=== PATIENT | male | born 1970 | race Caucasian/White ===

== ENCOUNTER 2022-11-14 11:43 | Outpatient (OUT) | payer BC, SELFPAY ==
--- NOTE | 2022-11-14 12:08 | XR_ITS ---
The [address] [address] Patient Name: ELYSSA DAVIS MRN: [id number] date: 1970 Sex: M Assigned Patient Location: LAB Current Patient Location: LAB Accession/Order Number: [id number] Exam Date: 11/14/2022 12:12 Report Date: 11/14/2022 14:52 At the request of: KONRAD JUNE Procedure: XR abdomen 1V EXAM: XR abdomen 1V HISTORY: Kidney Stone N20.0 COMPARISON: None. TECHNIQUE: AP view of the abdomen. FINDINGS: Nonobstructive bowel gas pattern is noted. There is a 10 mm calculus projecting over the left kidney region. The osseous structures are intact. IMPRESSION: Nonobstructive bowel gas pattern. Probable left nephrolithiasis. Electronically authenticated by: HARSH WALKER Date: 11/14/2022 14:52
[2022-11-14 14:24] LABS: Calcium 8.6 mg/dL (8.5-10.1); Carbon Dioxide 28.7 mmol/L (21.0-32.0); Chloride 103 mmol/L (98-107); Estimated GFR (African America >60 (>=60); Estimated GFR (Non-African Ame >60 (>=60); Potassium 4.5 mmol/L (3.5-5.1); Sodium 139 mmol/L (136-145)
[2022-11-15 12:09] LABS: PTH, Intact 40 pg/mL (15-65)
== END 2022-11-14 11:44 ==
LOC: LAB 11:46
PROVIDERS: PCP Internal Medicine; Visit Provider Urology
DX: N20.0 Calculus of kidney (principal)
CPT/HCPCS: 36415; 74018; 82310; 82374; 82435; 82565; 83970; 84132; 84295; 84520; 84550

== ENCOUNTER 2022-12-12 22:38 | Emergency (ER) | payer BC, SELFPAY ==
[2022-12-12] VITALS (7 sets, daily range): BP systolic 157–178; BP diastolic 88–103; PULSE 73–86; RESP 16–21; TEMP 36.6; O2SAT 94–97; BMI 41.5
--- NOTE | 2022-12-12 23:42 | ED.DIZZY1 ---
HPI - Dizziness General Chief Complaint: Dizziness Stated Complaint: DIZZY Time Seen by Provider: 12/12/22 23:37 Source: patient Mode of arrival: ambulance Limitations: no limitations History of Present Illness HPI Narrative: sudden onset spinning sensation around 9pm. When it did not go away after an hour or so, his partner later decided to have the patient come to the ED by ambulance and he arrived around 1035pm to our facility. He has some nausea. He keeps his eyes closed because the sensation of spinning is worse when his eyes are open. No recent injury to the head. No recent URI symptoms. He has never had vertigo or dizziness this intesne Related Data Home Medications Medication Instructions Recorded Confirmed carvedilol 25 mg tablet 25 mg PO Q12H 12/12/22 12/12/22 semaglutide 2 mg/dose (8 mg/3 mL) 2 mg subcut .weekly 12/12/22 12/12/22 subcutaneous pen injector (Ozempic) Allergies Allergy/AdvReac Type Severity Reaction Status Date / Time No Known Drug Allergies Allergy Verified 12/12/22 22:42 [facility] Social History Smoking status: Never smoker Exam Narrative Exam Narrative: Nurses notes and vital signs reviewed and patient is not hypoxic. afebrile General: Well-appearing and in no apparent distress. Skin: Warm, dry, no pallor noted. No rash. Head: Normocephalic, atraumatic. Neck: Supple, non-tender. Eye: Pupils are equal, round and EOMI. Horizontal nystagmus noted. Ears, Nose, Mouth, and Throat: TM are clear, no nasal mucosal hypertrophy. Oral mucosa is moist, no posterior oropharynx erythema, uvula is mid-line Cardiovascular: Regular Rate and Rhythm without murmur, gallop or rub. Respiratory: No accessory muscle use or respiratory distress. Lungs are clear to auscultation, no wheezing, rales or rhonchi Musculoskeletal: normal ROM, no calf or popliteal tenderness, no lower extremity edema/swelling GI: Abdomen is soft, non-distended. Normal bowel sounds. No tenderness to palpation. No rebound, guarding, or rigidity noted. Neurological: A&O x4. No cranial nerve dysfunction observed. Mild truncal ataxia. Moves all extremities. Sensation intact. NIH score is ZERO Psychiatric: Cooperative and interactive. Normal mood and affect. Constitutional Vital Signs - 24 hr 12/12/22 22:39 12/12/22 23:19 12/12/22 23:20 Temperature 97.9 F Pulse Rate 78 79 Pulse Rate [Monitor] 86 Respiratory Rate 16 21 Blood Pressure Blood Pressure [Left Arm] 160/103 H Pulse Oximetry 97 95 95 Oxygen Delivery Method Room Air 12/12/22 23:28 12/12/22 23:29 12/12/22 23:30 Temperature Pulse Rate 76 86 74 Pulse Rate [Monitor] Respiratory Rate Blood Pressure 178/101 H 170/100 H Blood Pressure [Left Arm] Pulse Oximetry 96 96 96 Oxygen Delivery Method 12/12/22 23:45 12/13/22 00:00 12/13/22 00:00 Temperature Pulse Rate 73 72 74 Pulse Rate [Monitor] Respiratory Rate Blood Pressure 157/88 H 152/89 H 152/89 H Blood Pressure [Left Arm] Pulse Oximetry 94 L 96 95 Oxygen Delivery Method 12/13/22 00:15 12/13/22 00:30 12/13/22 00:45 Temperature Pulse Rate 78 77 Pulse Rate [Monitor] Respiratory Rate Blood Pressure 144/85 H 144/88 H 149/84 H Blood Pressure [Left Arm] Pulse Oximetry 96 94 L Oxygen Delivery Method 12/13/22 00:45 12/13/22 01:02 12/13/22 01:10 Temperature Pulse Rate 82 74 Pulse Rate [Monitor] Respiratory Rate Blood Pressure 149/84 H Blood Pressure [Left Arm] Pulse Oximetry 95 95 Oxygen Delivery Method 12/13/22 01:15 12/13/22 01:15 12/13/22 01:15 Temperature Pulse Rate 80 72 107 H Pulse Rate [Monitor] Respiratory Rate Blood Pressure 161/89 H 161/89 H Blood Pressure [Left Arm] Pulse Oximetry 94 L 95 98 Oxygen Delivery Method 12/13/22 01:30 12/13/22 02:01 12/13/22 02:10 Temperature Pulse Rate 85 82 Pulse Rate [Monitor] Respiratory Rate Blood Pressure 176/102 H Blood Pressure [Left Arm] Pulse Oximetry 95 96 Oxygen Delivery Method 12/13/22 02:15 12/13/22 02:16 12/13/22 02:31 Temperature Pulse Rate 77 73 78 Pulse Rate [Monitor] Respiratory Rate Blood Pressure 162/89 H 160/94 H Blood Pressure [Left Arm] Pulse Oximetry 96 96 95 Oxygen Delivery Method Course Vital Signs Vital signs: Vital Signs Temperature 97.9 F 12/12/22 22:39 Pulse Rate 86 12/12/22 22:39 Respiratory Rate 16 12/12/22 22:39 Blood Pressure 160/103 H 12/12/22 22:39 Pulse Oximetry 97 12/12/22 22:39 Oxygen Delivery Method Room Air 12/12/22 22:39 Temperature 97.9 F 12/12/22 22:39 Pulse Rate 78 12/13/22 02:31 Respiratory Rate 21 12/12/22 23:19 Blood Pressure 160/94 H 12/13/22 02:31 Pulse Oximetry 95 12/13/22 02:31 Oxygen Delivery Method Room Air 12/12/22 22:39 MDM - Dizziness MDM Narrative Medical decision making narrative: The patient presented with acute onset of vertigo - intense sensation of spinning that began around 9 PM tonight. Exam showed horizontal nystagmus. He had no neurological deficit. Patient was placed on cardiac nurse and EKG obtained. Blood drawn and sent for evaluation. he was ordered to receive IV Valium, IV Solu-Medrol and IV Zofran. he developed a headache and was sent for CT scanning of the brain. The initial treatment with Valium, Solu-Medrol and Zofran had no effect. He was ordered to receive IV Dilaudid and IV Toradol. The radiologist called to tell me that he noted an area suggestive of an acute left superior cerebellar infarct. call was placed to the stroke team at [facility]. case was discussed with Dr. Lo. he reviewed the non contrast head CT and asked if we could get CT angio head and neck on this patient. Patient and his partner informed of our findings and my discussion with [facility] stroke physician. Phenergan given for nausea when it returned around 0130 CTA head and neck were performed and the same radiologist called to tell me that the patient has a dissection of the left vertebral artery. Call placed once again to the stroke team at [facility] to share this finding. I once again spoke with Dr Raymundo and he reviewed the CT scans. He accepted the patient to be transferred to their facility. he asked that we load the patient with aspirin 325mg and plavix 300mg. . Lab Data Attestation: I reviewed the patient's lab results. Labs: Lab Results 12/12/22 Range/Units 23:16 WBC 11.8 H (4.0-11.0) 10^3/uL RBC 5.21 (4.70-6.10) 10^6/uL Hgb 14.3 (14.0-18.0) g/dL Hct 45.9 (42.0-54.0) % MCV 88.1 (80.0-94.0) fL MCH 27.4 (25.9-34.0) pg MCHC 31.2 (29.9-35.2) g/dL RDW 13.4 (11.0-15.0) % Plt Count 272 (150-450) 10^3/uL MPV 10.0 (9.5-13.5) fL Neut % (Auto) 83.6 H (43.0-75.0) % Lymph % (Auto) 11.6 L (20.5-60.0) % [place] % (Auto) 4.0 (1.7-12.0) % Eos % (Auto) 0.3 L (0.9-7.0) % Baso % (Auto) 0.2 (0.2-2.0) % Neut # (Auto) 9.9 H (1.4-6.5) 10^3/uL Lymph # (Auto) 1.4 (1.2-3.8) 10^3/uL [place] # (Auto) 0.5 (0.3-0.8) 10^3/uL Eos # (Auto) 0.0 (0.0-0.7) 10^3/uL Baso # (Auto) 0.0 (0.0-0.1) 10^3/uL Abs Immat Gran (auto) 0.03 (0.00-0.03) 10^3/uL Imm/Tot Granulo (auto) 0.3 (0.0-0.5) % Sodium 138 (136-145) mmol/L Potassium 4.6 (3.5-5.1) mmol/L Chloride 108 H (98-107) mmol/L Carbon Dioxide 25.1 (21.0-32.0) mmol/L Anion Gap 9.5 BUN 15.0 (7.0-18.0) mg/dL Creatinine 1.09 (0.70-1.30) mg/dL Est GFR ( Amer) >60 (>=60) Est GFR (Non-Af Amer) >60 (>=60) BUN/Creatinine Ratio 13.8 Glucose 140 H (74-106) mg/dL Calcium 9.0 (8.5-10.1) mg/dL Total Bilirubin 0.3 (0.2-1.0) mg/dL AST 18 (15-37) U/L ALT 22 (16-63) U/L Alkaline Phosphatase 92 (46-116) U/L Total Protein 7.7 (6.4-8.2) g/dL Albumin 3.7 (3.4-5.0) g/dL Globulin 4.0 g/dL Albumin/Globulin Ratio 0.[address] scan - head: Attestation: I have reviewed the pertinent imaging results. Radiologist's impression: Patient Name: ELYSSA DAVIS MRN: [id number] date: 1970 Sex: M Assigned Patient Location: ER Current Patient Location: ER Accession/Order Number: [id number] Exam Date: 12/13/2022 00:54 Report Date: 12/13/2022 01:15 At the request of: WALT SILVA Procedure: CT head/brain wo con INDICATION: 52 years old; Male. Vertigo and headache for 2 hours. TECHNIQUE: CT Head (ax/cor/sag reformats). Ionizing radiation dose reduced via iterative reconstruction/FBP blend and body size kV/mA adjustment. Comparison: None FINDINGS: POSTOPERATIVE CHANGES: None. BRAIN PARENCHYMA: There is low-density present in the left cerebellum in the distal localized mass effect is seen. No midline shift or herniation is seen. Normal royal/white differentiation. VENTRICLES/EXTRA-AXIAL SPACES: Normal for patient's age. SINUSES/MASTOIDS: The visualized sinuses are clear. Mastoid air cells are clear. MSK: No displaced or depressed calvarial fracture is noted. OTHER: No hyperdense intraluminal thrombus is seen. IMPRESSION: 1. Low-density in the distribution of the left superior cerebellar artery. The appearance is consistent with an area of acute infarction. Recommend further evaluation with MRI including diffusion imaging for confirmation. A telephone call regarding the findings in examination was made to and acknowledged by Dr. Silva in the emergency department at 1:10 AM on 12/13/2022. Electronically authenticated by: CHAPO ALCANTARA Date: 12/13/2022 01:15 cta head: Radiologist's impression: Patient Name: ELYSSA DAVIS MRN: [id number] date: 1970 Sex: M Assigned Patient Location: ER Current Patient Location: Accession/Order Number: [id number] Exam Date: 12/13/2022 01:40 Report Date: 12/13/2022 02:46 At the request of: WALT SILVA Procedure: CT angio head CT angio head, CT angio neck INDICATION:52 years old; left superior cerebellar artery infarct TECHNIQUE: CT angiogram of the head and neck was performed. Coronal, sagittal and 3-D reformats were created and reviewed. IV contrast Omnipaque 350 100mL. No complications . Carotid stenosis measurements were made according to the NASCET criteria. Ionizing radiation dose reduced via iterative reconstruction/FBP blend and body size kV/mA adjustment. COMPARISON: Noncontrast head CT performed prior to this examination. There are artifacts which obscure visualization of the origins of the vessels from the arch as well as the proximal portions of the carotid and vertebral arteries. Distal intracranial opacification is suboptimal. FINDINGS: NECK FINDINGS: AORTIC ARCH: Normal origin of the innominate, left common carotid and left subclavian arteries. ANTERIOR CIRCULATION: The carotid arteries are patent. Carotid bifurcations are patent. Cervical ICA are patent up to the skull base. No stenosis or thrombus is seen. No dissection is noted. POSTERIOR CIRCULATION: The left vertebral artery appears to arise directly from the aortic arch. The vessel demonstrates incomplete opacification with areas of occlusion and reconstitution throughout the V1, V2, and V3 segments. This finding is consistent with carotid dissection. The distal V3 segment and V4 segments are occluded. Allowing for artifacts, there is question of focal stenosis of the origin of the right vertebral artery. However, the distal V1, V2, and V3 segments are patent. DEVELOPMENTAL ANOMALIES: None. OTHER: No thyroid nodule or adenopathy. HEAD BRAIN: Please see the report of the noncontrast head CT demonstrating the left superior cerebellar artery infarct. ANTERIOR CIRCULATION: The intrapetrous, intracavernous, supraclinoid ICA are patent. CHRIS patent bilaterally. MCA patent bilaterally. No stenosis or thrombus. No aneurysm. No large vessel occlusion. Distal distributions are bilaterally symmetric. POSTERIOR CIRCULATION: Proximal left V4 segment is occluded. There is reconstitution in the distal V4 segment, consistent with retrograde filling. However, the left PICA is nonopacified. The right V4 segment is patent. Right PICA patent. Basilar artery and basilar tip are patent. SCA patent on the right. There is visualization of the proximal ICA on the left, however this appears distally occluded. P2 segments are patent. There is hypoplasia of the P1 segment on the left with additional filling from the ipsilateral posterior communicating artery. The peak CCA appear patent bilaterally. However, distal opacification is suboptimal. DEVELOPMENTAL ANOMALIES: Hypoplastic P1 segment on the left with increased contribution to the left posterior communicating artery. OTHER: The superior cerebellar artery infarct on the left is better visualized in the noncontrast study. No pathologic enhancement is seen. IMPRESSION: 1. Left vertebral artery arises directly from the aortic arch. There is evidence of dissection with intermittent opacification and occlusion of the left vertebral artery extracranially extending into the V4 segment proximally. There is contrast within the distal V4 segment on the left, most consistent with retrograde filling. Left PICA is nonvisualized. Allowing for artifacts, question stenosis origin right vertebral artery. 3. Left SCA is filled proximally but occluded distally. 4. Anterior circulation is patent. A telephone call regarding the findings in examination was made to and acknowledged by Dr. Silva in emergency department at 2:45 AM on 12/13/2022. Electronically authenticated by: CHAPO ALCANTARA Date: 12/13/2022 02:46 ECG Data Interpretation: EKG interpretation: Emergency Department physician interpretation. Normal sinus rhythm at 72bpm. Normal axis, normal intervals and no ST segment elevation or depression. Normal EKG Critical Care Time Critical Care Time Critical Care Time: Yes Total Critical Care Time: 55 Attestation: spent independent of any procedures and includes time reviewing results, talking with the radiologist, stroke team, patient and significant other and monitoring the patient's condition. Discharge Plan Discharge Chief Complaint: Dizziness Clinical Impression: Vertebral artery dissection, Vertigo, Cerebrovascular accident Patient Disposition: [facility] Time of Disposition Decision: 02:52 Discharge Location: [facility]
[2022-12-12 23:51] LABS: Basophils Percent Auto 0.2 % (0.2-2.0); Eosinophils Percent Auto 0.3 % (0.9-7.0); Hematocrit 45.9 % (42.0-54.0); Hemoglobin 14.3 g/dL (14.0-18.0); Immature Granulocytes Abs Auto 0.03 10^3/uL (0.00-0.03); Immature Granulocytes Pct Auto 0.3 % (0.0-0.5); Lymphocytes Absolute Auto 1.4 10^3/uL (1.2-3.8); Lymphocytes Percent Auto 11.6 % (20.5-60.0); Mean Corpuscular HGB Conc 31.2 g/dL (29.9-35.2); Mean Corpuscular Hemoglobin 27.4 pg (25.9-34.0); Mean Corpuscular Volume 88.1 fL (80.0-94.0); Monocytes Absolute Auto 0.5 10^3/uL (0.3-0.8); Neutrophils Absolute Auto 9.9 10^3/uL (1.4-6.5); Neutrophils Percent Auto 83.6 % (43.0-75.0); Platelet Count 272 10^3/uL (150-450); Red Blood Count 5.21 10^6/uL (4.70-6.10); Red Cell Distribution Width 13.4 % (11.0-15.0); White Blood Count 11.8 10^3/uL (4.0-11.0)
[2022-12-12 23:57] LABS: Alanine Aminotransferase 22 U/L (16-63); Albumin Globulin Ratio 0.9; Albumin Level 3.7 g/dL (3.4-5.0); Alkaline Phosphatase 92 U/L (46-116); Anion Gap 9.5; Aspartate Amino Transferase 18 U/L (15-37); BUN Creatinine Ratio 13.8; Bilirubin Total 0.3 mg/dL (0.2-1.0); Carbon Dioxide 25.1 mmol/L (21.0-32.0); Chloride 108 mmol/L (98-107); Estimated GFR (African America >60 (>=60); Estimated GFR (Non-African Ame >60 (>=60); Glucose 140 mg/dL (74-106); Potassium 4.6 mmol/L (3.5-5.1); Sodium 138 mmol/L (136-145); Total Protein 7.7 g/dL (6.4-8.2)
[2022-12-13] VITALS (40 sets, daily range): BP systolic 132–180; BP diastolic 84–126; PULSE 72–107; RESP 17–24; O2SAT 90–98
[2022-12-13] MEDS: DIAZEPAM 5 MG/ML - 2 ML INJ SYRINGE 2 MG IV (00:02)
[2022-12-13] MEDS: METHYLPREDNISOLONE SOD SUCC PF 125 MG/2 ML VIAL IVP (00:02)
[2022-12-13] MEDS: ONDANSETRON PF 4 MG/2 ML VIAL IV ×2 (00:02→07:23)
--- NOTE | 2022-12-13 00:33 | CT_ITS ---
The [address] [address] Patient Name: ELYSSA DAVIS MRN: [id number] date: 1970 Sex: M Assigned Patient Location: ER Current Patient Location: ER Accession/Order Number: [id number] Exam Date: 12/13/2022 00:54 Report Date: 12/13/2022 01:15 At the request of: WALT SILVA Procedure: CT head/brain wo con INDICATION: 52 years old; Male. Vertigo and headache for 2 hours. TECHNIQUE: CT Head (ax/cor/sag reformats). Ionizing radiation dose reduced via iterative reconstruction/FBP blend and body size kV/mA adjustment. Comparison: None FINDINGS: POSTOPERATIVE CHANGES: None. BRAIN PARENCHYMA: There is low-density present in the left cerebellum in the distal localized mass effect is seen. No midline shift or herniation is seen. Normal royal/white differentiation. VENTRICLES/EXTRA-AXIAL SPACES: Normal for patient's age. SINUSES/MASTOIDS: The visualized sinuses are clear. Mastoid air cells are clear. MSK: No displaced or depressed calvarial fracture is noted. OTHER: No hyperdense intraluminal thrombus is seen. IMPRESSION: 1. Low-density in the distribution of the left superior cerebellar artery. The appearance is consistent with an area of acute infarction. Recommend further evaluation with MRI including diffusion imaging for confirmation. A telephone call regarding the findings in examination was made to and acknowledged by Dr. Silva in the emergency department at 1:10 AM on 12/13/2022. Electronically authenticated by: CHAPO ALCANTARA Date: 12/13/2022 01:15
[2022-12-13] MEDS: KETOROLAC TROMETHAMINE 30 MG/ML VIAL IVP (00:48)
[2022-12-13] MEDS: HYDROMORPHONE HCL 2 MG/ML VIAL 1 MG IV ×2 (00:50→07:23)
--- NOTE | 2022-12-13 01:25 | CT_ITS ---
The [address] [address] Patient Name: ELYSSA DAVIS MRN: [id number] date: 1970 Sex: M Assigned Patient Location: ER Current Patient Location: Accession/Order Number: [id number] Exam Date: 12/13/2022 01:40 Report Date: 12/13/2022 02:46 At the request of: WALT ESPINOSA Procedure: CT angio head CT angio head, CT angio neck INDICATION:52 years old; left superior cerebellar artery infarct TECHNIQUE: CT angiogram of the head and neck was performed. Coronal, sagittal and 3-D reformats were created and reviewed. IV contrast Omnipaque 350 100mL. No complications . Carotid stenosis measurements were made according to the NASCET criteria. Ionizing radiation dose reduced via iterative reconstruction/FBP blend and body size kV/mA adjustment. COMPARISON: Noncontrast head CT performed prior to this examination. There are artifacts which obscure visualization of the origins of the vessels from the arch as well as the proximal portions of the carotid and vertebral arteries. Distal intracranial opacification is suboptimal. FINDINGS: NECK FINDINGS: AORTIC ARCH: Normal origin of the innominate, left common carotid and left subclavian arteries. ANTERIOR CIRCULATION: The carotid arteries are patent. Carotid bifurcations are patent. Cervical ICA are patent up to the skull base. No stenosis or thrombus is seen. No dissection is noted. POSTERIOR CIRCULATION: The left vertebral artery appears to arise directly from the aortic arch. The vessel demonstrates incomplete opacification with areas of occlusion and reconstitution throughout the V1, V2, and V3 segments. This finding is consistent with carotid dissection. The distal V3 segment and V4 segments are occluded. Allowing for artifacts, there is question of focal stenosis of the origin of the right vertebral artery. However, the distal V1, V2, and V3 segments are patent. DEVELOPMENTAL ANOMALIES: None. OTHER: No thyroid nodule or adenopathy. HEAD BRAIN: Please see the report of the noncontrast head CT demonstrating the left superior cerebellar artery infarct. ANTERIOR CIRCULATION: The intrapetrous, intracavernous, supraclinoid ICA are patent. CHRIS patent bilaterally. MCA patent bilaterally. No stenosis or thrombus. No aneurysm. No large vessel occlusion. Distal distributions are bilaterally symmetric. POSTERIOR CIRCULATION: Proximal left V4 segment is occluded. There is reconstitution in the distal V4 segment, consistent with retrograde filling. However, the left PICA is nonopacified. The right V4 segment is patent. Right PICA patent. Basilar artery and basilar tip are patent. SCA patent on the right. There is visualization of the proximal ICA on the left, however this appears distally occluded. P2 segments are patent. There is hypoplasia of the P1 segment on the left with additional filling from the ipsilateral posterior communicating artery. The peak CCA appear patent bilaterally. However, distal opacification is suboptimal. DEVELOPMENTAL ANOMALIES: Hypoplastic P1 segment on the left with increased contribution to the left posterior communicating artery. OTHER: The superior cerebellar artery infarct on the left is better visualized in the noncontrast study. No pathologic enhancement is seen. IMPRESSION: 1. Left vertebral artery arises directly from the aortic arch. There is evidence of dissection with intermittent opacification and occlusion of the left vertebral artery extracranially extending into the V4 segment proximally. There is contrast within the distal V4 segment on the left, most consistent with retrograde filling. Left PICA is nonvisualized. Allowing for artifacts, question stenosis origin right vertebral artery. 3. Left SCA is filled proximally but occluded distally. 4. Anterior circulation is patent. A telephone call regarding the findings in examination was made to and acknowledged by Dr. Espinosa in emergency department at 2:45 AM on 12/13/2022. Electronically authenticated by: CHAPO ALCANTARA Date: 12/13/2022 02:46
--- NOTE | 2022-12-13 01:25 | CT_ITS ---
The [address] [address] Patient Name: ELYSSA DAVIS MRN: [id number] date: 1970 Sex: M Assigned Patient Location: ER Current Patient Location: Accession/Order Number: [id number] Exam Date: 12/13/2022 01:40 Report Date: 12/13/2022 02:46 At the request of: WALT ESPINOSA Procedure: CT angio neck CT angio head, CT angio neck INDICATION:52 years old; left superior cerebellar artery infarct TECHNIQUE: CT angiogram of the head and neck was performed. Coronal, sagittal and 3-D reformats were created and reviewed. IV contrast Omnipaque 350 100mL. No complications . Carotid stenosis measurements were made according to the NASCET criteria. Ionizing radiation dose reduced via iterative reconstruction/FBP blend and body size kV/mA adjustment. COMPARISON: Noncontrast head CT performed prior to this examination. There are artifacts which obscure visualization of the origins of the vessels from the arch as well as the proximal portions of the carotid and vertebral arteries. Distal intracranial opacification is suboptimal. FINDINGS: NECK FINDINGS: AORTIC ARCH: Normal origin of the innominate, left common carotid and left subclavian arteries. ANTERIOR CIRCULATION: The carotid arteries are patent. Carotid bifurcations are patent. Cervical ICA are patent up to the skull base. No stenosis or thrombus is seen. No dissection is noted. POSTERIOR CIRCULATION: The left vertebral artery appears to arise directly from the aortic arch. The vessel demonstrates incomplete opacification with areas of occlusion and reconstitution throughout the V1, V2, and V3 segments. This finding is consistent with carotid dissection. The distal V3 segment and V4 segments are occluded. Allowing for artifacts, there is question of focal stenosis of the origin of the right vertebral artery. However, the distal V1, V2, and V3 segments are patent. DEVELOPMENTAL ANOMALIES: None. OTHER: No thyroid nodule or adenopathy. HEAD BRAIN: Please see the report of the noncontrast head CT demonstrating the left superior cerebellar artery infarct. ANTERIOR CIRCULATION: The intrapetrous, intracavernous, supraclinoid ICA are patent. CHRIS patent bilaterally. MCA patent bilaterally. No stenosis or thrombus. No aneurysm. No large vessel occlusion. Distal distributions are bilaterally symmetric. POSTERIOR CIRCULATION: Proximal left V4 segment is occluded. There is reconstitution in the distal V4 segment, consistent with retrograde filling. However, the left PICA is nonopacified. The right V4 segment is patent. Right PICA patent. Basilar artery and basilar tip are patent. SCA patent on the right. There is visualization of the proximal ICA on the left, however this appears distally occluded. P2 segments are patent. There is hypoplasia of the P1 segment on the left with additional filling from the ipsilateral posterior communicating artery. The peak CCA appear patent bilaterally. However, distal opacification is suboptimal. DEVELOPMENTAL ANOMALIES: Hypoplastic P1 segment on the left with increased contribution to the left posterior communicating artery. OTHER: The superior cerebellar artery infarct on the left is better visualized in the noncontrast study. No pathologic enhancement is seen. IMPRESSION: 1. Left vertebral artery arises directly from the aortic arch. There is evidence of dissection with intermittent opacification and occlusion of the left vertebral artery extracranially extending into the V4 segment proximally. There is contrast within the distal V4 segment on the left, most consistent with retrograde filling. Left PICA is nonvisualized. Allowing for artifacts, question stenosis origin right vertebral artery. 3. Left SCA is filled proximally but occluded distally. 4. Anterior circulation is patent. A telephone call regarding the findings in examination was made to and acknowledged by Dr. Espinosa in emergency department at 2:45 AM on 12/13/2022. Electronically authenticated by: CHAPO ALCANTARA Date: 12/13/2022 02:46
--- NOTE | 2022-12-13 01:28 | ECG_ITS ---
The 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
[2022-12-13] MEDS: PROMETHAZINE HCL 25 MG/ML VIAL IV ×2 (02:03→07:23)
[2022-12-13] MEDS: ASPIRIN 325 MG TABLET PO (03:02)
[2022-12-13] MEDS: CLOPIDOGREL BISULFATE 75 MG TABLET 300 MG PO (03:02)
[2022-12-13] MEDS: 0.9 % SODIUM CHLORIDE 50 ML 150 ML IV (07:25)
== END 2022-12-13 09:04 | disposition short-term general hospital (02) ==
PROVIDERS: Emergency Provider Emergency Medicine; PCP Internal Medicine
DX: I77.74 Dissection of vertebral artery (principal); I63.9 Cerebral infarction, unspecified; R42 Dizziness and giddiness; Z79.899 Other long term (current) drug therapy
CPT/HCPCS: 36415; 70450; 70496; 70498; 80053; 85025; 93005; 96374; 96375; 96376; 99285; J1170; J2930; Q9967

== ENCOUNTER 2023-02-07 14:45 | Emergency (ER) | payer BC, SELFPAY ==
[2023-02-07] VITALS (35 sets, daily range): BP systolic 145; BP diastolic 93; PULSE 70–88; RESP 16–22; TEMP 36.7; O2SAT 94–100; BMI 35.7
--- NOTE | 2023-02-07 14:52 | XR_ITS ---
The [address] [address] Patient Name: ELYSSA DAVIS MRN: [id number] date: 1970 Sex: M Assigned Patient Location: ED.MAIN Current Patient Location: ER Accession/Order Number: [id number] Exam Date: 02/07/2023 15:00 Report Date: 02/07/2023 15:19 At the request of: AMY ROGERS Procedure: XR chest 1V EXAMINATION: XR chest 1V 02/07/2023 12:17 PM PDT HISTORY: Right arm weakness TECHNIQUE: Single frontal view of the chest acquired. COMPARISONS: None. FINDINGS: Lines/tubes/other: Right-sided catheter passes beyond the most inferior extent of this radiograph. Heart and mediastinum: The heart and the mediastinum are within normal limits for technique. Bones: No acute osseous abnormality. Lungs: The lungs are clear. There is no evidence of pneumonia or pulmonary edema. Pleura: There is no significant pleural effusion or pneumothorax. Other: None. XR/XR chest 1V IMPRESSION: No acute cardiopulmonary abnormality. Electronically authenticated by: FLASH STONER Date: 02/07/2023 15:19
--- NOTE | 2023-02-07 14:52 | CT_ITS ---
The [address] [address] Patient Name: ELYSSA DAVIS MRN: [id number] date: 1970 Sex: M Assigned Patient Location: ER Current Patient Location: ER Accession/Order Number: [id number] Exam Date: 02/07/2023 15:00 Report Date: 02/07/2023 15:29 At the request of: AMY ROGERS Procedure: CT stroke head/brain wo con EXAM: CT stroke head/brain wo con HISTORY: right arm weakness COMPARISON: 12/13/2022 TECHNIQUE: Axial CT images were obtained of the head without intravenous contrast. Multiplanar reconstructions were performed. FINDINGS: In the interval since the recent prior exam, there are postoperative changes of a suboccipital craniectomy. This is complicated by an extra-axial fluid collection at the postoperative site measuring 7.3 x 5.3 cm. The craniocaudal dimension extends outside the field of view but measures at least 5 cm. There is no significant mass effect on the posterior fossa structures. Changes of chronic encephalomalacia has developed in the interval in bilateral cerebellar lobes, greater on the left than the right. A new ventriculostomy shunt is present from a right parietal approach with the tip positioned in the right lateral ventricle. The ventricles and sulci are normal in appearance. The paranasal sinuses and mastoid air cells are clear. CT/CT stroke head/brain wo con IMPRESSION: 1. No acute intracranial hemorrhage. 2. Interval postoperative changes of a suboccipital craniectomy complicated by an extra-axial fluid collection at the postoperative site, possibly due to a postoperative seroma or CSF leak. A superimposed infectious etiology is also possible. There is no significant mass effect on posterior fossa structures. Neurosurgical consultation is recommended. 3. Right-sided ventriculostomy shunt present. 4. Interval development of chronic encephalomalacia in bilateral cerebellar lobes, greater on the left than the right. Findings were reported to Dr. Barragan at 1527 hours on 02/07/2023 Electronically authenticated by: VIRAJ PINEDA Date: 02/07/2023 15:29
--- NOTE | 2023-02-07 14:52 | ECG_ITS ---
The [facility] Test Date: 2023-02-07 Pat Name: ELYSSA DAVIS Department: Room: - Gender: Male Chief Radiation Therapist: : 1970 Requested By: ARIE GARCIA Order Number: [id number] Reading MD: ARIE GARCIA Measurements Intervals [place] Rate: 82 P: 1 IN: 166 QRS: 47 QRSD: 86 T: 52 QT: 368 QTc: 407 Interpretive Statements 1100 Sinus rhythm 8102 Low QRS voltage in chest leads 9120 atypical ECG Compared to ECG 12/12/2022 23:19:24 Low QRS voltage now present Electronically Signed On 02-08-2023 7:10:42 EDT by ARIE GARCIA
--- NOTE | 2023-02-07 15:02 | ED.GENADUL1 ---
HPI - General Adult General Chief complaint: Neuro Symptoms/Deficit Stated complaint: R ARM WEAKNESS - SENT BY DR. GARCIA Time Seen by Provider: 02/07/23 14:52 Source: patient and family Mode of arrival: walk-in Limitations: no limitations History of Present Illness HPI narrative: patient is a 52-year-old male who presents to the emergency department for the evaluation of right upper extremity weakness for the last 7-10 days. 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 He was sent to [facility] [place], he had surgery for decompression and was recently discharged to [facility] rehab. He states shortly after getting rehab he noticed weakness in his right upper extremity when trying to lift his arm. He has headaches every day as well as nausea everyday associated with the headaches but denies any significant or more severe headaches today. He denies any lower extremity weakness. No other recent upper respiratory symptoms, vomiting. He denies any speech changes or visual changes today. His PCP saw him for regular follow-up and referred him to the Emergency Room due to the right upper extremity weakness. Related Data Home Medications Medication Instructions Recorded Confirmed carvedilol 25 mg tablet 25 mg PO Q12H 12/12/22 12/12/22 semaglutide 2 mg/dose (8 mg/3 mL) 2 mg subcut .weekly 12/12/22 12/12/22 subcutaneous pen injector (Ozempic) acetaminophen 500 mg capsule 500 mg PO Q4H PRN headache 02/07/23 02/07/23 apixaban 5 mg tablet (Eliquis) 5 mg PO BID 02/07/23 02/07/23 aspirin 81 mg tablet,delayed 81 mg PO DAILY 02/07/23 02/07/23 release (Adult Aspirin Regimen) atorvastatin 10 mg tablet 10 mg PO DAILY 02/07/23 02/07/23 carvedilol 6.25 mg tablet 6.25 mg PO BID 02/07/23 02/07/23 cyproheptadine 4 mg tablet 4 mg PO DAILY 02/07/23 02/07/23 melatonin 3 mg capsule 3 mg PO DAILY 02/07/23 02/07/23 ondansetron 4 mg disintegrating 4 mg PO Q6H PRN nausea 02/07/23 02/07/23 tablet polyethylene glycol 3350 17 17 g PO DAILY PRN constipation 02/07/23 02/07/23 gram/dose oral powder (Miralax) semaglutide 0.25 mg or 0.5 mg (2 0.25 mg subcut QWEEK 02/07/23 02/07/23 mg/3 mL) subcutaneous pen injector (Ozempic) tamsulosin 0.4 mg capsule 0.4 mg PO DAILY 02/07/23 02/07/23 venlafaxine 37.5 mg tablet 37.5 mg PO DAILY 02/07/23 02/07/23 Allergies Allergy/AdvReac Type Severity Reaction Status Date / Time No Known Drug Allergies Allergy Verified 02/07/23 14:55 Review of Systems ROS Constitutional Denies: fever or chills Eyes Denies: change in vision Cardiovascular Denies: chest pain Respiratory Denies: shortness of breath or cough Gastrointestinal Denies: nausea or vomiting Musculoskeletal Denies: back pain Integumentary/Breast Denies: rash Neurological Reports: headache Hematologic/Lymphatic Denies: easy bruising PFSH PFSH Social History Smoking status: Smoker, status unknown Exam Narrative Exam Narrative: Gen.: Awake, alert, in no distress Head: Normocephalic, atraumatic ENT: Moist mucous membranes Respiratory: No respiratory distress, lungs clear bilaterally Cardio: Regular rate and rhythm Extremities: mild deficit in strength with abduction and of the right upper extremity compared to the left, as well as with biceps flexion. Psych: Normal mood and affect Neuro:mild weakness of the right upper extremity with abduction and biceps flexion. 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 No speech changes or facial weakness. Skin: Warm, dry, intact Constitutional Vital Signs, click to edit/add: Last Vital Signs Temp 98.0 F 02/07/23 14:55 Pulse 83 02/07/23 14:55 Resp 16 02/07/23 15:16 BP 145/93 H 02/07/23 14:55 Pulse Ox 100 02/07/23 14:55 O2 Del Method Room Air 02/07/23 14:55 Course Vital Signs Vital signs: Vital Signs Temperature 98.0 F 02/07/23 14:55 Pulse Rate 83 02/07/23 14:55 Respiratory Rate 18 02/07/23 14:55 Blood Pressure 145/93 H 02/07/23 14:55 Pulse Oximetry 100 02/07/23 14:55 Oxygen Delivery Method Room Air 02/07/23 14:55 Temperature 98.0 F 02/07/23 14:55 Pulse Rate 83 02/07/23 14:55 Respiratory Rate 16 02/07/23 15:16 Blood Pressure 145/93 H 02/07/23 14:55 Pulse Oximetry 100 02/07/23 14:55 Oxygen Delivery Method Room Air 02/07/23 14:55 Medical Decision Making MDM Narrative Medical decision making narrative: on arrival the patient was sent for a stroke protocol CT of the brain without contrast, attending physician received a phone call from the radiologist stating that the patient has a large area in the occiput consistent with a postoperative seroma versus CSF leak. There is no herniation or mass effect noted. patient is resting comfortably in the emergency department. He declined any medication for pain or nausea. Lab studies were obtained. After CT resulted, [facility] [place] neurosurgery was contacted and Dr. Disla ([id number]) recommended the patient be admitted to [facility] [place] under Dr. Toussaint's service for further evaluation and treatment. Patient is agreeable to this disposition. He was reevaluated by attending physician at time of decision to transfer. Critical care time thirty-five minutes. Medical Records Medical records reviewed: Yes I reviewed the patient's medical records Lab Data Lab results reviewed: Yes I reviewed the patient's lab results Labs: Lab Results 02/07/23 Range/Units 15:11 WBC 6.2 (4.0-11.0) 10^3/uL RBC 4.75 (4.70-6.10) 10^6/uL Hgb 13.0 L (14.0-18.0) g/dL Hct 42.7 (42.0-54.0) % MCV 89.9 (80.0-94.0) fL MCH 27.4 (25.9-34.0) pg MCHC 30.4 (29.9-35.2) g/dL RDW 14.4 (11.0-15.0) % Plt Count 242 (150-450) 10^3/uL MPV 10.0 (9.5-13.5) fL Neut % (Auto) 54.0 (43.0-75.0) % Lymph % (Auto) 35.7 (20.5-60.0) % Pitt % (Auto) 7.7 (1.7-12.0) % Eos % (Auto) 1.8 (0.9-7.0) % Baso % (Auto) 0.5 (0.2-2.0) % Neut # (Auto) 3.4 (1.4-6.5) 10^3/uL Lymph # (Auto) 2.2 (1.2-3.8) 10^3/uL Pitt # (Auto) 0.5 (0.3-0.8) 10^3/uL Eos # (Auto) 0.1 (0.0-0.7) 10^3/uL Baso # (Auto) 0.0 (0.0-0.1) 10^3/uL Abs Immat Gran (auto) 0.02 (0.00-0.03) 10^3/uL Imm/Tot Granulo (auto) 0.3 (0.0-0.5) % PT 10.8 (9.0-11.6) sec INR 1.02 APTT 26.3 (22.3-36.2) sec Sodium 140 (136-145) mmol/L Potassium 3.8 (3.5-5.1) mmol/L Chloride 103 (98-107) mmol/L Carbon Dioxide 26.2 (21.0-32.0) mmol/L Anion Gap 14.6 BUN 14.0 (7.0-18.0) mg/dL Creatinine 0.71 (0.70-1.30) mg/dL Est GFR ( Amer) >60 (>=60) Est GFR (Non-Af Amer) >60 (>=60) BUN/Creatinine Ratio 19.7 Glucose 107 H (74-106) mg/dL Calcium 8.7 (8.5-10.1) mg/dL Total Bilirubin 0.6 (0.2-1.0) mg/dL AST 21 (15-37) U/L ALT 30 (16-63) U/L Alkaline Phosphatase 98 (46-116) U/L Troponin I High Sens 4.7 (4.0-76.1) pg/mL Total Protein 6.9 (6.4-8.2) g/dL Albumin 2.9 L (3.4-5.0) g/dL Globulin 4.0 g/dL Albumin/Globulin Ratio 0.[address] scan - head: Attestation: I have reviewed the pertinent imaging results. Radiologist's impression: Procedure: CT stroke head/brain wo con EXAM: CT stroke head/brain wo con HISTORY: right arm weakness COMPARISON: 12/13/2022 TECHNIQUE: Axial CT images were obtained of the head without intravenous contrast. Multiplanar reconstructions were performed. FINDINGS: In the interval since the recent prior exam, there are postoperative changes of a suboccipital craniectomy. This is complicated by an extra-axial fluid collection at the postoperative site measuring 7.3 x 5.3 cm. The craniocaudal dimension extends outside the field of view but measures at least 5 cm. There is no significant mass effect on the posterior fossa structures. Changes of chronic encephalomalacia has developed in the interval in bilateral cerebellar lobes, greater on the left than the right. A new ventriculostomy shunt is present from a right parietal approach with the tip positioned in the right lateral ventricle. The ventricles and sulci are normal in appearance. The paranasal sinuses and mastoid air cells are clear. IMPRESSION: 1. No acute intracranial hemorrhage. 2. Interval postoperative changes of a suboccipital craniectomy complicated by an extra-axial fluid collection at the postoperative site, possibly due to a postoperative seroma or CSF leak. A superimposed infectious etiology is also possible. There is no significant mass effect on posterior fossa structures. Neurosurgical consultation is recommended. 3. Right-sided ventriculostomy shunt present. 4. Interval development of chronic encephalomalacia in bilateral cerebellar lobes, greater on the left than the right. Findings were reported to Dr. Barragan at 1527 hours on 02/07/2023 Electronically authenticated by: VIRAJ PINEDA Date: 02/07/2023 15:29 Chest x-ray: Attestation: I have reviewed the pertinent imaging results. Radiologist's impression: Procedure: XR chest 1V EXAMINATION: XR chest 1V 02/07/2023 12:17 PM PDT HISTORY: Right arm weakness TECHNIQUE: Single frontal view of the chest acquired. COMPARISONS: None. FINDINGS: Lines/tubes/other: Right-sided catheter passes beyond the most inferior extent of this radiograph. Heart and mediastinum: The heart and the mediastinum are within normal limits for technique. Bones: No acute osseous abnormality. Lungs: The lungs are clear. There is no evidence of pneumonia or pulmonary edema. Pleura: There is no significant pleural effusion or pneumothorax. Other: None. IMPRESSION: No acute cardiopulmonary abnormality. Electronically authenticated by: FLASH STONER Date: 02/07/2023 15:19 ECG Data Attestation: I personally reviewed and interpreted this ECG as follows: (normal sinus rhythm at a rate of eighty-two, no acute ST elevation or ectopy. EKG reviewed by attending physician) Discharge Plan Discharge Chief Complaint: Neuro Symptoms/Deficit Clinical Impression: Right arm weakness, Postoperative seroma Patient Disposition: [facility] Time of Disposition Decision: 16:30 Discharge Location: [facility] Condition: Good Prescriptions / Home Meds: No Action carvedilol 25 mg tablet 25 mg PO Q12H Ozempic 2 mg/dose (8 mg/3 mL) pen injector 2 mg SUBCUT .weekly Eliquis 5 mg tablet 5 mg PO BID acetaminophen 500 mg capsule 500 mg PO Q4H PRN (Reason: headache) cyproheptadine 4 mg tablet 4 mg PO DAILY ondansetron 4 mg tablet,disintegrating 4 mg PO Q6H PRN (Reason: nausea) tamsulosin 0.4 mg capsule 0.4 mg PO DAILY venlafaxine 37.5 mg tablet 37.5 mg PO DAILY melatonin 3 mg capsule 3 mg PO DAILY Ozempic 0.25 mg or 0.5 mg (2 mg/3 mL) pen injector 0.25 mg subcut QWEEK Rx Instructions: for 4 weeks aspirin [Adult Aspirin Regimen] 81 mg tablet,delayed release (DR/EC) 81 mg PO DAILY polyethylene glycol 3350 [Miralax] 17 gram/dose powder 17 g PO DAILY PRN (Reason: constipation) atorvastatin 10 mg tablet 10 mg PO DAILY carvedilol 6.25 mg tablet 6.25 mg PO BID Rx Instructions: must administer with a meal/food Referrals: Awais Garcia DO [Primary Care Provider] - 1 week
[2023-02-07 15:21] LABS: Basophils Percent Auto 0.5 % (0.2-2.0); Eosinophils Absolute Auto 0.1 10^3/uL (0.0-0.7); Eosinophils Percent Auto 1.8 % (0.9-7.0); Hematocrit 42.7 % (42.0-54.0); Immature Granulocytes Abs Auto 0.02 10^3/uL (0.00-0.03); Immature Granulocytes Pct Auto 0.3 % (0.0-0.5); Lymphocytes Absolute Auto 2.2 10^3/uL (1.2-3.8); Lymphocytes Percent Auto 35.7 % (20.5-60.0); Mean Corpuscular HGB Conc 30.4 g/dL (29.9-35.2); Mean Corpuscular Hemoglobin 27.4 pg (25.9-34.0); Mean Corpuscular Volume 89.9 fL (80.0-94.0); Monocytes Absolute Auto 0.5 10^3/uL (0.3-0.8); Monocytes Percent Auto 7.7 % (1.7-12.0); Neutrophils Absolute Auto 3.4 10^3/uL (1.4-6.5); Platelet Count 242 10^3/uL (150-450); Red Blood Count 4.75 10^6/uL (4.70-6.10); Red Cell Distribution Width 14.4 % (11.0-15.0); White Blood Count 6.2 10^3/uL (4.0-11.0)
[2023-02-07 15:35] LABS: INR 1.02; Partial Thromboplastin Time 26.3 sec (22.3-36.2); Prothrombin Time 10.8 sec (9.0-11.6)
[2023-02-07 15:38] LABS: Alanine Aminotransferase 30 U/L (16-63); Albumin Globulin Ratio 0.7; Albumin Level 2.9 g/dL (3.4-5.0); Alkaline Phosphatase 98 U/L (46-116); Anion Gap 14.6; Aspartate Amino Transferase 21 U/L (15-37); BUN Creatinine Ratio 19.7; Bilirubin Total 0.6 mg/dL (0.2-1.0); Calcium 8.7 mg/dL (8.5-10.1); Carbon Dioxide 26.2 mmol/L (21.0-32.0); Chloride 103 mmol/L (98-107); Estimated GFR (African America >60 (>=60); Estimated GFR (Non-African Ame >60 (>=60); Glucose 107 mg/dL (74-106); Potassium 3.8 mmol/L (3.5-5.1); Sodium 140 mmol/L (136-145); Total Protein 6.9 g/dL (6.4-8.2); Troponin I High Sensitivity 4.7 pg/mL (4.0-76.1)
== END 2023-02-07 20:19 | disposition short-term general hospital (02) ==
PROVIDERS: Physician Assistant; Emergency Provider Emergency Medicine; PCP Internal Medicine
DX: G97.63 Postprocedural seroma of a nervous system organ or structure following a nervous system procedure (principal); R53.1 Weakness; Z79.82 Long term (current) use of aspirin; Z79.899 Other long term (current) drug therapy; Z86.73 Personal history of transient ischemic attack (TIA), and cerebral infarction without residual deficits; Z79.01 Long term (current) use of anticoagulants
CPT/HCPCS: 36415; 70450; 71045; 80053; 84484; 85025; 85610; 85730; 93005; 99285

== ENCOUNTER 2023-04-02 16:07 | Outpatient (RCR) | payer BC, SELFPAY | END 2023-04-28 15:18 | disposition home or self-care (01) | LOC: PT 16:07 | PROVIDERS: PCP Internal Medicine; Visit Provider Internal Medicine | DX: I63.9 Cerebral infarction, unspecified (principal) | CPT/HCPCS: 97110; 97112; 97161 ==

== ENCOUNTER 2023-04-05 08:00 | Outpatient (OUT) | payer BC, SELFPAY ==
[2023-04-05] MEDS: COVID VAC 23-24(12UP)MODERNA/PF 50 MCG/0.5 ML VIAL IM (14:30)
== END 2023-04-05 08:01 | disposition home or self-care (01) ==
LOC: VACCLI 05-25 08:02
PROVIDERS: PCP Internal Medicine; Visit Provider Internal Medicine
DX: Z23 Encounter for immunization (principal)
CPT/HCPCS: 91322

== ENCOUNTER 2023-05-22 11:18 | Outpatient (OUT) | payer BC, SELFPAY ==
--- NOTE | 2023-05-22 11:25 | CT_ITS ---
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 No acute intra-axial or extra hemorrhage. No midline shift. Right-sided shunt catheter with tip in the body of the right lateral ventricle present previously. Large fluid collection noted involving the posterior fossa in the midline at the level of the suboccipital craniotomy defect of CSF attenuation partially imaged measures 6 x 7.5 cm with large extracranial component present previously similar may relate to postoperative collection and may relate to pseudomeningocele. There is moderate mass effect on the right and left cerebellar hemispheres present previously The visualized paranasal sinuses are clear. The mastoid air cells are clear. The external and middle ear cavities are unremarkable CT/CT head/brain wo con IMPRESSION: No acute hemorrhage Shunt catheter unchanged Large CSF attenuating fluid collection noted at the suboccipital craniotomy site with large extra cranial component present previously may relate to the patient's pseudomeningocele. Electronically authenticated by: SAMANTHA JACKMAN Date: 05/22/2023 11:49
== END 2023-05-22 11:19 | disposition home or self-care (01) ==
LOC: RAD 11:21
PROVIDERS: PCP Internal Medicine
DX: G96.198 Other disorders of meninges, not elsewhere classified (principal); Z98.2 Presence of cerebrospinal fluid drainage device
CPT/HCPCS: 70450

== ENCOUNTER 2023-06-07 07:11 | Outpatient (OUT) | payer BC, SELFPAY ==
--- OUTSIDE RECORDS SUMMARY | 2023-06-07 07:16 | XMS_ITS | CCD ---
Author Name Unknown Address [address] [place] [address] Organization [facility] Care Team Providers Care Shirt Cleaner Name Role Phone AWAIS GARCIA Primary Care Physician Unavailable Primary Care Provider Awais Mccormack DO Primary Care Provider AWAIS GARCIA Primary Care Unavailable CYNTHIA BLACKWOOD Referring Unavailab deo COFFEY, HARSH Referring Unavailable KONRAD LILLY Referring Unavailable COFFEY, HARSH Attending Unavailable AWAIS GARCIA Primary Care Unavailable CYNTHIA BLACKWOOD Referring Unavailab AWAIS Gallego Primary Care Unavailable CYNTHIA BLACKWOOD Referring Unavailab deo COFFEY, HARSH Admitting Unavailable HUEY, HARSH Attending Unavailable AWAIS GARCIA Primary Care Unavailable GLNE KNIGHT Consulting Unavailable GLEN KNIGHT Admitting Unavailable JOSE, DR SARGENT Primary Care Unavailable GLEN KNIGHT Attending Unavailable JOSE, DR SARGENT Consulting Unavailable BALL, DR SARGENT Primary Care Unavailable BALL, DR SARGENT Admitting Unavailable BALL, DR SARGENT Attending Unavailable BALL, DR SARGENT Consulting Unavailable JOSE, DR SARGENT Primary Care Unavailable JOSE, DR SARGENT Admitting Unavailable JOSE, DR SARGENT Attending Unavailable KONRAD LILLY Consulting Unavailable KONRAD LILLY Admitting Unavailable KONRAD LILLY Attending Unavailable BALL, DR SARGENT Primary Care Unavailable ZIEBER, DR INÉS Ortega Consulting Unavailable HOY ., DR CHRISTIANSEN Attending Unavailable BALL, DR SARGENT Primary Care Unavailable HOY ., DR CHRISTIANSEN Admitting Unavailable HOY ., DR CHRISTIANSEN Consulting Unavailable JOSE, DR SARGENT Primary Care Unavailable BALL, DR SARGENT Admitting Unavailable BALL, DR SARGENT Attending Unavailable HAY ., DR GODOY Consulting Unavailable HAY ., DR GODOY Admitting Unavailable HAY ., DR GODOY Attending Unavailable JOSE, DR SARGENT Primary Care Unavailable KONRAD LILLY Procedure Practitioner Unavailab SHAIKH Kathrine Silva Admitting Unavailable BALL, DR SARGENT Primary Care Unavailable KONRAD LILLY Consulting Unavailable SHAIKH Kathrnie MCCARTHY Attending Unavailable BRIANA, DR INÉS Ortega Consulting Unavailable RICARDO Iqbal, DR GODOY Consulting Unavailable TERRANCE MARRERO Consulting Unavailable SHAIKH Kathrine MCCARTHY Consulting Unavailable PENNY, CHAPO Consulting Unavailable CHAPO TAYLOR Consulting Unavailable LEN AGUILAR Consulting Unavailable Awais Garcia Unavailable NO FAMILY, PHYSICIAN Primary Care Provider Unava ilable MD Srinivas Patricia Admit Provider MD Srinivas Patricia Attending Provider MD Ashely Torres Emergency Provider DO Awais Garcia Primary Care Provider Jolly Hay Other Provider Unavailable DO Megha Lacy Other Provider MD Inés Ly Other Provider DO Pawan Oates Other Provider Stan, ANP-BC Rita Other Provider DO Pilo Nieto Other Provider RADHA Terry M Other Provider KARLA Malloy-C Victorina Cheung Other Provider RADHA Wei-FIRST BREAKER FEEDER-C Kendal Hurt Other Provider SHELBY Avilez Other Provider Unavailable MD Gerardo Miranda Other Provider [phone] KARLA Pizano-Micheal Ortega Other Provider MD Derek Argueta F Other Provider MD Tony Fuentes Other Provider [phone] [facility] Batesh Other Provider UnavailMD Thom Jeff Other Provider KARLA Mckeon-Micheal Brady Other Provider [phone] MD Len Lopez Other Provider MD Bhavya Ferrer Other Provider Srinivas Patricia Admitting Unavailable Srinivas Patricia Attending Unavailable NO FAMILY, PHYSICIAN Primary Care Unavailable Jolly Hay Consulting Unavailable Megha Lacy Consulting Unavailable Inés Ly Consulting Unavailable Pawan Oates Consulting UnavailRita Betaty Consulting Unavailable Pilo Nieto Consulting Unavailable Suha Terry Consulting Unavailable Victorina Malloy Consulting Unavailable Kendal Wei Consulting Unavailable Vianey Avilez Consulting Unavailable Gerardo Miranda Consulting Unavailable Gracie Pizano Consulting Unavailable Derek Argueta Consulting Unavailable Tony Fuentes Consulting Unavailcésar e Clonch, Jaspal Consulting Unavailable Thom Zayas Consulting Unavailable Mike, Caitlyn Consulting Unavailable Len Lopez Consulting Unavailable Bhavya Ferrer Consulting Unavailable Awais Garcia Primary Care Unavailable Ashely Torres Admitting Unavailable Ashely Torres Attending Unavailable MARQUISE, DONNA Hurt Attending Unavailable MARQUISE, DONNA Hurt Attending Unavailable MARQUISE, DONNA Hurt Admitting Unavailable COOK, Konrad Jones Attending Unavailable COOK, Konrad P Referring Unavailable COOK, Konrad P Attending Unavailable COOK, Konrad P Attending Unavailable COOK, Konrad P Attending Unavailable COOK, Konrad P Referring Unavailable COOK, Konrad P Attending Unavailable COOK, Konrad P Admitting Unavailable COOK, Konrad P Admitting Unavailable COOK, Konrad P Attending Unavailable Allergies Allergy Classification Reported Allergen(s) Allergy Type Date of Onset Reaction(s) Facility (1 source) [facility]; Translations: [FEATHERS] Propensity to adverse reactions to drug (disorder) 2 [facility] Repository Medications Current Medications Medication Drug Class(es) Dates Sig (Normalized) Sig (Original) 3 ML semaglutide 1.34 MG/ML Pen Injector [Ozempic] (20 sources) Start: 06-14-2022 inject 1 mg by subcutaneous injection every week Ozempic (1 MG/DOSE) 4 MG/3ML 1 mg Subcutaneous weekly for 28 days Jun, Active inject 2 mg by subcu taneous injection every week Ozempic (1 MG/DOSE) 4 MG/3ML 2mg Subcutaneous weekly for 90 days Not-Taking inject 2 mg by subcu taneous injection every week Ozempic (1 MG/DOSE) 4 MG/3ML 2mg Subcutaneous weekly for 90 days Active Ozempic (1 MG/DO SE) 4 MG/3ML as directed Subcutaneous Not-Taking Acetaminophen (20 sources) Start: 02-20-2023 acetaminophen 500 mg Tab Start Date: 02/20/23 Status: Ordered Start: 01-23-2023 take 500 mg by mouth every four hours Acetaminophen Active 500 MG PO Q4H 180 January 23, 2023 12:00am take 1 capsule by mo uth every four hours Acetaminophen 500 MG 1 capsule as needed Orally every 4 hrs Not-Taking/PRN apixaban 5 mg oral tablet (20 sources) Factor Xa Inhibitor Start: 01-22-2023 Eliquis 5 mg oral tablet Start Date: 02/20/23 Status: Ordered Aspirin (20 sources) Platelet Aggregation Inhibitor, Nonsteroidal Anti-inflammatory Drug Start: 02-20-2023 Adult Aspirin Sta rt Date: 02/20/23 Status: Ordered Start: 01-03-2023 End: 01-23-2023 take 81 mg by mouth once daily in the morning Aspirin Active 81 MG PO Every morning January 23, 2023 3:06pm take 1 tablet by mouth once misty y Aspirin 81 81 MG 1 tablet Orally Once a day Active atorvastatin 10 mg oral tablet (20 sources) HMG-CoA Reductase Inhibitor Start: 02-20-2023 atorvastatin 10 mg T ab Start Date: 02/20/23 Status: Ordered Start: 01-03-2023 End: 01-23-2023 take 10 mg by mouth once daily at bedtime Atorvastatin Active 10 MG PO Daily at bedtime January 23, 2023 3:06pm bacitracin 0.5 unt/mg topica l ointment (15 sources) Start: 01-09-2023 End: 01-23-2023 Bacitracin Active 1 APPLIC TOPICAL Twice daily January 23, 2023 12:00am Bacitracin 500 U NIT/GM 1 application Externally twice a day Not-Taking/PRN carvedilol 6.25 mg oral tablet (20 sources) alpha-Adrenergic Melvin, beta-Adrenergic Melvin Start: 02-20-2023 carvedilol 6.25 mg Tab Start Date: 02/20/23 Status: Ordered Start: 01-03-2023 End: 01-23-2023 take 1 tablet by mouth every twelve hours at mealtime Carvedilol (Coreg) 6.25 mg Tablet Active 6.25 MG PO Q12H 60 30 January 23, 2023 3:06pm must administer with a meal/food Start: 04-12-2022 take 1 tablet by ghada th twice daily carvedilol 12.5 mg Tab 12.5 mg = 1 tab(s), Oral, BID Start Date: 04/12/22 Status: Ordered take 1 tablet by ghada every twelve hours Carvedilol 6.25 MG 1 tablet with food Orally Twice a day Active take 1 tablet by ghada th every twelve hours Carvedilol 25 MG 1 tablet with food Orally Twice a day for 90 days Active Comment on above: Take by mouth. Keflex (9 sources) Cephalosporin Antibacterial Start: 05-25-2022 Keflex Oral Start Date: 05/25/22 Status: Ordered Start: 05-12-2022 take 1 capsule by [facility] four times daily cephALEXin (KEFLEX) 500 mg capsule Take 1 capsule by mouth four times daily. 40 capsule 0 05/12/2022 Active Comment on above: Take 1 capsule by [facility] four times daily. cyproheptadine hydrochloride 4 mg oral tablet (20 sources) Start: 01-23-2023 cyproheptadine 4 mg Tab Start Date: 02/20/23 Status: Ordered Cardura (8 sources) alpha-Adrenergic Melvin Start: 08-26-2019 Cardura Oral, Daily Start Date: 08/26/19 Status: Ordered Melatonin (20 sources) Start: 02-20-2023 Melatonin Once a day (at bedtime) Start Date: 02/20/23 Status: Ordered Start: 01-03-2023 take 3 mg by mouth at bedtime Melatonin Active 3 MG PO Bedtime January 03, 2023 12:00am ondansetron 4 mg disintegrating oral tablet (20 sources) Serotonin-3 Receptor Antagonist Start: 05-22-2023 take 1 tablet by mouth every eight hours Ondansetron 4 MG 1 tablet on the tongue and allow to dissolve Orally tid for 30 days May, Active Start: 02-20-2023 ondansetron 4 mg Dis Tab Start Date: 02/20/23 Status: Ordered Start: 01-23-2023 take 4 mg by mouth e very six hours Ondansetron Active 4 MG PO Every 6 hours 30 January 23, 2023 12:00am Ondansetron HCl 4 MG 1 tablet SL twice daily as needed for nausea for 30 days Active take 1 tablet by ghada th every twenty-four hours Ondansetron 4 MG 1 tablet on the tongue and allow to dissolve Orally Once a day for 30 days Active oxybutynin chloride 5 mg oral tablet (12 sources) Cholinergic Muscarinic Antagonist Start: 04-12-2022 take 1 tablet by mouth three times daily as needed oxybutynin 5 mg Tab 5 mg = 1 tab(s), Oral, TID, PRN for urinary discomfort Start Date: 04/12/22 Status: Ordered Comment on above: Take by mouth. oxyCODONE (7 sources) Opioid Agonist Start: 05-25-2022 oxycodone Oral , Refills(s) 0 Start Date: 05/25/22 Status: Ordered polyethylene glycol 3350 28523 mg powder for oral solution (20 sources) Osmotic Laxative Start: 02-20-2023 take 1 g by mouth once daily Miralax 3350 17 gram packet gm, Oral, Daily Start Date: 02/20/23 Status: Ordered Start: 01-03-2023 End: 01-23-2023 Polyethylene Glycol 3350 (Mi ralax) 17 gram Powder In Packet Active 17 GM PO Daily January 23, 2023 3:06pm Ozempic (12 sources) Start: 04-12-2022 inject 0.5 mg by subcutaneous injection every week Ozempic 0.5 mg, SubCutaneous, qWeek Start Date: 04/12/22 Status: Ordered Start: 03-27-2022 OZEMPIC 0.25 m g or 0.5 mg(2 mg/1.5 mL) pen INJECT 0.5MG SUBCUTANEOUSLY WEEKLY 0 03/27/2022 Active Comment on above: INJECT 0.5MG SUBCUTA NEOUSLY WEEKLY Semaglutide (2 sources) Start: 01-04-20 Semaglutide (Ozempic) 0.25 mg or 0.5 mg (2 mg/3 mL) Pen Injector Active 0.5 MG SUBCUT every week January 03, 2023 12:00am tamsulosin hydrochloride 0.4 mg oral capsule (20 sources) alpha-Adrenergic Melvin Start: 01-24-20 take 0.4 mg by mouth at bedtime Tamsulosin Active 0.4 MG PO Bedtime January 23, 2023 12:00am Start: 05-25-2022 take 1 mg by mouth once daily tamsulosin mg, Oral, Daily Start Date: 05/25/22 Status: Ordered venlafaxine 37.5 mg oral tablet (20 sources) Serotonin and Norepinephrine Reuptake Inhibitor Start: 02-20-2023 venlafaxine 37.5 mg Tab Refills(s) 0 Start Date: 02/20/23 Status: Ordered Start: 01-23-2023 take 37.5 mg by mout h once daily Venlafaxine Active 37.5 MG PO Daily January 23, 2023 12:00am Vitamin D (7 sources) Start: 05-25-2022 Vitamin D Inte rnational_Unit, Oral, qWeek, Refills(s) 0 Start Date: 05/25/22 Status: Ordered Completed/Discontinued Medications Medication Drug Class(es) Dates Sig (Normalized) Sig (Original) amitriptyline hydrochloride 10 mg oral tablet (20 sources) Tricyclic Antidepressant Start: 01-03-2023 End: 01-23-2023 take 10 mg by mouth once daily at bedtime Amitriptyline Discontinued 10 MG PO Daily at bedtime January 03, 2023 12:00am January 23, 2023 3:07pm azithromycin 250 mg oral tablet (20 sources) Macrolide Antimicrobial Start: 02-10-2022 azithromycin (ZITHROMAX) 250 mg tablet Take by mouth as directed. TAKE 2 TABLETS BY MOUTH TODAY, THEN TAKE 1 TABLET DAILY FOR 4 DAYS 0 02/10/2022 Active Azithromycin 250 MG as directed Orally Not-Taking/PRN Comment on above: Take by mouth as dir ected. TAKE 2 TABLETS BY MOUTH TODAY, THEN TAKE 1 TABLET DAILY FOR 4 DAYS Bacitracin 500 UNIT/GM (7 sources) Bacitracin 500 U NIT/GM 1 application Externally twice a day Not-Taking Bacitracin 500 U NIT/GM 1 application Externally twice a day Active cefuroxime 500 mg oral tablet (4 sources) Cephalosporin Antibacterial Start: 03-30-2022 take 1 tablet by mouth every twelve hours cefUROXime (CEFTIN) 500 mg tablet Take 500 mg by mouth q 12 HR. 0 03/30/2022 Active Comment on above: Take 500 mg by mouth q 12 HR. cholecalciferol, vitamin D3, (VITAMIN D3 ORAL) (1 source) cholecalciferol, vitamin D3, (VITAMIN D3 ORAL) Take 5,000 Int'l Units/L by mouth once daily. 0 Active Comment on above: Take 5,000 Int'l Uni ts/L by mouth once daily. ciprofloxacin 500 mg oral tablet (5 sources) Quinolone Antimicrobial Start: 08-22-2019 ciprofloxacin HCl (CIPRO) 500 mg tablet Cipro 500 mg Tab See Instructions, Take 1 tab day prior to procedure and 1 tab day of procdure - afterwards, # 2 tab(s), Refills(s) 0, Pharmacy: [facility]/pharmacy #[id number] Start Date: 08/22/19 Status: Ordered 0 08/22/2019 Active Comment on above: Cipro 500 mg Tab See Instructions, Take 1 tab day prior to procedure and 1 tab day of procdure - afterwards, # 2 tab(s), Refills(s) 0, Pharmacy: [facility]/pharmacy #[id number] Start Date: 08/22/19 Status: Ordered docusate sodium 50 mg / sennosides, fpc 8.6 mg oral tablet (2 sources) Start: 01-03-2023 End: 01-23-2023 take 2 tablets by mouth twice daily Sennosides-Docusa te Sodium Discontinued 2 TAB-CAP PO Twice daily January 03, 2023 12:00am January 23, 2023 3:07pm nystatin [id number] unt/ml / triamcinolone acetonide 1 mg/ml topical cream (4 sources) Polyene Antifungal, Corticosteroid Start: 04-05-2022 nystatin-triamcin olone (MYCOLOG II) cream Apply to affected area twice daily. APPLY TO AFFECTED AREA 0 04/05/2022 Active Comment on above: Apply to affected ar ea twice daily. APPLY TO AFFECTED AREA ozempic (1 mg/dose) 4 mg/3ml solution pen-injector (3 sources) inject 2 mg by subcutaneous injection every week as needed Ozempic (1 MG/DOSE) 4 MG/3ML 2mg Subcutaneous weekly for 90 days Not-Taking/PRN tiZANidine 4 mg oral tablet (5 sources) Central alpha-2 Adrenergic Agonist Start: 01-30-2022 take 1 tablet by mouth at bedtime as needed tiZANidine (ZANAFLEX) 4 mg tablet TAKE 1/2 TO 1 TABLET BY MOUTH AT BEDTIME NEEDED 0 01/30/2022 Active take 0.5-1 tablets b y mouth once at bedtime as needed tiZANidine HCl 4 MG 1/2 - 1 tablet Orall y q HS as needed Active Comment on above: TAKE 1/2 TO 1 TABLET BY MOUTH AT BEDTIME NEEDED Problems Active Problems Problem Classification Problem Date Documented Date Episodic/Chronic Abdominal pain (20 sources) Left lower quadrant pain; Translations: [Left lower quadrant pain] Episodic Acute bronchitis (20 sources) Acute bronchitis; Translations: [Acute bronchitis, unspecified] Episodic Acute cerebrovascular disease (20 sources) Cerebellar infarction; Translations: [Cerebral infarction, unspecified] Onset: 01-04-20 23 01-04-2023 Chronic Administrative/social admission (5 sources) Other reduced mobility; Translations: [Impaired mobility and activities of daily living] Onset: 01-04-20 23 01-04-2023 Episodic Anxiety disorders (1 source) Anxiety disorder, unspecified; Translations: [ANXIETY DISORDER UNSPECIFIED] Onset: 05-28-20 Chronic Calculus of urinary tract (20 sources) Kidney stone; Translations: [Calculus of kidney] Onset: 04-11-20 Episodic Cardiac dysrhythmias (20 sources) Palpitations; Translations: [Tachycardia] Onset: 08-07-19 Episodic Conditions associated with dizziness or vertigo (3 sources) Dizziness; Translations: [Dizziness and giddiness] Onset: 01-04-20 23 01-14-2023 Episodic Diabetes mellitus with complications (20 sources) Type 2 diabetes mellitus; Translations: [Type 2 diabetes mellitus with hyperglycemia] Chronic Diabetes mellitus without complication (1 source) Type 2 diabetes mellitus without complications; Translations: [TYPE 2 DM WITHOUT COMPLICATIONS] Onset: 04-06-20 Chronic Diabetes mellitus without complication (20 sources) Prediabetes; Translations: [Prediabetes] Onset: 05-09-20 Episodic Disorders of lipid metabolism (20 sources) Hypercholesterolemia; Translations: [Pure hypercholesterolemia, unspecified] Chronic Essential hypertension (20 sources) Hypertensive disorder; Translations: [Essential hypertension] Onset: 04-06-20 22 08-26-2019 Chronic Genitourinary symptoms and ill-defined conditions (7 sources) Presence of urogenital implants; Translations: [Other postprocedural status] Onset: 05-09-20 Chronic Genitourinary symptoms and ill-defined conditions (20 sources) Abnormal urinalysis; Translations: [Unspecified abnormal findings in urine] Onset: 05-09-20 Episodic Hyperplasia of prostate (20 sources) Lower urinary tract symptoms due to benign prostatic hypertrophy; Translations: [Benign prostatic hyperplasia with lower urinary tract symptoms] Chronic Inflammatory conditions of male genital organs (20 sources) Acute prostatitis; Translations: [Acute prostatitis] Episodic Mood disorders (20 sources) Mild major depression, single episode; Translations: [Major depressive disorder, single episode, mild] Chronic Mycoses (20 sources) Candidal balanitis; Translations: [Candidal balanitis] Episodic Nausea and vomiting (5 sources) Nausea; Translations: [Nausea] Onset: 01-04-2001-14-2023 Episodic Occlusion or stenosis of precerebral arteries (20 sources) Stenosis of left vertebral artery; Translations: [Occlusion and stenosis of left vertebral artery] Chronic Open wounds of head; neck; and trunk (2 sources) Laceration - injury; Translations: [Laceration] 01-09-2023 Episodic Other aftercare (1 source) Other termite inspector (current) drug therapy; Translations: [OTH CHILD DEVELOPMENT CONSULTANT CURRENT DRUG THERAPY] Onset: 05-28-20 Episodic Other connective tissue disease (20 sources) Lateral epicondylitis; Translations: [Lateral epicondylitis, right elbow] Episodic Other connective tissue disease (1 source) Muscle weakness (generalized) Episodic Other diseases of bladder and urethra (5 sources) Spasm of bladder; Translations: [Other specified disorders of bladder] Onset: 05-09-20 Chronic Other diseases of bladder and urethra (1 source) Other specified disorders of bladder; Translations: [Bladder spasms] Onset: 05-09-20 Chronic Other diseases of bladder and urethra (8 sources) Urethral stricture 08-26-2019 Episodic Other gastrointestinal disorders (5 sources) History of bypass of stomach; Translations: [Bariatric surgery status] Onset: 05-09-20 Episodic Other gastrointestinal disorders (4 sources) Bariatric surgery status; Translations: [History of gastric bypass] Onset: 05-09-20 Episodic Other gastrointestinal disorders (20 sources) History of bariatric surgical procedure; Translations: [Bariatric surgery status] Episodic Other lower respiratory disease (1 source) Personal history of pneumonia (recurrent); Translations: [PERSONAL HX OF PNEUMONIA RECURRENT] Onset: 05-28-20 Episodic Other lower respiratory disease (20 sources) Cough; Translations: [Cough] Episodic Other nervous system disorders (2 sources) Hydrocephalus; Translations: [Hydrocephalus, unspecified] 01-04-2023 Chronic Other nervous system disorders (2 sources) Ventriculoperitoneal shunt in situ; Translations: [Presence of cerebrospinal fluid drainage device] 01-04-2023 Chronic Other nervous system disorders (3 sources) Hydrocephalus, unspecified; Translations: [Obstructive hydrocephalus] Onset: 01-04-20 23 01-03-2023 Chronic Other nervous system disorders (2 sources) Presence of cerebrospinal fluid drainage device; Translations: [Presence of cerebrospinal fluid drainage device] 01-03-2023 Chronic Other non-traumatic joint disorders (20 sources) Arthralgia of the pelvic region and thigh; Translations: [Pain in left hip] Episodic Other nutritional; endocrine; and metabolic disorders (6 sources) Body mass index 40+ - severely obese; Translations: [Body mass index (BMI) 40.0-44.9, adult] Onset: 05-09-20 Chronic Other nutritional; endocrine; and metabolic disorders (2 sources) Body mass index (BMI) 40.0-44.9, adult; Translations: [BMI 40.0-44.9, adult ([facility])] Onset: 04-06-20 Chronic Other nutritional; endocrine; and metabolic disorders (4 sources) Obesity, unspecified; Translations: [Obesity, unspecified] Onset: 04-06-2001-03-2023 Chronic Other nutritional; endocrine; and metabolic disorders (1 source) Morbid (severe) obesity due to excess calories; Translations: [MORBID SEVERE OBES D/T EXCESS SHANT] Onset: 01-26-20 Chronic Other nutritional; endocrine; and metabolic disorders (15 sources) Body mass index 30+ - obesity; Translations: [Obesity, unspecified] 01-04-2023 Chronic Other nutritional; endocrine; and metabolic disorders (13 sources) Severe obesity; Translations: [Morbid (severe) obesity due to excess calories] Chronic Other upper respiratory infections (20 sources) Bacterial sinusitis; Translations: [Chronic sinusitis, unspecified] Chronic Phlebitis; thrombophlebitis and thromboembolism (20 sources) Thrombophlebitis of superficial veins of lower extremity; Translations: [Phlebitis and thrombophlebitis of superficial vessels of right lower extremity] Onset: 01-04-2001-11-2023 Episodic Residual codes; unclassified (5 sources) Family history of renal stone; Translations: [Family history of disorders of kidney and ureter] Onset: 05-09-20 Episodic Residual codes; unclassified (1 source) Family history of disorders of kidney and ureter; Translations: [Family history of nephrolithiasis] Onset: 05-09-20 Episodic Residual codes; unclassified (20 sources) Tobacco user; Translations: [Tobacco use] Episodic Residual codes; unclassified (1 source) Other specified health status; Translations: [Other specified health status] Onset: 01-04-20 Episodic Spondylosis; intervertebral disc disorders; other back problems (20 sources) Other spondylosis with radiculopathy, lumbosacral region; Translations: [Cervical spondylosis without myelopathy] Onset: 01-26-20 Chronic Unclassified (4 sources) CONTACT W/AND (SUSP) EXPOS COVID-19; Translations: [CONTACT W/AND (SUSP) EXPOS COVID-19] Onset: 04-06-20 Unclassified (1 source) Laceration without foreign body of lip, initial encounter; Translations: [Laceration without foreign body of lip, initial encounter] Onset: 01-10-20 Urinary tract infections (8 sources) Urinary tract infectious disease; Translations: [Urinary tract infection, site not specified] Onset: 04-06-20 Episodic Varicose veins of lower extremity (20 sources) Pain co-occurrent and due to varicose veins of bilateral legs; Translations: [Varicose veins of bilateral lower extremities with pain] Episodic Past or Other Problems Problem Classification Problem Date Documented Da te Episodic/Chronic Acute and unspecified renal failure (1 source) Acute kidney failure, unspecified; Translations: [ACUTE KIDNEY FAILURE UNSPECIFIED] Onset: 04-06-2022 Episodic Other connective tissue disease (1 source) Pain in left leg; Translations: [PAIN IN LEFT LEG] Onset: 01-27-2022 Episodic Other screening for suspected conditions (not mental disorders or infectious disease) (1 source) Encounter for screening for malignant neoplasm of prostate; Translations: [ENC SCREEN MALIG NEOPLASM PROSTATE] Onset: 01-31-2022 Episodic Septicemia (except in labor) (3 sources) Sepsis, unspecified organism; Translations: [Other Gram-negative sepsis] Onset: 03-29-2022 Episodic Unclassified (1 source) CONTACT W/AND (SUSP) EXPOS COVID-19; Translations: [CONTACT W/AND (SUSP) EXPOS COVID-19] Onset: 07-21-2022 Viral infection (20 sources) Disease caused by 2019-nCoV; Translations: [COVID-19] Results Test Name Value Interpretation Reference Range [facility] Urineon 02-22-2023 Bacteria identified Cx Nom (U) Microbiology PROCEDURE: Urine Culture [R1] SOURCE: U CleanCatch BODY SITE: COLLECTED DATE/TIME: 02/20/2023 14:08 EDT RECEIVED DATE/TIME: 02/20/2023 19:51 EDT START DATE/TIME: 02/20/2023 19:51 EDT FREE TEXT SOURCE: DONNA RIVERA PA-C, PA-C, DONNA Hurt FINAL REPORTS Final Report [] Verified Date/Time: 02/22/2023 11:32 EDT >100,000 cfu/ml Klebsiella pneumoniae SUSCEPTIBILITY RESULTS LEGEND: S=Susceptible, N/R=Not Reported, Blank=Data not available, or drug not advisable or tested, I=Intermediate, ESBL=Extended spectrum beta-lactamase, R=Resistant, TFG=Thymidine-dependent strain, JOSHUA=Beta-lactamase positive, SAI=mcg/m;(mg/L), S*=Predicted susceptible interp, R*=Predicted resistant interp Klepne Antibiotic SAI Dilutn SAI Interp Amikacin <=16 S Ampicillin 16 R* Ampicillin/ <=8/4 S Sulbactam Aztreonam <=4 S Cefazolin <=2 S Cefepime <=2 S Cefoxitin <=8 S Ceftazidime <=1 S Ceftazidime/ <=8 S Avibactam Ceftriaxone <=1 S Ciprofloxacin <=1 S Ertapenem <=0.5 S Gentamicin <=4 S Levofloxacin <=2 S Meropenem <=1 S Nitrofurantoin <=32 S Piperacillin/ <=16 S Tazobactam Tetracycline <=4 S Tigecycline <=2 S Tobramycin <=4 S Trimethoprim/ <=2/38 S Sulfa Performing Locations R1: This test was performed at: [facility], [address] [place] [address], [id number] , , [facility] Comment on above: Performed By: #### 2 [id number] ####[place] [address] Ambulatory Visit Summaryon 0 02-20-2023 Ambulatory Visit Summary TARAS HAYWARD :1970 Visit Date:02/20/2023 Ambulatory Visit Instructions Your Diagnosis Urinary retention Kidney stone Gross hematuria Urinary tract infection Tests Performed Urnls Dip Stick Auto w/o Microscopy POC 30770 XR Abdomen 1 View -- Results Pending -- Please visit your patient portal for your results or contact your primary care physician. Your Care Team Attending Physician - DONNA RIVERA PA-C Primary Care Physician - AWAIS GARCIA DO This Is Your Medications List acetaminophen (acetaminophen 500 mg Tab) apixaban (Eliquis 5 mg oral tablet) aspirin (Adult Aspirin) atorvastatin (atorvastatin 10 mg Tab) carvedilol (carvedilol 12.5 mg Tab) carvedilol (carvedilol 6.25 mg Tab) cephalexin (Keflex) cyproheptadine (cyproheptadine 4 mg Tab) doxazosin (Cardura) ergocalciferol (Vitamin D) melatonin (Melatonin) ondansetron (ondansetron 4 mg Dis Tab) oxybutynin (oxybutynin 5 mg Tab) oxycodone polyethylene glycol 3350 (Miralax 3350 17 gram packet) semaglutide (Ozempic) tamsulosin venlafaxine (venlafaxine 37.5 mg Tab) Procedures Performed Cystoscopic removal of ureteric stent (08/26/2019), Cystoscope (08/20/2019), Gastric bypass operation, Gastric restrictive procedure, with gastric bypass for morbid obesity; with small intestine reconstruction to limit absorption, Hernia repair, Turbinectomy. Discharge Vitals Heart Rate (Peripheral) 88 Blood Pressure 124/78 Height 190 cm Height 75 in Weight 157 kg Weight 345.4 lb BMI 43.49 What to do next Scheduled Follow-Up Appointments Sunday 3:00 PM EST With: SLADE ALCALA, Konrad Jones Where: [facility] Patient Educationon 02-21-20 Patient Education Nephrology Dietary Guidelines to Help Prevent Kidney Stones Kidney stones are deposits of minerals and salts that form inside your kidneys. Your risk of developing kidney stones may be greater depending on your diet, your lifestyle, the medicines you take, and whether you have certain medical conditions. Most people can lower their chances of developing kidney stones by following the instructions below. Your dietitian may give you more specific instructions depending on your overall health and the type of kidney stones you tend to develop. What are tips for following this plan? Reading food labels ? Choose foods with no salt added or low-salt labels. Limit your salt (sodium) intake to less than 1,500 mg a day. ? Choose foods with calcium for each meal and snack. Try to eat about 300 mg of calcium at each meal. Foods that contain 200?500 mg of calcium a serving include: ? 8 oz (237 mL) of milk, oqvwvzn-rfqbjdzjjhgy-lctpw milk, and calcium-fortifiedfruit juice. Calcium-fortified means that calcium has been added to these drinks. ? 8 oz (237 mL) of kefir, yogurt, and soy yogurt. ? 4 oz (114 g) of tofu. ? 1 oz (28 g) of cheese. ? 1 cup (150 g) of dried figs. ? 1 cup (91 g) of cooked broccoli. ? One 3 oz (85 g) can of sardines or mackerel. Most people need 1,000?1,500 mg of calcium a day. Talk to your dietitian about how much calcium is recommended for you. Shopping ? Buy plenty of fresh fruits and vegetables. Most people do not need to avoid fruits and vegetables, even if these foods contain nutrients that may contribute to kidney stones. ? When shopping for convenience foods, choose: ? Whole pieces of fruit. ? Pre-made salads with dressing on the side. ? Low-fat fruit and yogurt smoothies. ? Avoid buying frozen meals or prepared deli foods. These can be high in sodium. ? Look for foods with live cultures, such as yogurt and kefir. ? Choose high-fiber grains, such as whole-wheat breads, oat bran, and wheat cereals. Cooking ? Do not add salt to food when cooking. Place a salt shaker on the table and allow each person to add his or her own salt to taste. ? Use vegetable protein, such as beans, textured vegetable protein (TVP), or tofu, instead of meat in pasta, casseroles, and soups. Meal planning ? Eat less salt, if told by your dietitian. To do this: ? Avoid eating processed or pre-made food. ? Avoid eating fast food. ? Eat less animal protein, including cheese, meat, poultry, or fish, if told by your dietitian. To do this: ? Limit the number of times you have meat, poultry, fish, or cheese each week. Eat a diet free of meat at least 2 days a week. ? Eat only one serving each day of meat, poultry, fish, or seafood. ? When you prepare animal protein, cut pieces into small portion sizes. For most meat and fish, one serving is about the size of the palm of your hand. ? Eat at least five servings of fresh fruits and vegetables each day. To do this: ? Keep fruits and vegetables on hand for snacks. ? Eat one piece of fruit or a handful of berries with breakfast. ? Have a salad and fruit at lunch. ? Have two kinds of vegetables at dinner. ? Limit foods that are high in a substance called oxalate. These include: ? Spinach (cooked), rhubarb, beets, sweet potatoes, and Turkmen chard. ? Peanuts. ? Potato chips, italian fries, and baked potatoes with skin on. ? Nuts and nut products. ? Chocolate. ? If you regularly take a diuretic medicine, make sure to eat at least 1 or 2 servings of fruits or vegetables that are high in potassium each day. These include: ? Avocado. ? Banana. ? [place], prune, carrot, or tomato juice. ? Baked potato. ? Cabbage. ? Beans and split peas. Lifestyle ? Drink enough fluid to keep your urine pale yellow. This is the most important thing you can do. Spread your fluid intake throughout the day. ? If you drink alcohol: ? Limit how much you use to: ? 0?1 drink a day for women who are not . ? 0?2 drinks a day for men. ? Be aware of how much alcohol is in your drink. In the [place] one drink equals one 12 oz bottle of beer (355 mL), one 5 oz glass of wine (148 mL), or one 1? oz glass of hard liquor (44 mL). ? Lose weight if told by your health care provider. Work with your dietitian to find an eating plan and weight loss strategies that work best for you. General information ? Talk to your health care provider and dietitian about taking daily supplements. You may be told the following depending on your health and the cause of your kidney stones: ? Not to take supplements with vitamin C. ? To take a calcium supplement. ? To take a daily probiotic supplement. ? To take other supplements such as magnesium, fish oil, or vitamin B6. ? Take kcyl-yvm-jokpfzt and prescription medicines only as told by your health care provider. These include supplements. What foods should I limit? Limit your in (more content not included)... Normal [facility] Urology Office/Clinic Noteon 02-20-2023 Urology Office/Clinic Note Chief Complaint F/U HPI Staff [facility] pt Last seen in our office 07/19/22 due to Urinary Retention, Kidney Stone, Gross Hematuria & UTI *No Urology Medications +C&S at time of last encounter 07/19/22 *>100k Klebsiella pneumoniae (contaminated) Tx'd w/Cipro 500mg BID x7days. worked well Metabolic work up & KUB ordered at that time to be completed for follow up w/[facility]. KUB 11/14/22 PTH 11/14/22 40 +C&S 01/11/23 *>100k Klebsiella pneumoniae UA 01/22/23 NEG C&S 01/22/23 *Mixed Skin contaminants CBC/CMP 01/22/23 *BUN 16 & Crea 1.04 Pt cancelled previous follow up w/[facility] (6m metabolic work up & KUB was scheduled 4m out, not 6) Pt was hospitalized in December due to stroke. Went into Urinary Retention (PVR +700ml) Initially CIC was started. Catheter inserted upon DC home. Per EMR message from 01/24/23. KML recommended pt to restart Tamsulosin therapy He didn't notice much difference taking this IPSS 1 TASH 5 PVR today 13 Dysuria: _denies Incomplete bladder emptying: denies Hematuria: ( Trace-Intact) on U/A today denies visible blood Frequency: once or twice a day Urgency: _denies Nocturia: denies Stream: denies hesitation, normal stream Leaking: denies Post void dripping: _denies Wearing pads/ Depends: denies Urge incontinence: denies Stress incontinence: denies Incontinence without Sensory Awareness: denies Abdominal pain: denies Flank pain: denies Sexual complaints: denies History of Present Illness staff HPI reviewed and agree. Review of Systems PHQ Score Initial Depression Screen Score: 0 no fever, chills, malaise, myalgia. no rash/lesions. no chest pain, palpitations, or SOB. no abdominal pain, nausea, vomiting. no unilateral calf swelling, redness, pain Physical Exam Vitals & Measurements HR: 88(Peripheral) BP: 124/78 HT: 75 in HT: 190 cm WT: 157 kg WT: 345.4 lb BMI: 43.49 General: nontoxic, NAD Mouth: moist mucosa Lungs: normal respiratory effort Cardio: regular rate, good distal perfusion Abdomen: nondistended, no suprapubic distention or tenderness, no CVA tenderness Skin: No rashes or suspicious lesions Assessment/Plan [facility] pt. 1. Urinary retention (R33.9: Retention of urine, unspecified) had retention episode following PCNL May 2022. had kramer for a few weeks. was on flomax for a bit but then dc'd it as he didn't notice difference in sx. Pt was hospitalized in December due to stroke. had another episode of retention (PVR +700ml). Initially CIC was started. Catheter inserted upon DC to rehab facility. was started on flomax. kramer dc'd mid january. has been voiding well since then. continues on the flomax. no bothersome side effects. IPSS 1, QOL 0. PVR 13cc -Continue Flomax Ordered: 00378 Measure Post Void residual urine and/or bladder capacity by US- non-imaging E&M of Est. Patient Moderate 30-39 Min 92356 Urnls Dip Stick Auto w/o Microscopy POC 14664 2. Urinary tract infection (N39.0: Urinary tract infection, site not specified) UA today shows leuks and nitrates. asx. -Will send urine for cx. Will call pt with results. Ordered: 70314 Measure Post Void residual urine and/or bladder capacity by US- non-imaging E&M of Est. Patient Moderate 30-39 Min 62919 Urnls Dip Stick Auto w/o Microscopy POC 00954 3. Kidney stone (N20.0: Calculus of kidney) S/p PCNL at [facility] on 05/22/[address] Coffey for 3cm R renal stone. KUB 11/14/22 - 10 mm calculus projecting over the Lt kidney region metabolic work-up ordered by [facility] in Jul 2022. visit postponed due to admission this summer/stroke. -complete metabolic workup & f/u w [facility] in 3 mos w repeat KUB Ordered: 10959 Measure Post Void residual urine and/or bladder capacity by US- non-imaging E&M of Est. Patient Moderate 30-39 Min 50807 Urnls Dip Stick Auto w/o Microscopy POC 89980 XR Abdomen 1 View Follow up in 3 mos w/[facility]. All questions/concerns were discussed. Pt to call the office if he encounters any issues prior. Pt acknowledges understanding. Follow-up With When Contact Information MARQUISE PAGE, DONNA Hurt, SANDRA In 3 months [address] [place] [address] Additional Instructions: w/[facility] Patient Education Dietary Guidelines to Help Prevent Kidney Stones I, Thelma Robertson, personally scribed for Donna Rivera PA-C on 02/20/2023 11:07:49. . Documentation recorded by the scriblicha Robertson accurately reflects the services(s) I performed and decisions made by me. Authenticated by Donna Rivera PA-C on 02/20/2023 11:16:28. Problem List/Past Medical History Ongoing Gross hematuria Hypertension Kidney stone Nephrolithiasis Other anterior urethral stricture, male Stroke Urinary retention Urinary tract infection Historical No qualifying data Procedure/Surgical History Cystoscopic removal of ureteric stent (08/26/2019), Cystoscope (08/20/2019), Gastric bypass operation, Gastric restrictive procedure, with (more content not included)... [facility] Comment on above: Result Comment: Elec tronically Signed By: DONNA RIVERA PA-C\.br\Date and Time Signed: 02/20/23 11:17 EDT\.br\Electronically Co-Signed By: Thelma Robertson\.br\Date and Time Co-Signed: 02/20/23 11:08 EDT Lab Reportson 02-06-2023 Lab Reports [id number]:127 [facility] Lab Reports [id number]:127 [facility] Lab Reportson 02-02-2023 Lab Reports [id number]:127 Normal [facility] US venous duplex LE RTon US venous duplex LE RT [facility] [place] [address] Ultrasound Report Signed Patient: Taras Hayward MR#: [id number] 56 : 1970 Acct:[id number] Age/Sex: 52 / M ADM Date: 01/03/23 Loc: Room: 7D5225-3 Type: ADM IN Attending Dr: Srinivas Patricia MD Ordering Provider: Srinivas Patricia MD Date of Service: 01/22/23 US/US venous duplex LE RT: interval h/o right pop DVT from 01/12 Copies to: Srinivas Patricia MD Right lower extremity venous duplex examination Indication for study: Follow-up right leg deep vein thrombosis PROCEDURE: Color-flow duplex scanning is used to interrogate the venous anatomy of the right lower extremity. The left common femoral vein shows good compressibility, color-flow, and augmentation. In the patient's right leg the common femoral vein and femoral vein show good compressibility and color flow. Portion of the popliteal vein distally shows diminished compression and partial color- flow. The calf veins and saphenous vein are compressible. US/US venous duplex LE RT IMPRESSION: This study demonstrates deep vein thrombosis in the right popliteal vein. Impression dictated by: Gerardo Miranda M.D.01/23/2023 5:00 PM Dictation Location: [place] [address] Tech: Rika Rodriguez Transcribed By: ADELA 01/23/23 1700 Dictated By: Gerardo Miranda MD 01/23/23 1658 Signed By: 01/23/23 1700 [facility] Automated erythrocytes count in urine sediment (number/area)Ordered By: Tisha Cardona on 01-22-2023 RBC Auto (Urine sed) [#/Area] 20-49 [HPF] 0-4 [facility] Automated leukocytes count i n urine sediment (number/area)Ordered By: Tisha Cardona on 01-22-2023 WBC Auto (Urine sed) [#/Area] 5-9 [HPF] 0-4 [facility] Automated urine sediment shant cium oxalate crystal count by microscopy (number/high powOrdered By: Tisha Cardona on 01-22-2023 Calcium oxalate crystals LM.HPF (Urine sed) [#/Area] Rare [HPF] [facility] Basic Metabolic Panelon 01-09 Anion gap [Moles/Vol] 10.6 mmol/L Normal 6.0-15.0 [facility] Comment on above: Performed By: #### C BC, BMP ####[facility] [place] [address] [place] Calcium [Mass/Vol] 9.3 mg/dL Normal 8.6-10.3 [facility] Comment on above: Performed By: #### C BC, BMP ####[place] [address] [place] [address] [place] Chloride [Moles/Vol] 98 mmol/L Normal 98-107 [facility] Comment on above: Performed By: #### C BC, BMP ####[place] [address] [place] [address] [place] CO2 [Moles/Vol] 29.2 mmol/L Normal 21.0-31.0 [facility] Comment on above: Performed By: #### C BC, BMP ####[place] [address] [place] [address] [place] Creatinine [Mass/Vol] 1.04 mg/dL Normal 0.70-1.30 [facility] Comment on above: Performed By: #### C BC, BMP ####[place] [address] [place] [address] [place] Creatinine Clr Calc Pharmacy 131.71 [facility] Comment on above: Result Comment: PERF ORMED BY: [facility] [address] [place] [id number] PATHOLOGIST [employer] DEVANG LEMONS M.D. Performed By: #### C BC, BMP ####[place] [address] [place] [address] [facility] GFR/1.73 sq M.predicted MDRD (S/P/Bld) [Vol rate/Area] mL/min/{1.73_m2} [facility] Comment on above: Performed By: #### C BC, BMP ####[place] [address] [place] [address] [place] Glucose [Mass/Vol] 147 mg/dL High 70-100 [facility] Comment on above: Result Comment: [place] Glucose Reference Range is dependent on time and content of last meal. Glucose of more than 200 mg/dL in a nonstressed, ambulatory subject supports the diagnosis of Diabetes Mellitus. ADA recommended reference range Performed By: #### C JEAN, BMP ####[facility] Potassium [Moles/Vol] 3.8 mmol/L Normal 3.5-5.1 [facility] Comment on above: Performed By: #### C JEAN, BMP ####[facility] Sodium [Moles/Vol] 134 mmol/L Low 136-145 [facility] Comment on above: Performed By: #### C JEAN, BMP ####[facility] Urea nitrogen [Mass/Vol] 16 mg/dL Normal 7-25 [facility] Comment on above: Performed By: #### C JEAN, BMP ####[facility] Basophils Auto (Bld) [#/Vol] Ordered By: Tisha Cardona on 01-22-2023 Basophils (Bld) [#/Vol] 0.0 10*3/uL 0.0-0.2 [facility] Basophils/100 WBC Auto (Bld) Ordered By: Tisha Cardona on 01-22-2023 Basophils/100 WBC (Bld) 0.3 % . [facility] Bilirubin Test strip Ql (U)O rdered By: Tisha Cardona on 01-22-2023 Bilirubin Ql (U) Negative Negative [facility] Calcium [Mass/volume] in Ser um or PlasmaOrdered By: Tisha Cardona on 01-22-2023 Calcium [Mass/Vol] 9.3 mg/dL 8.6-10.3 [facility] Carbon dioxide, total [Moles /volume] in Serum or PlasmaOrdered By: Tisha Cardnoa on 01-22-2023 CO2 [Moles/Vol] 29.2 mmol/L 21.0-31.0 [facility] Chloride [Moles/volume] in S geno or PlasmaOrdered By: Tisha Cardona on 01-22-2023 Chloride [Moles/Vol] 98 mmol/L 98-107 [facility] Color Auto (U)Ordered By: Hubert lorenz Jammieherbertbrodie on 01-22-2023 Color (U) [place] Yellow [facility] Complete Blood Count Auto Di ffon 01-22-2023 Basophils (Bld) [#/Vol] 0.0 10*3/uL Normal 0.0-0.2 [facility] Comment on above: Result Comment: PERF ORMED BY: [facility] [address] [place] [address] PATHOLOGIST [employer] DEVANG LEMONS M.D. Performed By: #### C JEAN, BMP ####[address] Basophils/100 WBC (Bld) 0.3 % Normal . [facility] Comment on above: Performed By: #### C JEAN, BMP ####[address] Eosinophils (Bld) [#/Vol] 0.2 10*3/uL Normal 0.0-0.45 [facility] Comment on above: Performed By: #### C JEAN, BMP ####[address] Eosinophils/100 WBC (Bld) 2.4 % Normal . [facility] Comment on above: Performed By: #### C JEAN, BMP ####[address] Erythrocyte distribution width (RBC) [Ratio] 14.8 % Normal 12.0-14.8 [facility] Comment on above: Performed By: #### C JEAN, BMP ####[address] Hematocrit (Bld) [Volume fraction] 42.6 % Normal 38.8-50.0 [facility] Comment on above: Performed By: #### C EJAN, BMP ####[address] Hemoglobin (Bld) [Mass/Vol] 13.8 g/dL Normal 13.0-17.0 [facility] Comment on above: Performed By: #### C JEAN, BMP ####[address] Lymphocytes (Bld) [#/Vol] 2.0 10*3/uL Normal 1.00-4.8 [facility] Comment on above: Performed By: #### C JEAN, BMP ####[address] Lymphocytes/100 WBC (Bld) 25.4 % Normal . [facility] Comment on above: Performed By: #### C JEAN, BMP ####[address] MCH (RBC) [Entitic mass] 27.8 pg Normal 27.5-35.2 [facility] Comment on above: Performed By: #### C JEAN, BMP ####[address] MCV (RBC) [Entitic vol] 85.7 fL Normal 83.5-101 [facility] Comment on above: Performed By: #### C JEAN, BMP ####[address] Mean Corpuscular HGB Conc 32.4 g/dL Low 32.5-35.6 [facility] Comment on above: Performed By: #### C JEAN, BMP ####[address] Monocytes (Bld) [#/Vol] 0.5 10*3/uL Normal 0.0-0.8 [facility] Comment on above: Performed By: #### Micheal PENA, BMP ####[address] Monocytes/100 WBC (Bld) 6.7 % Normal . [facility] Comment on above: Performed By: #### C JEAN, BMP ####[address] Neutrophils (Bld) [#/Vol] 5.2 10*3/uL Normal 1.8-7.7 [facility] Comment on above: Performed By: #### C JEAN, BMP ####[address] Neutrophils/100 WBC (Bld) 65.2 % Normal . [facility] Comment on above: Performed By: #### C JEAN, BMP ####[address] NRBC% 0.1 /100{WBC} Normal 0-0.5 [facility] Comment on above: Performed By: #### C JEAN, BMP ####[address] Platelet mean volume (Bld) [Entitic vol] 8.0 fL Normal 6.6-10.1 [facility] Comment on above: Performed By: #### Micheal PENA, BMP ####[address] Platelets (Bld) [#/Vol] 280 10*3/uL Normal 150-450 [facility] Comment on above: Performed By: #### C JEAN, BMP ####[address] RBC (Bld) [#/Vol] 4.97 10*6/uL Normal 3.90-5.60 [facility] Comment on above: Performed By: #### Micheal PENA, BMP ####[address] WBC (Bld) [#/Vol] 8.0 10*3/uL Normal 4.1-10.5 [facility] Comment on above: Performed By: #### Micheal PENA, BMP ####[address] Creatinine [Mass/volume] in Serum or PlasmaOrdered By: Tisha Cardona on 01-22-2023 Creatinine [Mass/Vol] 1.04 mg/dL 0.70-1.30 [facility] Dipstick and Microscopicon 0 8-14-2023 Appearance (U) Cloudy Critically abnormal Clear [facility] Comment on above: Order Comment: Name Collection Type:: Kramer Catheter Performed By: #### C UU, ADDONUAPLUS #### [facility] [address] [place] [address] [place] Bacteria,Urine Rare High None Seen [facility] Comment on above: Order Comment: Name Collection Type:: Kramer Catheter Performed By: #### C UU, ADDONUAPLUS #### [facility] [address] [place] [address] [place] Bilirubin,Urine Negative Normal Negative [facility] Comment on above: Order Comment: Name Collection Type:: Kramer Catheter Performed By: #### C UU, ADDONUAPLUS #### [facility] [address] [place] [address] [place] Calcium Oxalate Crystals,Urine Rare Normal [facility] Comment on above: Order Comment: Name Collection Type:: Kramer Catheter Performed By: #### C UU, ADDONUAPLUS #### [facility] [address] [place] [address] [place] Color (U) [place] Critically abnormal Yellow [facility] Comment on above: Order Comment: Name Collection Type:: Kramer Catheter Performed By: #### C UU, ADDONUAPLUS #### [facility] [address] [place] [address] [place] Glucose Ql (U) Normal Normal Normal [facility] Comment on above: Order Comment: Name Collection Type:: Kramer Catheter Performed By: #### C UU, ADDONUAPLUS #### [facility] [address] [place] [address] [place] Hyaline Casts,Urine None Seen Normal 0-8 [facility] Comment on above: Order Comment: Name Collection Type:: Kramer Catheter Performed By: #### C UU, ADDONUAPLUS #### [facility] [address] [place], [place] [id number] [place] Ketones Ql (U) Trace High Negative [facility] Comment on above: Order Comment: Name Collection Type:: Kramer Catheter Performed By: #### C UU, ADDONUAPLUS #### [facility] [address] [place] [address] Leukocyte esterase Test strip Ql (U) 2+ High Negative [facility] Comment on above: Order Comment: Name Collection Type:: Kramer Catheter Performed By: #### C UU, ADDONUAPLUS #### [facility] [address] [place] [address] [place] Nitrite,Urine Negative Normal Negative [facility] Comment on above: Order Comment: Name Collection Type:: Kramer Catheter Performed By: #### C UU, ADDONUAPLUS #### [address] Occult Blood,Urine 3+ High Negative [facility] Comment on above: Order Comment: Name Collection Type:: Kramer Catheter Result Comment: PERF ORMED BY: [place] [address] PATHOLOGIST [employer] MANAGER DEVANG LEMONS M.D. Performed By: #### C UU, ADDONUAPLUS #### [address] pH (U) 5.5 [pH] Normal 5.0-9.0 [facility] Comment on above: Order Comment: Name Collection Type:: Kramer Catheter Performed By: #### C UU, ADDONUAPLUS #### [facility] [address] [place] [address] Protein (U) [Mass/Vol] 100 mg/dL High Negative [facility] Comment on above: Order Comment: Name Collection Type:: Kramer Catheter Performed By: #### C UU, ADDONUAPLUS #### [facility] [address] [place] [address] [place] RBC,Urine 20-49 High 0-4 [facility] Comment on above: Order Comment: Name Collection Type:: Kramer Catheter Performed By: #### C UU, ADDONUAPLUS #### [place] [address] [place] Specificy [place],Urine 1.024 Normal 1.001-1.03 0 [facility] Comment on above: Order Comment: Name Collection Type:: Kramer Catheter Performed By: #### C UU, ADDONUAPLUS #### [facility] [address] [place] [address] Squamous Epithelial Cell,Urine None Seen Normal 0-2 [facility] Comment on above: Order Comment: Name Collection Type:: Kramer Catheter Performed By: #### C UU, ADDONUAPLUS #### [address] Urobilinogen,Urine Normal Normal Normal [facility] Comment on above: Order Comment: Name Collection Type:: Kramer Catheter Performed By: #### C UU, ADDONUAPLUS #### [address] WBC,Urine 5-9 High 0-4 [facility] Comment on above: Order Comment: Name Collection Type:: Kramer Catheter Performed By: #### C UU, ADDONUAPLUS #### [address] Yeast,Urine None Seen Normal None Seen [facility] Comment on above: Order Comment: Name Collection Type:: Kramer Catheter Result Comment: PERF ORMED BY: [place] [address] PATHOLOGIST [employer] MANAGER DEVANG LEMONS M.D. Performed By: #### C UU, ADDONUAPLUS #### [facility] [address] [place] [address] Eosinophils Auto (Bld) [#/Vo l]Ordered By: Tisha Cardona on 01-22-2023 Eosinophils (Bld) [#/Vol] 0.2 10*3/uL 0.0-0.45 [facility] Eosinophils/100 WBC Auto (Bl d)Ordered By: Tisha Cardona on 01-22-2023 Eosinophils/100 WBC (Bld) 2.4 % . [facility] Erythrocyte distribution wid th Auto (RBC) [Ratio]Ordered By: Tisha Cardona on 01-22-2023 Erythrocyte distribution width (RBC) [Ratio] 14.8 % 12.0-14.8 [facility] Glucose [Mass/volume] in Ser um or PlasmaOrdered By: Tisha Cardona on 01-22-2023 Glucose [Mass/Vol] 147 mg/dL 70-100 [facility] Comment on above: ADA recommended refe rence rangeRandom Glucose Reference Range is dependent on time and content of last meal. Glucose of more than 200 mg/dL in a nonstressed, ambulatory subject supports the diagnosis of Diabetes Mellitus. Hematocrit Auto (Bld) [Volum e fraction]Ordered By: Tisha Cardona on 01-22-2023 Hematocrit (Bld) [Volume fraction] 42.6 % 38.8-50.0 [facility] Hemoglobin [Mass/volume] in BloodOrdered By: Tisha Cardona on 01-22-2023 Hemoglobin (Bld) [Mass/Vol] 13.8 g/dL 13.0-17.0 [facility] Ketones Auto test strip (U) [Mass/Vol]Ordered By: Tisha Cardona on 01-22-2023 Ketones (U) [Mass/Vol] Trace Negative [facility] Laboratory - UrinalysisOrder ed By: Tisha Cardona on 01-22-2023 Hyaline casts LM Ql (Urine sed) None seen [LPF] 0-8 [facility] Leukocytes [#/volume] correc jose ramon for nucleated erythrocytes in Blood by Automated counOrdered By: Tisha Cardona on 01-22-2023 WBC corrected for nucl RBC Auto (Bld) [#/Vol] 8.0 10*3/uL 4.1-10.5 [facility] Lymphocytes Auto (Bld) [#/Vo l]Ordered By: Tisha Cardona on 01-22-2023 Lymphocytes (Bld) [#/Vol] 2.0 10*3/uL 1.00-4.8 [facility] Lymphocytes/100 WBC Auto (Bl d)Ordered By: Tisha Cardona on 01-22-2023 Lymphocytes/100 WBC (Bld) 25.4 % . [facility] MCH Auto (RBC) [Entitic mass ]Ordered By: Tisha Cardona on 01-22-2023 MCH (RBC) [Entitic mass] 27.8 pg 27.5-35.2 [facility] MCHC Auto (RBC) [Mass/Vol]Or dered By: Tisha Cardona on 01-22-2023 MCHC (RBC) [Mass/Vol] 32.4 g/dL 32.5-35.6 [facility] MCV Auto (RBC) [Entitic vol] Ordered By: Tisha Cardona on 01-22-2023 MCV (RBC) [Entitic vol] 85.7 fL 83.5-101 [facility] Monocytes Auto (Bld) [#/Vol] Ordered By: Tisha Cardona on 01-22-2023 Monocytes (Bld) [#/Vol] 0.5 10*3/uL 0.0-0.8 [facility] Monocytes/100 WBC Auto (Bld) Ordered By: Tisha Cardona on 01-22-2023 Monocytes/100 WBC (Bld) 6.7 % . [facility] Neutrophils Auto (Bld) [#/Vo l]Ordered By: Tisha Cardona on 01-22-2023 Neutrophils (Bld) [#/Vol] 5.2 10*3/uL 1.8-7.7 [facility] Neutrophils/100 WBC Auto (Bl d)Ordered By: Tisha Cardona on 01-22-2023 Neutrophils/100 WBC (Bld) 65.2 % . [facility] Nitrite Test strip Ql (U)Ord ered By: Tisha Cardona on 01-22-2023 Nitrite Ql (U) Negative Negative [facility] No Panel InformationOrdered By: Tisha Cardona on 01-22-2023 Estimated GFR (CKD-EPI) > 60.0 mL/Min [facility] Creatinine Clearance (Chem 131.71 [facility] Nucleated erythrocytes [Pres ence] in Blood by Automated countOrdered By: Tisha Cardona on 01-22-2023 Nucleated RBC Auto Ql (Bld) 0.1 /100{WBC} 0-0.5 [facility] Platelet mean volume Auto (B ld) [Entitic vol]Ordered By: Tisha Cardona on 01-22-2023 Platelet mean volume (Bld) [Entitic vol] 8.0 fL 6.6-10.1 [facility] Platelets Auto (Bld) [#/Vol] Ordered By: Tisha Cardona on 01-22-2023 Platelets (Bld) [#/Vol] 280 10*3/uL 150-450 [facility] Potassium [Moles/volume] in Serum or PlasmaOrdered By: Tisha Cardona on 01-22-2023 Potassium [Moles/Vol] 3.8 mmol/L 3.5-5.1 [facility] Protein Auto test strip (U) [Mass/Vol]Ordered By: Tisha Cardona on 01-22-2023 Protein (U) [Mass/Vol] 100 mg/dL Negative [facility] RBC Auto (Bld) [#/Vol]Ordere d By: Tisha Cardona on 01-22-2023 RBC (Bld) [#/Vol] 4.97 10*6/uL 3.90-5.60 [facility] Serum or plasma anion gap de terminationOrdered By: Tisha Cardona on 01-22-2023 Anion gap [Moles/Vol] 10.6 mmol/L 6.0-15.0 [facility] Sodium [Moles/volume] in Ser um or PlasmaOrdered By: Tisha Cardona on 01-22-2023 Sodium [Moles/Vol] 134 mmol/L 136-145 [facility] Specific gravity Auto test s trip (U) [Rel density]Ordered By: Tisha Cardona on 01-22-2023 Specific gravity (U) [Rel density] 1.024 1.001-1.03 0 [facility] Squamous epithelial cells de tection in urine sediment by light microscopyOrdered By: Tisha Cardona on 01-22-2023 Epithelial cells.squamous LM Ql (Urine sed) None seen [HPF] 0-2 [facility] Urea nitrogen [Mass/volume] in Serum or PlasmaOrdered By: Tisha Cardona on 01-22-2023 Urea nitrogen [Mass/Vol] 16 mg/dL 7-25 [facility] Urine Cultureon 01-22-2023 Bacteria identified Cx Nom (U) <9,000 colonies/ml mixed bacterial skin contaminants 2 Days PERFORMED BY: [place] [address] PATHOLOGIST [employer] MANAGER DEVANG LEMONS M.D. Normal [facility] Comment on above: Performed By: #### C UU, NICK #### [address] Urine bacteria detection by automated methodOrdered By: Tisha Cardona on 01-22-2023 Bacteria Auto Ql (U) Rare None Seen [facility] Urine clarity by refractomet ry automatedOrdered By: Tisha Cardona on 01-22-2023 Clarity Refractometry automated (U) Cloudy Clear [facility] Urine culture routineOrdered By: Tisha Cardona on 01-22-2023 Bacteria identified Cx Nom (U) 2 Days [facility] Urine glucose measurement by automated test strip (mass/volume)Ordered By: Tisha Cardona on 01-22-2023 Glucose Auto test strip (U) [Mass/Vol] Normal mg/dL Normal [facility] Urine hemoglobin detection b y automated test stripOrdered By: Tisha Cardona on 01-22-2023 Hemoglobin Auto test strip Ql (U) 3+ Negative [facility] Urine leukocyte esterase det ection by automated test stripOrdered By: Tisha Cardona on 01-22-2023 Leukocyte esterase Auto test strip Ql (U) 2+ Negative [facility] Urobilinogen Auto test strip (U) [Mass/Vol]Ordered By: Tisha Cardona on 01-22-2023 Urobilinogen (U) [Mass/Vol] Normal mg/dL Normal [facility] WBC Auto (Bld) [#/Vol]Ordere d By: Tisha Cardona on 01-22-2023 WBC (Bld) [#/Vol] 8.0 10*3/uL 4.1-10.5 [facility] Yeast detection in urine sed iment by light microscopyOrdered By: Tisha Cardona on 01-22-2023 Yeast LM Ql (Urine sed) None seen [HPF] None Seen [facility] pH Auto test strip (U)Ordere d By: Tisha Cardona on 01-22-2023 pH (U) 5.5 [pH] 5.0-9.0 [facility] Basic Metabolic Panelon 01-09 Anion gap [Moles/Vol] 13.5 mmol/L Normal 6.0-15.0 [facility] Comment on above: Performed By: #### C BC, BMP ####[facility] [place] [address] [facility] Calcium [Mass/Vol] 8.8 mg/dL Normal 8.6-10.3 [facility] Comment on above: Performed By: #### C BC, BMP ####[place] [address] [place] [address] [facility] Chloride [Moles/Vol] 99 mmol/L Normal 98-107 [facility] Comment on above: Performed By: #### C BC, BMP ####[address] [place] [address] [facility] CO2 [Moles/Vol] 26.2 mmol/L Normal 21.0-31.0 [facility] Comment on above: Performed By: #### C BC, BMP ####[address] [place] [place] [address] [place] Creatinine [Mass/Vol] 1.02 mg/dL Normal 0.70-1.30 [facility] Comment on above: Performed By: #### C BC, BMP ####[address] [place] [place] [address] [place] Creatinine Clr Calc Pharmacy 135.51 [facility] Comment on above: Result Comment: PERF ORMED BY: [facility] [address] [place] [id number] PATHOLOGIST [employer] MANA[employer] DEVANG LEMONS M.D. Performed By: #### C BC, BMP ####[address] [place] [place] [address] [place] GFR/1.73 sq M.predicted MDRD (S/P/Bld) [Vol rate/Area] mL/min/{1.73_m2} [facility] Comment on above: Performed By: #### C BC, BMP ####[address] [place] [address] [facility] Glucose [Mass/Vol] 109 mg/dL High 70-100 [facility] Comment on above: Result Comment: [place] Glucose Reference Range is dependent on time and content of last meal. Glucose of more than 200 mg/dL in a nonstressed, ambulatory subject supports the diagnosis of Diabetes Mellitus. ADA recommended reference range Performed By: #### C BC, BMP ####[address] [place] [place] [address] [facility] Potassium [Moles/Vol] 3.7 mmol/L Normal 3.5-5.1 [facility] Comment on above: Performed By: #### C JEAN, BMP ####[address] Sodium [Moles/Vol] 135 mmol/L Low 136-145 [facility] Comment on above: Performed By: #### C JEAN, BMP ####[place] [id number] [facility] Urea nitrogen [Mass/Vol] 18 mg/dL Normal 7-25 [facility] Comment on above: Performed By: #### C JEAN, BMP ####[place] [id number] [facility] Complete Blood Count Auto Di ffon 01-19-2023 Basophils (Bld) [#/Vol] 0.0 10*3/uL Normal 0.0-0.2 [facility] Comment on above: Result Comment: PERF ORMED BY: [facility] [address] [address] PATHOLOGIST [employer]NAGER DEVANG LEMONS M.D. Performed By: #### C BC, BMP ####[place] [id number] [place] Basophils/100 WBC (Bld) 0.3 % Normal . [facility] Comment on above: Performed By: #### C BC, BMP ####[place] [id number] [place] Eosinophils (Bld) [#/Vol] 0.1 10*3/uL Normal 0.0-0.45 [facility] Comment on above: Performed By: #### C JEAN, BMP ####[address] Eosinophils/100 WBC (Bld) 1.2 % Normal . [facility] Comment on above: Performed By: #### C JEAN, BMP ####[address] Erythrocyte distribution width (RBC) [Ratio] 14.3 % Normal 12.0-14.8 [facility] Comment on above: Performed By: #### C JEAN, BMP ####[address] Hematocrit (Bld) [Volume fraction] 41.8 % Normal 38.8-50.0 [facility] Comment on above: Performed By: #### C JEAN, BMP ####[address] Hemoglobin (Bld) [Mass/Vol] 13.6 g/dL Normal 13.0-17.0 [facility] Comment on above: Performed By: #### C JEAN, BMP ####[address] Lymphocytes (Bld) [#/Vol] 3.2 10*3/uL Normal 1.00-4.8 [facility] Comment on above: Performed By: #### C JEAN, BMP ####[address] Lymphocytes/100 WBC (Bld) 36.1 % Normal . [facility] Comment on above: Performed By: #### C JEAN, BMP ####[address] MCH (RBC) [Entitic mass] 27.7 pg Normal 27.5-35.2 [facility] Comment on above: Performed By: #### C JEAN, BMP ####[address] MCV (RBC) [Entitic vol] 84.9 fL Normal 83.5-101 [facility] Comment on above: Performed By: #### C JEAN, BMP ####[address] Mean Corpuscular HGB Conc 32.6 g/dL Normal 32.5-35.6 [facility] Comment on above: Performed By: #### C JEAN, BMP ####[address] Monocytes (Bld) [#/Vol] 0.8 10*3/uL Normal 0.0-0.8 [facility] Comment on above: Performed By: #### C JEAN, BMP ####[address] Monocytes/100 WBC (Bld) 8.7 % Normal . [facility] Comment on above: Performed By: #### C JEAN, BMP ####[address] Neutrophils (Bld) [#/Vol] 4.7 10*3/uL Normal 1.8-7.7 [facility] Comment on above: Performed By: #### C JEAN, BMP ####[address] Neutrophils/100 WBC (Bld) 53.7 % Normal . [facility] Comment on above: Performed By: #### C JEAN, BMP ####[address] NRBC% 0.2 /100{WBC} Normal 0-0.5 [facility] Comment on above: Performed By: #### C JEAN, BMP ####[address] Platelet mean volume (Bld) [Entitic vol] 8.1 fL Normal 6.6-10.1 [facility] Comment on above: Performed By: #### C JEAN, BMP ####[address] Platelets (Bld) [#/Vol] 245 10*3/uL Normal 150-450 [facility] Comment on above: Performed By: #### C BC, BMP ####[facility] RBC (Bld) [#/Vol] 4.92 10*6/uL Normal 3.90-5.60 [facility] Comment on above: Performed By: #### C BC, BMP ####[facility] [place] [address] [facility] WBC (Bld) [#/Vol] 8.8 10*3/uL Normal 4.1-10.5 [facility] Comment on above: Performed By: #### C JEAN, BMP ####[facility] [place] [id number] [facility] MR head/brain wo conon 01-18 MR head/brain wo con [facility] [place] [address] [place] [address] MRI Report Signed Patient: Taras Hayward MR#: [id number] 56 : 1970 Acct:[id number] Age/Sex: 52 / M ADM Date: 01/03/23 Loc: Room: [address] [place] [address] Type: ADM IN Attending Dr: Srinivas Patricia MD Copies to: DO Srinivas Smith MD Ordering Provider: Pilo Nieto DO Date of Service: 01/18/23 MR/MR head/brain wo con: worsened dysarthria, hx cerebellar CVA, WINDOW GLASS CUTTER OFF shunt EXAMINATION: MRI OF THE BRAIN WITHOUT CONTRAST CLINICAL HISTORY: Dizziness, nausea, vomiting and headaches. History of recent left cerebellar infarct with surgical decompression and hydrocephalus with shunt placement. COMPARISON: CT 01/12/2023 and MRI 12/13/2022 TECHNIQUE: Multiecho, multiplanar imaging of the brain was performed without enhancement. An occipital craniectomy defect is present. There is a ventricular peritoneal shunt through a right posterior parietal approach with tip overlying the right lateral ventricle. This is stable from the prior CT exam though is new from the MRI. There is increased FLAIR signal around the shunt tubing which could be edema related to placement. The ventricles are within normal limits for size and position. There is mild patchy increased T2 and FLAIR signal within the periventricular and subcortical white matter which was present on the prior MRI and may be microvascular disease. There is developing encephalomalacia and gliosis involving the left cerebellum at the site of the infarct at the time of the comparison. There are no additional areas of abnormal signal intensity within the supra- or infratentorial brain. No developing restricted diffusion is identified to suggest a new infarct. There is no significant mass effect. The imaged paranasal sinuses and mastoid air cells are clear. MR/MR head/brain wo con IMPRESSION: POSTERIOR FOSSA CRANIOTOMY WITH UNDERLYING CEREBELLAR CHANGES WHICH ARE STABLE. RIGHT VENTRICULAR PERITONEAL SHUNT, SIMILAR IN POSITION TO THE RECENT CT. MINOR WHITE MATTER CHANGES SUGGESTING MICROVASCULAR DISEASE. Impression dictated by: Sharon Jordan M.D.01/18/2023 3:43 PM Dictation Location: [place] [address] Transcribed By: [facility] 01/18/23 1543 Dictated By: Sharon Jordan MD 01/18/23 1535 Signed By: 01/18/23 1543 Normal [facility] XR pre/post mri xrayon 01-18 XR pre/post mri xray [facility] [place] [address] [place] [address] XRay Report Signed Patient: Taras Hayward MR#: [id number] 56 : 1970 Acct:[id number] Age/Sex: 52 / M ADM Date: 01/03/23 Loc: Room: [address] [place] [address] Type: ADM IN Attending Dr: Srinivas Patricia MD Copies to: Srinivas Patricia MD Ordering Provider: Srinivas Patricia MD Date of Service: 01/18/23 XR/XR pre/post mri xray: SHUNT CHECK PRE-MRI CALVARIUM - 4 images CLINICAL DATA: Pre-MRI assessment in patient with WINDOW GLASS CUTTER OFF shunt. COMPARISON: CT 01/12/2023 AP and lateral views were obtained. There is a right-sided ventriculoperitoneal shunt through a posterior parietal approach. The visualized hardware appears intact. There is prior occipital craniectomy. There are no acute osseous abnormalities. The visualized paranasal sinuses appear clear. XR/XR pre/post mri xray IMPRESSION: RIGHT-SIDED VENTRICULOPERITONEAL SHUNT. Impression dictated by: Sharon Jordan M.D.01/18/2023 3:35 PM Dictation Location: [place] [address] Transcribed By: [facility] 01/18/231534 Dictated By: Sharon Jordan MD 01/18/231532 Signed By: 01/18/231534 Normal [facility] Nordiazepam [Mass/volume] in Serum or PlasmaOrdered By: Megha Lacy on 01-15-2023 Nordiazepam [Mass/Vol] <0.1 ug/mL . [facility] Comment on above: This test was develo ped and its performance characteristicsdetermined by [facility]. It has not been cleared orapproved by the Food and Drug Administration. Serum or plasma diazepam sourav surement (mass/volume)Ordered By: Megha Lacy on 01-15-2023 diazePAM [Mass/Vol] <0.1 ug/mL . [facility] Comment on above: This test was develo ped and its performance characteristicsdetermined by [facility]. It has not been cleared orapproved by the Food and Drug Administration. Valiumon 01-15-2023 Nordiazepam <0.1 Normal . [facility] Comment on above: Result Comment: This test was developed and its performance characteristics determined by [facility]. It has not been cleared or approved by the Food and Drug Administration. Performed By: #### V ALIUM ####[facility] , Total (Norton+Kanorado) <.2 Low 0.2-2.5 [facility] Comment on above: Result Comment: Dete ction Limit = 0.10 Performed at: [address] [id number] [employer]: Mandy Eid MD, Phone: [phone] PERFORMED BY: [facility] [address] [place] [address] PATHOLOGIST [employer] MANAGER DEVANG LEMONS M.D. Performed By: #### V ALIUM ####[facility] , Valium <0.1 Normal . [facility] Comment on above: Result Comment: This test was developed and its performance characteristics determined by [facility]. It has not been cleared or approved by the Food and Drug Administration. Performed By: #### V YANET ####[facility] , diazePAM+Nordiazepam [Mass/v olume] in Serum or PlasmaOrdered By: Megha Lacy on 01-15-2023 diazePAM+Nordiazepam [Mass/Vol] <.2 ug/mL 0.2-2.5 [facility] Comment on above: Detection Limit = 0. 10Performed at: [facility] [address] [id number] Director: Mandy Eid MD, Phone: [phone] Basic Metabolic Panelon Anion gap [Moles/Vol] 11.5 mmol/L Normal 6.0-15.0 [facility] Comment on above: Performed By: #### C BC, BMP #### [facility] [address] Calcium [Mass/Vol] 8.8 mg/dL Normal 8.6-10.3 [facility] Comment on above: Performed By: #### C BC, BMP #### [facility] [address] Chloride [Moles/Vol] 101 mmol/L Normal 98-107 [facility] Comment on above: Performed By: #### C BC, BMP #### [facility] [address] [place] [id number] [facility] CO2 [Moles/Vol] 26.5 mmol/L Normal 21.0-31.0 [facility] Comment on above: Performed By: #### C BC, BMP #### [facility] [address] [place] [id number] [facility] Creatinine [Mass/Vol] 1.12 mg/dL Normal 0.70-1.30 [facility] Comment on above: Performed By: #### C BC, BMP #### [facility] [address] [place] [id number] [place] Creatinine Clr Calc Pharmacy 124.62 Normal [facility] Comment on above: Result Comment: PERF ORMED BY: [place] [address] PATHOLOGIST [employer] MANAGER DEVANG LEMONS M.D. Performed By: #### C BC, BMP #### [facility] [address] [place] [address] [place] GFR/1.73 sq M.predicted MDRD (S/P/Bld) [Vol rate/Area] mL/min/{1.73_m2} [facility] Comment on above: Performed By: #### C BC, BMP #### [address] Glucose [Mass/Vol] 121 mg/dL High 70-100 [facility] Comment on above: Result Comment: [facility] Glucose Reference Range is dependent on time and content of last meal. Glucose of more than 200 mg/dL in a nonstressed, ambulatory subject supports the diagnosis of Diabetes Mellitus. ADA recommended reference range Performed By: #### C BC, BMP #### [address] Potassium [Moles/Vol] 4.0 mmol/L Normal 3.5-5.1 [facility] Comment on above: Performed By: #### C BC, BMP #### [place] [address] [place] Sodium [Moles/Vol] 135 mmol/L Low 136-145 [facility] Comment on above: Performed By: #### C BC, BMP #### [facility] [address] [place] [address] [place] Urea nitrogen [Mass/Vol] 15 mg/dL Normal 7-25 [facility] Comment on above: Performed By: #### C BC, BMP #### [address] Complete Blood Count Auto Di ffon 01-13-2023 Basophils (Bld) [#/Vol] 0.0 10*3/uL Normal 0.0-0.2 [facility] Comment on above: Result Comment: PERF ORMED BY: [place] [address] PATHOLOGIST [employer] MANAGER DEVANG LEMONS M.D. Performed By: #### C BC, BMP #### [address] Basophils/100 WBC (Bld) 0.2 % Normal . [facility] Comment on above: Performed By: #### C BC, BMP #### [address] Eosinophils (Bld) [#/Vol] 0.1 10*3/uL Normal 0.0-0.45 [facility] Comment on above: Performed By: #### C JEAN, BMP #### [address] Eosinophils/100 WBC (Bld) 1.5 % Normal . [facility] Comment on above: Performed By: #### C JEAN, BMP #### [address] Erythrocyte distribution width (RBC) [Ratio] 14.3 % Normal 12.0-14.8 [facility] Comment on above: Performed By: #### C JEAN, BMP #### [address] Hematocrit (Bld) [Volume fraction] 38.6 % Low 38.8-50.0 [facility] Comment on above: Performed By: #### C BC, BMP #### [address] Hemoglobin (Bld) [Mass/Vol] 12.7 g/dL Low 13.0-17.0 [facility] Comment on above: Performed By: #### C BC, BMP #### [address] Lymphocytes (Bld) [#/Vol] 2.5 10*3/uL Normal 1.00-4.8 [facility] Comment on above: Performed By: #### C BC, BMP #### [address] Lymphocytes/100 WBC (Bld) 28.7 % Normal . [facility] Comment on above: Performed By: #### C BC, BMP #### [address] MCH (RBC) [Entitic mass] 27.8 pg Normal 27.5-35.2 [facility] Comment on above: Performed By: #### C BC, BMP #### [address] MCV (RBC) [Entitic vol] 84.8 fL Normal 83.5-101 [facility] Comment on above: Performed By: #### C BC, BMP #### [address] Mean Corpuscular HGB Conc 32.8 g/dL Normal 32.5-35.6 [facility] Comment on above: Performed By: #### C BC, BMP #### [address] Monocytes (Bld) [#/Vol] 0.7 10*3/uL Normal 0.0-0.8 [facility] Comment on above: Performed By: #### C BC, BMP #### [address] Monocytes/100 WBC (Bld) 8.6 % Normal . [facility] Comment on above: Performed By: #### C BC, BMP #### [address] Neutrophils (Bld) [#/Vol] 5.3 10*3/uL Normal 1.8-7.7 [facility] Comment on above: Performed By: #### C BC, BMP #### [address] Neutrophils/100 WBC (Bld) 61.0 % Normal . [facility] Comment on above: Performed By: #### C BC, BMP #### [address] NRBC% 0.2 /100{WBC} Normal 0-0.5 [facility] Comment on above: Performed By: #### C BC, BMP #### [facility] [address] Platelet mean volume (Bld) [Entitic vol] 8.2 fL Normal 6.6-10.1 [facility] Comment on above: Performed By: #### C BC, BMP #### [facility] [address] Platelets (Bld) [#/Vol] 210 10*3/uL Normal 150-450 [facility] Comment on above: Performed By: #### C BC, BMP #### [facility] [address] RBC (Bld) [#/Vol] 4.55 10*6/uL Normal 3.90-5.60 [facility] Comment on above: Performed By: #### C BC, BMP #### [facility] [address] WBC (Bld) [#/Vol] 8.6 10*3/uL Normal 4.1-10.5 [facility] Comment on above: Performed By: #### C BC, BMP #### [address] head/brain wo conon 01-12 CT head/brain wo [facility] [place] [address] [place] [address] CT Scan Report Signed Patient: Taras Hayward MR#: [id number] 56 : 1970 Acct:[id number] Age/Sex: 52 / M ADM Date: 01/03/23 Loc: Room: [address] [place] [address] Type: ADM IN Attending Dr: Srinivas Patricia MD Copies to: Srinivas Patricia MD Ordering Provider: Srinivas Patricia MD Date of Service: 01/12/23 CT/CT head/brain wo con: interval monitor hydrocephalus CT BRAIN WITHOUT CONTRAST: CLINICAL HISTORY: Follow-up hydrocephalus COMPARISON: CT brain 01/09/2023 TECHNIQUE: Contiguous axial unenhanced images were obtained through the brain. This CT exam was performed using one or more following dose reduction techniques: Automated exposure control, adjustment of the mA and/or kV according to patient size, or use of iterative reconstruction technique. FINDINGS: There is no evidence of midline shift, intra or extra-axial fluid collection, hemorrhage or CT evidence of stroke. A right parietal approach WINDOW GLASS CUTTER OFF shunt is once again identified unchanged in position. The ventricular size is unchanged when compared to the prior study. Occipital craniotomy changes. Posterior fossa is unchanged in configuration. Visualized intraorbital contents demonstrate no acute findings. Visualized paranasal sinuses are clear. The surrounding soft tissues are normal. CT/CT head/brain wo con IMPRESSION: NO SIGNIFICANT CHANGE IN BRAIN FINDINGS COMPARED TO THE 01/09/2023 STUDY NO ACUTE INTRACRANIAL ABNORMALITY. Impression dictated by: Srinivas Moore Jr., D.OFarida01/12/2023 3:01 PM Dictation Location: [place] [address] Transcribed By: [facility] 01/12/23 1501 Dictated By: Srinivas Moore Jr, DO 01/12/23 1456 Signed By: 01/12/23 1501 Normal [facility] US venous duplex LE BIon US venous duplex LE BI [facility] [place] [address] [place] [address] Ultrasound Report Signed Patient: Taras Hayward MR#: [id number] 56 : 1970 Acct:[id number] Age/Sex: 52 / M ADM Date: 01/03/23 Loc: Room: [address] [place] [address] Type: ADM IN Attending Dr: Srinivas Patricia MD Ordering Provider: Srinivas Patricia MD Date of Service: 01/11/23 US/US venous duplex LE BI: edema r/o dvt Copies to: Srinivas Patricia MD Bilateral lower extremity venous duplex examination Indication for study: Swollen legs PROCEDURE: Color-flow duplex scanning is used to interrogate the venous anatomy of both lower extremities. In the patient's right leg the common femoral vein and femoral vein show good compressibility and color flow. There is acute deep vein thrombosis involving the right popliteal vein with loss of compressibility and minimal color-flow. The calf veins and saphenous vein are compressible. The left leg is normal. The left common femoral vein, femoral vein, popliteal vein show good compressibility, color-flow, and augmentation. Calf veins and saphenous vein are compressible. US/US venous duplex LE BI IMPRESSION: This examination is positive for acute deep vein thrombosis involving the right popliteal vein Impression dictated by: Gerardo Miranda M.D.01/12/2023 10:53 AM Dictation Location: [place] [address] Tech: Caitlyn Ortiz Transcribed By: ADELA 01/12/23 105 Dictated By: Gerardo Miranda MD 01/12/23 105 Signed By: 01/12/23 105 Normal [facility] Dipstick and Microscopicon 0 01-11-2023 Appearance (U) Cloudy Critically abnormal Clear [facility] Comment on above: Order Comment: Name Collection Type:: Clean-Voided Midstream Performed By: #### C UU, ADDONUAPLUS ####[place] [id number] [facility] Bacteria,Urine 4+ High None Seen [facility] Comment on above: Order Comment: Name Collection Type:: Clean-Voided Midstream Performed By: #### C UU, ADDONUAPLUS ####[place] [id number] [facility] Bilirubin,Urine Negative Normal Negative [facility] Comment on above: Order Comment: Name Collection Type:: Clean-Voided Midstream Performed By: #### C UU, ADDONUAPLUS ####[address] [address] [facility] Color (U) Dark Yellow Critically abnormal Yellow [facility] Comment on above: Order Comment: Name Collection Type:: Clean-Voided Midstream Performed By: #### C UU, ADDONUAPLUS ####[place] [id number] [facility] Glucose Ql (U) Normal Normal Normal [facility] Comment on above: Order Comment: Name Collection Type:: Clean-Voided Midstream Performed By: #### C UU, ADDONUAPLUS ####[place] [id number] [facility] Hyaline Casts,Urine 0-8 Normal 0-8 [facility] Comment on above: Order Comment: Name Collection Type:: Clean-Voided Midstream Result Comment: PERF ORMED BY: [address] [place] [address] PATHOLOGIST [employer] DEVANG LEMONS M.D. Performed By: #### C UU, ADDONUAPLUS ####[address] [address] [facility] Ketones Ql (U) 1+ High Negative [facility] Comment on above: Order Comment: Name Collection Type:: Clean-Voided Midstream Performed By: #### C UU, ADDONUAPLUS ####[address] [address] [facility] Leukocyte esterase Test strip Ql (U) 4+ High Negative [facility] Comment on above: Order Comment: Name Collection Type:: Clean-Voided Midstream Performed By: #### C UU, ADDONUAPLUS ####[address] [address] [facility] Nitrite,Urine Negative Normal Negative [facility] Comment on above: Order Comment: Name Collection Type:: Clean-Voided Midstream Performed By: #### C UU, ADDONUAPLUS ####[address] [address] [facility] Occult Blood,Urine Trace High Negative [facility] Comment on above: Order Comment: Name Collection Type:: Clean-Voided Midstream Result Comment: PERF ORMED BY: [facility] [address] [place] [address] PATHOLOGIST [employer]NAGER DEVANG LEMONS M.D. Performed By: #### C UU, ADDONUAPLUS ####[address] [address] [facility] pH (U) 6.0 [pH] Normal 5.0-9.0 [facility] Comment on above: Order Comment: Name Collection Type:: Clean-Voided Midstream Performed By: #### C UU, ADDONUAPLUS ####[address] Protein,Urine Trace High Negative [facility] Comment on above: Order Comment: Name Collection Type:: Clean-Voided Midstream Performed By: #### C UU, ADDONUAPLUS ####[place] [id number] [facility] RBC,Urine 10-19 High 0-4 [facility] Comment on above: Order Comment: Name Collection Type:: Clean-Voided Midstream Performed By: #### C UU, ADDONUAPLUS ####[address] Specificy [place],Urine 1.019 Normal 1.001-1.03 0 [facility] Comment on above: Order Comment: Name Collection Type:: Clean-Voided Midstream Performed By: #### C UU, ADDONUAPLUS ####[address] Squamous Epithelial Cell,Urine None Seen Normal 0-2 [facility] Comment on above: Order Comment: Name Collection Type:: Clean-Voided Midstream Performed By: #### C UU, ADDONUAPLUS ####[address] Urobilinogen,Urine Normal Normal Normal [facility] Comment on above: Order Comment: Name Collection Type:: Clean-Voided Midstream Performed By: #### C UU, ADDONUAPLUS ####[address] WBC,Urine 50-100 High 0-4 [facility] Comment on above: Order Comment: Name Collection Type:: Clean-Voided Midstream Performed By: #### C UU, ADDONUAPLUS ####[address] Urine Cultureon 01-11-2023 Bacteria identified Cx Nom (U) ORGANISM: Klebsiella pneumoniae (O:KLEPNE) [place] Count >100,000 Aerobic SAI Charge (NMIC56) SUSCEPTIBILITY ORGANISM: O:KLEPNE ANTIBIOTIC INTERPRETATION SAI Amikacin S <16 Amoxacillin/K Clavulanate S <8 Ampicillin/Sulbactam S <4 Aztreonam S <4 Cefazolin S <2 Cefepime S <2 Ceftazidime S <1 Ceftazidime/Avibactam S <4 Ceftolozane/Tazobactam S <2 Ceftriaxone S <1 Cefuroxime S <4 Ciprofloxacin S <0.25 Ertapenem S <0.5 Gentamicin S <2 Levofloxacin S <0.5 Meropenem S <1 Meropenem/Vaborbactam S <2 Nitrofurantoin S <32 Piperacillin/Tazobactam S <8 Tetracycline S <4 Tigecycline S <2 Tobramycin S <2 Trimethoprim/Sulfamethoxazo le S <0.5 S = SUSCEPTIBLE I = INTERMEDIATE R = RESISTANT BLANK = DATA NOT AVAILABLE, OR DRUG NOT ADVISABLE OR TESTED R* = RESISTANCE DUE TO EXTENDED SPECTRUM BETA-LACTAMASES ESBL = EXTENDED SPECTRUM BETA-LACTAMASE TFG = THYMIDINE-DEPENDENT STRAIN JOSHUA = BETA-LACTAMASE POSITIVE IB = INDUCIBLE BETA-LACTAMASE. APPEARS IN PLACE OF 'S' WITH SPECIES KNOWN TO POSSESS INDUCIBLE BETA-LACTAMASES. POTENTIALLY THEY MAY BECOME RESISTANT TO ALL B-LACTAM DRUGS. PERFORMED BY: [place] [address] PATHOLOGIST [employer] MANAGER DEVANG LEMONS M.D. [facility] Comment on above: Performed By: #### C UU, ADDONUAPLUS ####[facility] [id number] Basic Metabolic Panelon 08-0 -2022 Anion gap [Moles/Vol] 9.9 mmol/L Normal 6.0-15.0 [facility] Comment on above: Performed By: #### C BC, BMP #### [facility] [address] Calcium [Mass/Vol] 8.9 mg/dL Normal 8.6-10.3 [facility] Comment on above: Performed By: #### C BC, BMP #### [facility] [address] [place] [address] [place] Chloride [Moles/Vol] 103 mmol/L Normal 98-107 [facility] Comment on above: Performed By: #### C BC, BMP #### [facility] [address] CO2 [Moles/Vol] 29.9 mmol/L Normal 21.0-31.0 [facility] Comment on above: Performed By: #### C BC, BMP #### [facility] [address] [place] [address] [place] Creatinine [Mass/Vol] 0.75 mg/dL Normal 0.70-1.30 [facility] Comment on above: Performed By: #### C BC, BMP #### [facility] [address] [place] [address] [place] Creatinine Clr Calc Pharmacy 186.10 [facility] Comment on above: Result Comment: PERF ORMED BY: [place] [address] PATHOLOGIST [employer]NAGER DEVANG LEMONS M.D. Performed By: #### C BC, BMP #### [place] [address] [place] GFR/1.73 sq M.predicted MDRD (S/P/Bld) [Vol rate/Area] mL/min/{1.73_m2} [facility] Comment on above: Performed By: #### C BC, BMP #### [facility] [address] [place] [address] [place] Glucose [Mass/Vol] 100 mg/dL Normal 70-100 [facility] Comment on above: Result Comment: [place] Glucose Reference Range is dependent on time and content of last meal. Glucose of more than 200 mg/dL in a nonstressed, ambulatory subject supports the diagnosis of Diabetes Mellitus. ADA recommended reference range Performed By: #### C BC, BMP #### [facility] [address] [place] [address] [place] Potassium [Moles/Vol] 3.8 mmol/L Normal 3.5-5.1 [facility] Comment on above: Performed By: #### C BC, BMP #### [facility] [address] [place] [address] Sodium [Moles/Vol] 139 mmol/L Normal 136-145 [facility] Comment on above: Performed By: #### C BC, BMP #### [facility] [address] [place] [address] Urea nitrogen [Mass/Vol] 12 mg/dL Normal 7-25 [facility] Comment on above: Performed By: #### C BC, BMP #### [facility] [address] [place] [address] Basophils Auto (Bld) [#/Vol] Ordered By: Tisha Cardona on 01-09-2023 Basophils (Bld) [#/Vol] 0.0 10*3/uL 0.0-0.2 [facility] Basophils/100 WBC Auto (Bld) Ordered By: Tisha Cardona on 01-09-2023 Basophils/100 WBC (Bld) 0.3 % . [facility] CT head/brain wo conon 01-09 CT head/brain wo con [facility] [place] [address] [place] [address] CT Scan Report Signed Patient: Taras Hayward MR#: [id number] 56 : 1970 Acct:[id number] Age/Sex: 52 / M ADM Date: 01/03/23 Loc: Room: [address] [place] [address] Type: ADM IN Attending Dr: Srinivas Patricia MD Copies to: RADHA Chamberlain MD Ordering Provider: Tisha Cardona APRN Date of Service: 01/09/23 CT/CT head/brain wo con: fall with head injury CT head/brain wo con 01/09/2023 9:06 AM SIGNS AND SYMPTOMS: fall with head injury TECHNIQUE:Multi-detector CT axial slices of the brain were obtained without IV contrast. CT was performed with one or more of the following dose reduction techniques: Automated exposure control, adjustment of the mA and/or kV according to patient size, or use of iterative reconstruction technique. COMPARISON: 01/08/2023. FINDINGS: There is no shift of the midline structures, acute intracranial bleeding, mass effects, or evidence of acute ischemia. There is redemonstration of a right parietal approach ventricular shunt which is unchanged in position. The ventricles remain unchanged in size when compared to the most recent CT. The brainstem is within normal limits. There is gliosis and encephalomalacia in the left cerebellar hemisphere consistent with a previous infarct. There is evidence of occipital craniotomy. There is a similar fluid collection in the craniotomy site. The visualized intraorbital contents, the visualized paranasal sinuses, and the infratemporal soft tissues show no acute abnormality. The osseous structures in the skull base and the calvarium show no acute abnormality. CT/CT head/brain wo con IMPRESSION: No significant interval change. No acute intracranial pathology. Impression dictated by: Harsh Rodriguez M.D.01/09/2023 11:00 AM Dictation Location: [place] [address] Transcribed By: [facility] 01/09/23 1100 Dictated By: Harsh Rodriguez II, MD 01/09/23 1057 Signed By: 01/09/23 1100 Normal [facility] Calcium [Mass/volume] in Ser um or PlasmaOrdered By: Tisha Cardona on 01-09-2023 Calcium [Mass/Vol] 8.9 mg/dL 8.6-10.3 [facility] Carbon dioxide, total [Moles /volume] in Serum or PlasmaOrdered By: Tisha Cardona on 01-09-2023 CO2 [Moles/Vol] 29.9 mmol/L 21.0-31.0 [facility] Chloride [Moles/volume] in S geno or PlasmaOrdered By: Tisha Cardona on 01-09-2023 Chloride [Moles/Vol] 103 mmol/L 98-107 [facility] Complete Blood Count Auto Di ffon 01-09-2023 Basophils (Bld) [#/Vol] 0.0 10*3/uL Normal 0.0-0.2 [facility] Comment on above: Result Comment: PERF ORMED BY: [place] [address] PATHOLOGIST [employer]NA[employer] DEVANG LEMONS M.D. Performed By: #### C BC, BMP #### [address] Basophils/100 WBC (Bld) 0.3 % Normal . [facility] Comment on above: Performed By: #### C BC, BMP #### [address] Eosinophils (Bld) [#/Vol] 0.1 10*3/uL Normal 0.0-0.45 [facility] Comment on above: Performed By: #### C BC, BMP #### [address] Eosinophils/100 WBC (Bld) 1.6 % Normal . [facility] Comment on above: Performed By: #### C BC, BMP #### [address] Erythrocyte distribution width (RBC) [Ratio] 14.3 % Normal 12.0-14.8 [facility] Comment on above: Performed By: #### C BC, BMP #### [address] Hematocrit (Bld) [Volume fraction] 37.8 % Low 38.8-50.0 [facility] Comment on above: Performed By: #### C BC, BMP #### [place] [address] [place] Hemoglobin (Bld) [Mass/Vol] 12.2 g/dL Low 13.0-17.0 [facility] Comment on above: Performed By: #### C BC, BMP #### [place] [address] [place] Lymphocytes (Bld) [#/Vol] 2.3 10*3/uL Normal 1.00-4.8 [facility] Comment on above: Performed By: #### C BC, BMP #### [place] [address] [place] Lymphocytes/100 WBC (Bld) 36.0 % Normal . [facility] Comment on above: Performed By: #### C BC, BMP #### [facility] [address] MCH (RBC) [Entitic mass] 27.4 pg Low 27.5-35.2 [facility] Comment on above: Performed By: #### C BC, BMP #### [facility] [address] MCV (RBC) [Entitic vol] 84.9 fL Normal 83.5-101 [facility] Comment on above: Performed By: #### C BC, BMP #### [facility] [address] Mean Corpuscular HGB Conc 32.3 g/dL Low 32.5-35.6 [facility] Comment on above: Performed By: #### C BC, BMP #### [facility] [address] Monocytes (Bld) [#/Vol] 0.5 10*3/uL Normal 0.0-0.8 [facility] Comment on above: Performed By: #### C BC, BMP #### [facility] [address] Monocytes/100 WBC (Bld) 7.3 % Normal . [facility] Comment on above: Performed By: #### C BC, BMP #### [facility] [address] Neutrophils (Bld) [#/Vol] 3.5 10*3/uL Normal 1.8-7.7 [facility] Comment on above: Performed By: #### C BC, BMP #### [facility] [address] Neutrophils/100 WBC (Bld) 54.8 % Normal . [facility] Comment on above: Performed By: #### C BC, BMP #### [facility] [address] NRBC% 0.2 /100{WBC} Normal 0-0.5 [facility] Comment on above: Performed By: #### C JEAN, BMP #### [facility] [address] [place] [address] [place] Platelet mean volume (Bld) [Entitic vol] 8.8 fL Normal 6.6-10.1 [facility] Comment on above: Performed By: #### C JEAN, BMP #### [facility] [address] [place] [id number] [place] Platelets (Bld) [#/Vol] 185 10*3/uL Normal 150-450 [facility] Comment on above: Performed By: #### C JEAN, BMP #### [facility] [address] RBC (Bld) [#/Vol] 4.46 10*6/uL Normal 3.90-5.60 [facility] Comment on above: Performed By: #### C JEAN, BMP #### [facility] [address] [place] [id number] [facility] WBC (Bld) [#/Vol] 6.4 10*3/uL Normal 4.1-10.5 [facility] Comment on above: Performed By: #### C JEAN, BMP #### [facility] [address] Creatinine [Mass/volume] in Serum or PlasmaOrdered By: Tisha Cardona on 01-09-2023 Creatinine [Mass/Vol] 0.75 mg/dL 0.70-1.30 [facility] Eosinophils Auto (Bld) [#/Vo l]Ordered By: Tisha Cardona on 01-09-2023 Eosinophils (Bld) [#/Vol] 0.1 10*3/uL 0.0-0.45 [facility] Eosinophils/100 WBC Auto (Bl d)Ordered By: Tisha Cardona on 01-09-2023 Eosinophils/100 WBC (Bld) 1.6 % . [facility] Erythrocyte distribution wid th Auto (RBC) [Ratio]Ordered By: Tisha Cardona on 01-09-2023 Erythrocyte distribution width (RBC) [Ratio] 14.3 % 12.0-14.8 [facility] Glucose [Mass/volume] in Ser um or PlasmaOrdered By: Tisha Cardona on 01-09-2023 Glucose [Mass/Vol] 100 mg/dL 70-100 [facility] Comment on above: ADA recommended refe rence rangeRandom Glucose Reference Range is dependent on time and content of last meal. Glucose of more than 200 mg/dL in a nonstressed, ambulatory subject supports the diagnosis of Diabetes Mellitus. Hematocrit Auto (Bld) [Volum e fraction]Ordered By: Tisha Cardona on 01-09-2023 Hematocrit (Bld) [Volume fraction] 37.8 % 38.8-50.0 [facility] Hemoglobin [Mass/volume] in BloodOrdered By: Tisha Cardona on 01-09-2023 Hemoglobin (Bld) [Mass/Vol] 12.2 g/dL 13.0-17.0 [facility] Leukocytes [#/volume] correc jose ramon for nucleated erythrocytes in Blood by Automated counOrdered By: Tisha Cardona on 01-09-2023 WBC corrected for nucl RBC Auto (Bld) [#/Vol] 6.4 10*3/uL 4.1-10.5 [facility] Lymphocytes Auto (Bld) [#/Vo l]Ordered By: Tisha Cardona on 01-09-2023 Lymphocytes (Bld) [#/Vol] 2.3 10*3/uL 1.00-4.8 [facility] Lymphocytes/100 WBC Auto (Bl d)Ordered By: Tisha Cardona on 01-09-2023 Lymphocytes/100 WBC (Bld) 36.0 % . [facility] MCH Auto (RBC) [Entitic mass ]Ordered By: Tisha Cardona on 01-09-2023 MCH (RBC) [Entitic mass] 27.4 pg 27.5-35.2 [facility] MCHC Auto (RBC) [Mass/Vol]Or dered By: Tisha Cardona on 01-09-2023 MCHC (RBC) [Mass/Vol] 32.3 g/dL 32.5-35.6 [facility] MCV Auto (RBC) [Entitic vol] Ordered By: Tisha Cardona on 01-09-2023 MCV (RBC) [Entitic vol] 84.9 fL 83.5-101 [facility] Monocytes Auto (Bld) [#/Vol] Ordered By: Tisha Cardona on 01-09-2023 Monocytes (Bld) [#/Vol] 0.5 10*3/uL 0.0-0.8 [facility] Monocytes/100 WBC Auto (Bld) Ordered By: Tisha Cardona on 01-09-2023 Monocytes/100 WBC (Bld) 7.3 % . [facility] Neutrophils Auto (Bld) [#/Vo l]Ordered By: Tisha Cardona on 01-09-2023 Neutrophils (Bld) [#/Vol] 3.5 10*3/uL 1.8-7.7 [facility] Neutrophils/100 WBC Auto (Bl d)Ordered By: Tisha Cardona on 01-09-2023 Neutrophils/100 WBC (Bld) 54.8 % . [facility] No Panel InformationOrdered By: Tisha Cardona on 01-09-2023 Estimated GFR (CKD-EPI) > 60.0 mL/Min [facility] Creatinine Clearance (Chem 186.10 [facility] Nucleated erythrocytes [Pres ence] in Blood by Automated countOrdered By: Tisha Cardona on 01-09-2023 Nucleated RBC Auto Ql (Bld) 0.2 /100{WBC} 0-0.5 [facility] Platelet mean volume Auto (B ld) [Entitic vol]Ordered By: Tisha Cardona on 01-09-2023 Platelet mean volume (Bld) [Entitic vol] 8.8 fL 6.6-10.1 [facility] Platelets Auto (Bld) [#/Vol] Ordered By: Tisha Cardona on 01-09-2023 Platelets (Bld) [#/Vol] 185 10*3/uL 150-450 [facility] Potassium [Moles/volume] in Serum or PlasmaOrdered By: Tisha Cardona on 01-09-2023 Potassium [Moles/Vol] 3.8 mmol/L 3.5-5.1 [facility] RBC Auto (Bld) [#/Vol]Ordere d By: Tisha Cardona on 01-09-2023 RBC (Bld) [#/Vol] 4.46 10*6/uL 3.90-5.60 [facility] Serum or plasma anion gap de terminationOrdered By: Tisha Cardona on 01-09-2023 Anion gap [Moles/Vol] 9.9 mmol/L 6.0-15.0 [facility] Sodium [Moles/volume] in Ser um or PlasmaOrdered By: Tisha Cardona on 01-09-2023 Sodium [Moles/Vol] 139 mmol/L 136-145 [facility] Urea nitrogen [Mass/volume] in Serum or PlasmaOrdered By: Tisha Cardona on 01-09-2023 Urea nitrogen [Mass/Vol] 12 mg/dL 01-02 [facility] WBC Auto (Bld) [#/Vol]Ordere d By: Tisha Cardona on 01-09-2023 WBC (Bld) [#/Vol] 6.4 10*3/uL 4.1-10.5 [facility] CT head/brain wo conon 01-08 CT head/brain wo [place] [address] CT Scan Report Signed Patient: Taras Hayward MR#: [id number] 56 : 1970 Acct:[id number] Age/Sex: 52 / M ADM Date: 01/03/23 Loc: Room: [address] [place] [address] Type: ADM IN Attending Dr: Srinivas Patricia MD Copies to: Srinivas Patricia MD Ordering Provider: Srinivas Patricia MD Date of Service: 01/08/23 CT/CT head/brain wo con: interval, s/p cerebellar stroke with obs hydro CT head/brain wo con 01/08/2023 11:02 AM SIGNS AND SYMPTOMS: Continued intermittent headaches, nausea, vomiting, dizziness TECHNIQUE:Multi-detector CT axial slices of the brain were obtained without IV contrast. CT was performed with one or more of the following dose reduction techniques: Automated exposure control, adjustment of the mA and/or kV according to patient size, or use of iterative reconstruction technique. COMPARISON: 12/28/2022 FINDINGS: There is no shift of the midline structures, acute intracranial bleeding, mass effects, or evidence of acute ischemia. There is a right posterior parietal approach ventricular shunt with the tip in the right lateral ventricle. This is new compared prior exam. The ventricles are more prominent when compared to the previous CT. The ventricular system is normal in size. There is evidence of previous occipital craniotomy. There is gliosis and encephalomalacia in the left cerebellar hemisphere with chronic appearing fluid collection at the periphery of the cerebellum, left greater than right. This is unchanged. The visualized intraorbital contents, the visualized paranasal sinuses, and the infratemporal soft tissues show no acute abnormality. The osseous structures in the skull base and the calvarium show no abnormality. There is a remote ventricular shunt tract in the right frontal bone. The right frontal approach ventricular shunt has been removed. CT/CT head/brain wo con IMPRESSION: Interval removal of a right frontal approach ventricular shunt with placement of a right parietal approach ventricular shunt. The ventricles are slightly larger when compared to the prior exam. Chronic appearing changes are noted in the posterior fossa with evidence of prior occipital craniotomy. Gliosis and encephalomalacia is noted in the left cerebellar hemisphere consistent with previous left cerebellar infarct. Impression dictated by: Harsh Rodriguez M.D.01/08/2023 3:35 PM Dictation Location: [place] [address] Transcribed By: [facility] 01/08/23 1535 Dictated By: Harsh Rodriguez II, MD 01/08/23 1528 Signed By: 01/08/23 1535 Normal [facility] Alanine aminotransferase [En zymatic activity/volume] in Serum or PlasmaOrdered By: Srinivas Patricia on 01-04-2023 ALT [Catalytic activity/Vol] 18 U/L 7-52 [facility] Albumin [Mass/volume] in Ser um or Plasma by Bromocresol green (BCG) dye binding methoOrdered By: Srinivas Patricia on 01-04-2023 Albumin BCG dye [Mass/Vol] 3.4 g/dL 3.5-5.7 [facility] Alkaline phosphatase [Enzyma tic activity/volume] in Serum or PlasmaOrdered By: Srinivas Patricia on 01-04-2023 ALP [Catalytic activity/Vol] 64 U/L 34-104 [facility] Aspartate aminotransferase [ Enzymatic activity/volume] in Serum or PlasmaOrdered By: Srinivas Patricia on 01-04-2023 AST [Catalytic activity/Vol] 19 U/L 13-39 [facility] Bilirubin.total [Mass/volume ] in Serum or PlasmaOrdered By: Srinivas Patricia on 01-04-2023 Bilirubin [Mass/Vol] 0.6 mg/dL 0.3-1.0 [facility] Complete Blood Count Auto Di ffon 01-04-2023 Basophils (Bld) [#/Vol] 0.0 10*3/uL Normal 0.0-0.2 [facility] Comment on above: Result Comment: PERF ORMED BY: [facility] [address] [place] [address] PATHOLOGIST [employer] DEVANG LEMONS M.D. Performed By: #### C MP, CBC, PAB ####[address] Basophils/100 WBC (Bld) 0.4 % Normal . [facility] Comment on above: Performed By: #### C MP, CBC, PAB ####[place] [id number] [facility] Eosinophils (Bld) [#/Vol] 0.1 10*3/uL Normal 0.0-0.45 [facility] Comment on above: Performed By: #### C MP, CBC, PAB ####[address] Eosinophils/100 WBC (Bld) 1.6 % Normal . [facility] Comment on above: Performed By: #### C MP, CBC, PAB ####[place] [id number] [facility] Erythrocyte distribution width (RBC) [Ratio] 14.3 % Normal 12.0-14.8 [facility] Comment on above: Performed By: #### C MP, CBC, PAB ####[place] [id number] [facility] Hematocrit (Bld) [Volume fraction] 36.7 % Low 38.8-50.0 [facility] Comment on above: Performed By: #### C MP, CBC, PAB ####[address] Hemoglobin (Bld) [Mass/Vol] 12.0 g/dL Low 13.0-17.0 [facility] Comment on above: Performed By: #### C MP, CBC, PAB ####[address] Lymphocytes (Bld) [#/Vol] 2.8 10*3/uL Normal 1.00-4.8 [facility] Comment on above: Performed By: #### C MP, CBC, PAB ####[address] Lymphocytes/100 WBC (Bld) 33.7 % Normal . [facility] Comment on above: Performed By: #### C MP, CBC, PAB ####[address] MCH (RBC) [Entitic mass] 27.7 pg Normal 27.5-35.2 [facility] Comment on above: Performed By: #### C MP, CBC, PAB ####[address] MCV (RBC) [Entitic vol] 85.1 fL Normal 83.5-101 [facility] Comment on above: Performed By: #### C MP, CBC, PAB ####[address] Mean Corpuscular HGB Conc 32.6 g/dL Normal 32.5-35.6 [facility] Comment on above: Performed By: #### C MP, CBC, PAB ####[address] Monocytes (Bld) [#/Vol] 0.8 10*3/uL Normal 0.0-0.8 [facility] Comment on above: Performed By: #### C MP, CBC, PAB ####[address] Monocytes/100 WBC (Bld) 9.3 % Normal . [facility] Comment on above: Performed By: #### C MP, CBC, PAB ####[address] Neutrophils (Bld) [#/Vol] 4.5 10*3/uL Normal 1.8-7.7 [facility] Comment on above: Performed By: #### C MP, CBC, PAB ####[address] Neutrophils/100 WBC (Bld) 55.0 % Normal . [facility] Comment on above: Performed By: #### C MP, CBC, PAB ####[address] NRBC% 0.1 /100{WBC} Normal 0-0.5 [facility] Comment on above: Performed By: #### C MP, CBC, PAB ####[address] Platelet mean volume (Bld) [Entitic vol] 8.3 fL Normal 6.6-10.1 [facility] Comment on above: Performed By: #### C MP, CBC, PAB ####[address] Platelets (Bld) [#/Vol] 259 10*3/uL Normal 150-450 [facility] Comment on above: Performed By: #### C MP, CBC, PAB ####[address] RBC (Bld) [#/Vol] 4.32 10*6/uL Normal 3.90-5.60 [facility] Comment on above: Performed By: #### C MP, CBC, PAB ####[address] WBC (Bld) [#/Vol] 8.2 10*3/uL Normal 4.1-10.5 [facility] Comment on above: Performed By: #### C MP, CBC, PAB ####[facility] [id number] [place] [address] [facility] Comprehensive Metabolic Pane neetu 01-04-2023 Albumin [Mass/Vol] 3.4 g/dL Low 3.5-5.7 [facility] Comment on above: Performed By: #### C MP, CBC, PAB ####[facility] [id number] [place] [address] [facility] Albumin/Globulin [Mass ratio] 1.0 {ratio} Normal [facility] Comment on above: Performed By: #### C MP, CBC, PAB ####[place] [address] [place] [address] [facility] ALP [Catalytic activity/Vol] 64 U/L Normal 34-104 [facility] Comment on above: Performed By: #### C MP, CBC, PAB ####[place] [address] [place] [address] [facility] ALT [Catalytic activity/Vol] 18 U/L Normal 7-52 [facility] Comment on above: Performed By: #### C MP, CBC, PAB ####[place] [address] [place] [address] [facility] Anion gap [Moles/Vol] 11.4 mmol/L Normal 6.0-15.0 [facility] Comment on above: Performed By: #### C MP, CBC, PAB ####[place] [address] [place] [address] [facility] AST [Catalytic activity/Vol] 19 U/L Normal 13-39 [facility] Comment on above: Performed By: #### C MP, CBC, PAB ####[place] [address] [place] [address] [facility] Bilirubin [Mass/Vol] 0.6 mg/dL Normal 0.3-1.0 [facility] Comment on above: Performed By: #### C MP, CBC, PAB ####[facility] [id number] [place] [address] [facility] Calcium [Mass/Vol] 8.7 mg/dL Normal 8.6-10.3 [facility] Comment on above: Performed By: #### C MP, CBC, PAB ####[facility] [place] [id number] [facility] Chloride [Moles/Vol] 103 mmol/L Normal 98-107 [facility] Comment on above: Performed By: #### C MP, CBC, PAB ####[place] [address] [place] [id number] [facility] CO2 [Moles/Vol] 27.3 mmol/L Normal 21.0-31.0 [facility] Comment on above: Performed By: #### C MP, CBC, PAB ####[place] [address] Creatinine [Mass/Vol] 0.89 mg/dL Normal 0.70-1.30 [facility] Comment on above: Performed By: #### C MP, CBC, PAB ####[place] [address] Creatinine Clr Calc Pharmacy 150.03 [facility] Comment on above: Performed By: #### C MP, CBC, PAB ####[place] [address] [place] [id number] [facility] GFR/1.73 sq M.predicted MDRD (S/P/Bld) [Vol rate/Area] mL/min/{1.73_m2} [facility] Comment on above: Performed By: #### C MP, CBC, PAB ####[facility] Globulin (S) [Mass/Vol] 3.4 g/dL [facility] Comment on above: Performed By: #### C MP, CBC, PAB ####[address] Glucose [Mass/Vol] 101 mg/dL High 70-100 [facility] Comment on above: Result Comment: [place] Glucose Reference Range is dependent on time and content of last meal. Glucose of more than 200 mg/dL in a nonstressed, ambulatory subject supports the diagnosis of Diabetes Mellitus. ADA recommended reference range Performed By: #### C MP, CBC, PAB ####[facility] [place] [address] [facility] Potassium [Moles/Vol] 3.7 mmol/L Normal 3.5-5.1 [facility] Comment on above: Performed By: #### C MP, CBC, PAB ####[facility] [place] [address] [facility] Protein [Mass/Vol] 6.8 g/dL Normal 6.4-8.9 [facility] Comment on above: Performed By: #### C MP, CBC, PAB ####[place] [address] [place] [address] [facility] Sodium [Moles/Vol] 138 mmol/L Normal 136-145 [facility] Comment on above: Performed By: #### C MP, CBC, PAB ####[place] [address] [place] [address] [facility] Urea nitrogen [Mass/Vol] 9 mg/dL Normal 7-25 [facility] Comment on above: Performed By: #### C MP, CBC, PAB ####[place] [address] [place] [address] [facility] ECG 12 lead ECGon 01-04-2023 ECG 12 lead ECG [facility] [address] [place] [address] [place] [address] Electrocardiograph Report Signed Patient: Taras Hayward MR#: [id number] 56 : 1970 Acct:[id number] Age/Sex: 52 / M ADM Date: 01/03/23 Loc: Room: [address] [place] [address] Type: ADM IN Attending Dr: Srinivas Patricia MD Ordering Provider: Tisha Cardona APRN Date of Service: 01/04/23 ECG/ECG 12 lead ECG: tachy Copies to: Test Reason : Blood Pressure : / mmHG Vent. Rate : 111 BPM Atrial Rate : 111 BPM P-R Int : 162 ms QRS Dur : 092 ms QT Int : 334 ms P-R-T Axes : 031 072 020 degrees QTc Int : 454 ms Sinus tachycardia Otherwise normal ECG No previous ECGs available Confirmed by CINDY ALCALA [id number] on 01/04/2023 11:58:44 AM Referred By: Electronically Signed By:ROSY CALDWELL MD [facility] Transcribed By: MUS Signed By Bonifacio Caldwell MD 01/04/23 1158 Normal [facility] Globulin Calc (S) [Mass/Vol] Ordered By: Srinivas Patricia on 01-04-2023 Globulin (S) [Mass/Vol] 3.4 g/dL [facility] Prealbuminon 01-04-2023 Prealbumin [Mass/Vol] 12.5 mg/dL Low 17.0-34.0 [facility] Comment on above: Result Comment: PERF ORMED BY: [facility] [address] [place] [id number] PATHOLOGIST [employer] DEVANG LEMONS M.D. Performed By: #### C MP, CBC, PAB ####[facility] [id number] [place] [address] [facility] Prealbumin [Mass/volume] in Serum or PlasmaOrdered By: Srinivas Patricia on 01-04-2023 Prealbumin [Mass/Vol] 12.5 mg/dL 17.0-34.0 [facility] Protein [Mass/volume] in Ser um or PlasmaOrdered By: Srinivas Patricia on 01-04-2023 Protein [Mass/Vol] 6.8 g/dL 6.4-8.9 [facility] Serum or plasma albumin/glob ulin mass ratioOrdered By: Srinivas Patricia on 01-04-2023 Albumin/Globulin [Mass ratio] 1.0 {ratio} [facility] Lab Reportson 11-27-2022 Lab Reports [id number]#[id number]:127 Normal [facility] RAD - MISCon 11-15-2022 RAD - MIS [id number]#[id number]:127 Normal [facility] Coding Summary.on 07-24-2022 Coding Summary. CD:[id number] Gh0bWw+ PGhlYWQ+WS4NSYWzH05ekSSzqY7 VC5aDGD9KMWLBTRGAHL2QAF0qyK Y5PAucB1WsnsLc OtcboXJlJY88MVr2HAJ6zTykTZw hmK0foLAnV0e5ZlAeNX72yP35MA jhVZUpZnD8RpVuajpfvKWi R1zyMkLxcHLhXut+PHRhYmxlIHd nFOVmGPkkKZRnSoWemAbwOR2dJy 9yZGVyLWNvbGxhcHNlOiBj n2tuPCRiOMlwVI2zqVxjV6QreQV 5ZSRzl3i3Mt32yAN+MUVhYMJ7zV abETxiu244YmQyo5mkZMU2 oCWsCCzhWLZ9T64in5X1QJCfWAH fNCE8eKU2bK6plBhtfbjbE1BmkY ViYoP9PQZ9jQGoaV6ywXfv ijzdkN0yTfe+T70RUF3FZNTNJQ5 VQcm4Q7KyGulxdKI+SB43YNArMV 07hFDxdTQvy2fgyLk2HnNb OAHeIOK6sBtiSHohf3BcOHBkH49 rdMAzi1W3UYOpxFzjfHXnHhAwsM H1pE6tYUjodbjta1yoayim Nfdin4hgum67qS11R37tAXatDID lHLU5ACHmHOYyhXnxhn7acP0sUg 8+LPpxr8rja0iotNj6LmPu TJKcbxWcdCluVTQ1t3EyFp58K3X bfZnjb4KrVtl0ja39qWKez8Y9dL J2AMqnMIMuqW7oFWbvOvG8 CGLaNxZdgB32kDHxBTviMu1gcPe fjOpkVN0eZQKwtnwvKRUqyU1tWB BzgOSbaKrbLA7sZUAywxko i079PaZuSEH0BODsdCToQ1KvmN0 iAzFtYXJsKCYhX3ZlrYRiWNlkU9 93UAhpBxT2PVXudwHvW3Jq XGMddWfpQqR9b7Y5Im2Hr9Juaer zPBT8AEtrWWKcSmYvFoUbRnA0O0 TyVfq1EMLruAkrEP7yB2Zd JSKcbuzvdtbclTD2KUIoMAUucN7 2jPSbNOvvZj6mx8Z3d560THEyIR OsqI83Id9pxJztFXRwzWEJ sW8zawlhl3mqyyizHoVgWXOhDUq 7FRk5RFLlfJqwNjKgSLG2NuQ9EV X8uEDwhZ1llMcbixfpsK2s Oyc+K04xsY1eXMK8LLA3wqsrBRC zwbVjTQ20ZZ78J6KbHisabFPsjG U+UGCjbhJefQfgAO0vHpTb v5gzk4RvMDgiZ2WmUATfRJabKkn 1PXFiGOO3vWR1pX7mYBApPKxqk1 X6vFZ4J1PgvcMbix0cy7hf RWInRCvcL42xuGXve9D9RRIxrGP 7UCNyqSlvVsWckF68Uqw+PGNvbG sop8YzRcbgc7xwz7pguPy6 XeOdZXDeheQdbIdgNVS9r0DnZe0 2I87jUOykXTJiLHBvZZHzVGPtuF kvhi2qiE6sEl3+PGNvbCB3 gMY3gF9aYZYhCqY7RFsuX437NbV hhOPbBivoo8qbj0gioHt1NlLgNC BuesQltQwaCSY1v9RzYk87 B79bTHntGIVfFSIdVFUbCQSncVc ykj0noN0jBv7+KM4jd0zjhz59fH 48dHI+YLJhUUK5vGfkDQak YYKisN3yXAxdUvX5GELfJsFofM0 1mWQqWCtuFo4lsCoooGiuET3wUS Zszbjmg601DfDfk0yfKYCp lGYgYXweBIY1O50xu2U9IFCrZGA yFCJ9hTS8mM7lrVwbpslbcBUgkF gaveFivZqxGDvuQLkrZ845 IHRvcDsnPlBhdGllbnQgTmFtZTo 4Y3ZjMrw9EBXjlCutWD0fgRQjAG quOq5guXzkjBlqKE7pWZGg jlgxt888AdMkd6uyOEVdqBGkEZc qTUC4P83hp8L7RZHzRYAiTGL4rE L6bZ8bxYahngfgoRWveKxj gdKlzKbzAPuiMSndE638CXMsfVe aHhFsrqXjSRXlwGL3AD80EV35vF Jau3T3fGO9N9TvETMaaxjl feugyLA2CYKhYHAhhY15Vn9odPt zUu2wQMHoCCT2TOGedHIeD7MykB 4nHyTvLLCnOJVeR0OumDFy HXpbG834XRniGgS9LKEflmFfP2K vMWRkuKkeIyU4k1P9Fv6YN1F3KO 37AG39sLBub2A5gSA3B2Lj GQZtofqaznhdzTH6LMTaXDBjyI8 4Gw1hlHpqPx5mTVZfGUU5ZJSeiQ UbD3DmbM3xAlWmKNUyIUJa N0UinEFlTOnhQ985COcjChI5SXN fwjAzA4UaEKYydGzaRrN0g0K5Mf 6LZPm5CA26LF25pOQro7A7 dPW7N5GlHUOwlmdtzojdiFT7SYZ uGQCstM28Sb0njJeiJu3eDIJcSH F4URTiqGKtN8PqxK6sHqEl NZErYMLeN9OkyHIrGFupB223AUs dMzI6UJJmqwPjV3IwYNUywCjsNa X5g3K2Nq2YAIEkIK29RUH6 xXU7ZP94BS58Q5RvNoixkCMkpOB +PHRhYmxlIHdpZHRoPScxMDAlJy YotVweDW0oPi2tWDEuCZYt uZvvxHJfJqWbp4jnSAQeIDseSQ4 zuUtrD1KadPL5THAlu3v7Jp13O7 9jA3XpjIH+ZURmoYW2bNW7 dM0tRsTyDhL1NXliM573ZeZxcQH eBaywb0wmq0cqjAr5MlR8ZVJqrc NkzWkxQNV8p6OaLv74J15g IHdpZHRoPSIxNSUiIHZhbGlnbj0 kkP9xPv1+DJUawRJ5fKD0zG0kVg JxMkN5SJllM444YhHmfHQn Loljr7kvd7madPo7LjJyJLYmxeA joVchMXI2s9HdLq60M4BtcKngf5 LzYbb9pj93xLOfb8O9pXG8 A2RpNBTvgabjkNZjxStpBY3jKBW udxgtHSMfuA0sLOByV9l1NrXkVe M8TJaxF6SrkuF7FUXwzSWm QTysXXT3A62cv4X6JNXsPURiIGG 1gAH1jA0nlZvvenjlwIBnaFsuog OxmRooMCfnEWzuU074YNWq dFcoOMStbZ4hQBTnvIXxnTcuAR4 xJLLnumqeVkCGK7IyXDSDKPGFAC kgQTwvdGQ+GIIwXWB9rVzr GZygTKAvzJ0sIBQeN0o2ZuIuVcK 3EKgbX7FvWOYkcgapTr23rN4sYh RtMmX5GVxmO9BrvyB7XZXo lPYpSIsxGHL3S12ra7S5SWFjTOU zVIE6jBA2sZ3zmQgewojocJZpdX ranuEndTloZUmuSKkyB547 ZPJdzVfrAlKgTwWeDaJ5SdL4P9J rIbr8UBGgqMhvVF2pvHSlIHqdKq 2bzScphXpbOH2sCNWieurk DKWcnI1tAUUpyGXmbKmdRV6uVMS bhkvwi359HqDzRMK2PIPifLXbC2 NfxP1hUzUmDPDfBRKfM4Vd tCQdKQrjT744WDjsRwI0URNmvyB jA4TeZTXlzJorKpB4c1E1Rc52MN BZZWFyczwvdGQ+PHRkIHN0 lGfnNLuhPXRpyU3uCOJaU4c2YdC hWsH2LPmrN5YdOAOjwnbqIt06jR 9gWnIuUfI2OLklU4GudeM2 HNRlhYZtWEbpPIM8D98sz9U8UNE wYVWpCKO0zBG1qL5swKxwwznqdZ VmdDsgdmVydGljYWwtYWxp Z982CRCfrFgnCu0ueJG4V3DaAtw 1JKLpvVwnMX8juSDeNWpeTy2gvN lddGqhNG5pCSIecjqxJQAm qW3hSCCmuRYkhIfvRH6lBCKipdj qj506NjBqWXH6ISGelMHcG6EzkV 6oCzQkDFBsQIAqQ0WurAKg ALofA841DMjlOaU3LGLphoLvN4R yKNIqnOzhByD4l0R1Ut0IQQDyGK XwnRAyFqE0L6PkFsgnlMK+ XE78SEYoQL99pQXdgSOao9plzZc 2EmQiNAGhQPE3jHdfTBkbu2WcMA FnO09eaKKyb3X4ILXjkWbr wHDoYwRgrLD6rD9nRUvxnvddz4n xgymcYxajq0iiro20vG38U14eAR dpZHRoPSIzMCUiIHZhbGln fz3etH9tRj2+SSSbpQG2tNK2oK5 yWcQbLrO2QFxqM975QzDxeBBcNk ucp5abg6mnoFt4ClIiFSNq ajXecKolOGS2q7LvFj42O41cAOp lSIBpSWReJKFjKCCjvPjzrq8dyC 9wIi8+YQ4vt3thme89pN00 dHI+OYJnZSH5lJyjMXedTGWjnP7 dYEbbZkB6SSMnWeGqiM07oRFtOL mwLw7grVxjcEgvRJ2xTVBu nmqqs577AhGxd6kcMVTqcUIzZBv aGEB0H39kr4Q2PZXdYSZtVEM8tG B7lI8miByravwlzGKbcFbw frPicOrmZPjgLTboL300MUAykGp cVmEtlNQwM3qpicSABV0yLzzbeN Q+YWRkYLD4zHutKWbhPTCd lD2xHTDaN1w3PfXpPcQ2UCuuT7P uqmO3RNBfuOKoFBFmdENVwX8pxq ztp1rqhkqyBeAgPUNpGZm9 ACz2VRJmgJslYqUdFAJ9YxT3ICX 3gTTrgW4llUtezgqckN9nPfa+Rk lOOjwvdGQ+VUEnRLD8dZpv GBbwNDZmlM3bSZGyQ7t5ByEoUqP 3NPodM7CvipZ6NPNsgRXrLCPjnO UFjD5naazyq7udfogfBrDc PJHpEDw0KSy2ANNujAsmFyRmCND 1RhG0SOQ9sTXzgE0yaPgcswraxW 9wOyc+TVJOOjwvdGQ+PHRk JZJ6dXqvULjwZJZsmE3oDUPtS3r 0DzEuZkD9NPehX3OvtpS1NFMkmB OuUUZesXTIbM3yjnwuc2tp tbfnLnErWCUtZMg8ELy2QQDtoIa mCuXgRDR3QgJ5WMA1fVDddE9pxU nrreunxP8rJpi+IWG4MYA4 OZ08HJ12H9FkRkjfhJPurOS+PHR hYmxlIHdpZHRoPScxMDAlJyBzdH ldBS4tMv8dFIQiEAZbcEqs cHNl (more content not included)... Normal [facility] C Urineon 07-22-2022 Bacteria identified Cx Nom (U) Microbiology PROCEDURE: Urine Culture [R1] SOURCE: U Random BODY SITE: COLLECTED DATE/TIME: 07/19/2022 15:45 EST RECEIVED DATE/TIME: 07/20/2022 14:42 EST START DATE/TIME: 07/20/2022 14:42 EST FREE TEXT SOURCE: SLADE ALCALA, Konrad LILLY MD, Konrad Jones FINAL REPORTS Final Report [] Verified Date/Time: 07/22/2022 11:30 EST >100,000 cfu/ml Klebsiella pneumoniae 1,000 cfu/ml Mixed skin contaminants SUSCEPTIBILITY RESULTS LEGEND: S=Susceptible, N/R=Not Reported, Blank=Data not available, or drug not advisable or tested, I=Intermediate, ESBL=Extended spectrum beta-lactamase, R=Resistant, TFG=Thymidine-dependent strain, JOSHUA=Beta-lactamase positive, SAI=mcg/m;(mg/L), S*=Predicted susceptible interp, R*=Predicted resistant interp Klepne Antibiotic SAI Dilutn SAI Interp Amikacin <=16 S Ampicillin 16 R* Ampicillin/ <=8/4 S Sulbactam Aztreonam <=4 S Cefazolin <=2 S Cefepime <=2 S Cefoxitin <=8 S Ceftazidime <=1 S Ceftazidime/ <=8 S Avibactam Ceftriaxone <=1 S Ciprofloxacin <=1 S Ertapenem <=0.5 S Gentamicin <=4 S Levofloxacin <=2 S Meropenem <=1 S Nitrofurantoin <=32 S Piperacillin/ <=16 S Tazobactam Tetracycline <=4 S Tigecycline <=2 S Tobramycin <=4 S Trimethoprim/ <=2/38 S Sulfa Performing Locations R1: This test was performed at: [facility], [address] [place] [address], [id number] , , Normal [facility] [place] Comment on above: Performed By: #### [id number] ####[facility] [place] [address] [place] [address] Covid-19 PCR (CVDTB)on 07-12 SARS-CoV-2 (COVID-19) RNA JOHN+probe Ql (Unsp spec) Not detected Normal NOT DETECTED [facility] Comment on above: Result Comment: When diagnostic testing is negative, the possibility of a false negative should be considered in the context of a patient's recent exposures and the presence of clinical signs and symptoms consistent with SARS-CoV-2. This test is not yet approved or cleared by the [place] FDA. When there are no FDA-approved or cleared tests available, and other criteria are met, FDA can make tests available under an emergency access mechanism called an Emergency Use Authorization (EUA). The EUA for this test is supported by the Quality Process Auditor of Health and Human Service's declaration that circumstances exist to justify the emergency use of in vitro diagnostics for the detection and/or diagnosis of the virus that causes COVID-19. This EUA will remain in effect for the duration of the COVID-19 declaration justifying emergency of IVDs, unless it is terminated or revoked by the FDA (after which the test may no longer be used). Performed By: #### C VDTBH #### [facility] [address] [place] [address] Dr. Lissa Sage [facility] Normal [facility] Comment on above: Result Comment: Nega tive for Flu A protein angiten. Infection due to Flu A cannot be ruled out. Flu A angiten in the sample may be below the detection limit of the test. Performed By: #### I NFLUAB #### [facility] [address] [place] [address] Dr. Lissa Sage INFLUBNEG SEE BELOW Normal [facility] Comment on above: Result Comment: Nega tive for Flu B protein antigen. Infection due to Flu B cannot be ruled out. Flu B antigen in the sample may be below the detection limit of the test. Performed By: #### I NFLUAB #### [facility] [address] [place] [address] Dr. Lissa Sage INFLUENZA A AG Negative Normal NEGATIVE SEE COMMENT [facility] Comment on above: Performed By: #### I NFLUAB #### [facility] [address] [place] [address] Dr. Lissa Sage INFLUENZA B AG Negative Normal NEGATIVE SEE COMMENT [facility] Comment on above: Performed By: #### I NFLUAB #### [facility] [address] [place] [address] Dr. Lissa Sage Screenson 07-20-2022 Screens [id number]:[id number] Normal [facility] [place] Ambulatory Visit Summaryon 0 07-19-2022 Ambulatory Visit Summary TARAS HAYWARD :1970 Visit Date:07/19/2022 Ambulatory Visit Instructions Your Diagnosis Urinary retention Kidney stone Gross hematuria Urinary tract infection Tests Performed Urnls Dip Stick Auto w/o Microscopy POC 60002 XR Abdomen 1 View -- Results Pending -- Please visit your patient portal for your results or contact your primary care physician. Your Care Team Attending Physician - SLADE ALCALA, Konrad Jones Primary Care Physician - AWAIS GARCIA DO Physician - Konrad LILLY MD This Is Your Medications List Contact prescribing physician if questions or concerns carvedilol (carvedilol 12.5 mg Tab) cephalexin (Keflex) doxazosin (Cardura) ergocalciferol (Vitamin D) oxybutynin (oxybutynin 5 mg Tab) oxycodone semaglutide (Ozempic) tamsulosin Procedures Performed Cystoscopic removal of ureteric stent (08/26/2019), Cystoscope (08/20/2019), Gastric bypass operation, Gastric restrictive procedure, with gastric bypass for morbid obesity; with small intestine reconstruction to limit absorption, Hernia repair, Turbinectomy. Discharge Vitals Height 190 cm Height 75 in Weight 157 kg Weight 345.4 lb BMI 43.49 What to do next Scheduled Follow-Up Appointments Sunday 3:15 PM EDT With: Konrad LILLY MD Where: [facility] Patient Educationon 07-19-19 Patient Education Urology Kidney Stones Kidney stones are rock-like masses that form inside of the kidneys. Kidneys are organs that make pee (urine). A kidney stone may move into other parts of the urinary tract, including: ? The tubes that connect the kidneys to the bladder (ureters). ? The bladder. ? The tube that carries urine out of the body (urethra). Kidney stones can cause very bad pain and can block the flow of pee. The stone usually leaves your body (passes) through your pee. You may need to have a doctor take out the stone. What are the causes? Kidney stones may be caused by: ? A condition in which certain glands make too much parathyroid hormone (primary hyperparathyroidism). ? A buildup of a type of crystals in the bladder made of a chemical called uric acid. The body makes uric acid when you eat certain foods. ? Narrowing (stricture) of one or both of the ureters. ? A kidney blockage that you were born with. ? Past surgery on the kidney or the ureters, such as gastric bypass surgery. What increases the risk? You are more likely to develop this condition if: ? You have had a kidney stone in the past. ? You have a family history of kidney stones. ? You do not drink enough water. ? You eat a diet that is high in protein, salt (sodium), or sugar. ? You are overweight or very overweight (obese). What are the signs or symptoms? Symptoms of a kidney stone may include: ? Pain in the side of the belly, right below the ribs (flank pain). Pain usually spreads (radiates) to the groin. ? Needing to pee often or right away (urgently). ? Pain when going pee (urinating). ? Blood in your pee (hematuria). ? Feeling like you may vomit (nauseous). ? Vomiting. ? Fever and chills. How is this treated? Treatment depends on the size, location, and makeup of the kidney stones. The stones will often pass out of the body through peeing. You may need to: ? Drink more fluid to help pass the stone. In some cases, you may be given fluids through an IV tube put into one of your veins at the hospital. ? Take medicine for pain. ? Make changes in your diet to help keep kidney stones from coming back. Sometimes, medical procedures are needed to remove a kidney stone. This may involve: ? A procedure to break up kidney stones using a beam of light (laser) or shock waves. ? Surgery to remove the kidney stones. Follow these instructions at home: Medicines ? Take ltql-ftc-fjhojvb and prescription medicines only as told by your doctor. ? Ask your doctor if the medicine prescribed to you requires you to avoid driving or using heavy machinery. Eating and drinking ? Drink enough fluid to keep your pee pale yellow. You may be told to drink at least 8?10 glasses of water each day. This will help you pass the stone. ? If told by your doctor, change your diet. This may include: ? Limiting how much salt you eat. ? Eating more fruits and vegetables. ? Limiting how much meat, poultry, fish, and eggs you eat. ? Follow instructions from your doctor about eating or drinking restrictions. General instructions ? Collect pee samples as told by your doctor. You may need to collect a pee sample: ? 24 hours after a stone comes out. ? 8?12 weeks after a stone comes out, and every 6?12 months after that. ? Strain your pee every time you pee (urinate), for as long as told. Use the strainer that your doctor recommends. ? Do not throw out the stone. Keep it so that it can be tested by your doctor. ? Keep all follow-up visits as told by your doctor. This is important. You may need follow-up tests. How is this prevented? To prevent another kidney stone: ? Drink enough fluid to keep your pee pale yellow. This is the best way to prevent kidney stones. ? Eat healthy foods. ? Avoid certain foods as told by your doctor. You may be told to eat less protein. ? Stay at a healthy weight. Where to find more information ? National Kidney Foundation (NKF): www.kidney.org ? [employer] (UCF): www.urologyhealth.org Contact a doctor if: ? You have pain that gets worse or does not get better with medicine. Get help right away if: ? You have a fever or chills. ? You get very bad pain. ? You get new pain in your belly (abdomen). ? You pass out (faint). ? You cannot pee. Summary ? Kidney stones are rock-like masses that form inside of the kidneys. ? Kidney stones can cause very bad pain and can block the flow of pee. ? The stones will often pass out of the body through peeing. ? Drink enough fluid to keep your pee pale yellow. This information is not intended to replace advice given to you by your health care provider. Make sure you discuss any questions you have with your health care provider. Document Released: 11/13/2008 Document Revised: 10/14/2019 Document Reviewed: 10/14/2019 [employer] Patient Education ? 2019 [employer] [facility] Urology Office/Clinic Noteon 07-19-2022 Urology Office/Clinic Note Chief Complaint fu to cysto HPI Staff Follow up to cysto done 05/31/22 Previous Dx: urinary retention, gross hematuria, kidney stone pt. states he stopped taking the flomax and has had no issues Dysuria: no Incomplete bladder emptying: no, pvr today in office was 28ml Hematuria: no Frequency: no Urgency: no Nocturia: 1x Stream:good stream Leaking: no Post void dripping: no Wearing pads/ Depends: no Urge incontinence: no Stress incontinence: no Incontinence without Sensory Awareness: no Abdominal pain: no Flank pain: no Sexual complaints: no History of Present Illness Tests reviewed: reviewed UA. I have reviewed the previous health record information and history for this patient from Dr. Lilly. I have reviewed and verified the staff HPI to be accurate for this encounter. There have been no associated fever, chills, flank pain, or blood in the urine. Denies any urinary infections since last encounter. Review of Systems PHQ Score Initial Depression Screen Score: 0 ROS - Provider Constitutional: denies weight loss, denies hot flashes. Eyes: denies eye problems. Gastrointestinal: denies nausea, denies vomiting. Cardiovascular: denies chest pain or angina. Integumentary: no dryness Musculoskeletal: denies musculoskeletal symptoms. ENMT: denies otolaryngeal symptoms. Respiratory: no shortness of breath. Heme/Lymph: denies easy bleeding tendency, denies easy bruising tendency. Psychiatric: no confusion, no anxiety. Genitourinary: denies dysuria, denies hematuria, denies discharge, denies urinary frequency, denies urinary hesitancy, denies nocturia, denies incontinence, denies genital sores, denies decreased libido, and denies erectile dysfunction. Physical Exam Vitals & Measurements HT: 75 in HT: 190 cm WT: 157 kg WT: 345.4 lb BMI: 43.49 General Appearance: alert, no distress, well nourished, well developed male. Genitourinary: normal scrotum, normal testes, normal urethra, normal epididymis, normal vas deferens/spermatic cord. Flank Pain: none. Bladder: nonpalpable. Assessment/Plan 1. Urinary retention (R33.9: Retention of urine, unspecified) Pt is here today due to being seen at [facility] on 05/24/22 due to having urinary retention. Pt had PCNL at [facility] on 05/22/22. [facility] urology consult done 05/09/22. Pt had 1122 mL in bladder at time of ER visit. Pt went to [facility] due to dribble stream and pressure. Pt was discharged from [facility] on 05/22/22 due to having replacement of stent surgery. Urinating well without Kramer. PVR today 28 mL. 2. Kidney stone (N20.0: Calculus of kidney) [facility] ER on 03/29/22 due to Rt. flank pain. CT done 03/28/22 and KUB done 03/29/22. S/P Cysto/Rt RG/Rt. double J stent placement under fluoroscopic guidance done 03/29/22. KUB done 04/11/22 shows right stable large 3 cm stone within right renal pelvis and approximately 9 mm stone within inferior pole. Stable positioning of the right ureteral stent. S/p PCNL at [facility] on 05/22/[address] Coffey. S/p Cysto, R stent removal done 05/31/22. Doing well since stent removal. States he d/c Flomax and has not noticed any issues. Mentioned metabolic workup. Pt states he has LithoLink at home. Pt will complete workup and slip for blood work will be given today. Pt to wait to complete workup closer to 6 month appointment along with KUB. All questions/concerns were discussed. Pt. to call the office if heencounters any issues prior. Pt. acknowledges understanding. 3. Gross hematuria (R31.0: Gross hematuria) Pt saw gross blood in cath bag but does not have catheter anymore. Denies gross hematuria. UA today neg. 4. Urinary tract infection (N39.0: Urinary tract infection, site not specified) UA today shows positive nitrates and small KATRINA. Will send for culture. Pt is asymptomatic currently. Overall the patient is doing well. He had the postoperative urinary retention of 1 L and this is why we had placed him on the alpha blockers. He is voiding well has been off Flomax for 1 month and now has a 28 cc PVR. He knows to call for voiding difficulties. He agrees to proceed with the 24-hour urine collection. The Litholink kit has already been delivered to his home. He will perform the metabolic work-up and a KUB prior to his next visit in 6 months. Follow-up With When Contact Information SLADE ALCALA, Konrad Jones, URL [address] [address]- Additional Instructions: 6 mos w/ KUB & LithoLink Patient Education Kidney Stones, Jdek-gu-Pzva Estelle Lozano, personally scribed for Dr. Lilly on 07/19/2022 15:39:03. . Documentation recorded by the Estelle langebard, accurately reflects the services(s) I performed and decisions made by me. Authenticated by Dr. Lilly on 07/19/2022 15:48:56. Problem List/Past Medical History Ongoing Gross hematuria Hypertension Kidney stone Nephrolithiasis Other anterior urethral stricture, male Urinary (more content not included)... Normal [facility] Comment on above: Result Comment: Elec tronically Signed By: Konrad LILLY MD\.br\Date and Time Signed: 07/19/22 15:50 EST\.br\Electronically Co-Signed By: Estelle Copeland\.br\Date and Time Co-Signed: 07/19/22 15:40 EST Coding Summary.on 06-02-2022 Coding Summary. [id number] Gh0bWw+ PGhlYWQ+XV7CZLYvZ57eoZHxtR0 IN7kAXC5DBVGAAXKQMA4FFL8brG G5PKmsA8GqyaUc GxlumEIgWW39PHq1GGZ9iPkwBIw bmR2fnFEeC9k3FhDgGX47cR10XI afZCGaOtR7YgQcnrgakNXg A4ycDhVitJHoNhq+PHRhYmxlIHd fXVRvKQlxIKQjPfWbsTbrZM3uEi 9yZGVyLWNvbGxhcHNlOiBj u0kwMTPyONjlDY0wzRhvN2UryNZ 8FLMns2p5Aw59vZM+VXRrJAV0aI jwYFpbg952FoCui4twCVJ1 vPPnGQujPUI4G20hl5B6CMGuPKR lVHY6rEM5pP3ohXjejpauV6QhiE WoVmA4PBI3eXQbvK4mcXhg mobxaZ1zUsg+I48EHH7SGJSLDP0 PMjr9L0ViTqmyoHL+SQ67ZSIbIJ 77fQAacPJsu0ppaVb9EtEk SRIlGVN0vOysBXvrf5ZfRQPhX46 nfFSyl8W5TNUjtMbumUBwVaVmaQ R2aG3wNUiiqociz5zfiinp Otzow8inev13sX58T20yZMixHZD aBVU5PLZiUIKioBoerl6vwG5iXv 8+WBpxo5izh4snmXg9XpZk OCGcelLvcIteAAI7w0TjVf24Q1S jxSyjz4YrVcp2yx43kEKvs8A4gP U3RKvjMTTrdU7gMNmuIwF7 NURqHnQcaW99dUTwVOwpWm5icQo xaJilUP5lXPQdmdgaPPIffT5qSQ QneNWhoSkgMJ8cTEErcolc b454ZmJpOAY3YNWseEMhC0CbdT2 pHzPwGQQvCGPbK4RnqCDmPInaY4 11UJndYjF4YIPuhtWhW3Cx EHVasTxpYaT5j8D3Ho4Fk1Qgase oSCM7EWzsYQNdSaKiDwMvQaT8Q0 ZmCsb1KOPfuHliOD9gQ1Dn IZKbdkfdvidypUX7PUSjTHKexB3 0fDJiTElqLw4am4F6p218GMHtFE MefQ54Zd2uhBesOBDqpXTL eZ4rxujbu5nfrclxQbNtFKIzMFu 6DKa7ZYJyoQtiNjOoXUO3NzH0YS E3sTYwsZ8tnMjhcgmxnS5s Oyc+E21xsS3eYBU1BFF8kawmAGN gtrQjBO97SX59Q5DbDjzdhZCxpV U+AAWohjVscIcvTE8yVqQl e2sxz3CfKBbkI4YuMFEkDVapFlk 0FFBsHIX4rCW1mF2wDONwCJthf6 K5lCR9C0SleuCmly8aq9wc CAHiEWbjJ23fvKVoj2V2UVEshCW 1EMGcsTwyHmAirT11Ujt+PGNvbG bim9QsMuaid9jcm3plgUr1 GlCfSBOfhtCqmRtwPRB9r9YkTc9 2F07bXKlpCALuWTUrMCEsDWFsmB aqzb4hnI9yBx0+PGNvbCB3 tNC0gI0bCUCrAsN1MJvtS829GnH icNLiQuqwq6waj0pxqQp9TmJzEX EkcfXxtLbbMPS2p9XgTy84 G22sFSvnNDQdETWdXKEoRYKtbZe rbo9nsG7mDx6+TO5ca9tqxf34bA 48dHI+MZYoJDR2iFhoHRek NNRfzK0qRCdkGaA9LJPoLzFuzI0 6hIRgHMxyQo3jqNcciIztXS2eDB Wtqqmuj775UsGly4fnSYUy mLOkXMxeSVE5C54al4Z2OOZpPLC rSQJ0kYV6dW1imGekcsjgkIGhkM uvfdKapAhkTMzwLCwtA305 IHRvcDsnPlBhdGllbnQgTmFtZTo 0H6JaVyg0OTFtiXoeOM1tbIZwNQ asJe9niPszlZvzKS5dPENr vpjnw189LrPjs4eqVXXjeQVqXAq fZYQ4M82kf2S7EXGnKNWnYJM0zL V7fU9hjYarccoucDDfvBgl bbEafPrpWPvvFAjfC536RZDplNo aHyXredFaLVDeqUT3GR27VQ26gM Hto6P0pLS5N7AqHOHkuoal yfoctMX6XKWdJQGxdT41Dh8qhZh bLl8zBGFlUEQ8DGKpmDWsT6XybL 3eYhBnTNAnXVDtN2FrjCFi PGtyP223VJszVbB0ERXzuhPzB1I uQBUzaUpwArA9g0U6Ov4LH4P3QB 80UI12ySRdk8W4aEW0Q8Gf QWHkxvxypmqlfVP0LCGpQZZhfN9 0Jg1ebUdqZl9fTEJlWBY9QUBmdQ CfG2NhyH7zUxBkNYCiSILe L3TojPNgYZgkK854SZfyEkU8GIH dprAcQ3TaBLIrcCxzJzT5n3S3Up 3ABQu2IV55QN14zITxi2Y5 bHZ9M6UuANXurktgfniroYC5OHJ oIULueZ13Rs9qqJnlMm3dLRDyOW S4MVZsxAHzO2KatQ4fDoSx JAKkDLEuH8NrbOJeGMqqZ069BHa rIzD5MEMxnxUdF9TdJCGgrGgkKx T7e6B1Gu7UHGZzRZ67NEU0 qIC2QG38NC92U9OpFxdbrSZabNL +PHRhYmxlIHdpZHRoPScxMDAlJy GzsNnvWT9cAx7qCGUaPDWb bTiqnGYgOjYjk8seTYBtRHwdBL9 plYtoY2AveNW2LQQrc6p1Ko40M2 1gL9HkgBZ+WNLngXR5hWV9 tM8uPjKrDeY5KUozA090TxBpuUL hQqlaf7uvs5nogPv3JjM0JYXrwy AxbZlcTSR7m3JtWg89T05q IHdpZHRoPSIxNSUiIHZhbGlnbj0 spX1gVx1+OTLbgFD5cPN1sH5nQt EqSfV4OEqkR937FpTdfEDt Qaqhj6csx6njuRg4CdSfPYGfpbM yqDesWGF1r9EoVa45H2BllVmyi4 XrWjo7zq37xLNnz2L5bXU5 X0XuAMCrmhoasBXoiMqjOC2pTQU zbhraKLYohR9hAULuB7l4GaFkUx I0PIppQ3ZcjbJ5YZUbrDYg TDpzUSA9G62su6O1QLMmXLEzMUM 3lLQ4iA8xbSrbistsyRRohNltoc QgjCzaURgmCRymX882HZWl yYepZXEzfC4nKNPfeCInpUnuBX3 tKAOmquglFwCQW4VcTFQLHCMTEQ kgQTwvdGQ+ZFUrTGS4kSea NTsuUCJzpB5cFXJvJ8r9XzVsHlZ 7ZQzaK4TvIAIknobxOz21bE6jIr ByGfQ7PRzoW5AuntM8TVLm qZRhMLotTYZ2J83wf8X8QUWtLJX hLTO0lIU0nV8zdQksuuuisVEchR hzzvBrnYidYTbnBKklF365 NMLaoQlpBrIwFfAlZcO9DfN9Y4S lMoy4SFMfhLbcOS7xbNWdDLfdHy 9ghZeofBalWT9yUPPhrrhh UQFhmZ3bZYJjcXJaxXktVD7vSZO fwvfkm842VkUcMRC2VRQxtINuX6 FxbG3tWgUjUJOpVIIkS1Ov nSWdFKsdE119LXexWnX4HHRzysP dW9EuTIJduGcpOhI2m0D2Xi49UM BZZWFyczwvdGQ+PHRkIHN0 xXnnFHcuCDDusV6rHITlI7q6MeG wYyY3ZFsoG6CwEFKkygidJg66nA 2wZkInMiQ1RIsmW5UmlxL7 BBUhdOYsLBwmQET3T05pr3E1JHO kHPMiMJF3cEA2rP8izVxhcnrgqI VmdDsgdmVydGljYWwtYWxp O261XJFgyYgbPl7osQV8V7XaGhq 7AEXzmRccSP5ujZDnZRhwGj7xdW mcrZpkND2iBBLddgytYYJf kA4kQOVzfFEweDliCM2dREOjjqv pn717GpBnRNN7PIRjrFNvQ1YdvD 6dXjApGSOzFIHuM8TwdSMa UHjzQ416YUvpLsB7DZRozfMgK6T xAQUqrCzdSeD4v3F0Rp5LcVWaHU RuDC05MU93HO85H8PfQpmp dGFibGU+PHRhYmxlIHdpZHRoPSc rUEXxUxZrqKgfXX1jZv3vCQOhTD ClxDzouTUfDzUrx5beVNLs ENutNB7ggTdcI2RyzBW1YCBdl4y 2Oy62E83tP7YfgBA+HRNswVL9fR U5bF1cTmCyXfJ8SIzrF118 WyXypQZkYnhze3xha2kauLs3BkO vCZFecxPvcWeiSES1e3KiJh45Q0 9sIHdpZHRoPSIyMCUiIHZh bWjcll6fwK8lJy6+FKLslZE8kXY 2gF6vDlBcTaD4QMpbR988XpUbgI LqNteoD45cV8WazCK+PHRy Sph8GIDuyXqdEV9tpKPcMDksYt8 mNIJ8OaUzAcGcXJxbO6PqVCCqcx yjpiqrmJS0UHVmRRVqdN21 Ct6dnShmIj8lVBPhDJE2MVWxlFN xP9EdsY8fBqNmXZMdYPZfC3HazN UhJDkmN311JOzqLgA6NMCl dpMuK9XqHYWbbGznTlP8c5S0On6 GeLqllPBaQK9kQyOqMUf9G8UiRf z2OMCykQznPY6cpXPvZEip Gf6qgHbsyAjtYZ7uYQEzrolte02 9DvXnw4umXAEgvKQqKFueTMT9Q0 8jh6V4OCMmBVMoKBV6jGI4 kZ0rkHgfwlqgwLDboGtzyuOdnGj lGYraUPpzB626JNKgeBdiIkBISy v5K1WqCyc6UUGmoTkjCZ8e uSZcKBtsMh5uvIekkEzwYX3zMJH imywax846YaXln3laSOShsWUwTT ihXHI7U11ge5F8RKBmRDTn VUY5yFT1tM0lbSftqfqerONiaMe ldlXetIqxKIjvWCelV928FVVoeE htVb6ZBvx9A4QxLjs7BQYy gKpaVM5ppCYbZVhwRn1kpKnjbEz jCL8dYATrurpzp136ZmCub4tqPP TitCOsGHvlSTL9B44xb1O2 JWMhVOKuCUX9nJF3sX6wgJhtdco gbGVmdDsgdmVydGljYWwtYWxpZ2 46IHRvcDsnPlBheWVyOjwv dGQ+KL98fz42D7NaPolzEly9RHJ wFSX2cTD1iX1kHHGqBAnmd7Y1kS Y6M9OjfxZvqi9bu7gtREKz ZTog (more content not included)... Normal [facility] Consent for Procedure/Surger yon 06-01-2022 Consent for Procedure/Surgery [id number]#[id number]:127 Normal [facility] IntraOperative Documentson 1 08-02-2021 IntraOperative Documents [id number]#[id number]:127 Normal [facility] Consent for Treatmenton 05-12 Consent for Treatment [id number]#[id number]:127 Normal [facility] Inpatient Patient Summaryon 05-31-2022 Inpatient Patient Summary [address] [address] Clinical Summary Person Information Name: TARAS HAYWARD Age: 51 Years : 1970 Sex: Male PCP: AWAIS GARCIA DO Marital Status: Unknown Race: White Ethnicity: Non- or Language: Mongolian Visit Id: Visit Reason: KIDNEY STONE Speciality: Acuity: Enc Type: Outpatient Med Service: Surgery Arrival: 05/31/2022 12:23:16 Discharge: Dispo Type: Address: [place] [address] [id number] Provider Notes: Diagnosis: Problems Active Gross hematuria Urinary retention Kidney stone Nephrolithiasis Other anterior urethral stricture, male Hypertension Smoking Status: Functional Status: Sensory Deficits: History of Falls: Mobility Assistance Prior to Admission: ADLs: Current Level of Assistance for Self-Care/Mobility: Cognitive Status: Allergies No Known Allergies Laboratory or Other Results This Visit (last charted value for your 05/31/2022 visit) No Laboratory or Other Results This Visit Measurements: Height: Weight: Blood Pressure: Not Valued / Not Valued BMI: Procedures No Procedures Documented Immunizations No Immunizations Documented This Visit Final Med List: carvedilol (carvedilol 12.5 mg Tab) 1 Tablets By Mouth 2 times a day. cephalexin (Keflex) By Mouth. doxazosin (Cardura) By Mouth every day. ergocalciferol (Vitamin D) By Mouth every week. oxybutynin (oxybutynin 5 mg Tab) 1 Tablets By Mouth 3 times a day as needed for urinary discomfort. oxycodone By Mouth. semaglutide (Ozempic) 0.5 Milligram Subcutaneous every week. tamsulosin By Mouth every day. Care Team Members: Attending Physician: Konrad LILLY MD Consulting Physician: Referring Physician: Konrad LILLY MD Follow up: With: Address: When: Konrad LILLY [address] [facility], [address], [place] [id number] [facility] (1) Within 6 weeks Comments: Call for followup appointment. A bladder scan will be performed at that visit. Poonam Carter! Patient Education Information: EU - Cystoscopy with Stent Removal Discharge Instructions (Custom) [facility] Main OR Intraoperative Recor don 05-31-2022 Main OR Intraoperative Record IntraOp Document Type FTURO Summary Primary Physician: Konrad LILLY MD Finalized Date/Time: 05/31/22 14:28:48 Pt. Name: TARAS HAYWARD/Sex: 1970 Male Med Rec #: [id number] Physician: Konrad LILLY MD Financial #: [id number] Pt. Type: O Room/Bed: / Admit/Disch: 05/31/22 12:23:16 - Institution: Case Times FTURO Entry 1 Patient Times In Room 05/31/22 14:14:00 Out Room 05/31/22 14:25:00 Procedure Times Start 05/31/22 14:16:00 Stop 05/31/22 14:20:00 Anesthesia Times Last Modified By: Agnieszka Martinez RN 05/31/22 14:25:16 Case Attendance FTURO Entry 1 Entry 2 Entry 3 Case Attendee SLADE ALCALA, Konrad Watkins [employer] MANAGER, Agnieszka Martinez RN, Agnieszka Gill Role Performed Surgeon - Primary Crib Tender - Primary Crib Tender - Primary Time In 05/31/22 14:14:00 05/31/22 14:14:00 05/31/22 14:14:00 Time Out 05/31/22 14:25:00 05/31/22 14:25:00 05/31/22 14:25:00 Procedure CYSTOSCOPY LOCAL WITH CYSTOSCOPY LOCAL WITH CYSTOSCOPY LOCAL WITH STENT REMOVAL(.) STENT REMOVAL(.) STENT REMOVAL(.) Comments Last Modified By: Agnieszka Martinez RN, RN, Agnieszka Sifuentes RN 05/31/22 14:25:18 05/31/22 14:25:18 05/31/22 14:25:18 Surgical Procedures FTURO Entry 1 Procedure Description Procedure CYSTOSCOPY LOCAL WITH Modifiers . STENT REMOVAL Surgeon Description CYSTOSCOPY WITH STENT REMOVAL AND PCNL STITCH REMOVAL Primary Procedure Yes Primary Surgeon Konrad LILLY MD Start 05/31/22 14:16:00 Stop 05/31/22 14:20:00 Anesthesia Type Local Surgical Service Urology Wound Class 2 - Clean-Contaminated Last Modified By: Agnieszka Martinez RN 05/31/22 14:23:14 General Case Data FTURO Pre-Care Text: Classifies surgical wound, implements aseptic technique, initiates traffic control Entry 1 Case Information OR URO 1 FT Case Level None Wound Class 2 - Clean-Contaminated Specialty Urology Preop Diagnosis KIDNEY STONE Postop Same As Preop Yes Postop Diagnosis KIDNEY STONE Outcomes Met? Yes Last Modified By: Agnieszka Martinez RN 05/31/22 13:21:12 Post-Care Text: The patient is free from signs and symptoms of infection EU IntraOp - FTURO Pre-Care Text: Implements protective measures prior to operative or invasive procedure, confirms identity before the operative or invasive procedure, verifies operative procedure, surgical site, and laterality Entry 1 EU Perioperative Protocols Procedure(s) CYSTOSCOPY LOCAL WITH Patient Identity Birthday, ID Band STENT REMOVAL(.) Verified (select at Check, Patient least 2): Participation Consents / H and P HandP, Surgery/Procedure Operative Site Present Verified Consent Marking Verified Surgical Site Yes Laterality Verified Yes Verified Procedure Verified Yes Correct Patient Yes Position Verified Availability Equipment, Medication Time Out Konrad LILLY MD, Verified (If Participants Agnieszka Watkins CST Applicable) AJuan RN, Kimberly Y Time Out Complete 05/31/22 14:15:00 Allergies Reviewed? Yes Allergies Reviewed Self/Patient With Body Position Supine Prep Area PENIS Prep Agents Betadine Solution Skin. Condition Dry, Warm, Unable to Description UNABLE TO VISUALIZE DUE Visualize TO PATIENT PARTIALLY CLOTHED Additional None Specimens Collected Vitals - EU Blood Pressure 123/91 Pulse 104 bpm Respirations 18 br/min SPO2 97 % EBL 0 IandO - EU Total Intake 0 mL Total Output 0 mL Outcomes Met? Yes Last Modified By: Agnieszka Martinez RN 05/31/22 14:16:32 Post-Care Text: The patient is free from signs and symptoms of injury caused by extraneous objects Sign Out FTURO Entry 1 Before Patient Leaves OR Nurse verbally Yes Nurse verbally Yes confirms with the confirms with the team the name of team that the procedure(s) instrument, sponge, recorded and needle counts are correct (or N/A) Nurse verbally n/a Nurse verbally Yes confirms with the confirms with the team how the team whether there specimen is labeled are any equipment (including patient problems to be name), if applicable addressed Sign Out Complete 05/31/22 14:20:00 Last Modified By: Agnieszka Martinez RN 05/31/22 14:23:10 Case Comments Finalized By: Agnieszka Martinez RN Document Signatures Signed By: Agnieszka Martinez RN 05/31/22 14:25 Agnieszka Martinez RN 05/31/22 14:28 Agnieszka Martinez RN 05/31/22 14:28 Normal [facility] [place] Main OR Preoperative Recordo n 05-31-2022 Main OR Preoperative Record Holding Area Document Type FTURO Summary Primary Physician: Konrad LILLY MD Finalized Date/Time: 05/31/22 13:20:22 Pt. Name: TARAS HAYWARD Joe Tucker/Sex: 1970 Male Med Rec #: [id number] Physician: Konrad LILLY MD Financial #: [id number] Pt. Type: O Room/Bed: / Admit/Disch: 05/31/22 12:23:16 - Institution: Case Times Holding FTURO Pre-Care Text: Verifies consent for planned procedure, identifies individual values and wishes concerning care, includes family members in perioperative teaching Secures patient's records' belongings, and valuables, maintains patient's dignity and privacy, and maintains patient confidentiality Entry 1 In Holding 05/31/22 12:49:00 Outcomes Met? Yes Last Modified By: Brisa Hansen LPN 05/31/22 12:49:43 Post-Care Text: The patient participates in decisions affecting his or her perioperative plan of care The patient's right to privacy is maintained Surgery Checklist FTURO Entry 1 Patient Birthday, Patient Procedure History and Physical, Identification: Participation Verification: Surgical Consent, With Patient NPO after Midnight: No Personal Items: Glasses, Jewelry Personal Items clothes Limitations: na Comment: Complaints of Pain: No Pain Comment: na Skin Integrity Intact, [place], Warm, & Dry Vitals - EU Blood Pressure 123/91 Pulse 104 bpm Respirations 18 br/min SPO2 97 % RN Reviewed Yes Last Modified By: Agnieszka Martinez RN 05/31/22 13:20:20 Finalized By: Agnieszka Martinez RN Document Signatures Signed By: Brisa Hansen LPN 05/31/22 12:50 Agnieszka Martinez RN 05/31/22 13:20 Normal [facility] [place] Operative Reporton Operative Report Patient: RAQUEL HAYWARD Age: 51 years Sex: Male : 1970 Associated Diagnoses: None Author: Konrad LILLY MD Procedure Operative Information Details: Date/ Time: 05/31/2022 14:35:00. Pre-Op Dx: Foreign Body in Bladder - T19.1XXA, Status post right PCNL. Post-Op Dx: Same. Anesthesia Type: Local. Procedure: Local Cystoscopy with Stent Removal. Complications: None. Risks/Benefits/Informed Consent: Surgical risks, benefits, details of the procedure have been explained to the patient, Full informed consent has been obtained. Intraoperative Information Prepped: The patient was prepped with the Betadine solution. Anesthesia: 2% Xylocaine Jelly per urethra. Procedure: Cystoscopy and Right Stent Removal, The flexible Cystoscope was passed in retrograde fashion into the bladder without difficulty, The bladder was viewed in entirety and found to be without tumors or stones, Mild inflammation was seen surrounding the orifice with the stent seen protruding from it, The stent was then grasped and removed in its entirety, Prostate with lateral lobe hypertrophy, moderate. Moderately obstructive. Specimens Removed: None. Devices Implanted: None. Postoperative Information Discharge: The patient tolerated the procedure well and was subsequently discharged home, Suture removed from the right flank Stay on the FLomax- 0.4 mg daily D/C hyoscyamine. Normal [facility] [place] Comment on above: Result Comment: Elec tronically Signed By: Konrad LILLY MD\.br\Date and Time Signed: 05/31/22 14:37 EST Outpatient Surgery Discharge Instructionon 05-31-2022 Outpatient Surgery Discharge Instruction [address] [address] Patient Discharge Instructions PERSON INFORMATION Name: TARAS HAYWARD Date of : 1970 Current Date: 05/31/2022 14:27:02 PHYSICIANS Admitting Physician: Konrad LILLY MD Comment: Discharge Diagnosis: TARAS HAYWARD has been given the following list of follow-up instructions, prescriptions, and patient education materials: IF UNABLE TO CONTACT YOUR PHYSICIAN AND YOU FEEL IT IS AN EMERGENCY, GO TO THE NEAREST EMERGENCY ROOM OR CALL 911 Follow up: With: Address: When: Konrad LILLY [address] [place] [address], [address], [address] [address] [facility] (1) Within 6 weeks Comments: Call for followup appointment. A bladder scan will be performed at that visit. Poonam Carter! Comment: PATIENT EDUCATION INFORMATION Instructions: Cystoscopy with Stent Removal ? Voiding after the procedure: there may be some pain, burning, urgency, frequency and blood tinged urine following the procedure. These symptoms usually resolve within 2-5 days. Drink the amount of fluid it takes to keep the urine pink to yellow or clear in color. Drinking enough water and fluids will help to ease any discomfort after your procedure. ? If you are having problems that seem out of the ordinary, please call. ? If unable to contact your physician and you feel it is an emergency, go to the nearest emergency room or call 911 ? Diet ? you may resume your normal diet. ? Activity ? you may resume your normal activities ? Call if you have a fever over 100 degrees. RYAN Lozano BRADLEY A, have received the attached patient education materials/instructions and have verbalized understanding: May we do a follow up call? Yes No I was present when discharge instructions were given Patient Signature Date Clinican/Nurse Signature Date You may receive a survey from Room [address] asking you to rate your care experience. Your feedback is important and will help us understand what we do well and how we can improve the quality of care we provide to you, your loved ones and our community. It?s an honor to serve you. Thank you for choosing [facility] Normal [facility] ED Note-Physicianon 05-25-20 ED Note-Physician [id number] Normal [facility] Urology Office/Clinic Noteon 05-25-2022 Urology Office/Clinic Note Chief Complaint Hospital follow up HPI Staff Pt is here today due to being seen at [facility] on 05/24/22 due to having urinary retention. [facility] urology consult done 05/09/22. Previous DX: kidney stone, nephrolithiasis, other anterior urethral structure-male. Pt had 1122ml in bladder at time of ER visit. Pt currently has a cath denies pain/burning, no leaking w/cath, no flank/abd pain. Pt went to [facility] due to dribble stream and pressure. Pt was discharged from [facility] on 05/22/22 due to having replacement of stent surgery. History of Present Illness Tests reviewed: none. I have reviewed the previous health record information and history for this patient from Dr. Lilly. I have reviewed and verified the staff HPI to be accurate for this encounter. There have been no associated fever, chills, flank pain, or blood in the urine. Denies any urinary infections since last encounter. Review of Systems PHQ Score Initial Depression Screen Score: 0 ROS - Provider Constitutional: denies weight loss, denies hot flashes. Eyes: denies eye problems. Gastrointestinal: denies nausea, denies vomiting. Cardiovascular: denies chest pain or angina. Integumentary: no dryness Musculoskeletal: denies musculoskeletal symptoms. ENMT: denies otolaryngeal symptoms. Respiratory: no shortness of breath. Heme/Lymph: denies easy bleeding tendency, denies easy bruising tendency. Psychiatric: no confusion, no anxiety. Genitourinary: See HPI. Physical Exam Vitals & Measurements HT: 75 in HT: 190 cm WT: 157 kg WT: 345.4 lb BMI: 43.49 General Appearance: alert, no distress, well nourished, well developed male. Genitourinary: normal scrotum, normal testes, normal urethra, normal epididymis, normal vas deferens/spermatic cord. Flank Pain: none. Bladder: nonpalpable. Assessment/Plan 1. Urinary retention (R33.9: Retention of urine, unspecified) Pt is here today due to being seen at [facility] on 05/24/22 due to having urinary retention. Pt had PCNL at [facility] on 05/22/22. [facility] urology consult done 05/09/22. Pt had 1122ml in bladder at time of ER visit. Pt currently has a cath denies pain/burning, no leaking w/cath, no flank/abd pain. Pt went to [facility] due to dribble stream and pressure. Pt was discharged from [facility] on 05/22/22 due to having replacement of stent surgery. Pt started Flomax yesterday. Has had three doses of the Hyoscyamine. Pt to stop Hyoscyamine on Sunday. Pt to stay on Flomax as it relaxes ureter and prostate. Leave catheter in until Sunday. Catheter bag placed well. Pt taking Keflex 500mg, can decrease to BID. Will give pt cath leg bag to take home. All questions/concerns were discussed. Pt to call the office if heencounters any issues prior. Pt acknowledges understanding and agrees with plan. Has appt scheduled next week. 2. Kidney stone (N20.0: Calculus of kidney) Patient seen by [facility] on 03/29/22 due to [address]t. flank pain. CT done 03/28/22 and KUB done 03/29/22. S/P Cysto/Rt RG/Rt. double J stent placement under fluoroscopic guidance done 03/29/22. KUB done 04/11/22 shows right stable large 3 cm stone within right renal pelvis and approximately 9 mm stone within inferior pole. Stable positioning of the right ureteral stent. S/p PCNL at [facility] on 05/22/[address] Coffey. 3. Gross hematuria (R31.0: Gross hematuria) Pt saw gross blood in cath bag. 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 Overall the patient is 3 days status post right PCNL by Dr. Coffey at the [facility]. He did well with that procedure but was still having some gross hematuria. He then went into urinary retention of over 1 L and had a Kramer catheter placed at the local emergency room. He states his gross hematuria is actually improved over the past 2 to 3 days. He is passing no clots. Therefore no irrigation was performed. I viewed his dressing overlying the access site in the right flank and this is minimally soiled. We discussed his urinary retention and the fact that it is over 1 L. He has now on tamsulosin 0.4 mg daily and this should continue. I recommend leaving the indwelling Kramer catheter in until next week, at which time he is scheduled for cystoscopy and a stent removal and also to remove the percutaneous site suture. We gave him a leg bag so he can switch back and forth between the leg bag and night bag. He agrees with this plan will call for difficulties prior to visit next week. I did review his operative report from the stent placement originally. His prostate demonstrated only moderate lateral lobe hypertrophy which is not very obstructive. This bodes well for a positive result from a voiding trial after his stent is removed. He is instructed to discontinue the Levsin 2 to 3 days prior to his procedure next week Follow-up With When Contact Information Konrad LILLY MD, URL [address] [facility] [address] [address]- Additional Instructions: f/u scheduled for next week Patient Education IIgnacia, personally scribed for Dr. Lilly on 05/25/2022 (more content not included)... Normal [facility] Comment on above: Result Comment: Elec tronically Signed By: Konrad LILLY MD\.br\Date and Time Signed: 05/25/22 10:24 EST\.br\Electronically Co-Signed By: Ignacia Magallon\.br\Date and Time Co-Signed: 05/25/22 10:20 EST Basic metabolic 2000 panelon 05-24-2022 Anion gap [Moles/Vol] 10 mmol/L Normal 9-18 [facility] Comment on above: Order Comment: Speci men Type: BLOOD SPECIMENOrdering Facility: [facility] Address: [address] [place] [address] [place] Performed By: #### 2 4321-2 ####[facility] [id number] [place] [address] [place] Calcium [Mass/Vol] 8.8 mg/dL Normal 8.5-10.2 [facility] Comment on above: Order Comment: Speci men Type: BLOOD SPECIMENOrdering Facility: [facility] Address: [address] Performed By: #### 2 4321-2 ####[facility] LAB[facility] [id number] [place] [address] [place] Chloride [Moles/Vol] 104 mmol/L Normal 97-105 [facility] Comment on above: Order Comment: Speci men Type: BLOOD SPECIMENOrdering Facility: [facility] Address: [address] Performed By: #### 2 4321-2 ####[facility] LABCL[facility] [id number] [place] [address] [place] CO2 [Moles/Vol] 24 mmol/L Normal 22-30 [facility] Comment on above: Order Comment: Speci men Type: BLOOD SPECIMENOrdering Facility: [facility] Address: [address] [place], [place] [address] Performed By: #### 2 4321-2 ####[facility] LABCLIA [id number] [place] [address] [place] Creatinine [Mass/Vol] 0.94 mg/dL Normal 0.73-1.22 [facility] Comment on above: Order Comment: Speci men Type: BLOOD SPECIMENOrdering Facility: [facility] Address: [address] [place], [place] [address] Performed By: #### 2 4321-2 ####[facility]CL[facility] [id number] [address] [id number] [address] [place] ESTIMATED GLOMERULAR FILTRATION RATE 99 mL/min/1.73m??? Normal >=60 [facility] Comment on above: Order Comment: Daysi souza Type: BLOOD SPECIMENOrdering Facility: [facility] Address: [address] [place] [address] Result Comment: Paloma mated Glomerular Filtration Rate (eGFR) is calculated using the 2020 CKD-EPI creatinine equation. This equation utilizes serum creatinine, sex, and age as parameters. The creatinine assay has traceable calibration to isotope dilution-mass spectrometry. Refer to KDIGO guidelines for clinical interpretation. In patients with unstable renal function, e.g. those with acute kidney injury, the eGFR may not accurately reflect actual GFR. Performed By: #### 2 4321-2 ####[facility] LABIA [id number] [place] [address] [place] Glucose [Mass/Vol] 96 mg/dL Normal 74-99 [facility] Comment on above: Order Comment: Daysi souza Type: BLOOD SPECIMENOrdering Facility: [facility] Address: [address] [place] [address] Result Comment: The [place] Diabetes Association (ADA) provides guidance for cutoff values for fasting glucose and random glucose. The ADA defines fasting as no caloric intake for at least 8 hours. Fasting plasma glucose results between 100 to 125 mg/dL indicate increased risk for diabetes (prediabetes). Fasting plasma glucose results greater than or equal to 126 mg/dL meet the criteria for diagnosis of diabetes. In the absence of unequivocal hyperglycemia, results should be confirmed by repeat testing. In a patient with classic symptoms of hyperglycemia or hyperglycemic crisis, random plasma glucose results greater than or equal to 200 mg/dL meet the criteria for diagnosis of diabetes. Reference: Standards of Medical Care in Diabetes 2016, [place] [employer] Association. Diabetes Care. 2016.39(Suppl 1). Performed By: #### 2 4321-2 ####[facility] LABIA [id number] [place] [address] [place] Potassium [Moles/Vol] 3.6 mmol/L Low 3.7-5.1 [facility] Comment on above: Order Comment: Speci men Type: BLOOD SPECIMENOrdering Facility: [facility] Address: [address] Performed By: #### 2 4321-2 ####[facility] LABCLIA [id number] [place] [address] [place] Sodium [Moles/Vol] 138 mmol/L Normal 136-144 [facility] Comment on above: Order Comment: Speci men Type: BLOOD SPECIMENOrdering Facility: [facility] Address: [address] Performed By: #### 2 4321-2 ####[facility] LABCLIA [id number] [place] [address] [place] Urea nitrogen [Mass/Vol] 14 mg/dL Normal 9-24 [facility] Comment on above: Order Comment: Speci men Type: BLOOD SPECIMENOrdering Facility: [facility] Address: [address] Performed By: #### 2 4321-2 ####[facility] LABCLIA [id number] [place] [address] [place] CBC W Auto Differential pane l (Bld)on 05-24-2022 Basophils (Bld) [#/Vol] 10*3/uL Normal <0.11 [facility] Comment on above: Order Comment: Speci men Type: BLOOD SPECIMEN Ordering Facility: [facility] Address: [address] Performed By: #### 2 4321-2 #### [facility] CLIA [id number] [address] [place] [address] [place] Basophils/100 WBC (Bld) 0.1 % Normal [facility] Comment on above: Order Comment: Speci men Type: BLOOD SPECIMEN Ordering Facility: [facility] Address: [address] Performed By: #### 2 4321-2 #### [facility] CLIA [id number] [address] [place] [address] [place] Differential cell count method Nom (Bld) Auto Normal [facility] Comment on above: Order Comment: Speci men Type: BLOOD SPECIMEN Ordering Facility: [facility] Address: [address] [place] [address] Performed By: #### 2 4321-2 #### [facility] CLIA [id number] [address] [place] [address] [place] Eosinophils (Bld) [#/Vol] 0.06 10*3/uL Normal <0.46 [facility] Comment on above: Order Comment: Speci men Type: BLOOD SPECIMEN Ordering Facility: [facility] Address: [address] [place] [address] Performed By: #### 2 4321-2 #### [facility] CLIA [id number] [address] [place] [address] [place] Eosinophils/100 WBC (Bld) 0.8 % Normal [facility] Comment on above: Order Comment: Speci men Type: BLOOD SPECIMEN Ordering Facility: [facility] Address: [address] [place] [address] Performed By: #### 2 4321-2 #### [facility] CLIA [id number] [address] [place] [address] [place] Erythrocyte distribution width (RBC) [Ratio] 14.1 % Normal 11.5-15.0 [facility] Comment on above: Order Comment: Speci men Type: BLOOD SPECIMEN Ordering Facility: [facility] Address: [address] [place] [address] Performed By: #### 2 4321-2 #### [facility] CLIA [id number] [address] [place] [address] [place] Hematocrit (Bld) [Volume fraction] 33.6 % Low 39.0-51.0 [facility] Comment on above: Order Comment: Speci men Type: BLOOD SPECIMEN Ordering Facility: [facility] Address: [address] Performed By: #### 2 4321-2 #### [facility] CLIA [id number] [address] [place] [address] [place] Hemoglobin (Bld) [Mass/Vol] 10.9 g/dL Low 13.0-17.0 [facility] Comment on above: Order Comment: Speci men Type: BLOOD SPECIMEN Ordering Facility: [facility] Address: [address] Performed By: #### 2 4321-2 #### [facility] CLIA [id number] [address] [place] [address] [place] Immature granulocytes (Bld) [#/Vol] 0.04 10*3/uL Normal <0.10 [facility] Comment on above: Order Comment: Speci men Type: BLOOD SPECIMEN Ordering Facility: [facility] Address: [address] Performed By: #### 2 4321-2 #### [facility] CLIA [id number] [address] [place] [address] [place] Immature granulocytes/100 WBC (Bld) 0.5 % Normal [facility] Comment on above: Order Comment: Speci men Type: BLOOD SPECIMEN Ordering Facility: [facility] Address: [address] Performed By: #### 2 4321-2 #### [facility] CLIA [id number] [address] [place] [address] [place] Lymphocytes (Bld) [#/Vol] 2.18 10*3/uL Normal 1.00-4.00 [facility] Comment on above: Order Comment: Speci men Type: BLOOD SPECIMEN Ordering Facility: [facility] Address: [address] Performed By: #### 2 4321-2 #### [facility] CLIA [id number] [address] [place] [address] [place] Lymphocytes/100 WBC (Bld) 27.8 % Normal [facility] Comment on above: Order Comment: Speci men Type: BLOOD SPECIMEN Ordering Facility: [facility] Address: [address] [place] [address] Performed By: #### 2 4321-2 #### [facility] CLIA [id number] [address] [place] [address] [place] MCH (RBC) [Entitic mass] 28.5 pg Normal 26.0-34.0 [facility] Comment on above: Order Comment: Speci men Type: BLOOD SPECIMEN Ordering Facility: [facility] Address: [address] [place] [address] Performed By: #### 2 4321-2 #### [facility] CLIA [id number] [address] [place] [address] [place] MCHC (RBC) [Mass/Vol] 32.4 g/dL Normal 30.5-36.0 [facility] Comment on above: Order Comment: Speci men Type: BLOOD SPECIMEN Ordering Facility: [facility] Address: [address] [place], [place] [address] Performed By: #### 2 4321-2 #### [facility] CLIA [id number] [address] [place] [address] [place] MCV (RBC) [Entitic vol] 87.7 fL Normal 80.0-100.0 [facility] Comment on above: Order Comment: Speci men Type: BLOOD SPECIMEN Ordering Facility: [facility] Address: [address] [place], [place] [address] Performed By: #### 2 4321-2 #### [facility] CLIA [id number] [address] [place] [address] [place] Monocytes (Bld) [#/Vol] 0.79 10*3/uL Normal <0.87 [facility] Comment on above: Order Comment: Speci men Type: BLOOD SPECIMEN Ordering Facility: [facility] Address: [address] Performed By: #### 2 4321-2 #### [facility] CLIA [id number] [address] [place] [address] [place] Monocytes/100 WBC (Bld) 10.1 % Normal [facility] Comment on above: Order Comment: Speci men Type: BLOOD SPECIMEN Ordering Facility: [facility] Address: [address] Performed By: #### 2 4321-2 #### [facility] CLIA [id number] [address] [place] [address] [place] Neutrophils (Bld) [#/Vol] 4.75 10*3/uL Normal 1.45-7.50 [facility] Comment on above: Order Comment: Speci men Type: BLOOD SPECIMEN Ordering Facility: [facility] Address: [address] Performed By: #### 2 4321-2 #### [facility] CLIA [id number] [address] [place] [address] [place] Neutrophils/100 WBC (Bld) 60.7 % Normal [facility] Comment on above: Order Comment: Speci men Type: BLOOD SPECIMEN Ordering Facility: [facility] Address: [address] Performed By: #### 2 4321-2 #### [facility] CLIA [id number] [address] [place] [address] [place] Nucleated RBC (Bld) [#/Vol] 10*3/uL Normal <0.01 [facility] Comment on above: Order Comment: Speci men Type: BLOOD SPECIMEN Ordering Facility: [facility] Address: [address] Performed By: #### 2 4321-2 #### [facility] CLIA [id number] [address] [place] [address] [place] Nucleated RBC/100 WBC (Bld) [Ratio] 0.0 /100 WBC Normal [facility] Comment on above: Order Comment: Speci men Type: BLOOD SPECIMEN Ordering Facility: [facility] Address: [address] Performed By: #### 2 4321-2 #### [facility] CLIA [id number] [address] [place] [address] [place] Platelet mean volume (Bld) [Entitic vol] 9.6 fL Normal 9.0-12.7 [facility] Comment on above: Order Comment: Speci men Type: BLOOD SPECIMEN Ordering Facility: [facility] Address: [address] [place], [place] [address] Performed By: #### 2 4321-2 #### [facility] CLIA [id number] [address] [place] [address] [place] Platelets (Bld) [#/Vol] 189 10*3/uL Normal 150-400 [facility] Comment on above: Order Comment: Speci men Type: BLOOD SPECIMEN [facility] [facility] Address: [address] [place] [address] Performed By: #### 2 4321-2 #### [facility] CLIA [id number] [address] [place] [address] [place] RBC (Bld) [#/Vol] 3.83 10*6/uL Low 4.20-6.[address] [facility] Comment on above: Order Comment: Speci men Type: BLOOD SPECIMEN Ordering Facility: [facility] Address: [address] [place], [place] [address] Performed By: #### 2 4321-2 #### [facility] CLIA [id number] [address] [place] [id number] [place] WBC (Bld) [#/Vol] 7.83 10*3/uL Normal 3.70-11.[address] [facility] Comment on above: Order Comment: Speci men Type: BLOOD SPECIMEN Ordering Facility: [facility] Address: [address] [id number] Performed By: #### 2 4321-2 #### [facility] CLIA [id number] [facility] [place] [id number] [place] CNDSon 05-24-2022 CNDS HNO ID: [id number] Author: Harsh Coffey MD Service: Urology Author Type: Physician Type: Discharge Summary Filed: 05/24/2022 11:39 AM Note Text: DISCHARGE SUMMARY UROLOGY PATIENT NAME: Taras Hayward ADMISSION DATE: 05/22/2022 DISCHARGE DATE: 05/24/2022 Attending Physician: No att. providers found Code Status: Not on file Highest Readmission Risk Score: 10 The 30 day readmissions risk score is derived from an internally validated risk model which evaluates patient level characteristics, utilization history, medication orders and lab results up until the day of discharge. Patients with a score of 40 or above are considered highest risk for readmission. Specific patient level drivers will be listed at the bottom of the summary. Reason for Hospitalization: (N20.0) Nephrolithiasis Operations During Hospitalization: PERCUTANEOUS NEPHROLITHOTOMY, STENT CHANGE: 05720 (CPT?) Procedures During Hospitalization: Intubation Hospital Course: Taras Hayward is a 51 year old male with history of RIGHT nephrolithiasis (R lower pole x 2 and UPJ, larger 2.7 cm) now s/p RIGHT PCNL Patient was transferred to the recovery unit and then to the regular nursing floor. Diet was slowly advanced as tolerated. Activity level was gradually increased. Pain was controlled on oral medications. The patient was then deemed fit for discharge on POD 2 following improvement in his hematuria and successful trial of void. Transitions of Care Critical Issues: RIGHT ureteral stent LABS AND PROCEDURES PENDING AT DISCHARGE: stone for analysis Consulting Teams During Hospitalization: None Patient Condition @ Discharge: Stable Discharge Disposition: Home with Self Care Information Provided to Patient: Please see instructions provided to patient. ALLERGIES No Known Allergies Discharge Medications: Discharge Medication List as of 05/24/2022 9:19 AM START taking these medications tamsulosin (FLOMAX) 0.4 mg Take 1 capsule by mouth daily at bedtime. Normal, Disp-30 capsule, R-0, Long-term oxyCODONE IR (ROXICODONE) 5 mg immediate release tablet Take 1 tablet by mouth every 8 hours as needed for pain. Normal, Disp-6 tablet, R-0 Dx: 1. Nephrolithiasis docusate sodium (COLACE) 100 mg capsule Take 1 capsule by mouth twice daily. Normal, Disp-60 capsule, R-0 CONTINUE these medications which have CHANGED cephALEXin (KEFLEX) 500 mg capsule Take 1 capsule by mouth three times daily for 3 days. Normal, Disp-9 capsule, R-0 CONTINUE these medications which have NOT CHANGED cholecalciferol, vitamin D3, (VITAMIN D3 ORAL) Take 5,000 Int'l Units/L by mouth once daily. Historical Med, Long-term carvedilol (COREG) 12.5 mg tablet Take by mouth. Historical Med, Long-term oxybutynin (DITROPAN) 5 mg tablet Take by mouth. Historical Med, Long-term OZEMPIC 0.25 mg or 0.5 mg(2 mg/1.5 mL) pen INJECT 0.5MG SUBCUTANEOUSLY WEEKLY Historical Med, LOLY STOP taking these medications azithromycin (ZITHROMAX) 250 mg tablet Comments: Reason for Stopping: cefUROXime (CEFTIN) 500 mg tablet Comments: Reason for Stopping: ciprofloxacin HCl (CIPRO) 500 mg tablet Comments: Reason for Stopping: nystatin-triamcinolone (MYCOLOG II) cream Comments: Reason for Stopping: tiZANidine (ZANAFLEX) 4 mg tablet Comments: Reason for Stopping: Plan of Care: Plan of care discussed with Provider, RN, Patient Future Appointments: No future appointments. Follow up to be scheduled for 7-10 days for cysto with ureteral stent removal. The patient's risk for 30-day readmission is determined using the following contributing factors: Pt variables contributing to increased readmission risk: 10 Most Recent BUN Result 8.4 First Resulted Calcium During Admission 1 Insurance - Private Coverage 1 Discharge Disposition - Home 1 Active Anticoagulant SIGNATURE: Jie Hurt MD DATE: May 24, 2022 TIME: 11:08 AM Harsh Coffey MD, FACS Director, Surgical Stone Disease, [facility] [place] financial services counselor, [facility] Pager [phone] 05/24/2022 Normal [facility] CULTURE URINEon 05-24-2022 CULTURE URINE Culture Observations : NO GROWTH. Normal [facility] Comment on above: Performed By: #### I NFLUAB #### [facility] [address] [address] [address] Lissa Sage ER URINE PROFILEon 2 Bilirubin Ql (U) SMALL Abnormal NEGATIVE [facility] Comment on above: Performed By: #### E RUR, UMICRO #### [facility] [address] [address] [address] Lissa Sage Clarity (U) CLOUDY Abnormal CLEAR [facility] Comment on above: Performed By: #### E RUR, UMICRO #### [facility] [address] [place] [address] Dr. Lissa Sage Color (U) BROWN Abnormal YELLOW [facility] Comment on above: Performed By: #### E RUShannon UMICRO #### [facility] [address] [address] [address] Lissa Sage ERUAHD A micrscopic examina tion will be performed if indicated. Normal [facility] Comment on above: Performed By: #### Licha RUShannon UMICRO #### [facility] [address] [address] [address] Lissa Sage Glucose Ql (U) Negative Normal NEGATIVE [facility] Comment on above: Performed By: #### E RUR, UMICRO #### [facility] [address] [address] [address] Lissa Sage Hemoglobin Ql (U) LARGE Abnormal NEGATIVE [facility] Comment on above: Performed By: #### Licha HARGROVE UMICRO #### [facility] [address] [address] [address] Lissa Sage Ketones Ql (U) Negative Normal NEGATIVE [facility] Comment on above: Performed By: #### Licha RUR UMICRO #### [facility] [address] [place] [address] Dr. Lissa Sage LEUKOCYTES SMALL Abnormal NEGATIVE [facility] Comment on above: Performed By: #### IBRAHIMA CASTILLO #### [facility] [address] [place] [address] Dr. Lissa Sage Nitrite Ql (U) Positive Abnormal NEGATIVE [facility] Comment on above: Performed By: #### IBRAHIMA CASTILLO #### [facility] [address] [place] [address] Dr. Lissa Sage pH (U) 6.5 [pH] Normal 5-9 [facility] Comment on above: Performed By: #### IBRAHIMA CASTILLO #### [facility] [address] [place] [address] Dr. Lissa Sage SPEC GRAVITY 1.010 Normal 1.005-<=1. 025 [facility] Comment on above: Performed By: #### IBRAHIMA CASTILLO #### [facility] [address] [place] [address] Dr. Lissa Sage UA PROTEIN >300 Abnormal NEGATIVE/ TRACE [facility] Comment on above: Performed By: #### IBRAHIMA CASTILLO #### [facility] [address] [place] [address] Dr. Lissa Sage UR MICRO IND INDICATED Normal [facility] Comment on above: Performed By: #### IBRAHIMA CASTILLO #### [facility] [address] [place] [address] Dr. Lissa Sage Urobilinogen Qn (U) 0.2 {Gurpreet'U}/dL Normal 0.2 - 1. 0 [facility] Comment on above: Performed By: #### IBRAHIMA CASTILLO #### [facility] [address] [place] [address] Dr. Lissa Sage URINE MICROSCOPIC ONLYon BACTERIA TRACE Abnormal NONE SEEN [facility] Comment on above: Performed By: #### IBRAHIMA CASTILLO #### [facility] [address] [place] [address] Dr. Lissa Sage Bacteria identified Cx Nom (U) INDICATED Normal [facility] Comment on above: Performed By: #### E NORMAR, UMICRO #### [facility] [address] [place] [address] Dr. Lissa Sage CAST NONE SEEN Normal NONE SEEN [facility] Comment on above: Performed By: #### E RUR, UMICRO #### [facility] [address] [address] [address] Lissa Sage Crystals LM Nom (Urine sed) NONE SEEN Normal NONE SEEN [facility] Comment on above: Performed By: #### E RUR, UMICRO #### [facility] [address] [place] [address] Dr. Lissa Sage Epithelial cells LM Ql (Urine sed) RARE Normal NONE SEEN /RARE [facility] Comment on above: Performed By: #### E NORMAR, UMICRO #### [facility] [address] [place] [address] Dr. Lissa Sage MUCOUS TRACE Abnormal NONE SEEN [facility] Comment on above: Performed By: #### E DELVIN, UMICRO #### [facility] [address] [place] [address] Dr. Lissa Sage RBC (U) [#/Vol] /uL Abnormal 0-2 [facility] Comment on above: Performed By: #### E DELVIN, UMICRO #### [facility] [address] [place] [address] Dr. Lissa Sage WBC 10-20 Abnormal NONE SEEN [facility] Comment on above: Performed By: #### E RUR, UMICRO #### [facility] [address] [address] [address] Lissa Sage Basic metabolic 2000 panelon 05-23-2022 Anion gap [Moles/Vol] 12 mmol/L Normal 9-18 [facility] Comment on above: Order Comment: Speci men Type: BLOOD SPECIMEN Ordering Facility: [facility] Address: [address] [place] [phone] Performed By: #### 2 4321-2 #### [facility] CLIA [id number] [address] [place] [address] [place] Calcium [Mass/Vol] 9.0 mg/dL Normal 8.5-10.2 [facility] Comment on above: Order Comment: Speci men Type: BLOOD SPECIMEN Ordering Facility: [facility] Address: [address] [address] Performed By: #### 2 4321-2 #### [facility] CLIA [id number] [address] [place] [address] [place] Chloride [Moles/Vol] 103 mmol/L Normal 97-105 [facility] Comment on above: Order Comment: Speci men Type: BLOOD SPECIMEN Ordering Facility: [facility] Address: [address] [place] [address] Performed By: #### 2 4321-2 #### [facility] CLIA [id number] [address] [place] [address] [place] CO2 [Moles/Vol] 21 mmol/L Low 22-30 [facility] Comment on above: Order Comment: Speci men Type: BLOOD SPECIMEN Ordering Facility: [facility] Address: [address] [place] [address] Performed By: #### 2 4321-2 #### [facility] CLIA [id number] [address] [place] [address] [place] Creatinine [Mass/Vol] 0.97 mg/dL Normal 0.73-1.22 [facility] Comment on above: Order Comment: Speci men Type: BLOOD SPECIMEN Ordering Facility: [facility] Address: [address] [place], [place] [address] Performed By: #### 2 4321-2 #### [facility] CLIA [id number] [address] [place] [address] [place] ESTIMATED GLOMERULAR FILTRATION RATE 96 mL/min/1.73m??? Normal >=60 [facility] Comment on above: Order Comment: Speci men Type: BLOOD SPECIMEN Ordering Facility: [facility] Address: [address] Result Comment: Paloma mated Glomerular Filtration Rate (eGFR) is calculated using the 2020 CKD-EPI creatinine equation. This equation utilizes serum creatinine, sex, and age as parameters. The creatinine assay has traceable calibration to isotope dilution-mass spectrometry. Refer to KDIGO guidelines for clinical interpretation. In patients with unstable renal function, e.g. those with acute kidney injury, the eGFR may not accurately reflect actual GFR. Performed By: #### 2 4321-2 #### [facility] CLIA [id number] [address] [place] [address] [place] Glucose [Mass/Vol] 144 mg/dL High 74-99 [facility] Comment on above: Order Comment: Daysi souza Type: BLOOD SPECIMEN Ordering Facility: [facility] Address: [address] [address] Result Comment: The [place] Diabetes Association (ADA) provides guidance for cutoff values for fasting glucose and random glucose. The ADA defines fasting as no caloric intake for at least 8 hours. Fasting plasma glucose results between 100 to 125 mg/dL indicate increased risk for diabetes (prediabetes). Fasting plasma glucose results greater than or equal to 126 mg/dL meet the criteria for diagnosis of diabetes. In the absence of unequivocal hyperglycemia, results should be confirmed by repeat testing. In a patient with classic symptoms of hyperglycemia or hyperglycemic crisis, random plasma glucose results greater than or equal to 200 mg/dL meet the criteria for diagnosis of diabetes. Reference: Standards of Medical Care in Diabetes 2016, [place] [employer] Association. Diabetes Care. 2016.39(Suppl 1). Performed By: #### 2 4321-2 #### [facility] CLIA [id number] [facility] [place] [address] [place] Potassium [Moles/Vol] 4.6 mmol/L Normal 3.7-5.1 [facility] Comment on above: Order Comment: Daysi souza Type: BLOOD SPECIMEN Ordering Facility: [facility] Address: [address] Performed By: #### 2 4321-2 #### [facility] CLIA [id number] [address] [place] [address] [place] Sodium [Moles/Vol] 136 mmol/L Normal 136-144 [facility] Comment on above: Order Comment: Speci men Type: BLOOD SPECIMEN Ordering Facility: [facility] Address: [address] [address] Performed By: #### 2 4321-2 #### [facility] CLIA [id number] [address] [place] [address] [place] Urea nitrogen [Mass/Vol] 16 mg/dL Normal 9-24 [facility] Comment on above: Order Comment: Speci men Type: BLOOD SPECIMEN Ordering Facility: [facility] Address: [address] [place] [address] Performed By: #### 2 4321-2 #### [facility] CLIA [id number] [address] [place] [address] [place] CBC W Auto Differential pane l (Bld)on 05-23-2022 Basophils (Bld) [#/Vol] 10*3/uL Normal <0.11 [facility] Comment on above: Order Comment: Speci men Type: BLOOD SPECIMEN Ordering Facility: [facility] Address: [address] [place] [address] Performed By: #### 2 4321-2 #### [facility] CLIA [id number] [address] [place] [address] [place] Basophils/100 WBC (Bld) 0.2 % Normal [facility] Comment on above: Order Comment: Speci men Type: BLOOD SPECIMEN Ordering Facility: [facility] Address: [address] [place] [address] Performed By: #### 2 4321-2 #### [facility] CLIA [id number] [address] [id number] [address] [place] Differential cell count method Nom (Bld) Auto Normal [facility] Comment on above: Order Comment: Speci men Type: BLOOD SPECIMEN Ordering Facility: [facility] Address: [address] Performed By: #### 2 4321-2 #### [facility] CLIA [id number] [address] [place] [address] [place] Eosinophils (Bld) [#/Vol] 10*3/uL Normal <0.46 [facility] Comment on above: Order Comment: Speci men Type: BLOOD SPECIMEN Ordering Facility: [facility] Address: [address] Performed By: #### 2 4321-2 #### [facility] CLIA [id number] [address] [place] [address] [place] Eosinophils/100 WBC (Bld) 0.1 % Normal [facility] Comment on above: Order Comment: Speci men Type: BLOOD SPECIMEN Ordering Facility: [facility] Address: [address] Performed By: #### 2 4321-2 #### [facility] CLIA [id number] [address] [place] [address] [place] Erythrocyte distribution width (RBC) [Ratio] 13.9 % Normal 11.5-15.0 [facility] Comment on above: Order Comment: Speci men Type: BLOOD SPECIMEN Ordering Facility: [facility] Address: [address] Performed By: #### 2 4321-2 #### [facility] CLIA [id number] [address] [place] [address] [place] Hematocrit (Bld) [Volume fraction] 37.7 % Low 39.0-51.0 [facility] Comment on above: Order Comment: Speci men Type: BLOOD SPECIMEN Ordering Facility: [facility] Address: [address] Performed By: #### 2 4321-2 #### [facility] CLIA [id number] [address] [place] [address] [place] Hemoglobin (Bld) [Mass/Vol] 12.2 g/dL Low 13.0-17.0 [facility] Comment on above: Order Comment: Speci men Type: BLOOD SPECIMEN Ordering Facility: [facility] Address: [address] [place], [place] [address] Performed By: #### 2 4321-2 #### [facility] CLIA [id number] [address] [place] [address] [place] Immature granulocytes (Bld) [#/Vol] 0.08 10*3/uL Normal <0.10 [facility] Comment on above: Order Comment: Speci men Type: BLOOD SPECIMEN Ordering Facility: [facility] Address: [address] [place], [place] [address] Performed By: #### 2 4321-2 #### [facility] CLIA [id number] [address] [place] [address] [place] Immature granulocytes/100 WBC (Bld) 0.7 % Normal [facility] Comment on above: Order Comment: Speci men Type: BLOOD SPECIMEN Ordering Facility: [facility] Address: [address] [place], [place] [address] Performed By: #### 2 4321-2 #### [facility] CLIA [id number] [address] [place] [address] [place] Lymphocytes (Bld) [#/Vol] 1.17 10*3/uL Normal 1.00-4.00 [facility] Comment on above: Order Comment: Speci men Type: BLOOD SPECIMEN Ordering Facility: [facility] Address: [address] [place] [address] Performed By: #### 2 4321-2 #### [facility] CLIA [id number] [address] [place], [place] [address] [place] Lymphocytes/100 WBC (Bld) 9.7 % Normal [facility] Comment on above: Order Comment: Speci men Type: BLOOD SPECIMEN Ordering Facility: [facility] Address: [address] [place], [place] [address] Performed By: #### 2 4321-2 #### [facility] CLIA [id number] [address] [place] [address] [place] MCH (RBC) [Entitic mass] 28.3 pg Normal 26.0-34.0 [facility] Comment on above: Order Comment: Speci men Type: BLOOD SPECIMEN Ordering Facility: [facility] Address: [address] [place], [place] [address] Performed By: #### 2 4321-2 #### [facility] CLIA [id number] [address] [place] [address] [place] MCHC (RBC) [Mass/Vol] 32.4 g/dL Normal 30.5-36.0 [facility] Comment on above: Order Comment: Speci men Type: BLOOD SPECIMEN Ordering Facility: [facility] Address: [address] [place], [place] [address] Performed By: #### 2 4321-2 #### [facility] CLIA [id number] [address] [place] [address] [place] MCV (RBC) [Entitic vol] 87.5 fL Normal 80.0-100.0 [facility] Comment on above: Order Comment: Speci men Type: BLOOD SPECIMEN Ordering Facility: [facility] Address: [address] [place], [place] [address] Performed By: #### 2 4321-2 #### [facility] CLIA [id number] [address] [place] [address] [place] Monocytes (Bld) [#/Vol] 0.93 10*3/uL High <0.87 [facility] Comment on above: Order Comment: Speci men Type: BLOOD SPECIMEN Ordering Facility: [facility] Address: [address] Performed By: #### 2 4321-2 #### [facility] CLIA [id number] [address] [place] [address] [place] Monocytes/100 WBC (Bld) 7.7 % Normal [facility] Comment on above: Order Comment: Speci men Type: BLOOD SPECIMEN Ordering Facility: [facility] Address: [address] Performed By: #### 2 4321-2 #### [facility] CLIA [id number] [address] [place] [address] [place] Neutrophils (Bld) [#/Vol] 9.87 10*3/uL High 1.45-7.50 [facility] Comment on above: Order Comment: Speci men Type: BLOOD SPECIMEN Ordering Facility: [facility] Address: [address] Performed By: #### 2 4321-2 #### [facility] CLIA [id number] [address] [place] [address] [place] Neutrophils/100 WBC (Bld) 81.6 % Normal [facility] Comment on above: Order Comment: Speci men Type: BLOOD SPECIMEN Ordering Facility: [facility] Address: [address] Performed By: #### 2 4321-2 #### [facility] CLIA [id number] [address] [place] [address] [place] Nucleated RBC (Bld) [#/Vol] 10*3/uL Normal <0.01 [facility] Comment on above: Order Comment: Speci men Type: BLOOD SPECIMEN Ordering Facility: [facility] Address: [address] Performed By: #### 2 4321-2 #### [facility] CLIA [id number] [address] [place] [address] [place] Nucleated RBC/100 WBC (Bld) [Ratio] 0.0 /100 WBC Normal [facility] Comment on above: Order Comment: Speci men Type: BLOOD SPECIMEN Ordering Facility: [facility] Address: [address] [place] [address] Performed By: #### 2 4321-2 #### [facility] CLIA [id number] [address] [place] [address] [place] Platelet mean volume (Bld) [Entitic vol] 9.2 fL Normal 9.0-12.7 [facility] Comment on above: Order Comment: Speci men Type: BLOOD SPECIMEN Ordering Facility: [facility] Address: [address] [place] [address] Performed By: #### 2 4321-2 #### [facility] CLIA [id number] [address] [place] [address] [place] Platelets (Bld) [#/Vol] 234 10*3/uL Normal 150-400 [facility] Comment on above: Order Comment: Speci men Type: BLOOD SPECIMEN Ordering Facility: [facility] Address: [address] [place] [address] Performed By: #### 2 4321-2 #### [facility] CLIA [id number] [address] [place] [address] [place] RBC (Bld) [#/Vol] 4.31 10*6/uL Normal 4.20-6.[address] [facility] Comment on above: Order Comment: Speci men Type: BLOOD SPECIMEN Ordering Facility: [facility] Address: [address] [place], [place] [address] Performed By: #### 2 4321-2 #### [facility] CLIA [id number] [address] [place] [address] [place] WBC (Bld) [#/Vol] 12.08 10*3/uL High 3.70-11.00 [facility] Comment on above: Order Comment: Speci men Type: BLOOD SPECIMEN Ordering Facility: [facility] Address: [address] [place] [id number] Performed By: #### 2 4321-2 #### [facility] CLIA [id number] 9500 [facility] [address]K [id number] [place], [place] [id number] [facility] NURSING PROGon 05-23-2022 NURSING PROG HNO ID: [id number] Author: Kaitlin Keane RN Service: ? Author Type: Registered Nurse Type: Nursing Progress Note Filed: 05/23/2022 6:12 PM Note Text: Nursing Progress Note Topic of Note: Daily Note Taras Hayward [id number] 0930: kramer emptied fro 900cc bloody urine. 1249: noted only 50cc bloddy urine in kramer bag. Pt denies any pressure or pain. Dr coffey at bedside, made aware of output. Dr coffey advised to do serial urines. Informed patient to keep drinking and walking. 1417: no urine noted in drainage bag. Notified 19021. Pt denies pressure or pain. Noted feeling pressure when sat to have a BM. No bm and pressure gone when pt got back to bed. 1447: bladder scanned for 245cc. 1500: Елена SCENARIO WRITER to bedside to irrigate, no clots noted but urnie began flowing. Will monitor. 1720:no urine output since 1500, pt becoming uncomfortable, encouaged to walk, no output, so bladder scanned for 127cc. 1745: spoke with Елена ACOSTA, ok to irrigate. 1800:irrigated with 100cc, with immediate return for a total of 900cc, pt with much relief. This note was completed by: Kaitlin Thomson [facility] ANES POSTPROC EVALon 022 ANES POSTPROC EVAL HNO ID: [id number] Author: Chapo Alcala, Service: ? Author Type: Anesthesiologist Type: Anesthesia Postprocedure Evaluation Filed: 05/22/2022 4:18 PM Note Text: POST ANESTHESIA EVALUATION NOTE : 1970 Procedure Summary Date: 05/22/22 Room / Location: [address] [facility] Anesthesia Start: 1328 Anesthesia Stop: 1601 Procedure: PERCUTANEOUS NEPHROLITHOTOMY, STENT CHANGE (Right: Kidney) Diagnosis: Nephrolithiasis (Nephrolithiasis [N20.0]) Surgeons: Harsh Coffey MD Responsible Provider: Chapo Alcala DO Anesthesia Type: general ASA Status: 3 Anesthesia Type: general Airway Type: ETT Last Vitals Vitals Value Taken Time BP 127/67 05/22/22 1612 Temp 36.1 05/22/22 1616 HR SpO2 98 05/22/22 1615 Resp 16 05/22/22 1616 SpO2 100 % 05/22/22 1615 Post Anesthesia Patient Status Patient Evaluation: bedside. Anticipated Disposition: phase 2 then home. Neurological Status: aware and responsive. Pulmonary Status: breathing comfortably on supplemental oxygen Airway Control: returned to baseline unsupported. Cardiovascular Status: stable. Pain Management: clinically adequate Postoperative Hydration: acceptable. Intraoperative Events: no significant anesthesia events Post Operative Nausea/Vomiting Status: no significant post operative nausea or vomiting Recommendation: continue current plan of care. Anesthesia Observations No Documentation SIGNATURE: Chapo Alcala DO PATIENT NAME: Taras Hayward DATE: May 22, 2022 TIME: 4:16 PM CSN: [id number] Normal [facility] ANES PRE-OPon 05-22-2022 ANES PRE-OP HNO ID: [id number] Author: Chapo Alcala DO Service: ? Author Type: Anesthesiologist Type: Anesthesia Preprocedure Evaluation Filed: 05/22/2022 12:55 PM Note Text: ANESTHESIOLOGY DAY OF SURGERY NOTE : 1970 Procedure Information Date/Time: 05/22/22 1248 Procedure: PERCUTANEOUS NEPHROLITHOTOMY (Right: Kidney) Location: [address] [facility] Surgeons: Harsh Coffey MD Estimated body mass index is 44.2 kg/m? as calculated from the following: Height as of this encounter: 190.5 cm (6' 3 ). Weight as of this encounter: 160.4 kg (353 lb 9.6 oz). Most recent hematocrit and potassium results: Hematocrit 46.1 05/09/2022 Potassium 4.8 05/09/2022 Relevant Problems CARDIO (+) Essential hypertension -RENAL (+) Nephrolithiasis I - PHYSICAL EVALUATION AIRWAY Patient intubated: No. Tracheostomy tube not present Mallampati: II. TM distance: >3 FB. Neck ROM: full ROM without neurological symptoms. Mouth opening: adequate. Short neck: no. Thick neck: no Peoples present: no Additional exam findings: no II - ANESTHESIA PLAN ASA Score: 3 Anesthetic Plan: general Airway type: ETT NPO Status: adequate Anesthetic plan additional comments: Chart reviewed. Pertinent pt's history reviewed and discussed with patient.. Beta Melvin Monitoring Plan Monitoring plan: standard ASA. Post Procedure Analgesic Plan Postoperative analgesic plan: parenteral or oral opioids. Informed Consent Anesthetic risks, benefits, alternatives, personnel and consent discussed: yes. Patient / Responsible Democrat agrees to proceed: yes Patient / Surrogate agrees to blood products: Yes DNR status not reviewed with patient and/or family prior to surgery. Significant changes in the patient condition since the History and Physical, not otherwise documented in primary service progress note: no. Potential Anesthesia issues that may suggest increased risk of complications or contraindication to planned procedure: none. Vitals Value Taken Time BP 115/68 05/22/22 1243 Pulse 97 05/22/22 1243 Resp 16 05/22/22 0620 Temp 36.7 ?C (98.1 ?F) 05/22/22 0620 SpO2 95 % 05/22/22 1243 Facility-Administered Medications as of 05/22/2022 Medication Dose Route Frequency - [COMPLETED] lidocaine (PF) 10 mg/mL (1 %) 1-2 mg injection (XYLOCAINE) 0.1-0.2 mL INTRADERMAL PRN Or - [COMPLETED] lidocaine 1% 0.25 mL subcutaneous j-tip syringe (XYLOCAINE) 0.25 mL SUBCUTANEOUS PRN - midazolam (PF) injection (VERSED) INTRAVENOUS X (OR/PROCEDURE) PRN - fentaNYL 50 mcg/mL injection (SUBLIMAZE) INTRAVENOUS X (OR/PROCEDURE) PRN - lidocaine (PF) 20 mg/mL (2 %) injection (XYLOCAINE) SUBCUTANEOUS X (OR/PROCEDURE) PRN - fentaNYL 50 mcg/mL 25 mcg injection (SUBLIMAZE) 25 mcg INTRAVENOUS q 1 H PRN - keTORolac 15 mg injection (TORADOL) 15 mg INTRAVENOUS q 6 H PRN Outpatient Medications as of 05/22/2022 Medication Sig - carvedilol (COREG) 12.5 mg tablet Take by mouth. - oxybutynin (DITROPAN) 5 mg tablet Take by mouth. - OZEMPIC 0.25 mg or 0.5 mg(2 mg/1.5 mL) pen INJECT 0.5MG SUBCUTANEOUSLY WEEKLY - azithromycin (ZITHROMAX) 250 mg tablet Take by mouth as directed. TAKE 2 TABLETS BY MOUTH TODAY, THEN TAKE 1 TABLET DAILY FOR 4 DAYS - cefUROXime (CEFTIN) 500 mg tablet Take 500 mg by mouth q 12 HR. - ciprofloxacin HCl (CIPRO) 500 mg tablet Cipro 500 mg Tab See Instructions, Take 1 tab day prior to procedure and 1 tab day of procdure - afterwards, # 2 tab(s), Refills(s) 0, Pharmacy: [facility]/pharmacy #[id number] Start Date: 08/22/19 Status: Ordered - nystatin-triamcinolone (MYCOLOG II) cream Apply to affected area twice daily. APPLY TO AFFECTED AREA - tiZANidine (ZANAFLEX) 4 mg tablet TAKE 1/2 TO 1 TABLET BY MOUTH AT BEDTIME NEEDED I have interviewed and examined the patient. I have reviewed the medical record and/or the pre-anesthesia evaluation, pertinent labs, and test results. This contains updated information obtained within 48 hours of Surgery/Procedure. SIGNATURE: Chapo Alcala DO PATIENT NAME: Taras Hayward DATE: May 22, 2022 TIME: 12:55 PM CSN: [id number] Normal [facility] BRIEF OP NOTon 05-22-2022 BRIEF OP NOT HNO ID: [id number] Author: Tejinder Quezada MD Service: Radiology Author Type: Physician Type: Brief Op Note Filed: 05/22/2022 10:29 AM Note Text: OPERATIVE/PROCEDURE REPORT LOG ID: [id number] SURGERY/PROCEDURE DATE: 05/22/2022 INCISION/PROCEDURE START TIME: 8:33 AM INCISION CLOSE/PROCEDURE END TIME: 10:13 AM SURGEON(S)/PROCEDURALIST(S) AND REVISING CLERK(S): Surgeon(s) and Role: * Tejinder Quezada MD - Primary No Additional Staff SURGERY/PROCEDURE(S): - Right nephrostogram (upper pole): The large stone seen at the UPJ in the prior CT has now moved into the lower pole. After discussing with Dr Andrews during the procedure, we changed the plan to access the lower pole (instead of interpolar calyx) - 6F Straight nephroureteral catheter placed through the lower pole calyx along side the stone and capped. Patient has an indwelling JJ stent in-situ ANESTHESIA: Procedural Sedation SURGERY/PROCEDURE DETAILS: see above PRE-OP/PRE-PROCEDURE DIAGNOSIS: stone POST-OP/POST-PROCEDURE DIAGNOSIS: Same as Preop ESTIMATED BLOOD LOSS: 5 mls SPECIMENS: None IMPLANTABLE DEVICES: NONE DRAINS: None COMPLICATIONS: None PARTICIPATION IN SURGERY/PROCEDURE: I/primary surgeon/proceduralist performed the procedure with assistance. SIGNATURE: Tejinder Quezada MD PATIENT NAME: Taras Hayward DATE: May 22, 2022 TIME: 10:22 AM Normal [facility] Bacteria Ur Culton 2 Bacteria identified Cx Nom (U) CULTURE, URINE: No growth (<100 CFU/ml) Normal [facility] Comment on above: Performed By: #### 6 30-4 ####[facility] [id number] [place] [address] [place] Basic metabolic 2000 panelon 05-22-2022 Anion gap [Moles/Vol] 12 mmol/L Normal 9-18 [facility] Comment on above: Order Comment: Speci men Type: BLOOD SPECIMENOrdering Facility: [facility] Address: [address] [address] Performed By: #### 2 4321-2 ####[facility] [id number] [place] [address] [place] Calcium [Mass/Vol] 8.8 mg/dL Normal 8.5-10.2 [facility] Comment on above: Order Comment: Speci men Type: BLOOD SPECIMENOrdering Facility: [facility] Address: [address] [address] Performed By: #### 2 4321-2 ####[facility] [id number] [place] [address] [place] Chloride [Moles/Vol] 105 mmol/L Normal 97-105 [facility] Comment on above: Order Comment: Speci men Type: BLOOD SPECIMENOrdering Facility: [facility] Address: [address] [address] Performed By: #### 2 4321-2 ####[facility] [id number] [place] [address] [place] CO2 [Moles/Vol] 22 mmol/L Normal 22-30 [facility] Comment on above: Order Comment: Speci men Type: BLOOD SPECIMENOrdering Facility: [facility] Address: [address] [address] Performed By: #### 2 4321-2 ####[facility] [id number] [place] [address] [place] Creatinine [Mass/Vol] 1.02 mg/dL Normal 0.73-1.22 [facility] Comment on above: Order Comment: Speci men Type: BLOOD SPECIMENOrdering Facility: [facility] Address: [address] [place] [address] Performed By: #### 2 4321-2 ####[facility] [id number] [address] OF [facility] ESTIMATED GLOMERULAR FILTRATION RATE 90 mL/min/1.73m??? Normal >=60 [facility] Comment on above: Order Comment: Speci men Type: BLOOD SPECIMENOrdering Facility: [facility] Address: [address] [place] [address] Result Comment: Paloma mated Glomerular Filtration Rate (eGFR) is calculated using the 2020 CKD-EPI creatinine equation. This equation utilizes serum creatinine, sex, and age as parameters. The creatinine assay has traceable calibration to isotope dilution-mass spectrometry. Refer to KDIGO guidelines for clinical interpretation. In patients with unstable renal function, e.g. those with acute kidney injury, the eGFR may not accurately reflect actual GFR. Performed By: #### 2 4321-2 ####[facility] [id number] [place] [address] [place] Glucose [Mass/Vol] 143 mg/dL High 74-99 [facility] Comment on above: Order Comment: Speci men Type: BLOOD SPECIMENOrdering Facility: [facility] Address: [address] [place] [address] Result Comment: The [place] Diabetes Association (ADA) provides guidance for cutoff values for fasting glucose and random glucose. The ADA defines fasting as no caloric intake for at least 8 hours. Fasting plasma glucose results between 100 to 125 mg/dL indicate increased risk for diabetes (prediabetes). Fasting plasma glucose results greater than or equal to 126 mg/dL meet the criteria for diagnosis of diabetes. In the absence of unequivocal hyperglycemia, results should be confirmed by repeat testing. In a patient with classic symptoms of hyperglycemia or hyperglycemic crisis, random plasma glucose results greater than or equal to 200 mg/dL meet the criteria for diagnosis of diabetes. Reference: Standards of Medical Care in Diabetes 2016, [place] [employer] Association. Diabetes Care. 2016.39(Suppl 1). Performed By: #### 2 4321-2 ####[facility] [id number] [place] [address] [place] Potassium [Moles/Vol] 4.4 mmol/L Normal 3.7-5.1 [facility] Comment on above: Order Comment: Speci men Type: BLOOD SPECIMENOrdering Facility: [facility] Address: [address] [address] Performed By: #### 2 4321-2 ####[facility] [id number] [place] [address] [place] Sodium [Moles/Vol] 139 mmol/L Normal 136-144 [facility] Comment on above: Order Comment: Speci men Type: BLOOD SPECIMENOrdering Facility: [facility] Address: [address] [address] Performed By: #### 2 4321-2 ####[facility] [id number] [place] [address] [place] Urea nitrogen [Mass/Vol] 17 mg/dL Normal 9-24 [facility] Comment on above: Order Comment: Speci men Type: BLOOD SPECIMENOrdering Facility: [facility] Address: [address] [address] Performed By: #### 2 4321-2 ####[facility] [id number] [address] [place] CALCULI ANALYSISon 2 Calculus analysis [Interp] Normal [facility] Comment on above: Order Comment: Speci men Type: BLOOD SPECIMEN Ordering Facility: [facility] Address: [address] [place] [address] Result Comment: This test was developed and its performance characteristics determined by [facility] [place] ([facility]). It has not been cleared or approved by the FDA. [facility] is regulated under CLIA as qualified to perform high-complexity testing. This test is used for clinical purposes. It should not be regarded as investigational or for research. Performed By: #### 2 4321-2 #### [facility] CLIA [id number] [facility] [address] [place] CALCULUS COLOR BROWN AND BEIGE Normal [facility] Comment on above: Order Comment: Speci men Type: BLOOD SPECIMEN Ordering Facility: [facility] Address: [address] [address] Performed By: #### 2 4321-2 #### [facility] CLIA [id number] [address] OF [facility] CALCULUS COMPOSITION 1 60% Calcium Phosphate Normal [facility] Comment on above: Order Comment: Speci men Type: BLOOD SPECIMEN Ordering Facility: [facility] Address: [address] [address] Performed By: #### 2 4321-2 #### [facility] CLIA [id number] [address] OF [place] CALCULUS COMPOSITION 2 30% Calcium Oxala te Monohydrate Normal [facility] Comment on above: Order Comment: Speci men Type: BLOOD SPECIMEN Ordering Facility: [facility] Address: [address] [place] [address] Performed By: #### 2 4321-2 #### [facility] CLIA [id number] [address] STATES [place] CALCULUS COMPOSITION 3 10% Minor Components Normal [facility] Comment on above: Order Comment: Speci men Type: BLOOD SPECIMEN Ordering Facility: [facility] Address: [address] [place] [address] Performed By: #### 2 4321-2 #### [facility] CLIA [id number] [address] [place] [address] [place] CALCULUS SIZE AND WT Multiple pieces. 0. 4795 GRAMS Normal [facility] Comment on above: Order Comment: Speci men Type: BLOOD SPECIMEN Ordering Facility: [facility] Address: [address] [place] [address] Performed By: #### 2 4321-2 #### [facility] CLIA [id number] [address] [place] [address] [place] CALCULUS TYPE Calculus, CALCULI/CALCULUS Normal [facility] Comment on above: Order Comment: Speci men Type: BLOOD SPECIMEN Ordering Facility: [facility] Address: [address] [place], [place] [address] Performed By: #### 2 4321-2 #### [facility] CLIA [id number] [address] [place] [address] [place] CBC W Auto Differential pane l (Bld)on 05-22-2022 Basophils (Bld) [#/Vol] 10*3/uL Normal <0.11 [facility] Comment on above: Order Comment: Speci men Type: BLOOD SPECIMEN Ordering Facility: [facility] Address: [address] Performed By: #### 5 7021-8 #### [facility] CLIA [id number] [address] [place] [address] [place] Basophils/100 WBC (Bld) 0.2 % Normal [facility] Comment on above: Order Comment: Speci men Type: BLOOD SPECIMEN Ordering Facility: [facility] Address: [address] Performed By: #### 5 7021-8 #### [facility] CLIA [id number] [address] [place] [address] [place] Differential cell count method Nom (Bld) Auto Normal [facility] Comment on above: Order Comment: Speci men Type: BLOOD SPECIMEN Ordering Facility: [facility] Address: [address] Performed By: #### 5 7021-8 #### [facility] CLIA [id number] [address] [place] [address] [place] Eosinophils (Bld) [#/Vol] 10*3/uL Normal <0.46 [facility] Comment on above: Order Comment: Speci men Type: BLOOD SPECIMEN Ordering Facility: [facility] Address: [address] Performed By: #### 5 7021-8 #### [facility] CLIA [id number] [address] [place] [address] [place] Eosinophils/100 WBC (Bld) 0.0 % Normal [facility] Comment on above: Order Comment: Speci men Type: BLOOD SPECIMEN Ordering Facility: [facility] Address: [address] [place], [place] [address] Performed By: #### 5 7021-8 #### [facility] CLIA [id number] [address] [place] [address] [place] Erythrocyte distribution width (RBC) [Ratio] 14.2 % Normal 11.5-15.0 [facility] Comment on above: Order Comment: Speci men Type: BLOOD SPECIMEN Ordering Facility: [facility] Address: [address] [place] [address] Performed By: #### 5 7021-8 #### [facility] CLIA [id number] [address] [place] [address] [place] Hematocrit (Bld) [Volume fraction] 44.1 % Normal 39.0-51.0 [facility] Comment on above: Order Comment: Speci men Type: BLOOD SPECIMEN Ordering Facility: [facility] Address: [address] [place] [address] Performed By: #### 5 7021-8 #### [facility] CLIA [id number] [address] [place] [address] [place] Hemoglobin (Bld) [Mass/Vol] 13.9 g/dL Normal 13.0-17.0 [facility] Comment on above: Order Comment: Speci men Type: BLOOD SPECIMEN Ordering Facility: [facility] Address: [address] [place], [place] [address] Performed By: #### 5 7021-8 #### [facility] CLIA [id number] [address] [place] [address] [place] Immature granulocytes (Bld) [#/Vol] 0.06 10*3/uL Normal <0.10 [facility] Comment on above: Order Comment: Speci men Type: BLOOD SPECIMEN Ordering Facility: [facility] Address: [address] [place], [place] [address] Performed By: #### 5 7021-8 #### [facility] CLIA [id number] [address] [place] [address] [place] Immature granulocytes/100 WBC (Bld) 0.5 % Normal [facility] Comment on above: Order Comment: Speci men Type: BLOOD SPECIMEN Ordering Facility: [facility] Address: [address] Performed By: #### 5 7021-8 #### [facility] CLIA [id number] [address] [place] [address] [place] Lymphocytes (Bld) [#/Vol] 0.77 10*3/uL Low 1.00-4.00 [facility] Comment on above: Order Comment: Speci men Type: BLOOD SPECIMEN Ordering Facility: [facility] Address: [address] [address] Performed By: #### 5 7021-8 #### [facility] CLIA [id number] [address] [place] [address] [place] Lymphocytes/100 WBC (Bld) 6.5 % Normal [facility] Comment on above: Order Comment: Speci men Type: BLOOD SPECIMEN Ordering Facility: [facility] Address: [address] Performed By: #### 5 7021-8 #### [facility] CLIA [id number] [address] [place] [address] [place] MCH (RBC) [Entitic mass] 28.2 pg Normal 26.0-34.0 [facility] Comment on above: Order Comment: Speci men Type: BLOOD SPECIMEN Ordering Facility: [facility] Address: [address] Performed By: #### 5 7021-8 #### [facility] CLIA [id number] [address] [place] [address] [place] MCHC (RBC) [Mass/Vol] 31.5 g/dL Normal 30.5-36.0 [facility] Comment on above: Order Comment: Speci men Type: BLOOD SPECIMEN Ordering Facility: [facility] Address: [address] Performed By: #### 5 7021-8 #### [facility] CLIA [id number] [address] [place] [address] [place] MCV (RBC) [Entitic vol] 89.5 fL Normal 80.0-100.0 [facility] Comment on above: Order Comment: Speci men Type: BLOOD SPECIMEN Ordering Facility: [facility] Address: [address] [place] [address] Performed By: #### 5 7021-8 #### [facility] CLIA [id number] [address] [place] [address] [place] Monocytes (Bld) [#/Vol] 0.45 10*3/uL Normal <0.87 [facility] Comment on above: Order Comment: Speci men Type: BLOOD SPECIMEN Ordering Facility: [facility] Address: [address] [place] [address] Performed By: #### 5 7021-8 #### [facility] CLIA [id number] [address] [place] [address] [place] Monocytes/100 WBC (Bld) 3.8 % Normal [facility] Comment on above: Order Comment: Speci men Type: BLOOD SPECIMEN Ordering Facility: [facility] Address: [address] [place], [place] [id number] Performed By: #### 5 7021-8 #### [facility] CLIA [id number] [address] [place] [address] [place] Neutrophils (Bld) [#/Vol] 10.49 10*3/uL High 1.45-7.50 [facility] Comment on above: Order Comment: Speci men Type: BLOOD SPECIMEN Ordering Facility: [facility] Address: [address] [place], [place] [address] Performed By: #### 5 7021-8 #### [facility] CLIA [id number] [address] [place] [address] [place] Neutrophils/100 WBC (Bld) 89.0 % Normal [facility] Comment on above: Order Comment: Speci men Type: BLOOD SPECIMEN Ordering Facility: [facility] Address: [address] [place] [address] Performed By: #### 5 7021-8 #### [facility] CLIA [id number] [address] [place] [address] [place] Nucleated RBC (Bld) [#/Vol] 10*3/uL Normal <0.01 [facility] Comment on above: Order Comment: Speci men Type: BLOOD SPECIMEN Ordering Facility: [facility] Address: [address] [place], [place] [id number] Performed By: #### 5 7021-8 #### [facility] CLIA [id number] [address] [place] [address] [place] Nucleated RBC/100 WBC (Bld) [Ratio] 0.0 /100 WBC Normal [facility] Comment on above: Order Comment: Speci men Type: BLOOD SPECIMEN Ordering Facility: [facility] Address: [address] [place], [place] [phone] Performed By: #### 5 7021-8 #### [facility] CLIA [id number] [address] [place] [address] [place] Platelet mean volume (Bld) [Entitic vol] 9.3 fL Normal 9.0-12.7 [facility] Comment on above: Order Comment: Speci men Type: BLOOD SPECIMEN Ordering Facility: [facility] Address: [address] [place] [address] Performed By: #### 5 7021-8 #### [facility] CLIA [id number] [address] [place] [address] [place] Platelets (Bld) [#/Vol] 239 10*3/uL Normal 150-400 [facility] Comment on above: Order Comment: Speci men Type: BLOOD SPECIMEN Ordering Facility: [facility] Address: [address] [place], [place] [id number] Performed By: #### 5 7021-8 #### [facility] CLIA [id number] [address] [place] [address] [place] RBC (Bld) [#/Vol] 4.93 10*6/uL Normal 4.20-6.[address] [facility] Comment on above: Order Comment: Speci men Type: BLOOD SPECIMEN Ordering Facility: [facility] Address: [address] [place] [address] Performed By: #### 5 7021-8 #### [facility] CLIA [id number] [address] [place] [address] [place] WBC (Bld) [#/Vol] 11.79 10*3/uL High 3.70-11.00 [facility] Comment on above: Order Comment: Speci men Type: BLOOD SPECIMEN Ordering Facility: [facility] Address: [address] [place] [address] Performed By: #### 5 7021-8 #### [facility] CLIA [id number] [address] [place] [address] [place] HISTORY PHYSICALon HISTORY PHYSICAL HNO ID: [id number] Author: Tejinder Quezada MD Service: Interventional Radiology Author Type: Physician Type: HANDP Filed: 05/22/2022 7:29 AM Note Text: UPDATED PROCEDURAL SEDATION HISTORY AND PHYSICAL EXAMINATION SERVICE DATE: 05/22/2022 SERVICE TIME: 0710 PHYSICAL EXAM MUST BE COMPLETED ON ADMISSION PROCEDURE SCHEDULED: Procedure(s) with comments: PERC PLACEMENT NEPHROSTOMY CATH,INCLUDING DIAGNOSTIC NEPHROSTOGRAM/URETEROGRAM WHEN PERFORMED,IMAGING GUIDANCE AND ALL ASSOCIATED RAD JEANNETTE (N/A) - NEPH TUBE PLACE W/ PUP DR. COFFEY CALLING Please call Dr. Coffey before procedure starts RADIOLOGY ORDER PLACED: The History and Physical (completed in the past 30 days) has been reviewed and the patient has been examined. The contents accurately reflect the patient's condition with the following additions or revisions since the HANDP was completed. ASA Class: ASA Class:: Patient with mild systemic disease Examination indicates no changes. AIRWAY: Airway Visualization of Uvula: Yes Mouth opening greater than 2 fingerbreadths: Yes Neck Full Range of Motion: Yes LUNGS: clear to auscultation bilaterally CARDIAC: S1 and S2 normal, RRR Provisional Diagnosis/Treatment Plan: Taras Hayward is a 51 year old male who presents to Interventional Radiology for placement of nephrostomy catheter. - VSS - 05/09/22 labs reviewed and acceptable: SCr 0.98, platelets 295, T bili 0.8, K 4.8 - Patient is not on anticoagulation - Last PO intake 05/21/22 - No apparent contraindication with proceeding This HANDP can be found in the Electronic Medical Record dated 05/09/22. SIGNATURE: Ashely Noel APRN.CNP PATIENT NAME: Taras Hayward DATE: May 22, 2022 TIME: 7:11 AM PAGER: Normal [facility] IR NEPHROSTOMY TUBE PLACEon 05-22-[address] * * *Final Report* * * DATE OF EXAM: May 22 2022 10:13AM [facility] 0779 - IR NEPHROSTOMY TUBE PLACE / PROCEDURE REASON: multiple diagnoses * * * * Physician Interpretation * * * * PROCEDURE: RIGHT NEPHROURETERAL CATHETER PLACEMENT HISTORY: Right renal stone. NU placement requested for stone removal. CONSENT: Risks, benefits, treatment options, potential complications and personnel to be involved were discussed (including the risks of radiation exposure, contrast and anesthesia administration, and any equipment needed for the procedure to ensure best possible outcome) with the patient and all questions were answered and consent was obtained prior to procedure. MEDICATION RECONCILIATION: The patient's medications and allergies were reviewed in the electronic medical record and reconciled to the proposed procedure/treatment. DAKSHA-PROCEDURE DISCUSSION: The appropriate elements of the pre-procedure discussion, safety check list and sign-out were performed. TIME OUT: A time out was performed immediately prior to procedure start with the nursing, and interventional team, correctly identifying the name, date of , procedure, anatomy (including marking of site and side if applicable), patient position, procedure consent form, relevant diagnostic and radiology test results, antibiotic administration if applicable, safety precautions, and procedure-specific equipment needs. Start of procedure (Time out): 0833 End of procedure (Sign out): 1013 Patient position: Prone Anesthesia: After establishing pulse oximetry, BP and EKG monitoring by the Radiology nurse, moderate sedation with Versed and Fentanyl was administered. Intra-service time (monitoring for moderate sedation): 2 hr 10 minutes Patient monitoring: I personally supervised and directed an independent trained observer who assisted in monitoring the patient?s level of consciousness and physiological status throughout the procedure. Local anesthesia: 2 % lidocaine ANTIBIOTICS: Ancef Antibiotic infusion start time: N/A CONTRAST DOSE: 30 cc of OMNIPAQUE 350 was injected into the urinary system during the procedure. IMAGE GUIDANCE: Access was obtained into the target calyx under direct sonographic and fluoroscopic visualization. A sonographic image was obtained and placed into the permanent archive for documentation FLUOROSCOPIC RADIATION SUMMARY: Plane A, Air Kerma: 1700.0 mGy Dose Area Product (DAP): Fluoro Time: 12:12 min:sec Radiation dose exceed 5 Gy: No If radiation dose exceeded 5 Gy, was counseling and instructional brochure provided:N/A TECHNIQUE: The patient was prepped and draped using all elements of maximal sterile barrier technique (cap, mask, sterile gown, sterile gloves, a large sterile sheet, hand hygiene and cutaneous antisepsis), sterile ultrasound gel and sterile ultrasound probe covers. Access was obtained into the upper pole calyx using a 21G needle. The collecting system was opacified with small amount of contrast. The large stone seen at the UPJ in the prior CT has now moved into the lower pole. After discussing with Dr Andrews during the procedure, we changed the plan to access the lower pole (instead of interpolar calyx). Second, more definitive access was obtained into the lower pole calyx. The needle was removed over a guide wire and exchanged for a Zena set. Through this, a catheter and glide wire were successfully maneuvered beyond the stones and into the distal ureter. Over a wire, a #6 [place] straight nephroureteral catheter was placed with its tip in the distal ureter and the side-holes in the renal pelvis. The external end of the catheter was secured to the skin with suture material and sterile dressings were applied. RESULT: LATERALITY: RIGHT INDWELLING DEVICE: 6F straight nephroureteral catheter with side holes in renal pelvis During the procedure, the patient's pre-existing double J ureteral catheter remained in the ureter without any significant displacement. The patient tolerated the procedure well. There were no significant complications and no other complications during the procedure. CONCLUSION: The patient was comfortable and was transferred to the recovery room in stable condition. Estimated Blood Loss: Minimal Number and Type of Removed Specimens: none ATTENDING RADIOLOGIST: Tejinder Quezada M.D. REVISING CLERK: None The procedure was performed by the: attending radiologist, without an field administrative assistant. The attending radiologist performed the following procedural activities: Entire procedure IMPRESSION: - Right nephrostogram (upper pole): The large stone seen at the UPJ in the prior CT has now moved into the lower pole. After discussing with Dr Andrews during the procedure, we changed the plan to access the lower pole (instead of interpolar calyx) ? - 6F Straight nephroureteral catheter placed through the right lower pole calyx, (more content not included)... Normal [facility] NURSING PROGon 05-22-2022 NURSING PROG HNO ID: [id number] Author: Wilma Sahu RN Service: Nursing Author Type: Registered Nurse Type: Nursing Progress Note Filed: 05/22/2022 5:57 PM Note Text: Admission/Transfer Note PATIENT NAME: Taras Hayward Patient admitted from PACU via bed in stable condition. Actions taken: Patient oriented to room, call light function, prescribed activities, Patient rights, and Quiet at night. This note was completed by: Wilma Sahu [facility] OPERATIVE NOon 05-22-2022 OPERATIVE NO HNO ID: [id number] Author: Harsh Coffey MD Service: Urology Author Type: Physician Type: Operative Report Filed: 05/23/2022 7:34 PM Note Text: OPERATIVE/PROCEDURE REPORT LOG ID: [id number] Surgery/Procedure Date: 05/22/2022 Incision/Procedure Start Time: 2:31 PM Incision Close/Procedure End Time: 3:47 PM Surgeon(s)/Proceduralist(s) and Air Sampler(s): Surgeon(s) and Role: * Harsh Coffey MD - Primary * Jie Hurt MD - Resident - Assisting Procedure(s): Procedure(s) and Anesthesia Type: * PERCUTANEOUS NEPHROLITHOTOMY, STENT CHANGE - General Dilation of renal access tract RIGHT percutaneous nephrolithotomy > 2 cm max dimension RIGHT flexible ureteroscopy JJ stent insertion Physician time for fluoroscopic imaging and interpretation <1hr Anatomic Site: Kidney, Laterality: Right Approach: Endoscopic Anesthesia: General Operative Indications: This is a 51 year old male with a history of morbid obesity, nephrolithiasis, prior spontaneously passed, who now presents with RIGHT nephrolithiases with lower pole x 2 and largest stone in the with max dimension 2.7 cm. After discussing the risks, benefits, and alternatives of the procedure the patient has elected to pursue management of their condition via the aforementioned surgery. 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 The patient had a previously placed JJ stent. The patient was correctly identified and the operative plan was confirmed with the patient and the operative team. A weight appropriate dose of prophylactic antibiotics was administered intravenously prior to the procedure and sequential compression devices were applied to the lower extremities and activated prior to induction of anesthesia. General anesthesia was induced. A [address] catheter was placed with 10 cc in the balloon with return of clear urine.The patient was then placed in the prone position. All pressure points were padded per protocol and the operative area was prepped and draped in the standard sterile fashion. Contrast was injected through the nephrostomy tube for a pyelogram, confirming position of the nephroureteral catheter and the stone in the lower pole/UPJ. A super stiff catheter was placed through the nephroureteral cath and advanced to the bladder under fluoroscopy. The NU catheter was removed and the 8/10 Fr coaxial was placed over the wire and advanced to dilate the tract to 10 Fr. A stiff glide wire was placed through the coaxial and advanced to the bladder with fluoroscopy. An angled open-ended ([place]) catheter was passed over the stiff glide wire which was exchanged through the catheter for a super stiff wire, position confirmed in the bladder under fluoroscopy. The angled catheter was removed as was the 10 Fr coaxial sheath. The tract was incised at the skin for 10 mm. The Bard X-Force balloon was advanced over the wire and noted to enter the collecting system fluoroscopically. The renal tract was dilated to 30F using 30 atmospheres with good dilation of the tract. The working sheath was then advanced over the balloon and into the kidney under fluoroscopic guidance. The balloon was then removed, and the rigid nephroscope was inserted. Rigid nephroscopy was then performed, and the large, primary stone was visualized and removed with the Shock Pulse Ultrasonic probe with suction. Flexible nephroscopy was then performed and another stone fragment was seen in the upper mid pole, this was removed with a Halo basket. Some stone fragments were removed with graspers and sent for analysis. No other stones were seen. The JJ stent was removed with the graspers, it was intact. Flexible nephroscopy again confirmed there was no significant stone burden remaining. A flexible ureteroscopy was performed down to the bladder, no stones were observed. A stiff glide was passed through the ureteroscope and a 7 Fr x 30 cm ureteral stent was advanced to the bladder under fluoroscopy, curls confirmed in the bladder under fluroscopy and in the renal pelvis under direct visualization. The two super stiff wires and access sheath were removed. The skin incision was closed with a 2--0 polypropylene horizontal mattress stitch. Dressings were applied. Fluoroscopic interpretation of images was performed to evaluate for guidance of the ureteroscope, accurate guidewire placement, monitor tract dilation and confirm proper stent positioning. The patient tolerated the procedure well, emerged from anesthesia without incident, and was transferred to PACU in stable condition. Pre-Op/Pre-Procedure Diagnosis: Pre-Op Diagnosis Codes: * Nephrolithiasis [N20.0] Post-Op/Post-Procedure Diagnosis: Post-Op Di (more content not included)... Normal [facility] SURGICAL PATHOLOGYon CASE REPORT Normal [facility] Comment on above: Order Comment: Speci men Type: DEVICE SPECIMENOrdering Facility: [facility] Address: [address] [place] [id number] Result Comment: Surg ica Pathology Report Case: [id number] Authorizing Provider: Harsh Coffey MD Collected: 05/22/2022 03:11 PM Ordering Location: Admitting Received: 05/22/2022 04:23 PM Pathologist: Daxa Barlow MD Specimen: HARDWARE, Right Double J Stent for gross Performed By: #### S ####[facility] [id number] [address] [place] CLINICAL HISTORY Normal [facility] Comment on above: Order Comment: Speci men Type: DEVICE SPECIMENOrdering Facility: [facility] Address: [address] [place] [address] Result Comment: Pre- op diagnosis: Nephrolithiasis [N20.0] Performed By: #### S ####[facility] [id number] [address] OF [place] FINAL DIAGNOSIS Normal [facility] Comment on above: Order Comment: Speci men Type: DEVICE SPECIMENOrdering Facility: [facility] Address: [address] [place] [address] Result Comment: A. S ite not specified, hardware removal: -Grossly unremarkable stent (gross examination only). JKD/KSZ 05/23/2022 Performed By: #### S ####[facility] [id number] [address] FINAL PERFORMING LAB Normal [facility] Comment on above: Order Comment: Speci men Type: DEVICE SPECIMENOrdering Facility: [facility] Address: [address] [place] [address] Result Comment: Diag nostic interpretation performed at [facility], [address] [place] [address] CLIA# [id number] Neurosurgery Spine Physician: Manuel Mueller M.D. Performed By: #### S ####[facility] [id number] [address] OF [facility] GROSS DESCRIPTION A. HARDWARE Normal [facility] Comment on above: Order Comment: Speci men Type: DEVICE SPECIMENOrdering Facility: [facility] Address: [address] [place] [address] Result Comment: Rece ived in formalin, labeled right double-J stent is a royal plastic stent measuring 42 cm in length. There is no soft tissue present. The specimen is reviewed with Dr. Barlow. No sections are submitted. KSZ May 23, 2022 10:55 AM Gross examination performed at [facility], [address] [place] [address] Performed By: #### S ####[facility] [id number] [address] [id number] XR CHEST 1V FRONTAL PORTon 1 07-23-2021 XR CHEST 1V FRONTAL PORT * * *Final Report* * * DATE OF EXAM: May 22 2022 5:32PM ESX [id number] - XR CHEST 1V FRONTAL PORT / PROCEDURE REASON: Post-operative / post-procedure assessment, symptomatic * * * * Physician Interpretation * * * * EXAMINATION: CHEST RADIOGRAPH (PORTABLE SINGLE VIEW AP) Exam Date/Time: 05/22/2022 5:32 PM Clinical History: Post-operative / post-procedure assessment, symptomatic MQ: [id number] Comparison: None RESULT: Lines, tubes, and devices: None. Lungs and pleura: Low lung volumes with bibasilar atelectasis. Limited evaluation left lung base secondary to overlying soft tissues. Small left pleural effusion or infiltrate left lung base cannot be excluded and would be better evaluated with PA and lateral views. No pneumothorax. Cardiomediastinal silhouette: Stable cardiomediastinal silhouette. Other: Extra leads overlie the patient. IMPRESSION: Bibasilar atelectasis. Limited evaluation left lung base and follow-up PA and lateral recommended when possible. Bias Cutting Machine Operator: PSCB Transcribe Date/Time: May 22 2022 5:38P Dictated by : JACKY LI MD This examination was interpreted and the report reviewed and electronically signed by: BETH LOMBARDI MD on May 22 2022 5:55PM EST [id number] Normal [facility] ECG COMPLETEon 05-18-2022 ECG COMPLETE Ventricular Rate : 9 8 BPM Atrial Rate : 98 BPM P-R Interval : 196 ms QRS Duration : 88 ms Q-T Interval : 354 ms QTC Calculation(Bazett) : 451 ms Calculated P [place] : 6 degrees Calculated R [place] : 44 degrees Calculated T [place] : 31 degrees NORMAL SINUS RHYTHM NORMAL ECG Confirmed by NABEEL DIAZ MD ([id number]) on 05/21/2022 12:34:10 PM NAME : TARAS HAYWARD PID : [id number] : 1970 Gender : Male Race : ORD : [id number] Procedure Date : May 18 2022 14:39:40 Edit Date : May 21 2022 12:34:11 Diagnosis: NORMAL SINUS RHYTHM NORMAL ECG Confirmed by NABEEL DIAZ MD ([id number]) on 05/21/2022 12:34:10 PM Test Reason : Location : 119 : A17 A17 Overread By : NABEEL DIAZ MD Edited By : NABEEL DIAZ MD Referred By : CYNTHIA BLACKWOOD Acquired by : SWATI MCKEON [facility] HISTORY PHYSICALon HISTORY PHYSICAL HNO ID: [id number] Author: Cynthia Blackwood APRN.WATER TEAM LEADER Service: ? Author Type: Nurse Practitioner Type: HANDP Filed: 05/22/2022 6:52 AM Note Text: HISTORY AND PHYSICAL EXAMINATION SERVICE DATE: 05/18/2022 SERVICE TIME: 6:51 AM PRIMARY CARE PHYSICIAN: Awais Garcia DO REASON FOR VISIT: Taras Hayward is a 51 year old male who is scheduled for PERC PLACEMENT NEPHROSTOMY CATH,INCLUDING DIAGNOSTIC NEPHROSTOGRAM/URETEROGRAM WHEN PERFORMED,IMAGING GUIDANCE AND ALL ASSOCIATED RAD at the request of Dr. Tejinder Quezada MD for consultation. My final recommendation will be communicated back to the requesting physician by way of shared medical record or letter. Subjective The patient has the following: ACTIVE PROBLEM LIST Nephrolithiasis Family History of Nephrolithiasis Bmi 40.0-44.9, Adult (Hcc) History of Gastric Bypass Essential Hypertension Prediabetes Bladder Spasms Ureteral Stent Present COVID-19 Immunization Status COVID-19 VACCINE (5 - Booster for Moderna series) Next due on 06/06/2022 04/11/2022 Imm Admin: COVID-19 original vaccine, full dose, monovalent (MODERNA) 04/06/2021 Imm Admin: COVID-19 original vaccine, full dose, monovalent (MODERNA) 07/07/2020 Imm Admin: COVID-19 original vaccine, full dose, monovalent (MODERNA) Only the first 3 history entries have been loaded, but more history exists. Patient reports being fully vaccinated against COVID-19. Patient reports a prior COVID-19 infection, with an infection date of 05/2021. CHIEF COMPLAINT: Pre-Op Visit HPI: 51 year old male who has Nephrolithiasis since mid March 2022 seen for PACC. He is noted to have a 3 cm right renal calculus and currently has a right Ureteral stent. He states receiving his first stone s/p gastric bypass in 2015. PMH DM2, anxiety, HLN and obesity. He notes having hematuria and urinary frequency and urgency. He denies any flank pain or pain with urination. Scheduled for PERC PLACEMENT NEPHROSTOMY CATH,INCLUDING DIAGNOSTIC NEPHROSTOGRAM/URETEROGRAM WHEN PERFORMED,IMAGING GUIDANCE AND ALL ASSOCIATED RAD on 05/22/22. Denies any fever, chills, nausea, vomiting, SOB, dizziness, lightheadedness, palpitations, syncope, chest pain or abdominal pain. He has elected to proceed with the surgical procedure. REVIEW OF SYSTEMS: General: No weight loss, malaise or fevers. Neurological: No history of TIA's, stroke, WOODS MANAGER tumor, impaired sensorium, hemiplegia, paraplegia or quadraplegia. No neurological symptoms or problems. Negative for: seizures, TIA and strokes. Respiratory: Positive for: prior COVID-19 infection. Date of COVID-19 infection: 05/2021. Negative for: asthma, bronchitis, COPD, current cough, dyspnea, orthopnea, pneumonia within 6 weeks, tobacco use, URI < 2 weeks and obstructive sleep apnea. Cardiovascular: Positive for: hypertension Negative for: AICD/PPM, anticoagulation therapy, arrhythmia, atrial fibrillation, CAD, chest pain, CHF, DVT/PE, hyperlipidemia, recent KS and murmur/valvular heart disease. GI: No history of GI symptoms or problems. No history of esophageal varices, recent ascites, or ETOH greater than 2 drinks per day. : Positive for: frequent urination, hematuria, nephrolithiasis, nocturia >1 time per night and urgency. Negative for: dysuria, flank pain and urinary incontinence. Endocrine: Positive for: diabetes mellitus. Patient's diabetes mellitus is controlled by OZEMPIC SUBCUTANEOUSLY WEEKLY. Negative for: hyperthyroidism, hypothyroidism and hyperparathyroidism. Hematology: No history of bleeding or clotting disorder. Patient is not taking anti-coagulation or platelet medications. No history of hematological symptoms or problems. Oncology: No history of CA metastasis, chemo within 30 days, or radiotherapy within 90 days. No history of oncological symptoms or problems. Psych: Positive for: anxiety. Negative for: bipolar disorder, depression and drug dependency. Musculoskeletal: Negative for joint pain or swelling, back pain or muscle pain. Skin: Negative for lesions, rash and itching. No past medical history on file. No past surgical history on file. No family history on file. Social History Tobacco Use Smoking status: Never Smokeless tobacco: Never Substance Use Topics Alcohol use: Yes Alcohol/week: 1.0 standard drink Types: 1 Shots of liquor per week Comment: may have a drink every 6 months Drug use: Never Prior to Admission medications as of 05/22/22 0549 Medication Sig Last Dose Taking cholecalciferol, vitamin D3, (VITAMIN D3 ORAL) Take 5,000 Int'l Units/L by mouth once daily. Taking Yes cephALEXin (KEFLEX) 500 mg capsule Take 1 capsule by mouth four times daily. Taking Yes carvedilol (COREG) 12.5 mg tablet Take by mouth. Taking Yes OZEMPIC 0.25 mg or 0.5 mg(2 mg/1.5 mL) pen INJECT 0.5MG SUBCUTANEOUSLY WEEKLY Taking Yes azithromycin (ZITHROMAX) 250 mg tablet Take by mout (more content not included)... Normal [facility] HbA1c (Bld)on 05-18-2022 Average glucose Estimated from glycated hemoglobin (Bld) [Mass/Vol] 114 mg/dL Normal [facility] Comment on above: Order Comment: Speci men Type: BLOOD SPECIMENOrdering Facility: [facility] Address: [address] [id number] Result Comment: eAG: (Estimated average glucose) is a calculated value from HgbA1c and is representative phlebotomy services of the average blood glucose level in the last 2-3 month period. Performed By: #### 5 5454-3 ####[facility] [id number] [facility] [id number] [place] [address] [place] HbA1c (Bld) [Mass fraction] 5.6 % Normal 4.3-5.6 [facility] Comment on above: Order Comment: Speci men Type: BLOOD SPECIMENOrdering Facility: [facility] Address: [address] [place] [address] Result Comment: Michelle ican Diabetes Association guidelines indicate that patients with HgbA1c in the range 5.7-6.4% are at increased risk for development of diabetes, and intervention by lifestyle modification may be beneficial. HgbA1c greater or equal to 6.5% is considered diagnostic of diabetes. Performed By: #### 5 5454-3 ####[facility] LAB[facility]IA [id number] LINDSAYYousif [place]ON[place]K [id number] [id number] [facility] NURSING PROGon 05-15-2022 NURSING PROG HNO ID: [id number] Author: Edis Garza RN Service: Nursing Author Type: Registered Nurse Type: Nursing Progress Note Filed: 05/15/2022 11:17 AM Note Text: Pre-procedure instructions: Contacted Taras and teo appt. for neph tube w/PUP scheduled on Sunday05/22/22, at [facility]. I will wait while you get a pen and paper, if instructions are not followed your procedure may need to be cancelled or rescheduled. Diet: Do not eat solid food after midnight the night before your procedure. You may have water until your arrival time. Stop tube feeding at midnight the night before your procedure. Medications: IF ok with your Prescribing Provider: RADIOLOGY RECOMMENDS THESE MEDICATION RESTRICTIONS: Take as prescribed. Stop oral hypoglycemic the day of this procedure Hold short acting insulin the day of procedure. Long acting insulin, take ? dose. If on mixed insulin - if BG> than 200 should take half the dose. If BG less < 200- don't take. Medication pumps: Insulin pumps must be removed before entering the procedure room. Do you wear Neulasta Onpro? No If yes, the devise must be removed before entering the procedure room. Contrast Dye Prep: Do you have a contrast dye allergy? No Labs: Labs completed on 05/09/22. Arrival: Please bring your Photo ID and Insurance Card. A general consent may need to be signed. Arrival at 0600 to desk QB-1 ([place]) and check in for your procedure. Agriscience Instructor/Transportation: How will you be arriving for your procedure? Private car. If you will be arriving at [facility] via ambulance or public transportation, please call to discuss. You will need a responsible adult to accompany you to and from the procedure. Your bulk driver is required to stay with you until you are taken into the Procedure room. If you develop any of the following symptoms before your procedure, please call [phone]. Chills, joint pain, rash, sore throat, cough, loss of smell, reddened eyes, vomiting, abdominal pains, diarrhea, loss of taste, severe headache, weakness, bruising or bleeding, fever, muscle pain, shortness of breath Recovery expectations: You can expect to be at the hospital for the majority of the day. Please do not schedule any other appointments the day of your procedure. You will be staying overnight after the procedure. Special concerns: Do you use CPAP or BPAP? No If you use CPAP or BiPAP, please call to discuss. Written instructions provided to patient via [employer]target If you have any questions please call [phone] Normal [facility] Maco 05-10-2022 NICOLEN Telephone (MARISOL) TARAS HAYWARD ([id number]) 1970 M Date Time Provider Department 05/10/22 DELLA FREDERICK During your visit today, we recorded the following information about you: Della Frederick RN 05/10/2022 11:27 AM Signed Called and spoke with patient regarding appointment. Dr. Coffey did speak with IR, patient it scheduled on 05/22/22 for IR perc placement and RPCNL surgery. Did advise patient that PACC appointment will also be scheduled, and someone will reach out to him regarding a date and time to be set up before surgery. Also informed patient that due to his decreased Vitamin D, per Dr Coffey, he is to start OTC vit. D3 5000 units daily for 6 months, then 2000 units daily thereafter. Patient verbalized understanding. Della Frederick RN May 10, 2022 11:27 AM Allergies As of Date: 05/10/2022 (No Known Allergies) Date Reviewed: 05/09/2022 Reviewed by: Aislinn Mendoza MA - Fully Assessed Reason for Visit: Appointment [186] Prescriptions as of 05/10/2022 - azithromycin (ZITHROMAX) 250 mg tablet Take by mouth as directed. TAKE 2 TABLETS BY MOUTH TODAY, THEN TAKE 1 TABLET DAILY FOR 4 DAYS - carvedilol (COREG) 12.5 mg tablet Take by mouth. - cefUROXime (CEFTIN) 500 mg tablet Take 500 mg by mouth q 12 HR. - ciprofloxacin HCl (CIPRO) 500 mg tablet Cipro 500 mg Tab See Instructions, Take 1 tab day prior to procedure and 1 tab day of procdure - afterwards, # 2 tab(s), Refills(s) 0, Pharmacy: [facility]/pharmacy #[id number] Start Date: 08/22/19 Status: Ordered - nystatin-triamcinolone (MYCOLOG II) cream Apply to affected area twice daily. APPLY TO AFFECTED AREA - oxybutynin (DITROPAN) 5 mg tablet Take by mouth. - OZEMPIC 0.25 mg or 0.5 mg(2 mg/1.5 mL) pen INJECT 0.5MG SUBCUTANEOUSLY WEEKLY - tiZANidine (ZANAFLEX) 4 mg tablet TAKE 1/2 TO 1 TABLET BY MOUTH AT BEDTIME NEEDED Problem List As Of Date 05/10/2022 Noted Resolved Nephrolithiasis [N20.0] 05/09/2022 Family history of nephrolithiasis [Z84.1] 05/09/2022 BMI 40.0-44.9, adult (HCC) [Z68.41] 05/09/2022 History of gastric bypass [Z98.84] 05/09/2022 Essential hypertension [I10] 05/09/2022 Prediabetes [R73.03] 05/09/2022 Bladder spasms [N32.89] 05/09/2022 Ureteral stent present [Z96.0] 05/09/2022 Encounter Status:Closed by DELLA FREDERICK on 05/10/22 Normal [facility] 25(OH)D3 SerPl-mCncon 2021 25-hydroxyvitamin D3 [Mass/Vol] 15.9 ng/mL Low 31.0-80.0 [facility] Comment on above: Order Comment: Speci men Type: BLOOD SPECIMEN Ordering Facility: [facility] Address: [address] [place] [address] Result Comment: Clas sification of 25 [place] Vitamin D status: Deficiency/Insufficiency: < or = 30 ng/ml. Sufficiency/Optimal Levels: 31-80 ng/mL Toxicity: > 100 ng/mL. Test performed by chemiluminescent immunoassay. Performed By: #### 2 4321-2 #### [facility] CLIA [id number] [address] [facility] [place] [address] [place] Bacteria Ur Culton 2 Bacteria identified Cx Nom (U) ORGANISM ID: 1 >=100,000 CFU/ml Klebsiella pneumoniae ORGANISM ID: 1 (KLEBSIELLA PNEUMONIAE) --------- ANTIBIOTIC INTERPRETATION SAI STATUS REFERENCE RANGE --------- Ampicillin R >=32 F Susceptible <=8 , Intermediate >8 , Resistant >16 Ampicillin/Sulbact S <=2 F Susceptible <=8 , Intermediate >8 , Resistant >16 Cefazolin S <=4 F Susceptible 0-16 , Intermediate <0 or >16 , Resistant >16 Cefepime S <=1 F Susceptible <=2 , Intermediate >2 , Resistant >=16 Ceftriaxone S <=1 F Susceptible <=1 , Intermediate >1 , Resistant >=4 Ciprofloxacin S <=0.25 F Susceptible <0.5 , Intermediate >=.5 , Resistant >=1 Ertapenem S <=0.5 F Susceptible <=0.5 , Intermediate >.5 , Resistant >1 Gentamicin S <=1 F Susceptible <=4 , Intermediate >4 , Resistant >8 Meropenem S <=0.25 F Susceptible <=1 , Intermediate >1 , Resistant >2 Nitrofurantoin S 32 F Susceptible <=32 , Intermediate >32 , Resistant >64 Piperacillin/Tazobac S <=4 F Susceptible <=16 , Intermediate >16 , Resistant >64 Tobramycin S <=1 F Susceptible <=4 , Intermediate >4 , Resistant >8 Trimeth sulfameth S <=20 F Susceptible <=40 , Resistant >40 Abnormal [facility] Comment on above: Performed By: #### 6 30-4 ####[facility]IA [id number] [place] [address] [place] CBC W Auto Differential pane l (Bld)on 05-09-2022 Basophils (Bld) [#/Vol] <0.11 k/uL [facility] Basophils/100 WBC (Bld) 0.2 % [facility] Differential cell count method Nom (Bld) Auto [facility] Eosinophils (Bld) [#/Vol] 0.05 10*3/uL <0.46 k/uL [facility] Eosinophils/100 WBC (Bld) 0.6 % [facility] Erythrocyte distribution width (RBC) [Ratio] 14.3 % 11.5 - 15.0 % [facility] Hematocrit (Bld) [Volume fraction] 46.1 % 39.0 - 51.0 % [facility] Hemoglobin (Bld) [Mass/Vol] 14.8 g/dL 13.0 - 17.0 g/dL [facility] Immature granulocytes (Bld) [#/Vol] 0.03 10*3/uL <0.10 k/uL [facility] Immature granulocytes/100 WBC (Bld) 0.4 % [facility] Lymphocytes (Bld) [#/Vol] 2.20 10*3/uL 1.00 - 4.00 k/uL [facility] Lymphocytes/100 WBC (Bld) 26.4 % [facility] MCH (RBC) [Entitic mass] 28.0 pg 26.0 - 34.[address] [facility] MCHC (RBC) [Mass/Vol] 32.1 g/dL 30.5 - 36.0 g/dL [facility] MCV (RBC) [Entitic vol] 87.1 fL 80.0 - 100.[address] [facility] Monocytes (Bld) [#/Vol] 0.74 10*3/uL <0.87 k/uL [facility] Monocytes/100 WBC (Bld) 8.9 % [facility] Neutrophils (Bld) [#/Vol] 5.29 10*3/uL 1.45 - 7.50 k/uL [facility] Neutrophils/100 WBC (Bld) 63.5 % [facility] Nucleated RBC (Bld) [#/Vol] <0.01 k/uL [facility] Nucleated RBC/100 WBC (Bld) [Ratio] 0.0 /[address] [facility] Platelet mean volume (Bld) [Entitic vol] 10.3 fL 9.0 - 12.[address] [facility] Platelets (Bld) [#/Vol] 295 10*3/uL 150 - 400 k/uL [facility] RBC (Bld) [#/Vol] 5.29 10*6/uL 4.20 - 6.00 m/uL [facility] WBC (Bld) [#/Vol] 8.33 10*3/uL 3.70 - 11.00 k/uL [facility] Basophils (Bld) [#/Vol] 10*3/uL Normal <0.11 [facility] Comment on above: Order Comment: Speci men Type: BLOOD SPECIMEN Ordering Facility: [facility] Address: [address] [place] [address] Performed By: #### 2 4321-2 #### [facility] CLIA [id number] [address] [place] [address] [place] Basophils/100 WBC (Bld) 0.2 % Normal [facility] Comment on above: Order Comment: Speci men Type: BLOOD SPECIMEN Ordering Facility: [facility] Address: [address] Performed By: #### 2 4321-2 #### [facility] CLIA [id number] [address] [place] [address] [place] Differential cell count method Nom (Bld) Auto Normal [facility] Comment on above: Order Comment: Speci men Type: BLOOD SPECIMEN Ordering Facility: [facility] Address: [address] Performed By: #### 2 4321-2 #### [facility] CLIA [id number] [address] [place] [address] [place] Eosinophils (Bld) [#/Vol] 0.05 10*3/uL Normal <0.46 [facility] Comment on above: Order Comment: Speci men Type: BLOOD SPECIMEN Ordering Facility: [facility] Address: [address] Performed By: #### 2 4321-2 #### [facility] CLIA [id number] [address] [place] Eosinophils/100 WBC (Bld) 0.6 % Normal [facility] Comment on above: Order Comment: Speci men Type: BLOOD SPECIMEN Ordering Facility: [facility] Address: [address] [place] [address] Performed By: #### 2 4321-2 #### [facility] CLIA [id number] [address] [place] [address] [place] Erythrocyte distribution width (RBC) [Ratio] 14.3 % Normal 11.5-15.0 [facility] Comment on above: Order Comment: Speci men Type: BLOOD SPECIMEN Ordering Facility: [facility] Address: [address] Performed By: #### 2 4321-2 #### [facility] CLIA [id number] [address] [place] [address] [place] Hematocrit (Bld) [Volume fraction] 46.1 % Normal 39.0-51.0 [facility] Comment on above: Order Comment: Speci men Type: BLOOD SPECIMEN Ordering Facility: [facility] Address: [address] Performed By: #### 2 4321-2 #### [facility] CLIA [id number] [address] [place] [address] [place] Hemoglobin (Bld) [Mass/Vol] 14.8 g/dL Normal 13.0-17.0 [facility] Comment on above: Order Comment: Speci men Type: BLOOD SPECIMEN Ordering Facility: [facility] Address: [address] Performed By: #### 2 4321-2 #### [facility] CLIA [id number] [facility] [place] [address] [place] Immature granulocytes (Bld) [#/Vol] 0.03 10*3/uL Normal <0.10 [facility] Comment on above: Order Comment: Speci men Type: BLOOD SPECIMEN Ordering Facility: [facility] Address: [address] [place] [address] Performed By: #### 2 4321-2 #### [facility] CLIA [id number] [address] [place] Immature granulocytes/100 WBC (Bld) 0.4 % Normal [facility] Comment on above: Order Comment: Speci men Type: BLOOD SPECIMEN Ordering Facility: [facility] Address: [address] [place] [address] Performed By: #### 2 4321-2 #### [facility] CLIA [id number] [address] [place] [address] [facility] [place] Lymphocytes (Bld) [#/Vol] 2.20 10*3/uL Normal 1.00-4.00 [facility] Comment on above: Order Comment: Speci men Type: BLOOD SPECIMEN Ordering Facility: [facility] Address: [address] [place] [address] Performed By: #### 2 4321-2 #### [facility] CLIA [id number] [address] [place] Lymphocytes/100 WBC (Bld) 26.4 % Normal [facility] Comment on above: Order Comment: Speci men Type: BLOOD SPECIMEN Ordering Facility: [facility] Address: [address] [place] [address] Performed By: #### 2 4321-2 #### [facility] CLIA [id number] [facility] [place] [address] [place] MCH (RBC) [Entitic mass] 28.0 pg Normal 26.0-34.0 [facility] Comment on above: Order Comment: Speci men Type: BLOOD SPECIMEN Ordering Facility: [facility] Address: [address] [place] [address] Performed By: #### 2 4321-2 #### [facility] CLIA [id number] [facility] [place] [address] [place] MCHC (RBC) [Mass/Vol] 32.1 g/dL Normal 30.5-36.0 [facility] Comment on above: Order Comment: Speci men Type: BLOOD SPECIMEN Ordering Facility: [facility] Address: [address] [place], [place] [address] Performed By: #### 2 4321-2 #### [facility] CLIA [id number] [address] [place] [address] [place] MCV (RBC) [Entitic vol] 87.1 fL Normal 80.0-100.0 [facility] Comment on above: Order Comment: Speci men Type: BLOOD SPECIMEN Ordering Facility: [facility] Address: [address] Performed By: #### 2 4321-2 #### [facility] CLIA [id number] [address] [place] [address] [place] Monocytes (Bld) [#/Vol] 0.74 10*3/uL Normal <0.87 [facility] Comment on above: Order Comment: Speci men Type: BLOOD SPECIMEN Ordering Facility: [facility] Address: [address] Performed By: #### 2 4321-2 #### [facility] CLIA [id number] [address] [place] [address] [place] Monocytes/100 WBC (Bld) 8.9 % Normal [facility] Comment on above: Order Comment: Speci men Type: BLOOD SPECIMEN Ordering Facility: [facility] Address: [address] Performed By: #### 2 4321-2 #### [facility] CLIA [id number] [address] [place] [address] [place] Neutrophils (Bld) [#/Vol] 5.29 10*3/uL Normal 1.45-7.50 [facility] Comment on above: Order Comment: Speci men Type: BLOOD SPECIMEN Ordering Facility: [facility] Address: [address] Performed By: #### 2 4321-2 #### [facility] CLIA [id number] [address] [place] [address] [place] Neutrophils/100 WBC (Bld) 63.5 % Normal [facility] Comment on above: Order Comment: Speci men Type: BLOOD SPECIMEN Ordering Facility: [facility] Address: [address] Performed By: #### 2 4321-2 #### [facility] CLIA [id number] [address] [place] [address] [place] Nucleated RBC (Bld) [#/Vol] 10*3/uL Normal <0.01 [facility] Comment on above: Order Comment: Speci men Type: BLOOD SPECIMEN Ordering Facility: [facility] Address: [address] [place] [address] Performed By: #### 2 4321-2 #### [facility] CLIA [id number] [address] [place] [address] [place] Nucleated RBC/100 WBC (Bld) [Ratio] 0.0 /100 WBC Normal [facility] Comment on above: Order Comment: Speci men Type: BLOOD SPECIMEN Ordering Facility: [facility] Address: [address] [place] [address] Performed By: #### 2 4321-2 #### [facility] CLIA [id number] [address] [place] [address] [place] Platelet mean volume (Bld) [Entitic vol] 10.3 fL Normal 9.0-12.7 [facility] Comment on above: Order Comment: Speci men Type: BLOOD SPECIMEN Ordering Facility: [facility] Address: [address] [place], [place] [address] Performed By: #### 2 4321-2 #### [facility] CLIA [id number] [address] [place] [address] [place] Platelets (Bld) [#/Vol] 295 10*3/uL Normal 150-400 [facility] Comment on above: Order Comment: Speci men Type: BLOOD SPECIMEN Ordering Facility: [facility] Address: [address] [place], [place] [address] Performed By: #### 2 4321-2 #### [facility] CLIA [id number] [address] [place] [address] [place] RBC (Bld) [#/Vol] 5.29 10*6/uL Normal 4.20-6.[address] [facility] Comment on above: Order Comment: Speci men Type: BLOOD SPECIMEN Ordering Facility: [facility] Address: [address] [place] [id number] Performed By: #### 2 4321-2 #### [facility] CLIA [id number] [address] [place] [address] [place] WBC (Bld) [#/Vol] 8.33 10*3/uL Normal 3.70-11.[address] [facility] Comment on above: Order Comment: Speci men Type: BLOOD SPECIMEN Ordering Facility: [facility] Address: [address] [place] [address] Performed By: #### 2 4321-2 #### [facility] CLIA [id number] [address] [place] [address] OF [place] CNOVon 05-09-2022 CNOV Office Visit (UROLMN ) TARAS HAYWARD ([id number]) 1970 M Date Time Provider Department 05/09/22 1:00 PM HARSH COFFEY During your visit today, we recorded the following information about you: Pulse Blood pressure Weight Height 108/minute 130/88 161 kg 1.905 m Aislinn Mendoza MA 05/09/2022 4:29 PM Addendum LORRAINE Patient was assigned the Dr. Coffey patient instruction module from the [employer] platform. Patient was provided instructions on how to access LORRAINE. The patient was instructed to call the provider?s office with any questions. Patient states understanding and has the provider?s office number/contact information via [employer]. MARTÍNEZ Whitlock MD 05/09/2022 4:29 PM Signed STAFF UROLOGY NOTE: We had the pleasure of seeing Taras Hayward in our Multidisciplinary Stone Clinic today. Consultation requested by Dr. Lilly for an opinion regarding 3 cm right renal calculus. My final recommendations will be communicated back to the requesting physician by way of shared Medical record or letter to requesting physician via US mail. He is a pleasant 51 year old male who first had a stone episode in 2016. He has passed 3 stones He has had a prior 24-hour urine metabolic evaluation. He has had 0 shockwave lithotripsies, 0 ureteroscopies and 0 percutaneous nephrolithotomies He has the following family history of stones: Side of Family Relationship Number of Stones Paternal Father Significant comorbidities include:MedicalDiabetes,Hyp ertension,Gastric Bypass The patient is currently asymptomatic. . He was counseled on the most recent imaging studies. CT Scan Imaging Date: March, Stone Side Location Length (mm) Width (mm) HU STSD 1 R lower pole 9 2 R lower pole 4 3 R UPJ 27 900 21 cm 4 5 Renal US or KUB Imaging Date: Stone Side Location Length (mm) Width (mm) 1 2 3 4 5 He was counseled on the options of: 1. Observation - risks including stone growth, stone movement, pain, impact on renal function. Chance of spontaneous stone passage of the largest stone: 0% 2. Shockwave lithotripsy - risks of bleeding (1 in 1000 severe bleed), residual fragments, need for a secondary procedure. Success based on size, location, hounsfield units and itaa-er-sczpe distance: 2% 3. Ureteroscopy - risks of UTI, ureteral injury (1 in 1000 severe injury requiring major surgery), morbidity from ureteral stent Success: 50% 4. PCNL - risks of lung injury (1%), transfusion (5%), embolization (1%), injury to other organs, need for secondary procedure. Success: 95% Imp: The primary encounter diagnosis was Nephrolithiasis. Diagnoses of Family history of nephrolithiasis, BMI 40.0-44.9, adult (HCC), History of gastric bypass, Essential hypertension, Prediabetes, Bladder spasms, and Ureteral stent present were also pertinent to this visit. Plan: Based on this discussion, he wishes to undergo right PCNL, probably with IR access; Discussed at length. Harsh Coffey MD Director, Surgical Stone Disease [facility] [place] [facility], [facility] Pager [phone] 05/09/2022 Referring Provider: KONRAD LILLY [[id number]] Allergies As of Date: 05/09/2022 (No Known Allergies) Date Reviewed: 05/09/2022 Reviewed by: Aislinn Mendoza MA - Fully Assessed Reason for Visit: Consult [173] Primary Visit Diagnosis:Nephrolithiasis [N20.0] Other Visit Diagnoses:Family history of nephrolithiasis [Z84.1] BMI 40.0-44.9, adult (HCC) [Z68.41] History of gastric bypass [Z98.84] Essential hypertension [I10] Prediabetes [R73.03] Bladder spasms [N32.89] Ureteral stent present [Z96.0] Abnormal urinalysis [R82.90] Order(s):CBC + DIFF [SQCBCDIF] Order #: [id number] FUTURE COMP METABOLIC PANEL [SQCMP] Order #: [id number] FUTURE PTH INTACT BLD [SQPTHI] Order #: [id number] FUTURE VITAMIN D 25 HYDROXY [SQVITD] Order #: [id number] FUTURE URIC ACID BLOOD [SQURIC] Order #: [id number] FUTURE IR NEPHROSTOMY TUBE PLACE [] Order #: [id number] REFER TO P[facility] - PRE [facility] [8841204] Order #: [id number]: 1 FUTURE CONFIRM BLOOD TYPE [SQCONABO] Order #: [id number] FUTURE TYPE AND SCREEN,30 DAY [ZVOSEQ51] Order #: [id number] FUTURE URINE CULTURE [SQURCUL] Order #: [id number]. #:[id number] Prescriptions as of 05/09/2022 - azithromycin (ZITHROMAX) 250 mg tablet Take by mouth as directed. TAKE 2 TABLETS BY MOUTH TODAY, THEN TAKE 1 TABLET DAILY FOR 4 DAYS - carvedilol (COREG) 12.5 mg tablet Take by mouth. - cefUROXime (CEFTIN) 500 mg tablet Take 500 mg by mouth q 12 HR. - ciprofloxacin HCl (CIPRO) 500 mg tablet Cipro 500 mg Tab See Instructions, Take 1 tab day prior to procedure and 1 tab day of procdure - afterwards, # 2 tab(s), Refills(s) 0, Pharmacy: [id number] Start Date: 08/22/19 Status: Ordered - nystatin-triamcinolone (MYCOLOG II (more content not included)... Normal [facility] CONFIRM BLOOD TYPEon [address] [facility] Rh Nom (Bld) Positive [facility] ABO O Normal [facility] Comment on above: Order Comment: Speci men Type: BLOOD SPECIMENOrdering Facility: [facility] Address: [address] [address] Performed By: #### C ONABO ####CC [facility] BLO[facility] BANKCLIA [id number] [address] Rh Nom (Bld) Positive Normal [facility] Comment on above: Order Comment: Speci men Type: BLOOD SPECIMENOrdering Facility: [facility] Address: [address] [address] Performed By: #### C ONABO ####CC MA[facility] BLOOD BANKCLIA [id number] [address] Comprehensive metabolic 2000 panelon 05-09-2022 Albumin [Mass/Vol] 4.2 g/dL 3.9 - 4.9 g/dL [facility] ALP [Catalytic activity/Vol] 87 U/L 38 - 113 U/L [facility] ALT [Catalytic activity/Vol] 17 U/L 10 - 54 U/L [facility] Anion gap [Moles/Vol] 12 mmol/L 9 - 18 mmol/L [facility] AST [Catalytic activity/Vol] 15 U/L 14 - 40 U/L [facility] Bilirubin [Mass/Vol] 0.8 mg/dL 0.2 - 1 .3 mg/dL [facility] Calcium [Mass/Vol] 9.3 mg/dL 8.5 - 10. 2 mg/dL [facility] Chloride [Moles/Vol] 105 mmol/L 97 - 10 5 mmol/L [facility] CO2 [Moles/Vol] 24 mmol/L 22 - 30 mmol/L [facility] Creatinine [Mass/Vol] 0.98 mg/dL 0.73 - 1.22 mg/dL [facility] Estimated Glomerular Filtration Rate 95 mL/min/1.73m >=60 mL/min/1.[address] [facility] Glucose [Mass/Vol] 107 mg/dL High 74 - 99 mg/dL [facility] Potassium [Moles/Vol] 4.8 mmol/L 3.7 - 5.1 mmol/L [facility] Protein [Mass/Vol] 7.2 g/dL 6.3 - 8.0 g/dL [facility] Sodium [Moles/Vol] 141 mmol/L 136 - 144 mmol/L [facility] Urea nitrogen [Mass/Vol] 17 mg/dL 9 - 24 mg/dL [facility] Albumin [Mass/Vol] 4.2 g/dL Normal 3.9-4.9 [facility] Comment on above: Order Comment: Speci men Type: BLOOD SPECIMEN Ordering Facility: [facility] Address: [address] [place] [address] Performed By: #### 2 4321-2 #### [facility] CLIA [id number] [address] [place] [address] [place] ALP [Catalytic activity/Vol] 87 U/L Normal 38-113 [facility] Comment on above: Order Comment: Speci men Type: BLOOD SPECIMEN Ordering Facility: [facility] Address: [address] [place] [address] Performed By: #### 2 4321-2 #### [facility] CLIA [id number] [address] [place] [address] [place] ALT [Catalytic activity/Vol] 17 U/L Normal 10-54 [facility] Comment on above: Order Comment: Speci men Type: BLOOD SPECIMEN Ordering Facility: [facility] Address: [address] [place] [address] Performed By: #### 2 4321-2 #### [facility] CLIA [id number] [address] [place] [address] [place] Anion gap [Moles/Vol] 12 mmol/L Normal 9-18 [facility] Comment on above: Order Comment: Speci men Type: BLOOD SPECIMEN Ordering Facility: [facility] Address: [address] Performed By: #### 2 4321-2 #### [facility] CLIA [id number] [address] [place] [address] [place] AST [Catalytic activity/Vol] 15 U/L Normal 14-40 [facility] Comment on above: Order Comment: Speci men Type: BLOOD SPECIMEN Ordering Facility: [facility] Address: [address] Performed By: #### 2 4321-2 #### [facility] CLIA [id number] [address] [place] [address] [place] Bilirubin [Mass/Vol] 0.8 mg/dL Normal 0.2-1.3 [facility] Comment on above: Order Comment: Speci men Type: BLOOD SPECIMEN Ordering Facility: [facility] Address: [address] Performed By: #### 2 4321-2 #### [facility] CLIA [id number] [address] [place] [address] [place] Calcium [Mass/Vol] 9.3 mg/dL Normal 8.5-10.2 [facility] Comment on above: Order Comment: Speci men Type: BLOOD SPECIMEN Ordering Facility: [facility] Address: [address] [place] [address] Performed By: #### 2 4321-2 #### [facility] CLIA [id number] [address] [place] [address] [place] Chloride [Moles/Vol] 105 mmol/L Normal 97-105 [facility] Comment on above: Order Comment: Speci men Type: BLOOD SPECIMEN Ordering Facility: [facility] Address: [address] Performed By: #### 2 4321-2 #### [facility] CLIA [id number] [address] [place] [address] [place] CO2 [Moles/Vol] 24 mmol/L Normal 22-30 [facility] Comment on above: Order Comment: Speci men Type: BLOOD SPECIMEN Ordering Facility: [facility] Address: [address] [address] Performed By: #### 2 4321-2 #### [facility] CLIA [id number] [address] [place] [address] [place] Creatinine [Mass/Vol] 0.98 mg/dL Normal 0.73-1.22 [facility] Comment on above: Order Comment: Speci men Type: BLOOD SPECIMEN Ordering Facility: [facility] Address: [address] [place] [address] Performed By: #### 2 4321-2 #### [facility] CLIA [id number] [address] [place] [address] [place] ESTIMATED GLOMERULAR FILTRATION RATE 95 mL/min/1.73m??? Normal >=60 [facility] Comment on above: Order Comment: [place] men Type: BLOOD SPECIMEN Ordering Facility: [facility] Address: [address] [place] [address] Result Comment: Paloma mated Glomerular Filtration Rate (eGFR) is calculated using the 2020 CKD-EPI creatinine equation. This equation utilizes serum creatinine, sex, and age as parameters. The creatinine assay has traceable calibration to isotope dilution-mass spectrometry. Refer to KDIGO guidelines for clinical interpretation. In patients with unstable renal function, e.g. those with acute kidney injury, the eGFR may not accurately reflect actual GFR. Performed By: #### 2 4321-2 #### [facility] CLIA [id number] [address] [place] [address] [place] Glucose [Mass/Vol] 107 mg/dL High 74-99 [facility] Comment on above: Order Comment: Speci men Type: BLOOD SPECIMEN Ordering Facility: [facility] Address: [address] [place], [place] [id number] Result Comment: The [place] [employer] (ADA) provides guidance for cutoff values for fasting glucose and random glucose. The ADA defines fasting as no caloric intake for at least 8 hours. Fasting plasma glucose results between 100 to 125 mg/dL indicate increased risk for diabetes (prediabetes). Fasting plasma glucose results greater than or equal to 126 mg/dL meet the criteria for diagnosis of diabetes. In the absence of unequivocal hyperglycemia, results should be confirmed by repeat testing. In a patient with classic symptoms of hyperglycemia or hyperglycemic crisis, random plasma glucose results greater than or equal to 200 mg/dL meet the criteria for diagnosis of diabetes. Reference: Standards of Medical Care in Diabetes 2016, [place] [employer]. Diabetes Care. 2016.39(Suppl 1). Performed By: #### 2 4321-2 #### [facility] CLIA [id number] [address] [place] [address] [place] Potassium [Moles/Vol] 4.8 mmol/L Normal 3.7-5.1 [facility] Comment on above: Order Comment: Speci men Type: BLOOD SPECIMEN Ordering Facility: [facility] Address: [address] Performed By: #### 2 4321-2 #### [facility] CLIA [id number] [address] [place] [address] [place] Protein [Mass/Vol] 7.2 g/dL Normal 6.3-8.0 [facility] Comment on above: Order Comment: Speci men Type: BLOOD SPECIMEN Ordering Facility: [facility] Address: [address] Performed By: #### 2 4321-2 #### [facility] CLIA [id number] [facility] [place] [address] [place] Sodium [Moles/Vol] 141 mmol/L Normal 136-144 [facility] Comment on above: Order Comment: Speci men Type: BLOOD SPECIMEN Ordering Facility: [facility] Address: [address] Performed By: #### 2 4321-2 #### [facility] CLIA [id number] [address] [place] [address] [place] Urea nitrogen [Mass/Vol] 17 mg/dL Normal 9-24 [facility] Comment on above: Order Comment: Speci men Type: BLOOD SPECIMEN Ordering Facility: [facility] Address: [address] Performed By: #### 2 4321-2 #### [facility] CLIA [id number] [address] [place] [address] [place] PTH INTACT BLDon 05-09-2022 Parathyrin.intact [Mass/Vol] 80 pg/mL High 15 - 65 pg/mL [facility] PTH-Intact SerPl-mCncon - Parathyrin.intact [Mass/Vol] 80 pg/mL High 15-65 [facility] Comment on above: Order Comment: Speci men Type: BLOOD SPECIMEN Ordering Facility: [facility] Address: [address] Performed By: #### 2 4321-2 #### [facility] CLIA [id number] [address] [place] TYPE AND SCREEN,[address] [facility] HIstorical Ab Scr Status Negative [facility] Rh Nom (Bld) Positive [facility] ABO O Normal [facility] Comment on above: Order Comment: Speci men Type: BLOOD SPECIMENOrdering Facility: [facility] Address: [address] Performed By: #### T [id number] ####CC [facility] BLOOD BANKCLIA [id number] [address] [place] HISTORICAL AB SCR STATUS Negative Normal [facility] Comment on above: Order Comment: Speci men Type: BLOOD SPECIMENOrdering Facility: [facility] Address: [address] Performed By: #### T [id number] ####CC [facility] BLOOD BANKIA [id number] [place] [address] [place] Rh Nom (Bld) Positive Normal [facility] Comment on above: Order Comment: Speci men Type: BLOOD SPECIMENOrdering Facility: [facility] Address: [address] [place] [address] Performed By: #### T SCR30 ####CC [facility] BLOOD [facility] [id number] [place] [address] [place] URIC ACID BLOODon 05-09-2022 Urate [Mass/Vol] 5.6 mg/dL 4.0 - 8.1 mg/dL [facility] URINALYSIS, REFLEX MICROSCOP ICon 05-09-2022 Bacteria LM.HPF (Urine sed) [#/Area] Many Abnormal None Seen [facility] Comment on above: Order Comment: Speci men Type: URINE SPECIMENOrdering Facility: [facility] Address: [address] [place] [address] Performed By: #### L [id number] ####[facility] [id number] [place] [address] [place] [facility] Bilirubin Ql (U) Negative Normal Negative [facility] Comment on above: Order Comment: Speci men Type: URINE SPECIMENOrdering Facility: [facility] Address: [address] [place], [place] [address] Performed By: #### L [id number] ####[facility] LABCLIA [id number] [place] [address] [place] Clarity (Unsp spec) Cloudy Abnormal Clear [facility] Comment on above: Order Comment: Speci men Type: URINE SPECIMENOrdering Facility: [facility] Address: [address] [place], [place] [address] Performed By: #### L [id number] ####[facility] LABCLIA [id number] [address] STATES OF [facility] Color (U) [place] Abnormal Yellow [facility] Comment on above: Order Comment: Speci men Type: URINE SPECIMENOrdering Facility: [facility] Address: [address] Performed By: #### L [id number] ####[facility] LABCLIA [id number] [address] [place] Glucose Test strip (U) [Mass/Vol] Negative Normal Negative [facility] Comment on above: Order Comment: Speci men Type: URINE SPECIMENOrdering Facility: [facility] Address: [address] Performed By: #### L [id number] ####[facility] LABCLIA [id number] [address] [place] Hemoglobin Ql (U) 3+ Abnormal Negative [facility] Comment on above: Order Comment: Speci men Type: URINE SPECIMENOrdering Facility: [facility] Address: [address] Performed By: #### L [id number] ####[facility] LABCLIA [id number] [address] [place] Ketones Ql (U) Negative Normal Negative [facility] Comment on above: Order Comment: Speci men Type: URINE SPECIMENOrdering Facility: [facility] Address: [address] Performed By: #### L [id number] ####[facility] LABCLIA [id number] [address] [place] Leukocyte esterase Test strip Ql (U) 500 Katrina/mL Abnormal Negative [facility] Comment on above: Order Comment: Speci men Type: URINE SPECIMENOrdering Facility: [facility] Address: [address] Performed By: #### L [id number] ####[facility] LABCLIA [id number] [place] [address] [place] Nitrite Ql (U) Negative Normal Negative [facility] Comment on above: Order Comment: Speci men Type: URINE SPECIMENOrdering Facility: [facility] Address: [address] [place] [address] Performed By: #### L [id number] ####[facility]IA [id number] [place] [address] [place] pH (U) 6.0 [pH] Normal 5.0-8.0 [facility] Comment on above: Order Comment: Speci men Type: URINE SPECIMENOrdering Facility: [facility] Address: [address] [place] [address] Performed By: #### L [id number] ####[facility]IA [id number] [address] OF [facility] Protein (U) [Mass/Vol] 2+ Abnormal Negative [facility] Comment on above: Order Comment: Speci men Type: URINE SPECIMENOrdering Facility: [facility] Address: [address] [place] [address] Performed By: #### L [id number] ####[facility]IA [id number] [place] [address] [place] RBC LM.HPF (Urine sed) [#/Area] /[HPF] Abnormal 0-3 /HPF [facility] Comment on above: Order Comment: Speci men Type: URINE SPECIMENOrdering Facility: [facility] Address: [address] [place] [address] Performed By: #### L [id number] ####[facility]IA [id number] [address] [place] Specific gravity (U) [Rel density] 1.019 Normal 1.005-1.03 0 [facility] Comment on above: Order Comment: Speci men Type: URINE SPECIMENOrdering Facility: [facility] Address: [address] [address] Performed By: #### L [id number] ####[facility] LABCLIA [id number] [place] [address] [place] Urobilinogen Ql (U) Negative Normal Negative [facility] Comment on above: Order Comment: Speci men Type: URINE SPECIMENOrdering Facility: [facility] Address: [address] [place] [address] Performed By: #### L [id number] ####[facility] LABCLIA [id number] [place] [address] [place] WBC LM.HPF (Urine sed) [#/Area] /[HPF] Abnormal 0-5 /HPF [facility] Comment on above: Order Comment: Speci men Type: URINE SPECIMENOrdering Facility: [facility] Address: [address] [place] [address] Performed By: #### L [id number] ####[facility] LABCLIA [id number] [place] [address] [place] Urate SerPl-mCncon 2 Urate [Mass/Vol] 5.6 mg/dL Normal 4.0-8.1 [facility] Comment on above: Order Comment: Speci men Type: BLOOD SPECIMEN Ordering Facility: [facility] Address: [address] [place] [address] Performed By: #### 2 4321-2 #### [facility] CLIA [id number] [address] [place] [address] [place] VITAMIN D 25 HYDROXYon 05-09 25-hydroxyvitamin D3 [Mass/Vol] 15.9 ng/mL Low 31.0 - 80.0 ng/mL [facility] XR KUB 1 VIEWon 04-12-2022 XR KUB 1 VIEW EXAMINATION: XR KUB 1 VIEW HISTORY: Kidney stone follow-up COMPARISON: XR KUB 03/29/2022 FINDINGS: KIDNEY/URETER - RIGHT: Stable large 3 cm stone within right renal pelvis and approximately 9 mm stone within inferior pole. Stable positioning of the right ureteral stent. KIDNEY/URETER - LEFT: No visible renal or ureteral calcifications. PELVIS: No visible ureteral stones. BOWEL: No abnormal dilation or deviation. BONES: No acute abnormality. OTHER: Negative. No abnormal gaseous collections. IMPRESSION: 1. Grossly stable right nephrolithiasis and right ureteral stent. Electronically authenticated by: INÉS WARREN Date: 2022-04-11 22:28 Normal [facility] CBC AUTO DIFFon 03-30-2022 BASO # 0.0 103/ul Normal 0.0-0.1 [facility] Comment on above: Performed By: #### I NFLUAB #### [facility] [address] [place] [address] Dr. Lissa Sage Basophils/100 WBC (Bld) 0.1 % Critically low 0.2-2.0 [facility] Comment on above: Performed By: #### I NFLUAB #### [facility] [address] [place] [address] Dr. Lissa Sage EO # 0.0 103/ul Normal 0.0-0.7 [facility] Comment on above: Performed By: #### I NFLUAB #### [facility] [address] [place] [address] Dr. Lisas Sage Eosinophils/100 WBC (Bld) 0.0 % Critically low 0.9-7.0 [facility] Comment on above: Performed By: #### I NFLUAB #### [facility] [address] [place] [address] Dr. Lissa Sage Erythrocyte distribution width (RBC) [Ratio] 14.2 % Normal 11.0-15.0 [facility] Comment on above: Performed By: #### I NFLUAB #### [facility] [address] [place] [address] Dr. Lissa Sage Hematocrit (Bld) [Volume fraction] 38.0 % Critically low 42.0-54.0 [facility] Comment on above: Performed By: #### I NFLUAB #### [facility] [address] [place] [address] Dr. Lissa aSge Hemoglobin (Bld) [Mass/Vol] 12.0 g/dL Critically low 14.0-18.0 [facility] Comment on above: Performed By: #### I NFLUAB #### [facility] [address] [place] [address] Dr. Lissa Sage IG # 0.09 10e3/ul Critically high 0.00-0.03 [facility] Comment on above: Performed By: #### I NFLUAB #### [facility] [address] [place] [address] Dr. Lissa Sage IG % 0.8 % Critically high 0.0-0.5 [facility] Comment on above: Performed By: #### I NFLUAB #### [facility] [address] [place] [address] Dr. Lissa Sage LYMPH # 0.9 103/ul Critically low 1.2-3.8 [facility] Comment on above: Performed By: #### I NFLUAB #### [facility] [address] [place] [address] Dr. Lissa Sage Lymphocytes/100 WBC (Bld) 7.2 % Critically low 20.5-60.0 [facility] Comment on above: Performed By: #### I NFLUAB #### [facility] [address] [place] [address] Dr. Lissa Sage MANUAL DIFF REQ NO Normal [facility] Comment on above: Performed By: #### I NFLUAB #### [facility] [address] [place] [address] Dr. Lissa Sage MCH (RBC) [Entitic mass] 28.4 pg Normal 25.9-34.0 [facility] Comment on above: Performed By: #### I NFLUAB #### [facility] [address] [place] [address] Dr. Lissa Sage MCHC (RBC) [Mass/Vol] 31.6 g/dL Normal 29.9-35.2 [facility] Comment on above: Performed By: #### I NFLUAB #### [facility] [address] [place] [address] Dr. Lissa Sage MCV (RBC) [Entitic vol] 89.8 fL Normal 80.0-94.0 [facility] Comment on above: Performed By: #### I NFLUAB #### [facility] [address] [place] [address] Dr. Lissa Sage MONO # 0.7 103/ul Normal 0.3-0.8 [facility] Comment on above: Performed By: #### I NFLUAB #### [facility] [address] [place] [address] Dr. Lissa Sage Monocytes/100 WBC (Bld) 5.6 % Normal 1.7-12.0 [facility] Comment on above: Performed By: #### I NFLUAB #### [facility] [address] [place] [address] Dr. Lissa Sage NEUT # 10.3 103/ul Critically high 1.4-6.5 [facility] Comment on above: Performed By: #### I NFLUAB #### [facility] [address] [place] [address] Dr. Lissa Sage Neutrophils/100 WBC (Bld) 86.3 % Critically high 43.0-75.0 [facility] Comment on above: Performed By: #### I NFLUAB #### [facility] [address] [place] [address] Dr. Lissa Sage Platelet mean volume (Bld) [Entitic vol] 10.1 fL Normal 9.5-13.5 [facility] Comment on above: Performed By: #### I NFLUAB #### [facility] [address] [place] [address] Dr. Lissa Sage PLT 198 103/ul Normal 150-450 [facility] Comment on above: Performed By: #### I NFLUAB #### [facility] [address] [place] [address] Dr. Lissa Sage RBC 4.23 106/ul Critically low 4.70-6.10 [facility] Comment on above: Performed By: #### I NFLUAB #### [facility] [address] [place] [address] Dr. Lissa Sage WBC 11.9 103/ul Critically high 4.0-11.0 [facility] Comment on above: Performed By: #### I NFLUAB #### [facility] [address] [place] [address] Dr. Lissa Sage CULTURE URINEon 03-30-2022 CULTURE URINE Isolate 1 Klebsiella pneumoniae >100,000 cfu/mL of ORGANISM 1 Klebsiella pneumoniae ANTIBIOTIC M.I.C RX STATUS Ampicillin 16 R F Ampicillin/Sulbactam <=2 S F Piperacillin/Tazobactam <=4 S F Cefazolin <=4 S F Ceftazidime <=1 S F Ceftriaxone <=1 S F Ertapenem <=0.5 S F Imipenem <=0.25 S F Amikacin <=2 S F Gentamicin <=1 S F Tobramycin <=1 S F Ciprofloxacin <=0.25 S F Levofloxacin <=0.12 S F Nitrofurantoin 32 S F Trimethoprim/Sulfamethoxazo le <=20 S F Normal [facility] Comment on above: Performed By: #### I NFLUAB #### [facility] [address] [place] [address] Dr. Lissa Sage PROF CHEM 8 (BAS METB)on Anion gap [Moles/Vol] 7.7 mmol/L Normal [facility] Comment on above: Performed By: #### B MP #### [facility] [address] [place] [address] Dr. Lissa Sage Calcium [Mass/Vol] 8.6 mg/dL Normal 8.5-10.1 [facility] Comment on above: Performed By: #### B MP #### [facility] [address] [place] [address] Dr. Lissa Sage Chloride [Moles/Vol] 105 mmol/L Normal 98-107 [facility] Comment on above: Performed By: #### B MP #### [facility] [address] [place] [address] Dr. Lissa Sage CO2 [Moles/Vol] 26.9 mmol/L Normal 21.0-32.0 [facility] Comment on above: Performed By: #### B MP #### [facility] [address] [place] [address] Dr. Lissa Sage Creatinine [Mass/Vol] 1.07 mg/dL Normal 0.70-1.30 [facility] Comment on above: Performed By: #### B MP #### [facility] [address] [place] [address] Dr. Lissa Sage EGFR-AF OMANI >60 Normal >=60 [facility] Comment on above: Performed By: #### B MP #### [facility] [address] [address] [address] Lissa Sage EGFR-NON AF OMANI >60 Normal >=60 [facility] Comment on above: Performed By: #### B MP #### [facility] [address] [place] [address] Dr. Lissa Sage Glucose [Mass/Vol] 174 mg/dL Critically high 74-106 T [facility] Comment on above: Performed By: #### B MP #### [facility] [address] [place] [address] Dr. Lissa Sage Potassium [Moles/Vol] 4.6 mmol/L Normal 3.5-5.1 [facility] Comment on above: Performed By: #### B MP #### [facility] [address] [place] [address] Dr. Lissa Sage Sodium [Moles/Vol] 135 mmol/L Critically low 136-145 Th [facility] Comment on above: Performed By: #### B MP #### [facility] [address] [place] [address] Dr. Lissa Sage Urea nitrogen [Mass/Vol] 17.0 mg/dL Normal 7.0-18.0 [facility] Comment on above: Performed By: #### B MP #### [facility] [address] [place] [address] Dr. Lissa Sage Urea nitrogen/Creatinine [Mass ratio] 15.9 mg/mg Normal [facility] Comment on above: Performed By: #### B MP #### [facility] [address] [place] [address] Dr. Lissa Sage CBC AUTO DIFFon 03-29-2022 BASO # 0.0 103/ul Normal 0.0-0.1 [facility] Comment on above: Performed By: #### L IPID, CMP, TSH #### [facility] [address] [place] [address] Dr. Lissa Sage Basophils/100 WBC (Bld) 0.2 % Normal 0.2-2.0 [facility] Comment on above: Performed By: #### L IPID, CMP, TSH #### [facility] [address] [place] [address] Dr. Lissa Sage EO # 0.0 103/ul Normal 0.0-0.7 [facility] Comment on above: Performed By: #### L IPID, CMP, TSH #### [facility] [address] [place] [address] Dr. Lissa Sage Eosinophils/100 WBC (Bld) 0.1 % Critically low 0.9-7.0 [facility] Comment on above: Performed By: #### L IPID, CMP, TSH #### [facility] [address] [place] [address] Dr. iLssa Sage Erythrocyte distribution width (RBC) [Ratio] 14.5 % Normal 11.0-15.0 [facility] Comment on above: Performed By: #### L IPID, CMP, TSH #### [facility] [address] [place] [address] Dr. Lissa Sage Hematocrit (Bld) [Volume fraction] 40.0 % Critically low 42.0-54.0 [facility] Comment on above: Performed By: #### L IPID, CMP, TSH #### [facility] [address] [place] [address] Dr. Lissa Sage Hemoglobin (Bld) [Mass/Vol] 12.6 g/dL Critically low 14.0-18.0 [facility] Comment on above: Performed By: #### L IPID, CMP, TSH #### [facility] [address] [place] [address] Dr. Lissa Sage IG # 0.09 10e3/ul Critically high 0.00-0.03 [facility] Comment on above: Performed By: #### L IPID, CMP, TSH #### [facility] [address] [place] [address] Dr. Lissa Sage IG % 0.6 % Critically high 0.0-0.5 [facility] Comment on above: Performed By: #### L IPID, CMP, TSH #### [facility] [address] [place] [address] Dr. Lissa Sage LYMPH # 1.5 103/ul Normal 1.2-3.8 [facility] Comment on above: Performed By: #### L IPID, CMP, TSH #### [facility] [address] [place] [address] Dr. Lissa Sage Lymphocytes/100 WBC (Bld) 11.0 % Critically low 20.5-60.0 [facility] Comment on above: Performed By: #### L IPID, CMP, TSH #### [facility] [address] [place] [address] Dr. Lissa Sage MANUAL DIFF REQ NO Normal [facility] Comment on above: Performed By: #### L IPID, CMP, TSH #### [facility] [address] [place] [address] Dr. Lissa Sage MCH (RBC) [Entitic mass] 28.3 pg Normal 25.9-34.0 [facility] Comment on above: Performed By: #### L IPID, CMP, TSH #### [facility] [address] [place] [address] Dr. Lissa Sage MCHC (RBC) [Mass/Vol] 31.5 g/dL Normal 29.9-35.2 [facility] Comment on above: Performed By: #### L IPID, CMP, TSH #### [facility] [address] [place] [address] Dr. Lissa Sage MCV (RBC) [Entitic vol] 89.7 fL Normal 80.0-94.0 [facility] Comment on above: Performed By: #### L IPID, CMP, TSH #### [facility] [address] [place] [address] Dr. Lissa Sage MONO # 1.1 103/ul Critically high 0.3-0.8 [facility] Comment on above: Performed By: #### L IPID, CMP, TSH #### [facility] [address] [place] [address] Dr. Lissa Sage Monocytes/100 WBC (Bld) 8.2 % Normal 1.7-12.0 [facility] Comment on above: Performed By: #### L IPID, CMP, TSH #### [facility] [address] [place] [address] Dr. Lissa Sage NEUT # 11.2 103/ul Critically high 1.4-6.5 [facility] Comment on above: Performed By: #### L IPID, CMP, TSH #### [facility] [address] [place] [address] Dr. Lissa Sage Neutrophils/100 WBC (Bld) 79.9 % Critically high 43.0-75.0 [facility] Comment on above: Performed By: #### L IPID, CMP, TSH #### [facility] [address] [place] [address] Dr. Lissa Sage Platelet mean volume (Bld) [Entitic vol] 10.0 fL Normal 9.5-13.5 [facility] Comment on above: Performed By: #### L IPID, CMP, TSH #### [facility] [address] [place] [address] Dr. Lissa Sage PLT 194 103/ul Normal 150-450 [facility] Comment on above: Performed By: #### L IPID, CMP, TSH #### [facility] [address] [place] [address] Dr. Lissa Sage RBC 4.46 106/ul Critically low 4.70-6.10 [facility] Comment on above: Performed By: #### L IPID, CMP, TSH #### [facility] [address] [place] [address] Dr. Lissa Sage WBC 14.0 103/ul Critically high 4.0-11.0 [facility] Comment on above: Performed By: #### L IPID, CMP, TSH #### [facility] [address] [address] [address] Lissa Sage POINT OF CARE GLUCOSEon 03-11 Glucose [Mass/Vol] 243 mg/dL Critically high 74-106 [facility] Comment on above: Performed By: #### L IPID, CMP, TSH #### [facility] [address] [address] [address] Lissa Sage Glucose [Mass/Vol] 132 mg/dL Critically high 74-106 [facility] Comment on above: Performed By: #### L IPID, CMP, TSH #### [facility] [address] [place] [address] Dr. Lissa Sage Glucose [Mass/Vol] 123 mg/dL Critically high -106 [facility] Comment on above: Performed By: #### L IPID, CMP, TSH #### [facility] [address] [address] [address] Lissa Sage PROF CHEM 8 (BAS METB)on Anion gap [Moles/Vol] 10.2 mmol/L Normal [facility] Comment on above: Performed By: #### L IPID, CMP, TSH #### [facility] [address] [place] [address] Dr. Lissa Sage Calcium [Mass/Vol] 7.9 mg/dL Critically low 8.5-10.1 [facility] Comment on above: Performed By: #### L IPID, CMP, TSH #### [facility] [address] [address] [address] Lissa Sage Chloride [Moles/Vol] 104 mmol/L Normal 98-107 [facility] Comment on above: Performed By: #### L IPID, CMP, TSH #### [facility] [address] [address] [address] Lissa Sage CO2 [Moles/Vol] 25.4 mmol/L Normal 21.0-32.0 [facility] Comment on above: Performed By: #### L IPID, CMP, TSH #### [facility] [address] [address] [address] Lissa Sage Creatinine [Mass/Vol] 1.44 mg/dL Critically high 0.70-1.30 [facility] Comment on above: Performed By: #### L IPID, CMP, TSH #### [facility] [address] [place] [address] Dr. Lissa Sage EGFR-AF OMANI >60 Normal >=60 [facility] Comment on above: Performed By: #### L IPID, CMP, TSH #### [facility] [address] [place] [address] Dr. Lissa Sage EGFR-NON AF OMANI 52 mL/min/1.73m2 Critically low >=60 [facility] Comment on above: Performed By: #### L IPID, CMP, TSH #### [facility] [address] [place] [address] Dr. Lissa Sage Glucose [Mass/Vol] 139 mg/dL Critically high 74-106 T [facility] Comment on above: Performed By: #### L IPID, CMP, TSH #### [facility] [address] [place] [address] Dr. Lissa Sage Potassium [Moles/Vol] 4.6 mmol/L Normal 3.5-5.1 [facility] Comment on above: Performed By: #### L IPID, CMP, TSH #### [facility] [address] [place] [address] Dr. Lissa Sage Sodium [Moles/Vol] 135 mmol/L Critically low 136-145 Th [facility] Comment on above: Performed By: #### L IPID, CMP, TSH #### [facility] [address] [place] [address] Dr. Lissa Sage Urea nitrogen [Mass/Vol] 19.0 mg/dL Critically high 7.0-18.0 [facility] Comment on above: Performed By: #### L IPID, CMP, TSH #### [facility] [address] [address] [address] Lissa Sage Urea nitrogen/Creatinine [Mass ratio] 13.2 mg/mg Normal [facility] Comment on above: Performed By: #### L IPID, PAM, TSH #### [facility] [address] [place] [address] Dr. Lissa Sage XR KUB 1 VIEWon 03-29-2022 XR KUB 1 VIEW EXAMINATION: XR KUB 1 VIEW HISTORY: Urolithiasis ; stent placement today COMPARISON: CT abdomen pelvis 03/28/2022 FINDINGS: KIDNEY/URETER - RIGHT: Right ureteral stent. 3 calcifications projecting over right kidney, largest is 30 mm. KIDNEY/URETER - LEFT: No visible renal or ureteral calcifications. PELVIS: No visible ureteral calcifications. Any visible calcifications favor phleboliths. BOWEL: No abnormal dilation or deviation. BONES: No acute abnormality. OTHER: Negative. No abnormal gaseous collections. IMPRESSION: 1. Right nephrolithiasis, not appreciably changed compared to recent CT study allowing for differences in technique. 2. Right ureteral stent placement appearing to be in good position. Electronically authenticated by: INÉS WARREN Date: 2022-03-29 15:22 Normal [facility] AMYLASEon 03-28-2022 Amylase [Catalytic activity/Vol] 21 U/L Critically low 25-115 [facility] Comment on above: Performed By: #### I NFLUAB #### [facility] [address] [place] [address] Dr. Lissa Sage CBC AUTO DIFFon 03-28-2022 BASO # 0.0 103/ul Normal 0.0-0.1 [facility] Comment on above: Performed By: #### L IPID, PAM, TSH #### [facility] [address] [address] [address] Lissa Sage Basophils/100 WBC (Bld) 0.2 % Normal 0.2-2.0 [facility] Comment on above: Performed By: #### L IPID, CMP, TSH #### [facility] [address] [address] [address] Lissa Sage EO # 0.1 103/ul Normal 0.0-0.7 [facility] Comment on above: Performed By: #### L IPID, CMP, TSH #### [facility] [address] [place] [address] Dr. Lissa Sage Eosinophils/100 WBC (Bld) 0.8 % Critically low 0.9-7.0 [facility] Comment on above: Performed By: #### L IPID, CMP, TSH #### [facility] [address] [place] [address] Dr. Lissa Sgae Erythrocyte distribution width (RBC) [Ratio] 14.2 % Normal 11.0-15.0 [facility] Comment on above: Performed By: #### L IPID, CMP, TSH #### [facility] [address] [place] [address] Dr. Lissa Sage Hematocrit (Bld) [Volume fraction] 46.8 % Normal 42.0-54.0 [facility] Comment on above: Performed By: #### L IPID, CMP, TSH #### [facility] [address] [place] [address] Dr. Lissa Sage Hemoglobin (Bld) [Mass/Vol] 14.6 g/dL Normal 14.0-18.0 [facility] Comment on above: Performed By: #### L IPID, CMP, TSH #### [facility] [address] [place] [address] Dr. Lissa Sage IG # 0.04 10e3/ul Critically high 0.00-0.03 [facility] Comment on above: Performed By: #### L IPID, CMP, TSH #### [facility] [address] [place] [address] Dr. Lissa Sage IG % 0.4 % Normal 0.0-0.5 [facility] Comment on above: Performed By: #### L IPID, CMP, TSH #### [facility] [address] [place] [address] Dr. Lissa Sage LYMPH # 1.6 103/ul Normal 1.2-3.8 [facility] Comment on above: Performed By: #### L IPID, CMP, TSH #### [facility] [address] [place] [address] Dr. Lissa Sage Lymphocytes/100 WBC (Bld) 17.6 % Critically low 20.5-60.0 [facility] Comment on above: Performed By: #### L IPID, CMP, TSH #### [facility] [address] [place] [address] Dr. Lissa Sage MANUAL DIFF REQ NO Normal [facility] Comment on above: Performed By: #### L IPID, CMP, TSH #### [facility] [address] [place] [address] Dr. Lissa Sage MCH (RBC) [Entitic mass] 28.0 pg Normal 25.9-34.0 [facility] Comment on above: Performed By: #### L IPID, CMP, TSH #### [facility] [address] [place] [address] Dr. Lissa Sage MCHC (RBC) [Mass/Vol] 31.2 g/dL Normal 29.9-35.2 [facility] Comment on above: Performed By: #### L IPID, CMP, TSH #### [facility] [address] [place] [address] Dr. Lissa Sage MCV (RBC) [Entitic vol] 89.7 fL Normal 80.0-94.0 [facility] Comment on above: Performed By: #### L IPID, CMP, TSH #### [facility] [address] [place] [address] Dr. Lissa Sage MONO # 0.3 103/ul Normal 0.3-0.8 [facility] Comment on above: Performed By: #### L IPID, CMP, TSH #### [facility] [address] [place] [address] Dr. Lissa Sage Monocytes/100 WBC (Bld) 3.1 % Normal 1.7-12.0 [facility] Comment on above: Performed By: #### L IPID, CMP, TSH #### [facility] [address] [place] [address] Dr. Lissa Sage NEUT # 7.2 103/ul Critically high 1.4-6.5 [facility] Comment on above: Performed By: #### L IPID, CMP, TSH #### [facility] [address] [address] [address] Lissa Sage Neutrophils/100 WBC (Bld) 77.9 % Critically high 43.0-75.0 [facility] Comment on above: Performed By: #### L IPID, CMP, TSH #### [facility] [address] [address] [address] Lissa Sage Platelet mean volume (Bld) [Entitic vol] 10.0 fL Normal 9.5-13.5 [facility] Comment on above: Performed By: #### L IPID, CMP, TSH #### [facility] [address] [address] [address] Lissa Sage PLT 248 103/ul Normal 150-450 [facility] Comment on above: Performed By: #### L IPID, CMP, TSH #### [facility] [address] [place] [address] Dr. Lissa Sage RBC 5.22 106/ul Normal 4.70-6.10 [facility] Comment on above: Performed By: #### L IPID, CMP, TSH #### [facility] [address] [place] [address] Dr. Lissa Sage WBC 9.3 103/ul Normal 4.0-11.0 [facility] Comment on above: Performed By: #### L IPID, CMP, TSH #### [facility] [address] [place] [address] ABD/PELVIS WO CONon 03-28 CT ABD/PELVIS WO CON EXAMINATION: CT ABD /PELVIS WO CON, 03/28/2022 4:44 AM EDT HISTORY: CALCULUS OF KIDNEY COMPARISON: None. TECHNIQUE: CT scan of the abdomen and pelvis was performed without IV contrast. Multiplanar reformats were generated. CT dose reduction technique was used, including Automated Exposure Control. FINDINGS: Lower thorax: Unremarkable. Liver: Unremarkable. Biliary: Low-density cholelithiasis. No evidence of acute cholecystitis. Spleen: Unremarkable. Pancreas: Unremarkable. Adrenals: Normal. Kidneys and bladder: No visible left renal/ureteral calculi or hydronephrosis. There is a 3.9 cm probable cyst of the anterior left kidney. A 16 x 27 mm calculus is present within the right ureteropelvic junction. There is mild/moderate hydronephrosis and perinephric stranding. Additional 4 mm calculus in the mid right kidney, and 9 mm calculus in a lower pole calyx. Small exophytic hyperdense right renal nodule, likely an hyperdense cyst which appears to have been present before and grossly stable. Bladder appears mostly decompressed. No indwelling catheter is seen but a small amount of gas in the bladder lumen may be from recent catheterization. GI Tract: No evidence of obstruction. What may be the appendix does not appear inflamed, and there is no right lower quadrant inflammatory process seen. Multiple surgical clips again seen at the stomach and GE junction from prior surgical procedure. Lymph Nodes: No lymphadenopathy. Mesentery/peritoneum: No free fluid or free air. Retroperitoneum: No mass or fluid collection. Vasculature: No visible abdominal aortic or iliac artery aneurysm. Mild aortic calcification. Pelvis: No mass visible. Unremarkable prostate. Bones/Soft Tissues: No acute osseous abnormality. Mild chronic degenerative changes. No significant soft tissue abnormality seen. Some portions are not visible due to patient body habitus and exclusion from the scan [id number]. IMPRESSION: A 16 x 27 mm calculus in the right ureteropelvic junction, associated with mild/moderate right-sided hydronephrosis and perinephric stranding. Additional 4 mm calculus in the mid right kidney, and 9 mm calculus in a lower pole calyx. Small bilateral renal lesions, most likely cysts. Bladder appears mostly decompressed. No indwelling catheter is seen but a small amount of gas in the bladder lumen may be from recent catheterization. If concern for infection, UA may be considered. Electronically authenticated by: CHAPO TAYLOR Date: 2022-03-28 05:50 Normal [facility]11 SARS-CoV-2 (COVID-19) RNA JOHN+probe Ql (Unsp spec) Not detected Normal NOT DETECTED [facility] Comment on above: Result Comment: When diagnostic testing is negative, the possibility of a false negative should be considered in the context of a patient's recent exposures and the presence of clinical signs and symptoms consistent with SARS-CoV-2. This test is not yet approved or cleared by the [place] FDA. When there are no FDA-approved or cleared tests available, and other criteria are met, FDA can make tests available under an emergency access mechanism called an Emergency Use Authorization (EUA). The EUA for this test is supported by the Quality Process Auditor of Health and Human Service's declaration that circumstances exist to justify the emergency use of in vitro diagnostics for the detection and/or diagnosis of the virus that causes COVID-19. This EUA will remain in effect for the duration of the COVID-19 declaration justifying emergency of IVDs, unless it is terminated or revoked by the FDA (after which the test may no longer be used). Performed By: #### L IPID, CMP, TSH #### [facility] [address] [place] [address] Dr. Lissa Sage ER URINE PROFILEon 2 Bilirubin Ql (U) Negative Normal NEGATIVE [facility] Comment on above: Performed By: #### L IPID, CMP, TSH #### [facility] [address] [place] [address] Dr. Lissa Sage Clarity (U) CLEAR Normal CLEAR [facility] Comment on above: Performed By: #### L IPID, CMP, TSH #### [facility] [address] [place] [address] Dr. Lissa Sage Color (U) YELLOW Normal YELLOW [facility] Comment on above: Performed By: #### L IPID, CMP, TSH #### [facility] [address] [place] [address] Dr. Lissa Sage ERUAHD A micrscopic examina tion will be performed if indicated. Normal [facility] Comment on above: Performed By: #### L IPID, CMP, TSH #### [facility] [address] [place] [address] Dr. Lissa Sage Glucose Ql (U) Negative Normal NEGATIVE [facility] Comment on above: Performed By: #### L IPID, CMP, TSH #### [facility] [address] [place] [address] Dr. Lissa Sage Hemoglobin Ql (U) SMALL Abnormal NEGATIVE [facility] Comment on above: Performed By: #### L IPID, CMP, TSH #### [facility] [address] [address] [address] Lissa Sage Ketones Ql (U) Negative Normal NEGATIVE [facility] Comment on above: Performed By: #### L IPID, CMP, TSH #### [facility] [address] [address] [address] Lissa Sage LEUKOCYTES SMALL Abnormal NEGATIVE [facility] Comment on above: Performed By: #### L IPID, CMP, TSH #### [facility] [address] [address] [address] Lissa Sage Nitrite Ql (U) Positive Abnormal NEGATIVE [facility] Comment on above: Performed By: #### L IPID, CMP, TSH #### [facility] [address] [place] [address] Dr. Lissa Sage pH (U) 6.0 [pH] Normal 5-9 [facility] Comment on above: Performed By: #### L IPID, CMP, TSH #### [facility] [address] [place] [address] Dr. Lissa Sage SPEC GRAVITY >=1.030 Abnormal 1.005-<=1. 025 [facility] Comment on above: Performed By: #### L IPID, CMP, TSH #### [facility] [address] [place] [address] Dr. Lissa Sage UA PROTEIN TRACE Normal NEGATIVE/ TRACE [facility] Comment on above: Performed By: #### L IPID, CMP, TSH #### [facility] [address] [place] [address] Dr. Lissa Sage UR MICRO IND INDICATED Normal [facility] Comment on above: Performed By: #### L IPID, CMP, TSH #### [facility] [address] [address] [address] Lissa Sage Urobilinogen Qn (U) 1.0 {Gurpreet'U}/dL Normal 0.2 - 1. 0 [facility] Comment on above: Performed By: #### L IPID, CMP, TSH #### [facility] [address] [place] [address] Dr. Lissa Sage LIPASEon 03-28-2022 Lipase [Catalytic activity/Vol] 64.0 U/L Critically low 73.0-393.0 [facility] Comment on above: Performed By: #### I NFLUAB #### [facility] [address] [place] [address] Dr. Lissa Sage POINT OF CARE GLUCOSEon 03-11 Glucose [Mass/Vol] 114 mg/dL Critically high -106 [facility] Comment on above: Performed By: #### P OCGLUC #### [facility] [address] [place] [address] Dr. Lissa Sage Glucose [Mass/Vol] 189 mg/dL Critically high -106 [facility] Comment on above: Performed By: #### L IPID, CMP, TSH #### [facility] [address] [place] [address] Dr. Lissa Sage PROF 14(COMP METB)on 022 Albumin [Mass/Vol] 3.2 g/dL Critically low 3.4-5.0 [facility] Comment on above: Performed By: #### I NFLUAB #### [facility] [address] [place] [address] Dr. Lissa Sage Albumin/Globulin [Mass ratio] 0.8 {ratio} Normal [facility] Comment on above: Performed By: #### I NFLUAB #### [facility] [address] [place] [address] Dr. Lissa Sage ALP [Catalytic activity/Vol] 87 U/L Normal 46-116 [facility] Comment on above: Performed By: #### I NFLUAB #### [facility] [address] [place] [address] Dr. Lissa Sage ALT [Catalytic activity/Vol] 21 U/L Normal 16-63 [facility] Comment on above: Performed By: #### I NFLUAB #### [facility] [address] [place] [address] Dr. Lissa Sage Anion gap [Moles/Vol] 13.7 mmol/L Normal [facility] Comment on above: Performed By: #### I NFLUAB #### [facility] [address] [place] [address] Dr. Lissa Sage AST [Catalytic activity/Vol] 14 U/L Critically low 15-37 [facility] Comment on above: Performed By: #### I NFLUAB #### [facility] [address] [place] [address] Dr. Lissa Sage Bilirubin [Mass/Vol] 1.0 mg/dL Normal 0.2-1.0 [facility] Comment on above: Performed By: #### I NFLUAB #### [facility] [address] [place] [address] Dr. Lissa Sage Calcium [Mass/Vol] 8.3 mg/dL Critically low 8.5-10.1 [facility] Comment on above: Performed By: #### I NFLUAB #### [facility] [address] [place] [address] Dr. Lissa Sage Chloride [Moles/Vol] 104 mmol/L Normal 98-107 [facility] Comment on above: Performed By: #### I NFLUAB #### [facility] [address] [place] [address] Dr. Lissa Sage CO2 [Moles/Vol] 22.7 mmol/L Normal 21.0-32.0 [facility] Comment on above: Performed By: #### I NFLUAB #### [facility] [address] [place] [address] Dr. Lissa Sage Creatinine [Mass/Vol] 1.10 mg/dL Normal 0.70-1.30 [facility] Comment on above: Performed By: #### I NFLUAB #### [facility] [address] [place] [address] Dr. Lissa Sage EGFR-AF OMANI >60 Normal >=60 [facility] Comment on above: Performed By: #### I NFLUAB #### [facility] [address] [place] [address] Dr. Lissa Sage EGFR-NON AF OMANI >60 Normal >=60 [facility] Comment on above: Performed By: #### I NFLUAB #### [facility] [address] [address] [address] Lissa Sage Globulin (S) [Mass/Vol] 4.2 g/dL Normal [facility] Comment on above: Performed By: #### I NFLUAB #### [facility] [address] [address] [address] Lissa Sage Glucose [Mass/Vol] 148 mg/dL Critically high 74-106 [facility] Comment on above: Performed By: #### I NFLUAB #### [facility] [address] [place] [address] Dr. Lissa Sage Potassium [Moles/Vol] 4.4 mmol/L Normal 3.5-5.1 [facility] Comment on above: Performed By: #### I NFLUAB #### [facility] [address] [place] [address] Dr. Lissa Sage Protein [Mass/Vol] 7.4 g/dL Normal 6.4-8.2 [facility] Comment on above: Performed By: #### I NFLUAB #### [facility] [address] [place] [address] Dr. Lissa Sage Sodium [Moles/Vol] 136 mmol/L Normal 136-145 [facility] Comment on above: Performed By: #### I NFLUAB #### [facility] [address] [place] [address] Dr. Lissa Sage Urea nitrogen [Mass/Vol] 17.0 mg/dL Normal 7.0-18.0 [facility] Comment on above: Performed By: #### I NFLUAB #### [facility] [address] [place] [address] Dr. Lissa Sage Urea nitrogen/Creatinine [Mass ratio] 15.5 mg/mg Normal [facility] Comment on above: Performed By: #### I NFLUAB #### [facility] [address] [place] [address] Dr. Lissa Sage URINE MICROSCOPIC ONLYon 10- 18-2022 BACTERIA SMALL Abnormal NONE SEEN [facility] Comment on above: Performed By: #### L IPID, CMP, TSH #### [facility] [address] [place] [address] Dr. Lissa Sage Bacteria identified Cx Nom (U) INDICATED Normal [facility] Comment on above: Performed By: #### L IPID, CMP, TSH #### [facility] [address] [place] [address] Dr. Lissa Sage CAST NONE SEEN Normal NONE SEEN [facility] Comment on above: Performed By: #### L IPID, CMP, TSH #### [facility] [address] [place] [address] Dr. Lissa Sage Crystals LM Nom (Urine sed) NONE SEEN Normal NONE SEEN [facility] Comment on above: Performed By: #### L IPID, CMP, TSH #### [facility] [address] [place] [address] Dr. Lissa Sage Epithelial cells LM Ql (Urine sed) FEW Abnormal NONE SEEN /RARE [facility] Comment on above: Performed By: #### L IPID, CMP, TSH #### [facility] [address] [place] [address] Dr. Lissa Sage MUCOUS NONE SEEN Normal NONE SEEN [facility] Comment on above: Performed By: #### L IPID, CMP, TSH #### [facility] [address] [place] [address] Dr. Lissa Sage RBC 5-10 Abnormal 0-2 [facility] Comment on above: Performed By: #### L IPID, CMP, TSH #### [facility] [address] [place] [address] Dr. Lissa Sage WBC 10-20 Abnormal NONE SEEN [facility] Comment on above: Performed By: #### L IPID, CMP, TSH #### [facility] [address] [place] [address] Dr. Lissa Sage CBC AUTO DIFFon 01-27-2022 BASO # 0.0 103/ul Normal 0.0-0.1 [facility] Comment on above: Performed By: #### L IPID, CMP, TSH #### [facility] [address] [place] [address] Dr. Lissa Sage Basophils/100 WBC (Bld) 0.3 % Normal 0.2-2.0 [facility] Comment on above: Performed By: #### L IPID, CMP, TSH #### [facility] [address] [place] [address] Dr. Lissa Sage EO # 0.1 103/ul Normal 0.0-0.7 [facility] Comment on above: Performed By: #### L IPID, CMP, TSH #### [facility] [address] [place] [address] Dr. Lissa Sage Eosinophils/100 WBC (Bld) 1.1 % Normal 0.9-7.0 [facility] Comment on above: Performed By: #### L IPID, CMP, TSH #### [facility] [address] [place] [address] Dr. Lissa Sage Erythrocyte distribution width (RBC) [Ratio] 13.4 % Normal 11.0-15.0 [facility] Comment on above: Performed By: #### L IPID, CMP, TSH #### [facility] [address] [place] [address] Dr. Lissa Sage Hematocrit (Bld) [Volume fraction] 44.9 % Normal 42.0-54.0 [facility] Comment on above: Performed By: #### L IPID, CMP, TSH #### [facility] [address] [place] [address] Dr. Lissa Sage Hemoglobin (Bld) [Mass/Vol] 14.2 g/dL Normal 14.0-18.0 [facility] Comment on above: Performed By: #### L IPID, CMP, TSH #### [facility] [address] [place] [address] Dr. Lissa Sage IG # 0.02 10e3/ul Normal 0.00-0.03 [facility] Comment on above: Performed By: #### L IPID, CMP, TSH #### [facility] [address] [place] [address] Dr. Lissa Sage IG % 0.3 % Normal 0.0-0.5 [facility] Comment on above: Performed By: #### L IPID, CMP, TSH #### [facility] [address] [place] [address] Dr. Lissa Sage LYMPH # 2.8 103/ul Normal 1.2-3.8 [facility] Comment on above: Performed By: #### L IPID, CMP, TSH #### [facility] [address] [place] [address] Dr. Lissa Sage Lymphocytes/100 WBC (Bld) 37.4 % Normal 20.5-60.0 [facility] Comment on above: Performed By: #### L IPID, CMP, TSH #### [facility] [address] [place] [address] Dr. Lissa Sage MANUAL DIFF REQ NO Normal [facility] Comment on above: Performed By: #### L IPID, CMP, TSH #### [facility] [address] [place] [address] Dr. Lissa Sage MCH (RBC) [Entitic mass] 27.8 pg Normal 25.9-34.0 [facility] Comment on above: Performed By: #### L IPID, CMP, TSH #### [facility] [address] [place] [address] Dr. iLssa Sage MCHC (RBC) [Mass/Vol] 31.6 g/dL Normal 29.9-35.2 [facility] Comment on above: Performed By: #### L IPID, CMP, TSH #### [facility] [address] [place] [address] Dr. Lissa Sage MCV (RBC) [Entitic vol] 87.9 fL Normal 80.0-94.0 [facility] Comment on above: Performed By: #### L IPID, CMP, TSH #### [facility] [address] [place] [address] Dr. Lissa Sage MONO # 0.5 103/ul Normal 0.3-0.8 [facility] Comment on above: Performed By: #### L IPID, CMP, TSH #### [facility] [address] [address] [address] Lissa Sage Monocytes/100 WBC (Bld) 6.6 % Normal 1.7-12.0 [facility] Comment on above: Performed By: #### L IPID, CMP, TSH #### [facility] [address] [address] [address] Lissa Sage NEUT # 4.1 103/ul Normal 1.4-6.5 [facility] Comment on above: Performed By: #### L IPID, CMP, TSH #### [facility] [address] [address] [address] Lissa Sage Neutrophils/100 WBC (Bld) 54.3 % Normal 43.0-75.0 [facility] Comment on above: Performed By: #### L IPID, CMP, TSH #### [facility] [address] [place] [address] Dr. Lissa Sage Platelet mean volume (Bld) [Entitic vol] 9.3 fL Critically low 9.5-13.5 [facility] Comment on above: Performed By: #### L IPID, CMP, TSH #### [facility] [address] [place] [address] Dr. Lissa Sage PLT 286 103/ul Normal 150-450 [facility] Comment on above: Performed By: #### L IPID, CMP, TSH #### [facility] [address] [place] [address] Dr. Lissa Sage RBC 5.11 106/ul Normal 4.70-6.10 [facility] Comment on above: Performed By: #### L IPID, CMP, TSH #### [facility] [address] [place] [address] Dr. Lissa Sage WBC 7.5 103/ul Normal 4.0-11.0 [facility] Comment on above: Performed By: #### L IPID, CMP, TSH #### [facility] [address] [place] [address] Dr. Lissa Sage GLYCOHEMOGLOBIN A1Con 2021 ADA RECOMMENDATION SEE BELOW Normal [facility] Comment on above: Result Comment: ADA RECOMMENDED LIMIT 4.0 - 6.0 ADA THERAPEUTIC TARGET < 7.0 ACTION SUGGESTED > 7.0 Performed By: #### A 1C #### [facility] [address] [place] [address] Dr. Lissa Sage Glucose [Mass/Vol] 128 mg/dL Normal [facility] Comment on above: Performed By: #### A 1C #### [facility] [address] [place] [address] Dr. Lissa Sage HbA1c (Bld) [Mass fraction] 6.1 % Normal 4.5-6.2 [facility] Comment on above: Performed By: #### A 1C #### [facility] [address] [place] [address] Dr. Lissa Sage LIPID PROFILEon 01-27-2022 CHOL-HDL RATIO NORM SEE BELOW Normal [facility] Comment on above: Result Comment: 3.3 - 4.4 LOW RISK 4.4 - 7.1 AVERAGE RISK 7.1 - 11.0 MODERATE RISK >11.0 HIGH RISK Performed By: #### L IPID, CMP, TSH #### [facility] [address] [place] [address] Dr. Lissa Sage Cholesterol [Mass/Vol] 137 mg/dL Normal <=200 [facility] Comment on above: Performed By: #### L IPID, CMP, TSH #### [facility] [address] [place] [address] Dr. Lissa Sage Cholesterol in HDL [Mass/Vol] 41 mg/dL Normal 40-60 [facility] Comment on above: Performed By: #### L IPID, CMP, TSH #### [facility] [address] [place] [address] Dr. Lissa Sage Cholesterol in LDL [Mass/Vol] 70.4 mg/dL Normal [facility] Comment on above: Performed By: #### L IPID, CMP, TSH #### [facility] [address] [place] [address] Dr. Lissa Sage Cholesterol.total/Chol esterol in HDL [Mass ratio] 3.3 {ratio} Normal [facility] Comment on above: Performed By: #### L IPID, CMP, TSH #### [facility] [address] [address] [address] Lissa Sage HDL NORMAL > or = 60 mg/dl - LO W CARDIOVASCULAR RISK <40 mg/dl - HIGH CARDIOVASCULAR RISK Normal [facility] Comment on above: Performed By: #### L IPID, CMP, TSH #### [facility] [address] [address] [address] Lissa Sage LDL CALC NORMAL SEE BELOW Normal [facility] Comment on above: Result Comment: <100 mg/dl OPTIMAL 100 - 129 mg/dl NEAR OR ABOVE OPTIMAL 130 - 159 mg/dl BORDERLINE HIGH 160 - 189 mg/dl HIGH >190 mg/dl VERY HIGH Performed By: #### L IPID, CMP, TSH #### [facility] [address] [address] [address] Lissa Sage Triglyceride [Mass/Vol] 128 mg/dL Normal <=150 [facility] Comment on above: Performed By: #### L IPID, CMP, TSH #### [facility] [address] [address] [address] Lissa Sage VLDL CALC 25.6 mg/dL Normal [facility] Comment on above: Performed By: #### L IPID, CMP, TSH #### [facility] [address] [address] [address] Lissa Sage PROF 14(COMP METB)on 022 Albumin [Mass/Vol] 3.5 g/dL Normal 3.4-5.0 [facility] Comment on above: Performed By: #### L IPID, CMP, TSH #### [facility] [address] [address] [address] Lissa Sage Albumin/Globulin [Mass ratio] 0.9 {ratio} Normal [facility] Comment on above: Performed By: #### L IPID, CMP, TSH #### [facility] [address] [address] [address] Lissa Sage ALP [Catalytic activity/Vol] 79 U/L Normal 46-116 [facility] Comment on above: Performed By: #### L IPID, CMP, TSH #### [facility] [address] [address] [address] Lissa Sage ALT [Catalytic activity/Vol] 28 U/L Normal 16-63 [facility] Comment on above: Performed By: #### L IPID, CMP, TSH #### [facility] [address] [address] [address] Lissa Sage Anion gap [Moles/Vol] 10.5 mmol/L Normal Th [facility] Comment on above: Performed By: #### L IPID, CMP, TSH #### [facility] [address] [address] [address] Lissa Sage AST [Catalytic activity/Vol] 20 U/L Normal 15-37 [facility] Comment on above: Performed By: #### L IPID, CMP, TSH #### [facility] [address] [address] [address] Lissa Sage Bilirubin [Mass/Vol] 0.7 mg/dL Normal 0.2-1.0 [facility] Comment on above: Performed By: #### L IPID, CMP, TSH #### [facility] [address] [address] [address] Lissa Sage Calcium [Mass/Vol] 8.6 mg/dL Normal 8.5-10.1 [facility] Comment on above: Performed By: #### L IPID, CMP, TSH #### [facility] [address] [address] [address] Lissa Sage Chloride [Moles/Vol] 101 mmol/L Normal 98-107 [facility] Comment on above: Performed By: #### L IPID, CMP, TSH #### [facility] [address] [address] [address] Lissa Sage CO2 [Moles/Vol] 28.6 mmol/L Normal 21.0-32.0 [facility] Comment on above: Performed By: #### L IPID, CMP, TSH #### [facility] [address] [address] [address] Lissa Sage Creatinine [Mass/Vol] 0.87 mg/dL Normal 0.70-1.30 [facility] Comment on above: Performed By: #### L IPID, CMP, TSH #### [facility] [address] [place] [address] Dr. Lissa Sage EGFR-AF OMANI >60 Normal >=60 [facility] Comment on above: Performed By: #### L IPID, CMP, TSH #### [facility] [address] [place] [address] Dr. Lissa Sage EGFR-NON AF OMANI >60 Normal >=60 [facility] Comment on above: Performed By: #### L IPID, CMP, TSH #### [facility] [address] [place] [address] Dr. Lissa Sage Globulin (S) [Mass/Vol] 3.9 g/dL Normal [facility] Comment on above: Performed By: #### L IPID, CMP, TSH #### [facility] [address] [place] [address] Dr. Lissa Sage Glucose [Mass/Vol] 115 mg/dL Critically high 74-106 T [facility] Comment on above: Performed By: #### L IPID, CMP, TSH #### [facility] [address] [place] [address] Dr. Lissa Sage Potassium [Moles/Vol] 4.1 mmol/L Normal 3.5-5.1 [facility] Comment on above: Performed By: #### L IPID, CMP, TSH #### [facility] [address] [place] [address] Dr. Lissa Sage Protein [Mass/Vol] 7.4 g/dL Normal 6.4-8.2 [facility] Comment on above: Performed By: #### L IPID, CMP, TSH #### [facility] [address] [place] [address] Dr. Lissa Sage Sodium [Moles/Vol] 136 mmol/L Normal 136-145 [facility] Comment on above: Performed By: #### L IPID, CMP, TSH #### [facility] [address] [place] [address] Dr. Lissa Sage Urea nitrogen [Mass/Vol] 19.0 mg/dL Critically high 7.0-18.0 [facility] Comment on above: Performed By: #### L IPID, CMP, TSH #### [facility] [address] [place], [place] [address] Dr. Lissa Sage Urea nitrogen/Creatinine [Mass ratio] 21.8 mg/mg Normal [facility] Comment on above: Performed By: #### L IPID, CMP, TSH #### [facility] [address] [place], [place] [address] Dr. Lissa Sage TSHon 01-27-2022 TSH 1.650 uIU/mL Normal 0.358-3.74 0 [facility] Comment on above: Performed By: #### L IPID, CMP, TSH #### [facility] [address] [place], [place] [address] Dr. Lissa Sage Vital Signs Date Time Vital Sign Value Performing Clinician Facility 02-20-2023 10:07-0400 Blood Pressure Location DONNA MARQUISE [facility] 02-20-2023 10:07-0400 Diastolic blood pressure 78 mm[Hg] DONNA MARQUISE [facility] 02-20-2023 10:07-0400 Heart rate 88 /min DONNA MARQUISE [facility] 02-20-2023 10:07-0400 Systolic blood pressure 124 mm[Hg] DONNA MARQUISE [facility] 02-07-2023 13:45-0400 Body height 185.42 cm Awais Garcia Other [facility] Other 02-07-2023 13:45-0400 Body mass index (BMI) [Ratio] 37.81 kg/m2 Awais Garcia Other [facility] Other 02-07-2023 13:45-0400 Body weight 130 kg Awais Ball Other [facility] Other 02-07-2023 13:45-0400 Diastolic blood pressure 88 mm[Hg] Awais Ball Other [facility] Other 02-07-2023 13:45-0400 Respiratory rate 12 /min Awais Ball Other [facility] Other 02-07-2023 13:45-0400 Systolic blood pressure 131 mm[Hg] Awais Ball Other [facility] Other 01-24-2023 18:56-0400 Body temperature 97.8 [degF] PHYSICIAN NO [facility] 01-24-2023 18:56-0400 Diastolic blood pressure 82 mm[Hg] PHYSICIAN NO [facility] 01-24-2023 18:56-0400 Heart rate 91 /min PHYSICIAN NO [facility] 01-24-2023 18:56-0400 Respiratory rate 18 /min PHYSICIAN NO [facility] 01-24-2023 18:56-0400 SaO2% (BldA) [Mass fraction] 96 % PHYSICIAN NO [facility] 01-24-2023 18:56-0400 Systolic blood pressure 121 mm[Hg] PHYSICIAN NO [facility] 01-23-2023 11:42-0400 Body height 190.5 cm PHYSICIAN NO [facility] 01-21-2023 05:16-0400 Body weight 147.2 kg PHYSICIAN NO [facility] 01-09-2023 15:15-0400 Body temperature 98.3 [degF] PHYSICIAN NO [facility] 01-09-2023 15:15-0400 Diastolic blood pressure 86 mm[Hg] PHYSICIAN NO [facility] 01-09-2023 15:15-0400 Heart rate 82 /min PHYSICIAN NO [facility] 01-09-2023 15:15-0400 Respiratory rate 16 /min PHYSICIAN NO [facility] 01-09-2023 15:15-0400 SaO2% (BldA) [Mass fraction] 96 % PHYSICIAN NO [facility] 01-09-2023 15:15-0400 Systolic blood pressure 127 mm[Hg] PHYSICIAN NO [facility] 01-09-2023 12:06-0400 Body height 190.5 cm PHYSICIAN NO [facility] 01-09-2023 09:32-0400 Body height 190.5 cm PHYSICIAN NO [facility] 01-09-2023 09:32-0400 Body temperature 97.9 [degF] PHYSICIAN NO [facility] 01-09-2023 09:32-0400 Body weight 151.95 kg PHYSICIAN NO [facility] 01-09-2023 09:32-0400 Diastolic blood pressure 82 mm[Hg] PHYSICIAN NO [facility] 01-09-2023 09:32-0400 Heart rate 90 /min PHYSICIAN NO [facility] 01-09-2023 09:32-0400 Respiratory rate 22 /min PHYSICIAN NO [facility] 01-09-2023 09:32-0400 SaO2% (BldA) [Mass fraction] 97 % PHYSICIAN NO [facility] 01-09-2023 09:32-0400 Systolic blood pressure 132 mm[Hg] PHYSICIAN NO [facility] 01-07-2023 05:10-0400 Body weight 152.4 kg PHYSICIAN NO [facility] 08-31-2022 09:30-0400 Body height 185.42 cm Awais Ball Other [employer] Other 08-31-2022 09:30-0400 Body mass index (BMI) [Ratio] 46.2 kg/m2 Awais Ball Other [employer] Other 08-31-2022 09:30-0400 Body weight 158.85 kg Awais Ball Other [employer] Other 08-31-2022 09:30-0400 Diastolic blood pressure 86 mm[Hg] Awais Ball Other [facility] Other 08-31-2022 09:30-0400 Respiratory rate 12 /min Awais Ball Other [facility] Other 08-31-2022 09:30-0400 Systolic blood pressure 132 mm[Hg] Awais Ball Other [facility] Other 05-18-2022 13:44-0500 Body height 190.5 cm Pacc 2 Work Phone: [facility] 05-18-2022 13:44-0500 Body temperature 97.5 [degF] Pacc 2 Work Phone: [facility] 05-18-2022 13:44-0500 Body weight 160.39 kg Pacc 2 Work Phone: [facility] 05-18-2022 13:44-0500 Diastolic blood pressure 92 mm[Hg] Pacc 2 Work Phone: [facility] 05-18-2022 13:44-0500 Heart rate 109 /min Pacc 2 Work Phone: [facility] 05-18-2022 13:44-0500 SaO2% (BldA) [Mass fraction] 96 % Pacc 2 Work Phone: [facility] 05-18-2022 13:44-0500 Systolic blood pressure 148 mm[Hg] Pacc 2 Work Phone: [facility] 05-09-2022 13:06-0500 Body height 190.5 cm Harsh Coffey MD Work Phone: [facility] 05-09-2022 13:06-0500 Body weight 161.03 kg Harsh Coffey MD Work Phone: [facility] 05-09-2022 13:06-0500 Diastolic blood pressure 88 mm[Hg] Harsh Coffey MD Work Phone: [facility] 05-09-2022 13:06-0500 Heart rate 108 /min Harsh Coffey MD Work Phone: [facility] 05-09-2022 13:06-0500 Systolic blood pressure 130 mm[Hg] Harsh Coffey MD Work Phone: [facility] 04-12-2022 13:14-0400 Blood Pressure Location Konrad LILLY [facility] 04-12-2022 13:14-0400 Diastolic blood pressure 83 mm[Hg] Konrad LILLY [facility] 04-12-2022 13:14-0400 Heart rate 81 /min Konrad LILLY [facility] 04-12-2022 13:14-0400 Respiratory rate 16 /min Konrad LILLY [facility] 04-12-2022 13:14-0400 Systolic blood pressure 134 mm[Hg] Konrad LILLY [facility] Encounters Encounter Date Encounter Type Care Provider Facility Start: 06-05-2023 End: 06-05-2023 ambulatory Awais Garcia Other [employer] Other Start: 06-05-2023 Encounter by computer link Awais Jose [facility] Start: 05-21-2023 End: 05-21-2023 ambulatory Awais Garcia Other [employer] Other Start: 05-21-2023 Encounter by computer link Awais Jose [facility] Start: 05-16-2023 ambulatory Konrad LILLY Facility :[facility] Start: 05-15-2023 End: 05-15-2023 ambulatory Awais Garcia Other [facility] Other Start: 05-15-2023 Encounter by computer link Awais Garcia [facility] Start: 05-14-2023 End: 05-14-2023 ambulatory Awais Garcia Other [employer] Other Start: 05-14-2023 Encounter by computer link Awais Garcia [facility] Start: 05-07-2023 End: 05-07-2023 ambulatory Awais Garcia Other [employer] Other Start: 05-07-2023 Encounter by computer link Awais Garcia [facility] Start: 04-09-2023 End: 04-09-2023 ambulatory Awais Garcia Other [employer] Other Start: 04-09-2023 Encounter by computer link Awais Garcia [facility] Start: 04-03-2023 End: 04-03-2023 ambulatory Awais Garcia Other [employer] Other Start: 04-03-2023 Encounter by computer link Awais Garcia [facility] Start: 03-29-2023 End: 03-29-2023 ambulatory Awais Garcia Other [facility] Other Start: 03-29-2023 Encounter by computer link Awais Garcia [facility] Start: 03-28-2023 End: 03-28-2023 ambulatory Awais Garcia Other [facility] Other Start: 03-28-2023 Encounter by computer link Awias Garcia [facility] Start: 03-26-2023 End: 03-26-2023 ambulatory Awais Garcia Other [facility] Other Start: 03-26-2023 Encounter by computer link Awais Garcia [facility] Start: 03-20-2023 End: 03-20-2023 ambulatory Awais Garcia Other [facility] Other Start: 03-20-2023 Encounter by computer link Awais Garcia [facility] Start: 03-02-2023 End: 03-02-2023 ambulatory Awais Garcia Other [employer] Other Start: 03-02-2023 Encounter by computer link Awais Garcia [facility] Start: 02-28-2023 End: 02-28-2023 ambulatory Awais Garcia Other [facility] Other Start: 02-28-2023 Encounter by computer link Awais Garcia [facility] Start: 02-23-2023 End: 02-23-2023 ambulatory Awais Garcia Other [facility] Other Start: 02-23-2023 Telephone encounter Awais HAMMOND G [facility] Start: 02-21-2023 End: 02-21-2023 ambulatory Awais Garcia Other [facility] Other Start: 02-21-2023 Encounter by computer link Awais Garcia [facility] Start: 02-20-2023 End: 02-20-2023 Lab Drop off DONNA RIVERA [facility] Start: 02-20-2023 End: 02-21-2023 ambulatory DONNA RIVERA Facility:[facility] Start: 02-20-2023 End: 02-20-2023 Patient encounter procedure DONNA RIVERA [facility] Start: 02-16-2023 End: 02-16-2023 ambulatory Awais Garcia Other [facility] Other Start: 02-16-2023 Telephone encounter Awais HAMMOND G [facility] Start: 02-15-2023 End: 02-15-2023 ambulatory Awais Garcia Other [facility] Other Start: 02-15-2023 Encounter by computer link Awais Garcia [facility] Start: 02-07-2023 End: 02-07-2023 ambulatory Awais Garcia Other [employer] Other Start: 02-07-2023 Office outpatient vi sit 25 minutes Awais Garcia [facility] Start: 01-09-2023 End: 01-09-2023 Emergency department patient visit Awais Garcia Facility:[facility] Start: 01-09-2023 End: 01-09-2023 Emergency department patient visit PHYSICIAN NO [facility] Work Phone: Start: 01-03-2023 End: 01-24-2023 Evaluation and management of inpatient Srinivas Jaquezey Facility:[facility] Start: 01-03-2023 End: 01-24-2023 Evaluation and management of inpatient PHYSICIAN NO [facility] Work Phone: Start: 12-14-2022 End: 12-14-2022 ambulatory Awais Garcia Other [facility] Other Start: 12-14-2022 Telephone encounter Awais Garcia [facility] Start: 12-13-2022 End: 12-13-2022 ambulatory Awais Garcia Other [facility] Other Start: 12-13-2022 Telephone encounter Awais Garcia [facility] Start: 12-05-2022 End: 12-05-2022 ambulatory Awais Garcia Other [facility] Other Start: 12-05-2022 Telephone encounter Awais Garcia [facility] Start: 12-01-2022 End: 12-01-2022 ambulatory Awais Garcia Other [facility] Other Start: 12-01-2022 Telephone encounter Awais Garcia [facility] Start: 11-28-2022 End: 11-29-2022 ambulatory Konrad LILLY Facility:[facility] Start: 11-28-2022 End: 11-28-2022 Patient encounter procedure Konrad LILLY [facility] Start: 09-18-2022 End: 09-18-2022 ambulatory Awais Garcia Other [facility] Other Start: 09-18-2022 Telephone encounter Awais HAMMOND [facility] Start: 08-31-2022 End: 08-31-2022 ambulatory Awais Garcia Other [employer] Other Start: 08-31-2022 Office outpatient vi sit 15 minutes Awais Garcia [facility] Start: 08-07-2022 Telephone encounter Awais HAMMOND [facility] Start: 08-07-2022 End: 08-08-[address] AWAIS GARCIA Facility:[facility] Start: 07-21-2022 End: 07-21-2022 ambulatory GLEN KNIGHT Facility: Start: 07-19-2022 End: 07-20-2022 ambulatory Konrad LILLY Facility:[facility] Start: 07-19-2022 End: 07-19-2022 Lab Drop off Konrad LILLY [facility] Start: 07-19-2022 End: 07-19-2022 Patient encounter procedure Konrad LILLY [facility] Start: 05-31-2022 End: 06-01-2022 ambulatory Konrad LILLY Facility:[facility] Start: 05-31-2022 End: 05-31-2022 Patient encounter procedure Konrad LILLY [facility] Start: 05-25-2022 End: 05-26-2022 ambulatory Konrad LILLY Facility: [facility] Start: 05-25-2022 End: 05-25-2022 Patient encounter procedure Konrad LILLY [facility] Start: 05-24-2022 End: 05-24-[address] WALT SILVA . Facility: Start: 05-22-2022 End: 05-24-2022 ambulatory HARSH COFFEY Facility:[facility] Start: 05-18-2022 Encounter for other preprocedural examination AWAIS GARCIA [facility] Start: 05-18-2022 End: 05-19-2022 ambulatory AWAIS GARCIA Facility:[facility] Start: 05-18-2022 End: 05-19-2022 ambulatory AWAIS GARCIA Facility:[facility] Start: 05-18-2022 End: 05-18-2022 Admission to establishment [facility]acc Main 2 [facility] Start: 05-18-2022 End: 05-18-2022 ambulatory Pacc Main 2 Work Phone: Pre Anesthesia Comment on above: Pre-op evaluation (P rimary Dx); Essential hypertension; BMI 40.0-44.9, adult (HCC); Prediabetes; Ureteral stent present Start: 05-18-2022 End: 05-18-2022 Preprocedural examination done Pacc Main 2 Work Phone: Pre Anesthesia Start: 05-12-2022 Orders Only Harsh Coffey MD Work Phone: Urology Start: 05-10-2022 Telephone encounter Della schultz Comment on above: Appointment Start: 05-09-2022 End: 05-10-2022 ambulatory HARSH COFFEY Facility:[facility] Start: 05-09-2022 End: 05-10-2022 ambulatory KONRAD LILLY Facility:[facility] Start: 05-09-2022 End: 05-09-2022 Patient encounter procedure Harsh Coffey MD Work Phone: Urology Comment on above: Nephrolithiasis (Myrtle thien Dx); Family history of nephrolithiasis; BMI 40.0-44.9, adult (HCC); History of gastric bypass; Essential hypertension; Prediabetes; Bladder spasms; Ureteral stent present; Abnormal urinalysis Start: 04-12-2022 End: 04-12-2022 Patient encounter procedure Konrad P SLADE [facility] Start: 04-11-2022 End: 04-12-2022 ambulatory KONRAD LILLY Facility:[facility] Start: 04-06-2022 End: 04-07-[address] KULDIP FLOOD . Facility:[facility] Start: 03-29-2022 End: 03-30-2022 Evaluation and management of inpatient KONRAD LILLY Facility:[facility] Start: 01-31-2022 Encounter for genera l adult medical examination without abnormal findings DR AWAIS GARCIA [facility] Start: 01-27-2022 End: 01-28-[address] AWAIS GARCIA Facility:[facility] Start: 01-27-2022 End: 01-28-2022 Encounter for general adult medical examination without abnormal findings DR AWAIS GARCIA Facility:[facility] Start: 01-25-2022 End: 02-23-[address] AWAIS GARCIA Facility:[facility] Procedures Date Procedure Procedure Detail Performing Clinician Start: 01-22-2023 Duplex scan of lower limb veins PHYSICIAN NO FAMILY Start: 01-22-2023 Urine culture PHYSICIAN NO FAMILY Start: 01-18-2023 MRI of head PHYSICIAN NO FAMILY Start: 01-18-2023 XR pre/post mri xray PH YSICIAN NO FAMILY Start: 01-12-2023 CT of head without contrast PHYSICIAN NO FAMILY Start: 01-11-2023 Duplex scan of lower limb veins PHYSICIAN NO FAMILY Start: 01-09-2023 CT of head without contrast PHYSICIAN NO FAMILY Start: 01-08-2023 CT of head without contrast PHYSICIAN NO FAMILY Start: 05-09-2022 Antibody screen Harsh huynh MD Work Phone: Start: 05-09-2022 Antibody screen ZEYAD GARCIA Comment on above: Order Comment: Speci men Type: BLOOD SPECIMENOrdering Facility: [facility] Address: [address] [place] [id number] Performed By: #### T [id number] ####CC MAIN BLOOD BANKCLIA [id number] [facility] [id number] [address] [place] Start: 03-29-2022 Insertion of Other D evice into Genitourinary Tract, Via Natural or Artificial Opening Endoscopic GLEN KNIGHT Start: 01-27-2022 PSA screening GLEN KNIGHT Comment on above: Performed By: #### I NFLUAB #### [facility] [address] [address] [address] Lissa Sage Start: 08-26-2019 Cystoscopic removal of ureteric stent Konrad LILLY Start: 08-20-2019 Cystoscope, device ( physical object) Konrad LILLY Esophagogastrostomy, antesternal or antethoracic Konrad LILLY Gastric rstcv w/byp w/sm int rcnstj limit absrpj Konrad LILLY Hernia repair Konrad LILLY Turbinectomy Konrad LILLY Plan of Treatment Date Care Activity Detail Author Start: 05-09-2025 DIABETES SCREEN DIABETES SCREEN [facility] Start: 01-24-2023 [facility] Start: 01-17-2023 Consultation [facility] Start: 01-14-2023 Referral to neurologist [facility] Start: 01-11-2023 Referral to vascular surgeon [facility] Start: 01-03-2023 [facility] Start: 01-03-2023 Hospital admission [facility] Start: 01-03-2023 [facility] Start: 06-06-2022 COVID-19 VACCINE (5 - Booster for Moderna series) COVID-19 VACCINE (5 - Booster for Moderna series) [facility] Start: 05-18-2022 End: 07-18-2022 Hemoglobin A1c in Blood [facility] Work Phone: Comment on above: Expected: 05/18/2022 , Expires: 07/18/2022 Start: 06-11-2021 DEPRESSION ASSESSMENT DEPRESSION ASS ESSMENT [facility] Start: 2017 COLOGUARD (FIT-DNA) COLOGUARD (FIT-D NA) [facility] Start: [address] [facility] Start: 2017 COLORECTAL CANCER SCREENING COLORECTAL CANCER SCREENING [facility] Start: [address] COLONOGRAPHY [facility] Start: 2017 FECAL OCCULT BLOOD FECAL OCCULT BLOO D [facility] Start: 2017 SIGMOIDOSCOPY SIGMOIDOSCOPY [facility] Start: 08-29-2007 L[address] S[address]EN LIPID SCREEN [facility] Start: 08-29-1991 Urine microalbumin profile DTAP,TDAP,TD (1 - Tdap) 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 Start: 1990 BP CONTROLLED (<130/80) BP CONTROLLE D (<130/80) [facility] Start: 1990 HEPATITIS C SCREENING HEPATITIS C SC REENING [facility] Start: 1990 HIV SCREENING HIV SCREENING [facility] Start: 1972 HEPATITIS B (1 of 3 - 3-dose series) HEPATITIS B (1 of 3 - 3-dose series) [facility] Bacteria identified in Urine by Culture URINE CULTURE Microbiology Routine Abnormal urinalysis 05/09/2022 2:50 PM EST [facility] Work Phone: ECG COMPLETE ECG COMPLETE ECG Routine Pre-op evaluation 05/18/2022 2:39 PM EST [facility] Work Phone: IR NEPHROSTOMY TUBE PLACE IR NEPHROSTOMY TUBE PLACE Radiology Routine Nephrolithiasis Family history of nephrolithiasis BMI 40.0-44.9, adult (HCC) History of gastric bypass Essential hypertension Prediabetes Bladder spasms Ureteral stent present Ordered: 05/09/2022 [facility] Work Phone: Comment on above: Ordered: 05/09/2022 Patient Education [facility] Work Phone: Patient referral [facility] Work Phone: Vest Clini c Vest Clini [facility] Immunizations Immunization Date Immunization Notes Care Provider Fa nela 04-11-2022 SARS-CoV-2 (COVID-19 ) mRNA-1273 vaccine [employer]Tree [facility] 04-05-2022 influenza virus vaccine, unspecified formulation Konrad [employer] [facility] 04-06-2021 SARS-CoV-2 (COVID-19 ) mRNA-1273 vaccine Konrad [employer] [facility] 07-07-2020 SARS-CoV-2 (COVID-19 ) mRNA-1273 vaccine Konrad [employer] [facility] 06-09-2020 SARS-CoV-2 (COVID-19 ) mRNA-1273 vaccine [employer]rad[employer] [facility] 03-11-2020 tetanus and diphther ia toxoids, adsorbed, preservative free, for adult use (5 Lf of tetanus toxoid and 2 Lf of diphtheria toxoid) Awais Garcia Other [employer] Other 03-11-2019 influenza virus vaccine, live, attenuated, for intranasal use Konrad [employer] [facility] Payers Date Payer Category Payer Unknown [id number] 2021 Unknown MMO MMO [employer] [id number] 2021-Present [phone] [address] [place] [address] PPO [id number] 2019 Unknown [id number] 1972 Unknown [id number] 1972 Unknown [id number] [id number] 1972 Unknown [id number] [id number] 1972 Unknown [id number] [id number]3 1972 Unknown [id number] .[id number] 1972 Unknown [id number] [id number] 1972 Unknown [id number] ..[id number] 1972 Unknown [id number] .[id number] 1972 Unknown [id number] .[id number] 1972 Unknown [id number] .[id number]7 1972 Unknown [id number] .[id number] 1972 Unknown [id number] [id number] 1972 Unknown [id number] .840.1.060734.3.579.2.727 1972 Unknown [id number] .[id number] 1972 Unknown [id number] .[id number] 1959 Self-pay Unknown [id number] [id number] Unknown [id number] [id number] Unknown [id number] Social History Date Type Detail Facility Start: 08-26-2019 End: 02-20-2023 Tobacco smoking status Never smoked tobacco (finding) [facility] Sex Assigned At Male [facility] Start: 05-09-2022 Tobacco use and exposure Smokeless tobacco non-user [facility] Start: 05-09-2022 End: 05-18-2022 Alcohol intake Current drinker of alcohol (finding) [facility] Start: 05-09-2022 End: 05-18-[address] [facility] Start: 05-09-2022 [facility] Start: 1970 Sex Assigned At Not on file [facility] Start: 04-29-2022 End: 05-12-2022 Exposure to SARS-CoV-2 (event) Not sure [facility] Work Phone: Start: 05-18-2022 Alcohol Comment may have a dri nk every [address] [facility] Tobacco smoking status Never 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- [employer] Start: 12-30-2022 Goals Date Patient Goal Desired Activity /State Functional Status Date Assessment Result Facility 02-20-2023 Functional Status N/A [facility] 01-24-2023 Functional status Patient is Pro gressing Toward [facility] Work Phone: 01-03-2023 Functional status Patient is Pro gressing Toward [facility] Work Phone: 07-19-2022 Functional Status N/A [facility] 05-25-2022 Functional Status N/A [facility] 04-12-2022 Functional Status N/A [facility] Mental Status Date Assessment Result Facility 01-24-2023 Cognitive function Cognitive Sta tus Patient is Progressing Toward Baseline [facility] Work Phone: 01-03-2023 Cognitive function Cognitive Sta [facility] Patient at Baseline [facility] Work Phone: Clinical Notes 03-29-2022 to 06-05-2023 Note Date & Type Note Facility 06-05-2023 Evaluation note Encounter Date Diagnosis Assessment Notes May, IFG (impaired fasting glucose) (ICD-10 - R73.01) [facility] Other 12-11-2023 Evaluation note* Encounter Date Diagnosis Assessment Notes Treatment Notes Treatment Clinical Notes May, Nausea (ICD-10 - R11.0) [facility] Other 09-13-2023 Note [id number] 02-20-2023 Hospital Discharge instructions Patient Education 02/20/2023 11:06:38 Dietary Guidelines to Help Prevent Kidney Stones Dietary Guidelines to Help Prevent Kidney Stones Kidney stones are deposits of minerals and salts that form inside your kidneys. Your risk of developing kidney stones may be greater depending on your diet, your lifestyle, the medicines you take, and whether you have certain medical conditions. Most people can lower their chances of developing kidney stones by following the instructions below. Your dietitian may give you more specific instructions depending on your overall health and the type of kidney stones you tend to develop. What are tips for following this plan? Reading food labels Choose foods with no salt added or low-salt labels. Limit your salt (sodium) intake to less than 1,500 mg a day. Choose foods with calcium for each meal and snack. Try to eat about 300 mg of calcium at each meal.Foods that contain 200 500 mg of calcium a serving include: ?8 oz (237 mL) of milk, ylhtrmu-khkedbanhtec-bhfte milk, and calcium- fortifiedfruit juice. Calcium-fortified means that calcium has been added to these drinks. ?8 oz (237 mL) of kefir, yogurt, and soy yogurt. ?4 oz (114 g) of tofu. ?1 oz (28 g) of cheese. ?1 cup (150 g) of dried figs. ?1 cup (91 g) of cooked broccoli. ?One 3 oz (85 g) can of sardines or mackerel. Most people need 1,000 1,500 mg of calcium a day. Talk to your dietitian about how much calcium is recommended for you. Shopping Buy plenty of fresh fruits and vegetables. Most people do not need to avoid fruits and vegetables, even if these foods contain nutrients that may contribute to kidney stones. When shopping for convenience foods, choose: ?Whole pieces of fruit. ?Pre-made salads with dressing on the side. ?Low-fat fruit and yogurt smoothies. Avoid buying frozen meals or prepared deli foods. These can be high in sodium. Look for foods with live cultures, such as yogurt and kefir. Choose high-fiber grains, such as whole-wheat breads, oat bran, and wheat cereals. Cooking Do not add salt to food when cooking. Place a salt shaker on the table and allow each person to addhis or her own salt to taste. Use vegetable protein, such as beans, textured vegetable protein (TVP), or tofu, instead of meat inpasta, casseroles, and soups. Meal planning Eat less salt, if told by your dietitian. To do this: ?Avoid eating processed or pre-made food. ?Avoid eating fast food. Eat less animal protein, including cheese, meat, poultry, or fish, if told by your dietitian. To dothis: ?Limit the number of times you have meat, poultry, fish, or cheese each week. Eat a diet free of meat at least 2 days a week. ?Eat only one serving each day of meat, poultry, fish, or seafood. ?When you prepare animal protein, cut pieces into small portion sizes. For most meat and fish, one serving is about the size of the palm of your hand. Eat at least five servings of fresh fruits and vegetables each day. To do this: ?Keep fruits and vegetables on hand for snacks. ?Eat one piece of fruit or a handful of berries with breakfast. ?Have a salad and fruit at lunch. ?Have two kinds of vegetables at dinner. Limit foods that are high in a substance called oxalate. These include: ?Spinach (cooked), rhubarb, beets, sweet potatoes, and Turkmen chard. ?Peanuts. ?Potato chips, italian fries, and baked potatoes with skin on. ?Nuts and nut products. ?Chocolate. If you regularly take a diuretic medicine, make sure to eat at least 1 or 2 servings of fruits or vegetables that are high in potassium each day. These include: ?Avocado. ?Banana. ?[place], prune, carrot, or tomato juice. ?Baked potato. ?Cabbage. ?Beans and split peas. Lifestyle Drink enough fluid to keep your urine pale yellow. This is the most important thing you can do. Spread your fluid intake throughout the day. If you drink alcohol: ?Limit how much you use to: ?0 1 drink a day for women who are not . ?0 2 drinks a day for men. ?Be aware of how much alcohol is in your drink. In the [place] one drink equals one 12 oz bottle of beer (355 mL), one 5 oz glass of wine (148 mL), or one 1 oz glass of hard liquor (44 mL). Lose weight if told by your health care provider. Work with your dietitian to find an eating plan and weight loss strategies that work best for you. General information Talk to your health care provider and dietitian about taking daily supplements. You may be told thefollowing depending on your health and the cause of your kidney stones: ?Not to take supplements with vitamin C. ?To take a calcium supplement. ?To take a daily probiotic supplement. ?To take other supplements such as magnesium, fish oil, or vitamin B6. Take [id number] and prescription medicines only as told by your health care provider. These include supplements. What foods should I limit? Limit your intake of the following foods, or eat them as told by your dietitian. Vegetables Spinach. Rhubarb. Beets. Canned vegetables. Pickles. Olives. Baked potatoes with skin. Grains Wheat bran. Baked goods. Salted crackers. Cereals high in sugar. Meats and other proteins Nuts. Nut butters. Large portions of meat, poultry, or fish. Salted, precooked, or cured meats, such as sausages, meat loaves, and hot dogs. Dairy Cheese. Beverages Regular soft drinks. Regular vegetable juice. Seasonings and condiments Seasoning blends with salt. Salad dressings. Soy sauce. Ketchup. Barbecue sauce. Other foods Canned soups. Canned pasta sauce. Casseroles. Pizza. Lasagna. Frozen meals. Potato chips. Zimbabwean fries. The items listed above may not be a complete list of foods and beverages you should limit. Contact a dietitian for more information. What foods should I avoid? Talk to your dietitian about specific foods you should avoid based on the type of kidney stones youhave and your overall health. Fruits Grapefruit. The item listed above may not be a complete list of foods and beverages you should avoid. Contact adietitian for more information. Summary Kidney stones are deposits of minerals and salts that form inside your kidneys. You can lower your risk of kidney stones by making changes to your diet. The most important thing you can do is drink enough fluid. Drink enough fluid to keep your urine pale yellow. Talk to your dietitian about how much calcium you should have each day, and eat less salt and animal protein as told by your dietitian. This information is not intended to replace advice given to you by your health care provider. Make sure you discuss any questions you have with your health care provider. Document Revised: 02/06/2022 Document Reviewed: 02/06/2022 [employer] Patient Education 2022 [employer]. 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 - restart statin? Continue PT/OT Fall precautions Jan, Muscle weakness of right upper extremity (ICD-10 - M62.81) No explanation, refer to ER for urgent evaluation. Jan, Stenosis of left vertebral artery (ICD-10 - I65.02) Continue secondary prevention measures. Should be taking ASA and Statin f/u Neurology Jan, Essential hypertension (ICD-10 - I10) This patient is instructed to consume a healthy, low-fat, low-salt diet. They are also encouraged to continue exercise to achieve/maintain a normal BMI. Monitor for now. Jan, Tachycardia (ICD-10 - R00.0) Stable w/ Carvedilol, no change in treatment Avoid stimulants Jan, IFG (impaired fasting glucose) (ICD-10 - R73.01) A1C < 7% Healthy diet, exercise No longer taking GLP 1 - d/c may lead to CVA? Jan, Elevated cholesterol (ICD-10 - E78.00) Instructed on diet and exercise with continued statin therapy.Discussed the beneficial effects of lowering cholesterol in reducing the risk for cerebrovascular and cardiovascular disease. Jan, Current mild episode of major depressive disorder without prior episode (ICD-10 - F32.0) Initiated on Effexor at 37.5mg - patient unsure why this was prescribed and why no instructions to titrate dose - instructed to inquire w/ Neurologist I would recommend increasing dose for expected mood disorder following this serious event Keep active, healthy diet and continue therapy Counseling suggested Jan, Hesitancy of micturition (ICD-10 - R39.11) Jan, Benign prostatic hyperplasia with lower urinary tract symptoms (ICD-10 - N40.1) Required kramer catheter during hospitalization Initiated on Flomax w/o further difficulties. Continue for now. Jan, Nausea (ICD-10 - R11.0) Persistent and likely related to CBL CVA. Instructed to increase Zofran dose at noon due to afternoon nausea Small, frequent meals [employer] Other 08-16-2023 Discharge summary Author Srinivas Patricia [facility] January 24, 2023 1:59pm Note Date/Time January 24, 2023 10 :06am [facility] [address] [place] [address] Discharge Summary Signed Patient: Taras Hayward MR#: [id number] : 1970 Acct:[id number] Age/Sex: 52 / M Adm Date: 3 Loc: Room: 1V0988-[address]: Srinivas Patricia MD Copies to: Srinivas Patricia MD NO FAMILY PHYSICIAN~ Providers Date of Discharge: 01/24/23 Discharging Provider: Srinivas Patricia Primary Care Provider: PHYSICIAN NO FAMILY Consults: 01/03/23 15:41 Consult to Dietitian Routine Consult to Occupational Therapy Routine Consult to Physical Therapy Routine Speech Admit Screen Routine 01/03/23 15:43 Consult to Speech Therapy Routine 01/11/23 11:36 Consult to Vascular Surgery Routine 01/14/23 08:29 Consult to Neurology Routine 01/17/23 11:37 Consult to Neurosurgery Routine Discharge Diagnosis (1) S/P WINDOW GLASS CUTTER OFF shunt: (2) Hydrocephalus: (3) Cerebellar infarct: (4) Hypertension: (5) Obesity (BMI 35.0-39.9 without comorbidity): (6) Tachycardia: (7) Impaired mobility and activities of daily living: (8) DVT, popliteal, acute: Final Diagnosis Final Discharge Diagnosis: as above Summary Hospital Course Hospital course: Mr. Hayward is a 52 year old male presenting to inpatient rehab unit with functional impairments secondary to left cerebellar CVA.? His past medical history is notable for obesity, hypertension, nephrolithiasis, gastric bypass surgery. Patient presented to [place] emergency department via EMS with complaints of dizziness, nausea and vomiting, vertigo, and headache.? He stated the symptoms started suddenly when he was sitting in the chair after returning from work thatday.? CTA head and neck demonstrated left vertebral artery occlusion near originwhich prompted a transfer to [facility] in [place]. MRI of the brain showed late acute infarct involving inferior portion of the left cerebellar hemisphere with mass effect on medulla and right midbrain shift.? On 12/13/2022 patient became progressively lethargic.? Repeat CT brain demonstrated worsening hydrocephalus with concern for increased intracranial pressure with progressive effacement of basal cisterns and possibly some early left-sided transtentorial herniation development.? He underwent suboccipital decompressive craniotomy and C1 laminectomy with right frontal EVD placement. On 12/19/2022 the above EVD was removed and replaced on 12/25/2022 due to complaints of a headache with subsequent CT imaging demonstrating pseudocyst.? On 12/30/2022 patient underwent a WINDOW GLASS CUTTER OFF shunt placement due to obstructive hydrocephalus and malignant edema, EVD removed at that time. She was recommended acute rehabilitation for strengthening.? On admission patient is alert and oriented x3, answers questions appropriately.? No significant neurological deficits noted on assessment.? He feels slightly off balance and experiences occasional dizziness with movement/position changes and intermittent nausea, but it has improved dramatically over the past several days.? He reports no change in vision, his speech is clear and fluent.? He reports no cardiopulmonary complaints.? Heart rate noted to be elevated in 100s on assessment.? He does take carvedilol for hypertension and tachycardia. Prior to most recent hospitalization he was generally healthy and worked full- time at [employer]. Rehabilitation Course: Course was complicated by right popliteal DVT. Vascular surgery was consulted and recommended oral anticoagulation if cleared by neurosurgery. I discussed the case with his neurosurgery and the patient was initiated on Eliquis. The patient never developed any chest pain, no dyspnea nor shortness of breath, nor persistent tachycardia that would have been suspicious for PE. He had a repeat venous duplex prior to discharge which redemonstrated popliteal DVT. Biggest issue throughout his stay was the persistence of his neurologic symptoms, manifesting as nausea with dry heaving, especially with position changes, and ataxia. He had multiple CT studies and an MRI of his brain. Neurology was consulted and the case was also again reviewed with his neurosurgery team. Ultimately the impression of providers was that he would just require supportive, symptomatic care. There do not appear to be any complications with his shunt or the way it is programmed, he has follow-up with neurosurgery in a few weeks. He and his partner were advised to seek emergent care, should his symptoms worsen. Started on Effexor for depression, tolerated well. He is ambulatory about 235 feet, standby assist with a walker. He does remain afall risk. He had a urinary tract infection which was treated. Repeat UA just demonstratedrare skin taye. He has a history of urinary incontinence and premorbidly was established with urology. Patient will require placement of Kramer if unable to void before discharge. Urology can follow-up in the office. Last BM 01/21. Condition Condition at Discharge: Stable Status at Discharge Functional status at discharge: uses cane/walker Overall status at discharge: patient is progressing back to baseline Time Spent with Patient Time spent providing/coordinating discharge services (# min): 40 Specific discharge activities: Total time spent discharging this patient > 30 minutes Greater than 30 minutes spent preparing the patient for discharge including the following: Discussion of the hospital stay with patient and/or family Instructions for continuing care to all relevant caregivers Reviewing discharge plan with medical staff, social work, care management, and nursing staff Supervision of discharge paperwork, medication reconciliation, prescriptions, and outpatient appointments Prescribed necessary DME at discharge when indicated Exam Physical Exam Vital Signs: Temp Pulse Resp BP Pulse Ox O2 Del Method 97.5 F L 90 20 115/79 94 L Room Air 01/24/23 04:55 01/24/23 04:55 01/24/23 04:55 01/24/23 04:55 01/24/23 04:55 01/24/23 04:55 Narrative: General: cooperative, comfortable HENMT Head: normal to inspection Eyes General: appearance normal, both eyes and all related structures Neck Neck: normal visual inspection, no lymphadenopathy Resp Effort & Inspection: normal respiratory effort Auscultation: clear to auscultation bilaterally Cardio Rate: regular rate Rhythm: regular rhythm Heart Sounds: S1 normal, S2 normal GI Inspection: normal to inspection Auscultation: normal bowel sounds Neuro Cranial Nerves: CN's II-XI intact bilaterally, Cognition: normal cognition Speech: speech abnormal, mildly dysarthric Motor: strength 5/5 throughout, grossly, ataxic Sensory Exam: no sensory deficits noted Plantar Reflexes: Downgoing Deep Tendon Reflexes DTR Comments: 1+ and symmetric Mood: normal affect Affect: normal affect Endurance fair Minimal rle edema Discharge Plan Discharge Plan Patient Disposition: Home Health [facility] Activity: Ambulate as Tolerated Diet: Regular Additional Instructions: -Code status: Full code. -Activity: Ambulate as tolerated. No driving until cleared by Neurologist, may ride in car. -Diet: Regular diet. -Eating strategies: Sit upright at 90 degrees with oral intake. -Wound care to craniotomy and posterior neck incisions: May leave open to air aslong as there is no drainage present. May shower, but no soaking/submerging, or scrubbing incisions until fully healed, or told otherwise by Surgeon. -Routinue Kramer catheter care (see attached instructions). Kramer cathter was re-inserted on 01/24/23 due to urinary retention. Kramer catheter should remain in place until you follow up with Urology (see below for appointment details). Your Home Health agency is [facility] ( ). They will contact you 24-48 hours after discharge to schedule a day/time to meet withyou at your home to establish care. You have been given prescriptions for new and/or needed medications. These prescriptions are for a one-time fill only, with no re-fills. For further re- fills going forward, you will need to address with your PCP at your follow up appointment, or by calling your PCP?s office prior to the prescriptions running out. NOTE: please call within 24 hours if you need to cancel or change any follow up appointments. Arrive early to all follow up appointments, bring current medication list, photo ID and any insurance card(s) to all future follow ups (listed below). Please remember to wear a mask to all appointments. If you develop any symptoms (cough, fever/chills, shortness of breath, sore throat, nausea/vomiting, etc.) please contact your provider's office to inform them prior to your appointment.. Instructions: Stroke (DC), Cyproheptadine, [facility] Kramer Catheter Care at Home Prescriptions: New Eliquis 5 mg Tablet 5 mg PO BID 30 Days Qty: 60 0RF acetaminophen 500 mg Tablet 500 mg PO Q4H PRN (Reason: Headache) 30 Days Qty: 180 0RF venlafaxine 37.5 mg Capsule,Extended Release 24hr 37.5 mg PO DAILY 30 Days Qty: 30 0RF bacitracin 500 unit/gram Ointment 1 applic topical BID Qty: 0 0RF cyproheptadine 4 mg Tablet 4 mg PO QHS 30 Days Qty: 30 0RF tamsulosin 0.4 mg Capsule 0.4 mg PO HS 30 Days Qty: 30 0RF ondansetron 4 mg Tablet,Disintegrating 4 mg PO Q6HR PRN (Reason: Nausea And Vomiting) 7 Days Qty: 30 0RF Continued melatonin 3 mg Tablet 3 mg PO HS Ozempic 0.25 mg or 0.5 mg (2 mg/3 mL) Pen Injector 0.5 mg SUBCUT QWEEK carvedilol [Coreg] 6.25 mg Tablet 6.25 mg PO Q12H 30 Days Qty: 60 0RF Rx Instructions: must administer with a meal/food polyethylene glycol 3350 [Miralax] 17 gram Powder In Packet 17 g PO DAILY PRN (Reason: Constipation) 30 Days Qty: 30 0RF atorvastatin 10 mg Tablet 10 mg PO QHS 30 Days Qty: 30 0RF aspirin 81 mg Tablet,Delayed Release (Dr/Ec) 81 mg PO QAM 30 Days Qty: 30 0RF Discontinued sennosides-docusate sodium 8.6-50 mg Tablet 2 tab-cap PO BID amitriptyline 10 mg Tablet 10 mg PO QHS bacitracin 500 unit/gram ointment 1 applic topical BID 7 Days Qty: 1022.4 0RF Other Ambulatory Orders: Initiate Home Health (Routine) Timeframe: 20230122 Location: Determined by Patient Ordered By: Srinivas Patricia [facility] Medical Equipment (Routine) Timeframe: 20230122 Location: Determined by Patient Ordered By: Srinivas Patricia Follow Up: Angélica Toussaint MD [Other] - 02/14/23 1:10 pm [facility] Stroke Provider [Other] - 02/21/23 3:[address] angiogram head and carotid [Other] Konrad Lilly MD [Active Staff] - Awais Garcia DO [Referring] - 02/06/23 11:30 am (PCP) Srinivas Patricia MD [Active Staff] - (follow up with rehab physician as/if needed) Documented By: Srinivas Patricia MD 01/24/23 1006 Signed By: <Electronically signed by Srinivas Patricia MD> 01/24/23 2735 [facility] Work Phone: 1(688) 296-349308-15-2023 Progress note Author Srinivas Patricia [facility] January 23, 2023 10:27am Note Date/Time January 23, 2023 10 :27am [facility] [address] [place], [place] [id number] Physiatry(Rehab) Progress Note Signed Patient: Taras Hayward MR#: [id number] : 1970 Acct:[id number] Age/Sex: 52 / M Adm Date: 3 Loc: 5T Room: 7F3328-5 Type: ADM IN Attending Dr: Srinivas Patricia MD Copies to: ~ Date of Service: 01/23/2023 Subjective Subjective Narrative: Mr. Hayward is a 52 year old male presenting to inpatient rehab unit with functional impairments secondary to left cerebellar CVA. His past medical history is notable for obesity, hypertension, nephrolithiasis, gastric bypass surgery. Patient presented to [place] emergency department via EMS with complaints of dizziness, nausea and vomiting, vertigo, and headache. He stated the symptoms started suddenly when he was sitting in the chair after returning from work thatday. CTA head and neck [facility] in [place]. MRI of the brain showed late acute infarct involving inferior portion of the left cerebellar hemisphere with mass effect on medulla and right midbrain shift. On 12/13/2022 patient became progressively lethargic. Repeat CT brain demonstrated worsening hydrocephalus with concern for increased intracranial pressure with progressive effacement of basal cisterns and possibly some early left-sided transtentorial herniation development. He underwent suboccipital decompressive craniotomy and C1 laminectomy with right frontal EVD placement. On 12/19/2022 the above EVD was removed and replaced on 12/25/2022 due to complaints of a headache with subsequent CT imaging demonstrating pseudocyst. On 12/30/2022 patient underwent a WINDOW GLASS CUTTER OFF shunt placement due to obstructive hydrocephalus and malignant edema, EVD removed at that time. She was recommended acute rehabilitation for strengthening. On admission patient is alert and oriented x3, answers questions appropriately. No significant neurological deficits noted on assessment. He feels slightly off balance and experiences occasional dizziness with movement/position changes and intermittent nausea, but it has improved dramatically over the past several days. He reports no change in vision, his speech is clear and fluent. He reports no cardiopulmonary complaints. Heart rate noted to be elevated in 100s on assessment. He does take carvedilol for hypertension and tachycardia. Prior to most recent hospitalization he was generally healthy and worked full- time at [employer]. Interval History: Still retaining urine, required CIC this morning. Will hold off on replacing kramer, patient does not want to go with catheter in place. He feels generally well, agreeable to therapy today. Brief family instruction this afternoon. Venous duplex redemonstrated right popliteal DVT. O2 Sats in the 90s on room air. Review of Systems Review of Systems All other systems reviewed & are negative unless noted below or in HPI Exam Physical Exam Vital Signs: Temp Pulse Resp BP Pulse Ox O2 Del Method 97.9 F 112 H 18 111/79 95 Room Air 01/23/23 08:47 01/23/23 08:47 01/23/23 08:47 01/23/23 08:47 01/23/23 08:47 01/23/23 08:47 Narrative: General: cooperative, comfortable HENMT Head: normal to inspection Eyes General: appearance normal, both eyes and all related structures Neck Neck: normal visual inspection, no lymphadenopathy Resp Effort & Inspection: normal respiratory effort Auscultation: clear to auscultation bilaterally Cardio Rate: regular rate Rhythm: regular rhythm Heart Sounds: S1 normal, S2 normal GI Inspection: normal to inspection Auscultation: normal bowel sounds Neuro Cranial Nerves: CN's II-XI intact bilaterally, Cognition: normal cognition Speech: speech abnormal, dysarthric Motor: strength 5/5 throughout, grossly, ataxic Sensory Exam: no sensory deficits noted Plantar Reflexes: Downgoing Deep Tendon Reflexes DTR Comments: 1+ and symmetric Mood: normal affect Affect: normal affect Endurance fair Objective Labs 01/22/23 09:57 01/22/23 09:57 Labs: Laboratory Results - last 24 hr 01/22/23 01/22/23 01/22/23 09:57 09:57 18:30 Corrected WBC 8.0 Uncorrected WBC Count 8.0 RBC 4.97 Hgb 13.8 Hct 42.6 MCV 85.7 MCH 27.8 MCHC 32.4 L RDW 14.8 Plt Count 280 MPV 8.0 Neut % (Auto) 65.2 Lymph % (Auto) 25.4 [place] % (Auto) 6.7 Eos % (Auto) 2.4 Baso % (Auto) 0.3 Nucleat RBC Rel Count 0.1 Neut # (Auto) 5.2 Lymph # (Auto) 2.0 [place] # (Auto) 0.5 Eos # (Auto) 0.2 Baso # (Auto) 0.0 PHA Creatinine Clear 131.71 Sodium 134 L Potassium 3.8 Chloride 98 Carbon Dioxide 29.2 Anion Gap 10.6 BUN 16 Creatinine 1.04 Est GFR (CKD-EPI) > 60.0 Glucose 147 H Calcium 9.3 Urine Color [place] A Urine Appearance Cloudy A Urine pH 5.5 Ur Specific [place] 1.024 Urine Protein 100 H Urine Glucose (UA) Normal Urine Ketones Trace H Urine Occult Blood 3+ H Urine Nitrite Negative Urine Bilirubin Negative Urine Urobilinogen Normal Ur Leukocyte Esterase 2+ H Urine RBC 20-49 H Urine WBC 5-9 H Ur Squamous Epith Cells None seen Calcium Oxalate Crystal Rare Urine Bacteria Rare H Hyaline Casts None seen Urine Yeast None seen Medications and Allergies Allergies and Active Meds: Allergies No Known Allergies Allergy (Verified 01/09/23 09:32) Active Medications Generic Name Dose Route Start Last Admin Trade Name Freq PRN Reason Stop Dose Admin Acetaminophen 1,000 mg 01/11/23 09:00 01/23/23 08:44 Acetaminophen 500 Mg Tablet PO 01/11/24 08:59 1,000 mg TID LEANNA Administration Al Hydrox/Mg Hydrox/Simethicone 30 ml 01/03/23 15:41 Mag Hydrox/Al Hydrox/Simeth 30 Ml Udc PO 01/03/24 15:40 Q4H PRN Indigestion Amitriptyline HCl 10 mg 01/03/23 22:00 01/10/23 20:43 Amitriptyline 10 Mg Tablet PO 01/03/24 21:59 10 mg QHS LEANNA Administration Apixaban 5 mg 01/18/23 21:00 01/23/23 08:44 Apixaban 5 Mg Tablet PO 01/18/24 20:59 5 mg BID LEANNA Administration Aspirin 81 mg 01/04/23 09:00 01/23/23 08:44 Aspirin 81 Mg Tablet. PO 01/04/24 08:59 81 mg QAM LEANNA Administration Atorvastatin Calcium 10 mg 01/03/23 22:00 01/22/23 20:44 Atorvastatin 10 Mg Tablet PO 01/03/24 21:59 10 mg QHS LEANNA Administration Bacitracin 1 applic 01/09/23 21:00 01/23/23 08:45 Bacitracin Oint 14 Gm Tube TOPICAL 01/09/24 20:59 1 applic BID LEANNA Administration Bisacodyl 10 mg 01/03/23 15:41 Bisacodyl 10 Mg Supp.Rect [place] 01/03/24 15:40 DAILY PRN Constipation Carvedilol 12.5 mg 01/05/23 09:15 01/23/23 08:44 Carvedilol 12.5 Mg Tablet PO 01/05/24 09:14 12.5 mg Q12HR LEANNA Administration Cyproheptadine HCl 4 mg 01/14/23 22:00 01/22/23 20:44 Cyproheptadine 4 Mg Tablet PO 01/14/24 21:59 4 mg QHS LEANNA Administration Diazepam 1 mg 01/14/23 13:51 01/18/23 20:37 Diazepam 2 Mg Tablet PO 07/13/23 20:59 1 mg BID PRN Administration severe dizziness Docusate Sodium 100 mg 01/03/23 15:41 01/21/23 08:31 Docusate 100 Mg Capsule PO 01/03/24 15:40 100 mg BID PRN Administration Constipation Docusate Sodium 283 mg 01/03/23 15:41 Docusate Enema 283 Mg/5 Ml Enema VA 01/03/24 15:40 DAILY PRN Constipation Lactulose 30 gm 01/03/23 15:41 01/21/23 14:44 Lactulose 20 Gm/30 Ml Udc PO 01/03/24 15:40 30 gm DAILY PRN Administration Constipation Meclizine HCl 25 mg 01/11/23 13:48 01/14/23 02:26 Meclizine 25 Mg Tablet PO 01/11/24 13:47 25 mg Q8H PRN Administration Vertigo Melatonin 3 mg 01/03/23 22:00 01/22/23 20:44 Melatonin 3 Mg Tablet PO 01/03/24 21:59 3 mg HS LEANNA Administration Ondansetron HCl 4 mg 01/03/23 15:40 01/22/23 14:56 Ondansetron Odt 4 Mg Tab.Rapdis PO 01/03/24 15:39 4 mg Q6HR PRN Administration Nausea And Vomiting Oxycodone HCl 5 mg 01/10/23 12:06 01/23/23 07:11 Oxycodone Ir 5 Mg Tablet PO 5 mg TID PRN Administration Pain Scale 7 - 10 Polyethylene Glycol 17 gm 01/13/23 21:00 01/23/23 08:42 Polyethylene Glycol 3350 17 Gm Powd.Pack PO 01/13/24 20:59 17 gm BID LEANNA Administration Promethazine HCl 12.5 mg 01/18/23 09:07 01/19/23 11:54 Promethazine 12.5 Mg Tablet PO 01/18/24 09:06 12.5 mg Q6H PRN Administration Nausea And Vomiting Senna/Docusate Sodium 2 tab 01/03/23 21:00 01/23/23 08:43 Sennosides/Docusate 8.6-50mg 1 Tab Tablet PO 01/03/24 20:59 2 tab BID LEANNA Administration Sennosides 2 tab 01/04/23 12:00 01/15/23 05:31 Sennosides 8.6 Mg Tablet PO 01/04/24 11:59 2 tab DAILY@12 PRN Administration If no BM in 2 days Sodium Chloride 0 ml 01/03/23 15:41 Sodium Chloride 0.9 % 10 Ml Syringe IV-PUSH 01/03/24 15:40 PRN PRN Flush Tamsulosin HCl 0.4 mg 01/17/23 11:50 01/22/23 20:44 Tamsulosin 0.4 Mg Cap.Er.24h PO 01/17/24 11:49 0.4 mg HS LEANNA Administration Venlafaxine HCl 37.5 mg 01/11/23 09:00 01/23/23 08:44 Venlafaxine Er 37.5 Mg Cap.Er.24h PO 01/11/24 08:59 37.5 mg DAILY LEANNA Administration Assessment/Plan Assessment/Plan (1) S/P WINDOW GLASS CUTTER OFF shunt: Code(s): Z98.2 - Presence of cerebrospinal fluid drainage device Status: Acute (2) Hydrocephalus: Code(s): G91.9 - Hydrocephalus, unspecified Status: Acute (3) Cerebellar infarct: Code(s): I63.9 - Cerebral infarction, unspecified Status: Acute (4) Hypertension: Code(s): I10 - Essential (primary) hypertension Status: Acute (5) Obesity (BMI 35.0-39.9 without comorbidity): Code(s): E66.9 - Obesity, unspecified Status: Acute (6) Tachycardia: Code(s): R00.0 - Tachycardia, unspecified Status: Acute (7) Impaired mobility and activities of daily living: Code(s): Z74.09 - Other reduced mobility; Z78.9 - Other specified health status Status: Acute (8) DVT, popliteal, acute: Code(s): I82.439 - Acute embolism and thrombosis of unspecified popliteal vein Status: Acute Plan 52-year-old male presenting to acute inpatient rehab with functional impairmentssecondary to left cerebellar CVA s/p WINDOW GLASS CUTTER OFF shunt placement due to development of hydrocephalus. . He does complain of continued intermittent headaches, nausea/vomiting, dizziness/lightheadedness. * Stable, venous duplex reviewed * Still with retention, f/u final urine c/s before discharge, consider re- treatment if bacteria present >100K * Plan remains home tomorrow Patient education Pressure ulcer prophylaxis; encourage mobilization, frequent postural changes, pressure-relief techniques DVT prophylaxis: Anticoagulated with Eliquis. Encourage deep breathing exercise incentive spirometry. Monitor bladder. Toileting schedule. Continue current bladder management, with scans as needed and CIC if needed. Start bowel care program every day to obtain continence, prevent ileus. Maintain fall precautions Gait and balance retraining Functional training and self-care and home management, including activities of daily living and instrumental activities of daily living Provision of the necessary gait aids and functional adaptive equipment to enhance the patient's a functional spiritism Ensure adequate nutrition and hydration Sleep: No issues Pain: Continue current regimen Discharge planning:. Home 01/24. I spent greater than 25 minutes for services, including [id number] encounter with the patient, discussion of the case, plan of care, and exam; and [id number] activities, such as reviewing pertinent learning consultant documentation,recent therapy notes, laboratory and radiology studies, and discussion of case with care team including physician, nursing, skilled nursing case manager, and therapists. More than 50 % of time was spent on patient/family counseling or coordination ofcare. Documented By: Srinivas Patricia MD 01/23/23 1024 Signed By: <Electronically signed by Srinivas Patricia MD> 01/23/23 1027 [facility] Work Phone: [phone] 150-482208-14-2023 Progress note Author Srinivas Patricia [facility] January 22, 2023 2:08pm Note Date/Time January 22, 2023 9: 41am [facility] [address] [place], [place] [id number] Physiatry(Rehab) Progress Note Signed Patient: Taras Hayward MR#: [id number] : 1970 Acct:[id number] Age/Sex: 52 / M Adm Date: 3 Loc: Room: [address] [place] [address] Type: ADM IN Attending Dr: Srinivas Patricia MD Copies to: ~ Date of Service: 01/22/2023 Subjective Subjective Narrative: Mr. Hayward is a 52 year old male presenting to inpatient rehab unit with functional impairments secondary to left cerebellar CVA. His past medical history is notable for obesity, hypertension, nephrolithiasis, gastric bypass surgery. Patient presented to [place] emergency department via EMS with complaints of dizziness, nausea and vomiting, vertigo, and headache. He stated the symptoms started suddenly when he was sitting in the chair after returning from work thatday. CTA head and neck demonstrated left vertebral artery occlusion near originwhich prompted a transfer to [facility] in [place]. MRI of the brain showed late acute infarct involving inferior portion of the left cerebellar hemisphere with mass effect on medulla and right midbrain shift. On 12/13/2022 patient became progressively lethargic. Repeat CT brain demonstrated worsening hydrocephalus with concern for increased intracranial pressure with progressive effacement of basal cisterns and possibly some early left-sided transtentorial herniation development. He underwent suboccipital decompressive craniotomy and C1 laminectomy with right frontal EVD placement. On 12/19/2022 the above EVD was removed and replaced on 12/25/2022 due to complaints of a headache with subsequent CT imaging demonstrating pseudocyst. On 12/30/2022 patient underwent a WINDOW GLASS CUTTER OFF shunt placement due to obstructive hydrocephalus and malignant edema, EVD removed at that time. She was recommended acute rehabilitation for strengthening. On admission patient is alert and oriented x3, answers questions appropriately. No significant neurological deficits noted on assessment. He feels slightly off balance and experiences occasional dizziness with movement/position changes and intermittent nausea, but it has improved dramatically over the past several days. He reports no change in vision, his speech is clear and fluent. He reports no cardiopulmonary complaints. Heart rate noted to be elevated in 100s on assessment. He does take carvedilol for hypertension and tachycardia. Prior to most recent hospitalization he was generally healthy and worked full- time at [employer]. Interval History: He's doing well today. Mood is brighter. Ambulatory 235'. Improved with [employer]. Anxious for home discharge. Vitals stable on room air. Review of Systems Review of Systems All other systems reviewed & are negative unless noted below or in HPI Exam Physical Exam Vital Signs: Temp Pulse Resp BP Pulse Ox O2 Del Method 97.7 F 90 20 119/87 97 Room Air 01/22/23 06:07 01/22/23 09:02 01/22/23 06:07 01/22/23 09:02 01/22/23 09:02 01/22/23 09:02 Narrative: General: cooperative, comfortable HENMT Head: normal to inspection Eyes General: appearance normal, both eyes and all related structures Neck Neck: normal visual inspection, no lymphadenopathy Resp Effort & Inspection: normal respiratory effort Auscultation: clear to auscultation bilaterally Cardio Rate: regular rate Rhythm: regular rhythm Heart Sounds: S1 normal, S2 normal GI Inspection: normal to inspection Auscultation: normal bowel sounds Neuro Cranial Nerves: CN's II-XI intact bilaterally, Cognition: normal cognition Speech: speech abnormal, dysarthric Motor: strength 5/5 throughout, grossly, ataxic Sensory Exam: no sensory deficits noted Plantar Reflexes: Downgoing Deep Tendon Reflexes DTR Comments: 1+ and symmetric Mood: normal affect Affect: normal affect Endurance fair Objective Labs 01/19/23 05:47 01/19/23 05:47 Medications and Allergies Allergies and Active Meds: Allergies No Known Allergies Allergy (Verified 01/09/23 09:32) Active Medications Generic Name Dose Route Start Last Admin Trade Name Freq PRN Reason Stop Dose Admin Acetaminophen 1,000 mg 01/11/23 09:00 01/22/23 09:04 Acetaminophen 500 Mg Tablet PO 01/11/24 08:59 1,000 mg TID LEANNA Administration Al Hydrox/Mg Hydrox/Simethicone 30 ml 01/03/23 15:41 Mag Hydrox/Al Hydrox/Simeth 30 Ml Udc PO 01/03/24 15:40 Q4H PRN Indigestion Amitriptyline HCl 10 mg 01/03/23 22:00 01/10/23 20:43 Amitriptyline 10 Mg Tablet PO 01/03/24 21:59 10 mg QHS LEANAN Administration Apixaban 5 mg 01/18/23 21:00 01/22/23 09:05 Apixaban 5 Mg Tablet PO 01/18/24 20:59 5 mg BID LEANNA Administration Aspirin 81 mg 01/04/23 09:00 01/22/23 09:04 Aspirin 81 Mg Tablet. PO 01/04/24 08:59 81 mg QAM LEANNA Administration Atorvastatin Calcium 10 mg 01/03/23 22:00 01/21/23 20:38 Atorvastatin 10 Mg Tablet PO 01/03/24 21:59 10 mg QHS LEANNA Administration Bacitracin 1 applic 01/09/23 21:00 01/22/23 09:05 Bacitracin Oint 14 Gm Tube TOPICAL 01/09/24 20:59 1 applic BID LEANNA Administration Bisacodyl 10 mg 01/03/23 15:41 Bisacodyl 10 Mg Supp.Rect VA 01/03/24 15:40 DAILY PRN Constipation Carvedilol 12.5 mg 01/05/23 09:15 01/22/23 09:05 Carvedilol 12.5 Mg Tablet PO 01/05/24 09:14 12.5 mg Q12HR LEANNA Administration Cyproheptadine HCl 4 mg 01/14/23 22:00 01/21/23 20:39 Cyproheptadine 4 Mg Tablet PO 01/14/24 21:59 4 mg QHS LEANNA Administration Diazepam 1 mg 01/14/23 13:51 01/18/23 20:37 Diazepam 2 Mg Tablet PO 07/13/23 20:59 1 mg BID PRN Administration severe dizziness Docusate Sodium 100 mg 01/03/23 15:41 01/21/23 08:31 Docusate 100 Mg Capsule PO 01/03/24 15:40 100 mg BID PRN Administration Constipation Docusate Sodium 283 mg 01/03/23 15:41 Docusate Enema 283 Mg/5 Ml Enema VA 01/03/24 15:40 DAILY PRN Constipation Lactulose 30 gm 01/03/23 15:41 01/21/23 14:44 Lactulose 20 Gm/30 Ml Udc PO 01/03/24 15:40 30 gm DAILY PRN Administration Constipation Meclizine HCl 25 mg 01/11/23 13:48 01/14/23 02:26 Meclizine 25 Mg Tablet PO 01/11/24 13:47 25 mg Q8H PRN Administration Vertigo Melatonin 3 mg 01/03/23 22:00 01/21/23 20:39 Melatonin 3 Mg Tablet PO 01/03/24 21:59 3 mg HS LEANNA Administration Ondansetron HCl 4 mg 01/03/23 15:40 01/22/23 09:04 Ondansetron Odt 4 Mg Tab.Rapdis PO 01/03/24 15:39 4 mg Q6HR PRN Administration Nausea And Vomiting Oxycodone HCl 5 mg 01/10/23 12:06 01/22/23 06:11 Oxycodone Ir 5 Mg Tablet PO 5 mg TID PRN Administration Pain Scale 7 - 10 Polyethylene Glycol 17 gm 01/13/23 21:00 01/22/23 09:05 Polyethylene Glycol 3350 17 Gm Powd.Pack PO 01/13/24 20:59 Not Given BID LEANNA Promethazine HCl 12.5 mg 01/18/23 09:07 01/19/23 11:54 Promethazine 12.5 Mg Tablet PO 01/18/24 09:06 12.5 mg Q6H PRN Administration Nausea And Vomiting Senna/Docusate Sodium 2 tab 01/03/23 21:00 01/22/23 09:05 Sennosides/Docusate 8.6-50mg 1 Tab Tablet PO 01/03/24 20:59 2 tab BID LEANNA Administration Sennosides 2 tab 01/04/23 12:00 01/15/23 05:31 Sennosides 8.6 Mg Tablet PO 01/04/24 11:59 2 tab DAILY@12 PRN Administration If no BM in 2 days Sodium Chloride 0 ml 01/03/23 15:41 Sodium Chloride 0.9 % 10 Ml Syringe IV-PUSH 01/03/24 15:40 PRN PRN Flush Tamsulosin HCl 0.4 mg 01/17/23 11:50 01/21/23 20:38 Tamsulosin 0.4 Mg Cap.Er.24h PO 01/17/24 11:49 0.4 mg HS LEANNA Administration Venlafaxine HCl 37.5 mg 01/11/23 09:00 01/22/23 09:05 Venlafaxine Er 37.5 Mg Cap.Er.24h PO 01/11/24 08:59 37.5 mg DAILY LEANNA Administration Assessment/Plan Assessment/Plan (1) S/P WINDOW GLASS CUTTER OFF shunt: Code(s): Z98.2 - Presence of cerebrospinal fluid drainage device Status: Acute (2) Hydrocephalus: Code(s): G91.9 - Hydrocephalus, unspecified Status: Acute (3) Cerebellar infarct: Code(s): I63.9 - Cerebral infarction, unspecified Status: Acute (4) Hypertension: Code(s): I10 - Essential (primary) hypertension Status: Acute (5) Obesity (BMI 35.0-39.9 without comorbidity): Code(s): E66.9 - Obesity, unspecified Status: Acute (6) Tachycardia: Code(s): R00.0 - Tachycardia, unspecified Status: Acute (7) Impaired mobility and activities of daily living: Code(s): Z74.09 - Other reduced mobility; Z78.9 - Other specified health status Status: Acute (8) DVT, popliteal, acute: Code(s): I82.439 - Acute embolism and thrombosis of unspecified popliteal vein Status: Acute Plan 52-year-old male presenting to acute inpatient rehab with functional impairmentssecondary to left cerebellar CVA s/p WINDOW GLASS CUTTER OFF shunt placement due to development of hydrocephalus. . He does complain of continued intermittent headaches, nausea/vomiting, dizziness/lightheadedness. * Improved today, ambulatory and working with PT/OT/[employer]. * Mood improved. * D/C kramer after therapy, check bladder scans, flomax in place, patient desires home with no catheter. Patient education Pressure ulcer prophylaxis; encourage mobilization, frequent postural changes, pressure-relief techniques DVT prophylaxis: Anticoagulated with Eliquis. Encourage deep breathing exercise incentive spirometry. Monitor bladder. Toileting schedule. Continue current bladder management, with scans as needed and CIC if needed. Start bowel care program every day to obtain continence, prevent ileus. Maintain fall precautions Gait and balance retraining Functional training and self-care and home management, including activities of daily living and instrumental activities of daily living Provision of the necessary gait aids and functional adaptive equipment to enhance the patient's a functional spiritism Ensure adequate nutrition and hydration Sleep: No issues Pain: Continue current regimen Discharge planning:. Home 01/24. I spent greater than 25 minutes for services, including [id number] encounter with the patient, discussion of the case, plan of care, and exam; and [id number] activities, such as reviewing pertinent learning consultant documentation, recent therapy notes, laboratory and radiology studies, and discussion of case with care team including physician, nursing, skilled nursing case manager, and therapists. More than 50 % of time was spent on patient/family counseling or coordination ofcare. Documented By: Srinivas Patricia MD 01/22/23 0940 Signed By: <Electronically signed by Srinivas Patricia MD> 01/22/23 1408 [facility] Work Phone: [phone]) 344-748808-11-2023 Progress note Author Srinivas Patricia [facility] January 19, 2023 1:10pm Note Date/Time January 19, 2023 1: 10pm [facility] [address] [place] [address] Physiatry(Rehab) Progress Note Signed Patient: Taras Hayward MR#: [id number] : 1970 Acct:[id number] Age/Sex: 52 / M Adm Date: 3 Loc: Room: [address] [place] [address] Type: ADM IN Attending Dr: Srinivas Patricia MD Copies to: ~ Date of Service: 01/19/2023 Subjective Subjective Narrative: Mr. Hayward is a 52 year old male presenting to inpatient rehab unit with functional impairments secondary to left cerebellar CVA. His past medical history is notable for obesity, hypertension, nephrolithiasis, gastric bypass surgery. Patient presented to [place] emergency department via EMS with complaints of dizziness, nausea and vomiting, vertigo, and headache. He stated the symptoms started suddenly when he was sitting in the chair after returning from work thatday. CTA head and neck demonstrated left vertebral artery occlusion near originwhich prompted a transfer to [facility] in [place]. MRI of the brain showed late acute infarct involving inferior portion of the left cerebellar hemisphere with mass effect on medulla and right midbrain shift. On 12/13/2022 patient became progressively lethargic. Repeat CT brain demonstrated worsening hydrocephalus with concern for increased intracranial pressure with progressive effacement of basal cisterns and possibly some early left-sided transtentorial herniation development. He underwent suboccipital decompressive craniotomy and C1 laminectomy with right frontal EVD placement. On 12/19/2022 the above EVD was removed and replaced on 12/25/2022 due to complaints of a headache with subsequent CT imaging demonstrating pseudocyst. On 12/30/2022 patient underwent a WINDOW GLASS CUTTER OFF shunt placement due to obstructive hydrocephalus and malignant edema, EVD removed at that time. She was recommended acute rehabilitation for strengthening. On admission patient is alert and oriented x3, answers questions appropriately. No significant neurological deficits noted on assessment. He feels slightly off balance and experiences occasional dizziness with movement/position changes and intermittent nausea, but it has improved dramatically over the past several days. He reports no change in vision, his speech is clear and fluent. He reports no cardiopulmonary complaints. Heart rate noted to be elevated in 100s on assessment. He does take carvedilol for hypertension and tachycardia. Prior to most recent hospitalization he was generally healthy and worked full- time at [employer]. Interval History: In place for retention. He is completing antibiotics. Imaging reviewed from yesterday, nonacute. His labs this morning are normal. His vitals are stable. He is ambulatory, about 100 feet. Did have episode of dry heaving this morning otherwise no new issues. Case discussed with his partner, Carlos. Review of Systems Review of Systems All other systems reviewed & are negative unless noted below or in HPI Exam Physical Exam Vital Signs: Temp Pulse Resp BP Pulse Ox O2 Del Method 97.7 F 97 H 16 115/83 96 Room Air 01/19/23 11:57 01/19/23 11:57 01/19/23 11:57 01/19/23 11:57 01/19/23 11:57 01/19/23 11:59 Narrative: General: cooperative, comfortable HENLA Head: normal to inspection Eyes General: appearance normal, both eyes and all related structures Neck Neck: normal visual inspection, no lymphadenopathy Resp Effort & Inspection: normal respiratory effort Auscultation: clear to auscultation bilaterally Cardio Rate: regular rate Rhythm: regular rhythm Heart Sounds: S1 normal, S2 normal GI Inspection: normal to inspection Auscultation: normal bowel sounds Neuro Cranial Nerves: CN's II-XI intact bilaterally, dizzy with lateral gaze + nystagmus Cognition: normal cognition Speech: speech abnormal, dysarthric (improved 8/8 and 8/9) Motor: strength 5/5 throughout, grossly, ataxic Sensory Exam: no sensory deficits noted Plantar Reflexes: Downgoing Deep Tendon Reflexes DTR Comments: 1+ and symmetric Mood: normal affect Affect: normal affect Endurance fair Objective Labs 01/19/23 05:47 01/19/23 05:47 Labs: Laboratory Results - last 24 hr 01/19/23 01/19/23 05:47 05:47 Corrected WBC 8.8 Uncorrected WBC Count 8.8 RBC 4.92 Hgb 13.6 Hct 41.8 MCV 84.9 MCH 27.7 MCHC 32.6 RDW 14.3 Plt Count 245 MPV 8.1 Neut % (Auto) 53.7 Lymph % (Auto) 36.1 [place] % (Auto) 8.7 Eos % (Auto) 1.2 Baso % (Auto) 0.3 Nucleat RBC Rel Count 0.2 Neut # (Auto) 4.7 Lymph # (Auto) 3.2 [place] # (Auto) 0.8 Eos # (Auto) 0.1 Baso # (Auto) 0.0 PHA Creatinine Clear 135.51 Sodium 135 L Potassium 3.7 Chloride 99 Carbon Dioxide 26.2 Anion Gap 13.5 BUN 18 Creatinine 1.02 Est GFR (CKD-EPI) > 60.0 Glucose 109 H Calcium 8.8 Medications and Allergies Allergies and Active Meds: Allergies No Known Allergies Allergy (Verified 01/09/23 09:32) Active Medications Generic Name Dose Route Start Last Admin Trade Name oDm PRN Reason Stop Dose Admin Acetaminophen 1,000 mg 01/11/23 09:00 01/19/23 09:58 Acetaminophen 500 Mg Tablet PO 01/11/24 08:59 1,000 mg TID LEANNA Administration Al Hydrox/Mg Hydrox/Simethicone 30 ml 01/03/23 15:41 Mag Hydrox/Al Hydrox/Simeth 30 Ml Udc PO 01/03/24 15:40 Q4H PRN Indigestion Amitriptyline HCl 10 mg 01/03/23 22:00 01/10/23 20:43 Amitriptyline 10 Mg Tablet PO 01/03/24 21:59 10 mg QHS LEANNA Administration Apixaban 5 mg 01/18/23 21:00 01/19/23 09:58 Apixaban 5 Mg Tablet PO 01/18/24 20:59 5 mg BID LEANNA Administration Aspirin 81 mg 01/04/23 09:00 01/19/23 09:58 Aspirin 81 Mg Tablet. PO 01/04/24 08:59 81 mg QAM LEANNA Administration Atorvastatin Calcium 10 mg 01/03/23 22:00 01/18/23 20:34 Atorvastatin 10 Mg Tablet PO 01/03/24 21:59 10 mg QHS LEANNA Administration Bacitracin 1 applic 01/09/23 21:00 01/19/23 09:58 Bacitracin Oint 14 Gm Tube TOPICAL 01/09/24 20:59 1 applic BID LEANNA Administration Bisacodyl 10 mg 01/03/23 15:41 Bisacodyl 10 Mg Supp.Rect VA 01/03/24 15:40 DAILY PRN Constipation Carvedilol 12.5 mg 01/05/23 09:15 01/19/23 09:58 Carvedilol 12.5 Mg Tablet PO 01/05/24 09:14 12.5 mg Q12HR LEANNA Administration Cyproheptadine HCl 4 mg 01/14/23 22:00 01/18/23 20:34 Cyproheptadine 4 Mg Tablet PO 01/14/24 21:59 4 mg QHS LEANNA Administration Diazepam 1 mg 01/14/23 13:51 01/18/23 20:37 Diazepam 2 Mg Tablet PO 07/13/23 20:59 1 mg BID PRN Administration severe dizziness Docusate Sodium 100 mg 01/03/23 15:41 01/15/23 05:31 Docusate 100 Mg Capsule PO 01/03/24 15:40 100 mg BID PRN Administration Constipation Docusate Sodium 283 mg 01/03/23 15:41 Docusate Enema 283 Mg/5 Ml Enema VA 01/03/24 15:40 DAILY PRN Constipation Lactulose 30 gm 01/03/23 15:41 Lactulose 20 Gm/30 Ml Udc PO 01/03/24 15:40 DAILY PRN Constipation Meclizine HCl 25 mg 01/11/23 13:48 01/14/23 02:26 Meclizine 25 Mg Tablet PO 01/11/24 13:47 25 mg Q8H PRN Administration Vertigo Melatonin 3 mg 01/03/23 22:00 01/18/23 20:34 Melatonin 3 Mg Tablet PO 01/03/24 21:59 3 mg HS LEANNA Administration Ondansetron HCl 4 mg 01/03/23 15:40 01/16/23 06:10 Ondansetron Odt 4 Mg Tab.Rapdis PO 01/03/24 15:39 4 mg Q6HR PRN Administration Nausea And Vomiting Oxycodone HCl 5 mg 01/10/23 12:06 01/15/23 23:51 Oxycodone Ir 5 Mg Tablet PO 5 mg TID PRN Administration Pain Scale 7 - 10 Polyethylene Glycol 17 gm 01/13/23 21:00 01/19/23 09:59 Polyethylene Glycol 3350 17 Gm Powd.Pack PO 01/13/24 20:59 Not Given BID LEANNA Promethazine HCl 12.5 mg 01/18/23 09:07 01/19/23 11:54 Promethazine 12.5 Mg Tablet PO 01/18/24 09:06 12.5 mg Q6H PRN Administration Nausea And Vomiting Senna/Docusate Sodium 2 tab 01/03/23 21:00 01/19/23 09:59 Sennosides/Docusate 8.6-50mg 1 Tab Tablet PO 01/03/24 20:59 Not Given BID LEANNA Sennosides 2 tab 01/04/23 12:00 01/15/23 05:31 Sennosides 8.6 Mg Tablet PO 01/04/24 11:59 2 tab DAILY@12 PRN Administration If no BM in 2 days Sodium Chloride 0 ml 01/03/23 15:41 Sodium Chloride 0.9 % 10 Ml Syringe IV-PUSH 01/03/24 15:40 PRN PRN Flush Tamsulosin HCl 0.4 mg 01/17/23 11:50 01/18/23 20:33 Tamsulosin 0.4 Mg Cap.Er.24h PO 01/17/24 11:49 0.4 mg HS LEANNA Administration Trimethoprim/Sulfamethoxazole 1 tab 01/17/23 09:05 01/19/23 09:58 Sulfamethoxazole/Tmp 800-160mg 1 Tab Tablet PO 01/22/23 09:04 1 tab BID LEANNA Administration Venlafaxine HCl 37.5 mg 01/11/23 09:00 01/19/23 09:58 Venlafaxine Er 37.5 Mg Cap.Er.24h PO 01/11/24 08:59 37.5 mg DAILY LEANNA Administration Assessment/Plan Assessment/Plan (1) S/P WINDOW GLASS CUTTER OFF shunt: Code(s): Z98.2 - Presence of cerebrospinal fluid drainage device Status: Acute (2) Hydrocephalus: Code(s): G91.9 - Hydrocephalus, unspecified Status: Acute (3) Cerebellar infarct: Code(s): I63.9 - Cerebral infarction, unspecified Status: Acute (4) Hypertension: Code(s): I10 - Essential (primary) hypertension Status: Acute (5) Obesity (BMI 35.0-39.9 without comorbidity): Code(s): E66.9 - Obesity, unspecified Status: Acute (6) Tachycardia: Code(s): R00.0 - Tachycardia, unspecified Status: Acute (7) Impaired mobility and activities of daily living: Code(s): Z74.09 - Other reduced mobility; Z78.9 - Other specified health status Status: Acute (8) DVT, popliteal, acute: Code(s): I82.439 - Acute embolism and thrombosis of unspecified popliteal vein Status: Acute Plan 52-year-old male presenting to acute inpatient rehab with functional impairmentssecondary to left cerebellar CVA s/p WINDOW GLASS CUTTER OFF shunt placement due to development of hydrocephalus. . He does complain of continued intermittent headaches, nausea/vomiting, dizziness/lightheadedness. * Changed clinically. Still with fluctuating symptoms. Imaging from yesterday nonacute. Continue supportive care. * Ambulatory 100 feet. Speech is improved. Patient education Pressure ulcer prophylaxis; encourage mobilization, frequent postural changes, pressure-relief techniques DVT prophylaxis: Anticoagulated with Eliquis. Encourage deep breathing exercise incentive spirometry. Monitor bladder. Toileting schedule. Continue current bladder management, with scans as needed and CIC if needed. Start bowel care program every day to obtain continence, prevent ileus. Maintain fall precautions Gait and balance retraining Functional training and self-care and home management, including activities of daily living and instrumental activities of daily living Provision of the necessary gait aids and functional adaptive equipment to enhance the patient's a functional spiritism Ensure adequate nutrition and hydration Sleep: No issues Pain: Continue current regimen Discharge planning:. Home next week. I spent greater than 25 minutes for services, including [id number] encounter with the patient, discussion of the case, plan of care, and exam; and [id number] activities, such as reviewing pertinent learning consultant documentation, recent therapy notes, laboratory and radiology studies, and discussion of case with care team including physician, nursing, skilled nursing case manager, and therapists. More than 50 % of time was spent on patient/family counseling or coordination ofcare. Documented By: Srinivas Patricia MD 01/19/23 1305 Signed By: <Electronically signed by Srinivas Patricia MD> 01/19/23 1310 [facility] Work Phone: [phone] 147-925808-11-2023 Progress note Author Srinivas Patricia [facility] January 19, 2023 12:14pm Note Date/Time January 18, 2023 1: 17pm [facility] [address] [place] [address] Physiatry(Rehab) Progress Note Signed Patient: Taras Hayward MR#: [id number] : 1970 Acct:[id number] Age/Sex: 52 / M Adm Date: 3 Loc: Room: [address] [place] [address] Type: ADM IN Attending Dr: Srinivas Patricia MD Copies to: ~ <Tisha Cardona APRN - Last Filed: 01/18/23 13:51> Date of Service: 01/18/2023 Subjective <Tisha Cardona APRN - Last Filed: 01/18/23 13:51> Subjective Narrative: Mr. Hayward is a 52 year old male presenting to inpatient rehab unit with functional impairments secondary to left cerebellar CVA. His past medical history is notable for obesity, hypertension, nephrolithiasis, gastric bypass surgery. Patient presented to [place] emergency department via EMS with complaints of dizziness, nausea and vomiting, vertigo, and headache. He stated the symptoms started suddenly when he was sitting in the chair after returning from work thatday. CTA head and neck demonstrated left vertebral artery occlusion near originwhich prompted a transfer to [facility] in [place]. MRI of the brain showed late acute infarct involving inferior portion of the left cerebellar hemisphere with mass effect on medulla and right midbrain shift. On 12/13/2022 patient became progressively lethargic. Repeat CT brain demonstrated worsening hydrocephalus with concern for increased intracranial pressure with progressive effacement of basal cisterns and possibly some early left-sided transtentorial herniation development. He underwent suboccipital decompressive craniotomy and C1 laminectomy with right frontal EVD placement. On 12/19/2022 the above EVD was removed and replaced on 12/25/2022 due to complaints of a headache with subsequent CT imaging demonstrating pseudocyst. On 12/30/2022 patient underwent a WINDOW GLASS CUTTER OFF shunt placement due to obstructive hydrocephalus and malignant edema, EVD removed at that time. She was recommended acute rehabilitation for strengthening. On admission patient is alert and oriented x3, answers questions appropriately. No significant neurological deficits noted on assessment. He feels slightly off balance and experiences occasional dizziness with movement/position changes and intermittent nausea, but it has improved dramatically over the past several days. He reports no change in vision, his speech is clear and fluent. He reports no cardiopulmonary complaints. Heart rate noted to be elevated in 100s on assessment. He does take carvedilol for hypertension and tachycardia. Prior to most recent hospitalization he was generally healthy and worked full- time at [employer]. Interval History: Feeling somewhat better this morning. No nausea/vomiting reported. Denies dizziness/lightheadedness or headache at this time. Still feels drowsy/tired. Tolerated therapy earlier today. Ambulated 400 feet with a wheeled walker and CGA. SBA/CGA for transfers and bed mobility. MRI brain performed earlier, awaiting a formal read. Neurosurgery does not believe shunt adjustments are necessary at this time after reviewing the imaging. Review of Systems <Tisha Cardona APRN - Last Filed: 01/18/23 13:51> Review of Systems All other systems reviewed & are negative unless noted below or in HPI Exam <Tisha Cardona APRN - Last Filed: 01/18/23 13:51> Physical Exam Vital Signs: Temp Pulse Resp BP Pulse Ox O2 Del Method 98.2 F 100 H 18 125/85 97 Room Air 01/18/23 08:14 01/18/23 08:14 01/18/23 08:14 01/18/23 08:14 01/18/23 08:14 01/18/23 10:27 Narrative: Const General: cooperative, comfortable, no acute distress, well developed Nutritional Appearance: Normal body habitus Orientation: alert, awake and oriented x3 Limitations: None HEENT Head: Multiple surgical incisions to the right cranium with sutures intact. No surrounding erythema or induration. Edges of the wounds are well approximated. No drainage noted. Ears: hearing grossly normal bilaterally Nose: external nose normal Face and sinus: normal facial exam Eyes General: appearance normal, both eyes and all related structures Pupils: PERRL EOM: EOM intact bilaterally Neck Neck: normal visual inspection, full ROM, no lymphadenopathy and trachea midline Neck mass: No Chest Chest palpation & inspection: normal inspection of the chest Resp Effort & Inspection: normal respiratory effort, able to speak in complete sentences, symmetric chest movement and no cough Auscultation: clear to auscultation bilaterally Cardio Jugular venous pressure: no JVD Rhythm: Regular rhythm and rate GI: Inspection: normal to inspection Palpation: soft, no hepatosplenomegaly and nontender Auscultation: normal bowel sounds Musc Cervical Spine: normal cervical lordosis and cervical ROM normal Thoracic/Lumbar Spine: thoraco-lumbar ROM normal Skin General: Approximately 1 x 0.5 x 0.2 cm laceration above the left upper lip, bleeding controlled. Small abrasion to the top of the head. Larger abrasion to the left chest shoulder area. Neuro General: patient alert, oriented x3, moves all extremities Cranial Nerves: PERRL Speech: speech normal Extrem Other: WNL Psych Appearance: grossly normal Mental Status: WNL Mood: congruent mood Affect: normal affect Speech and Movement: speech and movement normal Attitude: cooperative Insight: Good Judgment: Good Objective <Tisha Cardona SUBSTATION INSPECTOR - Last Filed: 01/18/23 13:51> Labs 01/13/23 20:22 01/13/23 20:22 Medications and Allergies Allergies and Active Meds: Allergies No Known Allergies Allergy (Verified 01/09/23 09:32) Active Medications Generic Name Dose Route Start Last Admin Trade Name Freq PRN Reason Stop Dose Admin Acetaminophen 1,000 mg 01/11/23 09:00 01/18/23 08:07 Acetaminophen 500 Mg Tablet PO 01/11/24 08:59 1,000 mg TID LEANNA Administration Al Hydrox/Mg Hydrox/Simethicone 30 ml 01/03/23 15:41 Mag Hydrox/Al Hydrox/Simeth 30 Ml Udc PO 01/03/24 15:40 Q4H PRN Indigestion Amitriptyline HCl 10 mg 01/03/23 22:00 01/10/23 20:43 Amitriptyline 10 Mg Tablet PO 01/03/24 21:59 10 mg QHS LEANNA Administration Apixaban 5 mg 01/18/23 21:00 Apixaban 5 Mg Tablet PO 01/18/24 20:59 BID LEANNA Aspirin 81 mg 01/04/23 09:00 01/18/23 08:07 Aspirin 81 Mg Tablet. PO 01/04/24 08:59 81 mg QAM LEANNA Administration Atorvastatin Calcium 10 mg 01/03/23 22:00 01/17/23 20:53 Atorvastatin 10 Mg Tablet PO 01/03/24 21:59 10 mg QHS LEANNA Administration Bacitracin 1 applic 01/09/23 21:00 01/18/23 08:07 Bacitracin Oint 14 Gm Tube TOPICAL 01/09/24 20:59 Not Given BID LEANNA Bisacodyl 10 mg 01/03/23 15:41 Bisacodyl 10 Mg Supp.Rect VA 01/03/24 15:40 DAILY PRN Constipation Carvedilol 12.5 mg 01/05/23 09:15 01/18/23 08:07 Carvedilol 12.5 Mg Tablet PO 01/05/24 09:14 12.5 mg Q12HR LEANNA Administration Cyproheptadine HCl 4 mg 01/14/23 22:00 01/17/23 20:52 Cyproheptadine 4 Mg Tablet PO 01/14/24 21:59 4 mg QHS LEANNA Administration Diazepam 1 mg 01/14/23 13:51 01/14/23 15:25 Diazepam 2 Mg Tablet PO 07/13/23 20:59 1 mg BID PRN Administration severe dizziness Docusate Sodium 100 mg 01/03/23 15:41 01/15/23 05:31 Docusate 100 Mg Capsule PO 01/03/24 15:40 100 mg BID PRN Administration Constipation Docusate Sodium 283 mg 01/03/23 15:41 Docusate Enema 283 Mg/5 Ml Enema VA 01/03/24 15:40 DAILY PRN Constipation Lactulose 30 gm 01/03/23 15:41 Lactulose 20 Gm/30 Ml Udc PO 01/03/24 15:40 DAILY PRN Constipation Meclizine HCl 25 mg 01/11/23 13:48 01/14/23 02:26 Meclizine 25 Mg Tablet PO 01/11/24 13:47 25 mg Q8H PRN Administration Vertigo Melatonin 3 mg 01/03/23 22:00 01/17/23 20:53 Melatonin 3 Mg Tablet PO 01/03/24 21:59 3 mg HS LEANNA Administration Ondansetron HCl 4 mg 01/03/23 15:40 01/16/23 06:10 Ondansetron Odt 4 Mg Tab.Rapdis PO 01/03/24 15:39 4 mg Q6HR PRN Administration Nausea And Vomiting Oxycodone HCl 5 mg 01/10/23 12:06 01/15/23 23:51 Oxycodone Ir 5 Mg Tablet PO 5 mg TID PRN Administration Pain Scale 7 - 10 Polyethylene Glycol 17 gm 01/13/23 21:00 01/18/23 08:06 Polyethylene Glycol 3350 17 Gm Powd.Pack PO 01/13/24 20:59 17 gm BID LEANNA Administration Promethazine HCl 12.5 mg 01/18/23 09:07 Promethazine 12.5 Mg Tablet PO 01/18/24 09:06 Q6H PRN Nausea And Vomiting Senna/Docusate Sodium 2 tab 01/03/23 21:00 01/18/23 08:06 Sennosides/Docusate 8.6-50mg 1 Tab Tablet PO 01/03/24 20:59 2 tab BID LEANNA Administration Sennosides 2 tab 01/04/23 12:00 01/15/23 05:31 Sennosides 8.6 Mg Tablet PO 01/04/24 11:59 2 tab DAILY@12 PRN Administration If no BM in 2 days Sodium Chloride 0 ml 01/03/23 15:41 Sodium Chloride 0.9 % 10 Ml Syringe IV-PUSH 01/03/24 15:40 PRN PRN Flush Tamsulosin HCl 0.4 mg 01/17/23 11:50 01/17/23 21:00 Tamsulosin 0.4 Mg Cap.Er.24h PO 01/17/24 11:49 0.4 mg HS LEANNA Administration Trimethoprim/Sulfamethoxazole 1 tab 01/17/23 09:05 01/18/23 08:11 Sulfamethoxazole/Tmp 800-160mg 1 Tab Tablet PO 01/20/23 09:04 1 tab BID LEANNA Administration Venlafaxine HCl 37.5 mg 01/11/23 09:00 01/18/23 08:06 Venlafaxine Er 37.5 Mg Cap.Er.24h PO 01/11/24 08:59 37.5 mg DAILY LEANNA Administration Assessment/Plan <Tisha Cardona APRN - Last Filed: 01/18/23 13:51> Assessment/Plan (1) S/P WINDOW GLASS CUTTER OFF shunt: Code(s): Z98.2 - Presence of cerebrospinal fluid drainage device Status: Acute (2) Hydrocephalus: Code(s): G91.9 - Hydrocephalus, unspecified Status: Acute (3) Cerebellar infarct: Code(s): I63.9 - Cerebral infarction, unspecified Status: Acute (4) Hypertension: Code(s): I10 - Essential (primary) hypertension Status: Acute (5) Obesity (BMI 35.0-39.9 without comorbidity): Code(s): E66.9 - Obesity, unspecified Status: Acute (6) Tachycardia: Code(s): R00.0 - Tachycardia, unspecified Status: Acute (7) Impaired mobility and activities of daily living: Code(s): Z74.09 - Other reduced mobility; Z78.9 - Other specified health status Status: Acute (8) DVT, popliteal, acute: Code(s): I82.439 - Acute embolism and thrombosis of unspecified popliteal vein Status: Acute Plan 52-year-old male presenting to acute inpatient rehab with functional impairmentssecondary to left cerebellar CVA s/p WINDOW GLASS CUTTER OFF shunt placement due to development of hydrocephalus. . He does complain of continued intermittent headaches, nausea/vomiting, dizziness/lightheadedness. * No significant change since yesterday. Somewhat less nauseous and hasn't vomited, although does not have much of an appetite. Still feels drowsy and tired. * MRI obtained, pending. No shunt adjustment per NSGY. Patient education Pressure ulcer prophylaxis; encourage mobilization, frequent postural changes, pressure-relief techniques DVT prophylaxis: Anticoagulated with Eliquis. Encourage deep breathing exercise incentive spirometry. Monitor bladder. Toileting schedule. Continue current bladder management, with scans as needed and CIC if needed. Start bowel care program every day to obtain continence, prevent ileus. Maintain fall precautions Gait and balance retraining Functional training and self-care and home management, including activities of daily living and instrumental activities of daily living Provision of the necessary gait aids and functional adaptive equipment to enhance the patient's a functional spiritism Ensure adequate nutrition and hydration Sleep: No issues Pain: Continue current regimen Discharge planning:. Home 1-2 weeks. I spent greater than 20 minutes for services, including [id number] encounter with the patient, discussion of the case, plan of care, and exam; and [id number] activities, such as reviewing pertinent learning consultant documentation, recent therapy notes, laboratory and radiology studies, and discussion of case with care team including physician, nursing, skilled nursing case manager, and therapists. More than 50 % of time was spent on patient/family counseling or coordination ofcare. Plan: 3 <Irvin Sifuentes MD - Last Filed: 01/19/23 09:00> Assessment/Plan (1) S/P WINDOW GLASS CUTTER OFF shunt: (2) Hydrocephalus: (3) Cerebellar infarct: (4) Hypertension: (5) Obesity (BMI 35.0-39.9 without comorbidity): (6) Tachycardia: (7) Impaired mobility and activities of daily living: (8) DVT, popliteal, acute: Plan: I reviewed the history and the relevant portions of the chart, including currentorders, allied health and learning consultant notes, labs/imaging and plan of care as above. I reviewed the history and the relevant portions of the chart, including currentorders, allied health and learning consultant notes, labs/imaging and plan of care as above. Documented By: Tisha Cardona APRN 01/18/23 1 315 Signed By: <Electronically signed by RADHA Cardona> 01/18/23 1351 <Electronically signed by Srinivas Patricia MD> 01/19/23 1214 <Electronically signed by Irvin Sifuentes MD> 01/19/23 0900 [facility] Work Phone: 1(830) 770-896008-10-2023 Progress note Author Pilo Nieto [facility] January 18, 2023 5:10pm Note Date/Time January 18, 2023 5: 10pm [facility] [address] [place] [address] Neurology Progress Note Signed Patient: Taras Hayward MR#: [id number] : 1970 Acct:[id number] Age/Sex: 52 / M Adm Date: 3 Loc: Room: [address] [place] [address] Type: ADM IN Attending Dr: Srinivas Patricia MD Copies to: ~ Date of Service: 01/18/2023 Exam Physical Exam Vital Signs: Temp Pulse Resp BP Pulse Ox O2 Del Method 98.2 F 100 H 18 125/85 97 Room Air 01/18/23 08:14 01/18/23 08:14 01/18/23 08:14 01/18/23 08:14 01/18/23 08:14 01/18/23 10:27 Objective Vital Signs Vital Signs: Vital Signs - 24 hr 01/17/23 18:12 01/17/23 21:00 01/17/23 22:48 Temperature 98.1 F Pulse Rate 92 H Respiratory Rate 18 Blood Pressure 133/83 145/93 H 02 Sat by Pulse Oximetry 97 Oxygen Delivery Method Room Air Room Air 01/18/23 05:44 01/18/23 08:14 01/18/23 10:27 Temperature 98.1 F 98.2 F Pulse Rate 79 100 H Respiratory Rate 18 18 Blood Pressure 117/76 125/85 02 Sat by Pulse Oximetry 97 97 Oxygen Delivery Method Room Air Room Air Room Air Labs 01/13/23 20:22 01/13/23 20:22 Therapy Recommendations Therapy Recommendations: PT Recommendations PT Recommended Discharge Home with Outpatient Location ST Recommendations Level of Supervision Independent Self Feeding Liquid Consistency Thin Liquids Recommendation Solid Consistency Regular Solids Recommendations Meat Consistency Whole Meats Recommendations Medication Administration Give Pills with Water Dysphagia Swallow Precautions/ Sitting Upright (90 deg) Strategies ST Recommended Services at Speech Therapy Discharge Assessment/Plan (1) Cerebellar infarct: Assessment/Problem Details: CONSULT REASON: cerebellar infarct SUBJECTIVE: He still has multiple minutes of uncontrolled dry heaving and retching if he changes position in the bed too fast. Otherwise no new complaints. MRI was performed. EXAMINATION: Well-kempt.? No distress. ? Normal spinal curvature.? Limbs seem well- perfused.?No significant edema.? Normal work of breathing.? Visualized skin is generally intact and without lesions.? Affect normal.? Patient is alert and generally oriented.? Attention normal.? Speech is mildly ataxic dysarthria, overall fluent.? Pupils are equal and reactive.? Ocular motility is full.? No nystagmus.? Facial sensation is normal.? Hearing is normal.? Facial strength is normal.? Tongue is midline.? Muscle bulk, tone, and strength are generally normal.? No tremors.? Reflexes +3/4 patellar reflexes and otherwise normal.? Light touch is normal.? Vibratory sensation is normal. Normal rapidly alternating movements.? Mild left upper and left lower extremity dysmetria and ataxia.? ASSESSMENT: 52-year-old man who had a left cerebellar hemispheric ischemic stroke on December 12 complicated by localized edema and mass effect on the fourth ventricle, status post suboccipital craniectomy as well as a right frontal approach ventriculoperitoneal shunt revised to a right parietal approach ventriculoperitoneal shunt.? It seems etiology for the stroke was never determined.? Multiple CT head images were reviewed.? He has some residual ataxicdysarthria and has mild ataxia in the left upper extremity in the left lower extremity. PLAN: The updated MRI of his brain from January 18, 2023 is unremarkable for any acute or concerning findings and shows the expected subacute ischemic changes and postsurgical changes. No other recommendations at this time. Code(s): I63.9 - Cerebral infarction, unspecified Status: Acute Documented By: Pilo Nieto DO 01/18/231706 Signed By: <Electronically signed by Pilo Nieto DO> 01/18/231709 [facility] Work Phone: 1(304) 360-523908-09-2023 Progress note Author Srinivas Patricia [facility] January 17, 2023 4:18pm Note Date/Time January 17, 2023 4:1 8pm [facility] [address] [place] [address] Physiatry(Rehab) Progress Note Signed Patient: Taras Hayward MR#: [id number] : 1970 Acct:[id number] Age/Sex: 52 / M Adm Date: 3 Loc: Room: 2Q6189-3 Type: ADM IN Attending Dr: Srinivas Patricia MD Copies to: ~ Date of Service: 01/17/2023 Subjective Subjective Narrative: Mr. Hayward is a 52 year old male presenting to inpatient rehab unit with functional impairments secondary to left cerebellar CVA. His past medical history is notable for obesity, hypertension, nephrolithiasis, gastric bypass surgery. Patient presented to [place] emergency department via EMS with complaints of dizziness, nausea and vomiting, vertigo, and headache. He stated the symptoms started suddenly when he was sitting in the chair after returning from work thatday. CTA head and neck demonstrated left vertebral artery occlusion near originwhich prompted a transfer to [facility] in [place]. MRI of the brain showed late acute infarct involving inferior portion of the left cerebellar hemisphere with mass effect on medulla and right midbrain shift. On 12/13/2022 patient became progressively lethargic. Repeat CT brain demonstrated worsening hydrocephalus with concern for increased intracranial pressure with progressive effacement of basal cisterns and possibly some early left-sided transtentorial herniation development. He underwent suboccipital decompressive craniotomy and C1 laminectomy with right frontal EVD placement. On 12/19/2022 the above EVD was removed and replaced on 12/25/2022 due to complaints of a headache with subsequent CT imaging demonstrating pseudocyst. On 12/30/2022 patient underwent a WINDOW GLASS CUTTER OFF shunt placement due to obstructive hydrocephalus and malignant edema, EVD removed at that time. She was recommended acute rehabilitation for strengthening. On admission patient is alert and oriented x3, answers questions appropriately. No significant neurological deficits noted on assessment. He feels slightly off balance and experiences occasional dizziness with movement/position changes and intermittent nausea, but it has improved dramatically over the past several days. He reports no change in vision, his speech is clear and fluent. He reports no cardiopulmonary complaints. Heart rate noted to be elevated in 100s on assessment. He does take carvedilol for hypertension and tachycardia. Prior to most recent hospitalization he was generally healthy and worked full- time at [employer]. Interval History: NSGY able to interrogate shunt, ok to proceed with MRI as ordered. [facility], in absence of worsening hydrocephaluson imaging, feel symptoms not coming from shunt problem. Patient feels well this morning. Did have episode of dry heaving when family arrived. Speech improved. Urinary retention +, home flomax resumed. Review of Systems Review of Systems All other systems reviewed & are negative unless noted below or in HPI Exam Physical Exam Vital Signs: Temp Pulse Resp BP Pulse Ox O2 Del Method 98.1 F 78 20 141/93 H 98 Room Air 01/17/23 05:00 01/17/23 05:00 01/17/23 05:00 01/17/23 05:00 01/17/23 05:00 01/17/23 07:30 Narrative: General: cooperative, comfortable HENLA Head: normal to inspection Eyes General: appearance normal, both eyes and all related structures Neck Neck: normal visual inspection, no lymphadenopathy Resp Effort & Inspection: normal respiratory effort Auscultation: clear to auscultation bilaterally Cardio Rate: regular rate Rhythm: regular rhythm Heart Sounds: S1 normal, S2 normal GI Inspection: normal to inspection Auscultation: normal bowel sounds Neuro Cranial Nerves: CN's II-XI intact bilaterally, dizzy with lateral gaze + nystagmus Cognition: normal cognition Speech: speech abnormal, dysarthric (improved 8/8 and 8/9) Motor: strength 5/5 throughout, grossly, ataxic Sensory Exam: no sensory deficits noted Plantar Reflexes: Downgoing Deep Tendon Reflexes DTR Comments: 1+ and symmetric Mood: normal affect Affect: normal affect Endurance fair Objective Labs 01/13/23 20:22 01/13/23 20:22 Labs: Laboratory Results - last 24 hr 01/15/23 07:36 Diazepam Confirmation <0.1 Nordiazepam <0.1 Diazepam & Nordiazepam <.2 L Medications and Allergies Allergies and Active Meds: Allergies No Known Allergies Allergy (Verified 01/09/23 09:32) Active Medications Generic Name Dose Route Start Last Admin Trade Name Freq PRN Reason Stop Dose Admin Acetaminophen 1,000 mg 01/11/23 09:00 01/17/23 15:07 Acetaminophen 500 Mg Tablet PO 01/11/24 08:59 Not Given TID LEANNA Al Hydrox/Mg Hydrox/Simethicone 30 ml 01/03/23 15:41 Mag Hydrox/Al Hydrox/Simeth 30 Ml Udc PO 01/03/24 15:40 Q4H PRN Indigestion Amitriptyline HCl 10 mg 01/03/23 22:00 01/10/23 20:43 Amitriptyline 10 Mg Tablet PO 01/03/24 21:59 10 mg QHS LEANNA Administration Apixaban 10 mg 01/11/23 21:00 01/17/23 09:55 Apixaban 5 Mg Tablet PO 01/18/23 09:01 10 mg BID LEANNA Administration Apixaban 5 mg 01/18/23 21:00 Apixaban 5 Mg Tablet PO 01/18/24 20:59 BID LEANNA Aspirin 81 mg 01/04/23 09:00 01/17/23 09:55 Aspirin 81 Mg Tablet. PO 01/04/24 08:59 81 mg QAM LEANNA Administration Atorvastatin Calcium 10 mg 01/03/23 22:00 01/16/23 21:15 Atorvastatin 10 Mg Tablet PO 01/03/24 21:59 10 mg QHS LEANNA Administration Bacitracin 1 applic 01/09/23 21:00 01/17/23 09:56 Bacitracin Oint 14 Gm Tube TOPICAL 01/09/24 20:59 Not Given BID LEANNA Bisacodyl 10 mg 01/03/23 15:41 Bisacodyl 10 Mg Supp.Rect VA 01/03/24 15:40 DAILY PRN Constipation Carvedilol 12.5 mg 01/05/23 09:15 01/17/23 09:55 Carvedilol 12.5 Mg Tablet PO 01/05/24 09:14 12.5 mg Q12HR LEANNA Administration Cyproheptadine HCl 4 mg 01/14/23 22:00 01/16/23 21:14 Cyproheptadine 4 Mg Tablet PO 01/14/24 21:59 4 mg QHS LEANNA Administration Diazepam 1 mg 01/14/23 13:51 01/14/23 15:25 Diazepam 2 Mg Tablet PO 07/13/23 20:59 1 mg BID PRN Administration severe dizziness Docusate Sodium 100 mg 01/03/23 15:41 01/15/23 05:31 Docusate 100 Mg Capsule PO 01/03/24 15:40 100 mg BID PRN Administration Constipation Docusate Sodium 283 mg 01/03/23 15:41 Docusate Enema 283 Mg/5 Ml Enema VA 01/03/24 15:40 DAILY PRN Constipation Lactulose 30 gm 01/03/23 15:41 Lactulose 20 Gm/30 Ml Udc PO 01/03/24 15:40 DAILY PRN Constipation Meclizine HCl 25 mg 01/11/23 13:48 01/14/23 02:26 Meclizine 25 Mg Tablet PO 01/11/24 13:47 25 mg Q8H PRN Administration Vertigo Melatonin 3 mg 01/03/23 22:00 01/16/23 21:14 Melatonin 3 Mg Tablet PO 01/03/24 21:59 3 mg HS LEANNA Administration Ondansetron HCl 4 mg 01/03/23 15:40 01/16/23 06:10 Ondansetron Odt 4 Mg Tab.Rapdis PO 01/03/24 15:39 4 mg Q6HR PRN Administration Nausea And Vomiting Oxycodone HCl 5 mg 01/10/23 12:06 01/15/23 23:51 Oxycodone Ir 5 Mg Tablet PO 5 mg TID PRN Administration Pain Scale 7 - 10 Polyethylene Glycol 17 gm 01/13/23 21:00 01/17/23 09:59 Polyethylene Glycol 3350 17 Gm Powd.Pack PO 01/13/24 20:59 Not Given BID LEANNA Senna/Docusate Sodium 2 tab 01/03/23 21:00 01/17/23 09:55 Sennosides/Docusate 8.6-50mg 1 Tab Tablet PO 01/03/24 20:59 2 tab BID LEANNA Administration Sennosides 2 tab 01/04/23 12:00 01/15/23 05:31 Sennosides 8.6 Mg Tablet PO 01/04/24 11:59 2 tab DAILY@12 PRN Administration If no BM in 2 days Sodium Chloride 0 ml 01/03/23 15:41 Sodium Chloride 0.9 % 10 Ml Syringe IV-PUSH 01/03/24 15:40 PRN PRN Flush Tamsulosin HCl 0.4 mg 01/17/23 11:50 01/17/23 13:01 Tamsulosin 0.4 Mg Cap.Er.24h PO 01/17/24 11:49 0.4 mg HS LEANNA Administration Trimethoprim/Sulfamethoxazole 1 tab 01/17/23 09:05 01/17/23 10:01 Sulfamethoxazole/Tmp 800-160mg 1 Tab Tablet PO 01/20/23 09:04 1 tab BID LEANNA Administration Venlafaxine HCl 37.5 mg 01/11/23 09:00 01/17/23 09:55 Venlafaxine Er 37.5 Mg Cap.Er.24h PO 01/11/24 08:59 37.5 mg DAILY LEANNA Administration Assessment/Plan Assessment/Plan (1) S/P WINDOW GLASS CUTTER OFF shunt: Code(s): Z98.2 - Presence of cerebrospinal fluid drainage device Status: Acute (2) Hydrocephalus: Code(s): G91.9 - Hydrocephalus, unspecified Status: Acute (3) Cerebellar infarct: Code(s): I63.9 - Cerebral infarction, unspecified Status: Acute (4) Hypertension: Code(s): I10 - Essential (primary) hypertension Status: Acute (5) Obesity (BMI 35.0-39.9 without comorbidity): Code(s): E66.9 - Obesity, unspecified Status: Acute (6) Tachycardia: Code(s): R00.0 - Tachycardia, unspecified Status: Acute (7) Impaired mobility and activities of daily living: Code(s): Z74.09 - Other reduced mobility; Z78.9 - Other specified health status Status: Acute (8) DVT, popliteal, acute: Code(s): I82.439 - Acute embolism and thrombosis of unspecified popliteal vein Status: Acute Plan 52-year-old male presenting to acute inpatient rehab with functional impairmentssecondary to left cerebellar CVA s/p WINDOW GLASS CUTTER OFF shunt placement due to development of hydrocephalus. . He does complain of continued intermittent headaches, nausea/vomiting, dizziness/lightheadedness. Therapy limited by dizziness/nausea this afternoon. This morning worked well with [employer], minimal dysarthria, improved vocal quality. I reviewed the case with [facility], they agree with current plan of care, prior CTs reviewed, they donot feel shunt issue, did inquire about fever or s/s infection around skull base, neither present. Plan is to proceed with MRI, our NSGY team agreed to eval post-MRI. If benign imaging continue current plan of care, Neurology following. Can replace kramer if elevated PVRs throughout day shift. Patient education Pressure ulcer prophylaxis; encourage mobilization, frequent postural changes, pressure-relief techniques DVT prophylaxis: Anticoagulated with Eliquis. Encourage deep breathing exercise incentive spirometry. Monitor bladder. Toileting schedule. Continue current bladder management, with scans as needed and CIC if needed. Start bowel care program every day to obtain continence, prevent ileus. Maintain fall precautions Gait and balance retraining Functional training and self-care and home management, including activities of daily living and instrumental activities of daily living Provision of the necessary gait aids and functional adaptive equipment to enhance the patient's a functional spiritism Ensure adequate nutrition and hydration Sleep: No issues Pain: Continue current regimen Discharge planning:. Home 1-2 weeks. I spent greater than 35 minutes for services, including [id number] encounter with the patient, discussion of the case, plan of care, and exam; and [id number] activities, such as reviewing pertinent learning consultant documentation, recent therapy notes, laboratory and radiology studies, and discussion of case with care team including physician, nursing, skilled nursing case manager, and therapists. More than 50 % of time was spent on patient/family counseling or coordination ofcare. Plan: 3 Documented By: Srinivas Patricia MD 01/17/231611 Signed By: <Electronically signed by Srinivas Patricia MD> 01/17/231617 [facility] Work Phone: 1([phone]) 334-553908-08-2023 Progress note Author Pilo Nieto [facility] January 16, 2023 6:10pm Note Date/Time January 16, 2023 6:1 0pm [facility] [address] [place] [address] Neurology Progress Note Signed Patient: Taras Hayward MR#: [id number] : 1970 Acct:[id number] Age/Sex: 52 / M Adm Date: 3 Loc: Room: [address] [place] [address] Type: ADM IN Attending Dr: Srinivas Patricia MD Copies to: ~ Date of Service: 01/16/2023 Exam Physical Exam Vital Signs: Temp Pulse Resp BP Pulse Ox O2 Del Method 98.0 F 77 20 140/88 98 Room Air 01/16/23 15:08 01/16/23 15:08 01/16/23 06:00 01/16/23 15:08 01/16/23 15:08 01/16/23 15:08 Objective Vital Signs Vital Signs: Vital Signs - 24 hr 01/15/23 21:24 01/15/23 23:30 01/16/23 06:00 Temperature 98.3 F Pulse Rate 78 Respiratory Rate 20 Blood Pressure 151/99 H 123/78 02 Sat by Pulse Oximetry 96 Oxygen Delivery Method Room Air Room Air 01/16/23 08:10 01/16/23 07:30 01/16/23 15:08 Temperature 98.0 F Pulse Rate 80 77 Respiratory Rate Blood Pressure 134/96 140/88 02 Sat by Pulse Oximetry 96 98 Oxygen Delivery Method Room Air Room Air Room Air Labs 01/13/23 20:22 01/13/23 20:22 Therapy Recommendations Therapy Recommendations: PT Recommendations PT Recommended Discharge Home with Outpatient Location ST Recommendations Level of Supervision Independent Self Feeding Liquid Consistency Thin Liquids Recommendation Solid Consistency Regular Solids Recommendations Meat Consistency Whole Meats Recommendations Medication Administration Give Pills with Water Dysphagia Swallow Precautions/ Sitting Upright (90 deg) Strategies ST Recommended Services at Speech Therapy Discharge Assessment/Plan (1) Cerebellar infarct: Plan: CONSULT REASON: cerebellar infarct SUBJECTIVE: His partner has noticed that sometimes his dysarthria tends to seem worse than it was several days ago. It might fluctuate along with his level of alertness. No new deficits to report. Nothing to add to review of systems. EXAMINATION: Well-kempt. No distress. Normal spinal curvature. Limbs seem well-perfused. No significant edema. Normal work of breathing. Visualized skin is generally intact and without lesions. Affect normal. Patient is alert and generally oriented. Attention normal. Speech is mildly ataxic dysarthria, overall fluent. Pupils are equal and reactive. Ocular motility is full. No nystagmus. Facial sensation is normal. Hearing is normal. Facial strength is normal. Tongue is midline. Muscle bulk, tone, and strength are generally normal. No tremors. Reflexes +3/4 patellar reflexes and otherwise normal. Light touch is normal. Vibratory sensation is normal. Normal rapidly alternating movements. Mild left upper and left lower extremity dysmetria and ataxia. ASSESSMENT: 52-year-old man who had a left cerebellar hemispheric ischemic stroke on December complicated by localized edema and mass effect on the fourth ventricle, status post suboccipital craniectomy as well as a right frontal approach ventriculoperitoneal shunt revised to a right parietal approach ventriculoperitoneal shunt. It seems etiology for the stroke was never determined. Multiple CT head images were reviewed. He has some residual ataxicdysarthria and has mild ataxia in the left upper extremity in the left lower extremity. PLAN: His cerebellar dysarthria continues to fluctuate, causing him and his partner concern for new lesion, especially in the setting of no one ever coming up with a definitive reason the stroke happened in the first place. Though my suspicionfor a new lesion is low, and instead I suspect he may have fluctuating recrudescence of symptoms that correlate with his level of alertness, I recognize their concern and am ordering MRI brain without contrast. Code(s): I63.9 - Cerebral infarction, unspecified Status: Acute Documented By: Pilo Nieto DO 01/16/23 4893 Signed By: <Electronically signed by Pilo Nieto DO> 01/16/23 181 [facility] Work Phone: [phone]) 785-975608-08-2023 Progress note Author Srinivas Patricia [facility] January 16, 2023 2:58pm Note Date/Time January 16, 2023 2:5 9pm [facility] [address] [place] [address] Physiatry(Rehab) Progress Note Signed Patient: Taras Hayward MR#: [id number] : 1970 Acct:[id number] Age/Sex: 52 / M Adm Date: 3 Loc: Room: 4J9783-3 Type: ADM IN Attending Dr: Srinivas Patricia MD Copies to: ~ Date of Service: 01/16/2023 Subjective Subjective Narrative: Mr. Hayward is a 52 year old male presenting to inpatient rehab unit with functional impairments secondary to left cerebellar CVA. His past medical history is notable for obesity, hypertension, nephrolithiasis, gastric bypass surgery. Patient presented to [place] emergency department via EMS with complaints of dizziness, nausea and vomiting, vertigo, and headache. He stated the symptoms started suddenly when he was sitting in the chair after returning from work thatday. CTA head and neck demonstrated left vertebral artery occlusion near originwhich prompted a transfer to [facility] in [place]. MRI of the brain showed late acute infarct involving inferior portion of the left cerebellar hemisphere with mass effect on medulla and right midbrain shift. On 12/13/2022 patient became progressively lethargic. Repeat CT brain demonstrated worsening hydrocephalus with concern for increased intracranial pressure with progressive effacement of basal cisterns and possibly some early left-sided transtentorial herniation development. He underwent suboccipital decompressive craniotomy and C1 laminectomy with right frontal EVD placement. On 12/19/2022 the above EVD was removed and replaced on 12/25/2022 due to complaints of a headache with subsequent CT imaging demonstrating pseudocyst. On 12/30/2022 patient underwent a WINDOW GLASS CUTTER OFF shunt placement due to obstructive hydrocephalus and malignant edema, EVD removed at that time. She was recommended acute rehabilitation for strengthening. On admission patient is alert and oriented x3, answers questions appropriately. No significant neurological deficits noted on assessment. He feels slightly off balance and experiences occasional dizziness with movement/position changes and intermittent nausea, but it has improved dramatically over the past several days. He reports no change in vision, his speech is clear and fluent. He reports no cardiopulmonary complaints. Heart rate noted to be elevated in 100s on assessment. He does take carvedilol for hypertension and tachycardia. Prior to most recent hospitalization he was generally healthy and worked full- time at [employer]. Interval History: Seen and examined at bedside. Feels well at present. Eating breakfast himself. Reviewed at team meeting, all therapy reported improved tolerance and function. Ambulatory 400' today. Partner, Carlos, concerned about dysarthric speech when he's fatigued, and says patient has sent a few confusing text messages. Asking about role of MRI/MRA. Review of Systems Review of Systems All other systems reviewed & are negative unless noted below or in HPI Exam Physical Exam Vital Signs: Temp Pulse Resp BP Pulse Ox O2 Del Method 98.3 F 80 20 134/96 96 Room Air 01/16/23 06:00 01/16/23 08:10 01/16/23 06:00 01/16/23 08:10 01/16/23 08:10 01/16/23 08:10 Narrative: General: cooperative, comfortable HENMT Head: normal to inspection Eyes General: appearance normal, both eyes and all related structures Neck Neck: normal visual inspection, no lymphadenopathy Resp Effort & Inspection: normal respiratory effort Auscultation: clear to auscultation bilaterally Cardio Rate: regular rate Rhythm: regular rhythm Heart Sounds: S1 normal, S2 normal GI Inspection: normal to inspection Auscultation: normal bowel sounds Neuro Cranial Nerves: CN's II-XI intact bilaterally, dizzy with lateral gaze + nystagmus Cognition: normal cognition Speech: speech abnormal, dysarthric Motor: strength 5/5 throughout, grossly, ataxic Sensory Exam: no sensory deficits noted Plantar Reflexes: Downgoing Deep Tendon Reflexes DTR Comments: 1+ and symmetric Mood: normal affect Affect: normal affect Endurance fair Objective Labs 01/13/23 20:22 01/13/23 20:22 Medications and Allergies Allergies and Active Meds: Allergies No Known Allergies Allergy (Verified 01/09/23 09:32) Active Medications Generic Name Dose Route Start Last Admin Trade Name Freq PRN Reason Stop Dose Admin Acetaminophen 1,000 mg 01/11/23 09:00 01/16/23 08:12 Acetaminophen 500 Mg Tablet PO 01/11/24 08:59 1,000 mg TID LEANNA Administration Al Hydrox/Mg Hydrox/Simethicone 30 ml 01/03/23 15:41 Mag Hydrox/Al Hydrox/Simeth 30 Ml Udc PO 01/03/24 15:40 Q4H PRN Indigestion Amitriptyline HCl 10 mg 01/03/23 22:00 01/10/23 20:43 Amitriptyline 10 Mg Tablet PO 01/03/24 21:59 10 mg QHS LEANNA Administration Apixaban 10 mg 01/11/23 21:00 01/16/23 08:12 Apixaban 5 Mg Tablet PO 01/18/23 09:01 10 mg BID LEANNA Administration Apixaban 5 mg 01/18/23 21:00 Apixaban 5 Mg Tablet PO 01/18/24 20:59 BID LEANNA Aspirin 81 mg 01/04/23 09:00 01/16/23 08:12 Aspirin 81 Mg Tablet. PO 01/04/24 08:59 81 mg QAM LEANNA Administration Atorvastatin Calcium 10 mg 01/03/23 22:00 01/15/23 21:26 Atorvastatin 10 Mg Tablet PO 01/03/24 21:59 10 mg QHS LEANNA Administration Bacitracin 1 applic 01/09/23 21:00 01/16/23 08:13 Bacitracin Oint 14 Gm Tube TOPICAL 01/09/24 20:59 1 applic BID LEANNA Administration Bisacodyl 10 mg 01/03/23 15:41 Bisacodyl 10 Mg Supp.Rect VA 01/03/24 15:40 DAILY PRN Constipation Carvedilol 12.5 mg 01/05/23 09:15 01/16/23 08:12 Carvedilol 12.5 Mg Tablet PO 01/05/24 09:14 12.5 mg Q12HR LEANNA Administration Cyproheptadine HCl 4 mg 01/14/23 22:00 01/15/23 21:25 Cyproheptadine 4 Mg Tablet PO 01/14/24 21:59 4 mg QHS LEANNA Administration Diazepam 1 mg 01/14/23 13:51 01/14/23 15:25 Diazepam 2 Mg Tablet PO 07/13/23 20:59 1 mg BID PRN Administration severe dizziness Docusate Sodium 100 mg 01/03/23 15:41 01/15/23 05:31 Docusate 100 Mg Capsule PO 01/03/24 15:40 100 mg BID PRN Administration Constipation Docusate Sodium 283 mg 01/03/23 15:41 Docusate Enema 283 Mg/5 Ml Enema VA 01/03/24 15:40 DAILY PRN Constipation Lactulose 30 gm 01/03/23 15:41 Lactulose 20 Gm/30 Ml Udc PO 01/03/24 15:40 DAILY PRN Constipation Meclizine HCl 25 mg 01/11/23 13:48 01/14/23 02:26 Meclizine 25 Mg Tablet PO 01/11/24 13:47 25 mg Q8H PRN Administration Vertigo Melatonin 3 mg 01/03/23 22:00 01/15/23 21:26 Melatonin 3 Mg Tablet PO 01/03/24 21:59 3 mg HS LEANNA Administration Ondansetron HCl 4 mg 01/03/23 15:40 01/16/23 06:10 Ondansetron Odt 4 Mg Tab.Rapdis PO 01/03/24 15:39 4 mg Q6HR PRN Administration Nausea And Vomiting Oxycodone HCl 5 mg 01/10/23 12:06 01/15/23 23:51 Oxycodone Ir 5 Mg Tablet PO 5 mg TID PRN Administration Pain Scale 7 - 10 Polyethylene Glycol 17 gm 01/13/23 21:00 01/16/23 08:12 Polyethylene Glycol 3350 17 Gm Powd.Pack PO 01/13/24 20:59 Not Given BID LEANNA Senna/Docusate Sodium 2 tab 01/03/23 21:00 01/16/23 08:12 Sennosides/Docusate 8.6-50mg 1 Tab Tablet PO 01/03/24 20:59 2 tab BID LEANNA Administration Sennosides 2 tab 01/04/23 12:00 01/15/23 05:31 Sennosides 8.6 Mg Tablet PO 01/04/24 11:59 2 tab DAILY@12 PRN Administration If no BM in 2 days Sodium Chloride 0 ml 01/03/23 15:41 Sodium Chloride 0.9 % 10 Ml Syringe IV-PUSH 01/03/24 15:40 PRN PRN Flush Trimethoprim/Sulfamethoxazole 1 tab 01/11/23 21:00 01/16/23 08:12 Sulfamethoxazole/Tmp 800-160mg 1 Tab Tablet PO 01/16/23 20:59 1 tab BID LEANNA Administration Venlafaxine HCl 37.5 mg 01/11/23 09:00 01/16/23 08:13 Venlafaxine Er 37.5 Mg Cap.Er.24h PO 01/11/24 08:59 37.5 mg DAILY LEANNA Administration Assessment/Plan Assessment/Plan (1) S/P WINDOW GLASS CUTTER OFF shunt: Code(s): Z98.2 - Presence of cerebrospinal fluid drainage device Status: Acute (2) Hydrocephalus: Code(s): G91.9 - Hydrocephalus, unspecified Status: Acute (3) Cerebellar infarct: Code(s): I63.9 - Cerebral infarction, unspecified Status: Acute (4) Hypertension: Code(s): I10 - Essential (primary) hypertension Status: Acute (5) Obesity (BMI 35.0-39.9 without comorbidity): Code(s): E66.9 - Obesity, unspecified Status: Acute (6) Tachycardia: Code(s): R00.0 - Tachycardia, unspecified Status: Acute (7) Impaired mobility and activities of daily living: Code(s): Z74.09 - Other reduced mobility; Z78.9 - Other specified health status Status: Acute (8) DVT, popliteal, acute: Code(s): I82.439 - Acute embolism and thrombosis of unspecified popliteal vein Status: Acute Plan 52-year-old male presenting to acute inpatient rehab with functional impairmentssecondary to left cerebellar CVA s/p WINDOW GLASS CUTTER OFF shunt placement due to development of hydrocephalus. . He does complain of continued intermittent headaches, nausea/vomiting, dizziness/lightheadedness. * Symptoms continue to improve, ambulatory 400' today. This afternoon had dry h eaving with position changes. * Continue Eliquis as ordered. * Will discuss with Neurology, role for additional imaging. I still think we can hold off on MRI/MRA for now given his improvement over last few days, but I appreciate his partners concern regarding speech fluency issue at times. He's had 3 recent head CTs, one was scheduled for follow up from [place], one after a fall and one after starting anticoagulation. None demonstrate acute issue s/p shunt and hydrocephalus. * Plan for re-cert with insurance. Patient education Pressure ulcer prophylaxis; encourage mobilization, frequent postural changes, pressure-relief techniques DVT prophylaxis: Anticoagulated with Eliquis. Encourage deep breathing exercise incentive spirometry. Monitor bladder. Toileting schedule. Continue current bladder management, with scans as needed and CIC if needed. Start bowel care program every day to obtain continence, prevent ileus. Maintain fall precautions Gait and balance retraining Functional training and self-care and home management, including activities of daily living and instrumental activities of daily living Provision of the necessary gait aids and functional adaptive equipment to enhance the patient's a functional spiritism Ensure adequate nutrition and hydration Sleep: No issues Pain: Continue current regimen Discharge planning:. Recovery has been complicated by UTI and DVT. In a week or so, pending insurance recert. I spent greater than 25 minutes for services, including [id number] encounter with the patient, discussion of the case, plan of care, and exam; and [id number] activities, such as reviewing pertinent learning consultant documentation, recent therapy notes, laboratory and radiology studies, and discussion of case with care team including physician, nursing, skilled nursing case manager, and therapists. More than 50 % of time was spent on patient/family counseling or coordination ofcare. Documented By: Srinivas Patricia MD 01/16/231453 Signed By: <Electronically signed by Srinivas Patricia MD> 01/16/23 1458 [facility] Work Phone: 1(465) 728-547408-07-2023 Progress note Author Pilo Nieto [facility] January 15, 2023 5:03pm Note Date/Time January 15, 2023 8:0 5am [facility] [address] [place] [address] Neurology Progress Note Signed Patient: Taras Hayward MR#: [id number] : 1970 Acct:[id number] Age/Sex: 52 / M Adm Date: 3 Loc: Room: [address] [place] [address] Type: ADM IN Attending Dr: Srinivas Patricia MD Copies to: ~ Date of Service: 01/15/2023 Review of Systems Review of Systems All other systems reviewed & are negative unless noted below or in HPI Exam Physical Exam Vital Signs: Temp Pulse Resp BP Pulse Ox O2 Del Method 97.9 F 65 18 119/74 95 Room Air 01/15/23 05:00 01/15/23 05:00 01/15/23 05:00 01/15/23 05:00 01/15/23 05:00 01/15/23 05:00 Objective Vital Signs Vital Signs: Vital Signs - 24 hr 01/14/23 17:33 01/14/23 21:35 01/14/23 23:30 Temperature 98.0 F Pulse Rate 77 Respiratory Rate 18 Blood Pressure 138/91 124/77 02 Sat by Pulse Oximetry 94 L Oxygen Delivery Method Room Air Room Air 01/15/23 05:00 Temperature 97.9 F Pulse Rate 65 Respiratory Rate 18 Blood Pressure 119/74 02 Sat by Pulse Oximetry 95 Oxygen Delivery Method Room Air Labs 01/13/23 20:22 01/13/23 20:22 Therapy Recommendations Therapy Recommendations: PT Recommendations PT Recommended Discharge Home with Outpatient Location ST Recommendations Level of Supervision Independent Self Feeding Liquid Consistency Thin Liquids Recommendation Solid Consistency Regular Solids Recommendations Meat Consistency Whole Meats Recommendations Medication Administration Give Pills with Water Dysphagia Swallow Precautions/ Sitting Upright (90 deg) Strategies ST Recommended Services at Speech Therapy Discharge Assessment/Plan (1) Cerebellar infarct: Plan: CONSULT REASON: cerebellar infarct SUBJECTIVE: Patient reports some mild progress. He reiterates his story and how he got to inpatient rehab. He denies the dizziness and nausea previously reported. He was able to complete therapy. EXAMINATION: Well-kempt. No distress. Normal spinal curvature. Limbs seem well-perfused. No significant edema. Normal work of breathing. Visualized skin is generally intact and without lesions. Affect normal. Patient is alert and generally oriented. Attention normal. Speech is mildly ataxic dysarthria, overall fluent. Pupils are equal and reactive. Ocular motility is full. No nystagmus. Facial sensation is normal. Hearing is normal. Facial strength is normal. Tongue is midline. Muscle bulk, tone, and strength are generally normal. No tremors. Reflexes +3/4 patellar reflexes and otherwise normal. Light touch is normal. Vibratory sensation is normal. Normal rapidly alternating movements. Mild left upper and left lower extremity dysmetria and ataxia. ASSESSMENT: 52-year-old man who had a left cerebellar hemispheric ischemic stroke on December 12 complicated by localized edema and mass effect on the fourth ventricle, status post suboccipital craniectomy as well as a right frontal approach ventriculoperitoneal shunt revised to a right parietal approach ventriculoperitoneal shunt. It seems etiology for the stroke was never determined. MultipleCT head images were reviewed. He has some residual ataxic dysarthria and has mild ataxia in the left upper extremity in the left lower extremity. PLAN: I expect the ataxia to gradually improve. I expect any residual dizziness to also gradually improve. Continue any as needed medications. No new recommendations. Code(s): I63.9 - Cerebral infarction, unspecified Status: Acute Documented By: Pilo Nieto DO 01/15/23 0803 Signed By: <Electronically signed by Pilo Nieto DO> 01/15/23 1702 [facility] Work Phone: 1(100) [phone] Progress note Author Srinivas Patricia [facility] January 15, 2023 1:09pm Note Date/Time January 15, 2023 1:0 9pm [facility] [address] [place] [address] Physiatry(Rehab) Progress Note Signed Patient: Taras Hayward MR#: [id number] : 1970 Acct:[id number] Age/Sex: 52 / M Adm Date: 3 Loc: Room: [address] [place] [address] Type: ADM IN Attending Dr: Srinivas Patricia MD Copies to: ~ Date of Service: 01/15/2023 Subjective Subjective Narrative: Mr. Hayward is a 52 year old male presenting to inpatient rehab unit with functional impairments secondary to left cerebellar CVA. His past medical history is notable for obesity, hypertension, nephrolithiasis, gastric bypass surgery. Patient presented to [place] emergency department via EMS with complaints of dizziness, nausea and vomiting, vertigo, and headache. He stated the symptoms started suddenly when he was sitting in the chair after returning from work thatday. CTA head and neck demonstrated left vertebral artery occlusion near originwhich prompted a transfer to [facility] in [place]. MRI of the brain showed late acute infarct involving inferior portion of the left cerebellar hemisphere with mass effect on medulla and right midbrain shift. On 12/13/2022 patient became progressively lethargic. Repeat CT brain demonstrated worsening hydrocephalus with concern for increased intracranial pressure with progressive effacement of basal cisterns and possibly some early left-sided transtentorial herniation development. He underwent suboccipital decompressive craniotomy and C1 laminectomy with right frontal EVD placement. On 12/19/2022 the above EVD was removed and replaced on 12/25/2022 due to complaints of a headache with subsequent CT imaging demonstrating pseudocyst. On 12/30/2022 patient underwent a WINDOW GLASS CUTTER OFF shunt placement due to obstructive hydrocephalus and malignant edema, EVD removed at that time. She was recommended acute rehabilitation for strengthening. On admission patient is alert and oriented x3, answers questions appropriately. No significant neurological deficits noted on assessment. He feels slightly off balance and experiences occasional dizziness with movement/position changes and intermittent nausea, but it has improved dramatically over the past several days. He reports no change in vision, his speech is clear and fluent. He reports no cardiopulmonary complaints. Heart rate noted to be elevated in 100s on assessment. He does take carvedilol for hypertension and tachycardia. Prior to most recent hospitalization he was generally healthy and worked full- time at [employer]. Interval History: Reports symptoms are improved today. Reports symptoms are improved today. He was able to eat a few meals yesterday and did have breakfast this morning. She is sitting upright in bed in no acute distress. He looks brighter from a mood standpoint. He was able to ambulate 30 feet in the room today, able to self-correct the balance issues. His vitals are stable. He denies any headache. Review of Systems Review of Systems All other systems reviewed & are negative unless noted below or in HPI Exam Physical Exam Vital Signs: Temp Pulse Resp BP Pulse Ox O2 Del Method 97.9 F 82 18 130/84 95 Room Air 01/15/23 05:00 01/15/23 08:44 01/15/23 05:00 01/15/23 08:44 01/15/23 08:44 01/15/23 08:44 Narrative: General: cooperative, comfortable HENLA Head: normal to inspection Eyes General: appearance normal, both eyes and all related structures Neck Neck: normal visual inspection, no lymphadenopathy Resp Effort & Inspection: normal respiratory effort Auscultation: clear to auscultation bilaterally Cardio Rate: regular rate Rhythm: regular rhythm Heart Sounds: S1 normal, S2 normal GI Inspection: normal to inspection Auscultation: normal bowel sounds Neuro Cranial Nerves: CN's II-XI intact bilaterally, dizzy with lateral gaze + nystagmus Cognition: normal cognition Speech: speech abnormal, dysarthric Motor: strength 5/5 throughout, grossly, ataxic Sensory Exam: no sensory deficits noted Plantar Reflexes: Downgoing Deep Tendon Reflexes DTR Comments: 1+ and symmetric Mood: normal affect Affect: normal affect Endurance fair Objective Labs 01/13/23 20:22 01/13/23 20:22 Medications and Allergies Allergies and Active Meds: Allergies No Known Allergies Allergy (Verified 01/09/23 09:32) Active Medications Generic Name Dose Route Start Last Admin Trade Name Freq PRN Reason Stop Dose Admin Acetaminophen 1,000 mg 01/11/23 09:00 01/15/23 08:47 Acetaminophen 500 Mg Tablet PO 01/11/24 08:59 1,000 mg TID LEANNA Administration Al Hydrox/Mg Hydrox/Simethicone 30 ml 01/03/23 15:41 Mag Hydrox/Al Hydrox/Simeth 30 Ml Udc PO 01/03/24 15:40 Q4H PRN Indigestion Amitriptyline HCl 10 mg 01/03/23 22:00 01/10/23 20:43 Amitriptyline 10 Mg Tablet PO 01/03/24 21:59 10 mg QHS LEANNA Administration Apixaban 10 mg 01/11/23 21:00 01/15/23 08:46 Apixaban 5 Mg Tablet PO 01/18/23 09:01 10 mg BID LEANNA Administration Apixaban 5 mg 01/18/23 21:00 Apixaban 5 Mg Tablet PO 01/18/24 20:59 BID LEANNA Aspirin 81 mg 01/04/23 09:00 01/15/23 08:47 Aspirin 81 Mg Tablet. PO 01/04/24 08:59 81 mg QAM LEANNA Administration Atorvastatin Calcium 10 mg 01/03/23 22:00 01/14/23 21:40 Atorvastatin 10 Mg Tablet PO 01/03/24 21:59 10 mg QHS LEANNA Administration Bacitracin 1 applic 01/09/23 21:00 01/15/23 08:46 Bacitracin Oint 14 Gm Tube TOPICAL 01/09/24 20:59 1 applic BID LEANNA Administration Bisacodyl 10 mg 01/03/23 15:41 Bisacodyl 10 Mg Supp.Rect VA 01/03/24 15:40 DAILY PRN Constipation Carvedilol 12.5 mg 01/05/23 09:15 01/15/23 08:46 Carvedilol 12.5 Mg Tablet PO 01/05/24 09:14 12.5 mg Q12HR LEANNA Administration Cyproheptadine HCl 4 mg 01/14/23 22:00 01/14/23 21:40 Cyproheptadine 4 Mg Tablet PO 01/14/24 21:59 4 mg QHS LEANNA Administration Diazepam 1 mg 01/14/23 13:51 01/14/23 15:25 Diazepam 2 Mg Tablet PO 07/13/23 20:59 1 mg BID PRN Administration severe dizziness Docusate Sodium 100 mg 01/03/23 15:41 01/15/23 05:31 Docusate 100 Mg Capsule PO 01/03/24 15:40 100 mg BID PRN Administration Constipation Docusate Sodium 283 mg 01/03/23 15:41 Docusate Enema 283 Mg/5 Ml Enema VA 01/03/24 15:40 DAILY PRN Constipation Lactulose 30 gm 01/03/23 15:41 Lactulose 20 Gm/30 Ml Udc PO 01/03/24 15:40 DAILY PRN Constipation Meclizine HCl 25 mg 01/11/23 13:48 01/14/23 02:26 Meclizine 25 Mg Tablet PO 01/11/24 13:47 25 mg Q8H PRN Administration Vertigo Melatonin 3 mg 01/03/23 22:00 01/14/23 21:40 Melatonin 3 Mg Tablet PO 01/03/24 21:59 3 mg HS LEANNA Administration Ondansetron HCl 4 mg 01/03/23 15:40 01/15/23 08:47 Ondansetron Odt 4 Mg Tab.Rapdis PO 01/03/24 15:39 4 mg Q6HR PRN Administration Nausea And Vomiting Oxycodone HCl 5 mg 01/10/23 12:06 01/13/23 11:33 Oxycodone Ir 5 Mg Tablet PO 5 mg TID PRN Administration Pain Scale 7 - 10 Polyethylene Glycol 17 gm 01/13/23 21:00 01/15/23 08:53 Polyethylene Glycol 3350 17 Gm Powd.Pack PO 01/13/24 20:59 Not Given BID LEANNA Senna/Docusate Sodium 2 tab 01/03/23 21:00 01/15/23 08:46 Sennosides/Docusate 8.6-50mg 1 Tab Tablet PO 01/03/24 20:59 2 tab BID LEANNA Administration Sennosides 2 tab 01/04/23 12:00 01/15/23 05:31 Sennosides 8.6 Mg Tablet PO 01/04/24 11:59 2 tab DAILY@12 PRN Administration If no BM in 2 days Sodium Chloride 0 ml 01/03/23 15:41 Sodium Chloride 0.9 % 10 Ml Syringe IV-PUSH 01/03/24 15:40 PRN PRN Flush Trimethoprim/Sulfamethoxazole 1 tab 01/11/23 21:00 01/15/23 08:45 Sulfamethoxazole/Tmp 800-160mg 1 Tab Tablet PO 01/16/23 20:59 1 tab BID LEANNA Administration Venlafaxine HCl 37.5 mg 01/11/23 09:00 01/15/23 08:47 Venlafaxine Er 37.5 Mg Cap.Er.24h PO 01/11/24 08:59 37.5 mg DAILY LEANNA Administration Assessment/Plan Assessment/Plan (1) S/P WINDOW GLASS CUTTER OFF shunt: Code(s): Z98.2 - Presence of cerebrospinal fluid drainage device Status: Acute (2) Hydrocephalus: Code(s): G91.9 - Hydrocephalus, unspecified Status: Acute (3) Cerebellar infarct: Code(s): I63.9 - Cerebral infarction, unspecified Status: Acute (4) Hypertension: Code(s): I10 - Essential (primary) hypertension Status: Acute (5) Obesity (BMI 35.0-39.9 without comorbidity): Code(s): E66.9 - Obesity, unspecified Status: Acute (6) Tachycardia: Code(s): R00.0 - Tachycardia, unspecified Status: Acute (7) Impaired mobility and activities of daily living: Code(s): Z74.09 - Other reduced mobility; Z78.9 - Other specified health status Status: Acute (8) DVT, popliteal, acute: Code(s): I82.439 - Acute embolism and thrombosis of unspecified popliteal vein Status: Acute Plan 52-year-old male presenting to acute inpatient rehab with functional impairmentssecondary to left cerebellar CVA s/p WINDOW GLASS CUTTER OFF shunt placement due to development of hydrocephalus. . He does complain of continued intermittent headaches, nausea/vomiting, dizziness/lightheadedness. * Symptoms are improved today from the weekend. Appreciate neurology recommendations and medication adjustments. * No focal neurologic changes appreciated, moves extremities antigravity, subtle dysarthria but intelligible. He denies any nausea today, denies headache. Tolerated therapy. * Complete antibiotics for UTI. * Continue Eliquis as ordered. * Think we can hold off on MRI/MRA for now unless he declines, but defer to Neurology. He's had 3 recent head CTs, one was scheduled for follow up from [place], and one after starting anticoagulation. None demonstrate acute issue s/p shunt and hydrocephalus. Patient education Pressure ulcer prophylaxis; encourage mobilization, frequent postural changes, pressure-relief techniques DVT prophylaxis: Anticoagulated with Eliquis. Encourage deep breathing exercise incentive spirometry. Monitor bladder. Toileting schedule. Continue current bladder management, with scans as needed and CIC if needed. Start bowel care program every day to obtain continence, prevent ileus. Maintain fall precautions Gait and balance retraining Functional training and self-care and home management, including activities of daily living and instrumental activities of daily living Provision of the necessary gait aids and functional adaptive equipment to enhance the patient's a functional spiritism Ensure adequate nutrition and hydration Sleep: No issues Pain: Continue current regimen Discharge planning:. Recovery has been complicated by UTI and DVT. In a week or so, pending insurance recert. I spent greater than 25 minutes for services, including [id number] encounter with the patient, discussion of the case, plan of care, and exam; and [id number] activities, such as reviewing pertinent learning consultant documentation, recent therapy notes, laboratory and radiology studies, and discussion of case with care team including physician, nursing, skilled nursing case manager, and therapists. More than 50 % of time was spent on patient/family counseling or coordination ofcare. Documented By: Srinivas Patricia MD 01/15/23 1304 Signed By: <Electronically signed by Srinivas Patricia MD> 01/15/23 1309 [facility] Work Phone: 1(134) 460-504508-06-2023 Consult note Author Megha Lacy [facility] January 14, 2023 12:14pm Note Date/Time January 14, 2023 10: 58am [facility] [address] [place] [address] Neurology Consult Note Signed Patient: Taras Hayward MR#: [id number] : 1970 Acct:[id number] Age/Sex: 52 / M Adm Date: 3 Loc: 5T Room: 4L3761-4 Type: ADM IN Attending Dr: Srinivas Patricia MD Copies to: Srinivas Patrciia MD NO FAMILY PHYSICIAN Megha Lacy DO~ HPI Consult Date: 01/14/23 [employer] Maintenance: Megha Lacy DO Reason for consult: cerebellar infarct s/p WINDOW GLASS CUTTER OFF shunt placement. Consult Narrative HPI: 52 year old male being seen in Neurology consultation at the request of Dr. Patricia. Patient is currently admitted to the inpatient rehab unit for intense rehab after a left cerebellar infarct resulting in significant edema that required decompressive surgery and later developed hydrocephalus requiring placement of WINDOW GLASS CUTTER OFF shunt. He has a prior history of obesity, hypertension, nephrolithiasis, gastric bypass surgery. The patient initally presented to [place] emergency department via EMS with complaints of dizziness, nausea and vomiting, vertigo, and headache.? He stated the symptoms started suddenly when he was sitting in the chair after returning from work that day.? CTA head and neck demonstrated left vertebral artery occlusion near origin which prompted a transfer to [facility] in [place]. He was found to have an evolving acute infarct involving inferior portion of theleft cerebellar hemisphere with mass effect on medulla and right midbrain shift on MRI.? On 12/13/2022 patient became progressively lethargic.? Repeat CT brain demonstrated worsening hydrocephalus with concern for increased intracranial pressure with progressive effacement of basal cisterns and possibly some early left-sided transtentorial herniation development.? He underwent suboccipital decompressive craniotomy and C1 laminectomy with right frontal EVD placement. On 12/19/2022 the above EVD was removed and replaced on 12/25/2022 due to complaints of a headache with subsequent CT imaging demonstrating pseudocyst.? On 12/30/2022 patient underwent a WINDOW GLASS CUTTER OFF shunt placement due to obstructive hydrocephalus and malignant edema, EVD removed at that time. The pateint's treatment and work up was completed in [place]. The patient was then transferred to [facility] for acute rehab. The patient has continued symptoms ofslightly off balance and experiences occasional dizziness with movement/positionchanges and nausea. He was found to have a DVT that required anticoagulation. He continues to have the nausea dizziness and difficulty functioning. Yesterdaywas much worse. He was unable to eat. This morning it seems a little better. He is eating some peanut butter and crackers at this point in time. Yesterday he was barely able to function. The medication seems to helping. Movement makes his symptoms He feels that the dizziness and nausea are the worst symtpms. If he can sit and rest he does feel better. He feels like it is not getting better. He did have repeat CT at this brain that showed no interval change. Review of Systems Constitutional Constitutional: Denies chills and Denies fever(s) Eyes Eyes: Denies blurry vision and Denies diplopia ENT Ears, Nose, Mouth, and Throat: Denies nasal congestion and Denies nasal discharge Cardiovascular Cardiovascular: Denies chest pain and Denies palpitations Respiratory Respiratory: Denies cough and Denies dyspnea Gastrointestinal Gastrointestinal: Denies nausea and Denies vomiting Genitourinary Genitourinary: Denies dysuria and Denies hematuria Musculoskeletal Musculoskeletal: Denies muscle weakness, Denies numbness and Denies tingling Integumentary/Breasts Skin/Breast: Denies new lesions and Denies rash Neurologic Neurologic: Reports dizziness, Reports headache(s), Denies tingling and Denies weakness PMFSH Vaccinated for COVID-19?: Yes Medical History Cerebral infarct Hydrocephalus Hypertension Obesity Tachycardia Surgical History S/P WINDOW GLASS CUTTER OFF shunt Social History Smoking Status: Never smoker Substance Use Type: None Social History Comments: no tob no regular Etoh Meds Medications and Allergies Allergies No Known Allergies Allergy (Verified 01/09/23 09:32) Home Medications amitriptyline 10 mg tablet 10 mg PO QHS 01/03/23 [History Confirmed 01/03/23] aspirin 81 mg tablet,delayed release 81 mg PO QAM 01/03/23 [History Confirmed 01/03/23] atorvastatin 10 mg tablet 10 mg PO QHS 01/03/23 [History Confirmed 01/03/23] carvedilol 6.25 mg tablet (Coreg) 6.25 mg PO Q12H 01/03/23 [History Confirmed 01/03/23] melatonin 3 mg tablet 3 mg PO HS 01/03/23 [History Confirmed 01/03/23] polyethylene glycol 3350 17 gram oral powder packet (Miralax) 17 g PO DAILY PRN Constipation 01/03/23 [History Confirmed 01/03/23] semaglutide 0.25 mg or 0.5 mg (2 mg/3 mL) subcutaneous pen injector (Ozempic) 0.5 mg subcut QWEEK 01/03/23 [History Confirmed 01/03/23] sennosides 8.6 mg-docusate sodium 50 mg tablet 2 tab-cap PO BID 01/03/23 [History Confirmed 01/03/23] bacitracin 500 unit/gram topical ointment 1 applic topical BID 7 days #1,022.4 grams 01/09/23 [Rx] Exam Physical Exam Vital Signs: Temp Pulse Resp BP Pulse Ox O2 Del Method 97.8 F 67 20 152/95 H 92 L Room Air 01/14/23 04:18 01/14/23 04:18 01/14/23 04:18 01/14/23 04:18 01/14/23 04:18 01/14/23 04:18 Neuro Other: Patient is sitting in the bed with the lights off he does look fatigued and tired he is alert and oriented x3 and not in any true distress Speech was clear and fluent Cranial nerves II through XII pupils are equal reactive to light and accommodation bilaterally extraocular muscles were intact bilaterally visual sparrow are full there is no nystagmus there is no facial asymmetry tongue is midline good range of motion palate rises symmetrically uvula is midline there are no facial sensory deficit she has good bilateral shoulder shrug Pronator drift is negative Coordination + dysmetria in LUE and LLE, normal on right side Tone is physiologic Sensation: intact to pinprick and light touch in all 4 extremities Motor examination is 5 out of 5 x4 Babinski is negative Language skills are intact Memory is intact Fund of knowledge is within normal limits Results Laboratory Findings 01/13/23 20:22 01/13/23 20:22 Diagnostic Findings Imaging/Impressions: ITS Impressions Head CT 01/08/23 11:01 IMPRESSION: Interval removal of a right frontal approach ventricular shunt with placement of a right parietal approach ventricular shunt. The ventricles are slightly larger when compared to the prior exam. Chronic appearing changes are noted in the posterior fossa with evidence of prior occipital craniotomy. Gliosis and encephalomalacia is noted in the left cerebellar hemisphere consistent with previous left cerebellar infarct. Impression dictated by: Harsh Rodriguez M.D.01/08/2023 3:35 PM Dictation Location: [facility]-[address] 01/09/23 09:06 IMPRESSION: No significant interval change. No acute intracranial pathology. Impression dictated by: Harsh Rodriguez M.D.01/09/2023 11:00 AM Dictation Location: [facility]12 Venous Duplex 01/11/23 07:54 IMPRESSION: This examination is positive for acute deep vein thrombosis involving the right popliteal vein Impression dictated by: Gerardo Miranda M.D.01/12/2023 10:53 AM Dictation Location: [facility]PC1 Head CT 01/12/23 13:00 IMPRESSION: NO SIGNIFICANT CHANGE IN BRAIN FINDINGS COMPARED TO THE 01/09/2023 STUDY NO ACUTE INTRACRANIAL ABNORMALITY. Impression dictated by: Srinivas Moore Jr., D.O.01/12/2023 3:01 PM Dictation Location: [facility]12 Therapy Recommendations Therapy Recommendations: PT Recommendations PT Recommended Discharge Home with Outpatient Location ST Recommendations Level of Supervision Independent Self Feeding Liquid Consistency Thin Liquids Recommendation Solid Consistency Regular Solids Recommendations Meat Consistency Whole Meats Recommendations Medication Administration Give Pills with Water Dysphagia Swallow Precautions/ Sitting Upright (90 deg) Strategies ST Recommended Services at Speech Therapy Discharge Assessment/Plan (1) Cerebellar infarct: Assessment/Problem Details: 52-year-old male with an acute cerebellar infarct for which she was seen at [place] emergency room and then transferred to [place]. Sudden onset of dizziness headache and dysmetria. He did have complications of edema with shift requiring decompressive surgery and then hydrocephalus requiring WINDOW GLASS CUTTER OFF shunt placement. He is now at [facility] for rehab. He has had continued dizziness and nausea with some headache that is not severe along with ataxia and dysmetria. The dizziness has been limiting his ability to function and do rehab. He does state that the medication are helping and he has been able to eat some today. He has been anorexic due to the nausea. Fortunately his head CT has had no change with no worsening of edema, hemorrhage or hydrocephalus. Unfortunately much of his symptoms are more related to the infarct and there is no great medication that will them away. Time will be the best treatment and most patients do feel better over time but it can take a long time. Many patients can have chronic dizziness. He is already on meclizine and Elavil which are likely helping We will add some cyproheptadine and see if that helps and he can have some low dose Valium prn which can be helpful but have to watch for worsening sedation. Plan CT was reviewed Hx was reviewed Continue the max losing Continue the Elavil We will add him Periactin 4 mg 1 p.o. nightly and see if that is helpful He can have some as needed Valium 2 mg start with just a half up to twice daily for severe dizziness watch for sedation Continue with therapies He was counseled this is going to take time to get better but people usually do feel improvement over time minimize daytime napping to maximize night time sleep This was all discussed with the patient all questions were answered and he agreed with the treatment plan. Code(s): I63.9 - Cerebral infarction, unspecified Status: Acute (2) Hydrocephalus: Code(s): G91.9 - Hydrocephalus, unspecified Status: Acute (3) S/P WINDOW GLASS CUTTER OFF shunt: Code(s): Z98.2 - Presence of cerebrospinal fluid drainage device Status: Acute (4) Dizziness: Code(s): R42 - Dizziness and giddiness Status: Acute (5) Nausea: Code(s): R11.0 - Nausea Status: Acute (6) DVT, popliteal, acute: Code(s): I82.439 - Acute embolism and thrombosis of unspecified popliteal vein Status: Acute Documented By: Megha Lacy DO 01/14/23 1051 Signed By: <Electronically signed by DO Megha Lacy> 01/14/23 [facility] Work Phone: 1(499) 804-313908-05-2023 Progress note Author Srinivas Patricia [facility] January 13, 2023 11:55am Note Date/Time January 13, 2023 10: 05am [facility] [address] [place] [address] Physiatry(Rehab) Progress Note Signed Patient: Taras Hayward MR#: [id number] : 1970 Acct:[id number] Age/Sex: 52 / M Adm Date: 3 Loc: Room: [address] [place] [address] Type: ADM IN Attending Dr: Srinivas Patricia MD Copies to: ~ Date of Service: 01/13/2023 Subjective Subjective Narrative: Mr. Hayward is a 52 year old male presenting to inpatient rehab unit with functional impairments secondary to left cerebellar CVA. His past medical history is notable for obesity, hypertension, nephrolithiasis, gastric bypass surgery. Patient presented to [place] emergency department via EMS with complaints of dizziness, nausea and vomiting, vertigo, and headache. He stated the symptoms started suddenly when he was sitting in the chair after returning from work thatday. CTA head and neck demonstrated left vertebral artery occlusion near originwhich prompted a transfer to [facility] in [place]. MRI of the brain showed late acute infarct involving inferior portion of the left cerebellar hemisphere with mass effect on medulla and right midbrain shift. On 12/13/2022 patient became progressively lethargic. Repeat CT brain demonstrated worsening hydrocephalus with concern for increased intracranial pressure with progressive effacement of basal cisterns and possibly some early left-sided transtentorial herniation development. He underwent suboccipital decompressive craniotomy and C1 laminectomy with right frontal EVD placement. On 12/19/2022 the above EVD was removed and replaced on 12/25/2022 due to complaints of a headache with subsequent CT imaging demonstrating pseudocyst. On 12/30/2022 patient underwent a WINDOW GLASS CUTTER OFF shunt placement due to obstructive hydrocephalus and malignant edema, EVD removed at that time. She was recommended acute rehabilitation for strengthening. On admission patient is alert and oriented x3, answers questions appropriately. No significant neurological deficits noted on assessment. He feels slightly off balance and experiences occasional dizziness with movement/position changes and intermittent nausea, but it has improved dramatically over the past several days. He reports no change in vision, his speech is clear and fluent. He reports no cardiopulmonary complaints. Heart rate noted to be elevated in 100s on assessment. He does take carvedilol for hypertension and tachycardia. Prior to most recent hospitalization he was generally healthy and worked full- time at [employer]. Interval History: He was started on anticoagulation after clearance by neurosurgery. I reviewed this over the phone with them personally overnight. Interval CT without evidence of hemorrhage. Final urine cultures reviewed, sensitive to Bactrim. He is demonstrating some evidence of retention. Otherwise his neurologic exam isunchanged. He is having some nausea. He has been refusing his Zofran. Review of Systems Review of Systems All other systems reviewed & are negative unless noted below or in HPI Exam Physical Exam Vital Signs: Temp Pulse Resp BP Pulse Ox O2 Del Method 97.6 F 67 18 130/80 96 Room Air 01/13/23 05:00 01/13/23 05:00 01/13/23 05:00 01/13/23 05:00 01/13/23 05:00 01/13/23 05:00 Narrative: Const General: cooperative, comfortable, no acute distress, well developed Nutritional Appearance: Normal body habitus Orientation: alert, awake and oriented x3 Limitations: None HEENT Head: Multiple surgical incisions to the right cranium with sutures intact. No surrounding erythema or induration. Edges of the wounds are well approximated. No drainage noted. Ears: hearing grossly normal bilaterally Nose: external nose normal Face and sinus: normal facial exam Eyes General: appearance normal, both eyes and all related structures Pupils: PERRL EOM: EOM intact bilaterally Neck Neck: normal visual inspection, full ROM, no lymphadenopathy and trachea midline Neck mass: No Chest Chest palpation & inspection: normal inspection of the chest Resp Effort & Inspection: normal respiratory effort, able to speak in complete sentences, symmetric chest movement and no cough Auscultation: clear to auscultation bilaterally Cardio Jugular venous pressure: no JVD Rhythm: Regular rhythm and rate GI: Inspection: normal to inspection Palpation: soft, no hepatosplenomegaly and nontender Auscultation: normal bowel sounds Musc Cervical Spine: normal cervical lordosis and cervical ROM normal Thoracic/Lumbar Spine: thoraco-lumbar ROM normal Skin General: no rashes or lesions noted Neuro General: patient alert, oriented x3, moves all extremities Cranial Nerves: PERRL Speech: speech normal Extrem Other: WNL Psych Appearance: grossly normal Mental Status: WNL Mood: congruent mood Affect: normal affect Speech and Movement: speech and movement normal Attitude: cooperative Insight: Good Judgment: Good Objective Labs 01/09/23 05:51 01/09/23 05:51 Medications and Allergies Allergies and Active Meds: Allergies No Known Allergies Allergy (Verified 01/09/23 09:32) Active Medications Generic Name Dose Route Start Last Admin Trade Name Freq PRN Reason Stop Dose Admin Acetaminophen 1,000 mg 01/11/23 09:00 01/13/23 07:59 Acetaminophen 500 Mg Tablet PO 01/11/24 08:59 1,000 mg TID LEANNA Administration Al Hydrox/Mg Hydrox/Simethicone 30 ml 01/03/23 15:41 Mag Hydrox/Al Hydrox/Simeth 30 Ml Udc PO 01/03/24 15:40 Q4H PRN Indigestion Amitriptyline HCl 10 mg 01/03/23 22:00 01/10/23 20:43 Amitriptyline 10 Mg Tablet PO 01/03/24 21:59 10 mg QHS LEANNA Administration Apixaban 10 mg 01/11/23 21:00 01/13/23 07:59 Apixaban 5 Mg Tablet PO 01/18/23 09:01 10 mg BID LEANNA Administration Apixaban 5 mg 01/18/23 21:00 Apixaban 5 Mg Tablet PO 01/18/24 20:59 BID LEANNA Aspirin 81 mg 01/04/23 09:00 01/13/23 07:59 Aspirin 81 Mg Tablet. PO 01/04/24 08:59 81 mg QAM LEANNA Administration Atorvastatin Calcium 10 mg 01/03/23 22:00 01/12/23 21:19 Atorvastatin 10 Mg Tablet PO 01/03/24 21:59 10 mg QHS LEANNA Administration Bacitracin 1 applic 01/09/23 21:00 01/13/23 08:02 Bacitracin Oint 14 Gm Tube TOPICAL 01/09/24 20:59 1 applic BID LEANNA Administration Bisacodyl 10 mg 01/03/23 15:41 Bisacodyl 10 Mg Supp.Rect VA 01/03/24 15:40 DAILY PRN Constipation Carvedilol 12.5 mg 01/05/23 09:15 01/13/23 07:59 Carvedilol 12.5 Mg Tablet PO 01/05/24 09:14 12.5 mg Q12HR LEANNA Administration Docusate Sodium 100 mg 01/03/23 15:41 Docusate 100 Mg Capsule PO 01/03/24 15:40 BID PRN Constipation Docusate Sodium 283 mg 01/03/23 15:41 Docusate Enema 283 Mg/5 Ml Enema VA 01/03/24 15:40 DAILY PRN Constipation Lactulose 30 gm 01/03/23 15:41 Lactulose 20 Gm/30 Ml Udc PO 01/03/24 15:40 DAILY PRN Constipation Meclizine HCl 25 mg 01/11/23 13:48 01/13/23 07:59 Meclizine 25 Mg Tablet PO 01/11/24 13:47 25 mg Q8H PRN Administration Vertigo Melatonin 3 mg 01/03/23 22:00 01/12/23 21:19 Melatonin 3 Mg Tablet PO 01/03/24 21:59 3 mg HS LEANNA Administration Ondansetron HCl 4 mg 01/03/23 15:40 01/13/23 07:59 Ondansetron Odt 4 Mg Tab.Rapdis PO 01/03/24 15:39 4 mg Q6HR PRN Administration Nausea And Vomiting Oxycodone HCl 5 mg 01/10/23 12:06 01/12/23 21:20 Oxycodone Ir 5 Mg Tablet PO 5 mg TID PRN Administration Pain Scale 7 - 10 Polyethylene Glycol 17 gm 01/03/23 15:50 Polyethylene Glycol 3350 17 Gm Powd.Pack PO 01/03/24 15:49 DAILY PRN Constipation Senna/Docusate Sodium 2 tab 01/03/23 21:00 01/13/23 07:59 Sennosides/Docusate 8.6-50mg 1 Tab Tablet PO 01/03/24 20:59 2 tab BID LEANNA Administration Sennosides 2 tab 01/04/23 12:00 Sennosides 8.6 Mg Tablet PO 01/04/24 11:59 DAILY@12 PRN If no BM in 2 days Sodium Chloride 0 ml 01/03/23 15:41 Sodium Chloride 0.9 % 10 Ml Syringe IV-PUSH 01/03/24 15:40 PRN PRN Flush Trimethoprim/Sulfamethoxazole 1 tab 01/11/23 21:00 01/13/23 07:59 Sulfamethoxazole/Tmp 800-160mg 1 Tab Tablet PO 01/16/23 20:59 1 tab BID LEANNA Administration Venlafaxine HCl 37.5 mg 01/11/23 09:00 01/13/23 07:59 Venlafaxine Er 37.5 Mg Cap.Er.24h PO 01/11/24 08:59 37.5 mg DAILY LEANNA Administration Assessment/Plan Assessment/Plan (1) S/P WINDOW GLASS CUTTER OFF shunt: Code(s): Z98.2 - Presence of cerebrospinal fluid drainage device Status: Acute (2) Hydrocephalus: Code(s): G91.9 - Hydrocephalus, unspecified Status: Acute (3) Cerebellar infarct: Code(s): I63.9 - Cerebral infarction, unspecified Status: Acute (4) Hypertension: Code(s): I10 - Essential (primary) hypertension Status: Acute (5) Obesity (BMI 35.0-39.9 without comorbidity): Code(s): E66.9 - Obesity, unspecified Status: Acute (6) Tachycardia: Code(s): R00.0 - Tachycardia, unspecified Status: Acute (7) Impaired mobility and activities of daily living: Code(s): Z74.09 - Other reduced mobility; Z78.9 - Other specified health status Status: Acute (8) DVT, popliteal, acute: Code(s): I82.439 - Acute embolism and thrombosis of unspecified popliteal vein Status: Acute Plan 52-year-old male presenting to acute inpatient rehab with functional impairmentssecondary to left cerebellar CVA s/p WINDOW GLASS CUTTER OFF shunt placement due to development of hydrocephalus. . He does complain of continued intermittent headaches, nausea/vomiting, dizziness/lightheadedness. * + Right popliteal DVT. I read the case with his neurosurgeon over the phone yesterday. He is cleared to start anticoagulation. Eliquis was ordered. * CT head with no hemorrhagic conversion or bleeding. * Continue Bactrim for UTI. * Monitor. Patient education Pressure ulcer prophylaxis; encourage mobilization, frequent postural changes, pressure-relief techniques DVT prophylaxis: Anticoagulated with Eliquis. Encourage deep breathing exercise incentive spirometry. Monitor bladder. Toileting schedule. Continue current bladder management, with scans as needed and CIC if needed. Start bowel care program every day to obtain continence, prevent ileus. Maintain fall precautions Gait and balance retraining Functional training and self-care and home management, including activities of daily living and instrumental activities of daily living Provision of the necessary gait aids and functional adaptive equipment to enhance the patient's a functional spiritism Ensure adequate nutrition and hydration Sleep: No issues Pain: Continue current regimen Discharge planning: Home with partner next week, pending insurance recertification. I spent greater than 25 minutes for services, including [id number] encounter with the patient, discussion of the case, plan of care, and exam; and [id number] activities, such as reviewing pertinent learning consultant documentation, recent therapy notes, laboratory and radiology studies, and discussion of case with care team including physician, nursing, skilled nursing case manager, andtherapists. More than 50 % of time was spent on patient/family counseling or coordination ofcare. Plan: \ Documented By: Srinivas Patricia MD 01/13/23 1005 Signed By: <Electronically signed by Srinivas Patricia MD> 01/13/23 1155 [facility] Work Phone: 1(312) 417-520308-04-2023 Progress note Author Srinivas Patricia [facility] January 12, 2023 8:34pm Note Date/Time January 11, 2023 2:1 6pm [facility] [address] [place] [address] Physiatry(Rehab) Progress Note Signed Patient: Taras Hayward MR#: [id number] : 1970 Acct:[id number] Age/Sex: 52 / M Adm Date: 3 Loc: Room: [address] [place] [address] Type: ADM IN Attending Dr: Srinivas Patricia MD Copies to: ~ <Tisha Cardona APRN - Last Filed: 01/11/23 14:16> Date of Service: 01/11/2023 Subjective <Tisha Cardona APRN - Last Filed: 01/11/23 14:16> Subjective Narrative: Mr. Hayward is a 52 year old male presenting to inpatient rehab unit with functional impairments secondary to left cerebellar CVA. His past medical history is notable for obesity, hypertension, nephrolithiasis, gastric bypass surgery. Patient presented to [place] emergency department via EMS with complaints of dizziness, nausea and vomiting, vertigo, and headache. He stated the symptoms started suddenly when he was sitting in the chair after returning from work thatday. CTA head and neck demonstrated left vertebral artery occlusion near originwhich prompted a transfer to [facility] in [place]. MRI of the brain showed late acute infarct involving inferior portion of the left cerebellar hemisphere with mass effect on medulla and right midbrain shift. On 12/13/2022 patient became progressively lethargic. Repeat CT brain demonstrated worsening hydrocephalus with concern for increased intracranial pressure with progressive effacement of basal cisterns and possibly some early left-sided transtentorial herniation development. He underwent suboccipital decompressive craniotomy and C1 laminectomy with right frontal EVD placement. On 12/19/2022 the above EVD was removed and replaced on 12/25/2022 due to complaints of a headache with subsequent CT imaging demonstrating pseudocyst. On 12/30/2022 patient underwent a WINDOW GLASS CUTTER OFF shunt placement due to obstructive hydrocephalus and malignant edema, EVD removed at that time. She was recommended acute rehabilitation for strengthening. On admission patient is alert and oriented x3, answers questions appropriately. No significant neurological deficits noted on assessment. He feels slightly off balance and experiences occasional dizziness with movement/position changes and intermittent nausea, but it has improved dramatically over the past several days. He reports no change in vision, his speech is clear and fluent. He reports no cardiopulmonary complaints. Heart rate noted to be elevated in 100s on assessment. He does take carvedilol for hypertension and tachycardia. Prior to most recent hospitalization he was generally healthy and worked full- time at [employer]. Interval History: Right leg venous ultrasound preliminary is positive for right popliteal DVT. Heis not anticoagulated. Results will be faxed to patient's neurosurgeon to obtain clearance for future DVT treatments/prophylaxis. We will also consult vascular surgery to assist with management of acute DVT. Nausea and dizziness again this morning. Refused a.m. therapy but did participate in the afternoon session. Was able to ambulate 200 feet with a wheeled walker and CGA plus wheelchair follow. CGA for transfers. Review of Systems <Tisha Cardona APRN - Last Filed: 01/11/23 14:16> Review of Systems All other systems reviewed & are negative unless noted below or in HPI Exam <Tisha Cardona APRN - Last Filed: 01/11/23 14:16> Physical Exam Vital Signs: Temp Pulse Resp BP Pulse Ox O2 Del Method 97.6 F 68 18 136/80 95 Room Air 01/11/23 05:00 01/11/23 05:00 01/11/23 05:00 01/11/23 05:00 01/11/23 05:00 01/11/23 05:00 Narrative: Const General: cooperative, comfortable, no acute distress, well developed Nutritional Appearance: Normal body habitus Orientation: alert, awake and oriented x3 Limitations: None HEENT Head: Multiple surgical incisions to the right cranium with sutures intact. No surrounding erythema or induration. Edges of the wounds are well approximated. No drainage noted. Ears: hearing grossly normal bilaterally Nose: external nose normal Face and sinus: normal facial exam Eyes General: appearance normal, both eyes and all related structures Pupils: PERRL EOM: EOM intact bilaterally Neck Neck: normal visual inspection, full ROM, no lymphadenopathy and trachea midline Neck mass: No Chest Chest palpation & inspection: normal inspection of the chest Resp Effort & Inspection: normal respiratory effort, able to speak in complete sentences, symmetric chest movement and no cough Auscultation: clear to auscultation bilaterally Cardio Jugular venous pressure: no JVD Rhythm: Regular rhythm and rate GI: Inspection: normal to inspection Palpation: soft, no hepatosplenomegaly and nontender Auscultation: normal bowel sounds Musc Cervical Spine: normal cervical lordosis and cervical ROM normal Thoracic/Lumbar Spine: thoraco-lumbar ROM normal Skin General: Approximately 1 x 0.5 x 0.2 cm laceration above the left upper lip, bleeding controlled. Small abrasion to the top of the head. Larger abrasion to the left chest shoulder area. Neuro General: patient alert, oriented x3, moves all extremities Cranial Nerves: PERRL Speech: speech normal Extrem Other: WNL Psych Appearance: grossly normal Mental Status: WNL Mood: congruent mood Affect: normal affect Speech and Movement: speech and movement normal Attitude: cooperative Insight: Good Judgment: Good Objective <Tisha Cardona APRN - Last Filed: 01/11/23 14:16> Labs 01/09/23 05:51 01/09/23 05:51 Labs: Laboratory Results - last 24 hr 01/11/23 11:30 Urine Color Dark yellow A Urine Appearance Cloudy A Urine pH 6.0 Ur Specific [place] 1.019 Urine Protein Trace H Urine Glucose (UA) Normal Urine Ketones 1+ H Urine Occult Blood Trace H Urine Nitrite Negative Urine Bilirubin Negative Urine Urobilinogen Normal Ur Leukocyte Esterase 4+ H Urine RBC 10-19 H Urine WBC 50-100 H Ur Squamous Epith Cells None seen Urine Bacteria 4+ H Hyaline Casts 0-8 Medications and Allergies Allergies and Active Meds: Allergies No Known Allergies Allergy (Verified 01/09/23 09:32) Active Medications Generic Name Dose Route Start Last Admin Trade Name Freq PRN Reason Stop Dose Admin Acetaminophen 1,000 mg 01/11/23 09:00 01/11/23 13:50 Acetaminophen 500 Mg Tablet PO 01/11/24 08:59 Not Given TID LEANNA Al Hydrox/Mg Hydrox/Simethicone 30 ml 01/03/23 15:41 Mag Hydrox/Al Hydrox/Simeth 30 Ml Udc PO 01/03/24 15:40 Q4H PRN Indigestion Amitriptyline HCl 10 mg 01/03/23 22:00 01/10/23 20:43 Amitriptyline 10 Mg Tablet PO 01/03/24 21:59 10 mg QHS LEANNA Administration Aspirin 81 mg 01/04/23 09:00 01/11/23 08:41 Aspirin 81 Mg Tablet.Dr PO 01/04/24 08:59 81 mg QAM LEANNA Administration Atorvastatin Calcium 10 mg 01/03/23 22:00 01/10/23 20:43 Atorvastatin 10 Mg Tablet PO 01/03/24 21:59 10 mg QHS LEANNA Administration Bacitracin 1 applic 01/09/23 21:00 01/11/23 08:42 Bacitracin Oint 14 Gm Tube TOPICAL 01/09/24 20:59 1 applic BID LEANNA Administration Bisacodyl 10 mg 01/03/23 15:41 Bisacodyl 10 Mg Supp.Rect VA 01/03/24 15:40 DAILY PRN Constipation Carvedilol 12.5 mg 01/05/23 09:15 01/11/23 08:41 Carvedilol 12.5 Mg Tablet PO 01/05/24 09:14 12.5 mg Q12HR LEANNA Administration Docusate Sodium 100 mg 01/03/23 15:41 Docusate 100 Mg Capsule PO 01/03/24 15:40 BID PRN Constipation Docusate Sodium 283 mg 01/03/23 15:41 Docusate Enema 283 Mg/5 Ml Enema VA 01/03/24 15:40 DAILY PRN Constipation Lactulose 30 gm 01/03/23 15:41 Lactulose 20 Gm/30 Ml Udc PO 01/03/24 15:40 DAILY PRN Constipation Meclizine HCl 25 mg 01/11/23 13:48 Meclizine 25 Mg Tablet PO 01/11/24 13:47 Q8H PRN Vertigo Melatonin 3 mg 01/03/23 22:00 01/10/23 20:43 Melatonin 3 Mg Tablet PO 01/03/24 21:59 3 mg HS LEANNA Administration Ondansetron HCl 4 mg 01/03/23 15:40 01/10/23 08:42 Ondansetron Odt 4 Mg Tab.Rapdis PO 01/03/24 15:39 4 mg Q6HR PRN Administration Nausea And Vomiting Oxycodone HCl 5 mg 01/10/23 12:06 01/11/23 05:26 Oxycodone Ir 5 Mg Tablet PO 5 mg TID PRN Administration Pain Scale 7 - 10 Polyethylene Glycol 17 gm 01/03/23 15:50 Polyethylene Glycol 3350 17 Gm Powd.Pack PO 01/03/24 15:49 DAILY PRN Constipation Senna/Docusate Sodium 2 tab 01/03/23 21:00 01/11/23 08:42 Sennosides/Docusate 8.6-50mg 1 Tab Tablet PO 01/03/24 20:59 Not Given BID LEANNA Sennosides 2 tab 01/04/23 12:00 Sennosides 8.6 Mg Tablet PO 01/04/24 11:59 DAILY@12 PRN If no BM in 2 days Sodium Chloride 0 ml 01/03/23 15:41 Sodium Chloride 0.9 % 10 Ml Syringe IV-PUSH 01/03/24 15:40 PRN PRN Flush Venlafaxine HCl 37.5 mg 01/11/23 09:00 01/11/23 08:41 Venlafaxine Er 37.5 Mg Cap.Er.24h PO 01/11/24 08:59 37.5 mg DAILY LEANNA Administration Assessment/Plan <Tisha Cardona, SUBSTATION INSPECTOR - Last Filed: 01/11/23 14:16> Assessment/Plan (1) S/P WINDOW GLASS CUTTER OFF shunt: Code(s): Z98.2 - Presence of cerebrospinal fluid drainage device Status: Acute (2) Hydrocephalus: Code(s): G91.9 - Hydrocephalus, unspecified Status: Acute (3) Cerebellar infarct: Code(s): I63.9 - Cerebral infarction, unspecified Status: Acute (4) Hypertension: Code(s): I10 - Essential (primary) hypertension Status: Acute (5) Obesity (BMI 35.0-39.9 without comorbidity): Code(s): E66.9 - Obesity, unspecified Status: Acute (6) Tachycardia: Code(s): R00.0 - Tachycardia, unspecified Status: Acute (7) Impaired mobility and activities of daily living: Code(s): Z74.09 - Other reduced mobility; Z78.9 - Other specified health status Status: Acute Plan 52-year-old male presenting to acute inpatient rehab with functional impairmentssecondary to left cerebellar CVA s/p WINDOW GLASS CUTTER OFF shunt placement due to development of hydrocephalus. . He does complain of continued intermittent headaches, nausea/vomiting, dizziness/lightheadedness. * + Right popliteal DVT according to preliminary US read. Results to neuro surgery. Need their clearance to start the patient on anticoagulation. Will consult vascular surgery to assist with acute DVT management. * UA appears grossly infected with leukocytes, 1+ ketones 4+ bacteria, 50-100 WBCs. Urine culture is pending. Will start on p.o. bactrim ds. Trend final C&S. * May repeat labs tomorrow. Patient education Pressure ulcer prophylaxis; encourage mobilization, frequent postural changes, pressure-relief techniques DVT prophylaxis: Continue aspirin p.o. Encourage deep breathing exercise incentive spirometry. Monitor bladder. Toileting schedule. Continue current bladder management, with scans as needed and CIC if needed. Start bowel care program every day to obtain continence, prevent ileus. Maintain fall precautions Gait and balance retraining Functional training and self-care and home management, including activities of daily living and instrumental activities of daily living Provision of the necessary gait aids and functional adaptive equipment to enhance the patient's a functional spiritism Ensure adequate nutrition and hydration Sleep: No issues Pain: Continue current regimen Discharge planning: Home with partner next week, pending insurance recertification. I spent greater than 15 minutes for services, including [id number] encounter with the patient, discussion of the case, plan of care, and exam; and [id number]-[id number] activities, such as reviewing pertinent learning consultant documentation, recent therapy notes, laboratory and radiology studies, and discussion of case with care team including physician, nursing, skilled nursing case manager, and therapists. More than 50 % of time was spent on patient/family counseling or coordination ofcare. <Srinivas Patricia MD - Last Filed: 01/12/23 20:34> Assessment/Plan (1) S/P WINDOW GLASS CUTTER OFF shunt: (2) Hydrocephalus: (3) Cerebellar infarct: (4) Hypertension: (5) Obesity (BMI 35.0-39.9 without comorbidity): (6) Tachycardia: (7) Impaired mobility and activities of daily living: Plan: I reviewed the history and the relevant portions of the chart, including currentorders, allied health and learning consultant notes, labs/imaging and plan of care as above. Documented By: Tisha Cardona APRN 01/11/23 1 405 Signed By: <Electronically signed by RADHA Cardona> 01/11/23 1416 <Electronically signed by Srinivas Patricia MD> 01/12/232033 [facility] Work Phone: 1(309) 226-137408-04-2023 Consult note Author Gerardo Miranda [facility] January 12, 2023 11:49am Note Date/Time January 11, 2023 4:2 8pm [facility] [address] [place] [address] Vascular Surgery Consult Note Signed Patient: Taras Hayward MR#: [id number] : 1970 Acct:[id number] Age/Sex: 52 / M Adm Date: 3 Loc: Room: [address] [place] [address] Type: ADM IN Attending Dr: Srinivas Patricia MD Copies to: RADHA Pham MD Joseph Riley, MD NO FAMILY PHYSICIAN~ HPI Consult HPI Reason for consult: right distal popliteal DVT History of present illness: Mr. Hayward is a 52-year-old obese male with medical history to include hypertension, nephrolithiasis, gastric bypass surgery, obesity, and recent left cerebellar CVA. He is currently at inpatient rehab unit with functional impairments after extensive neurosurgery for hydrocephalus patient had recent placement of WINDOW GLASS CUTTER OFF shunt in [place]. He currently suffers from ongoing nausea and dizziness dizziness, nausea, vomiting. With increased lower extremity edema during his rehab, a bilateral lower extremity ultrasound was obtained which indicates positive DVT in the distal segment of the right popliteal vein. During my visit this afternoon, he is lying in his bed as he continues with nausea, dizziness, vomiting and does not open his eyes to look at me when I talkto him although he does answer my questions. On questioning him at bedside, he denies any lower extremity pain or discomfort. He denies any shortness of breath or chest pain. He denies any previous history of DVT or PE. cc:: CC: Srinivas Patricia MD Data of Consult Consult date: 01/11/2023 Requesting Physician: Srinivas Patricia MD Review of Systems Review of Systems All other systems reviewed & are negative unless noted below or in HPI PMFSH Vaccinated for COVID-19?: Yes Medical History Cerebral infarct Hydrocephalus Hypertension Obesity Tachycardia Surgical History S/P WINDOW GLASS CUTTER OFF shunt Social History Smoking Status: Never smoker Substance Use Type: None Allergies & Active Medications Medications and Allergies Allergies No Known Allergies Allergy (Verified 01/09/23 09:32) Exam Physical Exam Vital Signs: Temp Pulse Resp BP Pulse Ox O2 Del Method 98.6 F 67 16 145/77 H 94 L Room Air 01/11/23 15:31 01/11/23 15:31 01/11/23 15:31 01/11/23 15:31 01/11/23 15:31 01/11/23 05:00 Narrative: He has no shortness of breath during our conversation today.52-year-old morbidlyobese male, no acute distress. He is resting in his bed this afternoon and does not open his eyes or look at me when I talk to him but he does answer my questions appropriately. Focused assessment of bilateral lower extremities does show mild generalized edema, no open sores or ulcers. He has no skin changes. Bilateral calf are soft and nontender. His feet are warm and well-perfused. Const General: cooperative and no acute distress Results Labs 01/09/23 05:51 01/09/23 05:51 Labs: Laboratory Results - last 24 hr 01/11/23 11:30 Urine Color Dark yellow A Urine Appearance Cloudy A Urine pH 6.0 Ur Specific [place] 1.019 Urine Protein Trace H Urine Glucose (UA) Normal Urine Ketones 1+ H Urine Occult Blood Trace H Urine Nitrite Negative Urine Bilirubin Negative Urine Urobilinogen Normal Ur Leukocyte Esterase 4+ H Urine RBC 10-19 H Urine WBC 50-100 H Ur Squamous Epith Cells None seen Urine Bacteria 4+ H Hyaline Casts 0-8 A&P - Vascular (1) S/P WINDOW GLASS CUTTER OFF shunt: Code(s): Z98.2 - Presence of cerebrospinal fluid drainage device Status: Acute (2) Hydrocephalus: Code(s): G91.9 - Hydrocephalus, unspecified Status: Acute (3) Cerebellar infarct: Code(s): I63.9 - Cerebral infarction, unspecified Status: Acute (4) Hypertension: Code(s): I10 - Essential (primary) hypertension Status: Acute (5) Obesity (BMI 35.0-39.9 without comorbidity): Code(s): E66.9 - Obesity, unspecified Status: Acute (6) Tachycardia: Code(s): R00.0 - Tachycardia, unspecified Status: Acute (7) Impaired mobility and activities of daily living: Code(s): Z74.09 - Other reduced mobility; Z78.9 - Other specified health status Status: Acute (8) DVT, popliteal, acute: Plan: Patient has presence of right lower extremity distal popliteal DVT by ultrasound, appears acute. He should be maintained on anticoagulant therapy if okay with his neurosurgery team. If not cleared for oral anticoagulation, will consider IVC filter placement. Recommend compression and elevation of the rightleg. Encourage ambulation. This is Dr. Miranda dictating. By ultrasound examination this patient has acutepopliteal level deep vein thrombosis and would require anticoagulation. This does not require thrombectomy. If he cannot be anticoagulated for any reason then a vena cava filter could be placed. Code(s): I82.439 - Acute embolism and thrombosis of unspecified popliteal vein Status: Acute Documented By: Gracie Pizano APRN 01/11/23 1 625 Signed By: <Electronically signed by RADHA Pizano> 01/11/23 1702 <Electronically signed by MD Gerardo Miranda> 01/12/23 1144 [facility] Work Phone: [phone]) 644-966508-03-2023 Progress note Author Srinivas Patricia [facility] January 11, 2023 8:01am Note Date/Time January 10, 2023 3:0 5pm [facility] [address] [place] [address] Physiatry(Rehab) Progress Note Signed Patient: Taras Hayward MR#: [id number] : 1970 Acct:[id number] Age/Sex: 52 / M Adm Date: 3 Loc: 5T Room: 6G3935-3 Type: ADM IN Attending Dr: Srinivas Patricia MD Copies to: ~ Date of Service: 01/10/2023 Subjective Subjective Narrative: Mr. Hayward is a 52 year old male presenting to inpatient rehab unit with functional impairments secondary to left cerebellar CVA. His past medical history is notable for obesity, hypertension, nephrolithiasis, gastric bypass surgery. Patient presented to [place] emergency department via EMS with complaints of dizziness, nausea and vomiting, vertigo, and headache. He stated the symptoms started suddenly when he was sitting in the chair after returning from work thatday. CTA head and neck demonstrated [facility] in [place]. MRI of the brain showed late acute infarct involving inferior portion of the left cerebellar hemisphere with mass effect on medulla and right midbrain shift. On 12/13/2022 patient became progressively lethargic. Repeat CT brain demonstrated worsening hydrocephalus with concern for increased intracranial pressure with progressive effacement of basal cisterns and possibly some early left-sided transtentorial herniation development. He underwent suboccipital decompressive craniotomy and C1 laminectomy with right frontal EVD placement. On 12/19/2022 the above EVD was removed and replaced on 12/25/2022 due to complaints of a headache with subsequent CT imaging demonstrating pseudocyst. On 12/30/2022 patient underwent a WINDOW GLASS CUTTER OFF shunt placement due to obstructive hydrocephalus and malignant edema, EVD removed at that time. She was recommended acute rehabilitation for strengthening. On admission patient is alert and oriented x3, answers questions appropriately. No significant neurological deficits noted on assessment. He feels slightly off balance and experiences occasional dizziness with movement/position changes and intermittent nausea, but it has improved dramatically over the past several days. He reports no change in vision, his speech is clear and fluent. He reports no cardiopulmonary complaints. Heart rate noted to be elevated in 100s on assessment. He does take carvedilol for hypertension and tachycardia. Prior to most recent hospitalization he was generally healthy and worked full- time at [employer]. Interval History: Ambulatory 180' and able to do one flight of stairs with therapy. Vitals are stable, no new focal neurologic deficit. Partner at bedside, notes patient seems more fatigued and was a little confused this morning. CT head last two days largely unremarkable, results to [facility] in [place]. Family concerned about mood, wonders if patient becoming more depressed. Review of Systems Review of Systems All other systems reviewed & are negative unless noted below or in HPI Exam Physical Exam Vital Signs: Temp Pulse Resp BP Pulse Ox O2 Del Method 98.9 F 98 H 15 118/70 94 L Room Air 01/10/23 05:00 01/10/23 08:40 01/10/23 05:00 01/10/23 08:40 01/10/23 08:40 01/10/23 08:40 Narrative: Const General: cooperative, comfortable, no acute distress, well developed Nutritional Appearance: Normal body habitus Orientation: alert, awake and oriented x3 Limitations: None HEENT Head: Multiple surgical incisions to the right cranium with sutures intact. No surrounding erythema or induration. Edges of the wounds are well approximated. No drainage noted. Ears: hearing grossly normal bilaterally Nose: external nose normal Face and sinus: normal facial exam Eyes General: appearance normal, both eyes and all related structures Pupils: PERRL EOM: EOM intact bilaterally Neck Neck: normal visual inspection, full ROM, no lymphadenopathy and trachea midline Neck mass: No Chest Chest palpation & inspection: normal inspection of the chest Resp Effort & Inspection: normal respiratory effort, able to speak in complete sentences, symmetric chest movement and no cough Auscultation: clear to auscultation bilaterally Cardio Jugular venous pressure: no JVD Rhythm: Regular rhythm and rate GI: Inspection: normal to inspection Palpation: soft, no hepatosplenomegaly and nontender Auscultation: normal bowel sounds Musc Cervical Spine: normal cervical lordosis and cervical ROM normal Thoracic/Lumbar Spine: thoraco-lumbar ROM normal Skin General: no rashes or lesions noted Neuro General: patient alert, oriented x3, moves all extremities Cranial Nerves: PERRL Speech: speech normal Extrem Other: WNL Psych Appearance: grossly normal Mental Status: WNL Mood: congruent mood Affect: normal affect Speech and Movement: speech and movement normal Attitude: cooperative Insight: Good Judgment: Good Objective Labs 01/09/23 05:51 01/09/23 05:51 Medications and Allergies Allergies and Active Meds: Allergies No Known Allergies Allergy (Verified 01/09/23 09:32) Active Medications Generic Name Dose Route Start Last Admin Trade Name Freq PRN Reason Stop Dose Admin Acetaminophen 500 mg 01/03/23 15:41 01/09/23 11:13 Acetaminophen 500 Mg Tablet PO 01/03/24 15:40 500 mg Q4H PRN Administration Pain Al Hydrox/Mg Hydrox/Simethicone 30 ml 01/03/23 15:41 Mag Hydrox/Al Hydrox/Simeth 30 Ml Udc PO 01/03/24 15:40 Q4H PRN Indigestion Amitriptyline HCl 10 mg 01/03/23 22:00 01/09/23 20:13 Amitriptyline 10 Mg Tablet PO 01/03/24 21:59 10 mg QHS LEANNA Administration Aspirin 81 mg 01/04/23 09:00 01/10/23 08:42 Aspirin 81 Mg Tablet.Dr PO 01/04/24 08:59 81 mg QAM LEANNA Administration Atorvastatin Calcium 10 mg 01/03/23 22:00 01/09/23 20:13 Atorvastatin 10 Mg Tablet PO 01/03/24 21:59 10 mg QHS LEANNA Administration Bacitracin 1 applic 01/09/23 21:00 01/10/23 08:43 Bacitracin Oint 14 Gm Tube TOPICAL 01/09/24 20:59 1 applic BID LEANNA Administration Bisacodyl 10 mg 01/03/23 15:41 Bisacodyl 10 Mg Supp.Rect [place] 01/03/24 15:40 DAILY PRN Constipation Carvedilol 12.5 mg 01/05/23 09:15 01/10/23 08:42 Carvedilol 12.5 Mg Tablet PO 01/05/24 09:14 12.5 mg Q12HR LEANNA Administration Docusate Sodium 100 mg 01/03/23 15:41 Docusate 100 Mg Capsule PO 01/03/24 15:40 BID PRN Constipation Docusate Sodium 283 mg 01/03/23 15:41 Docusate Enema 283 Mg/5 Ml Enema [place] 01/03/24 15:40 DAILY PRN Constipation Lactulose 30 gm 01/03/23 15:41 Lactulose 20 Gm/30 Ml Udc PO 01/03/24 15:40 DAILY PRN Constipation Melatonin 3 mg 01/03/23 22:00 01/09/23 20:13 Melatonin 3 Mg Tablet PO 01/03/24 21:59 3 mg HS LEANNA Administration Ondansetron HCl 4 mg 01/03/23 15:40 01/10/23 08:42 Ondansetron Odt 4 Mg Tab.Rapdis PO 01/03/24 15:39 4 mg Q6HR PRN Administration Nausea And Vomiting Oxycodone HCl 5 mg 01/10/23 12:06 Oxycodone Ir 5 Mg Tablet PO TID PRN Pain Scale 7 - 10 Polyethylene Glycol 17 gm 01/03/23 15:50 Polyethylene Glycol 3350 17 Gm Powd.Pack PO 01/03/24 15:49 DAILY PRN Constipation Senna/Docusate Sodium 2 tab 01/03/23 21:00 01/10/23 08:42 Sennosides/Docusate 8.6-50mg 1 Tab Tablet PO 01/03/24 20:59 2 tab BID LEANNA Administration Sennosides 2 tab 01/04/23 12:00 Sennosides 8.6 Mg Tablet PO 01/04/24 11:59 DAILY@12 PRN If no BM in 2 days Sodium Chloride 0 ml 01/03/23 15:41 Sodium Chloride 0.9 % 10 Ml Syringe IV-PUSH 01/03/24 15:40 PRN PRN Flush Assessment/Plan Assessment/Plan (1) S/P WINDOW GLASS CUTTER OFF shunt: Code(s): Z98.2 - Presence of cerebrospinal fluid drainage device Status: Acute (2) Hydrocephalus: Code(s): G91.9 - Hydrocephalus, unspecified Status: Acute (3) Cerebellar infarct: Code(s): I63.9 - Cerebral infarction, unspecified Status: Acute (4) Hypertension: Code(s): I10 - Essential (primary) hypertension Status: Acute (5) Obesity (BMI 35.0-39.9 without comorbidity): Code(s): E66.9 - Obesity, unspecified Status: Acute (6) Tachycardia: Code(s): R00.0 - Tachycardia, unspecified Status: Acute (7) Impaired mobility and activities of daily living: Code(s): Z74.09 - Other reduced mobility; Z78.9 - Other specified health status Status: Acute Plan 52-year-old male presenting to acute inpatient rehab with functional impairmentssecondary to left cerebellar CVA s/p WINDOW GLASS CUTTER OFF shunt placement due to development of hydrocephalus. . He does complain of continued intermittent headaches, nausea/vomiting, dizziness/lightheadedness. * D/c elavil and start effexor, may have been contributing to dizziness/lightheadedness and morning fatigue. * Check UA * Should confusion persist or other neuro symptoms worsen can pursue additional testing, but he worked well with therapy later in the morning and in afternoon. Patient education Pressure ulcer prophylaxis; encourage mobilization, frequent postural changes, pressure-relief techniques DVT prophylaxis: Continue aspirin p.o. Encourage deep breathing exercise incentive spirometry. Monitor bladder. Toileting schedule. Continue current bladder management, with scans as needed and CIC if needed. Start bowel care program every day to obtain continence, prevent ileus. Maintain fall precautions Gait and balance retraining Functional training and self-care and home management, including activities of daily living and instrumental activities of daily living Provision of the necessary gait aids and functional adaptive equipment to enhance the patient's a functional spiritism Ensure adequate nutrition and hydration Sleep: No issues Pain: Continue current regimen Discharge planning: Home with partner next week, pending insurance recertification. Plan: I completed a substantive portion of this encounter, the medical decision makingportion of this note in its entirety, including Allied health note review, nursing note review, learning consultant note review, discussion with nursing and case management, and more than 50% of my time was spent on counseling and coordination of care, time spent 25 minutes Patient was personally seen by me, Dr. Patricia, on the day of encounter, reviewed the history and the relevant portions of the chart, including current orders, allied health and learning consultant notes, labs/imaging and performed coronado elements of exam and I formulated the plan of care and facilitated the medical decision making. Documented By: Srinivas Patricia MD 01/10/23 1505 Signed By: <Electronically signed by Srinivas Patricia MD> 01/11/23 0801 [facility] Work Phone: [phone]) 686-886808-01-2023 Progress note Author Srinivas Patricia [facility] January 09, 2023 2:58pm Note Date/Time January 09, 2023 12: 43pm [facility] [address] [place] [address] Physiatry(Rehab) Progress Note Signed Patient: Taras Hayward MR#: [id number] : 1970 Acct:[id number] Age/Sex: 52 / M Adm Date: 07/26/2 3 Loc: Room: 5N8959-2 Type: ADM IN Attending Dr: Srinivas Patricia MD Copies to: ~ <Tisha Cardona APRN - Last Filed: 01/09/23 13:29> Date of Service: 01/09/2023 Subjective <Tisha Cardona APRN - Last Filed: 01/09/23 13:29> Subjective Narrative: Mr. Hayward is a 52 year old male presenting to inpatient rehab unit with functional impairments secondary to left cerebellar CVA. His past medical history is notable for obesity, hypertension, nephrolithiasis, gastric bypass surgery. Patient presented to [place] emergency department via EMS with complaints of dizziness, nausea and vomiting, vertigo, and headache. He stated the symptoms started suddenly when he was sitting in the chair after returning from work thatday. CTA head and neck demonstrated [facility] in [place]. MRI of the brain showed late acute infarct involving inferior portion of the left cerebellar hemisphere with mass effect on medulla and right midbrain shift. On 12/13/2022 patient became progressively lethargic. Repeat CT brain demonstrated worsening hydrocephalus with concern for increased intracranial pressure with progressive effacement of basal cisterns and possibly some early left-sided transtentorial herniation development. He underwent suboccipital decompressive craniotomy and C1 laminectomy with right frontal EVD placement. On 12/19/2022 the above EVD was removed and replaced on 12/25/2022 due to complaints of a headache with subsequent CT imaging demonstrating pseudocyst. On 12/30/2022 patient underwent a WINDOW GLASS CUTTER OFF shunt placement due to obstructive hydrocephalus and malignant edema, EVD removed at that time. She was recommended acute rehabilitation for strengthening. On admission patient is alert and oriented x3, answers questions appropriately. No significant neurological deficits noted on assessment. He feels slightly off balance and experiences occasional dizziness with movement/position changes and intermittent nausea, but it has improved dramatically over the past several days. He reports no change in vision, his speech is clear and fluent. He reports no cardiopulmonary complaints. Heart rate noted to be elevated in 100s on assessment. He does take carvedilol for hypertension and tachycardia. Prior to most recent hospitalization he was generally healthy and worked full- time at [employer]. Interval History: Yuniel sustained a fall in the bathroom earlier this morning, striking his head/face on the sink. This was witnessed by staff members. He has a small laceration just above his left upper lip, bleeding is controlled at this time. There is also a small abrasion to the top of the head and another abrasion to the top of his chest/shoulder. There was no loss of consciousness. Patient reports no other injury and denies pain anywhere. Patient believes, he simply lost his balance. He does not feel dizzy or lightheaded and denies headache or blurred vision. He is not nauseous and has not vomited. CT of the head ordered. The LAC will have to be assessed by the ER physician. Chronic conditions stable. Review of Systems <Tisha Cardona APRN - Last Filed: 01/09/23 13:29> Review of Systems All other systems reviewed & are negative unless noted below or in HPI Exam <Tisha Cardona APRN - Last Filed: 01/09/23 13:29> Physical Exam Vital Signs: Temp Pulse Resp BP Pulse Ox O2 Del Method 97.7 F 79 18 143/88 H 98 Room Air 01/09/23 11:18 01/09/23 11:18 01/09/23 11:18 01/09/23 11:18 01/09/23 11:18 01/09/23 11:18 Narrative: Const General: cooperative, comfortable, no acute distress, well developed Nutritional Appearance: Normal body habitus Orientation: alert, awake and oriented x3 Limitations: None HEENT Head: Multiple surgical incisions to the right cranium with sutures intact. No surrounding erythema or induration. Edges of the wounds are well approximated. No drainage noted. Ears: hearing grossly normal bilaterally Nose: external nose normal Face and sinus: normal facial exam Eyes General: appearance normal, both eyes and all related structures Pupils: PERRL EOM: EOM intact bilaterally Neck Neck: normal visual inspection, full ROM, no lymphadenopathy and trachea midline Neck mass: No Chest Chest palpation & inspection: normal inspection of the chest Resp Effort & Inspection: normal respiratory effort, able to speak in complete sentences, symmetric chest movement and no cough Auscultation: clear to auscultation bilaterally Cardio Jugular venous pressure: no JVD Rhythm: Regular rhythm and rate GI: Inspection: normal to inspection Palpation: soft, no hepatosplenomegaly and nontender Auscultation: normal bowel sounds Musc Cervical Spine: normal cervical lordosis and cervical ROM normal Thoracic/Lumbar Spine: thoraco-lumbar ROM normal Skin General: Approximately 1 x 0.5 x 0.2 cm laceration above the left upper lip, bleeding controlled. Small abrasion to the top of the head. Larger abrasion to the left chest shoulder area. Neuro General: patient alert, oriented x3, moves all extremities Cranial Nerves: PERRL Speech: speech normal Extrem Other: WNL Psych Appearance: grossly normal Mental Status: WNL Mood: congruent mood Affect: normal affect Speech and Movement: speech and movement normal Attitude: cooperative Insight: Good Judgment: Good Objective <Tisha Cardona SUBSTATION INSPECTOR - Last Filed: 01/09/23 13:29> Labs 01/09/23 05:51 01/09/23 05:51 Labs: Laboratory Results - last 24 hr 01/09/23 01/09/23 05:51 05:51 Corrected WBC 6.4 Uncorrected WBC Count 6.4 RBC 4.46 Hgb 12.2 L Hct 37.8 L MCV 84.9 MCH 27.4 L MCHC 32.3 L RDW 14.3 Plt Count 185 MPV 8.8 Neut % (Auto) 54.8 Lymph % (Auto) 36.0 [place] % (Auto) 7.3 Eos % (Auto) 1.6 Baso % (Auto) 0.3 Nucleat RBC Rel Count 0.2 Neut # (Auto) 3.5 Lymph # (Auto) 2.3 [place] # (Auto) 0.5 Eos # (Auto) 0.1 Baso # (Auto) 0.0 PHA Creatinine Clear 186.10 Sodium 139 Potassium 3.8 Chloride 103 Carbon Dioxide 29.9 Anion Gap 9.9 BUN 12 Creatinine 0.75 Est GFR (CKD-EPI) > 60.0 Glucose 100 Calcium 8.9 Medications and Allergies Allergies and Active Meds: Allergies No Known Allergies Allergy (Verified 01/09/23 09:32) Active Medications Generic Name Dose Route Start Last Admin Trade Name Freq PRN Reason Stop Dose Admin Acetaminophen 500 mg 01/03/23 15:41 01/09/23 11:13 Acetaminophen 500 Mg Tablet PO 01/03/24 15:40 500 mg Q4H PRN Administration Pain Al Hydrox/Mg Hydrox/Simethicone 30 ml 01/03/23 15:41 Mag Hydrox/Al Hydrox/Simeth 30 Ml Udc PO 01/03/24 15:40 Q4H PRN Indigestion Amitriptyline HCl 10 mg 01/03/23 22:00 01/08/23 20:09 Amitriptyline 10 Mg Tablet PO 01/03/24 21:59 10 mg QHS LEANNA Administration Aspirin 81 mg 01/04/23 09:00 01/09/23 11:12 Aspirin 81 Mg Tablet.Dr PO 01/04/24 08:59 81 mg QAM LEANNA Administration Atorvastatin Calcium 10 mg 01/03/23 22:00 01/08/23 20:08 Atorvastatin 10 Mg Tablet PO 01/03/24 21:59 10 mg QHS LEANNA Administration Bisacodyl 10 mg 01/03/23 15:41 Bisacodyl 10 Mg Supp.Rect VA 01/03/24 15:40 DAILY PRN Constipation Carvedilol 12.5 mg 01/05/23 09:15 01/09/23 11:13 Carvedilol 12.5 Mg Tablet PO 01/05/24 09:14 12.5 mg Q12HR LEANNA Administration Docusate Sodium 100 mg 01/03/23 15:41 Docusate 100 Mg Capsule PO 01/03/24 15:40 BID PRN Constipation Docusate Sodium 283 mg 01/03/23 15:41 Docusate Enema 283 Mg/5 Ml Enema VA 01/03/24 15:40 DAILY PRN Constipation Lactulose 30 gm 01/03/23 15:41 Lactulose 20 Gm/30 Ml Udc PO 01/03/24 15:40 DAILY PRN Constipation Melatonin 3 mg 01/03/23 22:00 01/08/23 20:08 Melatonin 3 Mg Tablet PO 01/03/24 21:59 3 mg HS LEANNA Administration Ondansetron HCl 4 mg 01/03/23 15:40 01/08/23 20:09 Ondansetron Odt 4 Mg Tab.Rapdis PO 01/03/24 15:39 4 mg Q6HR PRN Administration Nausea And Vomiting Oxycodone HCl 5 mg 01/05/23 17:23 01/08/23 20:09 Oxycodone Ir 5 Mg Tablet PO 5 mg Q4HR PRN Administration Pain Polyethylene Glycol 17 gm 01/03/23 15:50 Polyethylene Glycol 3350 17 Gm Powd.Pack PO 01/03/24 15:49 DAILY PRN Constipation Senna/Docusate Sodium 2 tab 01/03/23 21:00 01/09/23 11:12 Sennosides/Docusate 8.6-50mg 1 Tab Tablet PO 01/03/24 20:59 2 tab BID LEANNA Administration Sennosides 2 tab 01/04/23 12:00 Sennosides 8.6 Mg Tablet PO 01/04/24 11:59 DAILY@12 PRN If no BM in 2 days Sodium Chloride 0 ml 01/03/23 15:41 Sodium Chloride 0.9 % 10 Ml Syringe IV-PUSH 01/03/24 15:40 PRN PRN Flush Assessment/Plan <Tisha Cardona APRN - Last Filed: 01/09/23 13:29> Assessment/Plan (1) S/P WINDOW GLASS CUTTER OFF shunt: Code(s): Z98.2 - Presence of cerebrospinal fluid drainage device Status: Acute (2) Hydrocephalus: Code(s): G91.9 - Hydrocephalus, unspecified Status: Acute (3) Cerebellar infarct: Code(s): I63.9 - Cerebral infarction, unspecified Status: Acute (4) Hypertension: Code(s): I10 - Essential (primary) hypertension Status: Acute (5) Obesity (BMI 35.0-39.9 without comorbidity): Code(s): E66.9 - Obesity, unspecified Status: Acute (6) Tachycardia: Code(s): R00.0 - Tachycardia, unspecified Status: Acute (7) Impaired mobility and activities of daily living: Code(s): Z74.09 - Other reduced mobility; Z78.9 - Other specified health status Status: Acute Plan 52-year-old male presenting to acute inpatient rehab with functional impairmentssecondary to left cerebellar CVA s/p WINDOW GLASS CUTTER OFF shunt placement due to development of hydrocephalus. Significant neurological deficits on assessment. He does complain of continued intermittent headaches, nausea/vomiting, dizziness/lightheadedness. * CT head yesterday afternoon due to continued dizziness/lightheadedness and some nausea. This was notable for slightly enlarged ventricles when compared to prior exam as well as chronic appearing changes in the posterior fossa and gliosis/encephalomalacia in the left hemisphere. Patient's symptoms resolved overnight. * Fall with a head injury this AM. Repeat CT without acute intracranial abnormality and no significant interval change from yesterday. Imaging results were faxed to patient's neurosurgeon in [place]. * Left upper lip laceration will be evaluated in the emergency department. * A.m. labs reviewed, unremarkable. * Working with therapy, improving Patient education Pressure ulcer prophylaxis; encourage mobilization, frequent postural changes, pressure-relief techniques DVT prophylaxis: Continue aspirin p.o. Encourage deep breathing exercise incentive spirometry. Monitor bladder. Toileting schedule. Continue current bladder management, with scans as needed and CIC if needed. Start bowel care program every day to obtain continence, prevent ileus. Maintain fall precautions Gait and balance retraining Functional training and self-care and home management, including activities of daily living and instrumental activities of daily living Provision of the necessary gait aids and functional adaptive equipment to enhance the patient's a functional spiritism Ensure adequate nutrition and hydration Sleep: No issues Pain: Continue current regimen Discharge planning: Home with partner and 7 to 10 days. I spent greater than 15 minutes for services, including [id number] encounter with the patient, discussion of the case, plan of care, and exam; and [id number] activities, such as reviewing pertinent learning consultant documentation, recent therapy notes, laboratory and radiology studies, and discussion of case with care team including physician, nursing, skilled nursing case manager, and therapists. More than 50 % of time was spent on patient/family counseling or coordination ofcare. <Srinivas Patricia MD - Last Filed: 01/09/23 14:58> Assessment/Plan (1) S/P WINDOW GLASS CUTTER OFF shunt: (2) Hydrocephalus: (3) Cerebellar infarct: (4) Hypertension: (5) Obesity (BMI 35.0-39.9 without comorbidity): (6) Tachycardia: (7) Impaired mobility and activities of daily living: Plan: I completed a substantive portion of this encounter, the medical decision makingportion of this note in its entirety, including Allied health note review, nursing note review, learning consultant note review, discussion with nursing and case management, and more than 50% of my time was spent on counseling and coordination of care, time spent 25 minutes Patient was personally seen by me, Dr. Patricia, on the day of encounter, reviewed the history and the relevant portions of the chart, including current orders, allied health and learning consultant notes, labs/imaging and performed coronado elements of exam and I formulated the plan of care and facilitated the medical decision making. Repeat head CT ordered after fall this morning with loss of balance. Unchanged from prior. Results sent to neurosurgery. Therapy can continue as tolerated. Reviewed at team meeting. Plan is for additional week with insurance especiallygiven issues with function over the last few days. Documented By: Tisha Cardona APRN 01/09/23 1 230 Signed By: <Electronically signed by RADHA Cardona> 01/09/23 1329 <Electronically signed by Srinivas Patricia MD> 01/09/23 1452 [facility] Work Phone: 1(356) 791-738107-31-2023 Progress note Author Srinivas Patricia [facility] January 08, 2023 1:09pm Note Date/Time January 08, 2023 10:5 0am [facility] [address] [place] [address] Physiatry(Rehab) Progress Note Signed Patient: Taras Hayward MR#: [id number] : 1970 Acct:[id number] Age/Sex: 52 / M Adm Date: 3 Loc: Room: [address] [place] [address] Type: ADM IN Attending Dr: Srinivas Patricia MD Copies to: ~ <Tisha Cardona APRN - Last Filed: 01/08/23 10:54> Date of Service: 01/08/2023 Subjective <Tisha Cardona APRN - Last Filed: 01/08/23 10:54> Subjective Narrative: Mr. Hayward is a 52 year old male presenting to inpatient rehab unit with functional impairments secondary to left cerebellar CVA. His past medical history is notable for obesity, hypertension, nephrolithiasis, gastric bypass surgery. Patient presented to [place] emergency department via EMS with complaints of dizziness, nausea and vomiting, vertigo, and headache. He stated the symptoms started suddenly when he was sitting in the chair after returning from work thatday. CTA head and neck demonstrated left vertebral artery occlusion near originwhich prompted a transfer to [facility] in [place]. MRI of the brain showed late acute infarct involving inferior portion of the left cerebellar hemisphere with mass effect on medulla and right midbrain shift. On 12/13/2022 patient became progressively lethargic. Repeat CT brain demonstrated worsening hydrocephalus with concern for increased intracranial pressure with progressive effacement of basal cisterns and possibly some early left-sided transtentorial herniation development. He underwent suboccipital decompressive craniotomy and C1 laminectomy with right frontal EVD placement. On 12/19/2022 the above EVD was removed and replaced on 12/25/2022 due to complaints of a headache with subsequent CT imaging demonstrating pseudocyst. On 12/30/2022 patient underwent a WINDOW GLASS CUTTER OFF shunt placement due to obstructive hydrocephalus and malignant edema, EVD removed at that time. She was recommended acute rehabilitation for strengthening. On admission patient is alert and oriented x3, answers questions appropriately. No significant neurological deficits noted on assessment. He feels slightly off balance and experiences occasional dizziness with movement/position changes and intermittent nausea, but it has improved dramatically over the past several days. He reports no change in vision, his speech is clear and fluent. He reports no cardiopulmonary complaints. Heart rate noted to be elevated in 100s on assessment. He does take carvedilol for hypertension and tachycardia. Prior to most recent hospitalization he was generally healthy and worked full- time at [employer]. Interval History: Seen and examined in his room while resting in bed. He feels nauseated and somewhat dizzy this morning. Reports mild headache. No new neurological deficits. His vitals are stable, BP within normal limits. He was medicated with some Zofran earlier. We will monitor symptoms closely. Repeat CT head if symptoms do not improve or worsen. Chronic conditions stable. Exam <Tisha AgudeloRADHA barcenas - Last Filed: 01/08/23 10:54> Physical Exam Vital Signs: Temp Pulse Resp BP Pulse Ox O2 Del Method 97.5 F L 71 16 123/78 94 L Room Air 01/08/23 05:00 01/08/23 09:33 01/08/23 05:00 01/08/23 09:33 01/08/23 09:33 01/08/23 09:33 Narrative: Const General: cooperative, comfortable, no acute distress, well developed Nutritional Appearance: Normal body habitus Orientation: alert, awake and oriented x3 Limitations: None HEENT Head: Multiple surgical incisions to the right cranium with sutures intact. No surrounding erythema or induration. Edges of the wounds are well approximated. No drainage noted. Ears: hearing grossly normal bilaterally Nose: external nose normal Face and sinus: normal facial exam Eyes General: appearance normal, both eyes and all related structures Pupils: PERRL EOM: EOM intact bilaterally Neck Neck: normal visual inspection, full ROM, no lymphadenopathy and trachea midline Neck mass: No Chest Chest palpation & inspection: normal inspection of the chest Resp Effort & Inspection: normal respiratory effort, able to speak in complete sentences, symmetric chest movement and no cough Auscultation: clear to auscultation bilaterally Cardio Jugular venous pressure: no JVD Rhythm: Regular rhythm and rate GI: Inspection: normal to inspection Palpation: soft, no hepatosplenomegaly and nontender Auscultation: normal bowel sounds Musc Cervical Spine: normal cervical lordosis and cervical ROM normal Thoracic/Lumbar Spine: thoraco-lumbar ROM normal Skin General: no rashes or lesions noted Neuro General: patient alert, oriented x3, moves all extremities Cranial Nerves: PERRL Speech: speech normal Extrem Other: WNL Psych Appearance: grossly normal Mental Status: WNL Mood: congruent mood Affect: normal affect Speech and Movement: speech and movement normal Attitude: cooperative Insight: Good Judgment: Good Objective <Tisha Cardona APRN - Last Filed: 01/08/23 10:54> Labs 01/04/23 05:13 01/04/23 05:13 Medications and Allergies Allergies and Active Meds: Allergies No Known Allergies Allergy (Verified 01/03/23 15:40) Active Medications Generic Name Dose Route Start Last Admin Trade Name Freq PRN Reason Stop Dose Admin Acetaminophen 500 mg 01/03/23 15:41 01/06/23 20:20 Acetaminophen 500 Mg Tablet PO 01/03/24 15:40 500 mg Q4H PRN Administration Pain Al Hydrox/Mg Hydrox/Simethicone 30 ml 01/03/23 15:41 Mag Hydrox/Al Hydrox/Simeth 30 Ml Udc PO 01/03/24 15:40 Q4H PRN Indigestion Amitriptyline HCl 10 mg 01/03/23 22:00 01/07/23 20:24 Amitriptyline 10 Mg Tablet PO 01/03/24 21:59 10 mg QHS LEANNA Administration Aspirin 81 mg 01/04/23 09:00 01/08/23 09:35 Aspirin 81 Mg Tablet. PO 01/04/24 08:59 81 mg QAM LEANNA Administration Atorvastatin Calcium 10 mg 01/03/23 22:00 01/07/23 20:24 Atorvastatin 10 Mg Tablet PO 01/03/24 21:59 10 mg QHS LEANNA Administration Bisacodyl 10 mg 01/03/23 15:41 Bisacodyl 10 Mg Supp.Rect VA 01/03/24 15:40 DAILY PRN Constipation Carvedilol 12.5 mg 01/05/23 09:15 01/08/23 09:35 Carvedilol 12.5 Mg Tablet PO 01/05/24 09:14 12.5 mg Q12HR LEANNA Administration Docusate Sodium 100 mg 01/03/23 15:41 Docusate 100 Mg Capsule PO 01/03/24 15:40 BID PRN Constipation Docusate Sodium 283 mg 01/03/23 15:41 Docusate Enema 283 Mg/5 Ml Enema VA 01/03/24 15:40 DAILY PRN Constipation Lactulose 30 gm 01/03/23 15:41 Lactulose 20 Gm/30 Ml Udc PO 01/03/24 15:40 DAILY PRN Constipation Melatonin 3 mg 01/03/23 22:00 01/07/23 20:24 Melatonin 3 Mg Tablet PO 01/03/24 21:59 3 mg HS LEANNA Administration Ondansetron HCl 4 mg 01/03/23 15:40 01/08/23 05:27 Ondansetron Odt 4 Mg Tab.Rapdis PO 01/03/24 15:39 4 mg Q6HR PRN Administration Nausea And Vomiting Oxycodone HCl 5 mg 01/05/23 17:23 01/08/23 09:35 Oxycodone Ir 5 Mg Tablet PO 5 mg Q4HR PRN Administration Pain Polyethylene Glycol 17 gm 01/03/23 15:50 Polyethylene Glycol 3350 17 Gm Powd.Pack PO 01/03/24 15:49 DAILY PRN Constipation Senna/Docusate Sodium 2 tab 01/03/23 21:00 01/08/23 09:35 Sennosides/Docusate 8.6-50mg 1 Tab Tablet PO 01/03/24 20:59 2 tab BID LEANNA Administration Sennosides 2 tab 01/04/23 12:00 Sennosides 8.6 Mg Tablet PO 01/04/24 11:59 DAILY@12 PRN If no BM in 2 days Sodium Chloride 0 ml 01/03/23 15:41 Sodium Chloride 0.9 % 10 Ml Syringe IV-PUSH 01/03/24 15:40 PRN PRN Flush Assessment/Plan <Tisha Cardona APRN - Last Filed: 01/08/23 10:54> Assessment/Plan (1) S/P WINDOW GLASS CUTTER OFF shunt: Code(s): Z98.2 - Presence of cerebrospinal fluid drainage device Status: Acute (2) Hydrocephalus: Code(s): G91.9 - Hydrocephalus, unspecified Status: Acute (3) Cerebellar infarct: Code(s): I63.9 - Cerebral infarction, unspecified Status: Acute (4) Hypertension: Code(s): I10 - Essential (primary) hypertension Status: Acute (5) Obesity (BMI 35.0-39.9 without comorbidity): Code(s): E66.9 - Obesity, unspecified Status: Acute (6) Tachycardia: Code(s): R00.0 - Tachycardia, unspecified Status: Acute (7) Impaired mobility and activities of daily living: Code(s): Z74.09 - Other reduced mobility; Z78.9 - Other specified health status Status: Acute Plan 52-year-old male presenting to acute inpatient rehab with functional impairmentssecondary to left cerebellar CVA s/p WINDOW GLASS CUTTER OFF shunt placement due to development of hydrocephalus. Significant neurological deficits on assessment. He does complain of continued intermittent headaches, nausea/vomiting, dizziness/lightheadedness. * Headache, nausea and dizziness this morning. Okay to medicate for symptoms and monitor for now. Repeat CT head if symptoms warrant. * Vitals are stable. BP and heart rate within normal limits with increased Coreg dose. * Repeat labs tomorrow morning * Working with therapy, improving Patient education Pressure ulcer prophylaxis; encourage mobilization, frequent postural changes, pressure-relief techniques DVT prophylaxis: Continue aspirin p.o. Encourage deep breathing exercise incentive spirometry. Monitor bladder. Toileting schedule. Continue current bladder management, with scans as needed and CIC if needed. Start bowel care program every day to obtain continence, prevent ileus. Maintain fall precautions Gait and balance retraining Functional training and self-care and home management, including activities of daily living and instrumental activities of daily living Provision of the necessary gait aids and functional adaptive equipment to enhance the patient's a functional spiritism Ensure adequate nutrition and hydration Sleep: No issues Pain: Continue current regimen Discharge planning: Home with partner and 7 to 10 days. I spent greater than 15 minutes for services, including rijv-go-oeei encounter with the patient, discussion of the case, plan of care, and exam; and [id number] activities, such as reviewing pertinent learning consultant documentation, recent therapy notes, laboratory and radiology studies, and discussion of case with care team including physician, nursing, skilled nursing case manager, and therapists. More than 50 % of time was spent on patient/family counseling or coordination ofcare. <Srinivas Patricia MD - Last Filed: 01/08/23 13:09> Assessment/Plan (1) S/P WINDOW GLASS CUTTER OFF shunt: (2) Hydrocephalus: (3) Cerebellar infarct: (4) Hypertension: (5) Obesity (BMI 35.0-39.9 without comorbidity): (6) Tachycardia: (7) Impaired mobility and activities of daily living: Plan: I completed a substantive portion of this encounter, the medical decision makingportion of this note in its entirety, including Allied health note review, nursing note review, learning consultant note review, discussion with nursing and case management, and more than 50% of my time was spent on counseling and coordination of care, time spent 20 minutes Patient was personally seen by me, Dr. Patricia, on the day of encounter, reviewed the history and the relevant portions of the chart, including current orders, allied health and learning consultant notes, labs/imaging and performed coronado elements of exam and I formulated the plan of care and facilitated the medical decision making. CT head ordered for interval imaging given history of cerebellar infarct and hydrocephalus, to ensure no worsening. Otherwise agree with symptom management as above. Not on formal therapy. Continue activity as tolerated. Documented By: Tisha Cardona APRN 01/08/23 1 047 Signed By: <Electronically signed by RADHA Cardona> 01/08/23 1054 <Electronically signed by Srinivas Patricia MD> 01/08/23 9459 [facility] Work Phone: 1(301) 627-343507-28-2023 Progress note Author Srinivas Patricia [facility] January 05, 2023 2:39pm Note Date/Time January 05, 2023 2:39 pm [facility] [address] [place] [address] Physiatry(Rehab) Progress Note Signed Patient: Taras Hayward MR#: [id number] : 1970 Acct:[id number] Age/Sex: 52 / M Adm Date: 3 Loc: Room: 8V1610-6 Type: ADM IN Attending Dr: Srinivas Patricia MD Copies to: ~ Date of Service: 01/05/2023 Subjective Subjective Narrative: Mr. Hayward is a 52 year old male presenting to inpatient rehab unit with functional impairments secondary to left cerebellar CVA. His past medical history is notable for obesity, hypertension, nephrolithiasis, gastric bypass surgery. Patient presented to [place] emergency department via EMS with complaints of dizziness, nausea and vomiting, vertigo, and headache. He stated the symptoms started suddenly when he was sitting in the chair after returning from work thatday. CTA head and neck demonstrated left vertebral artery occlusion near originwhich prompted a transfer to [facility] in [place]. MRI of the brain showed late acute infarct involving inferior portion of the left cerebellar hemisphere with mass effect on medulla and right midbrain shift. On 12/13/2022 patient became progressively lethargic. Repeat CT brain demonstrated worsening hydrocephalus with concern for increased intracranial pressure with progressive effacement of basal cisterns and possibly some early left-sided transtentorial herniation development. He underwent suboccipital decompressive craniotomy and C1 laminectomy with right frontal EVD placement. On 12/19/2022 the above EVD was removed and replaced on 12/25/2022 due to complaints of a headache with subsequent CT imaging demonstrating pseudocyst. On 12/30/2022 patient underwent a WINDOW GLASS CUTTER OFF shunt placement due to obstructive hydrocephalus and malignant edema, EVD removed at that time. She was recommended acute rehabilitation for strengthening. On admission patient is alert and oriented x3, answers questions appropriately. No significant neurological deficits noted on assessment. He feels slightly off balance and experiences occasional dizziness with movement/position changes and intermittent nausea, but it has improved dramatically over the past several days. He reports no change in vision, his speech is clear and fluent. He reports no cardiopulmonary complaints. Heart rate noted to be elevated in 100s on assessment. He does take carvedilol for hypertension and tachycardia. Prior to most recent hospitalization he was generally healthy and worked full- time at [employer]. Interval History: No events overnight, tolerating therapy. Ambulatory 95' with walker. Notes mild headache, no dizziness/vision issues. Chronic conditions stable. Review of Systems Review of Systems All other systems reviewed & are negative unless noted below or in HPI Exam Physical Exam Vital Signs: Temp Pulse Resp BP Pulse Ox O2 Del Method 97.9 F 90 18 112/77 95 Room Air 01/05/23 13:44 01/05/23 13:44 01/05/23 05:00 01/05/23 13:44 01/05/23 13:44 01/05/23 13:44 Narrative: Const General: cooperative, comfortable, no acute distress, well developed Nutritional Appearance: Normal body habitus Orientation: alert, awake and oriented x3 Limitations: None HEENT Head: Multiple surgical incisions to the right cranium with sutures intact. No surrounding erythema or induration. Edges of the wounds are well approximated. No drainage noted. Ears: hearing grossly normal bilaterally Nose: external nose normal Face and sinus: normal facial exam Eyes General: appearance normal, both eyes and all related structures Pupils: PERRL EOM: EOM intact bilaterally Neck Neck: normal visual inspection, full ROM, no lymphadenopathy and trachea midline Neck mass: No Chest Chest palpation & inspection: normal inspection of the chest Resp Effort & Inspection: normal respiratory effort, able to speak in complete sentences, symmetric chest movement and no cough Auscultation: clear to auscultation bilaterally Cardio Jugular venous pressure: no JVD Rhythm: Regular rhythm and rate GI: Inspection: normal to inspection Palpation: soft, no hepatosplenomegaly and nontender Auscultation: normal bowel sounds Musc Cervical Spine: normal cervical lordosis and cervical ROM normal Thoracic/Lumbar Spine: thoraco-lumbar ROM normal Skin General: no rashes or lesions noted Neuro General: patient alert, oriented x3, moves all extremities Cranial Nerves: PERRL Speech: speech normal Extrem Other: WNL Psych Appearance: grossly normal Mental Status: WNL Mood: congruent mood Affect: normal affect Speech and Movement: speech and movement normal Attitude: cooperative Insight: Good Judgment: Good Objective Labs 01/04/23 05:13 01/04/23 05:13 Medications and Allergies Allergies and Active Meds: Allergies No Known Allergies Allergy (Verified 01/03/23 15:40) Active Medications Generic Name Dose Route Start Last Admin Trade Name Freq PRN Reason Stop Dose Admin Acetaminophen 500 mg 01/03/23 15:41 01/05/23 09:40 Acetaminophen 500 Mg Tablet PO 01/03/24 15:40 500 mg Q4H PRN Administration Pain Al Hydrox/Mg Hydrox/Simethicone 30 ml 01/03/23 15:41 Mag Hydrox/Al Hydrox/Simeth 30 Ml Udc PO 01/03/24 15:40 Q4H PRN Indigestion Amitriptyline HCl 10 mg 01/03/23 22:00 01/04/23 21:33 Amitriptyline 10 Mg Tablet PO 01/03/24 21:59 10 mg QHS LEANNA Administration Aspirin 81 mg 01/04/23 09:00 01/05/23 09:40 Aspirin 81 Mg Tablet.Dr PO 01/04/24 08:59 81 mg QAM LEANNA Administration Atorvastatin Calcium 10 mg 01/03/23 22:00 01/04/23 21:33 Atorvastatin 10 Mg Tablet PO 01/03/24 21:59 10 mg QHS LEANNA Administration Bisacodyl 10 mg 01/03/23 15:41 Bisacodyl 10 Mg Supp.Rect VA 01/03/24 15:40 DAILY PRN Constipation Carvedilol 12.5 mg 01/05/23 09:15 01/05/23 09:40 Carvedilol 12.5 Mg Tablet PO 01/05/24 09:14 12.5 mg Q12HR LEANNA Administration Docusate Sodium 100 mg 01/03/23 15:41 Docusate 100 Mg Capsule PO 01/03/24 15:40 BID PRN Constipation Docusate Sodium 283 mg 01/03/23 15:41 Docusate Enema 283 Mg/5 Ml Enema VA 01/03/24 15:40 DAILY PRN Constipation Lactulose 30 gm 01/03/23 15:41 Lactulose 20 Gm/30 Ml Udc PO 01/03/24 15:40 DAILY PRN Constipation Melatonin 3 mg 01/03/23 22:00 01/04/23 21:33 Melatonin 3 Mg Tablet PO 01/03/24 21:59 3 mg HS LEANNA Administration Ondansetron HCl 4 mg 01/03/23 15:40 01/04/23 21:33 Ondansetron Odt 4 Mg Tab.Rapdis PO 01/03/24 15:39 4 mg Q6HR PRN Administration Nausea And Vomiting Polyethylene Glycol 17 gm 01/03/23 15:50 Polyethylene Glycol 3350 17 Gm Powd.Pack PO 01/03/24 15:49 DAILY PRN Constipation Senna/Docusate Sodium 2 tab 01/03/23 21:00 01/05/23 09:40 Sennosides/Docusate 8.6-50mg 1 Tab Tablet PO 01/03/24 20:59 2 tab BID LEANNA Administration Sennosides 2 tab 01/04/23 12:00 Sennosides 8.6 Mg Tablet PO 01/04/24 11:59 DAILY@12 PRN If no BM in 2 days Sodium Chloride 0 ml 01/03/23 15:41 Sodium Chloride 0.9 % 10 Ml Syringe IV-PUSH 01/03/24 15:40 PRN PRN Flush Assessment/Plan Assessment/Plan (1) S/P WINDOW GLASS CUTTER OFF shunt: Code(s): Z98.2 - Presence of cerebrospinal fluid drainage device Status: Acute (2) Hydrocephalus: Code(s): G91.9 - Hydrocephalus, unspecified Status: Acute (3) Cerebellar infarct: Code(s): I63.9 - Cerebral infarction, unspecified Status: Acute (4) Hypertension: Code(s): I10 - Essential (primary) hypertension Status: Acute (5) Obesity (BMI 35.0-39.9 without comorbidity): Code(s): E66.9 - Obesity, unspecified Status: Acute (6) Tachycardia: Code(s): R00.0 - Tachycardia, unspecified Status: Acute (7) Impaired mobility and activities of daily living: Code(s): Z74.09 - Other reduced mobility; Z78.9 - Other specified health status Status: Acute Plan 52-year-old male presenting to acute inpatient rehab with functional impairmentssecondary to left cerebellar CVA s/p WINDOW GLASS CUTTER OFF shunt placement due to development of hydrocephalus. Significant neurological deficits on assessment. He does complain of continued intermittent headaches, nausea/vomiting, dizziness/lightheadedness. * Increase Coreg and titrate * Progressing towards goals * Ambulatory 95' with walker Patient education Pressure ulcer prophylaxis; encourage mobilization, frequent postural changes, pressure-relief techniques DVT prophylaxis: Continue aspirin p.o. Encourage deep breathing exercise incentive spirometry. Monitor bladder. Toileting schedule. Continue current bladder management, with scans as needed and CIC if needed. Start bowel care program every day to obtain continence, prevent ileus. Maintain fall precautions Gait and balance retraining Functional training and self-care and home management, including activities of daily living and instrumental activities of daily living Provision of the necessary gait aids and functional adaptive equipment to enhance the patient's a functional spiritism Ensure adequate nutrition and hydration Sleep: No issues Pain: Continue current regimen Discharge planning: Home with partner and 7 to 10 days. Plan: I completed a substantive portion of this encounter, the medical decision makingportion of this note in its entirety, including Allied health note review, nursing note review, learning consultant note review, discussion with nursing and case management, and more than 50% of my time was spent on counseling and coordination of care, time spent 65 minutes Patient was personally seen by me, Dr. Patricia, on the day of encounter, reviewed the history and the relevant portions of the chart, including current orders, allied health and learning consultant notes, labs/imaging and performed coronado elements of exam and I formulated the plan of care and facilitated the medical decision making. Documented By: Srinivas Patricia MD 01/05/23 1438 Signed By: <Electronically signed by Srinivas Patricia MD> 01/05/23 1439 [facility] Work Phone: [phone]) 340-574107-28-2023 History and physical note Author Srinivas Patricia [facility] January 05, 2023 10:29am Note Date/Time January 04, 2023 10:0 8am [facility] [address] [place] [address] Physiatry (Rehab) H&P Signed Patient: Taras Hayward MR#: [id number] : 1970 Acct:[id number] Age/Sex: 52 / M Adm Date: 3 Loc: Room: 1D2452-4 Type: ADM IN Attending Dr: Srinivas Patricia MD Copies to: RADHA Chamberlain MD NO FAMILY PHYSICIAN~ <Tisha Cardona APRN - Last Filed: 01/04/23 11:34> Date of Service: 01/04/2023 HPI <Tisha Cardona APRN - Last Filed: 01/04/23 11:34> The patient was seen and examined on: 01/04/23 History of Present Illness: Mr. Hayward is a 52 year old male presenting to inpatient rehab unit with functional impairments secondary to left cerebellar CVA. His past medical history is notable for obesity, hypertension, nephrolithiasis, gastric bypass surgery. Patient presented to [place] emergency department via EMS with complaints of dizziness, nausea and vomiting, vertigo, and headache. He stated the symptoms started suddenly when he was sitting in the chair after returning from work thatday. CTA head and neck demonstrated left vertebral artery occlusion near originwhich prompted a transfer to [facility] in [place]. MRI of the brain showed late acute infarct involving inferior portion of the left cerebellar hemisphere with mass effect on medulla and right midbrain shift. On 12/13/2022 patient became progressively lethargic. Repeat CT brain demonstrated worsening hydrocephalus with concern for increased intracranial pressure with progressive effacement of basal cisterns and possibly some early left-sided transtentorial herniation development. He underwent suboccipital decompressive craniotomy and C1 laminectomy with right frontal EVD placement. On 12/19/2022 the above EVD was removed and replaced on 12/25/2022 due to complaints of a headache with subsequent CT imaging demonstrating pseudocyst. On 12/30/2022 patient underwent a WINDOW GLASS CUTTER OFF shunt placement due to obstructive hydrocephalus and malignant edema, EVD removed at that time. She was recommended acute rehabilitation for strengthening. On admission patient is alert and oriented x3, answers questions appropriately. No significant neurological deficits noted on assessment. He feels slightly off balance and experiences occasional dizziness with movement/position changes and intermittent nausea, but it has improved dramatically over the past several days. He reports no change in vision, his speech is clear and fluent. He reports no cardiopulmonary complaints. Heart rate noted to be elevated in 100s on assessment. He does take carvedilol for hypertension and tachycardia. Prior to most recent hospitalization he was generally healthy and worked full- time at [employer]. <Srinivas Patricia MD - Last Filed: 01/05/23 10:29> Etiologic Diagnosis/Impairment Group: Stroke Chief complaint: weakness and difficulty functioning History of Present Illness: Mr. Hayward is a 52 year old male presenting to inpatient rehab unit with functional impairments secondary to left cerebellar CVA. His past medical history is notable for obesity, hypertension, nephrolithiasis, gastric bypass surgery. Patient presented to [place] emergency department via EMS with complaints of dizziness, nausea and vomiting, vertigo, and headache. He stated the symptoms started suddenly when he was sitting in the chair after returning from work thatday. CTA head and neck demonstrated left vertebral artery occlusion near originwhich prompted a transfer to [facility] in [place]. MRI of the brain showed late acute infarct involving inferior portion of the left cerebellar hemisphere with mass effect on medulla and right midbrain shift. On 12/13/2022 patient became progressively lethargic. Repeat CT brain demonstrated worsening hydrocephalus with concern for increased intracranial pressure with progressive effacement of basal cisterns and possibly some early left-sided transtentorial herniation development. He underwent suboccipital decompressive craniotomy and C1 laminectomy with right frontal EVD placement. On 12/19/2022 the above EVD was removed and replaced on 12/25/2022 due to complaints of a headache with subsequent CT imaging demonstrating pseudocyst. On 12/30/2022 patient underwent a WINDOW GLASS CUTTER OFF shunt placement due to obstructive hydrocephalus and malignant edema, EVD removed at that time. She was recommended acute rehabilitation for strengthening. On admission patient is alert and oriented x3, answers questions appropriately. No significant neurological deficits noted on assessment. He feels slightly off balance and experiences occasional dizziness with movement/position changes and intermittent nausea, but it has improved dramatically over the past several days. He reports no change in vision, his speech is clear and fluent. He reports no cardiopulmonary complaints. Heart rate noted to be elevated in 100s on assessment. He does take carvedilol for hypertension and tachycardia. Prior to most recent hospitalization he was generally healthy and worked full- time at [employer]. PMFSH <Tisha Cardona APRN - Last Filed: 01/04/23 11:34> Vaccinated for COVID-19?: Yes Social History Smoking Status: Former smoker Substance Use Type: None <Srinivas Patricia MD - Last Filed: 01/05/23 10:29> Attestation Statement: The following information was validated with the patient. Review of Systems <Tisha Cardona APRN - Last Filed: 01/04/23 11:34> Review of Systems All other systems reviewed & are negative unless noted below or in HPI Meds <Tisha Cardona APRN - Last Filed: 01/04/23 11:34> Medications and Allergies Allergies No Known Allergies Allergy (Verified 01/03/23 15:40) Home and Active Meds: Home Medications amitriptyline 10 mg tablet 10 mg PO QHS 01/03/23 [History Confirmed 01/03/23] aspirin 81 mg tablet,delayed release 81 mg PO QAM 01/03/23 [History Confirmed 01/03/23] atorvastatin 10 mg tablet 10 mg PO QHS 01/03/23 [History Confirmed 01/03/23] carvedilol 6.25 mg tablet (Coreg) 6.25 mg PO Q12H 01/03/23 [History Confirmed 01/03/23] melatonin 3 mg tablet 3 mg PO HS 01/03/23 [History Confirmed 01/03/23] polyethylene glycol 3350 17 gram oral powder packet (Miralax) 17 g PO DAILY PRN Constipation 01/03/23 [History Confirmed 01/03/23] semaglutide 0.25 mg or 0.5 mg (2 mg/3 mL) subcutaneous pen injector (Ozempic) 0.5 mg subcut QWEEK 01/03/23 [History Confirmed 01/03/23] sennosides 8.6 mg-docusate sodium 50 mg tablet 2 tab-cap PO BID 01/03/23 [History Confirmed 01/03/23] Active Medications Acetaminophen (Acetaminophen 500 Mg Tablet) 500 mg PO Q4H PRN PRN Reason: Pain Stop: 01/03/24 15:40 Al Hydrox/Mg Hydrox/Simethicone (Mag Hydrox/Al Hydrox/Simeth 30 Ml Udc) 30 ml PO Q4H PRN PRN Reason: Indigestion Stop: 01/03/24 15:40 Amitriptyline HCl (Amitriptyline 10 Mg Tablet) 10 mg PO QHS [facility] Stop: 01/03/24 21:59 Last Admin: 01/03/23 21:15 Dose: 10 mg Aspirin (Aspirin 81 Mg Tablet.Dr) [facility] Stop: 01/04/24 08:59 Last Admin: 01/04/23 08:15 Dose: 81 mg Atorvastatin Calcium (Atorvastatin 10 Mg Tablet) 10 mg PO QHS [facility] Stop: 01/03/24 21:59 Last Admin: 01/03/23 21:15 Dose: 10 mg Bisacodyl (Bisacodyl 10 Mg Supp.Rect) 10 mg VA DAILY PRN PRN Reason: Constipation Stop: 01/03/24 15:40 Carvedilol (Carvedilol 6.25 Mg Tablet) 6.25 mg PO Q12H [facility] Stop: 01/03/24 15:59 Last Admin: 01/04/23 05:25 Dose: 6.25 mg Docusate Sodium (Docusate 100 Mg Capsule) 100 mg PO BID PRN PRN Reason: Constipation Stop: 01/03/24 15:40 Docusate Sodium (Docusate Enema 283 Mg/5 Ml Enema) 283 mg VA DAILY PRN PRN Reason: Constipation Stop: 01/03/24 15:40 Lactulose (Lactulose 20 Gm/30 Ml Udc) 30 gm PO DAILY PRN PRN Reason: Constipation Stop: 01/03/24 15:40 Melatonin (Melatonin 3 Mg Tablet) 3 mg PO HS [facility] Stop: 01/03/24 21:59 Last Admin: 01/03/23 21:15 Dose: 3 mg Ondansetron HCl (Ondansetron Odt 4 Mg Tab.Rapdis) 4 mg PO Q6HR PRN PRN Reason: Nausea And Vomiting Stop: 01/03/24 15:39 Last Admin: 01/04/23 06:16 Dose: 4 mg Polyethylene Glycol (Polyethylene Glycol 3350 17 Gm Powd.Pack) 17 gm PO DAILY PRN PRN Reason: Constipation Stop: 01/03/24 15:49 Senna/Docusate Sodium (Sennosides/Docusate 8.6-50mg 1 Tab Tablet) 2 tab PO BID LEANNA Stop: 01/03/24 20:59 Last Admin: 01/04/23 08:15 Dose: 2 tab Sennosides (Sennosides 8.6 Mg Tablet) 2 tab PO DAILY@12 PRN PRN Reason: If no BM in 2 days Stop: 01/04/24 11:59 Sodium Chloride (Sodium Chloride 0.9 % 10 Ml Syringe) 0 ml IV-PUSH PRN PRN PRN Reason: Flush Stop: 01/03/24 15:40 Exam <Tisha Cardona, RADHA - Last Filed: 01/04/23 11:34> Physical Exam Vital Signs: Temp Pulse Resp BP Pulse Ox O2 Del Method 98.1 F 79 16 112/72 95 Room Air 01/04/23 05:28 01/04/23 05:28 01/04/23 05:28 01/04/23 05:28 01/04/23 05:28 01/04/23 05:28 Narrative: Const General: cooperative, comfortable, no acute distress, well developed Nutritional Appearance: Normal body habitus Orientation: alert, awake and oriented x3 Limitations: None HEENT Head: Multiple surgical incisions to the right cranium with sutures intact. No surrounding erythema or induration. Edges of the wounds are well approximated. No drainage noted. Ears: hearing grossly normal bilaterally Nose: external nose normal Face and sinus: normal facial exam Eyes General: appearance normal, both eyes and all related structures Pupils: PERRL EOM: EOM intact bilaterally Neck Neck: normal visual inspection, full ROM, no lymphadenopathy and trachea midline Neck mass: No Chest Chest palpation & inspection: normal inspection of the chest Resp Effort & Inspection: normal respiratory effort, able to speak in complete sentences, symmetric chest movement and no cough Auscultation: clear to auscultation bilaterally Cardio Jugular venous pressure: no JVD Rhythm: Regular rhythm and rate GI: Inspection: normal to inspection Palpation: soft, no hepatosplenomegaly and nontender Auscultation: normal bowel sounds Musc Cervical Spine: normal cervical lordosis and cervical ROM normal Thoracic/Lumbar Spine: thoraco-lumbar ROM normal Skin General: no rashes or lesions noted Neuro General: patient alert, oriented x3, moves all extremities Cranial Nerves: PERRL Speech: speech normal Extrem Other: WNL Psych Appearance: grossly normal Mental Status: WNL Mood: congruent mood Affect: normal affect Speech and Movement: speech and movement normal Attitude: cooperative Insight: Good Judgment: Good Results <Tisha Cardona APRN - Last Filed: 01/04/23 11:34> Labs Labs: Laboratory Results - last 24 hr 01/04/23 01/04/23 05:13 05:13 Corrected WBC 8.2 Uncorrected WBC Count 8.2 RBC 4.32 Hgb 12.0 L Hct 36.7 L MCV 85.1 MCH 27.7 MCHC 32.6 RDW 14.3 Plt Count 259 MPV 8.3 Neut % (Auto) 55.0 Lymph % (Auto) 33.7 [place] % (Auto) 9.3 Eos % (Auto) 1.6 Baso % (Auto) 0.4 Nucleat RBC Rel Count 0.1 Neut # (Auto) 4.5 Lymph # (Auto) 2.8 [place] # (Auto) 0.8 Eos # (Auto) 0.1 Baso # (Auto) 0.0 PHA Creatinine Clear 150.03 Sodium 138 Potassium 3.7 Chloride 103 Carbon Dioxide 27.3 Anion Gap 11.4 BUN 9 Creatinine 0.89 Est GFR (CKD-EPI) > 60.0 Glucose 101 H Calcium 8.7 Total Bilirubin 0.6 AST 19 ALT 18 Alkaline Phosphatase 64 Total Protein 6.8 Albumin 3.4 L Globulin 3.4 Albumin/Globulin Ratio 1.0 Prealbumin 12.5 L Additional Results Results Comment: I reviewed clinical lab tests, radiology reports and obtained and summated medical records and have ordered follow up lab tests and imaging studies as needed for rehabilitation care. Functional Status <Tisha Cardona APRN - Last Filed: 01/04/23 11:34> Prior Level of Function Narrative: Previously independent Current Level of Function Narrative: Supervision for bed mobility and transfers, mod assist for upper body dressing, max assist for lower body dressing. Ambulatory 15 feet x 2 with a walker and supervision from therapy <Srinivas Patricia MD - Last Filed: 01/05/23 10:29> Individualized Plan of Care Plan of Care: Individualized Overall Plan of Care: Admit Date/Time: January 03, 2023 Expected LOS: 2 weeks Expected Discharge Destination: Home Rehabilitation [facility]: 01.2 Primary Diagnosis: Left cerebellar stroke To have patient become more independent and to return home. Medical/ Functional Prognosis: Good Anticipated Functional Outcomes/Goals and Interventions: 1.Therapy Functional Outcome/Goal: Anticipate independent for bed mobility Anticipated interventions: Physician management, PT, OT, BISQUE FINISHER, , Dietitian, RehabNursing, Case management 2. Therapy Functional Outcome/Goal: Anticipate independent for transfers Anticipated interventions: Physician management, PT, OT, BISQUE FINISHER, Case management, Dietitian, Rehab Nursing 3. Therapy Functional Outcome/Goal: Anticipate independent for ambulation Anticipated interventions: Physician management, PT, OT, BISQUE FINISHER Case management, Dietitian, Rehab Nursing 4.Therapy Functional Outcome/Goal: Anticipate independent for self-care Anticipated interventions: Physician management, PT, OT, BISQUE FINISHER, Case management, Dietitian, Rehab Nursing 5.Therapy Functional Outcome/Goal: Anticipate independent for functional cognition and swallowing Anticipated interventions: Physician management, PT, OT, BISQUE FINISHER, Case management, Dietitian, Rehab Nursing Required Therapy PT: 1 hour per day at least 5 days per week with additional therapy on as neededbasis. Comments: PT to improve pt's strength, endurance, bed mobility, transfers (sit-stand), standing balance, gait quality on level surfaces and stairs, coordination and functional ADL skills. Will also work to improve pt's safety awareness during transfers and ambulation. OT: 1 hour per day at least 5 days per week with additional therapy on as neededbasis. Comments: OT for basic ADL re-training (bathing, dressing, toileting, continence, grooming, feeding, transferring), to increase activity tolerance andfunctional mobility and to evaluate for adaptive and assistive devices. Will work to improve pt's endurance and educate pt on fall prevention and energy conservation techniques-pacing strategies and proper breathing techniques duringfunctional tasks. Speech/Language - 1 hour per day at least 5 days per week with additional therapy on as needed basis. Comments: BISQUE FINISHER to evaluate and treat patient?s cognition, language and communication skills, assess swallow function. Other: Dietitian, Rehab nursing, Wound, P&O, Neuropsychology as needed RATIONALE FOR IRF ADMISSION: Patient has both medical and functional complexities that require 24 hour daily monitoring and intervention from Last [facility]immer as well as other consulting physicians including internal medicine as well as 24 hour daily male impersonator nursing - for medical safe / optimal management. Patient requires interdisciplinary therapy team rehabilitation care including OT, PT, BISQUE FINISHER, SW, Psychology, Rehab Nursing, requires and can tolerate at least 3 hours of daily OT and PT therapy at least 5 days weekly. The following medical conditions significantly impact the rehabilitation process andare being addressed daily and can not be managed at home or in a lesser intense medical setting: Refer to above problem oriented plan of care Assessment/Plan <Tisha Cardona, SUBSTATION INSPECTOR - Last Filed: 01/04/23 11:34> (1) S/P WINDOW GLASS CUTTER OFF shunt: Code(s): Z98.2 - Presence of cerebrospinal fluid drainage device Status: Acute (2) Hydrocephalus: Code(s): G91.9 - Hydrocephalus, unspecified Status: Acute (3) Cerebellar infarct: Code(s): I63.9 - Cerebral infarction, unspecified Status: Acute (4) Hypertension: Code(s): I10 - Essential (primary) hypertension Status: Acute (5) Obesity (BMI 35.0-39.9 without comorbidity): Code(s): E66.9 - Obesity, unspecified Status: Acute (6) Tachycardia: Code(s): R00.0 - Tachycardia, unspecified Status: Acute (7) Impaired mobility and activities of daily living: Code(s): Z74.09 - Other reduced mobility; Z78.9 - Other specified health status Status: Acute Plan 52-year-old male presenting to acute inpatient rehab with functional impairmentssecondary to left cerebellar CVA s/p WINDOW GLASS CUTTER OFF shunt placement due to development of hydrocephalus. Significant neurological deficits on assessment. He does complain of continued intermittent headaches, nausea/vomiting, dizziness/lightheadedness. * Continue statin and aspirin * Monitor surgical incisions for any signs of infection. * May have Zofran as needed for nausea/vomiting * EKG obtained due to tachycardia. Demonstrates sinus tach with rate of 111. Patient is asymptomatic and denies palpitations or chest pain. Home carvedilol was reduced to 6.25 mg twice daily from 25 mg bid at [facility] due to hypotension. Will monitor for now, may need the dose titrated up if tachycardia persists. Patient education Pressure ulcer prophylaxis; encourage mobilization, frequent postural changes, pressure-relief techniques DVT prophylaxis: Continue aspirin p.o. Encourage deep breathing exercise incentive spirometry. Monitor bladder. Toileting schedule. Continue current bladder management, with scans as needed and CIC if needed. Start bowel care program every day to obtain continence, prevent ileus. Maintain fall precautions Gait and balance retraining Functional training and self-care and home management, including activities of daily living and instrumental activities of daily living Provision of the necessary gait aids and functional adaptive equipment to enhance the patient's a functional spiritism Ensure adequate nutrition and hydration Sleep: No issues Pain: Continue current regimen Discharge planning: Home with partner and 7 to 10 days. I spent greater than 45 minutes for services, including [id number] encounter with the patient, discussion of the case, plan of care, and exam; and [id number] activities, such as reviewing pertinent learning consultant documentation, recent therapy notes, laboratory and radiology studies, and discussion of case with care team including physician, nursing, skilled nursing case manager, and therapists. More than 50 % of time was spent on patient/family counseling or coordination ofcare. <Srinivas Patricia MD - Last Filed: 01/05/23 10:29> (1) S/P WINDOW GLASS CUTTER OFF shunt: (2) Hydrocephalus: (3) Cerebellar infarct: (4) Hypertension: (5) Obesity (BMI 35.0-39.9 without comorbidity): (6) Tachycardia: (7) Impaired mobility and activities of daily living: Plan: I completed a substantive portion of this encounter, the medical decision makingportion of this note in its entirety, including Allied health note review, nursing note review, learning consultant note review, discussion with nursing and case management, and more than 50% of my time was spent on counseling and coordination of care, time spent 65 minutes Patient was personally seen by me, Dr. Patricia, on the day of encounter, reviewed the history and the relevant portions of the chart, including current orders, allied health and learning consultant notes, labs/imaging and performed coronado elements of exam and I formulated the plan of care and facilitated the medical decision making. Documented By: Tisha Cardona APRN 01/04/23 1 007 Signed By: <Electronically signed by RADHA Cardona> 01/04/23 1134 <Electronically signed by Srinivas Patricia MD> 01/05/23 1029 [facility] Work Phone: [phone]) 992-139904-10-2023 Evaluation note* Encounter Date Diagnosis Assessment Notes Treatment Notes Treatment Clinical Notes Sep, Essential hypertension (ICD-10 - I10) [facility] Other 03-23-2023 Evaluation note* Encounter Date Diagnosis Assessment Notes Treatment Notes Treatment Clinical Notes Aug, Essential hypertension (ICD-10 - I10) This patient is instructed to consume a healthy, low-fat, low-salt diet. They are also encouraged to continue exercise to achieve/maintain a normal BMI. Aug, Tachycardia (ICD-10 - R00.0) Avoid stimulants, hydrate. Increasing Coreg to 25mg bid has lowered his resting HR into the 80s BP stable Aug, IFG (impaired fasting glucose) (ICD-10 - R73.01) This patient is following a comprehensive diabetic treatment plan. They are checking their feet daily for calluses and nonhealing ulcers. They are being seen for yearly dilated eye examinations. Goals: SBP less than 130, LDL less than 100, FBS less than 140, AC and A1C less than 7%. They are checking their BS daily, will which are reviewed at the office visit. Increase Ozempic to 2mg weekly Aug, Bariatric surgery status (ICD-10 - Z98.84) Monitor vitamin levels. [facility] Other 02-27-2023 Evaluation note* Encounter Date Diagnosis Assessment Notes Treatment Notes Treatment Clinical Notes Jul, Heart palpitations (ICD-10 - R00.2) [facility] Other 02-08-2023 Hospital Discharge instructions Patient Education 07/19/2022 15:38:46 Kidney Stones, [id number] Kidney Stones Kidney stones are rock-like masses that form inside of the kidneys. Kidneys are organs that make pee (urine). A kidney stone may move into other parts of the urinary tract, including: The tubes that connect the kidneys to the bladder (ureters). The bladder. The tube that carries urine out of the body (urethra). Kidney stones can cause very bad pain and can block the flow of pee. The stone usually leaves your body (passes) through your pee. You may need to have a doctor take out the stone. What are the causes? Kidney stones may be caused by: A condition in which certain glands make too much parathyroid hormone (primary hyperparathyroidism). A buildup of a type of crystals in the bladder made of a chemical called uric acid. The body makes uric acid when you eat certain foods. Narrowing (stricture) of one or both of the ureters. A kidney blockage that you were born with. Past surgery on the kidney or the ureters, such as gastric bypass surgery. What increases the risk? You are more likely to develop this condition if: You have had a kidney stone in the past. You have a family history of kidney stones. You do not drink enough water. You eat a diet that is high in protein, salt (sodium), or sugar. You are overweight or very overweight (obese). What are the signs or symptoms? Symptoms of a kidney stone may include: Pain in the side of the belly, right below the ribs (flank pain). Pain usually spreads (radiates) to the groin. Needing to pee often or right away (urgently). Pain when going pee (urinating). Blood in your pee (hematuria). Feeling like you may vomit (nauseous). Vomiting. Fever and chills. How is this treated? Treatment depends on the size, location, and makeup of the kidney stones. The stones will often pass out of the body through peeing. You may need to: Drink more fluid to help pass the stone. In some cases, you may be given fluids through an IV tube put into one of your veins at the hospital. Take medicine for pain. Make changes in your diet to help keep kidney stones from coming back. Sometimes, medical procedures are needed to remove a kidney stone. This may involve: A procedure to break up kidney stones using a beam of light (laser) or shock waves. Surgery to remove the kidney stones. Follow these instructions at home: Medicines Take [id number] and prescription medicines only as told by your doctor. Ask your doctor if the medicine prescribed to you requires you to avoid driving or using heavy machinery. Eating and drinking Drink enough fluid to keep your pee pale yellow. You may be told to drink at least 8 10 glasses of water each day. This will help you pass the stone. If told by your doctor, change your diet. This may include: ?Limiting how much salt you eat. ?Eating more fruits and vegetables. ?Limiting how much meat, poultry, fish, and eggs you eat. Follow instructions from your doctor about eating or drinking restrictions. General instructions Collect pee samples as told by your doctor. You may need to collect a pee sample: ?24 hours after a stone comes out. ?8 12 weeks after a stone comes out, and every 6 12 months after that. Strain your pee every time you pee (urinate), for as long as told. Use the strainer that your doctor recommends. Do not throw out the stone. Keep it so that it can be tested by your doctor. Keep all follow-up visits as told by your doctor. This is important. You may need follow-up tests. How is this prevented? To prevent another kidney stone: Drink enough fluid to keep your pee pale yellow. This is the best way to prevent kidney stones. Eat healthy foods. Avoid certain foods as told by your doctor. You may be told to eat less protein. Stay at a healthy weight. Where to find more information National Kidney Foundation (NKF): www.kidney.org [facility] (UCF): www.urologyhealth.org Contact a doctor if: You have pain that gets worse or does not get better with medicine. Get help right away if: You have a fever or chills. You get very bad pain. You get new pain in your belly (abdomen). You pass out (faint). You cannot pee. Summary Kidney stones are rock-like masses that form inside of the kidneys. Kidney stones can cause very bad pain and can block the flow of pee. The stones will often pass out of the body through peeing. Drink enough fluid to keep your pee pale yellow. This information is not intended to replace advice given to you by your health care provider. Make sure you discuss any questions you have with your health care provider. Document Released: 11/13/2008 Document Revised: 10/14/2019 Document Reviewed: 10/14/2019 [employer] Patient Education 2019 [employer]. Follow Up Care 05/31/2022 14:29:12 With:SLADE ALCALA, Konrad Jones, URL Address: [address] [place] [address] When: Unknown [facility] 12-22-2022 Note [id number]:[email or web address] [place] 05-31-2022 NoteCystoscopy with Stent Removal ? Voiding after the procedure: there may be some pain, burning, urgency, frequency and blood tingedurine following the procedure. These symptoms usually resolve within 2-5 days. Drink the amount of fluid it takes to keep the urine pink to yellow or clear in color. Drinking enough water and fluids will help to ease any discomfort after your procedure. ? If you are having problems that seem out of the ordinary, please call. ? If unable to contact your physician and you feel it is an emergency, go to the nearest emergency room or call 911 ? Diet ? you may resume your normal diet. ? Activity ? you may resume your normal activities ? Call if you have a fever over 100 degrees.[facility] [place] 05-31-2022 Hospital Discharge instructions Patient Education 05/31/2022 14:26:21 EU - Cystoscopy with Stent Removal Discharge Instructions (Custom) Cystoscopy with Stent Removal Voiding after the procedure: there may be some pain, burning, urgency, frequency and blood tinged urine following the procedure. These symptoms usually resolve within 2-5 days. Drink the amount of fluid it takes to keep the urine pink to yellow or clear in color. Drinking enough water and fluids will help to ease any discomfort after your procedure. If you are having problems that seem out of the ordinary, please call. If unable to contact your physician and you feel it is an emergency, go to the nearest emergency room or call 911 Diet you may resume your normal diet. Activity you may resume your normal activities Call if you have a fever over 100 degrees. Follow Up Care 05/24/2022 15:04:09 With:Konrad LILLY Address: [address] [employer] [address] [place] [phone]- Business (1) When:6 weeks Comments:Call for followup appointment. A bladder scan will be performed at that visit. [facility]12-15-2022 Hospital Discharge instructions Follow Up Care 05/25/2022 09:10:49 With:SLADE ALCALA, Konrad Jones, URL Address: [address] [employer] [address] [address]- When: Unknown [facility] [place] [id number] NoteHNO ID: [id number] Author: Brittany Sherman MD Service: Urology Author Type: Resident Type: Progress Notes Filed: 05/24/2022 6:56 AM Note Text: [facility] UROLOGY PROGRESS NOTE Name: Taras Hayward Bed: M081 012/M081-12 Date: 05/24/2022 After Hours [facility] [place] [facility] Pager: [phone] ASSESSMENT AND PLAN Taras Hayward is a 51 year old male with history of RIGHT nephrolithiasis (R lower pole x 2 and UPJ, larger 2.7 cm) now 2 Days Post-Op s/p RIGHT PCNL Interval: - Kramer positional overnight similar to AM - Nurse stated some small flecks in bag, urine color wilson - Denies CP/SOB/F/C/N/V, endorses some shaking with Kramer removal (performed at bedside during evaluation) Diet - Regular diet Activity - mobilize DVT prophylaxis - none, elevated bleeding risk Antibiotics - Perioperative antibiotics - 24 hr ancef Will discuss homegoing abx Discharge planning - Anticipate d/c today with TOV (PVRs to be recorded) Active Problems Morbidly Obese (BMI 40 or >) BMI 44.20 kg/(m2) - CTM POA: Yes HTN (POA): continue home carvedilol Muscle spasms (POA): cont home tizanidine To be discussed with Dr. Coffey. Brittany Sherman MD Urology Resident PGY-3 Pager: [phone] For weekend or after hours issues [place] [phone] SUBJECTIVE As above Objective Vital Signs BP 133/79 Pulse 78 Temp 36.2 ?C (97.2 ?F) (Temporal) Resp 18 Ht 190.5 cm (6' 3 ) Wt (!) 160.4 kg (353 lb 9.9 oz) SpO2 97% BMI 44.20 kg/m? Body mass index is 44.2 kg/m?. Input and Output Date 05/23/22699 - 05/24/22 0605/24/22 07 - 05/25/22 0659 Shift 1440-6754 2167-7394 7841-4844 24 Hour Total 2127-6403 8403-7302 2109-6921 24 Hour Total INTAKE PO 2250 8935 783 9529 PO 2250 6005 675 2915 IV 1276 1769 1345 4390 Volume (mL) (ceFAZolin 3 g in D5W 100 mL (ANCEF)) 200 200 Volume (mL) (lactated ringers iv infusion) 1276 1276 Volume (mL) (lactated ringers iv infusion) 1569 1345 2914 Shift Total 3526 3069 2320 8915 OUTPUT Urine 950 2575 2380 5905 Kramer Output (Calculated) 800 800 Output ( Indwelling Urinary Catheter 05/22/22 1420 Kramer 20 Fr) 950 1775 2380 5105 Shift Total 950 2575 2380 5905 Weight (kg) 160.4 160.4 160.4 160.4 160.4 160.4 160.4 160.4 Physical Exam General: Well-appearing, no acute distress CV: RRR, WWP Lungs: breathing comfortably on room air Abdomen: Soft, ND, mild TTP right flank : Kramer catheter present with wilson-colored urine in tubing, light red urine in bag Extremities: Normal. No cyanosis, clubbing, or edema Recent Labs 05/24/22 0509 05/23/22 0435 05/22/22 1603 WBC 7.83 12.08* 11.79* HB 10.9* 12.2* 13.9 HCT 33.6* 37.7* 44.1 PLT 189 234 239 NA 138 136 139 K 3.6* 4.6 4.4 CHLOR 104 103 105 CO2 24 21* 22 BUN 14 16 17 CREAT 0.94 0.97 1.02 GLUC 96 144* 143* [facility] NoteHNO ID: [id number] Author: Harsh Coffey MD Service: Urology Author Type: Physician Type: Progress Notes Filed: 05/23/2022 6:06 PM Note Text: [facility] UROLOGY PROGRESS NOTE Name: Taras Hayward Bed: M081 012/M081-12 Date: 05/23/2022 After Hours [facility] [place] [facility] Pager: [phone] ASSESSMENT AND PLAN Taras Hayward is a 51 year old male with history of RIGHT nephrolithiasis (R lower pole x 2 and UPJ, larger 2.7 cm) now 1 Day Post-Op s/p RIGHT PCNL Interval: - recovering well on M81 - VSS, labs stable - Urine is darker this AM, no clots. Diet - Regular diet Activity - mobilize DVT prophylaxis -none, elevated bleeding risk Antibiotics - Perioperative antibiotics - 24 hr ancef Discharge planning - Anticipate d/c tomorrow, with TOV beforehand Active Problems Morbidly Obese (BMI 40 or >) BMI 44.20 kg/(m2) - CTM POA: Yes HTN (POA): continue home carvedilol Muscle spasms (POA): cont home tizanidine Jie Hurt MD Resident [facility] [place] [facility] Personal Pager: [phone] For calls on nights and weekends, please page the Urology On-Call pager [phone] 7:48 AM, 05/23/2022 SUBJECTIVE - Feels well -Pain: Controlled -N/V: No -Bowel function: AROBF -Ambulating: yes Objective Vital Signs BP 121/68 Pulse 93 Temp 36.4 ?C (97.5 ?F) (Temporal) Resp 16 Ht 190.5 cm (6' 3 ) Wt (!) 160.4 kg (353 lb 9.6 oz) SpO2 94% BMI 44.20 kg/m? Body mass index is 44.2 kg/m?. Input and Output Intake/Output Summary (Last 24 hours) at 05/23/2022 0748 Last data filed at 05/23/2022 0657 Gross per 24 hour Intake 6030.7 ml Output 1625 ml Net 4405.7 ml Urine output 1525 cc kramer dark red no clots Physical Exam General: Well-appearing, no acute distress CV: RRR, WWP Lungs: breathing comfortably on room air Abdomen: Soft, ND, ATT right flank Wound: no dressing with minimal streak through : Kramer catheter present dark red with sediment, no clots Extremities: Normal. No cyanosis, clubbing, or edema Recent Labs 05/23/22 0435 05/22/22 1603 WBC 12.08* 11.79* HB 12.2* 13.9 HCT 37.7* 44.1 PLT 234 239 NA 136 139 K 4.6 4.4 CHLOR 103 105 CO2 21* 22 BUN 16 17 CREAT 0.97 1.02 GLUC 144* 143* Imaging CXR 05/22 post op IMPRESSION: Bibasilar atelectasis. Limited evaluation left lung base and follow-up PA and lateral recommended when possible. No pneuomothorax Attending Note: Patient seen at 1245 today but I was unable to document until now. [place] findings confirmed. Patient examined. Discussed with the resident physician and the patient. Plan as outlined. Urine still a bit too red for kramer removal and for d/c home. No clots however. Otherwise states no pain over PCNL site and no other issues. If urine retail pharmacy merchandiser tomorrow, then kramer out for voiding trial with d/c mid-day if voiding satisfactorily and no other issues. Discussed activity restrictions (no lifting or straining > 10 lb for 10 days post-op and patient off all narcotic pain medications, then no further restrictions; go to ER for fever, N/V, severe pain or bleeding). Patient understands and agrees to plan. He wants to try to have stent and suture removed next week by Dr. Lilly if there is an appointment available; otherwise, he will come back to [facility] for this. All questions answered. Harsh Coffey MD Director, [facility] Pager [phone] 05/23/2022[facility]12-12-2022 NoteHNO ID: [id number] Author: Jie Hurt MD Service: Urology Author Type: Resident Type: Progress Notes Filed: 05/22/2022 11:09 PM Note Text: [facility] UROLOGY PROGRESS NOTE Name: Taras Hayward Bed: M081 012/M081-12 Date: 05/22/2022 After Hours [facility] [place] [facility] Pager: [phone] ASSESSMENT AND PLAN Taras Hayward is a 51 year old male with history of RIGHT nephrolithiasis (R lower pole x 2 and UPJ, larger 2.7 cm) now Day of Surgery s/p RIGHT PCNL Interval: - recovering well on M81 - VSS, some tachycardia, suspect hypovolemic - 500 cc bolus - irrigated bladder, clear pink return, no clots. - On room air, no pneumo on CHX - Labs stable Diet - Clear liquid diet, advance to regular tomorrow AM Activity - mobilize DVT prophylaxis - holding SQH Antibiotics - Perioperative antibiotics - 24 hr ancef Discharge planning - Anticipate d/c tomorrow, likely TOV prior to dc Active Problems Morbidly Obese (BMI 40 or >) BMI 44.20 kg/(m2) - CTM POA: Yes HTN (POA): continue home carvedilol Muscle spasms (POA): cont home tizanidine Jie Hurt MD Resident [facility] [place] [facility] Personal Pager: [phone] For calls on nights and weekends, please page the Urology On-Call pager [phone] 9:34 PM, 05/22/2022 SUBJECTIVE - Feels well -Pain: Controlled -N/V: No -Bowel function: AROBF -Ambulating: No Objective Vital Signs BP 130/76 Pulse 100 Temp 36.9 ?C (98.4 ?F) (Oral) Resp 18 Ht 190.5 cm (6' 3 ) Wt (!) 160.4 kg (353 lb 9.6 oz) SpO2 94% BMI 44.20 kg/m? Body mass index is 44.2 kg/m?. Input and Output Intake/Output Summary (Last 24 hours) at 05/22/20222132 Last data filed at 05/22/20222110 Gross per 24 hour Intake 3633.7 ml Output 1275 ml Net 2358.7 ml Urine output 475 cc kramer bright red clear no clots Physical Exam General: Well-appearing, no acute distress CV: RRR, WWP Lungs: breathing comfortably on room air Abdomen: Soft, ND, ATT right flank Wound: no dressing with minimal streak through : Kramer catheter present bright red urine no clots, clear Extremities: Normal. No cyanosis, clubbing, or edema Recent Labs 05/22/22 1603 WBC 11.79* HB 13.9 HCT 44.1 PLT 239 NA 139 K 4.4 CHLOR 105 CO2 22 BUN 17 CREAT 1.02 GLUC 143* Imaging CXR 05/22 post op IMPRESSION: Bibasilar atelectasis. Limited evaluation left lung base and follow-up PA and lateral recommended when possible. [facility]22 NoteHNO ID: [id number] Author: Francisca Mercado APRN.BUS MECHANIC Service: ? Author Type: Nurse Licensed Loan Officer Assistant Type: Anesthesia Procedure Notes Filed: 05/22/2022 2:47 PM Note Text: ANESTHESIOLOGY PROCEDURE NOTE PIV General Information Procedure Start Time/Medication Administration: 05/22/2022 1:50 PM Patient Location: OR Staffing BUS MECHANIC: Francisca Mercado APRN.BUS MECHANIC Performed by: BUS MECHANIC Preparation Sterility Preparation: hand hygiene performed prior to procedure, surgical cap used, mask used, skin prep agent completely dried prior to procedure Sterility Technique Not Completely Performed Due to Extreme Emergency: No Site Prep: alcohol Procedure Details Indication: need for IV access Needle Size/Type: 20 gauge angiocath Orientation: Right Location: Hand Imaging Guidance Used: No SIGNATURE: Francisca Mercado APRN.BUS MECHANIC PATIENT NAME: Taras Hayward DATE: May 22, 2022 TIME: 2:46 PM CSN: [id number]12-12-2022 NoteHNO ID: [id number] Author: Francisca Mercado APRN.BUS MECHANIC Service: ? Author Type: Nurse Licensed Loan Officer Assistant Type: Anesthesia Procedure Notes Filed: 05/22/2022 3:05 PM Note Text: ANESTHESIOLOGY PROCEDURE NOTE Airway General Information Procedure Start Time/Medication Administration: 05/22/2022 1:40 PM Patient location during procedure: OR Timeout Performed Pre-procedure: timeout performed Consent Obtained: Yes Patient identity confirmed: arm band and patient Staffing BUS MECHANIC: Francisca Mercado APRN.BUS MECHANIC Performed by: WENCESLAO Indications and Patient Condition Indications for airway management: anesthesia Preoxygenated: yes anesthesia circuit Patient position: sniffing and ramp Method: asleep Cricoid Pressure: Yes Manual In-Line Stabilization: No Difficult Mask: No Airway Accessory: oral airway Final Airway Details Final airway type: endotracheal airway Final Endotracheal Airway: ETT Cuffed: yes Successful intubation technique: video laryngoscopy Devices used: [employer] Endotracheal tube insertion site: oral Blade: Casey Blade size: #4 ETT size (mm): 8.0 Measured from: lips Measurement (cm): 23.5 Placement verified by: capnometry Cormack-Lehane Classification: grade IIa - partial view of glottis Number of attempts at approach: 1 Failed airway: no Unrecognized esophageal intubation: no Airway not difficult Comments Oral airway and 2 hand mask ventilation required after induction agent given. Much easier to ventilate after succinylcholine given. SIGNATURE: Francisca Mercado APRN.BUS MECHANIC PATIENT NAME: Taras Hayward DATE: May 22, 2022 TIME: 2:44 PM CSN: [id number]12-08-2022 Instructions* Patient Instructions* Cynthia Blackwood APRN.WATER TEAM LEADER - 05/18/2022 1:46 PM EST PATIENT PREOPERATIVE INSTRUCTIONS No ref. provider found has scheduled you for your procedure at this surgery center: [facility] [place] Scheduling Office: [phone] --[address] [place] [address]. Please read below carefully for your personalized instructions. Dietary Restrictions: - No solid food after midnight. - You may have 12 ounces of clear liquids (water, clear juices such as apple juice or gatorade, carbonated beverages, clear tea, black coffee, jello) until 2 hours before scheduled arrival at facility. Medications: Unless instructed differently below, stay on all of your medications until your surgery. Approved medications to take the morning of surgery with a sip of water: carvedilol (COREG) - No diabetic medication the morning of surgery. - Accucheck day of surgery. If you take any medications for erectile dysfunction-Cialis (Tadalafil), Levitra, Staxyn (Vardenafil) Viagra (Sildenenafil please do not take these for 48 hours before surgery. If you start any new medications after today's visit, please contact the surgeon's office. Blood Thinning Medications: - Stop NSAIDS (Ibuprofen, Advil, Aleve, Motrin, Celebrex, Mobic, etc.) 7 days before surgery, as directed by your surgeon. - Stop Vitamin E, ALL multi-vitamins, herbals and dietary supplements 7 days before surgery. - You may take Tylenol (Acetaminophen) or any of your pain medications that do not contain aspirin or NSAIDS as needed. Important Reminders: - If you are prescribed inhalers for breathing, continue using them. - Candy, mints, and tobacco products are NOT permitted the morning of surgery. - Hearing aids, dentures and glasses may be worn the morning of surgery. - NO jewelry, body piercings, makeup, hairpins or contacts are to be worn the day of surgery. If you develop symptoms such as a fever, cold, or flu, or have other changes to your health within TWO DAYS of scheduled surgery or the morning of surgery, please contact the surgery center above. Personal Belongings: -Please have photo ID and insurance cards. -If you do not have a copy of advance directives on file with us, please bring a copy with you on the day of surgery. - Leave ALL valuables and money at home or with family members. For Outpatient Procedures: - YOU MUST HAVE A RESPONSIBLE PAROLE AGENT TAKE YOU HOME. A CABLE SPLICING TECHNICIAN OR KNIFER UP CANNOT BE MADE A RESPONSIBLE PAROLE AGENT. - We recommend that a responsible person stays with you overnight to take care of you. - You cannot stay in a hotel alone after outpatient surgery. You will not be permitted to have yoursurgery, if you do not have someone to take care of you. Arrival Time for Surgery: - To obtain your arrival time for surgery, call your physician's office the day before your surgery. - If your surgery is scheduled for Sunday, call the Sunday before. Your surgeon s materials scheduler will tell you what time to call the office. - If you have not reached the departmental materials scheduler by 5 P.M., call [phone] after 5 P.M. the day before your surgery. Please be aware that emergency situations arise, which may delay or change your surgical time. If this happens, we will notify you as soon as possible and regret any inconvenience. If you already have an Advance Directive, please fax a copy to [phone] or email to for it to be added to your chart. If you do not have an Advance Directive, you can find the appropriate form and more information at [email or web address]. We recommend that youcomplete the Advance Directive form found on the website and bring it with you the day of your surgery. It can be witnessed and scanned into your chart that day. Cynthia Blackwood APRN.CNP documented in [facility]St[facility] History and physical note * Cynthia Blackwood APRN.CNP - 05/18/2022 1:30 PM EST Images from the original note were not included. HISTORY AND PHYSICAL EXAMINATION SERVICE DATE: 05/18/2022 SERVICE TIME: 2:15 PM PRIMARY CARE PHYSICIAN: Awais Garcia DO REASON FOR VISIT: Taras Hayward is a 51 year old male who is scheduled for PERC PLACEMENT NEPHROSTOMY CATH,INCLUDING DIAGNOSTIC NEPHROSTOGRAM/URETEROGRAM WHEN PERFORMED,IMAGING GUIDANCE AND ALL ASSOCIATED RAD at the request of Dr. Tejinder Quezada MD for consultation. My final recommendation will be communicated back to the requesting physician by way of shared medical record or letter. Subjective The patient has the following: ACTIVE PROBLEM LIST Nephrolithiasis Family History of Nephrolithiasis Bmi 40.0-44.9, Adult (Hcc) History of Gastric Bypass Essential Hypertension Prediabetes Bladder Spasms Ureteral Stent Present COVID-19 Immunization Status COVID-19 VACCINE (5 - Booster for Moderna series) Next due on 06/06/2022 04/11/2022 Imm Admin: COVID-19 original vaccine, full dose, monovalent (MODERNA) 04/06/2021 Imm Admin: COVID-19 original vaccine, full dose, monovalent (MODERNA) 07/07/2020 Imm Admin: COVID-19 original vaccine, full dose, monovalent (MODERNA) Only the first 3 history entries have been loaded, but more history exists. Patient reports being fully vaccinated against COVID-19. Patient reports a prior COVID-19 infection, with an infection date of 05/2021. CHIEF COMPLAINT: Pre-Op Visit HPI: 51 year old male who has Nephrolithiasis since mid March 2022 seen for PACC. He is noted to have a 3 cm right renal calculus and currently has a right Ureteral stent. He states receiving his first stone s/p gastric bypass in 2015. PMH DM2, anxiety, HLN and obesity. He notes having hematuria and urinary frequency and urgency. He denies any flank pain or pain with urination. Scheduled for PERC PLACEMENT NEPHROSTOMY CATH,INCLUDING DIAGNOSTIC NEPHROSTOGRAM/URETEROGRAM WHEN PERFORMED,IMAGING GUIDANCE AND ALL ASSOCIATED RAD on 05/22/22. Denies any fever, chills, nausea, vomiting, SOB, dizziness, lightheadedness, palpitations, syncope, chest pain or abdominal pain. He has elected to proceedwith the surgical procedure. REVIEW OF SYSTEMS: General: No weight loss, malaise or fevers. Neurological: No history of TIA's, stroke, WOODS MANAGER tumor, impaired sensorium, hemiplegia, paraplegia orquadraplegia. No neurological symptoms or problems. Negative for: seizures, TIA and strokes. Respiratory: Positive for: prior COVID-19 infection. Date of COVID-19 infection: 05/2021. Negative for: asthma, bronchitis, COPD, current cough, dyspnea, orthopnea, pneumonia within 6 weeks, tobacco use, URI < 2 weeks and obstructive sleep apnea. Cardiovascular: Positive for: hypertension Negative for: AICD/PPM, anticoagulation therapy, arrhythmia, atrial fibrillation, CAD, chest pain, CHF, DVT/PE, hyperlipidemia, recent KS and murmur/valvular heart disease. GI: No history of GI symptoms or problems. No history of esophageal varices, recent ascites, or ETOH greater than 2 drinks per day. : Positive for: frequent urination, hematuria, nephrolithiasis, nocturia >1 time per night and urgency. Negative for: dysuria, flank pain and urinary incontinence. Endocrine: Positive for: diabetes mellitus. Patient's diabetes mellitus is controlled by OZEMPIC SUBCUTANEOUSLY WEEKLY. Negative for: hyperthyroidism, hypothyroidism and hyperparathyroidism. Hematology: No history of bleeding or clotting disorder. Patient is not taking anti-coagulation or platelet medications. No history of hematological symptoms or problems. Oncology: No history of CA metastasis, chemo within 30 days, or radiotherapy within 90 days. No history of oncological symptoms or problems. Psych: Positive for: anxiety. Negative for: bipolar disorder, depression and drug dependency. Musculoskeletal: Negative for joint pain or swelling, back pain or muscle pain. Skin: Negative for lesions, rash and itching. No past medical history on file. No past surgical history on file. No family history on file. Social History Tobacco Use Smoking status: Never Smokeless tobacco: Never Substance Use Topics Alcohol use: Yes Alcohol/week: 1.0 standard drink Types: 1 Shots of liquor per week Comment: may have a drink every 6 months Drug use: Never Prior to Admission medications as of 05/18/22 1409 Medication Sig Last Dose Taking cholecalciferol, vitamin D3, (VITAMIN D3 ORAL) Take 5,000 Int'l Units/L by mouth once daily. TakingYes cephALEXin (KEFLEX) 500 mg capsule Take 1 capsule by mouth four times daily. Taking Yes carvedilol (COREG) 12.5 mg tablet Take by mouth. Taking Yes OZEMPIC 0.25 mg or 0.5 mg(2 mg/1.5 mL) pen INJECT 0.5MG SUBCUTANEOUSLY WEEKLY Taking Yes azithromycin (ZITHROMAX) 250 mg tablet Take by mouth as directed. TAKE 2 TABLETS BY MOUTH TODAY, THEN TAKE 1 TABLET DAILY FOR 4 DAYS cefUROXime (CEFTIN) 500 mg tablet Take 500 mg by mouth q 12 HR. ciprofloxacin HCl (CIPRO) 500 mg tablet Cipro 500 mg Tab See Instructions, Take 1 tab day prior to procedure and 1 tab day of procdure - afterwards, # 2 tab(s), Refills(s) 0, Pharmacy: [facility]/pharmacy #[id number] Start Date: 08/22/19 Status: Ordered nystatin-triamcinolone (MYCOLOG II) cream Apply to affected area twice daily. APPLY TO AFFECTED AREA oxybutynin (DITROPAN) 5 mg tablet Take by mouth. Patient not taking: Reported on 05/18/2022 Not Taking tiZANidine (ZANAFLEX) 4 mg tablet TAKE 1/2 TO 1 TABLET BY MOUTH AT BEDTIME NEEDED No medication comments found. ALLERGIES No Known Allergies Objective PHYSICAL EXAM: General: alert and oriented and healthy appearance. Skin: normal color, no rash or lesions. HEENT: pupils equal round and pupils reactive to light. Cardiovascular: regular rate and rhythm, normal S1 and S2, no rub, murmurs, or gallop. Respiratory: normal breath sounds, no wheezes or crackles. No chest wall deformity or tenderness. Abdomen: bowel sounds present and soft. Extremities: no deformity, no edema or tenderness, no joint swelling or clubbing. Neurological: normal cognition and motor skills. Gait normal. No weakness or sensory deficit. PAIN ASSESSMENT: VITALS: BP 148/92 Pulse 109 Temp (Src) 97.5 (Temporal) Ht 6' 3 (1.91m) Wt 353 lb 9.6 oz (160.4kg) SpO2 96% BMI 44.20 kg/(m^2). Diagnostic tests reviewed for today's visit: Lab Value Units Date High Low HB 14.8 g/dL 05/09/2022 17.0 13.0 HCT 46.1 % 05/09/2022 51.0 39.0 WBC 8.33 k/uL 05/09/2022 11.00 3.70 PLT 295 k/uL 05/09/2022 400 150 NA 141 mmol/L 05/09/2022 144 136 K 4.8 mmol/L 05/09/2022 5.1 3.7 GLUC 107 mg/dL 05/09/2022 99 74 BUN 17 mg/dL 05/09/2022 24 9 CREAT 0.98 mg/dL 05/09/2022 1.22 0.73 PTSEC No results within date range. INR No results within date range. APTT No results within date range. ALT 17 U/L 05/09/2022 54 10 AST 15 U/L 05/09/2022 40 14 TBILI 0.8 mg/dL 05/09/2022 1.3 0.2 TSH No results within date range. Lab Value Units Date High Low HCGQT No results within date range. UHCG No results within date range. HCG, BODY* No results within date range. Lab Value Units Date High Low ABORHD No results within date range. ABSCREEN No results within date range. No results found for: HBA1C No results found for this or any previous visit (from the past 8760 hour(s)). No results found for this or any previous visit (from the past 06130 hour(s)). Assessment Essential hypertension Assessment: Managed with carvedilol (COREG) BP this visit 148/92 Denies SOB, dizziness, lightheadedness, palpitations, syncope or chest pain BMI 40.0-44.9, adult (HCC) Assessment: Body mass index is 44.2 kg/m . Prediabetes Assessment: managed with OZEMPIC Ordered A1C Ureteral stent present Assessment: Right placed 03/2022 Zambrano Activity Status Index: METS: Climb a flight of stairs or walk up a hill (5.50 METs) DASI Score: 5.5 Patient denies any chest pain or undue shortness of breath with the above physical activity. STOP-Bang Score: Has or is being treated for high blood pressure BMI greater than 35 kg/m^2 Male patient Denies snoring loudly Denies feeling tired, fatigued, or sleepy during the daytime Has not been observed to stop breathing or choking/gasping during sleep Patient 50 years old or younger STOP-Bang Score: 3 [id number] Score: Age: <65 Sex: male Hypertension history: Yes Diabetes history: Yes [id number] Score: 2 ARISCAT Score: Age: <=50 ARISCAT Score: ASA Class: 3 ANESTHESIA FINDINGS: Intubation History: No abnormal airway history. No prior intubation Significant Anesthesia Considerations: none Airway History: No abnormal airway history No prior intubation I - PHYSICAL EVALUATION AIRWAY Patient intubated: No. Tracheostomy tube not present Mallampati: II. TM distance: >3 FB. Neck ROM: full ROM without neurological symptoms. Mouth opening: adequate. Short neck: no. Thick neck: no Peoples present: yes DENTAL Dental findings: missing tooth/teeth. II - ANESTHESIA PLAN ASA Score: 3 Anesthetic Plan: other Anesthetic plan additional comments: *PACC/TCI - anesthesia choice. Beta Melvin Monitoring Plan Post Procedure Analgesic Plan Prepared for Surgery: optimally prepared for surgery, pending [see comment]. EKG and DOS exam CONSULTS: Patient does not require consults for optimization at this time Planned Anesthetic: other anesthesia choice The Following Tests/Procedures Have Been Initiated: Orders Placed This Encounter cholecalciferol, vitamin D3, (VITAMIN D3 ORAL) Sig: Take 5,000 Int'l Units/L by mouth once daily. ECG COMPLETE Standing Status: Future Standing Expiration Date: 05/18/2023 Instructions Given to Patient: Instructions located in the after visit summary. Patient given verbal and written preop instructions and voices comprehension and compliance. SIGNATURE: Cynthia Blackwood APRN.CNP PATIENT NAME: Taras Hayward DATE: May 18, 2022 TIME: 1:08 PM PAGER/CONTACT #: documented in this encounterSt. [facility]11-[facility]22 Miscellaneous Notes* Telephone Encounter - Della Frederick RN - 05/10/2022 11:11 AM EST Called and spoke with patient regarding appointment. Dr. Coffey did speak with IR, patient it scheduled on 05/22/22 for IR perc placement and RPCNL surgery. Did advise patient that PACC appointment will also be scheduled, and someone will reach out to him regarding a date and time to be set up before surgery. Also informed patient that due to his decreased Vitamin D, per Dr Coffey, he is to start OTC vit. D3 5000 units daily for 6 months, then 2000 units daily thereafter. Patient verbalized understanding. Della Frederick RN May 10, 2022 11:27 AM documented in this encounterSt. Anthony'[facility]11-29-2022 NoteHNO ID: [id number] Author: Harsh Coffey MD Service: ? Author Type: Physician Type: Progress Notes Filed: 05/09/2022 4:29 PM Note Text: STAFF UROLOGY NOTE: We had the pleasure of seeing Taras Hayward in our Multidisciplinary Stone Clinic today. Consultation requested by Dr. Lilly for an opinion regarding 3 cm right renal calculus. My final recommendations will be communicated back to the requesting physician by way of shared Medical record or letter to requesting physician via US mail. He is a pleasant 51 year old male who first had a stone episode in 2015. He has passed 3 stones He has had a prior 24-hour urine metabolic evaluation. He has had 0 shockwave lithotripsies, 0 ureteroscopies and 0 percutaneous nephrolithotomies He has the following family history of stones: Side of Family Relationship Number of Stones Paternal Father Significant comorbidities include:MedicalDiabetes,Hypertension,Gastric Bypass The patient is currently asymptomatic. . He was counseled on the most recent imaging studies. CT Scan Imaging Date: March, Stone Side Location Length (mm) Width (mm) HU STSD 1 R lower pole 9 2 R lower pole 4 3 R UPJ 27 900 21 cm 4 5 Renal US or KUB Imaging Date: Stone Side Location Length (mm) Width (mm) 1 2 3 4 5 He was counseled on the options of: 1. Observation - risks including stone growth, stone movement, pain, impact on renal function. Chance of spontaneous stone passage of the largest stone: 0% 2. Shockwave lithotripsy - risks of bleeding (1 in 1000 severe bleed), residual fragments, need for a secondary procedure. Success based on size, location, hounsfield units and bjwj-cd-lnjkj distance: 2% 3. Ureteroscopy - risks of UTI, ureteral injury (1 in 1000 severe injury requiring major surgery), morbidity from ureteral stent Success: 50% 4. PCNL - risks of lung injury (1%), transfusion (5%), embolization (1%), injury to other organs, need for secondary procedure. Success: 95% Imp: The primary encounter diagnosis was Nephrolithiasis. Diagnoses of Family history of nephrolithiasis, BMI 40.0-44.9, adult (HCC), History of gastric bypass, Essential hypertension, Prediabetes, Bladder spasms, and Ureteral stent present were also pertinent to this visit. Plan: Based on this discussion, he wishes to undergo right PCNL, probably with IR access; Discussed at length. Harsh Coffey MD Director, Surgical Stone Disease [facility] [place] [facility], [facility] Pager [phone] 11/29/[address] [place], [place] [address]6111-29-2022 NotePatient Outreach (UROLMN) TARAS HAYWRAD ([id number]) 1970 M Date Time Provider Department 05/09/22 HARSH COFFEY During your visit today, we recorded the following information about you: Allergies As of Date: 05/09/2022 (No Known Allergies) Date Reviewed: 05/09/2022 Reviewed by: Aislinn Mendoza MA - Fully Assessed Visit Diagnosis:Screening for genitourinary condition [Z13.89] Order(s):URINALYSIS, REFLEX MICROSCOPIC [NYW0641] Order #: [id number]. #:[id number] Prescriptions as of 05/12/2022 - azithromycin (ZITHROMAX) 250 mg tablet Take by mouth as directed. TAKE 2 TABLETS BY MOUTH TODAY, THEN TAKE 1 TABLET DAILY FOR 4 DAYS - carvedilol (COREG) 12.5 mg tablet Take by mouth. - cefUROXime (CEFTIN) 500 mg tablet Take 500 mg by mouth q 12 HR. - ciprofloxacin HCl (CIPRO) 500 mg tablet Cipro 500 mg Tab See Instructions, Take 1 tab day prior to procedure and 1 tab day of procdure - afterwards, # 2 tab(s), Refills(s) 0, Pharmacy: [facility]/pharmacy #[id number] Start Date: 08/22/19 Status: Ordered - nystatin-triamcinolone (MYCOLOG II) cream Apply to affected area twice daily. APPLY TO AFFECTED AREA - oxybutynin (DITROPAN) 5 mg tablet Take by mouth. - OZEMPIC 0.25 mg or 0.5 mg(2 mg/1.5 mL) pen INJECT 0.5MG SUBCUTANEOUSLY WEEKLY - tiZANidine (ZANAFLEX) 4 mg tablet TAKE 1/2 TO 1 TABLET BY MOUTH AT BEDTIME NEEDED Problem List As Of Date 05/09/2022 Noted Resolved Nephrolithiasis [N20.0] 05/09/2022 Family history of nephrolithiasis [Z84.1] 05/09/2022 BMI 40.0-44.9, adult (HCC) [Z68.41] 05/09/2022 History of gastric bypass [Z98.84] 05/09/2022 Essential hypertension [I10] 05/09/2022 Prediabetes [R73.03] 05/09/2022 Bladder spasms [N32.89] 05/09/2022 Ureteral stent present [Z96.0] 05/09/2022 Encounter Status:Closed by [employer], PRODUSER on 05/12/22[facility] 05[facility]09[facility]2022 History of Present illness Narrative* Harsh Coffey MD - 05/09/2022 1:32 PM EST Images from the original note were not included. STAFF UROLOGY NOTE: We had the pleasure of seeing Taras Hayward in our Multidisciplinary Stone Clinic today. Consultation requested by Dr. Lilly for an opinion regarding 3 cm right renal calculus. My final recommendations will be communicated back to the requesting physician by way of shared Medical record or letter to requesting physician via US mail. He is a pleasant 51 year old male who first had a stone episode in 2016. He has passed 3 stones He has had a prior 24-hour urine metabolic evaluation. He has had 0 shockwave lithotripsies, 0 ureteroscopies and 0 percutaneous nephrolithotomies He has the following family history of stones: Side of Family Relationship Number of Stones Paternal Father Significant comorbidities include:MedicalDiabetes,Hypertension,Gastric Bypass The patient is currently asymptomatic. . He was counseled on the most recent imaging studies. CT Scan Imaging Date: March, Stone Side Location Length (mm) Width (mm) HU STSD 1 R lower pole 9 2 R lower pole 4 3 R UPJ 27 900 21 cm 4 5 Renal US or KUB Imaging Date: Stone Side Location Length (mm) Width (mm) 1 2 3 4 5 He was counseled on the options of: 1. Observation - risks including stone growth, stone movement, pain, impact on renal function. Chance of spontaneous stone passage of the largest stone: 0% 2. Shockwave lithotripsy - risks of bleeding (1 in 1000 severe bleed), residual fragments, need fora secondary procedure. Success based on size, location, hounsfield units and bpro-kq-rrsnl distance: 2% 3. Ureteroscopy - risks of UTI, ureteral injury (1 in 1000 severe injury requiring major surgery), morbidity from ureteral stent Success: 50% 4. PCNL - risks of lung injury (1%), transfusion (5%), embolization (1%), injury to other organs, need for secondary procedure. Success: 95% Imp: The primary encounter diagnosis was Nephrolithiasis. Diagnoses of Family history of nephrolithiasis, BMI 40.0-44.9, adult (HCC), History of gastric bypass, Essential hypertension, Prediabetes, Bladder spasms, and Ureteral stent present were also pertinent to this visit. Plan: Based on this discussion, he wishes to undergo right PCNL, probably with IR access; Discussedat length. Harsh Coffey MD Director, Surgical Stone Disease [facility] Pager [phone] 05/09/2022 documented in this encounterSt. [facility]11-29-2022 Nurse Note* Aislinn Mendoza MA - 05/09/2022 1:02 PM EST [facility] Patient was assigned the Dr. Coffey patient instruction module from the [employer] platform. Patient was provided instructions on how to access [employer]. The patient was instructed to call the provider s officewith any questions. Patient states understanding and has the provider s office number/contact information via [employer]. Aislinn Mendoza MA documented in this encounterSt. Anthony'S Hospital11-02-2022 Hospital Discharge instructions Patient Education 04/12/2022 13:40:41 Kidney Stones, Ztts-gg-Ldzg Kidney Stones Kidney stones are rock-like masses that form inside of the kidneys. Kidneys are organs that make pee (urine). A kidney stone may move into other parts of the urinary tract, including: The tubes that connect the kidneys to the bladder (ureters). The bladder. The tube that carries urine out of the body (urethra). Kidney stones can cause very bad pain and can block the flow of pee. The stone usually leaves your body (passes) through your pee. You may need to have a doctor take out the stone. What are the causes? Kidney stones may be caused by: A condition in which certain glands make too much parathyroid hormone (primary hyperparathyroidism). A buildup of a type of crystals in the bladder made of a chemical called uric acid. The body makes uric acid when you eat certain foods. Narrowing (stricture) of one or both of the ureters. A kidney blockage that you were born with. Past surgery on the kidney or the ureters, such as gastric bypass surgery. What increases the risk? You are more likely to develop this condition if: You have had a kidney stone in the past. You have a family history of kidney stones. You do not drink enough water. You eat a diet that is high in protein, salt (sodium), or sugar. You are overweight or very overweight (obese). What are the signs or symptoms? Symptoms of a kidney stone may include: Pain in the side of the belly, right below the ribs (flank pain). Pain usually spreads (radiates) to the groin. Needing to pee often or right away (urgently). Pain when going pee (urinating). Blood in your pee (hematuria). Feeling like you may vomit (nauseous). Vomiting. Fever and chills. How is this treated? Treatment depends on the size, location, and makeup of the kidney stones. The stones will often pass out of the body through peeing. You may need to: Drink more fluid to help pass the stone. In some cases, you may be given fluids through an IV tube put into one of your veins at the hospital. Take medicine for pain. Make changes in your diet to help keep kidney stones from coming back. Sometimes, medical procedures are needed to remove a kidney stone. This may involve: A procedure to break up kidney stones using a beam of light (laser) or shock waves. Surgery to remove the kidney stones. Follow these instructions at home: Medicines Take ltpx-nqg-rwckiuw and prescription medicines only as told by your doctor. Ask your doctor if the medicine prescribed to you requires you to avoid driving or using heavy machinery. Eating and drinking Drink enough fluid to keep your pee pale yellow. You may be told to drink at least 8 10 glasses of water each day. This will help you pass the stone. If told by your doctor, change your diet. This may include: ?Limiting how much salt you eat. ?Eating more fruits and vegetables. ?Limiting how much meat, poultry, fish, and eggs you eat. Follow instructions from your doctor about eating or drinking restrictions. General instructions Collect pee samples as told by your doctor. You may need to collect a pee sample: ?24 hours after a stone comes out. ?8 12 weeks after a stone comes out, and every 6 12 months after that. Strain your pee every time you pee (urinate), for as long as told. Use the strainer that your doctor recommends. Do not throw out the stone. Keep it so that it can be tested by your doctor. Keep all follow-up visits as told by your doctor. This is important. You may need follow-up tests. How is this prevented? To prevent another kidney stone: Drink enough fluid to keep your pee pale yellow. This is the best way to prevent kidney stones. Eat healthy foods. Avoid certain foods as told by your doctor. You may be told to eat less protein. Stay at a healthy weight. Where to find more information National Kidney Foundation (NKF): www.kidney.org Urology Care Foundation (UCF): www.urologyhealth.org Contact a doctor if: You have pain that gets worse or does not get better with medicine. Get help right away if: You have a fever or chills. You get very bad pain. You get new pain in your belly (abdomen). You pass out (faint). You cannot pee. Summary Kidney stones are rock-like masses that form inside of the kidneys. Kidney stones can cause very bad pain and can block the flow of pee. The stones will often pass out of the body through peeing. Drink enough fluid to keep your pee pale yellow. This information is not intended to replace advice given to you by your health care provider. Make sure you discuss any questions you have with your health care provider. Document Released: 11/13/2008 Document Revised: 10/14/2019 Document Reviewed: 10/14/2019 [employer] Patient Education 2020 [employer] Follow Up Care 03/31/2022 13:35:57 With:SLADE ALCALA, Konrad Jones, URL Address: [address] [place] [id number]- When: Unknown [facility] 10-19-2022 NoteOPERATIVE NOTE OPERATION DATE: 03/29/2022 PREOPERATIVE DIAGNOSIS: Right renal calculus (at the right UPJ), right flank pain and sepsis. POSTOPERATIVE DIAGNOSIS: Right renal calculus (at the right UPJ), right flank pain and sepsis. PROCEDURE: Cystoscopy, right retrograde pyelogram, right double J stent placement under fluoroscopic guidance. SURGEON: Dillon Lilly M.D. COMPLICATIONS: None. ANESTHESIA: General. INDICATIONS: Mr. Hayward is a 51-year-old male who was admitted with a large, 27 mm stone at the right ureteropelvic junction with intermittent flank pain. Due to the size of the stone, recommendation made for cystoscope and a right double J stent placement under fluoroscopic guidance. Patient and family were aware that the stone will not be retrieved today. In fact, we discussed further intervention regarding this large stone, which may involve a percutaneous nephroscopic approach. Regarding today's procedure, there is the increased risk of anesthesia secondary to his continued obesity, despite a weight loss procedural intervention years ago. He understands this and wishes to proceed. He is already on intravenous antibiotics. He does have sequential compression devices in place and functional to the bilateral lower extremities throughout the case. PROCEDURE: Patient was brought back to the operating room and a time out was performed. All were in agreement with the operative plan. After the successful induction of general anesthesia, he was placed in the modified dorsal lithotomy position and prepped in the usual fashion with Betadine solution. He was draped appropriately. 2% Xylocaine jelly was placed per urethra and a well lubricated 22-Zimbabwean cystourethroscope with 30 degree lens then passed into the bladder without difficulty. Anterior urethra was within normal limits. Prostate is non-obstructing, but there is some moderate lateral lobe hypertrophy. Once into the bladder, hdz endoscopy reveals no tumors or stones or diverticula. The orifices are normal x2. Right retrograde pyelogram was performed but this proves to be problematic in terms of visualization, secondary to the patient's increased body habitus and increased abdominal girth. It was difficult to locate the stents once placed, even though it was much more visible with the wire within it. Regardless, the wire was placed up the right ureter, into the presumed position of the kidney itself. Unable to completely identify the stone for the reasons noted above. I was then able to pass a 4.8-Zimbabwean, 22-30 cm Microvasive double-J stent into the right kidney region. The wire was removed and there seems to be adequate placement, but again it is difficult to visualize. The wire had been removed, and there was good curl within the patient's urinary bladder. There seemed to be good efflux of urine, both through the holes and around the stent itself. Bladder emptied. Scope removed and the procedure was terminated. He tolerates it well. [facility] then back to [facility] in satisfactory condition, stable vital signs. The plan will be for transfer to PACU and subsequently back to the floor. KUB will subsequently be obtained to confirm adequate stent placement. Eventual plan will be to see the patient in the outpatient setting, so we can discuss the next steps. As discussed preoperatively, most likely I will be recommending referral to tertiary care center, either [facility] or [place], for consideration of percutaneous nephroscopic access for this nearly 3 cm stone. Discussed all this with the patient's family postoperatively and they were in agreement with the plan.[facility] No data available for this section [facility] Evaluation + Plan note Future Appointments Appointment Date:05/26/2022 08:30:00 AM Scheduled Provider: Location:[facility] Appointment Type:Urology CALL PAT FT Appointment Date:05/31/2022 01:00:00 PM Scheduled Provider: Location:[facility] Appointment Type:Urology FT [facility] Evaluation + Plan note Future Appointments Appointment Date:07/19/2022 03:00:00 PM Scheduled Provider:Konrad LILLY MD Location:[facility] Future Appointments Appointment Date:11/28/2022 03:15:00 PM Scheduled Provider:Konrad LILLY MD Location:[facility] Appointment Type:URO Office Visit [facility] Evaluation + Plan note Future Appointments Appointment Date:11/28/2022 03:15:00 PM Scheduled Provider:Konrad LILLY MD Location:[facility] Appointment Type:URO Office Visit Diagnostic Tests Pending * [facility] Future Appointments Appointment Date:05/16/2023 03:00:00 PM Scheduled Provider:Konrad LILLY MD Location:[facility] Appointment Type:URO Office Visit [facility] evaluation + Plan note Future Appointments Appointment Date:05/16/2023 03:00:00 PM Scheduled Provider:Konrad LILLY MD Location:[facility] Appointment Type:URO Office Visit Diagnostic Tests Pending * Urine Culture 02/20/23 [facility] note* Diagnosis Nephrolithiasis- Primary Calculus of kidney Family history of nephrolithiasis Family history of other kidney diseases BMI 40.0-44.9, adult (HCC) Body Mass Index 40.0-44.9, adult History of gastric bypass Bariatric surgery status Essential hypertension Unspecified essential hypertension Prediabetes Other abnormal glucose Bladder spasms Other specified disorders of bladder Ureteral stent present Abnormal urinalysis Other nonspecific finding on examination of urine documented [facility] this encounter [facility]* Diagnosis Pre-op evaluation- Primary Preoperative examination, unspecified Essential hypertension Unspecified essential hypertension BMI 40.0-44.9, adult (HCC) Body Mass Index 40.0-44.9, adult Prediabetes Other abnormal glucose Ureteral stent present Nephrolithiasis Calculus of kidney Nephrolithiasis Calculus of kidney documented in this encounter [facility] Other Evaluation noteNo [facility]Norank[facility] Other Evaluation note* Diagnosis Onset Date Resolution Status Cerebellar infarct acute Hydrocephalus acute Hypertension acute Impaired mobility and activities of daily living acute Obesity (BMI 35.0-39.9 without comorbidity) acute 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 Tachycardia acute [facility] Work Phone: Evaluation note* Diagnosis Onset Date Resolution Status Cerebellar infarct acute Dizziness acute DVT, popliteal, acute acute Hydrocephalus acute Hypertension acute Impaired mobility and activities of daily living acute Nausea acute Obesity (BMI 35.0-39.9 without comorbidity) acute 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 Tachycardia acute [facility] Work Phone: History general Narrative - Reported* Type Description Date Medical History Candidal balanitis Medical History Right ureteral calculus Medical History IFG (impaired fasting glucose) Medical History Essential hypertension Medical History Hip pain, left Medical History Bacterial sinusitis Medical History Lumbosacral spondylosis with rad iculopathy Medical History Benign prostatic hyp erplasia with lower urinary tract symptoms, symptom details unspecified Medical History COVID Medical History Epicondylitis, lateral, right Medical History Acute prostatitis without hematu sheri Medical History Tachycardia Medical History 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 with pain Medical History Superficial phlebiti s and thrombophlebitis of right lower extremity Medical History History of nephrolithiasis Medical History Bariatric surgery status Medical History Left nephrolithiasis Medical History Spondylosis of cervical spine wi th radiculopathy Medical History Tobacco use Medical History Prostatitis, acute Medical History LLQ pain Medical History Cough Medical History Acute bronchitis, unspecified or ganism Surgical History cystoscopy and urete roscopy with stent placement right 03/30/2022 Surgical History cystoscopy with lithotripsy 2019 Surgical History cystoscopy with insertion of st ent left 07/2019 Surgical History right inguinal hernia 6 Surgical History sinus surgery 07/2010 Surgical History LHC 08/2010 Surgical History gastric bypass 07/2015 Hospitalization History SEE SURGICAL HX [facility] Other History [facility] Other History general Narrative - Reported* Type Description Date Medical History Candidal balanitis Medical History Right ureteral calculus Medical History IFG (impaired fasting glucose) Medical History Essential hypertension Medical History Hip pain, left Medical History Bacterial sinusitis Medical History Lumbosacral spondylosis with rad iculopathy Medical History Benign prostatic hyp erplasia with lower urinary tract symptoms, symptom details unspecified Medical History COVID Medical History Epicondylitis, lateral, right Medical History Acute prostatitis without hematu sheri Medical History Tachycardia Medical History 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 with pain Medical History Superficial phlebiti s and thrombophlebitis of right lower extremity Medical History History of nephrolithiasis Medical History Bariatric surgery status Medical History Left nephrolithiasis Medical History Spondylosis of cervical spine wi th radiculopathy Medical History Tobacco use Medical History Prostatitis, acute Medical History LLQ pain Medical History Cough Medical History Acute bronchitis, unspecified or ganism Medical History Cerebellar Infarct Medical History Left vertebral artery dissection Surgical History cystoscopy and urete roscopy with stent placement right 03/30/2022 Surgical History cystoscopy with lithotripsy 2019 Surgical History cystoscopy with insertion of st ent left 07/2019 Surgical History right inguinal hernia 6 Surgical History sinus surgery 07/2010 Surgical History C 08/2010 Surgical History gastric bypass 07/2015 Hospitalization History SEE SURGICAL [facility] Other History general Narrative - Reported* Type Description Date Medical History Candidal balanitis Medical History Right ureteral calculus Medical History IFG (impaired fasting glucose) Medical History Essential hypertension Medical History Hip pain, left Medical History Bacterial sinusitis Medical History Lumbosacral spondylosis with rad iculopathy Medical History Benign prostatic hyp erplasia with lower urinary tract symptoms, symptom details unspecified Medical History COVID Medical History Epicondylitis, lateral, right Medical History Acute prostatitis without hematu sheri Medical History Tachycardia Medical History 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 with pain Medical History Superficial phlebiti s and thrombophlebitis of right lower extremity Medical History History of nephrolithiasis Medical History Bariatric surgery status Medical History Left nephrolithiasis Medical History Spondylosis of cervical spine wi th radiculopathy Medical History Tobacco use Medical History Prostatitis, acute Medical History LLQ pain Medical History Cough Medical History Acute bronchitis, unspecified or ganism Medical History Cerebellar Infarct Medical History Left vertebral artery dissection Surgical History cystoscopy and urete roscopy with stent placement right 03/30/2022 Surgical History cystoscopy with lithotripsy 2019 Surgical History cystoscopy with insertion of st ent left 07/2019 Surgical History right inguinal hernia 6 Surgical History sinus surgery 07/2010 Surgical History LHC 08/2010 Surgical History gastric bypass 07/2015 Surgical History C1 Laminectomy 12/2022 Surgical History Suboccipital craniectomy 12/2022 Surgical History Frontal ventricular drain 7/202 3 Hospitalization History SEE SURGICAL HX [facility] Other History general Narrative - Reported* Type Description Date Medical History Candidal balanitis Medical History Right ureteral calculus Medical History IFG (impaired fasting glucose) Medical History Essential hypertension Medical History Hip pain, left Medical History Bacterial sinusitis Medical History Lumbosacral spondylosis with rad iculopathy Medical History Benign prostatic hyp erplasia with lower urinary tract symptoms, symptom details unspecified Medical History COVID Medical History Epicondylitis, lateral, right Medical History Acute prostatitis without hematu sheri Medical History Tachycardia Medical History 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 with pain Medical History Superficial phlebiti s and thrombophlebitis of right lower extremity Medical History History of nephrolithiasis Medical History Bariatric surgery status Medical History Left nephrolithiasis Medical History Spondylosis of cervical spine wi th radiculopathy Medical History Tobacco use Medical History Prostatitis, acute Medical History LLQ pain Medical History Cough Medical History Acute bronchitis, unspecified or ganism Medical History Cerebellar Infarct Medical History Left vertebral artery dissection Surgical History cystoscopy and urete roscopy with stent placement right 03/30/2022 Surgical History cystoscopy with lithotripsy 2019 Surgical History cystoscopy with insertion of st ent left 07/2019 Surgical History right inguinal hernia 6 Surgical History sinus surgery 07/2010 Surgical History LHC 08/2010 Surgical History gastric bypass 07/2015 Surgical History C1 Laminectomy 12/2022 Surgical History Suboccipital craniectomy 12/2022 Surgical History Frontal ventricular drain 3 Surgical History WINDOW GLASS CUTTER OFF shunt placement 12/2022 Hospitalization History SEE SURGICAL HX [facility] Other Hospital Discharge instructions No data available for this section [facility] Additional Instructions Have sutures removed in 7 days. Apply bacitracin twice per day. Return for any redness, fever, vomiting, Headache, vision changes.[facility] Work Phone: Progress note No data available for this section [facility] Reason for referral (narrative)* Outpatient Procedure (Routine) - Closed Specialty Diagnoses / Procedures Referred By Contac t Referred To [facility] Diagnoses Pre-op evaluation Procedures ECG COMPLETE ECG ROUTINE ECG W/LEAST 12 LDS W/I&R Cynthia Blackwood APRN.WATER TEAM LEADER [address] [place] [address] [facility] [address] [place] [address] Referral ID Status Reason Start Date Expiration Date V isits Requested Visits Authorized [id number] Closed Auto-Generate d Referral 05/18/2022 05/18/2023 1 1 [facility] Reason for Referral Specialty Diagnoses / Procedures Referred By Contac t Referred To Contact Diagnoses Nephrolithiasis Family history of nephrolithiasis BMI 40.0-44.9, adult (HCC) History of gastric bypass Essential hypertension Prediabetes Bladder spasms Ureteral stent present Procedures REFER TO PACC - PRE ANESTHESIA CONSULTATION CLINIC OFFICE/OUTPATIENT [facility] MDM 60-74 MINUTES Harsh Coffey MD [address] [place] [address] Referral ID Status Reason Start Date Expiration Date Visits Requested Visits Authorized [id number] Authorized PCP Requested Referral 2 05/09/2023 1 1 Summary Purpose Family History No Family History Records FoundNo Family History Records FoundNo Family History Records FoundNo Family History Records Found Advance Directives Advance Directive Response Recorded Date/ Time Advance Directives No January 03 10:07am Chief Complaint and Reason for Visit Chief Complaint left cerebellar CVA s/p Suboccipital craniectomy/c fall Reason for Visit Cerebellar infarct Hydrocephalus Hypertension Impaired mobility and activities of daily living Obesity (BMI 35.0-39.9 without comorbidity) S/P WINDOW GLASS CUTTER OFF shunt Tachycardia Chief Complaint left cerebellar CVA s/p Suboccipital craniectomy/c fall Reason for Visit Cerebellar infarct Dizziness DVT, popliteal, acute Hydrocephalus Hypertension Impaired mobility and activities of daily living Nausea Obesity (BMI 35.0-39.9 without comorbidity) S/P WINDOW GLASS CUTTER OFF shunt Tachycardia Additional Source Comments Patient Care team informatio n (unrecognized section and content) Team Status: Active Member Role Status Dates Awais Garcia DO Primary Care Provider Active Team Status: Inactive Member Role Status Dates PHYSICIAN NO FAMILY Primary Care Provider Active Srinivas Patricia MD Admit Provider, Attending Provider A ctive Jolly Hay Other Provider Active Megha Lacy , DO Other Provider Active Inés Ly MD Other Provider Active Pawan Oates , DO Other Provider Active Rita Pierce , ANP-BC Other Provider Active Pilo Nieto , DO Other Provider Active Suha Terry , SUBSTATION INSPECTOR Other Provider Active Victorina Malloy , SCENARIO WRITER-C Other Provider Active Kendal Wei , SUBSTATION INSPECTOR-FIRST BREAKER FEEDER-C Other Provider Active Vianey Avilez , DICTATING TRANSCRIBING MACHINE SERVICER Other Provider Active Gerardo Miranda MD Other Provider Active Gracie Pizano , SCENARIO WRITER-C Other Provider Active Derek Argueta MD Other Provider Active Tony Fuentes MD Other Provider Active Jaspal Rutledge , CSTFA Other Provider Active Thom Zayas MD Other Provider Active Caitlyn Mckeon , SCENARIO WRITER-C Other Provider Active Len Lopez MD Other Provider Active Bhavya Ferrer MD Other Provider Active Team Status: Inactive Member Role Status Dates Ashely Torres MD Emergency Provider Active Awais Garcia , DO Primary Care Provider Active Shirt Cleaner Relationship Specialty Start Date End Date Awais Garcia, DO [address] [place] [address] PCP - General Internal Medicine 05/12/22 Shirt Cleaner Relationship Specialty Start Date End Date Awais Garcia, DO [address] [place] [address] PCP - General Internal Medicine 05/12/22 Team Status: Active Member Role Status Dates PHYSICIAN NO FAMILY Primary Care Provider Active Srinivas Patricia MD Admit Provider, Attending Provider A ctive Source Comments (unrecognize d section and content) In the event this informatio n is protected by the Federal Confidentiality of Alcohol and Drug Abuse Patient Records regulations: The Federal rules restrict any use of the information to criminally investigate or prosecute any alcohol or drug abuse patient.[facility] the event this information is protected by the Federal Confidentiality of Alcohol and Drug Abuse Patient Records regulations: The Federal rules restrict any use of the information to criminally investigate or prosecute any alcohol or drug abuse patient.[facility] the event this information is protected by the Federal Confidentiality of Alcohol and Drug Abuse Patient Records regulations: The Federal rules restrict any use of the information to criminally investigate or prosecute any alcohol or drug abuse patient.[facility] the event this information is protected by the Federal Confidentiality of Alcohol and Drug Abuse Patient Records regulations: The Federal rules restrict any use of the information to criminally investigate or prosecute any alcohol or drug abuse patient.[facility] Reason for Visit (unrecogniz ed section and content) Med and lab request Reason Comments Consult Reason Comments Appointment Reason Comments Pre-Op Visit (unrecognized sect ion and content) No Status Records FoundNo Status Records FoundNo Status Records FoundNo Status Records Found INFORMATION SOURCE (unrecogn ized section and content) DATE CREATED AUTHOR 06/11/2022 [facility] DATE CREATED AUTHOR AUTHOR'S ORGANIZ ATION 08/12/2022 [facility] DATE CREATED AUTHOR AUTHOR'S ORGANIZ ATION 01/31/2023 [facility] DATE CREATED AUTHOR AUTHOR'S ORGANIZ ATION 05/15/2023 [facility] FOR RECORDS PERTAINING TO PATIENTS WHO ARE OR HAVE BEEN ENROLLED IN A CHEMICAL DEPENDENCY/SUBSTANCEABUSE PROGRAM, SOME INFORMATION MAY BE OMITTED. This clinical summary was aggregated from multiple sources. Caution should be exercised in using it in the provision of clinical care. This summary normalizes information from multiple sources, and as a consequence, information in this document may materially change the coding, format and clinical context of patient data. In addition, data may be omitted in some cases. CLINICAL DECISIONS SHOULD BE BASED ON THE PRIMARY CLINICAL RECORDS. [employer] provides no warranty or guarantee of the accuracy or completeness of information in this document.
[2023-06-07 08:12] LABS: Glucose 110 mg/dL (74-106)
== END 2023-06-07 07:12 | disposition home or self-care (01) ==
LOC: LAB 07:13
PROVIDERS: PCP Internal Medicine; Visit Provider Internal Medicine
DX: R73.01 Impaired fasting glucose (principal)
CPT/HCPCS: 36415; 82947

== ENCOUNTER 2023-07-20 07:35 | Outpatient (OUT) | payer BC, SELFPAY ==
--- OUTSIDE RECORDS SUMMARY | 2023-07-20 07:39 | XMS_ITS | CCD ---
Author Name Unknown Address [address] [place] [address] Organization [facility] Care Team Providers Care Sausage Mixer Name Role Phone AWAIS GARCIA Primary Care Physician Unavailable Primary Care Provider Awais Mccormack DO Primary Care Provider AWAIS GARCIA Primary Care Unavailable CYNTHIA BLACKWOOD Referring Unavailab le COFFEY, HARSH Referring Unavailable KONRAD LILLY Referring Unavailable COFFEYHARSH CASTELLANOS Attending Unavailable AWAIS GARCIA Primary Care Unavailable CYNTHIA BLACKWOOD Referring Unavailab AWAIS Gallego Primary Care Unavailable CYNTHIA BLACKWOOD Referring Unavailab le COFFEY, HARSH Admitting Unavailable HUEY, HARSH Attending Unavailable AWAIS GARCIA Primary Care Unavailable GLEN KNIGHT Consulting Unavailable GLEN KNIGHT Admitting Unavailable JOSE, DR SARGENT Primary Care Unavailable GLEN KNIGHT Attending Unavailable JOSE, DR SARGENT Consulting Unavailable JOSE, DR SARGENT Primary Care Unavailable JOSE, DR SARGENT Admitting Unavailable JOSE, DR SARGENT Attending Unavailable JOSE, DR SARGENT Consulting Unavailable JOSE, DR SARGENT Primary Care Unavailable JOSE, DR SARGENT Admitting Unavailable JOSE, DR SARGENT Attending Unavailable KONRAD LILLY Consulting Unavailable KONRAD LILLY Admitting Unavailable KONRAD LILLY Attending Unavailable BALL, DR SARGENT Primary Care Unavailable ZIEBER, DR INÉS Ortega Consulting Unavailable ALEENA ., DR CHRISTIANSEN Attending Unavailable JOSE, DR SARGENT Primary Care Unavailable ALEENA ., DR CHRISTIANSEN Admitting Unavailable HOJairo ., DR CHRISTIANSEN Consulting Unavailable JOSE, DR SARGENT Primary Care Unavailable JOSE, DR SARGENT Admitting Unavailable JOSE, DR SARGENT Attending Unavailable HAY ., DR GODOY Consulting Unavailable HAY ., DR GODOY Admitting Unavailable HAY ., DR GODOY Attending Unavailable JOSE, DR SARGENT Primary Care Unavailable KONRAD LILLY P Procedure Practitioner Unavailab SHAIKH Kathrine Silva Admitting Unavailable DR AWAIS GARCIA Primary Care Unavailable KONRAD LILLY Consulting Unavailable SHAIKH Kathrine MCCARTHY Attending Unavailable DR INÉS WARREN Consulting Unavailable RICARDO Iqbal, DR GODOY Consulting Unavailable TERRANCE MARRERO Consulting Unavailable SHAIKH Kathrine MCCARTHY Consulting Unavailable PENNY, CHAPO Consulting Unavailable CHAPO TAYLOR Consulting Unavailable JEFF, LEN Consulting Unavailable Awais Garcia Unavailable NO FAMILY, PHYSICIAN Primary Care Provider Unava ilable MD Srinivas Patricia Admit Provider MD Srinivas Patricia Attending Provider [phone] MD Ashely Torres Emergency Provider DO Awais Garcia Primary Care Provider Jolly Hay Other Provider Unavailable DO Megha Lacy Other Provider MD Inés Ly Other Provider DO Pawan Oates Other Provider Stan, ANP-BC Rita Other Provider DO Pilo Nieto M Other Provider RADHA Terry Other Provider KARLA Malloy-Micheal Cheung Other Provider RADHA Wei-ENGINEERING [employer]BER-C Kendal Hurt Other Provider SHELBY Avilez Other Provider Unavailable MD Gerardo Miranda Other Provider KARLA Pizano-C Gracie Ortega Other Provider [phone] MD Derek Argueta Other Provider MD Tony Fuentes Other Provider [facility] Sh[facility] Other Provider UnavailMD Thom Jeff Other Provider KARLA Mckeon-Micheal Brady Other Provider MD Len Lopez Other Provider MD Bhavya Ferrer Other Provider [phone] Awais Garcia DO Primary Care Provider Srinivas Patricia Admitting Unavailable Srinivas Patricia Attending Unavailable NO FAMILY, PHYSICIAN Primary Care Unavailable Jolly Hay Consulting Unavailable Megha Lacy Consulting Unavailable Inés Ly Consulting Unavailable Pawan Oates Consulting UnavailRita Beatty Consulting Unavailable Pilo Nieto Consulting Unavailable Suha Terry Consulting Unavailable Victorina Malloy Consulting Unavailable Kendal Wei Consulting Unavailable Vianey Avilez Consulting Unavailable Gerardo Miranda Consulting Unavailable Gracie Pizano Consulting Unavailable Derek Argueta Consulting Unavailable Tony Fuentes Consulting Unavailcésar Rutledge, Jaspal Consulting Unavailable Thom Zayas Consulting Unavailable Caitlyn Mckeon Consulting Unavailable Len Lopez Consulting Unavailable Bhavya Ferrer Consulting Unavailable Kendal Barrios Admitting Unavailable Kendal Barrios Attending Unavailable Awais Garcia Primary Care Unavailable Awais Garcia Primary Care Unavailable Ashely Torres Admitting Unavailable Ashely Torres Attending Unavailable DO Awais Garcia Primary Care Provider [phone] EVER Barrios Attending Provider DONNA RIVERA Attending Unavailable DONNA RIVERA Attending Unavailable DONNA RIVERA Attending Unavailable DONNA RIVERA Admitting Unavailable Konrad LILLY Attending Unavailable Konrad LILLY Attending Unavailable Allergies Allergy Classification Reported Allergen(s) Allergy Type Date of Onset Reaction(s) Facility (1 source) [facility]; Translations: [FEATHERS] Propensity to adverse reactions to drug (disorder) 2 [facility] Repository Medications Current Medications Medication Drug Class(es) [...] hours Acetaminophen Active 500 MG PO Q4H January 22, 2023 11:00pm Start: 01-03-2023 take 2 tablets by mo uth every six hours as needed for pain and headache acetaminophen (TYLENOL) 325 mg tablet Take 2 tablets (650 mg total) by mouth every 6 (six) hours as needed for pain or headaches. 30 tablet 0 01/03/2023 Active take 1 capsule by mo uth every four hours Acetaminophen 500 MG 1 capsule as needed Orally every 4 hrs Not-Taking/PRN amitriptyline hydrochloride 10 mg oral tablet (20 sources) Tricyclic Antidepressant Start: 01-03-2023 End: 01-23-2023 take 1 tablet by mouth once daily amitriptyline (ELAVIL) 10 mg tablet Take 1 tablet (10 mg total) by mouth nightly. 0 01/03/2023 Active apixaban 5 mg oral tablet (20 sources) Factor Xa Inhibitor Start: 01-22-2023 take 1 tablet by mouth in the morning, then take 1 tablet by mouth at bedtime ELIQUIS 5 mg tablet Take 1 tablet (5 mg total) by mouth in the morning and 1 tablet (5 mg total) before bedtime. 0 01/22/2023 Active Aspirin (20 sources) Platelet Aggregation Inhibitor, Nonsteroidal Anti-inflammatory Drug Start: 02-20-2023 Adult Aspirin Start Date: 02/20/23 Status: Ordered Start: 01-03-2023 End: 01-23-2023 take 81 mg by mouth once daily in the morning Aspirin Active 81 MG PO Every morning January 23, 2023 2:06pm take 1 tablet by mouth once misty y Aspirin 81 81 MG 1 tablet Orally Once a day Active atorvastatin 10 mg oral tablet (20 sources) HMG-CoA Reductase Inhibitor Start: 01-03-2023 End: 01-23-2023 take 10 mg by mouth once daily at bedtime Atorvastatin Active 10 MG PO Daily at bedtime 30 January 23, 2023 2:06pm bacitracin 0.5 unt/mg topical ointment (20 sources) Start: 01-09-2023 End: 01-23-2023 Bacitracin Active 1 APPLIC TOPICAL Twice daily 0 January 22, 2023 11:00pm Bacitracin 500 U NIT/GM 1 application Externally twice a day Not-Taking/PRN End: 05-30-2023 bacitracin 500 unit/gram pac ket Apply 1 Application topically in the morning and 1 Application before bedtime. 0 05/30/2023 Discontinued (Therapy completed) carvedilol 6.25 mg oral tablet (20 sources) alpha-Adrenergic Melvin, beta-Adrenergic Melvin Start: 01-03-2023 End: 01-23-2023 take 1 tablet by mouth every twelve hours at mealtime Carvedilol (Coreg) 6.25 mg Tablet Active 6.25 MG PO Q12H 60 January 23, 2023 2:06pm must administer with a meal/food Start: 04-12-2022 take 1 tablet by ghada th twice daily carvedilol 12.5 mg Tab 12.5 mg = 1 tab(s), Oral, BID Start Date: 04/12/22 Status: Ordered take 1 tablet by ghada th every twelve hours Carvedilol 6.25 MG 1 [...] Ordered Start: 05-12-2022 take 1 capsule by mo [facility] four times daily cephALEXin (KEFLEX) 500 mg capsule Take 1 capsule by mouth four times daily. 40 capsule 0 05/12/2022 Active Comment on above: Take 1 capsule by mo [facility] four times daily. cyproheptadine hydrochloride 4 mg oral tablet (20 sources) Start: take 1 tablet by mouth once daily cyproheptadine (PERIACTIN) 4 mg tablet Take 1 tablet (4 mg total) by mouth nightly. 0 01/23/2023 Active Cardura (8 sources) alpha-Adrenergic Melvin Start: 0 Cardura Oral, Daily Start Date: 08/26/19 Status: Ordered Melatonin (20 sources) Start: 3 Melatonin Once a day (at bedtime) Start Date: 02/20/23 Status: Ordered Start: 01-03-2023 take 1 tablet by ghada th once daily melatonin (CIRCADIN) tablet Take 1 tablet (3 mg total) by mouth nightly. 0 01/03/2023 Active ondansetron 4 mg disintegrating oral tablet (20 sources) Serotonin-3 Receptor Antagonist Start: 05-22-2023 take 1 tablet by mouth every eight hours Ondansetron 4 MG 1 tablet on the tongue and allow to dissolve Orally tid for 30 days May, Active Start: 02-20-2023 ondansetron 4 mg Dis Tab Start Date: 02/20/23 Status: Ordered Start: 01-23-2023 take 2 tablets by mo uth every twelve hours as needed for nausea ondansetron ODT (ZOFRAN ODT) 4 mg disintegrating tablet Dissolve 2 tablets (8 mg total) on tongue every 12 (twelve) hours as needed for nausea. 0 01/23/2023 Active Start: 01-23-2023 take 4 mg by mouth e very six hours Ondansetron Active 4 MG PO Every 6 hours 07 01January 22, 2023 11:00pm Ondansetron HCl 4 MG 1 tablet SL [...] Date: 05/25/22 Status: Ordered polyethylene glycol 3350 02533 mg powder for oral solution (20 sources) Osmotic Laxative Start: 02-20-2023 take 1 g by mouth once daily Miralax 3350 17 gram packet gm, Oral, Daily Start Date: 02/20/23 Status: Ordered Start: 01-03-2023 End: 05-30-2023 Polyethylene Glycol 3350 (Mi ralax) 17 gram Powder In Packet Active 17 GM PO Daily January 23, 2023 2:06pm Ozempic (15 sources) Start: 04-12-2022 inject 0.5 mg by subcutaneous injection every week Ozempic 0.5 mg, SubCutaneous, qWeek Start Date: 04/12/22 Status: Ordered Start: 03-27-2022 semaglutide (O ZEMPIC) 0.25 mg or 0.5 mg(2 mg/1.5 mL) pen injector Start: 03-27-2022 OZEMPIC 0.25 m g or 0.5 mg(2 mg/1.5 mL) pen INJECT 0.5MG SUBCUTANEOUSLY WEEKLY 0 03/27/2022 Active Comment on above: INJECT 0.5MG SUBCUTA NEOUSLY WEEKLY Semaglutide (3 sources) Start: 01-03-2023 Semaglutide (Ozempic) 0.25 mg or 0.5 mg (2 mg/3 mL) Pen Injector Active 0.5 MG SUBCUT every week January 02, 2023 11:00pm Start: 01-03-2023 Semaglutide (O zempic) 0.25 mg or 0.5 mg (2 mg/3 mL) Pen Injector Active 0.5 MG SUBCUT every week January 03, 2023 12:00am tamsulosin hydrochloride 0.4 mg oral capsule (20 sources) alpha-Adrenergic Melvin Start: 01-23-2023 take 0.4 mg by mouth at bedtime [...] Ordered Start: 01-23-2023 take 37.5 mg by mouth once dottie ly Venlafaxine Active 37.5 MG PO Daily January 22, 2023 11:00pm take 1 capsule by [facility] every twenty-four hours in the morning venlafaxine XR (EFFEXOR XR) 37.5 mg 24 hr capsule Take 1 capsule (37.5 mg total) by mouth in the morning. 0 Active Vitamin D (7 sources) Start: 05-25-2022 Vitamin D Inte rnational_Unit, Oral, qWeek, Refills(s) 0 Start Date: 05/25/22 Status: Ordered Completed/Discontinued Medications Medication Drug Class(es) Dates Sig (Normalized) Sig (Original) azithromycin 250 mg oral tablet (20 sources) [...] afterwards, # 2 tab(s), Refills(s) 0, Pharmacy: [facility]/pharmacy #[id number] Start Date: 08/22/19 Status: Ordered 0 08/22/2019 Active Comment on above: Cipro 500 mg Tab See Instructions, Take 1 tab day prior to procedure and 1 tab day of procdure - afterwards, # 2 tab(s), Refills(s) 0, Pharmacy: [facility]/pharmacy #[id number] Start Date: 08/22/19 Status: Ordered docusate sodium 50 mg / sennosides, prison 8.6 mg oral tablet (4 sources) Start: 01-03-2023 End: 05-30-2023 take 2 tablets by mouth in the morning sennosides-docusat e sodium (SENOKOT-S) 8.6-50 mg Take 2 tablets by mouth in the morning and 2 tablets before bedtime. 0 01/03/2023 05/30/2023 Discontinued (Therapy completed) Start: 01-03-2023 End: 01-23-2023 take 2 tablets by mouth twice daily Sennosides-Docusate Sodium Discontinued 2 TAB-CAP PO Twice daily January 02, 2023 11:00pm January 23, 2023 2:07pm nystatin [id number] unt/ml / triamcinolone acetonide 1 mg/ml topical cream (4 sources) Polyene Antifungal, Corticosteroid Start: 04-05-2022 nystatin-triamcinolone (MYCOLOG II) cream Apply to affected area twice daily. APPLY TO AFFECTED AREA 0 04/05/2022 Active Comment on above: Apply to affected area twice daily. APPL Y TO AFFECTED AREA ozempic (1 mg/dose) 4 mg/3ml solution pen-injector (11 sources) inject 2 mg by subcutaneous injection [...] infarction, unspecified] Onset: 01-04-20 23 01-04-2023 Chronic Anxiety disorders (1 source) Anxiety disorder, unspecified; Translations: [ANXIETY DISORDER UNSPECIFIED] Onset: 05-28-20 Chronic Aortic; peripheral; and visceral artery aneurysms (3 sources) Dissection of vertebral artery; Translations: [Dissection of vertebral artery] Onset: 12-14-1912-13-2022 Chronic Calculus of urinary tract (20 sources) Kidney stone; Translations: [Calculus of kidney] Onset: 04-11-20 Episodic Cardiac dysrhythmias (20 sources) Palpitations; Translations: [Tachycardia] Onset: 08-07-19 Episodic Diabetes mellitus with complications (20 sources) [...] sources) Acute prostatitis; Translations: [Acute prostatitis] Episodic Late effects of cerebrovascular disease (1 source) Sequela of cerebrovascular accident; Translations: [Unspecified sequelae of cerebral infarction] 06-14-2023 Chronic Mood disorders (20 sources) Mild major depression, single episode; Translations: [Major depressive disorder, single episode, mild] Chronic Mycoses (20 sources) Candidal balanitis; Translations: [Candidal balanitis] Episodic Occlusion or stenosis of precerebral arteries (20 sources) Stenosis of left vertebral artery; Translations: [Occlusion and stenosis of left vertebral artery] Chronic Open wounds of head; neck; and trunk (3 sources) Laceration - injury; Translations: [Laceration] 01-09-2023 Episodic Other aftercare (1 source) Other senior living (current) drug therapy; Translations: [OTH CORRECTION CURRENT DRUG THERAPY] Onset: 05-28-20 Episodic Other [...] Translations: [Cough] Episodic Other nervous system disorders (3 sources) Hydrocephalus; Translations: [Hydrocephalus, unspecified] 01-04-2023 Chronic Other nervous system disorders (3 sources) Ventriculoperitoneal shunt in situ; Translations: [Presence of cerebrospinal fluid drainage device] 01-04-2023 Chronic Other nervous system disorders (3 sources) Hydrocephalus, unspecified; Translations: [Obstructive hydrocephalus] Onset: 01-04-2001-03-2023 Chronic Other nervous system disorders (2 sources) Presence of cerebrospinal fluid drainage device; Translations: [Presence of cerebrospinal fluid drainage device] 01-03-2023 Chronic Other non-traumatic joint disorders (20 sources) Arthralgia of the pelvic region and thigh; Translations: [Pain in left hip] Episodic Other nutritional; endocrine; and metabolic disorders (7 sources) Body mass index 40+ - severely obese; Translations: [Body mass index (BMI) 40.0-44.9, adult] Onset: 05-09-20 Chronic Other nutritional; endocrine; and metabolic disorders (3 sources) Body mass index (BMI) 40.0-44.9, adult; Translations: [BMI 40.0-44.9, adult (HCC)] Onset: 04-06-20 Chronic Other nutritional; endocrine; and metabolic disorders (4 sources) Obesity, unspecified; Translations: [Obesity, unspecified] Onset: 04-06-2001-03-2023 Chronic Other nutritional; endocrine; and metabolic disorders (2 sources) Morbid (severe) obesity due to excess calories; Translations: [MORBID SEVERE OBES D/T EXCESS SHANT] Onset: 01-26-20 Chronic Other nutritional; endocrine; and metabolic disorders (20 sources) Body mass index 30+ - obesity; Translations: [Obesity, unspecified] 01-04-2023 Chronic Other nutritional; endocrine; and metabolic disorders (20 sources) Severe obesity; Translations: [Morbid (severe) obesity [...] Translations: [Family history of nephrolithiasis] Onset: 05-09-20 22 Episodic Residual codes; unclassified (20 sources) Tobacco user; Translations: [Tobacco use] Episodic Spondylosis; intervertebral disc disorders; other back problems (20 sources) Other spondylosis with radiculopathy, lumbosacral region; Translations: [Cervical spondylosis without myelopathy] Onset: 01-26-20 22 Chronic Unclassified (4 sources) CONTACT W/AND (SUSP) EXPOS COVID-19; Translations: [CONTACT W/AND (SUSP) EXPOS COVID-19] Onset: 04-06-20 22 Unclassified (1 source) Unspecified sequelae of cerebral infarction; Translations: [Unspecified sequelae of cerebral infarction] Onset: 06-15-19 24 Unclassified (1 source) Laceration without foreign body of lip, initial encounter; Translations: [Laceration without foreign body of lip, initial encounter] Onset: 01-10-20 23 Urinary tract infections (8 sources) Urinary tract infectious disease; Translations: [Urinary tract infection, site not specified] Onset: 04-06-20 22 Episodic Varicose veins of lower extremity (20 sources) Pain co-occurrent and due to varicose veins of bilateral legs; Translations: [Varicose veins of bilateral lower extremities with pain] Episodic Past or Other Problems Problem Classification Problem Date Documented Date Episodic/Chronic Acute and unspecified renal failure (1 source) Acute kidney failure, unspecified; Translations: [ACUTE KIDNEY FAILURE UNSPECIFIED] Onset: 04-06-2022 Episodic Administrative/social admission (6 sources) Other reduced mobility; Translations: [Impaired mobility and activities of daily living] Onset: 01-03-2023 01-04-2023 Episodic Conditions associated with dizziness or vertigo (4 sources) Dizziness; Translations: [Dizziness and giddiness] Onset: 01-03-2023 01-14-2023 Episodic Mood disorders (3 sources) Mood disorders Onset: 02-21-2023 Resolved: 05-30-2023 05-30-2023 Nausea and vomiting (6 sources) Nausea; Translations: [Nausea] Onset: 01-03-2023 01-14-2023 Episodic Other connective tissue disease (1 source) Pain in left leg; Translations: [PAIN IN LEFT LEG] Onset: 01-27-2022 Episodic Other nervous system disorders (3 sources) Cerebrospinal fluid leak; Translations: [CSF leak] Onset: 02-07-2023 02-07-2023 Episodic Other screening for suspected conditions (not mental disorders or infectious disease) (1 source) Encounter for screening for malignant neoplasm of prostate; Translations: [ENC SCREEN MALIG NEOPLASM PROSTATE] Onset: 01-31-2022 Episodic Residual codes; unclassified (1 source) Other specified health status; Translations: [Other specified health status] Onset: 01-03-2023 Episodic Septicemia (except in labor) (3 sources) Sepsis, unspecified organism; Translations: [Other Gram-negative sepsis] Onset: 03-29-2022 Episodic Unclassified (1 source) CONTACT W/AND (SUSP) EXPOS COVID-19; Translations: [CONTACT W/AND (SUSP) EXPOS COVID-19] Onset: 07-21-2022 Viral infection (20 sources) Disease caused by 2019-nCoV; Translations: [COVID-19] Results Test Name Value Interpretation Reference Range Facility Patient Letter FTon 2023 Patient Letter [facility] (Inserted Image. Maty ble to display) [address] [place] [id number] June 20, 2023 TARAS HAYWARD [address] [facility] [address] [place] [address] : 1970 Dear Mr. Taras Hayward, I am corresponding to you by certified mail because you have medical conditions, the kidney stones, as well as prostatic enlargement and history of retaining urine, which requires follow up. It was recommended that you follow up with me but you cancelled for your appointment. We have been unable to contact you to reschedule with another abdominal x-ray prior to your visit. Please contact my office at your earliest convenience and we will reschedule your appointment so I can closely monitor your condition. I cannot be responsible for your urologic care if you do not follow up as recommended. Sincerely, Konrad Lilly M.D., FACS [facility] [place], Konrad Wolff [facility] C Urineon 02-22-2023 Bacteria identified Cx Nom (U) Microbiology PROCEDURE: Urine Culture [R1] SOURCE: U CleanCatch BODY SITE: COLLECTED DATE/TIME: 02/20/2023 14:08 EDT RECEIVED DATE/TIME: 02/20/2023 19:51 EDT START DATE/TIME: 02/20/2023 19:51 EDT FREE TEXT SOURCE: MARQUISE PAGE, DONNA RIVERA PA-C, DONNA Hurt FINAL REPORTS Final Report [...] Locations R1: This test was performed at: [facility], [address] [place] [address], [phone]- , [place], Normal [facility] Comment on above: Performed By: #### 2 [id number] #### [facility] [address] [place] [id number] Ambulatory Visit Summaryon 0 02-20-2023 Ambulatory Visit Summary TARAS HAYWARD :1970 Visit Date:02/20/2023 Ambulatory Visit Instructions Your Diagnosis Urinary retention Kidney stone Gross hematuria Urinary tract infection Tests Performed Urnls Dip Stick Auto w/o Microscopy POC 66641 XR Abdomen 1 View -- Results Pending [...] ALCALA, Konrad Jones Where: [facility] Patient Educationon 02-21-20 Patient Education Nephrology Dietary [...] ? 8 oz (237 mL) of milk, xzhfmmn-wzohnmsallte-uaxgb milk, and calcium-fortifiedfruit juice. Calcium-fortified means that [...] Spinach (cooked), rhubarb, beets, sweet potatoes, and [place] Citizen chard. ? Peanuts. ? Potato chips, citizen of [place] fries, and baked potatoes with skin on. ? Nuts and nut products. ? Chocolate. ? If you regularly take a diuretic medicine, make sure to eat at least 1 or 2 servings of fruits or vegetables that are high in potassium each day. These include: ? Avocado. ? Banana. ? [place], prune, carrot, or tomato juice. ? Baked [...] fish oil, or vitamin B6. ? Take tfgl-hji-ddbxzkc and prescription medicines only as told by your health care provider. These include supplements. What foods should I limit? Limit your in (more content not included)... Normal [facility] Urology Office/Clinic Noteon 02-20-2023 Urology Office/Clinic Note [...] QOL 0. PVR 13cc -Continue Flomax Ordered: 51084 Measure Post Void residual urine and/or bladder capacity by US- non-imaging E&M of Est. Patient Moderate 30-39 Min 71264 Urnls Dip Stick Auto w/o Microscopy POC 83105 2. Urinary tract infection (N39.0: Urinary tract infection, site not specified) UA today shows leuks and nitrates. asx. -Will send urine for cx. Will call pt with results. Ordered: 57237 Measure Post Void residual urine and/or bladder capacity by US- non-imaging E&M of Est. Patient Moderate 30-39 Min 89215 Urnls Dip Stick Auto w/o Microscopy POC 39190 3. Kidney stone (N20.0: Calculus of kidney) S/p PCNL at [facility] on 05/22/[address] Coffey for 3cm R renal stone. KUB 11/14/22 - 10 mm calculus projecting over the Lt kidney region metabolic work-up ordered by [facility] in Jul 2022. visit postponed due to admission this summer/stroke. -complete metabolic workup & f/u w [facility] in 3 mos w repeat KUB Ordered: 32362 Measure Post Void residual urine and/or bladder capacity by US- non-imaging E&M of Est. Patient Moderate 30-39 Min 47164 Urnls Dip Stick Auto w/o Microscopy POC 60059 XR Abdomen 1 View Follow up in 3 mos w/[facility]. All questions/concerns were discussed. Pt to call the office if he encounters any issues prior. Pt acknowledges understanding. Follow-up With When Contact Information MARQUISE PAGE, DONNA Hurt, URL In 3 months [address] [address] Additional Instructions: w/[facility] Patient Education Dietary Guidelines [...] restrictive procedure, with (more content not included)... Normal [facility] Comment on above: Result Comment: Elec tronically Signed By: DONNA RIVERA PA-C\.br\Date and Time Signed: 02/20/23 11:17 EDT\.br\Electronically Co-Signed By: Thelma Robertson\.br\Date and Time Co-Signed: 02/20/23 11:08 EDT Lab [facility] 02-06-2023 Lab Reports [id number]:127 [facility] Lab Reports [id number]#[id number]:127 [facility] Lab Report[facility] 02-02-2023 Lab Reports [id number]#[id number]:127 [facility] US venous duplex LE RTon US venous duplex LE RT [facility] [place] [address] Ultrasound Report Signed Patient: Taras Hayward MR#: [id number] 54 : 1970 Acct:[id number] Age/Sex: 52 / M ADM Date: 01/03/23 Loc: Room: [address] [place] [address] Type: ADM IN Attending Dr: Srinivas Patricia [...] Gerardo Miranda M.D.01/23/2023 5:00 PM Dictation Location: [place] [address] Tech: Rika Sandovaler Transcribed By: ADELA 01/23/23 170 Dictated By: Gerardo Miranda MD 01/23/23 165 Signed By: 01/23/23 170 Normal [facility] Automated erythrocytes count in urine sediment (number/area)Ordered By: Tisha Cardona on 01-22-2023 RBC Auto (Urine sed) [#/Area] 20-49 [HPF] 0-4 [facility] Automated leukocytes count i n urine sediment (number/area)Ordered By: Tisha Cardona on 01-22-2023 WBC Auto (Urine sed) [#/Area] 5-9 [HPF] 0-4 [facility] Automated urine sediment shant cium oxalate crystal count by microscopy (number/high powOrdered By: Tisha Cardona on 01-22-2023 Calcium oxalate crystals LM.HPF (Urine sed) [#/Area] Rare [HPF] [facility] Basic Metabolic Panelon 01-09 Anion gap [Moles/Vol] 10.6 mmol/L Normal 6.0-15.0 [facility] Comment on above: Performed By: #### B MP, CBC ####[facility] [address] [place] [id number] [facility] Calcium [Mass/Vol] 9.3 mg/dL Normal 8.6-10.3 [facility] Comment on above: Performed By: #### B MP, CBC ####[facility] [address] [place] [address] [facility] Chloride [Moles/Vol] 98 mmol/L Normal 98-107 [facility] Comment on above: Performed By: #### B MP, CBC ####[facility] [address] [place] [id number] [facility] CO2 [Moles/Vol] 29.2 mmol/L Normal 21.0-31.0 [facility] Comment on above: Performed By: #### B MP, CBC ####[place] [address] [place] [id number] [facility] Creatinine [Mass/Vol] 1.04 mg/dL Normal 0.70-1.30 [facility] Comment on above: Performed By: #### B MP, CBC ####[place] [address] [place] [id number] [place] Creatinine Clr Calc Pharmacy 131.71 Normal [facility] Comment on above: Result Comment: PERF ORMED BY: [facility] [address] [place] [id number] PATHOLOGIST REFINED SYRUP OPERATOR DEVANG LEMONS M.D. Performed By: #### B MP, CBC ####[address] GFR/1.73 sq M.predicted MDRD (S/P/Bld) [Vol rate/Area] mL/min/{1.73_m2} Normal [facility] Comment on above: Performed By: #### B MP, CBC ####[place] [address] [place] [id number] [facility] Glucose [Mass/Vol] 147 mg/dL High 70-100 [facility] Comment on above: Result Comment: [facility] Glucose Reference Range is dependent on time and content of last meal. Glucose of more than 200 mg/dL in a nonstressed, ambulatory subject supports the diagnosis of Diabetes Mellitus. ADA recommended reference range Performed By: #### B MP, CBC ####[place] [id number] [facility] Potassium [Moles/Vol] 3.8 mmol/L Normal 3.5-5.1 [facility] Comment on above: Performed By: #### B MP, CBC ####[place] [id number] [facility] Sodium [Moles/Vol] 134 mmol/L Low 136-145 [facility] Comment on above: Performed By: #### B MP, CBC ####[facility] [address] [place] [id number] [facility] Urea nitrogen [Mass/Vol] 16 mg/dL Normal 7-25 [facility] Comment on above: Performed By: #### B MP, CBC ####[facility] [address] [place] [id number] [facility] Basophils Auto (Bld) [#/Vol] Ordered By: Tisha Cardona on 01-22-2023 Basophils (Bld) [#/Vol] 0.0 10*3/uL 0.0-0.2 [facility] Basophils/100 WBC Auto (Bld) Ordered By: Tisha Cardona on 01-22-2023 Basophils/100 WBC (Bld) 0.3 % . [facility] Bilirubin Test strip Ql (U)O rdered By: Tisha Cardona on 01-22-2023 Bilirubin Ql (U) Negative Negative [facility] Calcium [Mass/volume] in Ser um or PlasmaOrdered By: Tisha Cardona on 01-22-2023 Calcium [Mass/Vol] 9.3 mg/dL 8.6-10.3 [facility] Carbon dioxide, total [Moles /volume] in Serum or PlasmaOrdered By: Tisha Cardona on 01-22-2023 CO2 [Moles/Vol] 29.2 mmol/L 21.0-31.0 [facility] Chloride [Moles/volume] in S geno or PlasmaOrdered By: Tisha Cardona on 01-22-2023 Chloride [Moles/Vol] 98 mmol/L 98-107 [facility] Color Auto (U)Ordered By: Hubert Cardona on 01-22-2023 Color (U) Hodgeman Yellow [facility] Complete Blood Count Auto Di ffon 01-22-2023 Basophils (Bld) [#/Vol] 0.0 10*3/uL Normal 0.0-0.2 [facility] Comment on above: Result Comment: PERF ORMED BY: [facility] [address] [place] [address] PATHOLOGIST REFINED SYRUP OPERATOR DEVANG LEMONS M.D. Performed By: #### B MP, CBC ####[place] [address] Basophils/100 WBC (Bld) 0.3 % Normal . [facility] Comment on above: Performed By: #### B MP, CBC ####[place] [id number] [facility] Eosinophils (Bld) [#/Vol] 0.2 10*3/uL Normal 0.0-0.45 [facility] Comment on above: Performed By: #### B MP, CBC ####[place] [address] Eosinophils/100 WBC (Bld) 2.4 % Normal . [facility] Comment on above: Performed By: #### B MP, CBC ####[address] Erythrocyte distribution width (RBC) [Ratio] 14.8 % Normal 12.0-14.8 [facility] Comment on above: Performed By: #### B MP, CBC ####[address] Hematocrit (Bld) [Volume fraction] 42.6 % Normal 38.8-50.0 [facility] Comment on above: Performed By: #### B MP, CBC ####[place] [id number] [facility] Hemoglobin (Bld) [Mass/Vol] 13.8 g/dL Normal 13.0-17.0 [facility] Comment on above: Performed By: #### B MP, CBC ####[place] [id number] [facility] Lymphocytes (Bld) [#/Vol] 2.0 10*3/uL Normal 1.00-4.8 [facility] Comment on above: Performed By: #### B MP, CBC ####[place] [id number] [facility] Lymphocytes/100 WBC (Bld) 25.4 % Normal . [facility] Comment on above: Performed By: #### B MP, CBC ####[address] MCH (RBC) [Entitic mass] 27.8 pg Normal 27.5-35.2 [facility] Comment on above: Performed By: #### B MP, CBC ####[address] MCV (RBC) [Entitic vol] 85.7 fL Normal 83.5-101 [facility] Comment on above: Performed By: #### B MP, CBC ####[address] Mean Corpuscular HGB Conc 32.4 g/dL Low 32.5-35.6 [facility] Comment on above: Performed By: #### B MP, CBC ####[address] Monocytes (Bld) [#/Vol] 0.5 10*3/uL Normal 0.0-0.8 [facility] Comment on above: Performed By: #### B MP, CBC ####[address] Monocytes/100 WBC (Bld) 6.7 % Normal . [facility] Comment on above: Performed By: #### B MP, CBC ####[address] Neutrophils (Bld) [#/Vol] 5.2 10*3/uL Normal 1.8-7.7 [facility] Comment on above: Performed By: #### B MP, CBC ####[address] Neutrophils/100 WBC (Bld) 65.2 % Normal . [facility] Comment on above: Performed By: #### B MP, CBC ####[address] NRBC% 0.1 /100{WBC} Normal 0-0.5 [facility] Comment on above: Performed By: #### B MP, CBC ####[place] [address] Platelet mean volume (Bld) [Entitic vol] 8.0 fL Normal 6.6-10.1 [facility] Comment on above: Performed By: #### B MP, CBC ####[place] [address] Platelets (Bld) [#/Vol] 280 10*3/uL Normal 150-450 [facility] Comment on above: Performed By: #### B MP, CBC ####[address] RBC (Bld) [#/Vol] 4.97 10*6/uL Normal 3.90-5.60 [facility] Comment on above: Performed By: #### B MP, CBC ####[address] WBC (Bld) [#/Vol] 8.0 10*3/uL Normal 4.1-10.5 [facility] Comment on above: Performed By: #### B MP, CBC ####[address] Creatinine [Mass/volume] in Serum or PlasmaOrdered By: Tisha Cardona on 01-22-2023 Creatinine [Mass/Vol] 1.04 mg/dL 0.70-1.30 [facility] Dipstick and Microscopicon 0 01-22-2023 Appearance (U) Cloudy Critically abnormal Clear [facility] Comment on above: Order Comment: Name Collection Type:: Kramer Catheter Performed By: #### C UU, ADDONUAPLUS #### [facility] [address] [place] [address] [place] Bacteria,Urine Rare High None Seen [facility] Comment on above: Order Comment: Name Collection Type:: Kramer Catheter Performed By: #### C UU, ADDONUAPLUS #### [facility] [address] [place] [address] [place] Bilirubin,Urine Negative Normal Negative [facility] Comment on above: Order Comment: Name Collection Type:: Kramer Catheter Performed By: #### C UU, ADDONUAPLUS #### [facility] [address] [place] [address] [place] Calcium Oxalate Crystals,Urine Rare Normal [facility] Comment on above: Order Comment: Name Collection Type:: Kramer Catheter Performed By: #### C UU, ADDONUAPLUS #### [facility] [address] [place] [address] [place] Color (U) Hodgeman Critically abnormal Yellow [facility] Comment on above: Order Comment: Name Collection Type:: Kramer Catheter Performed By: #### C UU, ADDONUAPLUS #### [address] Glucose Ql (U) Normal Normal Normal [facility] Comment on above: Order Comment: Name Collection Type:: Kramer Catheter Performed By: #### C UU, ADDONUAPLUS #### [facility] [address] [place] [address] [place] Hyaline Casts,Urine None Seen Normal 0-8 [facility] Comment on above: Order Comment: Name Collection Type:: Kramer Catheter Performed By: #### C UU, ADDONUAPLUS #### [address] Ketones Ql (U) Trace High Negative [facility] Comment on above: Order Comment: Name Collection Type:: Kramer Catheter Performed By: #### C UU, ADDONUAPLUS #### [facility] [address] [place] [address] [place] Leukocyte esterase Test strip Ql (U) 2+ High Negative [facility] Comment on above: Order Comment: Name Collection Type:: Kramer Catheter Performed By: #### C UU, ADDONUAPLUS #### [facility] [address] [place] [address] [place] Nitrite,Urine Negative Normal Negative [facility] Comment on above: Order Comment: Name Collection Type:: Kramer Catheter Performed By: #### C UU, ADDONUAPLUS #### [facility] [address] [place] [address] Occult Blood,Urine 3+ High Negative [facility] Comment on above: Order Comment: Name Collection Type:: Kramer Catheter Result Comment: PERF ORMED BY: [place] [address] PATHOLOGIST REFINED SYRUP OPERATOR DEVANG LEMONS M.D. Performed By: #### C UU, ADDONUAPLUS #### [address] pH (U) 5.5 [pH] Normal 5.0-9.0 [facility] Comment on above: Order Comment: Name Collection Type:: Kramer Catheter Performed By: #### C UU, ADDONUAPLUS #### [address] Protein (U) [Mass/Vol] 100 mg/dL High Negative [facility] Comment on above: Order Comment: Name Collection Type:: Kramer Catheter Performed By: #### C UU, ADDONUAPLUS #### [address] RBC,Urine 20-49 High 0-4 [facility] Comment on above: Order Comment: Name Collection Type:: Kramer Catheter Performed By: #### C UU, ADDONUAPLUS #### [address] Specificy [place],Urine 1.024 Normal 1.001-1.03 0 [facility] Comment on above: Order Comment: Name Collection Type:: Kramer Catheter Performed By: #### C UU, ADDONUAPLUS #### [address] Squamous Epithelial Cell,Urine None Seen Normal 0-2 [facility] Comment on above: Order Comment: Name Collection Type:: Kramer Catheter Performed By: #### C UU, ADDONUAPLUS #### [address] Urobilinogen,Urine Normal Normal Normal [facility] Comment on above: Order Comment: Name Collection Type:: Kramer Catheter Performed By: #### C UU, ADDONUAPLUS #### [facility] [address] WBC,Urine 5-9 High 0-4 [facility] Comment on above: Order Comment: Name Collection Type:: Kramer Catheter Performed By: #### C UU, ADDONUAPLUS #### [facility] [address] Yeast,Urine None Seen Normal None Seen [facility] Comment on above: Order Comment: Name Collection Type:: Kramer Catheter Result Comment: PERF ORMED BY: [place] [address] PATHOLOGIST REFINED SYRUP OPERATOR DEVANG LEMONS M.D. Performed By: #### C UU, ADDONUAPLUS #### [facility] [address] Eosinophils Auto (Bld) [#/Vo l]Ordered By: Tisha Cardona on 01-22-2023 Eosinophils (Bld) [#/Vol] 0.2 10*3/uL 0.0-0.45 [facility] Eosinophils/100 WBC Auto (Bl d)Ordered By: Tisha Cardona on 01-22-2023 Eosinophils/100 WBC (Bld) 2.4 % . [facility] Erythrocyte distribution wid th Auto (RBC) [Ratio]Ordered By: Tisha Cardona on 01-22-2023 Erythrocyte distribution width (RBC) [Ratio] 14.8 % 12.0-14.8 [facility] Glucose [Mass/volume] in Ser um or PlasmaOrdered By: Tisha Cardona on 01-22-2023 Glucose [Mass/Vol] 147 mg/dL 70-100 [facility] Comment on above: ADA recommended refe rence rangeRandom Glucose Reference Range is dependent on time and content of last meal. Glucose of more than 200 mg/dL in a nonstressed, ambulatory subject supports the diagnosis of Diabetes Mellitus. Hematocrit Auto (Bld) [Volum e fraction]Ordered By: Tisha Cardona on 01-22-2023 Hematocrit (Bld) [Volume fraction] 42.6 % 38.8-50.0 [facility] Hemoglobin [Mass/volume] in BloodOrdered By: Tisha Cardona on 01-22-2023 Hemoglobin (Bld) [Mass/Vol] 13.8 g/dL 13.0-17.0 [facility] Ketones Auto test strip (U) [Mass/Vol]Ordered By: Tisha Cardona on 01-22-2023 Ketones (U) [Mass/Vol] Trace Negative [facility] - UrinalysisOrder ed By: Tisha Cardona on 01-22-2023 Hyaline casts LM Ql (Urine sed) None seen [LPF] 0-8 [facility] Leukocytes [#/volume] correc jose ramon for nucleated erythrocytes in Blood by Automated counOrdered By: Tisha Cardona on 01-22-2023 WBC corrected for nucl RBC Auto (Bld) [#/Vol] 8.0 10*3/uL 4.1-10.5 [facility] Lymphocytes Auto (Bld) [#/Vo l]Ordered By: Tisha Cardona on 01-22-2023 Lymphocytes (Bld) [#/Vol] 2.0 10*3/uL 1.00-4.8 [facility] Lymphocytes/100 WBC Auto (Bl d)Ordered By: Tisha Cardona on 01-22-2023 Lymphocytes/100 WBC (Bld) 25.4 % . [facility] MCH Auto (RBC) [Entitic mass ]Ordered By: Tisha Cardona on 01-22-2023 MCH (RBC) [Entitic mass] 27.8 pg 27.5-35.2 [facility] MCHC Auto (RBC) [Mass/Vol]Or dered By: Tisha Cardona on 01-22-2023 MCHC (RBC) [Mass/Vol] 32.4 g/dL 32.5-35.6 [facility] MCV Auto (RBC) [Entitic vol] Ordered By: Tisha Cardona on 01-22-2023 MCV (RBC) [Entitic vol] 85.7 fL 83.5-101 [facility] Monocytes Auto (Bld) [#/Vol] Ordered By: Tisha Cardona on 01-22-2023 Monocytes (Bld) [#/Vol] 0.5 10*3/uL 0.0-0.8 [facility] Monocytes/100 WBC Auto (Bld) Ordered By: Tisha Cardona on 01-22-2023 Monocytes/100 WBC (Bld) 6.7 % . [facility] Neutrophils Auto (Bld) [#/Vo l]Ordered By: Tisha Cardona on 01-22-2023 Neutrophils (Bld) [#/Vol] 5.2 10*3/uL 1.8-7.7 [facility] Neutrophils/100 WBC Auto (Bl d)Ordered By: Tisha Cardona on 01-22-2023 Neutrophils/100 WBC (Bld) 65.2 % . [facility] Nitrite Test strip Ql (U)Ord ered By: Tisha Cardona on 01-22-2023 Nitrite Ql (U) Negative Negative [facility] No Panel InformationOrdered By: Tisha Cardona on 01-22-2023 Estimated GFR (CKD-EPI) > 60.0 mL/Min [facility] Pharmacy Creatinine Clearance (Chem 131.71 [facility] Nucleated erythrocytes [Pres ence] in Blood by Automated countOrdered By: Tisha Cardona on 01-22-2023 Nucleated RBC Auto Ql (Bld) 0.1 /100{WBC} 0-0.5 [facility] Platelet mean volume Auto (B ld) [Entitic vol]Ordered By: Tisha Cardona on 01-22-2023 Platelet mean volume (Bld) [Entitic vol] 8.0 fL 6.6-10.1 [facility] Platelets Auto (Bld) [#/Vol] Ordered By: Tisha Cardona on 01-22-2023 Platelets (Bld) [#/Vol] 280 10*3/uL 150-450 [facility] Potassium [Moles/volume] in Serum or PlasmaOrdered By: Tisha Cardona on 01-22-2023 Potassium [Moles/Vol] 3.8 mmol/L 3.5-5.1 [facility] Protein Auto test strip (U) [Mass/Vol]Ordered By: Tisha Cardona on 01-22-2023 Protein (U) [Mass/Vol] 100 mg/dL Negative [facility] RBC Auto (Bld) [#/Vol]Ordere d By: Tisha Cardona on 01-22-2023 RBC (Bld) [#/Vol] 4.97 10*6/uL 3.90-5.60 [facility] Serum or plasma anion gap de terminationOrdered By: Tisha Cardona on 01-22-2023 Anion gap [Moles/Vol] 10.6 mmol/L 6.0-15.0 [facility] Sodium [Moles/volume] in Ser um or PlasmaOrdered By: Tisha Cardona on 01-22-2023 Sodium [Moles/Vol] 134 mmol/L 136-145 [facility] Specific gravity Auto test s trip (U) [Rel density]Ordered By: Tisha Cardona on 01-22-2023 Specific gravity (U) [Rel density] 1.024 1.001-1.03 0 [facility] Squamous epithelial cells de tection in urine sediment by light microscopyOrdered By: Tisha Cardona on 01-22-2023 Epithelial cells.squamous LM Ql (Urine sed) None seen [HPF] 0-2 [facility] Urea nitrogen [Mass/volume] in Serum or PlasmaOrdered By: Tisha Cardona on 01-22-2023 Urea nitrogen [Mass/Vol] 16 mg/dL 7-25 [facility] Urine Cultureon 01-22-2023 Bacteria identified Cx Nom (U) <9,000 colonies/ml mixed bacterial skin contaminants 2 Days PERFORMED BY: [place] [address] PATHOLOGIST REFINED SYRUP OPERATOR DEVANG LEMONS M.D. Normal [facility] Comment on above: Performed By: #### C UU, ADDCONOR #### [address] Urine bacteria detection by automated methodOrdered By: Tisha Cardona on 01-22-2023 Bacteria Auto Ql (U) Rare None Seen [facility] Urine clarity by refractomet ry automatedOrdered By: Tisha Cardona on 01-22-2023 Clarity Refractometry automated (U) Cloudy Clear [facility] Urine culture routineOrdered By: Tisha Cardona on 01-22-2023 Bacteria identified Cx Nom (U) 2 Days [facility] Urine glucose measurement by automated test strip (mass/volume)Ordered By: Tisha Cardona on 01-22-2023 Glucose Auto test strip (U) [Mass/Vol] Normal mg/dL Normal [facility] Urine hemoglobin detection b y automated test stripOrdered By: Tisha Cardona on 01-22-2023 Hemoglobin Auto test strip Ql (U) 3+ Negative [facility] Urine leukocyte esterase det ection by automated test stripOrdered By: Tisha Cardona on 01-22-2023 Leukocyte esterase Auto test strip Ql (U) 2+ Negative [facility] Urobilinogen Auto test strip (U) [Mass/Vol]Ordered By: Tisha Cardona on 01-22-2023 Urobilinogen (U) [Mass/Vol] Normal mg/dL Normal [facility] WBC Auto (Bld) [#/Vol]Ordere d By: Tisha Cardona on 01-22-2023 WBC (Bld) [#/Vol] 8.0 10*3/uL 4.1-10.5 [facility] Yeast detection in urine sed iment by light microscopyOrdered By: Tisha Cardona on 01-22-2023 Yeast LM Ql (Urine sed) None seen [HPF] None Seen [facility] pH Auto test strip (U)Ordere d By: Tisha Cardona on 01-22-2023 pH (U) 5.5 [pH] 5.0-9.0 [facility] Basic Metabolic Panelon 01-09 Anion gap [Moles/Vol] 13.5 mmol/L Normal 6.0-15.0 [facility] Comment on above: Performed By: #### C BC, BMP ####[facility] [address] [place] [address] [facility] Calcium [Mass/Vol] 8.8 mg/dL Normal 8.6-10.3 [facility] Comment on above: Performed By: #### C BC, BMP ####[facility] [place] [address] [place] Chloride [Moles/Vol] 99 mmol/L Normal 98-107 [facility] Comment on above: Performed By: #### C BC, BMP ####[facility] [place] [address] [facility] CO2 [Moles/Vol] 26.2 mmol/L Normal 21.0-31.0 [facility] Comment on above: Performed By: #### C BC, BMP ####[place] [address] [place] [address] [facility] Creatinine [Mass/Vol] 1.02 mg/dL Normal 0.70-1.30 [facility] Comment on above: Performed By: #### C BC, BMP ####[place] [address] [place] [address] [place] Creatinine Clr Calc Pharmacy 135.51 [facility] Comment on above: Result Comment: PERF ORMED BY: [facility] [address] [place] [id number] PATHOLOGIST REFINED SYRUP OPERATOR DEVANG LEMONS M.D. Performed By: #### C BC, BMP ####[address] [address] [facility] GFR/1.73 sq M.predicted MDRD (S/P/Bld) [Vol rate/Area] mL/min/{1.73_m2} [facility] Comment on above: Performed By: #### C BC, BMP ####[address] [address] [facility] Glucose [Mass/Vol] 109 mg/dL High 70-100 [facility] Comment on above: Result Comment: [place] Glucose Reference Range is dependent on time and content of last meal. Glucose of more than 200 mg/dL in a nonstressed, ambulatory subject supports the diagnosis of Diabetes Mellitus. ADA recommended reference range Performed By: #### C BC, BMP ####[place] [address] [place] [address] [facility] Potassium [Moles/Vol] 3.7 mmol/L Normal 3.5-5.1 [facility] Comment on above: Performed By: #### C BC, BMP ####[place] [address] Sodium [Moles/Vol] 135 mmol/L Low 136-145 [facility] Comment on above: Performed By: #### C JEAN, BMP ####[address] Urea nitrogen [Mass/Vol] 18 mg/dL Normal 7-25 [facility] Comment on above: Performed By: #### C JEAN, BMP ####[address] Complete Blood Count Auto Di ffon 01-19-2023 Basophils (Bld) [#/Vol] 0.0 10*3/uL Normal 0.0-0.2 [facility] Comment on above: Result Comment: PERF ORMED BY: [facility] [address] [facility] [place] [address] PATHOLOGIST REFINED SYRUP OPERATOR DEVANG LEMONS M.D. Performed By: #### C JEAN, BMP ####[address] Basophils/100 WBC (Bld) 0.3 % Normal . [facility] Comment on above: Performed By: #### C JEAN, BMP ####[address] Eosinophils (Bld) [#/Vol] 0.1 10*3/uL Normal 0.0-0.45 [facility] Comment on above: Performed By: #### C JEAN, BMP ####[address] Eosinophils/100 WBC (Bld) 1.2 % Normal . [facility] Comment on above: Performed By: #### C BC, BMP ####[address] Erythrocyte distribution width (RBC) [Ratio] 14.3 % Normal 12.0-14.8 [facility] Comment on above: Performed By: #### C BC, BMP ####[address] Hematocrit (Bld) [Volume fraction] 41.8 % Normal 38.8-50.0 [facility] Comment on above: Performed By: #### C BC, BMP ####[address] Hemoglobin (Bld) [Mass/Vol] 13.6 g/dL Normal 13.0-17.0 [facility] Comment on above: Performed By: #### C BC, BMP ####[address] Lymphocytes (Bld) [#/Vol] 3.2 10*3/uL Normal 1.00-4.8 [facility] Comment on above: Performed By: #### C BC, BMP ####[address] Lymphocytes/100 WBC (Bld) 36.1 % Normal . [facility] Comment on above: Performed By: #### C BC, BMP ####[address] MCH (RBC) [Entitic mass] 27.7 pg Normal 27.5-35.2 [facility] Comment on above: Performed By: #### C BC, BMP ####[address] MCV (RBC) [Entitic vol] 84.9 fL Normal 83.5-101 [facility] Comment on above: Performed By: #### C BC, BMP ####[address] Mean Corpuscular HGB Conc 32.6 g/dL Normal 32.5-35.6 [facility] Comment on above: Performed By: #### C BC, BMP ####[address] Monocytes (Bld) [#/Vol] 0.8 10*3/uL Normal 0.0-0.8 [facility] Comment on above: Performed By: #### C BC, BMP ####[place] [address] [place] [address] [facility] Monocytes/100 WBC (Bld) 8.7 % Normal . [facility] Comment on above: Performed By: #### C BC, BMP ####[address] [place] [address] [facility] Neutrophils (Bld) [#/Vol] 4.7 10*3/uL Normal 1.8-7.7 [facility] Comment on above: Performed By: #### C BC, BMP ####[address] [place] [address] [facility] Neutrophils/100 WBC (Bld) 53.7 % Normal . [facility] Comment on above: Performed By: #### C BC, BMP ####[address] [address] [facility] NRBC% 0.2 /100{WBC} Normal 0-0.5 [facility] Comment on above: Performed By: #### C BC, BMP ####[address] [address] [facility] Platelet mean volume (Bld) [Entitic vol] 8.1 fL Normal 6.6-10.1 [facility] Comment on above: Performed By: #### C BC, BMP ####[address] [address] [facility] Platelets (Bld) [#/Vol] 245 10*3/uL Normal 150-450 [facility] Comment on above: Performed By: #### C BC, BMP ####[address] [address] [place] RBC (Bld) [#/Vol] 4.92 10*6/uL Normal 3.90-5.60 [facility] Comment on above: Performed By: #### C BC, BMP ####[address] [address] [facility] WBC (Bld) [#/Vol] 8.8 10*3/uL Normal 4.1-10.5 [facility] Comment on above: Performed By: #### C BC, BMP ####[facility] [address] [place] [id number] [facility] MR head/brain wo conon 01-18 MR head/brain wo con [facility] Main [place] [address] [place] [address] MRI Report Signed Patient: Taras Hayward MR#: [id number] 56 : 1970 Acct:[id number] Age/Sex: 52 / M ADM Date: 01/03/23 Loc: 5T Room: [address] [place] [address] Type: ADM IN Attending Dr: Srinivas Patricia MD Copies to: DO Srinivas Smith MD Ordering Provider: Pilo Nieto DO Date of Service: 01/18/23 MR/MR head/brain wo con: worsened dysarthria, hx cerebellar CVA, COVER CUTTER MACHINE shunt EXAMINATION: MRI OF THE BRAIN WITHOUT [...] Sharon Jordan M.D.01/18/2023 3:43 PM Dictation Location: RADIO-PC-10 Transcribed By: ADELA 01/18/23 154 Dictated By: Sharon Jordan MD 01/18/231534 Signed By: 01/18/231542 [facility] XR pre/post mri xrayon 01-18 XR pre/post mri xray [facility] Main [place] [address] [place] [address] XRay Report Signed Patient: Taras Hayward MR#: [id number] 56 : 1970 Acct:[id number] Age/Sex: 52 / M ADM Date: 01/03/23 Loc: Room: [address] [place] [address] Type: ADM IN Attending Dr: Srinivas Patricia MD Copies to: Srinivas Patricia MD Ordering Provider: Srinivas Patricia MD Date of Service: 01/18/23 XR/XR pre/post mri xray: SHUNT CHECK PRE-MRI CALVARIUM - 4 images CLINICAL DATA: Pre-MRI assessment in patient with COVER CUTTER MACHINE shunt. COMPARISON: CT 01/12/2023 AP and lateral views were obtained. There is a right-sided ventriculoperitoneal shunt through a posterior parietal approach. The visualized hardware appears intact. There is prior occipital craniectomy. There are no acute osseous abnormalities. The visualized paranasal sinuses appear clear. XR/XR pre/post mri xray IMPRESSION: RIGHT-SIDED VENTRICULOPERITONEAL SHUNT. Impression dictated by: Sharon Jordan M.D.01/18/2023 3:35 PM Dictation Location: RADIO-PC-10 Transcribed By: ADELA 01/18/23 153 Dictated By: Sharon Jordan MD 01/18/231532 Signed By: 01/18/231534 [facility] Nordiazepam [Mass/volume] in Serum or PlasmaOrdered By: Megha Lacy on 01-15-2023 Nordiazepam [Mass/Vol] <0.1 ug/mL . [facility] Comment on above: This test was develo ped and its performance characteristicsdetermined by [facility]. It has not been cleared orapproved by the Food and Drug Administration. Serum or plasma diazepam sourav surement (mass/volume)Ordered By: Megha Lacy on 01-15-2023 diazePAM [Mass/Vol] <0.1 ug/mL . [facility] Comment on above: This test was develo ped and its performance characteristicsdetermined by [facility]. It has not been cleared orapproved by the Food and Drug Administration. Valiumon 01-15-2023 Nordiazepam <0.1 Normal . [facility] Comment on above: Result Comment: This test was developed and its performance characteristics determined by [facility]. It has not been cleared or approved by the Food and Drug Administration. Performed By: #### V ALIUM ####[facility] , Total (Norton+Branden) <.2 Low 0.2-2.5 [facility] [place] Comment on above: Result Comment: Dete ction Limit = 0.10 Performed at: [facility] [id number] Plate Cleaner: Mandy Eid MD, Phone: [phone] PERFORMED BY: [facility] [address] [place] [address] PATHOLOGIST REFINED SYRUP OPERATOR DEVANG LEMONS M.D. Performed By: #### V ALIUM ####[facility] , Valium <0.1 Normal . [facility] Comment on above: Result Comment: This test was developed and its performance characteristics determined by [facility]. It has not been cleared or approved by the Food and Drug Administration. Performed By: #### V ALIUM ####[facility] , diazePAM+Nordiazepam [Mass/v olume] in Serum or PlasmaOrdered By: Megha Lacy on 01-15-2023 diazePAM+Nordiazepam [Mass/Vol] <.2 ug/mL 0.2-2.5 [facility] Comment on above: Detection Limit = 0. 10Performed at: [facility]James [facility] [place], [place] [id number] Director: Mandy Eid MD, Phone: [phone] Basic Metabolic Panelon Anion gap [Moles/Vol] 11.5 mmol/L Normal 6.0-15.0 [facility] Comment on above: Performed By: #### C BC, BMP #### [facility] [address] [place] [address] [place] Calcium [Mass/Vol] 8.8 mg/dL Normal 8.6-10.3 [facility] Comment on above: Performed By: #### C BC, BMP #### [facility] [address] [place] [address] [place] Chloride [Moles/Vol] 101 mmol/L Normal 98-107 [facility] Comment on above: Performed By: #### C BC, BMP #### [facility] [address] [place] [address] [place] CO2 [Moles/Vol] 26.5 mmol/L Normal 21.0-31.0 [facility] Comment on above: Performed By: #### C BC, BMP #### [facility] [address] [place] [address] [place] Creatinine [Mass/Vol] 1.12 mg/dL Normal 0.70-1.30 [facility] Comment on above: Performed By: #### C BC, BMP #### [facility] [address] [place] [address] [place] Creatinine Clr Calc Pharmacy 124.62 [facility] Comment on above: Result Comment: PERF ORMED BY: [place] [address] PATHOLOGIST REFINED SYRUP OPERATOR DEVANG LEMONS M.D. Performed By: #### C BC, BMP #### [facility] [address] [place] [address] [place] GFR/1.73 sq M.predicted MDRD (S/P/Bld) [Vol rate/Area] mL/min/{1.73_m2} [facility] Comment on above: Performed By: #### C BC, BMP #### [address] Glucose [Mass/Vol] 121 mg/dL High 70-100 [facility] Comment on above: Result Comment: [facility] Glucose Reference Range is dependent on time and content of last meal. Glucose of more than 200 mg/dL in a nonstressed, ambulatory subject supports the diagnosis of Diabetes Mellitus. ADA recommended reference range Performed By: #### C BC, BMP #### [address] Potassium [Moles/Vol] 4.0 mmol/L Normal 3.5-5.1 [facility] Comment on above: Performed By: #### C BC, BMP #### [address] Sodium [Moles/Vol] 135 mmol/L Low 136-145 [facility] Comment on above: Performed By: #### C BC, BMP #### [address] Urea nitrogen [Mass/Vol] 15 mg/dL Normal 7-25 [facility] Comment on above: Performed By: #### C BC, BMP #### [address] Complete Blood Count Auto Di ffon 01-13-2023 Basophils (Bld) [#/Vol] 0.0 10*3/uL Normal 0.0-0.2 [facility] Comment on above: Result Comment: PERF ORMED BY: [place] [address] PATHOLOGIST REFINED SYRUP OPERATOR DEVAGN LEMONS M.D. Performed By: #### C BC, BMP #### [address] Basophils/100 WBC (Bld) 0.2 % Normal . [facility] Comment on above: Performed By: #### C BC, BMP #### [address] Eosinophils (Bld) [#/Vol] 0.1 10*3/uL Normal 0.0-0.45 [facility] Comment on above: Performed By: #### C BC, BMP #### [facility] [address] Eosinophils/100 WBC (Bld) 1.5 % Normal . [facility] Comment on above: Performed By: #### C BC, BMP #### [facility] [address] Erythrocyte distribution width (RBC) [Ratio] 14.3 % Normal 12.0-14.8 [facility] Comment on above: Performed By: #### C BC, BMP #### [facility] [address] Hematocrit (Bld) [Volume fraction] 38.6 % Low 38.8-50.0 [facility] Comment on above: Performed By: #### C BC, BMP #### [facility] [address] Hemoglobin (Bld) [Mass/Vol] 12.7 g/dL Low 13.0-17.0 [facility] Comment on above: Performed By: #### C BC, BMP #### [address] Lymphocytes (Bld) [#/Vol] 2.5 10*3/uL Normal 1.00-4.8 [facility] Comment on above: Performed By: #### C BC, BMP #### [place] [address] [place] Lymphocytes/100 WBC (Bld) 28.7 % Normal . [facility] Comment on above: Performed By: #### C BC, BMP #### [facility] [address] [place] [address] [place] MCH (RBC) [Entitic mass] 27.8 pg Normal 27.5-35.2 [facility] Comment on above: Performed By: #### C BC, BMP #### [facility] [address] MCV (RBC) [Entitic vol] 84.8 fL Normal 83.5-101 [facility] Comment on above: Performed By: #### C BC, BMP #### [facility] [address] Mean Corpuscular HGB Conc 32.8 g/dL Normal 32.5-35.6 [facility] Comment on above: Performed By: #### C BC, BMP #### [facility] [address] [place] [address] [place] Monocytes (Bld) [#/Vol] 0.7 10*3/uL Normal 0.0-0.8 [facility] Comment on above: Performed By: #### C BC, BMP #### [facility] [address] [place] [address] [place] Monocytes/100 WBC (Bld) 8.6 % Normal . [facility] Comment on above: Performed By: #### C BC, BMP #### [facility] [address] [place] [address] [place] Neutrophils (Bld) [#/Vol] 5.3 10*3/uL Normal 1.8-7.7 [facility] Comment on above: Performed By: #### C BC, BMP #### [facility] [address] Neutrophils/100 WBC (Bld) 61.0 % Normal . [facility] Comment on above: Performed By: #### C BC, BMP #### [facility] [address] [place] [address] [place] NRBC% 0.2 /100{WBC} Normal 0-0.5 [facility] Comment on above: Performed By: #### C BC, BMP #### [facility] [address] [place] [id number] [place] Platelet mean volume (Bld) [Entitic vol] 8.2 fL Normal 6.6-10.1 [facility] Comment on above: Performed By: #### C BC, BMP #### [facility] [address] [place] [id number] [place] Platelets (Bld) [#/Vol] 210 10*3/uL Normal 150-450 [facility] Comment on above: Performed By: #### C BC, BMP #### [facility] [address] RBC (Bld) [#/Vol] 4.55 10*6/uL Normal 3.90-5.60 [facility] Comment on above: Performed By: #### C BC, BMP #### [facility] [address] WBC (Bld) [#/Vol] 8.6 10*3/uL Normal 4.1-10.5 [facility] Comment on above: Performed By: #### C BC, BMP #### [facility] [address] head/brain wo conon 01-12 CT head/brain wo con [facility] Main [place] [address] [place] [address] CT Scan Report Signed Patient: Taras Hayward MR#: [id number] 56 : 1970 Acct:[id number] Age/Sex: 52 / M ADM Date: 01/03/23 Loc: Room: [address] [place] [address] Type: ADM IN Attending Dr: Srinivas Patricia [...] evidence of stroke. 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 is once again identified unchanged in [...] Moore Jr., D.O.01/12/2023 3:01 PM Dictation Location: [place] [address] Transcribed By: ADELA 01/12/23 1501 Dictated By: Srinivas Moore Jr, DO 01/12/23 1456 Signed By: 01/12/23 1501 Normal [facility] US venous duplex LE BIon US venous duplex LE BI [facility] [place] [address] Ultrasound Report Signed Patient: Taras Hayward MR#: [id number] 56 : 1970 Acct:[id number] Age/Sex: 52 / M ADM Date: 01/03/23 Loc: Room: [address] [place] [address] Type: ADM IN Attending Dr: Srinivas Patricia [...] Gerardo Miranda M.D.01/12/2023 10:53 AM Dictation Location: [place] [address] Tech: Caitlyn Ortiz Transcribed By: ADELA 01/12/23 1053 Dictated By: Gerardo Miranda MD 01/12/23 1052 Signed By: 01/12/23 1053 Normal [facility] Dipstick and Microscopicon 0 01-11-2023 Appearance (U) Cloudy Critically abnormal Clear [facility] Comment on above: Order Comment: Name Collection Type:: Clean-Voided Midstream Performed By: #### C UU, ADDONUAPLUS ####[address] [address] [facility] Bacteria,Urine 4+ High None Seen [facility] Comment on above: Order Comment: Name Collection Type:: Clean-Voided Midstream Performed By: #### C UU, ADDONUAPLUS ####[address] [address] [place] Bilirubin,Urine Negative Normal Negative [facility] Comment on above: Order Comment: Name Collection Type:: Clean-Voided Midstream Performed By: #### C UU, ADDONUAPLUS ####[address] [address] [place] Color (U) Dark Yellow Critically abnormal Yellow [facility] Comment on above: Order Comment: Name Collection Type:: Clean-Voided Midstream Performed By: #### C UU, ADDONUAPLUS ####[address] [address] [facility] Glucose Ql (U) Normal Normal Normal [facility] Comment on above: Order Comment: Name Collection Type:: Clean-Voided Midstream Performed By: #### C UU, ADDONUAPLUS ####[address] [address] [place] Hyaline Casts,Urine 0-8 Normal 0-8 [facility] Comment on above: Order Comment: Name Collection Type:: Clean-Voided Midstream Result Comment: PERF ORMED BY: [facility] [address] [place] [id number] PATHOLOGIST REFINED SYRUP OPERATOR DEVANG LEMONS M.D. Performed By: #### C UU, ADDONUAPLUS ####[address] [address] [place] Ketones Ql (U) 1+ High Negative [facility] Comment on above: Order Comment: Name Collection Type:: Clean-Voided Midstream Performed By: #### C UU, ADDONUAPLUS ####[address] Leukocyte esterase Test strip Ql (U) 4+ High Negative [facility] Comment on above: Order Comment: Name Collection Type:: Clean-Voided Midstream Performed By: #### C UU, ADDONUAPLUS ####[address] Nitrite,Urine Negative Normal Negative [facility] Comment on above: Order Comment: Name Collection Type:: Clean-Voided Midstream Performed By: #### C UU, ADDONUAPLUS ####[address] Occult Blood,Urine Trace High Negative [facility] Comment on above: Order Comment: Name Collection Type:: Clean-Voided Midstream Result Comment: PERF ORMED BY: [facility] [address] [facility] [place] [address] PATHOLOGIST REFINED SYRUP OPERATOR DEVANG LEMONS M.D. Performed By: #### C UU, ADDONUAPLUS ####[address] pH (U) 6.0 [pH] Normal 5.0-9.0 [facility] Comment on above: Order Comment: Name Collection Type:: Clean-Voided Midstream Performed By: #### C UU, ADDONUAPLUS ####[place] [id number] [facility] Protein,Urine Trace High Negative [facility] Comment on above: Order Comment: Name Collection Type:: Clean-Voided Midstream Performed By: #### C UU, ADDONUAPLUS ####[address] RBC,Urine 10-19 High 0-4 [facility] Comment on above: Order Comment: Name Collection Type:: Clean-Voided Midstream Performed By: #### C UU, ADDONUAPLUS ####[place] [id number] Specificy [place],Urine 1.019 Normal 1.001-1.03 0 [facility] Comment on above: Order Comment: Name Collection Type:: Clean-Voided Midstream Performed By: #### C UU, ADDONUAPLUS ####[address] Squamous Epithelial Cell,Urine None Seen Normal 0-2 [facility] Comment on above: Order Comment: Name Collection Type:: Clean-Voided Midstream Performed By: #### C UU, ADDONUAPLUS ####[address] Urobilinogen,Urine Normal Normal Normal [facility] Comment on above: Order Comment: Name Collection Type:: Clean-Voided Midstream Performed By: #### C UU, ADDONUAPLUS ####[address] WBC,Urine 50-100 High 0-4 [facility] Comment on above: Order Comment: Name Collection Type:: Clean-Voided Midstream Performed By: #### C UU, ADDONUAPLUS ####[address] Urine Cultureon 01-11-2023 Bacteria identified Cx Nom (U) ORGANISM: Klebsiella pneumoniae (O:KLEPNE) [place] Count >100,000 Aerobic SAI Charge (NMIC56) SUSCEPTIBILITY [...] RESISTANT TO ALL B-LACTAM DRUGS. PERFORMED BY: [place] [address] PATHOLOGIST REFINED SYRUP OPERATOR DEVANG LEMONS M.D. [facility] Comment on above: Performed By: #### C UU, ADDONUAPLUS ####[facility] [address] Basic Metabolic Panelon 08-0 Anion gap [Moles/Vol] 9.9 mmol/L Normal 6.0-15.0 [facility] Comment on above: Performed By: #### B MP, CBC #### [facility] [address] Calcium [Mass/Vol] 8.9 mg/dL Normal 8.6-10.3 [facility] Comment on above: Performed By: #### B MP, CBC #### [facility] [address] [place] [address] [place] Chloride [Moles/Vol] 103 mmol/L Normal 98-107 [facility] Comment on above: Performed By: #### B MP, CBC #### [facility] [address] [place] [id number] [place] CO2 [Moles/Vol] 29.9 mmol/L Normal 21.0-31.0 [facility] Comment on above: Performed By: #### B MP, CBC #### [facility] [address] Creatinine [Mass/Vol] 0.75 mg/dL Normal 0.70-1.30 [facility] Comment on above: Performed By: #### B MP, CBC #### [facility] [address] [place] [address] [place] Creatinine Clr Calc Pharmacy 186.10 Normal [facility] Comment on above: Result Comment: PERF ORMED BY: [place] [address] PATHOLOGIST REFINED SYRUP OPERATOR DEVANG LEMONS M.D. Performed By: #### B MP, CBC #### [place] [address] [place] GFR/1.73 sq M.predicted MDRD (S/P/Bld) [Vol rate/Area] mL/min/{1.73_m2} Normal [facility] Comment on above: Performed By: #### B MP, CBC #### [address] Glucose [Mass/Vol] 100 mg/dL Normal 70-100 [facility] Comment on above: Result Comment: [place] Glucose Reference Range is dependent on time and content of last meal. Glucose of more than 200 mg/dL in a nonstressed, ambulatory subject supports the diagnosis of Diabetes Mellitus. ADA recommended reference range Performed By: #### B MP, CBC #### [place] [address] [place] Potassium [Moles/Vol] 3.8 mmol/L Normal 3.5-5.1 [facility] Comment on above: Performed By: #### B MP, CBC #### [place] [address] [place] Sodium [Moles/Vol] 139 mmol/L Normal 136-145 [facility] Comment on above: Performed By: #### B MP, CBC #### [facility] [address] [place] [address] [place] Urea nitrogen [Mass/Vol] 12 mg/dL Normal 7-25 [facility] Comment on above: Performed By: #### B MP, CBC #### [facility] [address] [place] [address] [facility] Basophils Auto (Bld) [#/Vol] Ordered By: Tisha Cardona on 01-09-2023 Basophils (Bld) [#/Vol] 0.0 10*3/uL 0.0-0.2 [facility] Basophils/100 WBC Auto (Bld) Ordered By: Tisha Cardona on 01-09-2023 Basophils/100 WBC (Bld) 0.3 % . [facility] CT head/brain wo conon 01-09 CT head/brain wo con [facility] Main [place] [address] [place] [id number] Scan Report Signed Patient: Taras Hayward MR#: [id number] 56 : 1970 Acct:[id number] Age/Sex: 52 / M ADM Date: 01/03/23 Loc: Room: [address] [place] [address] Type: ADM IN Attending Dr: Srinivas Patricia [...] Harsh Rodriguez M.D.01/09/2023 11:00 AM Dictation Location: [place] [address] Transcribed By: ADELA 01/09/23 1100 Dictated By: Harsh Rodriguez II, MD 01/09/23 1057 Signed By: 01/09/23 1100 Normal [facility] Calcium [Mass/volume] in Ser um or PlasmaOrdered By: Tisha Cardona on 01-09-2023 Calcium [Mass/Vol] 8.9 mg/dL 8.6-10.3 [facility] Carbon dioxide, total [Moles /volume] in Serum or PlasmaOrdered By: Tisha Cardona on 01-09-2023 CO2 [Moles/Vol] 29.9 mmol/L 21.0-31.0 [facility] Chloride [Moles/volume] in S geno or PlasmaOrdered By: Tisha Cardona on 01-09-2023 Chloride [Moles/Vol] 103 mmol/L 98-107 [facility] Complete Blood Count Auto Di ffon 01-09-2023 Basophils (Bld) [#/Vol] 0.0 10*3/uL Normal 0.0-0.2 [facility] Comment on above: Result Comment: PERF ORMED BY: [address] [place] [address] PATHOLOGIST REFINED SYRUP OPERATOR DEVANG LEMONS M.D. Performed By: #### B MP, CBC #### [facility] [address] Basophils/100 WBC (Bld) 0.3 % Normal . [facility] Comment on above: Performed By: #### B MP, CBC #### [facility] [address] Eosinophils (Bld) [#/Vol] 0.1 10*3/uL Normal 0.0-0.45 [facility] Comment on above: Performed By: #### B MP, CBC #### [facility] [address] [place] [address] [place] Eosinophils/100 WBC (Bld) 1.6 % Normal . [facility] Comment on above: Performed By: #### B MP, CBC #### [facility] [address] Erythrocyte distribution width (RBC) [Ratio] 14.3 % Normal 12.0-14.8 [facility] Comment on above: Performed By: #### B MP, CBC #### [facility] [address] Hematocrit (Bld) [Volume fraction] 37.8 % Low 38.8-50.0 [facility] Comment on above: Performed By: #### B MP, CBC #### [address] Hemoglobin (Bld) [Mass/Vol] 12.2 g/dL Low 13.0-17.0 [facility] Comment on above: Performed By: #### B MP, CBC #### [address] Lymphocytes (Bld) [#/Vol] 2.3 10*3/uL Normal 1.00-4.8 [facility] Comment on above: Performed By: #### B MP, CBC #### [place] [address] [place] Lymphocytes/100 WBC (Bld) 36.0 % Normal . [facility] Comment on above: Performed By: #### B MP, CBC #### [facility] [address] MCH (RBC) [Entitic mass] 27.4 pg Low 27.5-35.2 [facility] Comment on above: Performed By: #### B MP, CBC #### [address] MCV (RBC) [Entitic vol] 84.9 fL Normal 83.5-101 [facility] Comment on above: Performed By: #### B MP, CBC #### [facility] [address] Mean Corpuscular HGB Conc 32.3 g/dL Low 32.5-35.6 [facility] Comment on above: Performed By: #### B MP, CBC #### [facility] [address] Monocytes (Bld) [#/Vol] 0.5 10*3/uL Normal 0.0-0.8 [facility] Comment on above: Performed By: #### B MP, CBC #### [facility] [address] [place] [address] [place] Monocytes/100 WBC (Bld) 7.3 % Normal . [facility] Comment on above: Performed By: #### B MP, CBC #### [facility] [address] Neutrophils (Bld) [#/Vol] 3.5 10*3/uL Normal 1.8-7.7 [facility] Comment on above: Performed By: #### B MP, CBC #### [facility] [address] [place] [address] [place] Neutrophils/100 WBC (Bld) 54.8 % Normal . [facility] Comment on above: Performed By: #### B MP, CBC #### [facility] [address] [place] [address] [place] NRBC% 0.2 /100{WBC} Normal 0-0.5 [facility] Comment on above: Performed By: #### B MP, CBC #### [facility] [address] [place] [address] [place] Platelet mean volume (Bld) [Entitic vol] 8.8 fL Normal 6.6-10.1 [facility] Comment on above: Performed By: #### B MP, CBC #### [facility] [address] [place] [address] [place] Platelets (Bld) [#/Vol] 185 10*3/uL Normal 150-450 [facility] Comment on above: Performed By: #### B MP, CBC #### [facility] [address] [place] [id number] [facility] RBC (Bld) [#/Vol] 4.46 10*6/uL Normal 3.90-5.60 [facility] Comment on above: Performed By: #### B MP, CBC #### [facility] [address] WBC (Bld) [#/Vol] 6.4 10*3/uL Normal 4.1-10.5 [facility] Comment on above: Performed By: #### B MP, CBC #### [facility] [address] Creatinine [Mass/volume] in Serum or PlasmaOrdered By: Tisha Cardona on 01-09-2023 Creatinine [Mass/Vol] 0.75 mg/dL 0.70-1.30 [facility] Eosinophils Auto (Bld) [#/Vo l]Ordered By: Tisha Cardona on 01-09-2023 Eosinophils (Bld) [#/Vol] 0.1 10*3/uL 0.0-0.45 [facility] Eosinophils/100 WBC Auto (Bl d)Ordered By: Tisha Cardona on 01-09-2023 Eosinophils/100 WBC (Bld) 1.6 % . [facility] Erythrocyte distribution wid th Auto (RBC) [Ratio]Ordered By: Tisha Cardona on 01-09-2023 Erythrocyte distribution width (RBC) [Ratio] 14.3 % 12.0-14.8 [facility] Glucose [Mass/volume] in Ser um or PlasmaOrdered By: Tisha Cardona on 01-09-2023 Glucose [Mass/Vol] 100 mg/dL 70-100 [facility] Comment on above: ADA recommended refe rence rangeRandom Glucose Reference Range is dependent on time and content of last meal. Glucose of more than 200 mg/dL in a nonstressed, ambulatory subject supports the diagnosis of Diabetes Mellitus. Hematocrit Auto (Bld) [Volum e fraction]Ordered By: Tisha Cardona on 01-09-2023 Hematocrit (Bld) [Volume fraction] 37.8 % 38.8-50.0 [facility] Hemoglobin [Mass/volume] in BloodOrdered By: Tisha Cardona on 01-09-2023 Hemoglobin (Bld) [Mass/Vol] 12.2 g/dL 13.0-17.0 [facility] Leukocytes [#/volume] correc jose ramon for nucleated erythrocytes in Blood by Automated counOrdered By: Tisha Cardona on 01-09-2023 WBC corrected for nucl RBC Auto (Bld) [#/Vol] 6.4 10*3/uL 4.1-10.5 [facility] Lymphocytes Auto (Bld) [#/Vo l]Ordered By: Tisha Cardona on 01-09-2023 Lymphocytes (Bld) [#/Vol] 2.3 10*3/uL 1.00-4.8 [facility] Lymphocytes/100 WBC Auto (Bl d)Ordered By: Tisha Cardona on 01-09-2023 Lymphocytes/100 WBC (Bld) 36.0 % . [facility] MCH Auto (RBC) [Entitic mass ]Ordered By: Tisha Cardona on 01-09-2023 MCH (RBC) [Entitic mass] 27.4 pg 27.5-35.2 [facility] MCHC Auto (RBC) [Mass/Vol]Or dered By: Tisha Cardona on 01-09-2023 MCHC (RBC) [Mass/Vol] 32.3 g/dL 32.5-35.6 [facility] MCV Auto (RBC) [Entitic vol] Ordered By: Tisha Cardona on 01-09-2023 MCV (RBC) [Entitic vol] 84.9 fL 83.5-101 [facility] Monocytes Auto (Bld) [#/Vol] Ordered By: Tisha Cardona on 01-09-2023 Monocytes (Bld) [#/Vol] 0.5 10*3/uL 0.0-0.8 [facility] Monocytes/100 WBC Auto (Bld) Ordered By: Tisha Cardona on 01-09-2023 Monocytes/100 WBC (Bld) 7.3 % . [facility] Neutrophils Auto (Bld) [#/Vo l]Ordered By: Tisha Cardona on 01-09-2023 Neutrophils (Bld) [#/Vol] 3.5 10*3/uL 1.8-7.7 [facility] Neutrophils/100 WBC Auto (Bl d)Ordered By: Tisha Cardona on 01-09-2023 Neutrophils/100 WBC (Bld) 54.8 % . [facility] No Panel InformationOrdered By: Tisha Cardona on 01-09-2023 Estimated GFR (CKD-EPI) > 60.0 mL/Min [facility]acy Creatinine Clearance (Chem 186.10 [facility] Nucleated erythrocytes [Pres ence] in Blood by Automated countOrdered By: Tisha Cardona on 01-09-2023 Nucleated RBC Auto Ql (Bld) 0.2 /100{WBC} 0-0.5 [facility] Platelet mean volume Auto (B ld) [Entitic vol]Ordered By: Tisha Cardona on 01-09-2023 Platelet mean volume (Bld) [Entitic vol] 8.8 fL 6.6-10.1 [facility] Platelets Auto (Bld) [#/Vol] Ordered By: Tisha Cardona on 01-09-2023 Platelets (Bld) [#/Vol] 185 10*3/uL 150-450 [facility] Potassium [Moles/volume] in Serum or PlasmaOrdered By: Tisha Cardona on 01-09-2023 Potassium [Moles/Vol] 3.8 mmol/L 3.5-5.1 [facility] RBC Auto (Bld) [#/Vol]Ordere d By: Tisha Cardona on 01-09-2023 RBC (Bld) [#/Vol] 4.46 10*6/uL 3.90-5.60 [facility] Serum or plasma anion gap de terminationOrdered By: Tisha Cardona on 01-09-2023 Anion gap [Moles/Vol] 9.9 mmol/L 6.0-15.0 [facility] Sodium [Moles/volume] in Ser um or PlasmaOrdered By: Tisha Cardona on 01-09-2023 Sodium [Moles/Vol] 139 mmol/L 136-145 [facility] Urea nitrogen [Mass/volume] in Serum or PlasmaOrdered By: Tisha Cardona on 01-09-2023 Urea nitrogen [Mass/Vol] 12 mg/dL 01-02 [facility] WBC Auto (Bld) [#/Vol]Ordere d By: Tisha Cardona on 01-09-2023 WBC (Bld) [#/Vol] 6.4 10*3/uL 4.1-10.[address] [facility] CT head/brain wo conon 01-08 CT head/brain wo con [facility] [place] [place] [address] CT Scan Report Signed Patient: Taras Hayward MR#: [id number] 56 : 1970 Acct:[id number] Age/Sex: 52 / M ADM Date: 01/03/23 Loc: Room: [address] [place] [address] Type: ADM IN Attending Dr: Srinivas Patricia [...] Harsh Rodriguez M.D.01/08/2023 3:35 PM Dictation Location: [place] [address] Transcribed By: ADELA 01/08/23 1535 Dictated By: Harsh Rodriguez II, MD 01/08/23 1528 Signed By: 01/08/23 1535 Normal [facility] Alanine aminotransferase [En zymatic activity/volume] in Serum or PlasmaOrdered By: Srinivas Patricia on 01-04-2023 ALT [Catalytic activity/Vol] 18 U/L 7-52 [facility] Albumin [Mass/volume] in Ser um or Plasma by Bromocresol green (BCG) dye binding methoOrdered By: Srinivas Patricia on 01-04-2023 Albumin BCG dye [Mass/Vol] 3.4 g/dL 3.5-5.7 [facility] Alkaline phosphatase [Enzyma tic activity/volume] in Serum or PlasmaOrdered By: Srinivas Patricia on 01-04-2023 ALP [Catalytic activity/Vol] 64 U/L 34-104 [facility] Aspartate aminotransferase [ Enzymatic activity/volume] in Serum or PlasmaOrdered By: Srinivas Patricia on 01-04-2023 AST [Catalytic activity/Vol] 19 U/L 13-39 [facility] Bilirubin.total [Mass/volume ] in Serum or PlasmaOrdered By: Srinivas Patricia on 01-04-2023 Bilirubin [Mass/Vol] 0.6 mg/dL 0.3-1.0 [facility] Complete Blood Count Auto Di ffon 01-04-2023 Basophils (Bld) [#/Vol] 0.0 10*3/uL Normal 0.0-0.2 [facility] Comment on above: Result Comment: PERF ORMED BY: [facility] [address] [place] [address] PATHOLOGIST REFINED SYRUP OPERATOR DEVANG LEMONS M.D. Performed By: #### C MP, PAB, CBC ####[address] Basophils/100 WBC (Bld) 0.4 % Normal . [facility] Comment on above: Performed By: #### C MP, PAB, CBC ####[address] Eosinophils (Bld) [#/Vol] 0.1 10*3/uL Normal 0.0-0.45 [facility] Comment on above: Performed By: #### C MP, PAB, CBC ####[address] Eosinophils/100 WBC (Bld) 1.6 % Normal . [facility] Comment on above: Performed By: #### C MP, PAB, CBC ####[address] Erythrocyte distribution width (RBC) [Ratio] 14.3 % Normal 12.0-14.8 [facility] Comment on above: Performed By: #### C MP, PAB, CBC ####[address] Hematocrit (Bld) [Volume fraction] 36.7 % Low 38.8-50.0 [facility] Comment on above: Performed By: #### C MP, PAB, CBC ####[address] Hemoglobin (Bld) [Mass/Vol] 12.0 g/dL Low 13.0-17.0 [facility] Comment on above: Performed By: #### C MP, PAB, CBC ####[address] Lymphocytes (Bld) [#/Vol] 2.8 10*3/uL Normal 1.00-4.8 [facility] Comment on above: Performed By: #### C MP, PAB, CBC ####[address] Lymphocytes/100 WBC (Bld) 33.7 % Normal . [facility] Comment on above: Performed By: #### C MP, PAB, CBC ####[address] MCH (RBC) [Entitic mass] 27.7 pg Normal 27.5-35.2 [facility] Comment on above: Performed By: #### C MP, PAB, CBC ####[address] MCV (RBC) [Entitic vol] 85.1 fL Normal 83.5-101 [facility] Comment on above: Performed By: #### C MP, PAB, CBC ####[address] Mean Corpuscular HGB Conc 32.6 g/dL Normal 32.5-35.6 [facility] Comment on above: Performed By: #### C MP, PAB, CBC ####[address] Monocytes (Bld) [#/Vol] 0.8 10*3/uL Normal 0.0-0.8 [facility] Comment on above: Performed By: #### C MP, PAB, CBC ####[address] Monocytes/100 WBC (Bld) 9.3 % Normal . [facility] Comment on above: Performed By: #### C MP, PAB, CBC ####[address] Neutrophils (Bld) [#/Vol] 4.5 10*3/uL Normal 1.8-7.7 [facility] Comment on above: Performed By: #### C MP, PAB, CBC ####[address] Neutrophils/100 WBC (Bld) 55.0 % Normal . [facility] Comment on above: Performed By: #### C MP, PAB, CBC ####[address] NRBC% 0.1 /100{WBC} Normal 0-0.5 [facility] Comment on above: Performed By: #### C MP, PAB, CBC ####[address] Platelet mean volume (Bld) [Entitic vol] 8.3 fL Normal 6.6-10.1 [facility] Comment on above: Performed By: #### C MP, PAB, CBC ####[address] Platelets (Bld) [#/Vol] 259 10*3/uL Normal 150-450 [facility] Comment on above: Performed By: #### C MP, PAB, CBC ####[address] RBC (Bld) [#/Vol] 4.32 10*6/uL Normal 3.90-5.60 [facility] Comment on above: Performed By: #### C MP, PAB, CBC ####[address] WBC (Bld) [#/Vol] 8.2 10*3/uL Normal 4.1-10.5 [facility] Comment on above: Performed By: #### C MP, PAB, CBC ####[address] Comprehensive Metabolic Pane neetu 01-04-2023 Albumin [Mass/Vol] 3.4 g/dL Low 3.5-5.7 [facility] Comment on above: Performed By: #### C MP, PAB, CBC ####[address] Albumin/Globulin [Mass ratio] 1.0 {ratio} Normal [facility] Comment on above: Performed By: #### C MP, PAB, CBC ####[facility] [place] [address] [facility] ALP [Catalytic activity/Vol] 64 U/L Normal 34-104 [facility] Comment on above: Performed By: #### C MP, PAB, CBC ####[facility] [place] [address] [facility] ALT [Catalytic activity/Vol] 18 U/L Normal 7-52 [facility] Comment on above: Performed By: #### C MP, PAB, CBC ####[facility] [place] [address] [facility] Anion gap [Moles/Vol] 11.4 mmol/L Normal 6.0-15.0 [facility] Comment on above: Performed By: #### C MP, PAB, CBC ####[address] [address] [facility] AST [Catalytic activity/Vol] 19 U/L Normal 13-39 [facility] Comment on above: Performed By: #### C MP, PAB, CBC ####[address] [address] [facility] Bilirubin [Mass/Vol] 0.6 mg/dL Normal 0.3-1.0 [facility] Comment on above: Performed By: #### C MP, PAB, CBC ####[address] [address] [facility] Calcium [Mass/Vol] 8.7 mg/dL Normal 8.6-10.3 [facility] Comment on above: Performed By: #### C MP, PAB, CBC ####[facility] [place] [address] [facility] Chloride [Moles/Vol] 103 mmol/L Normal 98-107 [facility] Comment on above: Performed By: #### C MP, PAB, CBC ####[address] [address] [facility] CO2 [Moles/Vol] 27.3 mmol/L Normal 21.0-31.0 [facility] Comment on above: Performed By: #### C MP, PAB, CBC ####[facility] [place] [id number] [facility] Creatinine [Mass/Vol] 0.89 mg/dL Normal 0.70-1.30 [facility] Comment on above: Performed By: #### C MP, PAB, CBC ####[facility] [place] [id number] [facility] Creatinine Clr Calc Pharmacy 150.03 [facility] Comment on above: Performed By: #### C MP, PAB, CBC ####[place] [id number] [facility] GFR/1.73 sq M.predicted MDRD (S/P/Bld) [Vol rate/Area] mL/min/{1.73_m2} [facility] Comment on above: Performed By: #### C VALENTINE, PAB, CBC ####[address] Globulin (S) [Mass/Vol] 3.4 g/dL [facility] Comment on above: Performed By: #### C MP, PAB, CBC ####[place] [id number] [facility] Glucose [Mass/Vol] 101 mg/dL High 70-100 [facility] Comment on above: Result Comment: [place] Glucose Reference Range is dependent on time and content of last meal. Glucose of more than 200 mg/dL in a nonstressed, ambulatory subject supports the diagnosis of Diabetes Mellitus. ADA recommended reference range Performed By: #### C MP, PAB, CBC ####[facility] [place], [place] [id number] [facility] Potassium [Moles/Vol] 3.7 mmol/L Normal 3.5-5.1 [facility] Comment on above: Performed By: #### C MP, PAB, CBC ####[place] [id number] [facility] Protein [Mass/Vol] 6.8 g/dL Normal 6.4-8.9 [facility] Comment on above: Performed By: #### C MP, PAB, CBC ####[place] [address] [address] Sodium [Moles/Vol] 138 mmol/L Normal 136-145 [facility] Comment on above: Performed By: #### C TAHMINA GRIJALVA, CBC ####[facility] [address] [place] [phone] [facility] Urea nitrogen [Mass/Vol] 9 mg/dL Normal 7-25 [facility] Comment on above: Performed By: #### C TAHMINA GRIJALVA, CBC ####[facility] [address] [place] [id number] [facility] ECG 12 lead ECGon 01-04-2023 ECG 12 lead ECG [facility] Main [place] [address] [place] [address] Electrocardiograph Report Signed Patient: Taras Hayward MR#: [id number] 56 : 1970 Acct:[id number] Age/Sex: 52 / M ADM Date: 01/03/23 Loc: Room: [address] [place] [address] Type: ADM IN Attending Dr: Srinivas Patricia [...] previous ECGs available Confirmed by CINDY ALCALA [id number] on 01/04/2023 11:58:44 AM Referred By: Electronically Signed By:ROSY CALDWELL MD [facility] Transcribed By: MUS Signed By Bonifacio Caldwell MD 01/04/23 1158 Normal [facility] Globulin Calc (S) [Mass/Vol] Ordered By: Srinivas Patricia on 01-04-2023 Globulin (S) [Mass/Vol] 3.4 g/dL [facility] Prealbuminon 01-04-2023 Prealbumin [Mass/Vol] 12.5 mg/dL Low 17.0-34.0 [facility] Comment on above: Result Comment: PERF ORMED BY: [facility] [address] [address] PATHOLOGIST REFINED SYRUP OPERATOR DEVANG LEMONS M.D. Performed By: #### C MP, PAB, CBC ####[facility] [place] [address] [facility] Prealbumin [Mass/volume] in Serum or PlasmaOrdered By: Srinivas Patricia on 01-04-2023 Prealbumin [Mass/Vol] 12.5 mg/dL 17.0-34.0 [facility] Protein [Mass/volume] in Ser um or PlasmaOrdered By: Srinivas Patricia on 01-04-2023 Protein [Mass/Vol] 6.8 g/dL 6.4-8.9 [facility] Serum or plasma albumin/glob ulin mass ratioOrdered By: Srinivas Patricia on 01-04-2023 Albumin/Globulin [Mass ratio] 1.0 {ratio} [facility] Lab Reportson 11-27-2022 Lab Reports [id number]#[id number]:127 Normal [facility] RAD - MISCon 11-15-2022 RAD - MIS [id number]#1.00CD:127 Normal [facility] Coding Summary.on 07-24-2022 Coding Summary. CD:[id number] Gh0bWw+ PGhlYWQ+BW6PUGMuG10bvFDnbV6 DP7oUQS0FTANXXSYRWX4CJW6zsX Z1MTqjO8TkoiEi UkbkbOOnUP25EBk2IZK9sFtpMMz ntV3icEOdV2r4OiWmMR42eD48VV ncRPZxXiK0DcPlpeornGGm W2jjSuTilEEvEnj+PHRhYmxlIHd uPIJjOQdtUCWgKjXfhFolDE5vMo 9yZGVyLWNvbGxhcHNlOiBj p7mqNLWiEBxqGD8ueIqjW6PklIN 9QHUof2w5Pt13wST+ULDhDYR5kV xaBIust220OwQne7mrGIT4 lWEpGDwyEVZ2L73pt2C3JLZfNRY eKDJ6xYO3cB8uvUneygswF5IvqA BdHwQ5URR3gPGnaN2hsTfm lygycI0oNnp+K03ZZY6UGXUXLZ6 NXoz6Q4LtAexqfTD+AN87KIRmHT 20tMUwqOUze8nmcJc6QcWk SURuRZU6sBruWHpmp2KtMXZrI18 qbIVec9J4VIRwfPksaOOsMlUxvL L5rQ8nYZwrpweog0mtqlte Fzrcl8wqac87fB91Z57dNNqeKZL kBIL6DXYaQTVrzNlwwd2zyM2gTc 8+AZbjy6sgn6zlmEt4WeZs EKFxplLzmIqvIXP3r7GqJk12W8W brOuno1ZoXgm2dy66pDZmx9Q5kY V6QWerSSMakG4qJClpYlH8 UJHgAyWiqJ32rQZsJWkoEh3xtNc ljVpeLY6kTPTlpczkLSZplX6gVZ HnfOWrvJbmLW8hAEBwvzsw u519JmPpTKK2WGAarYOrU1MsbR2 fDcJpJPWvKQRxL7TotVKmBYtiF0 27OHxnNxY6UXEpzlWwB7Tz QGCybBamHzC3f9B2Dm0Vj6Ipqvb kRKZ2ARehXBPpRhCgIqDcEmW2O4 PjTma1HBRfeHnrEG3gY1Yc JMIxgnsiqtahpPS6ACQlWRPyaP8 8aFQdLPweCa3wf5A7z029YWVqIJ ThvA42Aq0bsXinVMFjaCMQ sB5bcweaw9lyljtxHrKxNFEhKBl 7REi6VQMsoOkqUfZyWEG4EfE3RT X4eAAhqA3pqSxgthppeA8w Oyc+G61wjU1zFOI9OVL6qpcmMVC nvbAkEL32KN40N7DcVmruoGEmxM U+GHZdgwPkrKqdMR2dJnQu y1jag9OtJFsjQ0HxPEXrGUacRob 9URAkBAL8tVT6iZ6kCBIuSCfiw9 X0rEB9L5AfwpEjef4ji6wr MRUiCRxwO82nzTNnm3F4TKKmkSF 3ANPcfVhsVbJqdO14Ird+PGNvbG tes4HcBgbwb2fjm2cwzCz9 IrVkDZJwieQztLhlWVZ2h0RjAt5 2G99dGMbhPSKvZIDxQYOuRPFipV rtkv9gjQ4vLn6+PGNvbCB3 mTJ7xY3jFSIkGwK4LJpmK614GfR toECbDunhb0wyk1rwuTv3IsAcAX KklxLmnOfdKBZ1u3TkNy38 M84pKWluZSHhOXYcQCRoSMLbkTh txw0vaT2tUu8+BN7wg2anca81sE 48dHI+OHInZSF8pSkoWCjm NBLowB8sWJjhLzQ4WLOrVsBriU6 0xQHlYIieBr0prSormNpzFU6gSY Zxwpqmm571KtAom8wbPSXp fFKqIBzzASC3K74bu2F3KLEfEJX qHCH9hTE9rD7sgRqbjcotlMMhnT ljebJnmEsvTFlqKVexH397 IHRvcDsnPlBhdGllbnQgTmFtZTo 0W2PvDnb4GCMknDpqVD6bxBMcPS jjKj6amCthaZszNC3cCDLg cjgvo587QyQaq3mbNLSakHLsHVp iJDN9R46jb8V0HCTwABVtTTL8pA T8zM5myZgzyyblzUEtiPza gzIfjTrqOYgwUPztC407SYQdhGg kEiRxkxIgQCHauDP0XN93JG08xI Rsu2C6nIK5J6LmACDgooas kljiqRJ0YTHmVEAukB53Qa8weKb zNb9dBFBgGVT6FVEpeDXjD6UnvO 6uUaYbMFDfRHAwN7DgfQTh CVeeZ637HImhYzY6PUOtiaFaC0W zJAPwvZyeAwF5e5K3Je4RH1U7WC 48GU54gRVju9O6vFU9A2Vt FTYyjcwiktumkMC1IJFjSCSrcY5 9Ex1kbBpzKe3bUYHhRZT1FVOudE UzY6EjsL3zDzUyQDBpGKYy M4WljMPsSKkxH380KIbbTrB5FFA pfrNfC8CwGLFtqVdpVnN4j7R3Vj 0IWCv1CS23IB09dXUhq5Q7 qJA7X9UoIVEevwcnfbyciGV8MTG oDTYbtP85Rn7suCehNs0mSFVjIE R4RWNdkPJoX6UefZ2gOmUc GHFmTCGlN8MwbHOhXIwxA146HOa uJlE8CGQnafLnN3WsOYLnpGpiVk A9b5O7Gq4KTFSzUQ19HDQ2 gTJ9AD24RC99G0XsIjkekVEggIO +PHRhYmxlIHdpZHRoPScxMDAlJy RkrZiuNC4eKg8oUYBnCSIw aWvksMCjLuQvz8cgZYScZWnoAK9 qzWqlN7BrkCM1XGRdb3w5Ru80H7 4zD2JuvHM+MPBxpGM7zXU2 wS9cEbMdVhW9MLuwL923FzAmhGD uDlqst1ceu0gtsXv1SiP9FLEeky WsmGphNRS6j5RnDr74C17w IHdpZHRoPSIxNSUiIHZhbGlnbj0 jkK2qGi3+VDXlxUP4pAN0tO0uPh ZvCxJ8GSdcF436LwFxrHCr Oirjr8zdo8kuhIg4GcQlEWIdrbD ekGuxYYC1g1PyHg34L4SbrDygg4 QjDif9so93qXLef3E3dYT8 Z9HgUQDuvlnetHBryKraNF0lGIL wuaujSWBuhI5qJMViE1y7NbTzQq Y9FEtuA1QczbB8TKKaqYAd UXkcHLT7Q21oo2R3JGByUSEjHYQ 7kIV4jS6bxKihqbkeoNKtsWkcim LooAorAWbbIMsnC846PDVa gFrdDMTeoM2fWLNbnBYetCrtHY2 mDMRremwhGfQHC7UrLKQOGIYZRH kgQTwvdGQ+JMCkVQU6uKfn JFfpSLLhbU8dCUFdI8d9YsYaOfU 0EPrmD1SnJZSojvksCn75bT6fKe VmWxA9XBaoD8PxykQ6CGVk xSGcTRhgNXH9N55nj6Q0JITdSXV mQWM2cBZ6hO1dcCtqwuygfFRdoL jvsjImtMpzDFbqDYaaZ231 IYMsiNsePbEgKeUhSoW2AhT7F6O tJcd4ASDrkFxoRP0mcCByAGypIk 0ejNyoeJkaQD9qSYZkytdz ODCnmT1fALCefNDxrTtpOO1nBBD bhlkhv117EvQzRPH8VHTglQDdM7 AeaF8uNwAaGCReOYQmY1Cc eWWbBAiiF745RUudWuR7EEQblnZ aE0BwFHNehVzgJvH8i7W7Rv24IJ BZZWFyczwvdGQ+PHRkIHN0 tGktJXvlVSTtdZ9pBFAjZ3l9ZjM yYvR0BHrbU9TuQSLzjcrtPw41lQ 9nKmTeYgT7SOuiL0LtqjV4 NOKrvQNzTQefCIB3W04im4T3ODE lXLTlENR5mGS3dU6uvEdkjoxqpK VmdDsgdmVydGljYWwtYWxp Y793REPmiAsaQl7kyHM9I3DrPej 5RBOpyDktQZ0icQOfCOeiVp1mbN biiXttWD7wGSGrveivBEAg pS8sIUHdtVNnhNhkUU0yCKDrdiv em200ZzEbWLO7IXIauCNsA9EgrN 8oLoIsYKUeQYPzW3YmaCUi LVfvU773JVxnPrD8LSTbuoAaB3N xQWBnrBnqUnK2g8N5Oh9YTLJyOD VxfCZuCfF3K5AsWytftLX+ FM27EWTuSP00hWOldGElf9uhhQf 9TeBdGAKqUXK9jJlzQGxax4GaDN GpM60syEUwz0Q9RITlaDbm wQOpTxPcyPY2eL5pJGfylvfie3z xiffaRreqa6wpjy19tP04N55nNS dpZHRoPSIzMCUiIHZhbGln mo3bsL8xGd3+SUKpnAF8fMM4eN7 zYqIvMxU6RTqjK206OlHudEAhZt ywc6nci4usoZp1QdFrPPPq aoPbgHbhIZA0n0PmSp53B35mYMc jWZAhKXFlTTVlBFIulJtdxd0qfT 9wIi8+PD5hu2jvku57hO20 dHI+TLDuVMD0rPawHMxdHVZojP5 pIGevZmS0YWXqLkPeqO58zEHnRL lrBp8peIsltRciPA6gMAWz jzkll460XtZpe2maXSKhuEJlVVy mOCV1J38ob5C2VAPsNUTyHML9mS A8kG1slHdafoaiwZLijBhf kyEkhIraSWgfJWvoG835RIBfzMu wXtGnmWWtO7btcmZKAZ9cSicviB Q+SNTcFTM7xTduNRoqLHGh jF8wSNWfN7g2TnBaYpF0COpfO0K uojC2XQTkrYXuMQUeeSHAuK3kcx fke4lernruYtNjZXQtZPd0 UWe3BRDeaUqbSaJjRIP5LmA9WTE 8kSGxlX7wrSjadccwaH2fXzh+Rk lOOjwvdGQ+RLNvCWR2iDiu FZdxQWPrdF6xEDJbZ1r6KsYgWeD 7YZwuT8KlwoJ7VLVveTRhCFShpH TRpI3jumtvv0gmztfoLrQh QIWlDFg2WBi4JKZfnDaiZvGsSUH 6PtX5TET5vICuvE9vuCycnjabpB 9wOyc+TVJOOjwvdGQ+PHRk JSX2vPsyAAhaWRUgpL7vFHYeU7n 3DuFvPfV6EEbsH7AasaH2HJPagN OnQIHncDKGuJ3dzwxll4td ofjxIbPiXROmPSm1WRm1XWXbgNg mOjYiBOK6XbL9PUW3aAWjwT0ftH ykaftcgG7kRxz+GNC5RIY7 HF45WH35P2EcQhcaiNZxiGR+PHR hYmxlIHdpZHRoPScxMDAlJyBzdH vkJD6iKj5eVFUtCBGurXvi cHNl (more content not included)... Normal [facility] Covid-19 PCR (CVDTB[facility])on 07-12 SARS-CoV-2 (COVID-19) RNA JOHN+probe Ql (Unsp spec) Not detected Normal NOT DETECTED [facility] Comment on above: Result Comment: When diagnostic [...] for this test is supported by the [employer] and [employer]'s declaration that [...] longer be used). Performed By: #### C VDTB #### [facility] [address] [place] [address] Dr. Lissa Sage INFLUENZA A AND B [facility] 07-21 [facility] SEE BELOW Normal [facility] Comment on above: Result Comment: Nega tive for Flu A protein angiten. Infection due to Flu A cannot be ruled out. Flu A angiten in the sample may be below the detection limit of the test. Performed By: #### I NFLUAB #### [facility] [address] [place] [address] Dr. [facility] Normal [facility] Comment on above: Result Comment: Nega tive for Flu B protein antigen. Infection due to Flu B cannot be ruled out. Flu B antigen in the sample may be below the detection limit of the test. Performed By: #### I NFLUAB #### [facility] [address] [place] [address] Dr. Lissa Sage INFLUENZA A AG Negative Normal NEGATIVE SEE COMMENT [facility] [facility] Comment on above: Performed By: #### I NFLUAB #### [facility] [address] [place] [address] Dr. Lissa Sage INFLUENZA B AG Negative Normal NEGATIVE SEE COMMENT [facility] Comment on above: Performed By: #### I NFLUAB #### [facility] [address] [place], [place] [address] Dr. Lissa Sage Basic metabolic 2000 panelon 05-24-2022 Anion gap [Moles/Vol] 10 mmol/L Normal 9-18 [facility] Comment on above: Order Comment: Speci men Type: BLOOD SPECIMENOrdering Facility: [facility] Address: [address] [place] [address] Performed By: #### 2 4321-2 ####[facility] LABCLIA [id number] [place] [address] [place] Calcium [Mass/Vol] 8.8 mg/dL Normal 8.5-10.2 [facility] Comment on above: Order Comment: Speci men Type: BLOOD SPECIMENOrdering Facility: [facility] Address: [address] [place] [address] Performed By: #### 2 4321-2 ####[facility] LABCLIA [id number] [place] [address] [place] Chloride [Moles/Vol] 104 mmol/L Normal 97-105 [facility] Comment on above: Order Comment: Speci men Type: BLOOD SPECIMENOrdering Facility: [facility] Address: [address] [place] [address] Performed By: #### 2 4321-2 ####[facility] LABCLIA [id number] [place] [address] [place] CO2 [Moles/Vol] 24 mmol/L Normal 22-30 [facility] Comment on above: Order Comment: Speci men Type: BLOOD SPECIMENOrdering Facility: [facility] Address: [address] [place], [place] [address] Performed By: #### 2 4321-2 ####[facility] LABCLIA [id number] [place] [address] [place] Creatinine [Mass/Vol] 0.94 mg/dL Normal 0.73-1.22 [facility] Comment on above: Order Comment: Speci men Type: BLOOD SPECIMENOrdering Facility: [facility] Address: [address] [address] Performed By: #### 2 4321-2 ####[facility] LABIA [id number] [address] [place] ESTIMATED GLOMERULAR FILTRATION RATE 99 mL/min/1.73m??? Normal >=60 [facility] Comment on above: Order Comment: Kaushikbijal souza Type: BLOOD SPECIMENOrdering Facility: [facility] Address: [address] [address] Result Comment: Paloma mated Glomerular Filtration Rate [...] actual GFR. Performed By: #### 2 4321-2 ####[facility] LABCLIA [id number] [place] [address] [place] Glucose [Mass/Vol] 96 mg/dL Normal 74-99 [facility] Comment on above: Order Comment: Daysi souza Type: BLOOD SPECIMENOrdering Facility: [facility] Address: [address] [place] [address] Result Comment: The [place] [employer] (ADA) provides guidance for cutoff [...] Standards of Medical Care in Diabetes 2016, [place] [employer]. Diabetes Care. 2016.39(Suppl 1). Performed By: #### 2 4321-2 ####[facility] LABCLIA [id number] [place] [address] [place] Potassium [Moles/Vol] 3.6 mmol/L Low 3.7-5.1 [facility] Comment on above: Order Comment: Speci men Type: BLOOD SPECIMENOrdering Facility: [facility] Address: [address] [place] [address] Performed By: #### 2 4321-2 ####[facility] LABCLIA [id number] [place] [address] [place] Sodium [Moles/Vol] 138 mmol/L Normal 136-144 [facility] Comment on above: Order Comment: Speci men Type: BLOOD SPECIMENOrdering Facility: [facility] Address: [address] [place] [address] Performed By: #### 2 4321-2 ####[facility] LABCLIA [id number] [place] [address] [place] Urea nitrogen [Mass/Vol] 14 mg/dL Normal 9-24 [facility] Comment on above: Order Comment: Speci men Type: BLOOD SPECIMENOrdering Facility: [facility] Address: [address] [place] [address] Performed By: #### 2 4321-2 ####[facility] LABCLIA [id number] [place] [address] [place] CBC W Auto Differential pane l (Bld)on 05-24-2022 Basophils (Bld) [#/Vol] 10*3/uL Normal <0.11 [facility] Comment on above: Order Comment: Speci men Type: BLOOD SPECIMEN [facility] Address: [address] [place] [address] Performed By: #### 2 4321-2 #### [facility] CLIA [id number] [address] [place] [address] [place] Basophils/100 WBC (Bld) 0.1 % Normal [facility] Comment on above: Order Comment: Speci men Type: BLOOD SPECIMEN [facility] Address: [address] Performed By: #### 2 4321-2 #### [facility] CLIA [id number] [address] [place] [address] [place] Differential cell count method Nom (Bld) Auto Normal [facility] Comment on above: Order Comment: Speci men Type: BLOOD SPECIMEN [facility] Address: [address] Performed By: #### 2 4321-2 #### [facility] CLIA [id number] [address] [place] [address] [place] Eosinophils (Bld) [#/Vol] 0.06 10*3/uL Normal <0.46 [facility] Comment on above: Order Comment: Speci men Type: BLOOD SPECIMEN [facility] Address: [address] Performed By: #### 2 4321-2 #### [facility] CLIA [id number] [address] [place] [address] [place] Eosinophils/100 WBC (Bld) 0.8 % Normal [facility] Comment on above: Order Comment: Speci men Type: BLOOD SPECIMEN [facility] Address: [address] Performed By: #### 2 4321-2 #### [facility] CLIA [id number] [address] [place] [address] [place] Erythrocyte distribution width (RBC) [Ratio] 14.1 % Normal 11.5-15.0 [facility] Comment on above: Order Comment: Speci men Type: BLOOD SPECIMEN [facility] Address: [address] Performed By: #### 2 4321-2 #### [facility] CLIA [id number] [address] [place] [address] [place] Hematocrit (Bld) [Volume fraction] 33.6 % Low 39.0-51.0 [facility] Comment on above: Order Comment: Speci men Type: BLOOD SPECIMEN [facility] Address: [address] [place] [address] Performed By: #### 2 4321-2 #### [facility] CLIA [id number] [address] [place] [address] [place] Hemoglobin (Bld) [Mass/Vol] 10.9 g/dL Low 13.0-17.0 [facility] Comment on above: Order Comment: Speci men Type: BLOOD SPECIMEN [facility] Address: [address] [place], [place] [address] Performed By: #### 2 4321-2 #### [facility] CLIA [id number] [address] [place] [address] [place] Immature granulocytes (Bld) [#/Vol] 0.04 10*3/uL Normal <0.10 [facility] Comment on above: Order Comment: Speci men Type: BLOOD SPECIMEN [facility] Address: [address] [place], [place] Performed By: #### 2 4321-2 #### [facility] CLIA [id number] [address] [place] [address] [place] Immature granulocytes/100 WBC (Bld) 0.5 % Normal [facility] Comment on above: Order Comment: Speci men Type: BLOOD SPECIMEN [facility] Address: [address] [place] [address] Performed By: #### 2 4321-2 #### [facility] CLIA [id number] [address] [place] [address] [place] Lymphocytes (Bld) [#/Vol] 2.18 10*3/uL Normal 1.00-4.00 [facility] Comment on above: Order Comment: Speci men Type: BLOOD SPECIMEN [facility] Address: [address] [place] [address] Performed By: #### 2 4321-2 #### [facility] CLIA [id number] [address] [place] [address] [place] Lymphocytes/100 WBC (Bld) 27.8 % Normal [facility] Comment on above: Order Comment: Speci men Type: BLOOD SPECIMEN [facility] Address: [address] [place], [place] [address] Performed By: #### 2 4321-2 #### [facility] CLIA [id number] [address] [place] [address] [place] MCH (RBC) [Entitic mass] 28.5 pg Normal 26.0-34.0 [facility] Comment on above: Order Comment: Speci men Type: BLOOD SPECIMEN [facility] Address: [address] [place], [place] [address] Performed By: #### 2 4321-2 #### [facility] CLIA [id number] [address] [place] [address] [place] MCHC (RBC) [Mass/Vol] 32.4 g/dL Normal 30.5-36.0 [facility] Comment on above: Order Comment: Speci men Type: BLOOD SPECIMEN [facility] Address: [address] [place], [place] [address] Performed By: #### 2 4321-2 #### [facility] CLIA [id number] [address] [place] [address] [place] MCV (RBC) [Entitic vol] 87.7 fL Normal 80.0-100.0 [facility] Comment on above: Order Comment: Speci men Type: BLOOD SPECIMEN [facility] Address: [address] Performed By: #### 2 4321-2 #### [facility] CLIA [id number] [address] [place] [address] [place] Monocytes (Bld) [#/Vol] 0.79 10*3/uL Normal <0.87 [facility] Comment on above: Order Comment: Speci men Type: BLOOD SPECIMEN [facility] Address: [address] Performed By: #### 2 4321-2 #### [facility] CLIA [id number] [address] [place] [address] [place] Monocytes/100 WBC (Bld) 10.1 % Normal [facility] Comment on above: Order Comment: Speci men Type: BLOOD SPECIMEN [facility] Address: [address] Performed By: #### 2 4321-2 #### [facility] CLIA [id number] [address] [place] [address] [place] Neutrophils (Bld) [#/Vol] 4.75 10*3/uL Normal 1.45-7.50 [facility] Comment on above: Order Comment: Speci men Type: BLOOD SPECIMEN [facility] Address: [address] Performed By: #### 2 4321-2 #### [facility] CLIA [id number] [address] [place] [address] [place] Neutrophils/100 WBC (Bld) 60.7 % Normal [facility] Comment on above: Order Comment: Speci men Type: BLOOD SPECIMEN [facility] Address: [address] Performed By: #### 2 4321-2 #### [facility] CLIA [id number] [address] [place] [address] [place] Nucleated RBC (Bld) [#/Vol] 10*3/uL Normal <0.01 [facility] Comment on above: Order Comment: Speci men Type: BLOOD SPECIMEN [facility] Address: [address] [place] [address] Performed By: #### 2 4321-2 #### [facility] CLIA [id number] [address] [place] [address] [place] Nucleated RBC/100 WBC (Bld) [Ratio] 0.0 /100 WBC Normal [facility] Comment on above: Order Comment: Speci men Type: BLOOD SPECIMEN [facility] Address: [address] [place] [address] Performed By: #### 2 4321-2 #### [facility] CLIA [id number] [address] [place] [address] [place] Platelet mean volume (Bld) [Entitic vol] 9.6 fL Normal 9.0-12.7 [facility] Comment on above: Order Comment: Speci men Type: BLOOD SPECIMEN [facility] Address: [address] [place], [place] [address] Performed By: #### 2 4321-2 #### [facility] CLIA [id number] [address] [place] [address] [place] Platelets (Bld) [#/Vol] 189 10*3/uL Normal 150-400 [facility] Comment on above: Order Comment: Speci men Type: BLOOD SPECIMEN [facility] Address: [address] [place], [place] [address] Performed By: #### 2 4321-2 #### [facility] CLIA [id number] [address] [place] [address] [place] RBC (Bld) [#/Vol] 3.83 10*6/uL Low 4.20-6.00 [facility] Comment on above: Order Comment: Speci men Type: BLOOD SPECIMEN [facility] Address: [place] [address] Performed By: #### 2 4321-2 #### [facility] CLIA [id number] [address] [place] [address] [place] WBC (Bld) [#/Vol] 7.83 10*3/uL Normal 3.70-11.00 [facility] Comment on above: Order Comment: Speci men Type: BLOOD SPECIMEN [facility] Address: [address] [address] Performed By: #### 2 4321-2 #### [facility] CLIA [id number] [facility] [place] CNDSon 05-24-2022 CNDS HNO ID: [id number] Author: Harsh Coffey MD Service: Urology Author Type: Physician Type: Discharge Summary Filed: 05/24/2022 11:39 AM Note Text: DISCHARGE SUMMARY UROLOGY PATIENT NAME: Taras Hayward ADMISSION DATE: 05/22/2022 DISCHARGE DATE: 05/24/2022 Attending Physician: Jaquelin att. providers found Code Status: Not on [...] Operations During Hospitalization: PERCUTANEOUS NEPHROLITHOTOMY, STENT CHANGE: 83686 (CPT?) Procedures During Hospitalization: Intubation Hospital Course: [...] Coffey MD, FACS Director, Surgical Stone Disease, [facility] [place] chapter relations administrator, [facility] Pager [phone] 05/24/2022 Normal [facility] CULTURE URINEon 05-24-2022 CULTURE URINE Culture Observations : NO GROWTH. Normal [facility] Comment on above: Performed By: #### I NFLUAB #### [facility] [address] [place] [address] Dr. Lissa Sage ER URINE PROFILEon 2 Bilirubin Ql (U) SMALL Abnormal NEGATIVE [facility] Comment on above: Performed By: #### Licha HARGROVE UMICRO #### [facility] [address] [place] [address] Dr. Lissa Sage Clarity (U) CLOUDY Abnormal CLEAR [facility] Comment on above: Performed By: #### Licha HARGROVE UMICRO #### [facility] [address] [place] [address] Dr. Lissa Sage Color (U) BROWN Abnormal YELLOW [facility] Comment on above: Performed By: #### Licha HARGROVE UMICRO #### [facility] [address] [place] [address] Dr. Lissa MUÑOZ A micrscopic examina tion will be performed if indicated. Normal [facility] Comment on above: Performed By: #### E RUShannon UMICRO #### [facility] [address] [place] [address] Dr. Lissa Sage Glucose Ql (U) Negative Normal NEGATIVE [facility] Comment on above: Performed By: #### E DELVIN UMICRO #### [facility] [address] [place] [address] Dr. Lissa Sage Hemoglobin Ql (U) LARGE Abnormal NEGATIVE [facility] Comment on above: Performed By: #### COURTNEY CASTILLORO #### [facility] [address] [place] [address] Dr. Lissa Sage Ketones Ql (U) Negative Normal NEGATIVE [facility] Comment on above: Performed By: #### COURTNEY CASTILLORO #### [facility] [address] [place] [address] Dr. Lissa Sage LEUKOCYTES SMALL Abnormal NEGATIVE [facility] Comment on above: Performed By: #### Licha HARGROVE UMICRO #### [facility] [address] [place] [address] Dr. iLssa Sage Nitrite Ql (U) Positive Abnormal NEGATIVE [facility] Comment on above: Performed By: #### COURTNEY CASTILLORO #### [facility] [address] [place] [address] Dr. Lissa Sage pH (U) 6.5 [pH] Normal 5-9 [facility] Comment on above: Performed By: #### COURTNEY CASTILLORO #### [facility] [address] [place] [address] Dr. Lissa Sage SPEC GRAVITY 1.010 Normal 1.005-<=1. 025 [facility] Comment on above: Performed By: #### COURTNEY CASTILLORO #### [facility] [address] [place] [address] Dr. Lissa Sage UA PROTEIN >300 Abnormal NEGATIVE/ TRACE [facility] Comment on above: Performed By: #### COURTNEY CASTILLORO #### [facility] [address] [place] [address] Dr. Lissa Sage UR MICRO IND INDICATED Normal [facility] Comment on above: Performed By: #### COURTNEY CASTILLORO #### [facility] [address] [place] [address] Dr. Lissa Sage Urobilinogen Qn (U) 0.2 {Gurpreet'U}/dL Normal 0.2 - 1. 0 [facility] Comment on above: Performed By: #### COURTNEY CASTILLORO #### [facility] [address] [place] [address] Dr. Lissa Sage URINE MICROSCOPIC ONLYon BACTERIA TRACE Abnormal NONE SEEN [facility] Comment on above: Performed By: #### Licha HARGROVE UMICRO #### [facility] [address] [place] [address] Dr. Lissa Sage Bacteria identified Cx Nom (U) INDICATED Normal [facility] Comment on above: Performed By: #### E RUR, UMICRO #### [facility] [address] [place] [address] Dr. Lissa Sage CAST NONE SEEN Normal NONE SEEN [facility] Comment on above: Performed By: #### E DELVIN UMICRO #### [facility] [address] [place] [address] Dr. Lissa Sage Crystals LM Nom (Urine sed) NONE SEEN Normal NONE SEEN [facility] Comment on above: Performed By: #### Licha HARGROVE UMICRO #### [facility] [address] [place] [address] Dr. Lissa Sage Epithelial cells LM Ql (Urine sed) RARE Normal NONE SEEN /RARE [facility] Comment on above: Performed By: #### Licha HARGROVE UMICRO #### [facility] [address] [place] [address] Dr. Lissa Sage MUCOUS TRACE Abnormal NONE SEEN [facility] Comment on above: Performed By: #### Licha HARGROVE UMICRO #### [facility] [address] [place] [address] Dr. Lissa Sage RBC (U) [#/Vol] /uL Abnormal 0-2 [facility] Comment on above: Performed By: #### Licha HARGROVE UMICRO #### [facility] [address] [place] [address] Dr. Lissa Sage WBC 10-20 Abnormal NONE SEEN [facility] Comment on above: Performed By: #### E RUShannon UMICRO #### [facility] [address] [place] [address] Dr. Lissa Sage Basic metabolic 2000 panelon 05-23-2022 Anion gap [Moles/Vol] 12 mmol/L Normal 9-18 [facility] Comment on above: Order Comment: Speci men Type: BLOOD SPECIMEN [facility] Address: [address] Performed By: #### 2 4321-2 #### [facility] CLIA [id number] [address] [place] [address] [place] Calcium [Mass/Vol] 9.0 mg/dL Normal 8.5-10.2 [facility] Comment on above: Order Comment: Speci men Type: BLOOD SPECIMEN [facility] Address: [address] Performed By: #### 2 4321-2 #### [facility] CLIA [id number] [address] [place] [address] [place] Chloride [Moles/Vol] 103 mmol/L Normal 97-105 [facility] Comment on above: Order Comment: Speci men Type: BLOOD SPECIMEN [facility] Address: [address] Performed By: #### 2 4321-2 #### [facility] CLIA [id number] [address] [place] [address] [place] CO2 [Moles/Vol] 21 mmol/L Low 22-30 [facility] Comment on above: Order Comment: Speci men Type: BLOOD SPECIMEN [facility] Address: [address] Performed By: #### 2 4321-2 #### [facility] CLIA [id number] [address] [place] [address] [place] Creatinine [Mass/Vol] 0.97 mg/dL Normal 0.73-1.22 [facility] Comment on above: Order Comment: Speci men Type: BLOOD SPECIMEN [facility] Address: [address] Performed By: #### 2 4321-2 #### [facility] CLIA [id number] [facility] [address] ESTIMATED GLOMERULAR FILTRATION RATE 96 mL/min/1.73m??? Normal >=60 [facility] Comment on above: Order Comment: Daysi souza Type: BLOOD SPECIMEN [facility] Address: [address] [place] [place] [address] Result Comment: Paloma mated Glomerular Filtration Rate [...] GFR. Performed By: #### 2 4321-2 #### [facility] CLIA [id number] [address] [place] [address] Glucose [Mass/Vol] 144 mg/dL High 74-99 [facility] Comment on above: Order Comment: Daysi souza Type: BLOOD SPECIMEN [facility] Address: [address] [place] [address] Result Comment: The [place] [employer] (ADA) provides guidance for cutoff [...] Standards of Medical Care in Diabetes 2016, [place] [employer]. Diabetes Care. 2016.39(Suppl 1). Performed By: #### 2 4321-2 #### [facility] CLIA [id number] [facility] [address] [place] Potassium [Moles/Vol] 4.6 mmol/L Normal 3.7-5.1 [facility] Comment on above: Order Comment: Speci men Type: BLOOD SPECIMEN [facility] Address: [address] [address] Performed By: #### 2 4321-2 #### [facility] CLIA [id number] [address] [place] [address] [place] Sodium [Moles/Vol] 136 mmol/L Normal 136-144 [facility] Comment on above: Order Comment: Speci men Type: BLOOD SPECIMEN [facility] Address: [address] [address] Performed By: #### 2 4321-2 #### [facility] CLIA [id number] [address] [place] [address] [place] Urea nitrogen [Mass/Vol] 16 mg/dL Normal 9-24 [facility] Comment on above: Order Comment: Speci men Type: BLOOD SPECIMEN [facility] Address: [address] [place] [address] Performed By: #### 2 4321-2 #### [facility] CLIA [id number] [address] [place] [address] [place] CBC W Auto Differential pane l (Bld)on 05-23-2022 Basophils (Bld) [#/Vol] 10*3/uL Normal <0.11 [facility] Comment on above: Order Comment: Speci men Type: BLOOD SPECIMEN [facility] Address: [address] Performed By: #### 2 4321-2 #### [facility] CLIA [id number] [address] [place] [address] [place] Basophils/100 WBC (Bld) 0.2 % Normal [facility] Comment on above: Order Comment: Speci men Type: BLOOD SPECIMEN [facility] Address: [address] Performed By: #### 2 4321-2 #### [facility] CLIA [id number] [address] [place] [address] [place] Differential cell count method Nom (Bld) Auto Normal [facility] Comment on above: Order Comment: Speci men Type: BLOOD SPECIMEN [facility] Address: [address] [place] [address] Performed By: #### 2 4321-2 #### [facility] CLIA [id number] [address] [place] [address] [place] Eosinophils (Bld) [#/Vol] 10*3/uL Normal <0.46 [facility] Comment on above: Order Comment: Speci men Type: BLOOD SPECIMEN Ordering Facility: [facility] Address: [address] Performed By: #### 2 4321-2 #### [facility] CLIA [id number] [address] [place] [address] [place] Eosinophils/100 WBC (Bld) 0.1 % Normal [facility] Comment on above: Order Comment: Speci men Type: BLOOD SPECIMEN [facility]ing Facility: [facility] Address: [address] [place], [place] [address] Performed By: #### 2 4321-2 #### [facility] CLIA [id number] [address] [place] [address] [place] Erythrocyte distribution width (RBC) [Ratio] 13.9 % Normal 11.5-15.0 [facility] Comment on above: Order Comment: Speci men Type: BLOOD SPECIMEN [facility] Facility: [facility] Address: [address] Performed By: #### 2 4321-2 #### [facility] CLIA [id number] [address] [place] [address] [place] Hematocrit (Bld) [Volume fraction] 37.7 % Low 39.0-51.0 [facility] Comment on above: Order Comment: Speci men Type: BLOOD SPECIMEN [facility] Facility: [facility] Address: [address] [place] [address] Performed By: #### 2 4321-2 #### [facility] CLIA [id number] [address] [place] [address] [place] Hemoglobin (Bld) [Mass/Vol] 12.2 g/dL Low 13.0-17.0 [facility] Comment on above: Order Comment: Speci men Type: BLOOD SPECIMEN [facility]ing Facility: [facility] Address: [address] [place] [address] Performed By: #### 2 4321-2 #### [facility] CLIA [id number] [address] [place] [address] [place] Immature granulocytes (Bld) [#/Vol] 0.08 10*3/uL Normal <0.10 [facility] Comment on above: Order Comment: Speci men Type: BLOOD SPECIMEN [facility] Facility: [facility] Address: [address] [place], [place] [address] Performed By: #### 2 4321-2 #### [facility] CLIA [id number] [address] [place] [address] [place] Immature granulocytes/100 WBC (Bld) 0.7 % Normal [facility] Comment on above: Order Comment: Speci men Type: BLOOD SPECIMEN [facility] Facility: [facility] Address: [address] [place], [place] [address] Performed By: #### 2 4321-2 #### [facility] CLIA [id number] [address] [place] [address] [place] Lymphocytes (Bld) [#/Vol] 1.17 10*3/uL Normal 1.00-4.00 [facility] Comment on above: Order Comment: Speci men Type: BLOOD SPECIMEN [facility] Facility: [facility] Address: [address] Performed By: #### 2 4321-2 #### [facility] CLIA [id number] [address] [place] [address] [place] Lymphocytes/100 WBC (Bld) 9.7 % Normal [facility] Comment on above: Order Comment: Speci men Type: BLOOD SPECIMEN [facility] Facility: [facility] Address: [address] Performed By: #### 2 4321-2 #### [facility] CLIA [id number] [address] [place] [address] [place] MCH (RBC) [Entitic mass] 28.3 pg Normal 26.0-34.0 [facility] Comment on above: Order Comment: Speci men Type: BLOOD SPECIMEN [facility] Facility: [facility] Address: [address] Performed By: #### 2 4321-2 #### [facility] CLIA [id number] [address] [place] [address] [place] MCHC (RBC) [Mass/Vol] 32.4 g/dL Normal 30.5-36.0 [facility] Comment on above: Order Comment: Speci men Type: BLOOD SPECIMEN [facility] Facility: [facility] Address: [address] Performed By: #### 2 4321-2 #### [facility] CLIA [id number] [address] [place] [address] [place] MCV (RBC) [Entitic vol] 87.5 fL Normal 80.0-100.0 [facility] Comment on above: Order Comment: Speci men Type: BLOOD SPECIMEN [facility] Facility: [facility] Address: [address] [place], [place] [address] Performed By: #### 2 4321-2 #### [facility] CLIA [id number] [address] [place] [address] [place] Monocytes (Bld) [#/Vol] 0.93 10*3/uL High <0.87 [facility] Comment on above: Order Comment: Speci men Type: BLOOD SPECIMEN [facility] Facility: [facility] Address: [address] Performed By: #### 2 4321-2 #### [facility] CLIA [id number] [address] [place] [address] [place] Monocytes/100 WBC (Bld) 7.7 % Normal [facility] Comment on above: Order Comment: Speci men Type: BLOOD SPECIMEN [facility] Facility: [facility] Address: [address] [place], [place] [address] Performed By: #### 2 4321-2 #### [facility] CLIA [id number] [address] [place] [address] [place] Neutrophils (Bld) [#/Vol] 9.87 10*3/uL High 1.45-7.50 [facility] Comment on above: Order Comment: Speci men Type: BLOOD SPECIMEN [facility] Facility: [facility] Address: [address] [place], [place] [address] Performed By: #### 2 4321-2 #### [facility] CLIA [id number] [address] [place] [address] [place] Neutrophils/100 WBC (Bld) 81.6 % Normal [facility] Comment on above: Order Comment: Speci men Type: BLOOD SPECIMEN [facility] Facility: [facility] Address: [address] [place], [place] [address] Performed By: #### 2 4321-2 #### [facility] CLIA [id number] [address] [place] [address] [place] Nucleated RBC (Bld) [#/Vol] 10*3/uL Normal <0.01 [facility] Comment on above: Order Comment: Speci men Type: BLOOD SPECIMEN [facility] Facility: [facility] Address: [address] [place], [place] [address] Performed By: #### 2 4321-2 #### [facility] CLIA [id number] [address] [place] [address] [place] Nucleated RBC/100 WBC (Bld) [Ratio] 0.0 /100 WBC Normal [facility] Comment on above: Order Comment: Speci men Type: BLOOD SPECIMEN [facility] Facility: [facility] Address: [address] [place], [place] [address] Performed By: #### 2 4321-2 #### [facility] CLIA [id number] [address] [place] [address] [place] Platelet mean volume (Bld) [Entitic vol] 9.2 fL Normal 9.0-12.7 [facility] Comment on above: Order Comment: Speci men Type: BLOOD SPECIMEN [facility] Facility: [facility] Address: [address] [place], [place] [address] Performed By: #### 2 4321-2 #### [facility] CLIA [id number] [address] [place] [address] [place] Platelets (Bld) [#/Vol] 234 10*3/uL Normal 150-400 [facility] Comment on above: Order Comment: Speci men Type: BLOOD SPECIMEN [facility] Facility: [facility] Address: [address] [place] [address] Performed By: #### 2 4321-2 #### [facility] CLIA [id number] [address] [place] [address] [place] RBC (Bld) [#/Vol] 4.31 10*6/uL Normal 4.20-6.00 [facility] Comment on above: Order Comment: Speci men Type: BLOOD SPECIMEN [facility]ing Facility: [facility] Address: [address] [place] [address] Performed By: #### 2 4321-2 #### [facility] CLIA [id number] [address] [place], [place] [address] [address] [address] [place] WBC (Bld) [#/Vol] 12.08 10*3/uL High 3.70-11.00 [facility] Comment on above: Order Comment: Speci men Type: BLOOD SPECIMEN [facility]ing Facility: [facility] Address: [address] [place] [address] Performed By: #### 2 4321-2 #### [facility] CLIA [id number] [address] [place] [address] [place] NURSING PROGon 05-23-2022 NURSING PROG HNO ID: [id number] Author: Kaitlin Keane RN Service: ? Author Type: Registered Nurse Type: Nursing Progress Note Filed: 05/23/2022 6:12 PM Note Text: Nursing Progress Note Topic of Note: Daily Note Taras Hayward [id number] 0930: kramer emptied fro 900cc bloody urine. 1249: noted only 50cc bloddy urine in kramer bag. Pt denies any pressure or pain. Dr coffey at bedside, made aware of output. Dr coffey advised to do serial urines. Informed patient to keep drinking and walking. 1417: no urine noted in drainage bag. Notified [address]. Pt denies pressure or pain. Noted feeling pressure when sat to have a BM. No bm and pressure gone when pt got back to bed. 1447: bladder scanned for 245cc. 1500: Елена SECRETARY OF STATE to bedside to irrigate, no clots noted but urnie began flowing. Will monitor. 1720:no urine output since 1500, pt becoming uncomfortable, encouaged to walk, no output, so bladder scanned for 127cc. 1745: spoke with Елена ACOSTA, ok to irrigate. 1800:irrigated with 100cc, with immediate return for a total of 900cc, pt with much relief. This note was completed by: Kaitlin Thomson [facility] ANES POSTPROC EVALon 022 ANES POSTPROC EVAL HNO ID: [id number] Author: Chapo Alcala DO Service: ? Author Type: Anesthesiologist Type: Anesthesia Postprocedure Evaluation Filed: 05/22/2022 4:18 PM Note Text: POST ANESTHESIA EVALUATION NOTE : 1970 Procedure Summary Date: 05/22/22 Room / Location: [address] [facility] Anesthesia Start: 1328 Anesthesia Stop: 1601 [...] May 22, 2022 TIME: 4:16 PM CSN: [id number] Normal [facility] ANES PRE-OPon 05-22-2022 ANES PRE-OP HNO ID: [id number] Author: Chapo Alcala DO Service: ? Author Type: Anesthesiologist Type: Anesthesia Preprocedure Evaluation Filed: 05/22/2022 12:55 PM Note Text: ANESTHESIOLOGY DAY OF SURGERY NOTE : 1970 Procedure Information Date/Time: 05/22/22 1248 Procedure: PERCUTANEOUS NEPHROLITHOTOMY (Right: Kidney) [facility] [address] [facility]: Harsh Coffey MD Estimated body mass [...] afterwards, # 2 tab(s), Refills(s) 0, Pharmacy: [facility]/pharmacy #[id number] Start Date: 08/22/19 Status: Ordered - [...] May 22, 2022 TIME: 12:55 PM CSN: [id number] Normal [facility] BRIEF OP NOTon 05-22-2022 BRIEF OP NOT HNO ID: [id number] Author: Tejinder Quezada MD Service: Radiology Author Type: Physician Type: Brief Op Note Filed: 05/22/2022 10:29 AM Note Text: OPERATIVE/PROCEDURE REPORT LOG ID: [id number] SURGERY/PROCEDURE DATE: 05/22/2022 INCISION/PROCEDURE START TIME: 8:33 AM INCISION CLOSE/PROCEDURE END TIME: 10:13 AM SURGEON(S)/PROCEDURALIST(S) AND FAMILY PRESERVATION CASEWORKER(S): Surgeon(s) and Role: * Tejinder Quezada MD [...] May 22, 2022 TIME: 10:22 AM Normal [facility] Bacteria Ur Culton Bacteria identified Cx Nom (U) CULTURE, URINE: No growth (<100 CFU/ml) Normal [facility] Comment on above: Performed By: #### 6 30-4 ####[facility] [id number] [place] [address] [place] Basic metabolic 2000 panelon 05-22-2022 Anion gap [Moles/Vol] 12 mmol/L Normal 9-18 [facility] Comment on above: Order Comment: Speci men Type: BLOOD SPECIMENOrdering Facility: [facility] Address: [address] [place] [address] [place] [address] Performed By: #### 2 4321-2 ####[facility] [id number] [place] [address] [place] Calcium [Mass/Vol] 8.8 mg/dL Normal 8.5-10.2 [facility] Comment on above: Order Comment: Speci men Type: BLOOD SPECIMENOrdering Facility: [facility] Address: [address] [place] [address] Performed By: #### 2 4321-2 ####[facility] [id number] [place] [address] [place] Chloride [Moles/Vol] 105 mmol/L Normal 97-105 [facility] Comment on above: Order Comment: Speci men Type: BLOOD SPECIMENOrdering Facility: [facility] Address: [address] [place] [address] Performed By: #### 2 4321-2 ####[facility] [id number] [place] [address] [place] CO2 [Moles/Vol] 22 mmol/L Normal 22-30 [facility] Comment on above: Order Comment: Speci men Type: BLOOD SPECIMENOrdering Facility: [facility] Address: [address] Performed By: #### 2 4321-2 ####[facility] [id number] [place] [address] [place] Creatinine [Mass/Vol] 1.02 mg/dL Normal 0.73-1.22 [facility] Comment on above: Order Comment: Speci men Type: BLOOD SPECIMENOrdering Facility: [facility] Address: [address] Performed By: #### 2 4321-2 ####[facility] [id number] [place] [address] [place] ESTIMATED GLOMERULAR FILTRATION RATE 90 mL/min/1.73m??? Normal >=60 [facility] Comment on above: Order Comment: Speci men Type: BLOOD SPECIMENOrdering Facility: [facility] Address: [address] [place] [address] Result Comment: Paloma mated Glomerular Filtration Rate [...] actual GFR. Performed By: #### 2 4321-2 ####[facility] [id number] [place] [address] [place] Glucose [Mass/Vol] 143 mg/dL High 74-99 [facility] Comment on above: Order Comment: Daysi souza Type: BLOOD SPECIMENOrdering Facility: [facility] Address: [address] [place] [address] Result Comment: The [place] [employer] (ADA) provides guidance for cutoff [...] Standards of Medical Care in Diabetes 2016, [place] [employer]. Diabetes Care. 2016.39(Suppl 1). Performed By: #### 2 4321-2 ####[facility] [id number] [place] [address] [place] Potassium [Moles/Vol] 4.4 mmol/L Normal 3.7-5.1 [facility] Comment on above: Order Comment: Daysi souza Type: BLOOD SPECIMENOrdering Facility: [facility] Address: [address] [address] Performed By: #### 2 4321-2 ####[facility] [id number] [place] [address] [place] Sodium [Moles/Vol] 139 mmol/L Normal 136-144 [facility] Comment on above: Order Comment: Speci men Type: BLOOD SPECIMENOrdering Facility: [facility] Address: [address] [place] [address] Performed By: #### 2 4321-2 ####[facility] [id number] [place] [address] [place] Urea nitrogen [Mass/Vol] 17 mg/dL Normal 9-24 [facility] Comment on above: Order Comment: Speci men Type: BLOOD SPECIMENOrdering Facility: [facility] Address: [address] [place] [address] Performed By: #### 2 4321-2 ####[facility] [id number] [place] [address] [place] CALCULI ANALYSISon 2 Calculus analysis [Interp] Normal [facility] Comment on above: Order Comment: Speci men Type: BLOOD SPECIMEN [facility] Address: [address] [place] [place] [address] Result Comment: This test was developed and its performance characteristics determined by [facility]'s Cristobal JFarida [facility] Pathology and Laboratory Medicine [place] (-[facility]). It has not been cleared or approved by the FDA. -[facility] is regulated under CLIA as qualified to perform high-complexity testing. This test is used for clinical purposes. It should not be regarded as investigational or for research. Performed By: #### 2 4321-2 #### [facility] CLIA [id number] [address] [place] [address] [place] CALCULUS COLOR BROWN AND BEIGE Normal [facility] Comment on above: Order Comment: Speci men Type: BLOOD SPECIMEN [facility] Address: [address] [place] [address] Performed By: #### 2 4321-2 #### [facility] CLIA [id number] [address] [place] CALCULUS COMPOSITION 1 60% Calcium Phosphate Normal [facility] Comment on above: Order Comment: Speci men Type: BLOOD SPECIMEN [facility] Facility: [facility] Address: [address] [place] [address] Performed By: #### 2 4321-2 #### [facility] CLIA [id number] [address] [place] CALCULUS COMPOSITION 2 30% Calcium Oxala te Monohydrate Normal [facility] Comment on above: Order Comment: Speci men Type: BLOOD SPECIMEN [facility] Facility[facility] Address: [address] Performed By: #### 2 4321-2 #### [facility] CLIA [id number] [address] [place] CALCULUS COMPOSITION 3 10% Minor Components Normal [facility] Comment on above: Order Comment: Speci men Type: BLOOD SPECIMEN [facility] Address: [address] [place] [address] Performed By: #### 2 4321-2 #### [facility] CLIA [id number] [address] [place] [address] [place] CALCULUS SIZE AND WT Multiple pieces. 0. 4795 GRAMS Normal [facility] Comment on above: Order Comment: Speci men Type: BLOOD SPECIMEN [facility] Address: [address] [place] [address] Performed By: #### 2 4321-2 #### [facility] CLIA [id number] [address] [place] [address] [place] CALCULUS TYPE Calculus, CALCULI/CALCULUS Normal [facility] Comment on above: Order Comment: Speci men Type: BLOOD SPECIMEN [facility] Address: [address] [place] [address] Performed By: #### 2 4321-2 #### [facility] CLIA [id number] [address] [place] [address] [place] CBC W Auto Differential pane l (Bld)on 05-22-2022 Basophils (Bld) [#/Vol] 10*3/uL Normal <0.11 [facility] Comment on above: Order Comment: Speci men Type: BLOOD SPECIMEN [facility] Address: [address] Performed By: #### 5 7021-8 #### [facility] CLIA [id number] [address] [place] [address] [place] Basophils/100 WBC (Bld) 0.2 % Normal [facility] Comment on above: Order Comment: Speci men Type: BLOOD SPECIMEN [facility] Facility[facility] Address: [address] [place], [place] [address] Performed By: #### 5 7021-8 #### [facility] CLIA [id number] [address] [place] [address] [place] Differential cell count method Nom (Bld) Auto Normal [facility] Comment on above: Order Comment: Speci men Type: BLOOD SPECIMEN [facility] Address: [address] [place], [place] [address] Performed By: #### 5 7021-8 #### [facility] CLIA [id number] [address] [place] [address] [place] Eosinophils (Bld) [#/Vol] 10*3/uL Normal <0.46 [facility] Comment on above: Order Comment: Speci men Type: BLOOD SPECIMEN [facility] Facility[facility] Address: [address] [place] [address] Performed By: #### 5 7021-8 #### [facility] CLIA [id number] [address] [place] [address] [place] Eosinophils/100 WBC (Bld) 0.0 % Normal [facility] Comment on above: Order Comment: Speci men Type: BLOOD SPECIMEN [facility] Address: [address] Performed By: #### 5 7021-8 #### [facility] CLIA [id number] [address] [place] [address] [place] Erythrocyte distribution width (RBC) [Ratio] 14.2 % Normal 11.5-15.0 [facility] Comment on above: Order Comment: Speci men Type: BLOOD SPECIMEN [facility] Address: [address] Performed By: #### 5 7021-8 #### [facility] CLIA [id number] [address] [place] [address] [place] Hematocrit (Bld) [Volume fraction] 44.1 % Normal 39.0-51.0 [facility] Comment on above: Order Comment: Speci men Type: BLOOD SPECIMEN [facility] Facility[facility] Address: [address] [place], [place] [address] Performed By: #### 5 7021-8 #### [facility] CLIA [id number] [address] [place] [address] [place] Hemoglobin (Bld) [Mass/Vol] 13.9 g/dL Normal 13.0-17.0 [facility] Comment on above: Order Comment: Speci men Type: BLOOD SPECIMEN [facility] Address: [address] [place] [address] Performed By: #### 5 7021-8 #### [facility] CLIA [id number] [address] [place] [address] [place] Immature granulocytes (Bld) [#/Vol] 0.06 10*3/uL Normal <0.10 [facility] Comment on above: Order Comment: Speci men Type: BLOOD SPECIMEN [facility] Address: [address] [place], [place] [address] Performed By: #### 5 7021-8 #### [facility] CLIA [id number] [address] [place] [address] [place] Immature granulocytes/100 WBC (Bld) 0.5 % Normal [facility] Comment on above: Order Comment: Speci men Type: BLOOD SPECIMEN [facility] Facility[facility] Address: [address] [place], [place] [address] Performed By: #### 5 7021-8 #### [facility] CLIA [id number] [address] [place] [address] [place] Lymphocytes (Bld) [#/Vol] 0.77 10*3/uL Low 1.00-4.00 [facility] Comment on above: Order Comment: Speci men Type: BLOOD SPECIMEN [facility] Facility: [facility] Address: [address] [place], [place] [address] Performed By: #### 5 7021-8 #### [facility] CLIA [id number] [address] [place] [address] [place] Lymphocytes/100 WBC (Bld) 6.5 % Normal [facility] Comment on above: Order Comment: Speci men Type: BLOOD SPECIMEN [facility] Facility[facility] Address: [address] [place], [place] [address] Performed By: #### 5 7021-8 #### [facility] CLIA [id number] [address] [place] [address] [place] MCH (RBC) [Entitic mass] 28.2 pg Normal 26.0-34.0 [facility] Comment on above: Order Comment: Speci men Type: BLOOD SPECIMEN [facility] Facility: [facility] Address: [address] [place], [place] [address] Performed By: #### 5 7021-8 #### [facility] CLIA [id number] [address] [place] [address] [place] MCHC (RBC) [Mass/Vol] 31.5 g/dL Normal 30.5-36.0 [facility] Comment on above: Order Comment: Speci men Type: BLOOD SPECIMEN [facility] Facility: [facility] Address: [address] [place], [place] [address] Performed By: #### 5 7021-8 #### [facility] CLIA [id number] [address] [place] [address] [place] MCV (RBC) [Entitic vol] 89.5 fL Normal 80.0-100.0 [facility] Comment on above: Order Comment: Speci men Type: BLOOD SPECIMEN [facility] Facility: [facility] Address: [address] [place], [place] [address] Performed By: #### 5 7021-8 #### [facility] CLIA [id number] [address] [place] [address] [place] Monocytes (Bld) [#/Vol] 0.45 10*3/uL Normal <0.87 [facility] Comment on above: Order Comment: Speci men Type: BLOOD SPECIMEN [facility] Facility: [facility] Address: [address] [place], [place] [address] Performed By: #### 5 7021-8 #### [facility] CLIA [id number] [address] [place] [address] [place] Monocytes/100 WBC (Bld) 3.8 % Normal [facility] Comment on above: Order Comment: Speci men Type: BLOOD SPECIMEN [facility] Facility: [facility] Address: [address] [place], [place] [address] Performed By: #### 5 7021-8 #### [facility] CLIA [id number] [address] [place] [address] [place] Neutrophils (Bld) [#/Vol] 10.49 10*3/uL High 1.45-7.50 [facility] Comment on above: Order Comment: Speci men Type: BLOOD SPECIMEN [facility]ing Facility: [facility] Address: [address] Performed By: #### 5 7021-8 #### [facility] CLIA [id number] [address] [place] [address] [place] Neutrophils/100 WBC (Bld) 89.0 % Normal [facility] Comment on above: Order Comment: Speci men Type: BLOOD SPECIMEN [facility] Facility: [facility] Address: [address] Performed By: #### 5 7021-8 #### [facility] CLIA [id number] [address] [place] [address] [place] Nucleated RBC (Bld) [#/Vol] 10*3/uL Normal <0.01 [facility] Comment on above: Order Comment: Speci men Type: BLOOD SPECIMEN [facility] Facility: [facility] Address: [address] Performed By: #### 5 7021-8 #### [facility] CLIA [id number] [address] [place] [address] [place] Nucleated RBC/100 WBC (Bld) [Ratio] 0.0 /100 WBC Normal [facility] Comment on above: Order Comment: Speci men Type: BLOOD SPECIMEN [facility] Facility: [facility] Address: [address] Performed By: #### 5 7021-8 #### [facility] CLIA [id number] [address] [place] [address] [place] Platelet mean volume (Bld) [Entitic vol] 9.3 fL Normal 9.0-12.7 [facility] Comment on above: Order Comment: Speci men Type: BLOOD SPECIMEN [facility] Facility: [facility] Address: [address] [place], [place] [address] Performed By: #### 5 7021-8 #### [facility] CLIA [id number] [address] [place] [address] [place] Platelets (Bld) [#/Vol] 239 10*3/uL Normal 150-400 [facility] Comment on above: Order Comment: Speci men Type: BLOOD SPECIMEN [facility] Facility: [facility] Address: [address] [place] [address] Performed By: #### 5 7021-8 #### [facility] CLIA [id number] [address] [place] [address] [place] RBC (Bld) [#/Vol] 4.93 10*6/uL Normal 4.20-6.00 [facility] Comment on above: Order Comment: Speci men Type: BLOOD SPECIMEN [facility] Facility: [facility] Address: [address] [place] [address] Performed By: #### 5 7021-8 #### [facility] CLIA [id number] [address] [place] [address] [place] WBC (Bld) [#/Vol] 11.79 10*3/uL High 3.70-11.00 [facility] Comment on above: Order Comment: Speci men Type: BLOOD SPECIMEN [facility] Facility: [facility] Address: [address] [place] [address] Performed By: #### 5 7021-8 #### [facility] CLIA [id number] [address] [place] [address] [place] HISTORY PHYSICALon HISTORY PHYSICAL HNO ID: [id number] Author: Tejinder Quezada MD Service: Interventional Radiology [...] 22, 2022 TIME: 7:11 AM PAGER: Normal [facility] IR NEPHROSTOMY TUBE PLACEon 05-22-[address] * * *Final Report* * * DATE OF EXAM: May 22 2022 10:13AM [facility] 0779 - IR NEPHROSTOMY TUBE PLACE [...] distal ureter. Over a wire, a #6 [place] straight nephroureteral catheter was placed with its [...] Specimens: none ATTENDING RADIOLOGIST: Tejinder Quezada M.D. FAMILY PRESERVATION CASEWORKER: None The procedure was performed by the: attending radiologist, without an laboratory chemical assistant. The attending radiologist performed the following [...] pole calyx, (more content not included)... Normal [facility] NURSING PROGon 05-22-2022 NURSING PROG HNO ID: [id number] Author: Wilma Sahu RN Service: Nursing Author Type: Registered Nurse Type: Nursing Progress Note Filed: 05/22/2022 5:57 PM Note Text: Admission/Transfer Note PATIENT NAME: Taras Hayward Patient admitted from PACU via bed in stable condition. Actions taken: Patient oriented to room, call light function, prescribed activities, Patient rights, and Quiet at night. This note was completed by: Wilma Sahu [facility] OPERATIVE NOon 05-22-2022 OPERATIVE NO HNO ID: [id number] Author: Harsh Coffey MD Service: Urology Author Type: Physician Type: Operative Report Filed: 05/23/2022 7:34 PM Note Text: OPERATIVE/PROCEDURE REPORT LOG ID: [id number] Surgery/Procedure Date: 05/22/2022 Incision/Procedure Start Time: 2:31 PM Incision Close/Procedure End Time: 3:47 PM Surgeon(s)/Proceduralist(s) and Certified Massage Therapist(s): Surgeon(s) and Role: * Harsh Coffey MD [...] the bladder with fluoroscopy. An angled open-ended (Magnolia) catheter was passed over the stiff glide [...] Post-Op Di (more content not included)... Normal [facility] SURGICAL PATHOLOGYon 022 CASE REPORT Normal [facility] Comment on above: Order Comment: Speci men Type: DEVICE SPECIMENOrdering Facility: [facility] Address: [address] [place] [phone] Result Comment: Surg ical Pathology Report Case: [id number] Authorizing Provider: Harsh Coffey MD Collected: 05/22/2022 03:11 PM Ordering Location: Admitting Received: 05/22/2022 04:23 PM Pathologist: Daxa Barlow MD Specimen: HARDWARE, Right Double J Stent for gross Performed By: #### S ####[facility] [id number] [address] OF [facility] CLINICAL HISTORY Normal [facility] Comment on above: Order Comment: Speci men Type: DEVICE SPECIMENOrdering Facility: [facility] Address: [address] [address] Result Comment: Pre- op diagnosis: Nephrolithiasis [N20.0] Performed By: #### S ####[facility] [id number] [address] FINAL DIAGNOSIS Normal [facility] Comment on above: Order Comment: Speci men Type: DEVICE SPECIMENOrdering Facility: [facility] Address: [address] [address] Result Comment: A. S ite not specified, hardware removal: -Grossly unremarkable stent (gross examination only). JKD/KSZ 05/23/2022 Performed By: #### S ####[facility] [id number] [address] FINAL PERFORMING LAB Normal [facility] Comment on above: Order Comment: Speci men Type: DEVICE SPECIMENOrdering Facility: [facility] Address: [address] Result Comment: Diag nostic interpretation performed at [facility], [address] [address] CLIA# [id number] Liner Assembler: Manuel Mueller M.D. Performed By: #### S ####[facility] [id number] [address] [id number] [facility] GROSS DESCRIPTION A. HARDWARE Normal [facility] Comment on above: Order Comment: Speci men Type: DEVICE SPECIMENOrdering Facility: [facility] Address: [address] [place] [address] Result Comment: Rece ived in formalin, labeled right double-J stent is a royal plastic stent measuring 42 cm in length. There is no soft tissue present. The specimen is reviewed with Dr. Barlow. No sections are submitted. AISHA May 23, 2022 10:55 AM Gross examination performed at [facility], [address] [place] [address] Performed By: #### S ####[facility] [id number] [address] [place] XR CHEST 1V FRONTAL PORTon 1 07-23-2021 [...] follow-up PA and lateral recommended when possible. Rock Lather: JONAH Transcribe Date/Time: May 22 2022 5:38P Dictated by : JACKY LI MD This examination was interpreted and the report reviewed and electronically signed by: BETH LOMBARDI MD on May 22 2022 5:55PM EST [id number] Normal [facility] ECG COMPLETEon 05-18-2022 ECG COMPLETE Ventricular Rate : 9 8 BPM Atrial Rate : 98 BPM P-R Interval : 196 ms QRS Duration : 88 ms Q-T Interval : 354 ms QTC Calculation(Bazett) : 451 ms Calculated P Dell : 6 degrees Calculated R Dell : 44 degrees Calculated T Dell : 31 degrees NORMAL SINUS RHYTHM NORMAL ECG Confirmed by NABEEL DIAZ MD ([id number]) on 05/21/2022 12:34:10 PM NAME : TARAS HAYWARD PID : [id number] : 1970 Gender : Male Race : ORD : [id number] Procedure Date : May 18 2022 14:39:40 Edit Date : May 21 2022 12:34:11 Diagnosis: NORMAL SINUS RHYTHM NORMAL ECG Confirmed by NABEEL DIAZ MD ([id number]) on 05/21/2022 12:34:10 PM Test Reason : Location : 119 : A17 A17 Overread By : NABEEL DIAZ MD Edited By : NABEEL DIAZ MD Referred By : CYNTHIA BLACKWOOD Acquired by : SWATI MCKEON [facility] HISTORY PHYSICALon HISTORY PHYSICAL HNO ID: [id number] Author: Cynthia Blackwood APRN.NICOLE Service: ? Author Type: Nurse Practitioner Type: [...] fevers. Neurological: No history of TIA's, stroke, COLOR DRUM WORKER tumor, impaired sensorium, hemiplegia, paraplegia or quadraplegia. [...] CAD, chest pain, CHF, DVT/PE, hyperlipidemia, recent [place] and murmur/valvular heart disease. GI: No history [...] by mout (more content not included)... Normal [facility] HbA1c (Bld)on 05-18-2022 Average glucose Estimated from glycated hemoglobin (Bld) [Mass/Vol] 114 mg/dL Normal [facility] Comment on above: Order Comment: Speci men Type: BLOOD SPECIMENOrdering Facility: [facility] Address: [address] [place] [phone] Result Comment: eAG: (Estimated average glucose) is a calculated value from HgbA1c and is fraud representative of the average blood glucose level in the last 2-3 month period. Performed By: #### 5 5454-3 ####[facility] [id number] [address] [id number] [place] [facility] HbA1c (Bld) [Mass fraction] 5.6 % Normal 4.3-5.6 [facility] Comment on above: Order Comment: Speci men Type: BLOOD SPECIMENOrdering Facility: [facility] Address: [address] [place] [address] Result Comment: Amer [place] Diabetes Association guidelines indicate that patients with HgbA1c in the range 5.7-6.4% are at increased risk for development of diabetes, and intervention by lifestyle modification may be beneficial. HgbA1c greater or equal to 6.5% is considered diagnostic of diabetes. Performed By: #### 5 5454-3 ####[facility] [id number] [address] [id number] [facility] NURSING PROGon 05-15-2022 NURSING PROG HNO ID: [id number] Author: Edis Garza RN Service: Nursing Author Type: Registered Nurse Type: Nursing Progress Note Filed: 05/15/2022 11:17 AM Note Text: Pre-procedure instructions: Contacted Taras and teo appt. for neph tube w/PUP scheduled on Sunday05/22/22, at [facility]. I will wait while you get a [...] signed. Arrival at 0600 to desk [facility] and check in for your procedure. Quality Liaison/Transportation: How will you be arriving for your procedure? Private car. If you will be arriving at [facility] via ambulance or public transportation, please call to discuss. You will need a responsible adult to accompany you to and from the procedure. Your regional dedicated truck driver is required to stay with you until you are taken into the Procedure room. If you develop any of the following symptoms before your procedure, please call [phone]. Chills, joint pain, rash, sore throat, cough, [...] discuss. Written instructions provided to patient via Spryt If you have any questions please call [phone] Normal [facility] CNPNanda 05-10-2022 CNPN Telephone (UROJOSEPHN) TARAS HAYWARD ([id number]) 1970 M Date Time Provider Department 05/10/22 DELLA RFEDERICK During your visit today, we recorded the [...] afterwards, # 2 tab(s), Refills(s) 0, Pharmacy: [facility]/pharmacy #[id number] Start Date: 08/22/19 Status: Ordered - nystatin-triamcinolone [...] Status:Closed by DELLA FREDERICK on 05/10/22 Normal [facility] 25(OH)D3 SerPl-mCncon 2021 25-hydroxyvitamin D3 [Mass/Vol] 15.9 ng/mL Low 31.0-80.0 [facility] Comment on above: Order Comment: Speci men Type: BLOOD SPECIMEN [facility] Facility: [facility] Address: [address] [place] [address] Result Comment: Clas sification of 25 [place] Vitamin D status: Deficiency/Insufficiency: < or = 30 ng/ml. Sufficiency/Optimal Levels: 31-80 ng/mL Toxicity: > 100 ng/mL. Test performed by chemiluminescent immunoassay. Performed By: #### 2 4321-2 #### [facility] CLIA [id number] [address] [place] [address] [place] [address] [place] Bacteria Ur Culton [...] F Susceptible <=40 , Resistant >40 Abnormal [facility] Comment on above: Performed By: #### 6 30-4 ####[facility] [id number] [address] [place] CBC W Auto Differential pane l (Bld)on 05-09-2022 Basophils (Bld) [#/Vol] <0.11 k/uL [facility] Basophils/100 WBC (Bld) 0.2 % [facility] Differential cell count method Nom (Bld) Auto [facility] Eosinophils (Bld) [#/Vol] 0.05 10*3/uL <0.46 k/uL [facility] Eosinophils/100 WBC (Bld) 0.6 % [facility] Erythrocyte distribution width (RBC) [Ratio] 14.3 % 11.5 - 15.0 % [facility] Hematocrit (Bld) [Volume fraction] 46.1 % 39.0 - 51.0 % [facility] Hemoglobin (Bld) [Mass/Vol] 14.8 g/dL 13.0 - 17.0 g/dL [facility] Immature granulocytes (Bld) [#/Vol] 0.03 10*3/uL <0.10 k/uL [facility] Immature granulocytes/100 WBC (Bld) 0.4 % [facility] Lymphocytes (Bld) [#/Vol] 2.20 10*3/uL 1.00 - 4.00 k/uL [facility] Lymphocytes/100 WBC (Bld) 26.4 % [facility] MCH (RBC) [Entitic mass] 28.0 pg 26.0 - 34.0 pg [facility] MCHC (RBC) [Mass/Vol] 32.1 g/dL 30.5 - 36.0 g/dL [facility] MCV (RBC) [Entitic vol] 87.1 fL 80.0 - 100.0 fL [facility] Monocytes (Bld) [#/Vol] 0.74 10*3/uL <0.87 k/uL [facility] Monocytes/100 WBC (Bld) 8.9 % [facility] Neutrophils (Bld) [#/Vol] 5.29 10*3/uL 1.45 - 7.50 k/uL [facility] Neutrophils/100 WBC (Bld) 63.5 % [facility] Nucleated RBC (Bld) [#/Vol] <0.01 k/uL [facility] Nucleated RBC/100 WBC (Bld) [Ratio] 0.0 /100 WBC [facility] Platelet mean volume (Bld) [Entitic vol] 10.3 fL 9.0 - 12.7 fL [facility] Platelets (Bld) [#/Vol] 295 10*3/uL 150 - 400 k/uL [facility] RBC (Bld) [#/Vol] 5.29 10*6/uL 4.20 - 6.00 m/uL [facility] WBC (Bld) [#/Vol] 8.33 10*3/uL 3.70 - 11.00 k/uL [facility] Basophils (Bld) [#/Vol] 10*3/uL Normal <0.11 [facility] Comment on above: Order Comment: Speci men Type: BLOOD SPECIMEN [facility]: [facility] Address: [address] Performed By: #### 2 4321-2 #### [facility] CLIA [id number] [address] [place] [address] [place] Basophils/100 WBC (Bld) 0.2 % Normal [facility] Comment on above: Order Comment: Speci men Type: BLOOD SPECIMEN [facility] Facility: [facility] Address: [address] [address] Performed By: #### 2 4321-2 #### [facility] CLIA [id number] [address] [place] [address] [place] Differential cell count method Nom (Bld) Auto Normal [facility] Comment on above: Order Comment: Speci men Type: BLOOD SPECIMEN [facility] Facility: [facility] Address: [address] Performed By: #### 2 4321-2 #### [facility] CLIA [id number] [address] [place] [address] [place] Eosinophils (Bld) [#/Vol] 0.05 10*3/uL Normal <0.46 [facility] Comment on above: Order Comment: Speci men Type: BLOOD SPECIMEN [facility] Facility: [facility] Address: [address] Performed By: #### 2 4321-2 #### [facility] CLIA [id number] [address] [place] [address] [place] Eosinophils/100 WBC (Bld) 0.6 % Normal [facility] Comment on above: Order Comment: Speci men Type: BLOOD SPECIMEN [facility] Facility: [facility] Address: [address] Performed By: #### 2 4321-2 #### [facility] CLIA [id number] [address] [place] [address] [place] Erythrocyte distribution width (RBC) [Ratio] 14.3 % Normal 11.5-15.0 [facility] Comment on above: Order Comment: Speci men Type: BLOOD SPECIMEN [facility] Facility: [facility] Address: [address] [place] [address] Performed By: #### 2 4321-2 #### [facility] CLIA [id number] [address] [place] [address] [place] Hematocrit (Bld) [Volume fraction] 46.1 % Normal 39.0-51.0 [facility] Comment on above: Order Comment: Speci men Type: BLOOD SPECIMEN [facility]ing Facility: [facility] Address: [address] [place] [address] Performed By: #### 2 4321-2 #### [facility] CLIA [id number] [address] [place] [address] [place] Hemoglobin (Bld) [Mass/Vol] 14.8 g/dL Normal 13.0-17.0 [facility] Comment on above: Order Comment: Speci men Type: BLOOD SPECIMEN [facility] Facility: [facility] Address: [address] [place] [address] Performed By: #### 2 4321-2 #### [facility] CLIA [id number] [address] [place] [address] [place] Immature granulocytes (Bld) [#/Vol] 0.03 10*3/uL Normal <0.10 [facility] Comment on above: Order Comment: Speci men Type: BLOOD SPECIMEN [facility] Facility: [facility] Address: [address] [place], [place] [address] Performed By: #### 2 4321-2 #### [facility] CLIA [id number] [address] [place] [address] [place] Immature granulocytes/100 WBC (Bld) 0.4 % Normal [facility] Comment on above: Order Comment: Speci men Type: BLOOD SPECIMEN [facility] Facility: [facility] Address: [address] Performed By: #### 2 4321-2 #### [facility] CLIA [id number] [address] [place] [address] [place] Lymphocytes (Bld) [#/Vol] 2.20 10*3/uL Normal 1.00-4.00 [facility] Comment on above: Order Comment: Speci men Type: BLOOD SPECIMEN [facility] Facility: [facility] Address: [address] [address] Performed By: #### 2 4321-2 #### [facility] CLIA [id number] [address] [place] [address] [place] Lymphocytes/100 WBC (Bld) 26.4 % Normal [facility] Comment on above: Order Comment: Speci men Type: BLOOD SPECIMEN [facility] Facility: [facility] Address: [address] Performed By: #### 2 4321-2 #### [facility] CLIA [id number] [address] [place] [address] [place] MCH (RBC) [Entitic mass] 28.0 pg Normal 26.0-34.0 [facility] Comment on above: Order Comment: Speci men Type: BLOOD SPECIMEN [facility] Facility: [facility] Address: [address] Performed By: #### 2 4321-2 #### [facility] CLIA [id number] [address] [place] [address] [place] MCHC (RBC) [Mass/Vol] 32.1 g/dL Normal 30.5-36.0 [facility] Comment on above: Order Comment: Speci men Type: BLOOD SPECIMEN [facility] Facility: [facility] Address: [address] Performed By: #### 2 4321-2 #### [facility] CLIA [id number] [address] [place] [address] [place] MCV (RBC) [Entitic vol] 87.1 fL Normal 80.0-100.0 [facility] Comment on above: Order Comment: Speci men Type: BLOOD SPECIMEN [facility] Facility: [facility] Address: [address] [place] [address] Performed By: #### 2 4321-2 #### [facility] CLIA [id number] [address] [place] [address] [place] Monocytes (Bld) [#/Vol] 0.74 10*3/uL Normal <0.87 [facility] Comment on above: Order Comment: Speci men Type: BLOOD SPECIMEN [facility] Facility: [facility] Address: [address] [place] [address] Performed By: #### 2 4321-2 #### [facility] CLIA [id number] [address] [place] [address] [place] Monocytes/100 WBC (Bld) 8.9 % Normal [facility] Comment on above: Order Comment: Speci men Type: BLOOD SPECIMEN [facility] Facility[facility] Address: [address] [place], [place] [address] Performed By: #### 2 4321-2 #### [facility] CLIA [id number] [address] [place] [address] [place] Neutrophils (Bld) [#/Vol] 5.29 10*3/uL Normal 1.45-7.50 [facility] Comment on above: Order Comment: Speci men Type: BLOOD SPECIMEN [facility] Facility: [facility] Address: [address] [place], [place] [address] Performed By: #### 2 4321-2 #### [facility] CLIA [id number] [address] [place] [address] [place] Neutrophils/100 WBC (Bld) 63.5 % Normal [facility] Comment on above: Order Comment: Speci men Type: BLOOD SPECIMEN [facility] Facility: [facility] Address: [address] [place] [address] Performed By: #### 2 4321-2 #### [facility] CLIA [id number] [address] [place] [address] [place] Nucleated RBC (Bld) [#/Vol] 10*3/uL Normal <0.01 [facility] Comment on above: Order Comment: Speci men Type: BLOOD SPECIMEN [facility] Facility: [facility] Address: [address] Performed By: #### 2 4321-2 #### [facility] CLIA [id number] [address] [place] [address] [place] Nucleated RBC/100 WBC (Bld) [Ratio] 0.0 /100 WBC Normal [facility] Comment on above: Order Comment: Speci men Type: BLOOD SPECIMEN [facility] Facility[facility] Address: [address] [place], [place] [address] Performed By: #### 2 4321-2 #### [facility] CLIA [id number] [address] [place] [address] [place] Platelet mean volume (Bld) [Entitic vol] 10.3 fL Normal 9.0-12.7 [facility] Comment on above: Order Comment: Speci men Type: BLOOD SPECIMEN [facility] Facility: [facility] Address: [address] [place] [address] Performed By: #### 2 4321-2 #### [facility] CLIA [id number] [address] [place] [address] [place] Platelets (Bld) [#/Vol] 295 10*3/uL Normal 150-400 [facility] Comment on above: Order Comment: Speci men Type: BLOOD SPECIMEN [facility] Facility: [facility] Address: [address] [place] [address] Performed By: #### 2 4321-2 #### [facility] CLIA [id number] [address] [place] [address] OF [place] RBC (Bld) [#/Vol] 5.29 10*6/uL Normal 4.20-6.00 [facility] Comment on above: Order Comment: Speci men Type: BLOOD SPECIMEN [facility] Facility: [facility] Address: [address] [place] [address] Performed By: #### 2 4321-2 #### [facility] CLIA [id number] [address] [place] [address] OF [place] WBC (Bld) [#/Vol] 8.33 10*3/uL Normal 3.70-11.00 [facility] Comment on above: Order Comment: Speci men Type: BLOOD SPECIMEN [facility] Facility: [facility] Address: [address] [place] [address] Performed By: #### 2 4321-2 #### [facility] CLIA [id number] [address] [place] [address] OF [facility] MILANOVon 05-09-2022 CNOV Office Visit (UROLMN ) TARAS HAYWARD ([id number]) 1970 M Date Time Provider Department 05/09/22 1:00 PM HARSH COFFEY During your visit today, we recorded the following information about you: Pulse Blood pressure Weight Height 108/minute 130/88 161 kg 1.905 m Aislinn Mendoza MA 05/09/2022 4:29 PM Addendum LORRAINE Patient was assigned the Dr. Coffey patient instruction module from the [employer] platform. Patient was provided instructions on how to access [employer]. The patient was instructed to call the provider?s office with any questions. Patient states understanding and has the provider?s office number/contact information via [employer] [place]. MARTÍNEZ Whitlock MD 05/09/2022 4:29 PM Signed [...] based on size, location, hounsfield units and qpkz-df-haygu distance: 2% 3. Ureteroscopy - risks of [...] Harsh Coffey MD Director, Surgical Stone Disease [facility] [place], [facility] Pager [phone] 05/09/2022 Referring Provider: KONRAD LLILY [[id number]] Allergies As of Date: 05/09/2022 (No Known [...] [R82.90] Order(s):CBC + DIFF [SQCBCDIF] Order #: [id number] FUTURE COMP METABOLIC PANEL [SQCMP] Order #: [id number] FUTURE PTH INTACT BLD [SQPTHI] Order #: [id number] FUTURE VITAMIN D 25 HYDROXY [SQVITD] Order #: [id number] FUTURE URIC ACID BLOOD [SQURIC] Order #: [id number] FUTURE IR NEPHROSTOMY TUBE PLACE [] Order #: [id number] REFER TO P[facility] - [facility] [[id number]] Order #: [id number]: 1 FUTURE CONFIRM BLOOD TYPE [SQCONABO] Order #: [id number] FUTURE TYPE AND SCREEN,30 DAY [NEAPZK51] Order #: [id number] FUTURE URINE CULTURE [SQURCUL] Order #: [id number]. #:[id number] Prescriptions as of 05/09/2022 - azithromycin (ZITHROMAX) [...] afterwards, # 2 tab(s), Refills(s) 0, Pharmacy: [facility]/pharmacy #[id number] Start Date: 08/22/19 Status: Ordered - nystatin-triamcinolone (MYCOLOG II (more content not included)... Normal [facility] CONFIRM BLOOD TYPEon 022 ABO O [facility] Rh Nom (Bld) Positive [facility] ABO O Normal [facility] Comment on above: Order Comment: Speci men Type: BLOOD SPECIMENOrdering Facility: [facility] Address: [address] [place] [address] Performed By: #### C ONABO ####CC MAIN BLOOD BANKCLIA [id number] [address] OF [facility] Rh Nom (Bld) Positive Normal [facility] Comment on above: Order Comment: Speci men Type: BLOOD SPECIMENOrdering Facility: [facility] Address: [address] [place] [address] Performed By: #### C ONABO ####CC MAIN BLOOD BANKCLIA [id number] [place] [address] [facility] Comprehensive metabolic 2000 panelon 05-09-2022 Albumin [Mass/Vol] 4.2 g/dL 3.9 - 4.9 g/dL [facility] ALP [Catalytic activity/Vol] 87 U/L 38 - 113 U/L [facility] ALT [Catalytic activity/Vol] 17 U/L 10 - 54 U/L [facility] Anion gap [Moles/Vol] 12 mmol/L 9 - 18 mmol/L [facility] AST [Catalytic activity/Vol] 15 U/L 14 - 40 U/L [facility] Bilirubin [Mass/Vol] 0.8 mg/dL 0.2 - 1 .3 mg/dL [facility] Calcium [Mass/Vol] 9.3 mg/dL 8.5 - 10. 2 mg/dL [facility] Chloride [Moles/Vol] 105 mmol/L 97 - 10 5 mmol/L [facility] CO2 [Moles/Vol] 24 mmol/L 22 - 30 mmol/L [facility] Creatinine [Mass/Vol] 0.98 mg/dL 0.73 - 1.22 mg/dL [facility] Estimated Glomerular Filtration Rate 95 mL/min/1.73m >=60 mL/min/1.7 3m [facility] Glucose [Mass/Vol] 107 mg/dL High 74 - 99 mg/dL [facility] Potassium [Moles/Vol] 4.8 mmol/L 3.7 - 5.1 mmol/L [facility] Protein [Mass/Vol] 7.2 g/dL 6.3 - 8.0 g/dL [facility] Sodium [Moles/Vol] 141 mmol/L 136 - 144 mmol/L [facility] Urea nitrogen [Mass/Vol] 17 mg/dL 9 - 24 mg/dL [facility] Albumin [Mass/Vol] 4.2 g/dL Normal 3.9-4.9 [facility] Comment on above: Order Comment: Speci men Type: BLOOD SPECIMEN [facility] Address: [address] [address] Performed By: #### 2 4321-2 #### [facility] CLIA [id number] [address] [place] [address] [place] ALP [Catalytic activity/Vol] 87 U/L Normal 38-113 [facility] Comment on above: Order Comment: Speci men Type: BLOOD SPECIMEN [facility] Address: [address] Performed By: #### 2 4321-2 #### [facility] CLIA [id number] [address] [place] [address] [place] ALT [Catalytic activity/Vol] 17 U/L Normal 10-54 [facility] Comment on above: Order Comment: Speci men Type: BLOOD SPECIMEN [facility] Address: [address] Performed By: #### 2 4321-2 #### [facility] CLIA [id number] [address] [place] [address] [place] Anion gap [Moles/Vol] 12 mmol/L Normal 9-18 [facility] Comment on above: Order Comment: Speci men Type: BLOOD SPECIMEN [facility] Address: [address] [place], [place] [address] Performed By: #### 2 4321-2 #### [facility] CLIA [id number] [address] [place] [address] [place] AST [Catalytic activity/Vol] 15 U/L Normal 14-40 [facility] Comment on above: Order Comment: Speci men Type: BLOOD SPECIMEN [facility] Address: [address] [place], [place] [address] Performed By: #### 2 4321-2 #### [facility] CLIA [id number] [address] [place] [address] [place] Bilirubin [Mass/Vol] 0.8 mg/dL Normal 0.2-1.3 [facility] Comment on above: Order Comment: Speci men Type: BLOOD SPECIMEN [facility] Address: [address] [place], [place] [address] Performed By: #### 2 4321-2 #### [facility] CLIA [id number] [address] [place] [address] [place] Calcium [Mass/Vol] 9.3 mg/dL Normal 8.5-10.2 [facility] Comment on above: Order Comment: Speci men Type: BLOOD SPECIMEN [facility] Address: [address] [place] [address] Performed By: #### 2 4321-2 #### [facility] CLIA [id number] [address] [place] [address] [place] Chloride [Moles/Vol] 105 mmol/L Normal 97-105 [facility] Comment on above: Order Comment: Speci men Type: BLOOD SPECIMEN [facility] Address: [address] [address] Performed By: #### 2 4321-2 #### [facility] CLIA [id number] [address] [place] [address] [place] CO2 [Moles/Vol] 24 mmol/L Normal 22-30 [facility] Comment on above: Order Comment: Speci men Type: BLOOD SPECIMEN [facility] Address: [address] [address] Performed By: #### 2 4321-2 #### [facility] CLIA [id number] [address] [place] [address] [place] Creatinine [Mass/Vol] 0.98 mg/dL Normal 0.73-1.22 [facility] Comment on above: Order Comment: Speci men Type: BLOOD SPECIMEN [facility] Address: [address] [address] Performed By: #### 2 4321-2 #### [facility] CLIA [id number] [address] [place] [address] [place] ESTIMATED GLOMERULAR FILTRATION RATE 95 mL/min/1.73m??? Normal >=60 [facility] Comment on above: Order Comment: Speci men Type: BLOOD SPECIMEN [facility] Address: [address] Result Comment: Paloma mated Glomerular Filtration [...] GFR. Performed By: #### 2 4321-2 #### [facility] CLIA [id number] [address] [place] [address] [place] Glucose [Mass/Vol] 107 mg/dL High 74-99 [facility] Comment on above: Order Comment: Specbijal souza Type: BLOOD SPECIMEN [facility] Address: [address] [place] [address] Result Comment: The [place] [employer] (ADA) provides guidance for cutoff [...] Standards of Medical Care in Diabetes 2016, [place] [employer]. Diabetes Care. 2016.39(Suppl 1). Performed By: #### 2 4321-2 #### [facility] CLIA [id number] [address] [place] [address] [place] Potassium [Moles/Vol] 4.8 mmol/L Normal 3.7-5.1 [facility] Comment on above: Order Comment: Daysi men Type: BLOOD SPECIMEN [facility] Address: [address] [place] [address] Performed By: #### 2 4321-2 #### [facility] CLIA [id number] [address] [place] [address] [place] Protein [Mass/Vol] 7.2 g/dL Normal 6.3-8.0 [facility] Comment on above: Order Comment: Daysi souza Type: BLOOD SPECIMEN [facility] Address: [address] [place] [address] Performed By: #### 2 4321-2 #### [facility] CLIA [id number] [address] [place] [address] [place] Sodium [Moles/Vol] 141 mmol/L Normal 136-144 [facility] Comment on above: Order Comment: Speci men Type: BLOOD SPECIMEN [facility] Address: [address] [place] [address] Performed By: #### 2 4321-2 #### [facility] CLIA [id number] [address] [place] [address] [place] Urea nitrogen [Mass/Vol] 17 mg/dL Normal 9-24 [facility] Comment on above: Order Comment: Speci men Type: BLOOD SPECIMEN [facility] Address: [address] [place] [address] Performed By: #### 2 4321-2 #### [facility] CLIA [id number] [address] [place] [address] [place] PTH INTACT BLDon 05-09-2022 Parathyrin.intact [Mass/Vol] 80 pg/mL High 15 - 65 pg/mL [facility] PTH-Intact SerPl-mCncon - Parathyrin.intact [Mass/Vol] 80 pg/mL High 15-65 [facility] Comment on above: Order Comment: Speci men Type: BLOOD SPECIMEN [facility] Address: [address] [place], [place] [address] Performed By: #### 2 4321-2 #### [facility] CLIA [id number] [address] [place] [address] [place] TYPE AND SCREEN,30 DAYon ABO O [facility] HIstorical Ab Scr Status Negative [facility] Rh Nom (Bld) Positive [facility] ABO O Normal [facility] Comment on above: Order Comment: Speci men Type: BLOOD SPECIMENOrdering Facility: [facility] Address: [address] [place], [place] [address] Performed By: #### T [id number] ####[facility] BLOOD BANKCLIA [id number] [place] [address] [place] HISTORICAL AB SCR STATUS Negative Normal [facility] Comment on above: Order Comment: Speci men Type: BLOOD SPECIMENOrdering Facility: [facility] Address: [address] [place] [address] Performed By: #### T SCR30 ####[facility] BLOOD BANKIA [id number] [place] [address] [place] Rh Nom (Bld) Positive Normal [facility] Comment on above: Order Comment: Speci men Type: BLOOD SPECIMENOrdering Facility: [facility] Address: [address] [place] [address] Performed By: #### T SCR30 ####[facility] [id number] [place] [address] [place] URIC ACID BLOODon 05-09-2022 Urate [Mass/Vol] 5.6 mg/dL 4.0 - 8.1 mg/dL [facility] URINALYSIS, REFLEX MICROSCOP ICon 05-09-2022 Bacteria LM.HPF (Urine sed) [#/Area] Many Abnormal None Seen [facility] Comment on above: Order Comment: Speci men Type: URINE SPECIMENOrdering Facility: [facility] Address: [address] [place] [address] Performed By: #### L [id number] ####[facility] LABCLIA [id number] [place] [address] [place] Bilirubin Ql (U) Negative Normal Negative [facility] Comment on above: Order Comment: Speci men Type: URINE SPECIMENOrdering Facility: [facility] Address: [address] [place], [place] [address] Performed By: #### L [id number] ####[facility] LABCLIA [id number] [place] [address] [place] Clarity (Unsp spec) Cloudy Abnormal Clear [facility] Comment on above: Order Comment: Speci men Type: URINE SPECIMENOrdering Facility: [facility] Address: [address] Performed By: #### L [id number] ####[facility] LABCLIA [id number] [place] [address] [place] [facility] Color (U) Hodgeman Abnormal Yellow [facility] Comment on above: Order Comment: Speci men Type: URINE SPECIMENOrdering Facility: [facility] Address: [address] Performed By: #### L [id number] ####[facility] LABCLIA [id number] [address] STATES OF [facility] Glucose Test strip (U) [Mass/Vol] Negative Normal Negative [facility] Comment on above: Order Comment: Speci men Type: URINE SPECIMENOrdering Facility: [facility] Address: [address] [place], [place] [address] Performed By: #### L [id number] ####[facility] LABCLIA [id number] [place] [address] [place] Hemoglobin Ql (U) 3+ Abnormal Negative [facility] Comment on above: Order Comment: Speci men Type: URINE SPECIMENOrdering Facility: [facility] Address: [address] Performed By: #### L [id number] ####[facility] LABCLIA [id number] [place] [address] [place] Ketones Ql (U) Negative Normal Negative [facility] Comment on above: Order Comment: Speci men Type: URINE SPECIMENOrdering Facility: [facility] Address: [address] Performed By: #### L [id number] ####[facility] LABCLIA [id number] [address] [place] Leukocyte esterase Test strip Ql (U) 500 Katrina/mL Abnormal Negative [facility] Comment on above: Order Comment: Speci men Type: URINE SPECIMENOrdering Facility: [facility] Address: [address] [place] [address] Performed By: #### L [id number] ####[facility] LABCLIA [id number] [place] [address] [place] Nitrite Ql (U) Negative Normal Negative [facility] Comment on above: Order Comment: Speci men Type: URINE SPECIMENOrdering Facility: [facility] Address: [address] [place] [address] Performed By: #### L [id number] ####[facility] LABCLIA [id number] [place] [address] [place] pH (U) 6.0 [pH] Normal 5.0-8.0 [facility] Comment on above: Order Comment: Speci men Type: URINE SPECIMENOrdering Facility: [facility] Address: [address] [place], [place] [address] Performed By: #### L [id number] ####[facility] LABCLIA [id number] [address] STATES [facility] Protein (U) [Mass/Vol] 2+ Abnormal Negative Cl [facility] Comment on above: Order Comment: Speci men Type: URINE SPECIMENOrdering Facility: [facility] Address: [address] [place], [place] [address] Performed By: #### L [id number] ####[facility] LABCLIA [id number] [place] [address] [place] RBC LM.HPF (Urine sed) [#/Area] /[HPF] Abnormal 0-3 /HPF [facility] Comment on above: Order Comment: Speci men Type: URINE SPECIMENOrdering Facility: [facility] Address: [address] [place], [place] [address] Performed By: #### L [id number] ####[facility] LABCLIA [id number] [place] [address] [place] Specific gravity (U) [Rel density] 1.019 Normal 1.005-1.03 0 [facility] Comment on above: Order Comment: Speci men Type: URINE SPECIMENOrdering Facility: [facility] Address: [address] [place] [address] Performed By: #### L [id number] ####[facility] LABCLIA [id number] [place] [address] [place] Urobilinogen Ql (U) Negative Normal Negative [facility] Comment on above: Order Comment: Speci men Type: URINE SPECIMENOrdering Facility: [facility] Address: [address] [place] [address] Performed By: #### L [id number] ####[facility] LABCLIA [id number] [place] [address] [place] WBC LM.HPF (Urine sed) [#/Area] /[HPF] Abnormal 0-5 /HPF [facility] Comment on above: Order Comment: Speci men Type: URINE SPECIMENOrdering Facility: [facility] Address: [address] [place] [address] Performed By: #### L [id number] ####[facility] LABCLIA [id number] [place] [address] [place] Urate SerPl-mCncon Urate [Mass/Vol] 5.6 mg/dL Normal 4.0-8.1 [facility] Comment on above: Order Comment: Speci men Type: BLOOD SPECIMEN [facility] Address: [address] [place] [address] Performed By: #### 2 4321-2 #### [facility] CLIA [id number] [address] [place] [address] [place] VITAMIN D 25 HYDROXYon 05-09 25-hydroxyvitamin D3 [Mass/Vol] 15.9 ng/mL Low 31.0 - 80.0 ng/mL [facility] XR KUB 1 VIEWon 04-12-2022 XR [...] INÉS WARREN Date: 2022-04-11 22:28 Normal [facility] CBC AUTO DIFFon 03-30-2022 BASO # 0.0 103/ul Normal 0.0-0.1 [facility] Comment on above: Performed By: #### I NFLUAB #### [facility] [address] [place] [address] Dr. Lissa Sage Basophils/100 WBC (Bld) 0.1 % Critically low 0.2-2.0 [facility] Comment on above: Performed By: #### I NFLUAB #### [facility] [address] [place] [address] Dr. Lissa Sage EO # 0.0 103/ul Normal 0.0-0.7 [facility] Comment on above: Performed By: #### I NFLUAB #### [facility] [address] [address] [address] Lissa Sage Eosinophils/100 WBC (Bld) 0.0 % Critically low 0.9-7.0 [facility] Comment on above: Performed By: #### I NFLUAB #### [facility] [address] [place] [address] Dr. Lissa Sage Erythrocyte distribution width (RBC) [Ratio] 14.2 % Normal 11.0-15.0 [facility] Comment on above: Performed By: #### I NFLUAB #### [facility] [address] [address] [address] Lissa Sage Hematocrit (Bld) [Volume fraction] 38.0 % Critically low 42.0-54.0 [facility] Comment on above: Performed By: #### I NFLUAB #### [facility] [address] [place] [address] Dr. Lissa Sage Hemoglobin (Bld) [Mass/Vol] 12.0 g/dL Critically low 14.0-18.0 [facility] Comment on above: Performed By: #### I NFLUAB #### [facility] [address] [place] [address] Dr. Lissa Sage IG # 0.09 10e3/ul Critically high 0.00-0.03 [facility] Comment on above: Performed By: #### I NFLUAB #### [facility] [address] [place] [address] Dr. Lissa Sage IG % 0.8 % Critically high 0.0-0.5 [facility] Comment on above: Performed By: #### I NFLUAB #### [facility] [address] [place] [address] Dr. Lissa Sage LYMPH # 0.9 103/ul Critically low 1.2-3.8 [facility] Comment on above: Performed By: #### I NFLUAB #### [facility] [address] [place] [address] Dr. Lissa Sage Lymphocytes/100 WBC (Bld) 7.2 % Critically low 20.5-60.0 [facility] Comment on above: Performed By: #### I NFLUAB #### [facility] [address] [place] [address] Dr. Lissa Sage MANUAL DIFF REQ NO Normal [facility] Comment on above: Performed By: #### I NFLUAB #### [facility] [address] [place] [address] Dr. Lissa Sage MCH (RBC) [Entitic mass] 28.4 pg Normal 25.9-34.0 [facility] Comment on above: Performed By: #### I NFLUAB #### [facility] [address] [address] [address] Lissa Sage MCHC (RBC) [Mass/Vol] 31.6 g/dL Normal 29.9-35.2 [facility] Comment on above: Performed By: #### I NFLUAB #### [facility] [address] [address] [address] Lissa Sage MCV (RBC) [Entitic vol] 89.8 fL Normal 80.0-94.0 [facility] Comment on above: Performed By: #### I NFLUAB #### [facility] [address] [address] [address] Lissa Sage MONO # 0.7 103/ul Normal 0.3-0.8 [facility] Comment on above: Performed By: #### I NFLUAB #### [facility] [address] [place] [address] Dr. Lissa Sage Monocytes/100 WBC (Bld) 5.6 % Normal 1.7-12.0 [facility] Comment on above: Performed By: #### I NFLUAB #### [facility] [address] [place] [address] Dr. Lissa Sage NEUT # 10.3 103/ul Critically high 1.4-6.5 [facility] Comment on above: Performed By: #### I NFLUAB #### [facility] [address] [address] [address] Lissa Sage Neutrophils/100 WBC (Bld) 86.3 % Critically high 43.0-75.0 [facility] Comment on above: Performed By: #### I NFLUAB #### [facility] [address] [address] [address] Lissa Sage Platelet mean volume (Bld) [Entitic vol] 10.1 fL Normal 9.5-13.5 [facility] Comment on above: Performed By: #### I NFLUAB #### [facility] [address] [address] [address] Lissa Sage PLT 198 103/ul Normal 150-450 [facility] Comment on above: Performed By: #### I NFLUAB #### [facility] [address] [address] [address] Lissa Sage RBC 4.23 106/ul Critically low 4.70-6.10 [facility] Comment on above: Performed By: #### I NFLUAB #### [facility] [address] [place] [address] Dr. Lissa Sage WBC 11.9 103/ul Critically high 4.0-11.0 [facility] Comment on above: Performed By: #### I NFLUAB #### [facility] [address] [place] [address] Dr. Lissa Sage CULTURE URINEon 03-30-2022 CULTURE [...] Trimethoprim/Sulfamethoxazo le <=20 S F Normal [facility] Comment on above: Performed By: #### I NFLUAB #### [facility] [address] [place] [address] Dr. Lissa Sage PROF CHEM 8 (BAS METB)on Anion gap [Moles/Vol] 7.7 mmol/L Normal [facility] Comment on above: Performed By: #### B MP #### [facility] [address] [place] [address] Dr. Lissa Sage Calcium [Mass/Vol] 8.6 mg/dL Normal 8.5-10.1 [facility] Comment on above: Performed By: #### B MP #### [facility] [address] [place] [address] Dr. Lissa Sage Chloride [Moles/Vol] 105 mmol/L Normal 98-107 [facility] Comment on above: Performed By: #### B MP #### [facility] [address] [address] [address] Lissa Sage CO2 [Moles/Vol] 26.9 mmol/L Normal 21.0-32.0 [facility] Comment on above: Performed By: #### B MP #### [facility] [address] [address] [address] Lissa Sage Creatinine [Mass/Vol] 1.07 mg/dL Normal 0.70-1.30 [facility] Comment on above: Performed By: #### B MP #### [facility] [address] [place] [address] Dr. Lissa Sage EGFR-AF TURKISH >60 Normal >=60 [facility] Comment on above: Performed By: #### B MP #### [facility] [address] [place] [address] Dr. Lissa Sage EGFR-NON AF TURKISH >60 Normal >=60 [facility] Comment on above: Performed By: #### B MP #### [facility] [address] [place] [address] Dr. Lissa Sage Glucose [Mass/Vol] 174 mg/dL Critically high 74-106 [facility] [facility] Comment on above: Performed By: #### B MP #### [facility] [address] [place] [address] Dr. Lissa Sage Potassium [Moles/Vol] 4.6 mmol/L Normal 3.5-5.1 [facility] Comment on above: Performed By: #### B MP #### [facility] [address] [address] [address] Lissa Sage Sodium [Moles/Vol] 135 mmol/L Critically low 136-145 Th [facility] Comment on above: Performed By: #### B MP #### [facility] [address] [place] [address] Dr. Lissa Sage Urea nitrogen [Mass/Vol] 17.0 mg/dL Normal 7.0-18.0 [facility] Comment on above: Performed By: #### B MP #### [facility] [address] [place] [address] Dr. Lissa Sage Urea nitrogen/Creatinine [Mass ratio] 15.9 mg/mg Normal [facility] Comment on above: Performed By: #### B MP #### [facility] [address] [place] [address] Dr. Lissa Sage CBC AUTO DIFFon 03-29-2022 BASO # 0.0 103/ul Normal 0.0-0.1 [facility] Comment on above: Performed By: #### L IPID, CMP, TSH #### [facility] [address] [place] [address] Dr. Lissa Sage Basophils/100 WBC (Bld) 0.2 % Normal 0.2-2.0 [facility] Comment on above: Performed By: #### L IPID, CMP, TSH #### [facility] [address] [place] [address] Dr. Lissa Sage EO # 0.0 103/ul Normal 0.0-0.7 [facility] Comment on above: Performed By: #### L IPID, CMP, TSH #### [facility] [address] [place] [address] Dr. Lissa Sage Eosinophils/100 WBC (Bld) 0.1 % Critically low 0.9-7.0 [facility] Comment on above: Performed By: #### L IPID, CMP, TSH #### [facility] [address] [place] [address] Dr. Lissa Sage Erythrocyte distribution width (RBC) [Ratio] 14.5 % Normal 11.0-15.0 [facility] Comment on above: Performed By: #### L IPID, CMP, TSH #### [facility] [address] [place] [address] Dr. Lissa Sage Hematocrit (Bld) [Volume fraction] 40.0 % Critically low 42.0-54.0 [facility] Comment on above: Performed By: #### L IPID, CMP, TSH #### [facility] [address] [address] [address] Lissa Sage Hemoglobin (Bld) [Mass/Vol] 12.6 g/dL Critically low 14.0-18.0 [facility] Comment on above: Performed By: #### L IPID, CMP, TSH #### [facility] [address] [place] [address] Dr. Lissa Sage IG # 0.09 10e3/ul Critically high 0.00-0.03 [facility] Comment on above: Performed By: #### L IPID, CMP, TSH #### [facility] [address] [place] [address] Dr. Lissa Sage IG % 0.6 % Critically high 0.0-0.5 [facility] Comment on above: Performed By: #### L IPID, CMP, TSH #### [facility] [address] [place] [address] Dr. Lissa Sage LYMPH # 1.5 103/ul Normal 1.2-3.8 [facility] Comment on above: Performed By: #### L IPID, CMP, TSH #### [facility] [address] [place] [address] Dr. Lissa Sage Lymphocytes/100 WBC (Bld) 11.0 % Critically low 20.5-60.0 [facility] Comment on above: Performed By: #### L IPID, CMP, TSH #### [facility] [address] [place] [address] Dr. Lissa Sage MANUAL DIFF REQ NO Normal [facility] Comment on above: Performed By: #### L IPID, CMP, TSH #### [facility] [address] [place] [address] Dr. Lissa Sage MCH (RBC) [Entitic mass] 28.3 pg Normal 25.9-34.0 [facility] Comment on above: Performed By: #### L IPID, CMP, TSH #### [facility] [address] [place] [address] Dr. Lissa Sage MCHC (RBC) [Mass/Vol] 31.5 g/dL Normal 29.9-35.2 [facility] Comment on above: Performed By: #### L IPID, CMP, TSH #### [facility] [address] [place] [address] Dr. Lissa Sage MCV (RBC) [Entitic vol] 89.7 fL Normal 80.0-94.0 [facility] Comment on above: Performed By: #### L IPID, CMP, TSH #### [facility] [address] [place] [address] Dr. Lissa Sage MONO # 1.1 103/ul Critically high 0.3-0.8 [facility] Comment on above: Performed By: #### L IPID, CMP, TSH #### [facility] [address] [place] [address] Dr. Lissa Sage Monocytes/100 WBC (Bld) 8.2 % Normal 1.7-12.0 [facility] Comment on above: Performed By: #### L IPID, CMP, TSH #### [facility] [address] [place] [address] Dr. Lissa Sage NEUT # 11.2 103/ul Critically high 1.4-6.5 [facility] Comment on above: Performed By: #### L IPID, CMP, TSH #### [facility] [address] [place] [address] Dr. Lissa Sage Neutrophils/100 WBC (Bld) 79.9 % Critically high 43.0-75.0 [facility] Comment on above: Performed By: #### L IPID, CMP, TSH #### [facility] [address] [place] [address] Dr. Lissa Sage Platelet mean volume (Bld) [Entitic vol] 10.0 fL Normal 9.5-13.5 [facility] Comment on above: Performed By: #### L IPID, CMP, TSH #### [facility] [address] [place] [address] Dr. Lissa Sage PLT 194 103/ul Normal 150-450 [facility] Comment on above: Performed By: #### L IPID, CMP, TSH #### [facility] [address] [address] [address] Lissa Sage RBC 4.46 106/ul Critically low 4.70-6.10 [facility] Comment on above: Performed By: #### L IPID, CMP, TSH #### [facility] [address] [address] [address] Lissa Sage WBC 14.0 103/ul Critically high 4.0-11.0 [facility] Comment on above: Performed By: #### L IPID, CMP, TSH #### [facility] [address] [place] [address] Dr. Lissa Sage POINT OF CARE GLUCOSEon 03-11 Glucose [Mass/Vol] 243 mg/dL Critically high 74-106 [facility] Comment on above: Performed By: #### L IPID, CMP, TSH #### [facility] [address] [place] [address] Dr. Lissa Sage Glucose [Mass/Vol] 132 mg/dL Critically high 74-106 [facility] Comment on above: Performed By: #### L IPID, CMP, TSH #### [facility] [address] [place] [address] Dr. Lissa Sage Glucose [Mass/Vol] 123 mg/dL Critically high -106 [facility] Comment on above: Performed By: #### L IPID, CMP, TSH #### [facility] [address] [place] [address] Dr. Lissa Sage PROF CHEM 8 (BAS METB)on Anion gap [Moles/Vol] 10.2 mmol/L Normal [facility] Comment on above: Performed By: #### L IPID, CMP, TSH #### [facility] [address] [place] [address] Dr. Lissa Sage Calcium [Mass/Vol] 7.9 mg/dL Critically low 8.5-10.1 [facility] Comment on above: Performed By: #### L IPID, CMP, TSH #### [facility] [address] [place] [address] Dr. Lissa Sage Chloride [Moles/Vol] 104 mmol/L Normal 98-107 [facility] Comment on above: Performed By: #### L IPID, CMP, TSH #### [facility] [address] [place] [address] Dr. Lissa Sage CO2 [Moles/Vol] 25.4 mmol/L Normal 21.0-32.0 [facility] Comment on above: Performed By: #### L IPID, CMP, TSH #### [facility] [address] [place] [address] Dr. Lissa Sage Creatinine [Mass/Vol] 1.44 mg/dL Critically high 0.70-1.30 [facility] Comment on above: Performed By: #### L IPID, CMP, TSH #### [facility] [address] [place] [address] Dr. Lissa Sage EGFR-AF TURKISH >60 Normal >=60 [facility] Comment on above: Performed By: #### L IPID, CMP, TSH #### [facility] [address] [place] [address] Dr. Lissa Sage EGFR-NON AF TURKISH 52 mL/min/1.73m2 Critically low >=60 [facility] Comment on above: Performed By: #### L IPID, CMP, TSH #### [facility] [address] [place] [address] Dr. Lissa Sage Glucose [Mass/Vol] 139 mg/dL Critically high 74-106 [facility] Comment on above: Performed By: #### L IPID, CMP, TSH #### [facility] [address] [place] [address] Dr. Lissa Sage Potassium [Moles/Vol] 4.6 mmol/L Normal 3.5-5.1 [facility] Comment on above: Performed By: #### L IPID, CMP, TSH #### [facility] [address] [place] [address] Dr. Lissa Sage Sodium [Moles/Vol] 135 mmol/L Critically low 136-145 Th [facility] Comment on above: Performed By: #### L IPID, CMP, TSH #### [facility] [address] [address] [address] Lissa Sage Urea nitrogen [Mass/Vol] 19.0 mg/dL Critically high 7.0-18.0 [facility] Comment on above: Performed By: #### L IPID, CMP, TSH #### [facility] [address] [address] [address] Lissa Sage Urea nitrogen/Creatinine [Mass ratio] 13.2 mg/mg Normal [facility] Comment on above: Performed By: #### L IPID, CMP, TSH #### [facility] [address] [address] [address] Lissa Sage XR KUB 1 VIEWon [...] INÉS WARREN Date: 2022-03-29 15:22 Normal [facility] AMYLASEon 03-28-2022 Amylase [Catalytic activity/Vol] 21 U/L Critically low 25-115 [facility] Comment on above: Performed By: #### I NFLUAB #### [facility] [address] [address] [address] Lissa Sage CBC AUTO DIFFon 03-28-2022 BASO # 0.0 103/ul Normal 0.0-0.1 [facility] Comment on above: Performed By: #### L IPID, CMP, TSH #### [facility] [address] [address] [address] Lissa Sage Basophils/100 WBC (Bld) 0.2 % Normal 0.2-2.0 [facility] Comment on above: Performed By: #### L IPID, CMP, TSH #### [facility] [address] [place] [address] Dr. Lissa Sage EO # 0.1 103/ul Normal 0.0-0.7 [facility] Comment on above: Performed By: #### L IPID, CMP, TSH #### [facility] [address] [place] [address] Dr. Lissa Sage Eosinophils/100 WBC (Bld) 0.8 % Critically low 0.9-7.0 [facility] Comment on above: Performed By: #### L IPID, CMP, TSH #### [facility] [address] [place] [address] Dr. Lissa Sage Erythrocyte distribution width (RBC) [Ratio] 14.2 % Normal 11.0-15.0 [facility] Comment on above: Performed By: #### L IPID, CMP, TSH #### [facility] [address] [place] [address] Dr. Lissa Sage Hematocrit (Bld) [Volume fraction] 46.8 % Normal 42.0-54.0 [facility] Comment on above: Performed By: #### L IPID, CMP, TSH #### [facility] [address] [place] [address] Dr. Lissa Sage Hemoglobin (Bld) [Mass/Vol] 14.6 g/dL Normal 14.0-18.0 [facility] Comment on above: Performed By: #### L IPID, CMP, TSH #### [facility] [address] [place] [address] Dr. Lissa Sage IG # 0.04 10e3/ul Critically high 0.00-0.03 [facility] Comment on above: Performed By: #### L IPID, CMP, TSH #### [facility] [address] [place] [address] Dr. Lissa Sage IG % 0.4 % Normal 0.0-0.5 [facility] Comment on above: Performed By: #### L IPID, CMP, TSH #### [facility] [address] [address] [address] Lissa Sage LYMPH # 1.6 103/ul Normal 1.2-3.8 [facility] Comment on above: Performed By: #### L IPID, CMP, TSH #### [facility] [address] [address] [address] Lissa Sage Lymphocytes/100 WBC (Bld) 17.6 % Critically low 20.5-60.0 [facility] Comment on above: Performed By: #### L IPID, CMP, TSH #### [facility] [address] [place] [address] Dr. Lissa Sage MANUAL DIFF REQ NO Normal [facility] Comment on above: Performed By: #### L IPID, CMP, TSH #### [facility] [address] [place] [address] Dr. Lissa Sage MCH (RBC) [Entitic mass] 28.0 pg Normal 25.9-34.0 [facility] Comment on above: Performed By: #### L IPID, CMP, TSH #### [facility] [address] [place] [address] Dr. Lissa Sage MCHC (RBC) [Mass/Vol] 31.2 g/dL Normal 29.9-35.2 [facility] Comment on above: Performed By: #### L IPID, CMP, TSH #### [facility] [address] [place] [address] Dr. Lissa Sage MCV (RBC) [Entitic vol] 89.7 fL Normal 80.0-94.0 [facility] Comment on above: Performed By: #### L IPID, CMP, TSH #### [facility] [address] [place] [address] Dr. Lissa Sage MONO # 0.3 103/ul Normal 0.3-0.8 [facility] Comment on above: Performed By: #### L IPID, CMP, TSH #### [facility] [address] [place] [address] Dr. Lissa Sage Monocytes/100 WBC (Bld) 3.1 % Normal 1.7-12.0 [facility] Comment on above: Performed By: #### L IPID, CMP, TSH #### [facility] [address] [place] [address] Dr. Lissa Sage NEUT # 7.2 103/ul Critically high 1.4-6.5 [facility] Comment on above: Performed By: #### L IPID, CMP, TSH #### [facility] [address] [place] [address] Dr. Lissa Sage Neutrophils/100 WBC (Bld) 77.9 % Critically high 43.0-75.0 [facility] Comment on above: Performed By: #### L IPID, CMP, TSH #### [facility] [address] [place] [address] Dr. Lissa Sage Platelet mean volume (Bld) [Entitic vol] 10.0 fL Normal 9.5-13.5 [facility] Comment on above: Performed By: #### L IPID, CMP, TSH #### [facility] [address] [place] [address] Dr. Lissa Sage PLT 248 103/ul Normal 150-450 [facility] Comment on above: Performed By: #### L IPID, CMP, TSH #### [facility] [address] [place] [address] Dr. Lissa Sage RBC 5.22 106/ul Normal 4.70-6.10 [facility] Comment on above: Performed By: #### L IPID, CMP, TSH #### [facility] [address] [place] [address] Dr. Lissa Sage WBC 9.3 103/ul Normal 4.0-11.0 [facility] Comment on above: Performed By: #### L IPID, CMP, TSH #### [facility] [address] [place] [address] ABD/PELVIS WO CONon [...] body habitus and exclusion from the scan [id number]. IMPRESSION: A 16 x 27 mm calculus [...] CHAPO TAYLOR Date: 2022-03-28 05:50 Normal [facility] Covid-19 PCR (CVDTB)on 03-11 SARS-CoV-2 (COVID-19) RNA JOHN+probe Ql (Unsp spec) Not detected Normal NOT DETECTED [facility] Comment on above: Result Comment: When diagnostic [...] for this test is supported by the [place] of [employer] and [employer] Service's declaration that [...] By: #### L IPID, CMP, TSH #### [facility] [address] [place] [address] Dr. Lissa Sage ER URINE PROFILEon 2 Bilirubin Ql (U) Negative Normal NEGATIVE [facility] Comment on above: Performed By: #### L IPID, CMP, TSH #### [facility] [address] [place] [address] Dr. Lissa Sage Clarity (U) CLEAR Normal CLEAR [facility] Comment on above: Performed By: #### L IPID, CMP, TSH #### [facility] [address] [place] [address] Dr. Lissa Sage Color (U) YELLOW Normal YELLOW [facility] Comment on above: Performed By: #### L IPID, CMP, TSH #### [facility] [address] [place] [address] Dr. Lissa Sage ERUAHD A micrscopic examina tion will be performed if indicated. Normal [facility] Comment on above: Performed By: #### L IPID, CMP, TSH #### [facility] [address] [place] [address] Dr. Lissa Sage Glucose Ql (U) Negative Normal NEGATIVE [facility] Comment on above: Performed By: #### L IPID, CMP, TSH #### [facility] [address] [address] [address] Lissa Sage Hemoglobin Ql (U) SMALL Abnormal NEGATIVE [facility] Comment on above: Performed By: #### L IPID, CMP, TSH #### [facility] [address] [address] [address] Lissa Sage Ketones Ql (U) Negative Normal NEGATIVE [facility] Comment on above: Performed By: #### L IPID, CMP, TSH #### [facility] [address] [address] [address] Lissa Sage LEUKOCYTES SMALL Abnormal NEGATIVE [facility] Comment on above: Performed By: #### L IPID, CMP, TSH #### [facility] [address] [address] [address] iLssa Sage Nitrite Ql (U) Positive Abnormal NEGATIVE [facility] Comment on above: Performed By: #### L IPID, CMP, TSH #### [facility] [address] [address] [address] Lissa Sage pH (U) 6.0 [pH] Normal 5-9 [facility] Comment on above: Performed By: #### L IPID, CMP, TSH #### [facility] [address] [address] [address] Lissa Sage SPEC GRAVITY >=1.030 Abnormal 1.005-<=1. 025 [facility] Comment on above: Performed By: #### L IPID, CMP, TSH #### [facility] [address] [address] [address] Lissa Sage UA PROTEIN TRACE Normal NEGATIVE/ TRACE [facility] Comment on above: Performed By: #### L IPID, CMP, TSH #### [facility] [address] [address] [address] Lissa Sage UR MICRO IND INDICATED Normal [facility] Comment on above: Performed By: #### L IPID, CMP, TSH #### [facility] [address] [place] [address] Dr. Lissa Sage Urobilinogen Qn (U) 1.0 {Gurpreet'U}/dL Normal 0.2 - 1. 0 [facility] Comment on above: Performed By: #### L IPID, CMP, TSH #### [facility] [address] [place] [address] Dr. Lissa Sage LIPASEon 03-28-2022 Lipase [Catalytic activity/Vol] 64.0 U/L Critically low 73.0-393.0 [facility] Comment on above: Performed By: #### I NFLUAB #### [facility] [address] [place] [address] Dr. Lissa Sage POINT OF CARE GLUCOSEon 03-11 Glucose [Mass/Vol] 114 mg/dL Critically high 74-106 [facility] Comment on above: Performed By: #### P OCGLUC #### [facility] [address] [place] [address] Dr. Lissa Sage Glucose [Mass/Vol] 189 mg/dL Critically high 74-106 [facility] Comment on above: Performed By: #### L IPPAM RAPP, TSH #### [facility] [address] [place] [address] Dr. Lissa Sage PROF 14(COMP METB)on 022 Albumin [Mass/Vol] 3.2 g/dL Critically low 3.4-5.0 [facility] Comment on above: Performed By: #### I NFLUAB #### [facility] [address] [place] [address] Dr. Lissa Sage Albumin/Globulin [Mass ratio] 0.8 {ratio} Normal [facility] Comment on above: Performed By: #### I NFLUAB #### [facility] [address] [place] [address] Dr. Lissa Sage ALP [Catalytic activity/Vol] 87 U/L Normal 46-116 [facility] Comment on above: Performed By: #### I NFLUAB #### [facility] [address] [place] [address] Dr. Lissa Sage ALT [Catalytic activity/Vol] 21 U/L Normal 16-63 [facility] Comment on above: Performed By: #### I NFLUAB #### [facility] [address] [place] [address] Dr. Lissa Sage Anion gap [Moles/Vol] 13.7 mmol/L Normal [facility] Comment on above: Performed By: #### I NFLUAB #### [facility] [address] [place] [address] Dr. Lissa Sage AST [Catalytic activity/Vol] 14 U/L Critically low 15-37 [facility] Comment on above: Performed By: #### I NFLUAB #### [facility] [address] [place] [address] Dr. Lissa Sage Bilirubin [Mass/Vol] 1.0 mg/dL Normal 0.2-1.0 [facility] Comment on above: Performed By: #### I NFLUAB #### [facility] [address] [place] [address] Dr. Lissa Sage Calcium [Mass/Vol] 8.3 mg/dL Critically low 8.5-10.1 [facility] Comment on above: Performed By: #### I NFLUAB #### [facility] [address] [place] [address] Dr. Lissa Sage Chloride [Moles/Vol] 104 mmol/L Normal 98-107 [facility] Comment on above: Performed By: #### I NFLUAB #### [facility] [address] [place] [address] Dr. Lissa Sage CO2 [Moles/Vol] 22.7 mmol/L Normal 21.0-32.0 [facility] Comment on above: Performed By: #### I NFLUAB #### [facility] [address] [place] [address] Dr. Lissa Sage Creatinine [Mass/Vol] 1.10 mg/dL Normal 0.70-1.30 [facility] Comment on above: Performed By: #### I NFLUAB #### [facility] [address] [place] [address] Dr. Lissa Sage EGFR-AF TURKISH >60 Normal >=60 [facility] Comment on above: Performed By: #### I NFLUAB #### [facility] [address] [place] [address] Dr. Lissa Sage EGFR-NON AF TURKISH >60 Normal >=60 [facility] Comment on above: Performed By: #### I NFLUAB #### [facility] [address] [place] [address] Dr. Lissa Sage Globulin (S) [Mass/Vol] 4.2 g/dL Normal [facility] Comment on above: Performed By: #### I NFLUAB #### [facility] [address] [place] [address] Dr. Lissa Sage Glucose [Mass/Vol] 148 mg/dL Critically high 74-106 [facility] Comment on above: Performed By: #### I NFLUAB #### [facility] [address] [place] [address] Dr. Lissa Sage Potassium [Moles/Vol] 4.4 mmol/L Normal 3.5-5.1 [facility] Comment on above: Performed By: #### I NFLUAB #### [facility] [address] [place] [address] Dr. Lissa Sage Protein [Mass/Vol] 7.4 g/dL Normal 6.4-8.2 [facility] Comment on above: Performed By: #### I NFLUAB #### [facility] [address] [place] [address] Dr. Lissa Sage Sodium [Moles/Vol] 136 mmol/L Normal 136-145 [facility] Comment on above: Performed By: #### I NFLUAB #### [facility] [address] [place] [address] Dr. Lissa Sage Urea nitrogen [Mass/Vol] 17.0 mg/dL Normal 7.0-18.0 [facility] Comment on above: Performed By: #### I NFLUAB #### [facility] [address] [place] [address] Dr. Lissa Sage Urea nitrogen/Creatinine [Mass ratio] 15.5 mg/mg Normal [facility] Comment on above: Performed By: #### I NFLUAB #### [facility] [address] [place] [address] Dr. Lissa Sage URINE MICROSCOPIC ONLYon BACTERIA SMALL Abnormal NONE SEEN [facility] Comment on above: Performed By: #### L IPID, CMP, TSH #### [facility] [address] [place] [address] Dr. Lissa Sage Bacteria identified Cx Nom (U) INDICATED Normal [facility] Comment on above: Performed By: #### L IPID, CMP, TSH #### [facility] [address] [place] [address] Dr. Lissa Sage CAST NONE SEEN Normal NONE SEEN [facility] Comment on above: Performed By: #### L IPID, CMP, TSH #### [facility] [address] [place] [address] Dr. Lissa Sage Crystals LM Nom (Urine sed) NONE SEEN Normal NONE SEEN [facility] Comment on above: Performed By: #### L IPID, CMP, TSH #### [facility] [address] [place] [address] Dr. Lissa Sage Epithelial cells LM Ql (Urine sed) FEW Abnormal NONE SEEN /RARE [facility] Comment on above: Performed By: #### L IPID, CMP, TSH #### [facility] [address] [place] [address] Dr. Lissa Sage MUCOUS NONE SEEN Normal NONE SEEN The [facility] Comment on above: Performed By: #### L IPID, CMP, TSH #### [facility] [address] [place] [address] Dr. Lissa Sage RBC 5-10 Abnormal 0-2 [facility] Comment on above: Performed By: #### L IPID, CMP, TSH #### [facility] [address] [place] [address] Dr. Lissa Sage WBC 10-20 Abnormal NONE SEEN [facility] Comment on above: Performed By: #### L IPID, CMP, TSH #### [facility] [address] [place] [address] Dr. Lissa Sage CBC AUTO DIFFon 01-27-2022 BASO # 0.0 103/ul Normal 0.0-0.1 [facility] Comment on above: Performed By: #### L IPID, CMP, TSH #### [facility] [address] [place] [address] Dr. Lissa Sage Basophils/100 WBC (Bld) 0.3 % Normal 0.2-2.0 [facility] Comment on above: Performed By: #### L IPID, CMP, TSH #### [facility] [address] [place] [address] Dr. Lissa Sage EO # 0.1 103/ul Normal 0.0-0.7 [facility] Comment on above: Performed By: #### L IPID, CMP, TSH #### [facility] [address] [place] [address] Dr. Lissa Sage Eosinophils/100 WBC (Bld) 1.1 % Normal 0.9-7.0 [facility] Comment on above: Performed By: #### L IPID, CMP, TSH #### [facility] [address] [place] [address] Dr. Lissa Sage Erythrocyte distribution width (RBC) [Ratio] 13.4 % Normal 11.0-15.0 [facility] Comment on above: Performed By: #### L IPID, CMP, TSH #### [facility] [address] [place] [address] Dr. Lissa Sage Hematocrit (Bld) [Volume fraction] 44.9 % Normal 42.0-54.0 [facility] Comment on above: Performed By: #### L IPID, CMP, TSH #### [facility] [address] [place] [address] Dr. Lissa Sage Hemoglobin (Bld) [Mass/Vol] 14.2 g/dL Normal 14.0-18.0 [facility] Comment on above: Performed By: #### L IPID, CMP, TSH #### [facility] [address] [place] [address] Dr. Lissa Sage IG # 0.02 10e3/ul Normal 0.00-0.03 [facility] Comment on above: Performed By: #### L IPID, CMP, TSH #### [facility] [address] [place] [address] Dr. Lissa Sage IG % 0.3 % Normal 0.0-0.5 [facility] Comment on above: Performed By: #### L IPID, CMP, TSH #### [facility] [address] [place] [address] Dr. Lissa Sage LYMPH # 2.8 103/ul Normal 1.2-3.8 [facility] Comment on above: Performed By: #### L IPID, CMP, TSH #### [facility] [address] [place] [address] Dr. Lissa Sage Lymphocytes/100 WBC (Bld) 37.4 % Normal 20.5-60.0 [facility] Comment on above: Performed By: #### L IPID, CMP, TSH #### [facility] [address] [place] [address] Dr. Lissa Sage MANUAL DIFF REQ NO Normal [facility] Comment on above: Performed By: #### L IPID, CMP, TSH #### [facility] [address] [place] [address] Dr. Lissa Sage MCH (RBC) [Entitic mass] 27.8 pg Normal 25.9-34.0 [facility] Comment on above: Performed By: #### L IPID, CMP, TSH #### [facility] [address] [place] [address] Dr. Lissa Sage MCHC (RBC) [Mass/Vol] 31.6 g/dL Normal 29.9-35.2 [facility] Comment on above: Performed By: #### L IPID, CMP, TSH #### [facility] [address] [place] [address] Dr. Lissa Sage MCV (RBC) [Entitic vol] 87.9 fL Normal 80.0-94.0 [facility] Comment on above: Performed By: #### L IPID, CMP, TSH #### [facility] [address] [address] [address] Lissa Sage MONO # 0.5 103/ul Normal 0.3-0.8 [facility] Comment on above: Performed By: #### L IPID, CMP, TSH #### [facility] [address] [place] [address] Dr. Lissa Sage Monocytes/100 WBC (Bld) 6.6 % Normal 1.7-12.0 [facility] Comment on above: Performed By: #### L IPID, CMP, TSH #### [facility] [address] [place] [address] Dr. Lissa Sage NEUT # 4.1 103/ul Normal 1.4-6.5 [facility] Comment on above: Performed By: #### L IPID, CMP, TSH #### [facility] [address] [place] [address] Dr. Lissa Sage Neutrophils/100 WBC (Bld) 54.3 % Normal 43.0-75.0 [facility] Comment on above: Performed By: #### L IPID, CMP, TSH #### [facility] [address] [place] [address] Dr. Lissa Saeg Platelet mean volume (Bld) [Entitic vol] 9.3 fL Critically low 9.5-13.5 [facility] Comment on above: Performed By: #### L IPID, CMP, TSH #### [facility] [address] [place] [address] Dr. Lissa Sage PLT 286 103/ul Normal 150-450 [facility] Comment on above: Performed By: #### L IPID, CMP, TSH #### [facility] [address] [place] [address] Dr. Lissa Sage RBC 5.11 106/ul Normal 4.70-6.10 [facility] Comment on above: Performed By: #### L IPID, CMP, TSH #### [facility] [address] [place] [address] Dr. Lissa Sage WBC 7.5 103/ul Normal 4.0-11.0 [facility] Comment on above: Performed By: #### L IPID, CMP, TSH #### [facility] [address] [place] [address] Dr. Lissa Sage GLYCOHEMOGLOBIN A1Con 2021 ADA RECOMMENDATION SEE BELOW Normal [facility] Comment on above: Result Comment: ADA RECOMMENDED LIMIT 4.0 - 6.0 ADA THERAPEUTIC TARGET < 7.0 ACTION SUGGESTED > 7.0 Performed By: #### A 1C #### [facility] [address] [place] [address] Dr. Lissa Sage Glucose [Mass/Vol] 128 mg/dL Normal [facility] Comment on above: Performed By: #### A 1C #### [facility] [address] [place] [address] Dr. Lissa Sage HbA1c (Bld) [Mass fraction] 6.1 % Normal 4.5-6.2 [facility] Comment on above: Performed By: #### A 1C #### [facility] [address] [place] [address] Dr. Lissa Sage LIPID PROFILEon 01-27-2022 CHOL-HDL RATIO NORM SEE BELOW Normal [facility] Comment on above: Result Comment: 3.3 - 4.4 LOW RISK 4.4 - 7.1 AVERAGE RISK 7.1 - 11.0 MODERATE RISK >11.0 HIGH RISK Performed By: #### L IPID, CMP, TSH #### [facility] [address] [place] [address] Dr. Lissa Sage Cholesterol [Mass/Vol] 137 mg/dL Normal <=200 Th [facility] Comment on above: Performed By: #### L IPID, CMP, TSH #### [facility] [address] [address] [address] Lissa Sage Cholesterol in HDL [Mass/Vol] 41 mg/dL Normal 40-60 [facility] Comment on above: Performed By: #### L IPID, CMP, TSH #### [facility] [address] [place] [address] Dr. Lissa Sage Cholesterol in LDL [Mass/Vol] 70.4 mg/dL Normal [facility] Comment on above: Performed By: #### L IPID, CMP, TSH #### [facility] [address] [address] [address] Lissa Sage Cholesterol.total/Chol esterol in HDL [Mass ratio] 3.3 {ratio} Normal [facility] Comment on above: Performed By: #### L IPID, CMP, TSH #### [facility] [address] [address] [address] Lissa Sage HDL NORMAL > or = 60 mg/dl - LO W CARDIOVASCULAR RISK <40 mg/dl - HIGH CARDIOVASCULAR RISK Normal [facility] Comment on above: Performed By: #### L IPID, CMP, TSH #### [facility] [address] [address] [address] Lissa Sage LDL CALC NORMAL SEE BELOW Normal [facility] Comment on above: Result Comment: <100 mg/dl OPTIMAL 100 - 129 mg/dl NEAR OR ABOVE OPTIMAL 130 - 159 mg/dl BORDERLINE HIGH 160 - 189 mg/dl HIGH >190 mg/dl VERY HIGH Performed By: #### L IPID, CMP, TSH #### [facility] [address] [address] [address] Lissa Sage Triglyceride [Mass/Vol] 128 mg/dL Normal <=150 [facility] Comment on above: Performed By: #### L IPID, CMP, TSH #### [facility] [address] [address] [address] Lissa Sage VLDL CALC 25.6 mg/dL Normal [facility] Comment on above: Performed By: #### L IPID, CMP, TSH #### [facility] [address] [address] [address] Lissa Sage PROF 14(COMP METB)on 022 Albumin [Mass/Vol] 3.5 g/dL Normal 3.4-5.0 [facility] Comment on above: Performed By: #### L IPID, CMP, TSH #### [facility] [address] [address] [address] Lissa Sage Albumin/Globulin [Mass ratio] 0.9 {ratio} Normal [facility] Comment on above: Performed By: #### L IPID, CMP, TSH #### [facility] [address] [address] [address] Lissa Sage ALP [Catalytic activity/Vol] 79 U/L Normal 46-116 [facility] Comment on above: Performed By: #### L IPID, CMP, TSH #### [facility] [address] [place] [address] Dr. Lissa Sage ALT [Catalytic activity/Vol] 28 U/L Normal 16-63 [facility] Comment on above: Performed By: #### L IPID, CMP, TSH #### [facility] [address] [place] [address] Dr. Lissa Sage Anion gap [Moles/Vol] 10.5 mmol/L Normal Th [facility] Comment on above: Performed By: #### L IPID, CMP, TSH #### [facility] [address] [place] [address] Dr. Lissa Sage AST [Catalytic activity/Vol] 20 U/L Normal 15-37 [facility] Comment on above: Performed By: #### L IPID, CMP, TSH #### [facility] [address] [place] [address] Dr. Lissa Sage Bilirubin [Mass/Vol] 0.7 mg/dL Normal 0.2-1.0 [facility] Comment on above: Performed By: #### L IPID, CMP, TSH #### [facility] [address] [place] [address] Dr. Lissa Sage Calcium [Mass/Vol] 8.6 mg/dL Normal 8.5-10.1 [facility] Comment on above: Performed By: #### L IPID, CMP, TSH #### [facility] [address] [place] [address] Dr. Lissa Sage Chloride [Moles/Vol] 101 mmol/L Normal 98-107 [facility] Comment on above: Performed By: #### L IPID, CMP, TSH #### [facility] [address] [place] [address] Dr. Lissa Sage CO2 [Moles/Vol] 28.6 mmol/L Normal 21.0-32.0 [facility] Comment on above: Performed By: #### L IPID, CMP, TSH #### [facility] [address] [address] [address] Lissa Sage Creatinine [Mass/Vol] 0.87 mg/dL Normal 0.70-1.30 [facility] Comment on above: Performed By: #### L IPID, CMP, TSH #### [facility] [address] [address] [address] Lissa Sage EGFR-AF TURKISH >60 Normal >=60 [facility] Comment on above: Performed By: #### L IPID, CMP, TSH #### [facility] [address] [address] [address] Lissa Sage EGFR-NON AF TURKISH >60 Normal >=60 [facility] Comment on above: Performed By: #### L IPID, CMP, TSH #### [facility] [address] [address] [address] Lissa Sage Globulin (S) [Mass/Vol] 3.9 g/dL Normal [facility] Comment on above: Performed By: #### L IPID, CMP, TSH #### [facility] [address] [address] [address] Lissa Sage Glucose [Mass/Vol] 115 mg/dL Critically high 74-106 [facility] Comment on above: Performed By: #### L IPID, CMP, TSH #### [facility] [address] [address] [address] Lissa Sage Potassium [Moles/Vol] 4.1 mmol/L Normal 3.5-5.1 [facility] Comment on above: Performed By: #### L IPID, CMP, TSH #### [facility] [address] [address] [address] Lissa Sage Protein [Mass/Vol] 7.4 g/dL Normal 6.4-8.2 [facility] Comment on above: Performed By: #### L IPID, CMP, TSH #### [facility] [address] [address] [address] Lissa Sage Sodium [Moles/Vol] 136 mmol/L Normal 136-145 [facility] Comment on above: Performed By: #### L IPID, CMP, TSH #### [facility] [address] [address] [address] Lissa Sage Urea nitrogen [Mass/Vol] 19.0 mg/dL Critically high 7.0-18.0 [facility] Comment on above: Performed By: #### L IPID, CMP, TSH #### [facility] [address] [address] [address] Lissa Sage Urea nitrogen/Creatinine [Mass ratio] 21.8 mg/mg Normal [facility] Comment on above: Performed By: #### L IPID, CMP, TSH #### [facility] [address] [address] [address] Lissa Sage TSHon 01-27-2022 TSH 1.650 uIU/mL Normal 0.358-3.74 0 [facility] Comment on above: Performed By: #### L IPID, CMP, TSH #### [facility] [address] [address] [address] Lissa Sage Vital Signs Date Time Vital Sign Value Performing Clinician Facility 07-02-2023 15:00-0500 Body height 185.42 cm Awais Seat 14A Other [employer] Other 07-02-2023 15:00-0500 Body mass index (BMI) [Ratio] 43.14 kg/m2 Awais Seat 14A Other [facility] Other 07-02-2023 15:00-0500 Body weight 148.33 kg Awais Seat 14A Other [employer] Other 07-02-2023 15:00-0500 Diastolic blood pressure 94 mm[Hg] Awais Seat 14A Other [employer] Other 07-02-2023 15:00-0500 Respiratory rate 12 /min Awais Garcia Other [facility] [employer] Other 07-02-2023 15:00-0500 Systolic blood pressure 157 mm[Hg] Awais Garcia Other [facility] [employer] Other 05-30-2023 14:10-0500 Body height 190.5 cm [facility] 05-30-2023 14:10-0500 Body mass index (BMI) [Ratio] 39.53 kg/m2 Marc Waggoner MD [facility] 05-30-2023 14:10-0500 Body weight 143.47 kg Marc Waggoner MD [facility] 05-30-2023 14:10-0500 Diastolic blood pressure 92 mm[Hg] Marc Waggoner MD [facility] 05-30-2023 14:10-0500 Heart rate 85 /min Marc Waggoner MD [facility] 05-30-2023 14:10-0500 Systolic blood pressure 146 mm[Hg] Marc Waggoner MD Work Phone: [facility] [employer] [facility] 02-20-2023 10:07-0400 Blood Pressure Location DONNA RIVERA [facility] 02-20-2023 10:07-0400 Diastolic blood pressure 78 mm[Hg] DONNA RIVERA [facility] 02-20-2023 10:07-0400 Heart rate 88 /min DONNA RIVERA [facility] 02-20-2023 10:07-0400 Systolic blood pressure 124 mm[Hg] DONNA MARQUISE [facility] 02-07-2023 13:45-0400 Body height 185.42 cm Awais Ball Other [employer] Other 02-07-2023 13:45-0400 Body mass index (BMI) [Ratio] 37.81 kg/m2 Awais Ball Other [employer] Other 02-07-2023 13:45-0400 Body weight 130 kg Awais Ball Other [employer] Other 02-07-2023 13:45-0400 Diastolic blood pressure 88 mm[Hg] Awais Ball Other [employer] Other 02-07-2023 13:45-0400 Respiratory rate 12 /min Awais Ball Other [employer] Other 02-07-2023 13:45-0400 Systolic blood pressure 131 mm[Hg] Awais Ball Other [employer] Other 01-24-2023 18:56-0400 Body temperature 97.8 [degF] PHYSICIAN NO [facility] 01-24-2023 18:56-0400 Diastolic blood pressure 82 mm[Hg] PHYSICIAN NO [facility] 01-24-2023 18:56-0400 Heart rate 91 /min PHYSICIAN NO [facility] 01-24-2023 18:56-0400 Respiratory rate 18 /min PHYSICIAN NO [facility] 01-24-2023 18:56-0400 SaO2% (BldA) [Mass fraction] 96 % PHYSICIAN NO [facility] 01-24-2023 18:56-0400 Systolic blood pressure 121 mm[Hg] PHYSICIAN NO [facility] 01-23-2023 11:42-0400 Body height 190.5 cm PHYSICIAN NO [facility] 01-21-2023 05:16-0400 Body weight 147.2 kg PHYSICIAN NO [facility] 01-09-2023 15:15-0400 Body temperature 98.3 [degF] PHYSICIAN NO [facility] 01-09-2023 15:15-0400 Diastolic blood pressure 86 mm[Hg] PHYSICIAN NO [facility] 01-09-2023 15:15-0400 Heart rate 82 /min PHYSICIAN NO [facility] 01-09-2023 15:15-0400 Respiratory rate 16 /min PHYSICIAN NO [facility] 01-09-2023 15:15-0400 SaO2% (BldA) [Mass fraction] 96 % PHYSICIAN NO [facility] 01-09-2023 15:15-0400 Systolic blood pressure 127 mm[Hg] PHYSICIAN NO [facility] 01-09-2023 12:06-0400 Body height 190.5 cm PHYSICIAN NO [facility] 01-09-2023 09:32-0400 Body height 190.5 cm PHYSICIAN NO [facility] 01-09-2023 09:32-0400 Body temperature 97.9 [degF] PHYSICIAN NO [facility] 01-09-2023 09:32-0400 Body weight 151.95 kg PHYSICIAN NO [facility] 01-09-2023 09:32-0400 Diastolic blood pressure 82 mm[Hg] PHYSICIAN NO [facility] 01-09-2023 09:32-0400 Heart rate 90 /min PHYSICIAN NO [facility] 01-09-2023 09:32-0400 Respiratory rate 22 /min PHYSICIAN NO [facility] 01-09-2023 09:32-0400 SaO2% (BldA) [Mass fraction] 97 % PHYSICIAN NO [facility] 01-09-2023 09:32-0400 Systolic blood pressure 132 mm[Hg] PHYSICIAN NO [facility] 01-07-2023 05:10-0400 Body weight 152.4 kg PHYSICIAN NO [facility] 08-31-2022 09:30-0400 Body height 185.42 cm Awais Ball Other [employer] Other 08-31-2022 09:30-0400 Body mass index (BMI) [Ratio] 46.2 kg/m2 Awais Ball Other [employer] Other 08-31-2022 09:30-0400 Body weight 158.85 kg Awais Ball Other [employer] Other 08-31-2022 09:30-0400 Diastolic blood pressure 86 mm[Hg] Awais Ball Other [employer] Other 08-31-2022 09:30-0400 Respiratory rate 12 /min Awais Ball Other [employer] Other 08-31-2022 09:30-0400 Systolic blood pressure 132 mm[Hg] Awais Ball Other [employer] Other 05-18-2022 13:44-0500 Body height 190.5 cm Pacc 2 Work Phone: [facility] 05-18-2022 13:44-0500 Body temperature 97.5 [degF] Pacc 2 Work Phone: [facility] 05-18-2022 13:44-0500 Body weight 160.39 kg Pacc 2 Work Phone: [facility] 05-18-2022 13:44-0500 Diastolic blood pressure 92 mm[Hg] Pacc 2 Work Phone: [facility] 05-18-2022 13:44-0500 Heart rate 109 /min Pacc 2 Work Phone: [facility] 05-18-2022 13:44-0500 SaO2% (BldA) [Mass fraction] 96 % Pacc 2 Work Phone: [facility] 05-18-2022 13:44-0500 Systolic blood pressure 148 mm[Hg] Pacc 2 Work Phone: [facility] 05-09-2022 13:06-0500 Body height 190.5 cm Harsh Coffey MD Work Phone: [facility] 05-09-2022 13:06-0500 Body weight 161.03 kg Harsh Coffey MD Work Phone: [facility] 05-09-2022 13:06-0500 Diastolic blood pressure 88 mm[Hg] Harsh Coffey MD Work Phone: [facility] 05-09-2022 13:06-0500 Heart rate 108 /min Harsh Coffey MD Work Phone: [facility] 05-09-2022 13:06-0500 Systolic blood pressure 130 mm[Hg] Harsh Coffey MD Work Phone: [facility] 04-12-2022 13:14-0400 Blood Pressure Location Konrad LILLY [facility] 04-12-2022 13:14-0400 Diastolic blood pressure 83 mm[Hg] Konrad LILLY [facility] 04-12-2022 13:14-0400 Heart rate 81 /min Konrad LILLY [facility] 04-12-2022 13:14-0400 Respiratory rate 16 /min Konrad LILLY [facility] 04-12-2022 13:14-0400 Systolic blood pressure 134 mm[Hg] Konrad LILLY [facility] Encounters Encounter Date Encounter Type Care Provider Facility Start: 10-23-2023 ambulatory DONNA Ann ty:ELIAZAR Ellison Start: 07-02-2023 End: 07-02-2023 ambulatory Awais Garcia Other [employer] Other Start: 07-02-2023 Encounter for genera l adult medical examination without abnormal findings Awais Garcia [facility] Start: 07-02-2023 Periodic preventive med est patient 40-64yrs Awais Garcia [facility] Start: 06-21-2023 End: 06-21-2023 ambulatory Awais Garcia Other [employer] Other Start: 06-21-2023 Encounter by computer link Awais Garcia [facility] Start: 06-19-2023 End: 06-19-2023 ambulatory Awais Garcia Other [employer] Other Start: 06-19-2023 Encounter by computer link Awais Garcia [facility] Start: 06-19-2023 Telephone encounter [facility] Start: 06-18-2023 Telephone encounter Megan duncan CMA [facility] Start: 06-16-2023 End: 06-16-2023 ambulatory Awais Garcia Other [employer] Other Start: 06-16-2023 Encounter by computer link Awais Garcia [facility] Start: 06-15-2023 End: 06-15-2023 Patient encounter procedure DO Awais Garcia Work Phone: [facility] [employer] [address] Start: 06-15-2023 End: 06-15-2023 ambulatory Kendal Sophie [employer] Other Start: 06-15-2023 Encounter by computer link Awais Garcia [facility] Start: 06-14-2023 End: 06-14-2023 ambulatory Awais Garcia Other [employer] Other Start: 06-14-2023 Encounter by computer link Awais Garcia [facility] Start: 06-08-2023 End: 06-08-2023 ambulatory Awais Garcia Other [employer] Other Start: 06-08-2023 Telephone encounter Awais HAMMOND G [facility] Start: 06-05-2023 End: 06-05-2023 ambulatory Awais Garcia Other [employer] Other Start: 06-05-2023 Encounter by computer link Awais Garcia [facility] Start: 05-30-2023 End: 05-30-2023 Office outpatient visit 15 minutes Marc Waggoner MD Work Phone: [facility] Comment on above: Sequelae, post-strok e (Primary Dx) Start: 05-21-2023 End: 05-21-2023 ambulatory Awais Garcia Other [employer] Other Start: 05-21-2023 Encounter by computer link Awais Garcia [facility] Start: 05-16-2023 ambulatory Konrad LILLY Facility :[facility] Start: 05-15-2023 End: 05-15-2023 ambulatory Awais Garcia Other [employer] Other Start: 05-15-2023 Encounter by computer link Awais Garcia [facility] Start: 05-14-2023 End: 05-14-2023 ambulatory Awais Garcia Other [employer] Other Start: 05-14-2023 Encounter by computer link Awais Garcia [facility] Start: 05-11-2023 Telephone encounter Davina Hawkins RN [facility] Start: 05-07-2023 End: 05-07-2023 ambulatory Awais Garcia Other [employer] Other Start: 05-07-2023 Encounter by computer link Awais Garcia [facility] Start: 04-09-2023 End: 04-09-2023 ambulatory Awais Garcia Other [employer] Other Start: 04-09-2023 Encounter by computer link Awais Garcia [facility] Start: 04-03-2023 End: 04-03-2023 ambulatory Awais Garcia Other [employer] Other Start: 04-03-2023 Encounter by computer link Awais Garcia [facility] Start: 03-29-2023 End: 03-29-2023 ambulatory Awais Garcia Other [employer] Other Start: 03-29-2023 Encounter by computer link Awais Garcia [facility] Start: 03-28-2023 End: 03-28-2023 ambulatory Awais Garcia Other [employer] Other Start: 03-28-2023 Encounter by computer link Awais Garcia [facility] Start: 03-26-2023 End: 03-26-2023 ambulatory Awais Garcia Other [employer] Other Start: 03-26-2023 Encounter by computer link Awais Garcia [facility] Start: 03-20-2023 End: 03-20-2023 ambulatory Awais Garcia Other [employer] Other Start: 03-20-2023 Encounter by computer link Awais Garcia [facility] Start: 03-02-2023 End: 03-02-2023 ambulatory Awais Garcia Other [employer] Other Start: 03-02-2023 Encounter by computer link Awais Garcia [facility] Start: 02-28-2023 End: 02-28-2023 ambulatory Awais Garcia Other [employer] Other Start: 02-28-2023 Encounter by computer link Awais Garcia [facility] Start: 02-23-2023 End: 02-23-2023 ambulatory Awais Garcia Other [employer] Other Start: 02-23-2023 Telephone encounter Awais Garcia [facility] Start: 02-21-2023 End: 02-21-2023 ambulatory Awais Garcia Other [employer] Other Start: 02-21-2023 Encounter by computer link Awais Jose [facility] Start: 02-20-2023 End: 02-20-2023 Lab Drop off DONNA RIVERA [facility] Start: 02-20-2023 End: 02-21-2023 ambulatory DONNA RIVERA Facility:[facility] Start: 02-20-2023 End: 02-20-2023 Patient encounter procedure DONAN RIVERA [facility] Start: 02-16-2023 End: 02-16-2023 ambulatory Awais Jose Other [employer] Other Start: 02-16-2023 Telephone encounter Awais Garcia [facility] Start: 02-15-2023 End: 02-15-2023 ambulatory Awais Garcia Other [employer] Other Start: 02-15-2023 Encounter by computer link Awais Jose [facility] Start: 02-07-2023 End: 02-07-2023 ambulatory Awais Jose Other [employer] Other Start: 02-07-2023 Office outpatient vi sit 25 minutes Awais Garcia [facility] Start: 01-09-2023 End: 01-09-2023 Emergency department patient visit Awais Garcia Facility:[facility] Start: 01-09-2023 End: 01-09-2023 Emergency department patient visit PHYSICIAN NO [facility] Work Phone: Start: 01-03-2023 End: 01-24-2023 Evaluation and management of inpatient Srinivas Patricia Facility:[facility] Start: 01-03-2023 End: 01-24-2023 Evaluation and management of inpatient PHYSICIAN NO [facility] Work Phone: Start: 12-14-2022 End: 12-14-2022 ambulatory Awais Garcia Other [employer] Other Start: 12-14-2022 Telephone encounter Awais Garcia [facility] Start: 12-13-2022 End: 12-13-2022 ambulatory Awais Garcia Other [employer] Other Start: 12-13-2022 Telephone encounter Awais Garcia FP [facility] Start: 12-05-2022 End: 12-05-2022 ambulatory Awais Garcia Other [employer] Other Start: 12-05-2022 Telephone encounter Awais HAMMOND [facility] Start: 12-01-2022 End: 12-01-2022 ambulatory Awais Garcia Other [employer] Other Start: 12-01-2022 Telephone encounter Awais HAMMOND [facility] Start: 11-28-2022 End: 11-29-2022 ambulatory Konrad LILLY Facility:[facility] Start: 11-28-2022 End: 11-28-2022 Patient encounter procedure Konrad LILLY [facility] Start: 09-18-2022 End: 09-18-2022 ambulatory Awais Garcia Other [employer] Other Start: 09-18-2022 Telephone encounter Awais HAMMOND [facility] Start: 08-31-2022 End: 08-31-2022 ambulatory Awais Garcia Other [employer] Other Start: 08-31-2022 Office outpatient vi sit 15 minutes Awais Garcia [facility] Start: 08-07-2022 Telephone encounter Awais Garcia FP [facility] Start: 08-07-2022 End: 08-08-[address] AWAIS GARCIA Facility:[facility] Start: 07-21-2022 End: 07-21-2022 ambulatory GLEN KNIGHT Facility:[facility] Start: 07-19-2022 End: 07-19-2022 Lab Drop off Konrad LILLY [facility] Start: 07-19-2022 End: 07-19-2022 Patient encounter procedure Konrad LILLY [facility] Start: 05-31-2022 End: 05-31-2022 Patient encounter procedure Konrad LILLY [facility] Start: 05-25-2022 End: 05-25-2022 Patient encounter procedure Konrad LILLY [facility] Start: 05-24-2022 End: 05-24-[address] WALT SILVA . Facility: Start: 05-22-2022 End: 05-24-2022 ambulatory HARSH COFFEY Facility:[facility] Start: 05-18-2022 Encounter for other preprocedural examination AWAIS GARCIA [facility] Start: 05-18-2022 End: 05-19-2022 ambulatory AWAIS GARCIA Facility:[facility] Start: 05-18-2022 End: 05-19-2022 ambulatory AWAIS GARCIA Facility:[facility] Start: 05-18-2022 End: 05-18-2022 Admission to establishment Pacc Main 2 Work Phone: [facility] Start: 05-18-2022 End: 05-18-2022 ambulatory [...] Appointment Start: 05-09-2022 End: 05-10-2022 ambulatory HARSH OCFFEY Facility:[facility] Start: 05-09-2022 End: 05-10-2022 ambulatory KONRAD LILLY Facility:[facility] Start: 05-09-2022 End: 05-09-2022 Patient encounter procedure Harsh Coffey MD Work Phone: Urology Comment on above: Nephrolithiasis (Myrtle thien Dx); Family history of nephrolithiasis; BMI 40.0-44.9, adult (HCC); History of gastric bypass; Essential hypertension; Prediabetes; Bladder spasms; Ureteral stent present; Abnormal urinalysis Start: 04-12-2022 End: 04-12-2022 Patient encounter procedure Konrad LILLY [facility] Start: 04-11-2022 End: 04-12-2022 ambulatory KONRAD LILLY Facility:[facility] Start: 04-06-2022 End: 04-07-[address] KULDIP FLOOD . Facility:[facility] Start: 03-29-2022 End: 03-30-2022 Evaluation and management of inpatient KONRAD LILLY Facility:[facility] Start: 01-31-2022 Encounter for genera l adult medical examination without abnormal findings [facility] Start: 01-27-2022 End: 01-28-[address] AWAIS GARCIA Facility:[facility] Start: 01-27-2022 End: 01-28-2022 Encounter for general adult medical examination without abnormal findings DR AWAIS GARCIA Facility:[facility] Start: 01-25-2022 End: 02-23-[address] AWAIS GARCIA Facility:[facility] Procedures Date Procedure Procedure Detail Performing Clinician Start: 05-30-2023 Adult depression scr eening assessment Marc Waggoner MD Work Phone: Start: 01-22-2023 Duplex scan of lower limb [...] NO FAMILY Start: 05-09-2022 Antibody screen Harsh No ble Work Phone: Start: 05-09-2022 Antibody screen ZEYAD Matthews JOSE Comment on above: Order Comment: Speci men Type: BLOOD SPECIMENOrdering Facility: [facility] Address: [address] [place] [address] Performed By: #### T [id number] ####[facility] BLOOD BANKCLIA [id number] [address] Start: 03-29-2022 Insertion of Other D evice into Genitourinary Tract, Via Natural or Artificial Opening Endoscopic GLEN KNIGHT Start: 01-27-2022 PSA screening GLEN KNIGHT Comment on above: Performed By: #### I NFLUAB #### [facility] [address] [place] [address] Dr. Lissa Sage Start: 08-26-2019 Cystoscopic removal of ureteric stent Konrad LILLY Start: 08-20-2019 Cystoscope, device ( physical object) Konrad LILLY Esophagogastrostomy, antesternal or antethoracic Konrad LILLY Gastric rstcv w/byp w/sm int rcnstj limit absrpj Konradchristine LILLY Hernia repair Konrad LILLY Turbinectomy Konrad SLADE Plan of Treatment Date Care Activity Detail Author Start: 05-09-2025 DIABETES SCREEN DIABETES SCREEN [facility] Start: 05-30-2024 Adult BMI Screening Adult BMI Screen ing [facility] Start: 05-30-2024 Depression Screening Depression Scre ening [facility] Start: 05-30-2024 Tobacco Screening Tobacco Screening [facility] Start: 08-29-2023 End: 08-29-2023 Patient encounter procedure 08/29/2023 12:50 PM EDT [facility] [address] [place] [address] Angélica Toussaint MD [address] [place] [address] [facility] Start: 02-09-2023 COVID-19 Vaccine ( season) COVID-19 Vaccine () [facility] Start: 02-09-2023 Influenza vaccination Influenza Vacc ine [facility] Start: 01-24-2023 [facility] Start: 01-17-2023 Consultation [facility] Start: 01-14-2023 Referral to neurologist [facility] Start: 01-11-2023 Referral to vascular surgeon [facility] Start: 01-03-2023 [facility] Start: 01-03-2023 Hospital admission [facility] Start: 01-03-2023 [facility] Start: 2022 Administration of varicella zoster vaccine Zoster (Shingles) Vaccine (1 of 2) [facility] Start: 06-06-2022 COVID-19 VACCINE (5 - Booster for Moderna series) COVID-19 VACCINE (5 - Booster for Moderna series) [facility] Start: 05-18-2022 End: 07-18-2022 Hemoglobin A1c in Blood [facility] Work Phone: Comment on above: Expected: 05/18/2022 , Expires: 07/18/2022 Start: 06-11-2021 DEPRESSION ASSESSMENT DEPRESSION ASS ESSMENT [facility] Start: 2017 COLOGUARD (FIT-DNA) COLOGUARD (FIT-D NA) [facility] Start: 2017 Colonoscopy COLONOSCOPY [facility] Start: 2017 COLORECTAL CANCER SCREENING COLORECTAL CANCER SCREENING [facility] Start: [address] COLONOGRAPHY [facility] Start: 2017 FECAL OCCULT BLOOD FECAL OCCULT BLOO D [facility] Start: 2017 SIGMOIDOSCOPY SIGMOIDOSCOPY [facility] Start: 08-29-2007 LIPID SCREEN LIPID SCREEN [facility] Start: 08-29-1991 DTaP,Tdap and Td Vaccines (1 - Tdap) DTaP,Tdap and Td Vaccines (1 - Tdap) [facility] Start: 08-29-1991 Urine microalbumin profile DTAP,TDAP,TD (1 - Tdap) [facility] Start: 1990 Adult BMI Follow Up Plan Adult BMI Follow Up Plan [facility] Start: 1990 ANNUAL PCP TEAM PIECE JOBBER VAISHALI DISEASE VISIT ANNUAL PCP TEAM CHRONIC DISEASE VISIT [facility] Start: 1990 BP CONTROLLED (<130/80) BP CONTROLLE D (<130/80) [facility] Start: 1990 HEPATITIS C SCREENING HEPATITIS C SC JASON [facility] Start: 1990 HIV SCREENING HIV SCREENING [facility] Start: 1972 HEPATITIS B (1 of 3 - 3-dose series) HEPATITIS B (1 of 3 - 3-dose series) [facility] Bacteria identified in Urine by Culture URINE CULTURE Microbiology Routine Abnormal urinalysis 05/09/2022 2:50 PM EST [facility] Work Phone: ECG COMPLETE ECG COMPLETE ECG Routine Pre-op evaluation 05/18/2022 2:39 PM EST [facility] Work Phone: IR NEPHROSTOMY TUBE PLACE IR NEPHROSTOMY TUBE PLACE Radiology Routine Nephrolithiasis Family history of nephrolithiasis BMI 40.0-44.9, adult (HCC) History of gastric bypass Essential hypertension Prediabetes Bladder spasms Ureteral stent present Ordered: 05/09/2022 [facility] Work Phone: Comment on above: Ordered: 05/09/2022 Patient Education [facility] Work Phone: Patient referral [facility] Phone[facility] Immunizations Immunization Date Immunization Notes Care Provider Micheal rondon 04-11-2022 SARS-CoV-2 (COVID-19 ) mRNA-1273 vaccine Konrad LILLY [facility] 04-05-2022 influenza virus vaccine, unspecified formulation Konrad Minimally invasive devices [facility] 04-06-2021 SARS-CoV-2 (COVID-19 ) mRNA-1273 vaccine Konrad Minimally invasive devices [facility] 07-07-2020 SARS-CoV-2 (COVID-19 ) mRNA-1273 vaccine KonradNSC [facility] 06-09-2020 SARS-CoV-2 (COVID-19 ) mRNA-1273 vaccine KonradNSC [facility] 03-11-2020 tetanus and diphther ia toxoids, adsorbed, preservative free, for adult use (5 Lf of tetanus toxoid and 2 Lf of diphtheria toxoid) Awais Garcia Other [employer] Other 03-11-2019 influenza virus vaccine, live, attenuated, for intranasal use Konrad Minimally invasive devices [facility] [place] Payers Date Payer Category Payer Unknown [id number] 2021 Unknown MMO MMO [employer] [id number] 2021-Present [phone] [address] [place] [address] PPO [id number] 2019 Unknown [id number] 1972 Unknown [id number] 1972 Unknown [id number] [id number] 1972 Unknown [id number] [id number] 1972 Unknown [id number] [id number] 1972 Unknown [id number] [id number] 1972 Unknown [id number] [id number] 1972 Unknown [id number] [id number] 1972 Unknown [id number] [id number] 1972 Unknown [id number] [id number] 1972 Unknown [id number] [id number] 1972 Unknown [id number] [id number] 1972 Unknown [id number] [id number] 1959 Self-pay Unknown [id number] [id number] Unknown [id number] [id number] Unknown [id number] [id number] Unknown [id number] Social History Date Type Detail Facility Start: 08-26-2019 End: 01-14-2023 Tobacco smoking status Never smoked tobacco (finding) [facility] Start: 12-13-2022 End: 05-30-2023 Sex Assigned At Male [facility] Start: 05-09-2022 End: 12-13-2022 Tobacco use and exposure Smokeless tobacco non-user [facility] Start: 05-09-2022 End: 05-18-2022 Alcohol intake Current drinker of alcohol (finding) [facility] Start: 05-09-2022 End: 05-30-2023 Alcohol intake [facility] Start: 05-09-2022 Alcohol Comment rare [facility] Start: 1970 Sex Assigned At Not on file C [facility] Start: 04-29-2022 End: 05-12-2022 Exposure to SARS-CoV-2 (event) Not sure [facility] Work Phone: Start: 05-18-2022 Alcohol Comment may have a dri nk every 6 months [facility] Tobacco smoking status Never [facility] Start: 1970 Sex Assigned At Male Maddie [facility] Start: 02-21-2023 End: 05-30-2023 Alcohol intake Ex-drinker (finding) [facility] How often to you hav e a drink containing alcohol? 2-4 times a month [facility] How many standard drinks containing alcohol do you have on a typical day? 1 or 2 [facility] How often do you hav e 6 or more drinks on 1 occasion? 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 Evaluation of progress towards goal: Pt will have a safe DC. Functional Status Date Assessment Result Facility 02-20-2023 Functional Status N/A [facility] [place] 01-24-2023 Functional status Patient is Pro gressing [facility]ard [facility] Work Phone: 01-03-2023 Functional status Patient is Pro gressing Toward [facility] Work Phone: 07-19-2022 Functional Status N/A [facility] 05-25-2022 Functional Status N/A [facility] 04-12-2022 Functional Status N/A [facility] Mental Status Date Assessment Result Facility 01-24-2023 Cognitive function Cognitive Sta tus Patient is Progressing [facility]ard [facility] Work Phone: 01-03-2023 Cognitive function Cognitive Sta tus Patient at [facility] Work Phone: Clinical Notes 03-29-2022 to 07-02-2023 Note Date & Type Note Facility 07-02-2023 Evaluation note Encounter Date Diagnosis Assessment Notes Jun, Wellness examination (ICD-10 - Z00.00) Healthy diet and exercise. Reviewed age-appropriate preventive testing recommended. Jun, Essential hypertension (ICD-10 - I10) This patient is instructed to consume a healthy, low-fat, low-salt diet. They are also encouraged to continue exercise to achieve/maintain a normal BMI. Patient is instructed on home BP measurements: - rest for 5 minutes w/o talking.- positioned w/ feet on floor and arm supported.- average best 2/3 readings w/ goal < 135/85.- update office w/ home readings in 2 weeks. Jun, IFG (impaired fasting glucose) (ICD-10 - R73.01) Healthy diet and exercise. 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 Check DDimer and Venous US Jun, Elevated cholesterol (ICD-10 - E78.00) Instructed on diet and exercise with continued statin therapy.Discussed the beneficial effects of lowering cholesterol in reducing the risk for cerebrovascular and cardiovascular disease. 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 Some balance issues, fall precautions, using assistive device. Continue secondary preventive measures Jun, Stenosis of left vertebral artery (ICD-10 - I65.02) Continue secondary preventive measures. Reviewed stroke symptoms and instructed to go to ER for suspicious symptoms Jun, Morbid (severe) obesity due to excess calories (ICD-10 - E66.01) This patient has been instructed on a low-fat, high-fiber diet. They are instructed to reduce calories, portion sizes and snacks. It is recommended that they exercise for 30 minutes, 3-5 times weekly. Jun, Body mass index [BMI] 40.0-44.9, adult (ICD-10 - Z68.41) [employer] Other 01-08-2024 Miscellaneous Notes* Telephone Encounter - Megan Ward CMA - 06/18/2023 8:58 AM EST Received driving eval report. Uploaded to media. Please advise * Telephone Encounter - Ashely Erickson - 06/18/2023 8:58 AM EST Received call today 06/18/23 2:30 from patient in regard to previous message. He is requesting a callback. Please call back and advise, callback#: [phone]. * Telephone Encounter - Gladis Perry PA-C - 06/18/2023 8:58 AM EST Called patient. 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 Told him to call back if he had any questions. [facility] [employer] [id number] Telephone encounter Note* Telephone Encounter - Megan Ward CMA - 06/18/2023 8:58 AM EST Received driving eval report. Uploaded to media. Please advise [facility] Telephone encounter Note* Telephone Encounter - Ashely Erickson - 06/18/2023 8:58 AM EST Received call today 06/18/23 2:30 from patient in regard to previous message. He is requesting a callback. Please call back and advise, callback#: [phone]. [facility] Telephone encounter Note* Telephone Encounter - Gladis Perry PA-C - 06/18/2023 8:58 AM EST Called patient. 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 Told him to call back if he had any questions. [facility] Evaluation note* Encounter Date Diagnosis Assessment Notes Treatment Notes Treatment Clinical Notes May, IFG (impaired fasting glucose) (ICD-10 - R73.01) [employer] Other [id number] History of Present illness Narrative* Marc Wgagoner MD - 05/30/2023 2:00 PM EST Reason for visit: Established patient, 3 month follow up HPI: Taras Hayward is a 52 y.o. 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 His hospitalization was com plicated by cerebellar edema and obstructive hydrocephalus and he underwent suboccipital decompressive craniectomy and and C1 laminectomy and EVD placement. He eventually required COVER CUTTER MACHINE shunt placement.He has a pseudomeningocele which is being monitored by Neurosurgery (Dr. Toussaint). At last clinic visit he was observed to have some RUE weakness. He got an EMG that showed a pinched nerve and his RUEweakness resolved. Taras presents to clinic today by himself. He reports he just went back to work this last week, he was able to do 4 days in a row and needed to take Sunday off. He feel his balance is good and takes a cane for precautions but is mostly walking without it. He is independent with his iadls with theexception of driving. 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 He denies dizziness, focal weakness, numbness/tingling, changes in vision. No difficulty swallowing. 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 Review of Systems Review of Systems Constitutional: Negative for decreased appetite, malaise/fatigue, weight gain and weight loss. HENT: Negative for nosebleeds. Eyes: Negative for blurred vision, double vision, vision loss in left eye, vision loss in right eyeand visual disturbance. Cardiovascular: Negative for irregular heartbeat, leg swelling, near-syncope, palpitations and syncope. Respiratory: Negative for shortness of breath and sleep disturbances due to breathing. Hematologic/Lymphatic: Negative for bleeding problem. Does not bruise/bleed easily. Skin: Negative for poor wound healing. Musculoskeletal: Negative for falls, muscle cramps, muscle weakness, myalgias and neck pain. Gastrointestinal: Negative for dysphagia. Neurological: Negative for aphonia, difficulty with concentration, disturbances in coordination, dizziness, focal weakness, headaches, light-headedness, loss of balance, numbness, paresthesias, seizures, sensory change, vertigo and weakness. Psychiatric/Behavioral: Negative for altered mental status, depression and memory loss. The patientdoes not have insomnia and is not nervous/anxious. Past Medical History Past Medical History: Diagnosis Date Headache Hematuria Hypertension Kidney stones Nephrolithiasis Obesity Stroke (CMS-HCC) Urethral stricture Urinary retention Past Surgical History Past Surgical History: Procedure Laterality Date CYSTOSCOPY W/ URETERAL STENT PLACEMENT 08/26/2019 GASTRIC BYPASS GASTRIC RESTRICTION SURGERY with small bowel reconstruction HERNIA REPAIR RIGHT FRONTAL EVD -SUBOCCIPITAL DECOMPRESSIVE CRANIECTOMY Right 12/13/2022 Performed by Angélica Toussaint MD at [facility] STEALTH INSERTION SHUNT VENTICULOPERITONEAL AXIOM AND REMOVAL OF EVD N/A 12/30/2022 Performed by Angélica Toussaint MD at [facility] Family History The patient has a family history of Family History Problem Relation Age of Onset Heart disease Mother Cancer Mother Heart disease Brother Diabetes Brother Social History Social History Socioeconomic History Marital status: Significant Other Spouse name: Not on file Number of children: Not on file Years of education: Not on file Highest education level: Not on file Occupational History Not on file Tobacco Use Smoking status: Never Smokeless tobacco: Never Vaping Use Vaping Use: Never used Substance and Sexual Activity Alcohol use: Not Currently Drug use: Never Sexual activity: Defer Other Topics Concern Not on file Social History Narrative Not on file Social Determinants of Health Financial Resource Strain: Not on file Food Insecurity: No Food Insecurity (02/21/2023) Hunger Screening Food Insecurity - Worry: Never True Food Insecurity - Inability: Never True Transportation Needs: Not on file Physical Activity: Not on file Stress: Not on file Social Connections: Not on file Interpersonal Safety: Not on file Current Medications: Current Outpatient Medications: acetaminophen (TYLENOL) 325 mg tablet, Take 2 tablets (650 mg total) by mouth every 6 (six) hours as needed for pain or headaches., Disp: 30 tablet, Rfl: 0 amitriptyline (ELAVIL) 10 mg tablet, Take 1 tablet (10 mg total) by mouth nightly., Disp: , Rfl: aspirin 81 mg, Take 1 tablet (81 mg total) by mouth in the morning., Disp: , Rfl: atorvastatin (LIPITOR) 10 mg tablet, Take 1 tablet (10 mg total) by mouth nightly., Disp: , Rfl: bacitracin 500 unit/gram packet, Apply 1 Application topically in the morning and 1 Application before bedtime., Disp: , Rfl: carvediloL (COREG) 6.25 mg tablet, Take 1 tablet (6.25 mg total) by mouth in the morning and 1 tablet (6.25 mg total) before bedtime., Disp: , Rfl: cyproheptadine (PERIACTIN) 4 mg tablet, Take 1 tablet (4 mg total) by mouth nightly., Disp: , Rfl: ELIQUIS 5 mg tablet, Take 1 tablet (5 mg total) by mouth in the morning and 1 tablet (5 mg total) before bedtime., Disp: , Rfl: melatonin (CIRCADIN) tablet, Take 1 tablet (3 mg total) by mouth nightly., Disp: , Rfl: 0 ondansetron ODT (ZOFRAN ODT) 4 mg disintegrating tablet, Dissolve 2 tablets (8 mg total) on tongue every 12 (twelve) hours as needed for nausea., Disp: , Rfl: polyethylene glycol (GLYCOLAX) 17 gram packet, Take 17 g by mouth daily as needed (constipation)., Disp: , Rfl: semaglutide (OZEMPIC) 0.25 mg or 0.5 mg(2 mg/1.5 mL) pen injector, , Disp: , Rfl: sennosides-docusate sodium (SENOKOT-S) 8.6-50 mg, Take 2 tablets by mouth in the morning and 2 tablets before bedtime., Disp: , Rfl: tamsulosin (FLOMAX) 0.4 mg capsule, Take 1 capsule (0.4 mg total) by mouth nightly., Disp: , Rfl: venlafaxine XR (EFFEXOR XR) 37.5 mg 24 hr capsule, Take 1 capsule (37.5 mg total) by mouth in the morning., Disp: , Rfl: Allergies: No Known Allergies Last Neuro Imaging: No new cerebral imaging to review. Objective: BP (!) 146/92 (BP Site: Left Arm, BP Postition: Sitting, BP CUFF SIZE: M (9-13 inches)) Pulse 85 Ht 190.5 cm (6' 3 ) Wt (!) 143.5 kg (316 lb 4.8 oz) BMI 39.53 kg/m Physical Exam: Neurology Physical Exam NIH Stroke Scale 1a Level of consciousness: 0=alert; keenly responsive 1b. LOC questions: 0=Performs both tasks correctly 1c. LOC commands: 0=Performs both tasks correctly 2. Best Gaze: 0=normal 3. Visual: 0=No visual loss 4. Facial Palsy: 0=Normal symmetric movement 5a. Motor left arm: 0=No drift, limb holds 90 (or 45) degrees for full 10 seconds 5b. Motor right arm: 0=No drift, limb holds 90 (or 45) degrees for full 10 seconds 6a. motor left le=No drift, limb holds 90 (or 45) degrees for full 10 seconds 6b Motor right le=No drift, limb holds 90 (or 45) degrees for full 10 seconds 7. Limb Ataxia: 0=Absent 8. Sensory: 0=Normal; no sensory loss 9. Best Language: 0=No aphasia, normal 10. Dysarthria: 0=Normal 11. Extinction and Inattention: 0=No abnormality Total: 0 General Appearance: alert, active, cooperative, and in no distress Head: Normocephalic, without obvious abnormality, atraumatic Eyes: conjunctivae/corneas clear. PERRL, EOM's intact. Fundi benign. Lungs: non-labored Heart: regular rate Abdomen: non-distended Extremities: extremities normal, atraumatic, no cyanosis or edema Skin: Skin color, texture, turgor normal. No rashes or lesions Neurologic: Grossly normal NIHSS0 MRS: 2 PHQ9: Depression Screening Total Score: 0 Risk Factor Management: Hypertension target range 130-140/70-80 HLD Hx of DVT Obesity Assessment/Plan: Cerebellar Ischemic Stroke Secondary to Left Vertebral Artery Occlusion vs Dissection with Right Vertebral Artery Stenosis s/p suboccipital decompressive craniectomy and and C1 laminectomy and EVD placement -continue 81 mg aspirin -Continue PT/OT -Follow up in [facility] in 6 months Hypertension- Advise continuing to monitor for target SBP <130 -Continue antihypertensive regimen 3. Hyperlipidemia - goal LDL < 70 - continue statin 4. Right Popliteal DVT -Continue Eliquis, follow up with PCP -Call 911 if experiencing any stroke like symptoms (vision changes, speech changes, weakness, paresthesias, gait instability) - GLADIS PERRY PA-C Patient seen in clinic with Dr. Waggoner . Patient seen & examined in conjunction with KAYLEE. I have reviewed and agree with the HPI, ROS, examination, assessment and plan as outlined in the note above. documented in this encounterAvita [facility] HospitalRuralco Holdings [id number] Instructions* Patient Instructions* Gladis Perry PA-C - 05/30/2023 2:00 PM EST Follow up in clinic in 6 month in [facility] Continue to follow up with Dr. 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 Call our office once completed for us to review. documented in this encounterAvita [facility] HospitalRuralco Holdings [id number] Evaluation note* Encounter Date Diagnosis Assessment Notes Treatment Notes Treatment Clinical Notes May, Nausea (ICD-10 - R11.0) [employer] Other [id number] Miscellaneous Notes* Telephone Encounter - Davina Hawkins RN - 05/11/2023 11:[address] Waggoner, patient needs appt with Dr. Toussaint specifically (no PA or SECRETARY OF STATE) to address meningoceletreatment as this is likely the reason for patients symptoms he is experiencing. Please call to schedule patient. documented in this encounterCentral [facility] CenterThe [facility] [id number] Telephone encounter Note* Telephone Encounter - Davina Hawkins RN - 05/11/2023 11:[address] Waggoner, patient needs appt with Dr. Toussaint specifically (no PA or SECRETARY OF STATE) to address meningoceletreatment as this is likely the reason for patients symptoms he is experiencing. Please call to schedule patient. [facility]09-13-2023 Note [id number] 02-20-2023 Hospital Discharge instructions Patient Education 02/20/2023 [...] include: ?8 oz (237 mL) of milk, dwctgem-eagheqazoegc-bcewg milk, and calcium- fortifiedfruit juice. Calcium-fortified means [...] ?Spinach (cooked), rhubarb, beets, sweet potatoes, and [place] Citizen chard. ?Peanuts. ?Potato chips, citizen of [place] fries, and baked potatoes with skin on. ?Nuts and nut products. ?Chocolate. If you regularly take a diuretic medicine, make sure to eat at least 1 or 2 servings of fruits or vegetables that are high in potassium each day. These include: ?Avocado. ?Banana. ?[place], prune, carrot, or tomato juice. ?Baked potato. [...] magnesium, fish oil, or vitamin B6. Take tgzq-hie-vybdlia and prescription medicines only as told by [...] Casseroles. Pizza. Lasagna. Frozen meals. Potato chips. [place] fries. The items listed above may not [...] provider. Document Revised: 02/06/2022 Document Reviewed: 02/06/2022 [employer] Patient Education 2022 [employer]. Follow Up Care 01/24/2023 14:46:51 With:MARQUISE PAGE, DONNA Hurt, URL Address: [address] [facility] [address] When:Within 3 Month(s) Comments:w/[facility] 09-08-2023 Evaluation note* Encounter Date Diagnosis Assessment Notes Treatment Notes Treatment Clinical Notes Feb, Elevated cholesterol (ICD-10 - E78.00) Feb, Cerebellar infarction with occlusion or stenosis of cerebellar artery (ICD-10 - I63.549) Feb, Benign prostatic hyperplasia with lower urinary tract symptoms (ICD-10 - N40.1) Feb, Essential hypertension (ICD-10 - I10) [employer] Other 08-30-2023 Evaluation note* Encounter Date Diagnosis [...] urinary tract symptoms (ICD-10 - N40.1) Required kramre catheter during hospitalization Initiated on Flomax w/o further difficulties. Continue for now. Jan, Nausea (ICD-10 - R11.0) Persistent and likely related to CBL CVA. Instructed to increase Zofran dose at noon due to afternoon nausea Small, frequent meals [employer] Other 08-16-2023 Discharge summary Author Srinivas Patricia [facility] January 24, 2023 1:59pm Note Date/Time January 24, 2023 10 :06am [facility] [address] [place] [address] Discharge Summary Signed Patient: Taras Hayward MR#: [id number] : 1970 Acct:[id number] Age/Sex: 52 / M Adm Date: 3 Loc: Room: 9T5154-[address]: Srinivas Patricia MD Copies to: [...] to Neurosurgery Routine Discharge Diagnosis (1) S/P COVER CUTTER MACHINE shunt: (2) Hydrocephalus: (3) Cerebellar infarct: (4) [...] nephrolithiasis, gastric bypass surgery. Patient presented to [facility] emergency department via EMS with complaints of dizziness, nausea and vomiting, vertigo, and headache.? He stated the symptoms started suddenly when he was sitting in the chair after returning from work thatday.? CTA head and neck [facility] in [place]. MRI of the brain showed late acute [...] demonstrating pseudocyst.? On 12/30/2022 patient underwent a COVER CUTTER MACHINE shunt placement due to obstructive hydrocephalus and [...] generally healthy and worked full- time at [employer]. Rehabilitation Course: Course was complicated by right [...] Plan Discharge Plan Patient Disposition: Home Health [facility] Activity: Ambulate as Tolerated Diet: Regular Additional [...] appointment details). Your Home Health agency is [facility] ( ). They will contact you 24-48 [...] to your appointment.. Instructions: Stroke (DC), Cyproheptadine, [facility] Kramer Catheter Care at Home Prescriptions: New [...] Determined by Patient Ordered By: Srinivas Patricia DME Home Medical Equipment (Routine) Timeframe: 20230122 Location: Determined by Patient Ordered By: Srinivas Patricia Follow Up: Angélica Toussaint MD [Other] - 02/14/23 1:10 pm [facility] Stroke Provider [Other] - 02/21/23 3:[address] angiogram head and carotid [Other] Konrad Lilly MD [Active Staff] - Awais Garcia DO [Referring] - 02/06/23 11:30 am (PCP) Srinivas Patricia MD [Active Staff] - (follow up with rehab physician as/if needed) Documented By: Srinivas Patricia MD 01/24/23 1006 Signed By: <Electronically signed by Srinivas Patricia MD> 01/24/23 0566 [facility] Work Phone: 1(799) 117-878008-15-2023 Progress note Author Srinivas Patricia [facility] January 23, 2023 10:27am Note Date/Time January 23, 2023 10 :27am [facility] [address] [place] [address] Physiatry(Rehab) Progress Note Signed Patient: Taras Hayward MR#: [id number] : 1970 Acct:[id number] Age/Sex: 52 / M Adm Date: 3 Loc: Room: [address] [place] [address] Type: ADM IN Attending Dr: Srinivas Patricia MD Copies to: ~ Date of Service: 01/23/2023 Subjective Subjective Narrative: Mr. Hayward is a 52 year old male presenting to inpatient rehab unit with functional impairments secondary to left cerebellar CVA. His past medical history is notable for obesity, hypertension, nephrolithiasis, gastric bypass surgery. Patient presented to [facility] emergency department via EMS with complaints of dizziness, nausea and vomiting, vertigo, and headache. He stated the symptoms started suddenly when he was sitting in the chair after returning from work thatday. CTA head and neck demonstrated left vertebral artery occlusion near originwhich prompted a transfer to [facility] in [place]. MRI of the brain showed late acute [...] demonstrating pseudocyst. On 12/30/2022 patient underwent a COVER CUTTER MACHINE shunt placement due to obstructive hydrocephalus and [...] generally healthy and worked full- time at [employer]. Interval History: Still retaining urine, required CIC [...] 08:47 01/23/23 08:47 Narrative: General: cooperative, comfortable [facility] Head: normal to inspection Eyes General: appearance [...] % (Auto) 65.2 Lymph % (Auto) 25.4 [place] % (Auto) 6.7 Eos % (Auto) 2.4 Baso % (Auto) 0.3 Nucleat RBC Rel Count 0.1 Neut # (Auto) 5.2 Lymph # (Auto) 2.0 [place] # (Auto) 0.5 Eos # (Auto) 0.2 Baso # (Auto) 0.0 PHA Creatinine Clear 131.71 Sodium 134 L Potassium 3.8 Chloride 98 Carbon Dioxide 29.2 Anion Gap 10.6 BUN 16 Creatinine 1.04 Est GFR (CKD-EPI) > 60.0 Glucose 147 H Calcium 9.3 Urine Color Hodgeman A Urine Appearance Cloudy A Urine pH 5.5 Ur Specific Marshall 1.024 Urine Protein 100 H Urine Glucose [...] Dose Route Start Last Admin Trade Name Dom PRN Reason Stop Dose Admin Acetaminophen 1,000 [...] 01/04/23 09:00 01/23/23 08:44 Aspirin 81 Mg Tablet.Dr PO 01/04/24 08:59 81 mg QAM LEANNA Administration Atorvastatin Calcium 10 mg 01/03/23 22:00 01/22/23 20:44 Atorvastatin 10 Mg Tablet PO 01/03/24 21:59 10 mg QHS LEANNA Administration Bacitracin 1 applic 01/09/23 21:00 01/23/23 08:45 Bacitracin Oint 14 Gm Tube TOPICAL 01/09/24 20:59 1 applic BID LEANNA Administration Bisacodyl 10 mg 01/03/23 15:41 Bisacodyl 10 Mg Supp.Rect [place] 01/03/24 15:40 DAILY PRN Constipation Carvedilol 12.5 [...] 15:41 Docusate Enema 283 Mg/5 Ml Enema [place] 01/03/24 15:40 DAILY PRN Constipation Lactulose 30 [...] DAILY LEANNA Administration Assessment/Plan Assessment/Plan (1) S/P COVER CUTTER MACHINE shunt: Code(s): Z98.2 - Presence of cerebrospinal [...] functional impairmentssecondary to left cerebellar CVA s/p COVER CUTTER MACHINE shunt placement due to development of hydrocephalus. [...] equipment to enhance the patient's a functional restorationist Ensure adequate nutrition and hydration Sleep: No issues Pain: Continue current regimen Discharge planning:. Home 01/24. I spent greater than 25 minutes for services, including gtws-ea-hevi encounter with the patient, discussion of the case, plan of care, and exam; and zqsbjzd-pm-nnwr activities, such as reviewing pertinent natural remedy consultant documentation,recent therapy notes, laboratory and radiology studies, and discussion of case with care team including physician, nursing, case packer, and therapists. More than 50 % of time was spent on patient/family counseling or coordination ofcare. Documented By: Srinivas Patricia MD 01/23/23 1024 Signed By: <Electronically signed by Srinivas Patricia MD> 01/23/23 1027 [facility] Work Phone: 1([phone]) 569-511408-14-2023 Progress note Author Srinivas Patricia [facility] January 22, 2023 2:08pm Note Date/Time January 22, 2023 9: 41am [facility] [address] [place] [address] Physiatry(Rehab) Progress Note Signed Patient: Taras Hayward MR#: [id number] : 1970 Acct:[id number] Age/Sex: 52 / M Adm Date: 3 Loc: Room: [address] [place] [address] Type: ADM IN Attending Dr: Srinivas Patricia MD Copies to: ~ Date of Service: 01/22/2023 Subjective Subjective Narrative: Mr. Hayward is a 52 year old male presenting to inpatient rehab unit with functional impairments secondary to left cerebellar CVA. His past medical history is notable for obesity, hypertension, nephrolithiasis, gastric bypass surgery. Patient presented to [facility] emergency department via EMS with complaints of dizziness, nausea and vomiting, vertigo, and headache. He stated the symptoms started suddenly when he was sitting in the chair after returning from work thatday. CTA head and neck demonstrated left vertebral artery occlusion near originwhich prompted a transfer to [facility] in [place]. MRI of the brain showed late acute [...] demonstrating pseudocyst. On 12/30/2022 patient underwent a COVER CUTTER MACHINE shunt placement due to obstructive hydrocephalus and [...] generally healthy and worked full- time at [employer]. Interval History: He's doing well today. Mood is brighter. Ambulatory 235'. Improved with PIZZAMAKER. Anxious for home discharge. Vitals stable on [...] LEANNA Administration Apixaban 5 mg 01/18/23 21:00 01/22/23 09:05 Apixaban 5 Mg Tablet PO 01/18/24 20:59 5 mg BID LEANNA Administration Aspirin 81 mg 01/04/23 09:00 01/22/23 09:04 Aspirin 81 Mg Tablet.Dr PO 01/04/24 08:59 81 mg QAM LEANNA Administration Atorvastatin Calcium 10 mg 01/03/23 22:00 01/21/23 20:38 Atorvastatin 10 Mg Tablet PO 01/03/24 21:59 10 mg QHS LEANNA Administration Bacitracin 1 applic 01/09/23 21:00 01/22/23 09:05 Bacitracin Oint 14 Gm Tube TOPICAL 01/09/24 20:59 1 applic BID LEANNA Administration Bisacodyl 10 mg 01/03/23 15:41 Bisacodyl 10 Mg Supp.Rect [place] 01/03/24 15:40 DAILY PRN Constipation Carvedilol 12.5 [...] 15:41 Docusate Enema 283 Mg/5 Ml Enema [place] 01/03/24 15:40 DAILY PRN Constipation Lactulose 30 [...] DAILY LEANNA Administration Assessment/Plan Assessment/Plan (1) S/P COVER CUTTER MACHINE shunt: Code(s): Z98.2 - Presence of cerebrospinal [...] functional impairmentssecondary to left cerebellar CVA s/p COVER CUTTER MACHINE shunt placement due to development of hydrocephalus. . He does complain of continued intermittent headaches, nausea/vomiting, dizziness/lightheadedness. * Improved today, ambulatory and working with PT/OT/PIZZAMAKER. * Mood improved. * D/C kramer after [...] equipment to enhance the patient's a functional restorationist Ensure adequate nutrition and hydration Sleep: No issues Pain: Continue current regimen Discharge planning:. Home 01/24. I spent greater than 25 minutes for services, including khae-ca-pewr encounter with the patient, discussion of the case, plan of care, and exam; and pfuwsqy-iw-alna activities, such as reviewing pertinent natural remedy consultant documentation, recent therapy notes, laboratory and radiology studies, and discussion of case with care team including physician, nursing, case packer, and therapists. More than 50 % of time was spent on patient/family counseling or coordination ofcare. Documented By: Srinivas Patricia MD 01/22/23 8698 Signed By: <Electronically signed by Srinivas Patricia MD> 01/22/23 1407 [facility] Work Phone: 1(484) 676-402408-11-2023 Progress note Author Srinivas Patricia [facility] January 19, 2023 1:10pm Note Date/Time January 19, 2023 1: 10[facility] [address] [place] [address] Physiatry(Rehab) Progress Note Signed Patient: Taras Hayward MR#: [id number] : 1970 Acct:[id number] Age/Sex: 52 / M Adm Date: 3 Loc: 5T Room: [address] [place] [address] Type: ADM IN Attending Dr: Srinivas Patricia MD Copies to: ~ Date of Service: 01/19/2023 Subjective Subjective Narrative: Mr. Hayward is a 52 year old male presenting to inpatient rehab unit with functional impairments secondary to left cerebellar CVA. His past medical history is notable for obesity, hypertension, nephrolithiasis, gastric bypass surgery. Patient presented to [facility] emergency department via EMS with complaints of dizziness, nausea and vomiting, vertigo, and headache. He stated the symptoms started suddenly when he was sitting in the chair after returning from work thatday. CTA head and neck demonstrated left vertebral artery occlusion near originwhich prompted a transfer to [facility] in [place]. MRI of the brain showed late acute [...] demonstrating pseudocyst. On 12/30/2022 patient underwent a COVER CUTTER MACHINE shunt placement due to obstructive hydrocephalus and [...] generally healthy and worked full- time at [employer]. Interval History: In place for retention. He [...] 11:57 01/19/23 11:59 Narrative: General: cooperative, comfortable [facility] Head: normal [...] % (Auto) 53.7 Lymph % (Auto) 36.1 [place] % (Auto) 8.7 Eos % (Auto) 1.2 Baso % (Auto) 0.3 Nucleat RBC Rel Count 0.2 Neut # (Auto) 4.7 Lymph # (Auto) 3.2 [place] # (Auto) 0.8 Eos # (Auto) 0.1 [...] mg 01/03/23 15:41 Bisacodyl 10 Mg Supp.Rect [place] 01/03/24 15:40 DAILY PRN Constipation Carvedilol 12.5 [...] 15:41 Docusate Enema 283 Mg/5 Ml Enema [place] 01/03/24 15:40 DAILY PRN Constipation Lactulose 30 [...] DAILY LEANNA Administration Assessment/Plan Assessment/Plan (1) S/P COVER CUTTER MACHINE shunt: Code(s): Z98.2 - Presence of cerebrospinal [...] functional impairmentssecondary to left cerebellar CVA s/p COVER CUTTER MACHINE shunt placement due to development of hydrocephalus. [...] equipment to enhance the patient's a functional restorationist Ensure adequate nutrition and hydration Sleep: No issues Pain: Continue current regimen Discharge planning:. Home next week. I spent greater than 25 minutes for services, including frwp-xp-ljsu encounter with the patient, discussion of the case, plan of care, and exam; and urjjegc-zm-plfm activities, such as reviewing pertinent natural remedy consultant documentation, recent therapy notes, laboratory and radiology studies, and discussion of case with care team including physician, nursing, case packer, and therapists. More than 50 % of time was spent on patient/family counseling or coordination ofcare. Documented By: Srinivas Patricia MD 01/19/23 1308 Signed By: <Electronically signed by Srinivas Patricia MD> 01/19/23 1310 [facility] Work Phone: 1(275) 246-974908-11-2023 Progress note Author Srinivas Patricia [facility] January 19, 2023 12:14pm Note Date/Time January 18, 2023 1: 17pm [facility] [address] [place] [address] Physiatry(Rehab) Progress Note Signed Patient: Taras Hayward MR#: [id number] : 1970 Acct:[id number] Age/Sex: 52 / M Adm Date: 3 Loc: 5T Room: 1B2391-9 Type: ADM IN Attending Dr: Srinivas Patricia [...] nephrolithiasis, gastric bypass surgery. Patient presented to [facility] emergency department via EMS with complaints of dizziness, nausea and vomiting, vertigo, and headache. He stated the symptoms started suddenly when he was sitting in the chair after returning from work thatday. CTA head and neck [facility] [place]. MRI of the brain showed late acute [...] demonstrating pseudocyst. On 12/30/2022 patient underwent a COVER CUTTER MACHINE shunt placement due to obstructive hydrocephalus and [...] generally healthy and worked full- time at [employer]. Interval History: Feeling somewhat better this morning. [...] Objective <Tisha Cardona APRN - Last Filed: 01/18/23 13:51> Labs 01/13/23 [...] 01/04/23 09:00 01/18/23 08:07 Aspirin 81 Mg Tablet.Dr PO 01/04/24 08:59 81 mg QAM LEANNA Administration Atorvastatin Calcium 10 mg 01/03/23 22:00 01/17/23 20:53 Atorvastatin 10 Mg Tablet PO 01/03/24 21:59 10 mg QHS LEANNA Administration Bacitracin 1 applic 01/09/23 21:00 01/18/23 08:07 Bacitracin Oint 14 Gm Tube TOPICAL 01/09/24 20:59 Not Given BID LEANNA Bisacodyl 10 mg 01/03/23 15:41 Bisacodyl 10 Mg Supp.Rect [place] 01/03/24 15:40 DAILY PRN Constipation Carvedilol 12.5 [...] 15:41 Docusate Enema 283 Mg/5 Ml Enema [place] 01/03/24 15:40 DAILY PRN Constipation Lactulose 30 [...] mg DAILY LEANNA Administration Assessment/Plan <Tisha Cardona, SATELLITE DISH INSTALLER - Last Filed: 01/18/23 13:51> Assessment/Plan (1) S/P COVER CUTTER MACHINE shunt: Code(s): Z98.2 - Presence of cerebrospinal [...] functional impairmentssecondary to left cerebellar CVA s/p COVER CUTTER MACHINE shunt placement due to development of hydrocephalus. [...] equipment to enhance the patient's a functional restorationist Ensure adequate nutrition and hydration Sleep: No issues Pain: Continue current regimen Discharge planning:. Home 1-2 weeks. I spent greater than 20 minutes for services, including knly-wy-ietr encounter with the patient, discussion of the case, plan of care, and exam; and otqoatm-bk-bfhw activities, such as reviewing pertinent natural remedy consultant documentation, recent therapy notes, laboratory and radiology studies, and discussion of case with care team including physician, nursing, case packer, and therapists. More than 50 % of time was spent on patient/family counseling or coordination ofcare. Plan: 3 <Irvin Sifuentes MD - Last Filed: 01/19/23 09:00> Assessment/Plan (1) S/P COVER CUTTER MACHINE shunt: (2) Hydrocephalus: (3) Cerebellar infarct: (4) Hypertension: (5) Obesity (BMI 35.0-39.9 without comorbidity): (6) Tachycardia: (7) Impaired mobility and activities of daily living: (8) DVT, popliteal, acute: Plan: I reviewed the history and the relevant portions of the chart, including currentorders, allied health and natural remedy consultant notes, labs/imaging and plan of care as above. I reviewed the history and the relevant portions of the chart, including currentorders, allied health and natural remedy consultant notes, labs/imaging and plan of care as above. Documented By: Tisha Cardona APRN 01/18/23 1 315 Signed By: <Electronically signed by RADHA Cardona> 01/18/23 1351 <Electronically signed by Srinivas Patricia MD> 01/19/23 1214 <Electronically signed by Irvin Sifuentes MD> 01/19/23 0900 [facility] Work Phone: 1([phone]) 557-116308-10-2023 Progress note Author Pilo Nieto [facility] January 18, 2023 5:10pm Note Date/Time January 18, 2023 5: 10pm [facility] [address] [place] [address] Neurology Progress Note Signed Patient: Taras Hayward MR#: [id number] : 1970 Acct:[id number] Age/Sex: 52 / M Adm Date: 3 Loc: Room: [address] [place] [address] Type: ADM IN Attending Dr: Srinivas Patricia [...] By: <Electronically signed by Pilo Nieto DO> 01/18/23 171 [facility] Work Phone: 1([phone]) 352-361508-09-2023 Progress note Author Srinivas Patricia [facility] January 17, 2023 4:18pm Note Date/Time January 17, 2023 4:1 8pm [facility] [address] [place] [address] Physiatry(Rehab) Progress Note Signed Patient: Taras Hayward MR#: [id number] : 1970 Acct:[id number] Age/Sex: 52 / M Adm Date: 3 Loc: Room: [address] [place] [address] Type: ADM IN Attending Dr: Srinivas Patricia MD Copies to: ~ Date of Service: 01/17/2023 Subjective Subjective Narrative: Mr. Hayward is a 52 year old male presenting to inpatient rehab unit with functional impairments secondary to left cerebellar CVA. His past medical history is notable for obesity, hypertension, nephrolithiasis, gastric bypass surgery. Patient presented to [facility] emergency department via EMS with complaints of dizziness, nausea and vomiting, vertigo, and headache. He stated the symptoms started suddenly when he was sitting in the chair after returning from work thatday. CTA head and neck demonstrated left vertebral artery occlusion near originwhich prompted a transfer to [facility] in [place]. MRI of the brain showed late acute [...] demonstrating pseudocyst. On 12/30/2022 patient underwent a COVER CUTTER MACHINE shunt placement due to obstructive hydrocephalus and [...] generally healthy and worked full- time at [employer]. Interval History: NSGY able to interrogate shunt, ok to proceed with MRI as ordered. Reviewed case with [facility], in absence of worsening hydrocephaluson imaging, [...] 05:00 01/17/23 07:30 Narrative: General: cooperative, comfortable HENMT Head: normal [...] Dose Route Start Last Admin Trade Name Nikhilq PRN Reason Stop Dose Admin Acetaminophen 1,000 [...] mg 01/03/23 15:41 Bisacodyl 10 Mg Supp.Rect [place] 01/03/24 15:40 DAILY PRN Constipation Carvedilol 12.5 [...] 15:41 Docusate Enema 283 Mg/5 Ml Enema [place] 01/03/24 15:40 DAILY PRN Constipation Lactulose 30 [...] DAILY LEANNA Administration Assessment/Plan Assessment/Plan (1) S/P COVER CUTTER MACHINE shunt: Code(s): Z98.2 - Presence of cerebrospinal [...] functional impairmentssecondary to left cerebellar CVA s/p COVER CUTTER MACHINE shunt placement due to development of hydrocephalus. . He does complain of continued intermittent headaches, nausea/vomiting, dizziness/lightheadedness. Therapy limited by dizziness/nausea this afternoon. This morning worked well with [employer], minimal dysarthria, improved vocal quality. I reviewed the case with [facility] NS[facility], they agree with current plan of [...] equipment to enhance the patient's a functional restorationist Ensure adequate nutrition and hydration Sleep: No issues Pain: Continue current regimen Discharge planning:. Home 1-2 weeks. I spent greater than 35 minutes for services, including gpjh-qd-bnax encounter with the patient, discussion of the case, plan of care, and exam; and zgqftnr-yo-iwne activities, such as reviewing pertinent natural remedy consultant documentation, recent therapy notes, laboratory and radiology studies, and discussion of case with care team including physician, nursing, case packer, and therapists. More than 50 % of time was spent on patient/family counseling or coordination ofcare. Plan: 3 Documented By: Srinivas Patricia MD 01/17/231611 Signed By: <Electronically signed by Srinivas Patricia MD> 01/17/23 1618 [facility] Work Phone: 1([phone]) 168-518408-08-2023 Progress note Author Pilo Nieto [facility] January 16, 2023 6:10pm Note Date/Time January 16, 2023 6:1 0pm [facility] [address] [place] [address] Neurology Progress Note Signed Patient: Taras Hayward MR#: [id number] : 1970 Acct:[id number] Age/Sex: 52 / M Adm Date: 3 Loc: Room: [address] [place] [address] Type: ADM IN Attending Dr: Srinivas Patricia [...] Status: Acute Documented By: Pilo Nieto DO 01/16/231806 Signed By: <Electronically signed by Pilo Nieto DO> 01/16/23 1810 [facility] Work Phone: 1([phone]) 742-284608-08-2023 Progress note Author Srinivas Patricia [facility] January 16, 2023 2:58pm Note Date/Time January 16, 2023 2:5 9pm [facility] [address] [place] [address] Physiatry(Rehab) Progress Note Signed Patient: Taras Hayward MR#: [id number] : 1970 Acct:[id number] Age/Sex: 52 / M Adm Date: 3 Loc: 5T Room: [address] [place] [address] Type: ADM IN Attending Dr: Srinivas Patricia MD Copies to: ~ Date of Service: 01/16/2023 Subjective Subjective Narrative: Mr. Hayward is a 52 year old male presenting to inpatient rehab unit with functional impairments secondary to left cerebellar CVA. His past medical history is notable for obesity, hypertension, nephrolithiasis, gastric bypass surgery. Patient presented to [facility] emergency department via EMS with complaints of dizziness, nausea and vomiting, vertigo, and headache. He stated the symptoms started suddenly when he was sitting in the chair after returning from work thatday. CTA head and neck demonstrated left vertebral artery occlusion near originwhich prompted a transfer to [facility] in [place]. MRI of the brain showed late acute [...] demonstrating pseudocyst. On 12/30/2022 patient underwent a COVER CUTTER MACHINE shunt placement due to obstructive hydrocephalus and [...] generally healthy and worked full- time at [employer]. Interval History: Seen and examined at bedside. [...] 01/04/23 09:00 01/16/23 08:12 Aspirin 81 Mg Tablet.Dr PO 01/04/24 08:59 81 mg QAM LEANNA Administration Atorvastatin Calcium 10 mg 01/03/23 22:00 01/15/23 21:26 Atorvastatin 10 Mg Tablet PO 01/03/24 21:59 10 mg QHS [facility] Administration Bacitracin 1 applic 01/09/23 21:00 01/16/23 08:13 Bacitracin Oint 14 Gm Tube TOPICAL 01/09/24 20:59 1 applic BID LEANNA Administration Bisacodyl 10 mg 01/03/23 15:41 Bisacodyl 10 Mg Supp.Rect [place] 01/03/24 15:40 DAILY PRN Constipation Carvedilol 12.5 mg 01/05/23 09:15 01/16/23 08:12 Carvedilol 12.5 Mg Tablet PO 01/05/24 09:14 12.5 mg Q12HR LEANNA Administration Cyproheptadine HCl 4 mg 01/14/23 22:00 01/15/23 21:25 Cyproheptadine 4 Mg Tablet PO 01/14/24 21:59 4 mg QHS [facility] Administration Diazepam 1 mg 01/14/23 13:51 01/14/23 15:25 Diazepam 2 Mg Tablet PO 07/13/23 20:59 1 mg BID PRN Administration severe dizziness Docusate Sodium 100 mg 01/03/23 15:41 01/15/23 05:31 Docusate 100 Mg Capsule PO 01/03/24 15:40 100 mg BID PRN Administration Constipation Docusate Sodium 283 mg 01/03/23 15:41 Docusate Enema 283 Mg/5 Ml Enema [place] 01/03/24 15:40 DAILY PRN Constipation Lactulose 30 [...] DAILY LEANNA Administration Assessment/Plan Assessment/Plan (1) S/P COVER CUTTER MACHINE shunt: Code(s): Z98.2 - Presence of cerebrospinal [...] functional impairmentssecondary to left cerebellar CVA s/p COVER CUTTER MACHINE shunt placement due to development of hydrocephalus. [...] one was scheduled for follow up from [place], one after a fall and one after [...] equipment to enhance the patient's a functional restorationist Ensure adequate nutrition and hydration Sleep: No issues Pain: Continue current regimen Discharge planning:. Recovery has been complicated by UTI and DVT. In a week or so, pending insurance recert. I spent greater than 25 minutes for services, including ndpr-yi-shrp encounter with the patient, discussion of the case, plan of care, and exam; and fwocgnq-ma-knok activities, such as reviewing pertinent natural remedy consultant documentation, recent therapy notes, laboratory and radiology studies, and discussion of case with care team including physician, nursing, case packer, and therapists. More than 50 % of time was spent on patient/family counseling or coordination ofcare. Documented By: Srinivas Patrciia MD 01/16/231453 Signed By: <Electronically signed by Srinivas Patricia MD> 01/16/23 1458 [facility] Work Phone: [phone]) [phone] Progress note Author Pilo Nieto [facility] January 15, 2023 5:03pm Note Date/Time January 15, 2023 8:0 5am [facility] [address] [place] [address] Neurology Progress Note Signed Patient: Taras Hayward MR#: [id number] : 1970 Acct:[id number] Age/Sex: 52 / M Adm Date: 3 Loc: Room: [address] [place] [address] Type: ADM IN Attending Dr: Srinivas Patricia [...] <Electronically signed by Pilo Nieto DO> 01/15/23 1749 [facility] Work Phone: 1([phone]) 722-295508-07-2023 Progress note Author Srinivas Patricia [facility] January 15, 2023 1:09pm Note Date/Time January 15, 2023 1:0 9pm [facility] [address] [place], [place] [id number] Physiatry(Rehab) Progress Note Signed Patient: Taras Hayward MR#: [id number] : 1970 Acct:[id number] Age/Sex: 52 / M Adm Date: 3 Loc: 5T Room: 9D1228-5 Type: ADM IN Attending Dr: Srinivas Patricia MD Copies to: ~ Date of Service: 01/15/2023 Subjective Subjective Narrative: Mr. Hayward is a 52 year old male presenting to inpatient rehab unit with functional impairments secondary to left cerebellar CVA. His past medical history is notable for obesity, hypertension, nephrolithiasis, gastric bypass surgery. Patient presented to [facility] emergency department via EMS with complaints of dizziness, nausea and vomiting, vertigo, and headache. He stated the symptoms started suddenly when he was sitting in the chair after returning from work thatday. CT[facility] head [facility] [place]. MRI of the brain showed late acute [...] demonstrating pseudocyst. On 12/30/2022 patient underwent a COVER CUTTER MACHINE shunt placement due to obstructive hydrocephalus and [...] generally healthy and worked full- time at [employer]. Interval History: Reports symptoms are improved today. [...] 08:44 01/15/23 08:44 Narrative: General: cooperative, comfortable HENMT Head: normal [...] 01/04/23 09:00 01/15/23 08:47 Aspirin 81 Mg Tablet.Dr PO 01/04/24 08:59 81 mg QAM LEANNA Administration Atorvastatin Calcium 10 mg 01/03/23 22:00 01/14/23 21:40 Atorvastatin 10 Mg Tablet PO 01/03/24 21:59 10 mg QHS LEANNA Administration Bacitracin 1 applic 01/09/23 21:00 01/15/23 08:46 Bacitracin Oint 14 Gm Tube TOPICAL 01/09/24 20:59 1 applic BID LEANNA Administration Bisacodyl 10 mg 01/03/23 15:41 Bisacodyl 10 Mg Supp.Rect [place] 01/03/24 15:40 DAILY PRN Constipation Carvedilol 12.5 [...] 15:41 Docusate Enema 283 Mg/5 Ml Enema [place] 07/25/24 15:40 DAILY PRN Constipation Lactulose 30 gm [...] DAILY LEANNA Administration Assessment/Plan Assessment/Plan (1) S/P COVER CUTTER MACHINE shunt: Code(s): Z98.2 - Presence of cerebrospinal [...] functional impairmentssecondary to left cerebellar CVA s/p COVER CUTTER MACHINE shunt placement due to development of hydrocephalus. [...] one was scheduled for follow up from [place], and one after starting anticoagulation. None demonstrate [...] equipment to enhance the patient's a functional restorationist Ensure adequate nutrition and hydration Sleep: No issues Pain: Continue current regimen Discharge planning:. Recovery has been complicated by UTI and DVT. In a week or so, pending insurance recert. I spent greater than 25 minutes for services, including hxuw-wi-mnbg encounter with the patient, discussion of the case, plan of care, and exam; and hyrmmya-lg-cenb activities, such as reviewing pertinent natural remedy consultant documentation, recent therapy notes, laboratory and radiology studies, and discussion of case with care team including physician, nursing, case packer, and therapists. More than 50 % of time was spent on patient/family counseling or coordination ofcare. Documented By: Srinivas Patricia MD 01/15/23 1304 Signed By: <Electronically signed by Srinivas Patricia MD> 01/15/23 8724 [facility] Work Phone: 1([phone]) 766-529908-06-2023 Consult note Author Megha Lacy [facility] January 14, 2023 12:14pm Note Date/Time January 14, 2023 10: 58am [facility] [address] [place] [address] Neurology Consult Note Signed Patient: Taras Hayward MR#: [id number] : 1970 Acct:[id number] Age/Sex: 52 / M Adm Date: 3 Loc: Room: [address] [place] [address] Type: ADM IN Attending Dr: Srinivas Patricia MD Copies to: Srinivas Patricia MD NO FAMILY PHYSICIAN Megha Lacy DO~ HPI Consult Date: 01/14/23 Cardiac Rehabilitation Program Director: Megha Lacy DO Reason for consult: cerebellar infarct s/p COVER CUTTER MACHINE shunt placement. Consult Narrative HPI: 52 year old male being seen in Neurology consultation at the request of Dr. Patricia. Patient is currently admitted to the inpatient rehab unit for intense rehab after a left cerebellar infarct resulting in significant edema that required decompressive surgery and later developed hydrocephalus requiring placement of COVER CUTTER MACHINE shunt. He has a prior history of obesity, hypertension, nephrolithiasis, gastric bypass surgery. The patient initally presented to [facility] emergency department via EMS with complaints of dizziness, nausea and vomiting, vertigo, and headache.? He stated the symptoms started suddenly when he was sitting in the chair after returning from work that day.? CTA head and neck demonstrated left vertebral artery occlusion near origin which prompted a transfer to [facility] in [place]. He was found to have an evolving [...] demonstrating pseudocyst.? On 12/30/2022 patient underwent a COVER CUTTER MACHINE shunt placement due to obstructive hydrocephalus and malignant edema, EVD removed at that time. The pateint's treatment and work up was completed in [place]. The patient was then transferred to [facility] for acute rehab. The patient has continued [...] Hydrocephalus Hypertension Obesity Tachycardia Surgical History S/P COVER CUTTER MACHINE shunt Social History Smoking Status: Never smoker [...] Moore Jr., D.O.01/12/2023 3:01 PM Dictation Location: [place] [address] Therapy Recommendations Therapy Recommendations: PT Recommendations PT [...] infarct for which she was seen at [facility] emergency room and then transferred to [place]. Sudden onset of dizziness headache and dysmetria. He did have complications of edema with shift requiring decompressive surgery and then hydrocephalus requiring COVER CUTTER MACHINE shunt placement. He is now at [facility] for rehab. He has had continued dizziness [...] - Hydrocephalus, unspecified Status: Acute (3) S/P COVER CUTTER MACHINE shunt: Code(s): Z98.2 - Presence of cerebrospinal fluid drainage device Status: Acute (4) Dizziness: Code(s): R42 - Dizziness and giddiness Status: Acute (5) Nausea: Code(s): R11.0 - Nausea Status: Acute (6) DVT, popliteal, acute: Code(s): I82.439 - Acute embolism and thrombosis of unspecified popliteal vein Status: Acute Documented By: Megha Lacy DO 01/14/23 1051 Signed By: <Electronically signed by DO Megha Lacy> 01/14/23 1214 [facility] Work Phone: 1([phone]) 455-643508-05-2023 Progress note Author Srinivas Patricia [facility] January 13, 2023 11:55am Note Date/Time January 13, 2023 10: 05am [facility] [address] [place] [address] Physiatry(Rehab) Progress Note Signed Patient: Taras Hayward MR#: [id number] : 1970 Acct:[id number] Age/Sex: 52 / M Adm Date: 3 Loc: Room: [address] [place] [address] Type: ADM IN Attending Dr: Srinivas Patricia MD Copies to: ~ Date of Service: 01/13/2023 Subjective Subjective Narrative: Mr. Hayward is a 52 year old male presenting to inpatient rehab unit with functional impairments secondary to left cerebellar CVA. His past medical history is notable for obesity, hypertension, nephrolithiasis, gastric bypass surgery. Patient presented to [facility] emergency department via EMS with complaints of dizziness, nausea and vomiting, vertigo, and headache. He stated the symptoms started suddenly when he was sitting in the chair after returning from work thatday. CTA head and neck demonstrated left vertebral artery occlusion near originwhich prompted a transfer to [facility] in [place]. MRI of the brain showed late acute [...] demonstrating pseudocyst. On 12/30/2022 patient underwent a COVER CUTTER MACHINE shunt placement due to obstructive hydrocephalus and [...] generally healthy and worked full- time at [employer]. Interval History: He was started on anticoagulation [...] 01/04/23 09:00 01/13/23 07:59 Aspirin 81 Mg Tablet.Dr PO 01/04/24 08:59 81 mg QAM LEANNA Administration Atorvastatin Calcium 10 mg 01/03/23 22:00 01/12/23 21:19 Atorvastatin 10 Mg Tablet PO 01/03/24 21:59 10 mg QHS LEANNA Administration Bacitracin 1 applic 01/09/23 21:00 01/13/23 08:02 Bacitracin Oint 14 Gm Tube TOPICAL 01/09/24 20:59 1 applic BID LEANNA Administration Bisacodyl 10 mg 01/03/23 15:41 Bisacodyl 10 Mg Supp.Rect [place] 01/03/24 15:40 DAILY PRN Constipation Carvedilol 12.5 mg 01/05/23 09:15 01/13/23 07:59 Carvedilol 12.5 Mg Tablet PO 01/05/24 09:14 12.5 mg Q12HR LEANNA Administration Docusate Sodium 100 mg 01/03/23 15:41 Docusate 100 Mg Capsule PO 01/03/24 15:40 BID PRN Constipation Docusate Sodium 283 mg 01/03/23 15:41 Docusate Enema 283 Mg/5 Ml Enema [place] 01/03/24 15:40 DAILY PRN Constipation Lactulose 30 [...] DAILY LEANNA Administration Assessment/Plan Assessment/Plan (1) S/P COVER CUTTER MACHINE shunt: Code(s): Z98.2 - Presence of cerebrospinal [...] functional impairmentssecondary to left cerebellar CVA s/p COVER CUTTER MACHINE shunt placement due to development of hydrocephalus. [...] equipment to enhance the patient's a functional restorationist Ensure adequate nutrition and hydration Sleep: No issues Pain: Continue current regimen Discharge planning: Home with partner next week, pending insurance recertification. I spent greater than 25 minutes for services, including pfup-vy-ktus encounter with the patient, discussion of the case, plan of care, and exam; and lrafqjz-tv-bhpw activities, such as reviewing pertinent natural remedy consultant documentation, recent therapy notes, laboratory and radiology studies, and discussion of case with care team including physician, nursing, case packer, andtherapists. More than 50 % of time was spent on patient/family counseling or coordination ofcare. Plan: \ Documented By: Srinivas Patricia MD 01/13/23 1005 Signed By: <Electronically signed by Srinivas Patricia MD> 01/13/23 1398 [facility] Work Phone: 1(840) 102-818308-04-2023 Progress note Author Srinivas Patricia [facility] January 12, 2023 8:34pm Note Date/Time January 11, 2023 2:1 6pm [facility] [address] [place] [address] Physiatry(Rehab) Progress Note Signed Patient: Taras Hayward MR#: [id number] : 1970 Acct:[id number] Age/Sex: 52 / M Adm Date: 3 Loc: Room: 1F7988-3 Type: ADM IN Attending Dr: Srinivas Patricia [...] nephrolithiasis, gastric bypass surgery. Patient presented to [facility] emergency department via EMS with complaints of dizziness, nausea and vomiting, vertigo, and headache. He stated the symptoms started suddenly when he was sitting in the chair after returning from work thatday. CTA head and neck demonstrated [facility] in [place]. MRI of the brain showed late acute [...] demonstrating pseudocyst. On 12/30/2022 patient underwent a COVER CUTTER MACHINE shunt placement due to obstructive hydrocephalus and [...] generally healthy and worked full- time at [employer]. Interval History: Right leg venous ultrasound preliminary [...] cooperative Insight: Good Judgment: Good Objective <Tisha Cardona, SATELLITE DISH INSTALLER - Last Filed: 01/11/23 14:16> Labs 01/09/23 05:51 01/09/23 05:51 Labs: Laboratory Results - last 24 hr 01/11/23 11:30 Urine Color Dark yellow A Urine Appearance Cloudy A Urine pH 6.0 Ur Specific Marshall 1.019 Urine Protein Trace H Urine Glucose [...] 01/04/23 09:00 01/11/23 08:41 Aspirin 81 Mg Tablet. PO 01/04/24 08:59 81 mg QAM LEANNA Administration Atorvastatin Calcium 10 mg 01/03/23 22:00 01/10/23 20:43 Atorvastatin 10 Mg Tablet PO 01/03/24 21:59 10 mg QHS LEANNA Administration Bacitracin 1 applic 01/09/23 21:00 01/11/23 08:42 Bacitracin Oint 14 Gm Tube TOPICAL 01/09/24 20:59 1 applic BID LEANNA Administration Bisacodyl 10 mg 01/03/23 15:41 Bisacodyl 10 Mg Supp.Rect [place] 01/03/24 15:40 DAILY PRN Constipation Carvedilol 12.5 mg 01/05/23 09:15 01/11/23 08:41 Carvedilol 12.5 Mg Tablet PO 01/05/24 09:14 12.5 mg Q12HR LEANNA Administration Docusate Sodium 100 mg 01/03/23 15:41 Docusate 100 Mg Capsule PO 01/03/24 15:40 BID PRN Constipation Docusate Sodium 283 mg 01/03/23 15:41 Docusate Enema 283 Mg/5 Ml Enema [place] 01/03/24 15:40 DAILY PRN Constipation Lactulose 30 [...] mg DAILY LEANNA Administration Assessment/Plan <Tisha Cardona, RADHA - Last Filed: 01/11/23 14:16> Assessment/Plan (1) S/P COVER CUTTER MACHINE shunt: Code(s): Z98.2 - Presence of cerebrospinal [...] functional impairmentssecondary to left cerebellar CVA s/p COVER CUTTER MACHINE shunt placement due to development of hydrocephalus. [...] equipment to enhance the patient's a functional restorationist Ensure adequate nutrition and hydration Sleep: No issues Pain: Continue current regimen Discharge planning: Home with partner next week, pending insurance recertification. I spent greater than 15 minutes for services, including xdnw-wu-lnfj encounter with the patient, discussion of the case, plan of care, and exam; and euictzl-bt-exjs activities, such as reviewing pertinent natural remedy consultant documentation, recent therapy notes, laboratory and radiology studies, and discussion of case with care team including physician, nursing, case packer, and therapists. More than 50 % of time was spent on patient/family counseling or coordination ofcare. <Srinivas Patricia MD - Last Filed: 01/12/23 20:34> Assessment/Plan (1) S/P COVER CUTTER MACHINE shunt: (2) Hydrocephalus: (3) Cerebellar infarct: (4) Hypertension: (5) Obesity (BMI 35.0-39.9 without comorbidity): (6) Tachycardia: (7) Impaired mobility and activities of daily living: Plan: I reviewed the history and the relevant portions of the chart, including currentorders, allied health and natural remedy consultant notes, labs/imaging and plan of care as above. Documented By: Tisha Cardona APRN 01/11/23 1 405 Signed By: <Electronically signed by RADHA Cardona> 01/11/23 1416 <Electronically signed by Srinivas Patricia MD> 01/12/232033 [facility] Work Phone: 1(469) 398-966308-04-2023 Consult note Author Gerardo Miranda [facility] January 12, 2023 11:49am Note Date/Time January 11, 2023 4:2 8pm [facility] [address] [place] [address] Vascular Surgery Consult Note Signed Patient: Taras Hayward MR#: [id number] : 1970 Acct:[id number] Age/Sex: 52 / M Adm Date: 3 Loc: 5T Room: [address] [place] [address] Type: ADM IN Attending Dr: Srinivas Patricia [...] for hydrocephalus patient had recent placement of COVER CUTTER MACHINE shunt in [place]. He currently suffers from ongoing nausea and [...] Hydrocephalus Hypertension Obesity Tachycardia Surgical History S/P COVER CUTTER MACHINE shunt Social History Smoking Status: Never smoker [...] Cloudy A Urine pH 6.0 Ur Specific [place] 1.019 Urine Protein Trace H Urine Glucose (UA) Normal Urine Ketones 1+ H Urine Occult Blood Trace H Urine Nitrite Negative Urine Bilirubin Negative Urine Urobilinogen Normal Ur Leukocyte Esterase 4+ H Urine RBC 10-19 H Urine WBC 50-100 H Ur Squamous Epith Cells None seen Urine Bacteria 4+ H Hyaline Casts 0-8 A&P - Vascular (1) S/P COVER CUTTER MACHINE shunt: Code(s): Z98.2 - Presence of cerebrospinal [...] <Electronically signed by MD Gerardo Miranda> 01/12/23 1148 [facility] Work Phone: 1(152) 742-933808-03-2023 Progress note Author Srinivas Patricia [facility] January 11, 2023 8:01am Note Date/Time January 10, 2023 3:0 5pm [facility] [address] [place] [address] Physiatry(Rehab) Progress Note Signed Patient: Taras Hayward MR#: [id number] : 1970 Acct:[id number] Age/Sex: 52 / M Adm Date: 3 Loc: Room: [address] [place] [address] Type: ADM IN Attending Dr: Srinivas Patricia MD Copies to: ~ Date of Service: 01/10/2023 Subjective Subjective Narrative: Mr. Hayward is a 52 year old male presenting to inpatient rehab unit with functional impairments secondary to left cerebellar CVA. His past medical history is notable for obesity, hypertension, nephrolithiasis, gastric bypass surgery. Patient presented to [facility] emergency department via EMS with complaints of dizziness, nausea and vomiting, vertigo, and headache. He stated the symptoms started suddenly when he was sitting in the chair after returning from work thatday. CTA head and neck demonstrated left vertebral artery occlusion near originwhich prompted a transfer to [facility] in [place]. MRI of the brain showed late acute [...] demonstrating pseudocyst. On 12/30/2022 patient underwent a COVER CUTTER MACHINE shunt placement due to obstructive hydrocephalus and [...] generally healthy and worked full- time at [employer]. Interval History: Ambulatory 180' and able to do one flight of stairs with therapy. Vitals are stable, no new focal neurologic deficit. Partner at bedside, notes patient seems more fatigued and was a little confused this morning. CT head last two days largely unremarkable, results to NSGY in [place]. Family concerned about mood, wonders if patient [...] 01/04/23 09:00 01/10/23 08:42 Aspirin 81 Mg Tablet. PO 01/04/24 08:59 81 mg QAM LEANNA Administration Atorvastatin Calcium 10 mg 01/03/23 22:00 01/09/23 20:13 Atorvastatin 10 Mg Tablet PO 01/03/24 21:59 10 mg QHS LEANNA Administration Bacitracin 1 applic 01/09/23 21:00 01/10/23 08:43 Bacitracin Oint 14 Gm Tube TOPICAL 01/09/24 20:59 1 applic BID LEANNA Administration Bisacodyl 10 mg 01/03/23 15:41 Bisacodyl 10 Mg Supp.Rect [place] 01/03/24 15:40 DAILY PRN Constipation Carvedilol 12.5 mg 01/05/23 09:15 01/10/23 08:42 Carvedilol 12.5 Mg Tablet PO 01/05/24 09:14 12.5 mg Q12HR LEANNA Administration Docusate Sodium 100 mg 01/03/23 15:41 Docusate 100 Mg Capsule PO 01/03/24 15:40 BID PRN Constipation Docusate Sodium 283 mg 01/03/23 15:41 Docusate Enema 283 Mg/5 Ml Enema [place] 01/03/24 15:40 DAILY PRN Constipation Lactulose 30 [...] PRN PRN Flush Assessment/Plan Assessment/Plan (1) S/P COVER CUTTER MACHINE shunt: Code(s): Z98.2 - Presence of cerebrospinal [...] functional impairmentssecondary to left cerebellar CVA s/p COVER CUTTER MACHINE shunt placement due to development of hydrocephalus. [...] equipment to enhance the patient's a functional restorationist Ensure adequate nutrition and hydration Sleep: No issues Pain: Continue current regimen Discharge planning: Home with partner next week, pending insurance recertification. Plan: I completed a substantive portion of this encounter, the medical decision makingportion of this note in its entirety, including Allied health note review, nursing note review, natural remedy consultant note review, discussion with nursing and case management, and more than 50% of my time was spent on counseling and coordination of care, time spent 25 minutes Patient was personally seen by me, Dr. Patricia, on the day of encounter, reviewed the history and the relevant portions of the chart, including current orders, allied health and natural remedy consultant notes, labs/imaging and performed coronado elements of exam and I formulated the plan of care and facilitated the medical decision making. Documented By: Srinivas Patricia MD 01/10/23 1505 Signed By: <Electronically signed by Srinivas Patricia MD> 01/11/23 0801 [facility] Work Phone: 1([phone]) 696-578008-01-2023 Progress note Author Srinivas Patricia [facility] January 09, 2023 2:58pm Note Date/Time January 09, 2023 12: 43pm [facility] [address] [place] [address] Physiatry(Rehab) Progress Note Signed Patient: Taras Hayward MR#: [id number] : 1970 Acct:[id number] Age/Sex: 52 / M Adm Date: 3 Loc: Room: [address] [place] [address] Type: ADM IN Attending Dr: Srinivas Patricia [...] nephrolithiasis, gastric bypass surgery. Patient presented to [facility] emergency department via EMS with complaints of dizziness, nausea and vomiting, vertigo, and headache. He stated the symptoms started suddenly when he was sitting in the chair after returning from work thatday. CTA head and neck demonstrated left vertebral artery occlusion near originwhich prompted a transfer to [facility] in [place]. MRI of the brain showed late acute [...] demonstrating pseudocyst. On 12/30/2022 patient underwent a COVER CUTTER MACHINE shunt placement due to obstructive hydrocephalus and [...] generally healthy and worked full- time at [employer]. Interval History: Yuniel sustained a fall in [...] Objective <Tisha Cardona APRN - Last Filed: 01/09/23 13:29> Labs 01/09/23 05:51 01/09/23 05:51 Labs: Laboratory Results - last 24 hr 01/09/23 01/09/23 05:51 05:51 Corrected WBC 6.4 Uncorrected WBC Count 6.4 RBC 4.46 Hgb 12.2 L Hct 37.8 L MCV 84.9 MCH 27.4 L MCHC 32.3 L RDW 14.3 Plt Count 185 MPV 8.8 Neut % (Auto) 54.8 Lymph % (Auto) 36.0 [place] % (Auto) 7.3 Eos % (Auto) 1.6 Baso % (Auto) 0.3 Nucleat RBC Rel Count 0.2 Neut # (Auto) 3.5 Lymph # (Auto) 2.3 [place] # (Auto) 0.5 Eos # (Auto) 0.1 [...] 01/04/23 09:00 01/09/23 11:12 Aspirin 81 Mg Tablet. PO 01/04/24 08:59 81 mg QAM LEANNA Administration Atorvastatin Calcium 10 mg 01/03/23 22:00 01/08/23 20:08 Atorvastatin 10 Mg Tablet PO 01/03/24 21:59 10 mg QHS LEANNA Administration Bisacodyl 10 mg 01/03/23 15:41 Bisacodyl 10 Mg Supp.Rect [place] 01/03/24 15:40 DAILY PRN Constipation Carvedilol 12.5 mg 01/05/23 09:15 01/09/23 11:13 Carvedilol 12.5 Mg Tablet PO 01/05/24 09:14 12.5 mg Q12HR LEANNA Administration Docusate Sodium 100 mg 01/03/23 15:41 Docusate 100 Mg Capsule PO 01/03/24 15:40 BID PRN Constipation Docusate Sodium 283 mg 01/03/23 15:41 Docusate Enema 283 Mg/5 Ml Enema [place] 01/03/24 15:40 DAILY PRN Constipation Lactulose 30 [...] 01/03/24 15:40 PRN PRN Flush Assessment/Plan <Tisha Cardona, RADHA - Last Filed: 01/09/23 13:29> Assessment/Plan (1) S/P COVER CUTTER MACHINE shunt: Code(s): Z98.2 - Presence of cerebrospinal [...] functional impairmentssecondary to left cerebellar CVA s/p COVER CUTTER MACHINE shunt placement due to development of hydrocephalus. [...] results were faxed to patient's neurosurgeon in [place]. * Left upper lip laceration will be [...] equipment to enhance the patient's a functional restorationist Ensure adequate nutrition and hydration Sleep: No issues Pain: Continue current regimen Discharge planning: Home with partner and 7 to 10 days. I spent greater than 15 minutes for services, including [id number] encounter with the patient, discussion of the case, plan of care, and exam; and [id number] activities, such as reviewing pertinent natural remedy consultant documentation, recent therapy notes, laboratory and radiology studies, and discussion of case with care team including physician, nursing, case packer, and therapists. More than 50 % of time was spent on patient/family counseling or coordination ofcare. <Srinivas Patricia MD - Last Filed: 01/09/23 14:58> Assessment/Plan (1) S/P COVER CUTTER MACHINE shunt: (2) Hydrocephalus: (3) Cerebellar infarct: (4) Hypertension: (5) Obesity (BMI 35.0-39.9 without comorbidity): (6) Tachycardia: (7) Impaired mobility and activities of daily living: Plan: I completed a substantive portion of this encounter, the medical decision makingportion of this note in its entirety, including Allied health note review, nursing note review, natural remedy consultant note review, discussion with nursing and case management, and more than 50% of my time was spent on counseling and coordination of care, time spent 25 minutes Patient was personally seen by me, Dr. Patricia, on the day of encounter, reviewed the history and the relevant portions of the chart, including current orders, allied health and natural remedy consultant notes, labs/imaging and performed coronado elements [...] <Electronically signed by Srinivas Patricia MD> 01/09/23 1458 [facility] Work Phone: [phone]) 910-579807-31-2023 Progress note Author Srinivas Patricia [facility] January 08, 2023 1:09pm Note Date/Time January 08, 2023 10:5 0am [facility] [address] [place] [address] Physiatry(Rehab) Progress Note Signed Patient: Taras Hayward MR#: [id number] : 1970 Acct:[id number] Age/Sex: 52 / M Adm Date: 3 Loc: Room: [address] [place] [address] Type: ADM IN Attending Dr: Srinivas Patricia [...] nephrolithiasis, gastric bypass surgery. Patient presented to [facility] emergency department via EMS with complaints of dizziness, nausea and vomiting, vertigo, and headache. He stated the symptoms started suddenly when he was sitting in the chair after returning from work thatday. CTA head and neck demonstrated left vertebral artery occlusion near originwhich prompted a transfer to [facility] in [place]. MRI of the brain showed late acute [...] demonstrating pseudocyst. On 12/30/2022 patient underwent a COVER CUTTER MACHINE shunt placement due to obstructive hydrocephalus and [...] generally healthy and worked full- time at [employer]. Interval History: Seen and examined in his room while resting in bed. He feels nauseated and somewhat dizzy this morning. Reports mild headache. No new neurological deficits. His vitals are stable, BP within normal limits. He was medicated with some Zofran earlier. We will monitor symptoms closely. Repeat CT head if symptoms do not improve or worsen. Chronic conditions stable. Exam <Tisha Cardona APRN - Last Filed: 01/08/23 10:54> Physical Exam [...] cooperative Insight: Good Judgment: Good Objective <Tisha Agudeloswapna, SATELLITE DISH INSTALLER - Last Filed: 01/08/23 10:54> Labs 01/04/23 [...] 01/04/23 09:00 01/08/23 09:35 Aspirin 81 Mg Tablet.Dr PO 01/04/24 08:59 81 mg QAM LEANNA Administration Atorvastatin Calcium 10 mg 01/03/23 22:00 01/07/23 20:24 Atorvastatin 10 Mg Tablet PO 01/03/24 21:59 10 mg QHS LEANNA Administration Bisacodyl 10 mg 01/03/23 15:41 Bisacodyl 10 Mg Supp.Rect [place] 01/03/24 15:40 DAILY PRN Constipation Carvedilol 12.5 mg 01/05/23 09:15 01/08/23 09:35 Carvedilol 12.5 Mg Tablet PO 01/05/24 09:14 12.5 mg Q12HR LEANNA Administration Docusate Sodium 100 mg 01/03/23 15:41 Docusate 100 Mg Capsule PO 01/03/24 15:40 BID PRN Constipation Docusate Sodium 283 mg 01/03/23 15:41 Docusate Enema 283 Mg/5 Ml Enema [place] 01/03/24 15:40 DAILY PRN Constipation Lactulose 30 [...] 01/03/24 15:40 PRN PRN Flush Assessment/Plan <Tisha Cardona, RADHA - Last Filed: 01/08/23 10:54> Assessment/Plan (1) S/P COVER CUTTER MACHINE shunt: Code(s): Z98.2 - Presence of cerebrospinal [...] functional impairmentssecondary to left cerebellar CVA s/p COVER CUTTER MACHINE shunt placement due to development of hydrocephalus. [...] equipment to enhance the patient's a functional restorationist Ensure adequate nutrition and hydration Sleep: No issues Pain: Continue current regimen Discharge planning: Home with partner and 7 to 10 days. I spent greater than 15 minutes for services, including [id number] encounter with the patient, discussion of the case, plan of care, and exam; and urcoscj-yk-[id number] activities, such as reviewing pertinent natural remedy consultant documentation, recent therapy notes, laboratory and radiology studies, and discussion of case with care team including physician, nursing, case packer, and therapists. More than 50 % of time was spent on patient/family counseling or coordination ofcare. <Srinivas Patricia MD - Last Filed: 01/08/23 13:09> Assessment/Plan (1) S/P COVER CUTTER MACHINE shunt: (2) Hydrocephalus: (3) Cerebellar infarct: (4) Hypertension: (5) Obesity (BMI 35.0-39.9 without comorbidity): (6) Tachycardia: (7) Impaired mobility and activities of daily living: Plan: I completed a substantive portion of this encounter, the medical decision makingportion of this note in its entirety, including Allied health note review, nursing note review, natural remedy consultant note review, discussion with nursing and case management, and more than 50% of my time was spent on counseling and coordination of care, time spent 20 minutes Patient was personally seen by me, Dr. Patricia, on the day of encounter, reviewed the history and the relevant portions of the chart, including current orders, allied health and natural remedy consultant notes, labs/imaging and performed coronado elements [...] <Electronically signed by Srinivas Patricia MD> 01/08/23 1309 [facility] Work Phone: 1(380) [phone] Progress note Author Srinivas Patricia [facility] January 05, 2023 2:39pm Note Date/Time January 05, 2023 2:39 pm [facility] [address] [place] [address] Physiatry(Rehab) Progress Note Signed Patient: Taras Hayward MR#: [id number] : 1970 Acct:[id number] Age/Sex: 52 / M Adm Date: 3 Loc: Room: 6Q4668-2 Type: ADM IN Attending Dr: Srinivas Patricia MD Copies to: ~ Date of Service: 01/05/2023 Subjective Subjective Narrative: Mr. Hayward is a 52 year old male presenting to inpatient rehab unit with functional impairments secondary to left cerebellar CVA. His past medical history is notable for obesity, hypertension, nephrolithiasis, gastric bypass surgery. Patient presented to [facility] emergency department via EMS with complaints of dizziness, nausea and vomiting, vertigo, and headache. He stated the symptoms started suddenly when he was sitting in the chair after returning from work thatday. CTA head and neck demonstrated left vertebral artery occlusion near originwhich prompted a transfer to [facility] in [place]. MRI of the brain showed late acute [...] demonstrating pseudocyst. On 12/30/2022 patient underwent a COVER CUTTER MACHINE shunt placement due to obstructive hydrocephalus and [...] generally healthy and worked full- time at [employer]. Interval History: No events overnight, tolerating therapy. [...] 01/04/23 09:00 01/05/23 09:40 Aspirin 81 Mg Tablet. PO 01/04/24 08:59 81 mg QAM LEANNA Administration Atorvastatin Calcium 10 mg 01/03/23 22:00 01/04/23 21:33 Atorvastatin 10 Mg Tablet PO 01/03/24 21:59 10 mg QHS LEANNA Administration Bisacodyl 10 mg 01/03/23 15:41 Bisacodyl 10 Mg Supp.Rect [place] 01/03/24 15:40 DAILY PRN Constipation Carvedilol 12.5 mg 01/05/23 09:15 01/05/23 09:40 Carvedilol 12.5 Mg Tablet PO 01/05/24 09:14 12.5 mg Q12HR LEANNA Administration Docusate Sodium 100 mg 01/03/23 15:41 Docusate 100 Mg Capsule PO 01/03/24 15:40 BID PRN Constipation Docusate Sodium 283 mg 01/03/23 15:41 Docusate Enema 283 Mg/5 Ml Enema [place] 01/03/24 15:40 DAILY PRN Constipation Lactulose 30 [...] PRN PRN Flush Assessment/Plan Assessment/Plan (1) S/P COVER CUTTER MACHINE shunt: Code(s): Z98.2 - Presence of cerebrospinal [...] functional impairmentssecondary to left cerebellar CVA s/p COVER CUTTER MACHINE shunt placement due to development of hydrocephalus. [...] equipment to enhance the patient's a functional restorationist Ensure adequate nutrition and hydration Sleep: No issues Pain: Continue current regimen Discharge planning: Home with partner and 7 to 10 days. Plan: I completed a substantive portion of this encounter, the medical decision makingportion of this note in its entirety, including Allied health note review, nursing note review, natural remedy consultant note review, discussion with nursing and case management, and more than 50% of my time was spent on counseling and coordination of care, time spent 65 minutes Patient was personally seen by me, Dr. Patricia, on the day of encounter, reviewed the history and the relevant portions of the chart, including current orders, allied health and natural remedy consultant notes, labs/imaging and performed coronado elements of exam and I formulated the plan of care and facilitated the medical decision making. Documented By: Srinivas Patricia MD 01/05/231437 Signed By: <Electronically signed by Srinivas Patricia MD> 01/05/23 1439 [facility] Work Phone: 1(215) 391-336207-28-2023 History and physical note Author Srinivas Patricia [facility] January 05, 2023 10:29am Note Date/Time January 04, 2023 10:0 8am [facility] [address] [place] [address] Physiatry (Rehab) H&P Signed Patient: Taras Hayward MR#: [id number] : 1970 Acct:[id number] Age/Sex: 52 / M Adm Date: 3 Loc: Room: [address] [place] [address] Type: ADM IN Attending Dr: Srinivas Patricia [...] nephrolithiasis, gastric bypass surgery. Patient presented to [facility] emergency department via EMS with complaints of dizziness, nausea and vomiting, vertigo, and headache. He stated the symptoms started suddenly when he was sitting in the chair after returning from work thatday. CTA head and neck demonstrated left vertebral artery occlusion near originwhich prompted a transfer to [facility] in [place]. MRI of the brain showed late acute [...] demonstrating pseudocyst. On 12/30/2022 patient underwent a COVER CUTTER MACHINE shunt placement due to obstructive hydrocephalus and [...] generally healthy and worked full- time at [employer]. <Srinivas Patricia MD - Last Filed: 01/05/23 10:29> Etiologic Diagnosis/Impairment Group: Stroke Chief complaint: weakness and difficulty functioning History of Present Illness: Mr. Hayward is a 52 year old male presenting to inpatient rehab unit with functional impairments secondary to left cerebellar CVA. His past medical history is notable for obesity, hypertension, nephrolithiasis, gastric bypass surgery. Patient presented to [facility] emergency department via EMS with complaints of dizziness, nausea and vomiting, vertigo, and headache. He stated the symptoms started suddenly when he was sitting in the chair after returning from work thatday. CTA head and neck demonstrated left vertebral artery occlusion near originwhich prompted a transfer to [facility] in [place]. MRI of the brain showed late acute [...] demonstrating pseudocyst. On 12/30/2022 patient underwent a COVER CUTTER MACHINE shunt placement due to obstructive hydrocephalus and [...] generally healthy and worked full- time at [employer]. PMFSH <Tisha Cardona APRN - Last Filed: [...] 10 Mg Tablet) 10 mg PO QHS LEANNA Stop: 01/03/24 21:59 Last Admin: 01/03/23 21:15 Dose: 10 mg Aspirin (Aspirin 81 Mg Tablet.) [facility] Stop: 01/04/24 08:59 Last Admin: 01/04/23 08:15 Dose: 81 mg Atorvastatin Calcium (Atorvastatin 10 Mg Tablet) 10 mg PO QHS LEANNA Stop: 01/03/24 21:59 Last Admin: 01/03/23 21:15 Dose: 10 mg Bisacodyl (Bisacodyl 10 Mg Supp.Rect) 10 mg [place] DAILY PRN PRN Reason: Constipation Stop: 01/03/24 15:40 Carvedilol (Carvedilol 6.25 Mg Tablet) 6.25 mg PO Q12H LEANNA Stop: 01/03/24 15:59 Last Admin: 01/04/23 05:25 Dose: 6.25 mg Docusate Sodium (Docusate 100 Mg Capsule) 100 mg PO BID PRN PRN Reason: Constipation Stop: 01/03/24 15:40 Docusate Sodium (Docusate Enema 283 Mg/5 Ml Enema) 283 mg [place] DAILY PRN PRN Reason: Constipation Stop: 01/03/24 15:40 Lactulose (Lactulose 20 Gm/30 Ml Udc) 30 gm PO DAILY PRN PRN Reason: Constipation Stop: 01/03/24 15:40 Melatonin (Melatonin 3 Mg Tablet) 3 mg PO HS [facility] Stop: 01/03/24 21:59 Last Admin: 01/03/23 21:15 [...] 1 Tab Tablet) 2 tab PO BID [facility] Stop: 01/03/24 20:59 Last Admin: 01/04/23 08:15 Dose: 2 tab Sennosides (Sennosides 8.6 Mg Tablet) 2 tab PO DAILY@12 PRN PRN Reason: If no BM in 2 days Stop: 01/04/24 11:59 Sodium Chloride (Sodium Chloride 0.9 % 10 Ml Syringe) 0 ml IV-PUSH PRN PRN PRN Reason: Flush Stop: 01/03/24 15:40 Exam <Tisha Cardona APRN - Last Filed: 01/04/23 11:34> Physical Exam [...] % (Auto) 55.0 Lymph % (Auto) 33.7 [place] % (Auto) 9.3 Eos % (Auto) 1.6 Baso % (Auto) 0.4 Nucleat RBC Rel Count 0.1 Neut # (Auto) 4.5 Lymph # (Auto) 2.8 [place] # (Auto) 0.8 Eos # (Auto) 0.1 [...] 2 weeks Expected Discharge Destination: Home Rehabilitation [facility]: 01.2 Primary Diagnosis: Left cerebellar stroke To have patient become more independent and to return home. Medical/ Functional Prognosis: Good Anticipated Functional Outcomes/Goals and Interventions: 1.Therapy Functional Outcome/Goal: Anticipate independent for bed mobility Anticipated interventions: Physician management, PT, OT, PIZZAMAKER, , Dietitian, RehabNursing, Case management 2. Therapy Functional Outcome/Goal: Anticipate independent for transfers Anticipated interventions: Physician management, PT, OT, PIZZAMAKER, Case management, Dietitian, Rehab Nursing 3. Therapy Functional Outcome/Goal: Anticipate independent for ambulation Anticipated interventions: Physician management, PT, OT, PIZZAMAKER Case management, Dietitian, Rehab Nursing 4.Therapy Functional Outcome/Goal: Anticipate independent for self-care Anticipated interventions: Physician management, PT, OT, PIZZAMAKER, Case management, Dietitian, Rehab Nursing 5.Therapy Functional Outcome/Goal: Anticipate independent for functional cognition and swallowing Anticipated interventions: Physician management, PT, OT, PIZZAMAKER, Case management, Dietitian, Rehab Nursing Required Therapy [...] additional therapy on as needed basis. Comments: PIZZAMAKER to evaluate and treat patient?s cognition, language and communication skills, assess swallow function. Other: Dietitian, Rehab nursing, Wound, P&O, Neuropsychology as needed RATIONALE FOR IRF ADMISSION: Patient has both medical and functional complexities that require 24 hour daily monitoring and intervention from Electro Mechanical Assembler as well as other consulting physicians including internal medicine as well as 24 hour daily clay temperer nursing - for medical safe / optimal management. Patient requires interdisciplinary therapy team rehabilitation care including OT, PT, PIZZAMAKER, SW, Psychology, Rehab Nursing, requires and can tolerate at least 3 hours of daily OT and PT therapy at least 5 days weekly. The following medical conditions significantly impact the rehabilitation process andare being addressed daily and can not be managed at home or in a lesser intense medical setting: Refer to above problem oriented plan of care Assessment/Plan <Tisha Cardona, RADHA - Last Filed: 01/04/23 11:34> (1) S/P COVER CUTTER MACHINE shunt: Code(s): Z98.2 - Presence of cerebrospinal [...] functional impairmentssecondary to left cerebellar CVA s/p COVER CUTTER MACHINE shunt placement due to development of hydrocephalus. [...] twice daily from 25 mg bid at [facility] due to hypotension. Will monitor for now, [...] equipment to enhance the patient's a functional restorationist Ensure adequate nutrition and hydration Sleep: No issues Pain: Continue current regimen Discharge planning: Home with partner and 7 to 10 days. I spent greater than 45 minutes for services, including raus-pq-mjqj encounter with the patient, discussion of the case, plan of care, and exam; and yrpgobs-gq-evwh activities, such as reviewing pertinent natural remedy consultant documentation, recent therapy notes, laboratory and radiology studies, and discussion of case with care team including physician, nursing, case packer, and therapists. More than 50 % of time was spent on patient/family counseling or coordination ofcare. <Srinivas Patricia MD - Last Filed: 01/05/23 10:29> (1) S/P COVER CUTTER MACHINE shunt: (2) Hydrocephalus: (3) Cerebellar infarct: (4) Hypertension: (5) Obesity (BMI 35.0-39.9 without comorbidity): (6) Tachycardia: (7) Impaired mobility and activities of daily living: Plan: I completed a substantive portion of this encounter, the medical decision makingportion of this note in its entirety, including Allied health note review, nursing note review, natural remedy consultant note review, discussion with nursing and case management, and more than 50% of my time was spent on counseling and coordination of care, time spent 65 minutes Patient was personally seen by me, Dr. Patricia, on the day of encounter, reviewed the history and the relevant portions of the chart, including current orders, allied health and natural remedy consultant notes, labs/imaging and performed coronado elements of exam and I formulated the plan of care and facilitated the medical decision making. Documented By: Tisha Cardona APRN 01/04/23 1 007 Signed By: <Electronically signed by RADHA Cardona> 01/04/23 1134 <Electronically signed by Srinivas Patricia MD> 01/05/23 1029 [facility] Work Phone: 1(150) 774-859304-10-2023 Evaluation note* Encounter Date Diagnosis Assessment Notes Treatment Notes Treatment Clinical Notes Sep, Essential hypertension (ICD-10 - I10) [employer] Other 03-23-2023 Evaluation note* Encounter Date Diagnosis [...] status (ICD-10 - Z98.84) Monitor vitamin levels. [employer] Other 02-27-2023 Evaluation note* Encounter Date Diagnosis Assessment Notes Treatment Notes Treatment Clinical Notes Jul, Heart palpitations (ICD-10 - R00.2) [facility] Other 02-08-2023 Hospital Discharge instructions Patient Education 07/19/2022 15:38:46 Kidney Stones, Ewom-jk-Unpt Kidney Stones Kidney stones are rock-like masses [...] Follow these instructions at home: Medicines Take wqmk-jum-rkdrduo and prescription medicines only as told by [...] 11/13/2008 Document Revised: 10/14/2019 Document Reviewed: 10/14/2019 Loku Patient Education 2019 [employer]. Follow Up Care 05/31/2022 14:29:12 With:Konrad LILLY MD, URL Address: [address] [address]- When: Unknown [facility] 12-21-2022 Hospital Discharge instructions Patient Education 05/31/2022 14:26:21 [...] Care 05/24/2022 15:04:09 With:Konrad LILLY Address: [address] [facility] [address] [address]- Business (1) When:6 weeks Comments:Call for followup appointment. A bladder scan will be performed at that visit. Poonam Rahman [facility]12-15-2022 Hospital Discharge instructions Follow Up Care 05/25/2022 09:10:49 With:Konrad LILLY MD, URL Address: [address] [address]- When: Unknown [facility] [id number] NoteHNO ID: [id number] Author: Brittany Sherman MD Service: Urology Author Type: Resident Type: Progress Notes Filed: 05/24/2022 6:56 AM Note Text: [facility] UROLOGY PROGRESS NOTE Name: Taras Hayward Bed: M081 012/M081-12 Date: 05/24/2022 After Hours [facility] Urology Service Pager: [phone] ASSESSMENT AND PLAN Taras Hayward is a [...] Brittany Sherman MD Urology Resident PGY-3 Pager: [phone] For weekend or after hours issues [place] [phone] SUBJECTIVE As above Objective Vital Signs BP 133/79 Pulse 78 Temp 36.2 ?C (97.2 ?F) (Temporal) Resp 18 Ht 190.5 cm (6' 3 ) Wt (!) 160.4 kg (353 lb 9.9 oz) SpO2 97% BMI 44.20 kg/m? Body mass index is 44.2 kg/m?. Input and Output Date 05/23/22699 - 05/24/22 0659 05/24/22 07 - 05/25/22 0659 Shift 3723-7650 0443-1933 9994-1052 24 Hour Total 3325-3074 3047-0400 0645-0145 24 Hour Total INTAKE PO 2250 9041 668 7594 PO 2250 0700 193 9284 IV 1276 1769 1345 4390 Volume (mL) [...] 0.97 1.02 GLUC 96 144* 143* [facility]-2022 NoteHNO ID: [id number] Author: Harsh Coffey MD Service: Urology Author Type: Physician Type: Progress Notes Filed: 05/23/2022 6:06 PM Note Text: [facility] UROLOGY PROGRESS NOTE Name: Taras Hayward Bed: M081 012/M081-12 Date: 05/23/2022 After Hours [facility] Urology Service Pager: [phone] ASSESSMENT AND PLAN Taras Hayward is a [...] cont home tizanidine Jie Hurt MD Resident [facility] [place] Personal Pager: [phone] For calls on nights and weekends, please page the Urology On-Call pager [phone] 7:48 AM, 05/23/2022 SUBJECTIVE - Feels well [...] site and no other issues. If urine trade sales assistant tomorrow, then kramer out for voiding trial [...] Harsh Coffey MD Director, Surgical Stone Disease [facility] Pager [phone] 05/23/2022[facility]12-12-2022 NoteHNO ID: [id number] Author: Jie Hurt MD Service: Urology Author Type: Resident Type: Progress Notes Filed: 05/22/2022 11:09 PM Note Text: [facility] UROLOGY PROGRESS NOTE Name: Taras Hayward Bed: M081 012/M081-12 Date: 05/22/2022 After Hours [facility] Urology Service Pager: [phone] ASSESSMENT AND PLAN Taras Hayward is a [...] cont home tizanidine Jie Hurt MD Resident [facility] [place] Personal Pager: [phone] For calls on nights and weekends, please page the Urology On-Call pager [phone] 9:34 PM, 05/22/2022 SUBJECTIVE - Feels well [...] PA and lateral recommended when possible. No [facility]othoraxK[facility]12-12-2022 NoteHNO ID: [id number] Author: Francisca Mercado APRN.CHANNEL DEVELOPMENT MANAGER Service: ? Author Type: Nurse Meat Cutting Teacher Type: Anesthesia Procedure Notes Filed: 05/22/2022 2:47 PM Note Text: ANESTHESIOLOGY PROCEDURE NOTE PIV General Information Procedure Start Time/Medication Administration: 05/22/2022 1:50 PM Patient Location: OR Staffing CHANNEL DEVELOPMENT MANAGER: Francisca Mercado APRN.CHANNEL DEVELOPMENT MANAGER Performed by: WENCESLAO Preparation Sterility Preparation: hand hygiene performed prior to procedure, surgical cap used, mask used, skin prep agent completely dried prior to procedure Sterility Technique Not Completely Performed Due to Extreme Emergency: No Site Prep: alcohol Procedure Details Indication: need for IV access Needle Size/Type: 20 gauge angiocath Orientation: Right Location: Hand Imaging Guidance Used: No SIGNATURE: Francisca Mercado APRN.CRNA PATIENT NAME: Taras Hayward DATE: May 22, 2022 TIME: 2:46 PM CSN: [id number] [facility] Hospital12-12-2022 NoteHNO ID: [id number] Author: Francisca Mercado APRN.CRNA Service: ? Author Type: Nurse Meat Cutting Teacher Type: Anesthesia Procedure Notes Filed: 05/22/2022 3:05 PM Note Text: ANESTHESIOLOGY PROCEDURE NOTE Airway General Information Procedure Start Time/Medication Administration: 05/22/2022 1:40 PM Patient location during procedure: OR Timeout Performed Pre-procedure: timeout performed Consent Obtained: Yes Patient identity confirmed: arm band and patient Staffing CHANNEL DEVELOPMENT MANAGER: Francisca Mercado APRN.CHANNEL DEVELOPMENT MANAGER Performed by: WENCESLAO Indications and Patient Condition Indications for airway management: anesthesia Preoxygenated: yes anesthesia circuit Patient position: sniffing and ramp Method: asleep Cricoid Pressure: Yes Manual In-Line Stabilization: No Difficult Mask: No Airway Accessory: oral airway Final Airway Details Final airway type: endotracheal airway Final Endotracheal Airway: ETT Cuffed: yes Successful intubation technique: video laryngoscopy Devices used: [employer] Endotracheal tube insertion site: oral Blade: [...] ventilate after succinylcholine given. SIGNATURE: Francisca Mercado APRN.CRNA PATIENT NAME: Taras Hayward DATE: May 22, 2022 TIME: 2:44 PM CSN: [id number] Memorial Hospital12-08-2022 Instructions* Patient Instructions* Cynthia Blackwood APRN.MATRIX INSPECTOR - 05/18/2022 1:46 PM EST PATIENT PREOPERATIVE INSTRUCTIONS No ref. provider found has scheduled you for your procedure at this surgery center: [facility] [place] Scheduling Office: [phone] --[address] [place] [address]. Please read below carefully for your personalized [...] Procedures: - YOU MUST HAVE A RESPONSIBLE CAMPUS AIDE TAKE YOU HOME. A SENIOR MANUFACTURING ENGINEER OR ICE CREAM DISPENSER CANNOT BE MADE A RESPONSIBLE CAMPUS AIDE. - We recommend that a responsible person [...] call the Sunday before. Your surgeon s buffer chrome will tell you what time to call the office. - If you have not reached the departmental buffer chrome by 5 P.M., call [phone] after 5 P.M. the day before your surgery. Please be aware that emergency situations arise, which may delay or change your surgical time. If this happens, we will notify you as soon as possible and regret any inconvenience. If you already have an Advance Directive, please fax a copy to [phone] or email to for it to be [...] day. Cynthia Blackwood APRN.CNP documented in this encounterMer[facility]12-[facility]-2022 History and physical note * Cynthia [...] fevers. Neurological: No history of TIA's, stroke, COLOR DRUM WORKER tumor, impaired sensorium, hemiplegia, paraplegia orquadraplegia. No [...] CAD, chest pain, CHF, DVT/PE, hyperlipidemia, recent [place] and murmur/valvular heart disease. GI: No history [...] afterwards, # 2 tab(s), Refills(s) 0, Pharmacy: [facility]/pharmacy #[id number] Start Date: 08/22/19 Status: Ordered nystatin-triamcinolone (MYCOLOG [...] or any previous visit (from the past 43983 hour(s)). Assessment Essential hypertension Assessment: Managed with [...] years old or younger STOP-Bang Score: 3 [id number]-IKZi Score: Age: <65 Sex: male Hypertension history: Yes Diabetes history: Yes [id number] Score: 2 ARISCAT Score: Age: <=50 ARISCAT [...] 1:08 PM PAGER/CONTACT #: documented in this encounterMercy Health Tiffin [facility]11-30-2022 Miscellaneous Notes* Telephone Encounter - Della [...] 10, 2022 11:27 AM documented in this encounterMercy Health Tiffin [facility]11-29-2022 NoteHNO ID: [id number] Author: Harsh Coffey MD Service: ? Author [...] based on size, location, hounsfield units and vbdc-bb-tndmo distance: 2% 3. Ureteroscopy - risks of [...] Harsh Coffey MD Director, Surgical Stone Disease [facility] Pager [phone] 05/09/2022[facility]11-29-2022 NotePatient Outreach (UROLMN) TARAS HAYWARD ([id number]) 1970 M Date Time Provider Department 05/09/22 HARSH COFFEY During your visit today, we recorded the following information about you: Allergies As of Date: 05/09/2022 (No Known Allergies) Date Reviewed: 05/09/2022 Reviewed by: Aislinn Mendoza MA - Fully Assessed Visit Diagnosis:Screening for genitourinary condition [Z13.89] Order(s):URINALYSIS, REFLEX MICROSCOPIC [GOP8952] Order #: [id number]. #:[id number] Prescriptions as of 05/12/2022 - azithromycin (ZITHROMAX) [...] afterwards, # 2 tab(s), Refills(s) 0, Pharmacy: [facility]/pharmacy #[id number] Start Date: 08/22/19 Status: Ordered - nystatin-triamcinolone [...] stent present [Z96.0] 05/09/2022 Encounter Status:Closed by Plyfe, PRODUSER on 05/12/22[facility] 05-09-2022 History of Present illness Narrative* [...] based on size, location, hounsfield units and niil-ny-zrfxx distance: 2% 3. Ureteroscopy - risks of [...] Harsh Coffey MD Director, Surgical Stone Disease [facility] [place], [facility] Pager [phone] 05/09/2022 documented in this encounterMercy Health Tiffin Hospital11-29-2022 Nurse Note* Aislinn Mendoza MA - 05/09/2022 1:02 PM EST [facility] Patient was assigned the Dr. Coffey patient instruction module from the [employer] platform. Patient was provided instructions on how to access [employer]. The patient was instructed to call the provider s officewith any questions. Patient states understanding and has the provider s office number/contact information via [employer] [place]. Aislinn Mendoza MA documented in this encounterMercy Health Tiffin [facility]11-02-2022 Hospital Discharge instructions Patient Education 04/12/2022 13:40:41 Kidney Stones, Fejp-aa-Upns Kidney Stones Kidney stones are rock-like masses [...] Follow these instructions at home: Medicines Take qmfb-ely-eihwgre and prescription medicines only as told by [...] 11/13/2008 Document Revised: 10/14/2019 Document Reviewed: 10/14/2019 Loku Patient Education 2019 Dynadec. Follow Up Care 03/31/2022 13:35:57 With:SLADE ALCALA, Konrad Jones, URL Address: [address] [place], [place] [address] [place] [id number]- When: Unknown [facility] 10-19-2022 NoteOPERATIVE NOTE OPERATION DATE: 03/29/2022 PREOPERATIVE [...] placed per urethra and a well lubricated 22-Sri Lankan cystourethroscope with 30 degree lens then passed [...] I was then able to pass a 4.8-Sri Lankan, 22-30 cm Microvasive double-J stent into the [...] it well. He was transferred to the rhalma and then back to PACU in satisfactory [...] recommending referral to tertiary care center, either [place] or [place], for consideration of percutaneous nephroscopic access for this nearly 3 cm stone. Discussed all this with the patient's family postoperatively and they were in agreement with the plan.[facility] No data available for this section [facility] Evaluation + Plan note Future Appointments Appointment Date:05/26/2022 08:30:00 AM Scheduled Provider: Location:[facility] Appointment Type:Urology CALL PAT Appointment Date:05/31/2022 01:00:00 PM Scheduled Provider: Location:[facility] Appointment Type:Urology FT [facility] Evaluation + Plan note Future Appointments Appointment Date:07/19/2022 03:00:00 PM Scheduled Provider:Konrad LILLY MD Location:[facility] Appointment Type:URO [facility] Future Appointments Appointment Date:11/28/2022 03:15:00 PM Scheduled Provider:Konrad LILLY MD Location:[facility] Appointment Type:URO Office Visit [facility] Evaluation + Plan note Future Appointments Appointment Date:11/28/2022 03:15:00 PM Scheduled Provider:Konrad LILLY MD Location[facility] Appointment Type:URO Office Visit Diagnostic Tests Pending * Urine Culture 07/19/22 [facility] Future Appointments Appointment Date:05/16/2023 03:00:00 PM Scheduled Provider:Konrad LILLY MD Location:[facility] Appointment Type:URO Office Visit [facility] evaluation + Plan note Future Appointments Appointment Date:05/16/2023 03:00:00 PM Scheduled Provider:Konrad LILLY MD Location:[facility] Appointment Type:URO Office Visit Diagnostic Tests Pending * Urine Culture 02/20/23 [facility]* Diagnosis Nephrolithiasis- Primary Calculus of kidney [...] examination of urine [facility]* Diagnosis Pre-op evaluation- Primary Preoperative examination, unspecified Essential hypertension Unspecified essential hypertension BMI 40.0-44.9, adult (HCC) Body Mass Index 40.0-44.9, adult Prediabetes Other abnormal glucose Ureteral stent present Nephrolithiasis Calculus of kidney Nephrolithiasis Calculus of kidney documented in this encounter [facility] HospitalEvaluation noteNort [employer] Other Evaluation noteNo InformationNocoxhealth [employer] Other Evaluation note* Diagnosis Onset Date Resolution Status Cerebellar infarct acute Hydrocephalus acute Hypertension acute Impaired mobility and activities of daily living acute Obesity (BMI 35.0-39.9 without comorbidity) acute S/P COVER CUTTER MACHINE shunt acute Tachycardia acute [facility] Work Phone: Evaluation note* Diagnosis Onset Date Resolution Status Cerebellar infarct acute Dizziness acute DVT, popliteal, acute acute Hydrocephalus acute Hypertension acute Impaired mobility and activities of daily living acute Nausea acute Obesity (BMI 35.0-39.9 without comorbidity) acute S/P COVER CUTTER MACHINE shunt acute Tachycardia acute [facility] Work Phone: Evaluation note* Diagnosis Sequelae, post-stroke- Primary documented in this encounter [facility] noteNo assessment information available [facility] Work Phone: History general Narrative - [...] gastric bypass 07/2015 Hospitalization History SEE SURGICAL [employer] Other History general Narrative - ReportedNocoxhealth [employer] Other Hisjhvh general Narrative - Reported* Type Description Date [...] gastric bypass 07/2015 Hospitalization History SEE SURGICAL [employer] Other Hiskmot general Narrative - Reported* Type Description Date [...] craniectomy 12/2022 Surgical History Frontal ventricular drain Hospitalization History SEE SURGICAL HX [employer] Other History general Narrative - Reported* Type [...] History Frontal ventricular drain 3 Surgical History COVER CUTTER MACHINE shunt placement 12/2022 Hospitalization History SEE SURGICAL HX [facility] [employer] ([employer]) Other Hospital Discharge instructions No data available for this section [facility] Additional Instructions Have sutures removed in 7 days. Apply bacitracin twice per day. Return for any redness, fever, vomiting, Headache, vision changes.[facility] Work Phone: InstructionsNot on filedocumented in this encounter [facility] SystemInstructionsNot on filedocumented in this encounter [facility] SystemProgress note No data available for this section [facility] Reason for referral (narrative)* Outpatient Procedure (Routine) - Closed Specialty Diagnoses / Procedures Referred By Stephanie carrion Ref[facility] Diagnoses Pre-op evaluation Procedures ECG COMPLETE ECG ROUTINE ECG W/LEAST 12 LDS W/I&R Cynthia Blackwood APRN.CNP [address] [place] [id number] [facility] [place] [address] [place] [address] Referral ID Status Reason Start Date Expiration Date V isits Requested Visits Authorized [id number] Closed Auto-Generate d Referral 05/18/2022 05/18/2023 1 1 [facility] Reason for Referral Specialty Diagnoses / Procedures Referred By Stephanie carrion Referred To Contact Diagnoses Nephrolithiasis Family history of nephrolithiasis BMI 40.0-44.9, adult (HCC) History of gastric bypass Essential hypertension Prediabetes Bladder spasms Ureteral stent present Procedures REFER TO PACC - PRE ANESTHESIA CONSULTATION CLINIC OFFICE/OUTPATIENT NEW HIGH MDM 60-74 MINUTES Harsh Coffey MD [address] [place] [address] Referral ID Status Reason Start Date Expiration Date Visits Requested Visits Authorized [id number] Authorized PCP Requested Referral 2 05/09/2023 1 1 Summary Purpose Family History No Family History Records FoundNo Family History Records FoundNo Family History Records FoundNo Family History Records Found Advance Directives No Advanced Directives Records Found Advance Directive Response Recorded Date/ Time Advance Directives No January 03 10:07am Documents on File Type Date Recorded Patient Card Grinder Helper Expl anation Durable Power of Clinical Nurse Occupational Medicine 01/05/2023 3:03 PM Latest Code Status on File Code Status Date Activated Date Inactivated Comments Full Code 12/13/2022 11:27 AM 01/03/2023 3:22 PM Advance Directive Response Recorded Date/ Time Advance Directives No January 03 9:07am Chief Complaint and Reason for Visit Chief Complaint left cerebellar CVA s/p Suboccipital craniectomy/c fall Reason for Visit Cerebellar infarct Hydrocephalus Hypertension Impaired mobility and activities of daily living Obesity (BMI 35.0-39.9 without comorbidity) S/P COVER CUTTER MACHINE shunt Tachycardia Chief Complaint left cerebellar CVA s/p Suboccipital craniectomy/c fall Reason for Visit Cerebellar infarct Dizziness DVT, popliteal, acute Hydrocephalus Hypertension Impaired mobility and activities of daily living Nausea Obesity (BMI 35.0-39.9 without comorbidity) S/P COVER CUTTER MACHINE shunt Tachycardia Chief Complaint Post stroke Additional Source Comments Patient Care team informatio n (unrecognized section and content) Team Status: Active Member Role Status Dates Awais Garcia DO Primary Care Provider Active Team Status: Inactive Member Role Status Dates PHYSICIAN NO FAMILY Primary Care Provider Active Srinivas Patricia MD Admit Provider, Attending Provider A cttrinidad Hay Other Provider Active Megha Lacy , DO Other Provider Active Inés Ly MD Other Provider Active Pawan Oates , DO Other Provider Active Rita Pierce , ANP-BC Other Provider Active Pilo Nieto , DO Other Provider Active Suha Terry , SATELLITE DISH INSTALLER Other Provider Active Victorina Malloy , SECRETARY OF STATE-C Other Provider Active Kendal Wei , SATELLITE DISH INSTALLER-ENGINEERING FACULTY MEMBER-C Other Provider Active Vianey Avilez LPN Other Provider Active Gerardo Miranda MD Other Provider Active Gracie Pizano , SECRETARY OF STATE-C Other Provider Active Derek Argueta MD Other Provider Active Tony Fuentes MD Other Provider Active Jaspal Rutledge , CSTFA Other Provider Active Thom Zayas MD Other Provider Active Caitlyn Mckeon , SECRETARY OF STATE-C Other Provider Active Len Lopez MD Other Provider Active Bhavya Ferrer MD Other Provider Active Team Status: Inactive Member Role Status Dates Ashely Torres MD Emergency Provider Active Awais Garcia DO Primary Care Provider Active Sausage Mixer Relationship Specialty Start Date End Date Awais Garcia DO [address] [facility] [place] [address] PCP - General Internal Medicine 05/12/22 Sausage Mixer Relationship Specialty Start Date End Date Awais Garcia, DO [address] [facility] [place] [address] PCP - General Internal Medicine 05/12/22 Team Status: Active Member Role Status Dates PHYSICIAN NO FAMILY Primary Care Provider Active Srinivas Patricia MD Admit Provider, Attending Provider A ctive Sausage Mixer Relationship Specialty Start Date End Date Awais Garcia DO [address] [place] [address] PCP - General Internal Medicine 12/13/22 Sausage Mixer Relationship Specialty Start Date End Date Awais Garcia DO [address] [place] [address] PCP - General Internal Medicine 12/13/22 Sausage Mixer Relationship Specialty Start Date End Date Awais Garcia DO [address] [place] [address] PCP - General Internal Medicine 12/13/22 Team Status: Inactive Member Role Status Dates Awais Garcia DO Primary Care Provider Active EVER Hawley Attending Provider Active Source Comments (unrecognize d section and content) In the event this informatio n is protected by the Federal Confidentiality of Alcohol and Drug Abuse Patient Records regulations: The Federal rules restrict any use of the information to criminally investigate or prosecute any alcohol or drug abuse patient.[facility] the event this information is protected by the Federal Confidentiality of Alcohol and Drug Abuse Patient Records regulations: The Federal rules restrict any use of the information to criminally investigate or prosecute any alcohol or drug abuse patient.[facility] Hospital[facility] the event this information is protected by the Federal Confidentiality of Alcohol and Drug Abuse Patient Records regulations: The Federal rules restrict any use of the information to criminally investigate or prosecute any alcohol or drug abuse patient.[facility] Hospital[facility] the event this information is protected by the Federal Confidentiality of Alcohol and Drug Abuse Patient Records regulations: The Federal rules restrict any use of the information to criminally investigate or prosecute any alcohol or drug abuse patient.[facility] Reason for Visit (unrecogniz ed section and content) Reason Comments Consult Reason Comments Appointment Reason Comments Pre-Op Visit (unrecognized sect ion and content) No Status Records FoundNo Status Records FoundNo Status Records FoundNo Status Records Found INFORMATION SOURCE (unrecogn ized section and content) DATE CREATED AUTHOR 06/11/2022 [facility] DATE CREATED AUTHOR AUTHOR'S ORGANIZ ATION 08/12/2022 [facility] DATE CREATED AUTHOR AUTHOR'S ORGANIZ ATION 06/20/2023 [facility] DATE CREATED AUTHOR AUTHOR'S ORGANIZ ATION 07/19/2023 [facility] Goals (unrecognized section and content) Goals may be documented in a n alternate section FOR RECORDS PERTAINING TO PATIENTS WHO ARE [...] BE BASED ON THE PRIMARY CLINICAL RECORDS. [employer] [facility]. provides no warranty or guarantee of the accuracy or completeness of information in this document.
[2023-07-20 08:54] LABS: Alanine Aminotransferase 21 U/L (16-63); Albumin Globulin Ratio 0.7; Albumin Level 3.3 g/dL (3.4-5.0); Alkaline Phosphatase 107 U/L (46-116); Anion Gap 13.1; Aspartate Amino Transferase 15 U/L (15-37); BUN Creatinine Ratio 15.9; Bilirubin Total 0.9 mg/dL (0.2-1.0); Calcium 8.9 mg/dL (8.5-10.1); Chloride 105 mmol/L (98-107); Cholesterol 115 mg/dL (<=200); Estimated GFR (African America >60 (>=60); Estimated GFR (Non-African Ame >60 (>=60); Globulin 4.5 g/dL; Glucose 120 mg/dL (74-106); HDL Cholesterol 57 mg/dL (40-60); LDL Cholesterol Calculated 42.2 mg/dL; Potassium 4.1 mmol/L (3.5-5.1); Sodium 140 mmol/L (136-145); Thyroid Stimulating Hormone 2.568 uIU/mL (0.358-3.740); Total Protein 7.8 g/dL (6.4-8.2); Triglycerides 79 mg/dL (<=150); VLDL CHOLESTEROL 15.8 mg/dL
[2023-07-20 08:58] LABS: Estimated Average Glucose 126 mg/dL
[2023-07-20 10:53] LABS: Basophils Percent Auto 0.3 % (0.2-2.0); Eosinophils Absolute Auto 0.1 10^3/uL (0.0-0.7); Eosinophils Percent Auto 0.9 % (0.9-7.0); Hematocrit 44.6 % (42.0-54.0); Hemoglobin 13.4 g/dL (14.0-18.0); Immature Granulocytes Abs Auto 0.02 10^3/uL (0.00-0.03); Immature Granulocytes Pct Auto 0.2 % (0.0-0.5); Lymphocytes Absolute Auto 3.3 10^3/uL (1.2-3.8); Lymphocytes Percent Auto 34.4 % (20.5-60.0); Mean Corpuscular Hemoglobin 25.1 pg (25.9-34.0); Mean Corpuscular Volume 83.5 fL (80.0-94.0); Monocytes Absolute Auto 0.7 10^3/uL (0.3-0.8); Monocytes Percent Auto 7.2 % (1.7-12.0); Neutrophils Absolute Auto 5.5 10^3/uL (1.4-6.5); Platelet Count 319 10^3/uL (150-450); Red Blood Count 5.34 10^6/uL (4.70-6.10); White Blood Count 9.7 10^3/uL (4.0-11.0)
[2023-07-20 11:12] LABS: D Dimer <0.19 mg/L FEU (<=0.59)
[2023-07-20 15:02] LABS: Prostate Specific Antigen Scrn 1.17 ng/mL (<=4.00)
--- NOTE | 2023-07-20 15:54 | US_ITS ---
The [address] [address] Patient Name: ELYSSA DAVIS MRN: [id number] date: 1970 Sex: M Assigned Patient Location: US Current Patient Location: Accession/Order Number: [id number] Exam Date: 07/20/2023 15:59 Report Date: 07/21/2023 01:09 At the request of: ARIE GARCIA Procedure: US venous doppler LE RT EXAM: US VENOUS DOPPLER LE RIGHT HISTORY: VENOUS EMBOLISM AMD THROMBOSIS OF DEEP VESSELS I82.4Z1 Extremity edema and pain. COMPARISON: None. TECHNIQUE: Multiple sonographic images are performed of the extremity venous system with both color Doppler and grayscale Doppler. Doppler spectral analysis and color flow were performed of the extremity. FINDINGS: There is no evidence of thrombus within the visualized veins. There is adequate phasic and spontaneous flow. There is adequate compression. There is adequate augmentation. No evidence of DVT within the visualized veins of the visualized extremity. No popliteal fluid collection. US/US venous doppler LE RT IMPRESSION: No evidence of DVT within visualized veins. Electronically authenticated by: GEOVANNI LIZAMA Date: 07/21/2023 01:09
== END 2023-07-20 07:36 | disposition home or self-care (01) ==
LOC: US 07:35
PROVIDERS: PCP Internal Medicine; Visit Provider Internal Medicine
DX: Z00.00 Encounter for general adult medical examination without abnormal findings (principal); I82.4Z1 Acute embolism and thrombosis of unspecified deep veins of right distal lower extremity
CPT/HCPCS: 36415; 80053; 80061; 82043; 83036; 84443; 85025; 85378; 93971; G0103

== ENCOUNTER 2023-10-19 08:40 | Outpatient (OUT) | payer BC, SELFPAY ==
--- NOTE | 2023-10-19 08:51 | XR_ITS ---
The [address] [address] Patient Name: ELYSSA DAVIS MRN: [id number] date: 1970 Sex: M Assigned Patient Location: LAB Current Patient Location: Accession/Order Number: [id number] Exam Date: 10/19/2023 08:58 Report Date: 10/21/2023 05:13 At the request of: KONRAD JUNE Procedure: XR abdomen 1V EXAMINATION: XR abdomen 1V HISTORY: Kidney Stone N20.0 COMPARISON: XR abdomen 11/14/2022 FINDINGS: KIDNEY/URETER - RIGHT: No visible renal or ureteral calcifications. KIDNEY/URETER - LEFT: No visible renal or ureteral calcifications. PELVIS: No visible ureteral stones. BOWEL: No abnormal dilation or deviation. BONES: No acute abnormality. OTHER: Negative. No abnormal gaseous collections. XR/XR abdomen 1V IMPRESSION: 1. No appreciable urinary tract calculi. Evaluation is limited by dense overlying bowel content. Electronically authenticated by: INÉS WARREN Date: 10/21/2023 05:13
[2023-10-19 12:55] LABS: Carbon Dioxide 27.9 mmol/L (21.0-32.0); Chloride 104 mmol/L (98-107); Estimated GFR (African America >60 (>=60); Estimated GFR (Non-African Ame >60 (>=60); Phosphorus 3.6 mg/dL (2.6-4.7); Sodium 141 mmol/L (136-145); Uric Acid 3.8 mg/dL (3.5-7.2)
[2023-10-20 15:08] LABS: PTH, Intact 55 pg/mL (15-65)
== END 2023-10-19 08:41 | disposition home or self-care (01) ==
LOC: LAB 08:42
PROVIDERS: PCP Internal Medicine; Visit Provider Urology
DX: N20.0 Calculus of kidney (principal)
CPT/HCPCS: 36415; 74018; 82310; 82374; 82435; 82565; 83970; 84100; 84295; 84520; 84550

== ENCOUNTER 2023-11-21 07:29 | Outpatient (OUT) | payer BC, SELFPAY ==
--- NOTE | 2023-11-21 07:32 | CT_ITS ---
The [address] [address] Patient Name: ELYSSA DAVIS MRN: [id number] date: 1970 Sex: M Assigned Patient Location: CT Current Patient Location: CT Accession/Order Number: [id number] Exam Date: 11/21/2023 08:03 Report Date: 11/21/2023 10:03 At the request of: NON-STAFF PHYSICIAN Procedure: CT head/brain wo/w con CT head/brain wo/w con, 11/21/2023 8:03 AM EDT INDICATION: Post Suboccipital Decompression Craniectomy COMPARISON: Prior CT of the head dated 02/07/2023 TECHNIQUE: Axial CT images of the brain from skull base to vertex, including portions of the face and sinuses, were obtained without and with contrast . Multiplanar reformatted images were generated and reviewed as needed. Dose reduction techniques were achieved by using automated exposure control and/or adjustment of mA and/or kV according to patient size and/or use of iterative reconstruction technique. FINDINGS: There is status post suboccipital decompression craniectomy with partially visualized fluid collection in the surgical bed. It measures approximately 5.8 x 6.5 cm (AP, transverse). Few packets of air are again noted within the fluid however the number of packets of air has been decreased in compared to the prior study. There is a possible CSF leak (bookmarks). Right parietal ventriculostomy is again noted. Again encephalomalacia within the cerebellar hemispheres left more than right likely due to postoperative changes. The cerebral sulci as well as ventricular system are appropriate for age. There is no midline shift or large hemorrhage. No hydrocephalus is noted. No abnormal enhancing lesion is noted. Periventricular and centrum semiovale hypodensities are most likely consistent with microvascular ischemic changes. The visualized portions of orbits, mastoid air cells as well as paranasal sinuses are unremarkable. There is no suspicious osteolytic or osteoblastic lesion. CT/CT head/brain wo/w con IMPRESSION: No acute intracranial process is noted. 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 Superimposed infection cannot be totally excluded. Electronically authenticated by: JAREK WEAVER Date: 11/21/2023 10:03
== END 2023-11-21 07:30 | disposition home or self-care (01) ==
LOC: CT 07:29
PROVIDERS: PCP Internal Medicine
DX: Z98.890 Other specified postprocedural states (principal); Z98.2 Presence of cerebrospinal fluid drainage device
CPT/HCPCS: 70470; Q9967

== ENCOUNTER 2024-11-24 07:56 | Outpatient (OUT) | payer BC, SELFPAY ==
--- OUTSIDE RECORDS SUMMARY | 2018-08-28 09:15 | XMS_ITS | Continuity of Care Document ---
Author [facility] [facility] Address [address] [facility] [place] [address] Phone Care Team Providers Care Field Support Engineer Name Role Phone Yoli Porter CNP Unavailable [...] Providers Copied on Encounter OFFICE/OUTPATI ENT VISIT, [facility] [facility], [address] [place] [address], [id number], [place] tel:[phone] [facility] No Information 0 9 Charlotte Kent. [address], [id number], [place]. tel:[phone] Referring Provider: Yoli Porter, [facility] [address] [facility] [address], [place], [address] . tel:[phone] OFFICE/OUTPATI ENT VISIT, [facility] [facility], [address] [place] [address], [id number], tel:[phone] [facility] No Information 8 Charlotte Kent. [address] [facility] [address], [place], [place], [address], [place]. tel:[phone] Referring Provider: Yoli Charlotte, [address] [facility] [address], [place], [address] . tel:[phone] OFFICE/OUTPATI ENT VISIT, [employer] [facility], [address], [place], [place], [address], [place] tel:[phone] [facility] No Information 7 No Information OFFICE/OUTPATI ENT VISIT, [employer] [facility], [address] [place] [address] [address], [place], [place], [address], [place] tel:[phone] [facility] No Information [address] [employer] [facility], [address] [place] [address] [address], [place], [place], [id number], [place] tel:[phone] [facility] No Information [address] [employer] [facility], [address] [place] [address] Road [address], [place], [place], [address], [place] tel:[phone] [facility] No Information [address] [employer] [facility], [address] [place] [address] Road [address], [place], [place], [id number], [place] tel:[phone] [facility] IP No Information [address] [employer] [facility], [address] [place] [address] [address], [place], [place], [id number], [place] tel:[phone] [facility] IP No Information 6 Yeimi Bro. [facility] [address] [facility] [address], [place], [place], [id number], [place]. tel:[phone] Referring Provider: Dieudonne Perkins, [address] [facility] [address], [place], [address] . tel:[phone] OFFICE/OUTPATI ENT VISIT, [employer] [facility], [address] [place] [address] Road [address], [place], [place], [id number], [place] tel:[phone] [facility] No Information 6 Yeimi Bro. [address] [facility] [address], [place], [place], [address], [place]. tel:[phone] Referring Provider: Dieudonne Perkins, [address] [facility] [address], [place], [address] . tel:[phone] OFFICE CONSULTATION [facility], [address] [place] [address] [address], [place], [place], [id number], tel:[phone] [facility] No Information Yeimi Bro. [address] [facility] [address], [place], [place], [id number], [place]. tel:[phone] Referring Provider: Dieudonne Perkins, [address] [facility] [address], [place], [address] . tel:[phone] Family History Family Member Type Diagnosis Age At Onset No Information Payers Payer name Insurance type Covered alliance party ID Jarodfrank coridonna(s) [facility] CI [id number] Social History Type Description Quantity Date Captured [...]
--- OUTSIDE RECORDS SUMMARY | 2024-11-24 08:00 | XMS_ITS | Encounter Summary ---
Author Organization [facility] Address [facility] [place] [address] Care Team Providers Care Behavioral Health Professional Name Role Phone Awais Pablo Primary Care Provider [phone] Source Comments In the event this information is protected by the Federal Confidentiality of Alcohol and Drug AbusePatient Records regulations: The Federal rules restrict any use of the information to criminally investigate or prosecute any alcohol or drug abuse patient.[facility] Encounter Details Date Type Department Care Team (Late st Contact Info) Description 05/15/2022 Patient Msg [facility] [address] [place] [address] Provider, Ccf Pre procedure instructions Social History Tobacco Use Types Packs/Day Years Used Date Smoking Tobacco: Never Smokeless Tobacco: Never Alcohol Use Standard Drinks/Week Comments Yes 1 (1 standard drink = 0.6 oz pur e alcohol) rare Sex and Gender Information Value Date Recorded Sex Assigned at Not on file Legal Sex Male 11:29 AM EDT Gender Identity Not on file Sexual Orientation Not on file COVID-19 Exposure Response Date Recorded In the last 10 days, have yo u been in contact with someone who was confirmed or suspected to have Coronavirus/COVID-19? No / Unsure 05/12/2022 12:41 PM EST documented as of this encounter Plan of Treatment Not on file documented as of this encounter Visit Diagnoses Not on filedocumented in this encounter Care Teams Behavioral Health Professional Relationship Specialty Start Date End Date Awais Pablo DO PCP - General Internal Medicine 05/12/22 documented as of this encounter
--- OUTSIDE RECORDS SUMMARY | 2024-11-24 08:00 | XMS_ITS | Clinical Summary ---
Author Organization [facility] Address [address] [place] [address] Care Team Providers Care Spectroscopist Name Role Phone Unavailable Primary Care Provider Unavailabl e Social History Tobacco Use Types Packs/Day Years Used Date Smoking Tobacco: Never Assessed [place] Safety & Environment Answer Date Rec orded Fear of Current or Ex-Partner Not on file Emotionally Abused Not on file 08/02/2023 Physically Abused Not on file 08/02/2023 Sexually Abused Not on file 08/02/2023 Physically or Sexually Abused Not on file Sex and Gender Information Value Date Recorded Sex Assigned at Not on file Legal Sex Male 10:43 PM EDT Gender Identity Not on file Sexual Orientation Not on file Plan of Treatment Not on file
--- OUTSIDE RECORDS SUMMARY | 2024-11-24 08:00 | XMS_ITS | Encounter Summary ---
Author Organization [facility] Address [id number] [address] [place] [address] Care Team Providers Care Independent Distributor Name Role Phone Awais Pablo DO Primary Care Provider [phone] Encounter Details Date Type Department Care Team ([facility] st Contact Info) Description 01/11/2023 Telephone [facility] [address] [place] [address] Angélica Toussaint MD [address] [facility] [address] [place] [address] Social History Tobacco Use Types Packs/Day Years Used Date Smoking Tobacco: Never Smokeless Tobacco: Never Alcohol Use Standard Drinks/Week Comments Yes 0 (1 standard drink = 0.6 oz pur e alcohol) social AUDIT-C Answer Date Recorded Q1: How often do you have a drink containing alc ohol? 2-4 times a month 12/13/2022 Q2: How many drinks containi ng alcohol do you have on a typical day when you are drinking? 1 or 2 12/13/2022 Q3: How often do you have si x or more drinks on one occasion? Never 12/13/2022 PHQ-2 Answer Date Recorded Total Score 0 12/13/2022 Childcare Answer Date Recorded Childcare Unknown 11/20/2018 Employment Answer Date Recorded Employment Unknown 11/20/2018 Sex and Gender Information Value Date Recorded Sex Assigned at Not on file Legal Sex Male 4:35 PM EDT Gender Identity Not on file Sexual Orientation Not on file documented as of this encounter Miscellaneous Notes * Telephone Encounter - Hayley Fritz - 01/11/2023 3:18 PM EDT En[place] from [facility] calls to say that Taras's preliminary venous scan came back positive fora right popliteal DVT. She is asking how soon they can give him blood thinners. * Telephone Encounter - Angélica Toussaint MD - 01/11/2023 3:18 PM EDT I spoke to the physician and his facility. They may proceed with anticoagulation now documented in this encounter Plan of Treatment Not on file documented as of this encounter Goals Goal Patient Goal Type Associated Problems Recent Progress Patient-Stated? Author Patient will have a safe DC General Yes Mica Frias RN Note: Evaluation of progress towards goal: Pt will have a safe DC. documented as of this encounter Visit Diagnoses Not on filedocumented in this encounter Additional Health Concerns Assessment Noted Time PHQ-9 Depression Total Score: 0 12/14/19 12:15 PM EDT documented as of this encounter Care Teams Independent Distributor Relationship Specialty Start Date End Date Awais Pablo DO [address] [place] [address] PCP - General Internal Medicine 12/13/22 documented as of this encounter
--- OUTSIDE RECORDS SUMMARY | 2024-11-24 08:00 | XMS_ITS | Encounter Summary ---
Author Organization [facility] Address [facility]-[id number] [address] [place] [address] Care Team Providers Care Middle [employer] Resource Teacher Name Role Phone SamyAwais Licha MANRIQUE Primary Care Provider [phone] Encounter Details Date Type Department Care Team ([facility] st Contact Info) Description 09/13/2023 Telephone [facility] [address] [place] [address] Álvaro Jenkins PA [address] [facility] [address] [place] [address] Social History Tobacco Use Types Packs/Day Years Used Date Smoking Tobacco: Never Smokeless Tobacco: Never Alcohol Use Standard Drinks/Week Comments Not Currently 0 (1 standard drink = 0.6 oz pur e alcohol) AUDIT-C Answer Date Recorded Q1: How often [...] PHQ-2 Answer Date Recorded Total Score 0 05/30/2023 Housing Instability Answer Date Recorde d Are you worried or concerned that in the next two months you may not have stable housing that you own, rent or stay in as a part of a household? No 02/09/2023 Childcare Answer Date Recorded Childcare Unknown 11/20/2018 Employment Answer Date Recorded Employment Unknown 11/20/2018 Hunger Screening Answer Date Recorded Within the past 12 months we worried whether our food would run out before we got money to buy more. Never True 05/30/2023 Within the past 12 months th e food we bought just didn't last and we didn't have money to get more. Never True 05/30/2023 Sex and Gender Information Value Date Recorded Sex Assigned at Not on file Legal Sex Male 4:35 PM EDT Gender Identity Not on file Sexual Orientation Not on file documented as of this encounter Miscellaneous Notes * Telephone Encounter - Hayley Fritz - 09/13/2023 12:41 PM EDT ----- Message from Taras Hayward sent at 09/12/2023 1:38 PM EDT ----- Regarding: Dry-heaving Contact: Will it ever go away? PCP upped my Zofran to 8mg from 4mg in the last few weeks. I take it every six hours as needed which lately has been always. documented in this encounter Plan of Treatment [...] Noted Time PHQ-9 Depression Total Score: 0 05/30/20 23 2:14 PM EST documented as of this encounter Care Teams Middle [employer] Resource Teacher Relationship Specialty Start Date End Date Awais Pablo DO [address] [place] [address] PCP - General Internal Medicine 12/13/22 documented as of this encounter
--- OUTSIDE RECORDS SUMMARY | 2024-11-24 08:00 | XMS_ITS | Clinical Summary ---
Author Organization [facility] Address [address] [place], [place] [address] Care Team Providers Care Community Nurse Name Role Phone Awais Pablo Primary Care Provider [phone] Allergies Active Allergy Reactions Criticality Noted Date Comments Feathers Other: See Comments Medium 05/22/2022 nasal congestion Medications carvedilol (COREG) 12.5 mg tablet Take by mouth. 2 Active oxybutynin (DITROPAN) 5 mg tablet Take by mouth. 2 Active OZEMPIC 0.25 mg or 0.5 mg(2 mg/1.5 mL) pen INJECT 0.5MG SUBCUTANEOUSLY WEEKLY 2 Active cholecalcifero l, vitamin D3, (VITAMIN D3 ORAL) Take 5,000 Int'l Units/L by mouth once daily. Active tamsulosin (FLOMAX) 0.4 mg Take 1 capsule by mouth daily at bedtime. 30 capsule 2 Active oxyCODONE IR (ROXICODONE) 5 mg immediate release tabletIndicati ons:Nephrolith iasis Take 1 tablet by mouth every 8 hours as needed for pain. 6 tablet 2 Active Active Problems Problem Noted Date Diagnosed Date Nephrolithiasis 05/09/2022 Family history of nephrolithiasis 05/09/2022 BMI 40.0-44.9, adult 05/09/2022 Assessment & Plan (05/18/2022 1:52 PM EST): Assessment: Body mass index is 44.2 kg/m . History of gastric bypass 05/09/2022 Essential hypertension 05/09/2022 Assessment & Plan (05/18/2022 2:04 PM EST): Assessment: Managed with carvedilol (COREG) BP this visit 148/92 Denies SOB, dizziness, lightheadedness, palpitations, syncope or chest pain Prediabetes 05/09/2022 Assessment & Plan (05/18/2022 2:05 PM EST): Assessment: managed with OZEMPIC Ordered A1C Bladder spasms 05/09/2022 Ureteral stent present 05/09/2022 Assessment & Plan (05/18/2022 2:05 PM EST): Assessment: Right placed 03/2022 Immunizations Immunization Administration Dates Next Due COVID-19 original vaccine, f ull dose, monovalent (MODERNA) 04/11/2022,04/06/2021,07/07/2020,2019 Social History Tobacco Use Types Packs/Day Years Used Date Smoking Tobacco: Never Smokeless Tobacco: Never Tobacco Cessation:Counseling Given: Not Answered Alcohol Use Standard Drinks/Week Comments Yes 1 (1 standard drink = 0.6 oz pure alcohol) may have a drink every 6 months Area Deprivation Index Answer Date Felix rded National Score (1-100), lower number is lower ri sk 91 06/30/2022 State Score (1-10), lower number is lower risk N ot on file 06/30/2022 Data from: https://www.neighborhoodatlas.medicine.[facility].edu/. Last address used for calculation [address] [facility] 06/30/2022 Sex and Gender Information Value Date Recorded Sex Assigned at Not on file Legal Sex Male 11:29 AM EDT Gender Identity Not on file Sexual Orientation Not on file Last Filed Vital Signs Vital Sign Reading Time Taken Comments Blood Pressure 133/79 05/24/2022 5:03 AM EST Pulse 78 05/24/2022 5:03 AM EST Temperature 36.2 C (97.2 F) 05/24/2022 5:03 AM EST Respiratory Rate 18 05/24/2022 5:03 AM EST Oxygen Saturation 97% 05/24/2022 6:26 AM EST Inhaled Oxygen Concentration - - Weight 160.4 kg (353 lb 9.9 oz) 05/23/2022 1:01 AM EST Height 190.5 cm (6' 3 ) 05/22/2022 6:20 AM EST Body Mass Index 44.2 05/22/2022 6:20 AM EST Plan of Treatment Health Maintenance Due Date Last Done Comments Annual PCP Team Chronic Dise ase Visit 1990 Anxiety Screening 1990 Depression Screening 1990 HIV Screening 1990 Hepatitis C Screening 1990 DTaP,Tdap,Td Vaccine (1 - Tdap) 08/29/1991 Hepatitis B Vaccine (1 of 3 - 19+ 3-dose series) 08/29/1991 Lipid Screening 08/29/2007 CT Colonography 2017 Colonoscopy 2017 Fecal Occult Blood 2017 Sigmoidoscopy 2017 Pneumococcal Vaccine: 50+ (1 of 1 - PCV) 2022 Shingrix Vaccine (1 of 2) 2022 Covid-19 Vaccine (5 - 2023-2 5 season) 2024 04/11/2022, 04/06/2021, 07/07/2020, Additional history exists Influenza Vaccine (Season Ended) 2025 04/05/20, 03/11/2019 Cologuard (FIT-DNA) 04/12/2025 04/12/2022 Colorectal Cancer Screening 04/12/2025 Diabetes Screening 05/24/2025 05/24/2022, 1 07/24/2021, 05/22/2022, Additional history exists Medical Devices Implanted Type Area Construction Pit Worker Device Identifier Shelf Expiration Date Model / Serial / Lot Clip Clip Abdomen Stent Uro Unvrs Frm 7fr 30cm Implanted:Qty : 1 on 05/22/2022 at [facility] Urologic Stents Right: [employer] 02/22/2024 [id number] / / [id number] Procedures Procedure Name Priority Date/Time Associated Diagnosis Comments BASIC METABOLIC PANEL Routine 05/24/2022 5:09 AM EST from Last 3 Months or Most Recently Relevant to Health Maintenance Results * (ABNORMAL) BASIC METABOLIC PNL (05/24/2022 5:09 AM EST) Glucose 96 74 - 99 mg/dL 05/24/2022 6:33 AM [facility] Comment: The [place] Diabetes Association (ADA) provides guidance for cutoff [...] Standards of Medical Care in Diabetes 2016, [place] Diabetes Association. Diabetes Care. 2016.39(Suppl 1). BUN 14 9 - 24 mg/dL 05/24/2022 6:33 AM [facility] Creatinine 0.94 0.73 - 1.22 mg/dL 05/24/2022 6:33 AM [facility] Sodium 138 136 - 144 mmol/L 05/24/2022 6:33 AM [facility] Potassium 3.6(L) 3.7 - 5.1 mmol/L 05/24/2022 6:33 AM [facility] Chloride 104 97 - 105 mmol/L 05/24/2022 6:33 AM [facility] CO2 24 22 - 30 mmol/L 05/24/2022 6:33 AM [facility] Anion Gap 10 9 - 18 mmol/L 05/24/2022 6:33 AM [facility] Calcium, Total 8.8 8.5 - 10.2 mg/dL 05/24/2022 6:33 AM [facility] Estimated Glomerular Filtration Rate 99 >=60 mL/min/1.7 3m 05/24/2022 6:33 AM [facility] Comment:Estimated Glomerular Filtration Rate (eGFR) is calculated using the 2020 CKD-EPI creatinine equation. This equation utilizes serum creatinine, sex, and age as parameters. The creatinine assay has traceable calibration to isotope dilution- mass spectrometry. Refer to KDIGO guidelines for clinical interpretation. In patients with unstable renal function, e.g. those with acute kidney injury, the eGFR may not accurately reflect actual GFR. Blood BLOOD SPECIMEN / Unknown Venipuncture / Unknown 05/24/2022 5:09 AM EST 05/24/2022 5:54 AM EST us Calvin Coffey MD LABORATORY Final Result [facility] [address] [facility] [address] [place] [address], [place] from Last 3 Months or Most Recently Relevant to Health Maintenance Insurance [facility] PPO Care Teams Community Nurse Relationship Specialty Start Date End Date Awais Pablo DO PCP - General Internal Medicine 05/12/22
--- OUTSIDE RECORDS SUMMARY | 2024-11-24 08:00 | XMS_ITS | Encounter Summary ---
Author Organization [email or web address] Address [facility] [id number] [address] [place] [address] Care Team Providers Care Video Specialist Name Role Phone Awais Pablo DO Primary Care Provider [phone] Reason for Referral * Diagnostic Imaging (Routine) - Closed Specialty Diagnoses / Procedures Referred By Contac t Referred To Contact Radiology Diagnoses Pain Procedures CT brain without contrast [facility] [address] [place] [phone] Phone: tel: fax: Referral ID Status Reason Start Date Expiration Date Visits Re quested Visits Authorized [id number] Closed 02/08/2023 02/08/2024 1 1 * Diagnostic Imaging (Routine) - Closed Specialty Diagnoses / Procedures Referred By Contac t Referred To Contact Radiology Diagnoses Pain Procedures MR brain without contrast [facility] [address] [place] [phone] Phone: tel: fax: Referral ID Status Reason Start Date Expiration Date Visits Re quested Visits Authorized [id number] Closed 02/08/2023 02/08/2024 1 1 * Diagnostic Imaging (Routine) - Closed Specialty Diagnoses / Procedures Referred By Contac t Referred To Contact Radiology Diagnoses Pain Procedures CT brain without contrast stroke alert [facility] [address] [place] [address] Phone: tel: fax: Referral ID Status Reason Start Date Expiration Date Visits Re quested Visits Authorized [id number] Closed 02/08/2023 02/08/2024 1 1 Encounter Details Date Type Department Care Team (Late st Contact Info) Description 02/08/2023 Orders Only [facility] [address] [place] [phone] Transcribe, Orders Support User Pain (Primary Dx) Social History Tobacco Use Types Packs/Day Years [...] Answer Date Recorded Total Score 0 12/13/2022 Housing Instability Answer Date Recorde d Are [...] on file documented as of this encounter Plan of Treatment Not on file documented as of this encounter Goals Goal Patient Goal Type Associated Problems Recent Progress Patient-Stated? Author Patient will have a safe DC General Yes Mica Frias RN Note: Evaluation of progress towards goal: Pt will have a safe DC. documented as of this encounter Results * CT brain without contrast stroke alert (02/07/2023 3:05 PM EDT) us Scanning Provider External IMG CT ORDERABLES Fin al Result * X-ray chest 1 view (02/07/2023 2:30 PM EDT) us Scanning Provider External IMG DIAGNOSTIC IMAGIN G ORDERABLES Final Result * Vas venous duplex lwr single right (01/22/2023 6:00 PM EDT) us Scanning Provider External CV VASCULAR ORDERABLE S Final Result MEDSTREAMING * MR brain without contrast (01/18/2023 11:10 AM EDT) us Scanning Provider External IMG MRI ORDERABLES Fi nal Result * CT brain without contrast (01/12/2023 1:15 PM EDT) us Scanning Provider External IMG CT ORDERABLES Fin al Result documented in this encounter Visit Diagnoses Diagnosis Pain- Primary Generalized pain documented in this encounter Additional Health Concerns Assessment Noted Time PHQ-9 Depression Total Score: 0 12/14/19 23 12:15 PM EDT documented as of this encounter Care Teams Video Specialist Relationship Specialty Start Date End Date Awais Pablo DO [address] [place] [address] PCP - General Internal Medicine 12/13/22 documented as of this encounter
--- OUTSIDE RECORDS SUMMARY | 2024-11-24 08:00 | XMS_ITS | Encounter Summary ---
Author Organization [facility] Address [address] [place] [address] Care Team Providers Care Top Collar Baster Name Role Phone Awais Pablo Primary Care Provider [phone] Source Comments In the event this information is protected by the Federal Confidentiality of Alcohol and Drug AbusePatient Records regulations: The Federal rules restrict any use of the information to criminally investigate or prosecute any alcohol or drug abuse patient.[facility] Encounter Details Date Type Department Care Team (Late st Contact Info) Description 05/24/2022 Patient Msg Urology [address] [place] [address] Calvin Coffey MD Stent removal Social History Tobacco Use Types Packs/Day Years Used Date Smoking Tobacco: Never Smokeless Tobacco: Never Alcohol Use Standard Drinks/Week Comments Yes 1 (1 standard drink = 0.6 oz pure alcohol) may have a drink every 6 months Sex and Gender Information Value Date Recorded [...] PM EST documented as of this encounter Functional Status * Are you deaf or do you have serious difficulty hearing? Answer Date of Assessment Author No 05/24/2022 9:36 AM Sherlyn Ragsdale RN * Are you blind or do you have serious difficulty seeing, even when wearing glasses? Answer Date of Assessment Author No 05/24/2022 9:36 AM Sherlyn Ragsdale RN * Do you have serious difficulty walking or climbing stairs? Answer Date of Assessment Author No 05/24/2022 9:36 AM Sherlyn Ragsdale RN * Do you have difficulty dressing or bathing? Answer Date of Assessment Author No 05/24/2022 9:36 AM Sherlyn Ragsdale RN * Because of a physical, mental, or emotional condition, do you have difficulty doing errands alone such as visiting a doctor's office or shopping? Answer Date of Assessment Author No 05/24/2022 9:36 AM Sherlyn Ragsdale RN documented as of this encounter Mental Status * Because of a physical, mental, or emotional condition, do you have serious difficulty concentrating, remembering, or making decisions? Answer Entry Date Author No 05/24/2022 9:36 AM Sherlyn Ragsdale RN documented in this encounter Plan of Treatment Not on file documented as of this encounter Visit Diagnoses Not on filedocumented in this encounter Care Teams Top Collar Baster Relationship Specialty Start Date End Date Awais Pablo DO PCP - General Internal Medicine 05/12/22 documented as of this encounter
--- OUTSIDE RECORDS SUMMARY | 2024-11-24 08:00 | XMS_ITS | Encounter Summary ---
Author Organization [facility] Address [address] [place] [address] Care Team Providers Care Adult Crossing Guard Name Role Phone Awais Pablo Primary Care Provider [phone] Source Comments In the event this information is protected by the Federal Confidentiality of Alcohol and Drug AbusePatient Records regulations: The Federal rules restrict any use of the information to criminally investigate or prosecute any alcohol or drug abuse patient.[facility] Encounter Details Date Type Department Care Team (Late st Contact Info) Description 06/30/2022 Get Medical Advice Urology [address] [place] [id number] Calvin Coffey MD 24-hr. urine Social History Tobacco Use Types Packs/Day Years [...] N ot on file 06/30/2022 Data from: https://www.neighborhoodatlas.medicine.[facility].edu/. Last address used for calculation [address] [facility] 06/30/2022 Sex and Gender Information Value Date Recorded Sex Assigned at Not on file Legal Sex Male 11:29 AM EDT Gender Identity Not on file Sexual Orientation Not on file documented as of this encounter Functional Status [...] on filedocumented in this encounter Care Teams Adult Crossing Guard Relationship Specialty Start Date End Date Awais Pablo DO PCP - General Internal Medicine 05/12/22 documented as of this encounter
--- OUTSIDE RECORDS SUMMARY | 2024-11-24 08:00 | XMS_ITS | Encounter Summary ---
Author Organization [employer] Address [id number] [address] [place] [address] Care Team Providers Care Plunger Scoop Operator Name Role Phone Awais Pablo Primary Care Provider [phone] Reason for Referral * Diagnostic Imaging (Routine) - Closed Specialty Diagnoses / Procedures Referred By Asherac t Referred To Contact Radiology Diagnoses Pain Procedures CT brain without contrast [facility] [address] [place] [phone] Phone: tel: fax: Referral ID Status Reason Start Date Expiration Date Visits Re quested Visits Authorized [id number] Closed 01/12/2023 01/12/2024 1 1 * Diagnostic Imaging (Routine) - Closed Specialty Diagnoses / Procedures Referred By Contac t Referred To Contact Radiology Diagnoses Pain Procedures CT brain without contrast [facility] [address] [place] [phone] Phone: tel: fax: Referral ID Status Reason Start Date Expiration Date Visits Re quested Visits Authorized [id number] Closed 01/12/2023 01/12/2024 1 1 Encounter Details Date Type Department Care Team (Late st Contact Info) Description 01/12/2023 Orders Only [facility] [address] [place] [phone] Transcribe, Orders Support User Pain (Primary [...] encounter Results * CT brain without contrast (01/09/2023 9:50 AM EDT) us Scanning Provider External IMG CT ORDERABLES Fin al Result * CT brain without contrast (01/08/2023 1:00 PM EDT) us Scanning Provider External IMG CT ORDERABLES Fin al Result documented in this encounter Visit Diagnoses Diagnosis Pain- Primary Generalized pain documented in this encounter Additional Health Concerns Assessment Noted Time PHQ-9 Depression Total Score: 0 12/14/19 23 12:15 PM EDT documented as of this encounter Care Teams Plunger Scoop Operator Relationship Specialty Start Date End Date Awais Pablo DO [address] [place] [address] PCP - General Internal Medicine 12/13/22 documented as of this encounter
--- OUTSIDE RECORDS SUMMARY | 2024-11-24 08:00 | XMS_ITS | Clinical Summary ---
Author Organization [employer] Address [facility] [id number] [address] [place] [address] Care Team Providers Care Consulting Nurse Name Role Phone Awais Pablo DO Primary Care Provider [phone] Allergies No known active allergies Medications * This document contains information received from the source organization and may not represent a complete record from that organization. carvediloL (COREG) 6.25 mg tablet Take 1 tablet (6.25 mg total) by mouth in the morning and 1 tablet (6.25 mg total) before bedtime. 3 Active acetaminophen (TYLENOL) 325 mg tablet Take 2 tablets (650 mg total) by mouth every 6 (six) hours as needed for pain or headaches. 30 tablet 3 Active amitriptyline (ELAVIL) 10 mg tablet Take 1 tablet (10 mg total) by mouth nightly. 3 Active aspirin 81 mg Take 1 tablet (81 mg total) by mouth in the morning. 3 Active atorvastatin (LIPITOR) 10 mg tablet Take 1 tablet (10 mg total) by mouth nightly. 3 Active melatonin (CIRCADIN) tablet Take 1 tablet (3 mg total) by mouth nightly. 0 3 Active ondansetron ODT (ZOFRAN ODT) 4 mg disintegrating tablet Dissolve 2 tablets (8 mg total) on tongue every 12 (twelve) hours as needed for nausea. 3 Active venlafaxine XR (EFFEXOR XR) 37.5 mg 24 hr capsule Take 1 capsule (37.5 mg total) by mouth in the morning. Active polyethylene glycol (MIRALAX) 17 gram/dose powder Take by mouth. 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 Essential hypertension 05/09/2022 Overview (02/22/2023): Last Assessment & Plan: Assessment: Managed with carvedilol (COREG) BP this visit 148/92 Denies SOB, dizziness, lightheadedness, palpitations, syncope or chest pain Immunizations Immunization Administration Dates Next Due Influenza, Live, Intranasal 03/11/2019 Influenza, Unspecified 04/05/2022 Family History Medical History Relation Name Comments Diabetes Brother Heart disease Brother Cancer Mother Heart disease Mother Relation Name Status Comments Brother Mother Social History Tobacco Use Types Packs/Day Years Used Date Smoking Tobacco: Never Smokeless Tobacco: Never Tobacco Cessation:Counseling Given: Not Answered Alcohol Use Standard Drinks/Week Comments Not Currently [...] got money to buy more. Never True 12/05/2023 Within the past 12 months th e food we bought just didn't last and we didn't have money to get more. Never True 12/05/2023 Sex and Gender Information Value Date Recorded Sex Assigned at Not on file Legal Sex Male 4:35 PM EDT Gender Identity Not on file Sexual Orientation Not on file Last Filed Vital Signs Vital Sign Reading Time Taken Comments Blood Pressure 119/83 09/05/2023 12:46 PM EDT Pulse 93 09/05/2023 12:46 PM EDT Temperature 36.6 C (97.9 F) 02/09/2023 3:23 PM EDT Respiratory Rate 16 02/09/2023 3:23 PM EDT Oxygen Saturation 94% 02/09/2023 3:23 PM EDT Inhaled Oxygen Concentration - - Weight 140.6 kg (310 lb) 12/05/2023 12:55 PM EDT Height 190.5 cm (6' 3 ) 12/05/2023 12:55 PM EDT Body Mass Index 38.75 12/05/2023 12:55 PM EDT Plan of Treatment Health Maintenance Due Date Last Done Comments Adult BMI Follow Up Plan 1990 Zoster (Shingles) Vaccine (1 of 2) 2022 COVID-19 Vaccine ( - 2023-2 5 season) 2024 04/11/2022, 04/06/2021, 07/07/2020, Additional history exists Depression Screening 05/30/2024 05/30/2023 Adult BMI Screening 12/04/2024 12/05/2023 Tobacco Screening 12/04/2024 12/05/2023 Influenza Vaccine 02/09/2025 04/05/2022, 03/11/2019 DTaP,Tdap and Td Vaccines (2 - Td or Tdap) 03/11/2030 03/11/2020 Goals Goal Patient Goal Type Associated Problems Recent Progress Patient-Stated? Author Patient will have a safe DC General Yes Mica Frias RN Note: Evaluation of progress towards goal: Pt will have a safe DC. Medical Devices Implanted Type Area Automat Watcher Device Identifier Shelf Expiration Date Model / Serial / Lot Patch Dura 3x3in Thk3.5mm Crnmxf Drmtrx-Onlay + Npor Rgnrt Rpl [id number] - [id number] Implanted:Qt y: 1 on 12/13/2022 by Angélica Toussaint MD at [facility] Graft MONIK CRANIOMAXILLOFACIAL 09/08/2025 [id number] / / [id number] Valve Shnt Cdmn Certas + Sphgrd Inln Pr - [id number] Implanted:Qt y: 1 on 12/30/2022 by Angélica Toussaint MD at [facility] Other Implant N/A: Abdomen [employer]looks ([email or web address] [id number] / / Insurance ANTHEM Advance Directives Documents on File Type Date Recorded Patient Tourist Cabin Keeper Expl anation Durable Power of Recovery Operator Helper 01/05/2023 3:03 PM * Full Code (Latest Code Status on File) Date Activated Date Inactivated Comments 12/13/2022 11:27 AM 01/03/2023 3:22 PM Care Teams Consulting Nurse Relationship Specialty Start Date End Date Awais Pablo DO [address] [place] [address] PCP - General Internal Medicine 12/13/22
--- OUTSIDE RECORDS SUMMARY | 2024-11-24 08:00 | XMS_ITS | Referral Summary ---
Author Organization [facility] Address [address] [place] [address] Care Team Providers Care Investigator Welfare Name Role Phone Unavailable Primary Care Provider [...]
--- OUTSIDE RECORDS SUMMARY | 2024-11-24 08:00 | XMS_ITS | Encounter Summary ---
Author Organization [facility] Address [address] [place] [address] Care Team Providers Care Outer Diameter Technician Name Role Phone Awais Pablo Primary Care Provider [phone] Source Comments In the event this information is protected by the Federal Confidentiality of Alcohol and Drug AbusePatient Records regulations: The Federal rules restrict any use of the information to criminally investigate or prosecute any alcohol or drug abuse patient.[facility] Encounter Details Date Type Department Care Team (Late st Contact Info) Description 05/12/2022 Patient Msg Urology [address] [place] [address] Calvin Coffey MD Urine culture Social History Tobacco Use Types Packs/Day Years [...] on filedocumented in this encounter Care Teams Outer Diameter Technician Relationship Specialty Start Date End Date Awais Pablo DO PCP - General Internal Medicine 05/12/22 documented as of this encounter
--- OUTSIDE RECORDS SUMMARY | 2024-11-24 08:00 | XMS_ITS | Encounter Summary ---
Author Organization [facility] Address [address] [place] [address] Care Team Providers Care Custom Leather Products Maker Name Role Phone Awais Pablo Primary Care Provider [phone] Source Comments In the event this information is protected by the Federal Confidentiality of Alcohol and Drug AbusePatient Records regulations: The Federal rules restrict any use of the information to criminally investigate or prosecute any alcohol or drug abuse patient.[facility] Encounter Details Date Type Department Care Team (Late st Contact Info) Description 05/25/2022 Patient Msg Urology [address] [place] [address] Calvin Coffey MD Urinary retention Social History Tobacco Use Types Packs/Day Years [...] on filedocumented in this encounter Care Teams Custom Leather Products Maker Relationship Specialty Start Date End Date Awais Pablo DO PCP - General Internal Medicine 05/12/22 documented as of this encounter
--- OUTSIDE RECORDS SUMMARY | 2024-11-24 08:00 | XMS_ITS | Encounter Summary ---
Author Organization [facility] Address [id number] [address] [place] [address] Care Team Providers Care Audio Visual Arts Director Name Role Phone Awais Pablo DO Primary Care Provider [phone] Encounter Details Date Type Department Care Team ([facility] st Contact Info) Description 05/15/2023 Documentation [facility] [address] [place] [address] Angélica Toussaint MD [address] [facility] [address] [place] [address] Social History Tobacco Use Types Packs/Day Years [...] PHQ-2 Answer Date Recorded Total Score 0 02/21/2023 Housing Instability Answer Date Recorde d Are [...] got money to buy more. Never True 02/21/2023 Within the past 12 months th e food we bought just didn't last and we didn't have money to get more. Never True 02/21/2023 Sex and Gender Information Value Date Recorded [...] Noted Time PHQ-9 Depression Total Score: 0 02/22/20 23 3:08 PM EDT documented as of this encounter Care Teams Audio Visual Arts Director Relationship Specialty Start Date End Date Awais Pablo DO [address] [place] [address] PCP - General Internal Medicine 12/13/22 documented as of this encounter
--- OUTSIDE RECORDS SUMMARY | 2024-11-24 08:00 | XMS_ITS | Encounter Summary ---
Author Organization [facility] Address [id number] [address] [place] [address] Care Team Providers Care Detonator Assembler Name Role Phone Awais Pablo Primary Care Provider Encounter Details Date Type Department Care Team ([facility] st Contact Info) Description 11/26/2023 Orders Only [facility] [address] [place] [address] Álvaro Jenkins PA [address] [facility] [address] [place] [address] S/P SLD EDUCATIONAL AIDE shunt Social History Tobacco Use Types Packs/Day Years [...] documented as of this encounter Visit Diagnoses Diagnosis S/P SLD EDUCATIONAL AIDE shunt Presence of cerebrospinal fluid drainage device documented in this encounter Additional Health Concerns Assessment Noted Time PHQ-9 Depression Total Score: 0 05/30/20 23 2:14 PM EST documented as of this encounter Care Teams Detonator Assembler Relationship Specialty Start Date End Date Awais Pablo DO [address] [place] [address] PCP - General Internal Medicine 12/13/22 documented as of this encounter
[2024-11-24 08:30] LABS: Estimated Average Glucose 157 mg/dL; Glycohemoglobin A1C 7.1 % (4.5-6.2)
[2024-11-24 08:35] LABS: Basophils Percent Auto 0.3 % (0.2-2.0); Eosinophils Absolute Auto 0.1 10^3/uL (0.0-0.7); Eosinophils Percent Auto 1.3 % (0.9-7.0); Hematocrit 41.8 % (42.0-54.0); Hemoglobin 12.9 g/dL (14.0-18.0); Immature Granulocytes Abs Auto 0.02 10^3/uL (0.00-0.03); Immature Granulocytes Pct Auto 0.3 % (0.0-0.5); Lymphocytes Percent Auto 26.5 % (20.5-60.0); Mean Corpuscular HGB Conc 30.9 g/dL (29.9-35.2); Mean Corpuscular Hemoglobin 24.1 pg (25.9-34.0); Mean Corpuscular Volume 78.1 fL (80.0-94.0); Mean Platelet Volume 9.8 fL (9.5-13.5); Monocytes Absolute Auto 0.6 10^3/uL (0.3-0.8); Monocytes Percent Auto 7.3 % (1.7-12.0); Neutrophils Percent Auto 64.3 % (43.0-75.0); Platelet Count 329 10^3/uL (150-450); Red Blood Count 5.35 10^6/uL (4.70-6.10); Red Cell Distribution Width 15.2 % (11.0-15.0); White Blood Count 7.7 10^3/uL (4.0-11.0)
[2024-11-24 08:55] LABS: Alanine Aminotransferase 26 U/L (16-63); Albumin Globulin Ratio 0.7; Alkaline Phosphatase 106 U/L (46-116); Anion Gap 14.4; Aspartate Amino Transferase 18 U/L (15-37); BUN Creatinine Ratio 20.7; Bilirubin Total 0.8 mg/dL (0.2-1.0); Calcium 8.6 mg/dL (8.5-10.1); Carbon Dioxide 25.7 mmol/L (21.0-32.0); Chloride 103 mmol/L (98-107); Cholesterol 95 mg/dL (<=200); Estimated GFR (African America >60 (>=60 mL/min/1.73m^2); Estimated GFR (Non-African Ame >60 (>=60 mL/min/1.73m^2); Globulin 4.2 g/dL; Glucose 140 mg/dL (74-106); HDL Cholesterol 47 mg/dL (40-60); LDL Cholesterol Calculated 35.8 mg/dL; Potassium 4.1 mmol/L (3.5-5.1); Sodium 139 mmol/L (136-145); Total Protein 7.2 g/dL (6.4-8.2); Triglycerides 61 mg/dL (<=150); VLDL CHOLESTEROL 12.2 mg/dL
== END 2024-11-24 07:57 | disposition home or self-care (01) ==
LOC: LAB 07:58
PROVIDERS: PCP Internal Medicine; Visit Provider Internal Medicine
DX: Z00.00 Encounter for general adult medical examination without abnormal findings (principal); Z12.5 Encounter for screening for malignant neoplasm of prostate
CPT/HCPCS: 36415; 80053; 80061; 83036; 84443; 85025; G0103

== ENCOUNTER 2024-12-01 08:17 | Outpatient (OUT) | payer BC, SELFPAY ==
--- OUTSIDE RECORDS SUMMARY | 2018-08-28 09:15 | XMS_ITS | Continuity of Care Document ---
Author [facility] Address [address] [facility] [place] [address] Phone Care Team Providers Care Endless Track Vehicle Supervisor Name Role Phone Yoli Porter CNP Unavailable [...] Providers Copied on Encounter OFFICE/OUTPATI ENT VISIT, [facility] [employer] [facility], [address] [place] [address], [id number], [place] tel:[phone] [facility] No Information 0 9 Charlotte Kent. [address], [id number], [place]. tel:[phone] Referring Provider: Yoli Porter, [facility] [address] [facility] [address], [place], [address] . tel:[phone] OFFICE/OUTPATI ENT VISIT, [facility] [employer] [facility], [address] [place] [address], [id number], tel:[phone] [facility] No Information 8 Charlotte Kent. [address] [facility] [address], [place], [place], [id number], [place]. tel:[phone] Referring Provider: Yoli Charlotte, [address] [facility] [address], [place], [address] . tel:[phone] OFFICE/OUTPATI ENT VISIT, [employer] [facility], [address], [place], [place], [id number], [place] tel:[phone] [place] [facility] No Information 7 No Information OFFICE/OUTPATI ENT VISIT, [employer] [facility], [address] [place] [address] [address], [place], [place], [id number], [place] tel:[phone] [place] [facility] No Information 6 No [employer] [facility], [address] [place] [address] [address], [place], [place], [address], [place] tel:[phone] [facility] No Information 6 No [employer] [facility], [address] [place] [address] Road [address], [place], [place], [id number], [place] tel:[phone] [facility] No Information 6 No [employer] [facility], [address] [place] [address] Road [address], [place], [place], [id number], [place] tel:[phone] [facility] IP No Information 6 No Information [employer] [facility], [address] [place] [address] [address], [place], [place], [id number], [place] tel:[phone] [facility] IP No Information 6 Yeimi Bro. [facility] [address] [facility] [address], [place], [place], [id number], [place]. tel:[phone] Referring Provider: Dieudonne Perkins, [address] [facility] [address], [place], [address] . tel:[phone] OFFICE/OUTPATI ENT VISIT, [employer] [facility], [address] [place] [address] Road [address], [place], [place], [id number], [place] tel:[phone] [facility] No Information 6 Yeimi Bro. [address] [facility] [address], [place], [place], [id number], [place]. tel:[phone] Referring Provider: Dieudonne Prekins, [address] [facility] [address], [place], [address] . tel:[phone] OFFICE CONSULTATION [facility], [address] [place] [address] [address], [place], [place], [id number], tel:[phone] [facility] No Information Yeimi Bro. [address] [facility] [address], [place], [place], [id number], [place]. tel:[phone] Referring Provider: Dieudonne Perkins, [address] [facility] [address], [place], [address] . tel:[phone] Family History Family Member Type Diagnosis Age At Onset No Information Payers Payer name Insurance type Covered constitution party ID Jarodfrank coridonna(s) [facility] CI [id number] Social History Type Description Quantity Date Captured [...]
--- OUTSIDE RECORDS SUMMARY | 2024-12-01 08:23 | XMS_ITS | Encounter Summary ---
Author Organization [facility] Address [address] [place] [address] Care Team Providers Care Watch And Clock Repairer Name Role Phone Awais Pablo Primary Care Provider [phone] Source Comments In the event this information is protected by the Federal Confidentiality of Alcohol and Drug AbusePatient Records regulations: The Federal rules restrict any use of the information to criminally investigate or prosecute any alcohol or drug abuse patient.[facility] Encounter Details Date Type Department Care Team (Late st Contact Info) Description 06/30/2022 Get Medical Advice Urology [address] [place] [id number] Calvin Coffey MD 24-hr. urine Social History [...] N ot on file 06/30/2022 Data from: https://www.neighborhoodatlas.medicine.[facility].edu/. Last address used for calculation [address] [facility] 06/30/2022 Sex and Gender Information Value Date [...] on filedocumented in this encounter Care Teams Watch And Clock Repairer Relationship Specialty Start Date End Date Awais Pablo DO PCP - General Internal Medicine 05/12/22 documented as of this encounter
--- OUTSIDE RECORDS SUMMARY | 2024-12-01 08:24 | XMS_ITS | Encounter Summary ---
Author Organization [employer] Address [id number] [address] [place] [address] Care Team Providers Care Economics Consultant Name Role Phone Awais Pablo Primary Care Provider [phone] Reason for Referral * Diagnostic Imaging (Routine) - Closed Specialty Diagnoses / Procedures Referred By Asherac t Referred To Contact Radiology Diagnoses Pain Procedures CT brain without contrast [facility] [address] [place] [phone] Phone: tel: fax: Referral ID Status Reason Start Date Expiration Date Visits Re quested Visits Authorized [id number] Closed 01/12/2023 01/12/2024 1 1 * Diagnostic Imaging (Routine) - Closed Specialty Diagnoses / Procedures Referred By Contac t Referred To Contact Radiology Diagnoses Pain Procedures CT brain without contrast [facility] [address] [place] [phone] Phone: tel: fax: Referral ID Status Reason Start Date Expiration Date Visits Re quested Visits Authorized [id number] Closed 01/12/2023 01/12/2024 1 1 Encounter Details Date Type Department Care Team (Late st Contact Info) Description 01/12/2023 Orders Only [facility] [address] [place] [phone] Transcribe, Orders Support User Pain (Primary [...] documented as of this encounter Care Teams Economics Consultant Relationship Specialty Start Date End Date Awais Pablo DO [address] [place] [address] PCP - General Internal Medicine 12/13/22 documented as of this encounter
--- OUTSIDE RECORDS SUMMARY | 2024-12-01 08:24 | XMS_ITS | Encounter Summary ---
Author Organization [facility] Address [facility] [place] [address] Care Team Providers Care Investigation Specialist Name Role Phone Awais Pablo Primary Care Provider [phone] Source Comments In the event this information is protected by the Federal Confidentiality of Alcohol and Drug AbusePatient Records regulations: The Federal rules restrict any use of the information to criminally investigate or prosecute any alcohol or drug abuse patient.[facility] Encounter Details Date Type Department Care Team (Late st Contact Info) Description 05/15/2022 Patient Msg [facility] [address] [place] [address] Provider, [facility] Pre procedure instructions Social History [...] on filedocumented in this encounter Care Teams Investigation Specialist Relationship Specialty Start Date End Date Awais Pablo DO PCP - General Internal Medicine 05/12/22 documented as of this encounter
--- OUTSIDE RECORDS SUMMARY | 2024-12-01 08:24 | XMS_ITS | Encounter Summary ---
Author Organization [facility] Address [facility] [id number] [address] [place] [address] Care Team Providers Care Certified Welder Name Role Phone Awais Pablo DO Primary Care Provider [phone] Encounter Details Date Type Department Care Team ([facility] st Contact Info) Description 01/11/2023 Telephone [facility] [address] [place] [address] Angélica Toussaint MD [address] [facility] [address] [place] [address] Social History Tobacco Use Types Packs/Day Years [...] documented as of this encounter Care Teams Certified Welder Relationship Specialty Start Date End Date Awais Pablo DO [address] [place] [address] PCP - General Internal Medicine 12/13/22 documented as of this encounter
--- OUTSIDE RECORDS SUMMARY | 2024-12-01 08:24 | XMS_ITS | Clinical Summary ---
Author Organization [facility] Address [address] [place], [place] [address] Care Team Providers Care Senior Android Developer Name Role Phone Awais Pablo Primary Care Provider [phone] Allergies Active Allergy Reactions Criticality Noted Date [...] N ot on file 06/30/2022 Data from: [email or web address] Last address used for calculation [address] [facility] 06/30/2022 Sex and Gender Information Value Date [...] history exists Medical Devices Implanted Type Area Software Maintenance Engineer Device Identifier Shelf Expiration Date Model / Serial / Lot Clip Clip Abdomen Stent Uro Unvrs Frm 7fr 30cm Implanted:Qty : 1 on 05/22/2022 at [facility] Urologic Stents Right: [employer] 02/22/2024 [id number] / / [id number] Procedures Procedure Name Priority Date/Time Associated Diagnosis Comments BASIC METABOLIC PANEL Routine 05/24/2022 5:09 AM EST from Last 3 Months or Most Recently Relevant to Health Maintenance Results * (ABNORMAL) BASIC METABOLIC PNL (05/24/2022 5:09 AM EST) Glucose 96 74 - 99 mg/dL 05/24/2022 6:33 AM [facility] Comment: The [place] Diabetes Association (ADA) provides guidance for cutoff [...] Standards of Medical Care in Diabetes 2016, [place] Diabetes Association. Diabetes Care. 2016.39(Suppl 1). BUN 14 9 - 24 mg/dL 05/24/2022 6:33 AM [facility] Creatinine 0.94 0.73 - 1.22 mg/dL 05/24/2022 6:33 AM [facility] Sodium 138 136 - 144 mmol/L 05/24/2022 6:33 AM [facility] Potassium 3.6(L) 3.7 - 5.1 mmol/L 05/24/2022 6:33 AM [facility] Chloride 104 97 - 105 mmol/L 05/24/2022 6:33 AM [facility] CO2 24 22 - 30 mmol/L 05/24/2022 6:33 AM [facility] Anion Gap 10 9 - 18 mmol/L 05/24/2022 6:33 AM [facility] Calcium, Total 8.8 8.5 - 10.2 mg/dL 05/24/2022 6:33 AM [facility] Estimated Glomerular Filtration Rate 99 >=60 mL/min/1.7 3m 05/24/2022 6:33 AM [facility] Comment:Estimated Glomerular Filtration Rate (eGFR) [...] us Calvin Coffey MD LABORATORY Final Result [facility] [address] [facility] [address] [place] [address], [place] from Last 3 Months or Most Recently Relevant to Health Maintenance Insurance [facility] PPO Care Teams Senior Android Developer Relationship Specialty Start Date End Date Awais Pablo DO PCP - General Internal Medicine 05/12/22
--- OUTSIDE RECORDS SUMMARY | 2024-12-01 08:24 | XMS_ITS | Encounter Summary ---
Author Organization [facility] Address [address] [place] [address] Care Team Providers Care Seed Specialist Name Role Phone Awais Pablo Primary Care Provider [phone] Source Comments In the event this information is protected by the Federal Confidentiality of Alcohol and Drug AbusePatient Records regulations: The Federal rules restrict any use of the information to criminally investigate or prosecute any alcohol or drug abuse patient.[facility] Encounter Details Date Type Department Care Team (Late st Contact Info) Description 05/12/2022 Patient Msg Urology [address] [place] [address] Calvin Coffey MD Urine culture Social History [...] on filedocumented in this encounter Care Teams Seed Specialist Relationship Specialty Start Date End Date Awais Pablo DO PCP - General Internal Medicine 05/12/22 documented as of this encounter
--- OUTSIDE RECORDS SUMMARY | 2024-12-01 08:24 | XMS_ITS | Clinical Summary ---
Author Organization [facility] Address [address] [place] [address] Care Team Providers Care Angle Furnaceman Name Role Phone Unavailable Primary Care Provider Unavailabl e Social History Tobacco Use Types Packs/Day Years Used Date Smoking Tobacco: Never Assessed Sex and Gender Information Value Date Recorded Sex Assigned at Not on file Legal Sex Male 6:35 PM EDT Gender Identity Not on file Sexual Orientation Not on file Last Filed Vital Signs Vital Sign Reading Time Taken Comments Blood Pressure 112/80 01/03/2018 12:00 PM EDT Pulse - - Temperature - - Respiratory Rate - - Oxygen Saturation - - Inhaled Oxygen Concentration - - Weight 143 kg (315 lb) 01/03/2018 12:00 PM EDT Height 190.5 cm (6' 3 ) 01/03/2018 12:00 PM EDT Body Mass Index 39.37 01/03/2018 12:00 PM EDT Plan of Treatment Not on file
--- OUTSIDE RECORDS SUMMARY | 2024-12-01 08:24 | XMS_ITS | Clinical Summary ---
Author Organization [employer] tem Address [id number] [address] [place] [address] Care Team Providers Care It Recruiter Name Role Phone Awais Pablo DO Primary Care Provider [phone] Allergies No known active allergies Medications * [...] safe [place]. Medical Devices Implanted Type Area Agricultural Labor Camp Manager Device Identifier Shelf Expiration Date Model / Serial / Lot Patch Dura 3x3in Thk3.5mm Crnmxf Drmtrx-[place] + Npor Rgnrt Rpl [id number] - [id number] Implanted:Qt y: 1 on 12/13/2022 by Angélica Toussaint MD at [facility] Graft MONIK CRANIOMAXILLOFACIAL 09/08/2025 [id number] / / [id number] Valve Shnt Cdmn Certas + Sphgrd Inln Pr - [id number] Implanted:Qt y: 1 on 12/30/2022 by Angélica Toussaint MD at [facility] Other Implant N/A: Abdomen [employer] [id number] / / Insurance ANTHEM Advance Directives Documents on File Type Date Recorded Patient Waste Management Engineer Expl anation Durable Power of Lead Tinner 01/05/2023 3:03 PM * Full Code (Latest Code Status on File) Date Activated Date Inactivated Comments 12/13/2022 11:27 AM 01/03/2023 3:22 PM Care Teams It Recruiter Relationship Specialty Start Date End Date Awais Pablo DO [address] [place] [address] PCP - General Internal Medicine 12/13/22
--- OUTSIDE RECORDS SUMMARY | 2024-12-01 08:24 | XMS_ITS | Clinical Summary ---
Author Organization [facility] Address [address] [place] [address] Care Team Providers Care Food Packer Name Role Phone Unavailable Primary Care Provider [...]
--- OUTSIDE RECORDS SUMMARY | 2024-12-01 08:24 | XMS_ITS | Encounter Summary ---
Author Organization [facility] Address [id number] [address] 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
--- OUTSIDE RECORDS SUMMARY | 2024-12-01 08:24 | XMS_ITS | Encounter Summary ---
Author Organization [facility] Address [address] [place] [address] Care Team Providers Care Tray Worker Name Role Phone Awais Pablo Primary Care Provider [phone] Source Comments In the event this information is protected by the Federal Confidentiality of Alcohol and Drug AbusePatient Records regulations: The Federal rules restrict any use of the information to criminally investigate or prosecute any alcohol or drug abuse patient.[facility] Encounter Details Date Type Department Care Team (Late st Contact Info) Description 05/25/2022 Patient Msg Urology [address] [place] [address] Calvin Coffey MD Urinary retention Social History [...] on filedocumented in this encounter Care Teams Tray Worker Relationship Specialty Start Date End Date Awais Pablo DO PCP - General Internal Medicine 05/12/22 documented as of this encounter
--- OUTSIDE RECORDS SUMMARY | 2024-12-01 08:24 | XMS_ITS | Encounter Summary ---
Author Organization [facility] Address [id number] [address] [place] [address] Care Team Providers Care Thermit Welding Machine Operator Name Role Phone SamyAwais Licha MANRIQUE Primary Care Provider Encounter Details Date Type Department Care Team ([facility] st Contact Info) Description 09/13/2023 Telephone [facility] [address] [place] [address] Álvaro Jenkins PA [address] [facility] [address] [place] [address] Social History Tobacco Use Types Packs/Day Years [...] documented as of this encounter Care Teams Thermit Welding Machine Operator Relationship Specialty Start Date End Date Awais Pablo DO [address] [place] [address] PCP - General Internal Medicine 12/13/22 documented as of this encounter
--- OUTSIDE RECORDS SUMMARY | 2024-12-01 08:24 | XMS_ITS | Referral Summary ---
Author Organization [facility] Address [address] [place] [address] Care Team Providers Care Hot Mix Operator Name Role Phone Unavailable Primary Care Provider [...]
--- OUTSIDE RECORDS SUMMARY | 2024-12-01 08:24 | XMS_ITS | Encounter Summary ---
Author Organization [facility] Address [address] [place] [address] Care Team Providers Care Excavation Laborer Name Role Phone Awais Pablo Primary Care Provider [phone] Source Comments In the event this information is protected by the Federal Confidentiality of Alcohol and Drug AbusePatient Records regulations: The Federal rules restrict any use of the information to criminally investigate or prosecute any alcohol or drug abuse patient.[facility] Encounter Details Date Type Department Care Team (Late st Contact Info) Description 05/24/2022 Patient Msg Urology [address] [place] [address] Calvin Coffey MD Stent removal Social History [...] of Assessment Author No 05/24/2022 9:36 AM Sehrlyn Ragsdale RN * Do you have difficulty [...] on filedocumented in this encounter Care Teams Excavation Laborer Relationship Specialty Start Date End Date Awais Pablo DO PCP - General Internal Medicine 05/12/22 documented as of this encounter
--- OUTSIDE RECORDS SUMMARY | 2024-12-01 08:24 | XMS_ITS | Encounter Summary ---
Author Organization [employer] [facility] Address [id number] [address] [place] [address] Care Team Providers Care Control System Computer Scientist Name Role Phone Awais Pablo DO Primary Care Provider Reason for Referral * Diagnostic Imaging (Routine) - Closed Specialty Diagnoses / Procedures Referred By Contac t Referred To Contact Radiology Diagnoses Pain Procedures CT brain without contrast [facility] [address] [place] [phone] Phone: tel: fax: Referral ID Status Reason Start Date Expiration Date Visits Re quested Visits Authorized [id number] Closed 02/08/2023 02/08/2024 1 1 * Diagnostic Imaging (Routine) - Closed Specialty Diagnoses / Procedures Referred By Contac t Referred To Contact Radiology Diagnoses Pain Procedures MR brain without contrast [facility] [address] [place] [phone] Phone: tel: fax: Referral ID Status Reason Start Date Expiration Date Visits Re quested Visits Authorized [id number] Closed 02/08/2023 02/08/2024 1 1 * Diagnostic Imaging (Routine) - Closed Specialty Diagnoses / Procedures Referred By Contac t Referred To Contact Radiology Diagnoses Pain Procedures CT brain without contrast stroke alert [facility] [address] [place] [address] Phone: tel: fax: Referral ID Status Reason Start Date Expiration Date Visits Re quested Visits Authorized [id number] Closed 02/08/2023 02/08/2024 1 1 Encounter Details Date Type Department Care Team (Late st Contact Info) Description 02/08/2023 Orders Only [facility] [address] [place] [phone] Transcribe, Orders Support User Pain (Primary [...] documented as of this encounter Care Teams Control System Computer Scientist Relationship Specialty Start Date End Date Awais Pablo DO [address] [place] [address] PCP - General Internal Medicine 12/13/22 documented as of this encounter
--- OUTSIDE RECORDS SUMMARY | 2024-12-01 08:24 | XMS_ITS | Encounter Summary ---
Author Organization [facility] Address [id number] [address] [place] [address] Care Team Providers Care Aquaculture Director Name Role Phone Awais Pablo DO Primary Care Provider [phone] Encounter Details Date Type Department Care Team ([facility] st Contact Info) Description 05/15/2023 Documentation [facility] [address] [place] [address] Angélica Toussaint MD [address] [facility] [address] [place] [address] Social History Tobacco Use Types Packs/Day Years [...] documented as of this encounter Care Teams Aquaculture Director Relationship Specialty Start Date End Date Awais Pablo DO [address] [place] [address] PCP - General Internal Medicine 12/13/22 documented as of this encounter
[2024-12-01 08:51] LABS: Basophils Percent Auto 0.3 % (0.2-2.0); Eosinophils Absolute Auto 0.1 10^3/uL (0.0-0.7); Hematocrit 41.4 % (42.0-54.0); Hemoglobin 12.6 g/dL (14.0-18.0); Immature Granulocytes Abs Auto 0.02 10^3/uL (0.00-0.03); Immature Granulocytes Pct Auto 0.3 % (0.0-0.5); Lymphocytes Absolute Auto 2.3 10^3/uL (1.2-3.8); Lymphocytes Percent Auto 28.7 % (20.5-60.0); Mean Corpuscular HGB Conc 30.4 g/dL (29.9-35.2); Mean Platelet Volume 9.7 fL (9.5-13.5); Monocytes Absolute Auto 0.6 10^3/uL (0.3-0.8); Monocytes Percent Auto 7.1 % (1.7-12.0); Neutrophils Absolute Auto 4.9 10^3/uL (1.4-6.5); Neutrophils Percent Auto 62.6 % (43.0-75.0); Platelet Count 296 10^3/uL (150-450); Red Blood Count 5.24 10^6/uL (4.70-6.10); Red Cell Distribution Width 14.9 % (11.0-15.0); White Blood Count 7.9 10^3/uL (4.0-11.0)
[2024-12-01 09:29] LABS: Percent Iron Saturation 7.6 %
[2024-12-02 04:14] LABS: Vitamin B12 150 pg/mL (232-1245)
== END 2024-12-01 08:18 | disposition home or self-care (01) ==
LOC: LAB 08:21
PROVIDERS: PCP Internal Medicine; Visit Provider Internal Medicine
DX: D64.9 Anemia, unspecified (principal)
CPT/HCPCS: 36415; 82607; 82728; 82746; 83540; 83550; 85025; 85045

== ENCOUNTER 2025-05-09 09:41 | Emergency (ER) | payer BC, SELFPAY ==
--- OUTSIDE RECORDS SUMMARY | 2018-08-28 08:15 | XMS_ITS | Continuity of Care Document ---
Author [facility] [employer] [facility] Address [address] [place] [address] Phone Care Team Providers Care Inspector Floor Name Role Phone Yoli Porter CNP Unavailable Unavailable Procedures Procedure Date OFFICE/OUTPATIENT VISIT, EST OFFICE/OUTPATIENT VISIT, EST OFFICE/OUTPATIENT VISIT, EST OFFICE/OUTPATIENT VISIT, EST POSTOP FOLLOW-UP VISIT POSTOP FOLLOW-UP VISIT Gastric Bypass LAP GASTRIC BYPASS/CLAUDIA-EN-Y OFFICE/OUTPATIENT VISIT, EST OFFICE CONSULTATION Advance Directives Directive Yes / No Effective Date File Name No Information Encounters Encounter Description Practice Location Reason(s) For Visit Diagnoses Date Provider Providers Copied on Encounter OFFICE/OUTPATI ENT VISIT, [facility] [employer] [facility], [address] [place] [address], [id number], [place] tel:[phone] [facility] No Information 0 9 Charlotte Kent. [address], [id number], [place]. tel:[phone] Referring Provider: Yoli Porter, [facility] [address] [facility] [address], [place], [address] . tel:[phone] OFFICE/OUTPATI ENT VISIT, [facility] [employer] [facility], [address] [place] [address], [id number], tel:[phone] [facility] No Information 8 Charlotte Kent. [address] [facility] [address], [place], [place], [id number], [place]. tel:[phone] Referring Provider: Yoli Charlotte, [address] [facility] [address], [place], [address] . tel:[phone] OFFICE/OUTPATI ENT VISIT, [employer] [facility], [address], [place], [place], [id number], [place] tel:[phone] [facility] No Information 7 No Information OFFICE/OUTPATI ENT VISIT, [employer] [facility], [address] [place] [address] [address], [place], [place], [id number], [place] tel:[phone] [facility] No Information 6 No [employer] [facility], [address] [place] [address] [address], [place], [place], [id number], [place] tel:[phone] [facility] No Information 6 No [employer] [facility], [address] [place] [address] Road [address], [place], [place], [id number], [place] tel:[phone] [facility] No Information 6 No [employer] [facility], [address] [place] [address] Road [address], [place], [place], [id number], [place] tel:[phone] [facility] IP No Information 6 No Information [employer] [facility], [address] [place] [address] [address], [place], [place], [id number], [place] tel:[phone] [facility] IP No Information 6 Yeimi Bro. [facility] [address] [facility] [address], [place], [place], [id number], [place]. tel:[phone] Referring Provider: Dieudonne Perkins, [address] [facility] [address], [place], [address] . tel:[phone] OFFICE/OUTPATI ENT VISIT, [employer] [facility], [address] [place] [address] Road [address], [place], [place], [id number], [place] tel:[phone] [facility] No Information 6 Yeimi Bro. [address] [facility] [address], [place], [place], [id number], [place]. tel:[phone] Referring Provider: Dieudonne Perkins, [address] [facility] [address], [place], [address] . tel:[phone] OFFICE CONSULTATION [facility], [address] [place] [address] [address], [place], [place], [id number], tel:[phone] [facility] No Information Yeimi Bro. [address] [facility] [address], [place], [place], [id number], [place]. tel:[phone] Referring Provider: Dieudonne Perkins, [address] [facility] [address], [place], [address] . tel:[phone] Family History Family Member Type Diagnosis Age At Onset No Information Payers Payer name Insurance type Covered green party ID Jarodfrank coridonna(s) [facility] CI [id number] Social History Type Description Quantity Date Captured Comments Sex Male Smoking Status No Information Chief Complaint And Reason For Visit No Information Reason For Referral Reason For Referral No Information History Of Present Illness Encounter Date Complaint History Of Prese nt Illness No Information Functional Status Date Functional Assessmen t No Information Instructions Date Instruction Additional Infor mation No Information Assessments Type Assessment Date No Information Patient Care Teams Name Effective Dates (start - stop) Status Members No Information
--- OUTSIDE RECORDS SUMMARY | 2025-05-05 07:18 | XMS_ITS | Continuity of Care Document ---
Author Organization [facility] Address [address] [place] [address] Phone Care Team Providers Care Roof Plumber Name Role Phone Samy Awais MANRIQUE Primary Care Provider [phone] Awais Pablo DO Attending Provider Tova Zayas MD Attending Provider Care Teams Patient Care Team Team Status: Active Member Role/Relationship Status Dates Awais Pablo DO Primary Care Provider Active Visit Care Team Team Status: Inactive Member Role/Relationship Status Dates Awais Pablo DO Primary Care Provider Active Start: February 16, 2025 End: February 16Mervin Santos ProviderActiveStart: February 16, 2025 End: February 16, 2025 Visit Care Team Team Status: Inactive Member Role/Relationship Status Dates Awais Pablo DO Primary Care Provider Active Start: March 19, 2025 End: March 19, 2025Nicci Banda ProviderActiveStart: March 19, 2025 End: March 19, 2025 Patient Care Team Team Status: Inactive Member Role/Relationship Status Dates Awais Pablo DO Primary Care Provider Active Start: May 05, 2025 End: May 05Mervin Santos ProviderActiveStart: May 05, 2025 End: May 05, 2025 Chief Complaint and Reason for Visit Chief Complaint Admit Date B12 February 16, 2025 4:06pm B12 Shot March 19, 2025 4: 09pm possible kidney stone May 05 11:37am Reason for Visit Admit Date Pernicious anemia March 19, 2025 4: 09pm Allergies, Adverse Reactions, Alerts Allergen Type Severity Reaction Last Updated Verified Status No Known Allergies Allergy Unknown May 05, 2025 11:58amYesActive Social History Smoking Status Status Start Date End Date Date of Observa tion Never smoked tobacco (finding) January 14, 2023 10:58am Observation Status Observation Response Date of Response Legal Sex [facility] (finding) [facility] Family History Relationship Condition Age at Onset Recorded Date/T jesús mother Heart disease Unknown Malignant neoplasmUnknown Problems Active Problems Problem Diagnosis/Recorded Date Onset Date Status C omments COVID-19 August 27, 2023 11:44am Unknown Active Cerebellar infarction with occlusion or stenosis of cerebellar arteryMarch 2023 11:06amUnknownActiveScreening PSA (prostate specific antigen)May 13, 2024 6:59amUnknownActivePSA: 1.73 - 11/2020, 1.60 - 01/2022, 1.17 - 07/2023 Screening for colon cancerJune 2024 8:25amUnknownActiveElevated cholesterol August 27, 2023 11:06amUnknownActiveAnemiaJune 2024 12:31pmUnknownActive Pernicious anemiaJuly 2024 7:36amUnknownActiveSinus tachycardiaDecember 2023 9:47amUnknownActiveAcute venous embolism and thrombosis of deep vessels of distal end of right lower extremityMarch 2023 11:04amUnknown ActiveStenosis of left vertebral arteryMarch 2023 11:06amUnknownActive Cerebral atherosclerosisMay 2023 6:41amUnknownActiveWellness examination November 17, 2024 8:26amUnknownActiveIFG (impaired fasting glucose)August 27, 2023 11:06amUnknownActiveEssential hypertensionMarch 2023 11:06amUnknownActive ObesityMay 2023 2:30pmUnknownActiveInactive/Resolved Problems Problem Diagnosis/Recorded Date Onset Date Status C omments Impaired mobility and activities of daily living January 04, 2023 10:31am Unknown Resolved Problem List clean-up per request of Phys. EHR Cmte Dizziness January 14, 2023 11:02am Unknown Resolved Problem List clean-up per request of Phys. EHR Cmte Laceration January 09, 2023 12:07pm Unknown Resolved HydrocephalusJuly 2022 10:30amUnknownResolvedProblem List clean-up per request of Phys. EHR CmteTachycardiaJuly 2022 10:31amUnknownResolved Problem List clean-up per request of Phys. EHR CmteDVT, popliteal, acuteAugust 2022 3:27pmUnknownResolvedProblem List clean-up per request of Phys. EHR CmteCerebellar infarctJuly 2022 10:30amUnknownResolvedProblem List clean- up per request of Phys. EHR CmteObesity (BMI 35.0-39.9 without comorbidity)Jen 2022 10:30amUnknownResolvedProblem List clean-up per request of Phys. EHR CmteS/P CUT OFF TENDER GLASS shuntJuly 2022 10:30amUnknownResolvedProblem List clean-up per request of Phys. EHR CmteHypertensionJuly 2022 10:30amUnknownResolved Problem List clean-up per request of Phys. EHR CmteNauseaAugust 2022 11:02amUnknownResolvedProblem List clean-up per request of Phys. EHR Cmte Medications Medication Status Dose Units Route Directions Qty Days Refills S tart Date Stop Date End Date Reason(s) Instructions Adherence Amitriptyline 10 mg tablet Discontinued 0 .ROUTE.EZHAWRU383AoxsvSeptember 03, 2023 4:17pmJuly 2023 8:14amTAKE 1 TABLET BY MOUTH EVERY DAY AT BEDTIMEVenlafaxine 37.5 mg tabletDiscontinued0.ROUTE.COMPLEX 902023 4:17pmJuly 2023 8:14amTAKE 1 TABLET BY MOUTH EVERY DAY WITH FOOD FOR 30 DAYSCyproheptadine 4 mg tabletDiscontinued0.ROUTE.BQXVNTB318 September 03, 2023 4:17pmJuly 2023 8:14amTAKE 1 TABLET BY MOUTH EVERY DAY AT BEDTIMECarvedilol 6.25 mg tabletDiscontinued0.ROUTE.RNWUZNQ9617Urmb 2023 8:15amDecember 2023 9:36amTAKE 1 TABLET BY MOUTH TWICE A DAY WITH FOOD FOR 90 DAYSTamsulosin 0.4 mg capsuleDiscontinued0.ROUTE.BGRDWMT408Onov 2023 8:15amJuly 2023 8:14amTAKE 1 CAPSULE BY MOUTH EVERY DAY FOR 90 DAYS Atorvastatin 10 mg tabletDiscontinued0.ROUTE.XKIYAGK588Gxga 2023 7:40am April 21, 2024 1:04pmTAKE 1 TABLET BY MOUTH EVERY DAY FOR 90 DAYSAspirin 81 mg tablet,delayed release (DR/EC)Discontinued0.ROUTE.HVUGOAN970Zyqbwa 2023 4:17pmAugust 2024 7:11amTAKE 1 TABLET BY MOUTH EVERY DAY FOR 90 DAYS Atorvastatin 10 mg jtmimsHjwiylzqeoqq69WVSFAmdwg at bncazur19353Uamvwzho 11th, 2024 1:04pmOctober 2024 8:40amOndansetron 8 mg tablet,disintegrating Uoapepkovquq5KUGIMinbp 6 hours as needed for Nausea And Ahohaehw922323Dbklizrh 2023 9:20amJune 2024 8:29amCarvedilol 6.25 mg tabletDiscontinued6.25 MGPOEvery 12 kzdgu644016Wnvl2024 2:19pmJune 2024 2:20pmCarvedilol 6.25 mg tabletDiscontinued0.ROUTE.SCJHUPE6001Cbkx2024 2:20pmOctober 2024 8:40amTAKE 1 TABLET BY MOUTH TWICE A DAY WITH FOOD FOR 90 DAYSFolic Acid 1 mg uheuytKiydrmgxkgob7YIKHCpwwg66686Sjgj 23rd, 2025 11:00pmOctober 2024 8:40amPolysaccharide Iron Complex (Ferrex 150) 150 mg iron capsuleDiscontinued 956KSJAKhrnw15276Koil 2024 11:00pmOctober 2024 8:40amAspirin 81 mg tablet,delayed release (DR/EC)Discontinued0.ROUTE.STMTAFL299Wurscn 2024 7:11amOctober 2024 8:40amTAKE 1 TABLET BY MOUTH EVERY DAY FOR 90 DAYS Aspirin 81 mg tablet,delayed release (DR/EC)Entjko19QFVQWnhnc18994Qfwdbfc 2024 8:39amComplies with drug therapyAtorvastatin 10 mg hikqclSczrej02NZLYLbhcg at vgsvucd56704Ikothfh 2024 8:39amComplies with drug therapyCarvedilol 6.25 mg tabletActive6.25MGPOEvery 12 jdxop147523Utnqftw 2024 8:39am Complies with drug therapyFolic Acid 1 mg bzwkacWyhgry8OBZOYsxjd39272Tfsaobv 2024 8:40amComplies with drug therapyOndansetron 8 mg tablet,yjxmdizjnpzrtuHadxku4QQEKLiigz 6 hours as needed for Nausea And Vomiting 328634Fmlzeqc 2024 8:40amComplies with drug therapyPolysaccharide Iron Complex (Ferrex 150) 150 mg iron kiclvgnEqenay619JVVCJfsbq36222Wmjohrd 2024 8:40amComplies with drug therapyCarvedilol (Coreg) 6.25 mg Tablet Discontinued6.33RBHCT19EYgkr 2022 11:00pmAugust 2022 2:06pmmust administer with a meal/foodPolyethylene Glycol 3350 (Miralax) 17 gram Powder In DywognEqrpbetwdnbl26MDTJHvufy as needed for ConstipationJuly 2022 11:00pm January 23, 2023 2:06pmAtorvastatin 10 mg OzvlyrKtetnghutrqw14JDXIKjkpv at bedtimeJuly 2022 11:00pmAugust 2022 2:06pmSennosides-Docusate Sodium 8.6-50 mg PnpqbuSrhlgcpwzgca3JGJ-DGJIMTetmy dailyJuly 2022 11:00pmAugust 2022 2:07pmMelatonin 3 mg SuquirTpyxwajesrvc1WZRWLnimycwHedc 2022 11:00pmJuly 2023 8:14amAspirin 81 mg Tablet,Delayed Release (Dr/Ec) Yolkzqgawjpi17UCTAWtecr morningJuly 2022 11:00pmAugust 2022 2:06pm Amitriptyline 10 mg LtfwxdUnptwkkozgee22IZMHUyktf at bedtimeJuly 2022 11:00pmAugust 2022 2:07pmSemaglutide (Ozempic) 0.25 mg or 0.5 mg (2 mg/3 mL) Pen InjectorDiscontinued0.5MGSUBCUTevery weekJu2022 11:00pm[facility] 2023 11:27amApixaban (Eliquis) 5 mg QbqpunNgkvxszrjziq1EZWUMvvvg gzfgh4654 0August 2022 11:00pmMa2023 2:22pmAcetaminophen 500 mg Tablet Itdkenifcndr741JVUTB3X as needed for Ckzfkeup030230Yyaizu 2022 11:00pm August 27, 2023 11:25amVenlafaxine 37.5 mg Capsule,Extended Release 24hr Kqaenpjaogfe35.1ERSXHelhp10617Frmwbh 2022 11:00pmOur [facility] 2023 4:17pm Bacitracin 500 unit/gram ZmuwfkrhCzybohrnnovq4YRBBEMBBKZSRXFafpo bwryk00Aszkii 2022 11:00pmOur [facility] 2023 11:26amCyproheptadine 4 mg TabletDiscontinued 4MGPODaily at ckyscpa42823Rzrgbw 2022 11:00pmOur [facility] 2023 4:17pm Tamsulosin 0.4 mg CapsuleDiscontinued0.3YMMWCtriknz51600Cvlouh 2022 11:00pmMa2023 2:21pmOndansetron 4 mg Tablet,DisintegratingDiscontinued4 MGPOEvery 6 hours as needed for Nausea And Vnosqlhc3225Ajndqh 2022 11:00pm August 21, 2023 9:30amCarvedilol (Coreg) 6.25 mg TabletDiscontinued6.25PGWQL07I 12453Cngums 2022 2:06pmJune 2023 8:16ammust administer with a meal/foodPolyethylene Glycol 3350 (Miralax) 17 gram Powder In PacketDiscontinued 17GMPODaily as needed for Nsolcurdhiwg79765Bdbdlx 15th, 2023 2:06pmJuly 2023 8:14amAtorvastatin 10 mg IegkqnFavimbmxptff78BFLMIvtrd at clrbhsz80738 January 23, 2023 2:06pmJuly 2023 7:40amAspirin 81 mg Tablet,Delayed Release (Dr/Ec)Zkbzolegjmin10XRRNQppjx fwlvpbg67336Wembws2022 2:06pm January 21, 2024 4:17pmBacitracin 500 unit/gram klzegfeuAvwfdjektguz1DLTJSO TOPICALTwice bmxap8576.470July 2022 11:00pmAugust 2022 2:07pm Amitriptyline 10 mg ukmofgPkkbxoffctwr04SBAFIglyl at bedtimeOur [facility] 2023 11:00pmMar 2023 4:17pmCarvedilol 12.5 mg cxzcvfBezoxkqmolst24.5MGPOEvery 12 aafjq317755Xwkcdros 2023 9:35amJune 2024 2:19pmOndansetron 8 mg tablet,xarbgohfobrxhzUkjhspquzyip9JKYNMumcl 6 hours as needed for Nausea And Kneweavr609795Broucxuc 2023 9:36amDeceer 2023 9:20amTamsulosin 0.4 mg capsuleActive0.4MGPODaily at srmtpzz41921Rumdgwuv 2024 12:00amComplies with drug therapyTamsulosin 0.4 mg capsuleDiscontinued0.4MGPODailyJune 2023 11:00pmJune 2023 8:16amOndansetron 4 mg tablet,disintegrating Asqbtiyuylic2EUOLPncmr 6 hours as needed for Nausea And VomitingOur [facility] 2023 9:30amMarch 2023 12:18pmOndansetron 8 mg tablet,disintegratingDiscontinued 8MGPOEvery 6 hours as needed for Nausea And Rxsiuugl458205Dahax 2023 12:17pmDecember 2023 9:38amOndansetron 8 mg tablet,disintegrating Kdrzgudyaohs2ZVFOJtnec 6 hours as needed for Nausea And Xdmmwedh748055Juqx 2024 8:18amOctober 2024 8:40amAzithromycin 250 mg upmzkyHvzbsjjmqoaf175YS PO.ZPWIMSU745Pmxmoam 2024 12:00amJune 2024 7:59am2 tabs on first day followed by 1 tab on days 2-5 Immunizations Immunization Event Date Not Given Reason Dose Number [employer] Lot Number Reason(s) Given Vaccine Information Statement (VIS) Detail Administration Location Tetanus, Diphtheria adult, 5 Lf pres free abs Oc tober 2019 Medical Equipment Device Date Implanted Device Details CUT OFF TENDER GLASS shunt- [employer] December 30, 2022 Vital Signs Vital Reading Result Reference Range Collection Date/Time Height 73 [in_i] May 05, 2025 12:06rcDscvoi093.60 kgNov2024 12:02pmHeart Rate 76 /tjv10-885Otxwymhe 25th, 2025 12:02pmRespiratory rate12 /alw76-75Bxpthxgc 25th, 2025 12:02pmBP Clousisc243 mm[Hg]100-140Nov2024 12:02pmBP Pjenouljl81 mm[Hg]60-100Nov2024 12:02pmBMI (Body Mass Index)45.5 kg/x1SafogdxyMay 05, 2025 12:02pm Advance Directives Advance Directive Response Recorded Date/ Time Advance Directives No January 03 9:07am Insurance Providers Guarantor Taras Hayward Address [address] [id number] Info.Home Phone: Coverage Status Update:2025 Payer Group Member ID Coverage Type Subscriber Relationship to Subscriber Effective Date Expiration Date Karon ROBERSON Id: [id number] A Rowe Id: [id number] [address] [address] Home Phone: Email: [email or web address] Encounter Location(s) Arrival/Admit Date Discharge/Departure Date Discharge/Departure Disposition Provider(s) Departed Physician/ Provider Office Visit -[facility] February 16, 2025 4:06pm February 16, 2025 4:11pm Discharged to home care or self care (routine discharge) Awais Pablo DO Departed Physician/ Provider Office Visit -[facility] March 19, 2025 4:09pm March 19, 2025 4:14pm Discharged to home care or self care (routine discharge) Tova Zayas MD Departed Physician/ Provider Office Visit -[facility] May 05, 2025 11:37am May 05, 2025 12:17pm Discharged to home care or self care (routine discharge) Awais Pablo DO Recent Diagnosis Onset Date Admit Date Pernicious anemia Unknown March 19, 025 4:09pm Assessments Diagnosis Onset Date Resolution Status Admit Date Pernicious anemia acuteOct2024 4:09pm
[2025-05-09 09:48] VITALS: BP 134/82; PULSE 146; TEMP 36.6; O2SAT 97
[2025-05-09 10:14] LABS: Glucose Urine UA NEGATIVE (NEGATIVE)
--- OUTSIDE RECORDS SUMMARY | 2025-05-09 10:14 | XMS_ITS | CCD ---
Author Organization [facility] CliniSypr Care Team Providers Care Fan Installer Name Role Phone AWAIS GARCIA Primary Care Physician Unavailable Primary Care Provider UnavailAwais Campo DO Primary Care Provider AWAIS GARCIA Primary Care Unavailable CYNTHIA BLACKWOOD Referring Unavailab deo COFFEY, HARSH Referring Unavailable KONRAD LILLY Referring Unavailable HARSH COFFEY Attending Unavailable AWAIS GARCIA Primary Care Unavailable CYNTHIA BLACKWOOD Referring Unavailab AWAIS Gallego Primary Care Unavailable CYNTHIA BLACKWOOD Referring Unavailab HARSH Phan Admitting Unavailable HARSH COFFEY Attending Unavailable AWAIS GARCIA Primary Care Unavailable GLEN KNIGHT Consulting Unavailable GLEN KNIGHT Admitting Unavailable JOSE, DR ERNANDEZ Primary Care Unavailable GLEN KNIGHT Attending Unavailable JOSE, DR ERNANDEZ Consulting Unavailable BALL, DR ERNANDEZ Primary Care Unavailable BALL, DR ERNANDEZ Admitting Unavailable BALL, DR ERNANDEZ Attending Unavailable BALL, DR ERNANDEZ Consulting Unavailable BALL, DR ERNANDEZ Primary Care Unavailable BALL, DR ERNANDEZ Admitting Unavailable BALL, DR ERNANDEZ Attending Unavailable KONRAD LILLY Consulting Unavailable KONRAD LILLY Admitting Unavailable KONRAD LILLY Attending Unavailable BALL, DR ERNANDEZ Primary Care Unavailable BRIANA, DR INÉS Ortega Consulting Unavailable HOY ., DR CHRISTIANSEN Attending Unavailable BALL, DR ERNANDEZ Primary Care Unavailable HOY ., DR CHRISTIANSEN Admitting Unavailable HOY ., DR CHRISTIANSEN Consulting Unavailable BALL, DR ERNANDEZ Primary Care Unavailable BALL, DR ERNANDEZ Admitting Unavailable BALL, DR ERNANDEZ Attending Unavailable HAY ., DR GODOY Consulting Unavailable HAY ., DR GODOY Admitting Unavailable HAY ., DR GODOY Attending Unavailable BALL, DR ERNANDEZ Primary Care Unavailable KONRAD LILLY Procedure Practitioner Unavailab SHAIKH Kathrine Silva Admitting Unavailable BALL, DR ERNANDEZ Primary Care Unavailable KONRAD LILLY Consulting Unavailable CHARY MCCARTHYIKH H Attending Unavailable ZIEBER, DR INÉS Ortega Consulting Unavailable RICARDO ., DR GODOY Consulting Unavailable TERRANCE MARRERO Consulting Unavailable SHARI, SHAIKH Kathrine Consulting Unavailable PENNY, CHAPO Consulting Unavailable CHAPO [...] DO Pilo Nieto Other Provider RADHA Terry Other Provider [phone] KARLA Malloy-Micheal Cheung Other Provider RADHA Wei-HUMANITIES DEPARTMENT CHAIR-C Kendal Hurt Other Provider SHELBY Avilez Other Provider Unavailable MD Gerardo Miranda Other Provider KARLA Pizano-Micheal Ortega Other Provider MD Derek Argueta F Other Provider MD Tony Fuentes Other Provider Clon, CST Jaspal Other Provider UnavailMD Thom Jeff Other Provider KARLA Mckeon-Micheal Brady Other Provider MD Len Lopez Other Provider MD Bhavya Ferrer Other Provider [phone] Srinivas Patricia Admitting Unavailable Srinivas Patricia Attending Unavailable NO FAMILY, PHYSICIAN Primary Care Unavailable Jolly Hay Consulting Unavailable Megha Lcay Consulting Unavailable Splendora, Inés Consulting Unavailable Pawan Oates Consulting Unavailab deo Pierce, Rita Consulting Unavailable Gerson, Pilo M Consulting Unavailable Mara, Suha M Consulting Unavailable Victorina Malloy Consulting Unavailable Eriberto, Kendal E Consulting Unavailable Gilpietro, Vianey Consulting Unavailable Gerardo Miranda Consulting Unavailable Gracie Pizano Consulting Unavailable Kendall, Derek Perkins Consulting Unavailable Tony Fuentes Consulting Unavailabl e Clonch, Jaspal Consulting Unavailable Thom Zayas Consulting Unavailable Mckeon, Caitlyn Consulting Unavailable Len Lopez Consulting Unavailable Carissa, Bhavya Diaz Consulting Unavailable Sophie, Kendal Admitting Unavailable Kendal Barrios Attending Unavailable Jose, Awais Primary Care Unavailable Ball, Awais Primary Care Unavailable Ashely Torres Admitting Unavailable Ashely Torres Attending Unavailable Jose, DO Awais Primary Care Provider [phone] EVER Barrios Attending Provider [phone] Jose, DO Ernandez Primary Care Provider EVER Barrios Attending Provider [phone] NIR MEADOWS Attending Unavailable BALL, AWAIS E Referring Unavailable BALL, AWAIS E Primary Care Unavailable NIR MEADOWS Attending Unavailable BALL, AWAIS E Referring Unavailable BALL, AWAIS E Primary Care Unavailable NIR MEADOWS Attending Unavailable BALL, AWAIS E Referring Unavailable BALL, AWAIS E Primary Care Unavailable BALL, AWAIS E Referring Unavailable BALL, AWAIS E Primary Care Unavailable DARRELL MARIN Attending Unavailable BALL, AWAIS E Referring Unavailable BALL, AWAIS E Primary Care Unavailable BALL, AWAIS E Referring Unavailable BALL, AWAIS E Primary Care Unavailable DARRELL MARIN Attending Unavailable BALL, AWAIS E Referring Unavailable BALL, AWAIS E Primary Care Unavailable ANGÉLICA TOUSSAINT Attending Unavailable BALL, AWAIS E Referring Unavailable BALL, AWAIS E Primary Care Unavailable XUAN SCHUSTER Attending Unavailable BALL, AWAIS E Referring Unavailable BALL, AWAIS E Primary Care Unavailable BALL, AWAIS E Referring Unavailable BALL, AWAIS E Primary Care Unavailable Ball DO, Awais E Primary Care Provider KAYLEE RIVERA Attending Unavailab KAYLEE Morley Attending Unavailab KAYLEE Morley Attending Unavailab KAYLEE Morley Admitting Unavailab le Awais Garcia DO Primary Care Provider Jose MANRIQUE, Awais Attending Provider Tova Zayas MD Attending Provider Donna Davila APRN Attending Provider Jose MANRIQUE, Awais Primary Care Provider Jose MANRIQUE, Awais Attending Provider [phone] Jose MANRIQUE, Awais Primary Care Provider Ball , Awais Attending Provider Tova Zayas MD Attending Provider Allergies Allergy ClassificationReported Allergen(s)Allergy TypeDate of OnsetReaction(s) Facility (1 source)[facility]; Translations: [FEATHERS]Propensity to adverse reactions to drug (disorder)42-71-2216[facility] Medications Current Medications MedicationDrug Class(es)DatesSig (Normalized)Sig (Original)3 ML semaglutide 1.34 MG/ML Pen Injector [Ozempic] (20 sources)Start: 05-79-2483bwwzjt 1 mg by subcutaneous injection every week Ozempic (1 MG/DOSE) 4 MG/3ML 1 mg Subcutaneous weekly for 28 days Jun, Activeinject 2 mg by subcutaneous injection every weekOzempic (1 MG/DOSE) 4 MG/3ML 2mg Subcutaneous weekly for 90 days Not-Takinginject 2 mg by subcutaneous injection every weekOzempic (1 MG/DOSE) 4 MG/3ML 2mg Subcutaneous weekly for 90 days ActiveOzempic (1 MG/DOSE) 4 MG/3ML as directed Subcutaneous Not-Taking Acetaminophen (20 sources)Start: 00-76-9614qzsvufnxpnpzq 500 mg Tab Start Date: 02/20/23 Status: OrderedStart: 01-23-2023 End: 46-41-1837syul 1 tablet by mouth every four hours as needed for headache Acetaminophen 500 mg Tablet Discontinued 500 MG PO Q4H as needed for Headache 180 30 January 23, 2023 12:00am August 27, 2023 12:25pmStart: 89-94-0412bwyj 2 tablets by mouth every six hours as needed for pain and headacheacetaminophen (TYLENOL) 325 mg tablet Take 2 tablets (650 mg total) by mouth every 6 (six) hours asneeded for pain or headaches. 30 tablet 01/03/2023 Activetake 1 capsule by mouth every four hoursAcetaminophen 500 MG 1 capsule as needed Orally every 4 hrs Not-Taking/PRNaspirin 81 mg delayed release oral tablet (20 sources)Platelet Aggregation Inhibitor, Nonsteroidal Anti-inflammatory Drug Start: 87-41-6331nhro 1 tablet by mouth once dailyCVS ASPIRIN EC 81 MG TABLET CVS ASPIRIN EC 81 MG TABLET, TAKE 1 TABLET BY MOUTH EVERY DAY FOR 90 DAYS Start Date: 05/15/24 Status: OrderedStart: 01-21-2024 End: 47-05-5698ryez 1 tablet by mouth once dailyStart: 74-56-4281Lxvfc Aspirin Start Date: 02/20/23 Status: OrderedStart: 01-03-2023 End: 05-27-4325gktm 1 tablet by mouth once daily in the morningAspirin 81 mg Tablet,Delayed Release (Dr/Ec) Discontinued 81 MG PO Every morning January 3:06pm January 21, 2024 5:17pmtake 1 tablet by mouth once daily Aspirin 81 81 MG 1 tablet Orally Once a day Activeatorvastatin 10 mg oral tablet (20 sources)HMG-CoA Reductase InhibitorStart: 48-03-6041ghkn 1 tablet by mouth once daily at bedtimeStart: 12-27-2023 End: 77-22-0998bmzt 1 tablet by mouth once dailyAtorvastatin 10 mg tablet Discontinued 0 .ROUTE .COMPLEX December 27, 2023 8:40am April 21, 2024 2:04pm TAKE 1 TABLET BY MOUTH EVERY DAY FOR 90 DAYSStart: 01-03-2023 End: 04-59-8559lnat 1 tablet by mouth once daily at bedtimeAtorvastatin 10 mg Tablet Discontinued 10 MG PO Daily at bedtime January 23, 2023 3:06pm December 27, 2023 8:40amcarvedilol 6.25 mg oral tablet (20 sources)alpha-Adrenergic Melvin, beta-Adrenergic BlockerStart: 11-25-2024 take 1 tablet by mouth twice daily at mealtimeStart: 11-25-2024 End: 43-40-4882sbgn 1 tablet by mouth every twelve hoursCarvedilol 6.25 mg tablet Discontinued 6.25 MG PO Every 12 hours 180 90 November 25, 2024 3:19pm November 25, 2024 3:20pmStart: 05-15-2024 End: 56-94-7229zkuz 1 tablet by mouth every twelve hoursCarvedilol 12.5 mg tablet Discontinued 12.5 MG PO Every 12 hours 180 90 May 15, 2024 10:35am November 25, 2024 3:19pmStart: 12-05-2023 End: 24-46-6748rofs 1 tablet by mouth twice daily at mealtimeCarvedilol 6.25 mg tablet Discontinued 0 .ROUTE .COMPLEX 180 December 05, 2023 9:15am May 15, 2024 10:36am TAKE 1 TABLET BY MOUTH TWICE A DAY WITH FOOD FOR 90 DAYSStart: 01-03-2023 End: 68-75-4153voug 1 tablet by mouth every twelve hours at mealtimeCarvedilol (Coreg) 6.25 mg Tablet Discontinued 6.25 MG PO Q12H 60 30 January 23, 2023 3:06pm December 05, 2023 9:16am must administer with a meal/foodStart: 04-12-2022 take 1 tablet by mouth twice dailycarvedilol 12.5 mg Tab 12.5 mg = 1 tab(s), Oral, BID Start Date: 04/12/22 Status: Orderedtake 1 tablet by mouth every twelve hoursCarvedilol 6.25 MG 1 tablet with food Orally Twice a day Activetake 1 tablet by mouth every twelve hoursCarvedilol 25 MG 1 tablet with food Orally Twice a day for 90 days ActiveComment on above:Take by mouth.Cardura (8 sources)alpha-Adrenergic BlockerStart: 88-90-9449Prdjnwy Oral, Daily Start Date: 08/26/19 Status: Orderedfolic acid 1 mg oral tablet (6 sources)Start: 49-19-8812xaaz 1 tablet by mouth once dailyMelatonin (20 sources)Start: 68-80-0586Pzhugnfbp Once a day (at bedtime) Start Date: 02/20/23 Status: OrderedStart: 01-03-2023 End: 21-65-5608xlmi 1 tablet by mouth at bedtimeMelatonin 3 mg Tablet Discontinued 3 MG PO Bedtime January 03, 2023 12:00am January 09, 2024 9:14am oxybutynin chloride 5 mg oral tablet (12 sources)Cholinergic Muscarinic AntagonistStart: 16-49-9041lwac 1 tablet by mouth three times daily as neededoxybutynin 5 mg Tab 5 mg = 1 tab(s), Oral, TID, PRN for urinary discomfort Start Date: 04/12/22 Status: OrderedComment on above: Take by mouth.oxyCODONE (7 sources)Opioid AgonistStart: 95-24-5974xfaoxkios Oral, Refills(s) 0 Start Date: 05/25/22 Status: Orderedpolyethylene glycol 3350 17864 mg powder for oral solution (20 sources)Osmotic LaxativeStart: 98-00-5762pmxrwisaxdzt glycol (MIRALAX) 17 gram/dose powder Take by mouth. 0 02/20/2023 ActiveStart: 01-03-2023 End: 30-35-6287Fqdmiaasihuz Glycol 3350 (Miralax) 17 gram Powder In Packet Discontinued 17 GM PO Daily as needed for Constipation January 23, 2023 3:06pm January 09, 2024 9:14ampolysaccharide iron complex 150 mg oral capsule (6 sources)Start: 44-00-2633Eddzphi (19 sources)Start: 87-70-0530nkjszu 0.5 mg by subcutaneous injection every week Ozempic 0.5 mg, SubCutaneous, qWeek Start Date: 04/12/22 Status: OrderedStart: 03-27-2022 End: 60-89-6774cgbdgrnppqm (OZEMPIC) 0.25 mg or 0.5 mg(2 mg/1.5 mL) pen injector 03/27/2022 12/11/2023 Discontinued (Therapy completed)Start: 11-39-3560FWXYCQK 0.25 mg or 0.5 mg(2 mg/1.5 mL) pen INJECT 0.5MG SUBCUTANEOUSLY WEEKLY 0 03/27/2022 ActiveComment on above:INJECT 0.5MG SUBCUTANEOUSLY WEEKLYVitamin D (7 sources)Start: 25-28-1925Slgvqae D International_Unit, Oral, qWeek, Refills(s) 0 Start Date: 05/25/22 Status: Ordered Completed/Discontinued Medications MedicationDrug Class(es)DatesSig (Normalized)Sig (Original)amitriptyline hydrochloride 10 mg oral tablet (20 sources)Tricyclic AntidepressantStart: 09-03-2023 End: 23-50-1966fgve 1 tablet by mouth once daily at bedtimeAmitriptyline 10 mg tablet Discontinued 0 .ROUTE .COMPLEX 90 September 03, 2023 5:17pm January 09, 2024 9:14am TAKE 1 TABLET BY MOUTH EVERY DAY AT BEDTIMEStart: 01-03-2023 End: 63-72-0921glkt 1 tablet by mouth once daily at bedtimeAmitriptyline 10 mg tablet Discontinued 10 MG PO Daily at bedtime August 27, 2023 12:00am August 5:17pmapixaban 5 mg oral tablet (20 sources)Factor Xa InhibitorStart: 01-22-2023 End: 24-56-1154fzeo 1 tablet by mouth twice dailyApixaban (Eliquis) 5 mg Tablet Discontinued 5 MG PO Twice daily 60 30 January 22, 2023 12:00am 2023 3:22pmazithromycin 250 mg oral tablet (20 sources)Macrolide AntimicrobialStart: 06-20-2024 End: 08-38-1571Qvuvxozfpspp 250 mg tablet Discontinued 250 MG PO .COMPLEX 6 5 June 20, 2024 1:00am November 17, 2024 8:59am 2 tabs on first day followed by 1 tab on days 2-5Start: 73-87-4618ekowgjvowlaj (ZITHROMAX) 250 mg tablet Take by mouth as directed. TAKE 2 TABLETS BY MOUTH TODAY, THEN TAKE 1 TABLET DAILY FOR 4 DAYS 0 02/10/2022 ActiveAzithromycin 250 MG as directed Orally Not-Taking/PRN Comment on above:Take by mouth as directed. TAKE 2 TABLETS BY MOUTH TODAY, THEN TAKE 1 TABLET DAILY FOR 4 DAYSbacitracin 0.5 unt/mg topical ointment (20 sources)Start: 01-09-2023 End: 13-13-0478Adijvalyrn 500 unit/gram Ointment Discontinued 1 APPLIC TOPICAL Twice daily 0 January 23, 2023 12:00am August 27, 2023 12:26pmBacitracin 500 UNIT/GM 1 application Externally twice a day Not-Taking/PRN End: 19-56-8596htldkdfmpb 500 unit/gram packet Apply 1 Application topically in the morning and 1 Application before bedtime. 0 05/30/2023 Discontinued (Therapy completed)Bacitracin 500 UNIT/GM (7 sources)Bacitracin 500 UNIT/GM 1 application Externally twice a day Not-TakingBacitracin 500 UNIT/GM 1 application Externally twice a day Active cefuroxime 500 mg oral tablet (4 sources)Cephalosporin AntibacterialStart: 36-26-5965kiix 1 tablet by mouth every twelve hourscefUROXime (CEFTIN) 500 mg tablet Take 500 mg by mouth q 12 HR. 0 03/30/2022 ActiveComment on above:Take 500 mg by mouth q 12 HR.Cephalexin (13 sources)Cephalosporin AntibacterialStart: 05-25-2022 End: 10-58-2489ptcuztkbdv (KEFLEX ORAL) Take by mouth. 05/25/2022 12/11/2023 Discontinued (Therapy completed)Start: 17-54-0555vveqqbxjly (KEFLEX ORAL) Take by mouth. 05/25/2022 ActiveStart: 53-69-6572wyitrdjdvs (KEFLEX ORAL) Take by mouth. 0 05/25/2022 ActiveStart: 07-21-4309Sexpxo Oral Start Date: 05/25/22 Status: OrderedStart: 73-20-1729tiff 1 capsule by mouth four times daily cephALEXin (KEFLEX) 500 mg capsule Take 1 capsule by mouth four times daily. 40 capsule 0 05/12/2022 ActiveComment on above:Take 1 capsule by mouth four times daily.cholecalciferol, vitamin D3, (VITAMIN D3 ORAL) (1 source)cholecalciferol, vitamin D3, (VITAMIN D3 ORAL) Take 5,000 Int'l Units/L by mouth once daily. 0 ActiveComment on above:Take 5,000 Int'l Units/L by mouth once daily.ciprofloxacin 500 mg oral tablet (5 sources)Quinolone AntimicrobialStart: 00-41-1335dbgurgyxgjffp HCl (CIPRO) 500 mg tablet Cipro 500 mg Tab See Instructions, Take 1 tab day prior to procedure and 1 tab day of procdure - afterwards, # 2 tab(s), Refills(s) 0, Pharmacy: [facility]/pharmacy #[id number] Start Date: 08/22/19 Status: Ordered 0 08/22/2019 Active Comment on above:Cipro 500 mg Tab See Instructions, Take 1 tab day prior to procedure and 1 tab day of procdure - afterwards, # 2 tab(s), Refills(s) 0, Pharmacy: [facility]/pharmacy #[id number] Start Date: 08/22/19 Status: Orderedcyproheptadine hydrochloride 4 mg oral tablet (20 sources)Start: 09-03-2023 End: 10-93-5431hvoh 1 tablet by mouth once daily at bedtimeCyproheptadine 4 mg tablet Discontinued 0 .ROUTE .COMPLEX September 03, 2023 5:17pm January 09, 2024 9:14am TAKE 1 TABLET BY MOUTH EVERY DAY AT BEDTIMEStart: 01-23-2023 End: 64-37-0229mqxw 1 tablet by mouth once daily at bedtimeCyproheptadine 4 mg Tablet Discontinued 4 MG PO Daily at bedtime January 23, 2023 12:00am Aug 5:17pmdocusate sodium 50 mg / sennosides, residential 8.6 mg oral tablet (15 sources)Start: 01-03-2023 End: 10-30-8995pkuo 2 tablets by mouth in the morningsennosides-docusate sodium (SENOKOT-S) 8.6-50 mg Take 2 tablets by mouth in the morning and 2 tablets before bedtime. 0 01/03/2023 05/30/2023 Discontinued (Therapy completed)Start: 01-03-2023 End: 44-30-0240qgrp 2 tablets by mouth twice dailySennosides-Docusate Sodium 8.6-50 mg Tablet Discontinued 2 TAB-CAP PO Twice daily January 03, 2023 12:00am January 23, 2023 3:07pmnystatin 815862 unt/ml / triamcinolone acetonide 1 mg/ml topical cream (4 sources)Polyene Antifungal, CorticosteroidStart: 97-27-3527nasvyzet- triamcinolone (MYCOLOG II) cream Apply to affected area twice daily. APPLY TO AFFECTED AREA 0 04/05/2022 ActiveComment on above:Apply to affected area twice daily. APPLY TO AFFECTED AREAondansetron 8 mg disintegrating oral tablet (20 sources)Serotonin-3 Receptor AntagonistStart: 08-21-2023 End: 17-90-6513yhqj 1 tablet by mouth every six hours as needed for nausea and vomitingOndansetron 8 mg tablet,disintegrating Discontinued 8 MG PO Every 6 hours as needed for Nausea And Vomiting 120 90 May 15, 2024 10:36am May 22, 2024 10:20amStart: 08-21-2023 End: 54-15-2878brjq 2 tablets by mouth every six hours as needed for nausea and vomitingOndansetron 4 mg tablet,disintegrating Discontinued 8 MG PO Every 6 hours as needed for Nausea And Vomiting August 21, 2023 10:30am August 21, 2023 1:18pmStart: 08-21-2023 End: 08-71-8879nfls 8 mg by mouth every six hoursOndansetron Discontinued 8 MG PO Every 6 hours August 21, 2023 10:30am August 21, 2023 1:18pmStart: 66-27-4205taaarthfaos 4 mg Dis Tab Start Date: 02/20/23 Status: OrderedStart: 52-14-9711epoo 2 tablets by mouth every twelve hours as needed for nausea ondansetron ODT (ZOFRAN ODT) 4 mg disintegrating tablet Dissolve 2 tablets (8 mg total) on tongue every 12 (twelve) hours as needed for nausea. 01/23/2023 ActiveStart: 01-23-2023 End: 23-56-7875ovqa 1 tablet by mouth every six hours as needed for nausea and vomitingOndansetron 4 mg Tablet,Disintegrating Discontinued 4 MG PO Every 6 hours as needed for Nausea And Vomiting 30 7 January 23, 2023 12:00am August 21, 2023 10:30amOndansetron HCl 4 MG 1 tablet SL twice daily as needed for nausea for 30 days Activetake 1 tablet by mouth every twenty-four hours Ondansetron 4 MG 1 tablet on the tongue and allow to dissolve Orally Once a day for 30 days Activeozempic (1 mg/dose) 4 mg/3ml solution pen-injector (12 sources)inject 2 mg by subcutaneous injection every week as neededOzempic (1 MG/DOSE) 4 MG/3ML 2mg Subcutaneous weekly for 90 days Not-Taking/PRNSemaglutide (14 sources)Start: 01-03-2023 End: 97-98-6661Cqaxcyqsnzs (Ozempic) 0.25 mg or 0.5 mg (2 mg/3 mL) Pen Injector Discontinued 0.5 MG SUBCUT every week January 02, 2023 11:00pm August 27, 2023 11:27amStart: 01-03-2023 End: 08-97-3387Cubdajuukhz (Ozempic) 0.25 mg or 0.5 mg (2 mg/3 mL) Pen Injector Discontinued 0.5 MG SUBCUT every week January 03, 2023 12:00am August 27, 2023 12:27pmStart: 84-70-0012Zaevjcntgjp (Ozempic) 0.25 mg or 0.5 mg (2 mg/3 mL) Pen Injector Active 0.5 MG SUBCUT every week January 02, 2023 11:00pmStart: 49-54-1281Ovnyyoenqqv (Ozempic) 0.25 mg or 0.5 mg (2 mg/3 mL) Pen Injector Active 0.5 MG SUBCUT every week January 03, 2023 12:00amtamsulosin hydrochloride 0.4 mg oral capsule (20 sources)alpha-Adrenergic BlockerStart: 12-05-2023 End: 71-77-0729ifvf 1 capsule by mouth once dailyTamsulosin 0.4 mg capsule Discontinued 0 .ROUTE .COMPLEX 90 December 05, 2023 9:15am January 09, 2024 9:14am TAKE 1 CAPSULE BY MOUTH EVERY DAY FOR 90 DAYSStart: 01-23-2023 End: 92-37-3785fjas 1 capsule by mouth once dailyTamsulosin 0.4 mg capsule Discontinued 0.4 MG PO Daily December 05, 2023 12:00am December 05, 2023 9:16am Start: 60-22-9603akqs 1 mg by mouth once dailytamsulosin mg, Oral, Daily Start Date: 05/25/22 Status: OrderedtiZANidine 4 mg oral tablet (5 sources)Central alpha-2 Adrenergic AgonistStart: 79-23-8157rgat 1 tablet by mouth at bedtime as neededtiZANidine (ZANAFLEX) 4 mg tablet TAKE 1/2 TO 1 TABLET BY MOUTH AT BEDTIME NEEDED 0 01/30/2022 Activetake 0.5-1 tablets by mouth once at bedtime as neededtiZANidine HCl 4 MG 1/2 - 1 tablet Orally q HS as needed ActiveComment on above:TAKE 1/2 TO 1 TABLET BY MOUTH AT BEDTIME NEEDED venlafaxine 37.5 mg oral tablet (20 sources)Serotonin and Norepinephrine Reuptake InhibitorStart: 09-03-2023 End: 54-90-4475dozv 1 tablet by mouth once daily at mealtimeVenlafaxine 37.5 mg tablet Discontinued 0 .ROUTE .COMPLEX 90 September 03, 2023 5:17pm January 09, 2024 9:14am TAKE 1 TABLET BY MOUTH EVERY DAY WITH FOOD FOR 30 DAYSStart: 02-20-2023 venlafaxine 37.5 mg Tab Refills(s) 0 Start Date: 02/20/23 Status: OrderedStart: 01-23-2023 End: 40-91-1679jkhw 1 capsule by mouth once dailyVenlafaxine 37.5 mg Capsule,Extended Release 24hr Discontinued 37.5 MG PO Daily January 23, 2 023 12:00am September 03, 2023 5:17pmtake 1 capsule by mouth every twenty-four hours in the morningvenlafaxine XR (EFFEXOR XR) 37.5 mg 24 hr capsule Take 1 capsule (37.5 mg total) by mouth in the morning. Active Problems Active Problems Problem ClassificationProblemDateDocumented DateEpisodic/ChronicAbdominal pain (20 sources)Left lower quadrant pain; Translations: [Left lower quadrant pain] EpisodicAcute bronchitis (20 sources)Acute bronchitis; Translations: [Acute bronchitis, unspecified] EpisodicAcute cerebrovascular disease (20 sources)Cerebellar infarction; Translations: [Cerebral infarction, unspecified]Onset: [id number] on above:Problem List clean-up per request of Phys. EHR CmteAdministrative/social admission (17 sources)Other reduced mobility; Translations: [Impaired mobility and activities of daily living]Onset: [id number] on above: Problem List clean-up per request of Phys. 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 EHR CmteConditions associated with dizziness or vertigo (15 sources)Dizziness; Translations: [Dizziness and giddiness]Onset: 01-03-2023 31-74-4797BojtfnjyOkgrhsu on above:Problem List clean-up per request of Phys. EHR CmteDeficiency and other anemia (10 sources)Anemia; Translations: [Anemia, unspecified]44-63-8790Hruvkvap Deficiency and other anemia (8 sources)Pernicious anemia; Translations: [Vitamin B12 deficiency anemia due to intrinsic factor deficiency]73-95-2932WsnthrgtBgrikarn mellitus with complications (20 sources)Type 2 diabetes mellitus; Translations: [Type 2 diabetes mellitus with hyperglycemia]ChronicDiabetes mellitus without complication (1 source)Type 2 diabetes mellitus without complications; Translations: [TYPE 2 DM WITHOUT COMPLICATIONS]Onset: 98-60-3130RpzfzacXrwtndrd mellitus without complication (20 sources)Prediabetes; Translations: [Prediabetes]Onset: 61-35-0698Famnftmy Disorders of lipid metabolism (20 sources)Hypercholesterolemia; Translations: [Pure hypercholesterolemia, unspecified]ChronicEssential hypertension (20 sources)Hypertensive disorder; Translations: [Essential hypertension]Onset: [id number] on above:Problem List clean-up per request of Phys. EHR CmteGenitourinary symptoms and ill-defined conditions (7 sources)Presence of urogenital implants; Translations: [Other postprocedural status]Onset: 48-66-1831HgkoszdUckxvtxgocwlx symptoms and ill-defined conditions (20 sources)Abnormal urinalysis; Translations: [Unspecified abnormal findings in urine]Onset: 22-76-0607BlaebyjfWptboyepomq of prostate (20 sources)Lower urinary tract symptoms due to benign prostatic hypertrophy; Translations: [Benign prostatic hyperplasia with lower urinary tract symptoms] ChronicInflammatory conditions of male genital organs (20 sources)Acute prostatitis; Translations: [Acute prostatitis]EpisodicLate effects of cerebrovascular disease (3 sources)Sequela of cerebrovascular accident; Translations: [Unspecified sequelae of cerebral infarction]Onset: 146989-81-0773JlqapwyOdmw disorders (20 sources)Mild major depression, single episode; Translations: [Major depressive disorder, single episode, mild]ChronicMycoses (20 sources)Candidal balanitis; Translations: [Candidal balanitis]EpisodicNausea and vomiting (17 sources)Nausea; Translations: [Nausea]Onset: 039295-08-5053Hojetqmi Comment on above:Problem List clean-up per request of Phys. EHR CmteNutritional deficiencies (4 sources)Cobalamin deficiency; Translations: [Deficiency of other specified B group vitamins]25-18-9153UudluutgGrqsfagwb or stenosis of precerebral arteries (20 sources)Stenosis of left vertebral artery; Translations: [Occlusion and stenosis of left vertebral artery]ChronicOpen wounds of head; neck; and trunk (14 sources)Laceration - injury; Translations: [Laceration]89-16-4042Vbtodorg Other aftercare (1 source)Other senior living (current) drug therapy; Translations: [OTH [facility] CURRENT DRUG THERAPY]Onset: 72-42-6940LmdvcelwDipkd and ill-defined cerebrovascular disease (14 sources)Cerebral atherosclerosis; Translations: [Cerebral atherosclerosis] 81-31-4370BikfmbhRwnlm and ill-defined cerebrovascular disease (4 sources)Cerebral atherosclerosis; Translations: [Cerebral atherosclerosis] 47-17-6548MeplbziUqrrj connective tissue disease (20 sources)Lateral epicondylitis; Translations: [Lateral epicondylitis, right elbow]EpisodicOther connective tissue disease (1 source)Muscle weakness (generalized)EpisodicOther diseases of bladder and urethra (5 sources)Spasm of bladder; Translations: [Other specified disorders of bladder]Onset: 54-25-6908BslplvfKzcam diseases of bladder and urethra (1 source)Other specified disorders of bladder; Translations: [Bladder spasms] Onset: 47-56-0098XlvvwktMhvus diseases of bladder and urethra (11 sources)Urethral ccdvnlmyw69-80-6691NgledvrvHezkg gastrointestinal disorders (5 sources)History of bypass of stomach; Translations: [Bariatric surgery status]Onset: 02-05-3705OdxqpekiHwquh gastrointestinal disorders (4 sources)Bariatric surgery status; Translations: [History of gastric bypass] Onset: 88-21-4217PpmromxxVlqsv gastrointestinal disorders (20 sources)History of bariatric surgical procedure; Translations: [Bariatric surgery status]EpisodicOther lower respiratory disease (1 source)Personal history of pneumonia (recurrent); Translations: [PERSONAL HX OF PNEUMONIA RECURRENT]Onset: 19-96-2120TdnpqkgeTrfjg lower respiratory disease (20 sources)Cough; Translations: [Cough]EpisodicOther nervous system disorders (14 sources)Hydrocephalus; Translations: [Hydrocephalus, unspecified]01-04-2023 ChronicComment on above:Problem List clean-up per request of Phys. EHR CmteOther nervous system disorders (16 sources)Ventriculoperitoneal shunt in situ; Translations: [Presence of cerebrospinal fluid drainage device]53-99-3353IgegsafEdwolkd on above:Problem List clean-up per request of Phys. EHR CmteOther nervous system disorders (3 sources)Hydrocephalus, unspecified; Translations: [Obstructive hydrocephalus] Onset: [id number]y nervous system disorders (3 sources)Presence of cerebrospinal fluid drainage device; Translations: [Presence of cerebrospinal fluid drainage device]Onset: 579831-27-0103 ChronicOther non-traumatic joint disorders (20 sources)Arthralgia of the pelvic region and thigh; Translations: [Pain in left hip]EpisodicOther nutritional; endocrine; and metabolic disorders (8 sources)Body mass index 40+ - severely obese; Translations: [Body mass index (BMI) 40.0-44.9, adult]Onset: 63-38-0602TyqmjvhKatoi nutritional; endocrine; and metabolic disorders (3 sources)Body mass index (BMI) 40.0-44.9, adult; Translations: [BMI 40.0-44.9, adult ([facility])]Onset: 70-13-0968HbppujqUefht nutritional; endocrine; and metabolic disorders (6 sources)Obesity, unspecified; Translations: [Obesity, unspecified]Onset: 961564-88-7127UmoazqfQezyo nutritional; endocrine; and metabolic disorders (2 sources)Morbid (severe) obesity due to excess calories; Translations: [MORBID SEVERE OBES D/T EXCESS SHANT]Onset: 49-91-5637GasocaxUavxt nutritional; endocrine; and metabolic disorders (20 sources)Body mass index 30+ - obesity; Translations: [Obesity, unspecified] 46-65-4119NwwpzepDxrfygg on above:Problem List clean-up per request of Phys. EHR CmteOther nutritional; endocrine; and metabolic disorders (20 sources)Severe obesity; Translations: [Morbid (severe) obesity due to excess calories]ChronicOther nutritional; endocrine; and metabolic disorders (2 sources)Obesity caused by energy imbalance; Translations: [Morbid (severe) obesity due to excess calories]35-74-1578QnzmximHsxqo nutritional; endocrine; and metabolic disorders (13 sources)Obesity; Translations: [Obesity, unspecified]51-15-0115IkmxuhmVhwuo screening for suspected conditions (not mental disorders or infectious disease) (20 sources)Encounter for screening for malignant neoplasm of prostate; Translations: [Other abnormal findings on diagnostic imaging of central nervous system]Onset: 728406-86-3796GcqfwozfJukslqn on above:PSA: 1.73 - 11/2020, 1.60 - 01/2022, 1.17 - 07/2023Other upper respiratory infections (20 sources)Bacterial sinusitis; Translations: [Chronic sinusitis, unspecified] ChronicOther upper respiratory infections (1 source)Acute sinusitis, unspecified; Translations: [Acute sinusitis, unspecified]34-05-5951XyjtcducOjjfxitsy; thrombophlebitis and thromboembolism (20 sources)Thrombophlebitis of superficial veins of lower extremity; Translations: [Phlebitis and thrombophlebitis of superficial vessels of right lower extremity]Onset: 945405-16-5248JdtqdptbPohxndy on above:Problem List clean-up per request of Phys. EHR CmteResidual codes; unclassified (5 sources)Family history of renal stone; Translations: [Family history of disorders of kidney and ureter]Onset: 05-56-3607YwflhcmtNlsevorq codes; unclassified (1 source)Family history of disorders of kidney and ureter; Translations: [Family history of nephrolithiasis]Onset: 91-85-6285CqvlckrqKlrceulb codes; unclassified (20 sources)Tobacco user; Translations: [Tobacco use]EpisodicResidual codes; unclassified (1 source)H/O: Disorder; Translations: [Personal history of other specified conditions]Onset: 45-46-2297VjzivkyyKnofxzzquev; intervertebral disc disorders; other back problems (20 sources)Other spondylosis with radiculopathy, lumbosacral region; Translations: [Cervical spondylosis without myelopathy]Onset: 40-26-0018Qxiasze Unclassified (4 sources)CONTACT W/AND (SUSP) EXPOS COVID-19; Translations: [CONTACT W/AND (SUSP) EXPOS COVID-19]Onset: 16-42-0454Ibgfxfbghnkl (1 source)Unspecified sequelae of cerebral infarction; Translations: [Unspecified sequelae of cerebral infarction]Onset: 67-83-0617Xvsgvhfrclhc (1 source)Laceration without foreign body of lip, initial encounter; Translations: [Laceration without foreign body of lip, initial encounter]Onset: 10-81-3639Sswwlddphzdv (1 source)Ureteric stent presentOnset: 803676-40-9865Gceiqve on above: Outside Source Comment: Last Assessment & Plan: Assessment: Right placed 03/2022Unclassified (1 source)Cerebrospinal fluid leak, unspecified; Translations: [Cerebrospinal fluid leak, unspecified]Onset: 10-89-0994Tzksfzyldryk (1 source)Other disorders of meninges, not elsewhere classified; Translations: [Other disorders of meninges, not elsewhere classified]Onset: 80-43-5644Hstynhy tract infections (9 sources)Urinary tract infectious disease; Translations: [Urinary tract infection, site not specified]Onset: 96-36-8886ZyzkzvwsJdmnilir veins of lower extremity (20 sources)Pain co-occurrent and due to varicose veins of bilateral legs; Translations: [Varicose veins of bilateral lower extremities with pain]Episodic Viral infection (13 sources)Disease caused by 2019-nCoV; Translations: [COVID-19]08-27-2023 Episodic Past or Other Problems Problem ClassificationProblemDateDocumented DateEpisodic/ChronicAcute and unspecified renal failure (1 source)Acute kidney failure, unspecified; Translations: [ACUTE KIDNEY FAILURE UNSPECIFIED]Onset: 55-74-9552OhajddsaGydy disorders (7 sources)Mood disordersOnset: 02-21-2023 Resolved: Other connective tissue disease (1 source)Pain in left leg; Translations: [PAIN IN LEFT LEG]Onset: 01-27-2022 EpisodicOther nervous system disorders (8 sources)Cerebrospinal fluid leak; Translations: [CSF leak]Onset: 02-07-2023 23-49-0611GhxbtblsQyozb nervous system disorders (2 sources)Pseudomeningocele; 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]12-05-2023 EpisodicResidual codes; unclassified (1 source)Other specified health status; Translations: [Other specified health status]Onset: 67-26-1028ToffohnoUqdrkigg codes; unclassified (1 source)Pain, unspecified; Translations: [Pain, unspecified]Onset: 05-23-2023 EpisodicSepticemia (except in labor) (3 sources)Sepsis, unspecified organism; Translations: [Other Gram-negative sepsis]Onset: 34-88-6143FqjcpkzaScihpmwknouj (1 source)CONTACT W/AND (SUSP) EXPOS COVID-19; Translations: [CONTACT W/AND (SUSP) EXPOS COVID-19]Onset: 90-92-6730Yzurc infection (20 sources)Disease caused by 2019-nCoV; Translations: [COVID-19] Results Test NameValueInterpretationReference RangeFacilityBasophils Auto (Bld) [#/Vol] Ordered By: Awais Garcia on 59-78-5064Tatdlhjbd (Bld) [#/Vol]0.0 10 3/uL0.0-0.1 [facility] ColumbusBasophils/100 WBC Auto (Bld)Ordered By: Awais Garcia on 61-71-9907Hdbybwyrd/100 WBC (Bld)0.3 %0.2-2.0[facility] ColumbusEosinophils/100 WBC Auto (Bld)Ordered By: Awais Garcia on 15-61-4961Qsgesnbrybw/100 WBC (Bld)1.0 %0.9-7.0[facility] Erythrocyte distribution width Auto (RBC) [Ratio]Ordered By: Awais Garcia on 67-90-8643Hzkjnwfgsij distribution width (RBC) [Ratio]14.9 %11.0-15.0[facility] ColumbusHematocrit Auto (Bld) [Volume fraction]Ordered By: Awais Garcia on 93-55-8992Ypcjoiwrik (Bld) [Volume fraction]41.4 %Low42.0-54.0 [facility] ColumbusHemoglobin [Mass/volume] in BloodOrdered By: Awais Garcia on 10-01-0422Ozvbkunkyo (Bld) [Mass/Vol]12.6 g/dLLow14.0-18.0 [facility] ColumbusIron binding capacity [Mass/volume] in Serum or PlasmaOrdered By: Awais Garcia on 98-15-9736Boxr binding capacity [Mass/Vol] 316.0 ug/dL250.0-450.0[facility] ColumbusIron saturation [Mass Fraction] in Serum or PlasmaOrdered By: Awais Garcia on 09-60-8716Tzmg saturation [Mass fraction]7.6 %[facility] ColumbusLaboratory - Chemistry and Chemistry - challengeOrdered By: Awasi Garcia on 12-01-2024 Cobalamin (Vitamin B12) [Mass/Vol]150 pg/dHRxwjawei836-0513IaqsvppehSelect Medical Specialty Hospital - ColumbusComment on above:Performed at: - Lab[address] [id number] Director: Dusty Donaldson PhD, Phone: [phone] Ferritin [Mass/Vol]9.0 ng/mLLow26.0-388.0[facility] ColumbusIron [Mass/Vol]24.0 ug/dLLow65.0-175.0[facility] ColumbusLaboratory - Hematology and Cell countsOrdered By: Awais Garcia on 85-64-8026Icnockph granulocytes/100 WBC (Bld)0.3 %0.0-0.5FSouthwest General Health Center Leukocytes [#/volume] corrected for nucleated erythrocytes in Blood by Automated counOrdered By: Awais Garcia on 59-14-1476FEB corrected for nucl RBC Auto (Bld) [#/Vol]7.9 10 3/uL4.0-11.0[facility] ColumbusLymphocytes Auto (Bld) [#/Vol]Ordered By: Awais Garcia on 30-64-7985Jkkqpozdnwg (Bld) [#/Vol]2.3 10 3/uL1.2-3.8[facility] ColumbusLymphocytes/100 WBC Auto (Bld)Ordered By: Awais Garcia on 42-28-1088Pdpiiyxliyy/100 WBC (Bld)28.7 % 20.5-60.0[facility] Auto (RBC) [Entitic mass]Ordered By: Awais Garcia on 99-21-7350YDJ (RBC) [Entitic mass]24.0 pgLow25.9-34.0 [facility] ColumbusMCHC Auto (RBC) [Mass/Vol]Ordered By: Awais Garcia on 94-28-5683FIWQ (RBC) [Mass/Vol]30.4 g/dL29.9-35.2FSouthwest General Health CenterMCV Auto (RBC) [Entitic vol]Ordered By: Awais Garcia on 36-56-4886TMO (RBC) [Entitic vol]79.0 fLLow80.0-94.0[facility] ColumbusMonocytes Auto (Bld) [#/Vol]Ordered By: Awais Garcia on 12-01-2024 Monocytes (Bld) [#/Vol]0.6 10 3/uL0.3-0.8[facility] Monocytes/100 WBC Auto (Bld)Ordered By: Awais Garcia on 63-77-2169Tarszwfac/100 WBC (Bld)7.1 %1.7-12.0[facility] ColumbusNeutrophils Auto (Bld) [#/Vol]Ordered By: Awais Garcia on 19-16-2138Oruovsvounb (Bld) [#/Vol]4.9 10 3/uL1.4-6.5FSouthwest General Health CenterNeutrophils/100 WBC Auto (Bld) Ordered By: Awais Garcia on 03-90-6380Rriclorzoca/100 WBC (Bld)62.6 %43.0-75.0 [facility] ColumbusNo Panel InformationOrdered By: Awais Garcia on 98-54-5786Acfswxszomo # (Auto)0.1 10 3/uL0.0-0.7FSouthwest General Health CenterFolate6.40 ng/mLLow8.60-58.90[facility] ColumbusImmature Granulocyte # (Auto)0.02 10 3/uL0.00-0.03[facility] Platelet mean volume Auto (Bld) [Entitic vol]Ordered By: Awais Garcia on 37-63-4045Mnsdighy mean volume (Bld) [Entitic vol]9.7 fL9.5-13.5FSouthwest General Health CenterPlatelets Auto (Bld) [#/Vol]Ordered By: Awais Garcia on 09-38-6172Obndsxgkn (Bld) [#/Vol]296 10 3/lQ732-226CswfobyoiSelect Medical Specialty Hospital - ColumbusRBC Auto (Bld) [#/Vol]Ordered By: Awais Garcia on 73-70-4781YIB (Bld) [#/Vol]5.24 10 6/uL4.70-6.10[facility] ColumbusReticulocytes/100 RBC Auto (Bld)Ordered By: Awais Garcia on 39-86-2528Iintxmvifzidz/100 RBC (Bld) 1.10 %0.60-3.10[facility] ColumbusBasophils Auto (Bld) [#/Vol]on 03-16-3679Aaqzydzgs (Bld) [#/Vol]0.0 10 3/uL0.0-0.1FSouthwest General Health CenterBasophils/100 WBC Auto (Bld)on 65-92-0328Cgomofnng/100 WBC (Bld)0.3 % 0.2-2.0[facility] ColumbusCholesterol in LDL Calc [Mass/Vol]on 62-85-9944Mmwligrvutq in LDL [Mass/Vol]35.8 mg/dLSelect Medical Specialty Hospital - ColumbusComment on above:<100 mg/dl DQFOTKS040-450 mg/dl NEAR OR ABOVE ESGRJUP844- 159 mg/dl BORDERLINE XIXZ201-092 mg/dl HIGH>190 mg/dl VERY HIGHCholesterol in VLDL Calc [Mass/Vol]on 55-40-9054Lpwhneiwsqq in VLDL [Mass/Vol]12.2 mg/dL [facility] ColumbusEosinophils/100 WBC Auto (Bld)on 11-24-2024 Eosinophils/100 WBC (Bld)1.3 %0.9-7.0[facility] Erythrocyte distribution width Auto (RBC) [Ratio]on 36-68-5158Uavurtvpnud distribution width (RBC) [Ratio]15.2 %High11.0-15.0[facility] ColumbusEstimated glomerular filtration rate (GFR) non- Americanon 47-51-9330TRB/1.73 sq M.predicted among non-blacks MDRD (S/P/Bld) [Vol rate/Area]mL/min/{1.73_m2}>=60 mL/min/1.73m 2FSouthwest General Health Center Globulin Calc (S) [Mass/Vol]on 87-41-5927Uesulpvd (S) [Mass/Vol]4.2 g/dL [facility] ColumbusGlucose mean value [Mass/volume] in Blood Estimated from glycated hemoglobinon 90-99-7711Iyugzlb glucose Estimated from glycated hemoglobin (Bld) [Mass/Vol]157 mg/dLSelect Medical Specialty Hospital - Columbus Hematocrit Auto (Bld) [Volume fraction]on 00-86-9457Plgpsvzaph (Bld) [Volume fraction]41.8 %Low42.0-54.0[facility] ColumbusHemoglobin A1c percentageon 73-26-2961KzO0l (Bld) [Mass fraction]7.1 %High4.5-6.2FSouthwest General Health CenterComment on above:ADA RECOMMENDED LIMIT 4.0 - 6.0ADA THERAPEUTIC TARGET < 7.0ACTION SUGGESTED> 7.0Hemoglobin [Mass/volume] in Bloodon 51-62-5301Abpuymvmex (Bld) [Mass/Vol]12.9 g/dLLow14.0-18.0[facility] ColumbusLaboratory - Chemistry and Chemistry - challengeon 11-24-2024 Albumin [Mass/Vol]3.0 g/dLLow3.4-5.0[facility] ColumbusALP [Catalytic activity/Vol]106 U/Y80-658HzkzrnvaxSelect Medical Specialty Hospital - ColumbusALT [Catalytic activity/Vol]26 U/H67-79FaqlkirgySelect Medical Specialty Hospital - ColumbusAST [Catalytic activity/Vol]18 U/C92-74AvcremcvsSelect Medical Specialty Hospital - ColumbusBilirubin [Mass/Vol]0.8 mg/dL0.2-1.0[facility] ColumbusCalcium [Mass/Vol]8.6 mg/dL8.5-10.1FSouthwest General Health CenterChloride [Moles/Vol]103 mmol/L 98-107[facility] ColumbusCholesterol [Mass/Vol]95 mg/dL<=200 [facility] ColumbusCholesterol in HDL [Mass/Vol]47 mg/dL40-60 [facility] ColumbusComment on above:> or =60 mg/dl - LOW CARDIOVASCULAR RISK<40 mg/dl - HIGH CARDIOVASCULAR RISKCO2 [Moles/Vol]25.7 mmol/L21.0-32.0[facility] ColumbusCreatinine [Mass/Vol]0.82 mg/dL 0.70-1.30[facility] ColumbusGFR/1.73 sq M.predicted MDRD (S/P/Bld) [Vol rate/Area]mL/min/{1.73_m2}>=60 mL/min/1.73m 2FSouthwest General Health CenterGlucose [Mass/Vol]140 mg/fNSpkr08-926PfwtalzmhSelect Medical Specialty Hospital - Columbus Potassium [Moles/Vol]4.1 mmol/L3.5-5.1FSouthwest General Health CenterProtein [Mass/Vol]7.2 g/dL6.4-8.2FMercy Health Lorain Hospitalodium [Moles/Vol]139 mmol/Q556-441EfmdxpuxfSelect Medical Specialty Hospital - ColumbusTriglyceride [Mass/Vol]61 mg/dL <=150[facility] ColumbusTSH Qn2.780 m[IU]/L0.358-3.740[facility] ColumbusUrea nitrogen [Mass/Vol]17.0 mg/dL7.0-18.0[facility] ColumbusUrea nitrogen/Creatinine [Mass ratio]20.7 mg/mgFirelands Regional Medical CenterLaboratory - Hematology and Cell countson 11-24-2024 Immature granulocytes/100 WBC (Bld)0.3 %0.0-0.5FSouthwest General Health Center Leukocytes [#/volume] corrected for nucleated erythrocytes in Blood by Automated counon 68-46-8288RLN corrected for nucl RBC Auto (Bld) [#/Vol]7.7 10 3/uL 4.0-11.0[facility] ColumbusLymphocytes Auto (Bld) [#/Vol]on 88-78-9789Wghwyxvwxcv (Bld) [#/Vol]2.0 10 3/uL1.2-3.8[facility] ColumbusLymphocytes/100 WBC Auto (Bld)on 99-66-7996Ysubrbciivw/100 WBC (Bld)26.5 % 20.5-60.0[facility] HospitalH Auto (RBC) [Entitic mass]on 71-82-8779GYN (RBC) [Entitic mass]24.1 pgLow25.9-34.0[facility] ColumbusMCHC Auto (RBC) [Mass/Vol]on 63-58-9754QTMO (RBC) [Mass/Vol]30.9 g/dL 29.9-35.2FSouthwest General Health CenterMCV Auto (RBC) [Entitic vol]on 89-09-1773IDL (RBC) [Entitic vol]78.1 fLLow80.0-94.0[facility] ColumbusMonocytes Auto (Bld) [#/Vol]on 68-99-7397Ktcllornb (Bld) [#/Vol]0.6 10 3/uL0.3-0.8[facility] ColumbusMonocytes/100 WBC Auto (Bld)on 14-44-5451Jphegaoom/100 WBC (Bld)7.3 %1.7-12.0[facility] Neutrophils Auto (Bld) [#/Vol]on 36-56-9682Ckoawhcfids (Bld) [#/Vol]5.0 10 3/uL 1.4-6.5FSouthwest General Health CenterNeutrophils/100 WBC Auto (Bld)on 82-09-3948Frchbnfufkc/100 WBC (Bld)64.3 %43.0-75.0[facility] ColumbusNo Panel Informationon 76-04-7193Vxpwlnjgfte # (Auto)0.1 10 3/uL0.0-0.7 [facility] ColumbusImmature Granulocyte # (Auto)0.02 10 3/uL 0.00-0.03[facility] ColumbusProstate Specific Antigen Screen1.20 ng/mL<=4.00[facility] ColumbusPlatelet mean volume Auto (Bld) [Entitic vol]on 38-11-6172Xcofqzfw mean volume (Bld) [Entitic vol]9.8 fL9.5-13.5 [facility] ColumbusPlatelets Auto (Bld) [#/Vol]on 11-24-2024 Platelets (Bld) [#/Vol]329 10 3/yQ352-028LlgbqmjtxSelect Medical Specialty Hospital - ColumbusRBC Auto (Bld) [#/Vol]on 54-35-2775GXA (Bld) [#/Vol]5.35 10 6/uL4.70-6.10[facility] Hospitalerum or plasma albumin/globulin mass ratioon 11-24-2024 Albumin/Globulin [Mass ratio]0.7 {ratio}[facility] Hospitalerum or plasma anion gap determinationon 45-45-5592Ogqyy gap [Moles/Vol]14.4 mmol/L [facility] Hospitalerum or plasma total cholesterol/high density lipoprotein (HDL) cholesterol mass catarina 69-98-5397Fsvelykuguh.total/Cholesterol in HDL [Mass ratio]2.0 {ratio}[facility] ColumbusComment on above:3.3 - 4.4 LOW RISK4.4 - 7.1 AVERAGE RISK7.1 - 11.0 MODERATE RISK>11.0 HIGH RISKProvider Letteron 28-61-7104Lrhlrqvp LetterProvider Letter November 06, [address] [place] [id number] : 1970 Dear Mr. Taras Hayward, We have been trying to reach you with no success. It is important that you return our call regarding your appointment upon receiving this letter. Also, at the time of your call, please provide us with your current information. Thank you for your prompt attention to this matter. We have left a few voicemails stating your appointment needs rescheduled. Please contact us at the number below as soon as possible to get this appointment moved. If appointment not moved before dateof service, pt will be rescheduled the day of in person upon arrival. Sincerely, [place] [address] ext.3 NoUniversity [facility]als [facility] Urineon 15-48-6406Ilphanqi identified Cx Nom (U)Microbiology PROCEDURE: Urine Culture [R1] SOURCE: U CleanCatch BODY SITE: COLLECTED DATE/TIME: 05/15/2024 15:25 EST RECEIVED DATE/TIME: 05/16/2024 17:22 EST START DATE/TIME: 05/16/2024 17:22 EST FREE TEXT SOURCE: DONNA RIVERA PA-C, PA-C, JENNIFER E FINAL REPORTS Final Report [] Verified Date/Time: 05/18/2024 07:40 EST >100,000 cfu/ml Klebsiella pneumoniae SUSCEPTIBILITY RESULTS LEGEND: S=Susceptible, N/R=Not Reported, Blank=Data not available, or drug not advisable or tested, I=Intermediate, ESBL=Extended spectrum beta-lactamase, R=Resistant, TFG=Thymidine-dependent strain, JOSHUA=Beta-lactamase positive, SAI=mcg/m;(mg/L), S*=Predicted susceptible interp, R*=Predicted resistant interp Klepne Antibiotic SAI Dilutn SAI Interp Ampicillin >16 R Ampicillin/ <=8/4 S Sulbactam Aztreonam <=4 S Cefazolin <=2 S Cefepime <=2 S Ceftazidime <=1 S Ceftazidime/ <=8 S Avibactam Ceftriaxone <=1 S Cefuroxime <=4 S Ciprofloxacin <=0.25 S Ertapenem <=0.5 S Gentamicin <=2 S Levofloxacin <=0.5 S Meropenem <=1 S Nitrofurantoin 64 I Piperacillin/ <=8 S Tazobactam Tetracycline <=4 S Tobramycin <=2 S Trimethoprim/ <=2/38 S Sulfa Performing Locations R1: This test was performed at: [facility], [address] [place] [address], [facility] , , StbsmxYcttrzNorwalk Memorial HospitalComment on above:Performed By: #### [id number] #### [facility] [address] [place], [place] [address]Urology Office/Clinic Noteon [phone] Office/Clinic NoteUrology Office/Clinic Note Chief Complaint 6 mth w/ litholink HPI Staff 6 month f/u with [facility] results. Dx: kidney stone, urinary retention and hx of UTI. pt denies having any urinary issues. History of Present Illness staff HPI reviewed and agree. Tests Reviewed: Reviewed UA. Review of Systems PHQ Score Initial Depression Screen Score: 0 SCORE no fever, chills, malaise, myalgia. no rash/lesions. no chest pain, palpitations, or SOB. no abdominal pain, nausea, vomiting. no unilateral calf swelling, redness, pain Physical Exam Vitals & Measurements HR: 82(Peripheral) BP: 138/80 HT: 75 in HT: 190 cm WT: 153.4 kg WT: 338.189 lb BMI: 42.49 General: nontoxic, NAD Mouth: moist mucosa Lungs: normal respiratory effort Cardio: regular rate, good distal perfusion Abdomen: nondistended, no suprapubic distention or tenderness, no CVA tenderness Neurologic: Grossly normal Skin: No rashes or suspicious lesions Assessment/Plan 1. Kidney stone (N20.0: Calculus of kidney) S/p PCNL at [facility] 05/22/[address] Coffey for 3 cm R renal stone. KUB 11/14/22 - 10 mm calculus projecting over the Lt kidney region [facility] 10/19/23 [facility] - no appreciable urinary tract calculi. Eval is limited by dense overlying bowel content. Serum metabolic workup 10/19/23 - all wnl TODAY: Reviewed litholink. Recommended increase fluids 1L, follow low oxalate diet, dietary ca 800-1200mg,limit protein to 1g/kg/d (for him around 140gm/d) -F/u 6 mos w KUB, LEO, and repeat Litholink Ordered: Urine Culture Urnls Dip Stick Auto w/o Microscopy POC 30430 US Renal 2. History of UTI (Z87.440: Personal history of urinary (tract) infections) UCx:02/20/23 - >100k Klebsiella. Tx'd w/ Bactrim. TODAY: UA +nitrites. Pt is asx. Will send for cx. If shows worrisome org or stone- former, will treat. Otherwise can monitor. Ordered: Urine Culture Urnls Dip Stick Auto w/o Microscopy POC 64284 3. History of urinary retention (Z87.898: Personal history of other specified conditions) Had retention episode following PCNL May 2022. Had kramer for a few weeks. Pt was on Flomax for a bit but then dc'd it as he didn't notice difference in sx. Pt was hospitalized in 12/2022 due to stroke. Had another episode of retention (PVR +700ml). Initially CIC was started. Catheter inserted upon DC to rehab facility. Pt was started on Flomax. Kramer dc'd mid 01/2023. PVR (cc): 02/20/23 - 13 TODAY: Feels he empties well. No bothersome LUTS. IPSS 1 (1) Follow-up With When Contact Information MARQUISE PAGE, DONNA Hurt, URL [address] [place] [address] Additional Instructions: Follow up in 6 mos w KUB Renal US Patient Education Acute Urinary Retention, Male Kidney Stones, Qdbo-ya-Vzjp I, Kathrine Reed, personally scribed for JOSE MARTIN Desouza on 05/15/2024 15:44:03. . Documentation recorded by the anisa Reed accurately reflects the services(s) I performed and decisions made by me. Authenticated by Donna Rivera PA-C on 05/15/2024 16:24:42. Problem List/Past Medical History Ongoing Gross hematuria History of UTI Hypertension Kidney stone Nephrolithiasis Other anterior urethral stricture, male Stenosis of left vertebral artery Stroke Ureteric stent present Urinary retention Urinary tract infection Historical No qualifying data Procedure/Surgical History Cystoscopic removal of ureteric stent (08/26/2019), Cystoscope (08/20/2019), Gastric bypass operation, Gastric restrictive procedure, with gastric bypass for morbid obesity; with small intestine reconstruction to limit absorption, Hernia repair, Shunt, Turbinectomy. Medications acetaminophen 500 mg Tab atorvastatin 10 mg Tab carvedilol 6.25 mg Tab [facility] ASPIRIN EC 81 MG TABLET Melatonin, Once a day (at bedtime) ondansetron 4 mg Dis Tab Allergies No Known Allergies Social History Alcohol - Denies Alcohol Use, 08/26/2019 Never., 05/15/2024 Substance Abuse Never., 05/15/2024 Tobacco Never (less than 100 in lifetime) Tobacco Use:., 05/15/2024 Family History BPH - benign prostatic hyperplasia: Father. Cancer: Mother. Immunizations Vaccine Date Status SARS-CoV-2 (COVID-19) mRNA-1273 vaccine 04/11/2022 Recorded influenza virus vaccine, inactivated 04/05/2022 Recorded SARS-CoV-2 (COVID-19) mRNA-1273 vaccine 04/06/2021 Recorded SARS-CoV-2 (COVID-19) mRNA-1273 vaccine 07/07/2020 Recorded SARS-CoV-2 (COVID-19) mRNA-1273 vaccine 06/09/2020 Recorded influenza virus vaccine, live, trivalent 03/11/2019 Recorded Lab Results Ambulatory Point of Care Results Bilirubin Urine Dipstick: Negative (05/15/24 15:03:00) Blood Urine Dipstick: Trace-intact (05/15/24 15:03:00) Glucose Urine Dipstick: 2+ 500 mg/dl (05/15/24 15:03:00) Ketones Urine Dipstick: Negative (05/15/24 15:03:00) Leukocytes Urine Dipstick: Trace (05/15/24 15:03:00) Nitrite Urine Dipstick: (more content not included)...[facility] HospitalComment on above:Result Comment: Electronically Signed By: DONNA RIVERA PA-C\.br\Date and Time Signed: 05/15/2416:25 EST\.br\Electronically Co- Signed By: Kathrine Reed\.br\Date and Time Co-Signed: 05/15/24 15:44 EST Estimated glomerular filtration rate (GFR) non- Americanon 10-19-2023 GFR/1.73 sq M.predicted among non-blacks MDRD (S/P/Bld) [Vol rate/Area] mL/min/{1.73_m2}>=60[facility]Laboratory - Chemistry and Chemistry - challengeon [id number] [Mass/Vol]9.0 mg/dL8.5-10.1FSouthwest General Health CenterChloride [Moles/Vol]104 mmol/B06-055QqvxpfootSelect Medical Specialty Hospital - ColumbusCO2 [Moles/Vol]27.9 mmol/L21.0-32.0[facility] ColumbusCreatinine [Mass/Vol]0.83 mg/dL0.70-1.30[facility] GFR/1.73 sq M.predicted MDRD (S/P/Bld) [Vol rate/Area]mL/min/{1.73_m2}>=60 [facility] Hospitalodium [Moles/Vol]141 mmol/N507-161KoyoplwedSelect Medical Specialty Hospital - ColumbusUrate [Mass/Vol]3.8 mg/dL3.5-7.2FSouthwest General Health CenterUrea nitrogen [Mass/Vol]19.0 mg/dL7.0-18.0[facility] ColumbusNo Panel Informationon 82-84-3754Jwlxnqgvkkh Hormone (Intact)55 pg/cB45-70DqqwdaphxSelect Medical Specialty Hospital - ColumbusComment on above:Performed at: - [facility] [id number] [place], [place] [id number] Director: Dusty Donaldson PhD, Phone: [phone] Level3.6 mg/dL2.6-4.7FSouthwest General Health CenterUS venous duplex LE RTon 23-11-0246YG venous duplex LE RT [facility] [address] Ultrasound Report Signed Patient: Taras Hayward MR#: [id number] 56 : 1970 Acct:[id number] Age/Sex: 52 / M ADM Date: 01/03/23 Loc: Room: [address] [place] [address] Type: ADM IN Attending Dr: Srinivas Patricia [...] Gerardo Miranda M.D.01/23/2023 5:00 PM Dictation Location: [id number] Tech: Rika Rodriguez Transcribed By: ADELA 01/23/23 1700 Dictated By: Gerardo Miranda MD 01/23/23 5846 Signed By: 08/15/23 1700NormalSelect Medical Specialty Hospital - ColumbusAutomated erythrocytes count in urine sediment (number/area)Ordered By: Tisha Cardona on 56-00-1415KGQ Auto (Urine sed) [#/Area]20-49 [HPF]0-4FSouthwest General Health Center Automated leukocytes count in urine sediment (number/area)Ordered By: Tisha Cardona on 73-02-6987WPG Auto (Urine sed) [#/Area]5-9 [HPF]0-4FSouthwest General Health CenterAutomated urine sediment calcium oxalate crystal count by microscopy (number/high powOrdered By: Tisha Cardona on 19-92-2374Eyothww oxalate crystals LM.HPF (Urine sed) [#/Area]Rare [HPF][facility] ColumbusBasic Metabolic Panelon 50-37-3806Ccatc gap [Moles/Vol]10.6 mmol/LNormal 6.0-15.0[facility] - ColumbusComment on above:Performed By: #### BMP, CBC ####[address] [address] USACalcium [Mass/Vol]9.3 mg/dLNormal8.6-10.3FSouthwest General Health Center Comment on above:Performed By: #### BMP, CBC ####[address] [place] [address] USAChloride [Moles/Vol]98 mmol/LNormal 98-107[facility] - ColumbusComment on above:Performed By: #### BMP, CBC ####[address] [address] USACO2 [Moles/Vol]29.2 mmol/NMexjwp31.0-31.0[facility] - ColumbusComment on above:Performed By: #### BMP, CBC ####[address] [address] USACreatinine [Mass/Vol]1.04 mg/dLNormal0.70-1.30 [facility] - ColumbusComment on above:Performed By: #### BMP, CBC ####[address] [address] [place] Creatinine Clr Calc Pxmfnegt158.71NoGalion HospitalComment on above:Result Comment: PERFORMED BY: [facility] [address] [id number] PATHOLOGIST [employer] VICE PRESIDENT DEVANG LEMONS M.D.Performed By: #### BMP, CBC ####[address] [place] [address] USAGFR/1.73 sq M.predicted MDRD (S/P/Bld) [Vol rate/Area]mL/min/{1.73_m2}NormalSelect Medical Specialty Hospital - ColumbusComment on above:Performed By: #### BMP, CBC ####[address] [place] [id number] USAGlucose [Mass/Vol]147 mg/eIBnqw91-570WrzeligurSelect Medical Specialty Hospital - ColumbusComment on above:Result Comment: Random Glucose Reference Range is dependent on time and content of last meal. Glucose of more than 200 mg/dL in a nonstressed, ambulatory subject supports the diagnosis of Diabetes Mellitus. ADA recommended reference rangePerformed By: #### BMP, CBC ####[address] [address] USAPotassium [Moles/Vol] 3.8 mmol/LNormal3.5-5.1FSouthwest General Health CenterComment on above: Performed By: #### BMP, CBC ####[address] [address] USASodium [Moles/Vol]134 mmol/UBwl039-598XqaasdrtvSelect Medical Specialty Hospital - ColumbusComment on above:Performed By: #### BMP, CBC ####[address] [address] USAUrea nitrogen [Mass/Vol]16 mg/dLNormal7-25[facility] - ColumbusComment on above:Performed By: #### BMP, CBC ####[address] [address] USABasophils Auto (Bld) [#/Vol]Ordered By: Tisha Cardona on 49-08-9675Jrmjkmsar (Bld) [#/Vol]0.0 10*3/uL0.0-0.2FSouthwest General Health CenterBasophils/100 WBC Auto (Bld)Ordered By: Tisha Cardona on 45-85-7783Qjwjtewzb/100 WBC (Bld)0.3 %.[facility] Bilirubin Test strip Ql (U)Ordered By: Tisha Cardona on 17-00-7401Gwhsxvoug Ql (U)NegativeNegativeSelect Medical Specialty Hospital - ColumbusCalcium [Mass/volume] in Serum or PlasmaOrdered By: Tisha Cardona on 99-33-9143Qrbzleo [Mass/Vol]9.3 mg/dL8.6-10.3FSouthwest General Health CenterCarbon dioxide, total [Moles/volume] in Serum or PlasmaOrdered By: Tisha Cardona on 50-60-0099YQ6 [Moles/Vol]29.2 mmol/L21.0-31.0[facility] - ColumbusChloride [Moles/volume] in Serum or PlasmaOrdered By: Tisha Cardona on 01-22-2023 Chloride [Moles/Vol]98 mmol/U69-132XlueojqclSelect Medical Specialty Hospital - ColumbusColor Auto (U)Ordered By: Tisha Cardona on 14-51-0829Dddpp (U)OrangeYellowSelect Medical Specialty Hospital - ColumbusComplete Blood Count Auto Diffon 77-48-8138Ljwbmsqlr (Bld) [#/Vol]0.0 10*3/uLNormal0.0-0.2FSouthwest General Health CenterComment on above:Result Comment: PERFORMED BY: [facility] [address] [id number] PATHOLOGIST [employer] VICE PRESIDENT DEVANG LEMONS M.D.Performed By: #### BMP, CBC ####[facility] [address] [place] [address] USABasophils/100 WBC (Bld)0.3 %Normal. [facility] - ColumbusComment on above:Performed By: #### BMP, CBC ####[facility] [address] [place] Eosinophils (Bld) [#/Vol]0.2 10*3/uLNormal0.0-0.45[facility] - ColumbusComment on above:Performed By: #### BMP, CBC ####[id number] USAEosinophils/100 WBC (Bld)2.4 % Normal.[facility] - ColumbusComment on above:Performed By: #### BMP, CBC ####[place] [address] [place] Erythrocyte distribution width (RBC) [Ratio]14.8 %Lbgoyv98.0-14.8[facility] Hospital - ColumbusComment on above:Performed By: #### BMP, CBC ####[address] Hematocrit (Bld) [Volume fraction]42.6 %Plclvf32.8-50.0[facility] - ColumbusComment on above:Performed By: #### BMP, CBC ####[place] [address] USAHemoglobin (Bld) [Mass/Vol]13.8 g/sKKjaxvt00.0-17.0[facility] - ColumbusComment on above:Performed By: #### BMP, CBC ####[place] [address] USALymphocytes (Bld) [#/Vol]2.0 10*3/uLNormal1.00-4.8 [facility] - ColumbusComment on above:Performed By: #### BMP, CBC ####[place] [address] [place] Lymphocytes/100 WBC (Bld)25.4 %Normal.[facility] - ColumbusComment on above:Performed By: #### BMP, CBC ####[place] [id number] USAMCH (RBC) [Entitic mass]27.8 ziDmeasf25.5-35.2 [facility] - ColumbusComment on above:Performed By: #### BMP, CBC ####[address] [place] [address] USAMCV (RBC) [Entitic vol]85.7 eSDiuzbp28.5-101[facility] - ColumbusComment on above:Performed By: #### BMP, CBC ####[address] [address] USAMean Corpuscular HGB Conc32.4 g/dLLow32.5-35.6 [facility] - ColumbusComment on above:Performed By: #### BMP, CBC ####[address] [address] [place] Monocytes (Bld) [#/Vol]0.5 10*3/uLNormal0.0-0.8[facility] Comment on above:Performed By: #### BMP, CBC ####[address] [id number] USAMonocytes/100 WBC (Bld)6.7 %Normal. [facility] - ColumbusComment on above:Performed By: #### BMP, CBC ####[address] [address] [place] Neutrophils (Bld) [#/Vol]5.2 10*3/uLNormal1.8-7.7FSouthwest General Health CenterComment on above:Performed By: #### BMP, CBC ####[address] [address] USANeutrophils/100 WBC (Bld)65.2 %Normal.[facility] - ColumbusComment on above:Performed By: #### BMP, CBC ####[address] [address] USANRBC%0.1 /100{WBC}Normal0-0.5FSouthwest General Health CenterComment on above:Performed By: #### BMP, CBC ####[address] [address] USAPlatelet mean volume (Bld) [Entitic vol]8.0 fLNormal 6.6-10.1FSouthwest General Health CenterComment on above:Performed By: #### BMP, CBC ####[facility] [address] [place] [address] USAPlatelets (Bld) [#/Vol]280 10*3/eDVynqdo812-217DinwivggqSelect Medical Specialty Hospital - ColumbusComment on above:Performed By: #### BMP, CBC ####[facility] [address] [place] [address] USARBC (Bld) [#/Vol]4.97 10*6/uL Normal3.90-5.60[facility] - ColumbusComment on above:Performed By: #### BMP, CBC ####[facility] [address] [place] [address] USAWBC (Bld) [#/Vol]8.0 10*3/uLNormal4.1-10.5FSouthwest General Health CenterComment on above:Performed By: #### BMP, CBC ####[facility] [address] [place], [place] [address] USACreatinine [Mass/volume] in Serum or PlasmaOrdered By: Tisha Cardona on 76-40-9414Yoaqaswtpi [Mass/Vol] 1.04 mg/dL0.70-1.30[facility] - ColumbusDipstick and Microscopicon 75-15-9782Daenwtnsaq (U)CloudyCritically abnormalCleAvita Health SystemComment on above:Order Comment: Name Collection Type:: Kramer Catheter Performed By: #### CUU, ADDONUAPLUS #### [facility] [address] [place] [address] USABacteria,UrineRareHighNone [facility] Akron GeneralComment on above:Order Comment: Name Collection Type:: Kramer Catheter Performed By: #### CUU, ADDONUAPLUS #### [facility] [address] [id number] USABilirubin,UrineNegativeNormalNegativeSelect Medical Specialty Hospital - ColumbusComment on above:Order Comment: Name Collection Type:: Kramer CatheterPerformed By: #### CUU, ADDONUAPLUS #### [facility] [id number] USACalcium Oxalate Crystals,UrineRareNormalSelect Medical Specialty Hospital - ColumbusComment on above:Order Comment: Name Collection Type:: Kramer CatheterPerformed By: #### CUU, ADDONUAPLUS #### [facility] [address] [place] [address] USAColor (U)OrangeCritically abnormalYellowSelect Medical Specialty Hospital - ColumbusComment on above:Order Comment: Name Collection Type:: Kramer CatheterPerformed By: #### CUU, ADDONUAPLUS #### [facility] [address] [place] [address] USAGlucose Ql (U)NormalNormalNormalSelect Medical Specialty Hospital - ColumbusComment on above:Order Comment: Name Collection Type:: Kramer Catheter Performed By: #### CUU, ADDONUAPLUS #### [facility] [address] [place] [address] USAHyaline Casts,UrineNone SeenNormal0-8[facility] - ColumbusComment on above:Order Comment: Name Collection Type:: Kramer CatheterPerformed By: #### CUU, ADDONUAPLUS #### [facility] [address] [place] [address] USAKetones Ql (U)TraceHighNegativeSelect Medical Specialty Hospital - ColumbusComment on above:Order Comment: Name Collection Type:: Kramer Catheter Performed By: #### CUU, ADDONUAPLUS #### [facility] [address] [place] [address] USALeukocyte esterase Test strip Ql (U)2+HighNegative [facility] - ColumbusComment on above:Order Comment: Name Collection Type:: Kramer CatheterPerformed By: #### CUU, ADDONUAPLUS #### [facility] [address] [place] [address] USANitrite,UrineNegativeNormalNegativeSelect Medical Specialty Hospital - ColumbusComment on above:Order Comment: Name Collection Type:: Kramer CatheterPerformed By: #### CUU, ADDONUAPLUS #### [facility] [address] [place] [address] USAOccult Blood,Urine3+HighNegJoint Township District Memorial HospitalComment on above:Order Comment: Name Collection Type:: Kramer Catheter Result Comment: PERFORMED BY: [place] [address] PATHOLOGIST [employer] VICE PRESIDENT DEVAGN LEMONS M.D.Performed By: #### CUU, ADDONUAPLUS #### [facility] [address] [place] [address] USApH (U)5.5 [pH]Normal5.0-9.0[facility] - ColumbusComment on above:Order Comment: Name Collection Type:: Kramer Catheter Performed By: #### CUU, ADDONUAPLUS #### [facility] [address] [place] [address] USAProtein (U) [Mass/Vol]100 mg/dLHighNegJoint Township District Memorial HospitalComment on above:Order Comment: Name Collection Type:: Kramer CatheterPerformed By: #### CUU, ADDONUAPLUS #### [facility] [address] [place] [address] USARBC,Wtzqa89-07Wkvs6-7YonssvwhvSouthwest General Health Center Comment on above:Order Comment: Name Collection Type:: Kramer CatheterPerformed By: #### CUU, ADDONUAPLUS #### [facility] [address] [place] [address] USASpecificy [place],Urine1.721Ulugpf9.001-1.030[facility] - ColumbusComment on above:Order Comment: Name Collection Type:: Kramer CatheterPerformed By: #### CUU, ADDONUAPLUS #### [facility] [address] [place] [address] USASquamous Epithelial Cell,UrineNone SeenNormal0-2FSouthwest General Health CenterComment on above:Order Comment: Name Collection Type:: Kramer CatheterPerformed By: #### CUU, ADDONUAPLUS #### [facility] [address] [place] [address] USAUrobilinogen,UrineNormalNormalNormalSelect Medical Specialty Hospital - ColumbusComment on above:Order Comment: Name Collection Type:: Kramer CatheterPerformed By: #### CUU, ADDONUAPLUS #### [facility] [id number] USAWBC,Dlowt5-1Ywip4-1YzqpsbqowSouthwest General Health Center Comment on above:Order Comment: Name Collection Type:: Kramer CatheterPerformed By: #### CUU, ADDONUAPLUS #### [facility] [address] [place] [address] USAYeast,UrineNone SeenNormalNone SeenSelect Medical Specialty Hospital - ColumbusComment on above:Order Comment: Name Collection Type:: Kramer CatheterResult Comment: PERFORMED BY: [facility] [address] [place] [address] PATHOLOGIST E[employer] VICE PRESIDENT DEVANG LEMONS M.D.Performed By: #### CUU, ADDONUAPLUS #### [facility] [address] [place] [address] USAEosinophils Auto (Bld) [#/Vol]Ordered By: Tisha Cardona on 25-57-1939Sstfaphuuka (Bld) [#/Vol]0.2 10*3/uL0.0-0.45[facility] - ColumbusEosinophils/100 WBC Auto (Bld)Ordered By: Tisha Cardona on 10-71-0140Ygmddoymbkh/100 WBC (Bld)2.4 %.[facility] Erythrocyte distribution width Auto (RBC) [Ratio]Ordered By: Tisha Cardona on 07-74-2293Ebvteorwdhp distribution width (RBC) [Ratio]14.8 %12.0-14.8[facility] - ColumbusGlucose [Mass/volume] in Serum or PlasmaOrdered By: Tisha Cardona on 85-78-6039Yhfaohs [Mass/Vol]147 mg/yP51-875MmfuxjoflSelect Medical Specialty Hospital - ColumbusComment on above:ADA recommended reference rangeRandom Glucose Reference Range is dependent on time and content of last meal. Glucose of more than 200 mg/dL in a nonstressed, ambulatory subject supports the diagnosisof Diabetes Mellitus.Hematocrit Auto (Bld) [Volume fraction]Ordered By: Tisha Cardona on 22-22-1163Ctueuznpkg (Bld) [Volume fraction]42.6 %38.8-50.0 [facility] - ColumbusHemoglobin [Mass/volume] in BloodOrdered By: Tisha Cardona on 29-55-1681Wqathbpwcb (Bld) [Mass/Vol]13.8 g/dL13.0-17.0 [facility] - ColumbusKetones Auto test strip (U) [Mass/Vol]Ordered By: Tisha Cardona on 96-69-9331Rjjrwrr (U) [Mass/Vol]TraceNegativeSelect Medical Specialty Hospital - ColumbusLaboratory - UrinalysisOrdered By: Tisha Cardona on 60-01-3207Ejnvshd casts LM Ql (Urine sed)None seen [LPF]0-8[facility] - ColumbusLeukocytes [#/volume] corrected for nucleated erythrocytes in Blood by Automated counOrdered By: Tisha Cardona on 68-63-2822YLO corrected for nucl RBC Auto (Bld) [#/Vol]8.0 10*3/uL4.1-10.5FSouthwest General Health CenterLymphocytes Auto (Bld) [#/Vol]Ordered By: Tisha Cardona on 01-22-2023 Lymphocytes (Bld) [#/Vol]2.0 10*3/uL1.00-4.8[facility] Lymphocytes/100 WBC Auto (Bld)Ordered By: Tisha Cardona on 01-22-2023 Lymphocytes/100 WBC (Bld)25.4 %.[facility] HospitalH Auto (RBC) [Entitic mass]Ordered By: Tisha Cardona on 45-27-7940SQK (RBC) [Entitic mass] 27.8 pg27.5-35.2FSouthwest General Health CenterMCHC Auto (RBC) [Mass/Vol] Ordered By: Tisha Cardona on 67-54-5741XBVZ (RBC) [Mass/Vol]32.4 g/dL 32.5-35.6FSouthwest General Health CenterMCV Auto (RBC) [Entitic vol]Ordered By: Tisha Cardona on 25-00-5797DPP (RBC) [Entitic vol]85.7 fL83.5-101 [facility] - ColumbusMonocytes Auto (Bld) [#/Vol]Ordered By: Tisha Cardona on 65-20-9775Beoxonfsv (Bld) [#/Vol]0.5 10*3/uL0.0-0.8[facility] - ColumbusMonocytes/100 WBC Auto (Bld)Ordered By: Tisha Cardona on 95-53-5243Cgxafukfd/100 WBC (Bld)6.7 %.[facility] Neutrophils Auto (Bld) [#/Vol]Ordered By: Tisha Cardona on 01-22-2023 Neutrophils (Bld) [#/Vol]5.2 10*3/uL1.8-7.7FSouthwest General Health Center Neutrophils/100 WBC Auto (Bld)Ordered By: Tisha Cardona on 01-22-2023 Neutrophils/100 WBC (Bld)65.2 %.[facility] Hospital - ColumbusNitrite Test strip Ql (U)Ordered By: Tisha Cardona on 31-69-0383Rtxblbj Ql (U)Negative NegativeSelect Medical Specialty Hospital - ColumbusNo Panel InformationOrdered By: Tisha Cardona on 97-70-7185Iflwjtwbb GFR (CKD-EPI)> 60.0 mL/MinSelect Medical Specialty Hospital - ColumbusPharmacy Creatinine Clearance (Fnkx086.71[facility] - ColumbusNucleated erythrocytes [Presence] in Blood by Automated count Ordered By: Tisha Cardona on 41-02-7632Wuuglihwo RBC Auto Ql (Bld)0.1 /100{WBC}0-0.5FSouthwest General Health CenterPlatelet mean volume Auto (Bld) [Entitic vol]Ordered By: Tisha Cardona on 19-07-6891Wogpvxep mean volume (Bld) [Entitic vol]8.0 fL6.6-10.1FSouthwest General Health CenterPlatelets Auto (Bld) [#/Vol]Ordered By: Tisha Cardona on 59-10-5850Znvbblfbx (Bld) [#/Vol] 280 10*3/jP448-805TzkyuasheSelect Medical Specialty Hospital - ColumbusPotassium [Moles/volume] in Serum or PlasmaOrdered By: Tisha Cardona on 53-49-8781Kikyrwrad [Moles/Vol] 3.8 mmol/L3.5-5.1FSouthwest General Health CenterProtein Auto test strip (U) [Mass/Vol]Ordered By: Tisha Cardona on 74-37-4768Mvxwtys (U) [Mass/Vol]100 mg/dLNegativeSelect Medical Specialty Hospital - ColumbusRBC Auto (Bld) [#/Vol]Ordered By: Tisha Cardona on 01-20-5224ZHD (Bld) [#/Vol]4.97 10*6/uL3.90-5.60Zanesville City Hospitalerum or plasma anion gap determinationOrdered By: Tisha Cardona on 11-58-2910Fmahx gap [Moles/Vol]10.6 mmol/L6.0-15.0Z[facility]ville City Hospitalodium [Moles/volume] in Serum or PlasmaOrdered By: Tisha Cardona on 51-28-1927Hskwiw [Moles/Vol]134 mmol/X894-841NotnagdhkZanesville City Hospitalpecific gravity Auto test strip (U) [Rel density]Ordered By: Tisha Cardona on 02-40-1564Nepdrssi gravity (U) [Rel density]1.0241.001-1.030 [facility] City Hospitalquamous epithelial cells detection in urine sediment by light microscopyOrdered By: Tisha Cardona on 46-18-0263Jfegrvnoja cells.squamous LM Ql (Urine sed)None seen [HPF]0-2FSouthwest General Health CenterUrea nitrogen [Mass/volume] in Serum or PlasmaOrdered By: Tisha Cardona on 21-70-7818Yurh nitrogen [Mass/Vol]16 mg/dL7-25Select Medical Specialty Hospital - ColumbusUrine Cultureon 26-48-8877Xeeqresb identified Cx Nom (U)<9,000 colonies/ml mixed bacterial skin contaminants 2 Days PERFORMED BY: [facility] [address] [place] [address] PATHOLOGIST ENROLLMENT SERVICES VICE PRESIDENT DEVANG LEMONS M.D.NormalSelect Medical Specialty Hospital - ColumbusComment on above: Performed By: #### CUU, ADDONUAPLUS #### [facility] [address] [place] [address] USAUrine bacteria detection by automated methodOrdered By: Tisha Cardona on 05-43-6441Clkbzqle Auto Ql (U)RareNone SeenSelect Medical Specialty Hospital - ColumbusUrine clarity by refractometry automatedOrdered By: Tisha Cardona on 98-61-6721Qfqkrpx Refractometry automated (U)CloudyClearFSouthwest General Health CenterUrine culture routineOrdered By: Tisha Cardona on 46-82-6259Artiqqbs identified Cx Nom (U)2 DaysSelect Medical Specialty Hospital - Columbus Urine glucose measurement by automated test strip (mass/volume)Ordered By: Tisha Cardona on 16-36-3349Qaqoixt Auto test strip (U) [Mass/Vol]Normal mg/dL NormalSelect Medical Specialty Hospital - ColumbusUrine hemoglobin detection by automated test stripOrdered By: Tisha Cardona on 94-84-4065Rsqoyezwon Auto test strip Ql (U)3+NegativeSelect Medical Specialty Hospital - ColumbusUrine leukocyte esterase detection by automated test stripOrdered By: Tisha Cardona on 01-22-2023 Leukocyte esterase Auto test strip Ql (U)2+NegativeSelect Medical Specialty Hospital - ColumbusUrobilinogen Auto test strip (U) [Mass/Vol]Ordered By: Tisha Cardona on 68-36-1390Ggamfvzsxcwp (U) [Mass/Vol]Normal mg/dLNormalSelect Medical Specialty Hospital - ColumbusWBC Auto (Bld) [#/Vol]Ordered By: Tisha Cardona on 01-22-2023 WBC (Bld) [#/Vol]8.0 10*3/uL4.1-10.5FSouthwest General Health CenterYeast detection in urine sediment by light microscopyOrdered By: Tisha Cardona on 07-51-8096Sfcnp LM Ql (Urine sed)None seen [HPF]None SeenSelect Medical Specialty Hospital - ColumbuspH Auto test strip (U)Ordered By: Tisha Cardona on 08-02-1958kM (U)5.5 [pH]5.0-9.0Select [facility] Hospital - ColumbusBasic Metabolic Panelon 32-90-5410Zznpp gap [Moles/Vol]13.5 mmol/LNormal6.0-15.0Select [facility] Hospital - ColumbusComment on above:Performed By: #### CBC, BMP ####[facility] [place] [address] USACalcium [Mass/Vol]8.8 mg/dLNormal8.6-10.3FSouthwest General Health CenterComment on above:Performed By: #### CBC, BMP ####[place] [address] [place] [address] USAChloride [Moles/Vol]99 mmol/BGqosln90-571ZomjmagmzSelect Medical Specialty Hospital - ColumbusComment on above:Performed By: #### CBC, BMP ####[place] [address] [place] [address] USACO2 [Moles/Vol]26.2 mmol/L Iuoxbl63.0-31.0Select Medical Specialty Hospital - ColumbusComment on above:Performed By: #### CBC, BMP ####[place] [address] [place] [address] USACreatinine [Mass/Vol]1.02 mg/dLNormal0.70-1.30Select [facility]ty Hospital - ColumbusComment on above:Performed By: #### CBC, BMP ####[place] [address] [place] [address] USACreatinine Clr Calc Rrtibupb264.51NoalSelect Medical Specialty Hospital - ColumbusComment on above:Result Comment: PERFORMED BY: [facility] [address] [place] [address] PATHOLOGIST ENROLLMENT SERVICES VICE PRESIDENT DEVANG LEMONS M.D.Performed By: #### CBC, BMP ####[address] [address] USAGFR/1.73 sq M.predicted MDRD (S/P/Bld) [Vol rate/Area]mL/min/{1.73_m2}NormalSelect Medical Specialty Hospital - ColumbusComment on above:Performed By: #### CBC, BMP ####[address] [address] USAGlucose [Mass/Vol]109 mg/uBImgs06-338SweurznqySelect Medical Specialty Hospital - ColumbusComment on above:Result Comment: Random Glucose Reference Range is dependent on time and content of last meal. Glucose of more than 200 mg/dL in a nonstressed, ambulatory subject supports the diagnosis of Diabetes Mellitus. ADA recommended reference rangePerformed By: #### CBC, BMP ####[place] [address] [place] [id number] USAPotassium [Moles/Vol] 3.7 mmol/LNormal3.5-5.1FSouthwest General Health CenterComment on above: Performed By: #### CBC, BMP ####[place] [address] USASodium [Moles/Vol]135 mmol/GTao486-440KhnsuztioSelect Medical Specialty Hospital - ColumbusComment on above:Performed By: #### CBC, BMP ####[place] [id number] USAUrea nitrogen [Mass/Vol]18 mg/dLNormal7-25Select [facility] Specialty Hospital - ColumbusComment on above:Performed By: #### CBC, BMP ####[place] [address] USAComplete Blood Count Auto Diffon 16-88-7948Oecgtvlnz (Bld) [#/Vol]0.0 10*3/uLNormal0.0-0.2FSouthwest General Health CenterComment on above:Result Comment: PERFORMED BY: [facility] [address] [place] [id number] PATHOLOGIST ENROLLMENT SERVICES VICE PRESIDENT DEVANG LEMONS M.D.Performed By: #### CBC, BMP ####[place] [id number] USABasophils/100 WBC (Bld)0.3 %Normal. [facility] Specialty Hospital - ColumbusComment on above:Performed By: #### CBC, BMP ####[place] [address] [place] Eosinophils (Bld) [#/Vol]0.1 10*3/uLNormal0.0-0.45Select Medical Specialty Hospital - ColumbusComment on above:Performed By: #### CBC, BMP ####[place] [address] USAEosinophils/100 WBC (Bld)1.2 % Normal.Select Medical Specialty Hospital - ColumbusComment on above:Performed By: #### CBC, BMP ####[address] Erythrocyte distribution width (RBC) [Ratio]14.3 %Sgxlls24.0-14.8Select Medical Specialty Hospital - ColumbusComment on above:Performed By: #### CBC, BMP ####[address] Hematocrit (Bld) [Volume fraction]41.8 %Pjtjjt69.8-50.0Select [facility] Specialty Hospital - ColumbusComment on above:Performed By: #### CBC, BMP ####[place] [address] USAHemoglobin (Bld) [Mass/Vol]13.6 g/sMOcbjvd12.0-17.0Select [facility] Hospital - ColumbusComment on above:Performed By: #### CBC, BMP ####[place] [address] USALymphocytes (Bld) [#/Vol]3.2 10*3/uLNormal1.00-4.8 [facility] Hospital - ColumbusComment on above:Performed By: #### CBC, BMP ####[place] [address] [place] Lymphocytes/100 WBC (Bld)36.1 %Normal.Select Medical Specialty Hospital - ColumbusComment on above:Performed By: #### CBC, BMP ####[place] [address] USAMCH (RBC) [Entitic mass]27.7 ndXmpywr01.5-35.2 [facility] Hospital - ColumbusComment on above:Performed By: #### CBC, BMP ####[place] [address] USAMCV (RBC) [Entitic vol]84.9 qCZpmuvr18.5-101Select Medical Specialty Hospital - ColumbusComment on above:Performed By: #### CBC, BMP ####[address] [place] [address] USAMean Corpuscular HGB Conc32.6 g/dLNormal 32.5-35.6FSouthwest General Health CenterComascension [facility] on above:Performed By: #### CBC, BMP ####[address] [address] USAMonocytes (Bld) [#/Vol]0.8 10*3/uLNormal0.0-0.8[facility] Hospital - ColumbusComascension providence [facility] on above:Performed By: #### CBC, BMP ####[address] [address] USAMonocytes/100 WBC (Bld)8.7 % Normal.Select [facility] Hospital - ColumbusComascension providence [facility] hospital on above:Performed By: #### CBC, BMP ####[address] [address] [place] Neutrophils (Bld) [#/Vol]4.7 10*3/uLNormal1.8-7.7FSouthwest General Health CenterComascension providence [facility] hospital on above:Performed By: #### CBC, BMP ####[address] [address] USANeutrophils/100 WBC (Bld)53.7 %Normal.[facility] Hospital - ColumbusComascension prov[facility] hospital on above:Performed By: #### CBC, BMP ####[address] [address] USANRBC%0.2 /100{WBC}Normal0-0.5FSouthwest General Health CenterComascension providence ro[facility] hospital on above:Performed By: #### CBC, BMP ####[address] [address] USAPlatelet mean volume (Bld) [Entitic vol]8.1 fLNormal 6.6-10.1FSouthwest General Health CenterComascension providence ro[facility] hospital on above:Performed By: #### CBC, BMP ####[address] [address] USAPlatelets (Bld) [#/Vol]245 10*3/uJAjjbdi513-001AdxclurhiSelect Medical Specialty Hospital - ColumbusComment on above:Performed By: #### CBC, BMP ####[facility] [address] [place] [address] USARBC (Bld) [#/Vol]4.92 10*6/uL Normal3.90-5.60Select [facility]ty Hospital - ColumbusComment on above:Performed By: #### CBC, BMP ####[facility] [address] [place] [address] USAWBC (Bld) [#/Vol]8.8 10*3/uLNormal4.1-10.5FSouthwest General Health CenterComment on above:Performed By: #### CBC, BMP ####[facility] [address] [place] [address] USAMR head/brain wo conon 90-98-0757OG head/brain wo [facility] [address] [place] [address] MRI Report Signed Patient: Taras Hayward MR#: [id number] 56 : 1970 Acct:[id number] Age/Sex: 52 / M ADM Date: 01/03/23 Loc: Room: [address] [place] [address] Type: ADM IN Attending Dr: Srinivas Patricia MD Copies to: DO Srinivas Smith MD Ordering Provider: Pilo Nieto DO Date of Service: 01/18/23 MR/MR head/brain wo con: worsened dysarthria, hx cerebellar CVA, SAFETY DIRECTOR shunt EXAMINATION: MRI OF THE BRAIN WITHOUT [...] [place] Jordan M.D.01/18/2023 3:43 PM Dictation Location: [place] [address] Transcribed By: [facility] 01/18/23 1543 Dictated By: [place] Jordan MD 01/18/23 1535 Signed By: 01/18/23 1543Tr[facility]ull Memorial HospitalXR pre/post mri xrayon 94-34-6239JH pre/[facility] [place] [address] [place] [address] XRay Report Signed Patient: aTras Hayward MR#: [id number] 56 : 1970 Acct:[id number] Age/Sex: 52 / M ADM Date: 01/03/23 Loc: Room: [address] [place] [address] Type: ADM IN Attending Dr: Srinivas Patricia MD Copies to: Srinivas Patricia MD Ordering Provider: Srinivas Patricia MD Date of Service: 01/18/23 XR/XR pre/post mri xray: SHUNT CHECK PRE-MRI CALVARIUM - 4 images CLINICAL DATA: Pre-MRI assessment in patient with SAFETY DIRECTOR shunt. COMPARISON: CT 01/12/2023 AP and lateral views were obtained. There is a right-sided ventriculoperitoneal shunt through a posterior parietal approach. The visualized hardware appears intact. There is prior occipital craniectomy. There are no acute osseous abnormalities. The visualized paranasal sinuses appear clear. XR/XR pre/post mri xray IMPRESSION: RIGHT-SIDED VENTRICULOPERITONEAL SHUNT. Impression dictated by: [place] Jordan M.D.01/18/2023 3:35 PM Dictation Location: [facility]--10 Transcribed By: ADELA 01/18/231534 Dictated By: Sharno [place] MD 01/18/231532 Signed By: 01/18/231534Trumbull Memorial HospitalNordiazepam [Mass/volume] in Serum or PlasmaOrdered By: Megha Lacy on 86-54-2161Opnhligwalp [Mass/Vol] <0.1 ug/mL.Select [facility]ty Hospital - ColumbusComment on above:This test was developed and its performance characteristicsdetermined by [facility]. It has not been cleared orapproved by the Food and Drug Administration.Serum or plasma diazepam measurement (mass/volume)Ordered By: Megha Lacy on 01-15-2023 diazePAM [Mass/Vol]<0.1 ug/mL.Select [facility]ty Hospital - ColumbusComment on above: This test was developed and its performance characteristicsdetermined by [facility]. It has not been cleared orapproved by the Food and Drug Administration. Valiumon 19-16-0318Guehhwzhafn<0.1Normal.[facility] Comment on above:Result Comment: This test was developed and its performance characteristics determined by [facility]. It has not been cleared or approved by the Food and Drug Administration.Performed By: #### VALIUM ####[facility] ,Total ([place])<.2Low0.2-2.5FSouthwest General Health CenterComment on above:Result Comment: Detection Limit = 0.10 Performed at: [facility] [address] [id number] Software Development Specialist: Mandy Eid MD, Phone: [phone] PERFORMED BY: [facility] [address] [place] [address] PATHOLOGIST ENROLLMENT SERVICES VICE PRESIDENT DEVANG LEMONS M.D.Performed By: #### VALIUM ####[facility] ,Valium<0.1 Normal.Select [facility] Specialty Hospital - ColumbusComment on above:Result Comment: This test was developed and its performance characteristics determined by [facility]. It has not been cleared or approved by the Food and Drug Administration.Performed By: #### VALIUM ####[facility] ,diazePAM+Nordiazepam [Mass/volume] in Serum or Plasma Ordered By: Megha Lacy on 56-39-2492bpncrLCH+Nordiazepam [Mass/Vol]<.2 ug/mL 0.2-2.5FSouthwest General Health CenterComment on above:Detection Limit = 0.10Performed at: [facility] [address] [id number] Director: Mandy Eid MD, Phone: [phone] Metabolic Panelon 52-02-0461Wqmlt gap [Moles/Vol]11.5 mmol/LNormal6.0-15.0[facility] Hospital - ColumbusComment on above:Performed By: #### CBC, BMP #### [facility] [address] [place] [address] USACalcium [Mass/Vol]8.8 mg/dLNormal8.6-10.3FSouthwest General Health CenterComment on above:Performed By: #### CBC, BMP #### [facility] [address] [place] [address] USAChloride [Moles/Vol]101 mmol/DVazyeu06-499GuxwztwhlSelect Medical Specialty Hospital - ColumbusComment on above:Performed By: #### CBC, BMP #### [facility] [address] [place] [address] USACO2 [Moles/Vol]26.5 mmol/KOgpkvc22.0-31.0[facility] Hospital - ColumbusComment on above:Performed By: #### CBC, BMP #### [facility] [address] [place] [address] USACreatinine [Mass/Vol]1.12 mg/dLNormal0.70-1.30[facility] Hospital - ColumbusComment on above:Performed By: #### CBC, BMP #### [facility] [address] [place] [address] USACreatinine Clr Calc Qcnccgcs253.62NormMercy Health West HospitalComment on above:Result Comment: PERFORMED BY: [place] [address] PATHOLOGIST ENROLLMENT SERVICES VICE PRESIDENT DEVANG LEMONS M.D.Performed By: #### CBC, BMP #### [place] [address] USAGFR/1.73 sq M.predicted MDRD (S/P/Bld) [Vol rate/Area] mL/min/{1.73_m2}NormalSelect Medical Specialty Hospital - ColumbusComment on above: Performed By: #### CBC, BMP #### [place] [address] USAGlucose [Mass/Vol]121 mg/wCRgju09-204NixdgyrckSelect Medical Specialty Hospital - ColumbusComment on above:Result Comment: Random Glucose Reference Range is dependent on time and content of last meal. Glucose of more than 200 mg/dL in a nonstressed, ambulatory subject supports the diagnosis of Diabetes Mellitus. ADA recommended reference rangePerformed By: #### CBC, BMP #### [place] [address] USAPotassium [Moles/Vol]4.0 mmol/LNormal3.5-5.1FSouthwest General Health CenterComment on above:Performed By: #### CBC, BMP #### [place] [address] USASodium [Moles/Vol]135 mmol/PBok144-014VeugsrrdlSelect Medical Specialty Hospital - ColumbusComment on above:Performed By: #### CBC, BMP #### [place] [address] USAUrea nitrogen [Mass/Vol]15 mg/dLNormal7-25[facility] Hospital - ColumbusComment on above:Performed By: #### CBC, BMP #### [place] [address] USAComplete Blood Count Auto Diffon 45-63-7820Xwyughrlx (Bld) [#/Vol]0.0 10*3/uLNormal0.0-0.2FSouthwest General Health CenterComment on above:Result Comment: PERFORMED BY: [address] [place] [address] PATHOLOGIST ENROLLMENT SERVICES VICE PRESIDENT DEVANG LEMONS M.D.Performed By: #### CBC, BMP #### [place] [address] USABasophils/100 WBC (Bld)0.2 %Normal.Select Medical Specialty Hospital - ColumbusComment on above:Performed By: #### CBC, BMP #### [place] [address] USAEosinophils (Bld) [#/Vol]0.1 10*3/uLNormal0.0-0.45 [facility] Hospital - ColumbusComment on above:Performed By: #### CBC, BMP #### [place] [address] USAEosinophils/100 WBC (Bld)1.5 %Normal.[facility] Medical Specialty Hospital - ColumbusComment on above:Performed By: #### CBC, BMP #### [place] [address] USAErythrocyte distribution width (RBC) [Ratio]14.3 %Normal 12.0-14.8[facility] Specialty Hospital - ColumbusComment on above:Performed By: #### CBC, BMP #### [place] [address] USAHematocrit (Bld) [Volume fraction]38.6 %Low38.8-50.0 [facility] Hospital - ColumbusComment on above:Performed By: #### CBC, BMP #### [place] [address] USAHemoglobin (Bld) [Mass/Vol]12.7 g/dLLow13.0-17.0[facility] Hospital - ColumbusComment on above:Performed By: #### CBC, BMP #### [place] [address] USALymphocytes (Bld) [#/Vol]2.5 10*3/uLNormal1.00-4.8 [facility] Hospital - ColumbusComment on above:Performed By: #### CBC, BMP #### [address] [place] [address] USALymphocytes/100 WBC (Bld)28.7 %Normal.[facility] Hospital - ColumbusComment on above:Performed By: #### CBC, BMP #### [facility] [address] [place] [address] USAMCH (RBC) [Entitic mass]27.8 kjVyzupt66.5-35.2FSouthwest General Health CenterComment on above:Performed By: #### CBC, BMP #### [facility] [address] [place] [address] USAMCV (RBC) [Entitic vol]84.8 bITcxhny88.5-101Select [facility] Hospital - ColumbusComment on above:Performed By: #### CBC, BMP #### [facility] [address] [place] [address] USAMean Corpuscular HGB Conc32.8 g/qNAraevi11.5-35.6FSouthwest General Health CenterComment on above:Performed By: #### CBC, BMP #### [facility] [address] [place] [address] USAMonocytes (Bld) [#/Vol]0.7 10*3/uLNormal0.0-0.8[facility] - ColumbusComascension prov[facility] hospital on above:Performed By: #### CBC, BMP #### [place] [address] USAMonocytes/100 WBC (Bld)8.6 %Normal.[facility] Specialty Hospital - ColumbusComment on above:Performed By: #### CBC, BMP #### [facility] [address] [place] [address] USANeutrophils (Bld) [#/Vol]5.3 10*3/uLNormal1.8-7.7FSouthwest General Health CenterComment on above:Performed By: #### CBC, BMP #### [facility] [address] [place] [address] USANeutrophils/100 WBC (Bld)61.0 %Normal.[facility] Hospital - ColumbusComment on above:Performed By: #### CBC, BMP #### [facility] [address] [place] [address] USANRBC%0.2 /100{WBC}Normal0-0.5FSouthwest General Health CenterComment on above:Performed By: #### CBC, BMP #### [facility] [address] [place] [address] USAPlatelet mean volume (Bld) [Entitic vol]8.2 fLNormal 6.6-10.1FSouthwest General Health CenterComment on above:Performed By: #### CBC, BMP #### [facility] [address] [place] [address] USAPlatelets (Bld) [#/Vol]210 10*3/cQEvztmh069-730FsbcsfxesSelect Medical Specialty Hospital - ColumbusComment on above:Performed By: #### CBC, BMP #### [facility] [address] [place] [address] USARBC (Bld) [#/Vol]4.55 10*6/uLNormal3.90-5.60[facility] Hospital - ColumbusComment on above:Performed By: #### CBC, BMP #### [facility] [address] [place] [address] USAWBC (Bld) [#/Vol]8.6 10*3/uLNormal4.1-10.5FSouthwest General Health CenterComment on above:Performed By: #### CBC, BMP #### [facility] [address] [place] [address] USACT head/brain wo [facility]on 60-36-1502HD head/brain wo [facility] [place] [address] [place] Scan Report Signed Patient: Taras Hayward MR#: [id number] 56 : 1970 Acct:[id number] Age/Sex: 52 / M ADM Date: 01/03/23 Loc: Room: [address] [place] [address] Type: ADM IN Attending Dr: Srinivas Patricia [...] evidence of stroke. A right parietal approach SAFETY DIRECTOR shunt is once again identified unchanged in [...] ABNORMALITY. Impression dictated by: Srinivas Moore Jr., DFaridaOFarida01/12/2023 3:01 PM Dictation Location: [place] [address] Transcribed By: [facility] 01/12/23 1501 Dictated By: Srinivas Moore Jr, DO 01/12/23 1456 Signed By: 01/12/23 1501Tr[facility]ull Memorial HospitalUS venous duplex LE [facility] 49-16-4393GJ venous duplex LE [facility] [address] [place] [address] [place] [address] Ultrasound Report Signed Patient: Taras Hayward MR#: [id number] 56 : 1970 Acct:[id number] Age/Sex: 52 / M ADM Date: 01/03/23 Loc: Room: [address] [place] [address] Type: ADM IN Attending Dr: Srinivas Patricia [...] Gerardo Miranda M.D.01/12/2023 10:53 AM Dictation Location: [place] [address] Tech: Caitlyn Ortiz Transcribed By: ADELA 01/12/23 105 Dictated By: Gerardo Miranda MD 01/12/23 105 Signed By: 01/12/23 105NoGalion HospitalDipstick and Microscopicon 69-50-4331Nliryaovov (U)CloudyCritically abnormalCleAvita Health SystemComment on above:Order Comment: Name Collection Type:: Clean-Voided MidstreamPerformed By: #### CUU, ADDONUAPLUS ####[place] [address] [facility], [id number] USABacteria,Urine4+HighNone SeenSelect Medical Specialty Hospital - ColumbusComment on above:Order Comment: Name Collection Type:: Clean-Voided MidstreamPerformed By: #### CUU, ADDONUAPLUS ####[place] [address] [facility], [id number] USABilirubin,UrineNegativeNormal NegativeSelect Medical Specialty Hospital - ColumbusComment on above:Order Comment: Name Collection Type:: Clean-Voided MidstreamPerformed By: #### CUU, ADDONUAPLUS ####[place] [address] [facility], [id number] USAColor (U)Dark YellowCritically abnormalYelOhioHealth Berger HospitalComment on above:Order Comment: Name Collection Type:: Clean-Voided MidstreamPerformed By: #### CUU, ADDONUAPLUS ####[facility] [facility], [place] USAGlucose Ql (U)NormalNormalNormalSelect Medical Specialty Hospital - ColumbusComment on above:Order Comment: Name Collection Type:: Clean- Voided MidstreamPerformed By: #### CUU, ADDONUAPLUS ####[address] [address] USAHyaline Casts,Akesz5-5Nzhjoq2-8 [facility] Hospital - ColumbusComment on above:Order Comment: Name Collection Type:: Clean-Voided MidstreamResult Comment: PERFORMED BY: [facility] [address] [place] [place] [id number] PATHOLOGIST ENROLLMENT SERVICES VICE PRESIDENT DEVANG LEMONS M.D.Performed By: #### CUU, ADDONUAPLUS ####[address] USAKetones Ql (U)1+HighNegative [facility] Hospital - ColumbusComment on above:Order Comment: Name Collection Type:: Clean-Voided MidstreamPerformed By: #### CUU, ADDONUAPLUS ####[address] [address] USALeukocyte esterase Test strip Ql (U)4+HighNegativeSelect Medical Specialty Hospital - ColumbusComment on above:Order Comment: Name Collection Type:: Clean-Voided MidstreamPerformed By: #### CUU, ADDONUAPLUS ####[address] [address] USANitrite,UrineNegativeNormalNegativeSelect Medical Specialty Hospital - ColumbusComment on above:Order Comment: Name Collection Type:: Clean- Voided MidstreamPerformed By: #### CUU, ADDONUAPLUS ####[address] USAOccult Blood,UrineTraceHigh NegativeSelect Medical Specialty Hospital - ColumbusComment on above:Order Comment: Name Collection Type:: Clean-Voided MidstreamResult Comment: PERFORMED BY: [facility] [address] [place] [address] PATHOLOGIST ENROLLMENT SERVICES VICE PRESIDENT DEVANG LEMONS M.D.Performed By: #### CUU, ADDONUAPLUS ####[address]GR[address], [place] USApH (U)6.0 [pH]Normal5.0-9.0 [facility] - ColumbusComment on above:Order Comment: Name Collection Type:: Clean-Voided MidstreamPerformed By: #### CUU, ADDONUAPLUS ####[address] USAProtein,UrineTraceHigh NegativeSelect Medical Specialty Hospital - ColumbusComment on above:Order Comment: Name Collection Type:: Clean-Voided MidstreamPerformed By: #### CUU, ADDONUAPLUS ####[address] [facility] RBC,Hvyno19-00Bitz0-5YhhfyyjgtSouthwest General Health CenterComment on above:Order Comment: Name Collection Type:: Clean-Voided MidstreamPerformed By: #### CUU, ADDONUAPLUS ####[address] USASpecificy [place],Urine1.707Urvmou6.001-1.030Select Medical Specialty Hospital - ColumbusComment on above:Order Comment: Name Collection Type:: Clean-Voided MidstreamPerformed By: #### CUU, ADDONUAPLUS ####[address] OO[address] USASquamous Epithelial Cell,UrineNone Seen Normal0-2FSouthwest General Health CenterComment on above:Order Comment: Name Collection Type:: Clean-Voided MidstreamPerformed By: #### CUU, ADDONUAPLUS ####[address] [place] Urobilinogen,UrineNormalNormalNormalSelect Medical Specialty Hospital - ColumbusComment on above:Order Comment: Name Collection Type:: Clean-Voided MidstreamPerformed By: #### CUU, ADDONUAPLUS ####[address] USAWBC,Pzhsk69-242Goqk8-8KfzmwhzloSouthwest General Health CenterComment on above:Order Comment: Name Collection Type:: Clean-Voided MidstreamPerformed By: #### NICK KING ####[facility] [address] [id number] USAKessler Institute For Rehabilitation Cultureon 01-54-2780Aimtqrti identified Cx Nom (U)ORGANISM: Klebsiella pneumoniae (O:KLEPNE) [place] Count >100,000 Aerobic SAI Charge (NMIC56) SUSCEPTIBILITY [...] <4 Tigecycline S <2 Tobramycin S <2 Trimethoprim/Sulfamethoxazole S <0.5 S = SUSCEPTIBLE I = [...] RESISTANT TO ALL B-LACTAM DRUGS. PERFORMED BY: [facility] [address] [place] [address] PATHOLOGIST ENROLLMENT SERVICES VICE PRESIDENT DEVANG LEMONS M.D.Trumbull Memorial HospitalComment on above: Performed By: #### LEELA KINGPLUS ####[facility] [address] [place], [place] USABasic Metabolic Panelon 81-74-7429Fradj gap [Moles/Vol]9.9 mmol/LNormal6.0-15.0Select [facility] Hospital - ColumbusComment on above:Performed By: #### BMP, CBC #### [facility] [address] [place] [address] USACalcium [Mass/Vol]8.9 mg/dLNormal8.6-10.3FSouthwest General Health CenterComment on above:Performed By: #### BMP, CBC #### [facility] [address] [place] [address] USAChloride [Moles/Vol]103 mmol/IBcvgab90-796AykqxcrttSelect Medical Specialty Hospital - ColumbusComment on above:Performed By: #### BMP, CBC #### [facility] [address] [place] [address] USACO2 [Moles/Vol]29.9 mmol/JRnocnt55.0-31.0Select [facility] Hospital - ColumbusComment on above:Performed By: #### BMP, CBC #### [facility] [address] [place] [id number] USACreatinine [Mass/Vol]0.75 mg/dLNormal0.70-1.30Select [facility] Hospital - ColumbusComment on above:Performed By: #### BMP, CBC #### [facility] [address] [place] [address] USACreatinine Clr Calc Ftswpceb824.10NormalSelect Medical Specialty Hospital - ColumbusComment on above:Result Comment: PERFORMED BY: [place] [address] PATHOLOGIST ENROLLMENT SERVICES VICE PRESIDENT DEVANG LEMONS M.D.Performed By: #### BMP, CBC #### [facility] [address] [place] [address] USAGFR/1.73 sq M.predicted MDRD (S/P/Bld) [Vol rate/Area] mL/min/{1.73_m2}NormalFirelands Regional Medical CenterComment on above: Performed By: #### BMP, CBC #### [facility] [address] [place] [id number] USAGlucose [Mass/Vol]100 mg/iDXdvnpc87-219WqgfxialzSelect Medical Specialty Hospital - ColumbusComment on above:Result Comment: Random Glucose Reference Range is dependent on time and content of last meal. Glucose of more than 200 mg/dL in a nonstressed, ambulatory subject supports the diagnosis of Diabetes Mellitus. ADA recommended reference rangePerformed By: #### BMP, CBC #### [facility] [address] [place] [address] USAPotassium [Moles/Vol]3.8 mmol/LNormal3.5-5.1FSouthwest General Health CenterComment on above:Performed By: #### BMP, CBC #### [facility] [address] [place] [address] USASodium [Moles/Vol]139 mmol/CPscizb697-238IzdpwibxrSelect Medical Specialty Hospital - ColumbusComment on above:Performed By: #### BMP, CBC #### [facility] [address] [place] [address] USAUrea nitrogen [Mass/Vol]12 mg/dLNormal7-25Select [facility]ty Hospital - ColumbusComment on above:Performed By: #### BMP, CBC #### [facility] [address] [place] [address] USABasophils Auto (Bld) [#/Vol]Ordered By: Tisha Cardona on 65-65-6798Iufywtfsk (Bld) [#/Vol]0.0 10*3/uL0.0-0.2FSouthwest General Health CenterBasophils/100 WBC Auto (Bld)Ordered By: Tisha Cardona on 01-09-2023 Basophils/100 WBC (Bld)0.3 %.Select [facility] Hospital - ColumbusCT head/brain wo conon 28-75-6283OG head/brain wo [facility] [address] [place] [address] CT Scan Report Signed Patient: Taras Hayward MR#: [id number] 56 : 1970 Acct:[id number] Age/Sex: 52 / M ADM Date: 01/03/23 Loc: Room: 1L7134-0 Type: ADM IN Attending Dr: Srinivas Patricia [...] Harsh Rodriguez M.D.01/09/2023 11:00 AM Dictation Location: [place] [address] Transcribed By: [facility] 01/09/23 1100 Dictated By: Harsh Rodriguez II, MD 01/09/23 1057 Signed By: 01/09/23 1100NoGalion HospitalCalcium [Mass/volume] in Serum or PlasmaOrdered By: Tisha Cardona on 01-40-6017Jinvsrv [Mass/Vol]8.9 mg/dL8.6-10.3FSouthwest General Health CenterCarbon dioxide, total [Moles/volume] in Serum or PlasmaOrdered By: Tisha Cardona on 68-95-9018KI1 [Moles/Vol]29.9 mmol/L21.0-31.0Select [facility] Hospital - ColumbusChloride [Moles/volume] in Serum or PlasmaOrdered By: Tisha Cardona on 01-09-2023 Chloride [Moles/Vol]103 mmol/U53-893YdzgumipoSelect Medical Specialty Hospital - ColumbusComplete Blood Count Auto Diffon 14-02-3051Bpghmpfkl (Bld) [#/Vol]0.0 10*3/uLNormal 0.0-0.2FSouthwest General Health CenterComment on above:Result Comment: PERFORMED BY: [place] [address] PATHOLOGIST ENROLLMENT SERVICES VICE PRESIDENT DEVANG LEMONS M.D.Performed By: #### BMP, CBC #### [facility] [address] [place] [address] USABasophils/100 WBC (Bld)0.3 %Normal.Select [facility]ty Hospital - ColumbusComment on above:Performed By: #### BMP, CBC #### [facility] [address] [place] [address] USAEosinophils (Bld) [#/Vol]0.1 10*3/uLNormal0.0-0.45 [facility] Hospital - ColumbusComment on above:Performed By: #### BMP, CBC #### [facility] [address] [place] [address] USAEosinophils/100 WBC (Bld)1.6 %Normal.Select Medical Specialty Hospital - ColumbusComment on above:Performed By: #### BMP, CBC #### [facility] [address] [place] [address] USAErythrocyte distribution width (RBC) [Ratio]14.3 %Normal 12.0-14.8Select [facility] Specialty Hospital - ColumbusComment on above:Performed By: #### BMP, CBC #### [facility] [address] [place] [address] USAHematocrit (Bld) [Volume fraction]37.8 %Low38.8-50.0 [facility] Hospital - ColumbusComment on above:Performed By: #### BMP, CBC #### [facility] [address] [place] [address] USAHemoglobin (Bld) [Mass/Vol]12.2 g/dLLow13.0-17.0[facility] Hospital - ColumbusComment on above:Performed By: #### BMP, CBC #### [facility] [address] [place] [address] USALymphocytes (Bld) [#/Vol]2.3 10*3/uLNormal1.00-4.8 [facility] Hospital - ColumbusComment on above:Performed By: #### BMP, CBC #### [facility] [address] [place] [address] USALymphocytes/100 WBC (Bld)36.0 %Normal.[facility] Hospital - ColumbusComment on above:Performed By: #### BMP, CBC #### [place] [address] USAMCH (RBC) [Entitic mass]27.4 pgLow27.5-35.2FSouthwest General Health CenterComment on above:Performed By: #### BMP, CBC #### [place] [address] USAMCV (RBC) [Entitic vol]84.9 nMGapurp33.5-101Select [facility] Hospital - ColumbusComment on above:Performed By: #### BMP, CBC #### [facility] [address] [place] [address] USAMean Corpuscular HGB Conc32.3 g/dLLow32.5-35.6FSouthwest General Health CenterComment on above:Performed By: #### BMP, CBC #### [facility] [address] [place] [address] USAMonocytes (Bld) [#/Vol]0.5 10*3/uLNormal0.0-0.8Select [facility] Hospital - ColumbusComment on above:Performed By: #### BMP, CBC #### [facility] [address] [place] [address] USAMonocytes/100 WBC (Bld)7.3 %Normal.Select [facility] Hospital - ColumbusComment on above:Performed By: #### BMP, CBC #### [facility] [address] [place] [address] USANeutrophils (Bld) [#/Vol]3.5 10*3/uLNormal1.8-7.7FSouthwest General Health CenterComment on above:Performed By: #### BMP, CBC #### [facility] [address] [place] [address] USANeutrophils/100 WBC (Bld)54.8 %Normal.[facility] Hospital - ColumbusComment on above:Performed By: #### BMP, CBC #### [place] [address] USANRBC%0.2 /100{WBC}Normal0-0.5FSouthwest General Health CenterComment on above:Performed By: #### BMP, CBC #### [facility] [address] [place] [address] USAPlatelet mean volume (Bld) [Entitic vol]8.8 fLNormal 6.6-10.1FSouthwest General Health CenterComment on above:Performed By: #### BMP, CBC #### [place] [address] USAPlatelets (Bld) [#/Vol]185 10*3/lCWtblmr707-774ArmlalfbfSelect Medical Specialty Hospital - ColumbusComment on above:Performed By: #### BMP, CBC #### [facility] [address] [place] [address] USARBC (Bld) [#/Vol]4.46 10*6/uLNormal3.90-5.60[facility] Hospital - ColumbusComment on above:Performed By: #### BMP, CBC #### [place] [address] USAWBC (Bld) [#/Vol]6.4 10*3/uLNormal4.1-10.5FSouthwest General Health CenterComment on above:Performed By: #### BMP, CBC #### [address] [place] [address] USACreatinine [Mass/volume] in Serum or PlasmaOrdered By: Tisha Cardona on 79-26-8739Ekdbtwpbow [Mass/Vol]0.75 mg/dL0.70-1.30[facility] Hospital - ColumbusEosinophils Auto (Bld) [#/Vol]Ordered By: Tisha Cardona on 02-90-6576Bwgkdejezty (Bld) [#/Vol]0.1 10*3/uL0.0-0.45[facility] Hospital - ColumbusEosinophils/100 WBC Auto (Bld)Ordered By: Tisha Cardona on 34-49-1898Dqizzyhicns/100 WBC (Bld)1.6 %.[facility] Hospital - ColumbusErythrocyte distribution width Auto (RBC) [Ratio]Ordered By: Tisha Cardona on 30-28-6862Rjqcntzbyhz distribution width (RBC) [Ratio]14.3 % 12.0-14.8[facility] Hospital - ColumbusGlucose [Mass/volume] in Serum or PlasmaOrdered By: Tisha Cardona on 01-72-8442Ffvpymm [Mass/Vol]100 mg/dL 70-100Select [facility] Hospital - ColumbusComment on above:ADA recommended reference rangeRandom Glucose Reference Range is dependent on time and content of last meal. Glucose of more than 200 mg/dL in a nonstressed, ambulatory subject supports the diagnosisof Diabetes Mellitus.Hematocrit Auto (Bld) [Volume fraction]Ordered By: Tisha Cardona on 02-97-2233Gjctuhtufl (Bld) [Volume fraction]37.8 %38.8-50.0[facility] Hospital - ColumbusHemoglobin [Mass/volume] in BloodOrdered By: Tisha Cardona on 04-36-0194Juqzkosugm (Bld) [Mass/Vol]12.2 g/dL13.0-17.0[facility] Hospital - ColumbusLeukocytes [#/volume] corrected for nucleated erythrocytes in Blood by Automated coun Ordered By: Tisha Cardona on 60-59-6624UTZ corrected for nucl RBC Auto (Bld) [#/Vol]6.4 10*3/uL4.1-10.5FSouthwest General Health CenterLymphocytes Auto (Bld) [#/Vol]Ordered By: Tisha Cardona on 63-80-6035Mxljxobghdg (Bld) [#/Vol] 2.3 10*3/uL1.00-4.8[facility] Hospital - ColumbusLymphocytes/100 WBC Auto (Bld)Ordered By: Tisha Cardona on 16-22-1455Qkkexntjdtw/100 WBC (Bld)36.0 %. [facility] Hospital - ColumbusMCH Auto (RBC) [Entitic mass]Ordered By: Tisha Cardona on 02-10-1700NNC (RBC) [Entitic mass]27.4 pg27.5-35.2FSouthwest General Health CenterMCHC Auto (RBC) [Mass/Vol]Ordered By: Tisha Cardona on 12-83-5615LCJF (RBC) [Mass/Vol]32.3 g/dL32.5-35.6FSouthwest General Health CenterMCV Auto (RBC) [Entitic vol]Ordered By: Tisha Cardona on 47-71-4661PMS (RBC) [Entitic vol]84.9 fL83.5-101Select [facility] Hospital - ColumbusMonocytes Auto (Bld) [#/Vol]Ordered By: Tisha Cardona on 77-30-2295Kmoibctga (Bld) [#/Vol]0.5 10*3/uL0.0-0.8[facility] Hospital - ColumbusMonocytes/100 WBC Auto (Bld)Ordered By: Tisha Cardona on 68-71-7739Vlkmusuuj/100 WBC (Bld)7.3 %. [facility] Hospital - ColumbusNeutrophils Auto (Bld) [#/Vol]Ordered By: Tisha Cardona on 16-51-5908Auyiruaomsi (Bld) [#/Vol]3.5 10*3/uL1.8-7.7FSouthwest General Health CenterNeutrophils/100 WBC Auto (Bld)Ordered By: Tisha Cardona on 04-16-1014Flpwrzdhxqv/100 WBC (Bld)54.8 %.[facility] Hospital - ColumbusNo Panel InformationOrdered By: Tisha Cardona on 01-09-2023 Estimated GFR (CKD-EPI)> 60.0 mL/MinSelect Medical Specialty Hospital - ColumbusPharmacy Creatinine Clearance (Txbo899.10Select [facility]ty Hospital - ColumbusNucleated erythrocytes [Presence] in Blood by Automated countOrdered By: Tisha Cardona on 64-49-9793Kpdsbdhrb RBC Auto Ql (Bld)0.2 /100{WBC}0-0.5FSouthwest General Health CenterPlatelet mean volume Auto (Bld) [Entitic vol]Ordered By: Tisha Cardona on 58-73-4097Dekabfpx mean volume (Bld) [Entitic vol]8.8 fL6.6-10.1 [facility] Hospital - ColumbusPlatelets Auto (Bld) [#/Vol]Ordered By: Tisha Cardona on 03-51-8365Irrsqrubj (Bld) [#/Vol]185 10*3/jQ461-266QftlwiihsSelect Medical Specialty Hospital - ColumbusPotassium [Moles/volume] in Serum or PlasmaOrdered By: Tisha Cardona on 42-73-7591Iakrnxobc [Moles/Vol]3.8 mmol/L3.5-5.1FSouthwest General Health CenterRBC Auto (Bld) [#/Vol]Ordered By: Tisha Cardona on 45-06-4268OWW (Bld) [#/Vol]4.46 10*6/uL3.90-5.60Zanesville City Hospitalerum or plasma anion gap determinationOrdered By: Tisha Cardona on 79-27-5591Tcsbn gap [Moles/Vol]9.9 mmol/L6.0-15.0Zanesville City Hospitalodium [Moles/volume] in Serum or PlasmaOrdered By: Tisha Cardona on 70-14-8445Eghaul [Moles/Vol]139 mmol/S414-294HgwpmbybbSelect Medical Specialty Hospital - Columbus Urea nitrogen [Mass/volume] in Serum or PlasmaOrdered By: Tisha Cardona on 30-75-3108Ssyf nitrogen [Mass/Vol]12 mg/dL7-25[facility] WBC Auto (Bld) [#/Vol]Ordered By: Tisha Cardona on 04-61-3517UOV (Bld) [#/Vol]6.4 10*3/uL4.1-10.5FSouthwest General Health CenterCT head/brain wo con on 51-32-6048XX head/brain wo [facility] [address] [place] [address] CT Scan Report Signed Patient: Taras Hayward MR#: [id number] 56 : 1970 Acct:[id number] Age/Sex: 52 / M ADM Date: 01/03/23 Loc: Room: 7C1952-1 Type: ADM IN Attending Dr: Srinivas Patricia [...] Harsh Rodriguez M.D.01/08/2023 3:35 PM Dictation Location: [place] [address] Transcribed By: ADELA 01/08/23 1535 Dictated By: Harsh Rodriguez II, MD 01/08/23 1528 Signed By: 01/08/23 1535NormMercy Health West HospitalAlanine aminotransferase [Enzymatic activity/volume] in Serum or PlasmaOrdered By: Srinivas Patricia on 83-15-3988ZGV [Catalytic activity/Vol]18 U/L7-52[facility] Hospital - ColumbusAlbumin [Mass/volume] in Serum or Plasma by Bromocresol green (BCG) dye binding methoOrdered By: Srinivas Patricia on 27-10-4745Keyqibf BCG dye [Mass/Vol]3.4 g/dL3.5-5.7FSouthwest General Health CenterAlkaline phosphatase [Enzymatic activity/volume] in Serum or PlasmaOrdered By: Srinivas Patricia on 39-14-8218WFB [Catalytic activity/Vol]64 U/O14-693MjhqhkpkuSelect Medical Specialty Hospital - ColumbusAspartate aminotransferase [Enzymatic activity/volume] in Serum or PlasmaOrdered By: Srinivas Patricia on 10-88-0315IOT [Catalytic activity/Vol]19 U/W34-85SxkfvttgmSelect Medical Specialty Hospital - ColumbusBilirubin.total [Mass/volume] in Serum or PlasmaOrdered By: Srinivas Patricia on 31-29-8321Zkmhtgztx [Mass/Vol]0.6 mg/dL0.3-1.0[facility] - ColumbusComplete Blood Count Auto Diffon 91-82-0653Iswcxpmwb (Bld) [#/Vol]0.0 10*3/uLNormal0.0-0.2FSouthwest General Health CenterComment on above:Result Comment: PERFORMED BY: [facility] [address] [place] [address] PATHOLOGIST ENROLLMENT SERVICES VICE PRESIDENT DEVANG LEMONS M.D.Performed By: #### CMP, PAB, CBC ####[place] [address] USABasophils/100 WBC (Bld)0.4 %Normal. [facility] Hospital - ColumbusComment on above:Performed By: #### CMP, PAB, CBC ####[place] [address] [place] Eosinophils (Bld) [#/Vol]0.1 10*3/uLNormal0.0-0.45[facility] Hospital - ColumbusComment on above:Performed By: #### CMP, PAB, CBC ####[place] [address] USAEosinophils/100 WBC (Bld)1.6 % Normal.[facility] Hospital - ColumbusComasc[facility] on above:Performed By: #### CMP, PAB, CBC ####[place] [address] USAErythrocyte distribution width (RBC) [Ratio]14.3 %Fdncpk99.0-14.8[facility] Hospital - ColumbusComascension providence [facility] hospital on above:Performed By: #### CMP, PAB, CBC ####[place] [address] [place] Hematocrit (Bld) [Volume fraction]36.7 %Low38.8-50.0[facility] Hospital - ColumbusComascension prov[facility] on above:Performed By: #### CMP, PAB, CBC ####[place] [address] USAHemoglobin (Bld) [Mass/Vol] 12.0 g/dLLow13.0-17.0[facility] - ColumbusComascension prov[facility] hospital on above:Performed By: #### CMP, PAB, CBC ####[place] [address] USALymphocytes (Bld) [#/Vol]2.8 10*3/uLNormal1.00-4.8 [facility] - ColumbusComment on above:Performed By: #### CMP, PAB, CBC ####[place] [id number] [place] Lymphocytes/100 WBC (Bld)33.7 %Normal.[facility] Hospital - ColumbusComment on above:Performed By: #### CMP, PAB, CBC ####[place] [id number] [facility] OK[facility] CITYH (RBC) [Entitic mass]27.7 pgNormal 27.5-35.2FSouthwest General Health CenterComment on above:Performed By: #### CMP, PAB, CBC ####[address]V (RBC) [Entitic vol]85.1 yEJiymtc65.5-101[facility] - ColumbusComment on above:Performed By: #### CMP, PAB, CBC ####[place] [address] USAMean Corpuscular HGB Conc32.6 g/mZMbtplz64.5-35.6FSouthwest General Health CenterComment on above:Performed By: #### CMP, PAB, CBC ####[place] [address] USAMonocytes (Bld) [#/Vol]0.8 10*3/uLNormal0.0-0.8 [facility] - ColumbusComment on above:Performed By: #### CMP, PAB, CBC ####[place] [address] [place] Monocytes/100 WBC (Bld)9.3 %Normal.[facility] Hospital - ColumbusComment on above:Performed By: #### CMP, PAB, CBC ####[place] [address] USANeutrophils (Bld) [#/Vol]4.5 10*3/uLNormal 1.8-7.7FSouthwest General Health CenterComment on above:Performed By: #### CMP, PAB, CBC ####[place] [address] USANeutrophils/100 WBC (Bld)55.0 %Normal.[facility] Comment on above:Performed By: #### CMP, PAB, CBC ####[address] [address] USANRBC%0.1 /100{WBC}Normal0-0.5 [facility] - ColumbusComment on above:Performed By: #### CMP, PAB, CBC ####[address] [address] [place] Platelet mean volume (Bld) [Entitic vol]8.3 fLNormal6.6-10.1FSouthwest General Health CenterComment on above:Performed By: #### CMP, PAB, CBC ####[address] [address] USAPlatelets (Bld) [#/Vol]259 10*3/uAOnkted087-271GwblpzfsfSelect Medical Specialty Hospital - ColumbusComment on above:Performed By: #### CMP, PAB, CBC ####[address] [address] USARBC (Bld) [#/Vol]4.32 10*6/uLNormal3.90-5.60 [facility] - ColumbusComment on above:Performed By: #### CMP, PAB, CBC ####[address] [address] USAWBC (Bld) [#/Vol]8.2 10*3/uLNormal4.1-10.5FSouthwest General Health CenterComment on above:Performed By: #### CMP, PAB, CBC ####[address] [address] USAComprehensive Metabolic Panelon 01-04-2023 Albumin [Mass/Vol]3.4 g/dLLow3.5-5.7FSouthwest General Health CenterComment on above:Performed By: #### CMP, PAB, CBC ####[address] [address] USAAlbumin/Globulin [Mass ratio]1.0 {ratio}Normal [facility] - ColumbusComment on above:Performed By: #### CMP, PAB, CBC ####[address] [address] USAALP [Catalytic activity/Vol]64 U/UXxrrxy39-153GgnizvlnwSelect Medical Specialty Hospital - Columbus Comment on above:Performed By: #### CMP, PAB, CBC ####[address] [address] USAALT [Catalytic activity/Vol]18 U/L Normal7-52[facility] - ColumbusComment on above:Performed By: #### CMP, PAB, CBC ####[address] [address] USAAnion gap [Moles/Vol]11.4 mmol/LNormal6.0-15.0[facility] - ColumbusComment on above:Performed By: #### PAM, PAB, CBC ####[address] [address] USAAST [Catalytic activity/Vol]19 U/SGgpnpu92-20VibqvywkpSelect Medical Specialty Hospital - ColumbusComment on above: Performed By: #### CMP, PAB, CBC ####[address] [address] USABilirubin [Mass/Vol]0.6 mg/dLNormal0.3-1.0[facility] - ColumbusComment on above:Performed By: #### PAM, PAB, CBC ####[address] [address] USACalcium [Mass/Vol]8.7 mg/dLNormal8.6-10.3FSouthwest General Health CenterComment on above:Performed By: #### CMP, PAB, CBC ####[address] [address] USAChloride [Moles/Vol]103 mmol/ZGgcjss58-500 [facility] - ColumbusComment on above:Performed By: #### CMP, PAB, CBC ####[address] [address] USACO2 [Moles/Vol]27.3 mmol/FVluieq73.0-31.0[facility] - ColumbusComment on above:Performed By: #### CMP, PAB, CBC ####[address] [place] [address] USACreatinine [Mass/Vol]0.89 mg/dLNormal 0.70-1.30[facility] - ColumbusComment on above:Performed By: #### PAM PAB, CBC ####[place] [address] [place] [id number] USACreatinine Clr Calc Kbewycie129.03NoGalion HospitalComment on above:Performed By: #### PAM PAB, CBC ####[place] [id number] USAGFR/1.73 sq M.predicted MDRD (S/P/Bld) [Vol rate/Area]mL/min/{1.73_m2}[facility] Comment on above:Performed By: #### PAM PAB, CBC ####[place] [address] USAGlobulin (S) [Mass/Vol]3.4 g/dLNormal [facility] - ColumbusComment on above:Performed By: #### PMA PAB, CBC ####[place] [id number] [place] Glucose [Mass/Vol]101 mg/kZAcvq99-488JzfnmtgqsSelect Medical Specialty Hospital - ColumbusComment on above:Result Comment: Random Glucose Reference Range is dependent on time and content of last meal. Glucose of more than 200 mg/dL in a nonstressed, ambulatory subject supports the diagnosis of Diabetes Mellitus. ADA recommended reference rangePerformed By: #### PAM PAB, CBC ####[place] [id number] USAPotassium [Moles/Vol] 3.7 mmol/LNormal3.5-5.1FSouthwest General Health CenterComment on above: Performed By: #### PAM PAB, CBC ####[place] [address] USAProtein [Mass/Vol]6.8 g/dLNormal6.4-8.9[facility] - ColumbusComment on above:Performed By: #### PAM PAB, CBC ####[facility] [address] [place] [address] USASodium [Moles/Vol]138 mmol/MGmetzx465-751UavukvuegSelect Medical Specialty Hospital - ColumbusComment on above:Performed By: #### TAHMINA OROZCO, CBC ####[facility] [address] [place] [address] USAUrea nitrogen [Mass/Vol]9 mg/dLNormal01-02 [facility] - ColumbusComment on above:Performed By: #### TAHMINA OROZCO, CBC ####[facility] [address] [place] [address] USAECG 12 lead ECGon 39-10-3828AYG 12 lead ECGPOMERENE [facility] [address] [place] [address] Electrocardiograph Report Signed Patient: Taras Hayward MR#: [id number] 56 : 1970 Acct:[id number] Age/Sex: 52 / M ADM Date: 01/03/23 Loc: Room: [address] [place] [address] Type: ADM IN Attending Dr: Srinivas Patricia [...] No previous ECGs available Confirmed by CINDY ACLALA [facility] HOSPITALROSY ([id number]) on 01/04/2023 11:58:44 AM Referred By: Electronically Signed By:ROSY CALDWELL MD [facility] Transcribed By: MUS Signed By Bonifacio Caldwell MD 01/04/23 1158Trumbull Memorial HospitalGlobulin Calc (S) [Mass/Vol] Ordered By: Srinivas Patricia on 19-38-8547Naemhhhm (S) [Mass/Vol]3.4 g/dLSelect Medical Specialty Hospital - ColumbusPrealbuminon 52-62-1370Ojjwnkysgc [Mass/Vol]12.5 mg/dLLow 17.0-34.0Select [facility] Hospital - ColumbusComment on above:Result Comment: PERFORMED BY: [facility] [address] [place] [address] PATHOLOGIST ENROLLMENT SERVICES VICE PRESIDENT DEVANG LEMONS M.D.Performed By: #### CMP, PAB, CBC ####[facility] [address] [place] [address] USAPrealbumin [Mass/volume] in Serum or PlasmaOrdered By: Srinivas Patricia on 31-30-3213Ittmfjdfjl [Mass/Vol]12.5 mg/dL 17.0-34.0[facility] Hospital - ColumbusProtein [Mass/volume] in Serum or PlasmaOrdered By: Srinivas Patricia on 88-17-3174Vjqzjaj [Mass/Vol]6.8 g/dL6.4-8.9 [facility] Hospitalerum or plasma albumin/globulin mass ratio Ordered By: Srinivas Patricia on 18-98-0311Ioeeuaw/Globulin [Mass ratio]1.0 {ratio} [facility] - ColumbusCovid-19 PCR (CVDTBH)on 57-00-5871XHMW-CoV-2 (COVID-19) RNA JOHN+probe Ql (Unsp spec)Not detectedNormalNOT DETECTEDThe Wood County HospitalComment on above:Result Comment: When diagnostic testing is negative, the [...] for this test is supported by the Production Control Specialist of Health and Human Service's declaration that circumstances exist to justify the emergency use of in vitro diagnostics for the detection and/or diagnosis of the virus that causes COVID-19. This EUA will remain in effect for the duration of the COVID-19 declaration justifying emergency of IVDs, unless it is terminated or revoked by the FDA (after which the test may no longer be used).Performed By: #### CVDTBH #### [facility] [address] [place] [address] Dr. Lissa Diaz AND B AGon 92-88-2592GODQSOWWJMOZMSamaritan Hospital on above:Result Comment: Negative for Flu A protein angiten. Infection due to Flu A cannot be ruled out. FluA angiten in the sample may be below the detection limit of the test.Performed By: #### INFLUAB #### [facility] [address] [place] [address] Dr. Lissa NoelUBNEGSamaritan Hospital on above: Result Comment: Negative for Flu B protein antigen. Infection due to Flu B cannot be ruled out. FluB antigen in the sample may be below the detection limit of the test.Performed By: #### INFLUAB #### [facility] [address] [place] [address] Dr. Lissa Diaz AGNegativeNormalNEGATIVE SEE COMMENTThe [facility] on above:Performed By: #### INFLUAB #### [facility] [address] [place] [address] Dr. Lissa Shirley AGNegativeNormalNEGATIVE SEE COMMENTThe [facility] on above:Performed By: #### INFLUAB #### [facility] [address] [place] [address] Dr. Lissa Arroyo metabolic 2000 panelon 87-47-6271Tibvn gap [Moles/Vol]10 mmol/LNormal9-18[facility] on above:Order Comment: Specimen Type: BLOOD SPECIMENOrdering Facility: [facility] Address:[address] [place] [phone] By: #### 87026-4 ####[facility] LABCLIA [id number] [facility] [place]16[place] [address] [place] OF AMERICACalcium [Mass/Vol]8.8 mg/dLNormal 8.5-10.2CMercy Health St[facility] on above:Order Comment: Specimen Type: BLOOD SPECIMENOrdering Facility: [facility] Address:[address] [place], [place] [address]Performed By: #### 35320-3 ####[facility] LABCLIA [id number] [place] [address] [place] AMERICAChloride [Moles/Vol]104 mmol/KKlgqjl48-851 [facility] on above:Order Comment: Specimen Type: BLOOD SPECIMENOrdering Facility: [facility] Address:[address] [place], [place] [address]Performed By: #### 43717-6 ####[facility] LABCLIA [id number] [place] [address] [place] AMERICACO2 [Moles/Vol]24 mmol/NUnsakx02-31HgbmnkzpwOhiohealth Berger Hospital Comment on above:Order Comment: Specimen Type: BLOOD SPECIMENOrdering Facility: [facility] Address:[address] [place] [address] Performed By: #### 08100-0 ####[facility] LABCLIA [id number] [place] [address] [place] ROSMERY Creatinine [Mass/Vol]0.94 mg/dLNormal0.73-1.22[facility] on above:Order Comment: Specimen Type: BLOOD SPECIMENOrdering Facility: [facility] Address:[address] [place] [address] Performed By: #### 67645-3 ####[facility] LABIA [id number] [place] [address] [place] ROSMERY ESTIMATED GLOMERULAR FILTRATION RATE99 mL/min/1.73m???Normal>=60[facility] on above:Order Comment: Specimen Type: BLOOD SPECIMENOrdering Facility: [facility] Address:[address] [place], [place] [address]Result Comment: Estimated Glomerular Filtration Rate (eGFR) is calculated using the 2020 CKD-EPI creatinine equation. This equation utilizes serum creatinine, sex, and age as parameters. The creatinine assay has traceable calibration to isotope dilution-mass spectrometry. Refer to KDIGO guidelines f or clinical interpretation. In patients with unstable renal function, e.g. those with acute kidney injury, the eGFR may not accurately reflect actual GFR. Performed By: #### 89919-2 ####[facility] LABCLIA [id number] [place] [address] [place] Glucose [Mass/Vol]96 mg/rNDrwjnk09-38ZeleeohghUniversity Hospitals [facility] Medical Center on above: Order Comment: Specimen Type: BLOOD SPECIMENOrdering Facility: [facility] Address:[address] [place], [place] [address]Result Comment: The Canadian Diabetes Association (ADA) provides guidance for cutoff values for fast ing glucose and random glucose. The ADA defines [...] Standards of Medical Care in Diabetes 2016, Canadian Diabetes Association. Diabetes Care. 2016.39(Suppl 1).Performed By: #### 77161-8 ####[facility] LABCLIA [id number] [place] [id number] [place] AMERICAPotassium [Moles/Vol]3.6 mmol/L Low3.7-5.1CMercy Health St. [facility] on above:Order Comment: Specimen Type: BLOOD SPECIMENOrdering Facility: [facility] Address:[address] [place] [phone] By: #### 42872-0 ####[facility] LABCLIA [id number] [address] [address] [place] AMERICASodium [Moles/Vol]138 mmol/LEmxzbf519-114MrxoqnhlyUniversity Hospitals [facility] on above:Order Comment: Specimen Type: BLOOD SPECIMENOrdering Facility: [facility] Address:[address] [place], [place] [address]Performed By: #### 63706-3 ####[facility] LABCLIA [id number] [place] [address] [place] AMERICAUrea nitrogen [Mass/Vol]14 mg/dLNormal9-24[facility] on above:Order Comment: Specimen Type: BLOOD SPECIMENOrdering Facility: [facility] Address:[address] [place], [place] [address]Performed By: #### 49110-1 ####[facility] LABCLIA [id number] [place] [address] [place] CBC W Auto Differential panel (Bld)on 36-38-7278Tpbdqjtzl (Bld) [#/Vol]10*3/uL Normal<0.11CMercy Health St. [facility] on above:Order Comment: Specimen Type: BLOOD SPECIMEN [facility] Address: [address] [place], [place] [address]Performed By: #### 05563-7 #### [facility] CLIA [id number] [address] [place] [address] [place] AMERICABasophils/100 WBC (Bld)0.1 % NormalUniversity Hospitals Cleveland Medical Center on above:Order Comment: Specimen Type: BLOOD SPECIMEN [facility] Address: [address] [place] [address]Performed By: #### 07464-3 #### [facility] CLIA [id number] [address] [place] [address] [place] AMERICADifferential cell count method Nom (Bld)AutoNormalCMercy Health St. [facility] on above:Order Comment: Specimen Type: BLOOD SPECIMEN [facility] Address: [address] [place] [address]Performed By: #### 49334-4 #### [facility] CLIA [id number] [address] [place] [address] [place] AMERICAEosinophils (Bld) [#/Vol] 0.06 10*3/uLNormal<0.46[facility] on above:Order Comment: Specimen Type: BLOOD SPECIMEN [facility] Address: [address] [place], [place] [address]Performed By: #### 64184-9 #### [facility] CLIA [id number] [address] [place] [address] [place] AMERICAEosinophils/100 WBC (Bld)0.8 %NormalUniversity Hospitals Cleveland Medical Center on above:Order Comment: Specimen Type: BLOOD SPECIMEN [facility] Address: [address] [place], [place] [address]Performed By: #### 97867-3 #### [facility] CLIA [id number] [address] [place] [address] [place] AMERICAErythrocyte distribution width (RBC) [Ratio]14.1 %Cakmxp42.5-15.0[facility] on above:Order Comment: Specimen Type: BLOOD SPECIMEN [facility] Address: [address] [place], [place] [address]Performed By: #### 15804-9 #### [facility] CLIA [id number] [address] [place] [address] [place] AMERICAHematocrit (Bld) [Volume fraction]33.6 %Low39.0-51.0[facility] on above:Order Comment: Specimen Type: BLOOD SPECIMEN [facility] Address: [address] [place], [place] [address]Performed By: #### 26661-1 #### [facility] CLIA [id number] [address] [place] [address] [place] AMERICAHemoglobin (Bld) [Mass/Vol] 10.9 g/dLLow13.0-17.0[facility] on above:Order Comment: Specimen Type: BLOOD SPECIMEN [facility] Address: [address] [place], [place] [address]Performed By: #### 55335-2 #### [facility] CLIA [id number] [address] [place] [address] [place] AMERICAImmature granulocytes (Bld) [#/Vol]0.04 10*3/uLNormal<0.10[facility] on above:Order Comment: Specimen Type: BLOOD SPECIMEN [facility] Address: [address] [place], [place] [address]Performed By: #### 35607-5 #### [facility] CLIA [id number] [address] [place] [address] [place] AMERICAImmature granulocytes/100 WBC (Bld)0.5 %[facility] on above:Order Comment: Specimen Type: BLOOD SPECIMEN [facility] Address: [address] [place], [place] [address]Performed By: #### 44757-0 #### [facility] CLIA [id number] [address] [place] [address] [place] AMERICALymphocytes (Bld) [#/Vol] 2.18 10*3/uLNormal1.00-4.00[facility] on above:Order Comment: Specimen Type: BLOOD SPECIMEN [facility] Address: [address] [place], [place] [address]Performed By: #### 71152-8 #### [facility] CLIA [id number] [address] [place] [address] [place] AMERICALymphocytes/100 WBC (Bld) 27.8 %NormalUniversity Hospitals Cleveland Medical Center on above:Order Comment: Specimen Type: BLOOD SPECIMEN [facility] Address: [address] [place], [place] [address]Performed By: #### 61133-6 #### [facility] [place] [id number] [address] [place] [address] (RBC) [Entitic mass]28.5 pqQfczjm60.0-34.0[facility] on above:Order Comment: Specimen Type: BLOOD SPECIMEN [facility] Address: [address] [place], [place] [address]Performed By: #### 50143-9 #### [facility] [place] [id number] [address] [place] [address] (RBC) [Mass/Vol]32.4 g/fLGotyfr42.5-36.0[facility] on above:Order Comment: Specimen Type: BLOOD SPECIMEN [facility] Address: [address] [place], [place] [address]Performed By: #### 12018-6 #### [facility] CLIA [id number] [address] [place] [address] (RBC) [Entitic vol]87.7 cRVxiaka61.0-100.0[facility] on above:Order Comment: Specimen Type: BLOOD SPECIMEN [facility] Address: [address] [place] [phone] By: #### 02688-7 #### [facility] [place] [id number] [address] [place], [place] [address]Monocytes (Bld) [#/Vol]0.79 10*3/uLNormal<0.87[facility] on above:Order Comment: Specimen Type: BLOOD SPECIMEN [facility] Address: [address] [place] [address]Performed By: #### 03527-0 #### [facility] CLIA [id number] [address] [address] [place] AMERICAMonocytes/100 WBC (Bld)10.1 %NormalUniversity Hospitals Cleveland Medical Center on above:Order Comment: Specimen Type: BLOOD SPECIMEN [facility] Address: [address] [place], [place] [address]Performed By: #### 23001-6 #### [facility] CLIA [id number] [address] [place] [address] [place] AMERICANeutrophils (Bld) [#/Vol] 4.75 10*3/uLNormal1.45-7.50[facility] on above:Order Comment: Specimen Type: BLOOD SPECIMEN [facility] Address: [address] [place], [place] [address]Performed By: #### 86111-4 #### [facility] CLIA [id number] [address] [place] [address] [place] AMERICANeutrophils/100 WBC (Bld) 60.7 %NormalUniversity Hospitals Cleveland Medical Center on above:Order Comment: Specimen Type: BLOOD SPECIMEN [facility] Address: [address] [place], [place] [address]Performed By: #### 24831-4 #### [facility] CLIA [id number] [address] [place] [id number] [place] AMERICANucleated RBC (Bld) [#/Vol] 10*3/uLNormal<0.01[facility] on above:Order Comment: Specimen Type: BLOOD SPECIMEN [facility] Address: [address] [place] [address]Performed By: #### 72585-5 #### [facility] CLIA [id number] [address] [place] [id number] [place] AMERICANucleated RBC/100 WBC (Bld) [Ratio]0.0 /[address] [facility] on above:Order Comment: Specimen Type: BLOOD SPECIMEN [facility] Address: [address] [place], [place] [address]Performed By: #### 94503-7 #### [facility] CLIA [id number] [address] [place] [address] [place] AMERICAPlatelet mean volume (Bld) [Entitic vol]9.6 fLNormal9.0-12.7CMercy Health St. [facility] on above: Order Comment: Specimen Type: BLOOD SPECIMEN [facility] Address: [address] [place], [place] [address]Performed By: #### 72550-5 #### [facility] CLIA [id number] [address] [place] [address] [place] AMERICAPlatelets (Bld) [#/Vol]189 10*3/dGVxnsxi809-870BersreaqdUniversity Hospitals [facility] Center on above:Order Comment: Specimen Type: BLOOD SPECIMEN [facility] Address: [address] [place], [place] [address]Performed By: #### 90915-7 #### [facility] CLIA [id number] [address] [place] [address] [place] AMERICARBC (Bld) [#/Vol]3.83 10*6/uLLow4.20-6.00[facility] on above:Order Comment: Specimen Type: BLOOD SPECIMEN [facility] Address: [address] [place] [phone] By: #### 78522-0 #### [facility] CLIA [id number] [address] [place] [id number] [place] AMERICAWBC (Bld) [#/Vol]7.83 10*3/uLNormal3.70-11.00[facility] on above:Order Comment: Specimen Type: BLOOD SPECIMEN [facility] Address: [address] [place] [phone] By: #### 06913-8 #### [facility] CLIA [id number] [address] [facility] [place] [facility] [id number] [place] [address] [facility]IL[facility]ATION HOSPITALCNDSon 97-56-9200EIIDVXN ID: [id number] Author: Harsh Coffey MD Service: Urology Author [...] Operations During Hospitalization: PERCUTANEOUS NEPHROLITHOTOMY, STENT CHANGE: 09646 (CPT?) Procedures During Hospitalization: Intubation Hospital Course: [...] FACS Director, Surgical Stone Disease, [facility] [place] environmental health and safety leader, [facility] [employer] Pager [phone] 05/24/2022NormalCSt. Charles HospitalCULTURE URINEon 43-03-9117VXSGIRA URINECulture Observations: NO GROWTH.NormalAshtabula County Medical CenterComment on above:Performed By: #### INFLUAB #### [facility] [address] [place] [address] [address] Lissa Birch URINE PROFILEon 85-41-0946Yfqympfuc Ql (U)SMALLAbnormal NEGATIVEAshtabula County Medical CenterComment on above:Performed By: #### ERUR, UMICRO #### [facility] [address] [place] [address] [address] Lissa SageClarity (U)CLOUDYAbnormalCLEARThe [facility] HospitalComment on above:Performed By: #### ERUR, UMICRO #### [facility] [address] [place] [address] Dr. Lissa Maria (U)BROWNAbnormalYELLOWAshtabula County Medical CenterComment on above:Performed By: #### ERUR, UMICRO #### [facility] [address] [place] [address] Dr. Lissa PollockKATHLEEN micrscopic examination will be performed if indicated. NormalAshtabula County Medical CenterComment on above:Performed By: #### ERUR, UMICRO #### [facility] [address] [place] [address] Dr. Lissa SageGlucose Ql (U)NegativeNormalNEGATIVEAshtabula County Medical CenterComment on above:Performed By: #### ERUR, UMICRO #### [facility] [address] [place] [address] Dr. Lissa SageHemoglobin Ql (U)LARGEAbnormalNEGATIVECorey Hospital on above:Performed By: #### ERUR, UMICRO #### [facility] [address] [place] [address] Dr. Lissa SageKetones Ql (U)NegativeNormalNEGATIVEAshtabula County Medical CenterComment on above:Performed By: #### ERUR, UMICRO #### [facility] [address] [place] [address] Dr. Lissa SageLEUKOCYTESSMALLAbnormalNEGATIVEThe [facility] HospitalComment on above:Performed By: #### MARY UMICRO #### [facility] [address] [place] [address] [address] Lissa Narayanan Ql (U)PositiveAbnormalNEGATIVEThe [facility] on above:Performed By: #### MARY UMICRO #### [facility] [address] [place] [address] [address] Lissa SagepH (U)6.5 [pH]Normal5-9The [facility] HospitalComment on above: Performed By: #### MARY UMICRO #### [facility] [address] [place] [address] [address] Lissa SageSPEC GRAVITY1.138Yqxpnd3.005-<=1.025The [facility] on above:Performed By: #### MARY UMICRO #### [facility] [address] [place] [address] [address] Lissa Guerra PROTEIN>300AbnormalNEGATIVE/ TRACEThe [facility] HospitalComment on above:Performed By: #### MARY UMICRO #### [facility] [address] [place] [address] [address] Lissa Trivedi MICRO INDINDICATEDBlanchard Valley Health System on above: Performed By: #### MARY UMICRO #### [facility] [address] [place] [address] [address] Lissa Michaudbilinogen Qn (U)0.2 {Gurpreet'U}/dLNormal0.2 - 1.0The [facility] Campus Medical Centerment on above:Performed By: #### MARY UMICRO #### [facility] [address] [address] [address] Lissa Rocha MICROSCOPIC ONLYon 82-04-4358CTHNNYXRWOALBHqgucpmhJZIL SEEN [facility] HospitalComascension [facility] on above:Performed By: #### MARY UMICRO #### [facility] [address] [address] [address] Lissa Jacinto identified Cx Nom (U)INDICATEDOhioHealth Pickerington Methodist Hospitalascension [facility] on above:Performed By: #### ERUR, UMICRO #### [facility] [address] [place] [address] [address] Lissa Burns SEENNormalNONE SEENAshtabula County Medical CenterComascension [facility] on above:Performed By: #### ERUR, UMICRO #### [facility] [address] [address] [address] Lissa Vigil LM Nom (Urine sed)NONE SEENNormalNONE SEENAshtabula County Medical CenterComascension [facility] on above:Performed By: #### ERUR, UMICRO #### [facility] [address] [address] [address] Lissa Palmapithelial cells LM Ql (Urine sed)RARENormalNONE SEEN /RAREAshtabula County Medical CenterComascension [facility] on above:Performed By: #### ERUShannon, UMICRO #### [facility] [address] [address] [address] Lissa StephensACEAbnormalNONE SEENSalem City Hospital on above:Performed By: #### ERUShannon, UMICRO #### [facility] [address] [address] [address] Lissa Padilla (U) [#/Vol]/uLAbnormal0-2[facility] on above:Performed By: #### ERUShannon, UMICRO #### [facility] [address] [address] [address] Lissa SolisLavmjTTN43-57NunbgsuaOAMP SEENSalem City Hospital on above: Performed By: #### ERUR, UMICRO #### [facility] [address] [place] [address] [address] Lissa Arroyo metabolic 2000 panelon 78-19-2622Myxrv gap [Moles/Vol]12 mmol/LNormal9-18[facility] HospitalComascension [facility] on above:Order Comment: Specimen Type: BLOOD SPECIMEN [facility] Address: [address] [place] [phone] By: #### 44613-9 #### [facility] CLIA [id number] [address] [place] [address] [place] AMERICACalcium [Mass/Vol]9.0 mg/dL Normal8.5-10.2CMercy Health St[facility] on above:Order Comment: Specimen Type: BLOOD SPECIMEN [facility] Address: [address] [place], [place] [address]Performed By: #### 88619-6 #### [facility] CLIA [id number] [address] [place] [address] [place] AMERICAChloride [Moles/Vol]103 mmol/URbgzqc17-348FiwjlvwwjUniversity [facility]als [facility] on above:Order Comment: Specimen Type: BLOOD SPECIMEN [facility] Address: [address] [place], [place] [address]Performed By: #### 95351-3 #### [facility] CLIA [id number] [address] [place] [address] [place] AMERICACO2 [Moles/Vol]21 mmol/LLow 22-30[facility] on above:Order Comment: Specimen Type: BLOOD SPECIMEN [facility] Address: [address] [place] [address]Performed By: #### 42478-0 #### [facility] CLIA [id number] [address] [place] [address] [place] AMERICACreatinine [Mass/Vol]0.97 mg/dLNormal0.73-1.22[facility] on above:Order Comment: Specimen Type: BLOOD SPECIMEN [facility] Address: [address] [place] [address]Performed By: #### 12870-4 #### [facility] CLIA [id number] [address] [place] [id number] [place] AMERICAESTIMATED GLOMERULAR FILTRATION RATE96 mL/min/1.73m???Normal>=60[facility] on above:Order Comment: Specimen Type: BLOOD SPECIMEN [facility] Address: [address] [place], [place] [address] Comment: Estimated Glomerular Filtration Rate (eGFR) is calculated using the 2020 CKD-EPI cre atinine equation. This equation utilizes serum creatinine, sex, and age as parameters. The creatinine assay has traceable calibration to isotope dilution- mass spectrometry. Refer to KDIGO guidelines for clinical interpretation. In patients with unstable renal function, e.g. those with acute kidney injury, the eGFR may not accurately reflect actual GFR.Performed By: #### 87590-3 #### [facility] CLIA [id number] [address] [place] [address] [place] OF AMERICAGlucose [Mass/Vol]144 mg/dL Jnae74-43GqwthpmtxUniversity Hospitals Cleveland [facility] Center on above:Order Comment: Specimen Type: BLOOD SPECIMEN Ordering Facility: [facility] Address: [address] [place], [place] [address]Result Comment: The Canadian Diabetes Association (ADA) provides guidance for cutoff [...] Standards of Medical Care in Diabetes 2016, Canadian Diabetes Association. Diabetes Care. 2016.39(Suppl 1).Performed By: #### 84380-2 #### [facility] CLIA [id number] [address] [place], [place] [address] [place] OF AMERICAPotassium [Moles/Vol]4.6 mmol/LNormal3.7-5.1CMercy Health St. [facility] on above:Order Comment: Specimen Type: BLOOD SPECIMEN Ordering Facility: [facility] Address: [address] [place] [address], [place] [address]Bqjhquekx By: #### 71622-0 #### [facility] CLIA [id number] [address] [place] [id number] [place] OF AMERICASodium [Moles/Vol]136 mmol/L Olpnap250-295RzdtqupbqUniversity Hospitals [facility] Center on above:Order Comment: Specimen Type: BLOOD SPECIMEN Ordering Facility: [facility] Address: [address] [id number] By: #### 44532-8 #### [facility] CLIA [id number] [address] [place] [address] [place] OF AMERICAUrea nitrogen [Mass/Vol]16 mg/dLNormal9-24[facility] on above:Order Comment: Specimen Type: BLOOD SPECIMEN Ordering Facility: [facility] Address: [address] [place] [address]Performed By: #### 82460-1 #### [facility] CLIA [id number] [address] [place] [address] [place] AMERICACB W Auto Differential panel (Bld)on 00-92-8575Jcwgkxuwi (Bld) [#/Vol]10*3/uLNormal<0.11CMercy Health St. [facility] on above:Order Comment: Specimen Type: BLOOD SPECIMEN Ordering Facility: [facility] Address: [address] [place] [address]Dymltrnoe By: #### 06996-1 #### [facility] CLIA [id number] [address] [place] [place] [id number] [place] OF AMERICABasophils/100 WBC (Bld)0.2 % NormalUniversity Hospitals Cleveland Medical Center on above:Order Comment: Specimen Type: BLOOD SPECIMEN Ordering Facility: [facility] Address: [address] [place] [phone] By: #### 27289-2 #### [facility] CLIA [id number] [address] [place] [address] [place] AMERICADifferential cell count method Nom (Bld)AutoNormalClevelDoctors Hospital on above:Order Comment: Specimen Type: BLOOD SPECIMEN Ordering Facility: [facility] Address: [address] [place], [place] [address]Performed By: #### 08002-1 #### [facility] CLIA [id number] [facility] [place] [address] [place] AMERICAEosinophils (Bld) [#/Vol] 10*3/uLNormal<0.46[facility] on above:Order Comment: Specimen Type: BLOOD SPECIMEN Ordering Facility: [facility] Address: [address] [place], [place] [address]Performed By: #### 53930-5 #### [facility] CLIA [id number] [address] [place] [address] [place] AMERICAEosinophils/100 WBC (Bld)0.1 %NormalUniversity Hospitals Cleveland Medical Center on above:Order Comment: Specimen Type: BLOOD SPECIMEN Ordering Facility: [facility] Address: [address] [place], [place] [address]Performed By: #### 88563-3 #### [facility] CLIA [id number] [address] [place] [address] [place] OF AMERICAErythrocyte distribution width (RBC) [Ratio]13.9 %Exixqn53.5-15.0[facility] on above:Order Comment: Specimen Type: BLOOD SPECIMEN Ordering Facility: [facility] Address: [address] [place], [place] [address]Performed By: #### 82819-2 #### [facility] CLIA [id number] [address] [place] [address] [place] AMERICAHematocrit (Bld) [Volume fraction]37.7 %Low39.0-51.0[facility] on above:Order Comment: Specimen Type: BLOOD SPECIMEN Ordering Facility: [facility] Address: [address] [place], [place] [address]Performed By: #### 35414-0 #### [facility] CLIA [id number] [address] [place] [address] [place] AMERICAHemoglobin (Bld) [Mass/Vol] 12.2 g/dLLow13.0-17.0[facility] on above:Order Comment: Specimen Type: BLOOD SPECIMEN Ordering Facility: [facility] Address: [address] [place], [place] [address]Performed By: #### 23561-9 #### [facility] CLIA [id number] [address] [place] [address] [place] AMERICAImmature granulocytes (Bld) [#/Vol]0.08 10*3/uLNormal<0.10[facility] on above:Order Comment: Specimen Type: BLOOD SPECIMEN Ordering Facility: [facility] Address: [address] [place], [place] [address]Performed By: #### 43798-5 #### [facility] CLIA [id number] [address] [place] [address] [place] AMERICAImmature granulocytes/100 WBC (Bld)0.7 %NormalUniversity Hospitals Cleveland Medical Center on above:Order Comment: Specimen Type: BLOOD SPECIMEN Ordering Facility: [facility] Address: [address] [place] [address]Tluovnnrw By: #### 22401-4 #### [facility] CLIA [id number] [address] [place] [address] [place] OF AMERICALymphocytes (Bld) [#/Vol] 1.17 10*3/uLNormal1.00-4.00[facility] on above:Order Comment: Specimen Type: BLOOD SPECIMEN Ordering Facility: [facility] Address: [address] [place] [address]Performed By: #### 09643-1 #### [facility] CLIA [id number] [address] [place] [address] [place] [facility] HOSPITALLymphocytes/100 WBC (Bld)9.7 %NormalUniversity Hospitals Cleveland Medical Center on above:Order Comment: Specimen Type: BLOOD SPECIMEN Ordering Facility: [facility] Address: [address] [place] [address]Performed By: #### 07765-3 #### [facility] CLIA [id number] [address] [place] [address] [place] OF [facility]ITALH (RBC) [Entitic mass]28.3 fkTmhpwi32.0-34.0[facility] on above:Order Comment: Specimen Type: BLOOD SPECIMEN Ordering Facility: [facility] Address: [address] [place] [address]Performed By: #### 66769-4 #### [facility] CLIA [id number] [address] [place] [address] [facility]I HOSPITALMCHC (RBC) [Mass/Vol]32.4 g/sFPrqaqb85.5-36.0[facility] on above:Order Comment: Specimen Type: BLOOD SPECIMEN Ordering Facility: [facility] Address: [address] [place] [address]Qotgqgjsh By: #### 20271-3 #### [facility] CLIA [id number] [address] [place] [id number] [place] [facility] CENTERV (RBC) [Entitic vol]87.5 hNDrmupb41.0-100.0[facility] on above:Order Comment: Specimen Type: BLOOD SPECIMEN Ordering Facility: [facility] Address: [address] [place] [address]Performed By: #### 12588-6 #### [facility] CLIA [id number] [address] [place] [address] [place] AMERICAMonocytes (Bld) [#/Vol]0.93 10*3/uLHigh<0.87[facility] on above:Order Comment: Specimen Type: BLOOD SPECIMEN Ordering Facility: [facility] Address: [address] [place], [place] [address]Performed By: #### 99646-3 #### [facility] CLIA [id number] [address] [place] [address] [place] AMERICAMonocytes/100 WBC (Bld)7.7 % NormalUniversity Hospitals Cleveland Medical Center on above:Order Comment: Specimen Type: BLOOD SPECIMEN Ordering Facility: [facility] Address: [address] [place], [place] [address]Performed By: #### 94500-3 #### [facility] CLIA [id number] [address] [place] [address] [place] AMERICANeutrophils (Bld) [#/Vol] 9.87 10*3/uLHigh1.45-7.50[facility] on above:Order Comment: Specimen Type: BLOOD SPECIMEN Ordering Facility: [facility] Address: [address] [place], [place] [address]Performed By: #### 31588-6 #### [facility] CLIA [id number] [address] [place] [address] [place] AMERICANeutrophils/100 WBC (Bld) 81.6 %NormalUniversity Hospitals Cleveland Medical Center on above:Order Comment: Specimen Type: BLOOD SPECIMEN Ordering Facility: [facility] Address: [address] [place] [address]Mfofozqwc By: #### 53974-2 #### [facility] CLIA [id number] [address] [place] [address] [place] AMERICANucleated RBC (Bld) [#/Vol] 10*3/uLNormal<0.01[facility] on above:Order Comment: Specimen Type: BLOOD SPECIMEN Ordering Facility: [facility] Address: [address] [place] [address]Yqsqkmrlc By: #### 88978-2 #### [facility] CLIA [id number] [address] [place] [address] [place] AMERICANucleated RBC/100 WBC (Bld) [Ratio]0.0 /[address] [facility] on above:Order Comment: Specimen Type: BLOOD SPECIMEN Ordering Facility: [facility] Address: [address] [place] [address]Performed By: #### 83726-1 #### [facility] CLIA [id number] [address] [place] [address] [place] AMERICAPlatelet mean volume (Bld) [Entitic vol]9.2 fLNormal9.0-12.7CMercy Health St. [facility] on above: Order Comment: Specimen Type: BLOOD SPECIMEN Ordering Facility: [facility] Address: [address] [place] [address]Mvnxhkvta By: #### 58177-1 #### [facility] CLIA [id number] [address] [place], [place] [address] [place] AMERICAPlatelets (Bld) [#/Vol]234 10*3/iAIhhnin073-213IkigsgfuhUniversity Hospitals Cleveland Medical Center on above:Order Comment: Specimen Type: BLOOD SPECIMEN Ordering Facility: [facility] Address: [address] [place] [address]Brgbrsrqi By: #### 25378-1 #### [facility] CLIA [id number] [address] [place], [place] [address] [place] AMERICARBC (Bld) [#/Vol]4.31 10*6/uLNormal4.20-6.00[facility] on above:Order Comment: Specimen Type: BLOOD SPECIMEN Ordering Facility: [facility] Address: [address] [place] [address]Moxcitxiw By: #### 46939-9 #### [facility] CLIA [id number] [address] [facility] [place] [id number] [place] OF AMERICAWBC (Bld) [#/Vol]12 10*3/uLHigh3.70-11.00Ohiohealth Berger HospitalComment on above:Order Comment: Specimen Type: BLOOD SPECIMEN Ordering Facility: [facility] Address: [address] [place], [place] [address]Performed By: #### 36510-1 #### [facility] CLIA [id number] [address] [facility] [place] [id number] [place] OF AMERICANURSING PROGon 05-23-2022 NURSING PROGHNO ID: [id number] Author: Kaitlin Keane RN Service: ? Author Type: Registered Nurse Type: Nursing Progress Note Filed: 05/23/2022 6:12 PM Note Text: Nursing Progress Note Topic of Note: Daily Note Taras Hayward [id number] 0930: kramer emptied fro 900cc bloody urine. 1249: noted only 50cc bloddy urine in kramer bag. Pt denies any pressure or pain. Dr coffey at bedside, made aware of output. Dr coffey advised to do serial urines. Informed patient to keep drinking and walking. 1417: no urine noted in drainage bag. Notified 13923. Pt denies pressure or pain. Noted feeling pressure when sat to have a BM. No bm and pressure gone when pt got back to bed. 1447: bladder scanned for 245cc. 1500: Елена SUPPLY CHAIN ENGINEER to bedside to irrigate, no clots noted but urnie began flowing. Will monitor. 1720:no urine output since 1500, pt becoming uncomfortable, encouaged to walk, no output, so bladder scanned for 127cc. 1745: spoke with Елена ACOSTA, ok to irrigate. 1800:irrigated with 100cc, with immediate return for a total of 900cc, pt with much relief. This note was completed by: Kaitlin [facility]St[facility] ANES POSTPROC EVALon [id number] POSTPROC EVALHNO ID: [id number] Author: Chapo Alcala DO Service: ? Author Type: Anesthesiologist Type: Anesthesia Postprocedure Evaluation Filed: 05/22/2022 4:18 PM Note Text: POST ANESTHESIA EVALUATION NOTE : 1970 Procedure Summary Date: 05/22/22 Room / Location: [address] [facility] Anesthesia Start: 1328 Anesthesia [...] May 22, 2022 TIME: 4:16 PM CSN: [id number] PRE-OPon [id number] PRE-OPHNO ID: [id number] Author: Chapo Alcala DO Service: ? Author Type: Anesthesiologist Type: Anesthesia Preprocedure Evaluation Filed: 05/22/2022 12:55 PM Note Text: ANESTHESIOLOGY DAY OF SURGERY NOTE : 1970 Procedure Information Date/Time: 05/22/22 1248 Procedure: PERCUTANEOUS NEPHROLITHOTOMY (Right: Kidney) Location: [address] [facility] Surgeons: Harsh Coffey MD Estimated body mass [...] and consent discussed: yes. Patient / Responsible [employer] agrees to proceed: yes Patient / Surrogate [...] afterwards, # 2 tab(s), Refills(s) 0, Pharmacy: [facility]/pharmacy #[id number] Start Date: 08/22/19 Status: Ordered [...] May 22, 2022 TIME: 12:55 PM CSN: [id number] North Health Center OP NOTon [id number] OP NOTHNO ID: [id number] Author: Tejinder Quezada MD Service: Radiology Author Type: Physician Type: Brief Op Note Filed: 05/22/2022 10:29 AM Note Text: OPERATIVE/PROCEDURE REPORT LOG ID: [id number] SURGERY/PROCEDURE DATE: 05/22/2022 INCISION/PROCEDURE START TIME: 8:33 AM INCISION CLOSE/PROCEDURE END TIME: 10:13 AM SURGEON(S)/PROCEDURALIST(S) AND GOODWILL REPRESENTATIVE(S): Surgeon(s) and Role: * Tejinder Quezada MD [...] [place]ward DATE: May 22, 2022 TIME: 10:22 AMNormalOhiohealth Berger HospitalBacteria Ur Culton 05-22-2022 Bacteria identified Cx Nom (U)CULTURE, URINE: No growth (<100 CFU/ml)NormalUniversity Hospitals Cleveland Medical Center on above: Performed By: #### 630-4 ####[facility] [id number] [place] [address] [place] AMERICABasic metabolic 2000 panelon 30-44-3487Dpcof gap [Moles/Vol]12 mmol/LNormal9-18 [facility] on above:Order Comment: Specimen Type: BLOOD SPECIMENOrdering Facility: [facility] Address:[address] [place] [phone] By: #### 33411-5 ####[facility] [id number] [place] [address] [place] AMERICACalcium [Mass/Vol]8.8 mg/dLNormal8.5-10.2CMercy Health St. [facility] on above:Order Comment: Specimen Type: BLOOD SPECIMENOrdering Facility: [facility] Address:[address] [place], [place] [address]Performed By: #### 07474-5 ####[facility]CLIA [id number] [place] [address] [place] ROSMERY Chloride [Moles/Vol]105 mmol/ARhrlno25-158VxxsylvyoUniversity Hospitals [facility] Center on above:Order Comment: Specimen Type: BLOOD SPECIMENOrdering Facility: [facility] Address:[address] [place], [place] [address]Performed By: #### 72629-0 ####[facility]CLIA [id number] [place] [address] [place] AMERICACO2 [Moles/Vol]22 mmol/MYymbwd22-33XkjbqmyuvUniversity Hospitals Cleveland [facility] Center on above:Order Comment: Specimen Type: BLOOD SPECIMENOrdering Facility: [facility] Address:[address] [place], [place] [address]Performed By: #### 15529-7 ####[facility] LABCLIA [id number] [place] [address] [place] AMERICACreatinine [Mass/Vol]1.02 mg/dL Normal0.73-1.22[facility] on above:Order Comment: Specimen Type: BLOOD SPECIMENOrdering Facility: [facility] Address:[address] [place], [place] [address]Performed By: #### 80177-2 ####[facility] LABCLIA [id number] [place] [address] [place] AMERICAESTIMATED GLOMERULAR FILTRATION RATE90 mL/min/1.73m???Normal>=60[facility] on above:Order Comment: Specimen Type: BLOOD SPECIMENOrdering Facility: [facility] Address:[address] [place], [place] [address] Comment: Estimated Glomerular Filtration Rate (eGFR) is calculated using the 2020 CKD-EPI creatinine equation. This equation utilizes serum creatinine, sex, and age as parameters. The creatinine assay has traceable calibration to isotope dilution- mass spectrometry. Refer to KDIGO guidelines for clinical interpretation. In patients with unstable renal function, e.g. those with acute kidney injury, the eGFR may not accurately reflect actual GFR.Performed By: #### 18759-5 ####[facility]IA [id number] [address] [address] [place] OF AMERICAGlucose [Mass/Vol]143 mg/dLHigh 74-99[facility] on above:Order Comment: Specimen Type: BLOOD SPECIMENOrdering Facility: [facility] Address:[address] [place] [address]Jdsduz Comment: The Canadian Diabetes Association (ADA) provides guidance for cutoff values for fasting glucose and random glucose. The ADA defines fasting as no caloric intake for at least 8 hours. F asting plasma glucose results between 100 to 125 [...] Standards of Medical Care in Diabetes 2016, Canadian Diabetes Association. Diabetes Care. 2016.39(Suppl 1).Performed By: #### 85559-5 ####[facility] LABCLIA [id number] [place] [id number] [place] OF AMERICAPotassium [Moles/Vol]4.4 mmol/L Normal3.7-5.1CMercy Health St. [facility] on above:Order Comment: Specimen Type: BLOOD SPECIMENOrdering Facility: [facility] Address:[address] [place] [address]Qrogrlhbp By: #### 12294-6 ####[facility] LABCLIA [id number] [address] [address] [place] OF AMERICASodium [Moles/Vol]139 mmol/HYzuunw277-143EnvqjekugUniversity Hospitals Cleveland Medical Center on above:Order Comment: Specimen Type: BLOOD SPECIMENOrdering Facility: [facility] Address:[address] [place], [place] [address]Performed By: #### 60733-2 ####[facility] LABCLIA [id number] [place] [address] [place] AMERICAUrea nitrogen [Mass/Vol]17 mg/dLNormal9-24[facility] on above:Order Comment: Specimen Type: BLOOD SPECIMENOrdering Facility: [facility] Address:[address] [place], [place] [address]Performed By: #### 49307-3 ####[facility] LABCLIA [id number] [place] [address] [place] ROSMERY CALCULI ANALYSISon 49-87-0349Xheeoksf analysis [Interp]NormalUniversity Hospitals Cleveland Medical Center on above:Order Comment: Specimen Type: BLOOD SPECIMEN Ordering Facility[facility] Address: [address] [place], [place] [address]Result Comment: This test was developed and its performance characteristics determined by [facility] Pathology and Laboratory Medicine [place] (-[facility]). It has not been cleared or approved by the FDA. -[facility] is regulated under CLIA as qualified to perform high-complexity testing. This test is used for clinical purposes. It should not be regarded as investigational orfor research.Performed By: #### 73182-3 #### [facility] CLIA [id number] [address] [place] [address] [place] OF AMERICACALCULUS COLORBROWN AND BEIGENormalUniversity Hospitals Cleveland Medical Center on above:Order Comment: Specimen Type: BLOOD SPECIMEN [facility] Address: [address] [place], [place] [address]Performed By: #### 38702-5 #### [facility] CLIA [id number] [address] [place] [address] [place] AMERICACALCULUS COMPOSITION 160% Calcium PhosphateNormalCleveland Clinic ClevelandComment on above:Order Comment: Specimen Type: BLOOD SPECIMEN [facility] Address: [address] [place], [place] [address]Performed By: #### 28469-3 #### [facility] CLIA [id number] [address] [place] [address] [place] AMERICACALCULUS COMPOSITION 230% Calcium Oxalate MonohydrateNormalUniversity Hospitals [facility] Center on above: Order Comment: Specimen Type: BLOOD SPECIMEN [facility] Address: [address] [place], [place] [address]Performed By: #### 90947-6 #### [facility] CLIA [id number] [address] [place] [address] [place] AMERICACALCULUS COMPOSITION 310% Minor ComponentsNormalCMercy Health St. [facility] on above:Order Comment: Specimen Type: BLOOD SPECIMEN [facility] Address: [address] [place], [place] [address]Performed By: #### 60887-4 #### [facility] CLIA [id number] [address] [place] [address] [place] AMERICACALCULUS SIZE AND WTMultiple pieces. 0.[address] [facility] on above:Order Comment: Specimen Type: BLOOD SPECIMEN Order[facility] Address: [address] [place] [address]Performed By: #### 24160-7 #### [facility] CLIA [id number] [address] [place] [address] [place] AMERICACALCULUS TYPECalculus, CALCULI/CALCULUSNormalCMercy Health St. [facility] on above:Order Comment: Specimen Type: BLOOD SPECIMEN Ordering [facility] Address: [address] [place], [place] [address]Performed By: #### 39065-0 #### [facility] CLIA [id number] [address] [place] [address] [place] AMERICACB W Auto Differential panel (Bld)on 72-66-8155Nebpmskmg (Bld) [#/Vol]10*3/uLNormal<0.11CMercy Health St. [facility] on above:Order Comment: Specimen Type: BLOOD SPECIMEN [facility] Address: [address] [place], [place] [address]Performed By: #### 24236-2 #### [facility] CLIA [id number] [address] [place] [address] [place] AMERICABasophils/100 WBC (Bld)0.2 % NormalUniversity Hospitals Cleveland Medical Center on above:Order Comment: Specimen Type: BLOOD SPECIMEN Order[facility] Address: [address] [place], [place] [address]Performed By: #### 72164-0 #### [facility] CLIA [id number] [address] [place] [address] [place] AMERICADifferential cell count method Nom (Bld)AutoNormalClevelDoctors Hospital on above:Order Comment: Specimen Type: BLOOD SPECIMEN [facility] Address: [address] [place], [place] [address]Performed By: #### 88098-2 #### [facility] CLIA [id number] [address] [place] [address] [place] AMERICAEosinophils (Bld) [#/Vol] 10*3/uLNormal<0.46[facility] on above:Order Comment: Specimen Type: BLOOD SPECIMEN [facility] Address: [address] [place], [place] [address]Performed By: #### 12147-3 #### [facility] CLIA [id number] [address] [place] [address] [place] AMERICAEosinophils/100 WBC (Bld)0.0 %NormalUniversity Hospitals Cleveland Medical Center on above:Order Comment: Specimen Type: BLOOD SPECIMEN [facility] Address: [address] [place], [place] [address]Performed By: #### 49771-5 #### [facility] [place] [id number] [address] [place] [address] [place] AMERICAErythrocyte distribution width (RBC) [Ratio]14.2 %Okbapq22.5-15.0[facility] on above:Order Comment: Specimen Type: BLOOD SPECIMEN Ordering Facility: [facility] Address: [address] [place], [place] [address]Performed By: #### 88067-9 #### [facility] [place] [id number] [address] [place] [address] [place] AMERICAHematocrit (Bld) [Volume fraction]44.1 %Nmxqnj30.0-51.0[facility] on above:Order Comment: Specimen Type: BLOOD SPECIMEN Ordering Facility: [facility] Address: [address] [place], [place] [address]Performed By: #### 89299-3 #### [facility] [place] [id number] [address] [place] [address] [place] AMERICAHemoglobin (Bld) [Mass/Vol] 13.9 g/oLRmtdoj68.0-17.0[facility] on above:Order Comment: Specimen Type: BLOOD SPECIMEN Ordering Facility: [facility] Address: [address] [place], [place] [address]Performed By: #### 80761-8 #### [facility] [place] [id number] [address] [place] [address] [place] AMERICAImmature granulocytes (Bld) [#/Vol]0.06 10*3/uLNormal<0.10[facility] on above:Order Comment: Specimen Type: BLOOD SPECIMEN Ordering Facility: [facility] Address: [address] [place] [address]Performed By: #### 13833-6 #### [facility] CLIA [id number] [address] [place] [address] [place] AMERICAImmature granulocytes/100 WBC (Bld)0.5 %NormalUniversity Hospitals [facility] on above:Order Comment: Specimen Type: BLOOD SPECIMEN Ordering Facility: [facility] Address: [address]Performed By: #### 87797-0 #### [facility] CLIA [id number] [address] [place] [address] [place] AMERICALymphocytes (Bld) [#/Vol] 0.77 10*3/uLLow1.00-4.00[facility] on above:Order Comment: Specimen Type: BLOOD SPECIMEN Ordering Facility: [facility] Address: [address]Performed By: #### 81328-7 #### [facility] [place] [id number] [address] [place] [address] [place] AMERICALymphocytes/100 WBC (Bld)6.5 %NormalUniversity Hospitals [facility] on above:Order Comment: Specimen Type: BLOOD SPECIMEN Ordering Facility: [facility] Address: [address] [place], [place] [address]Performed By: #### 04658-2 #### [facility] CLIA [id number] [address] [place] [address] [place] AMERICAMC (RBC) [Entitic mass]28.2 npWttrba11.0-34.0[facility] on above:Order Comment: Specimen Type: BLOOD SPECIMEN Ordering Facility: [facility] Address: [address] [place], [place] [address]Performed By: #### 37678-5 #### [facility] CLIA [id number] [address] OF [facility]PITALMCHC (RBC) [Mass/Vol]31.5 g/gFEiqbqu58.5-36.0[facility] on above:Order Comment: Specimen Type: BLOOD SPECIMEN Ordering Facility: [facility] Address: [address] [place], [place] [address]Performed By: #### 10542-8 #### [facility] CLIA [id number] [address] (RBC) [Entitic vol]89.5 wINmbmhk83.0-100.0[facility] on above:Order Comment: Specimen Type: BLOOD SPECIMEN Ordering Facility: [facility] Address: [address] [place], [place] [address]Performed By: #### 64241-6 #### [facility] CLIA [id number] [address] [place] [address] [place] AMERICAMonocytes (Bld) [#/Vol]0.45 10*3/uLNormal<0.87[facility] on above:Order Comment: Specimen Type: BLOOD SPECIMEN Ordering Facility: [facility] Address: [address] [place], [place] [address]Performed By: #### 75686-7 #### [facility] CLIA [id number] [address] [place] [address] [place] AMERICAMonocytes/100 WBC (Bld)3.8 % NormalUniversity [facility]als [facility] on above:Order Comment: Specimen Type: BLOOD SPECIMEN Ordering Facility: [facility] Address: [address] [place], [place] [address]Performed By: #### 01931-0 #### [facility] CLIA [id number] [address] [place] [address] [place] AMERICANeutrophils (Bld) [#/Vol] 10.49 10*3/uLHigh1.45-7.50[facility] on above:Order Comment: Specimen Type: BLOOD SPECIMEN Ordering Facility: [facility] Address: [address] [place], [place] [address]Performed By: #### 75804-4 #### [facility] CLIA [id number] [address] [place] [address] [place] AMERICANeutrophils/100 WBC (Bld) 89.0 %NormalUniversity Hospitals [facility] on above:Order Comment: Specimen Type: BLOOD SPECIMEN Ordering Facility: [facility] Address: [address] [place], [place] [address]Performed By: #### 36694-2 #### [facility] CLIA [id number] [address] [place] [address] [place] AMERICANucleated RBC (Bld) [#/Vol] 10*3/uLNormal<0.01[facility] [place] [facility] on above:Order Comment: Specimen Type: BLOOD SPECIMEN Ordering Facility: [facility] Address: [address] [place], [place] [address]Performed By: #### 60702-8 #### [facility] CLIA [id number] [address] [place] [address] [place] AMERICANucleated RBC/100 WBC (Bld) [Ratio]0.0 /[address] [facility] on above:Order Comment: Specimen Type: BLOOD SPECIMEN Ordering Facility: [facility] Address: [address] [place] [address]Ozqkxagjy By: #### 91679-8 #### [facility] CLIA [id number] [address] [place] [address] [place] AMERICAPlatelet mean volume (Bld) [Entitic vol]9.3 fLNormal9.0-12.7CMercy Health St. [facility] on above: Order Comment: Specimen Type: BLOOD SPECIMEN Ordering Facility: [facility] Address: [address] [place] [address]Performed By: #### 06660-8 #### [facility] CLIA [id number] [address] [place] [id number] [place] AMERICAPlatelets (Bld) [#/Vol]239 10*3/hCYjnxlt457-318UtxklbxenUniversity Hospitals [place] [facility] on above:Order Comment: Specimen Type: BLOOD SPECIMEN Ordering Facility: [facility] Address: [address] [place], [place] [address]Performed By: #### 38215-9 #### [facility] CLIA [id number] [address] [place] [id number] [facility] HEALTH AMERICARB (Bld) [#/Vol]4.93 10*6/uLNormal4.20-6.00[facility] [place] [facility] on above:Order Comment: Specimen Type: BLOOD SPECIMEN Ordering Facility: [facility] Address: [address] [place], [place] [address]Performed By: #### 42107-4 #### [facility] CLIA [id number] [address] [place], [place] [address] [facility] AMERICAWBC (Bld) [#/Vol]11.79 10*3/uLHigh3.70-11.00[facility] on above:Order Comment: Specimen Type: BLOOD SPECIMEN Ordering Facility: [facility] Address: [address] [place], [place] [address]Performed By: #### 27690-9 #### [facility] CLIA [id number] [address] [place], [place] [address] [place] OF AMERICAHISTORY PHYSICALon 33-85-6813KUYOKQH PHYSICALHNO ID: [id number] Author: Tejinder Quezada MD Service: Interventional Radiology Author Type: Physician Type: HANDP Filed: 05/22/2022 7:29 AM Note Text: UPDATED PROCEDURAL SEDATION HISTORY AND PHYSICAL EXAMINATION SERVICE DATE: 05/22/2022 SERVICE TIME: 709 PHYSICAL EXAM MUST BE COMPLETED ON ADMISSION [...] DATE: May 22, 2022 TIME: 7:11 AM PAGER:BertoOhiohealth Berger HospitalIR NEPHROSTOMY TUBE PLACEon [id number] NEPHROSTOMY TUBE PLACE* * *Final Report* * * DATE OF EXAM: May 22 2022 10:13AM [facility] 0779 - IR NEPHROSTOMY TUBE PLACE / [...] distal ureter. Over a wire, a #6 Slovak straight nephroureteral catheter was placed with its [...] Specimens: none ATTENDING RADIOLOGIST: Tejinder Quezada M.D. GOODWILL REPRESENTATIVE: None The procedure was performed by the: attending radiologist, without an housing assistant. The attending radiologist performed the following [...] right lower pole calyx, (more content not included)...[facility]Sub[facility] PROGon [id number] PRONO ID: [id number] Author: Wilma Sahu RN Service: Nursing Author Type: Registered Nurse Type: Nursing Progress Note Filed: 05/22/2022 5:57 PM Note Text: Admission/Transfer Note PATIENT NAME: Taras Hayward Patient admitted from PACU via bed in stable condition. Actions taken: Patient oriented to room, call light function, prescribed activities, Patient rights, and Quiet at night. This note was completed by: Wilma JacobsonParkview Health Bryan Hospital NOon [id number] NOHNO ID: [id number] Author: Harsh Coffey MD Service: Urology Author Type: Physician Type: Operative Report Filed: 05/23/2022 7:34 PM Note Text: OPERATIVE/PROCEDURE REPORT LOG ID: [id number] Surgery/Procedure Date: 05/22/2022 Incision/Procedure Start Time: 2:31 PM Incision Close/Procedure End Time: 3:47 PM Surgeon(s)/Proceduralist(s) and Houseman(s): Surgeon(s) and Role: * Harsh Coffey MD [...] the bladder with fluoroscopy. An angled open-ended (Newnan) catheter was passed over the stiff glide [...] Diagnosis: Post-Op Di (more content not included)... NormalProvidence HospitalGICFL PATHOLOGYon 80-04-7393AWPH REPORTNormal [facility] HospitalComment on above:Order Comment: Specimen Type: DEVICE SPECIMENOrdering Facility: [facility] Address: [address] [place], [place] [address]Result Comment: Surgical Pathology Report Case: [id number] Authorizing Provider: Harsh Coffey MD Collected: 05/22/2022 03:11 PM Ordering Location: Admitting Received: 05/22/2022 04:23 PM Pathologist: Daxa Barlow MD Specimen: HARDWARE, Right Double J Stent for grossPerformed By: #### S ####[facility] [id number] [address] HISTORYNormParkwood Hospital on above:Order Comment: Specimen Type: DEVICE SPECIMENOrdering Facility: [facility] Address: [address] [place], [place] [address]Result Comment: Pre-op diagnosis: Nephrolithiasis [N20.0]Performed By: #### S ####[facility]IA [id number] [address]ETNoACMC Healthcare System on above:Order Comment: Specimen Type: DEVICE SPECIMENOrdering Facility: [facility] Address: [address] [place], [place] [address]Result Comment: A. Site not specified, hardware removal: -Grossly unremarkable stent (gross examination only). JKD/KSZ 05/23/2022 Performed By: #### S ####[facility]IA [id number] [address] PERFORMING LABSelect [facility] on above:Order Comment: Specimen Type: DEVICE SPECIMENOrdering Facility: [facility] Address: [address] [place], [place] [address]Result Comment: Diagnostic interpretation performed at [facility], [address] [place] [address] CLIA# [id number] Deposit Clerk: Manuel H. Henricks, M.D.Performed By: #### S ####[facility] [id number] [place] [address] [place] AMERICAGROSS DESCRIPTIONA. HARDWARENormalCSt. Charles HospitalComment on above:Order Comment: Specimen Type: DEVICE SPECIMENOrdering Facility: [facility] Address: [address] [place] [address]Result Comment: Received in formalin, labeled right double-J stent is a royal plastic stent measuring 42 cm in length. There is no soft tissue present. The specimen is reviewed with Dr. Barlow. Nosections are submitted. KSZ May 23, 2022 10:55 AM Gross examination performed at [facility], [address] [place], [place] [address]Performed By: #### S ####[facility] [id number] [address] OF ROSMERY XR CHEST 1V FRONTAL PORTon [id number] CHEST 1V FRONTAL PORT* * *Final Report* * * DATE OF [...] follow-up PA and lateral recommended when possible. Card Hanger: JONAH Transcribe Date/Time: May 22 2022 5:38P Dictated by : JACKY LI MD This examination was interpreted and the report reviewed and electronically signed by: BETH LOMBARDI MD on May 22 2022 5:55PM EST [id number] Hospital [facility]ima COMPLETEon 05-18-2022 ECG COMPLETEVentricular Rate : 98 BPM Atrial Rate : 98 BPM P-R Interval : 196 ms QRS Duration : 88 ms Q-T Interval : 354 ms QTC Calculation(Bazett) : 451 ms Calculated P [place] : 6 degrees Calculated R [place] : 44 degrees Calculated T [place] : 31 degrees NORMAL SINUS RHYTHM NORMAL ECG Confirmed by NABEEL DIAZ MD ([id number]) on 05/21/2022 12:34:10 PM NAME : TARAS HAYWARD PID : [id number] : 1970 Gender : Male Race : ORD : [id number] Procedure Date : May 18 2022 14:39:40 Edit Date : May 21 2022 12:34:11 Diagnosis: NORMAL SINUS RHYTHM NORMAL ECG Confirmed by NABEEL DIAZ MD ([id number]) on 05/21/2022 12:34:10 PM Test Reason : Location : 119 : A17 A17 Overread By : NABEEL DIAZ MD Edited By : NABEEL DIAZ MD Referred By : CYNTHIA BLACKWOOD Acquired by : KELLEY PIRESOhioHealth Grove City Methodist HospitalHISTORY PHYSICALon [id number] PHYSICALHNO ID: [id number] Author: Cynthia Blackwood APRN.INCLUSION SPECIAL EDUCATION TEACHER Service: ? Author Type: Nurse Practitioner Type: [...] his first stone s/p gastric bypass in 2016. PMH DM2, anxiety, HLN and obesity. He [...] fevers. Neurological: No history of TIA's, stroke, DENTAL OFFICE RECEPTIONIST tumor, impaired sensorium, hemiplegia, paraplegia or quadraplegia. [...] CAD, chest pain, CHF, DVT/PE, hyperlipidemia, recent MD and murmur/valvular heart disease. GI: No history [...] tablet Take by mout (more content not included)...NormalOhiohealth Berger HospitalHbA1c (Bld)on 34-78-2872Ftdpwgd glucose Estimated from glycated hemoglobin (Bld) [Mass/Vol]114 mg/dLNormal [facility] Berger HospitalComment on above:Order Comment: Specimen Type: BLOOD SPECIMENOrdering Facility: [facility] Address:[place] [address]Vtjgtx Comment: eAG: (Estimated average glucose) is a calculated value from HgbA1c and is direct marketing representative of the average blood glucose level in the last 2-3 month period.Performed By: #### 58473-0 ####[facility] [id number] [place] [id number] [place] WDUIWSXWjS4b (Bld) [Mass fraction]5.6 %Normal4.3-5.6 [facility] [place] [facility] on above:Order Comment: Specimen Type: BLOOD SPECIMENOrdering Facility: [facility] Address:[address] [place], [place] [address] Comment: Canadian Diabetes Association guidelines indicate that patients with HgbA1c in the range 5.7-6.4% are at increased risk for development of diabetes, and intervention by lifestyle modification may be beneficial. HgbA1c greater or equal to 6.5% is considered diagnostic of diabetes.Performed By: #### 66958-5 ####[facility] [id number] [place] [address] [facility] NUR[facility] PROGon [id number] AZEEM ID: [id number] Author: Edis Garza RN Service: Nursing Author Type: Registered Nurse Type: Nursing Progress Note Filed: 05/15/2022 11:17 AM Note Text: Pre-procedure instructions: Contacted Taras and teo appt. for neph tube w/PUP scheduled on Sunday05/22/22, at [facility]. I will wait while you get [...] signed. Arrival at 0600 to desk QB-1 ([facility]) and check in for your procedure. Occupational Therapy Teacher/Transportation: How will you be arriving for your procedure? Private car. If you will be arriving at [facility] via ambulance or public transportation, please call to discuss. You will need a responsible adult to accompany you to and from the procedure. Your commercial driver is required to stay with you until you are taken into the Procedure room. If you develop any of the following symptoms before your procedure, please call [phone]. Chills, joint pain, rash, sore throat, cough, [...] discuss. Written instructions provided to patient via [employer] If you have any questions please call [phone] NormalOhiohealth Berger HospitalCNPNon [id number] (UROJOSEPHN) HAYWARDTARAS Hurt ([id number]) 1970 M Date Time Provider Department 05/10/22 [...] afterwards, # 2 tab(s), Refills(s) 0, Pharmacy: [facility]/pharmacy #[id number] Start Date: 08/22/19 Status: Ordered - nystatin-triamcinolone [...] 05/09/2022 Encounter Status:Closed by DELLA FREDERICK on 05/10/22NormalCSt. Charles Hospital25([place])D3 [facility] [id number]-isdumlsmbhlaes D3 [Mass/Vol]15.9 ng/mLLow31.0-80.0Ohio[facility] Berger HospitalComment on above:Order Comment: Specimen Type: BLOOD SPECIMEN Order[facility] Address: [address] [place], [place] [address]Result Comment: Classification of 25 [place] Vitamin D status: Deficiency/Insufficiency: < or = 30 ng/ml. Sufficiency/Optimal Levels: 31-80 ng/mL Toxicity: > 100 ng/mL. Test performed by chemiluminescent immunoassay.Performed By: #### 88301-2 #### [facility] CLIA [id number] [address] [place] [address] [place] [address] [place] AMERICABacteria Ur Culton 82-10-0210Ivpbosum identified Cx Nom (U)ORGANISM ID: 1 >=100,000 CFU/ml Klebsiella pneumoniae ORGANISM ID: 1 (KLEBSIELLA PNEUMONIAE) ANTIBIOTIC INTERPRETATION SAI STATUS REFERENCE RANGE Ampicillin R >=32 F Susceptible <=8 , [...] S <=20 F Susceptible <=40 , Resistant >40AbnormalCSt. Charles HospitalComment on above:Performed By: #### 630-4 ####[facility] LABCLIA [id number] [place] [address] [place] CBC W Auto Differential panel (Bld)on [id number] (Bld) [#/Vol]<0.11 k/uLDayton Osteopathic HospitalBasophils/100 WBC (Bld)0.2 %[facility] HospitalDifferential cell count method Nom (Bld)AutoCleveland ClinicEosinophils (Bld) [#/Vol]0.05 10*3/uL<0.46 k/uLDayton Osteopathic HospitalEosinophils/100 WBC (Bld)0.6 %[facility] Erythrocyte distribution width (RBC) [Ratio]14.3 %11.5 - 15.0 %[facility] Hematocrit (Bld) [Volume fraction]46.1 %39.0 - 51.0 %[facility] HospitalHemoglobin (Bld) [Mass/Vol]14.8 g/dL13.0 - 17.0 g/dLDayton Osteopathic HospitalImmature granulocytes (Bld) [#/Vol]0.03 10*3/uL<0.10 k/uLDayton Osteopathic HospitalImmature granulocytes/100 WBC (Bld)0.4 %[facility] HospitalLymphocytes (Bld) [#/Vol]2.20 10*3/uL1.00 - 4.00 k/uL [facility] HospitalLymphocytes/100 WBC (Bld)26.4 %Providence HospitalH (RBC) [Entitic mass]28.0 pg26.0 - 34.0 pgCMcCullough-Hyde Memorial HospitalHC (RBC) [Mass/Vol]32.1 g/dL30.5 - 36.0 g/dLProvidence HospitalV (RBC) [Entitic vol]87.1 fL80.0 - 100.0 fLCleveland ClinicMonocytes (Bld) [#/Vol]0.74 10*3/uL<0.87 k/uLDayton Osteopathic Hospital Monocytes/100 WBC (Bld)8.9 %[facility] HospitalNeutrophils (Bld) [#/Vol]5.29 10*3/uL1.45 - 7.50 k/uLDayton Osteopathic HospitalNeutrophils/100 WBC (Bld)63.5 %[facility] HospitalNucleated RBC (Bld) [#/Vol]<0.01 k/uLDayton Osteopathic HospitalNucleated RBC/100 WBC (Bld) [Ratio]0.0 /100 WBCDayton Osteopathic HospitalPlatelet mean volume (Bld) [Entitic vol]10.3 fL9.0 - 12.7 fLClevelfirsthealth montgomery memorial hospital ClinicPlatelets (Bld) [#/Vol]295 10*3/uL150 - 400 k/uLDayton Osteopathic HospitalRBC (Bld) [#/Vol]5.29 10*6/uL4.20 - 6.00 m/St. Anthony's HospitalWBC (Bld) [#/Vol]8.33 10*3/uL3.70 - 11.00 k/St. Anthony's HospitalBasophils (Bld) [#/Vol]10*3/uLNormal<0.11CMercy Health St. [facility] on above:Order Comment: Specimen Type: BLOOD SPECIMEN Order[facility] Address: [address] [place], [place] [address]Performed By: #### 81185-1 #### [facility] CLIA [id number] [address] [place] [address] [place] AMERICABasophils/100 WBC (Bld)0.2 % NormalUniversity [facility]als [place] [facility] on above:Order Comment: Specimen Type: BLOOD SPECIMEN Ordering Facility[facility] Address: [address] [place], [place] [address]Performed By: #### 57535-6 #### [facility] CLIA [id number] [address] [place] [address] [place] AMERICADifferential cell count method Nom (Bld)AutoNormalCMercy Health St. Vincent Medical Center on above:Order Comment: Specimen Type: BLOOD SPECIMEN Ordering [facility] Address: [address] [place], [place] [address]Performed By: #### 92109-4 #### [facility] CLIA [id number] [address] [place] [address] [place] AMERICAEosinophils (Bld) [#/Vol] 0.05 10*3/uLNormal<0.46[facility] [place] [facility] on above:Order Comment: Specimen Type: BLOOD SPECIMEN Ordering [facility] Address: [address] [place], [place] [address]Performed By: #### 02132-9 #### [facility] CLIA [id number] [address] [place] [address] [place] AMERICAEosinophils/100 WBC (Bld)0.6 %NormalUniversity Hospitals [place] [facility] on above:Order Comment: Specimen Type: BLOOD SPECIMEN [facility] Address: [address] [place], [place] [address]Performed By: #### 27579-4 #### [facility] CLIA [id number] [address] [place] [address] [place] AMERICAErythrocyte distribution width (RBC) [Ratio]14.3 %Etwypy31.5-15.0[facility] [place] [facility] on above:Order Comment: Specimen Type: BLOOD SPECIMEN Ordering [facility] Address: [address] [place], [place] [address]Performed By: #### 81213-7 #### [facility] CLIA [id number] [address] [place] [address] [place] AMERICAHematocrit (Bld) [Volume fraction]46.1 %Lqrrtc67.0-51.0[facility] [place] [facility] on above:Order Comment: Specimen Type: BLOOD SPECIMEN Ordering [facility] Address: [address] [place] [address]Performed By: #### 24036-2 #### [facility] CLIA [id number] [address] [place] [address] [place] AMERICAHemoglobin (Bld) [Mass/Vol] 14.8 g/lWHtlpyv41.0-17.0[facility] [place] [facility] on above:Order Comment: Specimen Type: BLOOD SPECIMEN Order[facility] Address: [address] [place] [address]Performed By: #### 98018-6 #### [facility] CLIA [id number] [address] [place] [address] [place] AMERICAImmature granulocytes (Bld) [#/Vol]0.03 10*3/uLNormal<0.10[facility] [place] [facility] on above:Order Comment: Specimen Type: BLOOD SPECIMEN [facility] Address: [address]Performed By: #### 08770-4 #### [facility] CLIA [id number] [address] [place] [address] [place] AMERICAImmature granulocytes/100 WBC (Bld)0.4 %[facility] on above:Order Comment: Specimen Type: BLOOD SPECIMEN [facility] Address: [address]Performed By: #### 63225-4 #### [facility] CLIA [id number] [address] [place] [address] [place] AMERICALymphocytes (Bld) [#/Vol] 2.20 10*3/uLNormal1.00-4.00[facility] [place] [facility] on above:Order Comment: Specimen Type: BLOOD SPECIMEN [facility] Address: [address]Performed By: #### 92826-4 #### [facility] CLIA [id number] [address] [place] [address] [place] AMERICALymphocytes/100 WBC (Bld) 26.4 %NormalUniversity Hospitals [place] Medical Center on above:Order Comment: Specimen Type: BLOOD SPECIMEN [facility] Address: [address] [place] [id number] By: #### 51763-9 #### [facility] CLIA [id number] [address] [place] [address] [place] AMERICAMCH (RBC) [Entitic mass]28.0 seCcmsvx17.0-34.0[facility] on above:Order Comment: Specimen Type: BLOOD SPECIMEN Ordering Facility: [facility] Address: [address] [place], [place] [address]Performed By: #### 88595-2 #### [facility] CLIA [id number] [address] (RBC) [Mass/Vol]32.1 g/kMNovnft00.5-36.0[facility] on above:Order Comment: Specimen Type: BLOOD SPECIMEN Ordering Facility: [facility] Address: [address] [place] [phone] By: #### 35071-9 #### [facility] CLIA [id number] [address] (RBC) [Entitic vol]87.1 yJIzgume39.0-100.0[facility] on above:Order Comment: Specimen Type: BLOOD SPECIMEN Ordering Facility: [facility] Address: [address] [place] [phone] By: #### 55195-5 #### [facility] CLIA [id number] [address] STATES AMERICAMonocytes (Bld) [#/Vol]0.74 10*3/uLNormal<0.87[facility] on above:Order Comment: Specimen Type: BLOOD SPECIMEN Ordering Facility: [facility] Address: [address] [place] [phone] By: #### 63999-8 #### [facility] CLIA [id number] [address] [place] [address] [place] AMERICAMonocytes/100 WBC (Bld)8.9 % NormalUniversity Hospitals Cleveland Medical Center on above:Order Comment: Specimen Type: BLOOD SPECIMEN Ordering Facility: [facility] Address: [address] [place] [phone] By: #### 53291-6 #### [facility] CLIA [id number] [address] [place] [address] [place] AMERICANeutrophils (Bld) [#/Vol] 5.29 10*3/uLNormal1.45-7.50[facility] on above:Order Comment: Specimen Type: BLOOD SPECIMEN Ordering Facility: [facility] Address: [address] [place], [place] [address]Performed By: #### 45395-4 #### [facility] CLIA [id number] [address] [place] [address] [place] AMERICANeutrophils/100 WBC (Bld) 63.5 %NormalUniversity Hospitals Cleveland Medical Center on above:Order Comment: Specimen Type: BLOOD SPECIMEN Ordering Facility: [facility] Address: [address] [place], [place] [address]Performed By: #### 83249-3 #### [facility] CLIA [id number] [address] [place] [address] [place] AMERICANucleated RBC (Bld) [#/Vol] 10*3/uLNormal<0.01[facility] on above:Order Comment: Specimen Type: BLOOD SPECIMEN Ordering Facility: [facility] Address: [address] [place] [address]Performed By: #### 26049-1 #### [facility] CLIA [id number] [address] [place] [address] [place] AMERICANucleated RBC/100 WBC (Bld) [Ratio]0.0 /[address] [facility] on above:Order Comment: Specimen Type: BLOOD SPECIMEN Ordering Facility: [facility] Address: [address] [place] [phone] By: #### 62361-8 #### [facility] CLIA [id number] [address] [place] [address] [place] AMERICAPlatelet mean volume (Bld) [Entitic vol]10.3 fLNormal9.0-12.7[facility] Clinic ClevelandComment on above: Order Comment: Specimen Type: BLOOD SPECIMEN Ordering Facility[facility] Address: [address] [place], [place] [address]Performed By: #### 45195-6 #### [facility] CLIA [id number] [address] [place], [place] [address]Platelets (Bld) [#/Vol]295 10*3/nNZqmjsq068-075GzuqngejaUniversity Hospitals [facility] Center on above:Order Comment: Specimen Type: BLOOD SPECIMEN Ordering Facility: [facility] Address: [address] [place], [place] [address]Performed By: #### 70958-8 #### [facility] CLIA [id number] [address] [place] [address] (Bld) [#/Vol]5.29 10*6/uLNormal4.20-6.00[facility] on above:Order Comment: Specimen Type: BLOOD SPECIMEN Ordering [facility] Address: [address] [place], [place] [address]Performed By: #### 66949-4 #### [facility] CLIA [id number] [address] [place], [place] [address]W (Bld) [#/Vol]8.33 10*3/uLNormal3.70-11.00[facility] on above:Order Comment: Specimen Type: BLOOD SPECIMEN Ordering Facility: [facility] Address: [address] [place], [place] [address]Performed By: #### 30134-4 #### [facility] CLIA [id number] [address] [place], [place] [address]CNOVon 69-40-3825HCOOGbbsnv Visit (UROLMN) TARAS HAYWARD ([id number]) 1970 M Date Time Provider Department 05/09/22 1:00 PM HARSH COFFEY During your visit today, we recorded the following information about you: Pulse Blood pressure Weight Height 108/minute 130/88 161 kg 1.905 m Aislinn Mendoza MA 05/09/2022 4:29 PM Addendum LORRAINE Patient was assigned the Dr. Coffey patient instruction module from the [email or web address] platform. Patient was provided instructions on how to access [email or web address]. The patient was instructed to call the provider?s office with any questions. Patient states understanding and has the provider?s office number/contact information via [employer]. MARTÍNEZ Whitlock MD 05/09/2022 4:29 PM Signed [...] based on size, location, hounsfield units and wskr-kn-uuksp distance: 2% 3. Ureteroscopy - risks of [...] MD Director, Surgical Stone Disease [facility] [place] Pager [phone] 05/09/2022 Referring Provider: KORNAD LILLY [[id number]] Allergies As of Date: 05/09/2022 (No Known [...] [R82.90] Order(s):CBC + DIFF [SQCBCDIF] Order #: [id number] FUTURE COMP METABOLIC PANEL [SQCMP] Order #: [id number] FUTURE PTH INTACT BLD [SQPTHI] Order #: [id number] FUTURE VITAMIN D 25 HYDROXY [SQVITD] Order #: [id number] FUTURE URIC ACID BLOOD [SQURIC] Order #: [id number] FUTURE IR NEPHROSTOMY TUBE PLACE [7975356] Order #: [id number] REFER TO PACC - PRE [facility] [[id number]] Order #: [id number]: 1 FUTURE CONFIRM BLOOD TYPE [SQCONABO] Order #: [id number] FUTURE TYPE AND SCREEN,30 DAY [ZQAJWV13] Order #: [id number] FUTURE URINE CULTURE [SQURCUL] Order #: [id number]. #:[id number] Prescriptions as of 05/09/2022 - azithromycin (ZITHROMAX) [...] afterwards, # 2 tab(s), Refills(s) 0, Pharmacy: [facility]/pharmacy #[id number] Start Date: 08/22/19 Status: Ordered - nystatin-triamcinolone (MYCOLOG II (more content not included)...Normal [facility] HospitalCONFIR BLOOD TYPEon 89-79-3752UOOHGnmzefdpy ClinicRh Nom (Bld)PositiveDayton Osteopathic HospitalABOONormalOhiohealth Berger HospitalComment on above:Order Comment: Specimen Type: BLOOD SPECIMENOrdering Facility: [facility] Address:[address] [place], [place] [address]Performed By: #### CONABO ####[facility] BLOOD BANKCLIA [id number] [address] STATES OF [facility] HOSPITALRh Nom (Bld)PositiveNormal [facility] Berger HospitalComascension providence [facility] on above:Order Comment: Specimen Type: BLOOD SPECIMENOrdering Facility: [facility] Address:[address] [place], [place] [address]Performed By: #### CONABO ####[facility] BLOOD BANKCLIA [id number] [address] STATES OF AMERICAComprehensive metabolic 2000 panelon 54-48-2170Hulihor [Mass/Vol]4.2 g/dL 3.9 - 4.9 g/dLAmagon ClinicALP [Catalytic activity/Vol]87 U/L38 - 113 U/L Amagon ClinicALT [Catalytic activity/Vol]17 U/L10 - 54 U/LCleveland [facility] Anion gap [Moles/Vol]12 mmol/L9 - 18 mmol/LCleveland ClinicAST [Catalytic activity/Vol]15 U/L14 - 40 U/LCleveland ClinicBilirubin [Mass/Vol]0.8 mg/dL0.2 - 1.3 mg/dLAmagon ClinicCalcium [Mass/Vol]9.3 mg/dL8.5 - 10.2 mg/dLAmagon ClinicChloride [Moles/Vol]105 mmol/L97 - 105 mmol/LCleveland ClinicCO2 [Moles/Vol]24 mmol/L22 - 30 mmol/LCleveland ClinicCreatinine [Mass/Vol]0.98 mg/dL0.73 - 1.22 mg/dLDayton Osteopathic HospitalEstimated Glomerular Filtration Rate95 mL/min/1.73m>=60 mL/min/1.73mCleveland Rainy Lake Medical CenterGlucose [Mass/Vol]107 mg/jDZwvu12 - 99 mg/dLDayton Osteopathic HospitalPotassium [Moles/Vol]4.8 mmol/L3.7 - 5.1 mmol/L [facility]agon ClinicProtein [Mass/Vol]7.2 g/dL6.3 - 8.0 g/dLAmagon ClinicSodium [Moles/Vol]141 mmol/L136 - 144 mmol/LCleveland [facility] Medical CenterUrea nitrogen [Mass/Vol]17 mg/dL9 - 24 mg/dLAmagon ClinicAlbumin [Mass/Vol]4.2 g/dLNormal3.9-4.9 [facility] HospitalComment on above:Order Comment: Specimen Type: BLOOD SPECIMEN Ordering Facility: [facility] Address: [address] [place] [phone] By: #### 57895-8 #### [facility] CLIA [id number] [address] [address] [facility] OF AMERICAALP [Catalytic activity/Vol] 87 U/GVgtvss67-969FbregbsmkUniversity [facility]als [facility] on above:Order Comment: Specimen Type: BLOOD SPECIMEN Ordering Facility: [facility] Address: [address]Performed By: #### 44617-6 #### [facility] CLIA [id number] [address] [address] [place] OF AMERICAALT [Catalytic activity/Vol] 17 U/SYzjdez37-55EltdlvfnnUniversity Hospitals [facility] on above:Order Comment: Specimen Type: BLOOD SPECIMEN Ordering Facility: [facility] Address: [address]Performed By: #### 90808-2 #### [facility] CLIA [id number] [address] [place] [id number] [place] OF AMERICAAnion gap [Moles/Vol]12 mmol/LNormal9-18[facility] on above:Order Comment: Specimen Type: BLOOD SPECIMEN Ordering Facility: [facility] Address: [address] [place], [place] [address]Performed By: #### 95688-0 #### [facility] CLIA [id number] [address] [place] [address] [place] AMERICAAST [Catalytic activity/Vol] 15 U/GOnxwvw71-94PgocqtjnzUniversity Hospitals [facility] on above:Order Comment: Specimen Type: BLOOD SPECIMEN Ordering [facility]: [facility] Address: [address] [place] [phone] By: #### 39255-8 #### [facility] CLIA [id number] [address] [place] [id number] [place] AMERICABilirubin [Mass/Vol]0.8 mg/dLNormal0.2-1.3CMercy Health St. [facility] on above:Order Comment: Specimen Type: BLOOD SPECIMEN Ordering Facility: [facility] Address: [address] [place] [phone] By: #### 06786-3 #### [facility] CLIA [id number] [address] [place] [address] [place] AMERICACalcium [Mass/Vol]9.3 mg/dL Normal8.5-10.2CMercy Health St. [facility] on above:Order Comment: Specimen Type: BLOOD SPECIMEN Ordering Facility: [facility] Address: [address] [place], [place] [address]Performed By: #### 35075-2 #### [facility] CLIA [id number] [address] [place] [address] [place] AMERICAChloride [Moles/Vol]105 mmol/CYfdipr00-095EhyrzdwoeUniversity Hospitals [facility] on above:Order Comment: Specimen Type: BLOOD SPECIMEN Ordering Facility[facility] Address: [address] [place], [place] [address]Performed By: #### 40654-8 #### [facility] CLIA [id number] [address] [place] [address] [place] AMERICACO2 [Moles/Vol]24 mmol/L Hqgioa57-82QizozsfciUniversity Hospitals [facility] Center on above:Order Comment: Specimen Type: BLOOD SPECIMEN Ordering Facility: [facility] Address: [address] [place] [address]Performed By: #### 31309-8 #### [facility] CLIA [id number] [address] [place] [address] [place] AMERICACreatinine [Mass/Vol]0.98 mg/dLNormal0.73-1.22[facility] on above:Order Comment: Specimen Type: BLOOD SPECIMEN Ordering Facility: [facility] Address: [address] [place], [place] [address]Performed By: #### 74049-9 #### [facility] CLIA [id number] [address] [place] [id number] [place] OF AMERICAESTIMATED GLOMERULAR FILTRATION RATE95 mL/min/1.73m???Normal>=60[facility] on above:Order Comment: Specimen Type: BLOOD SPECIMEN Ordering Facility: [facility] Address: [address] [place] [phone] Comment: Estimated Glomerular Filtration Rate (eGFR) is calculated using the 2020 CKD-EPI cre atinine equation. This equation utilizes serum creatinine, sex, and age as parameters. The creatinine assay has traceable calibration to isotope dilution- mass spectrometry. Refer to KDIGO guidelines for clinical interpretation. In patients with unstable renal function, e.g. those with acute kidney injury, the eGFR may not accurately reflect actual GFR.Performed By: #### 59988-3 #### [facility] CLIA [id number] [address] [place] [address] [place] AMERICAGlucose [Mass/Vol]107 mg/dL Fxsd64-90OyxuldcdiUniversity Hospitals [facility] Center on above:Order Comment: Specimen Type: BLOOD SPECIMEN Ordering [facility] Address: [address] [place] [address]Result Comment: The Canadian Diabetes Association (ADA) provides guidance for cutoff [...] Standards of Medical Care in Diabetes 2016, Canadian Diabetes Association. Diabetes Care. 2016.39(Suppl 1).Performed By: #### 57965-7 #### [facility] CLIA [id number] [address] [place], [place] [address] [place] AMERICAPotassium [Moles/Vol]4.8 mmol/LNormal3.7-5.1CMercy Health St. [facility] on above:Order Comment: Specimen Type: BLOOD SPECIMEN Ordering Facility[facility] Address: [address] [place], [place] [address]Performed By: #### 27640-6 #### [facility] CLIA [id number] [address] [place] [address] [place] AMERICAProtein [Mass/Vol]7.2 g/dL Normal6.3-8.0[facility] on above:Order Comment: Specimen Type: BLOOD SPECIMEN Ordering [facility] Address: [address] [place] [address]Performed By: #### 44982-3 #### [facility] CLIA [id number] [address] [place] [address] [place] AMERICASodium [Moles/Vol]141 mmol/L Egzccc793-760TqxugnvdtUniversity Hospitals [facility] Medical Center on above:Order Comment: Specimen Type: BLOOD SPECIMEN Order[facility] Address: [address] [place], [place] [address]Performed By: #### 18967-5 #### [facility] CLIA [id number] [address] [place] [address] [place] AMERICAUrea nitrogen [Mass/Vol]17 mg/dLNormal9-24[facility] on above:Order Comment: Specimen Type: BLOOD SPECIMEN Order[facility] Address: [address] [place] [address]Performed By: #### 31707-8 #### [facility] CLIA [id number] [address] [place] [id number] [place] OF AMERICAPTH INTACT BLDon 05-09-2022 Parathyrin.intact [Mass/Vol]80 pg/aTSgmc85 - 65 pg/mLCLake County Memorial Hospital - WestPT-Intact SerPl-mCncon 12-43-5769Fhmpfjppyw.intact [Mass/Vol]80 pg/xUKzru26-49LiizvzpeuUniversity Hospitals [facility] on above:Order Comment: Specimen Type: BLOOD SPECIMEN [facility] Address: [address] [place] [phone] By: #### 54276-4 #### [facility] CLIA [id number] [address] [place] [address] [place] AMERICATYPE AND SCREEN,30 DAYon 50-86-8716LFRDRylphxzoi Rain[facility] Lake Medical CenterHIstorical Ab Scr StatusNegativeDayton Osteopathic HospitalRh Nom (Bld)PositiveDayton Osteopathic HospitalABOONormalUniversity [facility] on above:Order Comment: Specimen Type: BLOOD SPECIMENOrdering Facility: [facility] Address:[address] [place], [place] [address]Performed By: #### [id number] ####CC [facility] BLOOD BANKCLIA [id number] [address] STREETHISTORICAL AB SCR STATUSNegative NormalUniversity Hospitals [facility] Center on above:Order Comment: Specimen Type: BLOOD SPECIMENOrdering Facility: [facility] Address:[address] [place], [place] [address]Performed By: #### [id number] ####[facility] BLOOD BANKCLIA [id number] [address]ETRh Nom (Bld)PositiveNormalCMercy Health St. [facility] on above: Order Comment: Specimen Type: BLOOD SPECIMENOrdering Facility: [facility] Address:[address] [place], [place] [address]Performed By: #### [id number] ####[facility] BLOOD BANKCLIA [id number] [address] STATES OF AMERICAURIC ACID BLOODon 94-57-3506Dbook [Mass/Vol]5.6 mg/dL4.0 - 8.1 mg/dLDayton Osteopathic HospitalURINALYSIS, REFLEX MICROSCOPICon 65-57-8637Fyuklasb LM.HPF (Urine sed) [#/Area]ManyAbnormalNone SeenUniversity Hospitals Cleveland Medical Center on above:Order Comment: Specimen Type: URINE SPECIMENOrdering Facility: [facility] Address:[address] [place], [place] [address]Performed By: #### [id number] ####[facility] LABCLIA [id number] [place] [address] [place] AMERICABilirubin Ql (U)NegativeNormalNegativeUniversity [facility]als [facility] on above:Order Comment: Specimen Type: URINE SPECIMENOrdering Facility: [facility] Address:[address] [place], [place] [address]Performed By: #### [id number] ####[facility] LABCLIA [id number] [place] [address] [place] ROSMERY Clarity (Unsp spec)CloudyAbnormalClearCMercy Health St. [facility] on above:Order Comment: Specimen Type: URINE SPECIMENOrdering Facility: [facility] Address:[address] [place], [place] [address]Performed By: #### [id number] ####[facility] LABCLIA [id number] [place] [address] [place] AMERICAColor (U)[facility] AbnormalYellowUniversity Hospitals [facility] Medical Center on above:Order Comment: Specimen Type: URINE SPECIMENOrdering Facility: [facility] Address:[address] [place], [place] [address]Performed By: #### [id number] ####[facility] LABCLIA [id number] [place] [address] [place] AMERICAGlucose Test strip (U) [Mass/Vol]NegativeNormal NegativeUniversity Hospitals Cleveland Medical Center on above:Order Comment: Specimen Type: URINE SPECIMENOrdering Facility: [facility] Address:[address] [place], [place] [address]Performed By: #### [id number] ####[facility] LABCLIA [id number] [place] [address] [place] AMERICAHemoglobin Ql (U)3+AbnormalNegativeUniversity [facility]als [facility] on above:Order Comment: Specimen Type: URINE SPECIMENOrdering Facility: [facility] Address:[address] [place], [place] [address]Performed By: #### [id number] ####[facility] LABCLIA [id number] [address] STREETKetones Ql (U)NegativeNormalNegMansfield Hospital Comment on above:Order Comment: Specimen Type: URINE SPECIMENOrdering Facility: [facility] Address:[address] [place] [address] Performed By: #### [id number] ####[facility] LABCLIA [id number] [address] STATES OF ROSMERY Leukocyte esterase Test strip Ql (U)500 Katrina/mLAbnormalNegSelect Medical Specialty Hospital - [facility] on above:Order Comment: Specimen Type: URINE SPECIMENOrdering Facility: [facility] Address:[address] [place], [place] [address]Performed By: #### [id number] ####[facility] LABCLIA [id number] [address] STATES OF ROSMERY Nitrite Ql (U)NegativeNormalNegMansfield HospitalComment on above: Order Comment: Specimen Type: URINE SPECIMENOrdering Facility: [facility] Address:[address] [place], [place] [address]Performed By: #### [id number] ####[facility] LABCLIA [id number] [address] OF [facility] HOSPITALpH (U)6.0 [pH]Normal 5.0-8.0[facility] on above:Order Comment: Specimen Type: URINE SPECIMENOrdering Facility: [facility] Address:[address] [place], [place] [address]Performed By: #### [id number] ####[facility] LABCLIA [id number] [place] [address] [place] [facility] HOSPITALProtein (U) [Mass/Vol]2+AbnormalNegativeUniversity Hospitals [facility] on above:Order Comment: Specimen Type: URINE SPECIMENOrdering Facility: [facility] Address:[address] [place], [place] [address]Performed By: #### [id number] ####[facility] LABIA [id number] [place] [address] [place] RBC LM.HPF (Urine sed) [#/Area]/[HPF]Abnormal0-3 /HPFOhiohealth Berger Hospital Comment on above:Order Comment: Specimen Type: URINE SPECIMENOrdering Facility: [facility] Address:[address] [place] [address] Performed By: #### [id number] ####[facility]IA [id number] [place] [address] [place] Specific gravity (U) [Rel density]1.095Duqckm3.005-1.030Ohiohealth Berger HospitalComment on above:Order Comment: Specimen Type: URINE SPECIMENOrdering Facility: [facility] Address:[address] [place], [place] [address]Performed By: #### [id number] ####[facility] LABIA [id number] [place] [address] [place] Urobilinogen Ql (U)NegativeNormalNegativeOhiohealth Berger HospitalComment on above:Order Comment: Specimen Type: URINE SPECIMENOrdering Facility: [facility] Address:[address] [place] [address]Performed By: #### [id number] ####[facility] LABIA [id number] [place] [address] [place] AMERICAWBC LM.HPF (Urine sed) [#/Area]/[HPF]Abnormal0-5 /HPFOhiohealth Berger HospitalComment on above:Order Comment: Specimen Type: URINE SPECIMENOrdering Facility: [facility] Address:[address] [place], [place] [address]Performed By: #### [id number] ####[facility] LABCLIA [id number] [facility] [place] [address] [place] AMERICAUrate SerPl-mCncon 02-49-3558Umwlr [Mass/Vol]5.6 mg/dLNormal4.0-8.1[facility] Comment on above:Order Comment: Specimen Type: BLOOD SPECIMEN [facility] Address: [address] [place], [place] [address]Performed By: #### 27820-6 #### [facility] CLIA [id number] [address] [facility] [place] [address] [place] AMERICAVITAMIN D 25 HYDROXYon 76-54-484648964844-ekwkyyiwgncyeo D3 [Mass/Vol]15.9 ng/mLLow31.0 - 80.0 ng/mLCLake County Memorial Hospital - WestXR KUB 1 VIEWon 48-73-1422LZ KUB 1 VIEWEXAMINATION: XR KUB 1 VIEW HISTORY: Kidney stone [...] Electronically authenticated by: INÉS WARREN Date: 2022-04-11 22:28[facility] AUTO DIFFon 63-19-0719ODPD #0.0 103/ulNormal0.0-0.1The [facility] County HospitalComment on above:Performed By: #### INFLUAB #### [facility] [address] [address] [address] Lissa Montalvophils/100 WBC (Bld)0.1 %Critically low0.2-2.0The [facility] HospitalComment on above:Performed By: #### INFLUAB #### [facility] [address] #0.0 103/ulNormal0.0-0.7The [facility] HospitalComment on above: Performed By: #### INFLUAB #### [facility] [address] [place] [address] Dr. Lissa Palmaosinophils/100 WBC (Bld)0.0 %Critically low0.9-7.0The [facility] HospitalComment on above:Performed By: #### INFLUAB #### [facility] [address] [place] [address] Dr. Lissa Palmarythrocyte distribution width (RBC) [Ratio]14.2 %Wrwvhp20.0-15.0 The [facility] County HospitalComment on above:Performed By: #### INFLUAB #### [facility] [address] [place] [address] Dr. Lissa SageHematocrit (Bld) [Volume fraction]38.0 %Critically low42.0-54.0 The [facility] County HospitalComment on above:Performed By: #### INFLUAB #### [facility] [address] [place] [address] Dr. Lissa SageHemoglobin (Bld) [Mass/Vol]12.0 g/dLCritically low14.0-18.0The [facility] HospitalComment on above:Performed By: #### INFLUAB #### [facility] [address] [place] [address] Dr. Lissa Peterson #0.09 10e3/ulCritically high0.00-0.03The [facility] Comment on above:Performed By: #### INFLUAB #### [facility] [address] [place] [address] Dr. Lissa Peterson %0.8 %Critically high0.0-0.5The [facility] HospitalComment on above:Performed By: #### INFLUAB #### [facility] [address] [place] [address] Dr. Lissa SampsonMPH #0.9 103/ulCritically low1.2-3.8The [facility] Comment on above:Performed By: #### INFLUAB #### [facility] [address] [place] [address] Dr. Lissa Sampsonmphocytes/100 WBC (Bld)7.2 %Critically low20.5-60.0The [facility] HospitalComment on above:Performed By: #### INFLUAB #### [facility] [address] [place] [address] Dr. Lissa BlueUAL DIFF REQNONormalThe [facility] HospitalComment on above: Performed By: #### INFLUAB #### [facility] [address] [place] [address] Dr. Lissa Noel (RBC) [Entitic mass]28.4 hyYvuyuh69.9-34.0The [facility] HospitalComment on above:Performed By: #### INFLUAB #### [facility] [address] [place] [address] Dr. Lissa Noel (RBC) [Mass/Vol]31.6 g/zSMhokgm26.9-35.2The [facility] HospitalComment on above:Performed By: #### INFLUAB #### [facility] [address] [place] [address] Dr. Lissa NoelV (RBC) [Entitic vol]89.8 zRGevecb82.0-94.0The [facility] HospitalComment on above:Performed By: #### INFLUAB #### [facility] [address] [place] [address] Dr. Lissa Moser #0.7 103/ulNormal0.3-0.8The [facility] HospitalComment on above:Performed By: #### INFLUAB #### [facility] [address] [place] [address] Dr. Lissa Pedersenocytes/100 WBC (Bld)5.6 %Normal1.7-12.0[facility] Comment on above:Performed By: #### INFLUAB #### [facility] [address] [place] [address] Dr. Lissa Coulter #10.3 103/ulCritically high1.4-6.5The [facility] Comment on above:Performed By: #### INFLUAB #### [facility] [address] [address] [address] Lissa Frankelutrophils/100 WBC (Bld)86.3 %Critically high43.0-75.0The [facility] on above:Performed By: #### INFLUAB #### [facility] [address] [place] [address] Dr. Lissa Negrolet mean volume (Bld) [Entitic vol]10.1 fLNormal9.5-13.5The [facility] HospitalComment on above:Performed By: #### INFLUAB #### [facility] [address] [place] [address] Dr. Lissa SagePLT198 103/rpOdwlmm683-497Ene [facility]Com[facility] on above: Performed By: #### INFLUAB #### [facility] [address] [place] [address] Dr. Lissa SageRBC4.23 106/ulCritically low4.70-6.10The [facility] HospitalComment on above:Performed By: #### INFLUAB #### [facility] [address] [place] [address] Dr. Lissa SageWBC11.9 103/ulCritically high4.0-11.0The [facility] HospitalComment on above:Performed By: #### INFLUAB #### [facility] [address] [place] [address] Dr. Lissa Dai URINEon [id number] URINEIsolate 1 Klebsiella pneumoniae >100,000 cfu/mL of ORGANISM [...] <=0.12 S F Nitrofurantoin 32 S F Trimethoprim/Sulfamethoxazole <=20 S FNormalThe [facility] County HospitalComment on above:Performed By: #### INFLUAB #### [facility] [address] [place] [address] Dr. Lissa SagePROF CHEM 8 (BAS METB)on 65-00-9460Yvtma gap [Moles/Vol]7.7 mmol/LNormalThe [facility] HospitalComment on above:Performed By: #### BMP #### [facility] [address] [place] [address] Dr. Lissa SageCalcium [Mass/Vol]8.6 mg/dLNormal8.5-10.1The [facility] Comment on above:Performed By: #### BMP #### [facility] [address] [place] [address] Dr. Lissa SageChloride [Moles/Vol]105 mmol/WJtkobv41-243Fmr [facility] Comment on above:Performed By: #### BMP #### [facility] [address] [place] [address] Dr. Lissa SageCO2 [Moles/Vol]26.9 mmol/MRcxlyt66.0-32.0The [facility] Comment on above:Performed By: #### BMP #### [facility] [address] [place] [address] Dr. Lissa SageCreatinine [Mass/Vol]1.07 mg/dLNormal0.70-1.30The [facility] HospitalComment on above:Performed By: #### BMP #### [facility] [address] [place] [address] Dr. Lissa PalmaGFR-AF SLOVAK>60Normal>=60The [facility] HospitalComment on above:Performed By: #### BMP #### [facility] [address] [place] [address] Dr. Lissa PalmaGFR-NON AF SLOVAK>60Normal>=60The [facility] HospitalComment on above:Performed By: #### BMP #### [facility] [address] [place] [address] Dr. Lissa SageGlucose [Mass/Vol]174 mg/dLCritically wesd39-517Otu [facility] HospitalComment on above:Performed By: #### BMP #### [facility] [address] [place] [address] Dr. Lissa Cruzassium [Moles/Vol]4.6 mmol/LNormal3.5-5.1The [facility] Comment on above:Performed By: #### BMP #### [facility] [address] [place] [address] Dr. Lissa Conraddium [Moles/Vol]135 mmol/LCritically smq245-549Vou [facility] HospitalComment on above:Performed By: #### BMP #### [facility] [address] [place] [address] Dr. Lissa Kelly nitrogen [Mass/Vol]17.0 mg/dLNormal7.0-18.0The [facility] HospitalComment on above:Performed By: #### BMP #### [facility] [address] [place] [address] Dr. Lissa Kelly nitrogen/Creatinine [Mass ratio]15.9 mg/mgNormalThe [facility] HospitalComment on above:Performed By: #### BMP #### [facility] [address] [place] [address] Dr. Lissa Mccarty AUTO DIFFon [id number] #0.0 103/ulNormal0.0-0.1The [facility] HospitalComment on above:Performed By: #### LIPID, CMP, TSH #### [facility] [address] [place] [address] Dr. Lissa SageBasophils/100 WBC (Bld)0.2 %Normal0.2-2.0The [facility] Comment on above:Performed By: #### LIPID, CMP, TSH #### [facility] [address] [place] [address] #0.0 103/ulNormal0.0-0.7The [facility] HospitalComment on above: Performed By: #### LIPID, CMP, TSH #### [facility] [address] [address] [address] Lissa Palmaosinophils/100 WBC (Bld)0.1 %Critically low0.9-7.0The [facility] HospitalComment on above:Performed By: #### LIPID, CMP, TSH #### [facility] [address] [place] [address] Dr. Lissa Palmarythrocyte distribution width (RBC) [Ratio]14.5 %Eykzju04.0-15.0 The [facility] HospitalComment on above:Performed By: #### LIPID, CMP, TSH #### [facility] [address] [place] [address] Dr. Lissa SageHematocrit (Bld) [Volume fraction]40.0 %Critically low42.0-54.0 The [facility] HospitalComment on above:Performed By: #### LIPID, CMP, TSH #### [facility] [address] [place] [address] Dr. Lissa SageHemoglobin (Bld) [Mass/Vol]12.6 g/dLCritically low14.0-18.0The [facility] HospitalComment on above:Performed By: #### LIPID, CMP, TSH #### [facility] [address] [place] [address] Dr. Lissa Peterson #0.09 10e3/ulCritically high0.00-0.03The [facility] Comment on above:Performed By: #### LIPID, CMP, TSH #### [facility] [address] [place] [address] Dr. Lissa Peterson %0.6 %Critically high0.0-0.5The [facility] HospitalComment on above:Performed By: #### LIPID, CMP, TSH #### [facility] [address] [place] [address] Dr. Lissa Haywood #1.5 103/ulNormal1.2-3.8The [facility] HospitalComment on above:Performed By: #### LIPID, CMP, TSH #### [facility] [address] [place] [address] Dr. Yilan ChangLymphocytes/100 WBC (Bld)11.0 %Critically low20.5-60.0The [facility] HospitalComment on above:Performed By: #### LIPID, CMP, TSH #### [facility] [address] [place] [address] Dr. Lissa Cuello DIFF REQNONormalThe [facility] HospitalComment on above: Performed By: #### LIPID, CMP, TSH #### [facility] [address] [place] [address] Dr. Lissa Noel (RBC) [Entitic mass]28.3 xnXuttek62.9-34.0The [facility] HospitalComment on above:Performed By: #### LIPID, CMP, TSH #### [facility] [address] [place] [address] Dr. Lissa Noel (RBC) [Mass/Vol]31.5 g/rVRnudlk05.9-35.2The [facility] HospitalComment on above:Performed By: #### LIPID, CMP, TSH #### [facility] [address] [place] [address] Dr. Lissa Noel (RBC) [Entitic vol]89.7 vMMpbrha20.0-94.0The [facility] HospitalComment on above:Performed By: #### LIPID, CMP, TSH #### [facility] [address] [place] [address] Dr. Lissa Moser #1.1 103/ulCritically high0.3-0.8ThMer[facility] Comment on above:Performed By: #### LIPID, CMP, TSH #### [facility] [address] [place] [address] Dr. Lissa Pedersenocytes/100 WBC (Bld)8.2 %Normal1.7-12.0[facility] Comment on above:Performed By: #### LIPID, CMP, TSH #### [facility] [address] [place] [address] Dr. Lissa Coulter #11.2 103/ulCritically high1.4-6.5The [facility] Comment on above:Performed By: #### LIPID, CMP, TSH #### [facility] [address] [place] [address] Dr. Lissa Frankelutrophils/100 WBC (Bld)79.9 %Critically high43.0-75.0The [facility] HospitalComment on above:Performed By: #### LIPID, CMP, TSH #### [facility] [address] [place] [address] Dr. Lissa SagePlatelet mean volume (Bld) [Entitic vol]10.0 fLNormal9.5-13.5The [facility] HospitalComment on above:Performed By: #### LIPID, CMP, TSH #### [facility] [address] [place] [address] Dr. Lissa SagePLT194 103/acNvlrul914-809Ecv [facility] HospitalComment on above: Performed By: #### LIPID, CMP, TSH #### [facility] [address] [place] [address] Dr. Lissa SageRBC4.46 106/ulCritically low4.70-6.10The [facility] HospitalComment on above:Performed By: #### LIPID, CMP, TSH #### [facility] [address] [place] [address] Dr. Lissa SageWBC14.0 103/ulCritically high4.0-11.0The [facility] HospitalCom[facility] on above:Performed By: #### LIPID, CMP, TSH #### [facility] [address] [place] [address] Dr. [facility]DOD[facility] GLUCOSEon [id number] [Mass/Vol]243 mg/dL Critically jbxw80-711Qqs [facility] HospitalComment on above:Performed By: #### LIPID, CMP, TSH #### [facility] [address] [place] [address] Dr. Lissa SageGlucose [Mass/Vol]132 mg/dLCritically feyq15-649Jju [facility] HospitalComment on above:Performed By: #### LIPID, CMP, TSH #### [facility] [address] [place] [address] Dr. Yilan ChangGlucose [Mass/Vol]123 mg/dLCritically zech23-501Psu [facility] HospitalComment on above:Performed By: #### LIPID, CMP, TSH #### [facility] [address] [address] [address] Lissa TorresF CHEM 8 (BAS METB)on 19-40-1551Mbasw gap [Moles/Vol]10.2 mmol/LNormalThe [facility] HospitalComment on above:Performed By: #### LIPID, CMP, TSH #### [facility] [address] [place] [address] Dr. Lissa SageCalcium [Mass/Vol]7.9 mg/dLCritically low8.5-10.1The [facility] Centerment on above:Performed By: #### LIPID, CMP, TSH #### [facility] [address] [place] [address] Dr. Lissa SageChloride [Moles/Vol]104 mmol/GUofuez15-564Qvo [facility] Comment on above:Performed By: #### LIPID, CMP, TSH #### [facility] [address] [place] [address] Dr. Lissa SageCO2 [Moles/Vol]25.4 mmol/HBdwuzd95.0-32.0The [facility] Comment on above:Performed By: #### LIPID, CMP, TSH #### [facility] [address] [place] [address] Dr. Lissa SageCreatinine [Mass/Vol]1.44 mg/dLCritically high0.70-1.30The [facility] HospitalComment on above:Performed By: #### LIPID, CMP, TSH #### [facility] [address] [place] [address] Dr. Alcaraz ChangEGFR-AF SLOVAK>60Normal>=60The [facility] Centerment on above:Performed By: #### LIPID, CMP, TSH #### [facility] [address] [place] [address] Dr. Lissa PalmaGFR-NON AF FPKILCVY88 mL/min/1.01o9Bmqskcvnfg low>=60The [facility] HospitalComment on above:Performed By: #### LIPID, CMP, TSH #### [facility] [address] [address] [address] Lissa SageGlucose [Mass/Vol]139 mg/dLCritically vlic13-308Oyq [facility] HospitalComment on above:Performed By: #### LIPID, CMP, TSH #### [facility] [address] [address] [address] Lissa SagePotassium [Moles/Vol]4.6 mmol/LNormal3.5-5.1The [facility] Comment on above:Performed By: #### LIPID, CMP, TSH #### [facility] [address] [address] [address] Lissa SageSodium [Moles/Vol]135 mmol/LCritically drh466-809Flo [facility] HospitalComment on above:Performed By: #### LIPID, CMP, TSH #### [facility] [address] [address] [address] Lissa SageUrea nitrogen [Mass/Vol]19.0 mg/dLCritically high7.0-18.0The [facility] HospitalComment on above:Performed By: #### LIPID, CMP, TSH #### [facility] [address] [address] [address] Lissa Kelly nitrogen/Creatinine [Mass ratio]13.2 mg/mgNormalThe [facility] HospitalComment on above:Performed By: #### LIPID, CMP, TSH #### [facility] [address] [address] [address] Lissa SageXR KUB 1 VIEWon [id number] KUB 1 VIEWEXAMINATION: XR KUB 1 VIEW HISTORY: Urolithiasis ; [...] Electronically authenticated by: INÉS WARREN Date: 2022-03-29 15:22NormalThMercy Health Fairfield HospitalAMYLASEon [id number] [Catalytic activity/Vol]21 U/L Critically tnc15-379Mfw [facility] HospitalComment on above:Performed By: #### INFLUAB #### [facility] [address] [place] [address] Dr. Lissa Mccarty AUTO DIFFon [id number] #0.0 103/ulNormal0.0-0.1The [facility] HospitalComment on above:Performed By: #### LIPID, CMP, TSH #### [facility] [address] [place] [address] Dr. Lissa SageBasophils/100 WBC (Bld)0.2 %Normal0.2-2.0The [facility] Comment on above:Performed By: #### LIPID, CMP, TSH #### [facility] [address] [place] [address] #0.1 103/ulNormal0.0-0.7The [facility] HospitalComment on above: Performed By: #### LIPID, CMP, TSH #### [facility] [address] [place] [address] Dr. Lissa Palmaosinophils/100 WBC (Bld)0.8 %Critically low0.9-7.0The [facility] HospitalComment on above:Performed By: #### LIPID, CMP, TSH #### [facility] [address] [address] [address] Lissa Palmarythrocyte distribution width (RBC) [Ratio]14.2 %Mukqrs66.0-15.0 The [facility] HospitalComment on above:Performed By: #### LIPID, CMP, TSH #### [facility] [address] [place] [address] Dr. Lissa SageHematocrit (Bld) [Volume fraction]46.8 %Fakmcb56.0-54.0The [facility] HospitalComment on above:Performed By: #### LIPID, CMP, TSH #### [facility] [address] [place] [address] Dr. Lissa SageHemoglobin (Bld) [Mass/Vol]14.6 g/aKVlmdnl78.0-18.0The [facility] HospitalComment on above:Performed By: #### LIPID, CMP, TSH #### [facility] [address] [place] [address] Dr. Lissa Peterson #0.04 10e3/ulCritically high0.00-0.03The [facility] Comment on above:Performed By: #### LIPID, CMP, TSH #### [facility] [address] [place] [address] Dr. Lissa Peterson %0.4 %Normal0.0-0.5The [facility] HospitalComment on above: Performed By: #### LIPID, CMP, TSH #### [facility] [address] [place] [address] Dr. Lissa Haywood #1.6 103/ulNormal1.2-3.8The [facility] HospitalComment on above:Performed By: #### LIPID, CMP, TSH #### [facility] [address] [place] [address] Dr. Lissa Hassanhocytes/100 WBC (Bld)17.6 %Critically low20.5-60.0The [facility] HospitalComment on above:Performed By: #### LIPID, CMP, TSH #### [facility] [address] [place] [address] Dr. Lissa BlueUAL DIFF REQNONormalThe [facility] HospitalComment on above: Performed By: #### LIPID, CMP, TSH #### [facility] [address] [place] [address] Dr. Lissa Hsu (RBC) [Entitic mass]28.0 hjCzjpob73.9-34.0The [facility] HospitalComment on above:Performed By: #### LIPID, CMP, TSH #### [facility] [address] [place] [address] Dr. Lissa Noel (RBC) [Mass/Vol]31.2 g/oKHguxmx05.9-35.2The [facility] HospitalComment on above:Performed By: #### LIPID, CMP, TSH #### [facility] [address] [place] [address] Dr. Lissa Noel (RBC) [Entitic vol]89.7 iOYhzbxq44.0-94.0The [facility] HospitalComment on above:Performed By: #### LIPID, CMP, TSH #### [facility] [address] [place] [address] Dr. Lissa Moser #0.3 103/ulNormal0.3-0.8The [facility] HospitalComment on above:Performed By: #### LIPID, CMP, TSH #### [facility] [address] [place] [address] Dr. Lissa Pedersenocytes/100 WBC (Bld)3.1 %Normal1.7-12.0The [facility] Comment on above:Performed By: #### LIPID, CMP, TSH #### [facility] [address] [place] [address] Dr. Lissa Coulter #7.2 103/ulCritically high1.4-6.5The [facility] Comment on above:Performed By: #### LIPID, CMP, TSH #### [facility] [address] [place] [address] Dr. Lissa Altamiranoophils/100 WBC (Bld)77.9 %Critically high43.0-75.0The [facility] HospitalComment on above:Performed By: #### LIPID, CMP, TSH #### [facility] [address] [place] [address] Dr. Lissa Quintero mean volume (Bld) [Entitic vol]10.0 fLNormal9.5-13.5The [facility] HospitalComment on above:Performed By: #### LIPID, CMP, TSH #### [facility] [address] [place] [address] Dr. Lissa SagePLT248 103/btQsullg075-055Lnn [facility] HospitalComment on above: Performed By: #### LIPID, CMP, TSH #### [facility] [address] [address] [address] Lissa SageRBC5.22 106/ulNormal4.70-6.10The [facility] HospitalComment on above:Performed By: #### LIPID, CMP, TSH #### [facility] [address] [address] [address] Lissa SageWBC9.3 103/ulNormal4.0-11.0The [facility] HospitalComment on above: Performed By: #### LIPID, CMP, TSH #### [facility] [address] [address] [address] Lissa SageCT ABD/PELVIS WO CONon [id number] ABD/PELVIS WO CONEXAMINATION: CT ABD/PELVIS WO CON, 03/28/2022 4:44 AM EDT HISTORY: [...] body habitus and exclusion from the scan odgnp-vp-zory. IMPRESSION: A 16 x 27 mm calculus [...] Electronically authenticated by: CHAPO TAYLOR Date: 2022-03-28 05:50NoSt. Francis HospitalCovid-19 PCR (CVDTBH)on [id number]-CoV-2 (COVID-19) RNA JOHN+probe Ql (Unsp spec)Not detectedNormalNOT DETECTEDThe [facility] Comment on above:Result Comment: When diagnostic testing is negative, the [...] for this test is supported by the Production Control Specialist of Health and Human Service's declaration that circumstances exist to justify the emergency use of in vitro diagnostics for the detection and/or diagnosis of the virus that causes COVID-19. This EUA will remain in effect for the duration of the COVID-19 declaration justifying emergency of IVDs, unless it is terminated or revoked by the FDA (after which the test may no longer be used).Performed By: #### LIPID, CMP, TSH #### [facility] [address] [address] [address] Lissa Birch URINE PROFILEon [id number] Ql (U)NegativeNormal NEGATIVECleveland Clinic Mercy Hospitalment on above:Performed By: #### LIPID, CMP, TSH #### [facility] [address] [address] [address] Lissa SageClarity (U)CLEARNormalCLEARAshtabula County Medical CenterComascension [facility] on above: Performed By: #### LIPID, CMP, TSH #### [facility] [address] [address] [address] Lissa SageColor (U)YELLOWNormalYELLOWAshtabula County Medical CenterComment on above: Performed By: #### LIPID, CMP, TSH #### [facility] [address] [address] [address] Lissa Scott micrscopic examination will be performed if indicated. NormalAshtabula County Medical CenterComment on above:Performed By: #### LIPID, CMP, TSH #### [facility] [address] [address] [address] Lissa SageGlucose Ql (U)NegativeNormalNEGATIVEAshtabula County Medical CenterComasc[facility] on above:Performed By: #### LIPID, CMP, TSH #### [facility] [address] [address] [address] Lissa SageHemoglobin Ql (U)SMALLAbnormalNEGATIVECorey Hospital on above:Performed By: #### LIPID, CMP, TSH #### [facility] [address] [address] [address] Lissa SageKetones Ql (U)NegativeNormalNEGATIVESalem City Hospital on above:Performed By: #### LIPID, CMP, TSH #### [facility] [address] [address] [address] Lissa ThorpeOCYTESSMALLAbnormalNEGATIVEAshtabula County Medical CenterComasc[facility] on above:Performed By: #### LIPID, CMP, TSH #### [facility] [address] [address] [address] Lissa Narayanan Ql (U)PositiveAbnormalNEGATIVEThe [facility] Comment on above:Performed By: #### LIPID, CMP, TSH #### [facility] [address] [place] [address] Dr. Lissa SagepH (U)6.0 [pH]Normal5-9The [facility] HospitalComment on above: Performed By: #### LIPID, CMP, TSH #### [facility] [address] [place] [address] Dr. Lissa SageSPEC GRAVITY>=1.940Exvdjtat6.005-<=1.025The [facility] Comment on above:Performed By: #### LIPID, CMP, TSH #### [facility] [address] [place] [address] Dr. Lissa Guerra PROTEINTRACENormalNEGATIVE/ TRACEThe [facility] HospitalComment on above:Performed By: #### LIPID, CMP, TSH #### [facility] [address] [place] [address] Dr. Lissa Trivedi MICRO INDINDICATEDNormalThMercy Health Fairfield HospitalComment on above: Performed By: #### LIPID, CMP, TSH #### [facility] [address] [place] [address] Dr. Lissa Michaudbilearl Qn (U)1.0 {Gurpreet'U}/dLNormal0.2 - 1.0[facility] CenterComment on above:Performed By: #### LIPID, CMP, TSH #### [facility] [address] [place] [address] Dr. Lissa SageLIPASEon 19-27-8916Hcxakf [Catalytic activity/Vol]64.0 U/L Critically low73.0-393.0The [facility] HospitalComment on above:Performed By: #### INFLUAB #### [facility] [address] [place] [address] Dr. Lissa SageSENATH OF CARE GLUCOSEon 92-67-6627Dwrppfa [Mass/Vol]114 mg/dL Critically ffcx82-925Iaz [facility] HospitalComment on above:Performed By: #### POCGLUC #### [facility] [address] [address] [address] Lissa SageGlucose [Mass/Vol]189 mg/dLCritically qevr98-224Dmg [facility] HospitalComment on above:Performed By: #### LIPID, CMP, TSH #### [facility] Laboratory [address] [address] [address] Lissa SagePROF 14(COMP METB)on [id number] [Mass/Vol]3.2 g/dL Critically low3.4-5.0The [facility] County HospitalComment on above:Performed By: #### INFLUAB #### [facility] [address] [address] [address] Lissa SageAlbumin/Globulin [Mass ratio]0.8 {ratio}NormalThe [facility] County HospitalComment on above:Performed By: #### INFLUAB #### [facility] [address] [address] [address] Lissa CooperP [Catalytic activity/Vol]87 U/RSjaeks58-706Yao [facility] HospitalComment on above:Performed By: #### INFLUAB #### [facility] [address] [address] [address] Lissa Fox [Catalytic activity/Vol]21 U/KHpqfaj15-44Iwt [facility] HospitalComment on above:Performed By: #### INFLUAB #### [facility] [address] [address] [address] Lissa Page gap [Moles/Vol]13.7 mmol/LNormalThe [facility] Comment on above:Performed By: #### INFLUAB #### [facility] [address] [address] [address] Lissa SageAST [Catalytic activity/Vol]14 U/LCritically wnc49-95Cpk [facility] HospitalComment on above:Performed By: #### INFLUAB #### [facility] [address] [address] [address] Lissa SageBilirubin [Mass/Vol]1.0 mg/dLNormal0.2-1.0[facility] Comment on above:Performed By: #### INFLUAB #### [facility] [address] [address] [address] Lissa SageCalcium [Mass/Vol]8.3 mg/dLCritically low8.5-10.1The [facility] HospitalComment on above:Performed By: #### INFLUAB #### [facility] [address] [address] [address] Lissa SageChloride [Moles/Vol]104 mmol/EWhylba03-669Ytl [facility] Comment on above:Performed By: #### INFLUAB #### [facility] [address] [address] [address] Lissa SageCO2 [Moles/Vol]22.7 mmol/PXuuoae49.0-32.0[facility] Comment on above:Performed By: #### INFLUAB #### [facility] [address] [address] [address] Lissa SageCreatinine [Mass/Vol]1.10 mg/dLNormal0.70-1.30The [facility] HospitalComment on above:Performed By: #### INFLUAB #### [facility] [address] [address] [address] Lissa PalmaGFR-AF SLOVAK>60Normal>=60The [facility] HospitalComment on above:Performed By: #### INFLUAB #### [facility] [address] [address] [address] Lissa PalmaGFR-NON AF SLOVAK>60Normal>=60The [facility] HospitalComment on above:Performed By: #### INFLUAB #### [facility] [address] [address] [address] Lissa SageGlobulin (S) [Mass/Vol]4.2 g/dLNormalThe [facility] HospitalComment on above:Performed By: #### INFLUAB #### [facility] [address] [address] [address] Lissa SageGlucose [Mass/Vol]148 mg/dLCritically wscm22-301Skb [facility] HospitalComment on above:Performed By: #### INFLUAB #### [facility] [address] [address] [address] Lissa SagePotassium [Moles/Vol]4.4 mmol/LNormal3.5-5.1[facility] Comment on above:Performed By: #### INFLUAB #### [facility] [address] [address] [address] Lissa SageProtein [Mass/Vol]7.4 g/dLNormal6.4-8.2[facility] Comment on above:Performed By: #### INFLUAB #### [facility] [address] [address] [address] Lissa SageSodium [Moles/Vol]136 mmol/ZXshbfb583-602Pkx [facility] Comment on above:Performed By: #### INFLUAB #### [facility] [address] [address] [address] Lissa SageUrea nitrogen [Mass/Vol]17.0 mg/dLNormal7.0-18.0The [facility] County HospitalComment on above:Performed By: #### INFLUAB #### [facility] [address] [address] [address] Lissa Kelly nitrogen/Creatinine [Mass ratio]15.5 mg/mgNoSt. Francis HospitalComment on above:Performed By: #### INFLUAB #### [facility] [address] [address] [address] Lissa Rocha MICROSCOPIC ONLYon [id number]R SEEN [facility] CenterComment on above:Performed By: #### LIPID, CMP, TSH #### [facility] [address] [address] [address] Lissa Jacinto identified Cx Nom (U)INDICATEDSt. Rita's HospitalComment on above:Performed By: #### LIPID, CMP, TSH #### [facility] [address] [address] [address] Lissa Burns SEENMer[facility], Formerly [facility]S Medical CenteralNONE SEENAshtabula County Medical CenterComment on above:Performed By: #### LIPID, CMP, TSH #### [facility] [address] [address] [address] Lissa Vigil LM Nom (Urine sed)NONE SEENNormalNONE SEENThe [facility] on above:Performed By: #### LIPID, CMP, TSH #### [facility] [address] [address] [address] Lissa Taylorthelial cells LM Ql (Urine sed)FEWAbnormalNONE SEEN /RAREThe [facility] HospitalComment on above:Performed By: #### LIPID, CMP, TSH #### [facility] [address] [address] [address] Lissa MirelesCOUSNONE SEENNormalNONE SEENThe [facility] HospitalComment on above:Performed By: #### LIPID, CMP, TSH #### [facility] [address] [address] [address] Lissa ParmarDtmigOKA2-98Lcsxyslg6-3Vuu [facility] Centerment on above:Performed By: #### LIPID, CMP, TSH #### [facility] [address] [address] [address] Lissa SageIdxffQIQ72-73ZfgbpqepJQWP SEENThe [facility] Campus Medical Centerment on above: Performed By: #### LIPID, CMP, TSH #### [facility] [address] [address] [address] Lissa Mccarty AUTO DIFFon [id number] #0.0 103/ulNormal0.0-0.1The [facility] Medical Centerment on above:Performed By: #### LIPID, CMP, TSH #### [facility] [address] [address] [address] Lissa SageBasophils/100 WBC (Bld)0.3 %Normal0.2-2.0The [facility] Comment on above:Performed By: #### LIPID, CMP, TSH #### [facility] [address] #0.1 103/ulNormal0.0-0.7The [facility] HospitalComment on above: Performed By: #### LIPID, CMP, TSH #### [facility] [address] [place] [address] Dr. Lissa Palmaosinophils/100 WBC (Bld)1.1 %Normal0.9-7.0[facility] Comment on above:Performed By: #### LIPID, CMP, TSH #### [facility] [address] [place] [address] Dr. Lissa Palmarythrocyte distribution width (RBC) [Ratio]13.4 %Ucfsgd46.0-15.0 The [facility] Centerment on above:Performed By: #### LIPID, CMP, TSH #### [facility] [address] [place] [address] Dr. Lissa SageHematocrit (Bld) [Volume fraction]44.9 %Gwroow65.0-54.0The [facility] Centerment on above:Performed By: #### LIPID, CMP, TSH #### [facility] [address] [place] [address] Dr. Lissa SageHemoglobin (Bld) [Mass/Vol]14.2 g/uCCkmtwq80.0-18.0The [facility] Centerment on above:Performed By: #### LIPID, CMP, TSH #### [facility] [address] [place] [address] Dr. Lissa Peterson #0.02 10e3/ulNormal0.00-0.03The [facility] Centerment on above:Performed By: #### LIPID, CMP, TSH #### [facility] [address] [place] [address] Dr. Lissa Peterson %0.3 %Normal0.0-0.5The [facility] Centerment on above: Performed By: #### LIPID, CMP, TSH #### [facility] [address] [place] [address] Dr. Lissa Haywood #2.8 103/ulNormal1.2-3.8The [facility] HospitalComment on above:Performed By: #### LIPID, CMP, TSH #### [facility] [address] [place] [address] Dr. Lissa Sampsonmphocytes/100 WBC (Bld)37.4 %Ubmyvs63.5-60.0The [facility] HospitalComment on above:Performed By: #### LIPID, CMP, TSH #### [facility] [address] [place] [address] Dr. Lissa Cuello DIFF REQNONormalThe [facility] HospitalComment on above: Performed By: #### LIPID, CMP, TSH #### [facility] [address] [place] [address] Dr. Lissa Noel (RBC) [Entitic mass]27.8 jiWkbmok00.9-34.0The [facility] HospitalComment on above:Performed By: #### LIPID, CMP, TSH #### [facility] [address] [place] [address] Dr. Lissa Noel (RBC) [Mass/Vol]31.6 g/hDMxjoqd10.9-35.2The [facility] HospitalComment on above:Performed By: #### LIPID, CMP, TSH #### [facility] [address] [place] [address] Dr. Lissa Bridges (RBC) [Entitic vol]87.9 wQQkwcps17.0-94.0The [facility] HospitalComment on above:Performed By: #### LIPID, CMP, TSH #### [facility] [address] [place] [address] Dr. Lissa Moser #0.5 103/ulNormal0.3-0.8The [facility] Centerment on above:Performed By: #### LIPID, CMP, TSH #### [facility] [address] [place] [address] Dr. Lissa Pedersenocytes/100 WBC (Bld)6.6 %Normal1.7-12.0[facility] Comment on above:Performed By: #### LIPID, CMP, TSH #### [facility] [address] [place] [address] Dr. Yilan ChangNEUT #4.1 103/ulNormal1.4-6.5The [facility] HospitalComment on above:Performed By: #### LIPID, CMP, TSH #### [facility] [address] [address] [address] Lissa Frankelutrophils/100 WBC (Bld)54.3 %Kblnib93.0-75.0The [facility] HospitalComascension [facility] on above:Performed By: #### LIPID, CMP, TSH #### [facility] [address] [address] [address] Lissa SagePlatelet mean volume (Bld) [Entitic vol]9.3 fLCritically low 9.5-13.5The [facility] HospitalComment on above:Performed By: #### LIPID, CMP, TSH #### [facility] [address] [address] [address] Lissa SagePLT286 103/kqNycerr591-249Njx [facility] HospitalComascension [facility] on above: Performed By: #### LIPID, CMP, TSH #### [facility] [address] [address] [address] Lissa SageRBC5.11 106/ulNormal4.70-6.10The [facility] HospitalComasc[facility] on above:Performed By: #### LIPID, CMP, TSH #### [facility] [address] [address] [address] Lissa SageWBC7.5 103/ulNormal4.0-11.0The [facility] HospitalComasc[facility] on above: Performed By: #### LIPID, CMP, TSH #### [facility] [address] [place] [address] Dr. Lissa SageGLYCOHEMOGLOBIN A1Con [id number] RECOMMENDATIONSEE BELOWRiverview Health InstituteComascension providence [facility] hospital on above:Result Comment: ADA RECOMMENDED LIMIT 4.0 - 6.0 ADA THERAPEUTIC TARGET < 7.0 ACTION SUGGESTED > 7.0Performed By: #### A1C #### [facility] [address] [place] [address] Dr. Lissa SageGlucose [Mass/Vol]128 mg/dLNormalThMercy Health Fairfield HospitalComment on above:Performed By: #### A1C #### [facility] [address] [address] [address] Lissa SageHbA1c (Bld) [Mass fraction]6.1 %Normal4.5-6.2The [facility] HospitalComment on above:Performed By: #### A1C #### [facility] [address] [address] [address] Lissa VillagranID PROFILEon [id number]-HDL RATIO NORMSEE [facility] HospitalComment on above:Result Comment: 3.3 - 4.4 LOW RISK 4.4 - 7.1 AVERAGE RISK 7.1 - 11.0 MODERATE RISK >11.0 HIGH RISKPerformed By: #### LIPID, CMP, TSH #### [facility] [address] [address] [address] Lissa Brooksesterol [Mass/Vol]137 mg/dLNormal<=200The [facility] Comment on above:Performed By: #### LIPID, CMP, TSH #### [facility] [address] [address] [address] Lissa Brooksesterol in HDL [Mass/Vol]41 mg/iBBngtax26-63Tzw [facility] HospitalComasc[facility] on above:Performed By: #### LIPID, CMP, TSH #### [facility] [address] [address] [address] Lissa SageCholesterol in LDL [Mass/Vol]70.4 mg/dLSt. Rita's HospitalComment on above:Performed By: #### LIPID, CMP, TSH #### [facility] [address] [address] [address] Lissa Brooksesterevy.total/Cholesterol in HDL [Mass ratio]3.3 {ratio} NormalThe [facility] on above:Performed By: #### LIPID, CMP, TSH #### [facility] [address] [place] [address] Dr. Lissa SageHDL NORMAL> or = 60 mg/dl - LOW CARDIOVASCULAR RISK <40 mg/dl - HIGH CARDIOVASCULAR RISKNoSt. Francis HospitalComment on above:Performed By: #### LIPID, CMP, TSH #### [facility] [address] [address] [address] Lissa SageLDL CALC NORMALSEE BELOWSt. Rita's HospitalComment on above:Result Comment: <100 mg/dl OPTIMAL 100 - 129 mg/dl NEAR OR ABOVE OPTIMAL 130 - 159 mg/dl BORDERLINE HIGH 160 - 189 mg/dl HIGH >190 mg/dl VERY HIGH Performed By: #### LIPID, CMP, TSH #### [facility] [address] [address] [address] Lissa SageTriglyceride [Mass/Vol]128 mg/dLNormal<=150The [facility] Comment on above:Performed By: #### LIPID, CMP, TSH #### [facility] [address] [address] [address] Lissa SageVLDL CALC25.6 mg/dLNoSt. Francis HospitalComment on above: Performed By: #### LIPID, CMP, TSH #### [facility] [address] [place] [address] Dr. Lissa SagePROF 14(COMP METB)on [id number] [Mass/Vol]3.5 g/dLNormal 3.4-5.0The [facility] on above:Performed By: #### LIPID, CMP, TSH #### [facility] [address] [address] [address] Lissa SageAlbumin/Globulin [Mass ratio]0.9 {ratio}NormalThe [facility] HospitalComascension [facility] on above:Performed By: #### LIPID, CMP, TSH #### [facility] [address] [address] [address] Lissa Hayden [Catalytic activity/Vol]79 U/NKznlkd99-326Nql [facility] on above:Performed By: #### LIPID, CMP, TSH #### [facility] [address] [place] [address] Dr. Lissa Fox [Catalytic activity/Vol]28 U/YDqsrhf60-89Tjq [facility] HospitalComment on above:Performed By: #### LIPID, CMP, TSH #### [facility] [address] [address] [address] Lissa Page gap [Moles/Vol]10.5 mmol/LNormalThe [facility] Comment on above:Performed By: #### LIPID, CMP, TSH #### [facility] [address] [address] [address] Lissa SgaeAST [Catalytic activity/Vol]20 U/VIivvig66-26Hwu [facility] HospitalComment on above:Performed By: #### LIPID, CMP, TSH #### [facility] [address] [address] [address] Lissa SageBilirubin [Mass/Vol]0.7 mg/dLNormal0.2-1.0The [facility] Comment on above:Performed By: #### LIPID, CMP, TSH #### [facility] [address] [place] [address] Dr. Lissa SageCalcium [Mass/Vol]8.6 mg/dLNormal8.5-10.1[facility] Comment on above:Performed By: #### LIPID, CMP, TSH #### [facility] [address] [place] [address] Dr. Lissa SageChloride [Moles/Vol]101 mmol/LJnbugf76-103Ujh [facility] Comment on above:Performed By: #### LIPID, CMP, TSH #### [facility] [address] [place] [address] Dr. Lissa SageCO2 [Moles/Vol]28.6 mmol/ICbnjii69.0-32.0The [facility] Comment on above:Performed By: #### LIPID, CMP, TSH #### [facility] [address] [place] [address] Dr. Lissa SageCreatinine [Mass/Vol]0.87 mg/dLNormal0.70-1.30The [facility] HospitalComment on above:Performed By: #### LIPID, CMP, TSH #### [facility] [address] [place] [address] Dr. Yilan ChangEGFR-AF SLOVAK>60Normal>=60The [facility] HospitalComment on above:Performed By: #### LIPID, CMP, TSH #### [facility] [address] [place] [address] Dr. Lissa PalmaGFR-NON AF SLOVAK>60Normal>=60The [facility] HospitalComment on above:Performed By: #### LIPID, CMP, TSH #### [facility] [address] [place] [address] Dr. Lissa SageGlobulin (S) [Mass/Vol]3.9 g/dLNormalThe [facility] HospitalComment on above:Performed By: #### LIPID, CMP, TSH #### [facility] [address] [place] [address] Dr. Lissa SageGlucose [Mass/Vol]115 mg/dLCritically zeoi50-411Chn [facility] HospitalComment on above:Performed By: #### LIPID, CMP, TSH #### [facility] [address] [place] [address] Dr. Lissa SagePotassium [Moles/Vol]4.1 mmol/LNormal3.5-5.1The [facility] Comment on above:Performed By: #### LIPID, CMP, TSH #### [facility] [address] [place] [address] Dr. Lissa SageProtein [Mass/Vol]7.4 g/dLNormal6.4-8.2[facility] Comment on above:Performed By: #### LIPID, CMP, TSH #### [facility] [address] [place] [address] Dr. Lissa SageSodium [Moles/Vol]136 mmol/RYujnaz074-967Muk [facility] Comment on above:Performed By: #### LIPID, CMP, TSH #### [facility] [address] [place] [address] Dr. Lissa SageUrea nitrogen [Mass/Vol]19.0 mg/dLCritically high7.0-18.0The [facility] HospitalComment on above:Performed By: #### LIPID, CMP, TSH #### [facility] [address] [address] [address] Lissa SageUrea nitrogen/Creatinine [Mass ratio]21.8 mg/mgNormalThe [facility] HospitalComment on above:Performed By: #### LIPID, CMP, TSH #### [facility] [address] [address] [address] Lissa SageTSHofredrick 24-57-6114XZM4.650 uIU/mLNormal0.358-3.740[facility] CenterComment on above:Performed By: #### LIPID, CMP, TSH #### [facility] [address] [place], [place] [address] Dr. Lissa Sage Vital Signs Date TimeVital SignValuePerforming QtjszyjgtUqprcgks88-53-7638 09:05-0400Body ewndtb387.42 cmSelect [facility]06-[facility]2025 09:05-0400Body mass index (BMI) [Ratio]45.8 kg/h7DambjwqacSelect [facility]ty [facility]06-09-2025 09:05-0400Body .56 kgSelect [facility] Specialty [facility]06-09-2025 09:05-0400Diastolic blood amafzfaq23 mm[Hg][facility] 11-17-2024 09:05-0400Heart rate94 /[facility] 11-17-2024 09:05-0400Respiratory rate12 /[facility] 11-17-2024 09:05-0400Systolic blood pbfyjtcc300 mm[Hg][facility]01-10-2025 10:39-0500Body bkeaad114.42 cmSelect [facility]01-10-2025 10:39-0500Body mass index (BMI) [Ratio]44.7 kg/f6WkefwicpcSelect Medical Specialty Hospital [facility]01-10-2025 10:39-0500Body nmdsyb574.76 kgSelect [facility]ty [facility]01-10-2025 10:39-0500Diastolic blood wrhytdlu92 mm[Hg] [facility]01-10-2025 10:39-0500Heart rate76 /[facility]01-10-2025 10:39-0500Respiratory rate12 /minSelect Medical Specialty Hospital [facility]01-10-2025 10:39-0500Systolic blood sbrjuold621 mm[Hg] [facility]12-05-2024 14:54-0500Blood Pressure Location DONNA RIVERA [facility]12-05-2024 14:54-0500Diastolic blood qlqjglsa94 mm[Hg]DONNA RIVERA [facility]12-05-2024 14:54-0500Heart rate82 /minJEANIBAL RIVERA [facility]12-05-2024 14:54-0500Systolic blood jghjyjxc108 mm[Hg]DONNA RIVERA [facility]12-05-2024 09:12-0500Body wscigw351.42 cmSelect [facility]12-05-2024 09:12-0500Body mass index (BMI) [Ratio]44.4 kg/q2IzjehetpzSelect [facility]ty [facility]12-05-2024 09:12-0500Body aekkpo435.57 [facility]12-05-2024 09:12-0500Diastolic blood yybpngrx27 mm[Hg] [facility]12-05-2024 09:12-0500Heart bzmk947 /min [facility]12-05-2024 09:12-0500Respiratory rate12 /min [facility]12-05-2024 09:12-0500Systolic blood sysdiogd114 mm[Hg][facility]09-03-2024 14:31-0400Body .42 cmSelect [facility]09-03-2024 14:31-0400Body mass index (BMI) [Ratio]42.7 kg/i6DocgpyeyzSelect Medical [facility]ty Hospital [facility]09-03-2024 14:31-0400Body ivzorh503.07 kgSelect [facility]ty [facility]09-03-2024 14:31-0400Diastolic blood mm[Hg][facility]09-03-2024 14:31-0400 Heart rate93 /[facility]09-03-2024 14:31-0400 Respiratory rate12 /[facility]09-03-2024 14:31-0400 Systolic blood pbdybpyw404 mm[Hg][facility]06-26-2024 12:55-0400Body .5 Farhan Toussaint MD Work Phone: [facility]06-26-2024 12:55-0400Body mass index (BMI) [Ratio]38.75 kg/a4AthhrAngélica Toussaint MD Work Phone: [facility]06-26-2024 12:55-0400Body feoavy074.62 kgAngélica Toussaint MD Work Phone: [facility]05-22-2024 15:06-0400Body eeufsg441.42 cmSelect [facility]05-22-2024 15:06-0400Body mass index (BMI) [Ratio]41.8 kg/f4ShmonyijuSelect Medical Specialty Hospital [facility]05-22-2024 15:06-0400Body .78 kgSelect [facility]ty [facility]05-22-2024 15:06-0400Diastolic blood mgrvpjgo51 mm[Hg][facility] 10-31-2023 15:06-0400Heart rate98 /[facility] 10-31-2023 15:06-0400Respiratory rate12 /[facility] 10-31-2023 15:06-0400Systolic blood airkgafh512 mm[Hg][facility]05-14-2024 11:23-0400Diastolic blood esuursjs83 mm[Hg]DONNA RIVERA [facility]05-14-2024 11:23-0400Heart kvcq553 /Taina RIVERA [facility]05-14-2024 11:23-0400Respiratory rate16 /minJENNIFER MARQUISE [facility]05-14-2024 11:23-0400Systolic blood awkbdpuq363 mm[Hg]DONNA RIVERA [facility]03-27-2024 12:46-0400Body dyradp585.5 cmDavid Sell PA [facility]-27-2024 12:46-0400Body mass index (BMI) [Ratio]38.25 kg/b0Ywywt Sell PA Work Phone[facility]03-27-2024 12:46-0400Body .8 kgDavid Sell PA [facility] Phone[facility]03-27-2024 12:46-0400Diastolic blood eoubdecd77 mm[Hg]Darrell Sell PA [facility] Phone[facility]03-27-2024 12:46-0400Heart rate 93 /minDavid Sell PA [facility] Phone[facility]-27-2024 12:46-0400Systolic blood wnkfauow422 mm[Hg]Darrell Sell PA [facility] Phone[facility]01-22-2024 15:00-0500Body .42 cmBenjamin Ball Other [facility]01-22-2024 15:00-0500 Body mass index (BMI) [Ratio]43.14 kg/z4Mmcanmef Ball Other [employer] Other 01-22-2024 15:00-0500Body .33 kgBenjamin Ball Other [employer] Other 01-22-2024 15:00-0500Body nbqkei057.32 kgDO Awias Garcia Work Phone: [facility]01-22-2024 15:00-0500 Diastolic blood vivinkcb16 mm[Hg]Awais Garcia Other [facility]01-22-2024 15:00-0500 Respiratory rate12 /minBenjamin Ball Other [employer] Other 01-22-2024 15:00-0500Systolic blood betpepol984 mm[Hg] Awais Garcia Other [facility]12-20-2023 14:10-0500 Body dnozgl538.5 cmMarc Waggoner MD Work Phone: [facility] [employer] Yboxfa22-43-6647 14:10-0500Body mass index (BMI) [Ratio]39.53 kg/l4VuejzdvjjMarc Waggoner MD Work Phone: [facility] [employer] [id number] 14:10-0500Body ubngbj668.47 kgMarc Waggoner MD Work Phone: [facility] [employer] [id number] 14:10-0500Diastolic blood stkzcagn95 mm[Hg]Marc Waggoner MD Work Phone: [facility] [employer] Iuekdy80-45-7161 14:10-0500Heart rate 85 /minMarc Waggoner MD Work Phone: [facility] Kdmeyf60-33-1365 14:10-0500Systolic blood gzbvbicg663 mm[Hg]Marc Waggoner MD Work Phone: [facility] [id number] 10:07-0400Blood Pressure LocationJEMAMIPARMJIT RIVERA [facility]09-12-2023 10:07-0400Diastolic blood rvpkzjiz93 mm[Hg]DONNA MARQUISE [facility]09-12-2023 10:07-0400Heart rate88 /minJENNIFER MARQUISE [facility]09-12-2023 10:07-0400Systolic blood fcneuevt474 mm[Hg]DONNA RIVERA [facility]08-30-2023 13:45-0400Body fprhyg437.42 cmBenjamin Ball Other [employer] Other 08-30-2023 13:45-0400Body mass index (BMI) [Ratio] 37.81 kg/c7Xnmbuxle Ball Other [employer] Other 08-30-2023 13:45-0400Body lzpowm754 kgBenjamin Ball Other [employer] Other 08-30-2023 13:45-0400Diastolic blood luggwotj50 mm[Hg] Awais Ball Other [employer] Other 08-30-2023 13:45-0400Respiratory rate12 /minBenjamin Ball Other [employer] Other 08-30-2023 13:45-0400Systolic blood tdcvglon183 mm[Hg] Awais Ball Other [employer] Other 08-16-2023 18:56-0400Body adbcpammmyy12.8 [degF] PHYSICIAN NO [facility]08-16-2023 18:56-0400 Diastolic blood qqcnifii00 mm[Hg]PHYSICIAN NO [facility]08-16-2023 18:56-0400Heart rate91 /minPHYSICIAN [facility]08-16-2023 18:56-0400Respiratory rate18 /minPHYSICIAN [facility]08-16-2023 18:56-4929OfY2% (BldA) [Mass fraction]96 %PHYSICIAN NO [facility]08-16-2023 18:56-0400Systolic blood kyroxeou164 mm[Hg]PHYSICIAN NO [facility]08-15-2023 11:42-0400Body fousvh726.5 cmPHYSICIAN [facility]08-13-2023 05:16-0400Body .2 kg PHYSICIAN NO [facility]08-01-2023 15:15-0400Body nmmwsqbswmy91.3 [degF]PHYSICIAN NO [facility] 01-09-2023 15:15-0400Diastolic blood eyzxjhmi30 mm[Hg]PHYSICIAN NO [facility]08-01-2023 15:15-0400Heart rate82 /minPHYSICIAN [facility]08-01-2023 15:15-0400Respiratory rate 16 /minPHYSICIAN [facility]08-01-2023 15:15-0400 SaO2% (BldA) [Mass fraction]96 %PHYSICIAN NO [facility]08-01-2023 15:15-0400Systolic blood mm[Hg]PHYSICIAN NO [facility]08-01-2023 12:06-0400Body ytnvvv044.5 cm PHYSICIAN NO [facility]08-01-2023 09:32-0400Body krisbi946.5 cmPHYSICIAN [facility]08-01-2023 09:32-0400Body izaiqgsxluc73.9 [degF]PHYSICIAN NO [facility]08-01-2023 09:32-0400Body erbxqp158.95 kgPHYSICIAN [facility]08-01-2023 09:32-0400Diastolic blood mm[Hg]PHYSICIAN NO [facility]08-01-2023 09:32-0400 Heart rate90 /minPHYSICIAN NO [facility]08-01-2023 09:32-0400Respiratory rate22 /minPHYSICIAN NO [facility]08-01-2023 09:32-2815PrL5% (BldA) [Mass fraction]97 %PHYSICIAN [facility]08-01-2023 09:32-0400Systolic blood atwpidck065 mm[Hg]PHYSICIAN NO [facility]07-30-2023 05:10-0400 Body qzajwn135.4 kgPHYSICIAN NO [facility] 08-31-2022 09:30-0400Body jmbhia879.42 cmBenjamin Ball Other [employer] Other 03-23-2023 09:30-0400Body mass index (BMI) [Ratio]46.2 kg/e0Aguaqqlf Ball Other [employer] Other 03-23-2023 09:30-0400Body xeoerv405.85 kgBenjamin Ball Other [employer] Other 03-23-2023 09:30-0400Diastolic blood mm[Hg] Awais Ball Other [employer] Other 03-23-2023 09:30-0400Respiratory rate12 /minBenjamin Ball Other [employer] Other 03-23-2023 09:30-0400Systolic blood xkoolrkt373 mm[Hg] Awais Ball Other [employer] Other [id number] 13:44-0500Body .5 cmPacc 2 Work Phone: [facility]12-08-2022 13:44-0500Body temperature 97.5 [degF]Pacc 2 Work Phone: [phone]12-08-2022 13:44-0500Body snazdw770.39 kgPacc 2 Work Phone: [facility]12-08-2022 13:44-0500Diastolic blood filudzpd29 mm[Hg]Pacc 2 Work Phone: [facility]12-08-2022 13:44-0500Heart wrgv995 /minPacc 2 Work Phone: [facility]12-08-2022 13:44-3448KqY5% (BldA) [Mass fraction]96 %Pacc 2 Work Phone: [facility]12-08-2022 13:44-0500Systolic blood gwrrjils308 mm[Hg]Pacc 2 Work Phone: [facility]11-29-2022 13:06-0500Body gytoym011.5 cmHarsh Coffey MD Work Phone: [place] [address]-29-2022 13:06-0500Body ftmhox828.03 kgHarsh Coffey MD Work Phone: [facility]Cxgwzm90-51-4235 13:06-0500Diastolic blood qfmkhotl78 mm[Hg]Harsh Coffey MD Work Phone: [facility] WestXyljip47-25-7717 13:06-0500Heart fakl544 /minHarsh Coffey MD Work Phone: [place] [address]-29-2022 13:06-0500Systolic blood mm[Hg]Harsh Coffey MD Work Phone: [facility] - WestWaaihs92-06-2002 13:14-0400Blood Pressure LocationKonrad LILLY [facility] [place] 963191-02-2022 13:14-0400Diastolic blood jhgzsxey52 mm[Hg]Konrad LILLY [facility] [place] 963191-02-2022 13:14-0400Heart rate81 /minKonrad LILLY [facility] [place] 963191-02-2022 13:140400Respiratory rate16 /minKonrad LILLY [facility] [place] 963191-02-2022 13:14-0400Systolic blood dauqwwrc883 mm[Hg]Konrad LILLY [facility] Encounters Encounter DateEncounter TypeCare ProviderFacilityStart: 03-19-2025 End: 45-33-6109ehixusfpvoWqiasuqf Ball DO Work Phone: [facility] Work Phone: Start: 03-19-2025 End: 93-78-5861Rammfze encounter Keshawn Zayas MD-[facility] Work Phone: Start: 02-16-2025 End: 79-37-7832dxhlczkkeyZpktoifo Ball DO Work Phone: [facility] Work Phone: Start: 02-16-2025 End: 21-56-4795Rifwrcp encounter procedureBenjamin Ball DO-[facility] Work Phone: Start: 01-07-2025 End: 46-60-2504glfjpbcdjyNbjfnofe Ball DO Work Phone: [facility] Work Phone: Start: 01-07-2025 End: 42-87-4202Gkmqgdb encounter procedureBenjamin Ball DO-[facility] Work Phone: Start: 12-31-2024 End: 60-52-2440cauzhqmpfoHhlgiydd Ball DO Work Phone: [facility] Work Phone: Start: 12-31-2024 End: 25-21-6885Eyipokg encounter procedureBensalinas Garcia -[facility] Work Phone: Start: 12-22-2024 End: 43-54-9020vkkuopxvplSglrgnyk [place] DO Work Phone: [facility] Work Phone: Start: 12-22-2024 End: 00-75-6650Mfvfrmt encounter procedureDonna Davila APRN, CNP-[facility] Work Phone: Start: 12-11-2024 End: 27-27-7333mzroyhktpjQfgnkijj Ball DO Work Phone: [facility] Work Phone: Start: 12-11-2024 End: 85-21-8149Ilfryzv encounter procedureTova Zayas [facility] Work Phone: Start: 71-56-5837Jls-patient / Non-visitBenjamin Jose DO-[facility] Work Phone: Start: 79-34-3044Tzg-patient / Non-visitBenjamin Ball DO-[facility] Work Phone: Start: 11-17-2024 End: 10-35-3865jsefonqcfkUmsuixzpvMcKitrick Hospital Work Phone: Start: 11-17-2024 End: 68-62-5882Heptkmgjh for general adult medical examination without abnormal findingsZanesville City Hospitaltart: 11-17-2024 End: 13-53-9117Ajvvwwv encounter procedureMaurilio [facility] Work Phone: Start: 11-17-2024 End: 87-78-6663Qfeyofo encounter statusBefredrickSumma Health Akron Campustart: 06-20-2024 End: 31-08-3095orttxateueYyskshqluMcKitrick Hospital Work Phone: Start: 06-20-2024 End: 91-89-7593Upglxis encounter procedureFirhubbardstons Physician [facility] Work Phone: Start: 05-15-2024 End: 85-43-8024Ads Drop offDONNA RIVERA [facility] Start: 05-15-2024 End: 43-31-6098yffgycpnmfJD-C DONNA Licha RIVERAFacility:FTMCStart: 05-15-2024 End: 02-73-5851Aurtrij encounter procedureDONNA Hurt MARQUISE [facility] start: 05-15-2024 End: 82-33-8160Rzialze encounter procedureFircentra [facility] Work Phone: Start: 87-36-0755Hzv-patient / Non-visitFircentra [facility] Work Phone: Start: 02-12-2024 End: 83-86-0637xpljwqdineLyhiepcfsMcKitrick Hospital Work Phone: Start: 02-12-2024 End: 31-98-1393Xbvejpx encounter procedureFircentra [facility] Physician GroupDiley [facility] Work Phone: Start: 12-11-2023 End: 32-79-3983Vtupbo outpatient visit 15 minutesEmily [facility] VICE PRESIDENT OF BUSINESS DEVELOPMENT-INCLUSION SPECIAL EDUCATION TEACHER Work Phone: [facility] NeurologyComment on above: Sequelae, post-stroke (Primary Dx); Essential hypertensionStart: 12-11-2023 End: 03-01-7960nshrskqolbSIDOGLenox Hill Hospital Ambulatory PPGStart: 12-05-2023 End: 63-19-0835Sgkyfo outpatient visit 15 minutesAngélica Toussaint MD Work Phone: [facility] NeuroSurgeryComment on above: Pseudomeningocele (Primary Dx); S/P SAFETY DIRECTOR shunt; CSF leakStart: 12-05-2023 End: 97-06-3206gmunggyukcXYUOQPioneer Memorial Hospital Ambulatory PPGStart: 11-28-2023 End: 83-35-8790yjeeoyzqwaWXZAHOUAscension Macomb-Oakland Hospitaltart: 99-13-3718dtryyqjxkpCQSIGFEGLyman School for Boys Ambulatory PPGStart: 11-16-2023 End: 71-09-9361Ytpaoepcv encounterPaige Ross [facility] Neurology Start: 11-07-2023 End: 81-96-9306kpxybfcwwwRJWRSASAscension Macomb-Oakland Hospitaltart: 10-31-2023 End: 60-40-0725tljxtpaibjNilhlgkxwMercy Health [facility] Work Phone: Start: 10-31-2023 End: 44-48-0170Ysfiktp encounter procedureMaurilio Physician GroupDiley Ridge [facility] Center Work Phone: Start: 10-24-2023 End: 22-88-4719dfucgvywcpYPRNJXHAscension Macomb-Oakland Hospitaltart: 10-23-2023 End: 60-66-4625Gcdtgth encounter procedureDONNA RIVERA [facility] start: 69-75-0092Bpt-patient / Non-visitMaurilio Physician Group-[facility] Work Phone: Start: 09-05-2023 End: 40-06-0931uddcndhocvIKEQOKIYLyman School for Boys Ambulatory PPGStart: 09-05-2023 End: 04-80-0935Jnsput outpatient visit 10 minutesDabridgett PHILIPPE Work Phone: [facility] NeuroSurgeryComment on above: Pseudomeningocele (Primary Dx); S/P SAFETY DIRECTOR shuntStart: 08-27-2023 End: 01-68-8916gzqdzqfolyGSShriners Hospitals for Children - [place] Work Phone: [facility] Work Phone: Start: 08-27-2023 End: 15-25-1349Ftetumd encounter procedureDO Awais Garcia Work Phone: fircentra [facility] Physician Group-[facility] Work Phone: Start: 49-79-7546Poa-patient / Non-visitDO Awais Garcia Work Phone: [facility] Physician Group-[facility] vivit Work Phone: Start: 07-20-2023 End: 74-69-2583gbhhfacmtuKamqharv Ball Other [employer] Other Start: 39-79-3277Gdwkhgyec encounterBensalinas FergusonG [facility] ClinicStart: 07-02-2023 End: 59-26-3632wjguxhtkniIqubxlnx Ball Other [employer] Other Start: 33-30-2238Udjsooxlg for general adult medical examination without abnormal findingsBensalinas FergusonG [facility] ClinicStart: 68-10-5477Dczumvvr preventive med est patient 40-64yrsBenjamin MartyG [facility] ClinicStart: 07-02-2023 End: 80-22-7165Rbksqww encounter procedureDO Awais Garcia Work Phone: [facility]cent[facility] Physician Group-Start: 06-21-2023 End: 65-59-9511zdbjdeszjxIsscdzll Ball Other [employer] Other Start: 00-30-4811Cmrfapelh by computer linkBennetomin BallMANISHG [facility] ClinicStart: 06-19-2023 End: 46-22-1313wsddobsjoxMoeejjpd Ball Other [employer] Other Start: 13-06-1739Ejaiwmgaw by computer linkTannnetomin MartyG [facility] ClinicStart: 14-42-1711Pfmllvwjn encounterBensalinas [facility] ClinicStart: 89-87-7651Gnfjtuhdx encounterMegan Gill [facility]icians NeurologyStart: 06-16-2023 End: 83-59-0940afmwnfsuliAruxezdv Ball Other [employer] Other Start: 05-86-7032Xkudiltse by computer linkAwais Garcia Medical ClinicStart: 06-15-2023 End: 29-30-3848Xexjehz encounter procedureDO Awais Garcia Work Phone: [facility] Ctr-Aircraft Delivery Checker Amagon RdStart: 06-15-2023 End: 43-06-0312aclyqgupwaVlucw howsimpleUn[employer] Other Start: 01-61-2670Tvzuwfkxt by computer linkAwais Garcia Medical ClinicStart: 06-14-2023 End: 98-20-6107uvdubdbeurXvzedrtd Ball Other [facility] [employer] Other Start: 79-90-7207Edkctcuvb by computer linkAwais Garcia Medical ClinicStart: 06-08-2023 End: 34-79-4459rvmvggylztWqrdapfa Ball Other [facility] [employer] Other Start: 31-36-0887Ymfhxymuv encounterBensalinas Garcia Medical ClinicStart: 06-05-2023 End: 60-69-5136ykqhdzifmzXhenofhg Ball Other [facility] [employer] Other Start: 69-18-4434Lhcbcawcw by computer linkAwais Garcia Medical ClinicStart: 05-30-2023 End: 19-78-4943tfxgvvytdxAUBPTEKD E BALLSt Johnsbury HospitalMedica [facility] Ambulatory PPGStart: 05-30-2023 End: 93-48-8339Gaxkxd outpatient visit 15 minutesMarc Waggoner MD Work Phone: [facility] NeurologyComment on above: Sequelae, post-stroke (Primary Dx)Start: 05-30-2023 End: 52-73-7817xihsppztijWYRBOFWMSt. [facility] Health System Ambulatory PPGStart: 91-16-1522prvegqfmrfOVUAHYLH [facility] Ambulatory PPGStart: 05-21-2023 End: 09-96-9542xuifslysbdYiuuaqdq Ball Other [employer] Other Start: 52-20-8369Lcftnmdcs by computer linkBenjamin BallFPG [facility] ClinicStart: 05-15-2023 End: 48-72-1582vnbfsuoljuIvgqsdtp Ball Other [employer] Other Start: 03-83-6276Avgdfyowo by computer linkBenjamin BallFPG [facility] ClinicStart: 05-14-2023 End: 53-90-6133xutqjrjmnjBbqnctkl Ball Other [employer] Other Start: 99-01-2459Cmfgrzcgp by computer linkBenjamin BallFPG [facility] ClinicStart: 15-54-5613Wfxnzeaxs encounterPaniurka Liedicfrank Physicians NeurologyStart: 05-07-2023 End: 83-57-9221xccjohkvcuXfkaaysq Ball Other [employer] Other Start: 30-32-5084Uxqloyznl by computer linkBenjamin BallFPG [facility] ClinicStart: 04-09-2023 End: 42-92-3249danxrickjdHyxeveki Ball Other [employer] Other Start: 28-85-0280Wiocmbnqu by computer linkBenjamin BallFPG [facility] ClinicStart: 04-03-2023 End: 77-28-8832bfdybyfqvaTlgevouv Ball Other [employer] Other Start: 41-99-1318Jcopxuzyk by computer linkBenjamin BallFPG [facility] ClinicStart: 03-29-2023 End: 59-08-4758wnlvhjiavbWtofrbrs Ball Other [facility] [employer] Other Start: 35-95-9731Iyrotfdit by computer linkBenjamin BallFPG [facility] ClinicStart: 03-28-2023 End: 07-45-8949tyyyrteicuMnhqruff Ball Other [facility] [employer] Other start: 46-81-5504Ijnqsqhhf by computer linkBenjamin BallFPG [facility] ClinicStart: 03-26-2023 End: 91-31-9852zdntdsufdnWlizzdpz Ball Other [facility] [employer] Other Start: 67-62-6507Qyklckuyt by computer linkBenjamin BallFPG [facility] ClinicStart: 03-20-2023 End: 69-44-1694tsaugqsumtHntoumek Ball Other [facility] [employer] Other Start: 28-14-8708Rnprdqkir by computer linkBenjamin BallFPG [facility] ClinicStart: 03-02-2023 End: 19-32-7586zwafxkhcbfCywvcrep Ball Other [facility] [employer] Other start: 01-41-2879Hajqalwhu by computer linkBenjamin BallFPG [facility] ClinicStart: 02-28-2023 End: 99-51-3632spqochxauoYeadtvcp Ball Other [facility] [employer] Other Start: 58-19-8263Ezyxitqcf by computer linkBensalinas BallFPG [facility] ClinicStart: 02-23-2023 End: 56-61-9232frnwlcbuypPtvjueke Ball Other [facility] [employer] Other Start: 47-88-2557Nfmgsjfmx encounterBenjamin BallFPG [facility] ClinicStart: 02-21-2023 End: 24-76-2532gqrhqreanhHjmhxfcr Ball Other [facility] [employer] Other Start: 88-35-8303Smyqiuozd by computer linkBennetomin BallFPG [facility] ClinicStart: 02-20-2023 End: 08-94-0989Lja Drop offJENNIFER E MARQUISE [facility] Start: 02-20-2023 End: 73-50-9520Jsiicxe encounter procedureJENNIFER E MARQUISE [facility] Terra start: 02-16-2023 End: 76-62-4696bbohyuopuqWctcrwjm Ball Other [facility] [employer] Other Start: 72-96-7177Hxwcpvrlj encounterBenjamin BallFPG [facility] ClinicStart: 02-15-2023 End: 35-57-0957mbrqbjmiguRrvfkwkn Ball Other [facility] [employer] Other Start: 33-24-1246Fqnbhksgr by computer linkBennetomin BallFPG [facility] ClinicStart: 02-07-2023 End: 53-64-1323thywflqvxnUrcymppw Ball Other [employer] Other Start: 92-23-9466Ubyltx outpatient visit 25 minutes Awais BallFPG [facility] ClinicStart: 01-09-2023 End: 14-49-8211Hmxerligu department patient visitBensalinas GarciaFacility:[facility]tart: 01-09-2023 End: 63-94-8615Tgsdeaqhw department patient visitPHYSICIAN NO [facility] Ctr-Emergency Room Work Phone: Start: 01-03-2023 End: 58-86-8139Ufyqsncyjy and management of inpatientJoseph Harshad Facility:[facility]art: 01-03-2023 End: 93-14-0403Soytakvjnl and management of inpatientPHYSICIAN [facility] Work Phone: Start: 12-14-2022 End: 22-18-2367ttnfahzbbaCjbtzwzq Ball Other [employer] Other Start: 49-43-6188Qfdmfizsk encounterBenjamin BallFPG [facility] ClinicStart: 12-13-2022 End: 79-88-4678cudgfarfxgEqidgmyt Ball Other [employer] Other Start: 84-12-4999Zwedcqjie encounterBenjamin BallFPG [facility] ClinicStart: 12-05-2022 End: 88-62-8966jiyxeuaynnVdbrsccu Ball Other [employer] Other Start: 13-92-4042Bziahuuhw encounterBenjamin BallFPG [facility] ClinicStart: 12-01-2022 End: 63-29-3974mltpamftxjVdlrgcki Ball Other [employer] Other Start: 71-40-8590Bkkzqjlct encounterBenjamin BallFPG [facility] ClinicStart: 11-28-2022 End: 57-95-7904Entjknw encounter procedureGregory Robert LILLY [facility] Radha Start: 09-18-2022 End: 55-94-6200gthjalhmtvFzvcrjzr Ball Other [employer] Other Start: 59-69-5217Rmbhxpkgp encounterBensalinas Garcia Medical ClinicStart: 08-31-2022 End: 33-23-7785lphxmwzjphZjfplpsn Ball Other [facility] [employer] Other Start: 54-53-3945Zlocks outpatient visit 15 minutes Awais Ebenezer [facility] ClinicStart: 10-28-4601Sktiquhkv encounterBensalinas Garcia Medical ClinicStart: 08-07-2022 End: 82-08-8822olknwmztlsYU AWAIS BALLFacility:L9Iyisp: 07-21-2022 End: 80-15-2321cxsfdcxlezSMCWJZFM EBERLYFacility:O4Dtjtk: 07-19-2022 End: 87-87-6397Rnu Drop offGregchristine LILLY [facility] Start: 07-19-2022 End: 00-74-2928Dfxiyvn encounter procedureGregory P SLADE [facility] Faison Start: 05-31-2022 End: 58-88-4508Kzrmkbs encounter procedureGregory P SLADE [facility] Start: 05-25-2022 End: 48-53-5421Ccmlfmk encounter procedureGregory P SLADE [facility] Radha Start: 05-24-2022 End: 53-22-7635mlvavowkxgED WALT RICARDO .Facility:C3Jeotp: 05-22-2022 End: 79-25-0378qhtnszuxskHSNW NOBLEFacility:[facility]tart: 98-03-5515Xkvtyafzu for other preprocedural examinationBENJAMIN JOSEOhiohealth Berger HospitalStart: 05-18-2022 End: 96-94-3122uyickdtlmdEIXWMHDL E BALLFacility:[facility] Hospitaltart: 05-18-2022 End: 32-17-6176omgnuevbfqSODKGIVK E BALLFacility:[facility] Hospitaltart: 05-18-2022 End: 86-82-9595Flaxakzhv to [facility] Main 2 Work Phone: [facility] MAINStart: 05-18-2022 End: 55-19-3278ujkwaxjhbpMokd Main 2 Work Phone: Pre AnesthesiaComment on above:Pre-op evaluation (Primary Dx); Essential hypertension; BMI 40.0-44.9, adult (HCC); Prediabetes; Ureteral stent presentStart: 05-18-2022 End: 30-53-8600Otklpoesqjcyr examination [facility] Main 2 Work Phone: Pre AnesthesiaStart: 33-83-5300Msmshk Sandeep Coffey MD Work Phone: UrologyStart: 73-81-7801Rkodnmqjt encounterSkb Frederick RNUrologyComment on above:AppointmentStart: 05-09-2022 End: 18-99-1443fuojdkevixFBEG NOBLEFacility:[facility] Hospitaltart: 05-09-2022 End: 48-13-3830zypncnbsppGUVMGWE P COOKFacility:[facility] Hospitaltart: 05-09-2022 End: 53-40-6190Lbpulsy encounter Mellisa Coffey MD Work Phone: UrologyComment on above:Nephrolithiasis (Primary Dx); Family history of nephrolithiasis; BMI 40.0-44.9, adult (HCC); History of gastric bypass; Essential hypertension; Prediabetes; Bladder spasms; Ureteral stent present; Abnormal urinalysisStart: 04-12-2022 End: 50-84-0768Dzgegpv encounter procedureKonrad LILLY [facility] Start: 04-11-2022 End: 23-32-5098gllqmvypjcOCHIBTE P COOKFacility:B4Hjfnb: 04-06-2022 End: 61-70-5688yiejmbfkgqLX KULDIP ALEENA .Facility:H8Unzof: 03-29-2022 End: 04-47-4833Hmgnyduqae and management of inpatientKONRAD LILLYFacility:H1 Start: 03-84-3897Rrkzoknxk for general adult medical examination without abnormal findingsDR AWAIS GARCIARegency Hospital [facility] HospitalStart: 01-27-2022 End: 28-25-6235emoovhvyehHY BENJAMIN BALLFacility:N4Iwzfl: 01-27-2022 End: 42-67-5018Baceqzoie for general adult medical examination without abnormal findingsDR AWAIS GARCIAFacility:P6Xyjdv: 01-25-2022 End: 61-83-8280ytlgqhrqpdFN BENJAMIN BALLFacility:H1 Procedures DateProcedureProcedure DetailPerforming ClinicianStart: 07-24-7227Fhqcki-up visitFollow-upDAVID R SELLStart: 38-09-1897Dmoxi depression screening assessment Marc Waggoner MD Work Phone: Start: 26-87-6515Rjuhgs scan of lower limb veins PHYSICIAN NO FAMILYStart: 63-30-2320Navha culturePHYSICIAN NO FAMILYStart: 24-48-2754WRK of headPHYSICIAN NO FAMILYStart: 86-08-9915JF pre/post mri xray PHYSICIAN NO FAMILYStart: 70-85-3401ZO of head without contrastPHYSICIAN NO FAMILYStart: 63-28-9478Svfgpt scan of lower limb veinsPHYSICIAN NO FAMILYStart: 60-50-8510SF of head without contrastPHYSICIAN NO FAMILYStart: 25-55-4513TA of head without contrastPHYSICIAN NO FAMILYStart: 02-06-7504Oirvfdmv Sana Coffey MD Work Phone: start: 98-72-5381Sfopuirw screenBESHAZIA BALLComment on above:Order Comment: Specimen Type: BLOOD SPECIMENOrdering Facility: [facility] Address:[address] [place] [address] Performed By: #### [id number] ####CC [facility] BLOOD BANKCLIA [id number] [facility]OSPITALK R00[place]CGF[place] [address] [facility] AMERICAStart: 03-29-2022 Insertion of Other Device into Genitourinary Tract, Via Natural or Artificial Opening EndoscopicKRISTINA EBERLYStart: 15-04-0343GSY screeningGLEN KNIGHT Comment on above:Performed By: #### INFLUAB #### [facility] [address] [place] [address] Dr. Lissa SageStart: 84-35-0581Wfbtdkqolch removal of ureteric stentKonrad [employer] Start: 51-78-5484Hfmdiqohdp, device (physical object) [employer] Esophagogastrostomy, antesternal or antethoracicDillonKluster Gastric rstcv w/byp w/sm int rcnstj limit absrpjDillonKluster Hernia repairDillonKluster Surgical fistula (morphologic abnormality)DONNA RIVERA TurbinectomyDillonKluster Plan of Treatment DateCare ActivityDetailAuthorStart: 30-68-6740WOkX,Tdap and Td Vaccines (2 - Td or Tdap)DTaP,Tdap and Td Vaccines (2 - Td or Tdap)[facility] [employer] SystemStart: 57-49-1448VDKUVKWY SCREENDIABETES SCREENParkwood Hospitaltart: 82-52-1989Oomvt BMI ScreeningAdult BMI ScreeningProBryce Hospital Health SystemStart: 48-44-6973Tgsvebu ScreeningTobacco ScreeningProBryce Hospital Health SystemStart: 03-90-6917vtpaspgbwg AmbulatoryFacility:EU BellevueStart: 18-95-6602Rnbfh BMI ScreeningAdult BMI ScreeningProBryce Hospital Health SystemStart: 95-87-1679Cnxajve ScreeningTobacco ScreeningProBryce Hospital Health SystemStart: 89-70-0677Xttkk BMI ScreeningAdult BMI ScreeningProBryce Hospital Health SystemStart: 33-15-3730Qfxznkqomz ScreeningDepression ScreeningProMercy [facility] SystemStart: 35-90-5364Yfbbsvl ScreeningTobacco ScreeningKettering Health [facility] SystemStart: 31-88-8870Ctpbargse vaccinationInfluenza VaccineProMercy [facility]: [facility] End: 91-38-8729Mmvsrkknpfbr consultation with yjfqmoc3812/11/2023 9:30 AM EDT Telemedicine [facility] [address] [place] [phone] Xuan Schuster, VICE PRESIDENT OF BUSINESS DEVELOPMENT-INCLUSION SPECIAL EDUCATION TEACHER [address] [facility], [facility] [address] [place], [place] [id number] [facility]Start: 12-06-2023 End: 29-61-1502HD Head WO and W contrast IVCT brain with and without contrast Imaging Routine S/P SAFETY DIRECTOR shunt Expected: 12/06/2023 (Approximate),Expires: 12/05/2024[facility] Work Phone: Comment on above:Expected: 12/06/2023 (Approximate), Expires: 12/05/2024Start: 12-05-2023 End: 27-80-3001Sbnuyqz encounter muocakvba76/26/2024 12:30 PM EDT Office Visit [facility] [address] [place] [phone] Angélica Toussaint MD [address], [facility] [address] [place], [place] [id number] [facility]Start: 08-29-2023 End: 16-43-7732Eyfquew encounter gaqvtyuxq50/20/2024 12:50 PM EDT Office Visit [facility] [address] [place] [phone] Angélica Toussaint MD [address], [address] [address] [facility]geryStart: 67-14-7544JNSZZ-19 Vaccine ()COVID-19 Vaccine ()[facility]Start: 25-00-0412Hjyogbtcq vaccinationInfluenza VaccineKettering Health [facility] SystemStart: 42-58-0353SufdwkcbdSelect [facility] Start: 63-15-3792OquvibbicbiqChyqyfldzZanesville City Hospitaltart: 01-14-2023 Referral to neurologistZanesville City Hospitaltart: 01-11-2023 Referral to vascular surgeonZanesville City Hospitaltart: 01-03-2023 [facility]: 33-96-5088Ipytqogb admissionZanesville City Hospitaltart: 49-15-1068HkqpoqvelZanesville City Hospitaltart: 48-27-7999Dqpbcmojrylngf of varicella zoster vaccineZoster (Shingles) Vaccine (1 of 2)[facility] SystemStart: 76-17-1152AEBQC-19 VACCINE (5 - Booster for Moderna series)COVID-19 VACCINE (5 - Booster for Moderna series)[facility] Start: 05-18-2022 End: 54-72-5452Hztmtdyrcw A1c in BloodMer[facility] Work Phone: Comment on above:Expected: 05/18/2022, Expires: 07/18/2022Start: 31-95-2315GGLRNOMOFW ASSESSMENTDEPRESSION ASSESSMENTParkwood Hospitaltart: 76-53-4253AEJZFHFRL (FIT-DNA)COLOGUARD (FIT-DNA)[facility] Start: 77-68-4642EtewijmdscdMYBZXHZWTPRJntymfhep ClinicStart: 2017 COLORECTAL CANCER SCREENINGCOLORECTAL CANCER SCREENINGParkwood Hospitaltart: 74-23-4354NZ COLONOGRAPHYCT COLONOGRAPHYParkwood Hospitaltart: 39-38-2531YOWYZ OCCULT BLOODFECAL OCCULT BLOODParkwood Hospitaltart: 51-35-9949ZWCXTPQJJOFWE SIGMOIDOSCOPYParkwood Hospitaltart: 22-68-5993OZXYA SCREENLIPID SCREENParkwood Hospitaltart: 29-74-2936SIzP,Tdap and Td Vaccines (1 - Tdap)DTaP,Tdap and Td Vaccines (1 - Tdap)[facility]tontart: 88-43-0871Gimep microalbumin profileDTAP,TDAP,TD (1 - Tdap)[facility]: 67-64-3523Glipj BMI Follow Up PlanAdult BMI Follow Up PlanUNC Health Johnston Claytontart: 26-43-2589RABXZK PCP TEAM CHRONIC DISEASE VISITANNUAL PCP TEAM CHRONIC DISEASE VISITParkwood Hospitaltart: 60-73-4734NC CONTROLLED (<130/80)BP CONTROLLED (<130/80)[facility]: 95-44-3572ETZXBMVYV C SCREENINGHEPATITIS C SCREENINGParkwood Hospitaltart: 36-11-7507QGU SCREENINGHIV SCREENINGParkwood Hospitaltart: 73-53-1145TWNIHHUIZ B (1 of 3 - 3-dose series)HEPATITIS B (1 of 3 - 3-dose series)[facility] HospitalBacteria identified in Urine by CultureURINE CULTURE Microbiology Routine Abnormal urinalysis 05/09/2022 2:[address] [facility] Work Phone: comprehensive metabolic 2000 panel - Serum or Plasma [facility] End: 82-41-8172Ypwkzrsqid includes GFR, serumCreatinine includes GFR, serum Lab Routine S/P SAFETY DIRECTOR shunt 1 Occurrences starting 09/05/2023 until 09/04/2024[facility] CenterComment on above:1 Occurrences starting 09/05/2023 until 09/04/2024ECG COMPLETEECG COMPLETE ECG Routine Pre-op evaluation 05/18/2022 2:[address] [facility] Work Phone: IR NEPHROSTOMY TUBE PLACEIR NEPHROSTOMY TUBE PLACE Radiology Routine Nephrolithiasis Family history of nephrolithiasis BMI 40.0- 44.9, adult (HCC) History of gastric bypass Essential hypertension Prediabetes Bladder spasms Ureteral stent present Ordered: 2COhio[facility] Work Phone: comment on above:Ordered: 2Patient Education [facility] Work Phone: Patient referralUniversity Hospitals E[facility] Work Phone: [facility] Immunizations Immunization DateImmunizationNotesCare OitqllokObrayrcy43-90-1147FHUE-LkF-7 (COVID-19) mRNA-1273 vaccineWhitfield Medical Surgical HospitalKluster [facility] [place] 963190-26-2022influenza virus vaccine, unspecified formulationWhitfield Medical Surgical HospitalKluster [facility] [place] 963190-27-2021SARS-CoV-2 (COVID-19) mRNA-1273 vaccineWhitfield Medical Surgical HospitalEndra [facility]01-27-2021SARS-CoV-2 (COVID-19) mRNA-1273 vaccineWhitfield Medical Surgical HospitalEndra [facility] [place] 963192-30-2020SARS-CoV-2 (COVID-19) mRNA-1273 vaccineWhitfield Medical Surgical HospitalEndra [facility] [place] 963190-01-2020tetanus and diphtheria toxoids, adsorbed, preservative free, for adult use (5 Lf of tetanus toxoid and 2 Lf of diphtheria toxoid)Awais Garcia Other [facility]10-01-2019influenza virus vaccine, live, attenuated, for intranasal useWhitfield Medical Surgical HospitalEndra [facility] DatePayer CategoryPayerPolicy [id number] [id number] [id number] 2.0.1.718939.3.57[id number] 2.0.1.543176.3.57[id number] 2..1.637312.3.57[id number] 2..1.540534.3.57[id number] 2..1.918089.3.57[id number] 2..1.555060.3.579.2.26002-38-1927Rhzxbct4075939 2..1.729632.3.57[id number] 2..1.468381.3.579.[id number] 2..1.569537.3.57[id number] 2..1.446412.3.57[id number] 2.0.1.436272.3.579.2.319[id number] 2.0.1.492263.3.57[id number] 2.16.840.1.475108.3.57[id number] 2.840.1.255105.3.579.2.593100-19-2613Fsrysnl8544615 2.16.840.1.358533.3.579.2.772[id number] 2.840.1.306252.3.57[id number] 2.840.1.848298.3.579.2.338225-82-9703Rloeajy84380304 2.840.1.448558.3.579.[id number] 2.840.1.864312.3.579.[id number] 2.16840.1.148701.3.579.2.63570-42-1167Qlum-jcgSdhomya3198535 2.840.1.620838.[id number] 2.840.1.622450.3.579.2.531 [id number] 2.840.1.9321[id number] 2.840.1.643132.3.579.2.531 Social History DateTypeDetailFacilityStart: 08-26-2019 End: 17-23-7161Aypkpxs smoking statusNever smoked tobacco (finding)[facility]: 12-13-2022 End: 52-40-1824Xyh Assigned At BirthMalHolzer Health Systemtart: 05-09-2022 End: 16-52-1685Aqexnep use and exposureSmokeless tobacco non-userParkwood Hospitaltart: 05-09-2022 End: 51-84-8708Yqilzbu intakeCurrent drinker of alcohol (finding)[facility]: 05-09-2022 End: 20-36-7328Ytevsoo intakeParkwood Hospitaltart: 81-22-9411Tvnjhco Comment rareParkwood Hospitaltart: 38-20-6172Hph Assigned At BirthNot on fileParkwood Hospitaltart: 04-29-2022 End: 35-26-5278Zehhsaiz to SARS-CoV-2 (event)Not sureDayton Osteopathic Hospital Work Phone: Start: 44-84-0557Lumizhu Commentmay have a drink every 6 monthsDayton Osteopathic HospitalTobacco smoking statusNeverExecutive Urology of Medina HospitalyStart: 85-19-6183Pgp Assigned At BirthGrand Lake Joint Township District Memorial Hospitaltart: 06-20-2024 End: 41-96-7590HwuHyaz (finding)[facility]tart: 05-30-2023 End: 94-35-3876Iibbvaw intakeEx-drinker (finding)[facility] SystemHow often to you have a drink containing alcohol?2-4 times a monthProMedica Health SystemHow many standard drinks containing alcohol do you have on a typical day?1 or 2ProMeddecatur morgan hospital Health SystemHow often do you have 6 or more drinks on 1 occasion?NeverProBryce Hospital Health SystemStart: 69-24-6073Aqwaebg Commentsocial CentervilleedicRice [facility] System Medical Equipment Procedure CodeEquipment CodeEquipment Original TextEquipment IdentifierDatesVP shunt- Cert[employer] Inte[employer] Life ScienceFDAStart: 61-90-2341IL shunt- [employer] ScienceFDAStart: 09-21-2722AJ shunt- [employer] ScienceFDAStart: 88-29-5760CR shunt- [employer] ScienceFDAStart: 75-13-3004XT shunt- [employer] ScienceFDAStart: 81-96-4011YQ shunt- [employer] ScienceFDAStart: 99-11-7155Uuxmk Dura 3x3in Thk3.5mm Crnmxf Drmtrx-[place] + Npor Rgnrt Rpl [id number] - [id number]_newYvjnh: 76-99-7507Dlgab Shnt Cdmn Certas + Sphgrd Inln [facility] - [id number]_cnoCvxeo: 70-03-4802FX shunt- [employer] ScienceFDAStart: 74-82-8543HK shunt- [employer] ScienceFDAStart: 14-00-0826BW shunt- [employer] ScienceFDAStart: 82-90-0241HW shunt- [employer] ScienceFDAStart: 71-85-1844CI shunt- [employer] ScienceFDAStart: 60-66-5920KS shunt- [employer] ScienceFDAStart: 26-62-9890AB shunt- [employer] ScienceFDAStart: 12-30-2022 Goals DatePatient GoalDesired Activity/StatePersonal health goalComment on above: Evaluation of progress towards goal: Pt will have a safe DC. Functional Status NjuvNlircwzgxjJfkjjnIngajgqb07-54-9071Czvywhmdsp StatusN/AExecutive Urology of [facility]-14-2024Functional StatusN/AExec[facility] of [facility]ue09-12-2023Functional StatusN/A [facility]08-16-2023Functional statusPatient is Progressing Toward [facility] Work Phone: 1(499) 626-591107574942-35-8144Kumltftmyh statusPatient is Progressing Toward [facility] Work Phone: 1(353) 258-114902144793-06-9955Xwylpswfqy StatusN/AExecutive [facility]rology of [facility] Centerk12-15-2022Functional StatusN/AExec[facility] of [facility]y11-02-2022Functional StatusN/A [facility] Mental Status ZshqAyefeqocnmNbzubiObochiwv81-80-8031Bzxaqjrcf functionCognitive Status Patient is Progressing Toward [facility] Work Phone: 1(847) 448-797207-722547-85-3323Ivijnqogt functionCognitive Status Patient at [facility] Work Phone: Clinical Notes 03-29-2022 to 12-22-2024 Note Date & PnniMezuPlydejue96-84-1232 Evaluation note* Diagnosis Onset Date Resolution Status Admit Date Pernicious anemia acuteJuly 2024 4:06pm [facility] Work Phone: 1(456) 707-142607-03-2025 Evaluation note* Diagnosis Onset Date Resolution Status Admit Date Anemia acuteJuly 2024 3:36pmVitamin B12 deficiencynoneactiveJuly 2024 3:36pm Pernicious anemiaacuteJuly 2024 4:06pm [facility] Work Phone: 1(950) 355-795206-09-2025 Evaluation note* Diagnosis Onset Date Resolution Status Admit Date Cerebral atherosclerosis acuteJune 2024 8:54amElevated cholesterolacuteJune 2024 8:54am Essential hypertensionacuteJune 2024 8:54amIFG (impaired fasting glucose) acuteJune 2024 8:54amObesityacuteJune 2024 8:54amScreening for colon canceracuteJune 2024 8:54amScreening PSA (prostate specific antigen)acute November 17, 2024 8:54amSinus tachycardiaacuteJune 2024 8:54amWellness examinationacuteJune 2024 8:54am [facility] Work Phone: 1(136) 557-662006-09-2025 Evaluation note* Diagnosis Onset Date Resolution Status Admit Date Cerebral atherosclerosis acuteJune 2024 8:54amElevated cholesterolacuteJune 2024 8:54am Essential hypertensionacuteJune 2024 8:54amIFG (impaired fasting glucose) acuteJune 2024 8:54amObesityacuteJune 2024 8:54amScreening for colon canceracuteJune 2024 8:54amScreening PSA (prostate specific antigen)acute November 17, 2024 8:54amSinus tachycardiaacuteJune 2024 8:54amWellness examinationacuteCape Fear Valley [facility] Hospitale 2024 8:54amAnemiaacuteJuly 2024 3:36pmVitamin B12 deficiencynoneactiveDecember 11, 2024 3:36pm [facility] Work Phone: 1([phone]) 734-742706-09-2025 Evaluation note* Diagnosis Onset Date Resolution Status Admit Date Cerebral atherosclerosis acuteNovember 17, 2024 8:54amElevated cholesterolacuteNovember 17, 2024 8:54am Essential hypertensionacuteNovember 17, 2024 8:54amIFG (impaired fasting glucose) acuteNovember 17, 2024 8:54amObesityacuteNovember 17, 2024 8:54amScreening for colon canceracuteNovember 17, 2024 8:54amScreening PSA (prostate specific antigen)acute November 17, 2024 8:54amSinus tachycardiaacuteJun2024 8:54amWellness examinationacuteCape [facility] Hospital2024 8:54amAnemiaacuteJuly 2024 3:36pmVitamin B12 deficiencynoneactiveJuly 2024 3:36pmPernicious anemiaacuteJuly 2024 4:06pm [facility] Work Phone: 1(196) 464-542012-05-2024 Hospital Discharge instructions Patient Education 05/15/2024 15:29:40 Acute Urinary Retention, Male Acute Urinary Retention, Male Acute urinary retention is a condition in which a person is unable to pass urine or can only pass alittle urine. This condition can happen suddenly and last for a short time. If left untreated, it can become long-term (chronic) and result in kidney damage or other serious complications. What are the causes? This condition may be caused by: Obstruction or narrowing of the tube that drains the bladder (urethra). This may be caused by surgery, problems with nearby organs, or injury to the bladder or urethra. Problems with the nerves in the bladder. Tumors in the area of the pelvis, bladder, or urethra. Certain medicines. Bladder or urinary tract infection. Constipation. What increases the risk? This condition is more likely to develop in older men. As men age, their prostate may become largerand may start to press or squeeze on the bladder or the urethra. Other chronic health conditions can increase the risk of acute urinary retention. These include: Diseases such as multiple sclerosis. Spinal cord injuries. Diabetes. Degenerative cognitive conditions, such as delirium or dementia. Psychological conditions. A man may hold his urine due to trauma or because he does not want to usethe bathroom. What are the signs or symptoms? Symptoms of this condition include: Trouble urinating. Pain in the lower abdomen. How is this diagnosed? This condition is diagnosed based on a physical exam and your medical history. You may also have other tests, including: An ultrasound of the bladder or kidneys or both. Blood tests. A urine analysis. Additional tests may be needed, such as a CT scan, MRI, and kidney or bladder function tests. How is this treated? Treatment for this condition may include: Medicines. Placing a thin, sterile tube (catheter) into the bladder to drain urine out of the body. This is called an indwelling urinary catheter. After it is inserted, the catheter is held in place with a small balloon that is filled with sterile water. Urine drains from the catheter into a collection bag outside of the body. Behavioral therapy. Treatment for other conditions. If needed, you may be treated in the hospital for kidney function problems or to manage other complications. Follow these instructions at home: Medicines Take sypq-kqu-oezwypz and prescription medicines only as told by your health care provider. Avoid certain medicines, such as decongestants, antihistamines, and some prescription medicines. Do not take any medicine unless your health care provider approves. If you were prescribed an antibiotic medicine, take it as told by your health care provider. Do notstop using the antibiotic even if you start to feel better. General instructions Do not use any products that contain nicotine or tobacco. These products include cigarettes, chewing tobacco, and vaping devices, such as e-cigarettes. If you need help quitting, ask your health careprovider. Drink enough fluid to keep your urine pale yellow. If you have an indwelling urinary catheter, follow the instructions from your health care provider. Monitor any changes in your symptoms. Tell your health care provider about any changes. If instructed, monitor your blood pressure at home. Report changes as told by your health care provider. Keep all follow-up visits. This is important. Contact a health care provider if: You have uncomfortable bladder contractions that you cannot control (spasms). You leak urine with the spasms. Get help right away if: You have chills or a fever. You have blood in your urine. You have a catheter and the following happens: ?Your catheter stops draining urine. ?Your catheter falls out. Summary Acute urinary retention is a condition in which a person is unable to pass urine or can only pass alittle urine. If left untreated, this condition can result in kidney damage or other serious complications. An enlarged prostate may cause this condition. As men age, their prostate gland may become larger and may press or squeeze on the bladder or the urethra. Treatment for this condition may include medicines and placement of an indwelling urinary catheter. Monitor any changes in your symptoms. Tell your health care provider about any changes. This information is not intended to replace advice given to you by your health care provider. Make sure you discuss any questions you have with your health care provider. Document Revised: 02/16/2021 Document Reviewed: 02/16/2021 [employer] Patient Education 2023 [employer]. 05/15/2024 15:29:36 Kidney Stones, Gzor-qu-Ksjf Kidney Stones Kidney stones are rock-like masses [...] pee. The stone usually leaves your body through your pee. A doctor may need to take out the stone. What are the causes? Kidney stones may be caused by: Too much calcium in the body. This may be caused by too much parathyroid hormone in the blood. Uric acid crystals in the bladder. The body makes uric acid when you eat certain foods. Narrowing of one or both of the ureters. A kidney blockage that you were born with. Past surgery on the kidney or the ureters. What increases the risk? You are more likely to develop this condition if: You have had a kidney stone in the past. Other people in your family have had kidney stones. You do not drink enough water. You eat a diet that is high in protein, salt (sodium), or sugar. You are very overweight (obese). What are the signs or symptoms? Symptoms of a kidney stone may include: Pain in the side of the belly, right below the ribs. Pain usually spreads to the groin. Needing to pee often or right away. Pain when peeing. Blood in your pee. Feeling like you may vomit (nauseous). Vomiting. Fever and chills. How is this treated? Treatment depends on the size, location, and makeup of the kidney stones. The stones will often pass out of the body when you pee. You may need to: Drink more fluid to help pass the stone. ?In some cases, you may be given fluids through an IV tube at the hospital. Take medicine for pain. Change your diet to help keep kidney stones from coming back. Sometimes, you may need: A procedure to break up kidney stones using a beam of light (laser) or shock waves. Surgery to remove the kidney stones. Follow these instructions at home: Medicines Take spje-xqu-kdxecbm and prescription medicines only as told by your doctor. Ask your doctor if the medicine prescribed to you requires you to avoid driving or using machinery. Eating and drinking Drink enough fluid to keep your pee pale yellow. ?You may be told to drink at least 8 10 glasses of water each day. This will help you pass the stone. If told by your doctor, change your diet. You may be told to: ?Limit how much salt you eat. ?Eat more fruits and vegetables. ?Limit how much meat, poultry, fish, and eggs you eat. Follow instructions from your doctor about what you may eat and drink. General instructions Collect pee samples as told by your doctor. You may need to collect a pee sample: ?24 hours after a stone comes out. ?8 12 weeks after a stone comes out, and every 6 12 months after that. Strain your pee every time you pee. Use the strainer that your doctor recommends. Do not throw out the stone. Keep it so that it can be tested by your doctor. Keep all follow-up visits. You may need X-rays and ultrasounds to make sure the stone has come out. How is this prevented? To prevent another kidney stone: Drink enough fluid to keep your pee pale yellow. This is the best way to prevent kidney stones. Eat healthy foods. Avoid certain foods as told by your doctor. You may be told to eat less protein. Stay at a healthy weight. Where to find more information National Kidney Foundation (NKF): kidney.org Urology Care Foundation (F): urologyhealth.org Contact a doctor if: You have pain that gets worse or does not get better with medicine. Get help right away if: You have a fever or chills. You get very bad pain. You get new pain in your belly. You faint. You cannot pee. This information is not intended to replace advice given to you by your health care provider. Make sure you discuss any questions you have with your health care provider. Document Revised: 01/19/2023 Document Reviewed: 01/19/2023 [employer] Patient Education 2023 [employer]. Follow Up Care 10/23/2023 11:47:54 With:MARQUISE PAGE, DONNA Hurt, URL Address: [address] [place] [address] When: Unknown [facility] 12-05-2024 NotePatient Education Urology Acute Urinary Retention, Male Acute urinary retention is a condition in which a person is unable to pass urine or can only pass alittle urine. This condition can happen suddenly and last for a short time. If left untreated, it can become long-term (chronic) and result in kidney damage or other serious complications. What are the causes? This condition may be caused by: ??? Obstruction or narrowing of the tube that drains the bladder (urethra). This may be caused by surgery, problems with nearby organs, or injury to the bladder or urethra. ??? Problems with the nerves in the bladder. ??? Tumors in the area of the pelvis, bladder, or urethra. ??? Certain medicines. ??? Bladder or urinary tract infection. ??? Constipation. What increases the risk? This condition is more likely to develop in older men. As men age, their prostate may become largerand may start to press or squeeze on the bladder or the urethra. Other chronic health conditions can increase the risk of acute urinary retention. These include: ??? Diseases such as multiple sclerosis. ??? Spinal cord injuries. ??? Diabetes. ??? Degenerative cognitive conditions, such as delirium or dementia. ??? Psychological conditions. A man may hold his urine due to trauma or because he does not want touse the bathroom. What are the signs or symptoms? Symptoms of this condition include: ??? Trouble urinating. ??? Pain in the lower abdomen. How is this diagnosed? This condition is diagnosed based on a physical exam and your medical history. You may also have other tests, including: ??? An ultrasound of the bladder or kidneys or both. ??? Blood tests. ??? A urine analysis. ??? Additional tests may be needed, such as a CT scan, MRI, and kidney or bladder function tests. How is this treated? Treatment for this condition may include: ??? Medicines. ??? Placing a thin, sterile tube (catheter) into the bladder to drain urine out of the body. This is called an indwelling urinary catheter. After it is inserted, the catheter is held in place with a small balloon that is filled with sterile water. Urine drains from the catheter into a collection bag outside of the body. ??? Behavioral therapy. ??? Treatment for other conditions. If needed, you may be treated in the hospital for kidney function problems or to manage other complications. Follow these instructions at home: Medicines ??? Take acxk-per-buucfgm and prescription medicines only as told by your health care provider. Avoid certain medicines, such as decongestants, antihistamines, and some prescription medicines. Do nottake any medicine unless your health care provider approves. ??? If you were prescribed an antibiotic medicine, take it as told by your health care provider. Donot stop using the antibiotic even if you start to feel better. General instructions ??? Do not use any products that contain nicotine or tobacco. These products include cigarettes, chewing tobacco, and vaping devices, such as e-cigarettes. If you need help quitting, ask your health care provider. ??? Drink enough fluid to keep your urine pale yellow. ??? If you have an indwelling urinary catheter, follow the instructions from your health care provider. ??? Monitor any changes in your symptoms. Tell your health care provider about any changes. ??? If instructed, monitor your blood pressure at home. Report changes as told by your health care provider. ??? Keep all follow-up visits. This is important. Contact a health care provider if: ??? You have uncomfortable bladder contractions that you cannot control (spasms). ??? You leak urine with the spasms. Get help right away if: ??? You have chills or a fever. ??? You have blood in your urine. ??? You have a catheter and the following happens: ? Your catheter stops draining urine. ? Your catheter falls out. Summary ??? Acute urinary retention is a condition in which a person is unable to pass urine or can only pass a little urine. If left untreated, this condition can result in kidney damage or other serious complications. ??? An enlarged prostate may cause this condition. As men age, their prostate gland may become larger and may press or squeeze on the bladder or the urethra. ??? Treatment for this condition may include medicines and placement of an indwelling urinary catheter. ??? Monitor any changes in your symptoms. Tell your health care provider about any changes. This information is not intended to replace advice given to you by your health care provider. Make sure you discuss any questions you have with your health care provider. Document Revised: 02/16/2021 Document Reviewed: 02/16/2021 [employer] Patient Education ? 2023 [employer]. Kidney Stones Kidney stones are rock-like masses that form inside of the kidneys. Kidneys are organs that make pee (urine). A kidney (more content not included)...[facility]12-05-2024 Evaluation note* Diagnosis Onset Date Resolution Status Admit Date Cerebral atherosclerosis acuteDecember 2023 8:57amElevated cholesterolacuteDecember 2023 8:57am Essential hypertensionacuteDecember 2023 8:57amIFG (impaired fasting glucose)acuteDecember 2023 8:57amObesityacuteDecember 2023 8:57amSinus tachycardiaacuteDecember 2023 8:57amEssential hypertensionacuteJanuary 2024 10:08amIFG (impaired fasting glucose)acuteJanuary 2024 10:08am Acute sinusitisdeletedJanuary 2024 10:08am [facility] Work Phone: 1(415) 875-554707-02-2024 History of Present illness Narrative* Xuan Schuster, RADHA-INCLUSION SPECIAL EDUCATION TEACHER - 12/11/2023 9:30 AM EDT Images from the original note were not included. [facility] Visit Date of Visit: 12/11/2023 Patient Location: Home Patient Consent obtained: yes, Verbal Prior to beginning this clinical portion of this visit, the patient/family has verbally consented to the use of this telemedicine E-visit and initiated the contact. They have also consented to using [employer] as a communications platform, understanding the privacy limitations, and telehealth and HIPAA waivers as established in the CMS expansion of telehealth benefits under the 1135 waiver authority and the Coronavirus Preparedness and Response Supplemental Appropri ations Act Dated August and as summarized in August 26, 2019 [facility] FAQ on the Coronavirus (COVID-19) public health emergency. 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 His hospitalization was complicated by cerebellar edema and obstructive hydrocephalus and he underwent suboccipital decompressive craniectomy and C1 laminectomy and EVD placement. He eventually required SAFETY DIRECTOR shunt placement. His recovery was complicated by right popliteal DVT for which he completed course of Eliquis. He was also found to have pseudomeningocele that has been monitored by neurosurgery. He was last seen in clinic in May of 2023. He is being seen in clinic today for routine follow up. Taras is seen alone via telemedicine. He states he has made almost a complete recovery with only complaint being some unsteady gait at time. He denies new neurologic symptoms including vision changes, speech disturbance, focal weakness, paresthesia, headache, dizziness, diplopia or dysphagia since last visit. He is residing at home and no longer completing outpatient therapy. He remains independent in all ADLs and IADLs. He continues to work and drive without any issues. At this point, he hasreturned to work full-time. He ambulates independently without any reported falls. Utilizes a cane if needed, but often. No concerns for poor appetite, sleep disturbance, or depression. He is compliant with his medications including aspirin and statin. He is questioning if his PCP can slowly wean off some medications. He does not check his blood pressure routinely at home. Taras follows up withhis PCP routinely. Neurological ROS: unsteady gait Past Medical History: Diagnosis Date Headache Hematuria Hypertension Kidney stones Nephrolithiasis Obesity Stroke ([facility]) Urethral stricture Urinary retention Past Surgical History: Procedure Laterality Date CYSTOSCOPY W/ URETERAL STENT PLACEMENT 08/26/2019 GASTRIC BYPASS GASTRIC RESTRICTION SURGERY with small bowel reconstruction HERNIA REPAIR RIGHT FRONTAL EVD -SUBOCCIPITAL DECOMPRESSIVE CRANIECTOMY Right 12/13/2022 Performed by Angélica Toussaint MD at [facility] STEALTH INSERTION SHUNT VENTICULOPERITONEAL AXIOM AND REMOVAL OF EVD N/A 12/30/2022 Performed by Angélica Toussaint MD at [facility] Medication List Accurate as of December 11, 2023 9:51 AM. If you have any questions, ask your nurse or doctor. CONTINUE taking these medications Instructions Last Dose Given Next Dose Due acetaminophen 325 mg tablet Commonly known as: TYLENOL Take 2 tablets (650 mg total) by mouth every 6 (six) hours as needed for pain or headaches. amitriptyline 10 mg tablet Commonly known as: ELAVIL Take 1 tablet (10 mg total) by mouth nightly. aspirin 81 mg Take 1 tablet (81 mg total) by mouth in the morning. atorvastatin 10 mg tablet Commonly known as: LIPITOR Take 1 tablet (10 mg total) by mouth nightly. carvediloL 6.25 mg tablet Commonly known as: COREG Take 1 tablet (6.25 mg total) by mouth in the morning and 1 tablet (6.25 mg total) before bedtime. cyproheptadine 4 mg tablet Commonly known as: PERIACTIN Take 1 tablet (4 mg total) by mouth nightly. ELIQUIS 5 mg tablet Generic drug: apixaban Take 1 tablet (5 mg total) by mouth in the morning and 1 tablet (5 mg total) before bedtime. KEFLEX ORAL Take by mouth. melatonin tablet Commonly known as: CIRCADIN Take 1 tablet (3 mg total) by mouth nightly. MIRALAX 17 gram/dose powder Generic drug: polyethylene glycol Take by mouth. ondansetron ODT 4 mg disintegrating tablet Commonly known as: ZOFRAN ODT Dissolve 2 tablets (8 mg total) on tongue every 12 (twelve) hours as needed for nausea. OZEMPIC 0.25 mg or 0.5 mg(2 mg/1.5 mL) pen injector Generic drug: semaglutide tamsulosin 0.4 mg capsule Commonly known as: FLOMAX Take 1 capsule (0.4 mg total) by mouth nightly. venlafaxine XR 37.5 mg 24 hr capsule Commonly known as: EFFEXOR XR Take 1 capsule (37.5 mg total) by mouth in the morning. No Known Allergies Social Reviewed: TOBACCO:.No Family History Problem Relation Age of Onset Heart disease Mother Cancer Mother Heart disease Brother Diabetes Brother No family history on file. Physical Exam: There were no vitals filed for this visit. Please note that this exam was done through telemedicine, thus specific portions may be limited. NIH Stroke Scale Person Administering Scale: Xuan Schuster, VICE PRESIDENT OF BUSINESS DEVELOPMENT-INCLUSION SPECIAL EDUCATION TEACHER 1a Level of consciousness: 0=alert; keenly responsive [...] 0=Normal 11. Extinction and Inattention: 0=No abnormality NIHSS Total = 0 Modified Jolene Score: 1 PHQ9: Not completed but denies feeling depressed Data Reviewed: Labs: Radiology Reviewed: No new cerebral imaging to review. Stroke Risk Factors: Hypertension target range 130-140/70-80 HLD Hx of DVT Left vertebral artery occlusion and right vertebral artery stenosis ASSESSMENT & PLAN Taras Hayward is a 52 y.o. male with past medical history significant for hypertension who was hospitalized in December of this year for cerebellar stroke secondary to left vertebral artery occlusionand right vertebral artery stenosis. His hospitalization was complicated by cerebellar edema and obstructive hydrocephalus and he underwent suboccipital decompressive craniectomy and and C1 laminectomy and EVD placement. He has been maintained on aspirin and statin. Overall, he has made a great recovery! Cerebellar Ischemic Stroke Secondary to Left Vertebral Artery Occlusion with Right Vertebral ArteryStenosis s/p suboccipital decompressive craniectomy and and C1 laminectomy and EVD placement -Overall, he has made a great clinical recover! -Continue aspirin statin for secondary stroke prevention -Advise strict risk factor control -Follow up with PCP for risk factor management -Follow up in stroke clinic as needed Hypertension- Advise continuing to monitor for target SBP <130 -Continue antihypertensive regimen 3. Hx Right Popliteal DVT -Eliquis stopped per PCP 4. Hyperlipidemia- low fat/low cholesterol diet -Continue statin therapy -Recommend diet and exercise I have spent 28 mins personally reviewing previous history, imaging, and performing a face to face real time video health assessment on this patient via camera. If you have any further questions please feel free to contact our office at [facility]. This is a telemedicine visit. Verbal and/or written consent to participate in video visit was obtained. This visit occurred during in a Coronavirus (COVID-19) Public Health Emergency. I discussed with the patient the nature of his/her telemedicine visits that: - I would evaluate the patient and recommend diagnostics and treatments based on my assessment. - our sessions are not being recorded and that personal health information is being protected to the best of my ability. - our team would provide follow-up care in person if/ when the patient needs it RANDOLPH Green 12/11/23 1329 documented in this encounterMagruder Memorial HospitalFio [facility] [id number] Instructions* Patient Instructions* RANDOLPH Green - 12/11/2023 9:30 AM EDT Images from the original note were not included. Patient was evaluated in stroke/ neurovascular clinic today for routine follow up. The following was discussed including: You have made a great clinical recovery! Based on today's evaluation I do recommend: Continue on antiplatelet agent(s): specifically aspirin Continue statin Monitor blood pressure with SBP goal <130 In addition I did review the signs/ symptoms of stroke including BE FAST (B) balance issues, (E) acute eye/ vision changes, (F) facial droop, (A) Arm/ leg weakness, (S) speech disturbance and (T) time to call 911 if these symptoms occur. Follow up is advised : as needed. I recommend that you sign up for MY CHART so that I can send you test results and communicate otherinformation pertaining to the management of your health care. The instructions to gain access to [employer] are at the bottom of this summary. If you are not signed up for access to MY CHART and have not received notification of ANY test result within 7 days, please call [phone] to leave a request for your results. If you have not beencontacted about your test results, do not assume that your test results are normal. If you need to schedule a test such as a CT scan, Ultrasound, MRI or PET scan, please call [facility] Scheduling at [phone]. There are numerous area resources for [facility] stroke and brain aneurysm survivors. To learn more, ask about the FREE Monthly stroke support group or request a stroke support group calendar from the Stroke Clinic. You can also email Stroke Support Group moderator: Asha Goodman at [email or web address]. Stroke survivors, family members, caregivers and friends are ALL WELCOME! documented in this encounterUniversity Hospitals [facility]06-26-2024 History of Present illness Narrative* Angélica Toussaint MD - 12/05/2023 12:30 PM EDT Images from the original note were not included. [facility] [address] [place] [address], [address] [place] [address] * CHART NOTE ? 12/05/2023 Patient: Taras Hayward 1970 [id number] Physician: Angélica Toussaint MD, FAANS SUMMARY 11.5 months status post suboccipital decompressive craniectomy and C1 laminectomy with external ventricular drain insertion, performed on 12/13/22 for large ischemic cerebellar stroke; 11 months statuspost SAFETY DIRECTOR shunt insertion performed on 12/30/22; and 9 months after hospitalization for right upper ext remity weakness, VASQUEZ, nausea, and post op pseudomeningocele with shunt reprogramming from 2.0 to 1.0with findings of isolated/trapped 4th ventricle. Patient is currently doing very well with resolution of post-operative symptoms. PLAN The patient is doing well with resolution of post-operative symptoms, so I will continue to follow-up with him as needed. I have instructed the patient to contact my office if any new questions, concerns, or symptoms develop. HISTORY OF PRESENT ILLNESS Taras Hayward is a 52 y.o. male who presents to the clinic today for post- operative evaluation 11.5 months status post suboccipital decompressive craniectomy and C1 laminectomy with external ventricular drain insertion, performed on 12/13/22 for a large ischemia cerebella stroke; 11 months statuspost SAFETY DIRECTOR shunt insertion performed on 12/30/22. The patient presented to the hospital on February 07, 2023 for right upper extremity weakness and pseudomeningocele. In the hospital, the patient's shunt was tapped and was found to be functioning. The setting was also changed from 2.0 to 1.0. At his following visit, the patient stated he had been doing well and denied headaches, blurry vision, double vision. The pseudomeningocele remained present and without bother to the patient. He did note that sometimes the swelling at the back of the neck was a little less and then throughout the day returned.At the last visit, the patient stated he had been feeling well without any difficulties. He used a cane when walking longer distances but otherwise ambulated without it. The pseudomeningocele continued to be present and waxed and waned in size but was not a bother to the patient. He was working at [employer]. Patient denied VASQUEZ, blurry vision, double vision, N/V, gait imbalance. Today, patient reports that he is doing well and has had no recent issues. He admits to mild balance problems with gait, but nothing unusual that is sparking any concern. He uses a cane to assist with ambulation. HEALTH HISTORY Past Medical History Documented in chart and reviewed with the patient at this visit Family History Documented in chart and reviewed with the patient at this visit Social History Documented in chart and reviewed with the patient at this visit Surgeries/Hospitalizations Documented in chart and reviewed with the patient at this visit Current Medications Current Outpatient Medications on File Prior to Visit Medication Sig Dispense Refill acetaminophen (TYLENOL) 325 mg tablet Take 2 tablets (650 mg total) by mouth every 6 (six) hours asneeded for pain or headaches. 30 tablet 0 amitriptyline (ELAVIL) 10 mg tablet Take 1 tablet (10 mg total) by mouth nightly. aspirin 81 mg Take 1 tablet (81 mg total) by mouth in the morning. atorvastatin (LIPITOR) 10 mg tablet Take 1 tablet (10 mg total) by mouth nightly. carvediloL (COREG) 6.25 mg tablet Take 1 tablet (6.25 mg total) by mouth in the morning and 1 tablet (6.25 mg total) before bedtime. cephalexin (KEFLEX ORAL) Take by mouth. (Patient not taking: Reported on 09/05/2023) cyproheptadine (PERIACTIN) 4 mg tablet Take 1 tablet (4 mg total) by mouth nightly. ELIQUIS 5 mg tablet Take 1 tablet (5 mg total) by mouth in the morning and 1 tablet (5 mg total) before bedtime. (Patient not taking: Reported on 09/05/2023) melatonin (CIRCADIN) tablet Take 1 tablet (3 mg total) by mouth nightly. 0 ondansetron ODT (ZOFRAN ODT) 4 mg disintegrating tablet Dissolve 2 tablets (8 mg total) on tongue every 12 (twelve) hours as needed for nausea. polyethylene glycol (MIRALAX) 17 gram/dose powder Take by mouth. (Patient not taking: Reported on 09/05/2023) semaglutide (OZEMPIC) 0.25 mg or 0.5 mg(2 mg/1.5 mL) pen injector tamsulosin (FLOMAX) 0.4 mg capsule Take 1 capsule (0.4 mg total) by mouth nightly. venlafaxine XR (EFFEXOR XR) 37.5 mg 24 hr capsule Take 1 capsule (37.5 mg total) by mouth in the morning. No current facility-administered medications on file prior to visit. Allergies No Known Allergies REVIEW OF SYSTEMS A complete and comprehensive 10-system review was completed. Pertinent positives and negatives are mentioned in the history of the present illness. PHYSICAL EXAMINATION Awake and oriented x3. Speech and language function is normal. Memory, recent and remote, is intact. Neurologically intact. Gait is intact with use of a cane. Posture is normal. ROM of the cervical spine is normal. Incision is healing well with no drainage or erythema. DIAGNOSTICS CT brain was completed on 11-21-2023 and shows no changes in the ventricles and there is decreasing the size of the pseudomeningocele. CT of the brain from May 22, 2023 was reviewed and revealed decompressed lateral ventricles with trapped/dilated 4th ventricle and postoperative pseudomeningocele status post decompressive suboccipital craniectomy Sincerely, Electronically signed by: Angélica Toussaint MD, FAANS This note was created with the assistance of a speech recognition program with the goal of generating a timely record of the patient encounter. Inadvertent computerized bench carpenter errors related to syntax, spelling, homophones, and/or inaudibility may be present. Scribe Statement: Scribed for and in the presence of Dr. Angélica Toussaint MD, FAADORI by Roma Lindsay. Roma Lindsay 12/05/233 documented in this [facility]06-26-2024 Instructions* Patient Instructions* Roma Lindsay - 12/05/2023 12:30 PM EDT The patient is doing well with resolution of post-operative symptoms, so I will continue to follow-up with him as needed. documented in this encounterUniversity Hospitals Cleveland [facility] Center06-07-2024 Miscellaneous Notes* Telephone Encounter - Davina Hawkins RN - 11/16/2023 11:11 AM EDT Per recall, patient needs routine follow up with ANASTASIYA. Please call to schedule patient. * Telephone Encounter - Ashely Galicia - 11/16/2023 11:11 AM EDT Spoke with patient and scheduled appt documented in this [facility]06-07-2024 Telephone encounter Note* Telephone Encounter - Davina Hawkins RN - 11/16/2023 11:11 AM EDT Per recall, patient needs routine follow up with ANASTASIYA. Please call to schedule patient. [facility]06-07-2024 Telephone encounter Note* Telephone Encounter - Ashely Galicia - 11/16/2023 11:11 AM EDT Spoke with patient and scheduled appt [facility]05-14-2024 Hospital Discharge instructions Patient Education 10/23/2023 11:37:27 Dietary Guidelines to Help Prevent Kidney Stones Dietary Guidelines to Help Prevent Kidney Stones Kidney stones are deposits of minerals and salts that form inside your kidneys. Your risk of developing kidney stones may be greater depending on your diet, your lifestyle, the medicines you take, and whether you have certain medical conditions. Most people can lower their risks of developing kidney stones by following these dietary guidelines. Your dietitian may give you more specific [...] include: ?8 oz (237 mL) of milk, tuhrjdx-tyefxgebgwne-benjl milk, and calcium- fortifiedfruit juice. Calcium-fortified means [...] the table and allow each person to addtheir own salt to taste. Use vegetable protein, [...] fish, or seafood. ?When you prepare animal proteins, cut pieces into small portion sizes. For most meat and fish, oneserving is about the size of the palm of your hand. Eat at least five servings of fresh fruits and vegetables each day. To do this: ?Keep fruits and vegetables on hand for snacks. ?Eat one piece of fruit or a handful of berries with breakfast. ?Have a salad and fruit at lunch. ?Have two kinds of vegetables at dinner. You may be told to limit foods that are high in a substance called oxalate. These include: ?Spinach (cooked), rhubarb, beets, sweet potatoes, and Finnish chard. ?Peanuts. ?Potato chips, tajik fries, and baked potatoes with skin on. ?Nuts and nut products. ?Chocolate. If you regularly take a diuretic medicine, make sure to eat at least 1 or 2 servings of fruits or vegetables that are high in potassium each day. These include: ?Avocado. ?Banana. ?[place], prune, carrot, or tomato juice. ?Baked potato. ?Cabbage. ?Beans and split peas. Lifestyle Drink enough fluid to keep your urine pale yellow. This is the most important thing you can do. Spread your fluid intake throughout the day. If you drink alcohol: ?Limit how much you have to: ?0 1 drink a day for women who are not . ?0 2 drinks a day for men. ?Know how much alcohol is in your drink. [...] provider and dietitian about taking daily supplements. Depending on your health and the cause of your kidney stones, you may be told: ?Do not take high-dose supplements of vitamin C (1,000 mg a day or more). ?To take a calcium supplement. ?To take a daily probiotic supplement. ?To take other supplements such as magnesium, fish oil, or vitamin B6. Take qywx-spd-rmsotab and prescription medicines only as told by [...] sausages, meat loaves, and hot dogs. Dairy Cheeses. Beverages Regular soft drinks. Regular vegetable juice. Seasonings and condiments Seasoning blends with salt. Salad dressings. Soy sauce. Ketchup. Barbecue sauce. Other foods Canned soups. Canned pasta sauce. Casseroles. Pizza. Lasagna. Frozen meals. Potato chips. Slovak fries. The items listed above may not [...] with your health care provider. Document Revised: 09/07/2022 Document Reviewed: 09/07/2022 [employer] Patient Education 2022 [employer]. Follow Up Care 07/03/2023 11:40:21 With:MARQUISE PAGE, DONNA Hurt, URL Address: [address] [place] [address] When: Unknown [facility] 03-27-2024 History of Present illness Narrative* JOSE MARTIN Monroy - 09/05/2023 11:50 AM EDT Images from the original note were not included. [facility] [address] [place] [address], [address] [place] [address] * CHART NOTE ? 02/21/2023 Patient: Taras Hayward 1970 [id number] Physician: Darrell Marin PA-C SUMMARY 8 months status post suboccipital decompressive craniectomy and C1 laminectomy with external ventricular drain insertion, performed on 12/13/22 for large ischemic cerebellar stroke; 8 months status post SAFETY DIRECTOR shunt insertion performed on 12/30/22; and 6 months after hospitalization for right upper extremity weakness, VASQUEZ, nausea, and post op pseudomeningocele with shunt reprogramming from 2.0 to 1.0 with findings of isolated/trapped 4th ventricle. PLAN The patient was seen and examined with Dr. Toussaint. The patient continues to do well and make progress with his gait and overall strength and states that the pseudomeningocele is not much of a bother to him. Our recommendation would be to continue to hold off on surgical intervention at this time. The patient was instructed to return to our office or the emergency department if he begins to experience blurry vision, double vision, nausea, headache, ataxia, or upper or lower extremity weakness. We would like to see the patient back in the office in 3 months for follow-up with a new CT of the brain at that time. Patient voiced understanding of the plan of care. I have instructed the patient to contact my office if any new questions, concerns, or symptoms develop. HISTORY OF PRESENT ILLNESS Taras Hayward is a 52 y.o. male who presents to the clinic today for post- operative evaluation 8 months status post suboccipital decompressive craniectomy and C1 laminectomy with external ventricular drain insertion, performed on 12/13/22 for a large ischemia cerebella stroke; 8 months status post SAFETY DIRECTOR shunt insertion performed on 12/30/22. The patient presented to the hospital on February 07, 2023 for right upper extremity weakness and pseudomeningocele. In the hospital, the patient's shunt was tapped and was found to be functioning. The setting was also changed from 2.0 to 1.0. At the last visit, the patient stated he had been doing well and denied headaches, blurry vision, double vision. The pseudomeningocele remained present and without bother to the patient. He did note that sometimes the swelling at the back of the neck was a little less and then throughout the day returned. Today, the patient states he has been feeling well without any difficulties. He uses a cane when walking longer distances but otherwise goes without it. The pseudomeningocele continues to be present and wax and wane in size but is not a bother to the patient. He is working at [employer]. Patient denies VASQUEZ, blurry vision, double vision, N/V, gait imbalance. HEALTH HISTORY Past Medical History Documented in chart and reviewed with the patient at this visit Family History Documented in chart and reviewed with the patient at this visit Social History Documented in chart and reviewed with the patient at this visit Surgeries/Hospitalizations Documented in chart and reviewed with the patient at this visit Current Medications Current Outpatient Medications on File Prior to Visit Medication Sig Dispense Refill acetaminophen (TYLENOL) 325 mg tablet Take 2 tablets (650 mg total) by mouth every 6 (six) hours asneeded for pain or headaches. 30 tablet 0 amitriptyline (ELAVIL) 10 mg tablet Take 1 tablet (10 mg total) by mouth nightly. aspirin 81 mg Take 1 tablet (81 mg total) by mouth in the morning. atorvastatin (LIPITOR) 10 mg tablet Take 1 tablet (10 mg total) by mouth nightly. carvediloL (COREG) 6.25 mg tablet Take 1 tablet (6.25 mg total) by mouth in the morning and 1 tablet (6.25 mg total) before bedtime. cyproheptadine (PERIACTIN) 4 mg tablet Take 1 tablet (4 mg total) by mouth nightly. ELIQUIS 5 mg tablet Take 1 tablet (5 mg total) by mouth in the morning and 1 tablet (5 mg total) before bedtime. melatonin (CIRCADIN) tablet Take 1 tablet (3 mg total) by mouth nightly. 0 ondansetron ODT (ZOFRAN ODT) 4 mg disintegrating tablet Dissolve 2 tablets (8 mg total) on tongue every 12 (twelve) hours as needed for nausea. polyethylene glycol (GLYCOLAX) 17 gram packet Take 17 g by mouth daily as needed (constipation). semaglutide (OZEMPIC) 0.25 mg or 0.5 mg(2 mg/1.5 mL) pen injector INJECT 0.5MG SUBCUTANEOUSLY WEEKLY (Patient not taking: Reported on 02/07/2023) sennosides-docusate sodium (SENOKOT-S) 8.6-50 mg Take 2 tablets by mouth in the morning and 2 tablets before bedtime. (Patient not taking: Reported on 02/07/2023) tamsulosin (FLOMAX) 0.4 mg capsule Take 1 capsule (0.4 mg total) by mouth nightly. venlafaxine XR (EFFEXOR XR) 37.5 mg 24 hr capsule Take 1 capsule (37.5 mg total) by mouth in the morning. No current facility-administered medications on file prior to visit. Allergies No Known Allergies REVIEW OF SYSTEMS A complete and comprehensive 10-system review was completed. Pertinent positives and negatives are mentioned in the history of the present illness. PHYSICAL EXAMINATION Alert and oriented x3. Speech and language function is normal. Memory, recent and remote, is intact. Sensation intact grossly. Moving all extremities, following all commands. Tongue midline without fasciculations. Gait is intact with use of cane. Posture is normal. ROM of the cervical spine is normal. Shunt incisions are well healed without drainage or erythema. Suboccipital swelling noted visually and mild fluctuance with palpation. Shunt reservoir pumps and refills briskly. DIAGNOSTICS CT of the brain from May 22, 2023 was reviewed again today and reveals decompressed lateral ventricles with trapped/dilated 4th ventricle and postoperative pseudomeningocele status post decompressive suboccipital craniectomy Sincerely, Electronically signed by: Darrell Marin PA-C This note was created with the assistance of a speech recognition program with the goal of generating a timely record of the patient encounter. Inadvertent computerized bench carpenter errors related to syntax, spelling, homophones, and/or inaudibility may be present. JOSE MARTIN Monroy 09/05/23 1312 documented in this encounterUniversity [facility]als [facility]01-22-2024 Evaluation note* Encounter Date Diagnosis Assessment Notes Treatment Notes Treatment Clinical Notes Jun, Wellness examination (ICD-10 - Z 00.00) Healthy diet and exercise. Reviewed age-appropriate preventive testing recommended. Jun,Essential hypertension (ICD-10 - I10)This patient is instructed to consume a healthy, low-fat, low-salt diet. They are also encouraged to continue exercise to achieve/maintain a normal BMI. Patient is instructed on home BP measurements: - rest for 5 minutes w/o talking.- positioned w/ feet on floor and arm supported.- average best 2/3 readings w/ goal < 135/85.- update office w/ homereadings in 2 weeks. Jun,IFG (impaired fasting glucose) (ICD-10 - R73.01)Healthy diet and exercise. 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 Check DDimer and Venous US Jun,Elevated cholesterol (ICD-10 - E78.00)Instructed on diet and exercise with continued statin therapy.Discussed the beneficial effects of lo wering cholesterol in reducing the risk for cerebrovascular and cardiovascular disease. Jun,erebellar infarction with occlusion or stenosis of cerebellar artery (ICD-10 - I63.549)No new deficits Back to work w/ reduced hours. Some balance issues, fall precautions, using assistive device. Continue secondary preventive measures Jun,Stenosis of left vertebral artery (ICD-10 - I65.02)Continue secondary preventive measures. Reviewed stroke symptoms and instructed to go to ER for suspicious symptoms Jun,Morbid (severe) obesity due to excess calories (ICD-10 - E66.01)This patient has been instructed on a low-fat, high-fiber diet. They are instructed to reduce calories, portion sizes and snacks. It is recommended that they exercise for 30 minutes, 3-5 times weekly. Jun,ody mass index [BMI] 40.0-44.9, adult (ICD-10 - Z68.41) [employer] Other 01-08-2024 Miscellaneous Notes* Telephone Encounter - Megan Ward CMA - 06/18/2023 8:58 AM EST Received driving eval report. Uploaded to media. Please advise * Telephone Encounter - Ashely Erickson - 06/18/2023 8:58 AM EST Received call today 06/18/23 2:30 from patient in regard to previous message. He is requesting a callback. Please call back and advise, callback#: [phone]. * Telephone Encounter - Gladis Perry PA-C - 06/18/2023 8:58 AM EST Called patient. 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 Told him to call back if he had any questions. documented in this encounterMarymount Hospital PRSM [id number] Telephone encounter Note* Telephone Encounter - Megan Ward CMA - 06/18/2023 8:58 AM EST Received driving eval report. Uploaded to media. Please advise [employer]01-08-2024 Telephone encounter Note* Telephone Encounter - Ashely Erickson - 06/18/2023 8:58 AM EST Received call today 06/18/23 2:30 from patient in regard to previous message. He is requesting a callback. Please call back and advise, callback#: [phone]. [employer] [employer] [employer]01-08-2024 Telephone encounter Note* Telephone Encounter - Gladis Perry PA-C - 06/18/2023 8:58 AM EST Called patient. 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 Told him to call back if he had any questions. [employer]12-26-2023 Evaluation note* Encounter Date Diagnosis Assessment Notes Treatment Notes Treatment Clinical Notes May, IFG (impaired fasting glucose) ( ICD-10 - R73.01) [employer] Other [id number] History of Present illness Narrative* Marc Waggoner MD - 05/30/2023 2:00 PM EST Reason [...] laminectomy and EVD placement. He eventually required SAFETY DIRECTOR shunt placement.He has a pseudomeningocele which is [...] driving. 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 He denies dizziness, focal weakness, numbness/tingling, changes in vision. No difficulty swallowing. 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 [...] Hematuria Hypertension Kidney stones Nephrolithiasis Obesity Stroke ([facility]) Urethral stricture Urinary retention Past Surgical History Past Surgical History: Procedure Laterality Date CYSTOSCOPY W/ URETERAL STENT PLACEMENT 08/26/2019 GASTRIC BYPASS GASTRIC RESTRICTION SURGERY with small bowel reconstruction HERNIA REPAIR RIGHT FRONTAL EVD -SUBOCCIPITAL DECOMPRESSIVE CRANIECTOMY Right 12/13/2022 Performed by Angélica Toussaint MD at [facility] STEALTH INSERTION SHUNT VENTICULOPERITONEAL AXIOM AND REMOVAL OF EVD N/A 12/30/2022 Performed by Angélica Toussaint MD at [facility] Family History The patient has a family [...] in the note above. documented in this encounterMagruder Memorial HospitalFio Trinity [facility] Shelby [id number] Instructions* Patient Instructions* Gladis Perry PA-C - 05/30/2023 2:00 PM EST Follow up in clinic in 6 month in [facility] Continue to follow up with Dr. Toussaint Remain on 81 mg aspirin Stroke risk factors: HTN , systolic < 130, HLD LDL < 70 Follow up with commercial driver's eval. Call our office once completed for us to review. documented in this encounterMagruder Memorial HospitalFio [facility] Shelby [id number] Evaluation note* Encounter Date Diagnosis Assessment Notes Treatment Notes Treatment Clinical Notes May, Nausea (ICD-10 - R11.0) [employer] Other [id number] Miscellaneous Notes* Telephone Encounter - Davina Hawkins RN - 05/11/2023 11:[address] Waggoner, patient needs appt with Dr. Toussaint specifically (no PA or SUPPLY CHAIN ENGINEER) to address meningoceletreatment as this is likely the reason for patients symptoms he is experiencing. Please call to schedule patient. documented in this encounterMagruder Memorial HospitalLIQUITY [id number] Telephone encounter Note* Telephone Encounter - Davina Hawkins RN - 05/11/2023 11:[address] Waggoner, patient needs appt with Dr. Toussaint specifically (no PA or SUPPLY CHAIN ENGINEER) to address meningoceletreatment as this is likely the reason for patients symptoms he is experiencing. Please call to schedule patient. [facility]09-12-2023 Hospital Discharge instructions Patient Education 02/20/2023 11:06:38 [...] include: ?8 oz (237 mL) of milk, lzelkge-iwcsagduggxb-vsvaf milk, and calcium- fortifiedfruit juice. Calcium-fortified means [...] ?Spinach (cooked), rhubarb, beets, sweet potatoes, and Finnish chard. ?Peanuts. ?Potato chips, tajik fries, and baked potatoes with skin on. ?Nuts and nut products. ?Chocolate. If you regularly take a diuretic medicine, make sure to eat at least 1 or 2 servings of fruits or vegetables that are high in potassium each day. These include: ?Avocado. ?Banana. ?[place], prune, carrot, or tomato juice. ?Baked potato. [...] magnesium, fish oil, or vitamin B6. Take cdhr-fby-dlxjwvf and prescription medicines only as told by [...] Casseroles. Pizza. Lasagna. Frozen meals. Potato chips. Slovak fries. The items listed above may not [...] provider. Document Revised: 02/06/2022 Document Reviewed: 02/06/2022 [employer] Patient Education 2022 [employer]. Follow Up Care 01/24/2023 14:46:51 With:MARQUISE PAGE, DONNA Hurt, URL Address: [address] 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 - restart statin? Continue PT/OT Fall precautions Jan,Muscle weakness of right upper extremity (ICD-10 - M62.81)No explanation, refer to ER for urgent evaluation. Jan,Stenosis of left vertebral artery (ICD-10 - I65.02)Continue secondary prevention measures. Should be taking ASA and Statin f/u Neurology Jan,Essential hypertension (ICD-10 - I10)This patient is instructed to consume a healthy, low-fat, low-salt diet. They are also encouraged to continue exercise to achieve/maintain a normal BMI. Monitor for now. Jan,Tachycardia (ICD-10 - R00.0)Stable w/ Carvedilol, no change in treatment Avoid stimulants Jan,IFG (impaired fasting glucose) (ICD-10 - R73.01)A1C < 7% Healthy diet, exercise No longer taking GLP 1 - d/c may lead to CVA? Jan,Elevated cholesterol (ICD-10 - E78.00)Instructed on diet and exercise with continued statin therapy.Discussed the beneficial effects of lo wering cholesterol in reducing the risk for cerebrovascular and cardiovascular disease. Jan,urrent mild episode of major depressive disorder without prior episode (ICD-10 - F32.0)Initiated on Effexor at 37.5mg - patient unsure why this was prescribed and why no instructions to titrate dose - instructed to inquire w/ Neurologist I would recommend increasing dose for expected mood disorder following this serious event Keep active, healthy diet and continue therapy Counseling suggested Jan,Hesitancy of micturition (ICD-10 - R39.11) Jan,enign prostatic hyperplasia with lower urinary tract symptoms (ICD- 10 - N40.1)Required kramer catheter during hospitalization Initiated on Flomax w/o further difficulties. Continue for now. Jan,Nausea (ICD-10 - R11.0)Persistent and likely related to CBL CVA. Instructed to increase Zofran dose at noon due to afternoon nausea Small, frequent meals [employer] Other 08-16-2023 Discharge summary Author Srinivas Patricia [facility] January 24, 2023 1:59pmNote Date/TimeAugust 2022 10:06[place] [id number] Discharge Summary Signed Patient: Taras Hayward MR#: [id number] : 1970 Acct:[id number] Age/Sex: 52 / M Adm Date: 3 Loc: Room: 3S1996-[address]: Srinivas Patricia MD Copies to: [...] to Neurosurgery Routine Discharge Diagnosis (1) S/P SAFETY DIRECTOR shunt: (2) Hydrocephalus: (3) Cerebellar infarct: (4) [...] nephrolithiasis, gastric bypass surgery. Patient presented to [place] emergency department via EMS with complaints of dizziness, nausea andvomiting, vertigo, and headache.? He stated the symptoms started suddenly when he was sitting in the chair after returning from work thatday.? CTA head and neck demonstrated [facility] in [place]. MRI of the brain showed late acute infarct involving inferior portion of the left cerebellar hemisphere with mass effect on medulla and right midbrain shift.? On 12/13/2022 patient became progressivelylethargic.? Repeat CT brain demonstrated worsening hydrocephalus with [...] demonstrating pseudocyst.? On 12/30/2022 patient underwent a SAFETY DIRECTOR shunt placement due to obstructive hydrocephalus and [...] over the past several days.? He reports nochange in vision, his speech is clear and fluent.? He reports no cardiopulmonary complaints.? Heartrate noted to be elevated in 100s on assessment.? He does take carvedilol for hypertension and tachycardia. Prior to most recent hospitalization he was generally healthy and worked full- time at [employer]. Rehabilitation Course: Course was complicated by right popliteal DVT. Vascular surgery was consulted and recommended oral anticoagulation if cleared by neurosurgery. I discussed the case with his neurosurgery and the patient was initiated on Eliquis. The patient never developed any chest pain, no dyspnea nor shortness ofbreath, nor persistent tachycardia that would have been [...] case was also again reviewed with his neurosurge ry team. Ultimately the impression of providers was that he would just require supportive, symptomatic care. There do not appear to be any complications with his shunt or the way it is programmed, hehas follow-up with neurosurgery in a few weeks. [...] Plan Discharge Plan Patient Disposition: Home Health [facility] Activity: Ambulate as Tolerated Diet: Regular Additional Instructions: -Code status: Full code. -Activity: Ambulate as tolerated. No driving until cleared by Neurologist, may ride in car. -Diet: Regular diet. -Eating strategies: Sit upright at 90 degrees with oral intake. -Wound care to craniotomy and posterior neck incisions: May leave open to air aslong as there is nodrainage present. May shower, but no soaking/submerging, or scrubbing incisions until fully healed,or told otherwise by Surgeon. -Routinue Kramer catheter care (see attached instructions). Kramer cathter was re- inserted on 01/24/23due to urinary retention. Kramer catheter should remain in place until you follow up with Urology (see below for appointment details). Your Home Health agency is [facility] ( ). They will contact you 24-48 hours after discharge to schedule a day/time to meet withyou at your home to establish care. You have been given prescriptions for new and/or needed medications. These prescriptions are fora one-time fill only, with no re-fills. For [...] remember to wear a mask to all appointments.If you develop any symptoms (cough, fever/chills, shortness of breath, sore throat, nausea/vomiting, etc.) please contact your provider's office to inform them prior to your appointment.. Instructions: Stroke (DC), Cyproheptadine, [facility] Kramer Catheter Care at Home Prescriptions: New [...] Location: Determined by Patient Ordered By: Srinivas FOLEY Home Medical Equipment (Routine) Timeframe: 20230122 Location: Determined by Patient Ordered By: Srinivas Patricia Follow Up: Angélica Toussaint MD [Other] - [facility]23 [facility] [Other] - 02/21/23 3:[address] angiogram head and carotid [Other] Konrad Lilly MD [Active Staff] - Awais Garcia DO [Referring] - 02/06/23 11:30 am (PCP) Srinivas Patricia MD [Active Staff] - (follow up with rehab physician as/if needed) Documented By: Srinivas Patricia MD 01/24/23 1006 Signed By: <Electronically signed by Srinivas Patricia MD> 01/24/23 0540 [facility] Work Phone: [phone] 665-152008-15-2023 Progress note Author Srinivas Patricia [facility] January 23, 2023 10:27amNote Date/TimeAugust 2022 10:27[place] [address] Physiatry(Rehab) Progress Note Signed Patient: Taras Hayward MR#: [id number] : 1970 Acct:[id number] Age/Sex: 52 / M Adm Date: 3 Loc: Room: [address] [place] [address] Type: ADM IN Attending Dr: Srinivas Patricia MD Copies to: ~ Date of Service: 01/23/2023 Subjective Subjective Narrative: Mr. Hayward is a 52 year old male presenting to inpatient rehab unit with functional impairments secondary to left cerebellar CVA. His past medical history is notable for obesity, hypertension, nephrolithiasis, gastric bypass surgery. Patient presented to [place] emergency department via EMS with complaints of dizziness, nausea andvomiting, vertigo, and headache. He stated the symptoms started suddenly when he was sitting in thechair after returning from work thatday. CTA head and neck demonstrated left vertebral artery occlusion near [facility]which prompted a transfer to [facility] in [place]. MRI of the brain showed late acute [...] demonstrating pseudocyst. On 12/30/2022 patient underwent a SAFETY DIRECTOR shunt placement due to obstructive hydrocephalus and malignant edema, EVD removed at that time. She was recommended acute rehabilitation for strengthening. On admission patient is alert and oriented x3, answers questions appropriately. No significant neurological deficits noted on assessment. He feels slightly off balance and experiences occasional dizziness with movement/position changes andintermittent nausea, but it has improved dramatically over the past several days. He reports no change in vision, his speech is clear and fluent. He reports no cardiopulmonary complaints. Heart rate noted to be elevated in 100s on assessment. He does take carvedilol for hypertension and tachycardia. Prior to most recent hospitalization he was generally healthy and worked full- time at [employer]. Interval History: Still retaining urine, required [...] % (Auto) 65.2 Lymph % (Auto) 25.4 Person % (Auto) 6.7 Eos % (Auto) 2.4 Baso % (Auto) 0.3 Nucleat RBC Rel Count 0.1 Neut # (Auto) 5.2 Lymph # (Auto) 2.0 Person # (Auto) 0.5 Eos # (Auto) 0.2 Baso # (Auto) 0.0 PHA Creatinine Clear 131.71 Sodium 134 L Potassium 3.8 Chloride 98 Carbon Dioxide 29.2 Anion Gap 10.6 BUN 16 Creatinine 1.04 Est GFR (CKD-EPI) > 60.0 Glucose 147 H Calcium 9.3 Urine Color [place] A Urine Appearance Cloudy A Urine pH 5.5 Ur Specific [place] 1.024 Urine Protein 100 H Urine Glucose [...] mg 01/03/23 15:41 Bisacodyl 10 Mg Supp.Rect NC 01/03/24 15:40 DAILY PRN Constipation Carvedilol 12.5 [...] 15:41 Docusate Enema 283 Mg/5 Ml Enema NC 01/03/24 15:40 DAILY PRN Constipation Lactulose 30 [...] DAILY LEANNA Administration Assessment/Plan Assessment/Plan (1) S/P SAFETY DIRECTOR shunt: Code(s): Z98.2 - Presence of cerebrospinal [...] functional impairmentssecondary to left cerebellar CVA s/p SAFETY DIRECTOR shunt placement due to development of hydrocephalus. [...] equipment to enhance the patient's a functional congregation Ensure adequate nutrition and hydration Sleep: No issues Pain: Continue current regimen Discharge planning:. Home 01/24. I spent greater than 25 minutes for services, including [id number] encounter with the patient, discussion of the case, plan of care, and exam; and pkjgjhr-oz-irxf activities, such as reviewing pertinent corporate health consultant documentation,recent therapy notes, laboratory and radiology studies, and discussion of case with care team including physician, nursing, laborer rags, and therapists. More than 50 % of time was spent on patient/family counseling or coordination ofcare. Documented By: Srinivas Patricia MD 01/23/23 1024 Signed By: <Electronically signed by Srinivas Patricia MD> 01/23/23 1027 [facility] Work Phone: 1(273) 876-453408-14-2023 Progress note Author Srinivas Patricia [facility] January 22, 2023 2:08pmNote Date/TimeAugust 2022 9:41[place], [place] [address] Physiatry(Rehab) Progress Note Signed Patient: Taras Hayward MR#: [id number] : 1970 Acct:[id number] Age/Sex: 52 / M Adm Date: 3 Loc: Room: 5D4037-1 Type: ADM IN Attending Dr: Srinivas Patricia MD Copies to: ~ Date of Service: 01/22/2023 Subjective Subjective Narrative: Mr. Hayward is a 52 year old male presenting to inpatient rehab unit with functional impairments secondary to left cerebellar CVA. His past medical history is notable for obesity, hypertension, nephrolithiasis, gastric bypass surgery. Patient presented to [place] emergency department via EMS with complaints of dizziness, nausea andvomiting, vertigo, and headache. He stated the symptoms started suddenly when he was sitting in thechair after returning from work thatday. CTA head and neck demonstrated left vertebral artery occlusion near originwhich prompted a transfer to [facility] in [place]. MRI of the brain showed late acute [...] demonstrating pseudocyst. On 12/30/2022 patient underwent a SAFETY DIRECTOR shunt placement due to obstructive hydrocephalus and malignant edema, EVD removed at that time. She was recommended acute rehabilitation for strengthening. On admission patient is alert and oriented x3, answers questions appropriately. No significant neurological deficits noted on assessment. He feels slightly off balance and experiences occasional dizziness with movement/position changes andintermittent nausea, but it has improved dramatically over the past several days. He reports no change in vision, his speech is clear and fluent. He reports no cardiopulmonary complaints. Heart rate noted to be elevated in 100s on assessment. He does take carvedilol for hypertension and tachycardia. Prior to most recent hospitalization he was generally healthy and worked full- time at [employer]. Interval History: He's doing well today. Mood is brighter. Ambulatory 235'. Improved with [employer]. Anxious for home discharge. Vitals stable on [...] mg 01/03/23 15:41 Bisacodyl 10 Mg Supp.Rect NC 01/03/24 15:40 DAILY PRN Constipation Carvedilol 12.5 [...] 15:41 Docusate Enema 283 Mg/5 Ml Enema NC 01/03/24 15:40 DAILY PRN Constipation Lactulose 30 [...] DAILY LEANNA Administration Assessment/Plan Assessment/Plan (1) S/P SAFETY DIRECTOR shunt: Code(s): Z98.2 - Presence of cerebrospinal [...] functional impairmentssecondary to left cerebellar CVA s/p SAFETY DIRECTOR shunt placement due to development of hydrocephalus. . He does complain of continued intermittent headaches, nausea/vomiting, dizziness/lightheadedness. * Improved today, ambulatory and working with PT/OT/[employer]. * Mood improved. * D/C kramer after [...] equipment to enhance the patient's a functional congregation Ensure adequate nutrition and hydration Sleep: No issues Pain: Continue current regimen Discharge planning:. Home 01/24. I spent greater than 25 minutes for services, including ahlc-mo-zukb encounter with the patient, discussion of the case, plan of care, and exam; and zwxsyey-ga-ekno activities, such as reviewing pertinent corporate health consultant documentation, recent therapy notes, laboratory and radiology studies, and discussion of case with care team including physician, nursing, laborer rags, and therapists. More than 50 % of time was spent on patient/family counseling or coordination ofcare. Documented By: Srinivas Patricia MD 01/22/23 4914 Signed By: <Electronically signed by Srinivas Patricia MD> 01/22/23 8001 [facility] Work Phone: 1(526) 586-864008-11-2023 Progress note Author Srinivas Patricia [facility] January 19, 2023 1:10pmNote Date/TimeAugust 2022 1:10pm[place] [address] Physiatry(Rehab) Progress Note Signed Patient: Taras Hayward MR#: [id number] : 1970 Acct:[id number] Age/Sex: 52 / M Adm Date: 3 Loc: Room: [address] [place] [address] Type: ADM IN Attending Dr: Srinivas Patricia MD Copies to: ~ Date of Service: 01/19/2023 Subjective Subjective Narrative: Mr. Hayward is a 52 year old male presenting to inpatient rehab unit with functional impairments secondary to left cerebellar CVA. His past medical history is notable for obesity, hypertension, nephrolithiasis, gastric bypass surgery. Patient presented to [place] emergency department via EMS with complaints of dizziness, nausea andvomiting, vertigo, and headache. He stated the symptoms started suddenly when he was sitting in thechair after returning from work thatday. CTA head and neck demonstrated left vertebral artery occlusion near originwhich prompted a transfer to [facility] in [place]. MRI of the brain showed late acute [...] demonstrating pseudocyst. On 12/30/2022 patient underwent a SAFETY DIRECTOR shunt placement due to obstructive hydrocephalus and malignant edema, EVD removed at that time. She was recommended acute rehabilitation for strengthening. On admission patient is alert and oriented x3, answers questions appropriately. No significant neurological deficits noted on assessment. He feels slightly off balance and experiences occasional dizziness with movement/position changes andintermittent nausea, but it has improved dramatically over the past several days. He reports no change in vision, his speech is clear and fluent. He reports no cardiopulmonary complaints. Heart rate noted to be elevated in 100s on assessment. He does take carvedilol for hypertension and tachycardia. Prior to most recent hospitalization he was generally healthy and worked full- time at [employer]. Interval History: In place for retention. [...] % (Auto) 53.7 Lymph % (Auto) 36.1 Person % (Auto) 8.7 Eos % (Auto) 1.2 Baso % (Auto) 0.3 Nucleat RBC Rel Count 0.2 Neut # (Auto) 4.7 Lymph # (Auto) 3.2 Person # (Auto) 0.8 Eos # (Auto) 0.1 [...] mg 01/03/23 15:41 Bisacodyl 10 Mg Supp.Rect NC 01/03/24 15:40 DAILY PRN Constipation Carvedilol 12.5 [...] 15:41 Docusate Enema 283 Mg/5 Ml Enema NC 01/03/24 15:40 DAILY PRN Constipation Lactulose 30 [...] DAILY LEANNA Administration Assessment/Plan Assessment/Plan (1) S/P SAFETY DIRECTOR shunt: Code(s): Z98.2 - Presence of cerebrospinal [...] functional impairmentssecondary to left cerebellar CVA s/p SAFETY DIRECTOR shunt placement due to development of hydrocephalus. [...] equipment to enhance the patient's a functional congregation Ensure adequate nutrition and hydration Sleep: No issues Pain: Continue current regimen Discharge planning:. Home next week. I spent greater than 25 minutes for services, including ogox-fq-sfsg encounter with the patient, discussion of the case, plan of care, and exam; and wbqhbvd-fm-mblg activities, such as reviewing pertinent corporate health consultant documentation, recent therapy notes, laboratory and radiology studies, and discussion of case with care team including physician, nursing, laborer rags, and therapists. More than 50 % of time was spent on patient/family counseling or coordination ofcare. Documented By: Srinivas Patricia MD 01/19/23 1308 Signed By: <Electronically signed by Srinivas Patricia MD> 01/19/23 1310 [facility] Work Phone: 1(275) 732-123908-11-2023 Progress note Author Srinivas Patricia [facility] January 19, 2023 12:14pmNote Date/TimeAugust 2022 1:17pm[place] [address] Physiatry(Rehab) Progress Note Signed Patient: Taras Hayward MR#: [id number] : 1970 Acct:[id number] Age/Sex: 52 / M Adm Date: 3 Loc: 5T Room: 6S6875-5 Type: ADM IN Attending Dr: Srinivas Patricia MD Copies to: ~ <Tisha Cardona, VICE PRESIDENT OF BUSINESS DEVELOPMENT - Last Filed: 01/18/23 13:51> Date of Service: 01/18/2023 Subjective <Tisha Cardona - Last Filed: 01/18/23 13:51> Subjective Narrative: Mr. Hayward is a 52 year old male presenting to inpatient rehab unit with functional impairments secondary to left cerebellar CVA. His past medical history is notable for obesity, hypertension, nephrolithiasis, gastric bypass surgery. Patient presented to [place] emergency department via EMS with complaints of dizziness, nausea andvomiting, vertigo, and headache. He stated the symptoms started suddenly when he was sitting in thechair after returning from work thatday. CTA head and neck demonstrated left vertebral artery occlusion near originwhich prompted a transfer to [facility] in [place]. MRI of the brain showed late acute [...] demonstrating pseudocyst. On 12/30/2022 patient underwent a SAFETY DIRECTOR shunt placement due to obstructive hydrocephalus and malignant edema, EVD removed at that time. She was recommended acute rehabilitation for strengthening. On admission patient is alert and oriented x3, answers questions appropriately. No significant neurological deficits noted on assessment. He feels slightly off balance and experiences occasional dizziness with movement/position changes andintermittent nausea, but it has improved dramatically over the past several days. He reports no change in vision, his speech is clear and fluent. He reports no cardiopulmonary complaints. Heart rate noted to be elevated in 100s on assessment. He does take carvedilol for hypertension and tachycardia. Prior to most recent hospitalization he was generally healthy and worked full- time at [employer]. Interval History: Feeling somewhat better this morning. No nausea/vomiting reported. Denies dizziness/lightheadednessor headache at this time. Still feels drowsy/tired. [...] right cranium with sutures intact. No surrounding erythemaor induration. Edges of the wounds are well [...] Insight: Good Judgment: Good Objective <Tisha Cardona, VICE PRESIDENT OF BUSINESS DEVELOPMENT - Last Filed: 01/18/23 13:51> Labs 01/13/23 [...] mg 01/03/23 15:41 Bisacodyl 10 Mg Supp.Rect NC 01/03/24 15:40 DAILY PRN Constipation Carvedilol 12.5 [...] 15:41 Docusate Enema 283 Mg/5 Ml Enema NC 01/03/24 15:40 DAILY PRN Constipation Lactulose 30 [...] mg DAILY LEANNA Administration Assessment/Plan <Tisha Cardona, VICE PRESIDENT OF BUSINESS DEVELOPMENT - Last Filed: 01/18/23 13:51> Assessment/Plan (1) S/P SAFETY DIRECTOR shunt: Code(s): Z98.2 - Presence of cerebrospinal [...] functional impairmentssecondary to left cerebellar CVA s/p SAFETY DIRECTOR shunt placement due to development of hydrocephalus. [...] equipment to enhance the patient's a functional congregation Ensure adequate nutrition and hydration Sleep: No issues Pain: Continue current regimen Discharge planning:. Home 1-2 weeks. I spent greater than 20 minutes for services, including dzxn-ss-iyol encounter with the patient, discussion of the case, plan of care, and exam; and rtortzl-xc-ujfg activities, such as reviewing pertinent corporate health consultant documentation, recent therapy notes, laboratory and radiology studies, and discussion of case with care team including physician, nursing, laborer rags, and therapists. More than 50 % of time was spent on patient/family counseling or coordination ofcare. Plan: 3 <Irvin Sifuentes MD - Last Filed: 01/19/23 09:00> Assessment/Plan (1) S/P SAFETY DIRECTOR shunt: (2) Hydrocephalus: (3) Cerebellar infarct: (4) Hypertension: (5) Obesity (BMI 35.0-39.9 without comorbidity): (6) Tachycardia: (7) Impaired mobility and activities of daily living: (8) DVT, popliteal, acute: Plan: I reviewed the history and the relevant portions of the chart, including currentorders, allied health and corporate health consultant notes, labs/imaging and plan of care as above. I reviewed the history and the relevant portions of the chart, including currentorders, allied health and corporate health consultant notes, labs/imaging and plan of care as above. Documented By: Tisha Cardona APRN 01/18/23 1 315 Signed By: <Electronically signed by RADHA Cardona> 01/18/23 1351 <Electronically signed by Srinivas Patricia MD> 01/19/23 1214 <Electronically signed by Irvin Sifuentes MD> 01/19/23 0900 [facility] Work Phone: 1([phone]) 546-121808-10-2023 Progress note Author Pilo Nieto [facility] January 18, 2023 5:10pmNote Date/TimeAugust 2022 5:10pm[place] [address] Neurology Progress Note Signed Patient: Taras Hayward MR#: [id number] : 1970 Acct:[id number] Age/Sex: 52 / M Adm Date: 3 Loc: Room: [address] [place] [address] Type: ADM IN Attending Dr: Srinivas Patricia [...] ventricle, status post suboccipital craniectomy as well asa right frontal approach ventriculoperitoneal shunt revised to a right parietal approach ventriculop eritoneal shunt.? It seems etiology for the stroke was never determined.? Multiple CT head images were reviewed.? He has some residual ataxicdysarthria and has mild ataxia in the left upper extremityin the left lower extremity. PLAN: The updated MRI of his brain from January 18, 2023 is unremarkable for any acute or concerning findings and shows the expected subacute ischemic changes and postsurgical changes. No other recommendations at this time. Code(s): I63.9 - Cerebral infarction, unspecified Status: Acute Documented By: Pilo Nieto DO 01/18/231706 Signed By: <Electronically signed by Pilo Nieto DO> 01/18/23 1710 [facility] Work Phone: 1([phone]) 113-100508-09-2023 Progress note Author Srinivas Patricia [facility] January 17, 2023 4:18pmNote Date/TimeAugust 2022 4:18pm[place] [address] Physiatry(Rehab) Progress Note Signed Patient: Taras Hayward MR#: [id number] : 1970 Acct:[id number] Age/Sex: 52 / M Adm Date: 3 Loc: Room: [address] [place] [address] Type: ADM IN Attending Dr: Srinivas Patricia MD Copies to: ~ Date of Service: 01/17/2023 Subjective Subjective Narrative: Mr. Hayward is a 52 year old male presenting to inpatient rehab unit with functional impairments secondary to left cerebellar CVA. His past medical history is notable for obesity, hypertension, nephrolithiasis, gastric bypass surgery. Patient presented to [place] emergency department via EMS with complaints of dizziness, nausea andvomiting, vertigo, and headache. He stated the symptoms started suddenly when he was sitting in thechair after returning from work thatday. CTA head and neck demonstrated left vertebral artery occlusion near originwhich prompted a transfer to [facility] in [place]. MRI of the brain showed late acute [...] demonstrating pseudocyst. On 12/30/2022 patient underwent a SAFETY DIRECTOR shunt placement due to obstructive hydrocephalus and malignant edema, EVD removed at that time. She was recommended acute rehabilitation for strengthening. On admission patient is alert and oriented x3, answers questions appropriately. No significant neurological deficits noted on assessment. He feels slightly off balance and experiences occasional dizziness with movement/position changes andintermittent nausea, but it has improved dramatically over the past several days. He reports no change in vision, his speech is clear and fluent. He reports no cardiopulmonary complaints. Heart rate noted to be elevated in 100s on assessment. He does take carvedilol for hypertension and tachycardia. Prior to most recent hospitalization he was generally healthy and worked full- time at [employer]. Interval History: NSGY able to interrogate [...] 05:00 01/17/23 07:30 Narrative: General: cooperative, comfortable [facility] Head: normal to inspection Eyes General: appearance [...] mg 01/03/23 15:41 Bisacodyl 10 Mg Supp.Rect NC 01/03/24 15:40 DAILY PRN Constipation Carvedilol 12.5 [...] 15:41 Docusate Enema 283 Mg/5 Ml Enema NC 01/03/24 15:40 DAILY PRN Constipation Lactulose 30 [...] DAILY LEANNA Administration Assessment/Plan Assessment/Plan (1) S/P SAFETY DIRECTOR shunt: Code(s): Z98.2 - Presence of cerebrospinal [...] functional impairmentssecondary to left cerebellar CVA s/p SAFETY DIRECTOR shunt placement due to development of hydrocephalus. . He does complain of continued intermittent headaches, nausea/vomiting, dizziness/lightheadedness. Therapy limited by dizziness/nausea this afternoon. This morning worked well with [employer], minimal dysarthria, improved vocal quality. I reviewed the case with [facility], they agree with current planof care, prior CTs reviewed, they donot feel [...] equipment to enhance the patient's a functional congregation Ensure adequate nutrition and hydration Sleep: No issues Pain: Continue current regimen Discharge planning:. Home 1-2 weeks. I spent greater than 35 minutes for services, including lqyg-jr-tifd encounter with the patient, discussion of the case, plan of care, and exam; and yfvhkge-og-cabl activities, such as reviewing pertinent corporate health consultant documentation, recent therapy notes, laboratory and radiology studies, and discussion of case with care team including physician, nursing, laborer rags, and therapists. More than 50 % of time was spent on patient/family counseling or coordination ofcare. Plan: 3 Documented By: Srinivas Patricia MD 01/17/231611 Signed By: <Electronically signed by Srinivas Patricia MD> 01/17/231617 [facility] Work Phone: 1(214) 612-861108-08-2023 Progress note Author Pilo Nieto [facility] January 16, 2023 6:10pmNote Date/TimeAugust 2022 6:10pm[place] [address] Neurology Progress Note Signed Patient: Taras Hayward MR#: [id number] : 1970 Acct:[id number] Age/Sex: 52 / M Adm Date: 3 Loc: Room: [address] [place] [address] Type: ADM IN Attending Dr: Srinivas Patricia [...] No new deficits to report. Nothing to addto review of systems. EXAMINATION: Well-kempt. No distress. [...] cerebellar hemispheric ischemic stroke on December complicated bylocalized edema and mass effect on the fourth ventricle, status post suboccipital craniectomy as well as a right frontal approach ventriculoperitoneal shunt revised to a right parietal approach ventri culoperitoneal shunt. It seems etiology for the stroke [...] By: <Electronically signed by Pilo Nieto DO> 01/16/231809 [facility] Work Phone: 1(163) 620-928008-08-2023 Progress note Author Srinivas Patricia [facility] January 16, 2023 2:58pmNote Date/TimeAugust 2022 2:59pm[place] [address] Physiatry(Rehab) Progress Note Signed Patient: Tarsa Hayward MR#: [id number] : 1970 Acct:[id number] Age/Sex: 52 / M Adm Date: 3 Loc: 5T Room: 7G0657-1 Type: ADM IN Attending Dr: Srinivas Patricia MD Copies to: ~ Date of Service: 01/16/2023 Subjective Subjective Narrative: Mr. Hayward is a 52 year old male presenting to inpatient rehab unit with functional impairments secondary to left cerebellar CVA. His past medical history is notable for obesity, hypertension, nephrolithiasis, gastric bypass surgery. Patient presented to [place] emergency department via EMS with complaints of dizziness, nausea andvomiting, vertigo, and headache. He stated the symptoms started suddenly when he was sitting in thechair after returning from work thatday. CTA head and neck demonstrated left vertebral artery occlusion near originwhich prompted a transfer to [facility] in [place]. MRI of the brain showed late acute [...] demonstrating pseudocyst. On 12/30/2022 patient underwent a SAFETY DIRECTOR shunt placement due to obstructive hydrocephalus and malignant edema, EVD removed at that time. She was recommended acute rehabilitation for strengthening. On admission patient is alert and oriented x3, answers questions appropriately. No significant neurological deficits noted on assessment. He feels slightly off balance and experiences occasional dizziness with movement/position changes andintermittent nausea, but it has improved dramatically over the past several days. He reports no change in vision, his speech is clear and fluent. He reports no cardiopulmonary complaints. Heart rate noted to be elevated in 100s on assessment. He does take carvedilol for hypertension and tachycardia. Prior to most recent hospitalization he was generally healthy and worked full- time at [employer]. Interval History: Seen and examined at [...] mg 01/03/23 15:41 Bisacodyl 10 Mg Supp.Rect NC 01/03/24 15:40 DAILY PRN Constipation Carvedilol 12.5 [...] 15:41 Docusate Enema 283 Mg/5 Ml Enema NC 01/03/24 15:40 DAILY PRN Constipation Lactulose 30 [...] DAILY LEANNA Administration Assessment/Plan Assessment/Plan (1) S/P SAFETY DIRECTOR shunt: Code(s): Z98.2 - Presence of cerebrospinal [...] functional impairmentssecondary to left cerebellar CVA s/p SAFETY DIRECTOR shunt placement due to development of hydrocephalus. [...] one was scheduled for follow up from [place], one after a fall and one after [...] equipment to enhance the patient's a functional congregation Ensure adequate nutrition and hydration Sleep: No issues Pain: Continue current regimen Discharge planning:. Recovery has been complicated by UTI and DVT. In a week or so, pending insurance recert. I spent greater than 25 minutes for services, including lgvn-ot-xtcd encounter with the patient, discussion of the case, plan of care, and exam; and cgprape-du-fsec activities, such as reviewing pertinent corporate health consultant documentation, recent therapy notes, laboratory and radiology studies, and discussion of case with care team including physician, nursing, laborer rags, and therapists. More than 50 % of time was spent on patient/family counseling or coordination ofcare. Documented By: Srinivas Patricia MD 01/16/231453 Signed By: <Electronically signed by Srinivas Patricia MD> 01/16/231457 [facility] Work Phone: 1(991) 209-292208-07-2023 Progress note Author Pilo Nieto [facility] January 15, 2023 5:03pmNote Date/TimeAugust 2022 8:05[place] [address] Neurology Progress Note Signed Patient: Taras Hayward MR#: [id number] : 1970 Acct:[id number] Age/Sex: 52 / M Adm Date: 3 Loc: Room: [address] [place] [address] Type: ADM IN Attending Dr: Srinivas Patricia [...] ventricle, status post suboccipital craniectomy as well asa right frontal approach ventriculoperitoneal shunt revised to a right parietal approach ventriculop eritoneal shunt. It seems etiology for the stroke was never determined. MultipleCT head images werereviewed. He has some residual ataxic dysarthria and has mild ataxia in the left upper extremity inthe left lower extremity. PLAN: I expect the ataxia to gradually improve. I expect any residual dizziness to also gradually improve. Continue any as needed medications. No new recommendations. Code(s): I63.9 - Cerebral infarction, unspecified Status: Acute Documented By: Pilo Nieto DO 01/15/23 0803 Signed By: <Electronically signed by Pilo Nieto DO> 01/15/23 2311 [facility] Work Phone: 1([phone]) 625-856808-07-2023 Progress note Author Srinivas Patricia [facility] January 15, 2023 1:09pmNote Date/TimeAugust 2022 1:[place]pm[place] [id number] Physiatry(Rehab) Progress Note Signed Patient: Taras Hayward MR#: [id number] : 1970 Acct:[id number] Age/Sex: 52 / M Adm Date: 3 Loc: Room: 0W6596-7 Type: ADM IN Attending Dr: Srinivas Patricia MD Copies to: ~ Date of Service: 01/15/2023 Subjective Subjective Narrative: Mr. Hayward is a 52 year old male presenting to inpatient rehab unit with functional impairments secondary to left cerebellar CVA. His past medical history is notable for obesity, hypertension, nephrolithiasis, gastric bypass surgery. Patient presented to [place] emergency department via EMS with complaints of dizziness, nausea andvomiting, vertigo, and headache. He stated the symptoms started suddenly when he was sitting in thechair after returning from work thatday. CTA head and neck demonstrated left vertebral artery occlusion near originwhich prompted a transfer to [facility] in [place]. MRI of the brain showed late acute [...] demonstrating pseudocyst. On 12/30/2022 patient underwent a SAFETY DIRECTOR shunt placement due to obstructive hydrocephalus and malignant edema, EVD removed at that time. She was recommended acute rehabilitation for strengthening. On admission patient is alert and oriented x3, answers questions appropriately. No significant neurological deficits noted on assessment. He feels slightly off balance and experiences occasional dizziness with movement/position changes andintermittent nausea, but it has improved dramatically over the past several days. He reports no change in vision, his speech is clear and fluent. He reports no cardiopulmonary complaints. Heart rate noted to be elevated in 100s on assessment. He does take carvedilol for hypertension and tachycardia. Prior to most recent hospitalization he was generally healthy and worked full- time at [employer]. Interval History: Reports symptoms are improved today. Reports symptoms are improved today. He was able to eat a few meals yesterday and did have breakfast this morning. She is sitting upright in bed in no acute distress. He looks brighter from a mood standpoint. He was able to ambulate 30 feet in the room today, able to self- correct the balance issues. His vitals are stable. [...] 08:44 01/15/23 08:44 Narrative: General: cooperative, comfortable HENMS Head: normal to inspection Eyes General: appearance [...] mg 01/03/23 15:41 Bisacodyl 10 Mg Supp.Rect NC 01/03/24 15:40 DAILY PRN Constipation Carvedilol 12.5 [...] 15:41 Docusate Enema 283 Mg/5 Ml Enema NC 01/03/24 15:40 DAILY PRN Constipation Lactulose 30 [...] DAILY LEANNA Administration Assessment/Plan Assessment/Plan (1) S/P SAFETY DIRECTOR shunt: Code(s): Z98.2 - Presence of cerebrospinal [...] functional impairmentssecondary to left cerebellar CVA s/p SAFETY DIRECTOR shunt placement due to development of hydrocephalus. . He does complain of continued intermittent headaches, nausea/vomiting, dizziness/lightheadedness. * Symptoms are improved today from the weekend. Appreciate neurology recommendations and medicationadjustments. * No focal neurologic changes appreciated, moves extremities antigravity, subtle dysarthria but intelligible. He denies any nausea today, denies headache. Tolerated therapy. * Complete antibiotics for UTI. * Continue Eliquis as ordered. * Think we can hold off on MRI/MRA for now unless he declines, but defer to Neurology. He's had 3 recent head CTs, one was scheduled for follow up from [place], and one after starting anticoagulation.None demonstrate acute issue s/p shunt and hydrocephalus. [...] equipment to enhance the patient's a functional congregation Ensure adequate nutrition and hydration Sleep: No issues Pain: Continue current regimen Discharge planning:. Recovery has been complicated by UTI and DVT. In a week or so, pending insurance recert. I spent greater than 25 minutes for services, including rhnr-vp-[id number] encounter with the patient, discussion of the case, plan of care, and exam; and vqubgcg-hv-fgna activities, such as reviewing pertinent corporate health consultant documentation, recent therapy notes, laboratory and radiology studies, and discussion of case with care team including physician, nursing, laborer rags, and therapists. More than 50 % of time was spent on patient/family counseling or coordination ofcare. Documented By: Srinivas Patricia MD 01/15/23 1304 Signed By: <Electronically signed by Srinivas Patricia MD> 01/15/23 1309 [facility] Work Phone: 1(644) 816-574408-06-2023 Consult note Author Megha Lacy [facility] January 14, 2023 12:14pmNote Date/TimeAugust 2022 10:58[place] [address] Neurology Consult Note Signed Patient: Taras Hayward MR#: [id number] : 1970 Acct:[id number] Age/Sex: 52 / M Adm Date: 3 Loc: Room: [address] [place] [address] Type: ADM IN Attending Dr: Srinivas Patricia MD Copies to: Srinivas Patricia MD NO FAMILY PHYSICIAN Megha Lacy DO~ HPI Consult Date: 01/14/23 Tearoom Host: Megha Lacy DO Reason for consult: cerebellar infarct s/p SAFETY DIRECTOR shunt placement. Consult Narrative HPI: 52 year old male being seen in Neurology consultation at the request of Dr. Patricia. Patient is currently admitted to the inpatient rehab unit for intense rehab after a left cerebellar infarct resulting in significant edema that required decompressive surgery and later developed hydrocephalus requiring placement of SAFETY DIRECTOR shunt. He has a prior history of obesity, hypertension, nephrolithiasis, gastric bypass surgery. The patient initally presented to [place] emergency department via EMS with complaints of dizziness, nausea and vomiting, vertigo, and headache.? He stated the symptoms started suddenly when he was sitting in the chair after returning from work that day.? CTA head and neck demonstrated left vertebral artery occlusion near origin which prompted a transfer to [facility] in [place]. He was found to have an evolving [...] herniation development.? He underwent suboccipital decompressive craniotomy andC1 laminectomy with right frontal EVD placement. On 12/19/2022 the above EVD was removed and replaced on 12/25/2022 due to complaints of a headache with subsequent CT imaging demonstrating pseudocyst.? On 12/30/2022 patient underwent a SAFETY DIRECTOR shunt placement due to obstructive hydrocephalus and malignant edema, EVD removed at that time. The pateint's treatment and work up was completed in [place]. The patient was then transferred to [facility] for acute rehab. The patient has continued [...] Hydrocephalus Hypertension Obesity Tachycardia Surgical History S/P SAFETY DIRECTOR shunt Social History Smoking Status: Never smoker [...] Harsh Rodriguez M.D.01/08/2023 3:35 PM [facility]ation [facility] 01/09/23 09:06 IMPRESSION: No significant interval change. No acute intracranial pathology. Impression dictated by: Harsh Rodriguez M.D.01/09/2023 11:00 AM Dictation Location: [employer]-12 Venous Duplex 01/11/23 07:54 IMPRESSION: This examination [...] infarct for which she was seen at [place]and then transferred to [place]. Sudden onset of dizziness headache and dysmetria. He did have complications of edema with shift requiring decompressive surgery and then hydrocephalus requiring SAFETY DIRECTOR shunt placement. He is now at [facility] for rehab. He has had continued dizziness [...] dose Valium prn which can be helpful buthave to watch for worsening sedation. Plan CT [...] - Hydrocephalus, unspecified Status: Acute (3) S/P SAFETY DIRECTOR shunt: Code(s): Z98.2 - Presence of cerebrospinal fluid drainage device Status: Acute (4) Dizziness: Code(s): R42 - Dizziness and giddiness Status: Acute (5) Nausea: Code(s): R11.0 - Nausea Status: Acute (6) DVT, popliteal, acute: Code(s): I82.439 - Acute embolism and thrombosis of unspecified popliteal vein Status: Acute Documented By: Megha Lacy DO 01/14/23 1051 Signed By: <Electronically signed by DO Megha Lacy> 01/14/23 [facility]4 [facility] Work Phone: 1(402) 940-878308-05-2023 Progress note Author Srinivas Patricia [facility] January 13, 2023 11:55amNote Date/TimeAugust 2022 10:05[place] [address] Physiatry(Rehab) Progress Note Signed Patient: Taras Hayward MR#: [id number] : 1970 Acct:[id number] Age/Sex: 52 / M Adm Date: 3 Loc: Room: 9L0218-3 Type: ADM IN Attending Dr: Srinivas Patricia MD Copies to: ~ Date of Service: 01/13/2023 Subjective Subjective Narrative: Mr. Hayward is a 52 year old male presenting to inpatient rehab unit with functional impairments secondary to left cerebellar CVA. His past medical history is notable for obesity, hypertension, nephrolithiasis, gastric bypass surgery. Patient presented to [place] emergency department via EMS with complaints of dizziness, nausea andvomiting, vertigo, and headache. He stated the symptoms started suddenly when he was sitting in thechair after returning from work thatday. CTA head and neck demonstrated left vertebral artery occlusion near originwhich prompted a transfer to [facility] in [place]. MRI of the brain showed late acute [...] demonstrating pseudocyst. On 12/30/2022 patient underwent a SAFETY DIRECTOR shunt placement due to obstructive hydrocephalus and malignant edema, EVD removed at that time. She was recommended acute rehabilitation for strengthening. On admission patient is alert and oriented x3, answers questions appropriately. No significant neurological deficits noted on assessment. He feels slightly off balance and experiences occasional dizziness with movement/position changes andintermittent nausea, but it has improved dramatically over the past several days. He reports no change in vision, his speech is clear and fluent. He reports no cardiopulmonary complaints. Heart rate noted to be elevated in 100s on assessment. He does take carvedilol for hypertension and tachycardia. Prior to most recent hospitalization he was generally healthy and worked full- time at [employer]. Interval History: He was started on anticoagulation after clearance by neurosurgery. I reviewed this over the phone with them personally overnight. Interval CT without evidence of hemorrhage. Final urine cultures reviewed, sensitive to Bactrim. He is demonstrating some evidence of retention. Otherwise his neurologicexam isunchanged. He is having some nausea. He [...] right cranium with sutures intact. No surrounding erythemaor induration. Edges of the wounds are well [...] mg 01/03/23 15:41 Bisacodyl 10 Mg Supp.Rect NC 01/03/24 15:40 DAILY PRN Constipation Carvedilol 12.5 mg 01/05/23 09:15 01/13/23 07:59 Carvedilol 12.5 Mg Tablet PO 01/05/24 09:14 12.5 mg Q12HR LEANNA Administration Docusate Sodium 100 mg 01/03/23 15:41 Docusate 100 Mg Capsule PO 01/03/24 15:40 BID PRN Constipation Docusate Sodium 283 mg 01/03/23 15:41 Docusate Enema 283 Mg/5 Ml Enema NC 01/03/24 15:40 DAILY PRN Constipation Lactulose 30 [...] DAILY LEANNA Administration Assessment/Plan Assessment/Plan (1) S/P SAFETY DIRECTOR shunt: Code(s): Z98.2 - Presence of cerebrospinal [...] functional impairmentssecondary to left cerebellar CVA s/p SAFETY DIRECTOR shunt placement due to development of hydrocephalus. [...] equipment to enhance the patient's a functional congregation Ensure adequate nutrition and hydration Sleep: No issues Pain: Continue current regimen Discharge planning: Home with partner next week, pending insurance recertification. I spent greater than 25 minutes for services, including gwdh-ua-[id number] encounter with the patient, discussion of the case, plan of care, and exam; and rhmrvrj-dk-cxvx activities, such as reviewing pertinent corporate health consultant documentation, recent therapy notes, laboratory and radiology studies, and discussion of case with care team including physician, nursing, laborer rags, andtherapists. More than 50 % of time was spent on patient/family counseling or coordination ofcare. Plan: \ Documented By: Srinivas Patricia MD 01/13/23 1005 Signed By: <Electronically signed by Srinivas Patricia MD> 01/13/23 3205 [facility] Work Phone: 1(117) [phone] Progress note Author Srinivas Patricia [facility] January 12, 2023 8:34pmNote Date/TimeAugust 2022 2:[place] [id number] Physiatry(Rehab) Progress Note Signed Patient: Taras Hayward MR#: [id number] : 1970 Acct:[id number] Age/Sex: 52 / M Adm Date: 3 Loc: Room: 6L5880-5 Type: ADM IN Attending Dr: Srinivas Patricia [...] nephrolithiasis, gastric bypass surgery. Patient presented to [place] emergency department via EMS with complaints of dizziness, nausea andvomiting, vertigo, and headache. He stated the symptoms started suddenly when he was sitting in thechair after returning from work thatday. CTA head and neck demonstrated left vertebral artery occlusion near originwhich prompted a transfer to [facility] in [place]. MRI of the brain showed late acute [...] demonstrating pseudocyst. On 12/30/2022 patient underwent a SAFETY DIRECTOR shunt placement due to obstructive hydrocephalus and malignant edema, EVD removed at that time. She was recommended acute rehabilitation for strengthening. On admission patient is alert and oriented x3, answers questions appropriately. No significant neurological deficits noted on assessment. He feels slightly off balance and experiences occasional dizziness with movement/position changes andintermittent nausea, but it has improved dramatically over the past several days. He reports no change in vision, his speech is clear and fluent. He reports no cardiopulmonary complaints. Heart rate noted to be elevated in 100s on assessment. He does take carvedilol for hypertension and tachycardia. Prior to most recent hospitalization he was generally healthy and worked full- time at [employer]. Interval History: Right leg venous ultrasound [...] walker and CGA plus wheelchair follow. CGA fortransfers. Review of Systems <Tisha Cardona APRN - [...] right cranium with sutures intact. No surrounding erythemaor induration. Edges of the wounds are well [...] Cloudy A Urine pH 6.0 Ur Specific [place] 1.019 Urine Protein Trace H Urine Glucose [...] Tablet PO 01/03/24 21:59 10 mg QHS LENANA Administration Aspirin 81 mg 01/04/23 09:00 01/11/23 [...] mg 01/03/23 15:41 Bisacodyl 10 Mg Supp.Rect NC 01/03/24 15:40 DAILY PRN Constipation Carvedilol 12.5 mg 01/05/23 09:15 01/11/23 08:41 Carvedilol 12.5 Mg Tablet PO 01/05/24 09:14 12.5 mg Q12HR LEANNA Administration Docusate Sodium 100 mg 01/03/23 15:41 Docusate 100 Mg Capsule PO 01/03/24 15:40 BID PRN Constipation Docusate Sodium 283 mg 01/03/23 15:41 Docusate Enema 283 Mg/5 Ml Enema NC 01/03/24 15:40 DAILY PRN Constipation Lactulose 30 [...] mg DAILY LEANNA Administration Assessment/Plan <Tisha Cardona, VICE PRESIDENT OF BUSINESS DEVELOPMENT - Last Filed: 01/11/23 14:16> Assessment/Plan (1) S/P SAFETY DIRECTOR shunt: Code(s): Z98.2 - Presence of cerebrospinal [...] functional impairmentssecondary to left cerebellar CVA s/p SAFETY DIRECTOR shunt placement due to development of hydrocephalus. [...] equipment to enhance the patient's a functional congregation Ensure adequate nutrition and hydration Sleep: No issues Pain: Continue current regimen Discharge planning: Home with partner next week, pending insurance recertification. I spent greater than 15 minutes for services, including cimc-ks-wimo encounter with the patient, discussion of the case, plan of care, and exam; and [id number]-sr-[id number] activities, such as reviewing pertinent corporate health consultant documentation, recent therapy notes, laboratory and radiology studies, and discussion of case with care team including physician, nursing, laborer rags, and therapists. More than 50 % of time was spent on patient/family counseling or coordination ofcare. <Srinivas Patricia MD - Last Filed: 01/12/23 20:34> Assessment/Plan (1) S/P SAFETY DIRECTOR shunt: (2) Hydrocephalus: (3) Cerebellar infarct: (4) Hypertension: (5) Obesity (BMI 35.0-39.9 without comorbidity): (6) Tachycardia: (7) Impaired mobility and activities of daily living: Plan: I reviewed the history and the relevant portions of the chart, including currentorders, allied health and corporate health consultant notes, labs/imaging and plan of care as above. Documented By: Tisha Cardona APRN 01/11/23 1 405 Signed By: <Electronically signed by RADHA Cardona> 01/11/23 1416 <Electronically signed by Srinivas Patricia MD> 01/12/232033 [facility] Work Phone: [phone]) [phone] Consult note Author Gerardo Miranda [facility] January 12, 2023 11:49amNote Date/TimeAugust 2022 4:28pm[place] [address] Vascular Surgery Consult Note Signed Patient: Taras Hayward MR#: [id number] : 1970 Acct:[id number] Age/Sex: 52 / M Adm Date: 3 Loc: Room: [address] [place] [address] Type: ADM IN Attending Dr: Srinivas Patricia [...] for hydrocephalus patient had recent placement of SAFETY DIRECTOR shunt in [place]. He currently suffers from ongoing nausea and [...] when I talkto him although he does answermy questions. On questioning him at bedside, he [...] Hydrocephalus Hypertension Obesity Tachycardia Surgical History S/P SAFETY DIRECTOR shunt Social History Smoking Status: Never smoker [...] answer my questions appropriately. Focused assessment of bilaterallower extremities does show mild generalized edema, no [...] Cloudy A Urine pH 6.0 Ur Specific [place] 1.019 Urine Protein Trace H Urine Glucose (UA) Normal Urine Ketones 1+ H Urine Occult Blood Trace H Urine Nitrite Negative Urine Bilirubin Negative Urine Urobilinogen Normal Ur Leukocyte Esterase 4+ H Urine RBC 10-19 H Urine WBC 50-100 H Ur Squamous Epith Cells None seen Urine Bacteria 4+ H Hyaline Casts 0-8 A&P - Vascular (1) S/P SAFETY DIRECTOR shunt: Code(s): Z98.2 - Presence of cerebrospinal [...] distal popliteal DVT by ultrasound, appears acute. Heshould be maintained on anticoagulant therapy if okay with his neurosurgery team. If not cleared for oral anticoagulation, will consider IVC filter placement. Recommend compression and elevation of the rightleg. Encourage ambulation. This is Dr. Miranda dictating. By ultrasound examination this patient has acutepopliteal level deepvein thrombosis and would require anticoagulation. This does not require thrombectomy. If he cannotbe anticoagulated for any reason then a vena cava filter could be placed. Code(s): I82.439 - Acute embolism and thrombosis of unspecified popliteal vein Status: Acute Documented By: Gracie Pizano APRN 01/11/23 1 625 Signed By: <Electronically signed by RADHA Pizano> 01/11/23 1702 <Electronically signed by MD Gerardo Miranda> 01/12/23 1145 [facility] Work Phone: 1(366) 391-990108-03-2023 Progress note Author Srinivas Patricia [facility] January 11, 2023 8:01amNote Date/TimeAugust 2022 3:05pm[place] [address] Physiatry(Rehab) Progress Note Signed Patient: Taras Hayward MR#: [id number] : 1970 Acct:[id number] Age/Sex: 52 / M Adm Date: 3 Loc: Room: [address] [place] [address] Type: ADM IN Attending Dr: Srinivas Patricia MD Copies to: ~ Date of Service: 01/10/2023 Subjective Subjective Narrative: Mr. Hayward is a 52 year old male presenting to inpatient rehab unit with functional impairments secondary to left cerebellar CVA. His past medical history is notable for obesity, hypertension, nephrolithiasis, gastric bypass surgery. Patient presented to [place] emergency department via EMS with complaints of dizziness, nausea andvomiting, vertigo, and headache. He stated the symptoms started suddenly when he was sitting in thechair after returning from work thatday. CTA head and neck demonstrated left vertebral artery occlusion near originwhich prompted a transfer to [facility] in [place]. MRI of the brain showed late acute [...] demonstrating pseudocyst. On 12/30/2022 patient underwent a SAFETY DIRECTOR shunt placement due to obstructive hydrocephalus and malignant edema, EVD removed at that time. She was recommended acute rehabilitation for strengthening. On admission patient is alert and oriented x3, answers questions appropriately. No significant neurological deficits noted on assessment. He feels slightly off balance and experiences occasional dizziness with movement/position changes andintermittent nausea, but it has improved dramatically over the past several days. He reports no change in vision, his speech is clear and fluent. He reports no cardiopulmonary complaints. Heart rate noted to be elevated in 100s on assessment. He does take carvedilol for hypertension and tachycardia. Prior to most recent hospitalization he was generally healthy and worked full- time at [employer]. Interval History: Ambulatory 180' and able to do one flight of stairs with therapy. Vitals are stable, no new focal neurologic deficit. Partner at bedside, notes patient seems more fatigued and was a little confused this morning. CT head last two days largely unremarkable, results to NSGY in [place]. Family concerned about mood, wonders if patient becoming more depressed. Review of Systems Review of Systems All other systems reviewed & are negative unless noted below or in HPI Exam Physical Exam Vital Signs: Temp Pulse Resp BP Pulse Ox O2 Del Method 98.9 F 98 H 15 118/70 94 L Room Air 08/02/23 05:00 01/10/23 08:40 01/10/23 05:00 01/10/23 08:40 01/10/23 08:40 01/10/23 08:40 Narrative: Const General: cooperative, comfortable, no acute distress, well developed Nutritional Appearance: Normal body habitus Orientation: alert, awake and oriented x3 Limitations: None HEENT Head: Multiple surgical incisions to the right cranium with sutures intact. No surrounding erythemaor induration. Edges of the wounds are well [...] mg 01/03/23 15:41 Bisacodyl 10 Mg Supp.Rect NC 01/03/24 15:40 DAILY PRN Constipation Carvedilol 12.5 mg 01/05/23 09:15 01/10/23 08:42 Carvedilol 12.5 Mg Tablet PO 01/05/24 09:14 12.5 mg Q12HR LEANNA Administration Docusate Sodium 100 mg 01/03/23 15:41 Docusate 100 Mg Capsule PO 01/03/24 15:40 BID PRN Constipation Docusate Sodium 283 mg 01/03/23 15:41 Docusate Enema 283 Mg/5 Ml Enema NC 01/03/24 15:40 DAILY PRN Constipation Lactulose 30 [...] PRN PRN Flush Assessment/Plan Assessment/Plan (1) S/P SAFETY DIRECTOR shunt: Code(s): Z98.2 - Presence of cerebrospinal [...] functional impairmentssecondary to left cerebellar CVA s/p SAFETY DIRECTOR shunt placement due to development of hydrocephalus. . He does complain of continued intermittent headaches, nausea/vomiting, dizziness/lightheadedness. * D/c elavil and start effexor, may have been contributing to dizziness/lightheadedness and morningfatigue. * Check UA * Should confusion persist [...] equipment to enhance the patient's a functional congregation Ensure adequate nutrition and hydration Sleep: No issues Pain: Continue current regimen Discharge planning: Home with partner next week, pending insurance recertification. Plan: I completed a substantive portion of this encounter, the medical decision makingportion of this note in its entirety, including Allied health note review, nursing note review, corporate health consultant note review,discussion with nursing and case management, and more than 50% of my time was spent on counseling and coordination of care, time spent 25 minutes Patient was personally seen by me, Dr. Patricia, on the day of encounter, reviewed the history and therelevant portions of the chart, including current orders, allied health and corporate health consultant notes, labs/imaging and performed coronado elements of exam and I formulated the plan of care and facilitated the medical decision making. Documented By: Srinivas Patricia MD 01/10/23 1505 Signed By: <Electronically signed by Srinivas Patricia MD> 01/11/23 0801 [facility] Work Phone: 1(275) 578-328908-01-2023 Progress note Author Srinivas Patricia [facility] January 09, 2023 2:58pmNote Date/TimeAugust 2022 12:43pm[place] [address] Physiatry(Rehab) Progress Note Signed Patient: Tarsa Hayward MR#: [id number] : 1970 Acct:[id number] Age/Sex: 52 / M Adm Date: 3 Loc: Room: 6S6612-2 Type: ADM IN Attending Dr: Srinivas Patricia [...] nephrolithiasis, gastric bypass surgery. Patient presented to [place] emergency department via EMS with complaints of dizziness, nausea andvomiting, vertigo, and headache. He stated the symptoms started suddenly when he was sitting in thechair after returning from work thatday. CTA head and neck demonstrated left vertebral artery occlusion near originwhich prompted a transfer to [facility] in [place]. MRI of the brain showed late acute [...] demonstrating pseudocyst. On 12/30/2022 patient underwent a SAFETY DIRECTOR shunt placement due to obstructive hydrocephalus and malignant edema, EVD removed at that time. She was recommended acute rehabilitation for strengthening. On admission patient is alert and oriented x3, answers questions appropriately. No significant neurological deficits noted on assessment. He feels slightly off balance and experiences occasional dizziness with movement/position changes andintermittent nausea, but it has improved dramatically over the past several days. He reports no change in vision, his speech is clear and fluent. He reports no cardiopulmonary complaints. Heart rate noted to be elevated in 100s on assessment. He does take carvedilol for hypertension and tachycardia. Prior to most recent hospitalization he was generally healthy and worked full- time at [employer]. Interval History: Yuniel sustained a fall [...] right cranium with sutures intact. No surrounding erythemaor induration. Edges of the wounds are well [...] % (Auto) 54.8 Lymph % (Auto) 36.0 Person % (Auto) 7.3 Eos % (Auto) 1.6 Baso % (Auto) 0.3 Nucleat RBC Rel Count 0.2 Neut # (Auto) 3.5 Lymph # (Auto) 2.3 Person # (Auto) 0.5 Eos # (Auto) 0.1 [...] mg 01/03/23 15:41 Bisacodyl 10 Mg Supp.Rect NC 01/03/24 15:40 DAILY PRN Constipation Carvedilol 12.5 mg 01/05/23 09:15 01/09/23 11:13 Carvedilol 12.5 Mg Tablet PO 01/05/24 09:14 12.5 mg Q12HR LEANNA Administration Docusate Sodium 100 mg 01/03/23 15:41 Docusate 100 Mg Capsule PO 01/03/24 15:40 BID PRN Constipation Docusate Sodium 283 mg 01/03/23 15:41 Docusate Enema 283 Mg/5 Ml Enema NC 01/03/24 15:40 DAILY PRN Constipation Lactulose 30 [...] 11:12 Sennosides/Docusate 8.6-50mg 1 Tab Tablet PO 07/25/24 20:59 2 tab BID LEANNA Administration Sennosides 2 tab 01/04/23 12:00 Sennosides 8.6 Mg Tablet PO 01/04/24 11:59 DAILY@12 PRN If no BM in 2 days Sodium Chloride 0 ml 01/03/23 15:41 Sodium Chloride 0.9 % 10 Ml Syringe IV-PUSH 01/03/24 15:40 PRN PRN Flush Assessment/Plan <Tisha Cardona APRN - Last Filed: 01/09/23 13:29> Assessment/Plan (1) S/P SAFETY DIRECTOR shunt: Code(s): Z98.2 - Presence of cerebrospinal [...] functional impairmentssecondary to left cerebellar CVA s/p SAFETY DIRECTOR shunt placement due to development of hydrocephalus. Significant neurological deficits on assessment. He does complain of continued intermittent headaches, nausea/vomiting, dizzine ss/lightheadedness. * CT head yesterday afternoon due to continued dizziness/lightheadedness and some nausea. This was notable for slightly enlarged ventricles when compared to prior exam as well as chronic appearing changes in the posterior fossa and gliosis/encephalomalacia in the left hemisphere. Patient's symptomsresolved overnight. * Fall with a head injury this AM. Repeat CT without acute intracranial abnormality and no significant interval change from yesterday. Imaging results were faxed to patient's neurosurgeon in [place]. * Left upper lip laceration will be [...] equipment to enhance the patient's a functional congregation Ensure adequate nutrition and hydration Sleep: No issues Pain: Continue current regimen Discharge planning: Home with partner and 7 to 10 days. I spent greater than 15 minutes for services, including [id number] encounter with the patient, discussion of the case, plan of care, and exam; and ibpnqlv-me-uaff activities, such as reviewing pertinent corporate health consultant documentation, recent therapy notes, laboratory and radiology studies, and discussion of case with care team including physician, nursing, laborer rags, and therapists. More than 50 % of time was spent on patient/family counseling or coordination ofcare. <Srinivas Patricia MD - Last Filed: 01/09/23 14:58> Assessment/Plan (1) S/P SAFETY DIRECTOR shunt: (2) Hydrocephalus: (3) Cerebellar infarct: (4) Hypertension: (5) Obesity (BMI 35.0-39.9 without comorbidity): (6) Tachycardia: (7) Impaired mobility and activities of daily living: Plan: I completed a substantive portion of this encounter, the medical decision makingportion of this note in its entirety, including Allied health note review, nursing note review, corporate health consultant note review,discussion with nursing and case management, and more than 50% of my time was spent on counseling and coordination of care, time spent 25 minutes Patient was personally seen by me, Dr. Patricia, on the day of encounter, reviewed the history and therelevant portions of the chart, including current orders, allied health and corporate health consultant notes, labs/imaging and performed coronado elements [...] signed by Srinivas Patricia MD> 01/09/23 1458 [facility] Work Phone: [phone]) 748-498607-31-2023 Progress note Author Srinivas Patricia [facility] January 08, 2023 1:09pmNote Date/TimeJuly 2022 10:50[place] [address] Physiatry(Rehab) Progress Note Signed Patient: Taras Hayward MR#: [id number] : 1970 Acct:[id number] Age/Sex: 52 / M Adm Date: 3 Loc: Room: [address] [place] [address] Type: ADM IN Attending Dr: Srinivas Patricia [...] nephrolithiasis, gastric bypass surgery. Patient presented to [place] emergency department via EMS with complaints of dizziness, nausea andvomiting, vertigo, and headache. He stated the symptoms started suddenly when he was sitting in thechair after returning from work thatday. CTA head and neck demonstrated left vertebral artery occlusion near originwhich prompted a transfer to [facility] in [place]. MRI of the brain showed late acute [...] demonstrating pseudocyst. On 12/30/2022 patient underwent a SAFETY DIRECTOR shunt placement due to obstructive hydrocephalus and malignant edema, EVD removed at that time. She was recommended acute rehabilitation for strengthening. On admission patient is alert and oriented x3, answers questions appropriately. No significant neurological deficits noted on assessment. He feels slightly off balance and experiences occasional dizziness with movement/position changes andintermittent nausea, but it has improved dramatically over the past several days. He reports no change in vision, his speech is clear and fluent. He reports no cardiopulmonary complaints. Heart rate noted to be elevated in 100s on assessment. He does take carvedilol for hypertension and tachycardia. Prior to most recent hospitalization he was generally healthy and worked full- time at [employer]. Interval History: Seen and examined in his room while resting in bed. He feels nauseated and somewhat dizzy this morning. Reports mild headache. No new neurological deficits. His vitals are stable, BP within normal limits. He was medicated with some Zofran earlier. We will monitor symptoms closely. Repeat CT head ifsymptoms do not improve or worsen. Chronic conditions [...] right cranium with sutures intact. No surrounding erythemaor induration. Edges of the wounds are well [...] Insight: Good Judgment: Good Objective <Tisha Cardona, VICE PRESIDENT OF BUSINESS DEVELOPMENT - Last Filed: 01/08/23 10:54> Labs 01/04/23 [...] mg 01/03/23 15:41 Bisacodyl 10 Mg Supp.Rect NC 01/03/24 15:40 DAILY PRN Constipation Carvedilol 12.5 mg 01/05/23 09:15 01/08/23 09:35 Carvedilol 12.5 Mg Tablet PO 01/05/24 09:14 12.5 mg Q12HR LEANNA Administration Docusate Sodium 100 mg 01/03/23 15:41 Docusate 100 Mg Capsule PO 01/03/24 15:40 BID PRN Constipation Docusate Sodium 283 mg 01/03/23 15:41 Docusate Enema 283 Mg/5 Ml Enema NC 01/03/24 15:40 DAILY PRN Constipation Lactulose 30 [...] 15:40 PRN PRN Flush Assessment/Plan <Tisha Cardona, VICE PRESIDENT OF BUSINESS DEVELOPMENT - Last Filed: 01/08/23 10:54> Assessment/Plan (1) S/P SAFETY DIRECTOR shunt: Code(s): Z98.2 - Presence of cerebrospinal [...] functional impairmentssecondary to left cerebellar CVA s/p SAFETY DIRECTOR shunt placement due to development of hydrocephalus. Significant neurological deficits on assessment. He does complain of continued intermittent headaches, nausea/vomiting, dizzine ss/lightheadedness. * Headache, nausea and dizziness this morning. [...] equipment to enhance the patient's a functional congregation Ensure adequate nutrition and hydration Sleep: No issues Pain: Continue current regimen Discharge planning: Home with partner and 7 to 10 days. I spent greater than 15 minutes for services, including yvkr-[id number] encounter with the patient, discussion of the case, plan of care, and exam; and ohmyhda-[id number]-[id number] activities, such as reviewing pertinent corporate health consultant documentation, recent therapy notes, laboratory and radiology studies, and discussion of case with care team including physician, nursing, laborer rags, and therapists. More than 50 % of time was spent on patient/family counseling or coordination ofcare. <Srinivas Patricia MD - Last Filed: 01/08/23 13:09> Assessment/Plan (1) S/P SAFETY DIRECTOR shunt: (2) Hydrocephalus: (3) Cerebellar infarct: (4) Hypertension: (5) Obesity (BMI 35.0-39.9 without comorbidity): (6) Tachycardia: (7) Impaired mobility and activities of daily living: Plan: I completed a substantive portion of this encounter, the medical decision makingportion of this note in its entirety, including Allied health note review, nursing note review, corporate health consultant note review,discussion with nursing and case management, and more than 50% of my time was spent on counseling and coordination of care, time spent 20 minutes Patient was personally seen by me, Dr. Patricia, on the day of encounter, reviewed the history and therelevant portions of the chart, including current orders, allied health and corporate health consultant notes, labs/imaging and performed coronado elements [...] <Electronically signed by Srinivas Patricia MD> 01/08/23 8070 [facility] Work Phone: 1(367) 774-674607-28-2023 Progress note Author Srinivas Patricia [facility] January 05, 2023 2:39pmNote Date/TimeJuly 2022 2:39pmJohn [place] [id number] Physiatry(Rehab) Progress Note Signed Patient: Taras Hayward MR#: [id number] : 1970 Acct:[id number] Age/Sex: 52 / M Adm Date: 3 Loc: 5T Room: 7A5270-2 Type: ADM IN Attending Dr: Srinivas Patricia MD Copies to: ~ Date of Service: 01/05/2023 Subjective Subjective Narrative: Mr. Hayward is a 52 year old male presenting to inpatient rehab unit with functional impairments secondary to left cerebellar CVA. His past medical history is notable for obesity, hypertension, nephrolithiasis, gastric bypass surgery. Patient presented to [place] emergency department via EMS with complaints of dizziness, nausea andvomiting, vertigo, and headache. He stated the symptoms started suddenly when he was sitting in thechair after returning from work thatday. CTA head and neck [facility] in [place]. MRI of the brain showed late acute [...] demonstrating pseudocyst. On 12/30/2022 patient underwent a SAFETY DIRECTOR shunt placement due to obstructive hydrocephalus and malignant edema, EVD removed at that time. She was recommended acute rehabilitation for strengthening. On admission patient is alert and oriented x3, answers questions appropriately. No significant neurological deficits noted on assessment. He feels slightly off balance and experiences occasional dizziness with movement/position changes andintermittent nausea, but it has improved dramatically over the past several days. He reports no change in vision, his speech is clear and fluent. He reports no cardiopulmonary complaints. Heart rate noted to be elevated in 100s on assessment. He does take carvedilol for hypertension and tachycardia. Prior to most recent hospitalization he was generally healthy and worked full- time at [employer]. Interval History: No events overnight, tolerating [...] right cranium with sutures intact. No surrounding erythemaor induration. Edges of the wounds are well [...] mg 01/03/23 15:41 Bisacodyl 10 Mg Supp.Rect NC 01/03/24 15:40 DAILY PRN Constipation Carvedilol 12.5 mg 01/05/23 09:15 01/05/23 09:40 Carvedilol 12.5 Mg Tablet PO 01/05/24 09:14 12.5 mg Q12HR LEANNA Administration Docusate Sodium 100 mg 01/03/23 15:41 Docusate 100 Mg Capsule PO 01/03/24 15:40 BID PRN Constipation Docusate Sodium 283 mg 01/03/23 15:41 Docusate Enema 283 Mg/5 Ml Enema NC 01/03/24 15:40 DAILY PRN Constipation Lactulose 30 [...] PRN PRN Flush Assessment/Plan Assessment/Plan (1) S/P SAFETY DIRECTOR shunt: Code(s): Z98.2 - Presence of cerebrospinal [...] functional impairmentssecondary to left cerebellar CVA s/p SAFETY DIRECTOR shunt placement due to development of hydrocephalus. Significant neurological deficits on assessment. He does complain of continued intermittent headaches, nausea/vomiting, dizzine ss/lightheadedness. * Increase Coreg and titrate * Progressing [...] equipment to enhance the patient's a functional congregation Ensure adequate nutrition and hydration Sleep: No issues Pain: Continue current regimen Discharge planning: Home with partner and 7 to 10 days. Plan: I completed a substantive portion of this encounter, the medical decision makingportion of this note in its entirety, including Allied health note review, nursing note review, corporate health consultant note review,discussion with nursing and case management, and more than 50% of my time was spent on counseling and coordination of care, time spent 65 minutes Patient was personally seen by me, Dr. Patricia, on the day of encounter, reviewed the history and therelevant portions of the chart, including current orders, allied health and corporate health consultant notes, labs/imaging and performed coronado elements of exam and I formulated the plan of care and facilitated the medical decision making. Documented By: Srinivas Patricia MD 01/05/231437 Signed By: <Electronically signed by Srinivas Patricia MD> 01/05/239 [facility] Work Phone: 1(521) 388-805807-28-2023 History and physical note Author Srinivas Patricia [facility] January 05, 2023 10:29amNote Date/TimeJuly 2022 10:08[place] [address] Physiatry (Rehab) H&P Signed Patient: Taras Hayward MR#: [id number] : 1970 Acct:[id number] Age/Sex: 52 / M Adm Date: 3 Loc: Room: [address] [place] [address] Type: ADM IN Attending Dr: Srinivas Patricia [...] nephrolithiasis, gastric bypass surgery. Patient presented to [place] emergency department via EMS with complaints of dizziness, nausea andvomiting, vertigo, and headache. He stated the symptoms started suddenly when he was sitting in thechair after returning from work thatday. CTA head and neck demonstrated left vertebral artery occlusion near originwhich prompted a transfer to [facility] in [place]. MRI of the brain showed late acute [...] demonstrating pseudocyst. On 12/30/2022 patient underwent a SAFETY DIRECTOR shunt placement due to obstructive hydrocephalus and malignant edema, EVD removed at that time. She was recommended acute rehabilitation for strengthening. On admission patient is alert and oriented x3, answers questions appropriately. No significant neurological deficits noted on assessment. He feels slightly off balance and experiences occasional dizziness with movement/position changes andintermittent nausea, but it has improved dramatically over the past several days. He reports no change in vision, his speech is clear and fluent. He reports no cardiopulmonary complaints. Heart rate noted to be elevated in 100s on assessment. He does take carvedilol for hypertension and tachycardia. Prior to most recent hospitalization he was generally healthy and worked full- time at [employer]. <Srinivas Patricia MD - Last Filed: 01/05/23 10:29> Etiologic Diagnosis/Impairment Group: Stroke Chief complaint: weakness and difficulty functioning History of Present Illness: Mr. Hayward is a 52 year old male presenting to inpatient rehab unit with functional impairments secondary to left cerebellar CVA. His past medical history is notable for obesity, hypertension, nephrolithiasis, gastric bypass surgery. Patient presented to [place] emergency department via EMS with complaints of dizziness, nausea andvomiting, vertigo, and headache. He stated the symptoms started suddenly when he was sitting in thechair after returning from work thatday. CTA head and neck demonstrated left vertebral artery occlusion near originwhich prompted a transfer to [facility] in [place]. MRI of the brain showed late acute [...] demonstrating pseudocyst. On 12/30/2022 patient underwent a SAFETY DIRECTOR shunt placement due to obstructive hydrocephalus and malignant edema, EVD removed at that time. She was recommended acute rehabilitation for strengthening. On admission patient is alert and oriented x3, answers questions appropriately. No significant neurological deficits noted on assessment. He feels slightly off balance and experiences occasional dizziness with movement/position changes andintermittent nausea, but it has improved dramatically over the past several days. He reports no change in vision, his speech is clear and fluent. He reports no cardiopulmonary complaints. Heart rate noted to be elevated in 100s on assessment. He does take carvedilol for hypertension and tachycardia. Prior to most recent hospitalization he was generally healthy and worked full- time at [employer]. PMFSH <Tisha Cardona APRN - Last [...] 10 Mg Tablet) 10 mg PO QHS [facility] Stop: 01/03/24 21:59 Last Admin: 01/03/23 21:15 Dose: 10 mg Aspirin (Aspirin 81 Mg Tablet.Dr) [facility] Stop: 01/04/24 08:59 Last Admin: 01/04/23 08:15 Dose: 81 mg Atorvastatin Calcium (Atorvastatin 10 Mg Tablet) 10 mg PO QHS [facility] Stop: 01/03/24 21:59 Last Admin: 01/03/23 21:15 Dose: 10 mg Bisacodyl (Bisacodyl 10 Mg Supp.Rect) 10 mg NC DAILY PRN PRN Reason: Constipation Stop: 01/03/24 15:40 Carvedilol (Carvedilol 6.25 Mg Tablet) 6.25 mg PO Q12H [facility] Stop: 01/03/24 15:59 Last Admin: 01/04/23 05:25 Dose: 6.25 mg Docusate Sodium (Docusate 100 Mg Capsule) 100 mg PO BID PRN PRN Reason: Constipation Stop: 01/03/24 15:40 Docusate Sodium (Docusate Enema 283 Mg/5 Ml Enema) 283 mg NC DAILY PRN PRN Reason: Constipation Stop: 01/03/24 15:40 Lactulose (Lactulose 20 Gm/30 Ml Udc) 30 gm PO DAILY PRN PRN Reason: Constipation Stop: 01/03/24 15:40 Melatonin (Melatonin 3 Mg Tablet) 3 mg PO HS LEANNA Stop: 01/03/24 21:59 Last Admin: 01/03/23 [...] 1 Tab Tablet) 2 tab PO BID [facility] Stop: 01/03/24 20:59 Last Admin: 01/04/23 08:15 [...] right cranium with sutures intact. No surrounding erythemaor induration. Edges of the wounds are well [...] % (Auto) 55.0 Lymph % (Auto) 33.7 Person % (Auto) 9.3 Eos % (Auto) 1.6 Baso % (Auto) 0.4 Nucleat RBC Rel Count 0.1 Neut # (Auto) 4.5 Lymph # (Auto) 2.8 Person # (Auto) 0.8 Eos # (Auto) 0.1 [...] and obtained and summated medical records and haveordered follow up lab tests and imaging studies [...] 2 weeks Expected Discharge Destination: Home Rehabilitation IGC: 01.2 Primary Diagnosis: Left cerebellar stroke To have patient become more independent and to return home. Medical/ Functional Prognosis: Good Anticipated Functional Outcomes/Goals and Interventions: 1.Therapy Functional Outcome/Goal: Anticipate independent for bed mobility Anticipated interventions: Physician management, PT, OT, JUNIOR HIGH SCHOOL PRINCIPAL, , Dietitian, RehabNursing, Case management 2. Therapy Functional Outcome/Goal: Anticipate independent for transfers Anticipated interventions: Physician management, PT, OT, JUNIOR HIGH SCHOOL PRINCIPAL, Case management, Dietitian, Rehab Nursing 3. Therapy Functional Outcome/Goal: Anticipate independent for ambulation Anticipated interventions: Physician management, PT, OT, JUNIOR HIGH SCHOOL PRINCIPAL Case management, Dietitian, Rehab Nursing 4.Therapy Functional Outcome/Goal: Anticipate independent for self-care Anticipated interventions: Physician management, PT, OT, JUNIOR HIGH SCHOOL PRINCIPAL, Case management, Dietitian, Rehab Nursing 5.Therapy Functional Outcome/Goal: Anticipate independent for functional cognition and swallowing Anticipated interventions: Physician management, PT, OT, JUNIOR HIGH SCHOOL PRINCIPAL, Case management, Dietitian, Rehab Nursing Required Therapy PT: 1 hour per day at least 5 days per week with additional therapy on as neededbasis. Comments: PT to improve pt's strength, endurance, bed mobility, transfers (sit- stand), standing balance, gait quality on level surfaces [...] additional therapy on as needed basis. Comments: JUNIOR HIGH SCHOOL PRINCIPAL to evaluate and treat patient?s cognition, language and communication skills, assess swallow function. Other: Dietitian, Rehab nursing, Wound, P&O, Neuropsychology as needed RATIONALE FOR IRF ADMISSION: Patient has both medical and functional complexities that require 24 hour daily monitoring and intervention from Agricultural Equipment Mechanic as well as other consulting physicians including internal medicine as well as 24 hour daily contracts intern nursing - for medical safe / optimal manageme nt. Patient requires interdisciplinary therapy team rehabilitation care including OT, PT, JUNIOR HIGH SCHOOL PRINCIPAL, SW, Psychology, Rehab Nursing, requires and can tolerate at least 3 hours of daily OT and PT therapy at least 5 days weekly. The following medical conditions significantly impact the rehabilitation process andare being addressed daily and can not be managed at home or in a lesser intense medical setting: Refer to above problem oriented plan of care Assessment/Plan <Tisha Cardona APRN - Last Filed: 01/04/23 11:34> (1) S/P SAFETY DIRECTOR shunt: Code(s): Z98.2 - Presence of cerebrospinal [...] functional impairmentssecondary to left cerebellar CVA s/p SAFETY DIRECTOR shunt placement due to development of hydrocephalus. Significant neurological deficits on assessment. He does complain of continued intermittent headaches, nausea/vomiting, dizzine ss/lightheadedness. * Continue statin and aspirin * Monitor surgical incisions for any signs of infection. * May have Zofran as needed for nausea/vomiting * EKG obtained due to tachycardia. Demonstrates sinus tach with rate of 111. Patient is asymptomatic and denies palpitations or chest pain. Home carvedilol was reduced to 6.25 mg twice daily from 25 mg bid at [facility] due to hypotension. Will monitor for now, [...] equipment to enhance the patient's a functional congregation Ensure adequate nutrition and hydration Sleep: No issues Pain: Continue current regimen Discharge planning: Home with partner and 7 to 10 days. I spent greater than 45 minutes for services, including [id number] encounter with the patient, discussion of the case, plan of care, and exam; and [id number]-[id number] activities, such as reviewing pertinent corporate health consultant documentation, recent therapy notes, laboratory and radiology studies, and discussion of case with care team including physician, nursing, laborer rags, and therapists. More than 50 % of time was spent on patient/family counseling or coordination ofcare. <Srinivas Patricia MD - Last Filed: 01/05/23 10:29> (1) S/P SAFETY DIRECTOR shunt: (2) Hydrocephalus: (3) Cerebellar infarct: (4) Hypertension: (5) Obesity (BMI 35.0-39.9 without comorbidity): (6) Tachycardia: (7) Impaired mobility and activities of daily living: Plan: I completed a substantive portion of this encounter, the medical decision makingportion of this note in its entirety, including Allied health note review, nursing note review, corporate health consultant note review,discussion with nursing and case management, and more than 50% of my time was spent on counseling and coordination of care, time spent 65 minutes Patient was personally seen by me, Dr. Patricia, on the day of encounter, reviewed the history and therelevant portions of the chart, including current orders, allied health and corporate health consultant notes, labs/imaging and performed coronado elements of exam and I formulated the plan of care and facilitated the medical decision making. Documented By: Tisha Cardona APRN 01/04/23 1 007 Signed By: <Electronically signed by RADHA Cardona> 01/04/23 1134 <Electronically signed by Srinivas Patricia MD> 01/05/23 1029 [facility] Work Phone: [phone] 520-880904-10-2023 Evaluation note* Encounter Date Diagnosis Assessment Notes Treatment Notes Treatment Clinical Notes Sep, Essential hypertension (ICD-10 - I10) [employer] Other 03-23-2023 Evaluation note* Encounter Date Diagnosis Assessment Notes Treatment Notes Treatment Clinical Notes Aug, Essential hypertension (ICD-10 - I10) This patient is instructed to consume a healthy, low-fat, low-salt diet. They are also encouraged to continue exercise to achieve/maintain a normal BMI. Aug,Tachycardia (ICD-10 - R00.0)Avoid stimulants, hydrate. Increasing Coreg to 25mg bid has lowered his resting HR into the 80s BP stable Aug,IFG (impaired fasting glucose) (ICD-10 - R73.01)This patient is following a comprehensive diabetic treatment [...] office visit. Increase Ozempic to 2mg weekly Aug,ariatric surgery status (ICD-10 - Z98.84)Monitor vitamin levels. [employer] Other 02-27-2023 Evaluation note* Encounter Date Diagnosis Assessment Notes Treatment Notes Treatment Clinical Notes Jul, Heart palpitations (ICD-10 - R00 .2) [employer] Other 02-08-2023 Hospital Discharge instructions Patient Education 07/19/2022 15:38:46 Kidney Stones, Jdvp-ru-Myeh Kidney Stones Kidney stones are rock-like masses [...] Follow these instructions at home: Medicines Take ddtd-oet-duqkrro and prescription medicines only as told by [...] 11/13/2008 Document Revised: 10/14/2019 Document Reviewed: 10/14/2019 [employer] Patient Education 2019 [employer]. Follow Up Care 05/31/2022 14:29:12 With:SLADE ALCALA, SANDRA Mina Address: [address] [employer] [address] [address]- When: Unknown [facility] 12-21-2022 Hospital Discharge instructions Patient [...] Care 05/24/2022 15:04:09 With:Konrad LILLY Address: [address] [place] [address]- Business (1) When:6 weeks Comments:Call for followup appointment. A bladder scan will be performed at that visit. Poonam Rahman [facility]12-15-2022 Hospital Discharge instructions Follow Up Care 05/25/2022 09:10:49 With:SLADE ALCALA, Konrad Jones, URL Address: [address] [place] [address] [place] [address]- When: Unknown [facility] Radha [id number] NoteHNO ID: [id number] Author: Brittany Sherman MD Service: Urology Author Type: Resident Type: Progress Notes Filed: 05/24/2022 6:56 AM Note Text: [facility] UROLOGY PROGRESS NOTE Name: Taras Hayward Bed: M081 012/M081-12 Date: 05/24/2022 After Hours [facility] Service Pager: [phone] ASSESSMENT AND PLAN Taras Hayward is a [...] Brittany Sherman MD Urology Resident PGY-3 Pager: [phone] For weekend or after hours issues [place] [phone] SUBJECTIVE As above Objective Vital Signs BP 133/79 Pulse 78 Temp 36.2 ?C (97.2 ?F) (Temporal) Resp 18 Ht 190.5 cm (6' 3 ) Wt (!) 160.4 kg (353 lb 9.9 oz) SpO2 97% BMI 44.20 kg/m? Body mass index is 44.2 kg/m?. Input and Output Date 05/23/22 07 - 05/24/22 0659 05/24/22 07 - 05/25/22 0659 Shift 6602-2243 2125-7851 7142-5054 24 Hour Total 4959-0723 5708-8428 9785-3513 24 Hour Total INTAKE PO 2250 2328 812 7363 PO 2250 8063 368 1237 IV 1276 1769 1345 4390 Volume (mL) [...] 0.97 1.02 GLUC 96 144* 143* [facility]ed[facility]-2022 NoteHNO ID: [id number] Author: Harsh Coffey MD Service: Urology Author Type: Physician Type: Progress Notes Filed: 05/23/2022 6:06 PM Note Text: [facility] UROLOGY PROGRESS NOTE Name: Taras Hayward Bed: M081 012/M081-12 Date: 05/23/2022 After Hours [facility] Urology Service Pager: [phone] ASSESSMENT AND PLAN Taras Hayward is a [...] tizanidine Jie Hurt MD Resident [facility] Personal Pager: [phone] For calls on nights and weekends, please page the Urology On-Call pager [phone] 7:48 AM, 05/23/2022 SUBJECTIVE - Feels well [...] site and no other issues. If urine relations mgr tomorrow, then kramer out for voiding trial [...] MD Director, Surgical Stone Disease [facility] [place] Pager [phone] 05/23/2022[facility]12-12-2022 NoteHNO ID: [id number] Author: Jie Hurt MD Service: Urology Author Type: Resident Type: Progress Notes Filed: 05/22/2022 11:09 PM Note Text: [facility] UROLOGY PROGRESS NOTE Name: Taras Hayward Bed: M081 012/M081-12 Date: 05/22/2022 After Hours [facility] Service Pager: [phone] ASSESSMENT AND PLAN Taras Hayward is a [...] tizanidine Jie Hurt MD Resident [facility] Pager: [phone] For calls on nights and weekends, please page the Urology On-Call pager [phone] 9:34 PM, 05/22/2022 SUBJECTIVE - Feels well [...] hours) at 05/22/20222132 Last data filed at 05/22/20221 Gross per 24 hour Intake 3633.7 ml [...] PA and lateral recommended when possible. No pneuomothoraxOhiohealth Berger Hospital12-12-2022 NoteHNO ID: [id number] Author: Francisca Mercado APRN.[employer]ER[employer]AUT[employer]ODUCTS SALES ENGINEER Service: ? Author Type: Nurse Wire Worker Type: Anesthesia Procedure Notes Filed: 05/22/2022 2:47 PM Note Text: ANESTHESIOLOGY PROCEDURE NOTE PIV General Information Procedure Start Time/Medication Administration: 05/22/2022 1:50 PM Patient Location: OR Staffing A[employer]AUT[employer] PRODU[employer] SALES ENGINEER: Francisca Mercado APRN.AERONAUTICAL PRODUCTS SALES ENGINEER Performed by: WENCESLAO Preparation Sterility Preparation: hand [...] May 22, 2022 TIME: 2:46 PM CSN: [id number] Berger Hospital12-12-2022 NoteHNO ID: [id number] Author: Francisca Mercado APRN.CRNA Service: ? Author Type: Nurse Wire Worker Type: Anesthesia Procedure Notes Filed: 05/22/2022 3:05 PM Note Text: ANESTHESIOLOGY PROCEDURE NOTE Airway General Information Procedure Start Time/Medication Administration: 05/22/2022 1:40 PM Patient location during procedure: OR Timeout Performed Pre-procedure: timeout performed Consent Obtained: Yes Patient identity confirmed: arm band and patient Staffing [employer]ODU[employer] SALES ENGINEER: Francisca Mercado APRN.AER[employer]AUTICAL PRODUCTS SALES ENGINEER Performed by: WENCESLAO Indications and Patient Condition Indications for airway management: anesthesia Preoxygenated: yes anesthesia circuit Patient position: sniffing and ramp Method: asleep Cricoid Pressure: Yes Manual In-Line Stabilization: No Difficult Mask: No Airway Accessory: oral airway Final Airway Details Final airway type: endotracheal airway Final Endotracheal Airway: ETT Cuffed: yes Successful intubation technique: video laryngoscopy Devices used: Rodriguez Endotracheal tube insertion site: oral Blade: Casey [...] ventilate after succinylcholine given. SIGNATURE: Francisca Mercado APRN.AER[employer]ODUCTS SALES ENGINEER PATIENT NAME: Taras Hayward DATE: May 22, 2022 TIME: 2:44 PM CSN: [id number] Berger Hospital12-08-2022 Instructions* Patient Instructions* Cynthia Blackwood APRN.INCLUSION SPECIAL EDUCATION TEACHER - 05/18/2022 1:46 PM EST PATIENT PREOPERATIVE INSTRUCTIONS No ref. provider found has scheduled you for your procedure at this surgery center: [facility] Scheduling Office: [phone] --[address] [place] [address]. Please read below carefully for your personalized [...] Procedures: - YOU MUST HAVE A RESPONSIBLE SNOWMAKER TAKE YOU HOME. A BOOKBINDER APPRENTICE OR ELECTRONIC HEALTH RECORDS SPECIALIST CANNOT BE MADE A RESPONSIBLE SNOWMAKER. - We recommend that a responsible person [...] call the Sunday before. Your surgeon s collar stitcher will tell you what time to call the office. - If you have not reached the departmental collar stitcher by 5 P.M., call [phone] after 5 P.M. the day before your surgery. Please be aware that emergency situations arise, which may delay or change your surgical time. If this happens, we will notify you as soon as possible and regret any inconvenience. If you already have an Advance Directive, please fax a copy to [phone] or email to for it to be [...] day. Cynthia Blackwood APRN.CNP documented in this [facility]Day[facility]-2022 History and physical note * Cynthia [...] his first stone s/p gastric bypass in 2016. PMH DM2, anxiety, HLN and obesity. He [...] fevers. Neurological: No history of TIA's, stroke, DENTAL OFFICE RECEPTIONIST tumor, impaired sensorium, hemiplegia, paraplegia orquadraplegia. No [...] CAD, chest pain, CHF, DVT/PE, hyperlipidemia, recent MD and murmur/valvular heart disease. GI: No history [...] afterwards, # 2 tab(s), Refills(s) 0, Pharmacy: [facility]/pharmacy #[id number] Start Date: 08/22/19 Status: Ordered [...] or any previous visit (from the past 50038 hour(s)). Assessment Essential hypertension Assessment: Managed with [...] years old or younger STOP-Bang Score: 3 [id number] Score: Age: <65 Sex: male Hypertension history: Yes Diabetes history: Yes [id number] Score: 2 ARISCAT Score: Age: <=50 ARISCAT [...] 1:08 PM PAGER/CONTACT #: documented [place] encounterDavid [place] [id number] Miscellaneous Notes* Telephone Encounter - Della Frederick [...] 10, 2022 11:27 AM documented in this encounterDayton Osteopathic Hospital11-29-2022 NoteHNO ID: [id number] Author: Harsh Coffey MD Service: ? Author [...] based on size, location, hounsfield units and wnae-lv-poqrj distance: 2% 3. Ureteroscopy - risks of [...] MD Director, Surgical Stone Disease [facility], [facility] Pager [phone] 05/09/2022[facility]11-29-2022 NotePatient Outreach (UROJOSEPHN) TARAS HAYWARD ([id number]) 1970 M Date Time Provider Department 05/09/22 HARSH COFFEY During your visit today, we recorded the following information about you: Allergies As of Date: 05/09/2022 (No Known Allergies) Date Reviewed: 05/09/2022 Reviewed by: Aislinn Mendoza MA - Fully Assessed Visit Diagnosis:Screening for genitourinary condition [Z13.89] Order(s):URINALYSIS, REFLEX MICROSCOPIC [[id number]] Order #: [id number]. #:[id number] Prescriptions as of 05/12/2022 - azithromycin (ZITHROMAX) [...] afterwards, # 2 tab(s), Refills(s) 0, Pharmacy: [facility]/pharmacy #[id number] Start Date: 08/22/19 Status: Ordered [...] stent present [Z96.0] 05/09/2022 Encounter Status:Closed by NONA, PRODUSER on 05/12/22[facility] 05-09-2022 History of Present illness Narrative* [...] based on size, location, hounsfield units and qpmb-sx-mpaeh distance: 2% 3. Ureteroscopy - risks of [...] MD Director, Surgical Stone Disease [facility], [facility] Pager [phone] 05/09/2022 documented in this encounterDayton Osteopathic Hospital11-29-2022 Nurse Note* Aislinn Mendoza MA - 05/09/2022 1:02 PM EST LORRAINE Patient was assigned the Dr. Coffey patient instruction module from the [email or web address] platform. Patient was provided instructions on how to access [employer]. The patient was instructed to call the provider s officewith any questions. Patient states understanding and has the provider s office number/contact information via [employer]. Aislinn Mendoza MA documented in this encounterDayton Osteopathic Hospital11-02-2022 Hospital Discharge instructions Patient Education 04/12/2022 13:40:41 Kidney Stones, Jzhz-kz-Xsfz Kidney Stones Kidney stones are rock-like masses [...] Follow these instructions at home: Medicines Take znqr-ybr-dyaqvpq and prescription medicines only as told by [...] 11/13/2008 Document Revised: 10/14/2019 Document Reviewed: 10/14/2019 [employer] Patient Education 2020 [employer]. Follow Up Care 03/31/2022 13:35:57 With:SLADE ALCALA, Konrad Jones, URL Address: [facility] [facility] [address] [place] [address] When: Unknown [facility] 10-19-2022 NoteOPERATIVE NOTE OPERATION DATE: [...] placed per urethra and a well lubricated 22-Slovak cystourethroscope with 30 degree lens then passed [...] I was then able to pass a 4.8-Slovak, 22-30 cm Microvasive double-J stent into the [...] it well. He was transferred to the [facility] and then back to PACU in satisfactory [...] recommending referral to tertiary care center, either [place] or [place], for consideration of percutaneous nephroscopic access for this nearly 3 cm stone. Discussed all this with the patient's family postoperatively and they were in agreement with the plan.[facility] No data available for this section [facility] Evaluation + Plan note Future Appointments Appointment Date:05/26/2022 08:30:00 AM Scheduled Provider: Location:[facility] Appointment Type:Urology CALL PAT FT Appointment Date:05/31/2022 01:00:00 PM Scheduled Provider: Location:[facility] Appointment Type:Urology FT [facility] Evaluation + Plan note Future Appointments Appointment Date:07/19/2022 03:00:00 PM Scheduled Provider:Konrad LILLY MD Location:[facility] Appointment Type:URO [facility] Future Appointments Appointment Date:11/28/2022 03:15:00 PM Scheduled Provider:Konrad LILLY MD [facility] Appoint[facility] Type:URO Office Visit [facility] Evaluation + Plan note Future Appointments Appointment Date:11/28/2022 03:15:00 PM Scheduled Provider:Konrad LILLY MD [facility] Appointment Type:URO Office Visit Diagnostic Tests Pending * Urine Culture 07/19/22 [facility] Future Appointments Appointment Date:05/16/2023 03:00:00 PM Scheduled Provider:Konrad LILLY MD Location[facility] Appointment Type:URO Office Visit [facility] evaluation + Plan note Future Appointments Appointment Date:05/16/2023 03:00:00 PM Scheduled Provider:Konrad LILLY MD Location:[facility] Appointment Type:URO Office Visit Diagnostic Tests Pending * Urine Culture 02/20/23 [facility] Future Appointments Appointment Date:01/08/2024 08:20:00 AM Scheduled Provider:DONNA RIVERA PA-C Location:[facility] Appointment Type:URO Office Visit [facility] evaluation + Plan note Future Appointments Appointment Date:11/14/2024 08:20:00 AM Scheduled Provider:DONNA RIVERA PA-C Location:[facility] Appointment Type:URO Office Visit Diagnostic Tests Pending * Urine Culture 05/15/24 [facility] Evaluation + Plan note Future Appointments Appointment Date:11/14/2024 08:20:00 AM Scheduled Provider:DONNA RIVERA PA-C Location:[facility] Appointment Type:URO Office Visit [facility] evaluation note* Diagnosis Nephrolithiasis- Primary Calculus of kidney [...] examination of urine documented in this encounter [facility] note* Diagnosis Pre-op evaluation- Primary Preoperative examination, unspecified Essential hypertension Unspecified essential hypertension BMI 40.0-44.9, adult (HCC) Body Mass Index 40.0-44.9, adult Prediabetes Other abnormal glucose Ureteral stent present Nephrolithiasis Calculus of kidney Nephrolithiasis Calculus of kidney documented in this encounter [facility] [employer]ustravel.es Other Evaluation noteNo InformationNocedar county memorial hospital [email or web address].es Other evaluation note* Diagnosis Onset Date Resolution Status Cerebellar infarct acuteHydrocephalusacuteHypertensionacuteImpaired mobility and activities of daily livingacuteObesity (BMI 35.0-39.9 without comorbidity)acuteS/P SAFETY DIRECTOR shunt acuteTachycardiaacute [facility] Work Phone: evaluation note* Diagnosis Onset Date Resolution Status Cerebellar infarct acuteDizzinessacuteDVT, popliteal, acuteacuteHydrocephalusacuteHypertensionacute Impaired mobility and activities of daily livingacuteNauseaacuteObesity (BMI 35.0-39.9 without comorbidity)acuteS/P SAFETY DIRECTOR shuntacuteTachycardiaacute [facility] Work Phone: evaluation noteNo assessment information available [facility] Work Phone: evaluation note* Diagnosis Onset Date Resolution Status Cerebellar infarction with occlusion or stenosis of cerebellar artery acuteCOVID-19acuteElevated cholesterolacute [facility] Work Phone: evaluation note* Diagnosis Onset Date Resolution Status Cerebellar infarction with occlusion or stenosis of cerebellar artery acuteCOVID-19acuteElevated cholesterolacuteCerebral atherosclerosisacuteElevated cholesterolacuteEssential hypertensionacuteIFG (impaired fasting glucose)acute [facility] Work Phone: evaluation note* Diagnosis Onset Date Resolution Status Cerebral atherosclerosis acuteElevated cholesterolacuteEssential hypertensionacuteIFG (impaired fasting glucose)acuteObesityacute [facility] Work Phone: evaluation note* Diagnosis Sequelae, post-stroke- Primary documented in this encounter [facility]* Diagnosis Pseudomeningocele- Primary Disorders of meninges, not elsewhere classified S/P SAFETY DIRECTOR shunt Presence of cerebrospinal fluid drainage device CSF leak Other specified disorder of nervous system documented [facility]* Diagnosis Sequelae, post-stroke- Primary Essential hypertension Unspecified essential hypertension documented [facility] this encounter [facility]* Diagnosis Pseudomeningocele- Primary Disorders of meninges, not elsewhere classified S/P SAFETY DIRECTOR shunt Presence of cerebrospinal fluid drainage device documented in this encounter [facility]* Diagnosis Onset Date Resolution Status Admit Date Cerebral atherosclerosis acuteJune 2024 8:54amElevated cholesterolacuteJune 2024 8:54am Essential hypertensionacuteJune 2024 8:54amIFG (impaired fasting glucose) acuteC[facility] 2024 8:54amScreening for colon canceracuteCape Fear Valley [facility] Hospitale 2024 8:54am Screening PSA (prostate specific antigen)acuteC[facility]2024 8:54amSinus tachycardiaacuteCape [facility] Hospitale 2024 8:54amWellness examinationacuteCape [facility]2024 8:54am [facility] Work Phone: History general Narrative - Reported* Type Description Date Medical History Candidal balanitis Medical HistoryRight ureteral calculusMedical HistoryIFG (impaired fasting glucose)Medical HistoryEssential hypertensionMedical HistoryHip pain, left Medical HistoryBacterial sinusitisMedical HistoryLumbosacral spondylosis with radiculopathyMedical HistoryBenign prostatic hyperplasia with lower urinary tract symptoms, symptom details unspecifiedMedical HistoryCOVIDMedical History Epicondylitis, lateral, rightMedical HistoryAcute prostatitis without hematuria Medical HistoryTachycardiaMedical HistoryVaricose veins of bilateral lower extremities with painMedical HistorySuperficial phlebitis and thrombophlebitis of right lower extremityMedical HistoryHistory of nephrolithiasisMedical History Bariatric surgery statusMedical HistoryLeft nephrolithiasisMedical History Spondylosis of cervical spine with radiculopathyMedical HistoryTobacco use Medical HistoryProstatitis, acuteMedical HistoryLLQ painMedical HistoryCough Medical HistoryAcute bronchitis, unspecified organismSurgical Historycystoscopy and ureteroscopy with stent placement right03/30/2022urgical Historycystoscopy with bledrmgxudi19/2020Surgical Historycystoscopy with insertion of stent left 07/2019Surgical Historyright inguinal zrvmcf3708/03/2015Surgical Historysinus tnvsyrs40/2011Surgical JxpsrgiCCR28/2010Surgical Historygastric /2016 Hospitalization HistorySEE SURGICAL HX [facility] [employer] Other History general Narrative - ReportedNortWellSpan [facility] [employer] Other History general Narrative - Reported* Type Description Date Medical History Candidal balanitis Medical HistoryRight ureteral calculusMedical HistoryIFG (impaired fasting glucose)Medical HistoryEssential hypertensionMedical HistoryHip pain, left Medical HistoryBacterial sinusitisMedical HistoryLumbosacral spondylosis with radiculopathyMedical HistoryBenign prostatic hyperplasia with lower urinary tract symptoms, symptom details unspecifiedMedical HistoryCOVIDMedical History Epicondylitis, lateral, rightMedical HistoryAcute prostatitis without hematuria Medical HistoryTachycardiaMedical HistoryVaricose veins of bilateral lower extremities with painMedical HistorySuperficial phlebitis and thrombophlebitis of right lower extremityMedical HistoryHistory of nephrolithiasisMedical History Bariatric surgery statusMedical HistoryLeft nephrolithiasisMedical History Spondylosis of cervical spine with radiculopathyMedical HistoryTobacco use Medical HistoryProstatitis, acuteMedical HistoryLLQ painMedical HistoryCough Medical HistoryAcute bronchitis, unspecified organismMedical HistoryCerebellar InfarctMedical HistoryLeft vertebral artery dissectionSurgical Historycystoscopy and ureteroscopy with stent placement right2Surgical Historycystoscopy with gnwlzzdxymi10/2020Surgical Historycystoscopy with insertion of stent left 07/2019Surgical Historyright inguinal cvamoz7708/03/2015Surgical Historysinus pvvayqz92/2011Surgical KgihnduVAX34/2011Surgical Historygastric drugyx62/2016 Hospitalization HistorySEE SURGICAL [facility] [email or web address] Other History general Narrative - Reported* Type Description Date Medical History Candidal balanitis Medical HistoryRight ureteral calculusMedical HistoryIFG (impaired fasting glucose)Medical HistoryEssential hypertensionMedical HistoryHip pain, left Medical HistoryBacterial sinusitisMedical HistoryLumbosacral spondylosis with radiculopathyMedical HistoryBenign prostatic hyperplasia with lower urinary tract symptoms, symptom details unspecifiedMedical HistoryCOVIDMedical History Epicondylitis, lateral, rightMedical HistoryAcute prostatitis without hematuria Medical HistoryTachycardiaMedical HistoryVaricose veins of bilateral lower extremities with painMedical HistorySuperficial phlebitis and thrombophlebitis of right lower extremityMedical HistoryHistory of nephrolithiasisMedical History Bariatric surgery statusMedical HistoryLeft nephrolithiasisMedical History Spondylosis of cervical spine with radiculopathyMedical HistoryTobacco use Medical HistoryProstatitis, acuteMedical HistoryLLQ painMedical HistoryCough Medical HistoryAcute bronchitis, unspecified organismMedical HistoryCerebellar InfarctMedical HistoryLeft vertebral artery dissectionSurgical Historycystoscopy and ureteroscopy with stent placement right03/30/2022urgical Historycystoscopy with enoclbaofwu45/2020Surgical Historycystoscopy with insertion of stent left 07/2019Surgical Historyright inguinal mgusuj9608/03/2015Surgical Historysinus qdiozoa48/2011Surgical HkoabzfQRU65/2011Surgical Historygastric vwlote10/2016 Surgical HistoryC1 Laminectomy12/2022Surgical HistorySuboccipital craniectomy 12/2022Surgical HistoryFrontal ventricular drain12/2022Hospitalization HistorySEE SURGICAL HX [facility] Other History general Narrative - Reported* Type Description Date Medical History Candidal balanitis Medical HistoryRight ureteral calculusMedical HistoryIFG (impaired fasting glucose)Medical HistoryEssential hypertensionMedical HistoryHip pain, left Medical HistoryBacterial sinusitisMedical HistoryLumbosacral spondylosis with radiculopathyMedical HistoryBenign prostatic hyperplasia with lower urinary tract symptoms, symptom details unspecifiedMedical HistoryCOVIDMedical History Epicondylitis, lateral, rightMedical HistoryAcute prostatitis without hematuria Medical HistoryTachycardiaMedical HistoryVaricose veins of bilateral lower extremities with painMedical HistorySuperficial phlebitis and thrombophlebitis of right lower extremityMedical HistoryHistory of nephrolithiasisMedical History Bariatric surgery statusMedical HistoryLeft nephrolithiasisMedical History Spondylosis of cervical spine with radiculopathyMedical HistoryTobacco use Medical HistoryProstatitis, acuteMedical HistoryLLQ painMedical HistoryCough Medical HistoryAcute bronchitis, unspecified organismMedical HistoryCerebellar InfarctMedical HistoryLeft vertebral artery dissectionSurgical Historycystoscopy and ureteroscopy with stent placement right03/30/2022urgical Historycystoscopy with otznnezfdbs22/2020Surgical Historycystoscopy with insertion of stent left 07/2019Surgical Historyright inguinal awholz1108/03/2015Surgical Historysinus hfkfzzo07/2011Surgical BncdjeyJUP12/2011Surgical Historygastric /2016 Surgical HistoryC1 Laminectomy12/2022Surgical HistorySuboccipital craniectomy 12/2022Surgical HistoryFrontal ventricular drain12/2022Surgical HistoryVP shunt placement12/2022Hospitalization HistorySEE SURGICAL HX [employer] [employer] Other Hospital Discharge instructions No data available for this section [facility] Additional Instructions Have sutures removed in 7 days. Apply bacitracin twice per day. Return for any redness, fever, vomiting, Headache, vision changes.[facility] Work Phone: InstructionsNot on filedocumented in this encounter [facility] SystemInstructionsNot on filedocumented in this encounter [facility] SystemInstructionsNot on filedocumented in this encounter [facility] SystemInstructionsNot on filedocumented in this encounter [facility] SystemProgress note No data available for this section [facility] Reason for referral (narrative)* Outpatient Procedure (Routine) - ClosedSpecialtyDiagnoses / ProceduresReferred By ContactReferred To ContactPROMEDICA [facility] Diagnoses Pre-op evaluation Procedures ECG COMPLETE ECG ROUTINE ECG W/LEAST 12 LDS W/I&R Cynthia Blackwood APRN.INCLUSION SPECIAL EDUCATION TEACHER [address] [place] [address] [facility] [address] [place] [address] Referral IDStatusReasonStart DateExpiration DateVisits RequestedVisits [id number] Auto-Generated Referral [facility] for referral (narrative)No reason for referral information availableOhiohealth Doctors [facility] Work Phone: Reason for Referral SpecialtyDiagnoses / ProceduresReferred By ContactReferred To ContactRadiology Diagnoses S/P SAFETY DIRECTOR shunt Procedures CT brain with and without contrast Darrell Marin PA [address] [address] Referral IDStatusReasonStart DateExpiration DateVisits RequestedVisits [id number] / ProceduresReferred By ContactReferred To Contact Diagnoses Nephrolithiasis Family history of nephrolithiasis BMI 40.0-44.9, adult (HCC) History of gastric bypass Essential hypertension Prediabetes Bladder spasms Ureteral stent present Procedures REFER TO PACC - PRE ANESTHESIA CONSULTATION CLINIC OFFICE/OUTPATIENT [facility] MDM 60-74 MINUTES Harsh Coffey MD [address] [place] [address] Referral IDStatusReasonStart DateExpiration DateVisits RequestedVisits [id number] PCP Requested Referral / Summary Purpose Family History Relationship Condition Age at Onset Recorded Date/T jesús Not Specified Heart disease Unknown Malignant neoplasmUnknown Relationship Condition Age at Onset Recorded Date/T jesús mother Heart disease Unknown Malignant neoplasmUnknown Advance Directives Advance Directive Response Recorded Date/ Time Advance Directives No January 03 10:07am Advance Directive Response Recorded Date/ Time Advance Directives No January 03 9:07am TypeDate RecordedPatient RepresentativeExplanationDurable Power of Senior Financial Consultant 01/05/2023 3:03 PMCode StatusDate ActivatedDate InactivatedCommentsFull Code 12/13/2022 11:27 AM01/03/2023 3:22 PMDate ActivatedDate InactivatedComments12/13/2022 11:27 AM01/03/2023 3:22 PMTypeDate RecordedPatient RepresentativeExplanation Durable Power of Attorney01/05/2023 3:03 PMCode StatusDate ActivatedDate InactivatedCommentsFull Code12/13/2022 11:27 AM01/03/2023 3:22 PM Chief Complaint and Reason for Visit Chief Complaint left cerebellar CVA s/p Suboccipital craniectomy/c fallReason for VisitCerebellar infarct Hydrocephalus Hypertension Impaired mobility and activities of daily living Obesity (BMI 35.0-39.9 without comorbidity) S/P SAFETY DIRECTOR shunt Tachycardia Chief Complaint left cerebellar CVA s/p Suboccipital craniectomy/c fallReason for VisitCerebellar infarct Dizziness DVT, popliteal, acute Hydrocephalus Hypertension Impaired mobility and activities of daily living Nausea Obesity (BMI 35.0-39.9 without comorbidity) S/P SAFETY DIRECTOR shunt Tachycardia Chief Complaint Post stroke Chief Complaint Post stroke Wellness Amb Documentation [phone] COVID + SundayReason for VisitCerebellar infarction with occlusion or stenosis of cerebellar artery COVID-19 Elevated cholesterol Chief Complaint Amb Documentation [phone] COVID + Sunday 3 month follow upReason for VisitCerebellar infarction with occlusion or stenosis of cerebellar artery COVID-19 Elevated cholesterol Cerebral atherosclerosis Elevated cholesterol Essential hypertension IFG (impaired fasting glucose) Chief Complaint check up Reason for Visit Cerebral atheroscler osis Elevated cholesterol Essential hypertension IFG (impaired fasting glucose) Obesity Chief Complaint Admit Date CC Adult Risk Stratification May 9:06am 3 month f/u May 15, 2024 8 :57am Sinus infection June 20, 2024 1 0:08am Reason for Visit Admit Date Cerebral atherosclerosis May 15, 2 024 8:57am Elevated cholesterol May 15, 2024 8:57am Essential hypertension May 15 8:57am IFG (impaired fasting glucose) May 15, 2024 8:57am Obesity May 15, 2024 8 :57am Sinus tachycardia May 15, 2024 8 :57am Essential hypertension June 20 10:08am IFG (impaired fasting glucose) June 112024 10:08am Acute sinusitis June 20, 2024 1 0:08am Chief Complaint Admit Date 6 month f/u November 17, 2024 8:54a m Reason for Visit Admit Date Cerebral atherosclerosis November 17, 2024 8:54am Elevated cholesterol November 17, 2024 8:54 am Essential hypertension November 17, 2024 8: 54am IFG (impaired fasting glucose) November 17, 2024 8:54am Screening for colon cancer November 17 8:54am Screening PSA (prostate specific antigen ) November 17, 2024 8:54am Sinus tachycardia November 17, 2024 8:54a m Wellness examination November 17, 2024 8:54 am Chief Complaint Admit Date 6 month f/u November 17, 2024 8:54a m B12 shot December 11, 2024 3:36p m Reason for Visit Admit Date Cerebral atherosclerosis November 17, 2024 8:54am Elevated cholesterol November 17, 2024 8:54 am Essential hypertension November 17, 2024 8: 54am IFG (impaired fasting glucose) November 17, 2024 8:54am Obesity November 17, 2024 8:54a m Screening for colon cancer November 17 8:54am Screening PSA (prostate specific antigen ) November 17, 2024 8:54am Sinus tachycardia November 17, 2024 8:54a m Wellness examination November 17, 2024 8:54 am Chief Complaint Admit Date 6 month f/u November 17, 2024 8:54a m B12 shot December 11, 2024 3:36p m b12 shot December 22, 2024 4:06 pm Reason for Visit Admit Date Cerebral atherosclerosis November 17, 2024 8:54am Elevated cholesterol November 17, 2024 8:54 am Essential hypertension November 17, 2024 8: 54am IFG (impaired fasting glucose) November 17, 2024 8:54am Obesity November 17, 2024 8:54a m Screening for colon cancer November 17 8:54am Screening PSA (prostate specific antigen ) November 17, 2024 8:54am Sinus tachycardia November 17, 2024 8:54a m Wellness examination November 17, 2024 8:54 am Anemia December 11, 2024 3:36p m Vitamin B12 deficiency December 11, 2024 3: 36pm Chief Complaint Admit Date 6 month f/u November 17, 2024 8:54a m B12 shot December 11, 2024 3:36p m b12 shot December 22, 2024 4:06 pm B12 shot December 31, 2024 4:06 pm Reason for Visit Admit Date Cerebral atherosclerosis November 17, 2024 8:54am Elevated cholesterol November 17, 2024 8:54 am Essential hypertension November 17, 2024 8: 54am IFG (impaired fasting glucose) November 17, 2024 8:54am Obesity November 17, 2024 8:54a m Screening for colon cancer November 17 8:54am Screening PSA (prostate specific antigen ) November 17, 2024 8:54am Sinus tachycardia November 17, 2024 8:54a m Wellness examination November 17, 2024 8:54 am Anemia December 11, 2024 3:36p m Vitamin B12 deficiency December 11, 2024 3: 36pm Pernicious anemia December 22, 2024 4:06 pm Chief Complaint Admit Date 6 month f/u November 17, 2024 8:54a m B12 shot December 11, 2024 3:36p m b12 shot December 22, 2024 4:06 pm B12 shot December 31, 2024 4:06 pm B12 Shot January 07, 2025 4:12 pm Chief Complaint Admit Date B12 shot December 11, 2024 3:36p m b12 shot December 22, 2024 4:06 pm B12 shot December 31, 2024 4:06 pm B12 Shot January 07, 2025 4:12 pm B12 February 16, 2025 4:06pm Reason for Visit Admit Date Anemia December 11, 2024 3:36p m Vitamin B12 deficiency December 11, 2024 3: 36pm Pernicious anemia December 22, 2024 4:06 pm Chief Complaint Admit Date b12 shot December 22, 2024 4:06 pm B12 shot December 31, 2024 4:06 pm B12 Shot January 07, 2025 4:12 pm B12 February 16, 2025 4:06pm B12 Shot March 19, 2025 4: 09pm Reason for Visit Admit Date Pernicious anemia December 22, 2024 4:06 pm Additional Source Comments Patient Care team informatio n (unrecognized section and content) Team Status: Active Member Role Status Dates Awais Garcia DO Primary Care Provider Active Team Status: Inactive Member Role Status Dates Awais Garcia DO Primary Care Provider Active Start: December 22, 2024 End: December 22, 2024Donna Davila APRN SUPPLY CHAIN ENGINEER-CAttending ProviderActive Start: December 22, 2024 End: December 22, 2024 Team Status: Inactive Member Role Status Dates Awais Garcia DO Primary Care Provider Active Start: December 31, 2024 End: December 31bharathi Garcia , DOAttending ProviderActiveStart: December 31, 2024 End: December 31, 2024 Team Status: Inactive Member Role Status Dates Awais Garcia DO Primary Care Provider Active Start: January 07, 2025 End: January 07ensalinas Garcia , DOAttending ProviderActiveStart: January 07, 2025 End: January 07, 2025 Team Status: Inactive Member Role Status Dates Awais Garcia DO Primary Care Provider Active Start: February 16, 2025 End: February 16ensalinas Garcia , DOAttending ProviderActiveStart: February 16, 2025 End: February 16, 2025 Team Status: Inactive Member Role Status Dates Awais Garcia DO Primary Care Provider Active Start: March 19, 2025 End: March 19, 2025Tova Zayas MDAttending ProviderActiveStart: March 19, 2025 End: March 19, 2025 Team Status: Active Member Role Status Dates Awais Garcia DO Primary Care Provider Active Team Status: Active Member Role Status Dates Awais Garcia DO Primary Care Provider Active Start: November 24, 2024 Awais Garcia DOAttending ProviderActiveStart: November 24, 2024 Team Status: Active Member Role Status Dates Awais Garcia DO Primary Care Provider Active Start: December 01, 2024 Awais Garcia DOAttending ProviderActiveStart: December 01, 2024 Team Status: Inactive Member Role Status Dates Awais Garcia DO Primary Care Provider Active Start: December 11, 2024 End: December 11, 2024Tova Zayas MDAttending ProviderActiveStart: December 11, 2024 End: December 11, 2024 Team Status: Inactive Member Role Status Dates Awais Garcia DO Primary Care Provider Active Start: December 22, 2024 End: December 22, 2024Donna Davila APRN SUPPLY CHAIN ENGINEER-CAttending ProviderActive Start: December 22, 2024 End: December 22, 2024 Team Status: Inactive Member Role Status Dates Awais Garcia DO Primary Care Provider Active Start: December 31, 2024 End: December 31ensalinas Garcia , DOAttending ProviderActiveStart: December 31, 2024 End: December 31, 2024 Team Status: Inactive Member Role Status Dates Awais Garcia DO Primary Care Provider Active Start: January 07, 2025 End: January 07bharathi Garcia , Attending ProviderActiveStart: January 07, 2025 End: January 07, 2025 Team Status: Inactive Member Role Status Dates Awais Garcia DO Primary Care Provider Active Start: February 16, 2025 End: February 16Joceline Santosending ProviderActiveStart: February 16, 2025 End: February 16, 2025 Team Status: Inactive Member Role Status Dates Awais Garcia DO Primary Care Provide r, Attending Provider Active Start: November 17, 2024 End: November 17, 2024 Team Status: Active Member Role Status Dates Awais Garcia DO Primary Care Provide r, Attending Provider Active Start: May 13, 2024 Team Status: Inactive Member Role Status Dates Awais Garcia DO Primary Care Provide r, Attending Provider Active Start: May 15, 2024 End: May 15, 2024 Team Status: Inactive Member Role Status Huan Garcia DO Primary Care Provide r, Attending Provider Active Start: June 20, 2024 End: June 20, 2024 Team Status: Inactive Member Role Status Huan Garcia DO Primary Care Provide r, Attending Provider Active Start: February 12, 2024 End: February 12, 2024 Team Status: Active Member Role Status Dates Awais Garcia DO Primary Care Provider Active Start: August 21, 2023 Torsten Nicole ProviderActiveStart: August 21, 2023 Team Status: Inactive Member Role Status Huan Garcia DO Primary Care Provide r, Attending Provider Active Start: August 27, 2023 End: August 27, 2023 Team Status: Active Member Role Status Dates Awais Garcia DO Primary Care Provider Active Start: October 19, 2023 Konrad Lilly MDAttbeka ProviderActiveStart: October 19, 2023 Team Status: Inactive Member Role Status Dates Awais Garcia DO Primary Care Provide r, Attending Provider Active Start: October 31, 2023 End: October 31, 2023 Team Status: Inactive Member Role Status Dates PHYSICIAN NO FAMILY Primary Care Provider Active Rory Montero Provider, Attending ProviderActiveKatherine Sciarappa Other ProviderActiveNicole Regino , DOOther ProviderActiveStzoë Ly MD Other ProviderActiveChristopher Rika Oates , DOOther ProviderActiveFelicDAVE Kidd-BCOther ProviderActiveAdam Rika Nieto , DOOther ProviderActive Suha Terry , APRNOther ProviderActiveBrandy S Gama , SUPPLY CHAIN ENGINEER-COther Provider ActiveSaemma Wei , CCPC-LPW-CDpbwa ProviderActiveVianey Avilez , LPNOther ProviderActiveGerardo Miranda MDOther ProviderActiveJayee Pizano , SUPPLY CHAIN ENGINEER-C Other ProviderActiveMohamed Maddie Argueta MDOther ProviderActiveTony Fuentes MDOther ProviderActiveKenkenny Rutledge , CSTFAOther ProviderActiveThom Zayas MDOther ProviderActiveJeneri Mckeon , SUPPLY CHAIN ENGINEER-COther ProviderActiveLen Lopez MDOther ProviderActiveBhavya Ferrer MDOther ProviderActive Team Status: Inactive Member Role Status Dates Ashely Torres MD Emergency Provider Active Jeff Topete ProviderActiveTeam MemberRelationshipSpecialty Start DateEnd Date Awais Garcia, DO [address] [place] [address] PCP - GeneralInternal Yffxshvh80/2/22Team MemberRelationshipSpecialtyStart Date End Date Awais Garcia, DO [address] [place] [address] [facility]nal Ztqaxuwu28/2/22 Team Status: Active Member Role Status Dates PHYSICIAN NO FAMILY Primary Care Provider Active Rory Montero Provider, Attending ProviderActive Team Status: Inactive Member Role Status Dates Awais Garcia DO Primary Care Provider Active Kendal Barrios NP-Sandra ProviderActive Team Status: Inactive Member Role Status Dates Awais Garcia DO Primary Care Provider Active Start: June 15, 2023 End: June 15, 2023Saemma Barrios NP-CAttenrosa ProviderActiveStart: June 15, 2023 End: June 15, 2023 Team Status: Inactive Member Role Status Dates Awais Garcia DO Attending Provider Active Sta rt: July 02, 2023 End: July 02, 2023Team MemberRelationshipSpecialtyStart DateEnd Date Awais Garcia DO [address] [place] [address] PCP - GeneralInternal Medicine12/13/22Team MemberRelationshipSpecialtyStart Date End Date Awais Garcia, DO [address] [place] [address] PCP - GeneralInternal Medicine12/13/22Team MemberRelationshipSpecialtyStart Date End Date Awais Garcia DO [address] [place] [address] PCP - GeneralInternal Medicine12/13/22Te MemberRelationshipSpecialtyStart Date End Date Awais Garcia DO [address] [place] [address] PCP - GeneralInternal Medicine12/13/22Te MemberRelationshipSpecialtyStart Date End Date Awais Garcia DO [address] [place] [address] PCP - GeneralAri[facility] Hospitalnal Medicine12/13/22Te MemberRelationshipSpecialtyStart Date End Date Awais Garcia DO [address] [place] [address] PCP - GeneralInternal Medicine12/13/22 Team Status: Inactive Member Role Status Dates Awais Garcia DO Primary Care Provider Active Start: November 17, 2024 End: November 17bharathi Garcia DOAttbeka ProviderActiveStart: November 17, 2024 End: November 17, 2024 Team Status: Inactive Member Role Status Dates Awais Garcia DO Primary Care Provider Active Start: March 19, 2025 End: March 19, 2025Nicci Banda ProviderActiveStart: March 19, 2025 End: March 19, 2025 Source Comments (unrecognize d section and content) In the event this informatio n is protected by the Federal Confidentiality of Alcohol and Drug Abuse Patient Records regulations: The Federal rules restrict any use of the information to criminally investigate or prosecute any alcohol or drug abuse patient.[facility] HospitalIn the event this information is protected by the Federal Confidentiality of Alcohol and Drug Abuse Patient Records regulations: The Federal rules restrict any use of the information to criminally investigate or prosecute any alcohol or drug abuse patient.[facility] HospitalIn the event this information is protected by the Federal Confidentiality of Alcohol and Drug Abuse Patient Records regulations: The Federal rules restrict any use of the information to criminally investigate or prosecute any alcohol or drug abuse patient.[facility] HospitalIn the event this information is protected by the Federal Confidentiality of Alcohol and Drug Abuse Patient Records regulations: The Federal rules restrict any use of the information to criminally investigate or prosecute any alcohol or drug abuse patient.[facility] Reason for Visit (unrecogniz ed section and content) ReasonCommentsConsultReasonCommentsAppointmentReasonCommentsPre-Op VisitReason 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, Review CT Brain ResultsReasonComments Follow-up3 mth vp production shunt (unrecognized sect ion and content) No Status Records FoundNo Status Records FoundNo Status Records FoundNo Status Records FoundNo Status Records FoundNo Status Records FoundNo Status Records FoundNo Status Records Found INFORMATION SOURCE (unrecogn ized section and content) DATE CREATED AUTHOR 06/11/2022 [facility] DATE CREATED AUTHOR AUTHOR'S ORGANIZ ATION 08/12/2022 [facility] DATE CREATED AUTHOR AUTHOR'S ORGANIZ ATION 06/20/2023 [facility] DATE CREATED AUTHOR AUTHOR'S ORGANIZ ATION 11/30/2023 [facility] DATE CREATED AUTHOR AUTHOR'S ORGANIZ ATION 12/12/2023 [facility] DATE CREATED AUTHOR AUTHOR'S ORGANIZ ATION 05/21/2024 [facility] DATE CREATED AUTHOR AUTHOR'S ORGANIZ ATION 05/22/2024 [facility] DATE CREATED AUTHOR AUTHOR'S ORGANIZ ATION 11/08/2024 [facility] Goals (unrecognized section and content) Goals may [...] BE BASED ON THE PRIMARY CLINICAL RECORDS. [employer] [facility]. provides no warranty or guarantee of the accuracy or completeness of information in this document.
--- OUTSIDE RECORDS SUMMARY | 2025-05-09 10:15 | XMS_ITS | Clinical Summary ---
Author Organization [employer] tem Address [facility] [id number] [place] [address] Care Team Providers Care Yarn Dyer Name Role Phone Awais Pablo DO Primary Care Provider [phone] Allergies No known active allergies Medications * This document contains information received from the source organization and may not represent a complete record from that organization. MedicationSigDispense QuantityRefillsLast FilledStart DateEnd DateStatus carvediloL (COREG) 6.25 mg tablet Take 1 tablet (6.25 mg total) by mouth in the morning and 1 tablet (6.25 mg total) before bedtime.01/03/2023ctive acetaminophen (TYLENOL) 325 mg tablet Take 2 tablets (650 mg total) by mouth every 6 (six) hours as needed for pain or headaches. 30 tablet 01/03/2023ctive amitriptyline (ELAVIL) 10 mg tablet Take 1 tablet (10 mg total) by mouth nightly.01/03/2023ctive aspirin 81 mg Take 1 tablet (81 mg total) by mouth in the morning.01/04/2023ctive atorvastatin (LIPITOR) 10 mg tablet Take 1 tablet (10 mg total) by mouth nightly.01/03/2023ctive melatonin (CIRCADIN) tablet Take 1 tablet (3 mg total) by mouth nightly.ctive ondansetron ODT (ZOFRAN ODT) 4 mg disintegrating tablet Dissolve 2 tablets (8 mg total) on tongue every 12 (twelve) hours as needed for nausea.01/23/2023ctive venlafaxine XR (EFFEXOR XR) 37.5 mg 24 hr capsule Take 1 capsule (37.5 mg total) by mouth in the morning.Active polyethylene glycol (MIRALAX) 17 gram/dose powder Take by mouth.02/20/2023ctive Active Problems ProblemNoted DateDiagnosed DateSequelae, post-nwgvpw8412/11/20232754Kwnwpe11/14/2023 CSF leak02/07/2023Vertebral artery /05/2023Essential hypertension 05/09/2022 Overview (02/22/2023): Last Assessment & Plan: Assessment: Managed with carvedilol (COREG) BP this visit 148/92 Denies SOB, dizziness, lightheadedness, palpitations, syncope or chest pain Immunizations ImmunizationAdministration DatesNext DueInfluenza, Live, Csrvuvyaos62/01/2019 Influenza, Lfybapyeawq46/26/2022 Family History Medical HistoryRelationNameCommentsDiabetesBrotherHeart diseaseBrotherCancer MotherHeart diseaseMotherRelationNameStatusCommentsBrotherMother Social History Tobacco UseTypesPacks/DayYears UsedDateSmoking Tobacco: NeverSmokeless Tobacco: Never Tobacco Cessation:Counseling Given: Not Answered Alcohol UseStandard Drinks/WeekCommentsNot Currently0 (1 standard drink = 0.6 oz pure alcohol)AUDIT-CAnswerDate RecordedQ1: How often do you have a drink containing alcohol?2-4 times a month12/13/2022Q2: How many drinks containing alcohol do you have on a typical day when you are drinking?1 or Q3: How often do you have six or more drinks on one occasion?Never12/13/2022HQ-2 AnswerDate RecordedTotal Zwidf65107/31/2022Housing InstabilityAnswerDate Recorded Are you worried or concerned that in the next two months you may not have stable housing that you own, rent or stay in as a part of a household?No02/09/2023 ChildcareAnswerDate AycepifhZmuznvxggFpicdpf38/12/2019EmploymentAnswerDate IhduftrvArstauigqsFghqnfq68/12/2019Hunger ScreeningAnswerDate RecordedWithin the past 12 months we worried whether our food would run out before we got money to buy more.Never True12/05/2023Within the past 12 months the food we bought just didn't last and we didn't have money to get more.Never True12/05/2023Sex and Gender InformationValueDate RecordedSex Assigned at BirthNot on fileLegal Sex Male02/11/2015 4:35 PM EDTGender IdentityNot on fileSexual OrientationNot on file Last Filed Vital Signs Vital SignReadingTime TakenCommentsBlood Mqatqcgf456/8303 12:46 PM EDT Iesuh428409/05/2023 12:46 PM QYBPsbqhmssejt17.6 ??C (97.9 ??F)02/09/2023 3:23 PM EDTRespiratory Clkb0609 3:23 PM EDTOxygen Yructndbwm15%02/09/2023 3:23 PM EDTInhaled Oxygen Concentration--Fkjgfr155.6 kg (310 lb)12/05/2023 12:55 PM RODEtzaal086.5 cm (6' 3 )12/05/2023 12:55 PM EDTBody Mass Index38.75012/05/2023 12:55 PM EDT Plan of Treatment Health MaintenanceDue DateLast DoneCommentsDTaP,Tdap and Td Vaccines (1 - Tdap) Zoster (Shingles) Vaccine (1 of 2)3Depression Wvsllkzya00/3Adult BMI Xqwtjupxy08/26//Tobacco Smgusacbr41/26//4COVID-19 Vaccine ( season)2025 04/11/2022, 04/06/2021, 07/07/2020, Additional history existsInfluenza Vaccine /, 03/11/2019 Goals GoalPatient Goal TypeAssociated ProblemsRecent ProgressPatient-Stated?Author Patient will have a safe DC Mica Crystal RN Note: Evaluation of progress towards goal: Pt will have a safe DC. Medical Devices ImplantedTypeAreaManufacturerDevice IdentifierShelf Expiration DateModel / Serial / LotPatch Dura 3x3in Thk3.5mm Crnmxf Drmtrx-[place] + Npor Rgnrt Rpl [id number] - [id number] Implanted:Qty: 1 on 12/13/2022 by Angélica Toussaint MD at [facility] GraftSTRYKER JBFFNNVEOUOEEJEMMME68/31/[id number] / / [id number] Shnt Cdmn Certas + Sphgrd Inln Prgm - [id number] Implanted:Qty: 1 on 12/30/2022 by Angélica Toussaint MD at [facility] Other ImplantN/A: AbdomenINTEGRA [employer] Back[employer] CompanyCIG[employer]turn SALES [id number] / / Insurance * Guarantor: Taras Hayward TypeRelation to PatientDate of BirthPhone Billing AddressPersonal/MkdvmfSxyf60/[birth year][address] [address] Advance Directives TypeDate RecordedPatient RepresentativeExplanationDurable Power of Cylinder Block Mechanic 01/05/2023 3:03 PM * Full Code (Latest Code Status on File) Date ActivatedDate InactivatedComments12/13/2022 11:27 AM01/03/2023 3:22 PM Care Teams Team MemberRelationshipSpecialtyStart DateEnd Date Awais Pablo DO [address] [place] [address] PCP - GeneralInternal Medicine12/13/22
--- OUTSIDE RECORDS SUMMARY | 2025-05-09 10:15 | XMS_ITS | Clinical Summary ---
Author Organization [facility] Address [address] [address] Care Team Providers Care Torts Law Professor Name Role Phone Unavailable Primary Care Provider Unavailabl e Social History Tobacco UseTypesPacks/DayYears UsedDateSmoking Tobacco: Never AssessedUT Safety & EnvironmentAnswerDate RecordedFear of Current or Ex-PartnerNot on file 08/02/2023Emotionally AbusedNot on file08/02/2023hysically AbusedNot on file 08/02/2023Sexually AbusedNot on file08/02/2023hysically or Sexually AbusedNot on file08/02/2023Sex and Gender InformationValueDate RecordedSex Assigned at BirthNot on fileLegal LloYajn6912/07/2021 10:43 PM EDTGender IdentityNot on file Sexual OrientationNot on file Plan of Treatment Not on file
--- OUTSIDE RECORDS SUMMARY | 2025-05-09 10:15 | XMS_ITS | Clinical Summary ---
Author Organization [facility] Healthcare Address [address] [place] [address] Care Team Providers Care Building Maintenance Superintendent Name Role Phone Unavailable Primary Care Provider Unavailabl e Social History Tobacco UseTypesPacks/DayYears UsedDateSmoking Tobacco: Never AssessedSex and Gender InformationValueDate RecordedSex Assigned at BirthNot on fileLegal Sex Male08/23/2022 6:35 PM EDTGender IdentityNot on fileSexual OrientationNot on file Last Filed Vital Signs Vital SignReadingTime TakenCommentsBlood Fdaxyffl034/80001/03/2018 12:00 PM EDT Pulse--Temperature--Respiratory Rate--Oxygen Saturation--Inhaled Oxygen Concentration--Wljqam731 kg (315 lb)01/03/2018 12:00 PM GHNVwfpjp157.5 cm (6' 3 )01/03/2018 12:00 PM EDTBody Mass Index39.37001/03/2018 12:00 PM EDT Plan of Treatment Not on file
[2025-05-09 10:22] LABS: Cast Seen? NONE SEEN #/LPF (NONE SEEN); Crystals Seen? None Seen #/HPF (None Seen); Urine Culture Indicated YES-FRMC
--- NOTE | 2025-05-09 10:27 | ED.MALEGU1 ---
HPI - Male Genitourinary General Chief complaint: Urogenital-Male Stated complaint: UTI COMPLAINTS Time Seen by Provider: 05/09/25 09:53 Source: patient Mode of arrival: walk-in History of Present Illness HPI Narrative: cc - possible UTI Pt presents with dysuria, urgency and frrequency similar to prior episodes of UTI. Denies fever but this morning reported chills. Denies flank pain or abdominal pain. Pt says he has resting tachycardia with HR between 130 and 140 and that is normal for me . Related Data Home Medications ?Medication ?Instructions ?Recorded ?Confirmed carvedilol 25 mg tablet 25 mg PO Q12H 12/12/22 12/12/22 acetaminophen 500 mg capsule 500 mg PO Q4H PRN headache 02/07/23 05/09/25 atorvastatin 10 mg tablet 10 mg PO DAILY 02/07/23 05/09/25 carvedilol 6.25 mg tablet 6.25 mg PO BID 02/07/23 05/09/25 melatonin 3 mg capsule 3 mg PO DAILY 02/07/23 05/09/25 ondansetron 4 mg disintegrating 4 mg PO Q6H PRN nausea 02/07/23 05/09/25 tablet tamsulosin 0.4 mg capsule 0.4 mg PO DAILY 02/07/23 05/09/25 Previous Rx's ?Medication ?Instructions ?Recorded ciprofloxacin HCl 500 mg tablet 500 mg PO BID #10 tabs 05/09/25 (Cipro) ciprofloxacin HCl 500 mg tablet 500 mg PO BID #10 tabs 05/09/25 (Cipro) ciprofloxacin HCl 500 mg tablet 500 mg PO BID #10 tabs 05/09/25 (Cipro) Allergies Allergy/AdvReac Type Severity Reaction Status Date / Time No Known Drug Allergies Allergy Verified 05/09/25 09:47 [facility] Social History Smoking status: Smoker, status unknown Little interest or pleasure in doing things: not at all Feeling down, depressed, or hopeless: not at all Exam Narrative Exam Narrative: Nurses notes and vital signs reviewed and patient is not hypoxic. afebrile General: Well-appearing and in no apparent distress. Skin: Warm, dry, no pallor noted. Eye: Pupils are equal, round and EOMI. No scleral icterus. Ears, Nose, Mouth, and Throat: Oral mucosa is moist Cardiovascular: tachycardia. Respiratory: No accessory muscle use or respiratory distress. Lungs are clear to auscultation, no wheezing, rales or rhonchi Back: No CVA tenderness Musculoskeletal: normal ROM GI: Abdomen is soft, non-distended. Normal bowel sounds. No suprapubic mass appreciated. No tenderness to palpation. No rebound, guarding, or rigidity noted. Neurological: A&O x4. No cranial nerve dysfunction observed. No truncal ataxia. Moves all extremities. Sensation intact. Psychiatric: Cooperative and interactive. Normal mood and affect. Constitutional Vital Signs, click to edit/add: Last Vital Signs Temp 97.9 F 05/09/25 09:48 Pulse 146 H 05/09/25 09:48 Resp 18 05/09/25 09:48 BP 134/82 05/09/25 09:48 Pulse Ox 97 05/09/25 09:48 O2 Del Method Room Air 05/09/25 09:48 Course Vital Signs Vital signs: Vital Signs Temperature 97.9 F 05/09/25 09:48 Pulse Rate 146 H 05/09/25 09:48 Respiratory Rate 18 05/09/25 09:48 Blood Pressure 134/82 05/09/25 09:48 Pulse Oximetry 97 05/09/25 09:48 Oxygen Delivery Method Room Air 05/09/25 09:48 Temperature 97.9 F 05/09/25 09:48 Pulse Rate 146 H 05/09/25 09:48 Respiratory Rate 18 05/09/25 09:48 Blood Pressure 134/82 05/09/25 09:48 Pulse Oximetry 97 05/09/25 09:48 Oxygen Delivery Method Room Air 05/09/25 09:48 MDM - Male Genitourinary MDM Narrative Medical decision making narrative: Urinalysis reveals acute UTI. Positive nitrites. Large occult blood. Moderate leukocyte esterase. 50-75 white cells and large bacteria. Culture is pending. The patient was prescribed ciprofloxacin to take at home -5-day course. He can see his primary care physician for follow-up. Pt's preferred pharmacy is [facility] but they are closed today. They asked me to send the Rx to [facility] in [place]. Then, at discharge, they asked that the Rx be sent to [facility] in [place] - I cannot cancel these once they are sent electronically - so as a result the DC instructions show the same Rx sent to three different pharmacies. Lab Data Attestation: I reviewed the patient's lab results. Labs: Lab Results 05/09/25 Range/Units 10:00 Urine Color Dk. red (YELLOW) Urine Clarity Cloudy A (CLEAR) Urine pH 6.0 (5.0-9.0) Ur Specific [place] 1.025 (1.005-1.025) Urine Protein >=300 A (NEG/TRACE) mg/dL Urine Glucose (UA) Negative (NEGATIVE) mg/dL Urine Ketones Trace A (NEGATIVE) mg/dL Urine Occult Blood Large A (NEGATIVE) Urine Nitrite Positive A (NEGATIVE) Urine Bilirubin Negative (NEGATIVE) Urine Urobilinogen 4.0 A (0.2-1.0) EU/dL Ur Leukocyte Esterase Moderate A (NEGATIVE) Urine RBC 0-2 (0-2) #/HPF Urine WBC 50-75 A (NONE SEEN) #/HPF Ur Squamous Epith Cells Few A (NONE/RARE) #/LPF Urine Crystals None seen (None Seen) #/HPF Urine Bacteria Large A (NONE SEEN) #/HPF Urine Casts None seen (NONE SEEN) #/LPF Urine Mucus Trace A (NONE SEEN) Ur Culture Indicated? Yes-[facility] [place] Discharge Plan Discharge Chief Complaint: Urogenital-Male Clinical Impression: Urinary tract infection Patient Disposition: Home, Self-Care Time of Disposition Decision: 10:30 Prescriptions / Home Meds: New ciprofloxacin HCl [Cipro] 500 mg tablet 500 mg PO BID Qty: 10 0RF ciprofloxacin HCl [Cipro] 500 mg tablet 500 mg PO BID Qty: 10 0RF ciprofloxacin HCl [Cipro] 500 mg tablet 500 mg PO BID Qty: 10 0RF No Action carvedilol 25 mg tablet 25 mg PO Q12H acetaminophen 500 mg capsule 500 mg PO Q4H PRN (Reason: headache) ondansetron 4 mg tablet,disintegrating 4 mg PO Q6H PRN (Reason: nausea) tamsulosin 0.4 mg capsule 0.4 mg PO DAILY melatonin 3 mg capsule 3 mg PO DAILY atorvastatin 10 mg tablet 10 mg PO DAILY carvedilol 6.25 mg tablet 6.25 mg PO BID Rx Instructions: must administer with a meal/food Print Language: Sudanese Instructions: Urinary Tract Infection in Men (ED) Referrals: Awais Pablo DO [Primary Care Provider, Internal Medicine] - 1 week
[2025-05-09 10:36] VITALS: PULSE 130; TEMP 37
== END 2025-05-09 10:52 | disposition home or self-care (01) ==
PROVIDERS: Emergency Provider Emergency Medicine; PCP Internal Medicine
DX: N39.0 Urinary tract infection, site not specified (principal); R30.0 Dysuria; R39.15 Urgency of urination; R35.0 Frequency of micturition
CPT/HCPCS: 81001; 87086; 87088; 87186; 99283

== ENCOUNTER 2025-05-12 11:19 | Outpatient (OUT) | payer BC, SELFPAY ==
--- OUTSIDE RECORDS SUMMARY | 2025-05-09 19:10 | XMS_ITS | Continuity of Care Document ---
Author Organization [facility] Address [address] [place] [address] Phone Care Team Providers Care [employer] Name Role Phone SamyAwais Primary Care Provider Awais Pablo DO Attending Provider [phone] Tova Zayas MD Attending Provider [phone] Wood Espinosa DO Attending Provider Care Teams Patient Care Team [...] March 19, 2025 End: March 19, 2025 Visit Care Team Team Status: Inactive Member Role/Relationship Status Dates Awais Pablo DO Primary Care Provider Active Start: May 05, 2025 End: May 05Mervin Santos ProviderActiveStart: May 05, 2025 End: May 05, 2025 Patient Care Team Team Status: Active Member Role/Relationship Status Dates Awais Pablo DO Primary Care Provider Active Start: May 09, 2025 Mervin See ProviderActiveStart: May 09, 2025 Chief Complaint and Reason for Visit Chief Complaint Admit Date B12 February 16, 2025 4:06pm B12 Shot March 19, 2025 4: 09pm possible kidney stone May 05 11:37am Reason for Visit Admit Date Pernicious anemia March 19, 2025 4: 09pm Acute right flank pain May 05 11:37am Gross hematuria May 05, 2025 11:37am History of nephrolithiasis April 11:37am Right lower quadrant abdominal pain Nove mb 2024 11:37am Allergies, Adverse Reactions, Alerts Allergen Type Severity Reaction Last Updated Verified Status No Known Allergies Allergy Unknown May 05, 2025 11:58amYesActive Social History Smoking Status Status Start Date End Date Date of Observa tion Never smoked tobacco (finding) January 14, 2023 10:58am Observation Status Observation Response Date of Response Legal Sex Male (finding) [facility] 1970 Family History Relationship Condition Age at Onset Recorded Date/T jesús mother Heart disease Unknown Malignant neoplasmUnknown Problems Active Problems Problem Diagnosis/Recorded Date Onset Date Status C omments Right lower quadrant abdomin al pain May 05, 2025 12:26pm Unknown Active Acute right flank painNov2024 12:26pmUnknownActiveCOVID-19March 2023 11:44amUnknownActiveCerebellar infarction with occlusion or stenosis of cerebellar arteryMarch 2023 11:06amUnknownActiveScreening PSA (prostate specific antigen)May 13, 2024 6:59amUnknownActivePSA: 1.73 - 11/2020, 1.60 - 01/2022, 1.17 - 2Screening for colon cancerJune 2024 8:25amUnknown ActiveElevated cholesterolMarch 2023 11:06amUnknownActiveAnemiaJune 2024 12:31pmUnknownActivePernicious anemiaJuly 2024 7:36amUnknownActive Sinus tachycardiaDecember 2023 9:47amUnknownActiveAcute venous embolism and thrombosis of deep vessels of distal end of right lower extremityMarch 2023 11:04amUnknownActiveStenosis of left vertebral arteryMarch 2023 11:06amUnknownActiveCerebral atherosclerosisMay 2023 6:41amUnknownActive Wellness examinationJune 2024 8:26amUnknownActiveIFG (impaired fasting glucose)August 27, 2023 11:06amUnknownActiveGross hematuriaNovember 2024 12:26pmUnknownActiveEssential hypertensionMarch 2023 11:06amUnknownActive History of nephrolithiasisMarch 2023 11:06amUnknownActiveObesityMay 2023 2:30pmUnknownActiveInactive/Resolved Problems Problem Diagnosis/Recorded Date Onset [...] of Phys. EHR CmteObesity (BMI 35.0-39.9 without comorbidity)January 04, 2023 10:30amUnknownResolvedProblem List clean-up per request of Phys. EHR CmteS/P GENERAL INSPECTOR shuntJuly 2022 10:30amUnknownResolvedProblem List clean-up per request of Phys. EHR CmteHypertensionJuly 2022 10:30amUnknownResolved Problem List clean-up per request of Phys. EHR CmteNauseaA2022 11:02amUnknownResolvedProblem List clean-up per request of Phys. [facility]HR [facility] Medications Medication Status Dose Units Route Directions Qty Days Refills S tart Date Stop Date End Date Reason(s) Instructions Adherence Amitriptyline 10 mg tablet Discontinued 0 .ROUTE.FBUOTYH452Exbpv2023 4:17pmJuly 2023 8:14amTAKE 1 TABLET BY MOUTH EVERY DAY AT BEDTIMEVenlafaxine 37.5 mg tabletDiscontinued0.ROUTE.COMPLEX 2023 4:17pmJuly 2023 8:14amTAKE 1 TABLET BY MOUTH EVERY DAY WITH FOOD FOR 30 DAYSCyproheptadine 4 mg tabletDiscontinued0.ROUTE.JMNONXE461 September 03, 2023 4:17pmJuly 2023 8:14amTAKE 1 TABLET BY MOUTH EVERY DAY AT BEDTIMECarvedilol 6.25 mg tabletDiscontinued0.ROUTE.ZLVPSVM1595Lrsf2023 8:15amDece2023 9:36amTAKE 1 TABLET BY MOUTH TWICE A DAY WITH FOOD FOR 90 DAYSTamsulosin 0.4 mg capsuleDiscontinued0.ROUTE.TBKVFTV297Qapx2023 8:15amJuly 2023 8:14amTAKE 1 CAPSULE BY MOUTH EVERY DAY FOR 90 DAYS Atorvastatin 10 mg tabletDiscontinued0.ROUTE.2023 7:40am April 21, 2024 1:04pmTAKE 1 TABLET BY MOUTH EVERY DAY FOR 90 DAYSAspirin 81 mg tablet,delayed release (DR/EC)Discontinued0.ROUTE.KEPTYAC670Vmgbjd2023 4:17pmAugust 2024 7:11amTAKE 1 TABLET BY MOUTH EVERY DAY FOR 90 DAYS Atorvastatin 10 mg sxshqzVnyqqlcdwdbe65KIMXGtkce at elslhfm28265Ejrumvdk2023 1:04pmOctober 2024 8:40amOndansetron 8 mg tablet,disintegrating Ubvzzhovmlew3UPDSOehbw 6 hours as needed for Nausea And Zzjxsoye321042Judcdtkd 12th, 2024 9:20amJun2024 8:29amCarvedilol 6.25 mg tabletDiscontinued6.25 MGPOEvery 12 ipjzq169836Awld2024 2:19pmJun2024 2:20pmCarvedilol 6.25 mg tabletDiscontinued0.ROUTE.HJVNUGH1939Msoj2024 2:20pmOct2024 8:40amTAKE 1 TABLET BY MOUTH TWICE A DAY WITH FOOD FOR 90 DAYSFolic Acid 1 mg viyugxCuywyygfqvso0QMTFQtyby49765Mcwq 23rd, 2025 11:00pmOctober 2024 8:40amPolysaccharide Iron Complex (Ferrex 150) 150 mg iron capsuleDiscontinued 884MUNDUhykp86024Edvi 23rd, 2025 11:00pmOctober 2024 8:40amAspirin 81 mg tablet,delayed release (DR/EC)Discontinued0.ROUTE.HCNJNAL038Eametd2024 7:11amOctober 2024 8:40amTAKE 1 TABLET BY MOUTH EVERY DAY FOR 90 DAYS Aspirin 81 mg tablet,delayed release (DR/EC)Yyvzvu25IWYAIfvwt30794Dmvhwqk 24th, 2025 8:39amUnknownAtorvastatin 10 mg injmukUopuiz72MLGRWsqnf at iqvqmys65304 April 03, 2025 8:39amUnknownCarvedilol 6.25 mg tabletActive6.25MGPOEvery 12 udxsh269177Eksnemw2024 8:39amUnknownFolic Acid 1 mg ywqisoEosnjn7UMXA Xrehy88945Hjgkagf2024 8:40amUnknownOndansetron 8 mg tablet,disintegrating Fvhynr1BNIUCrdyx 6 hours as needed for Nausea And Jnateaot138600Tlbuiqc2024 8:40amUnknownPolysaccharide Iron Complex (Ferrex 150) 150 mg iron capsule Rpujhu839IICXTadlt25607Usvdrmc 24th, 2025 8:40amUnknownCarvedilol (Coreg) 6.25 mg TabletDiscontinued6.97PQUFO28GZwrs 2022 11:00pmAugust 2022 2:06pm must administer with a meal/foodPolyethylene Glycol 3350 (Miralax) 17 gram Powder In QvtptpAwwczhxdbxet20DCRERqibw as needed for ConstipationJuly 2022 11:00pmAugust 2022 2:06pmAtorvastatin 10 mg LdsmmrVnzwjfkpgmxh59COQT Daily at bedtimeJuly 2022 11:00pmAugust 2022 2:06pmSennosides- Docusate Sodium 8.6-50 mg ObiotgMkxllsuoowca6MCM-XNEHADwgpv dailyJuly 2022 11:00pmAugust 2022 2:07pmMelatonin 3 mg LatleaQxrpgkflgdkt7LRVTAjgxfzbZynt 2022 11:00pmJuly 2023 8:14amAspirin 81 mg Tablet,Delayed Release (Dr/Ec)Emcazcranoya41QRUCArkls morningJuly 2022 11:00pmAugust 2022 2:06pmAmitriptyline 10 mg LrxyjaWfobwugbigng40URVUUvkcg at bedtimeJuly 2022 11:00pmAugust 2022 2:07pmSemaglutide (Ozempic) 0.25 mg or 0.5 mg (2 mg/3 mL) Pen InjectorDiscontinued0.5MGSUBCUTevery weekJuly 2022 11:00pm August 27, 2023 11:27amApixaban (Eliquis) 5 mg ItbfndOfkruhakmbkf3NLTWEubzb ovwsf63848Hpwldm 2022 11:00pmMay 2023 2:22pmAcetaminophen 500 mg SsrlwbCpzadlkwiekk925MHBZJ7P as needed for Lpxzlumh283572Aggllr 2022 11:00pmMarch 2023 11:25amVenlafaxine 37.5 mg Capsule,Extended Release 24hr Irsgkcxotptn42.8BKRMKzgtm98277Nyzdds 2022 11:00pmMarch 2023 4:17pm Bacitracin 500 unit/gram MfcdfyjbAwpnfhekbidc8THORBWXKOLCVYZzyjv agudt31Fwduca 2022 11:00pmMarch 2023 11:26amCyproheptadine 4 mg TabletDiscontinued 4MGPODaily at groyekr62443Vqumkf2022 11:00pmMar 2023 4:17pm Tamsulosin 0.4 mg CapsuleDiscontinued0.2TBSNDbcewfb34498Zlqhnp 14th, 2023 11:00pmMay 2023 2:21pmOndansetron 4 mg Tablet,DisintegratingDiscontinued4 MGPOEvery 6 hours as needed for Nausea And Pnyfqupu7830Moetjy 14th, 2023 11:00pm August 21, 2023 9:30amCarvedilol (Coreg) 6.25 mg TabletDiscontinued6.70IGQMY40D 16144Rnlrzv 2022 2:06pmJune 2023 8:16ammust administer with a meal/foodPolyethylene Glycol 3350 (Miralax) 17 gram Powder In PacketDiscontinued 17GMPODaily as needed for Cbqkeuxpfbyd12250Jpggpd 15th, 2023 2:06pmJuly 2023 8:14amAtorvastatin 10 mg NynrdsSijsjftdryrz55ILOKNkuey at lxivilr60405 January 23, 2023 2:06pmJuly 2023 7:40amAspirin 81 mg Tablet,Delayed Release (Dr/Ec)Pwboeuvsbfum81ZGNFYgzay acrvenr11585Icuqnk 15th, 2023 2:06pm January 21, 2024 4:17pmBacitracin 500 unit/gram slhiqvykIifkbnubmfge2JLOUCI TOPICALTwice fkinz1872.470July 2022 11:00pmAugust 2022 2:07pm Amitriptyline 10 mg dcakqvPuodakzfuanh05JIIXLdkug at bedtimeReg[facility] 2023 11:00pm[facility] 2023 4:17pmCarvedilol 12.5 mg nzvjieKehgpmlksuov07.5MGPOEvery 12 eamnw892936Mmnacopm 2023 9:35amJune 2024 2:19pmOndansetron 8 mg tablet,prluwojglismycSrlcauxhgqju8JABWWacir 6 hours as needed for Nausea And Iwecdhgz348722Ogzuxlda 2023 9:36amDecember 2023 9:20amTamsulosin 0.4 mg capsuleActive0.4MGPODaily at opgqzrx12991Enntohja 25th, 2025 12:00amUnknown Tamsulosin 0.4 mg capsuleDiscontinued0.4MGPODailyJune 2023 11:00pmJune 2023 8:16amOndansetron 4 mg tablet,bllfjipscuozxgRbekjalughbw5VUXAGdyps 6 hours as needed for Nausea And VomitingMarch 2023 9:30amMarch 2023 12:18pmOndansetron 8 mg tablet,hwgkcrauxygntoNmoontbvshzo6EZAXCzzwz 6 hours as needed for Nausea And Oemrnfty455111Nucbw 2023 12:17pmDecember 2023 9:38amOndansetron 8 mg tablet,kapgjumynhenorFblojfzwifpg3SXFTCfzsh 6 hours as needed for Nausea And Ekhiaell000132Sbkd 2024 8:18amOctober 2024 8:40amAzithromycin 250 mg retjkmUkfygovpuhex869OBFW.LCJCAQZ578Mdgycoh 2024 12:00amJune 2024 7:59am2 tabs on first day followed by 1 tab on days 2-5 Immunizations Immunization Event Date Not Given Reason Dose Number [employer] Lot Number Reason(s) Given Vaccine Information Statement (VIS) Detail Administration Location Tetanus, Diphtheria adult, 5 Lf pres free abs Oc tober 2019 Medical Equipment Device Date Implanted Device Details GENERAL INSPECTOR shunt- [employer] December 30, 2022 Relevant Diagnostic Tests and/or Laboratory Data Laboratory Results Test Collection Date/Time Result Date/Time Result Interpretation Reference Range Result Comment Performing Site Urine Microscopic Review May 09, 2025 10: 00am May 09, 2025 10:00am YES Urine BilirubinMay 09, 2025 10:00amNovember 2024 10:00amNEGATIVE NEGATIVEUrine Occult BloodNov2024 10:00amNovember 2024 10:00am LARGEAbnormal (applies to non-numeric results)NEGATIVEUrine AppearanceMay 09, 2025 10:00amNove2024 10:00amCLOUDYAbnormal (applies to non- numeric results)CLEARUrine ColorMay 09, 2025 10:00amNove2024 10:00amDK. REDYELLOWUrine Glucose (UA)May 09, 2025 10:00amNove2024 10:00amNEGATIVE mg/dLNEGATIVEUrine KetonesMay 09, 2025 10:00am May 09, 2025 10:00amTRACE mg/dLAbnormal (applies to non-numeric results) NEGATIVEUrine Leukocyte EsteraseMay 09, 2025 10:00amNove2024 10:00amMODERATEAbnormal (applies to non-numeric results)NEGATIVEUrine Nitrite May 09, 2025 10:00amNove2024 10:00amPOSITIVEAbnormal (applies to non-numeric results)NEGATIVEUrine pHMay 09, 2025 10:00amNove2024 10:00am6.05.0-9.0Urine ProteinMay 09, 2025 10:00amNove2024 10:00am>=300 mg/dLAbnormal (applies to non-numeric results)NEG/TRACEUrine Specific GravityMay 09, 2025 10:00amNove2024 10:00am1.025 1.005-1.025Urine UrobilinogenMay 09, 2025 10:00amNove2024 10:00am4.0 EU/dLAbnormal (applies to non-numeric results)0.2-1.0 Vital Signs Vital Reading Result Reference Range Collection Date/Time Height 73 [in_i] May 05, 2025 12:93vqVpjzel454.60 kgMay 05, 2025 12:02pmHeart Rate 76 /wlk92-430XmzqezxhMay 05, 2025 12:02pmRespiratory rate12 /jfc16-00CbxdaekrMay 05, 2025 12:02pmBP Jdzaoxvr619 mm[Hg]100-140May 05, 2025 12:02pmBP Kikqgdtna43 mm[Hg]60-100November 25th, 2025 12:02pmBMI (Body Mass Index)45.5 kg/q4XuhfpdwyMay 05, 2025 12:02pm Advance Directives Advance Directive Response Recorded Date/ Time Advance Directives No January 03 9:07am Insurance Providers Guarantor Taras Hayward Address [address] [facility] [address]Acebhnc Info.Home Phone: Coverage Status Update:2025 Payer Group Member ID Coverage Type Subscriber Relationship to Subscriber Effective Date Expiration Date Karon PENA/LILIBETH Id: [id number] Joe Hayward Id: [id number] [address] [facility] [address] Home Phone: Email: [email or web address] Encounter Location(s) Arrival/Admit Date Discharge/Departure Date Discharge/Departure Disposition Provider(s) Departed Physician/ Provider Office Visit -[facility] February 16, 2025 4:06pm February 16, 2025 4:11pm Discharged to home care or self care (routine discharge) Awais Pablo DO Departed Physician/ Provider Office Visit -[facility] March 19, 2025 4:09pm March 19, 2025 4:14pm Discharged to home care or self care (routine discharge) Tova Zayas MD Departed Physician/ Provider Office Visit -[facility] May 05, 2025 11:37am May 05, 2025 12:17pm Discharged to home care or self care (routine discharge) Awais Pablo DO Non-patient / Non-visit -[facility] [employer] May 09, 2025 10:00am ([place]) Wood Espinosa DO Recent Diagnosis Onset Date Admit Date Pernicious anemia Unknown March 19 4:09pm Acute right flank pain Unknown May 05, 2025 11:37am Gross hematuria Unknown May 05 11:37am History of nephrolithiasis Unknown 2024 11:37am Right lower quadrant abdominal pain Unknown May 05, 2025 11:37am Assessments Diagnosis Onset Date Resolution Status Admit Date Pernicious anemia acuteOct2024 4:09pmAcute right flank painacuteNovember 2024 11:37amGross hematuriaacuteNovember 2024 11:37amHistory of nephrolithiasis acuteNovember 2024 11:37amRight lower quadrant abdominal painacuteNovember 2024 11:37am Plan of Treatment Author Awais Pablo [facility] HospitalAuthoredNovember 2024 12:32pmSymptoms similar to previous episode of ureteral stones. Instructed to push fluids Instructed to use Tylenol for pain. Recommended CT abd/pelvis: r/o renal mass/tumor, stones, hydronephrosis and bladder mass/tumor. Symptoms similar to previous episode of ureteral stones. Instructed to push fluids Instructed to use Tylenol for pain. Recommended CT abd/pelvis: r/o renal mass/tumor, stones, hydronephrosis and bladder mass/tumor. Instructed to push fluids Recommended CT abd/pelvis: r/o renal mass/tumor, stones, hydronephrosis and bladder mass/tumor. Symptoms similar to previous episode of right sided ureteral stone, complicated by pyelonephritis. Required percutaneous nephrostomy, ESWL, IV fluids/IV antibiotics and hospital stay. Future Tests Future scheduled test information is unavailable Pending Tests Test Name Ordered Date Scheduled Date Urine Culture May 09, 2025 10:00am CT abdomen pelvis w Jean 2024 12:33pm Future Visits Future appointment information is unavailable Future Procedures Procedure Name Ordered Date Scheduled Date Urine Culture May 09, 2025 11:30am Riddhi alex 2024 10:00am Future Medications Future medication information is unavailable Patient Instructions Patient instructions are unavailable
--- OUTSIDE RECORDS SUMMARY | 2025-05-12 11:25 | XMS_ITS | Clinical Summary ---
Author Organization [facility] Address [address] [place], [place] [address] Care Team Providers Care Appliance Installer Name Role Phone Awais Pablo Primary Care Provider [phone] Allergies Active AllergyReactionsCriticalityNoted DateCommentsFeathersOther: See Comments Icucxc9005/22/2022 nasal congestion Medications MedicationSigDispense QuantityRefillsLast FilledStart DateEnd DateStatus carvedilol (COREG) 12.5 mg tablet Take by mouth.04/12/2022ctive oxybutynin (DITROPAN) 5 mg tablet Take by mouth.04/12/2022ctive OZEMPIC 0.25 mg or 0.5 mg(2 mg/1.5 mL) pen INJECT 0.5MG SUBCUTANEOUSLY SJBZVZ7703/27/2022ctive cholecalciferol, vitamin D3, (VITAMIN D3 ORAL) Take 5,000 Int'l Units/L by mouth once daily.Active tamsulosin (FLOMAX) 0.4 mg Take 1 capsule by mouth daily at bedtime. 30 capsule 05/24/2022ctive oxyCODONE IR (ROXICODONE) 5 mg immediate release tablet Indications:NephrolithiasisTake 1 tablet by mouth every 8 hours as needed for pain. 6 tablet 05/24/2022ctive Active Problems ProblemNoted DateDiagnosed SgwgZkhapkbqokuoaek31/29/2022Family history of cawvmwjvngyvixe84/29/2022MI 40.0-44.9, adult05/09/2022 Assessment & Plan (05/18/2022 1:52 PM EST): Assessment: Body mass index is 44.2 kg/m??. History of gastric xykswo1705/09/2022Essential ciatdbdnsffy43/29/2022 Assessment & Plan (05/18/2022 2:04 PM EST): Assessment: Managed with carvedilol (COREG) BP this visit 148/92 Denies SOB, dizziness, lightheadedness, palpitations, syncope or chest pain Feqcpafbbcj72/29/2022 Assessment & Plan (05/18/2022 2:05 PM EST): Assessment: managed with OZEMPIC Ordered A1C Bladder jdvaph4907/09/2021Ureteral stent qjlcfqh7805/09/2022 Assessment & Plan (05/18/2022 2:05 PM EST): Assessment: Right placed 03/2022 Immunizations ImmunizationAdministration DatesNext DueCOVID-19 original vaccine, full dose, monovalent (MODERNA)04/11/2022,04/06/2021,07/07/2020,06/09/2020 Social History Tobacco UseTypesPacks/DayYears UsedDateSmoking Tobacco: NeverSmokeless Tobacco: Never Tobacco Cessation:Counseling Given: Not Answered Alcohol UseStandard Drinks/WeekCommentsYes1 (1 standard drink = 0.6 oz pure alcohol)may have a drink every 6 monthsArea Deprivation IndexAnswerDate Recorded National Score (1-100), lower number is lower xhbk873906/30/2022State Score (1- 10), lower number is lower riskNot on file06/30/2022ata from: https://www.neighborhoodatlas.[facility].edu/. Last address used for [address] [facility]06/30/2022Sex and Gender InformationValueDate Recorded Sex Assigned at BirthNot on fileLegal ZalQjob00/03/2022 11:29 AM EDTGender IdentityNot on fileSexual OrientationNot on file Last Filed Vital Signs Vital SignReadingTime TakenCommentsBlood Dxonorgr059/7905/24/2022 5:03 AM EST Ochrk061605/24/2022 5:03 AM HQXBcqrlhxgfqe44.2 ??C (97.2 ??F)05/24/2022 5:03 AM ESTRespiratory Zloa829707/25/2021 5:03 AM ESTOxygen Gdqdwnomsh30%05/24/2022 6:26 AM ESTInhaled Oxygen Concentration--Xlherv345.4 kg (353 lb 9.9 oz)05/23/2022 1:01 AM EPUDrynck905.5 cm (6' 3 )05/22/2022 6:20 AM ESTBody Mass Index44.2 05/22/2022 6:20 AM EST Plan of Treatment Health MaintenanceDue DateLast DoneCommentsAnnual PCP Team Chronic Disease Visit 1990Anxiety Yrpbevizk55/20/1991Depression Lapkmtxny91/20/1991HIV Screening 1990Hepatitis C Bqdbhirec36/20/1991DTaP,Tdap,Td Vaccine (1 - Tdap) 08/29/1991Hepatitis B Vaccine (1 of 3 - 19+ 3-dose series)08/29/1991Lipid Wnnwranfk82/20/2008CT Urzeyhrdwlzo72/20/6694Xpdlwotfppm30/20/2018Fecal Occult Blood08/28/20178033Aechnqmjryhcn92/20/2018Pneumococcal Vaccine: 50+ (1 of 1 - PCV) 2022Shingrix Vaccine (1 of 2)3Covid-19 Vaccine (5 - 2024- season)/06/2021, 04/06/2021, 07/07/2020, Additional history exists Influenza Vaccine (#1)510/, 03/11/2019Cologuard (FIT-DNA) olorectal Cancer Eeuretawq01/02/2025Diabetes Screening , 05/23/2022, 05/22/2022, Additional history exists Medical Devices ImplantedTypeAreaManufacturerDevice IdentifierShelf Expiration DateModel / Serial / LotClipClipAbdomenStent Uro Unvrs Frm 7fr 30cm Implanted:Qty: 1 on 05/22/2022 at [facility] StentsRight: Ureter [employer] [id number]/22/[id number] / / [id number] Procedures Procedure NamePriorityDate/TimeAssociated DiagnosisCommentsBASIC METABOLIC PANEL Hxqypla6705/24/2022 5:09 AM EST from Last 3 Months or Most Recently Relevant to Health Maintenance Results * (ABNORMAL) BASIC METABOLIC PNL (05/24/2022 5:09 AM EST)ComponentValueRef Range Test MethodAnalysis TimePerformed AtPathologist VqfvmjesjVrfnidr2586 - 99 mg/dL05/24/2022 6:33 AM [facility] LABComment: The [place] Diabetes Association (ADA) provides guidance for cutoff values for fasting glucose andrandom glucose. The ADA defines fasting as no [...] Standards of Medical Care in Diabetes 2016, [place] Diabetes Association. Diabetes Care. 2016.39(Suppl 1). KTK987 - 24 mg/dL05/24/2022 6:33 AM [facility] Creatinine0.940.73 - 1.22 mg/dL05/24/2022 6:33 AM [facility] YZQHxewfg054846 - 144 mmol/L107/25/2021 6:33 AM [facility] LABPotassium3.6(L)3.7 - 5.1 mmol/L107/25/2021 6:33 AM [facility] LOUIcbkxebt20975 - 105 mmol/L107/25/2021 6:33 AM [facility] CYZTK69725 - 30 mmol/L107/25/2021 6:33 AM [facility] LABAnion Xek974 - 18 mmol/L107/25/2021 6:33 AM [facility] LABCalcium, Total8.88.5 - 10.2 mg/dL05/24/2022 6:33 AM [facility] LABEstimated Glomerular Filtration Rate99>=60 mL/min/1.73m 05/24/2022 6:33 AM ESTOH[facility] LABComment:Estimated Glomerular Filtration Rate (eGFR) is calculated using the 2020 CKD-EPI creatinine equation. This equation utilizes serum creatinine, sex, and age as parameters. The creatinine assay has traceable calibration to isotope dilution- mass spectrometry. Refer to KDIGO guidelines for clinical interpretation. In patients with unstable renal function, e.g. those with acute kidney injury, the eGFRmay not accurately reflect actual GFR.Specimen (Source)Anatomical Location / LateralityCollection Method / VolumeCollection TimeReceived TimeBloodBLOOD SPECIMEN / UnknownVenipuncture / Voxeflc7305/24/2022 5:09 AM EST05/24/2022 5:54 AM EST Narrative Authorizing ProviderResult TypeResult StatusCalvin Coffey MDLABORATORYFinal ResultPerforming OrganizationAddressCity/State/ZIP CodePhone Number [facility] [id number] [place] [address], from Last 3 Months or Most Recently Relevant to Health Maintenance Insurance Care Teams Team MemberRelationshipSpecialtyStart DateEnd Date Awais Pablo DO PCP - GeneralInternal Efmrpmft83/2/22
--- OUTSIDE RECORDS SUMMARY | 2025-05-12 11:25 | XMS_ITS | Clinical Summary ---
Author Organization [facility] Address [address] [place] [address] Care Team Providers Care Pipe Fitter Gas Pipe Name Role Phone Unavailable Primary Care Provider Unavailabl e Social History Tobacco UseTypesPacks/DayYears UsedDateSmoking Tobacco: Never AssessedUT Safety & EnvironmentAnswerDate RecordedFear of Current or Ex-PartnerNot on file 08/02/2023Emotionally AbusedNot on file08/02/2023hysically AbusedNot on file 08/02/2023Sexually AbusedNot on file08/02/2023hysically or Sexually AbusedNot on file08/02/2023Sex and Gender InformationValueDate RecordedSex Assigned at BirthNot on fileLegal KxtHyps9312/07/2021 10:43 PM EDTGender IdentityNot on file Sexual OrientationNot on file Plan of Treatment Not on file
--- OUTSIDE RECORDS SUMMARY | 2025-05-12 11:25 | XMS_ITS | Clinical Summary ---
Author Organization [facility] Address [address] [place] [address] Care Team Providers Care Monomer Purification Operator Name Role Phone Unavailable Primary Care Provider Unavailabl e Social History Tobacco UseTypesPacks/DayYears UsedDateSmoking Tobacco: Never AssessedSex and Gender InformationValueDate RecordedSex Assigned at BirthNot on fileLegal Sex Male08/23/2022 6:35 PM EDTGender IdentityNot on fileSexual OrientationNot on file Last Filed Vital Signs Vital SignReadingTime TakenCommentsBlood Lcqmwsuc129/80001/03/2018 12:00 PM EDT Pulse--Temperature--Respiratory Rate--Oxygen Saturation--Inhaled Oxygen Concentration--Mvxbia821 kg (315 lb)01/03/2018 12:00 PM FNZWibpsl749.5 cm (6' 3 )01/03/2018 12:00 PM EDTBody Mass Index39.37001/03/2018 12:00 PM EDT Plan of Treatment Not on file
--- OUTSIDE RECORDS SUMMARY | 2025-05-12 11:25 | XMS_ITS | Clinical Summary ---
Author Organization [employer] tem Address [id number] [address] [place] [address] Care Team Providers Care Expense Clerk Name Role Phone Awais Pablo DO Primary Care Provider [phone] Allergies No known active allergies Medications * [...] by mouth.02/20/2023ctive Active Problems ProblemNoted DateDiagnosed DateSequelae, post-ryfvvz8612/11/20230726Nymdgr92/14/2023 CSF leak02/07/2023Vertebral artery sryqnvhyiq73/05/2023Essential hypertension 05/09/2022 Overview (02/22/2023): Last Assessment & Plan: Assessment: Managed with carvedilol (COREG) BP this visit 148/92 Denies SOB, dizziness, lightheadedness, palpitations, syncope or chest pain Immunizations ImmunizationAdministration DatesNext DueInfluenza, Live, Nvanebwrhg35/01/2019 Influenza, Hiueytnxwva08/26/2022 Family History Medical HistoryRelationNameCommentsDiabetesBrotherHeart diseaseBrotherCancer MotherHeart diseaseMotherRelationNameStatusCommentsBrotherMother [...] more drinks on one occasion?Never12/13/2022HQ-2 AnswerDate RecordedTotal Rmjph90607/31/2022Housing InstabilityAnswerDate Recorded Are you worried or concerned that in the next two months you may not have stable housing that you own, rent or stay in as a part of a household?No02/09/2023 ChildcareAnswerDate TlwtqcmfRgycyfccnWayvoej04/12/2019EmploymentAnswerDate AtxhmtfnNthizapfsgSjytupe86/12/2019Hunger ScreeningAnswerDate RecordedWithin the past 12 months we [...] Last Filed Vital Signs Vital SignReadingTime TakenCommentsBlood Auoafyca887/8303 12:46 PM EDT Wvfdo040609/05/2023 12:46 PM BHBXbmjollqfto90.6 ??C (97.9 ??F)02/09/2023 3:23 PM EDTRespiratory Guhv4806 3:23 PM EDTOxygen Ijtvdftybh98%02/09/2023 3:23 PM EDTInhaled Oxygen Concentration--Eoyolg083.6 kg (310 lb)12/05/2023 12:55 PM BHQKtkiew373.5 cm (6' 3 )12/05/2023 12:55 PM EDTBody Mass Index38.75012/05/2023 12:55 PM EDT Plan of Treatment Health MaintenanceDue DateLast DoneCommentsDTaP,Tdap and Td Vaccines (1 - Tdap) Zoster (Shingles) Vaccine (1 of 2)3Depression Cwadoyxdp41/3Adult BMI Pixjgydwy47/26//Tobacco Nktnozepi77/26//4COVID-19 Vaccine ( season)2025 04/11/2022, 04/06/2021, 07/07/2020, Additional history existsInfluenza Vaccine /, 03/11/2019 Goals GoalPatient Goal TypeAssociated ProblemsRecent ProgressPatient-Stated?Author Patient will have a safe DC Mica Crystal RN Note: Evaluation of progress towards goal: Pt will have a safe DC. Medical Devices ImplantedTypeAreaManufacturerDevice IdentifierShelf Expiration DateModel / Serial / LotPatch Dura 3x3in Thk3.5mm Crnmxf Drmtrx-[place] + Npor Rgnrt Rpl [id number] - [id number] Implanted:Qty: 1 on 12/13/2022 by Angélica Toussaint MD at [facility] GraftSTRYKER OEEFRDUUNLGHYBJZASE59/31/[id number] / / [id number] Shnt Cdmn Certas + Sphgrd Inln Prgm - [id number] Implanted:Qty: 1 on 12/30/2022 by Angélica Toussaint MD at [facility] Other ImplantN/A: AbdomenINTEGRA [employer] SALES [id number] / / Insurance * Guarantor: Taras Hayward TypeRelation to PatientDate of BirthPhone Billing AddressPersonal/YkzsrjKfee02/20/1971 [address] [address] Advance Directives TypeDate RecordedPatient RepresentativeExplanationDurable Power of Faculty Head 01/05/2023 3:03 PM * Full Code (Latest Code Status on File) Date ActivatedDate InactivatedComments12/13/2022 11:27 AM01/03/2023 3:22 PM Care Teams Team MemberRelationshipSpecialtyStart DateEnd Date Awais Pablo DO [address] [place] [address] PCP - GeneralInternal Medicine12/13/22
--- OUTSIDE RECORDS SUMMARY | 2025-05-12 11:31 | XMS_ITS | CCD ---
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 Name Role Phone AWAIS GARCIA Primary Care Physician Unavailable Primary Care Provider UnavailAwais Campo DO Primary Care Provider AWAIS GARCIA Primary Care Unavailable CYNTHIA BLACKWOOD Referring Unavailab deo COFFEY, HARSH Referring Unavailable KONRAD ILLLY Referring Unavailable HARSH COFFEY Attending Unavailable AWAIS [...] Unavailable ZIEBER, DR INÉS Ortega Consulting Unavailable HAY ., DR GODOY Consulting Unavailable TERRANCE MARRERO [...] Other Provider MD Inés Ly Other Provider [phone] DO Pawan Oates Other Provider Stan, ANP-BC Rita Other Provider DO Pilo Nieto Other Provider RADHA Terry Other Provider KARLA Malloy-Micheal Cheung Other Provider [phone] RADHA Wei-CEMENT TILE MAKER-C Kendal Hurt Other Provider SHELBY Avilez Other [...] Hay Consulting Unavailable Megha Lacy Consulting Unavailable [place], Inés Consulting Unavailable Pawan Oates Consulting Unavailab [...] Unavailable Jose, DO Awais Primary Care Provider [phone] EVER Barrios Attending Provider [phone] Jose, DO Ernandez Primary Care Provider EVER Barrios Attending Provider [phone] NIR MEADOWS Attending Unavailable BALL, AWAIS E [...] Care Provider Jose MANRIQUE, Awais Attending Provider Jose MANRIQUE, Awais Primary Care Provider Ball , Awais Attending Provider Tova Zayas MD Attending Provider Allergies Allergy ClassificationReported Allergen(s)Allergy TypeDate of OnsetReaction(s) Facility (1 source)[facility]; Translations: [FEATHERS]Propensity to adverse reactions to drug (disorder)[facility]32[facility]30[facility] Medications Current Medications MedicationDrug Class(es)DatesSig (Normalized)Sig (Original)3 ML semaglutide 1.34 MG/ML Pen Injector [Ozempic] (20 sources)Start: 97-73-6347siwcol 1 mg by subcutaneous injection every week [...] as directed Subcutaneous Not-Taking Acetaminophen (20 sources)Start: 55-08-1427fldcunstralhe 500 mg Tab Start Date: 02/20/23 Status: OrderedStart: 01-23-2023 End: 08-11-0823purt 1 tablet by mouth every four hours as needed for headache Acetaminophen 500 mg Tablet Discontinued 500 MG PO Q4H as needed for Headache 180 30 January 23, 2023 12:00am August 27, 2023 12:25pmStart: 12-74-3690tqyd 2 tablets by mouth every six hours [...] sources)Platelet Aggregation Inhibitor, Nonsteroidal Anti-inflammatory Drug Start: 55-72-6421wspe 1 tablet by mouth once dailyCVS ASPIRIN EC 81 MG TABLET CVS ASPIRIN EC 81 MG TABLET, TAKE 1 TABLET BY MOUTH EVERY DAY FOR 90 DAYS Start Date: 05/15/24 Status: OrderedStart: 01-21-2024 End: 50-05-3543nozi 1 tablet by mouth once dailyStart: 10-89-1447Bzfdp Aspirin Start Date: 02/20/23 Status: OrderedStart: 01-03-2023 End: 60-45-9979eadz 1 tablet by mouth once daily in the morningAspirin 81 mg Tablet,Delayed Release (Dr/Ec) Discontinued 81 MG PO Every morning January 3:06pm January 21, 2024 5:17pmtake 1 tablet by mouth once daily Aspirin 81 81 MG 1 tablet Orally Once a day Activeatorvastatin 10 mg oral tablet (20 sources)HMG-CoA Reductase InhibitorStart: 29-29-9169zbfm 1 tablet by mouth once daily at bedtimeStart: 12-27-2023 End: 85-83-5205vyvy 1 tablet by mouth once dailyAtorvastatin 10 mg tablet Discontinued 0 .ROUTE .COMPLEX December 27, 2023 8:40am April 21, 2024 2:04pm TAKE 1 TABLET BY MOUTH EVERY DAY FOR 90 DAYSStart: 01-03-2023 End: 45-54-6924ffui 1 tablet by mouth once daily at bedtimeAtorvastatin 10 mg Tablet Discontinued 10 MG PO Daily at bedtime January 23, 2023 3:06pm December 27, 2023 8:40amcarvedilol 6.25 mg oral tablet (20 sources)alpha-Adrenergic Melvin, beta-Adrenergic BlockerStart: 11-25-2024 take 1 tablet by mouth twice daily at mealtimeStart: 11-25-2024 End: 02-94-0338hmtb 1 tablet by mouth every twelve hoursCarvedilol 6.25 mg tablet Discontinued 6.25 MG PO Every 12 hours 180 90 November 25, 2024 3:19pm November 25, 2024 3:20pmStart: 05-15-2024 End: 97-82-9085mmif 1 tablet by mouth every twelve hoursCarvedilol 12.5 mg tablet Discontinued 12.5 MG PO Every 12 hours 180 90 May 15, 2024 10:35am November 25, 2024 3:19pmStart: 12-05-2023 End: 99-31-7311sjqo 1 tablet by mouth twice daily at mealtimeCarvedilol 6.25 mg tablet Discontinued 0 .ROUTE .COMPLEX 180 December 05, 2023 9:15am May 15, 2024 10:36am TAKE 1 TABLET BY MOUTH TWICE A DAY WITH FOOD FOR 90 DAYSStart: 01-03-2023 End: 55-06-7975qdyj 1 tablet by mouth every twelve hours [...] on above:Take by mouth.Cardura (8 sources)alpha-Adrenergic BlockerStart: 28-86-8149Pqztijt Oral, Daily Start Date: 08/26/19 Status: Orderedfolic acid 1 mg oral tablet (6 sources)Start: 18-29-3771awbt 1 tablet by mouth once dailyMelatonin (20 sources)Start: 51-34-6897Nmvrysycz Once a day (at bedtime) Start Date: 02/20/23 Status: OrderedStart: 01-03-2023 End: 71-93-7735qzbm 1 tablet by mouth at bedtimeMelatonin 3 mg Tablet Discontinued 3 MG PO Bedtime January 03, 2023 12:00am January 09, 2024 9:14am oxybutynin chloride 5 mg oral tablet (12 sources)Cholinergic Muscarinic AntagonistStart: 67-87-1819invc 1 tablet by mouth three times daily as neededoxybutynin 5 mg Tab 5 mg = 1 tab(s), Oral, TID, PRN for urinary discomfort Start Date: 04/12/22 Status: OrderedComment on above: Take by mouth.oxyCODONE (7 sources)Opioid AgonistStart: 15-24-1070sozcfcuwc Oral, Refills(s) 0 Start Date: 05/25/22 Status: Orderedpolyethylene glycol 3350 52242 mg powder for oral solution (20 sources)Osmotic LaxativeStart: 83-10-3597armfldabhbwz glycol (MIRALAX) 17 gram/dose powder Take by mouth. 0 02/20/2023 ActiveStart: 01-03-2023 End: 78-61-7866Pusnfxcobxoz Glycol 3350 (Miralax) 17 gram Powder In Packet Discontinued 17 GM PO Daily as needed for Constipation January 23, 2023 3:06pm January 09, 2024 9:14ampolysaccharide iron complex 150 mg oral capsule (6 sources)Start: 19-58-5799Niwdtwz (19 sources)Start: 77-52-6799tgfpmg 0.5 mg by subcutaneous injection every week Ozempic 0.5 mg, SubCutaneous, qWeek Start Date: 04/12/22 Status: OrderedStart: 03-27-2022 End: 31-59-6194srkemyixavl (OZEMPIC) 0.25 mg or 0.5 mg(2 mg/1.5 mL) pen injector 03/27/2022 12/11/2023 Discontinued (Therapy completed)Start: 48-56-6570ADEAZYC 0.25 mg or 0.5 mg(2 mg/1.5 mL) pen INJECT 0.5MG SUBCUTANEOUSLY WEEKLY 0 03/27/2022 ActiveComment on above:INJECT 0.5MG SUBCUTANEOUSLY WEEKLYVitamin D (7 sources)Start: 00-48-8356Zdhjgbr D International_Unit, Oral, qWeek, Refills(s) 0 Start Date: 05/25/22 Status: Ordered Completed/Discontinued Medications MedicationDrug Class(es)DatesSig (Normalized)Sig (Original)amitriptyline hydrochloride 10 mg oral tablet (20 sources)Tricyclic AntidepressantStart: 09-03-2023 End: 19-34-5690ukrb 1 tablet by mouth once daily at bedtimeAmitriptyline 10 mg tablet Discontinued 0 .ROUTE .COMPLEX 90 September 03, 2023 5:17pm January 09, 2024 9:14am TAKE 1 TABLET BY MOUTH EVERY DAY AT BEDTIMEStart: 01-03-2023 End: 32-89-8400yhsy 1 tablet by mouth once daily at bedtimeAmitriptyline 10 mg tablet Discontinued 10 MG PO Daily at bedtime August 27, 2023 12:00am August 5:17pmapixaban 5 mg oral tablet (20 sources)Factor Xa InhibitorStart: 01-22-2023 End: 17-78-5563daeb 1 tablet by mouth twice dailyApixaban (Eliquis) 5 mg Tablet Discontinued 5 MG PO Twice daily 60 30 January 22, 2023 12:00am 2023 3:22pmazithromycin 250 mg oral tablet (20 sources)Macrolide AntimicrobialStart: 06-20-2024 End: 42-32-8831Cesictkfztwk 250 mg tablet Discontinued 250 MG PO .COMPLEX 6 5 June 20, 2024 1:00am November 17, 2024 8:59am 2 tabs on first day followed by 1 tab on days 2-5Start: 23-73-3480ghvntadexgle (ZITHROMAX) 250 mg tablet Take by mouth as directed. TAKE 2 TABLETS BY MOUTH TODAY, THEN TAKE 1 TABLET DAILY FOR 4 DAYS 0 02/10/2022 ActiveAzithromycin 250 MG as directed Orally Not-Taking/PRN Comment on above:Take by mouth as directed. TAKE 2 TABLETS BY MOUTH TODAY, THEN TAKE 1 TABLET DAILY FOR 4 DAYSbacitracin 0.5 unt/mg topical ointment (20 sources)Start: 01-09-2023 End: 24-47-8444Tgmmkldewn 500 unit/gram Ointment Discontinued 1 APPLIC TOPICAL Twice daily 0 January 23, 2023 12:00am August 27, 2023 12:26pmBacitracin 500 UNIT/GM 1 application Externally twice a day Not-Taking/PRN End: 13-12-9258izuwyyfedw 500 unit/gram packet Apply 1 Application topically in the morning and 1 Application before bedtime. 0 05/30/2023 Discontinued (Therapy completed)Bacitracin 500 UNIT/GM (7 sources)Bacitracin 500 UNIT/GM 1 application Externally twice a day Not-TakingBacitracin 500 UNIT/GM 1 application Externally twice a day Active cefuroxime 500 mg oral tablet (4 sources)Cephalosporin AntibacterialStart: 55-05-8706qcfs 1 tablet by mouth every twelve hourscefUROXime (CEFTIN) 500 mg tablet Take 500 mg by mouth q 12 HR. 0 03/30/2022 ActiveComment on above:Take 500 mg by mouth q 12 HR.Cephalexin (13 sources)Cephalosporin AntibacterialStart: 05-25-2022 End: 85-02-1936xapoxpugzy (KEFLEX ORAL) Take by mouth. 05/25/2022 12/11/2023 Discontinued (Therapy completed)Start: 98-83-8318otqzwwtoyh (KEFLEX ORAL) Take by mouth. 05/25/2022 ActiveStart: 20-71-7557zhplhneldo (KEFLEX ORAL) Take by mouth. 0 05/25/2022 ActiveStart: 50-64-0879Oriqkd Oral Start Date: 05/25/22 Status: OrderedStart: 22-62-8530xbwj 1 capsule by mouth four times daily [...] 500 mg oral tablet (5 sources)Quinolone AntimicrobialStart: 26-31-3561otzrjdxffgmnz HCl (CIPRO) 500 mg tablet Cipro 500 mg Tab See Instructions, Take 1 tab day prior to procedure and 1 tab day of procdure - afterwards, # 2 tab(s), Refills(s) 0, Pharmacy: [facility]/pharmacy #[id number] Start Date: 08/22/19 Status: Ordered 0 08/22/2019 Active Comment on above:Cipro 500 mg Tab See Instructions, Take 1 tab day prior to procedure and 1 tab day of procdure - afterwards, # 2 tab(s), Refills(s) 0, Pharmacy: [facility]/pharmacy #[id number] Start Date: 08/22/19 Status: Orderedcyproheptadine hydrochloride 4 mg oral tablet (20 sources)Start: 09-03-2023 End: 09-46-8699vmfq 1 tablet by mouth once daily at bedtimeCyproheptadine 4 mg tablet Discontinued 0 .ROUTE .COMPLEX September 03, 2023 5:17pm January 09, 2024 9:14am TAKE 1 TABLET BY MOUTH EVERY DAY AT BEDTIMEStart: 01-23-2023 End: 49-75-0287jqxl 1 tablet by mouth once daily at bedtimeCyproheptadine 4 mg Tablet Discontinued 4 MG PO Daily at bedtime January 23, 2023 12:00am Aug 5:17pmdocusate sodium 50 mg / sennosides, fci 8.6 mg oral tablet (15 sources)Start: 01-03-2023 End: 30-23-8349ensr 2 tablets by mouth in the morningsennosides-docusate sodium (SENOKOT-S) 8.6-50 mg Take 2 tablets by mouth in the morning and 2 tablets before bedtime. 0 01/03/2023 05/30/2023 Discontinued (Therapy completed)Start: 01-03-2023 End: 67-59-8527pfzp 2 tablets by mouth twice dailySennosides-Docusate Sodium 8.6-50 mg Tablet Discontinued 2 TAB-CAP PO Twice daily January 03, 2023 12:00am January 23, 2023 3:07pmnystatin 354584 unt/ml / triamcinolone acetonide 1 mg/ml topical cream (4 sources)Polyene Antifungal, CorticosteroidStart: 80-35-0541ibgqczrg- triamcinolone (MYCOLOG II) cream Apply to affected area twice daily. APPLY TO AFFECTED AREA 0 04/05/2022 ActiveComment on above:Apply to affected area twice daily. APPLY TO AFFECTED AREAondansetron 8 mg disintegrating oral tablet (20 sources)Serotonin-3 Receptor AntagonistStart: 08-21-2023 End: 25-96-4205cqgw 1 tablet by mouth every six hours as needed for nausea and vomitingOndansetron 8 mg tablet,disintegrating Discontinued 8 MG PO Every 6 hours as needed for Nausea And Vomiting 120 90 May 15, 2024 10:36am May 22, 2024 10:20amStart: 08-21-2023 End: 65-02-2337upav 2 tablets by mouth every six hours as needed for nausea and vomitingOndansetron 4 mg tablet,disintegrating Discontinued 8 MG PO Every 6 hours as needed for Nausea And Vomiting August 21, 2023 10:30am August 21, 2023 1:18pmStart: 08-21-2023 End: 55-43-8650jncs 8 mg by mouth every six hoursOndansetron Discontinued 8 MG PO Every 6 hours August 21, 2023 10:30am August 21, 2023 1:18pmStart: 06-93-2724bccnlcyqozz 4 mg Dis Tab Start Date: 02/20/23 Status: OrderedStart: 95-02-2090zrlv 2 tablets by mouth every twelve hours as needed for nausea ondansetron ODT (ZOFRAN ODT) 4 mg disintegrating tablet Dissolve 2 tablets (8 mg total) on tongue every 12 (twelve) hours as needed for nausea. 01/23/2023 ActiveStart: 01-23-2023 End: 25-40-7308atcl 1 tablet by mouth every six hours [...] 90 days Not-Taking/PRNSemaglutide (14 sources)Start: 01-03-2023 End: 56-95-2776Pnqezrvsymf (Ozempic) 0.25 mg or 0.5 mg (2 mg/3 mL) Pen Injector Discontinued 0.5 MG SUBCUT every week January 02, 2023 11:00pm August 27, 2023 11:27amStart: 01-03-2023 End: 48-42-4840Pervhvncxja (Ozempic) 0.25 mg or 0.5 mg (2 mg/3 mL) Pen Injector Discontinued 0.5 MG SUBCUT every week January 03, 2023 12:00am August 27, 2023 12:27pmStart: 79-21-3237Qpnzeuwirjy (Ozempic) 0.25 mg or 0.5 mg (2 mg/3 mL) Pen Injector Active 0.5 MG SUBCUT every week January 02, 2023 11:00pmStart: 35-29-2264Mviebumtwkq (Ozempic) 0.25 mg or 0.5 mg (2 mg/3 mL) Pen Injector Active 0.5 MG SUBCUT every week January 03, 2023 12:00amtamsulosin hydrochloride 0.4 mg oral capsule (20 sources)alpha-Adrenergic BlockerStart: 12-05-2023 End: 58-55-1320ofzu 1 capsule by mouth once dailyTamsulosin 0.4 mg capsule Discontinued 0 .ROUTE .COMPLEX 90 December 05, 2023 9:15am January 09, 2024 9:14am TAKE 1 CAPSULE BY MOUTH EVERY DAY FOR 90 DAYSStart: 01-23-2023 End: 43-50-0718trit 1 capsule by mouth once dailyTamsulosin 0.4 mg capsule Discontinued 0.4 MG PO Daily December 05, 2023 12:00am December 05, 2023 9:16am Start: 83-97-4650bsjw 1 mg by mouth once dailytamsulosin mg, Oral, Daily Start Date: 05/25/22 Status: OrderedtiZANidine 4 mg oral tablet (5 sources)Central alpha-2 Adrenergic AgonistStart: 58-97-2697pioe 1 tablet by mouth at bedtime as [...] sources)Serotonin and Norepinephrine Reuptake InhibitorStart: 09-03-2023 End: 77-98-4587otfs 1 tablet by mouth once daily at mealtimeVenlafaxine 37.5 mg tablet Discontinued 0 .ROUTE .COMPLEX 90 September 03, 2023 5:17pm January 09, 2024 9:14am TAKE 1 TABLET BY MOUTH EVERY DAY WITH FOOD FOR 30 DAYSStart: 02-20-2023 venlafaxine 37.5 mg Tab Refills(s) 0 Start Date: 02/20/23 Status: OrderedStart: 01-23-2023 End: 91-79-4496qrgm 1 capsule by mouth once dailyVenlafaxine 37.5 [...] (20 sources)Cerebellar infarction; Translations: [Cerebral infarction, unspecified]Onset: 379992-65-8141PefaforPrbghpb on above:Problem List clean-up per request of Phys. EHR CmteAdministrative/social admission (17 sources)Other reduced mobility; Translations: [Impaired mobility and activities of daily living]Onset: 637686-01-2348XwvefqheDdixqrf on above: Problem List clean-up per request of Phys. EHR CmteAnxiety disorders (1 source)Anxiety disorder, unspecified; Translations: [ANXIETY DISORDER UNSPECIFIED]Onset: 89-91-1314XeoqnqeKipnar; peripheral; and visceral artery aneurysms (7 sources)Dissection of vertebral artery; Translations: [Dissection of vertebral artery]Onset: 122337-22-0728FycqzcoCrhxfwto of urinary tract (20 sources)Kidney stone; Translations: [Calculus of kidney]Onset: 04-11-2022 EpisodicCardiac dysrhythmias (20 sources)Palpitations; Translations: [Tachycardia]Onset: 81-26-3309Cdvkurkg Comment on above:Problem List clean-up per request of Phys. EHR CmteConditions associated with dizziness or vertigo (15 sources)Dizziness; Translations: [Dizziness and giddiness]Onset: 01-03-2023 84-83-4362NwctdfbnVdmlokh on above:Problem List clean-up per request of Phys. EHR CmteDeficiency and other anemia (10 sources)Anemia; Translations: [Anemia, unspecified]52-03-9640Hhuqjipa Deficiency and other anemia (8 sources)Pernicious anemia; Translations: [Vitamin B12 deficiency anemia due to intrinsic factor deficiency]10-05-4664UzsyhjnuLikxjadi mellitus with complications (20 sources)Type 2 diabetes mellitus; Translations: [Type 2 diabetes mellitus with hyperglycemia]ChronicDiabetes mellitus without complication (1 source)Type 2 diabetes mellitus without complications; Translations: [TYPE 2 DM WITHOUT COMPLICATIONS]Onset: 11-00-0604VhrfwsqIwllgkuh mellitus without complication (20 sources)Prediabetes; Translations: [Prediabetes]Onset: 17-22-9312Iucknnzu Disorders of lipid metabolism (20 sources)Hypercholesterolemia; Translations: [Pure hypercholesterolemia, unspecified]ChronicEssential hypertension (20 sources)Hypertensive disorder; Translations: [Essential hypertension]Onset: 240911-19-4283DbgvpqlMlyaqez on above:Problem List clean-up per request of Phys. EHR CmteGenitourinary symptoms and ill-defined conditions (7 sources)Presence of urogenital implants; Translations: [Other postprocedural status]Onset: 34-57-8564LejkugeZnmjyaovvncbs symptoms and ill-defined conditions (20 sources)Abnormal urinalysis; Translations: [Unspecified abnormal findings in urine]Onset: 86-14-3868YzgzedbkMurhsalxfzh of prostate (20 sources)Lower urinary tract symptoms due to benign prostatic hypertrophy; Translations: [Benign prostatic hyperplasia with lower urinary tract symptoms] ChronicInflammatory conditions of male genital organs (20 sources)Acute prostatitis; Translations: [Acute prostatitis]EpisodicLate effects of cerebrovascular disease (3 sources)Sequela of cerebrovascular accident; Translations: [Unspecified sequelae of cerebral infarction]Onset: 925688-41-7473IltragyTpym disorders (20 sources)Mild major depression, single episode; Translations: [Major depressive disorder, single episode, mild]ChronicMycoses (20 sources)Candidal balanitis; Translations: [Candidal balanitis]EpisodicNausea and vomiting (17 sources)Nausea; Translations: [Nausea]Onset: 398851-19-6074Kzdubxrm Comment on above:Problem List clean-up per request of Phys. EHR CmteNutritional deficiencies (4 sources)Cobalamin deficiency; Translations: [Deficiency of other specified B group vitamins]92-15-3779JonxmkenPyvwbujoq or stenosis of precerebral arteries (20 sources)Stenosis of left vertebral artery; Translations: [Occlusion and stenosis of left vertebral artery]ChronicOpen wounds of head; neck; and trunk (14 sources)Laceration - injury; Translations: [Laceration]60-21-7315Apewzeoz Other aftercare (1 source)Other superintendent container terminal (current) drug therapy; Translations: [OTH RESIDENTIAL CURRENT DRUG THERAPY]Onset: 77-80-9116KjeljvvmHnsam and ill-defined cerebrovascular disease (14 sources)Cerebral atherosclerosis; Translations: [Cerebral atherosclerosis] 61-83-1376RhfszhsJgano and ill-defined cerebrovascular disease (4 sources)Cerebral atherosclerosis; Translations: [Cerebral atherosclerosis] 94-04-6898NjuzarfSftee connective tissue disease (20 sources)Lateral epicondylitis; Translations: [Lateral epicondylitis, right elbow]EpisodicOther connective tissue disease (1 source)Muscle weakness (generalized)EpisodicOther diseases of bladder and urethra (5 sources)Spasm of bladder; Translations: [Other specified disorders of bladder]Onset: 01-94-2251LnxhrzmWivcm diseases of bladder and urethra (1 source)Other specified disorders of bladder; Translations: [Bladder spasms] Onset: 18-35-3072CcxczjjVcivr diseases of bladder and urethra (11 sources)Urethral yptvtimgs61-31-1827NpkmnattRnxmb gastrointestinal disorders (5 sources)History of bypass of stomach; Translations: [Bariatric surgery status]Onset: 07-84-0625KwyjjykaYcevq gastrointestinal disorders (4 sources)Bariatric surgery status; Translations: [History of gastric bypass] Onset: 52-20-4239GlambivfRnnmh gastrointestinal disorders (20 sources)History of bariatric surgical procedure; Translations: [Bariatric surgery status]EpisodicOther lower respiratory disease (1 source)Personal history of pneumonia (recurrent); Translations: [PERSONAL HX OF PNEUMONIA RECURRENT]Onset: 59-51-4575ZjkxjiyoAxjju lower respiratory disease (20 sources)Cough; Translations: [Cough]EpisodicOther nervous system disorders (14 sources)Hydrocephalus; Translations: [Hydrocephalus, unspecified]01-04-2023 ChronicComment on above:Problem List clean-up per request of Phys. EHR CmteOther nervous system disorders (16 sources)Ventriculoperitoneal shunt in situ; Translations: [Presence of cerebrospinal fluid drainage device]04-78-4156UtrcbyfMvjexwt on above:Problem List clean-up per request of Phys. EHR CmteOther nervous system disorders (3 sources)Hydrocephalus, unspecified; Translations: [Obstructive hydrocephalus] Onset: 241741-68-9644UbleheoJnjdf nervous system disorders (3 sources)Presence of cerebrospinal fluid drainage device; Translations: [Presence of cerebrospinal fluid drainage device]Onset: 752528-57-2031 ChronicOther non-traumatic joint disorders (20 sources)Arthralgia of the pelvic region and thigh; Translations: [Pain in left hip]EpisodicOther nutritional; endocrine; and metabolic disorders (8 sources)Body mass index 40+ - severely obese; Translations: [Body mass index (BMI) 40.0-44.9, adult]Onset: 90-57-4792BsnypwmNhwqx nutritional; endocrine; and metabolic disorders (3 sources)Body mass index (BMI) 40.0-44.9, adult; Translations: [BMI 40.0-44.9, adult ([facility])]Onset: 36-87-3226HiuzesuAlvri nutritional; endocrine; and metabolic disorders (6 sources)Obesity, unspecified; Translations: [Obesity, unspecified]Onset: 856105-03-5253BsdfuizWyfxe nutritional; endocrine; and metabolic disorders (2 sources)Morbid (severe) obesity due to excess calories; Translations: [MORBID SEVERE OBES D/T EXCESS SHANT]Onset: 93-07-7497PanddypQqxmr nutritional; endocrine; and metabolic disorders (20 sources)Body mass index 30+ - obesity; Translations: [Obesity, unspecified] 09-99-0272XlevnrbKkedvyk on above:Problem List clean-up per request of Phys. EHR CmteOther nutritional; endocrine; and metabolic disorders (20 sources)Severe obesity; Translations: [Morbid (severe) obesity due to excess calories]ChronicOther nutritional; endocrine; and metabolic disorders (2 sources)Obesity caused by energy imbalance; Translations: [Morbid (severe) obesity due to excess calories]77-68-5640LhdewpvFebcc nutritional; endocrine; and metabolic disorders (13 sources)Obesity; Translations: [Obesity, unspecified]54-57-0326YbqomidNabtm screening for suspected conditions (not mental disorders or infectious disease) (20 sources)Encounter for screening for malignant neoplasm of prostate; Translations: [Other abnormal findings on diagnostic imaging of central nervous system]Onset: 312635-03-5958IolgeobnYzhbnnv on above:PSA: 1.73 - 11/2020, 1.60 - 01/2022, 1.17 - 07/2023Other upper respiratory infections (20 sources)Bacterial sinusitis; Translations: [Chronic sinusitis, unspecified] ChronicOther upper respiratory infections (1 source)Acute sinusitis, unspecified; Translations: [Acute sinusitis, unspecified]30-12-7881FiwuslncZiytteiqx; thrombophlebitis and thromboembolism (20 sources)Thrombophlebitis of superficial veins of lower extremity; Translations: [Phlebitis and thrombophlebitis of superficial vessels of right lower extremity]Onset: 158308-40-6697WreuboczJnxbsnu on above:Problem List clean-up per request of Phys. EHR CmteResidual codes; unclassified (5 sources)Family history of renal stone; Translations: [Family history of disorders of kidney and ureter]Onset: 31-42-1306MljdxystCcmbjyhz codes; unclassified (1 source)Family history of disorders of kidney and ureter; Translations: [Family history of nephrolithiasis]Onset: 87-48-1841JoksfnqhYsnsafur codes; unclassified (20 sources)Tobacco user; Translations: [Tobacco use]EpisodicResidual codes; unclassified (1 source)H/O: Disorder; Translations: [Personal history of other specified conditions]Onset: 58-35-8572EzziseyyVstdngtyvwb; intervertebral disc disorders; other back problems (20 sources)Other spondylosis with radiculopathy, lumbosacral region; Translations: [Cervical spondylosis without myelopathy]Onset: 10-57-2754Oycgurg Unclassified (4 sources)CONTACT W/AND (SUSP) EXPOS COVID-19; Translations: [CONTACT W/AND (SUSP) EXPOS COVID-19]Onset: 30-68-2285Iujgmeffetsv (1 source)Unspecified sequelae of cerebral infarction; Translations: [Unspecified sequelae of cerebral infarction]Onset: 19-80-5963Lrvdmbvlqctw (1 source)Laceration without foreign body of lip, initial encounter; Translations: [Laceration without foreign body of lip, initial encounter]Onset: 10-82-5061Iujafvhdhdzo (1 source)Ureteric stent presentOnset: [id number] on above: Outside Source Comment: Last Assessment & Plan: Assessment: Right placed 03/2022Unclassified (1 source)Cerebrospinal fluid leak, unspecified; Translations: [Cerebrospinal fluid leak, unspecified]Onset: 88-44-9367Rqckkawdpuky (1 source)Other disorders of meninges, not elsewhere classified; Translations: [Other disorders of meninges, not elsewhere classified]Onset: 18-65-5071Pahzfas tract infections (9 sources)Urinary tract infectious disease; Translations: [Urinary tract infection, site not specified]Onset: 40-84-4599OxeylnpsIwfpkpci veins of lower extremity (20 sources)Pain co-occurrent and due to varicose veins of bilateral legs; Translations: [Varicose veins of bilateral lower extremities with pain]Episodic Viral infection (13 sources)Disease caused by 2019-nCoV; Translations: [COVID-19]08-27-2023 Episodic Past or Other Problems Problem ClassificationProblemDateDocumented DateEpisodic/ChronicAcute and unspecified renal failure (1 source)Acute kidney failure, unspecified; Translations: [ACUTE KIDNEY FAILURE UNSPECIFIED]Onset: 69-53-5359MwndvbsqEiyd disorders (7 sources)Mood disordersOnset: 02-21-2023 Resolved: Other connective tissue disease (1 source)Pain in left leg; Translations: [PAIN IN LEFT LEG]Onset: 01-27-2022 EpisodicOther nervous system disorders (8 sources)Cerebrospinal fluid leak; Translations: [CSF leak]Onset: 02-07-2023 39-28-9040AbnwlzroKszod nervous system disorders (2 sources)Pseudomeningocele; 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]12-05-2023 EpisodicResidual codes; unclassified (1 source)Other specified health status; Translations: [Other specified health status]Onset: 46-91-6021JbfjcnmaChsottwb codes; unclassified (1 source)Pain, unspecified; Translations: [Pain, unspecified]Onset: 05-23-2023 EpisodicSepticemia (except in labor) (3 sources)Sepsis, unspecified organism; Translations: [Other Gram-negative sepsis]Onset: 25-08-0407TkbzwpygWucqvamfmuli (1 source)CONTACT W/AND (SUSP) EXPOS COVID-19; Translations: [CONTACT W/AND (SUSP) EXPOS COVID-19]Onset: 36-35-0738Ppkei infection (20 sources)Disease caused by 2019-nCoV; Translations: [COVID-19] Results Test NameValueInterpretationReference RangeFacilityBasophils Auto (Bld) [#/Vol] Ordered By: Awais Garcia on 66-98-9502Qjxutfwfb (Bld) [#/Vol]0.0 10 3/uL0.0-0.1 [facility] CenterBasophils/100 WBC Auto (Bld)Ordered By: Awais Garcia on 45-63-9637Afjzdesvx/100 WBC (Bld)0.3 %0.2-2.0[facility] CenterEosinophils/100 WBC Auto (Bld)Ordered By: Awais Garcia on 37-89-6462Irmiranelmt/100 WBC (Bld)1.0 %0.9-7.0[facility] Erythrocyte distribution width Auto (RBC) [Ratio]Ordered By: Awais Garcia on 10-76-9452Epbftmlehar distribution width (RBC) [Ratio]14.9 %11.0-15.0[facility] CenterHematocrit Auto (Bld) [Volume fraction]Ordered By: Awais Garcia on 60-36-4421Xdhdinneoe (Bld) [Volume fraction]41.4 %Low42.0-54.0 [facility] CenterHemoglobin [Mass/volume] in BloodOrdered By: Awais Garcia on 19-01-1559Kgstbgvsnh (Bld) [Mass/Vol]12.6 g/dLLow14.0-18.0 [facility] CenterIron binding capacity [Mass/volume] in Serum or PlasmaOrdered By: Awais Garcia on 02-60-9418Nubp binding capacity [Mass/Vol] 316.0 ug/dL250.0-450.0[facility] CenterIron saturation [Mass Fraction] in Serum or PlasmaOrdered By: Awais Garcia on 43-70-7869Cxlo saturation [Mass fraction]7.6 %[facility] CenterLaboratory - Chemistry and Chemistry - challengeOrdered By: Awais Garcia on 12-01-2024 Cobalamin (Vitamin B12) [Mass/Vol]150 pg/cGVjlouhev467-7509JuozuppylWexner Medical CenterComment on above:Performed at: - [address] [id number] Director: Dusty Donaldson PhD, Phone: [phone] Ferritin [Mass/Vol]9.0 ng/mLLow26.0-388.0[facility] CenterIron [Mass/Vol]24.0 ug/dLLow65.0-175.0[facility] CenterLaboratory - Hematology and Cell countsOrdered By: Awais Garcia on 18-88-7498Nkenqsci granulocytes/100 WBC (Bld)0.3 %0.0-0.5FLakeHealth Beachwood [facility] Center Leukocytes [#/volume] corrected for nucleated erythrocytes in Blood by Automated counOrdered By: Awais Garcia on 81-18-5797PHE corrected for nucl RBC Auto (Bld) [#/Vol]7.9 10 3/uL4.0-11.0[facility] CenterLymphocytes Auto (Bld) [#/Vol]Ordered By: Awais Garcia on 23-81-7738Klbwyjgplot (Bld) [#/Vol]2.3 10 3/uL1.2-3.8[facility] CenterLymphocytes/100 WBC Auto (Bld)Ordered By: Awais Garcia on 06-82-3573Jshyaavjenj/100 WBC (Bld)28.7 % 20.5-60.0[facility] Auto (RBC) [Entitic mass]Ordered By: Awais Garcia on 74-84-7159LGX (RBC) [Entitic mass]24.0 pgLow25.9-34.0 [facility] CenterMCHC Auto (RBC) [Mass/Vol]Ordered By: Awais Garcia on 70-08-6237MQMU (RBC) [Mass/Vol]30.4 g/dL29.9-35.2FLakeHealth Beachwood Medical CenterMCV Auto (RBC) [Entitic vol]Ordered By: Awais Garcia on 68-44-6960JOF (RBC) [Entitic vol]79.0 fLLow80.0-94.0[facility] CenterMonocytes Auto (Bld) [#/Vol]Ordered By: Awais Garcia on 12-01-2024 Monocytes (Bld) [#/Vol]0.6 10 3/uL0.3-0.8[facility] Monocytes/100 WBC Auto (Bld)Ordered By: Awais Garcia on 59-67-8842Ykiagiapn/100 WBC (Bld)7.1 %1.7-12.0[facility] CenterNeutrophils Auto (Bld) [#/Vol]Ordered By: Awais Garcia on 22-00-4585Efqxmefucei (Bld) [#/Vol]4.9 10 3/uL1.4-6.5FLakeHealth Beachwood Medical CenterNeutrophils/100 WBC Auto (Bld) Ordered By: Awais Garcia on 29-75-3567Yrbrafejgvl/100 WBC (Bld)62.6 %43.0-75.0 [facility] CenterNo Panel InformationOrdered By: Awais Garcia on 13-43-5678Qoafwiorohy # (Auto)0.1 10 3/uL0.0-0.7FLakeHealth Beachwood Medical CenterFolate6.40 ng/mLLow8.60-58.90[facility] CenterImmature Granulocyte # (Auto)0.02 10 3/uL0.00-0.03[facility] Platelet mean volume Auto (Bld) [Entitic vol]Ordered By: Awais Garcia on 54-14-0778Wcnxlhpn mean volume (Bld) [Entitic vol]9.7 fL9.5-13.5FLakeHealth Beachwood Medical CenterPlatelets Auto (Bld) [#/Vol]Ordered By: Awais Garcia on 27-52-9354Fhwwujnxr (Bld) [#/Vol]296 10 3/tO664-726YtyyaepppWexner Medical CenterRBC Auto (Bld) [#/Vol]Ordered By: Awais Garcia on 69-80-2083INF (Bld) [#/Vol]5.24 10 6/uL4.70-6.10[facility] CenterReticulocytes/100 RBC Auto (Bld)Ordered By: Awais Garcia on 38-14-0137Cceegjgdtzmtl/100 RBC (Bld) 1.10 %0.60-3.10[facility] CenterBasophils Auto (Bld) [#/Vol]on 47-72-3414Uqfthnjop (Bld) [#/Vol]0.0 10 3/uL0.0-0.1FLakeHealth Beachwood Medical CenterBasophils/100 WBC Auto (Bld)on 55-52-9329Offkwggik/100 WBC (Bld)0.3 % 0.2-2.0[facility] CenterCholesterol in LDL Calc [Mass/Vol]on 61-66-0240Gjwjetrufsm in LDL [Mass/Vol]35.8 mg/dLWexner Medical CenterComment on above:<100 mg/dl ADFUNTK934-095 mg/dl NEAR OR ABOVE JCDISHU870- 159 mg/dl BORDERLINE JPNN282-732 mg/dl HIGH>190 mg/dl VERY HIGHCholesterol in VLDL Calc [Mass/Vol]on 81-40-8408Hpngqvkxmvy in VLDL [Mass/Vol]12.2 mg/dL [facility] CenterEosinophils/100 WBC Auto (Bld)on 11-24-2024 Eosinophils/100 WBC (Bld)1.3 %0.9-7.0[facility] Erythrocyte distribution width Auto (RBC) [Ratio]on 06-88-9353Mhfnmmmumcs distribution width (RBC) [Ratio]15.2 %High11.0-15.0[facility] CenterEstimated glomerular filtration rate (GFR) non- Americanon 76-47-0122UBE/1.73 sq M.predicted among non-blacks MDRD (S/P/Bld) [Vol rate/Area]mL/min/{1.73_m2}>=60 mL/min/1.73m 2FLakeHealth Beachwood Medical Center Globulin Calc (S) [Mass/Vol]on 83-78-5975Tolzxpqg (S) [Mass/Vol]4.2 g/dL [facility] CenterGlucose mean value [Mass/volume] in Blood Estimated from glycated hemoglobinon 68-26-0543Xzmulue glucose Estimated from glycated hemoglobin (Bld) [Mass/Vol]157 mg/dLWexner Medical Center Hematocrit Auto (Bld) [Volume fraction]on 87-51-5101Rwegmsplqu (Bld) [Volume fraction]41.8 %Low42.0-54.0[facility] CenterHemoglobin A1c percentageon 35-23-2837IzU6j (Bld) [Mass fraction]7.1 %High4.5-6.2FLakeHealth Beachwood Medical CenterComment on above:ADA RECOMMENDED LIMIT 4.0 - 6.0ADA THERAPEUTIC TARGET < 7.0ACTION SUGGESTED> 7.0Hemoglobin [Mass/volume] in Bloodon 94-83-0942Pkeriheauu (Bld) [Mass/Vol]12.9 g/dLLow14.0-18.0[facility] CenterLaboratory - Chemistry and Chemistry - challengeon 11-24-2024 Albumin [Mass/Vol]3.0 g/dLLow3.4-5.0[facility] CenterALP [Catalytic activity/Vol]106 U/L94-684SqjdorjcrWexner Medical CenterALT [Catalytic activity/Vol]26 U/F43-69SaczctmngWexner Medical CenterAST [Catalytic activity/Vol]18 U/W40-42FiijlrhyfWexner Medical CenterBilirubin [Mass/Vol]0.8 mg/dL0.2-1.0[facility] CenterCalcium [Mass/Vol]8.6 mg/dL8.5-10.1FLakeHealth Beachwood Medical CenterChloride [Moles/Vol]103 mmol/L 98-107[facility] CenterCholesterol [Mass/Vol]95 mg/dL<=200 [facility] CenterCholesterol in HDL [Mass/Vol]47 mg/dL40-60 [facility] CenterComment on above:> or =60 mg/dl - LOW CARDIOVASCULAR RISK<40 mg/dl - HIGH CARDIOVASCULAR RISKCO2 [Moles/Vol]25.7 mmol/L21.0-32.0[facility] CenterCreatinine [Mass/Vol]0.82 mg/dL 0.70-1.30[facility] CenterGFR/1.73 sq M.predicted MDRD (S/P/Bld) [Vol rate/Area]mL/min/{1.73_m2}>=60 mL/min/1.73m 2FLakeHealth Beachwood Medical CenterGlucose [Mass/Vol]140 mg/eHJrrr42-649FxtbxgltsWexner Medical Center Potassium [Moles/Vol]4.1 mmol/L3.5-5.1FLakeHealth Beachwood Medical CenterProtein [Mass/Vol]7.2 g/dL6.4-8.2FAdams County Regional Medical Centerodium [Moles/Vol]139 mmol/E747-422JzwbhbdnmWexner Medical CenterTriglyceride [Mass/Vol]61 mg/dL <=150[facility] CenterTSH Qn2.780 m[IU]/L0.358-3.740[facility] CenterUrea nitrogen [Mass/Vol]17.0 mg/dL7.0-18.0[facility] CenterUrea nitrogen/Creatinine [Mass ratio]20.7 mg/mgFirelands Regional Medical CenterLaboratory - Hematology and Cell countson 11-24-2024 Immature granulocytes/100 WBC (Bld)0.3 %0.0-0.5FLakeHealth Beachwood [facility] Center Leukocytes [#/volume] corrected for nucleated erythrocytes in Blood by Automated counon 55-73-9872GIL corrected for nucl RBC Auto (Bld) [#/Vol]7.7 10 3/uL 4.0-11.0[facility] CenterLymphocytes Auto (Bld) [#/Vol]on 37-04-4611Ypnjogxzesv (Bld) [#/Vol]2.0 10 3/uL1.2-3.8[facility] CenterLymphocytes/100 WBC Auto (Bld)on 06-33-7874Wmybgrasimt/100 WBC (Bld)26.5 % 20.5-60.0[facility] HospitalH Auto (RBC) [Entitic mass]on 02-09-4621IBL (RBC) [Entitic mass]24.1 pgLow25.9-34.0[facility] CenterMCHC Auto (RBC) [Mass/Vol]on 85-00-7759PPUP (RBC) [Mass/Vol]30.9 g/dL 29.9-35.2FLakeHealth Beachwood Medical CenterMCV Auto (RBC) [Entitic vol]on 44-56-5079GDW (RBC) [Entitic vol]78.1 fLLow80.0-94.0[facility] CenterMonocytes Auto (Bld) [#/Vol]on 60-81-7982Thhirvimx (Bld) [#/Vol]0.6 10 3/uL0.3-0.8[facility] CenterMonocytes/100 WBC Auto (Bld)on 96-26-4438Iaxmkxlod/100 WBC (Bld)7.3 %1.7-12.0[facility] Neutrophils Auto (Bld) [#/Vol]on 91-51-2601Pidxxqenydn (Bld) [#/Vol]5.0 10 3/uL 1.4-6.5FLakeHealth Beachwood Medical CenterNeutrophils/100 WBC Auto (Bld)on 99-54-8100Xoxnqhwtwsp/100 WBC (Bld)64.3 %43.0-75.0[facility] CenterNo Panel Informationon 48-60-2473Dpoozwfiyaz # (Auto)0.1 10 3/uL0.0-0.7 [facility] CenterImmature Granulocyte # (Auto)0.02 10 3/uL 0.00-0.03[facility] CenterProstate Specific Antigen Screen1.20 ng/mL<=4.00[facility] CenterPlatelet mean volume Auto (Bld) [Entitic vol]on 74-97-6279Bjcbteww mean volume (Bld) [Entitic vol]9.8 fL9.5-13.5 [facility] CenterPlatelets Auto (Bld) [#/Vol]on 11-24-2024 Platelets (Bld) [#/Vol]329 10 3/vX166-754EwezezzgnWexner Medical CenterRBC Auto (Bld) [#/Vol]on 61-16-2609FGH (Bld) [#/Vol]5.35 10 6/uL4.70-6.10[facility] Mary Hospitalerum or plasma albumin/globulin mass ratioon 11-24-2024 Albumin/Globulin [Mass ratio]0.7 {ratio}[facility]. Mary Hospitalerum or plasma anion gap determinationon 00-73-6258Ldvyf gap [Moles/Vol]14.4 mmol/L [facility] Hospitalerum or plasma total cholesterol/high density lipoprotein (HDL) cholesterol mass catarina 90-84-2202Mxhvozuwnlq.total/Cholesterol in HDL [Mass ratio]2.0 {ratio}[facility] CenterComment on above:3.3 - 4.4 LOW RISK4.4 - 7.1 AVERAGE RISK7.1 - 11.0 MODERATE RISK>11.0 HIGH RISKProvider Letteron 22-69-0630Ykxbgspp LetterProvider Letter November 06, 2024 [address] [place] [id number] : 1970 Dear Mr. Taras Hayward, We [...] person upon arrival. Sincerely, [facility] [place] [address] ext.3 NoKettering Health Preble Urineon 78-51-5880Rklytsow identified Cx Nom (U)Microbiology PROCEDURE: Urine Culture [...] Locations R1: This test was performed at: [facility], [address] [place] [address], [facility] , , XoojnxCedzucPremier Health Miami Valley HospitalComment on above:Performed By: #### [id number] #### [facility] [address] [place], [place] [address]Urology Office/Clinic Noteon 95-86-6912Qpvipuc Office/Clinic NoteUrology Office/Clinic Note Chief Complaint 6 [...] Urnls Dip Stick Auto w/o Microscopy POC 29751 US Renal 2. History of UTI (Z87.440: Personal history of urinary (tract) infections) UCx:02/20/23 - >100k Klebsiella. Tx'd w/ Bactrim. TODAY: UA +nitrites. Pt is asx. Will send for cx. If shows worrisome org or stone- former, will treat. Otherwise can monitor. Ordered: Urine Culture Urnls Dip Stick Auto w/o Microscopy POC 49805 3. History of urinary retention (Z87.898: Personal [...] Contact Information MARQUISE PAGE, DONNA Hurt, URL [address] [place] [address] Additional Instructions: Follow up in 6 mos w KUB Renal US Patient Education Acute Urinary Retention, Male Kidney Stones, Bvjc-mi-Ahdk I, Kathrine Reed, personally scribed for JOSE MARTIN Deosuza on 05/15/2024 15:44:03. . Documentation recorded by [...] 15:03:00) Nitrite Urine Dipstick: (more content not included)...[facility] HospitalComment on above:Result Comment: Electronically Signed By: DONNA RIVERA PA-C\.br\Date and Time Signed: 05/15/2416:25 EST\.br\Electronically Co- Signed By: Kathrine Reed\.br\Date and Time Co-Signed: 05/15/24 15:44 EST Estimated glomerular filtration rate (GFR) non- Americanon 10-19-2023 GFR/1.73 sq M.predicted among non-blacks MDRD (S/P/Bld) [Vol rate/Area] mL/min/{1.73_m2}>=60[facility] CenterLaboratory - Chemistry and Chemistry - challengeon 42-44-8891Uhlbyho [Mass/Vol]9.0 mg/dL8.5-10.1FLakeHealth Beachwood Medical CenterChloride [Moles/Vol]104 mmol/N35-988LwcjcyuyrWexner Medical CenterCO2 [Moles/Vol]27.9 mmol/L21.0-32.0[facility] CenterCreatinine [Mass/Vol]0.83 mg/dL0.70-1.30[facility] GFR/1.73 sq M.predicted MDRD (S/P/Bld) [Vol rate/Area]mL/min/{1.73_m2}>=[address] [facility] Hospitalodium [Moles/Vol]141 mmol/B943-618ZtgbwlwktWexner Medical CenterUrate [Mass/Vol]3.8 mg/dL3.5-7.2FLakeHealth Beachwood Medical CenterUrea nitrogen [Mass/Vol]19.0 mg/dL7.0-18.0[facility] CenterNo Panel Informationon 04-54-6137Kyyuhuyykgy Hormone (Intact)55 pg/aK81-90UnvqwzbvdWexner Medical CenterComment on above:Performed at: - [facility] [address] [place], [place] [id number] Director: Dusty Donaldson PhD, Phone: [phone] Level3.6 mg/dL2.6-4.7FLakeHealth Beachwood Medical CenterUS venous duplex LE RTon 54-98-1353HD venous duplex LE RT [facility] [place] [address] Ultrasound Report Signed Patient: Taras Hayward MR#: [id number] 56 : 1970 Acct:[id number] Age/Sex: 52 / M ADM Date: 01/03/23 Loc: Room: [address] [place] [address] Type: ADM IN Attending Dr: Srinivas Patricia [...] 1700 Dictated By: Gerardo Miranda MD 01/23/23 4621 Signed By: 08/15/23 1700NormalWexner Medical CenterAutomated erythrocytes count in urine sediment (number/area)Ordered By: Tisha Cardona on 87-74-6365RZW Auto (Urine sed) [#/Area]20-49 [HPF]0-4FLakeHealth Beachwood Medical Center Automated leukocytes count in urine sediment (number/area)Ordered By: Tisha Cardona on 43-80-2585RXA Auto (Urine sed) [#/Area]5-9 [HPF]0-4FLakeHealth Beachwood Medical CenterAutomated urine sediment calcium oxalate crystal count by microscopy (number/high powOrdered By: Tisha Cardona on 60-20-7883Gtowima oxalate crystals LM.HPF (Urine sed) [#/Area]Rare [HPF][facility] CenterBasic Metabolic Panelon 16-28-8203Iartb gap [Moles/Vol]10.6 mmol/LNormal 6.0-15.0[facility] CenterComment on above:Performed By: #### BMP, CBC ####[address] [address] USACalcium [Mass/Vol]9.3 mg/dLNormal8.6-10.3FLakeHealth Beachwood Medical Center Comment on above:Performed By: #### BMP, CBC ####[address] [place] [address] USAChloride [Moles/Vol]98 mmol/LNormal 98-107[facility] CenterComment on above:Performed By: #### BMP, CBC ####[address] [address] USACO2 [Moles/Vol]29.2 mmol/MRnszpf05.0-31.0[facility] CenterComment on above:Performed By: #### BMP, CBC ####[address] [address] USACreatinine [Mass/Vol]1.04 mg/dLNormal0.70-1.30 [facility] CenterComment on above:Performed By: #### BMP, CBC ####[address] [address] [place] Creatinine Clr Calc Aswhforb775.71NoChillicothe VA Medical CenterComment on above:Result Comment: PERFORMED BY: [facility] [address] [id number] PATHOLOGIST LIGHT ADJUSTER DEVANG LEMONS M.D.Performed By: #### BMP, CBC ####[address] [place] [address] USAGFR/1.73 sq M.predicted MDRD (S/P/Bld) [Vol rate/Area]mL/min/{1.73_m2}NormalWexner Medical CenterComment on above:Performed By: #### BMP, CBC ####[address] [place] [id number] USAGlucose [Mass/Vol]147 mg/mXDkjn83-703SllpclwnhWexner Medical CenterComment on above:Result Comment: Random Glucose Reference Range is dependent on time and content of last meal. Glucose of more than 200 mg/dL in a nonstressed, ambulatory subject supports the diagnosis of Diabetes Mellitus. ADA recommended reference rangePerformed By: #### BMP, CBC ####[address] [address] USAPotassium [Moles/Vol] 3.8 mmol/LNormal3.5-5.1FLakeHealth Beachwood Medical CenterComment on above: Performed By: #### BMP, CBC ####[address] [address] USASodium [Moles/Vol]134 mmol/EFci260-606ZkzejtdwoWexner Medical CenterComment on above:Performed By: #### BMP, CBC ####[address] [address] USAUrea nitrogen [Mass/Vol]16 mg/dLNormal7-25[facility] CenterComment on above:Performed By: #### BMP, CBC ####[address] [address] USABasophils Auto (Bld) [#/Vol]Ordered By: Tisha Cardona on 28-46-7257Pbsfabfsk (Bld) [#/Vol]0.0 10*3/uL0.0-0.2FLakeHealth Beachwood Medical CenterBasophils/100 WBC Auto (Bld)Ordered By: Tisha Cardona on 24-38-9955Kawwgxrbu/100 WBC (Bld)0.3 %.[facility] Bilirubin Test strip Ql (U)Ordered By: Tisha Cardona on 68-68-8313Fziqfmrco Ql (U)NegativeNegativeWexner Medical CenterCalcium [Mass/volume] in Serum or PlasmaOrdered By: Tisha Cardona on 91-95-0944Olxzcde [Mass/Vol]9.3 mg/dL8.6-10.3FLakeHealth Beachwood Medical CenterCarbon dioxide, total [Moles/volume] in Serum or PlasmaOrdered By: Tisha Cardona on 07-23-1467RT5 [Moles/Vol]29.2 mmol/L21.0-31.0[facility] CenterChloride [Moles/volume] in Serum or PlasmaOrdered By: Tisha Cardona on 01-22-2023 Chloride [Moles/Vol]98 mmol/S43-362MkcuedqixWexner Medical CenterColor Auto (U)Ordered By: Tisha Cardona on 53-06-2558Vnecv (U)OrangeYellowWexner Medical CenterComplete Blood Count Auto Diffon 16-76-5395Hftncuzxq (Bld) [#/Vol]0.0 10*3/uLNormal0.0-0.2FLakeHealth Beachwood Medical CenterComment on above:Result Comment: PERFORMED BY: [facility] [address] [id number] PATHOLOGIST LIGHT ADJUSTER DEVANG LEMONS M.D.Performed By: #### BMP, CBC ####[facility] [address] [place] [address] USABasophils/100 WBC (Bld)0.3 %Normal. [facility] CenterComment on above:Performed By: #### BMP, CBC ####[facility] [id number] [place] Eosinophils (Bld) [#/Vol]0.2 10*3/uLNormal0.0-0.45[facility] CenterComment on above:Performed By: #### BMP, CBC ####[place] [id number] USAEosinophils/100 WBC (Bld)2.4 % Normal.[facility] Medical CenterComment on above:Performed By: #### BMP, CBC ####[place] [address] [place] Erythrocyte distribution width (RBC) [Ratio]14.8 %Hnrged18.0-14.8[facility] Medical CenterComment on above:Performed By: #### BMP, CBC ####[address] Hematocrit (Bld) [Volume fraction]42.6 %Rtprni07.8-50.0[facility] CenterComment on above:Performed By: #### BMP, CBC ####[place] [address] USAHemoglobin (Bld) [Mass/Vol]13.8 g/jOGlykvh13.0-17.0[facility] CenterComment on above:Performed By: #### BMP, CBC ####[place] [address] USALymphocytes (Bld) [#/Vol]2.0 10*3/uLNormal1.00-4.8 [facility] CenterComment on above:Performed By: #### BMP, CBC ####[place] [address] [place] Lymphocytes/100 WBC (Bld)25.4 %Normal.[facility] Medical CenterComment on above:Performed By: #### BMP, CBC ####[place] [id number] USAMCH (RBC) [Entitic mass]27.8 bdGehfcn42.5-35.2 [facility] CenterComment on above:Performed By: #### BMP, CBC ####[address] [place] [address] USAMCV (RBC) [Entitic vol]85.7 nKKqckwj77.5-101W[facility] Medical CenterComment on above:Performed By: #### BMP, CBC ####[address] [address] USAMean Corpuscular HGB Conc32.4 g/dLLow32.5-35.6 [facility] CenterComment on above:Performed By: #### BMP, CBC ####[address] [address] [place] Monocytes (Bld) [#/Vol]0.5 10*3/uLNormal0.0-0.8[facility] Comment on above:Performed By: #### BMP, CBC ####[place] [id number] USAMonocytes/100 WBC (Bld)6.7 %Normal. [facility] CenterComment on above:Performed By: #### BMP, CBC ####[address] [address] [place] Neutrophils (Bld) [#/Vol]5.2 10*3/uLNormal1.8-7.7FLakeHealth Beachwood Medical CenterComment on above:Performed By: #### BMP, CBC ####[address] [address] USANeutrophils/100 WBC (Bld)65.2 %Normal.[facility] CenterComment on above:Performed By: #### BMP, CBC ####[address] [address] USANRBC%0.1 /100{WBC}Normal0-0.5FLakeHealth Beachwood Medical CenterComment on above:Performed By: #### BMP, CBC ####[address] [address] USAPlatelet mean volume (Bld) [Entitic vol]8.0 fLNormal 6.6-10.1FLakeHealth Beachwood Medical CenterComment on above:Performed By: #### BMP, CBC ####[facility] [address] [place] [address] USAPlatelets (Bld) [#/Vol]280 10*3/xPLsustx678-025FrolwpsnnWexner Medical CenterComment on above:Performed By: #### BMP, CBC ####[facility] [address] [place] [address] USARBC (Bld) [#/Vol]4.97 10*6/uL Normal3.90-5.60[facility] CenterComment on above:Performed By: #### BMP, CBC ####[facility] [address] [place] [address] USAWBC (Bld) [#/Vol]8.0 10*3/uLNormal4.1-10.5FLakeHealth Beachwood Medical CenterComment on above:Performed By: #### BMP, CBC ####[facility] [id number] [place], [place] [id number] USACreatinine [Mass/volume] in Serum or PlasmaOrdered By: Tisha Cardona on [id number] [Mass/Vol] 1.04 mg/dL0.70-1.30[facility] Medical CenterDipstick and Microscopicon [phone] (U)CloudyCritically abnormalCleMcKitrick HospitalComment on above:Order Comment: Name Collection Type:: Kramer Catheter Performed By: #### CUU, ADDONUAPLUS #### [facility] [address] [place] [address] USABacteria,UrineRareHighNone [facility] HospitalComment on above:Order Comment: Name Collection Type:: Kramer Catheter Performed By: #### CUU, ADDONUAPLUS #### [facility] [address] [place] [id number] USABilirubin,UrineNegativeNormalNegativeWexner Medical CenterComment on above:Order Comment: Name Collection Type:: Kramer CatheterPerformed By: #### CUU, ADDONUAPLUS #### [facility] [address] [place] [id number] USACalcium Oxalate Crystals,UrineRareNormalWexner Medical CenterComment on above:Order Comment: Name Collection Type:: Kramer CatheterPerformed By: #### CUU, ADDONUAPLUS #### [facility] [address] [place] [address] USAColor (U)OrangeCritically abnormalYellowWexner Medical CenterComment on above:Order Comment: Name Collection Type:: Kramer CatheterPerformed By: #### CUU, ADDONUAPLUS #### [facility] [address] [place] [address] USAGlucose Ql (U)NormalNormalNormalWexner Medical CenterComment on above:Order Comment: Name Collection Type:: Kramer Catheter Performed By: #### CUU, ADDONUAPLUS #### [facility] [address] [place] [address] USAHyaline Casts,UrineNone SeenNormal0-8[facility] Medical CenterComment on above:Order Comment: Name Collection Type:: Kramer CatheterPerformed By: #### CUU, ADDONUAPLUS #### [facility] [address] [place] [address] USAKetones Ql (U)TraceHighNegativeWexner Medical CenterComment on above:Order Comment: Name Collection Type:: Kramer Catheter Performed By: #### CUU, ADDONUAPLUS #### [facility] [address] [place] [address] USALeukocyte esterase Test strip Ql (U)2+HighNegative [facility]ner Medical CenterComment on above:Order Comment: Name Collection Type:: Kramer CatheterPerformed By: #### CUU, ADDONUAPLUS #### [facility] [address] [place] [address] USANitrite,UrineNegativeNormalNegativeWexner Medical CenterComment on above:Order Comment: Name Collection Type:: Kramer CatheterPerformed By: #### CUU, ADDONUAPLUS #### [facility] [address] [place] [address] USAOccult Blood,Urine3+HighNegThe MetroHealth SystemComment on above:Order Comment: Name Collection Type:: Kramer Catheter Result Comment: PERFORMED BY: [place] [address] PATHOLOGIST LIGHT ADJUSTER DEVANG LEMONS M.D.Performed By: #### CUU, ADDONUAPLUS #### [facility] [address] [place] [address] USApH (U)5.5 [pH]Normal5.0-9.0Wexner Medical CenterComment on above:Order Comment: Name Collection Type:: Kramer Catheter Performed By: #### CUU, ADDONUAPLUS #### [facility] [address] [place] [address] USAProtein (U) [Mass/Vol]100 mg/dLHighNegThe MetroHealth SystemComment on above:Order Comment: Name Collection Type:: Kramer CatheterPerformed By: #### CUU, ADDONUAPLUS #### [facility] [address] [place] [address] USARBC,Cooaz59-26Vcbp5-9XsmqtplslLakeHealth Beachwood Medical Center Comment on above:Order Comment: Name Collection Type:: Kramer CatheterPerformed By: #### CUU, ADDONUAPLUS #### [facility] [address] [place] [address] USASpecificy [place],Urine1.908Owedie1.001-1.030Wexner Medical CenterComment on above:Order Comment: Name Collection Type:: Kramer CatheterPerformed By: #### CUU, ADDONUAPLUS #### [facility] [address] [place] [address] USASquamous Epithelial Cell,UrineNone SeenNormal0-2FLakeHealth Beachwood Medical CenterComment on above:Order Comment: Name Collection Type:: Kramer CatheterPerformed By: #### CUU, ADDONUAPLUS #### [facility] [address] [place] [address] USAUrobilinogen,UrineNormalNormalNormalWexner Medical CenterComment on above:Order Comment: Name Collection Type:: Kramer CatheterPerformed By: #### CUU, ADDONUAPLUS #### [facility] [address] [place] [id number] USAWBC,Xthdo3-0Egga5-3PsraqpvegLakeHealth Beachwood Medical Center Comment on above:Order Comment: Name Collection Type:: Kramer CatheterPerformed By: #### CUU, ADDONUAPLUS #### [facility] [address] [place] [address] USAYeast,UrineNone SeenNormalNone SeenWexner Medical CenterComment on above:Order Comment: Name Collection Type:: Kramer CatheterResult Comment: PERFORMED BY: [facility] [address] [place] [address] PATHOLOGIST LIGHT ADJUSTER DEVANG LEMONS M.D.Performed By: #### CUU, ADDONUAPLUS #### [facility] [address] [place] [address] USAEosinophils Auto (Bld) [#/Vol]Ordered By: Tisha Cardona on 24-21-9879Tveltebtvqq (Bld) [#/Vol]0.2 10*3/uL0.0-0.45Wexner Medical CenterEosinophils/100 WBC Auto (Bld)Ordered By: Tisha Cardona on 97-98-5383Owfyiocrosr/100 WBC (Bld)2.4 %.[facility] Erythrocyte distribution width Auto (RBC) [Ratio]Ordered By: Tisha Cardona on 66-01-9531Xyhajlkzrqi distribution width (RBC) [Ratio]14.8 %12.0-14.8W[facility]ner Medical CenterGlucose [Mass/volume] in Serum or PlasmaOrdered By: Tisha Cardona on 89-56-3622Sdxschm [Mass/Vol]147 mg/hP42-602AzlevrdvaWexner Medical CenterComment on above:ADA recommended reference rangeRandom Glucose Reference Range is dependent on time and content of last meal. Glucose of more than 200 mg/dL in a nonstressed, ambulatory subject supports the diagnosisof Diabetes Mellitus.Hematocrit Auto (Bld) [Volume fraction]Ordered By: Tisha Cardona on 80-17-7580Kfjpatnaum (Bld) [Volume fraction]42.6 %38.8-50.0 [facility]ner Medical CenterHemoglobin [Mass/volume] in BloodOrdered By: Tisha Cardona on 12-34-9603Vjvxiqafna (Bld) [Mass/Vol]13.8 g/dL13.0-17.0 [facility] Medical CenterKetones Auto test strip (U) [Mass/Vol]Ordered By: Tisha Cardona on 24-01-3401Fgkdvpj (U) [Mass/Vol]TraceNegativeWexner Medical CenterLaboratory - UrinalysisOrdered By: Tisha Cardona on 01-96-2642Zkzvjnk casts LM Ql (Urine sed)None seen [LPF]0-8W[facility]ner Medical CenterLeukocytes [#/volume] corrected for nucleated erythrocytes in Blood by Automated counOrdered By: Tisha Cardona on 52-02-7755ZHB corrected for nucl RBC Auto (Bld) [#/Vol]8.0 10*3/uL4.1-10.5FLakeHealth Beachwood Medical CenterLymphocytes Auto (Bld) [#/Vol]Ordered By: Tisha Cardona on 01-22-2023 Lymphocytes (Bld) [#/Vol]2.0 10*3/uL1.00-4.8[facility] Lymphocytes/100 WBC Auto (Bld)Ordered By: Tisha Cardona on 01-22-2023 Lymphocytes/100 WBC (Bld)25.4 %.[facility] HospitalH Auto (RBC) [Entitic mass]Ordered By: Tisha Cardona on 38-94-5845TYD (RBC) [Entitic mass] 27.8 pg27.5-35.2FLakeHealth Beachwood Medical CenterMCHC Auto (RBC) [Mass/Vol] Ordered By: Tisha Cardona on 73-79-8992RSTK (RBC) [Mass/Vol]32.4 g/dL 32.5-35.6FLakeHealth Beachwood Medical CenterMCV Auto (RBC) [Entitic vol]Ordered By: Tisha Cardona on 51-39-3884LFO (RBC) [Entitic vol]85.7 fL83.5-101 We[facility]ner Medical CenterMonocytes Auto (Bld) [#/Vol]Ordered By: Tisha Cardona on 28-71-6199Tjpsscpzt (Bld) [#/Vol]0.5 10*3/uL0.0-0.8Wexner Medical CenterMonocytes/100 WBC Auto (Bld)Ordered By: Tisha Cardona on 02-51-8532Nvslgtyiy/100 WBC (Bld)6.7 %.[facility] Neutrophils Auto (Bld) [#/Vol]Ordered By: Tisha Cardona on 01-22-2023 Neutrophils (Bld) [#/Vol]5.2 10*3/uL1.8-7.7FLakeHealth Beachwood Medical Center Neutrophils/100 WBC Auto (Bld)Ordered By: Tisha Cardona on 01-22-2023 Neutrophils/100 WBC (Bld)65.2 %.Wexner Medical CenterNitrite Test strip Ql (U)Ordered By: Tisha Cardona on 17-29-0897Pngxpbq Ql (U)Negative NegativeWexner Medical CenterNo Panel InformationOrdered By: Tisha Cardona on 67-92-0231Yegapcabb GFR (CKD-EPI)> 60.0 mL/MinWexner Medical CenterPharmacy Creatinine Clearance (Tuwh161.71Wexner Medical CenterNucleated erythrocytes [Presence] in Blood by Automated count Ordered By: Tisha Cardona on 55-23-6312Bzjiolxgc RBC Auto Ql (Bld)0.1 /100{WBC}0-0.5FLakeHealth Beachwood Medical CenterPlatelet mean volume Auto (Bld) [Entitic vol]Ordered By: Tisha Cardona on 41-48-3189Zzhprmjb mean volume (Bld) [Entitic vol]8.0 fL6.6-10.1FLakeHealth Beachwood Medical CenterPlatelets Auto (Bld) [#/Vol]Ordered By: Tisha Cardona on 47-79-3382Plisobobo (Bld) [#/Vol] 280 10*3/bM107-194CntrdkrhqWexner Medical CenterPotassium [Moles/volume] in Serum or PlasmaOrdered By: Tisha Cardona on 34-99-3181Edsdbzhgg [Moles/Vol] 3.8 mmol/L3.5-5.1FLakeHealth Beachwood Medical CenterProtein Auto test strip (U) [Mass/Vol]Ordered By: Tisha Cardona on 13-82-3028Mlfxcpu (U) [Mass/Vol]100 mg/dLNegativeWexner Medical CenterRBC Auto (Bld) [#/Vol]Ordered By: Tisha Cardona on 21-10-4673BGK (Bld) [#/Vol]4.97 10*6/uL3.90-5.60Mount [facility]. Mary Hospitalerum or plasma anion gap determinationOrdered By: Tisha Cardona on 49-61-8837Wzxle gap [Moles/Vol]10.6 mmol/L6.0-15.0Mount St. Mary Hospitalodium [Moles/volume] in Serum or PlasmaOrdered By: Tisha Cardona on 91-18-6281Jsepfh [Moles/Vol]134 mmol/L735-248MenhdcjtyMount St. Mary Hospitalpecific gravity Auto test strip (U) [Rel density]Ordered By: Tisha Cardona on 96-33-9061Eydjsqef gravity (U) [Rel density]1.0241.001-1.[address] Mary Hospitalquamous epithelial cells detection in urine sediment by light microscopyOrdered By: Tisha Cardona on 45-14-3823Ldwxjextvw cells.squamous LM Ql (Urine sed)None seen [HPF]0-2FLakeHealth Beachwood Medical CenterUrea nitrogen [Mass/volume] in Serum or PlasmaOrdered By: Tisha Cardona on 92-47-5842Avhz nitrogen [Mass/Vol]16 mg/dL7-25Wexner Medical CenterUrine Cultureon 01-61-4241Jccyvtor identified Cx Nom (U)<9,000 colonies/ml mixed bacterial skin contaminants 2 Days PERFORMED BY: [facility] [address] [place] [address] PATHOLOGIST LIGHT ADJUSTER DEVANG LEMONS M.D.NormalWexner Medical CenterComment on above: Performed By: #### CUU, ADDONUAPLUS #### [facility] [address] [place] [address] USAUrine bacteria detection by automated methodOrdered By: Tisha Cardona on 77-27-7255Ltdbcbhr Auto Ql (U)RareNone SeenWexner Medical CenterUrine clarity by refractometry automatedOrdered By: Tisha Cardona on 63-56-9894Rbgbqqy Refractometry automated (U)CloudyClearFLakeHealth Beachwood Medical CenterUrine culture routineOrdered By: Tisha Cardona on 88-34-3301Iqwbhavc identified Cx Nom (U)2 DaysWexner Medical Center Urine glucose measurement by automated test strip (mass/volume)Ordered By: Tisha Cardona on 57-44-7905Ovwiiyx Auto test strip (U) [Mass/Vol]Normal mg/dL NormalWexner Medical CenterUrine hemoglobin detection by automated test stripOrdered By: Tisha Cardona on 16-59-1513Hosfaqmfyn Auto test strip Ql (U)3+NegativeWexner Medical CenterUrine leukocyte esterase detection by automated test stripOrdered By: Tisha Cardona on 01-22-2023 Leukocyte esterase Auto test strip Ql (U)2+NegativeWexner Medical CenterUrobilinogen Auto test strip (U) [Mass/Vol]Ordered By: Tisha Cardona on 92-50-2475Wpkfmibkoawk (U) [Mass/Vol]Normal mg/dLNormalWexner Medical CenterWBC Auto (Bld) [#/Vol]Ordered By: Tisha Cardona on 01-22-2023 WBC (Bld) [#/Vol]8.0 10*3/uL4.1-10.5FLakeHealth Beachwood Medical CenterYeast detection in urine sediment by light microscopyOrdered By: Tisha Cardona on 97-88-5759Bakec LM Ql (Urine sed)None seen [HPF]None SeenWexner Medical CenterpH Auto test strip (U)Ordered By: Tisha Cardona on 49-87-7465jW (U)5.5 [pH]5.0-9.0[facility]ner Medical CenterBasic Metabolic Panelon 06-62-6684Warei gap [Moles/Vol]13.5 mmol/LNormal6.0-15.0W[facility] Medical CenterComment on above:Performed By: #### CBC, BMP ####[facility] [place] [address] USACalcium [Mass/Vol]8.8 mg/dLNormal8.6-10.3FLakeHealth Beachwood Medical CenterComment on above:Performed By: #### CBC, BMP ####[place] [address] [place] [address] USAChloride [Moles/Vol]99 mmol/VLmkqsq93-439PokmemrquWexner Medical CenterComment on above:Performed By: #### CBC, BMP ####[address] [place] [address] USACO2 [Moles/Vol]26.2 mmol/L Kfjyal60.0-31.0Wexner Medical CenterComment on above:Performed By: #### CBC, BMP ####[address] [place] [address] USACreatinine [Mass/Vol]1.02 mg/dLNormal0.70-1.30Wexner Medical CenterComment on above:Performed By: #### CBC, BMP ####[address] [place] [address] USACreatinine Clr Calc Kufzuygk633.51NoalWexner Medical CenterComment on above:Result Comment: PERFORMED BY: [facility] [address] [place] [address] PATHOLOGIST LIGHT ADJUSTER DEVANG LEMONS M.D.Performed By: #### CBC, BMP ####[address] [address] USAGFR/1.73 sq M.predicted MDRD (S/P/Bld) [Vol rate/Area]mL/min/{1.73_m2}NormalWexner Medical CenterComment on above:Performed By: #### CBC, BMP ####[address] [address] USAGlucose [Mass/Vol]109 mg/oEDejd34-421CyxgagnygWexner Medical CenterComment on above:Result Comment: Random Glucose Reference Range is dependent on time and content of last meal. Glucose of more than 200 mg/dL in a nonstressed, ambulatory subject supports the diagnosis of Diabetes Mellitus. ADA recommended reference rangePerformed By: #### CBC, BMP ####[address] [place] [id number] USAPotassium [Moles/Vol] 3.7 mmol/LNormal3.5-5.1FLakeHealth Beachwood Medical CenterComment on above: Performed By: #### CBC, BMP ####[place] [address] USASodium [Moles/Vol]135 mmol/FPqw725-400EwzzikohpWexner Medical CenterComment on above:Performed By: #### CBC, BMP ####[place] [id number] USAUrea nitrogen [Mass/Vol]18 mg/dLNormal7-25Wexner Medical CenterComment on above:Performed By: #### CBC, BMP ####[place] [address] USAComplete Blood Count Auto Diffon 01-77-9623Rzkzarnhc (Bld) [#/Vol]0.0 10*3/uLNormal0.0-0.2FLakeHealth Beachwood Medical CenterComment on above:Result Comment: PERFORMED BY: [facility] [address] [place] [id number] PATHOLOGIST LIGHT ADJUSTER DEVANG LEMONS M.D.Performed By: #### CBC, BMP ####[place] [id number] USABasophils/100 WBC (Bld)0.3 %Normal. Wexner Medical CenterComment on above:Performed By: #### CBC, BMP ####[place] [address] [place] Eosinophils (Bld) [#/Vol]0.1 10*3/uLNormal0.0-0.45W[facility]ner Medical CenterComment on above:Performed By: #### CBC, BMP ####[place] [address] USAEosinophils/100 WBC (Bld)1.2 % Normal.Wexner Medical CenterComment on above:Performed By: #### CBC, BMP ####[address] Erythrocyte distribution width (RBC) [Ratio]14.3 %Uiuiwt05.0-14.8W[facility]ner Medical CenterComment on above:Performed By: #### CBC, BMP ####[address] Hematocrit (Bld) [Volume fraction]41.8 %Jqhnvo29.8-50.0W[facility]ner Medical CenterComment on above:Performed By: #### CBC, BMP ####[place] [address] USAHemoglobin (Bld) [Mass/Vol]13.6 g/xGSugard37.0-17.0W[facility]ner Medical CenterComment on above:Performed By: #### CBC, BMP ####[place] [address] USALymphocytes (Bld) [#/Vol]3.2 10*3/uLNormal1.00-4.8 [facility] Medical CenterComment on above:Performed By: #### CBC, BMP ####[place] [address] [place] Lymphocytes/100 WBC (Bld)36.1 %Normal.Wexner Medical CenterComment on above:Performed By: #### CBC, BMP ####[place] [address] USAMCH (RBC) [Entitic mass]27.7 sgEjagac69.5-35.2 [facility] Medical CenterComment on above:Performed By: #### CBC, BMP ####[place] [address] USAMCV (RBC) [Entitic vol]84.9 pGUgipvm82.5-101W[facility]ner Medical CenterComment on above:Performed By: #### CBC, BMP ####[address] [address] USAMean Corpuscular HGB Conc32.6 g/dLNormal 32.5-35.6FLakeHealth Beachwood Medical CenterComchelsea hospital on above:Performed By: #### CBC, BMP ####[address] [address] USAMonocytes (Bld) [#/Vol]0.8 10*3/uLNormal0.0-0.8W[facility]ner Medical CenterComchelsea hospital on above:Performed By: #### CBC, BMP ####[address] [address] USAMonocytes/100 WBC (Bld)8.7 % Normal.W[facility]ner Medical CenterComchelsea hospital on above:Performed By: #### CBC, BMP ####[address] [address] USA Neutrophils (Bld) [#/Vol]4.7 10*3/uLNormal1.8-7.7FLakeHealth Beachwood Medical CenterComchelsea hospital on above:Performed By: #### CBC, BMP ####[address] [address] USANeutrophils/100 WBC (Bld)53.7 %Normal.W[facility]ner Medical CenterComchelsea hospital on above:Performed By: #### CBC, BMP ####[address] [address] USANRBC%0.2 /100{WBC}Normal0-0.5FLakeHealth Beachwood Medical CenterComchelsea hospital on above:Performed By: #### CBC, BMP ####[address] [address] USAPlatelet mean volume (Bld) [Entitic vol]8.1 fLNormal 6.6-10.1FLakeHealth Beachwood Medical CenterComchelsea hospital on above:Performed By: #### CBC, BMP ####[address] [address] USAPlatelets (Bld) [#/Vol]245 10*3/rEWxikyj256-838VixcuhrhzWexner Medical CenterComment on above:Performed By: #### CBC, BMP ####[facility] [place] [address] USARBC (Bld) [#/Vol]4.92 10*6/uL Normal3.90-5.60W[facility]ner Medical CenterComment on above:Performed By: #### CBC, BMP ####[facility] [address] [place] [address] USAWBC (Bld) [#/Vol]8.8 10*3/uLNormal4.1-10.5FLakeHealth Beachwood Medical CenterComment on above:Performed By: #### CBC, BMP ####[facility] [address] [place] [address] USAMR head/brain wo conon 43-08-9710YS head/brain wo [facility] [address] [facility] [address] [place] [address] MRI Report Signed Patient: Taras Hayward MR#: [id number] 56 : 1970 Acct:[id number] Age/Sex: 52 / M ADM Date: 01/03/23 Loc: Room: [address] [place] [address] Type: ADM IN Attending Dr: Srinivas Patricia MD Copies to: DO Srinivas Smith MD Ordering Provider: Pilo Nieto DO Date of Service: 01/18/23 MR/MR head/brain wo con: worsened dysarthria, hx cerebellar CVA, CIRCULAR SAW OPERATOR shunt EXAMINATION: MRI OF THE BRAIN WITHOUT [...] Sharon Jordan M.D.01/18/2023 3:43 PM Dictation Location: [place] [address] Transcribed By: [facility] 01/18/23 1543 Dictated By: Sharon Jordan MD 01/18/23 1535 Signed By: 01/18/23 1543Pro[facility] Memorial HospitalXR pre/post mri xrayon 75-66-0288NO pre/post mri [facility]rayPROM[facility] [address] [place] [address] XRay Report Signed Patient: Taras Hayward MR#: [id number] 56 : 1970 Acct:[id number] Age/Sex: 52 / M ADM Date: 01/03/23 Loc: Room: [address] [place] [address] Type: ADM IN Attending Dr: Srinivas Patricia MD Copies to: Srinivas Patricia MD Ordering Provider: Srinivas Patricia MD Date of Service: 01/18/23 XR/XR pre/post mri xray: SHUNT CHECK PRE-MRI CALVARIUM - 4 images CLINICAL DATA: Pre-MRI assessment in patient with CIRCULAR SAW OPERATOR shunt. COMPARISON: CT 01/12/2023 AP and lateral views were obtained. There is a right-sided ventriculoperitoneal shunt through a posterior parietal approach. The visualized hardware appears intact. There is prior occipital craniectomy. There are no acute osseous abnormalities. The visualized paranasal sinuses appear clear. XR/XR pre/post mri xray IMPRESSION: RIGHT-SIDED VENTRICULOPERITONEAL SHUNT. Impression dictated by: Sharon Jordan M.D.01/18/2023 3:35 PM Dictation Location: [facility] Transcribed By: ADELA 01/18/231534 Dictated By: Sharon Jordan MD 01/18/231532 Signed By: 01/18/231534ProMedica Memorial HospitalNordiazepam [Mass/volume] in Serum or PlasmaOrdered By: Megha Lacy on 58-69-2512Fecxxndasih [Mass/Vol] <0.1 ug/mL.[facility] Medical CenterComment on above:This test was developed and its performance characteristicsdetermined by [facility]. It has not been cleared orapproved by the Food and Drug Administration.Serum or plasma diazepam measurement (mass/volume)Ordered By: Megha Lacy on 01-15-2023 diazePAM [Mass/Vol]<0.1 ug/mL.[facility] Medical CenterComment on above: This test was developed and its performance characteristicsdetermined by [facility]. It has not been cleared orapproved by the Food and Drug Administration. Valiumon 65-21-7092Objwaaoqvqw<0.1Normal.[facility] Comment on above:Result Comment: This test was developed and its performance characteristics determined by [facility]. It has not been cleared or approved by the Food and Drug Administration.Performed By: #### VALIUM ####[facility] ,Total (Norton+Branden)<.2Low0.2-2.5FLakeHealth Beachwood Medical CenterComment on above:Result Comment: Detection Limit = 0.10 Performed at: [facility] [address] [id number] Home Attendant: Mandy Eid MD, Phone: [phone] PERFORMED BY: [facility] [address] [place] [address] PATHOLOGIST LIGHT ADJUSTER DEVANG LEMONS M.D.Performed By: #### VALIUM ####[facility] ,Valium<0.1 Normal.[facility]ner Medical CenterComment on above:Result Comment: This test was developed and its performance characteristics determined by [facility]. It has not been cleared or approved by the Food and Drug Administration.Performed By: #### VALIUM ####[facility] ,diazePAM+Nordiazepam [Mass/volume] in Serum or Plasma Ordered By: Megha Lacy on 34-49-9290pdvcoPHP+Nordiazepam [Mass/Vol]<.2 ug/mL 0.2-2.5FLakeHealth Beachwood Medical CenterComment on above:Detection Limit = 0.10Performed at: [facility] Labco[address] [id number] Director: Mandy Eid MD, Phone: [phone] Metabolic Panelon 86-68-9511Tdkuz gap [Moles/Vol]11.5 mmol/LNormal6.0-15.0W[facility] Medical CenterComment on above:Performed By: #### CBC, BMP #### [facility] [address] [place] [address] USACalcium [Mass/Vol]8.8 mg/dLNormal8.6-10.3FLakeHealth Beachwood Medical CenterComment on above:Performed By: #### CBC, BMP #### [facility] [address] [place] [address] USAChloride [Moles/Vol]101 mmol/XLyvmua56-394OqoenpilnWexner Medical CenterComment on above:Performed By: #### CBC, BMP #### [facility] [address] [place] [address] USACO2 [Moles/Vol]26.5 mmol/CWsagzm79.0-31.0[facility] Medical CenterComment on above:Performed By: #### CBC, BMP #### [facility] [address] [place] [address] USACreatinine [Mass/Vol]1.12 mg/dLNormal0.70-1.30[facility] Medical CenterComment on above:Performed By: #### CBC, BMP #### [facility] [address] [place] [address] USACreatinine Clr Calc Xkerrwbx942.62NormCleveland ClinicComment on above:Result Comment: PERFORMED BY: [place] [address] PATHOLOGIST LIGHT ADJUSTER DEVANG LEMONS M.D.Performed By: #### CBC, BMP #### [place] [address] USAGFR/1.73 sq M.predicted MDRD (S/P/Bld) [Vol rate/Area] mL/min/{1.73_m2}NormalWexner Medical CenterComment on above: Performed By: #### CBC, BMP #### [place] [address] USAGlucose [Mass/Vol]121 mg/lIHxas39-384UqffczlxzWexner Medical CenterComment on above:Result Comment: Random Glucose Reference Range is dependent on time and content of last meal. Glucose of more than 200 mg/dL in a nonstressed, ambulatory subject supports the diagnosis of Diabetes Mellitus. ADA recommended reference rangePerformed By: #### CBC, BMP #### [place] [address] USAPotassium [Moles/Vol]4.0 mmol/LNormal3.5-5.1FLakeHealth Beachwood Medical CenterComment on above:Performed By: #### CBC, BMP #### [place] [address] USASodium [Moles/Vol]135 mmol/MBak129-007WyetdfgcbWexner Medical CenterComment on above:Performed By: #### CBC, BMP #### [place] [address] USAUrea nitrogen [Mass/Vol]15 mg/dLNormal7-25W[facility] Medical CenterComment on above:Performed By: #### CBC, BMP #### [place] [address] USAComplete Blood Count Auto Diffon 69-94-0531Vwdhyggky (Bld) [#/Vol]0.0 10*3/uLNormal0.0-0.2FLakeHealth Beachwood Medical CenterComment on above:Result Comment: PERFORMED BY: [address] [place] [address] PATHOLOGIST LIGHT ADJUSTER DEVANG LEMONS M.D.Performed By: #### CBC, BMP #### [place] [address] USABasophils/100 WBC (Bld)0.2 %Normal.[facility]ner Medical CenterComment on above:Performed By: #### CBC, BMP #### [place] [address] USAEosinophils (Bld) [#/Vol]0.1 10*3/uLNormal0.0-0.45 [facility] Medical CenterComment on above:Performed By: #### CBC, BMP #### [place] [address] USAEosinophils/100 WBC (Bld)1.5 %Normal.[facility] Medical CenterComment on above:Performed By: #### CBC, BMP #### [place] [address] USAErythrocyte distribution width (RBC) [Ratio]14.3 %Normal 12.0-14.8W[facility]ner Medical CenterComment on above:Performed By: #### CBC, BMP #### [place] [address] USAHematocrit (Bld) [Volume fraction]38.6 %Low38.8-50.0 [facility] Medical CenterComment on above:Performed By: #### CBC, BMP #### [place] [address] USAHemoglobin (Bld) [Mass/Vol]12.7 g/dLLow13.0-17.0W[facility] Medical CenterComment on above:Performed By: #### CBC, BMP #### [place] [address] USALymphocytes (Bld) [#/Vol]2.5 10*3/uLNormal1.00-4.8 [facility] Medical CenterComment on above:Performed By: #### CBC, BMP #### [address] [place] [address] USALymphocytes/100 WBC (Bld)28.7 %Normal.[facility]ner Medical CenterComment on above:Performed By: #### CBC, BMP #### [facility] [address] [place] [address] USAMCH (RBC) [Entitic mass]27.8 usYvwcey52.5-35.2FLakeHealth Beachwood Medical CenterComment on above:Performed By: #### CBC, BMP #### [facility] [address] [place] [address] USAMCV (RBC) [Entitic vol]84.8 tNPuhptl75.5-101W[facility]ner Medical CenterComment on above:Performed By: #### CBC, BMP #### [facility] [address] [place] [address] USAMean Corpuscular HGB Conc32.8 g/sDLkkwqp20.5-35.6FLakeHealth Beachwood Medical CenterComment on above:Performed By: #### CBC, BMP #### [facility] [address] [place] [address] USAMonocytes (Bld) [#/Vol]0.7 10*3/uLNormal0.0-0.8[facility] Medical CenterComchelsea hospital on above:Performed By: #### CBC, BMP #### [place] [address] USAMonocytes/100 WBC (Bld)8.6 %Normal.[facility] Medical CenterComment on above:Performed By: #### CBC, BMP #### [facility] [facility] [address] [place] [address] USANeutrophils (Bld) [#/Vol]5.3 10*3/uLNormal1.8-7.7FLakeHealth Beachwood Medical CenterComment on above:Performed By: #### CBC, BMP #### [facility] [address] [place] [address] USANeutrophils/100 WBC (Bld)61.0 %Normal.[facility] CenterComment on above:Performed By: #### CBC, BMP #### [facility] [address] [place] [address] USANRBC%0.2 /100{WBC}Normal0-0.5FLakeHealth Beachwood Medical CenterComment on above:Performed By: #### CBC, BMP #### [facility] [address] [place] [address] USAPlatelet mean volume (Bld) [Entitic vol]8.2 fLNormal 6.6-10.1FLakeHealth Beachwood Medical CenterComment on above:Performed By: #### CBC, BMP #### [facility] [address] [place] [address] USAPlatelets (Bld) [#/Vol]210 10*3/pRWbimnc935-830TncgihyoaWexner Medical CenterComment on above:Performed By: #### CBC, BMP #### [facility] [address] [place] [address] USARBC (Bld) [#/Vol]4.55 10*6/uLNormal3.90-5.60[facility] CenterComment on above:Performed By: #### CBC, BMP #### [facility] [address] [place] [address] USAWBC (Bld) [#/Vol]8.6 10*3/uLNormal4.1-10.5FLakeHealth Beachwood Medical CenterComment on above:Performed By: #### CBC, BMP #### [facility] [address] [place] [address] USACT head[facility]brain wo [facility]on 64-13-5158FY head/brain wo [facility] [place] [address] CT Scan Report Signed Patient: Taras Hayward MR#: [id number] 56 : 1970 Acct:[id number] Age/Sex: 52 / M ADM Date: 01/03/23 Loc: Room: [address] [place] [address] Type: ADM IN Attending Dr: Srinivas Patricia [...] evidence of stroke. 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 in [...] Moore Jr., DFaridaOFarida01/12/2023 3:01 PM Dictation Location: [place] [address] Transcribed By: [facility] 01/12/23 1501 Dictated By: Srinivas Moore Jr, DO 01/12/23 1456 Signed By: 01/12/23 1501ProMedica Memorial HospitalUS venous duplex LE [facility] 31-79-2289OE venous duplex LE [facility] [place] [address] [place] [address] Ultrasound Report Signed Patient: Taras Hayward MR#: [id number] 56 : 1970 Acct:[id number] Age/Sex: 52 / M ADM Date: 01/03/23 Loc: Room: [address] [place] [address] Type: ADM IN Attending Dr: Srinivas Patricia [...] Gerardo Miranda M.D.01/12/2023 10:53 AM Dictation Location: [place] [address] Tech: Caitlyn Ortiz Transcribed By: ADELA 01/12/23 105 Dictated By: Gerardo Miranda MD 01/12/23 105 Signed By: 01/12/23 105NoChillicothe VA Medical CenterDipstick and Microscopicon 21-12-7958Rabwdrlhqu (U)CloudyCritically abnormalCleMcKitrick HospitalComment on above:Order Comment: Name Collection Type:: Clean-Voided MidstreamPerformed By: #### CUU, ADDONUAPLUS ####[place] [address] [facility], [id number] USABacteria,Urine4+HighNone SeenWexner Medical CenterComment on above:Order Comment: Name Collection Type:: Clean-Voided MidstreamPerformed By: #### CUU, ADDONUAPLUS ####[place] [address] [facility], [place] USABilirubin,UrineNegativeNormal NegativeWexner Medical CenterComment on above:Order Comment: Name Collection Type:: Clean-Voided MidstreamPerformed By: #### CUU, ADDONUAPLUS ####[place] [address] [facility], [place] USAColor (U)Dark YellowCritically abnormalYelGeorgetown Behavioral HospitalComment on above:Order Comment: Name Collection Type:: Clean-Voided MidstreamPerformed By: #### CUU, ADDONUAPLUS ####[facility] [facility], [place] USAGlucose Ql (U)NormalNormalNormalWexner Medical CenterComment on above:Order Comment: Name Collection Type:: Clean- Voided MidstreamPerformed By: #### CUU, ADDONUAPLUS ####[address] [address] USAHyaline Casts,Gavtd0-7Jbvrac0-1 [facility] CenterComment on above:Order Comment: Name Collection Type:: Clean-Voided MidstreamResult Comment: PERFORMED BY: [facility] [address] [place] [place] [id number] PATHOLOGIST LIGHT ADJUSTER DEVANG LEMONS M.D.Performed By: #### CUU, ADDONUAPLUS ####[address] USAKetones Ql (U)1+HighNegative [facility] CenterComment on above:Order Comment: Name Collection Type:: Clean-Voided MidstreamPerformed By: #### CUU, ADDONUAPLUS ####[address] [address] USALeukocyte esterase Test strip Ql (U)4+HighNegativeWexner Medical CenterComment on above:Order Comment: Name Collection Type:: Clean-Voided MidstreamPerformed By: #### CUU, ADDONUAPLUS ####[address] [address] USANitrite,UrineNegativeNormalNegativeWexner Medical CenterComment on above:Order Comment: Name Collection Type:: Clean- Voided MidstreamPerformed By: #### CUU, ADDONUAPLUS ####[address] USAOccult Blood,UrineTraceHigh NegativeWexner Medical CenterComment on above:Order Comment: Name Collection Type:: Clean-Voided MidstreamResult Comment: PERFORMED BY: [facility] [address] [place] [address] PATHOLOGIST LIGHT ADJUSTER DEVANG LEMONS M.D.Performed By: #### CUU, ADDONUAPLUS ####[address]kamaljitJAMA[place], [place] USApH (U)6.0 [pH]Normal5.0-9.0 [facility] CenterComment on above:Order Comment: Name Collection Type:: Clean-Voided MidstreamPerformed By: #### CUU, ADDONUAPLUS ####[address] USAProtein,UrineTraceHigh NegativeWexner Medical CenterComment on above:Order Comment: Name Collection Type:: Clean-Voided MidstreamPerformed By: #### CUU, ADDONUAPLUS ####[address] [facility] RBC,Mbtub22-66Hksc9-6VbufdmdapLakeHealth Beachwood Medical CenterComment on above:Order Comment: Name Collection Type:: Clean-Voided MidstreamPerformed By: #### CUU, ADDONUAPLUS ####[address] USASpecificy [place],Urine1.132Pqaxzz7.001-1.030[facility] CenterComment on above:Order Comment: Name Collection Type:: Clean-Voided MidstreamPerformed By: #### CUU, ADDONUAPLUS ####[address] [place] USASquamous Epithelial Cell,UrineNone Seen Normal0-2FLakeHealth Beachwood Medical CenterComment on above:Order Comment: Name Collection Type:: Clean-Voided MidstreamPerformed By: #### CUU, ADDONUAPLUS ####[address] [place] Urobilinogen,UrineNormalNormalNormalWexner Medical CenterComment on above:Order Comment: Name Collection Type:: Clean-Voided MidstreamPerformed By: #### CUU, ADDONUAPLUS ####[address] USAWBC,Quusq51-425Rnbv9-3VislxmvsxLakeHealth Beachwood Medical CenterComment on above:Order Comment: Name Collection Type:: Clean-Voided MidstreamPerformed By: #### NICK KING ####[facility] [address] [place] [id number] USAUniversity Hospital Cultureon 24-24-5280Vjtqokuh identified Cx Nom (U)ORGANISM: Klebsiella pneumoniae (O:KLEPNE) [place] Count >100,000 Aerobic SAI Charge (NMIC56) SUSCEPTIBILITY [...] RESISTANT TO ALL B-LACTAM DRUGS. PERFORMED BY: [facility] [address] [place] [id number] PATHOLOGIST LIGHT ADJUSTER DEVANG LEMONS M.D.ProMedica Memorial HospitalComment on above: Performed By: #### LEELA KINGPLUS ####[facility] [address] [place], [place] USABasic Metabolic Panelon 54-05-7736Sdzvy gap [Moles/Vol]9.9 mmol/LNormal6.0-15.0[facility] CenterComment on above:Performed By: #### BMP, CBC #### [facility] [address] [place] [address] USACalcium [Mass/Vol]8.9 mg/dLNormal8.6-10.3FLakeHealth Beachwood Medical CenterComment on above:Performed By: #### BMP, CBC #### [facility] [address] [place] [address] USAChloride [Moles/Vol]103 mmol/TCjjuhw39-925AuhvmriioWexner Medical CenterComment on above:Performed By: #### BMP, CBC #### [facility] [address] [place] [address] USACO2 [Moles/Vol]29.9 mmol/LHhragb70.0-31.0[facility] CenterComment on above:Performed By: #### BMP, CBC #### [facility] [address] [place] [id number] USACreatinine [Mass/Vol]0.75 mg/dLNormal0.70-1.30[facility] CenterComment on above:Performed By: #### BMP, CBC #### [facility] [address] [place] [address] USACreatinine Clr Calc Zewaowzc756.10NormalWexner Medical CenterComment on above:Result Comment: PERFORMED BY: [place] [address] PATHOLOGIST LIGHT ADJUSTER DEVANG LEMONS M.D.Performed By: #### BMP, CBC #### [facility] [address] [place] [address] USAGFR/1.73 sq M.predicted MDRD (S/P/Bld) [Vol rate/Area] mL/min/{1.73_m2}NormalFirelands Regional Medical CenterComment on above: Performed By: #### BMP, CBC #### [facility] [address] [place] [id number] USAGlucose [Mass/Vol]100 mg/fQEzuwqg39-454HvbokbgrhWexner Medical CenterComment on above:Result Comment: Random Glucose Reference Range is dependent on time and content of last meal. Glucose of more than 200 mg/dL in a nonstressed, ambulatory subject supports the diagnosis of Diabetes Mellitus. ADA recommended reference rangePerformed By: #### BMP, CBC #### [facility] [address] [place] [address] USAPotassium [Moles/Vol]3.8 mmol/LNormal3.5-5.1FLakeHealth Beachwood Medical CenterComment on above:Performed By: #### BMP, CBC #### [facility] [address] [place] [address] USASodium [Moles/Vol]139 mmol/BFressh578-307FxyqspdlgWexner Medical CenterComment on above:Performed By: #### BMP, CBC #### [facility] [address] [place] [address] USAUrea nitrogen [Mass/Vol]12 mg/dLNormal7-25[facility] CenterComment on above:Performed By: #### BMP, CBC #### [facility] [address] [place] [address] USABasophils Auto (Bld) [#/Vol]Ordered By: Tisha Cardona on 73-72-4191Wtophfezm (Bld) [#/Vol]0.0 10*3/uL0.0-0.2FLakeHealth Beachwood Medical CenterBasophils/100 WBC Auto (Bld)Ordered By: Tisha Cardona on 01-09-2023 Basophils/100 WBC (Bld)0.3 %.[facility] CenterCT head/brain wo conon 21-13-6221JR head/brain wo [facility] [place] [address] [place] [address] CT Scan Report Signed Patient: Taras Hayward MR#: [id number] 56 : 1970 Acct:[id number] Age/Sex: 52 / M ADM Date: 01/03/23 Loc: Room: 6G5381-5 Type: ADM IN Attending Dr: Srinivas Patricia [...] Harsh Rodriguez M.D.01/09/2023 11:00 AM Dictation Location: [place] [address] Transcribed By: [facility] 01/09/23 1100 Dictated By: Harsh Rodriguez II, MD 01/09/23 1057 Signed By: 01/09/23 1100NoChillicothe VA Medical CenterCalcium [Mass/volume] in Serum or PlasmaOrdered By: Tisha Cardona on 74-49-6424Cjhirab [Mass/Vol]8.9 mg/dL8.6-10.3FLakeHealth Beachwood Medical CenterCarbon dioxide, total [Moles/volume] in Serum or PlasmaOrdered By: Tisha Cardona on 34-22-6531HO5 [Moles/Vol]29.9 mmol/L21.0-31.0[facility] CenterChloride [Moles/volume] in Serum or PlasmaOrdered By: Tisha Cardona on 01-09-2023 Chloride [Moles/Vol]103 mmol/L98-930DazswcvhkWexner Medical CenterComplete Blood Count Auto Diffon 38-05-8592Gsyzsvofr (Bld) [#/Vol]0.0 10*3/uLNormal 0.0-0.2FLakeHealth Beachwood Medical CenterComment on above:Result Comment: PERFORMED BY: [place] [address] PATHOLOGIST LIGHT ADJUSTER DEVANG LEMONS M.D.Performed By: #### BMP, CBC #### [facility] [address] [place] [address] USABasophils/100 WBC (Bld)0.3 %Normal.[facility] CenterComment on above:Performed By: #### BMP, CBC #### [facility] [address] [place] [address] USAEosinophils (Bld) [#/Vol]0.1 10*3/uLNormal0.0-0.45 [facility] CenterComment on above:Performed By: #### BMP, CBC #### [facility] [address] [place] [address] USAEosinophils/100 WBC (Bld)1.6 %Normal.[facility] CenterComment on above:Performed By: #### BMP, CBC #### [facility] [address] [place] [address] USAErythrocyte distribution width (RBC) [Ratio]14.3 %Normal 12.0-14.8[facility] CenterComment on above:Performed By: #### BMP, CBC #### [facility] [address] [place] [address] USAHematocrit (Bld) [Volume fraction]37.8 %Low38.8-50.0 [facility] CenterComment on above:Performed By: #### BMP, CBC #### [facility] [address] [place] [address] USAHemoglobin (Bld) [Mass/Vol]12.2 g/dLLow13.0-17.0[facility] CenterComment on above:Performed By: #### BMP, CBC #### [facility] [address] [place] [address] USALymphocytes (Bld) [#/Vol]2.3 10*3/uLNormal1.00-4.8 [facility] CenterComment on above:Performed By: #### BMP, CBC #### [facility] [address] [place] [address] USALymphocytes/100 WBC (Bld)36.0 %Normal.[facility] CenterComment on above:Performed By: #### BMP, CBC #### [place] [address] USAMCH (RBC) [Entitic mass]27.4 pgLow27.5-35.2FLakeHealth Beachwood Medical CenterComment on above:Performed By: #### BMP, CBC #### [place] [address] USAMCV (RBC) [Entitic vol]84.9 hBXensrs56.5-101[facility] CenterComment on above:Performed By: #### BMP, CBC #### [facility] [address] [place] [address] USAMean Corpuscular HGB Conc32.3 g/dLLow32.5-35.6FLakeHealth Beachwood Medical CenterComment on above:Performed By: #### BMP, CBC #### [facility] [address] [place] [address] USAMonocytes (Bld) [#/Vol]0.5 10*3/uLNormal0.0-0.8[facility] CenterComment on above:Performed By: #### BMP, CBC #### [facility] [address] [place] [address] USAMonocytes/100 WBC (Bld)7.3 %Normal.[facility] CenterComment on above:Performed By: #### BMP, CBC #### [facility] [address] [place] [address] USANeutrophils (Bld) [#/Vol]3.5 10*3/uLNormal1.8-7.7FLakeHealth Beachwood Medical CenterComment on above:Performed By: #### BMP, CBC #### [facility] [address] [place] [address] USANeutrophils/100 WBC (Bld)54.8 %Normal.[facility] CenterComment on above:Performed By: #### BMP, CBC #### [place] [address] USANRBC%0.2 /100{WBC}Normal0-0.5FLakeHealth Beachwood Medical CenterComment on above:Performed By: #### BMP, CBC #### [facility] [address] [place] [address] USAPlatelet mean volume (Bld) [Entitic vol]8.8 fLNormal 6.6-10.1FLakeHealth Beachwood Medical CenterComment on above:Performed By: #### BMP, CBC #### [place] [address] USAPlatelets (Bld) [#/Vol]185 10*3/gNFpljld382-329LgbafohczWexner Medical CenterComment on above:Performed By: #### BMP, CBC #### [facility] [address] [place] [address] USARBC (Bld) [#/Vol]4.46 10*6/uLNormal3.90-5.60[facility] CenterComment on above:Performed By: #### BMP, CBC #### [place] [address] USAWBC (Bld) [#/Vol]6.4 10*3/uLNormal4.1-10.5FLakeHealth Beachwood Medical CenterComment on above:Performed By: #### BMP, CBC #### [address] [place] [address] USACreatinine [Mass/volume] in Serum or PlasmaOrdered By: Tisha Cardona on 56-87-8571Zvpjnmzahx [Mass/Vol]0.75 mg/dL0.70-1.30[facility] Medical CenterEosinophils Auto (Bld) [#/Vol]Ordered By: Tisha Cardona on 72-75-4484Xtyrbeyvyrq (Bld) [#/Vol]0.1 10*3/uL0.0-0.45[facility] CenterEosinophils/100 WBC Auto (Bld)Ordered By: Tisha Cardona on 29-49-8555Tcsznupfbso/100 WBC (Bld)1.6 %.[facility] CenterErythrocyte distribution width Auto (RBC) [Ratio]Ordered By: Tisha Cardona on 26-62-3301Qgdwitehpkm distribution width (RBC) [Ratio]14.3 % 12.0-14.8[facility] CenterGlucose [Mass/volume] in Serum or PlasmaOrdered By: Tisha Cardona on 80-03-7117Aufvwhz [Mass/Vol]100 mg/dL 70-100[facility] CenterComment on above:ADA recommended reference rangeRandom Glucose Reference Range is dependent on time and content of last meal. Glucose of more than 200 mg/dL in a nonstressed, ambulatory subject supports the diagnosisof Diabetes Mellitus.Hematocrit Auto (Bld) [Volume fraction]Ordered By: Tisha Cardona on 39-78-9085Kvliglzfph (Bld) [Volume fraction]37.8 %38.8-50.0[facility] CenterHemoglobin [Mass/volume] in BloodOrdered By: Tisha Cardona on 06-16-6720Pugkeuhrbr (Bld) [Mass/Vol]12.2 g/dL13.0-17.0[facility] CenterLeukocytes [#/volume] corrected for nucleated erythrocytes in Blood by Automated coun Ordered By: Tisha Cardona on 07-22-7392CKW corrected for nucl RBC Auto (Bld) [#/Vol]6.4 10*3/uL4.1-10.5FLakeHealth Beachwood Medical CenterLymphocytes Auto (Bld) [#/Vol]Ordered By: Tisha Cardona on 96-84-4241Whwupeoxjyk (Bld) [#/Vol] 2.3 10*3/uL1.00-4.8[facility] CenterLymphocytes/100 WBC Auto (Bld)Ordered By: Tisha Cardona on 19-87-4820Leiszkeueiw/100 WBC (Bld)36.0 %. [facility] CenterMCH Auto (RBC) [Entitic mass]Ordered By: Tisha Cardona on 77-52-5425IRD (RBC) [Entitic mass]27.4 pg27.5-35.2FLakeHealth Beachwood Medical CenterMCHC Auto (RBC) [Mass/Vol]Ordered By: Tisha Cardona on 71-70-6217JALP (RBC) [Mass/Vol]32.3 g/dL32.5-35.6FLakeHealth Beachwood Medical CenterMCV Auto (RBC) [Entitic vol]Ordered By: Tisha Cardona on 13-39-6226FVU (RBC) [Entitic vol]84.9 fL83.5-101[facility] CenterMonocytes Auto (Bld) [#/Vol]Ordered By: Tisha Cardona on 82-00-1022Yddqmdgca (Bld) [#/Vol]0.5 10*3/uL0.0-0.8[facility] CenterMonocytes/100 WBC Auto (Bld)Ordered By: Tisha Cardona on 23-64-4675Kagbaeqgw/100 WBC (Bld)7.3 %. [facility] Medical CenterNeutrophils Auto (Bld) [#/Vol]Ordered By: Tisha Cardona on 09-13-0380Tegmgdoarza (Bld) [#/Vol]3.5 10*3/uL1.8-7.7FLakeHealth Beachwood Medical CenterNeutrophils/100 WBC Auto (Bld)Ordered By: Tisha Cardona on 48-80-9652Qsxbxuykvbh/100 WBC (Bld)54.8 %.[facility] CenterNo Panel InformationOrdered By: Tisha Cardona on 01-09-2023 Estimated GFR (CKD-EPI)> 60.0 mL/MinWexner Medical CenterPharmacy Creatinine Clearance (Uwwr435.10[facility] CenterNucleated erythrocytes [Presence] in Blood by Automated countOrdered By: Tisha Cardona on 41-28-8050Kuuqklrik RBC Auto Ql (Bld)0.2 /100{WBC}0-0.5FLakeHealth Beachwood Medical CenterPlatelet mean volume Auto (Bld) [Entitic vol]Ordered By: Tisha Cardona on 56-92-2041Ybeupigk mean volume (Bld) [Entitic vol]8.8 fL6.6-10.1 [facility] CenterPlatelets Auto (Bld) [#/Vol]Ordered By: Tisha Cardona on 71-42-0177Vymuzcuah (Bld) [#/Vol]185 10*3/pW479-646IxemkqbbdWexner Medical CenterPotassium [Moles/volume] in Serum or PlasmaOrdered By: Tisha Cardona on 30-50-1570Tgklwpfqm [Moles/Vol]3.8 mmol/L3.5-5.1FLakeHealth Beachwood Medical CenterRBC Auto (Bld) [#/Vol]Ordered By: Tisha Cardona on 78-22-4476ZCB (Bld) [#/Vol]4.46 10*6/uL3.90-5.60[facility]. Mary Hospitalerum or plasma anion gap determinationOrdered By: Tisha Cardona on 75-52-0379Rbglx gap [Moles/Vol]9.9 mmol/L6.0-15.0[facility] St. Mary Hospitalodium [Moles/volume] in Serum or PlasmaOrdered By: Tisha Cardona on 95-57-2019Wegvuy [Moles/Vol]139 mmol/Z806-356SmxwtmoqqW[facility]ner Medical Center Urea nitrogen [Mass/volume] in Serum or PlasmaOrdered By: Tisha Cardona on 95-16-8766Cgiq nitrogen [Mass/Vol]12 mg/dL7-25[facility] WBC Auto (Bld) [#/Vol]Ordered By: Tisha Cardona on 42-53-4512RZP (Bld) [#/Vol]6.4 10*3/uL4.1-10.5FLakeHealth Beachwood Medical CenterCT head/brain wo con on 70-83-2262IX head/brain wo [facility] [place] [address] [place] [address] CT Scan Report Signed Patient: Taras Hayward MR#: [id number] 56 : 1970 Acct:[id number] Age/Sex: 52 / M ADM Date: 01/03/23 Loc: Room: 0B7418-7 Type: ADM IN Attending Dr: Srinivas Patricia [...] Harsh Rodriguez M.D.01/08/2023 3:35 PM Dictation Location: [place] [address] Transcribed By: ADELA 01/08/23 1535 Dictated By: Harsh Rodriguez II, MD 01/08/23 1528 Signed By: 01/08/23 1535NormCleveland ClinicAlanine aminotransferase [Enzymatic activity/volume] in Serum or PlasmaOrdered By: Srinivas Patricia on 07-01-4079PGN [Catalytic activity/Vol]18 U/L7-52[facility] CenterAlbumin [Mass/volume] in Serum or Plasma by Bromocresol green (BCG) dye binding methoOrdered By: Srinivas Patricia on 01-69-0830Orworah BCG dye [Mass/Vol]3.4 g/dL3.5-5.7FLakeHealth Beachwood Medical CenterAlkaline phosphatase [Enzymatic activity/volume] in Serum or PlasmaOrdered By: Srinivas Patricia on 59-22-7735TFH [Catalytic activity/Vol]64 U/J72-116YpljsavenWexner Medical CenterAspartate aminotransferase [Enzymatic activity/volume] in Serum or PlasmaOrdered By: Srinivas Patricia on 89-80-0174MUD [Catalytic activity/Vol]19 U/O17-88UqmrpcxlcWexner Medical CenterBilirubin.total [Mass/volume] in Serum or PlasmaOrdered By: Srinivas Patricia on 63-80-8421Xlselqyex [Mass/Vol]0.6 mg/dL0.3-1.0[facility] CenterComplete Blood Count Auto Diffon 74-29-1323Gekwazujb (Bld) [#/Vol]0.0 10*3/uLNormal0.0-0.2FLakeHealth Beachwood Medical CenterComment on above:Result Comment: PERFORMED BY: [facility] [address] [place] [address] PATHOLOGIST LIGHT ADJUSTER DEVANG LEMONS M.D.Performed By: #### CMP, PAB, CBC ####[place] [address] USABasophils/100 WBC (Bld)0.4 %Normal. [facility] CenterComment on above:Performed By: #### CMP, PAB, CBC ####[place] [address] [place] Eosinophils (Bld) [#/Vol]0.1 10*3/uLNormal0.0-0.45[facility] CenterComment on above:Performed By: #### CMP, PAB, CBC ####[place] [address] USAEosinophils/100 WBC (Bld)1.6 % Normal.[facility] CenterComchelsea hospital on above:Performed By: #### CMP, PAB, CBC ####[place] [address] USAErythrocyte distribution width (RBC) [Ratio]14.3 %Mnsjtt12.0-14.8[facility] Medical CenterComchelsea hospital on above:Performed By: #### CMP, PAB, CBC ####[place] [address] [place] Hematocrit (Bld) [Volume fraction]36.7 %Low38.8-50.0[facility] CenterComchelsea hospital on above:Performed By: #### CMP, PAB, CBC ####[place] [address] USAHemoglobin (Bld) [Mass/Vol] 12.0 g/dLLow13.0-17.0[facility] CenterComchelsea hospital on above:Performed By: #### CMP, PAB, CBC ####[place] [address] USALymphocytes (Bld) [#/Vol]2.8 10*3/uLNormal1.00-4.8 [facility] CenterComment on above:Performed By: #### CMP, PAB, CBC ####[place] [id number] [place] Lymphocytes/100 WBC (Bld)33.7 %Normal.[facility] Medical CenterComment on above:Performed By: #### CMP, PAB, CBC ####[place] [id number] [facility] (RBC) [Entitic mass]27.7 pgNormal 27.5-35.2FLakeHealth Beachwood Medical CenterComment on above:Performed By: #### CMP, PAB, CBC ####[address]V (RBC) [Entitic vol]85.1 xZEqsbyj53.5-101[facility] CenterComment on above:Performed By: #### CMP, PAB, CBC ####[place] [address] USAMean Corpuscular HGB Conc32.6 g/tKSiuspu33.5-35.6FLakeHealth Beachwood Medical CenterComment on above:Performed By: #### CMP, PAB, CBC ####[place] [address] USAMonocytes (Bld) [#/Vol]0.8 10*3/uLNormal0.0-0.8 [facility] CenterComment on above:Performed By: #### CMP, PAB, CBC ####[place] [address] [place] Monocytes/100 WBC (Bld)9.3 %Normal.[facility] Medical CenterComment on above:Performed By: #### CMP, PAB, CBC ####[place] [address] USANeutrophils (Bld) [#/Vol]4.5 10*3/uLNormal 1.8-7.7FLakeHealth Beachwood Medical CenterComment on above:Performed By: #### CMP, PAB, CBC ####[place] [address] USANeutrophils/100 WBC (Bld)55.0 %Normal.[facility] Comment on above:Performed By: #### CMP, PAB, CBC ####[address] [address] USANRBC%0.1 /100{WBC}Normal0-0.5 [facility] CenterComment on above:Performed By: #### CMP, PAB, CBC ####[address] [address] [place] Platelet mean volume (Bld) [Entitic vol]8.3 fLNormal6.6-10.1FLakeHealth Beachwood Medical CenterComment on above:Performed By: #### CMP, PAB, CBC ####[address] [address] USAPlatelets (Bld) [#/Vol]259 10*3/uEGcgnpt769-854SximzdmutWexner Medical CenterComment on above:Performed By: #### CMP, PAB, CBC ####[address] [address] USARBC (Bld) [#/Vol]4.32 10*6/uLNormal3.90-5.60 [facility] CenterComment on above:Performed By: #### CMP, PAB, CBC ####[address] [address] USAWBC (Bld) [#/Vol]8.2 10*3/uLNormal4.1-10.5FLakeHealth Beachwood Medical CenterComment on above:Performed By: #### CMP, PAB, CBC ####[address] [address] USAComprehensive Metabolic Panelon 01-04-2023 Albumin [Mass/Vol]3.4 g/dLLow3.5-5.7FLakeHealth Beachwood Medical CenterComment on above:Performed By: #### CMP, PAB, CBC ####[address] [address] USAAlbumin/Globulin [Mass ratio]1.0 {ratio}Normal [facility]ner Medical CenterComment on above:Performed By: #### CMP, PAB, CBC ####[address] [address] USAALP [Catalytic activity/Vol]64 U/YSbhvbr06-248NajzarsmoWexner Medical Center Comment on above:Performed By: #### CMP, PAB, CBC ####[address] [address] USAALT [Catalytic activity/Vol]18 U/L Normal7-52[facility] Medical CenterComment on above:Performed By: #### CMP, PAB, CBC ####[address] [address] USAAnion gap [Moles/Vol]11.4 mmol/LNormal6.0-15.0[facility] Medical CenterComment on above:Performed By: #### PAM, PAB, CBC ####[address] [address] USAAST [Catalytic activity/Vol]19 U/LHjerdx38-55TsuhkwdkpWexner Medical CenterComment on above: Performed By: #### CMP, PAB, CBC ####[address] [address] USABilirubin [Mass/Vol]0.6 mg/dLNormal0.3-1.0[facility] Medical CenterComment on above:Performed By: #### PAM, PAB, CBC ####[address] [address] USACalcium [Mass/Vol]8.7 mg/dLNormal8.6-10.3FLakeHealth Beachwood Medical CenterComment on above:Performed By: #### CMP, PAB, CBC ####[address] [address] USAChloride [Moles/Vol]103 mmol/GOyjskf60-653 [facility] CenterComment on above:Performed By: #### CMP, PAB, CBC ####[address] [address] USACO2 [Moles/Vol]27.3 mmol/HBccaso97.0-31.0[facility] Medical CenterComment on above:Performed By: #### CMP, PAB, CBC ####[address] [place] [address] USACreatinine [Mass/Vol]0.89 mg/dLNormal 0.70-1.30[facility] Medical CenterComment on above:Performed By: #### PAM PAB, CBC ####[place] [address] [place] [address] USACreatinine Clr Calc Eovmuycp052.03NoChillicothe VA Medical CenterComment on above:Performed By: #### PAM PAB, CBC ####[place] [id number] USAGFR/1.73 sq M.predicted MDRD (S/P/Bld) [Vol rate/Area]mL/min/{1.73_m2}[facility] Comment on above:Performed By: #### PAM PAB, CBC ####[place] [address] USAGlobulin (S) [Mass/Vol]3.4 g/dLNormal [facility] Medical CenterComment on above:Performed By: #### PAM PAB, CBC ####[place] [address] [place] Glucose [Mass/Vol]101 mg/fDPatj07-353AyllxiftwWexner Medical CenterComment on above:Result Comment: Random Glucose Reference Range is dependent on time and content of last meal. Glucose of more than 200 mg/dL in a nonstressed, ambulatory subject supports the diagnosis of Diabetes Mellitus. ADA recommended reference rangePerformed By: #### PAM PAB, CBC ####[place] [phone] USAPotassium [Moles/Vol] 3.7 mmol/LNormal3.5-5.1FLakeHealth Beachwood Medical CenterComment on above: Performed By: #### PAM PAB, CBC ####[place] [address] USAProtein [Mass/Vol]6.8 g/dLNormal6.4-8.9[facility] Medical CenterComment on above:Performed By: #### PAM PAB, CBC ####[facility] [address] [place] [address] USASodium [Moles/Vol]138 mmol/NOnzoga778-213PfumynjrqWexner Medical CenterComment on above:Performed By: #### TAHMINA OROZCO, CBC ####[facility] [address] [place] [address] USAUrea nitrogen [Mass/Vol]9 mg/dLNormal01-02 [facility] Medical CenterComment on above:Performed By: #### TAHMINA OROZCO, CBC ####[facility] [address] [place] [address] USAECG 12 lead ECGon 10-28-3656LVO 12 lead ECGPROMEDICA FOSTORIA [facility] [address] [place] [address] Electrocardiograph Report Signed Patient: Taras Hayward MR#: [id number] 56 : 1970 Acct:[id number] Age/Sex: 52 / M ADM Date: 01/03/23 Loc: Room: [address] [place] [address] Type: ADM IN Attending Dr: Srinivas Patricia [...] previous ECGs available Confirmed by CINDY ALCALA [facility] ([id number]) on 01/04/2023 11:58:44 AM Referred By: Electronically Signed By:ROSY CALDWELL MD [facility] Transcribed By: MUS Signed By Bonifacio Caldwell MD 01/04/23 1158ProMedica Memorial HospitalGlobulin Calc (S) [Mass/Vol] Ordered By: Srinivas Patricia on 53-02-8686Gwjmnkqn (S) [Mass/Vol]3.4 g/dLWexner Medical CenterPrealbuminon 53-08-7112Nykfplvpyv [Mass/Vol]12.5 mg/dLLow 17.0-34.0[facility] Medical CenterComment on above:Result Comment: PERFORMED BY: [facility] [address] [place] [address] PATHOLOGIST LIGHT ADJUSTER DEVANG LEMONS M.D.Performed By: #### CMP, PAB, CBC ####[facility] [address] [place] [address] USAPrealbumin [Mass/volume] in Serum or PlasmaOrdered By: Srinivas Patricia on 22-66-0162Nvflsvhkdf [Mass/Vol]12.5 mg/dL 17.0-34.0[facility] Medical CenterProtein [Mass/volume] in Serum or PlasmaOrdered By: Srinivas Patricia on 05-56-3136Ughqoin [Mass/Vol]6.8 g/dL6.4-8.[address] [facility] Hospitalerum or plasma albumin/globulin mass ratio Ordered By: Srinivas Patricia on 57-49-6739Tignjkx/Globulin [Mass ratio]1.0 {ratio} [facility] Medical CenterCovid-19 PCR (CVDTBH)on 31-15-0698OCUF-CoV-2 (COVID-19) RNA JOHN+probe Ql (Unsp spec)Not detectedNormalNOT DETECTEDThe [facility]ot Memorial HospitalComment on above:Result Comment: When diagnostic testing [...] for this test is supported by the Performance Analyst of Health and Human Service's declaration that [...] longer be used).Performed By: #### CVDTBH #### [facility] [address] [place] [address] Dr. Lissa Diaz AND B AGon 35-82-9813CICGCCZNEPRYTSelect Medical Specialty Hospital - Youngstown on above:Result Comment: Negative for Flu A protein angiten. Infection due to Flu A cannot be ruled out. FluA angiten in the sample may be below the detection limit of the test.Performed By: #### INFLUAB #### [facility] [address] [place] [address] Dr. Lissa NoelUBNEGSelect Medical Specialty Hospital - Youngstown on above: Result Comment: Negative for Flu B protein antigen. Infection due to Flu B cannot be ruled out. FluB antigen in the sample may be below the detection limit of the test.Performed By: #### INFLUAB #### [facility] [address] [place] [address] Dr. Lissa Diaz AGNegativeNormalNEGATIVE SEE COMMENTThe [facility] on above:Performed By: #### INFLUAB #### [facility] [address] [place] [address] Dr. Lissa Shirley AGNegativeNormalNEGATIVE SEE COMMENTThe [facility] on above:Performed By: #### INFLUAB #### [facility] [address] [place] [address] Dr. Lissa Arroyo metabolic 2000 panelon 93-43-6371Xhmll gap [Moles/Vol]10 mmol/LNormal9-18[facility] on above:Order Comment: Specimen Type: BLOOD SPECIMENOrdering Facility: [facility] Address:[address] [place] [phone] By: #### 17920-9 ####[facility] LABCLIA [id number] [facility] [place] [address] [place] OF AMERICACalcium [Mass/Vol]8.8 mg/dLNormal 8.5-10.2CMcCullough-Hyde Memorial Hospital on above:Order Comment: Specimen Type: BLOOD SPECIMENOrdering Facility: [facility] Address:[address] [place], [place] [address]Performed By: #### 25690-6 ####[facility] LABCLIA [id number] [place] [address] [place] OF AMERICAChloride [Moles/Vol]104 mmol/ZRvjqlf09-261 [facility] on above:Order Comment: Specimen Type: BLOOD SPECIMENOrdering Facility: [facility] Address:[address] [place], [place] [address]Performed By: #### 79576-7 ####[facility] LABCLIA [id number] [place] [address] [place] AMERICACO2 [Moles/Vol]24 mmol/SQsfowo37-28OzctzogxcAccess Hospital [facility] Comment on above:Order Comment: Specimen Type: BLOOD SPECIMENOrdering Facility: [facility] Address:[address] [place] [address] Performed By: #### 60852-0 ####[facility] LABCLIA [id number] [place] [address] [place] ROSMERY Creatinine [Mass/Vol]0.94 mg/dLNormal0.73-1.22[facility] on above:Order Comment: Specimen Type: BLOOD SPECIMENOrdering Facility: [facility] Address:[address] [place] [address] Performed By: #### 28300-0 ####[facility] LABIA [id number] [place] [address] [place] ROSMERY ESTIMATED GLOMERULAR FILTRATION RATE99 mL/min/1.73m???Normal>=60[facility] on above:Order Comment: Specimen Type: BLOOD SPECIMENOrdering Facility: [facility] Address:[address] [place], [place] [address]Result Comment: Estimated Glomerular Filtration Rate (eGFR) is [...] accurately reflect actual GFR. Performed By: #### 56469-1 ####[facility] LABCLIA [id number] [place] [address] [place] Glucose [Mass/Vol]96 mg/wOHldznx21-98ZrikusvzrGerman Hospital on above: Order Comment: Specimen Type: BLOOD SPECIMENOrdering Facility: [facility] Address:[address] [place], [place] [address]Result Comment: The [place] Diabetes Association (ADA) provides guidance for cutoff [...] Standards of Medical Care in Diabetes 2016, [place] Diabetes Association. Diabetes Care. 2016.39(Suppl 1).Performed By: #### 72718-5 ####[facility] LABCLIA [id number] [place] [id number] [place] OF AMERICAPotassium [Moles/Vol]3.6 mmol/L Low3.7-5.1CMcCullough-Hyde Memorial Hospital on above:Order Comment: Specimen Type: BLOOD SPECIMENOrdering Facility: [facility] Address:[address] [place] [phone] By: #### 40108-6 ####[facility] LABCLIA [id number] [address] [address] [place] OF AMERICASodium [Moles/Vol]138 mmol/NMfgfsn501-722HghsohlqeGerman Hospital on above:Order Comment: Specimen Type: BLOOD SPECIMENOrdering Facility: [facility] Address:[address] [place], [place] [address]Performed By: #### 17258-0 ####[facility] LABCLIA [id number] [place] [address] [place] AMERICAUrea nitrogen [Mass/Vol]14 mg/dLNormal9-24[facility] on above:Order Comment: Specimen Type: BLOOD SPECIMENOrdering Facility: [facility] Address:[address] [place], [place] [address]Performed By: #### 56175-1 ####[facility] LABCLIA [id number] [place] [address] [place] CBC W Auto Differential panel (Bld)on 20-89-8189Qmdppduou (Bld) [#/Vol]10*3/uL Normal<0.11CMcCullough-Hyde Memorial Hospital on above:Order Comment: Specimen Type: BLOOD SPECIMEN Ordering Facility: [facility] Address: [address] [place], [place] [address]Performed By: #### 90343-2 #### [facility] CLIA [id number] [address] [place] [address] [place] AMERICABasophils/100 WBC (Bld)0.1 % NormalGerman Hospital on above:Order Comment: Specimen Type: BLOOD SPECIMEN Ordering Facility: [facility] Address: [address] [place] [address]Performed By: #### 99851-0 #### [facility] CLIA [id number] [address] [place] [address] [place] AMERICADifferential cell count method Nom (Bld)AutoNormalCMcCullough-Hyde Memorial Hospital on above:Order Comment: Specimen Type: BLOOD SPECIMEN Ordering Facility: [facility] Address: [address] [place] [address]Performed By: #### 06211-7 #### [facility] CLIA [id number] [address] [place] [address] [place] AMERICAEosinophils (Bld) [#/Vol] 0.06 10*3/uLNormal<0.46[facility] on above:Order Comment: Specimen Type: BLOOD SPECIMEN Ordering Facility: [facility] Address: [address] [place], [place] [address]Performed By: #### 25322-5 #### [facility] CLIA [id number] [address] [place] [address] [place] AMERICAEosinophils/100 WBC (Bld)0.8 %NormalGerman Hospital on above:Order Comment: Specimen Type: BLOOD SPECIMEN Ordering Facility: [facility] Address: [address] [place], [place] [address]Performed By: #### 49940-9 #### [facility] CLIA [id number] [address] [place] [address] [place] AMERICAErythrocyte distribution width (RBC) [Ratio]14.1 %Miqqer74.5-15.0[facility] on above:Order Comment: Specimen Type: BLOOD SPECIMEN Ordering [facility]: [facility] Address: [address] [place], [place] [address]Performed By: #### 03386-7 #### [facility] CLIA [id number] [address] [place] [address] [place] AMERICAHematocrit (Bld) [Volume fraction]33.6 %Low39.0-51.0[facility] on above:Order Comment: Specimen Type: BLOOD SPECIMEN Ordering Facility: [facility] Address: [address] [place], [place] [address]Performed By: #### 66870-1 #### [facility] CLIA [id number] [address] [place] [address] [place] AMERICAHemoglobin (Bld) [Mass/Vol] 10.9 g/dLLow13.0-17.0[facility] on above:Order Comment: Specimen Type: BLOOD SPECIMEN Ordering [facility]: [facility] Address: [address] [place], [place] [address]Performed By: #### 74227-5 #### [facility] CLIA [id number] [address] [place] [address] [place] AMERICAImmature granulocytes (Bld) [#/Vol]0.04 10*3/uLNormal<0.10[facility] on above:Order Comment: Specimen Type: BLOOD SPECIMEN Ordering [facility]: [facility] Address: [address] [place], [place] [address]Performed By: #### 35480-1 #### [facility] CLIA [id number] [address] [place] [address] [place] AMERICAImmature granulocytes/100 WBC (Bld)0.5 %[facility] on above:Order Comment: Specimen Type: BLOOD SPECIMEN Ordering Facility: [facility] Address: [address] [place], [place] [address]Performed By: #### 11066-5 #### [facility] CLIA [id number] [address] [place] [address] [place] AMERICALymphocytes (Bld) [#/Vol] 2.18 10*3/uLNormal1.00-4.00[facility] on above:Order Comment: Specimen Type: BLOOD SPECIMEN Ordering Facility: [facility] Address: [address] [place], [place] [address]Performed By: #### 83032-4 #### [facility] CLIA [id number] [address] [place] [address] [place] AMERICALymphocytes/100 WBC (Bld) 27.8 %NormalGerman Hospital on above:Order Comment: Specimen Type: BLOOD SPECIMEN Ordering [facility]: [facility] Address: [address] [place], [place] [address]Performed By: #### 76772-6 #### [facility] [place] [id number] [address] [place] [address] (RBC) [Entitic mass]28.5 giDypxwo59.0-34.0[facility] on above:Order Comment: Specimen Type: BLOOD SPECIMEN Ordering [facility]: [facility] Address: [address] [place], [place] [address]Performed By: #### 85047-5 #### [facility] [place] [id number] [address] [place] [address] (RBC) [Mass/Vol]32.4 g/fCVnzkho93.5-36.0[facility] Hospitalment on above:Order Comment: Specimen Type: BLOOD SPECIMEN Ordering [facility]: [facility] Address: [address] [place], [place] [address]Performed By: #### 11863-4 #### [facility] CLIA [id number] [address] [place] [address] (RBC) [Entitic vol]87.7 yNGzlung73.0-100.0[facility] on above:Order Comment: Specimen Type: BLOOD SPECIMEN Ordering Facility: [facility] Address: [address] [place] [phone] By: #### 49131-2 #### [facility] [place] [id number] [address] [place], [place] [address]Monocytes (Bld) [#/Vol]0.79 10*3/uLNormal<0.87[facility] on above:Order Comment: Specimen Type: BLOOD SPECIMEN Ordering Facility: [facility] Address: [address] [place] [address]Performed By: #### 85819-6 #### [facility] CLIA [id number] [address] [address] [place] AMERICAMonocytes/100 WBC (Bld)10.1 %NormalGerman Hospital on above:Order Comment: Specimen Type: BLOOD SPECIMEN Ordering Facility: [facility] Address: [address] [place], [place] [address]Performed By: #### 26837-7 #### [facility] CLIA [id number] [address] [place] [address] [place] AMERICANeutrophils (Bld) [#/Vol] 4.75 10*3/uLNormal1.45-7.50[facility] on above:Order Comment: Specimen Type: BLOOD SPECIMEN Ordering [facility]: [facility] Address: [address] [place], [place] [address]Performed By: #### 62992-1 #### [facility] CLIA [id number] [address] [place] [address] [place] AMERICANeutrophils/100 WBC (Bld) 60.7 %NormalGerman Hospital on above:Order Comment: Specimen Type: BLOOD SPECIMEN Ordering [facility]: [facility] Address: [address] [place], [place] [address]Performed By: #### 41951-1 #### [facility] CLIA [id number] [address] [place] [id number] [place] OF AMERICANucleated RBC (Bld) [#/Vol] 10*3/uLNormal<0.01[facility] on above:Order Comment: Specimen Type: BLOOD SPECIMEN Ordering Facility: [facility] Address: [address] [place] [address]Performed By: #### 85267-0 #### [facility] CLIA [id number] [address] [place] [id number] [place] AMERICANucleated RBC/100 WBC (Bld) [Ratio]0.0 /100 WBCNormalCMcCullough-Hyde Memorial Hospital on above:Order Comment: Specimen Type: BLOOD SPECIMEN Ordering [facility]: [facility] Address: [address] [place], [place] [address]Performed By: #### 51156-6 #### [facility] CLIA [id number] [address] [place] [address] [place] AMERICAPlatelet mean volume (Bld) [Entitic vol]9.6 fLNormal9.0-12.7CMcCullough-Hyde Memorial Hospital on above: Order Comment: Specimen Type: BLOOD SPECIMEN Ordering [facility]: [facility] Address: [address] [place], [place] [address]Performed By: #### 76445-5 #### [facility] CLIA [id number] [address] [place] [address] [place] AMERICAPlatelets (Bld) [#/Vol]189 10*3/mNEoutqr581-837GaqsvfydyGerman Hospital on above:Order Comment: Specimen Type: BLOOD SPECIMEN [facility]ing [facility]: [facility] Address: [address] [place], [place] [address]Performed By: #### 56277-8 #### [facility] CLIA [id number] [address] [place] [address] [place] AMERICARBC (Bld) [#/Vol]3.83 10*6/uLLow4.20-6.00[facility] on above:Order Comment: Specimen Type: BLOOD SPECIMEN [facility]: [facility] Address: [address] [place] [phone] By: #### 23945-0 #### [facility] CLIA [id number] [address] [place] [id number] [place] OF AMERICAWBC (Bld) [#/Vol]7.83 10*3/uLNormal3.70-11.00[facility] on above:Order Comment: Specimen Type: BLOOD SPECIMEN Ordering Facility: [facility] Address: [address] [place] [phone] By: #### 86583-2 #### [facility] CLIA [id number] [address] [facility] [id number] [place] [address] [facility] MEDICAL CENTERCNDSon 81-40-2063AACCVSL ID: [id number] Author: Harsh Coffey MD Service: Urology Author [...] Operations During Hospitalization: PERCUTANEOUS NEPHROLITHOTOMY, STENT CHANGE: 51417 (CPT?) Procedures During Hospitalization: Intubation Hospital Course: [...] Coffey MD, FACS Director, Surgical Stone Disease, [facility] [place] [employer], [facility] [employer] Pager [phone] 05/24/2022NormalCCommunity Memorial HospitalCULTURE URINEon 71-34-5954MNYFKEC URINECulture Observations: NO GROWTH.NormalSelect Medical Cleveland Clinic Rehabilitation Hospital, BeachwoodComment on above:Performed By: #### INFLUAB #### [facility] [address] [place] [address] [address] Lissa Birch URINE PROFILEon 23-68-1848Wjwqodlws Ql (U)SMALLAbnormal NEGATIVESelect Medical Cleveland Clinic Rehabilitation Hospital, BeachwoodComment on above:Performed By: #### ERUR, UMICRO #### [facility] [address] [place] [address] [address] Lissa SageClarity (U)CLOUDYAbnormalCLEARThe [facility] Memorial HospitalComment on above:Performed By: #### ERUR, UMICRO #### [facility] [address] [place] [address] Dr. Lissa Maria (U)BROWNAbnormalYELLOWSelect Medical Cleveland Clinic Rehabilitation Hospital, BeachwoodComment on above:Performed By: #### ERUR, UMICRO #### [facility] [address] [place] [address] Dr. Lissa PollockKATHLEEN micrscopic examination will be performed if indicated. NormalSelect Medical Cleveland Clinic Rehabilitation Hospital, BeachwoodComment on above:Performed By: #### ERUR, UMICRO #### [facility] [address] [place] [address] Dr. Lissa SageGlucose Ql (U)NegativeNormalNEGATIVESelect Medical [facility] Rehabilitation Hospital, BeachwoodComment on above:Performed By: #### ERUR, UMICRO #### [facility] [address] [place] [address] Dr. Lissa SageHemoglobin Ql (U)LARGEAbnormalNEGATIVESouthview Medical Center on above:Performed By: #### ERUR, UMICRO #### [facility] [address] [place] [address] Dr. Lissa SageKetones Ql (U)NegativeNormalNEGATIVESelect Medical [facility] Hospital, BeachwoodComment on above:Performed By: #### ERUR, UMICRO #### [facility] [address] [place] [address] Dr. Lissa SageLEUKOCYTESSMALLAbnormalNEGATIVEThe Terra HospitalComment on above:Performed By: #### MARY UMICRO #### [facility] [address] [place] [address] [address] Lissa Narayanan Ql (U)PositiveAbnormalNEGATIVEThe [facility] on above:Performed By: #### MARY UMICRO #### [facility] [address] [place] [address] [address] Lissa SagepH (U)6.5 [pH]Normal5-9The [facility] HospitalComment on above: Performed By: #### MARY UMICRO #### [facility] [address] [place] [address] [address] Lissa SageSPEC GRAVITY1.518Yaexyl6.005-<=1.025[facility] on above:Performed By: #### MARY UMICRO #### [facility] [address] [place] [address] [address] Lissa Guerra PROTEIN>300AbnormalNEGATIVE/ TRACEThe [facility] Memorial HospitalComment on above:Performed By: #### MARY UMICRO #### [facility] [address] [place] [address] [address] Lissa Trivedi MICRO INDINDICATEDCleveland Clinic Children's Hospital for Rehabilitation on above: Performed By: #### MARY UMICRO #### [facility] [address] [place] [address] [address] Lissa Michaudbilinogen Qn (U)0.2 {Gurpreet'U}/dLNormal0.2 - 1.0The [facility] Regional Medical Centerment on above:Performed By: #### MARY UMICRO #### [facility] [address] [place] [address] [address] Lissa Rocha MICROSCOPIC ONLYon 77-85-6467WVBXGCLTNTOPYGssjncpaMCIT SEEN The [facility] HospitalComchelsea hospital on above:Performed By: #### MARY UMICRO #### [facility] [address] [place] [address] [address] Lissa Jacinto identified Cx Nom (U)INDICATEDGrant Hospitalchelsea hospital on above:Performed By: #### ERUR, UMICRO #### [facility] [address] [place] [address] [address] Lissa Burns SEENNormalNONE SEENSelect Medical [facility] Clinic Rehabilitation Hospital, BeachwoodComchelsea hospital on above:Performed By: #### ERUR, UMICRO #### [facility] [address] [place] [address] [address] Lissa Vigil LM Nom (Urine sed)NONE SEENNormalNONE SEENSelect Medical [facility] Clinic Rehabilitation Hospital, BeachwoodComchelsea hospital on above:Performed By: #### ERUR, UMICRO #### [facility] [address] [place] [address] [address] Lissa Palmapithelial cells LM Ql (Urine sed)RARENormalNONE SEEN /RARESelect Medical [facility]Com[facility] on above:Performed By: #### ERUShannon, UMICRO #### [facility] [address] [address] [address] Lissa StephensACEAbnormalNONE SEENMarymount Hospital on above:Performed By: #### ERUShannon, UMICRO #### [facility] [address] [address] [address] Lissa Padilla (U) [#/Vol]/uLAbnormal0-2[facility] on above:Performed By: #### ERUShannon, UMICRO #### [facility] [address] [address] [address] Lissa SolisDifkpGIS25-43JkgvwimvXGUK SEENMarymount Hospital on above: Performed By: #### ERUR, UMICRO #### [facility] [address] [address] [address] Lissa Arroyo metabolic 2000 panelon 10-09-6186Twfmj gap [Moles/Vol]12 mmol/LNormal9-18[facility] on above:Order Comment: Specimen Type: BLOOD SPECIMEN Ordering Facility: [facility] Address: [address] [place] [phone] By: #### 04306-6 #### [facility] CLIA [id number] [address] [place] [address] [place] OF AMERICACalcium [Mass/Vol]9.0 mg/dL Normal8.5-10.2CMcCullough-Hyde [facility] on above:Order Comment: Specimen Type: BLOOD SPECIMEN Ordering Facility: [facility] Address: [address] [place], [place] [address]Performed By: #### 84684-0 #### [facility] CLIA [id number] [address] [place] [address] [place] OF AMERICAChloride [Moles/Vol]103 mmol/MKpoese95-950CjdkveuqeGerman Hospital on above:Order Comment: Specimen Type: BLOOD SPECIMEN Ordering Facility: [facility] Address: [address] [place], [place] [address]Performed By: #### 34407-2 #### [facility] CLIA [id number] [address] [place] [address] [place] AMERICACO2 [Moles/Vol]21 mmol/LLow 22-30[facility] on above:Order Comment: Specimen Type: BLOOD SPECIMEN Ordering Facility: [facility] Address: [address] [place] [address]Performed By: #### 78552-3 #### [facility] CLIA [id number] [address] [place] [address] [place] AMERICACreatinine [Mass/Vol]0.97 mg/dLNormal0.73-1.22[facility] on above:Order Comment: Specimen Type: BLOOD SPECIMEN Ordering Facility: [facility] Address: [address] [place] [address]Performed By: #### 54800-6 #### [facility] CLIA [id number] [address] [id number] [place] OF AMERICAESTIMATED GLOMERULAR FILTRATION RATE96 mL/min/1.73m???Normal>=60[facility] on above:Order Comment: Specimen Type: BLOOD SPECIMEN Ordering Facility: [facility] Address: [address] [place], [place] [address]Result Comment: Estimated Glomerular Filtration Rate (eGFR) is [...] not accurately reflect actual GFR.Performed By: #### 78890-6 #### [facility] CLIA [id number] [address] [place] [address] [place] AMERICAGlucose [Mass/Vol]144 mg/dL Hacn66-73UuirbsfxeGerman Hospital on above:Order Comment: Specimen Type: BLOOD SPECIMEN Ordering Facility: [facility] Address: [address] [place], [place] [address]Result Comment: The [place] Diabetes Association (ADA) provides guidance for cutoff [...] Standards of Medical Care in Diabetes 2016, [place] Diabetes Association. Diabetes Care. 2016.39(Suppl 1).Performed By: #### 45306-2 #### [facility] CLIA [id number] [address] [place], [place] [address] [place] OF AMERICAPotassium [Moles/Vol]4.6 mmol/LNormal3.7-5.1CMcCullough-Hyde Memorial Hospital on above:Order Comment: Specimen Type: BLOOD SPECIMEN Ordering Facility: [facility] Address: [address] [place] [address], [place] [address]Dtjtuxkbj By: #### 50587-2 #### [facility] CLIA [id number] [address] [id number] [place] OF AMERICASodium [Moles/Vol]136 mmol/L Ticpwh134-716BzzipxfdiGerman Hospital on above:Order Comment: Specimen Type: BLOOD SPECIMEN Ordering Facility: [facility] Address: [address] [address]Performed By: #### 74181-1 #### [facility] CLIA [id number] [address] [place] [address] [place] AMERICAUrea nitrogen [Mass/Vol]16 mg/dLNormal9-24[facility] on above:Order Comment: Specimen Type: BLOOD SPECIMEN Ordering Facility: [facility] Address: [address] [place] [address]Performed By: #### 76492-8 #### [facility] CLIA [id number] [address] [place] [address] [place] AMERICACB W Auto Differential panel (Bld)on 52-66-4227Icjaqlppj (Bld) [#/Vol]10*3/uLNormal<0.11CMcCullough-Hyde [facility] on above:Order Comment: Specimen Type: BLOOD SPECIMEN Ordering Facility: [facility] Address: [address] [place] [address]Tlecngfjo By: #### 45245-7 #### [facility] CLIA [id number] [address] [id number] [place] AMERICABasophils/100 WBC (Bld)0.2 % NormalGerman Hospital on above:Order Comment: Specimen Type: BLOOD SPECIMEN Ordering Facility: [facility] Address: [address] [place] [phone] By: #### 32140-5 #### [facility] CLIA [id number] [address] [place] [address] [place] AMERICADifferential cell count method Nom (Bld)AutoNormalClevelOhioHealth Van Wert Hospital on above:Order Comment: Specimen Type: BLOOD SPECIMEN Ordering Facility: [facility] Address: [address] [place], [place] [address]Performed By: #### 59303-0 #### [facility] CLIA [id number] [facility] [place] [address] [place] AMERICAEosinophils (Bld) [#/Vol] 10*3/uLNormal<0.46[facility] on above:Order Comment: Specimen Type: BLOOD SPECIMEN Ordering Facility: [facility] Address: [address] [place], [place] [address]Performed By: #### 41647-6 #### [facility] CLIA [id number] [address] [place] [address] [place] AMERICAEosinophils/100 WBC (Bld)0.1 %NormalGerman Hospital on above:Order Comment: Specimen Type: BLOOD SPECIMEN Ordering Facility: [facility] Address: [address] [place], [place] [address]Performed By: #### 97091-0 #### [facility] CLIA [id number] [address] [place] [address] [place] AMERICAErythrocyte distribution width (RBC) [Ratio]13.9 %Bodtns40.5-15.0[facility] on above:Order Comment: Specimen Type: BLOOD SPECIMEN Ordering Facility: [facility] Address: [address] [place], [place] [address]Performed By: #### 81102-6 #### [facility] CLIA [id number] [address] [place] [address] [place] AMERICAHematocrit (Bld) [Volume fraction]37.7 %Low39.0-51.0[facility] on above:Order Comment: Specimen Type: BLOOD SPECIMEN Ordering Facility: [facility] Address: [address] [place], [place] [address]Performed By: #### 21496-6 #### [facility] CLIA [id number] [address] [place] [address] [place] AMERICAHemoglobin (Bld) [Mass/Vol] 12.2 g/dLLow13.0-17.0[facility] on above:Order Comment: Specimen Type: BLOOD SPECIMEN Ordering Facility: [facility] Address: [address] [place], [place] [address]Performed By: #### 76831-5 #### [facility] CLIA [id number] [address] [place] [address] [place] AMERICAImmature granulocytes (Bld) [#/Vol]0.08 10*3/uLNormal<0.10[facility] on above:Order Comment: Specimen Type: BLOOD SPECIMEN Ordering Facility: [facility] Address: [address] [place], [place] [address]Performed By: #### 60840-0 #### [facility] CLIA [id number] [address] [place] [address] [place] AMERICAImmature granulocytes/100 WBC (Bld)0.7 %NormalGerman Hospital on above:Order Comment: Specimen Type: BLOOD SPECIMEN Ordering Facility: [facility] Address: [address] [place] [phone] By: #### 88321-4 #### [facility] CLIA [id number] [address] [place] [address] [place] OF AMERICALymphocytes (Bld) [#/Vol] 1.17 10*3/uLNormal1.00-4.00[facility] on above:Order Comment: Specimen Type: BLOOD SPECIMEN Ordering Facility: [facility] Address: [address] [place] [address]Performed By: #### 66020-6 #### [facility] CLIA [id number] [address] [place] [address] [place] [facility]DS[facility] RIVER PSYCHIATRIC CENTERLymphocytes/100 WBC (Bld)9.7 %NormalGerman Hospital on above:Order Comment: Specimen Type: BLOOD SPECIMEN Ordering Facility: [facility] Address: [address] [place] [address]Performed By: #### 61562-2 #### [facility] CLIA [id number] [address] [place] [address] [place] OF [facility]ANCHH (RBC) [Entitic mass]28.3 uxFdsltv60.0-34.0[facility] on above:Order Comment: Specimen Type: BLOOD SPECIMEN Ordering Facility: [facility] Address: [address] [place] [address]Performed By: #### 45113-7 #### [facility] CLIA [id number] [address] [place] [address] UNITED [facility] HOSPITALMCHC (RBC) [Mass/Vol]32.4 g/aJLuaabe01.5-36.0[facility] on above:Order Comment: Specimen Type: BLOOD SPECIMEN Ordering Facility: [facility] Address: [address] [place] [phone] By: #### 10152-6 #### [facility] CLIA [id number] [address] [id number] [place] [facility] CENTERV (RBC) [Entitic vol]87.5 sFWnguzh03.0-100.0[facility] on above:Order Comment: Specimen Type: BLOOD SPECIMEN Ordering Facility: [facility] Address: [address] [place] [address]Performed By: #### 97718-7 #### [facility] CLIA [id number] [address] [place] [address] [place] AMERICAMonocytes (Bld) [#/Vol]0.93 10*3/uLHigh<0.87[facility] on above:Order Comment: Specimen Type: BLOOD SPECIMEN Ordering Facility: [facility] Address: [address] [place], [place] [address]Performed By: #### 78412-4 #### [facility] CLIA [id number] [address] [place] [address] [place] AMERICAMonocytes/100 WBC (Bld)7.7 % NormalGerman Hospital on above:Order Comment: Specimen Type: BLOOD SPECIMEN Ordering Facility: [facility] Address: [address] [place], [place] [address]Performed By: #### 74979-5 #### [facility] CLIA [id number] [address] [place] [address] [place] AMERICANeutrophils (Bld) [#/Vol] 9.87 10*3/uLHigh1.45-7.50[facility] on above:Order Comment: Specimen Type: BLOOD SPECIMEN Ordering Facility: [facility] Address: [address] [place], [place] [address]Performed By: #### 26840-6 #### [facility] CLIA [id number] [address] [place] [address] [place] AMERICANeutrophils/100 WBC (Bld) 81.6 %NormalGerman Hospital on above:Order Comment: Specimen Type: BLOOD SPECIMEN Ordering Facility: [facility] Address: [address] [place] [phone] By: #### 12876-6 #### [facility] CLIA [id number] [address] [place] [address] [place] AMERICANucleated RBC (Bld) [#/Vol] 10*3/uLNormal<0.01[facility] on above:Order Comment: Specimen Type: BLOOD SPECIMEN Ordering Facility: [facility] Address: [address] [place] [phone] By: #### 54061-3 #### [facility] CLIA [id number] [address] [place] [address] [place] AMERICANucleated RBC/100 WBC (Bld) [Ratio]0.0 /100 WBCNormalCMcCullough-Hyde Memorial Hospital on above:Order Comment: Specimen Type: BLOOD SPECIMEN Ordering Facility: [facility] Address: [address] [place] [address]Performed By: #### 26150-1 #### [facility] CLIA [id number] [address] [place] [address] [place] AMERICAPlatelet mean volume (Bld) [Entitic vol]9.2 fLNormal9.0-12.7CMcCullough-Hyde [facility] on above: Order Comment: Specimen Type: BLOOD SPECIMEN Ordering Facility: [facility] Address: [address] [place] [phone] By: #### 73713-6 #### [facility] CLIA [id number] [address] [place], [place] [address] [place] AMERICAPlatelets (Bld) [#/Vol]234 10*3/cQKvwzvt245-363JxfikfqfkGerman Hospital on above:Order Comment: Specimen Type: BLOOD SPECIMEN Ordering Facility: [facility] Address: [address] [place] [phone] By: #### 37182-5 #### [facility] CLIA [id number] [address] [place], [place] [address] [place] OF AMERICARBC (Bld) [#/Vol]4.31 10*6/uLNormal4.20-6.00[facility] on above:Order Comment: Specimen Type: BLOOD SPECIMEN Ordering Facility: [facility] Address: [address] [place] [phone] By: #### 96388-6 #### [facility] CLIA [id number] [address] [facility] [place] [id number] [place] OF AMERICAWBC (Bld) [#/Vol]12 10*3/uLHigh3.70-11.00[facility] Hospital DaytonComment on above:Order Comment: Specimen Type: BLOOD SPECIMEN Ordering Facility: [facility] Address: [address] [place], [place] [address]Performed By: #### 74347-6 #### [facility] CLIA [id number] [address] [facility] [place] [id number] [place] OF AMERICANURSING PROGon 05-23-2022 NURSING PROGHNO ID: [id number] Author: Kaitlin Keane RN Service: ? Author Type: Registered Nurse Type: Nursing Progress Note Filed: 05/23/2022 6:12 PM Note Text: Nursing Progress Note Topic of Note: Daily Note Taras Hayward [id number] 0930: kramer emptied fro 900cc bloody urine. 1249: noted only 50cc bloddy urine in kramer bag. Pt denies any pressure or pain. Dr coffey at bedside, made aware of output. Dr coffey advised to do serial urines. Informed patient to keep drinking and walking. 1417: no urine noted in drainage bag. Notified [address]. Pt denies pressure or pain. Noted feeling pressure when sat to have a BM. No bm and pressure gone when pt got back to bed. 1447: bladder scanned for 245cc. 1500: Елена PIT STEWARD to bedside to irrigate, no clots noted but urnie began flowing. Will monitor. 1720:no urine output since 1500, pt becoming uncomfortable, encouaged to walk, no output, so bladder scanned for 127cc. 1745: spoke with Елена ACOSTA, ok to irrigate. 1800:irrigated with 100cc, with immediate return for a total of 900cc, pt with much relief. This note was completed by: K[facility]lin [facility] ANES POSTPROC EVALon [id number] POSTPROC EVALHNO ID: [id number] Author: Chapo Alcala DO Service: ? Author Type: Anesthesiologist Type: Anesthesia Postprocedure Evaluation Filed: 05/22/2022 4:18 PM Note Text: POST ANESTHESIA EVALUATION NOTE : 1970 Procedure Summary Date: 05/22/22 Room / Location: [address] [facility] Anesthesia Start: 1328 Anesthesia [...] May 22, 2022 TIME: 4:16 PM CSN: [id number] [facility] PRE-OPon [id number] PRE-OPHNO ID: [id number] Author: Chapo Alcala DO Service: ? Author Type: Anesthesiologist Type: Anesthesia Preprocedure Evaluation Filed: 05/22/2022 12:55 PM Note Text: ANESTHESIOLOGY DAY OF SURGERY NOTE : 1970 Procedure Information Date/Time: 05/22/22 1248 Procedure: PERCUTANEOUS NEPHROLITHOTOMY (Right: Kidney) Location: [address] [facility] Surgeons: Harsh Coffey MD [...] and consent discussed: yes. Patient / Responsible Republican agrees to proceed: yes Patient / Surrogate [...] afterwards, # 2 tab(s), Refills(s) 0, Pharmacy: [facility]/pharmacy #[id number] Start Date: 08/22/19 Status: Ordered [...] May 22, 2022 TIME: 12:55 PM CSN: [id number] Health OP NOTon [id number] OP NOTHNO ID: [id number] Author: Tejinder Quezada MD Service: Radiology Author Type: Physician Type: Brief Op Note Filed: 05/22/2022 10:29 AM Note Text: OPERATIVE/PROCEDURE REPORT LOG ID: [id number] SURGERY/PROCEDURE DATE: 05/22/2022 INCISION/PROCEDURE START TIME: 8:33 AM INCISION CLOSE/PROCEDURE END TIME: 10:13 AM SURGEON(S)/PROCEDURALIST(S) AND [employer](S): Surgeon(s) and Role: * Tejinder Quezada MD [...] [place] DATE: May 22, 2022 TIME: 10:22 AMNormalAccess Hospital DaytonBacteria Ur Culton 05-22-2022 Bacteria identified Cx Nom (U)CULTURE, URINE: No growth (<100 CFU/ml)NormalGerman Hospital on above: Performed By: #### 630-4 ####[facility] [id number] [place] [address] [place] OF AMERICABasic metabolic 2000 panelon 60-89-0336Wovrx gap [Moles/Vol]12 mmol/LNormal9-18 [facility] on above:Order Comment: Specimen Type: BLOOD SPECIMENOrdering Facility: [facility] Address:[address] [place] [phone] By: #### 81639-0 ####[facility] [id number] [place] [address] [place] AMERICACalcium [Mass/Vol]8.8 mg/dLNormal8.5-10.2CMcCullough-Hyde Memorial Hospital on above:Order Comment: Specimen Type: BLOOD SPECIMENOrdering Facility: [facility] Address:[address] [place], [place] [address]Performed By: #### 41396-6 ####[facility] [id number] [place] [address] [place] ROSMERY Chloride [Moles/Vol]105 mmol/CQbxpob63-569LtfxxkptoGerman Hospital on above:Order Comment: Specimen Type: BLOOD SPECIMENOrdering Facility: [facility] Address:[address] [place], [place] [address]Performed By: #### 94070-8 ####[facility] [id number] [place] [address] [place] AMERICACO2 [Moles/Vol]22 mmol/HTiejcb67-99CarmsrhrtGerman Hospital on above:Order Comment: Specimen Type: BLOOD SPECIMENOrdering Facility: [facility] Address:[address] [place], [place] [address]Performed By: #### 41792-8 ####[facility] [id number] [place] [address] [place] AMERICACreatinine [Mass/Vol]1.02 mg/dL Normal0.73-1.22[facility] on above:Order Comment: Specimen Type: BLOOD SPECIMENOrdering Facility: [facility] Address:[address] [place], [place] [address]Performed By: #### 52280-5 ####[facility] [id number] [place] [address] [place] AMERICAESTIMATED GLOMERULAR FILTRATION RATE90 mL/min/1.73m???Normal>=60[facility] on above:Order Comment: Specimen Type: BLOOD SPECIMENOrdering Facility: [facility] Address:[address] [place], [place] [address]Result Comment: Estimated Glomerular Filtration Rate (eGFR) is [...] not accurately reflect actual GFR.Performed By: #### 82106-0 ####[facility]IA [id number] [address] [address] [place] AMERICAGlucose [Mass/Vol]143 mg/dLHigh 74-99[facility] on above:Order Comment: Specimen Type: BLOOD SPECIMENOrdering Facility: [facility] Address:[address] [place] [address]Gpzlej Comment: The [place] Diabetes Association (ADA) provides guidance for cutoff [...] Standards of Medical Care in Diabetes 2016, [place] [employer] Association. Diabetes Care. 2016.39(Suppl 1).Performed By: #### 96236-0 ####[facility] [id number] [place] [id number] [place] AMERICAPotassium [Moles/Vol]4.4 mmol/L Normal3.7-5.1CMcCullough-Hyde Memorial Hospital on above:Order Comment: Specimen Type: BLOOD SPECIMENOrdering Facility: [facility] Address:[address] [place] [address]Xdubyphkt By: #### 03937-1 ####[facility] [id number] [address] [address] [place] AMERICASodium [Moles/Vol]139 mmol/TTcewju178-585MidtfdnljGerman Hospital on above:Order Comment: Specimen Type: BLOOD SPECIMENOrdering Facility: [facility] Address:[address] [place], [place] [address]Performed By: #### 12501-7 ####[facility] [id number] [place] [address] [place] AMERICAUrea nitrogen [Mass/Vol]17 mg/dLNormal9-24[facility] on above:Order Comment: Specimen Type: BLOOD SPECIMENOrdering Facility: [facility] Address:[address] [place], [place] [address]Performed By: #### 95125-7 ####[facility] [id number] [place] [address] [place] ROSMERY CALCULI ANALYSISon 61-43-7371Vyoryhnj analysis [Interp]NormalGerman Hospital on above:Order Comment: Specimen Type: BLOOD SPECIMEN Ordering Facility: [facility] Address: [address] [place], [place] [address]Result Comment: This test was developed and its performance characteristics determined by [facility] [place] (-[facility]). It has not been cleared or approved by the FDA. -[facility] is regulated under CLIA as qualified to perform high-complexity testing. This test is used for clinical purposes. It should not be regarded as investigational orfor research.Performed By: #### 33030-8 #### [facility] CLIA [id number] [address] [place] [address] [place] AMERICACALCULUS COLORBROWN AND BEIGENormalGerman Hospital on above:Order Comment: Specimen Type: BLOOD SPECIMEN Ordering Facility: [facility] Address: [address] [place], [place] [address]Performed By: #### 56809-3 #### [facility] CLIA [id number] [address] [place] [address] [place] AMERICACALCULUS COMPOSITION 160% Calcium PhosphateNormalCleveland Clinic ClevelandComment on above:Order Comment: Specimen Type: BLOOD SPECIMEN Ordering Facility: [facility] Address: [address] [place], [place] [address]Performed By: #### 20053-3 #### [facility] CLIA [id number] [address] [place] [address] [place] AMERICACALCULUS COMPOSITION 230% Calcium Oxalate MonohydrateNormalGerman Hospital on above: Order Comment: Specimen Type: BLOOD SPECIMEN Ordering Facility: [facility] Address: [address] [place], [place] [address]Performed By: #### 47832-7 #### [facility] CLIA [id number] [address] [place] [address] [place] AMERICACALCULUS COMPOSITION 310% Minor ComponentsNormalCMcCullough-Hyde Memorial Hospital on above:Order Comment: Specimen Type: BLOOD SPECIMEN Ordering Facility: [facility] Address: [address] [place], [place] [address]Performed By: #### 65736-1 #### [facility] CLIA [id number] [address] [place] [address] [place] AMERICACALCULUS SIZE AND WTMultiple pieces. 0.4795 GRAMSNormalCMcCullough-Hyde Memorial Hospital on above:Order Comment: Specimen Type: BLOOD SPECIMEN Ordering Facility: [facility] Address: [address] [place] [address]Performed By: #### 07704-3 #### [facility] CLIA [id number] [address] [place] [address] [place] OF AMERICACALCULUS TYPECalculus, CALCULI/CALCULUSNormalCMcCullough-Hyde Memorial Hospital on above:Order Comment: Specimen Type: BLOOD SPECIMEN Ordering Facility: [facility] Address: [address] [place], [place] [address]Performed By: #### 55671-9 #### [facility] CLIA [id number] [address] [place] [address] [place] AMERICACB W Auto Differential panel (Bld)on 18-94-6124Wxnowycgr (Bld) [#/Vol]10*3/uLNormal<0.11CMcCullough-Hyde Memorial Hospital on above:Order Comment: Specimen Type: BLOOD SPECIMEN Ordering Facility: [facility] Address: [address] [place], [place] [address]Performed By: #### 82293-1 #### [facility] CLIA [id number] [address] [place] [address] [place] AMERICABasophils/100 WBC (Bld)0.2 % NormalGerman Hospital on above:Order Comment: Specimen Type: BLOOD SPECIMEN Ordering Facility: [facility] Address: [address] [place], [place] [address]Performed By: #### 37510-8 #### [facility] CLIA [id number] [address] [place] [address] [place] AMERICADifferential cell count method Nom (Bld)AutoNormalClevelOhioHealth Van Wert Hospital on above:Order Comment: Specimen Type: BLOOD SPECIMEN Ordering Facility: [facility] Address: [address] [place], [place] [address]Performed By: #### 11341-1 #### [facility] CLIA [id number] [address] [place] [address] [place] AMERICAEosinophils (Bld) [#/Vol] 10*3/uLNormal<0.46[facility] on above:Order Comment: Specimen Type: BLOOD SPECIMEN Ordering Facility: [facility] Address: [address] [place], [place] [address]Performed By: #### 33929-3 #### [facility] CLIA [id number] [address] [place] [address] [place] AMERICAEosinophils/100 WBC (Bld)0.0 %NormalGerman Hospital on above:Order Comment: Specimen Type: BLOOD SPECIMEN Ordering Facility: [facility] Address: [address] [place], [place] [address]Performed By: #### 08338-3 #### [facility] IA [id number] [address] [place] [address] [place] AMERICAErythrocyte distribution width (RBC) [Ratio]14.2 %Smowgc18.5-15.0[facility] on above:Order Comment: Specimen Type: BLOOD SPECIMEN Ordering Facility: [facility] Address: [address] [place], [place] [address]Performed By: #### 85537-2 #### [facility] IA [id number] [address] [place] [address] [place] AMERICAHematocrit (Bld) [Volume fraction]44.1 %Ceortm10.0-51.0[facility] on above:Order Comment: Specimen Type: BLOOD SPECIMEN Ordering Facility: [facility] Address: [address] [place], [place] [address]Performed By: #### 60341-1 #### [facility] IA [id number] [address] [place] [address] [place] AMERICAHemoglobin (Bld) [Mass/Vol] 13.9 g/qQGtfwam09.0-17.0[facility] on above:Order Comment: Specimen Type: BLOOD SPECIMEN Ordering Facility: [facility] Address: [address] [place], [place] [address]Performed By: #### 62360-8 #### [facility] IA [id number] [address] [place] [address] [place] AMERICAImmature granulocytes (Bld) [#/Vol]0.06 10*3/uLNormal<0.10[facility] on above:Order Comment: Specimen Type: BLOOD SPECIMEN Ordering Facility: [facility] Address: [address] [place] [address]Performed By: #### 93152-2 #### [facility] CLIA [id number] [address] [place] [address] [place] AMERICAImmature granulocytes/100 WBC (Bld)0.5 %NormalGerman Hospital on above:Order Comment: Specimen Type: BLOOD SPECIMEN Ordering Facility: [facility] Address: [address]Performed By: #### 68594-0 #### [facility] CLIA [id number] [address] [place] [address] [place] OF AMERICALymphocytes (Bld) [#/Vol] 0.77 10*3/uLLow1.00-4.00[facility] on above:Order Comment: Specimen Type: BLOOD SPECIMEN Ordering Facility: [facility] Address: [address]Performed By: #### 69289-4 #### [facility] IA [id number] [address] [place] [address] [place] AMERICALymphocytes/100 WBC (Bld)6.5 %NormalGerman Hospital on above:Order Comment: Specimen Type: BLOOD SPECIMEN Ordering Facility: [facility] Address: [address] [place], [place] [address]Performed By: #### 02712-8 #### [facility] CLIA [id number] [address] [place] [address] [place] AMERICAMC (RBC) [Entitic mass]28.2 mlYmvgek10.0-34.0[facility] on above:Order Comment: Specimen Type: BLOOD SPECIMEN Ordering Facility: [facility] Address: [address] [place], [place] [address]Performed By: #### 28495-5 #### [facility] CLIA [id number] [address] OF [facility] HOSPITALMCHC (RBC) [Mass/Vol]31.5 g/eVUssxhl58.5-36.0[facility] on above:Order Comment: Specimen Type: BLOOD SPECIMEN Ordering Facility: [facility] Address: [address] [place], [place] [address]Performed By: #### 53406-5 #### [facility] CLIA [id number] [address]V (RBC) [Entitic vol]89.5 dBQsiyhp77.0-100.0[facility] on above:Order Comment: Specimen Type: BLOOD SPECIMEN Ordering Facility: [facility] Address: [address] [place], [place] [address]Performed By: #### 02271-5 #### [facility] CLIA [id number] [address] [place] [address] [place] AMERICAMonocytes (Bld) [#/Vol]0.45 10*3/uLNormal<0.87[facility] on above:Order Comment: Specimen Type: BLOOD SPECIMEN Ordering Facility: [facility] Address: [address] [place], [place] [address]Performed By: #### 09393-0 #### [facility] CLIA [id number] [address] [place] [address] [place] AMERICAMonocytes/100 WBC (Bld)3.8 % NormalGerman Hospital on above:Order Comment: Specimen Type: BLOOD SPECIMEN Ordering Facility: [facility] Address: [address] [place], [place] [address]Performed By: #### 01049-5 #### [facility] CLIA [id number] [address] [place] [address] [place] AMERICANeutrophils (Bld) [#/Vol] 10.49 10*3/uLHigh1.45-7.50[facility] on above:Order Comment: Specimen Type: BLOOD SPECIMEN Ordering Facility: [facility] Address: [address] [place], [place] [address]Performed By: #### 49327-6 #### [facility] CLIA [id number] [address] [place] [address] [place] AMERICANeutrophils/100 WBC (Bld) 89.0 %NormalGerman Hospital on above:Order Comment: Specimen Type: BLOOD SPECIMEN Ordering Facility: [facility] Address: [address] [place], [place] [address]Performed By: #### 74618-1 #### [facility] CLIA [id number] [address] [place] [address] [place] AMERICANucleated RBC (Bld) [#/Vol] 10*3/uLNormal<0.01[facility] on above:Order Comment: Specimen Type: BLOOD SPECIMEN Ordering Facility: [facility] Address: [address] [place], [place] [address]Performed By: #### 86140-0 #### [facility] CLIA [id number] [address] [place] [address] [place] AMERICANucleated RBC/100 WBC (Bld) [Ratio]0.0 /100 WBCNormalCMcCullough-Hyde Memorial Hospital on above:Order Comment: Specimen Type: BLOOD SPECIMEN Ordering Facility: [facility] Address: [address] [place] [id number] By: #### 64644-6 #### [facility] CLIA [id number] [address] [place] [address] [place] AMERICAPlatelet mean volume (Bld) [Entitic vol]9.3 fLNormal9.0-12.7CMcCullough-Hyde Memorial Hospital on above: Order Comment: Specimen Type: BLOOD SPECIMEN Ordering Facility: [facility] Address: [address] [place] [address]Performed By: #### 17701-7 #### [facility] CLIA [id number] [address] [place] [id number] [place] AMERICAPlatelets (Bld) [#/Vol]239 10*3/oGUvhoqh094-212LgbwqgeehGerman Hospital on above:Order Comment: Specimen Type: BLOOD SPECIMEN Ordering Facility: [facility] Address: [address] [place], [place] [address]Performed By: #### 75691-6 #### [facility] CLIA [id number] [address] [place] [id number] [facility] AMERICARB (Bld) [#/Vol]4.93 10*6/uLNormal4.20-6.00[facility] on above:Order Comment: Specimen Type: BLOOD SPECIMEN Ordering Facility: [facility] Address: [address] [place], [place] [address]Performed By: #### 59302-0 #### [facility] CLIA [id number] [address] [place], [place] [address] [facility] OF AMERICAWBC (Bld) [#/Vol]11.79 10*3/uLHigh3.70-11.00[facility] on above:Order Comment: Specimen Type: BLOOD SPECIMEN Ordering Facility: [facility] Address: [address] [place], [place] [address]Performed By: #### 51827-1 #### [facility] CLIA [id number] [address] [place], [place] [address] [place] AMERICAHISTORY PHYSICALon [id number] PHYSICALHNO ID: [id number] Author: Tejinder Quezada MD Service: Interventional Radiology [...] DATE: May 22, 2022 TIME: 7:11 AM PAGER:BertoAccess Hospital DaytonIR NEPHROSTOMY TUBE PLACEon [id number] NEPHROSTOMY TUBE PLACE* * *Final Report* * * DATE OF EXAM: May 22 2022 10:13AM [facility] 0779 - IR NEPHROSTOMY TUBE PLACE [...] distal ureter. Over a wire, a #6 Omani straight nephroureteral catheter was placed with its [...] Specimens: none ATTENDING RADIOLOGIST: Tejinder Quezada M.D. [employer] CONCR[employer]E MIXING PLANT: None The procedure was performed by the: attending radiologist, without an educational assistant teacher. The attending radiologist performed the following procedural [...] right lower pole calyx, (more content not included)...NormalTwin [facility] PROGon 70-84-0527NGOECQR PRONO ID: [id number] Author: Wilma Sahu RN Service: Nursing Author Type: Registered Nurse Type: Nursing Progress Note Filed: 05/22/2022 5:57 PM Note Text: Admission/Transfer Note PATIENT NAME: Taras Hayward Patient admitted from PACU via bed in stable condition. Actions taken: Patient oriented to room, call light function, prescribed activities, Patient rights, and Quiet at night. This note was completed by: Wilma JacobsonSelect Medical [facility] NOon [id number] NOHNO ID: [id number] Author: Harsh Coffey MD Service: Urology Author Type: Physician Type: Operative Report Filed: 05/23/2022 7:34 PM Note Text: OPERATIVE/PROCEDURE REPORT LOG ID: [id number] Surgery/Procedure Date: 05/22/2022 Incision/Procedure Start Time: 2:31 PM Incision Close/Procedure End Time: 3:47 PM Surgeon(s)/Proceduralist(s) and Timber Cruiser(s): Surgeon(s) and Role: * Harsh Coffey MD [...] the bladder with fluoroscopy. An angled open-ended (Gilmore) catheter was passed over the stiff glide [...] Diagnosis: Post-Op Di (more content not included)... NormalTrinity Health System Twin City Medical CenterGICDE PATHOLOGYon 11-18-9279VOPX REPORTNormal Access Hospital DaytonComment on above:Order Comment: Specimen Type: DEVICE SPECIMENOrdering Facility: [facility] Address: [address] [place], [place] [address]Result Comment: Surgical Pathology Report Case: [id number] Authorizing Provider: Harsh Coffey MD Collected: 05/22/2022 03:11 PM Ordering Location: Admitting Received: 05/22/2022 04:23 PM Pathologist: Daxa Barlow MD Specimen: HARDWARE, Right Double J Stent for grossPerformed By: #### S ####[facility] [id number] [address] HISTORYNormCleveland Clinic Lutheran Hospital on above:Order Comment: Specimen Type: DEVICE SPECIMENOrdering Facility: [facility] Address: [address] [place], [place] [address]Result Comment: Pre-op diagnosis: Nephrolithiasis [N20.0]Performed By: #### S ####[facility]IA [id number] [address]ETNoMadison Health on above:Order Comment: Specimen Type: DEVICE SPECIMENOrdering Facility: [facility] Address: [address] [place], [place] [address]Result Comment: A. Site not specified, hardware removal: -Grossly unremarkable stent (gross examination only). JKD/KSZ 05/23/2022 Performed By: #### S ####[facility]IA [id number] [address] PERFORMING LABSelect Medical Specialty [facility], [facility] on above:Order Comment: Specimen Type: DEVICE SPECIMENOrdering Facility: [facility] Address: [address] [place], [place] [address]Result Comment: Diagnostic interpretation performed at [facility], [address] [place] [address] CLIA# [id number] Drafter (Cad) Electrical: Manuel H. Henricks, M.D.Performed By: #### S ####[facility] [id number] [place] [address] [place] AMERICAGROSS DESCRIPTIONA. HARDWARENormalCCommunity Memorial HospitalComment on above:Order Comment: Specimen Type: DEVICE SPECIMENOrdering Facility: [facility] Address: [address] [place] [address]Result Comment: Received in formalin, labeled right double-J stent is a royal plastic stent measuring 42 cm in length. There is no soft tissue present. The specimen is reviewed with Dr. Barlow. Nosections are submitted. KSZ May 23, 2022 10:55 AM Gross examination performed at [facility], [address] [place], [place] [address]Performed By: #### S ####[facility] CENTERIA [id number] [address] OF ROSMERY XR CHEST 1V FRONTAL PORTon [id number] CHEST 1V FRONTAL PORT* * *Final Report* [...] follow-up PA and lateral recommended when possible. Stock Parts Fabricator: JONAH Transcribe Date/Time: May 22 2022 5:38P Dictated by : JACKY LI MD This examination was interpreted and the report reviewed and electronically signed by: BETH LOMBARDI MD on May 22 2022 5:55PM EST [id number] Memorial Hospital COMPLETEon 05-18-2022 ECG COMPLETEVentricular Rate : 98 BPM Atrial Rate : 98 BPM P-R Interval : 196 ms QRS Duration : 88 ms Q-T Interval : 354 ms QTC Calculation(Bazett) : 451 ms Calculated P Minden : 6 degrees Calculated R Minden : 44 degrees Calculated T Minden : 31 degrees NORMAL SINUS RHYTHM NORMAL ECG Confirmed by NABEEL DIAZ MD ([id number]) on 05/21/2022 12:34:10 PM NAME : TARAS HAYWARD PID : [id number] : 1970 Gender : Male Race : ORD : [id number] Procedure Date : May 18 2022 14:39:40 Edit Date : May 21 2022 12:34:11 Diagnosis: NORMAL SINUS RHYTHM NORMAL ECG Confirmed by NABEEL DIAZ MD ([id number]) on 05/21/2022 12:34:10 PM Test Reason : Location : 119 : A17 A17 Overread By : NABEEL DIAZ MD Edited By : NABEEL DIAZ MD Referred By : CYNTHIA BLACKWOOD Acquired by : KELLEY PIRESMiddletown HospitalHISTORY PHYSICALon [id number] PHYSICALHNO ID: [id number] Author: Cynthia Blackwood APRN.REGASIFICATION PLANT OPERATOR Service: ? Author Type: Nurse Practitioner Type: [...] fevers. Neurological: No history of TIA's, stroke, ACID WASHER OPERATOR tumor, impaired sensorium, hemiplegia, paraplegia or quadraplegia. [...] CAD, chest pain, CHF, DVT/PE, hyperlipidemia, recent MA and murmur/valvular heart disease. GI: No history [...] tablet Take by mout (more content not included)...NormalAccess Hospital DaytonHbA1c (Bld)on 73-80-8114Zskffze glucose Estimated from glycated hemoglobin (Bld) [Mass/Vol]114 mg/dLNormal Access Hospital DaytonComment on above:Order Comment: Specimen Type: BLOOD SPECIMENOrdering Facility: [facility] Address:[place] [address]Zgfkfb Comment: eAG: (Estimated average glucose) is a calculated value from HgbA1c and is floor representative of the average blood glucose level in the last 2-3 month period.Performed By: #### 26470-3 ####[facility] [id number] [place] [id number] [place] RTZHDSWOdS4f (Bld) [Mass fraction]5.6 %Normal4.3-5.6 [facility] on above:Order Comment: Specimen Type: BLOOD SPECIMENOrdering Facility: [facility] Address:[address] [place], [place] [address] Comment: [place] [employer] guidelines indicate that patients with HgbA1c in the range 5.7-6.4% are at increased risk for development of diabetes, and intervention by lifestyle modification may be beneficial. HgbA1c greater or equal to 6.5% is considered diagnostic of diabetes.Performed By: #### 41404-0 ####[facility] [id number] [place] [id number] [facility] NURSING PROGon 30-04-2436REBDYKP AZEEM ID: [id number] Author: Edis Garza RN Service: Nursing Author Type: Registered Nurse Type: Nursing Progress Note Filed: 05/15/2022 11:17 AM Note Text: Pre-procedure instructions: Contacted Taras and teo appt. for neph tube w/PUP scheduled on Sunday05/22/22, at [facility]. I will wait while you get [...] signed. Arrival at 0600 to desk QB[facility] ([facility]) and check in for your procedure. Specimen Boss/Transportation: How will you be arriving for your procedure? Private car. If you will be arriving at [facility] via ambulance or public transportation, please call to discuss. You will need a responsible adult to accompany you to and from the procedure. Your electric screw driver operator is required to stay with you until you are taken into the Procedure room. If you develop any of the following symptoms before your procedure, please call [phone]. Chills, joint pain, rash, sore throat, cough, [...] discuss. Written instructions provided to patient via [employer] If you have any questions please call [phone] NormalAccess Hospital DaytonCNPNon [id number] (UROJOSEPHN) HAYWARDTARAS Hurt ([id number]) 1970 M Date Time Provider Department 05/10/22 [...] afterwards, # 2 tab(s), Refills(s) 0, Pharmacy: [facility]/pharmacy #[id number] Start Date: 08/22/19 Status: Ordered - nystatin-triamcinolone [...] 05/09/2022 Encounter Status:Closed by DELLA FREDERICK on 05/10/22NormalCCommunity Memorial Hospital25([place])D3 [facility] [id number]-naemplcrpmpaym D3 [Mass/Vol]15.9 ng/mLLow31.0-80.0Access Hospital DaytonComment on above:Order Comment: Specimen Type: BLOOD SPECIMEN Ordering Facility: [facility] Address: [address] [place], [place] [address]Result Comment: Classification of 25 [place] Vitamin D status: Deficiency/Insufficiency: < or = 30 ng/ml. Sufficiency/Optimal Levels: 31-80 ng/mL Toxicity: > 100 ng/mL. Test performed by chemiluminescent immunoassay.Performed By: #### 05657-5 #### [facility] CLIA [id number] [address] [place] [address] [place] [address] [place] AMERICABacteria Ur Culton 18-97-6618Mqsmktwc identified Cx Nom (U)ORGANISM ID: 1 >=100,000 [...] S <=20 F Susceptible <=40 , Resistant >40AbnormalCCommunity Memorial HospitalComment on above:Performed By: #### 630-4 ####[facility]CLIA [id number] [place] [address] [place] ROSMERY CBC W Auto Differential panel (Bld)on [id number] (Bld) [#/Vol]<0.11 k/uLPomerene HospitalBasophils/100 WBC (Bld)0.2 %[facility] HospitalDifferential cell count method Nom (Bld)AutoCleveland ClinicEosinophils (Bld) [#/Vol]0.05 10*3/uL<0.46 k/uLPomerene HospitalEosinophils/100 WBC (Bld)0.6 %[facility] Erythrocyte distribution width (RBC) [Ratio]14.3 %11.5 - 15.0 %[facility] Hematocrit (Bld) [Volume fraction]46.1 %39.0 - 51.0 %[facility] HospitalHemoglobin (Bld) [Mass/Vol]14.8 g/dL13.0 - 17.0 g/dLPomerene HospitalImmature granulocytes (Bld) [#/Vol]0.03 10*3/uL<0.10 k/uLPomerene HospitalImmature granulocytes/100 WBC (Bld)0.4 %[facility] HospitalLymphocytes (Bld) [#/Vol]2.20 10*3/uL1.00 - 4.00 k/uL [facility] HospitalLymphocytes/100 WBC (Bld)26.4 %[facility] Children's HospitalH (RBC) [Entitic mass]28.0 pg26.0 - 34.0 pgCCincinnati Shriners HospitalHC (RBC) [Mass/Vol]32.1 g/dL30.5 - 36.0 g/dLAkron Children's HospitalV (RBC) [Entitic vol]87.1 fL80.0 - 100.0 fLCleveland ClinicMonocytes (Bld) [#/Vol]0.74 10*3/uL<0.87 k/uLPomerene Hospital Monocytes/100 WBC (Bld)8.9 %[facility] HospitalNeutrophils (Bld) [#/Vol]5.29 10*3/uL1.45 - 7.50 k/uLPomerene HospitalNeutrophils/100 WBC (Bld)63.5 %[facility] HospitalNucleated RBC (Bld) [#/Vol]<0.01 k/uLPomerene HospitalNucleated RBC/100 WBC (Bld) [Ratio]0.0 /100 WBCPomerene HospitalPlatelet mean volume (Bld) [Entitic vol]10.3 fL9.0 - 12.7 fLClevelduke health ClinicPlatelets (Bld) [#/Vol]295 10*3/uL150 - 400 k/uLPomerene HospitalRBC (Bld) [#/Vol]5.29 10*6/uL4.20 - 6.00 m/[facility] Medical CenterWBC (Bld) [#/Vol]8.33 10*3/uL3.70 - 11.00 k/[facility] County Medical CenterBasophils (Bld) [#/Vol]10*3/uLNormal<0.11CMcCullough-Hyde Memorial Hospital on above:Order Comment: Specimen Type: BLOOD SPECIMEN [facility]ing Facility: [facility] Address: [address] [place], [place] [address]Performed By: #### 03255-1 #### [facility] CLIA [id number] [address] [place] [address] [place] AMERICABasophils/100 WBC (Bld)0.2 % NormalGerman Hospital on above:Order Comment: Specimen Type: BLOOD SPECIMEN Ordering Facility: [facility] Address: [address] [place], [place] [address]Performed By: #### 73387-7 #### [facility] CLIA [id number] [address] [place] [address] [place] AMERICADifferential cell count method Nom (Bld)AutoNormalCMcCullough-Hyde Memorial Hospital on above:Order Comment: Specimen Type: BLOOD SPECIMEN Ordering Facility: [facility] Address: [address] [place], [place] [address]Performed By: #### 55529-0 #### [facility] CLIA [id number] [address] [place] [address] [place] AMERICAEosinophils (Bld) [#/Vol] 0.05 10*3/uLNormal<0.46[facility] on above:Order Comment: Specimen Type: BLOOD SPECIMEN [facility]ing Facility: [facility] Address: [address] [place], [place] [address]Performed By: #### 45221-6 #### [facility] CLIA [id number] [address] [place] [address] [place] AMERICAEosinophils/100 WBC (Bld)0.6 %NormalGerman Hospital on above:Order Comment: Specimen Type: BLOOD SPECIMEN Ordering Facility: [facility] Address: [address] [place], [place] [address]Performed By: #### 37464-0 #### [facility] CLIA [id number] [address] [place] [address] [place] AMERICAErythrocyte distribution width (RBC) [Ratio]14.3 %Csprxf25.5-15.0[facility] on above:Order Comment: Specimen Type: BLOOD SPECIMEN Ordering Facility: [facility] Address: [address] [place], [place] [address]Performed By: #### 50802-3 #### [facility] CLIA [id number] [address] [place] [address] [place] AMERICAHematocrit (Bld) [Volume fraction]46.1 %Uetpzk17.0-51.0[facility] on above:Order Comment: Specimen Type: BLOOD SPECIMEN Ordering Facility: [facility] Address: [address] [place] [address]Performed By: #### 60963-7 #### [facility] CLIA [id number] [address] [place] [address] [place] AMERICAHemoglobin (Bld) [Mass/Vol] 14.8 g/zXSrzjkg56.0-17.0[facility] on above:Order Comment: Specimen Type: BLOOD SPECIMEN Ordering Facility: [facility] Address: [address] [place] [address]Performed By: #### 08942-2 #### [facility] CLIA [id number] [address] [place] [address] [place] AMERICAImmature granulocytes (Bld) [#/Vol]0.03 10*3/uLNormal<0.10[facility] on above:Order Comment: Specimen Type: BLOOD SPECIMEN Ordering Facility: [facility] Address: [address]Performed By: #### 39366-2 #### [facility] CLIA [id number] [address] [place] [address] [place] AMERICAImmature granulocytes/100 WBC (Bld)0.4 %[facility] on above:Order Comment: Specimen Type: BLOOD SPECIMEN Ordering Facility: [facility] Address: [address]Performed By: #### 11807-0 #### [facility] CLIA [id number] [address] [place] [address] [place] AMERICALymphocytes (Bld) [#/Vol] 2.20 10*3/uLNormal1.00-4.00[facility] on above:Order Comment: Specimen Type: BLOOD SPECIMEN Ordering Facility: [facility] Address: [address]Performed By: #### 97259-7 #### [facility] CLIA [id number] [address] [place] [address] [place] AMERICALymphocytes/100 WBC (Bld) 26.4 %NormalGerman Hospital on above:Order Comment: Specimen Type: BLOOD SPECIMEN Ordering Facility: [facility] Address: [address] [place] [phone] By: #### 03259-6 #### [facility] CLIA [id number] [address] [place] [address] [place] AMERICAMCH (RBC) [Entitic mass]28.0 guGqelwx70.0-34.0[facility] on above:Order Comment: Specimen Type: BLOOD SPECIMEN Ordering Facility: [facility] Address: [address] [place], [place] [address]Performed By: #### 39684-5 #### [facility] CLIA [id number] [address]HC (RBC) [Mass/Vol]32.1 g/oYMycijk27.5-36.0[facility] on above:Order Comment: Specimen Type: BLOOD SPECIMEN Ordering Facility: [facility] Address: [address] [place] [phone] By: #### 92060-4 #### [facility] CLIA [id number] [address]V (RBC) [Entitic vol]87.1 oJCdugld53.0-100.0[facility] on above:Order Comment: Specimen Type: BLOOD SPECIMEN Ordering Facility: [facility] Address: [address] [place] [phone] By: #### 49956-4 #### [facility] CLIA [id number] [address] STATES AMERICAMonocytes (Bld) [#/Vol]0.74 10*3/uLNormal<0.87[facility] on above:Order Comment: Specimen Type: BLOOD SPECIMEN Ordering Facility: [facility] Address: [address] [place] [phone] By: #### 68418-0 #### [facility] CLIA [id number] [address] [place] [address] [place] AMERICAMonocytes/100 WBC (Bld)8.9 % NormalGerman Hospital on above:Order Comment: Specimen Type: BLOOD SPECIMEN Ordering Facility: [facility] Address: [address] [place] [phone] By: #### 53166-4 #### [facility] CLIA [id number] [address] [place] [address] [place] AMERICANeutrophils (Bld) [#/Vol] 5.29 10*3/uLNormal1.45-7.50[facility] on above:Order Comment: Specimen Type: BLOOD SPECIMEN Ordering Facility: [facility] Address: [address] [place], [place] [address]Performed By: #### 90960-9 #### [facility] CLIA [id number] [address] [place] [address] [place] AMERICANeutrophils/100 WBC (Bld) 63.5 %NormalGerman Hospital on above:Order Comment: Specimen Type: BLOOD SPECIMEN Ordering Facility: [facility] Address: [address] [place], [place] [address]Performed By: #### 66487-0 #### [facility] CLIA [id number] [address] [place] [address] [place] AMERICANucleated RBC (Bld) [#/Vol] 10*3/uLNormal<0.01[facility] on above:Order Comment: Specimen Type: BLOOD SPECIMEN Ordering Facility: [facility] Address: [address] [place] [address]Performed By: #### 55937-5 #### [facility] CLIA [id number] [address] [place] [address] [place] AMERICANucleated RBC/100 WBC (Bld) [Ratio]0.0 /100 WBCNormalCMcCullough-Hyde Memorial [facility] on above:Order Comment: Specimen Type: BLOOD SPECIMEN Ordering Facility: [facility] Address: [address] [place] [phone] By: #### 93731-1 #### [facility] CLIA [id number] [address] [place] [address] [place] AMERICAPlatelet mean volume (Bld) [Entitic vol]10.3 fLNormal9.0-12.7[facility] Clinic ClevelandComment on above: Order Comment: Specimen Type: BLOOD SPECIMEN Ordering Facility: [facility] Address: [address] [place], [place] [address]Performed By: #### 58156-2 #### [facility] CLIA [id number] [address] [place], [place] [address]Platelets (Bld) [#/Vol]295 10*3/eHBgrgbg985-534OwwbefixqGerman Hospital on above:Order Comment: Specimen Type: BLOOD SPECIMEN Ordering Facility: [facility] Address: [address] [place], [place] [address]Performed By: #### 74089-5 #### [facility] CLIA [id number] [address] [place] [address] (Bld) [#/Vol]5.29 10*6/uLNormal4.20-6.00[facility] on above:Order Comment: Specimen Type: BLOOD SPECIMEN Ordering Facility: [facility] Address: [address] [place], [place] [address]Performed By: #### 94828-0 #### [facility] CLIA [id number] [address] [place], [place] [address]W (Bld) [#/Vol]8.33 10*3/uLNormal3.70-11.00[facility] on above:Order Comment: Specimen Type: BLOOD SPECIMEN Ordering Facility: [facility] Address: [address] [place] [address]Performed By: #### 21015-8 #### [facility] CLIA [id number] [address] [place], [place] [address]CNOVon 70-56-8355DLDAAinmzf Visit (UROLMN) TARAS HAYWARD ([id number]) 1970 M Date Time Provider Department 05/09/22 1:00 PM HARSH COFFEY During your visit today, we recorded the following information about you: Pulse Blood pressure Weight Height 108/minute 130/88 161 kg 1.905 m Aislinn Mendoza MA 05/09/2022 4:29 PM Addendum LORRAINE Patient was assigned the Dr. Coffey patient instruction module from the VMob platform. Patient was provided instructions on how to access VM[employer]. The patient was instructed to call the provider?s office with any questions. Patient states understanding and has the provider?s office number/contact information via [employer]. MARTÍNEZ Whitlock MD 05/09/2022 4:29 PM Signed [...] based on size, location, hounsfield units and jpec-uu-gwnjz distance: 2% 3. Ureteroscopy - risks of [...] Harsh Coffey MD Director, [facility] Pager [phone] 05/09/2022 Referring Provider: KONRAD LILLY [[id number]] Allergies As of Date: 05/09/2022 (No Known [...] [R82.90] Order(s):CBC + DIFF [SQCBCDIF] Order #: [id number] FUTURE COMP METABOLIC PANEL [SQCMP] Order #: [id number] FUTURE PTH INTACT BLD [SQPTHI] Order #: [id number] FUTURE VITAMIN D 25 HYDROXY [SQVITD] Order #: [id number] FUTURE URIC ACID BLOOD [SQURIC] Order #: [id number] FUTURE IR NEPHROSTOMY TUBE PLACE [8631071] Order #: [id number] REFER TO [facility] [2372740] Order #: [id number]: 1 FUTURE CONFIRM BLOOD TYPE [SQCONABO] Order #: [id number] FUTURE TYPE AND SCREEN,30 DAY [ILEZDU02] Order #: [id number] FUTURE URINE CULTURE [SQURCUL] Order #: [id number]. #:[id number] Prescriptions as of 05/09/2022 - azithromycin (ZITHROMAX) [...] afterwards, # 2 tab(s), Refills(s) 0, Pharmacy: [facility]/pharmacy #[id number] Start Date: 08/22/19 Status: Ordered - nystatin-triamcinolone (MYCOLOG II (more content not included)...Normal Access Hospital DaytonCONFIR BLOOD TYPEon 46-26-8064ZAURPzzomnslj ClinicRh Nom (Bld)PositivePomerene HospitalABOONormalAccess Hospital DaytonComment on above:Order Comment: Specimen Type: BLOOD SPECIMENOrdering Facility: [facility] Address:[address] [place], [place] [address]Performed By: #### CONABO ####[facility] BLOOD BANKCLIA [id number] [address] STATES OF [facility]AL HOSPITALRh Nom (Bld)PositiveNormal Access Hospital DaytonComchelsea hospital on above:Order Comment: Specimen Type: BLOOD SPECIMENOrdering Facility: [facility] Address:[address] [place], [place] [address]Performed By: #### CONABO ####CC [facility]IN BLOOD BANKCLIA [id number] [address] STATES OF AMERICAComprehensive metabolic 2000 panelon 30-20-1624Bgzwiow [Mass/Vol]4.2 g/dL 3.9 - 4.9 g/dLSaucier ClinicALP [Catalytic activity/Vol]87 U/L38 - 113 U/L [facility] ClinicALT [Catalytic activity/Vol]17 U/L10 - 54 U/LCleveland [facility]ec[facility] Anion gap [Moles/Vol]12 mmol/L9 - 18 mmol/LCleveland ClinicAST [Catalytic activity/Vol]15 U/L14 - 40 U/LCleveland ClinicBilirubin [Mass/Vol]0.8 mg/dL0.2 - 1.3 mg/dLSaucier ClinicCalcium [Mass/Vol]9.3 mg/dL8.5 - 10.2 mg/dLSaucier ClinicChloride [Moles/Vol]105 mmol/L97 - 105 mmol/LCleveland ClinicCO2 [Moles/Vol]24 mmol/L22 - 30 mmol/LCleveland ClinicCreatinine [Mass/Vol]0.98 mg/dL0.73 - 1.22 mg/dLPomerene HospitalEstimated Glomerular Filtration Rate95 mL/min/1.73m>=60 mL/min/1.73mCleveland Lifecare Medical CenterGlucose [Mass/Vol]107 mg/rJNlqz13 - 99 mg/dLPomerene HospitalPotassium [Moles/Vol]4.8 mmol/L3.7 - 5.1 mmol/L [facility] ClinicProtein [Mass/Vol]7.2 g/dL6.3 - 8.0 g/dLSaucier ClinicSodium [Moles/Vol]141 mmol/L136 - 144 mmol/LCleveland Lifecare Medical CenterUrea nitrogen [Mass/Vol]17 mg/dL9 - 24 mg/dLSaucier ClinicAlbumin [Mass/Vol]4.2 g/dLNormal3.9-4.9 Access Hospital DaytonComment on above:Order Comment: Specimen Type: BLOOD SPECIMEN Ordering Facility: [facility] Address: [address] [place] [phone] By: #### 11330-5 #### [facility] CLIA [id number] [address] [address] [facility]AS[facility]ITAL OF AMERICAALP [Catalytic activity/Vol] 87 U/AHyakix67-028NlhybqymqGerman Hospital on above:Order Comment: Specimen Type: BLOOD SPECIMEN Ordering Facility: [facility] Address: [address]Performed By: #### 43254-0 #### [facility] CLIA [id number] [address] [address] [place] OF AMERICAALT [Catalytic activity/Vol] 17 U/GSxvddd08-39LpkhsinosGerman Hospital on above:Order Comment: Specimen Type: BLOOD SPECIMEN Ordering Facility: [facility] Address: [address]Performed By: #### 00934-9 #### [facility] CLIA [id number] [address] [place] [id number] [place] AMERICAAnion gap [Moles/Vol]12 mmol/LNormal9-18[facility] on above:Order Comment: Specimen Type: BLOOD SPECIMEN Ordering Facility: [facility] Address: [address] [place], [place] [address]Performed By: #### 13520-2 #### [facility] CLIA [id number] [address] [place] [id number] [place] AMERICAAST [Catalytic activity/Vol] 15 U/ZQlligs45-25JelhunuzcGerman Hospital on above:Order Comment: Specimen Type: BLOOD SPECIMEN Ordering Facility: [facility] Address: [address] [place] [phone] By: #### 33193-7 #### [facility] CLIA [id number] [address] [place] [id number] [place] AMERICABilirubin [Mass/Vol]0.8 mg/dLNormal0.2-1.3CMcCullough-Hyde Memorial Hospital on above:Order Comment: Specimen Type: BLOOD SPECIMEN Ordering Facility: [facility] Address: [address] [place] [phone] By: #### 75702-5 #### [facility] CLIA [id number] [address] [place] [address] [place] AMERICACalcium [Mass/Vol]9.3 mg/dL Normal8.5-10.2CMcCullough-Hyde Memorial Hospital on above:Order Comment: Specimen Type: BLOOD SPECIMEN Ordering Facility: [facility] Address: [address] [place], [place] [address]Performed By: #### 42031-3 #### [facility] CLIA [id number] [address] [place] [address] [place] AMERICAChloride [Moles/Vol]105 mmol/HOislye09-656OejdizgyjGerman Hospital on above:Order Comment: Specimen Type: BLOOD SPECIMEN Ordering Facility: [facility] Address: [address] [place], [place] [address]Performed By: #### 47457-6 #### [facility] CLIA [id number] [address] [place] [address] [place] AMERICACO2 [Moles/Vol]24 mmol/L Xzgayj42-08UitahklfpGerman Hospital on above:Order Comment: Specimen Type: BLOOD SPECIMEN Ordering Facility: [facility] Address: [address] [place] [address]Performed By: #### 89477-1 #### [facility] CLIA [id number] [address] [place] [address] [place] AMERICACreatinine [Mass/Vol]0.98 mg/dLNormal0.73-1.22[facility] on above:Order Comment: Specimen Type: BLOOD SPECIMEN Ordering Facility: [facility] Address: [address] [place], [place] [address]Performed By: #### 19287-8 #### [facility] CLIA [id number] [address] [place] [id number] [place] OF AMERICAESTIMATED GLOMERULAR FILTRATION RATE95 mL/min/1.73m???Normal>=60[facility] on above:Order Comment: Specimen Type: BLOOD SPECIMEN Ordering Facility: [facility] Address: [address] [place] [phone] Comment: Estimated Glomerular Filtration Rate (eGFR) is [...] not accurately reflect actual GFR.Performed By: #### 10466-9 #### [facility] CLIA [id number] [address] [place] [address] [place] AMERICAGlucose [Mass/Vol]107 mg/dL Xdon92-74XseahemxjGerman Hospital on above:Order Comment: Specimen Type: BLOOD SPECIMEN Ordering Facility: [facility] Address: [address] [place] [address]Result Comment: The [place] [employer] Association (ADA) provides guidance for cutoff [...] Standards of Medical Care in Diabetes 2016, [place] [employer]. Diabetes Care. 2016.39(Suppl 1).Performed By: #### 94355-6 #### [facility] CLIA [id number] [address] [place], [place] [address] [place] AMERICAPotassium [Moles/Vol]4.8 mmol/LNormal3.7-5.1CMcCullough-Hyde Memorial Hospital on above:Order Comment: Specimen Type: BLOOD SPECIMEN Ordering Facility: [facility] Address: [address] [place], [place] [address]Performed By: #### 69189-4 #### [facility] CLIA [id number] [address] [place] [address] [place] AMERICAProtein [Mass/Vol]7.2 g/dL Normal6.3-8.0[facility] on above:Order Comment: Specimen Type: BLOOD SPECIMEN Ordering Facility: [facility] Address: [address] [place] [address]Performed By: #### 31646-4 #### [facility] CLIA [id number] [address] [place] [address] [place] AMERICASodium [Moles/Vol]141 mmol/L Qwopic268-659XmjgpfdkfGerman Hospital on above:Order Comment: Specimen Type: BLOOD SPECIMEN Ordering Facility: [facility] Address: [address] [place], [place] [address]Performed By: #### 28191-5 #### [facility] CLIA [id number] [address] [place] [address] [place] AMERICAUrea nitrogen [Mass/Vol]17 mg/dLNormal9-24[facility] on above:Order Comment: Specimen Type: BLOOD SPECIMEN Ordering Facility: [facility] Address: [address] [place] [address]Performed By: #### 22929-4 #### [facility] CLIA [id number] [address] [place] [id number] [place] OF AMERICAPTH INTACT BLDon 05-09-2022 Parathyrin.intact [Mass/Vol]80 pg/aVEhpz85 - 65 pg/mLCHocking Valley Community HospitalPT-Intact SerPl-mCncon 11-52-6068Nwertzrazs.intact [Mass/Vol]80 pg/zWPdnp12-80UgwlwwqrvGerman Hospital on above:Order Comment: Specimen Type: BLOOD SPECIMEN Ordering Facility: [facility] Address: [address] [place] [phone] By: #### 26453-9 #### [facility] CLIA [id number] [address] [place] [address] [place] AMERICATYPE AND SCREEN,30 DAYon 37-18-8422RPARQflbzwpch Lifecare Medical CenterHIstorical Ab Scr StatusNegativePomerene HospitalRh Nom (Bld)PositivePomerene HospitalABOONormalGerman Hospital on above:Order Comment: Specimen Type: BLOOD SPECIMENOrdering Facility: [facility] Address:[address] [place], [place] [address]Performed By: #### [id number] ####CC [facility] BLOOD BANKCLIA [id number] [address]REETHISTORICAL AB SCR STATUSNegative NormalGerman Hospital on above:Order Comment: Specimen Type: BLOOD SPECIMENOrdering Facility: [facility] Address:[address] [place], [place] [address]Performed By: #### [id number] ####CC [facility] BLOOD BANKCLIA [id number] [address]Rh Nom (Bld)PositiveNormalCMcCullough-Hyde Memorial Hospital on above: Order Comment: Specimen Type: BLOOD SPECIMENOrdering Facility: [facility] Address:[address] [place], [place] [address]Performed By: #### [id number] ####CC [facility] BLOOD BANKCLIA [id number] [address] STATES OF AMERICAURIC ACID BLOODon 25-36-7298Vwmrw [Mass/Vol]5.6 mg/dL4.0 - 8.1 mg/dLPomerene HospitalURINALYSIS, REFLEX MICROSCOPICon 77-87-9731Bdobzrvu LM.HPF (Urine sed) [#/Area]ManyAbnormalNone SeenGerman Hospital on above:Order Comment: Specimen Type: URINE SPECIMENOrdering Facility: [facility] Address:[address] [place], [place] [address]Performed By: #### [id number] ####[facility] LABCLIA [id number] [place] [address] [place] AMERICABilirubin Ql (U)NegativeNormalNegativeGerman Hospital on above:Order Comment: Specimen Type: URINE SPECIMENOrdering Facility: [facility] Address:[address] [place], [place] [address]Performed By: #### [id number] ####[facility] LABCLIA [id number] [place] [address] [place] ROSMERY Clarity (Unsp spec)CloudyAbnormalClearCMcCullough-Hyde Memorial Hospital on above:Order Comment: Specimen Type: URINE SPECIMENOrdering Facility: [facility] Address:[address] [place], [place] [address]Performed By: #### [id number] ####[facility] LABCLIA [id number] [place] [address] [place] AMERICAColor (U)Avery AbnormalYellowGerman Hospital on above:Order Comment: Specimen Type: URINE SPECIMENOrdering Facility: [facility] Address:[address] [place], [place] [address]Performed By: #### [id number] ####[facility] LABCLIA [id number] [place] [address] [place] AMERICAGlucose Test strip (U) [Mass/Vol]NegativeNormal NegativeGerman Hospital on above:Order Comment: Specimen Type: URINE SPECIMENOrdering Facility: [facility] Address:[address] [place], [place] [address]Performed By: #### [id number] ####[facility] LABCLIA [id number] [place] [address] [place] AMERICAHemoglobin Ql (U)3+AbnormalNegativeGerman Hospital on above:Order Comment: Specimen Type: URINE SPECIMENOrdering Facility: [facility] Address:[address] [place], [place] [address]Performed By: #### [id number] ####[facility] LABCLIA [id number] [address]ETKetones Ql (U)NegativeNormalNegOhioHealth Grant Medical Center Comment on above:Order Comment: Specimen Type: URINE SPECIMENOrdering Facility: [facility] Address:[address] [place] [address] Performed By: #### [id number] ####[facility] LABCLIA [id number] [address] STATES OF ROSMERY Leukocyte esterase Test strip Ql (U)500 Katrina/mLAbnormalNegCleveland Clinic [facility] on above:Order Comment: Specimen Type: URINE SPECIMENOrdering Facility: [facility] Address:[address] [place], [place] [address]Performed By: #### [id number] ####[facility] LABCLIA [id number] [address] STATES OF ROSMERY Nitrite Ql (U)NegativeNormalNegOhioHealth Grant Medical CenterComment on above: Order Comment: Specimen Type: URINE SPECIMENOrdering Facility: [facility] Address:[address] [place], [place] [address]Performed By: #### [id number] ####[facility] LABCLIA [id number] [address] OF [facility]AL HOSPITALpH (U)6.0 [pH]Normal 5.0-8.0[facility] on above:Order Comment: Specimen Type: URINE SPECIMENOrdering Facility: [facility] Address:[address] [place], [place] [address]Performed By: #### [id number] ####[facility] LABCLIA [id number] [place] [address] [place] [facility]AL HOSPITALProtein (U) [Mass/Vol]2+AbnormalNegativeGerman Hospital on above:Order Comment: Specimen Type: URINE SPECIMENOrdering Facility: [facility] Address:[address] [place], [place] [address]Performed By: #### [id number] ####[facility] LABIA [id number] [place] [address] [place] RBC LM.HPF (Urine sed) [#/Area]/[HPF]Abnormal0-3 /HPFAccess Hospital Dayton Comment on above:Order Comment: Specimen Type: URINE SPECIMENOrdering Facility: [facility] Address:[address] [place] [address] Performed By: #### [id number] ####[facility] LABIA [id number] [place] [address] [place] Specific gravity (U) [Rel density]1.195Dxuxus1.005-1.030Access Hospital DaytonComment on above:Order Comment: Specimen Type: URINE SPECIMENOrdering Facility: [facility] Address:[address] [place], [place] [address]Performed By: #### [id number] ####[facility] LABIA [id number] [place] [address] [place] Urobilinogen Ql (U)NegativeNormalNegativeAccess Hospital DaytonComment on above:Order Comment: Specimen Type: URINE SPECIMENOrdering Facility: [facility] Address:[address] [place] [address]Performed By: #### [id number] ####[facility]IA [id number] [place] [address] [place] AMERICAWBC LM.HPF (Urine sed) [#/Area]/[HPF]Abnormal0-5 /HPFAccess Hospital DaytonComment on above:Order Comment: Specimen Type: URINE SPECIMENOrdering Facility: [facility] Address:[address] [place], [place] [id number] By: #### [id number] ####[facility] LABCLIA [id number] [facility] [place] [address] [place] AMERICAUrate SerPl-mCncon [id number] [Mass/Vol]5.6 mg/dLNormal4.0-8.1[facility] Comment on above:Order Comment: Specimen Type: BLOOD SPECIMEN Ordering Facility: [facility] Address: [address] [place], [place] [address]Performed By: #### [address]-8 #### [facility] CLIA [id number] [facility] [place] [address] [place] AMER[place]AM[place] D 25 HYDROXYon [id number]-kniymcaofzfpnp D3 [Mass/Vol]15.9 ng/mLLow31.0 - 80.0 ng/mLCHocking Valley Community HospitalXR KUB 1 VIEWon [id number] KUB 1 VIEWEXAMINATION: XR KUB 1 VIEW [...] Electronically authenticated by: INÉS WARREN Date: 2022-04-11 22:28[facility] AUTO DIFFon [id number] #0.0 103/ulNormal0.0-0.1The [facility] HospitalComment on above:Performed By: #### INFLUAB #### [facility] [address] [address] [address] Lissa Montalvophils/100 WBC (Bld)0.1 %Critically low0.2-2.0The [facility] HospitalComment on above:Performed By: #### INFLUAB #### [facility] [address] #0.0 103/ulNormal0.0-0.7The [facility] HospitalComment on above: Performed By: #### INFLUAB #### [facility] [address] [place] [address] Dr. Lissa Palmaosinophils/100 WBC (Bld)0.0 %Critically low0.9-7.0The [facility] HospitalComment on above:Performed By: #### INFLUAB #### [facility] [address] [place] [address] Dr. Lissa Palmarythrocyte distribution width (RBC) [Ratio]14.2 %Rbbcjw93.0-15.0 The [facility] HospitalComment on above:Performed By: #### INFLUAB #### [facility] [address] [place] [address] Dr. Lissa SageHematocrit (Bld) [Volume fraction]38.0 %Critically low42.0-54.0 The [facility] HospitalComment on above:Performed By: #### INFLUAB #### [facility] [address] [place] [address] Dr. Lissa SageHemoglobin (Bld) [Mass/Vol]12.0 g/dLCritically low14.0-18.0The [facility] HospitalComment on above:Performed By: #### INFLUAB #### [facility] [address] [place] [address] Dr. Lissa Peterson #0.09 10e3/ulCritically high0.00-0.03The [facility] Comment on above:Performed By: #### INFLUAB #### [facility] [address] [place] [address] Dr. Lissa Peterson %0.8 %Critically high0.0-0.5The [facility] HospitalComment on above:Performed By: #### INFLUAB #### [facility] [address] [place] [address] Dr. Lissa SampsonMPH #0.9 103/ulCritically low1.2-3.8The [facility] Comment on above:Performed By: #### INFLUAB #### [facility] [address] [place] [address] Dr. Lissa Sampsonmphocytes/100 WBC (Bld)7.2 %Critically low20.5-60.0The [facility] HospitalComment on above:Performed By: #### INFLUAB #### [facility] [address] [place] [address] Dr. Lissa BlueUAL DIFF REQNONormalThe [facility] HospitalComment on above: Performed By: #### INFLUAB #### [facility] [address] [place] [address] Dr. Lissa Noel (RBC) [Entitic mass]28.4 sxCkedwy78.9-34.0The [facility] HospitalComment on above:Performed By: #### INFLUAB #### [facility] [address] [place] [address] Dr. Lissa Noel (RBC) [Mass/Vol]31.6 g/wTNamgso60.9-35.2The [facility] HospitalComment on above:Performed By: #### INFLUAB #### [facility] [address] [place] [address] Dr. Lissa NoelV (RBC) [Entitic vol]89.8 lBXgxcov59.0-94.0The [facility] HospitalComment on above:Performed By: #### INFLUAB #### [facility] [address] [place] [address] Dr. Lissa oMser #0.7 103/ulNormal0.3-0.8The [facility] HospitalComment on above:Performed By: #### INFLUAB #### [facility] [address] [place] [address] Dr. Lissa Pedersenocytes/100 WBC (Bld)5.6 %Normal1.7-12.0[facility] Comment on above:Performed By: #### INFLUAB #### [facility] [address] [place] [address] Dr. Lissa Coulter #10.3 103/ulCritically high1.4-6.5The [facility] Comment on above:Performed By: #### INFLUAB #### [facility] [address] [address] [address] Lissa Frankelutrophils/100 WBC (Bld)86.3 %Critically high43.0-75.0The [facility] on above:Performed By: #### INFLUAB #### [facility] [address] [place] [address] Dr. Lissa Negrolet mean volume (Bld) [Entitic vol]10.1 fLNormal9.5-13.5The [facility] HospitalComment on above:Performed By: #### INFLUAB #### [facility] [address] [place] [address] Dr. Lissa SagePLT198 103/xdQyxdqz575-641Ujv [facility] HospitalComchelsea hospital on above: Performed By: #### INFLUAB #### [facility] [address] [place] [address] Dr. Lissa SageRBC4.23 106/ulCritically low4.70-6.10The [facility] HospitalComment on above:Performed By: #### INFLUAB #### [facility] [address] [place] [address] Dr. Lissa SageWBC11.9 103/ulCritically high4.0-11.0The [facility] HospitalComment on above:Performed By: #### INFLUAB #### [facility] [address] [place] [address] Dr. Lissa Dai URINEon 03-48-0547WUKSGKB URINEIsolate 1 Klebsiella pneumoniae >100,000 cfu/mL of [...] 32 S F Trimethoprim/Sulfamethoxazole <=20 S FNormalThe [facility] HospitalComment on above:Performed By: #### INFLUAB #### [facility] [address] [place] [address] Dr. Lissa SagePROF CHEM 8 (BAS METB)on 17-32-8440Vgqni gap [Moles/Vol]7.7 mmol/LNormalThe [facility] HospitalComment on above:Performed By: #### BMP #### [facility] [address] [place] [address] Dr. Lissa SageCalcium [Mass/Vol]8.6 mg/dLNormal8.5-10.1The [facility] Comment on above:Performed By: #### BMP #### [facility] [address] [place] [address] Dr. Lissa SageChloride [Moles/Vol]105 mmol/TOlimce98-276Bpk [facility] Comment on above:Performed By: #### BMP #### [facility] [address] [place] [address] Dr. Lissa SageCO2 [Moles/Vol]26.9 mmol/HUrqrzl64.0-32.0The [facility] Comment on above:Performed By: #### BMP #### [facility] [address] [place] [address] Dr. Lissa SageCreatinine [Mass/Vol]1.07 mg/dLNormal0.70-1.30The [facility] HospitalComment on above:Performed By: #### BMP #### [facility] [address] [place] [address] Dr. Lissa PalmaGFR-AF DJIBOUTIAN>60Normal>=60The [facility] HospitalComment on above:Performed By: #### BMP #### [facility] [address] [place] [address] Dr. Lissa PalmaGFR-NON AF DJIBOUTIAN>60Normal>=60The [facility] HospitalComment on above:Performed By: #### BMP #### [facility] [address] [place] [address] Dr. Lissa SageGlucose [Mass/Vol]174 mg/dLCritically deau31-902Wpc [facility] HospitalComment on above:Performed By: #### BMP #### [facility] [address] [place] [address] Dr. Lissa Cruzassium [Moles/Vol]4.6 mmol/LNormal3.5-5.1The [facility] Comment on above:Performed By: #### BMP #### [facility] [address] [place] [address] Dr. Lissa Conraddium [Moles/Vol]135 mmol/LCritically gbu809-692Wry [facility] HospitalComment on above:Performed By: #### BMP #### [facility] [address] [place] [address] Dr. Lissa Kelly nitrogen [Mass/Vol]17.0 mg/dLNormal7.0-18.0The [facility] HospitalComment on above:Performed By: #### BMP #### [facility] [address] [place] [address] Dr. Lissa Kelly nitrogen/Creatinine [Mass ratio]15.9 mg/mgNormalThe [facility] HospitalComment on above:Performed By: #### BMP #### [facility] [address] [place] [address] Dr. Lissa Mccarty AUTO DIFFon [id number] #0.0 103/ulNormal0.0-0.1The [facility] HospitalComment on above:Performed By: #### LIPID, CMP, TSH #### [facility] [address] [place] [address] Dr. Lissa SageBasophils/100 WBC (Bld)0.2 %Normal0.2-2.0The [facility] Comment on above:Performed By: #### LIPID, CMP, TSH #### [facility] [address] [place] [address] #0.0 103/ulNormal0.0-0.7The [facility] HospitalComment on above: Performed By: #### LIPID, CMP, TSH #### [facility] [address] [address] [address] Lissa Palmaosinophils/100 WBC (Bld)0.1 %Critically low0.9-7.0The [facility] HospitalComment on above:Performed By: #### LIPID, CMP, TSH #### [facility] [address] [place] [address] Dr. Lissa Palmarythrocyte distribution width (RBC) [Ratio]14.5 %Piuqal27.0-15.0 The [facility] HospitalComment on above:Performed By: #### LIPID, CMP, TSH #### [facility] [address] [place] [address] Dr. Lissa SageHematocrit (Bld) [Volume fraction]40.0 %Critically low42.0-54.0 The [facility] HospitalComment on above:Performed By: #### LIPID, CMP, TSH #### [facility] [address] [place] [address] Dr. Lissa SageHemoglobin (Bld) [Mass/Vol]12.6 g/dLCritically low14.0-18.0The [facility] HospitalComment on above:Performed By: #### LIPID, CMP, TSH #### [facility] [address] [place] [address] Dr. Lissa Peterson #0.09 10e3/ulCritically high0.00-0.03The [facility] Comment on above:Performed By: #### LIPID, CMP, TSH #### [facility] [address] [place] [address] Dr. Lissa Peterson %0.6 %Critically high0.0-0.5The [facility] HospitalComment on above:Performed By: #### LIPID, CMP, TSH #### [facility] [address] [place] [address] Dr. Lissa Haywood #1.5 103/ulNormal1.2-3.8The [facility] HospitalComment on above:Performed By: #### LIPID, CMP, TSH #### [facility] [address] [place] [address] Dr. Yilan ChangLymphocytes/100 WBC (Bld)11.0 %Critically low20.5-60.0The [facility] HospitalComment on above:Performed By: #### LIPID, CMP, TSH #### [facility] [address] [place] [address] Dr. Lissa Cuello DIFF REQNONormalThe [facility] HospitalComment on above: Performed By: #### LIPID, CMP, TSH #### [facility] [address] [place] [address] Dr. Lissa Noel (RBC) [Entitic mass]28.3 zuJeoidh11.9-34.0The [facility] HospitalComment on above:Performed By: #### LIPID, CMP, TSH #### [facility] [address] [place] [address] Dr. Lissa Noel (RBC) [Mass/Vol]31.5 g/zXJjvpmy89.9-35.2The [facility] HospitalComment on above:Performed By: #### LIPID, CMP, TSH #### [facility] [address] [place] [address] Dr. Lissa Noel (RBC) [Entitic vol]89.7 sEVwruop93.0-94.0The [facility] HospitalComment on above:Performed By: #### LIPID, CMP, TSH #### [facility] [address] [place] [address] Dr. Lissa Moser #1.1 103/ulCritically high0.3-0.8Th[facility]ull [facility] Comment on above:Performed By: #### LIPID, CMP, TSH #### [facility] [address] [place] [address] Dr. Lissa Pedersenocytes/100 WBC (Bld)8.2 %Normal1.7-12.0[facility] Comment on above:Performed By: #### LIPID, CMP, TSH #### [facility] [address] [place] [address] Dr. Lissa Coulter #11.2 103/ulCritically high1.4-6.5The [facility] Comment on above:Performed By: #### LIPID, CMP, TSH #### [facility] [address] [place] [address] Dr. Lissa Frankelutrophils/100 WBC (Bld)79.9 %Critically high43.0-75.0The [facility] HospitalComment on above:Performed By: #### LIPID, CMP, TSH #### [facility] [address] [place] [address] Dr. Lissa SagePlatelet mean volume (Bld) [Entitic vol]10.0 fLNormal9.5-13.5The [facility] HospitalComment on above:Performed By: #### LIPID, CMP, TSH #### [facility] [address] [place] [address] Dr. Lissa SagePLT194 103/dtVackcn931-819Ipk [facility] HospitalComment on above: Performed By: #### LIPID, CMP, TSH #### [facility] [address] [place] [address] Dr. Lissa SageRBC4.46 106/ulCritically low4.70-6.10The [facility] HospitalComment on above:Performed By: #### LIPID, CMP, TSH #### [facility] [address] [place] [address] Dr. Lissa SageWBC14.0 103/ulCritically high4.0-11.0The [facility] HospitalComchelsea hospital on above:Performed By: #### LIPID, CMP, TSH #### [facility] [address] [place] [address] Dr. Lissa SageST. M[facility] GLUCOSEon 08-63-3630Wwnprst [Mass/Vol]243 mg/dL Critically fwkc46-938Iez [facility] HospitalComment on above:Performed By: #### LIPID, CMP, TSH #### [facility] [address] [place] [address] Dr. Lissa SageGlucose [Mass/Vol]132 mg/dLCritically dmed31-940Nhu [facility] HospitalComment on above:Performed By: #### LIPID, CMP, TSH #### [facility] [address] [place] [address] Dr. Yilan ChangGlucose [Mass/Vol]123 mg/dLCritically klpw95-710Lyc [facility] HospitalComment on above:Performed By: #### LIPID, CMP, TSH #### [facility] [address] [address] [address] Lissa TorresF CHEM 8 (BAS METB)on 42-61-2063Jqlpa gap [Moles/Vol]10.2 mmol/LNormalThe [facility] HospitalComment on above:Performed By: #### LIPID, CMP, TSH #### [facility] [address] [place] [address] Dr. Lissa SageCalcium [Mass/Vol]7.9 mg/dLCritically low8.5-10.1The [facility] Centerment on above:Performed By: #### LIPID, CMP, TSH #### [facility] [address] [place] [address] Dr. Lissa SageChloride [Moles/Vol]104 mmol/ELhlowl26-458Krd [facility] Comment on above:Performed By: #### LIPID, CMP, TSH #### [facility] [address] [place] [address] Dr. Lissa SageCO2 [Moles/Vol]25.4 mmol/TQbduos94.0-32.0The [facility] Comment on above:Performed By: #### LIPID, CMP, TSH #### [facility] [address] [place] [address] Dr. Lissa SageCreatinine [Mass/Vol]1.44 mg/dLCritically high0.70-1.30The [facility] HospitalComment on above:Performed By: #### LIPID, CMP, TSH #### [facility] [address] [place] [address] Dr. Alcaraz ChangEGFR-AF DJIBOUTIAN>60Normal>=60The [facility] Centerment on above:Performed By: #### LIPID, CMP, TSH #### [facility] [address] [place] [address] Dr. Lissa PalmaGFR-NON AF OPXNPZDI78 mL/min/1.01h8Qyiytbglkl low>=60The [facility] HospitalComment on above:Performed By: #### LIPID, CMP, TSH #### [facility] [address] [address] [address] Lissa SageGlucose [Mass/Vol]139 mg/dLCritically oqfo43-297Xwl [facility] HospitalComment on above:Performed By: #### LIPID, CMP, TSH #### [facility] [address] [address] [address] Lissa SagePotassium [Moles/Vol]4.6 mmol/LNormal3.5-5.1The [facility] Comment on above:Performed By: #### LIPID, CMP, TSH #### [facility] [address] [address] [address] Lissa SageSodium [Moles/Vol]135 mmol/LCritically uso642-638Qsk [facility] HospitalComment on above:Performed By: #### LIPID, CMP, TSH #### [facility] [address] [address] [address] Lissa SageUrea nitrogen [Mass/Vol]19.0 mg/dLCritically high7.0-18.0The [facility] HospitalComment on above:Performed By: #### LIPID, CMP, TSH #### [facility] [address] [address] [address] Lissa Kelly nitrogen/Creatinine [Mass ratio]13.2 mg/mgNormalThe [facility] HospitalComment on above:Performed By: #### LIPID, CMP, TSH #### [facility] [address] [address] [address] Lissa SageXR KUB 1 VIEWon [id number] KUB 1 VIEWEXAMINATION: XR KUB 1 VIEW [...] be in good position. Electronically authenticated by: NIÉS WARREN Date: 2022-03-29 15:22NormalThTrumbull Memorial HospitalAMYLASEon 69-76-5609Vcoozrr [Catalytic activity/Vol]21 U/L Critically goi94-213Lbd [facility] HospitalComment on above:Performed By: #### INFLUAB #### [facility] [address] [place] [address] Dr. Lissa Mccarty AUTO DIFFon [id number] #0.0 103/ulNormal0.0-0.1The [facility] HospitalComment on above:Performed By: #### LIPID, CMP, TSH #### [facility] [address] [place] [address] Dr. Lissa SageBasophils/100 WBC (Bld)0.2 %Normal0.2-2.0The [facility] Comment on above:Performed By: #### LIPID, CMP, TSH #### [facility] [address] [place] [address] #0.1 103/ulNormal0.0-0.7The [facility] HospitalComment on above: Performed By: #### LIPID, CMP, TSH #### [facility] [address] [place] [address] Dr. Lissa Palmaosinophils/100 WBC (Bld)0.8 %Critically low0.9-7.0The [facility] HospitalComment on above:Performed By: #### LIPID, CMP, TSH #### [facility] [address] [address] [address] Lissa Palmarythrocyte distribution width (RBC) [Ratio]14.2 %Xcbvtw04.0-15.0 The [facility] HospitalComment on above:Performed By: #### LIPID, CMP, TSH #### [facility] [address] [place] [address] Dr. Lissa SageHematocrit (Bld) [Volume fraction]46.8 %Ieadlh59.0-54.0The [facility] HospitalComment on above:Performed By: #### LIPID, CMP, TSH #### [facility] [address] [place] [address] Dr. Lissa SageHemoglobin (Bld) [Mass/Vol]14.6 g/kZIfsqku05.0-18.0The [facility] HospitalComment on above:Performed By: #### LIPID, CMP, TSH #### [facility] [address] [place] [address] Dr. Lissa Peterson #0.04 10e3/ulCritically high0.00-0.03The [facility] Comment on above:Performed By: #### LIPID, CMP, TSH #### [facility] [address] [place] [address] Dr. Lissa Peterson %0.4 %Normal0.0-0.5The [facility] HospitalComment on above: Performed By: #### LIPID, CMP, TSH #### [facility] [address] [place] [address] Dr. Lissa Haywood #1.6 103/ulNormal1.2-3.8The [facility] HospitalComment on above:Performed By: #### LIPID, CMP, TSH #### [facility] [address] [place] [address] Dr. Lissa Hassanhocytes/100 WBC (Bld)17.6 %Critically low20.5-60.0The [facility] HospitalComment on above:Performed By: #### LIPID, CMP, TSH #### [facility] [address] [place] [address] Dr. Lissa BlueUAL DIFF REQNONormalThe [facility] HospitalComment on above: Performed By: #### LIPID, CMP, TSH #### [facility] [address] [place] [address] Dr. Lissa Hsu (RBC) [Entitic mass]28.0 nfTacges65.9-34.0The [facility] HospitalComment on above:Performed By: #### LIPID, CMP, TSH #### [facility] [address] [place] [address] Dr. Lissa Noel (RBC) [Mass/Vol]31.2 g/uSMyxfaj72.9-35.2The [facility] HospitalComment on above:Performed By: #### LIPID, CMP, TSH #### [facility] [address] [place] [address] Dr. Lissa Noel (RBC) [Entitic vol]89.7 eXLqdngj62.0-94.0The [facility] HospitalComment on above:Performed By: #### LIPID, CMP, TSH #### [facility] [address] [place] [address] Dr. Lissa Moser #0.3 103/ulNormal0.3-0.8The [facility] HospitalComment on above:Performed By: #### LIPID, CMP, TSH #### [facility] [address] [place] [address] Dr. Lissa Pedersenocytes/100 WBC (Bld)3.1 %Normal1.7-12.0The [facility] Comment on above:Performed By: #### LIPID, CMP, TSH #### [facility] [address] [place] [address] Dr. Lissa Coulter #7.2 103/ulCritically high1.4-6.5The [facility] Comment on above:Performed By: #### LIPID, CMP, TSH #### [facility] [address] [place] [address] Dr. Lissa Altamiranoophils/100 WBC (Bld)77.9 %Critically high43.0-75.0The [facility] HospitalComment on above:Performed By: #### LIPID, CMP, TSH #### [facility] [address] [place] [address] Dr. Lissa Quintero mean volume (Bld) [Entitic vol]10.0 fLNormal9.5-13.5The [facility] HospitalComment on above:Performed By: #### LIPID, CMP, TSH #### [facility] [address] [place] [address] Dr. Lissa SagePLT248 103/leQjyvip119-530Sxb [facility] HospitalComment on above: Performed By: #### LIPID, CMP, TSH #### [facility] [address] [address] [address] Lissa SageRBC5.22 106/ulNormal4.70-6.10The [facility] HospitalComment on above:Performed By: #### LIPID, CMP, TSH #### [facility] [address] [address] [address] Lissa SageWBC9.3 103/ulNormal4.0-11.0The [facility] HospitalComment on above: Performed By: #### LIPID, CMP, TSH #### [facility] [address] [address] [address] Lissa SageCT ABD/PELVIS WO CONon [id number] ABD/PELVIS WO CONEXAMINATION: CT ABD/PELVIS WO CON, [...] body habitus and exclusion from the scan qowiq-yq-yout. IMPRESSION: A 16 x 27 mm calculus [...] Electronically authenticated by: CHAPO TAYLOR Date: 2022-03-28 05:50NoGenesis HospitalCovid-19 PCR (CVDTBH)on [id number]-CoV-2 (COVID-19) RNA JOHN+probe Ql (Unsp spec)Not detectedNormalNOT DETECTEDThe [facility] Comment on above:Result Comment: When diagnostic [...] for this test is supported by the Performance Analyst of Health and Human Service's declaration that [...] used).Performed By: #### LIPID, CMP, TSH #### [facility] [address] [address] [address] Lissa Birch URINE PROFILEon 98-04-9659Ohzmyzzmf Ql (U)NegativeNormal NEGATIVEOhioHealth Nelsonville Health Centerment on above:Performed By: #### LIPID, CMP, TSH #### [facility] [address] [address] [address] Lissa SageClarity (U)CLEARNormalCLEARSelect Medical [facility]woodComchel[facility] hospital on above: Performed By: #### LIPID, CMP, TSH #### [facility] [address] [address] [address] Lissa SageColor (U)YELLOWNormalYELLOWSelect Medical [facility] Hospital, BeachwoodComment on above: Performed By: #### LIPID, CMP, TSH #### [facility] [address] [address] [address] Lissa Scott micrscopic examination will be performed if indicated. NormalSelect Medical Cleveland Clinic Rehabilitation Hospital, BeachwoodComment on above:Performed By: #### LIPID, CMP, TSH #### [facility] [address] [address] [address] Lissa SageGlucose Ql (U)NegativeNormalNEGATIVESelect Medical [facility]woodComchelsea hospital on above:Performed By: #### LIPID, CMP, TSH #### [facility] [address] [address] [address] Lissa SageHemoglobin Ql (U)SMALLAbnormalNEGATIVESouthview Medical Center on above:Performed By: #### LIPID, CMP, TSH #### [facility] [address] [address] [address] Lissa SageKetones Ql (U)NegativeNormalNEGATIVEMarymount Hospital on above:Performed By: #### LIPID, CMP, TSH #### [facility] [address] [address] [address] Lissa ThorpeOCYTESSMALLAbnormalNEGATIVESelect Medical [facility]woodComchelsea hospital on above:Performed By: #### LIPID, CMP, TSH #### [facility] [address] [address] [address] Lissa Narayanan Ql (U)PositiveAbnormalNEGATIVEThe [facility] Comment on above:Performed By: #### LIPID, CMP, TSH #### [facility] [address] [place] [address] Dr. Lissa SagepH (U)6.0 [pH]Normal5-9The [facility] HospitalComment on above: Performed By: #### LIPID, CMP, TSH #### [facility] [address] [place] [address] Dr. Lissa SageSPEC GRAVITY>=1.340Ywcdhkxf5.005-<=1.025The [facility] Comment on above:Performed By: #### LIPID, CMP, TSH #### [facility] [address] [place] [address] Dr. Lissa Guerra PROTEINTRACENormalNEGATIVE/ TRACEThe [facility] HospitalComment on above:Performed By: #### LIPID, CMP, TSH #### [facility] [address] [place] [address] Dr. Lissa Trivedi MICRO INDINDICATEDNormalThTrumbull Memorial HospitalComment on above: Performed By: #### LIPID, CMP, TSH #### [facility] [address] [place] [address] Dr. Lissa Michaudbilearl Qn (U)1.0 {Gurpreet'U}/dLNormal0.2 - 1.0[facility], BeachwoodComment on above:Performed By: #### LIPID, CMP, TSH #### [facility] [address] [place] [address] Dr. Lissa SageLIPASEon [id number] [Catalytic activity/Vol]64.0 U/L Critically low73.0-393.0The [facility] HospitalComment on above:Performed By: #### INFLUAB #### [facility] [address] [place] [address] Dr. Lissa SageEAST SETAUKET OF CARE GLUCOSEon [id number] [Mass/Vol]114 mg/dL Critically uiyt76-787Jzw [facility] HospitalComment on above:Performed By: #### POCGLUC #### [facility] [address] [address] [address] Lissa SageGlucose [Mass/Vol]189 mg/dLCritically vxma46-060Yku [facility] HospitalComment on above:Performed By: #### LIPID, CMP, TSH #### [facility] [address] [address] [address] Lissa SagePROF 14(COMP METB)on 18-07-9129Pnlvasz [Mass/Vol]3.2 g/dL Critically low3.4-5.0The [facility] HospitalComment on above:Performed By: #### INFLUAB #### [facility] [address] [address] [address] Lissa SageAlbumin/Globulin [Mass ratio]0.8 {ratio}NormalThe [facility] HospitalComment on above:Performed By: #### INFLUAB #### [facility] [address] [address] [address] Lissa CooperP [Catalytic activity/Vol]87 U/NYjbrnc04-528Uoo [facility] HospitalComment on above:Performed By: #### INFLUAB #### [facility] [address] [address] [address] Lissa Fox [Catalytic activity/Vol]21 U/BTnopqc66-00Ffd [facility] HospitalComment on above:Performed By: #### INFLUAB #### [facility] [address] [address] [address] Lissa Page gap [Moles/Vol]13.7 mmol/LNormalThe [facility] Comment on above:Performed By: #### INFLUAB #### [facility] [address] [address] [address] Lissa SageAST [Catalytic activity/Vol]14 U/LCritically qby11-22Wtq [facility] HospitalComment on above:Performed By: #### INFLUAB #### [facility] [address] [address] [address] Lissa SageBilirubin [Mass/Vol]1.0 mg/dLNormal0.2-1.0The [facility] Comment on above:Performed By: #### INFLUAB #### [facility] [address] [address] [address] Lissa SageCalcium [Mass/Vol]8.3 mg/dLCritically low8.5-10.1The [facility] HospitalComment on above:Performed By: #### INFLUAB #### [facility] [address] [address] [address] Lissa SageChloride [Moles/Vol]104 mmol/WAmakuy29-762Czf [facility] Comment on above:Performed By: #### INFLUAB #### [facility] [address] [address] [address] Lissa SageCO2 [Moles/Vol]22.7 mmol/SZrciln74.0-32.0The [facility] Comment on above:Performed By: #### INFLUAB #### [facility] [address] [address] [address] Lissa SageCreatinine [Mass/Vol]1.10 mg/dLNormal0.70-1.30The [facility] HospitalComment on above:Performed By: #### INFLUAB #### [facility] [address] [address] [address] Lissa PalmaGFR-AF DJIBOUTIAN>60Normal>=60The [facility] HospitalComment on above:Performed By: #### INFLUAB #### [facility] [address] [address] [address] Lissa PalmaGFR-NON AF DJIBOUTIAN>60Normal>=60The [facility] HospitalComment on above:Performed By: #### INFLUAB #### [facility] [address] [address] [address] Lissa SageGlobulin (S) [Mass/Vol]4.2 g/dLNormalThe [facility] HospitalComment on above:Performed By: #### INFLUAB #### [facility] [address] [address] [address] Lissa SageGlucose [Mass/Vol]148 mg/dLCritically putd05-573Fnf [facility] HospitalComment on above:Performed By: #### INFLUAB #### [facility] [address] [address] [address] Lissa SagePotassium [Moles/Vol]4.4 mmol/LNormal3.5-5.1The [facility] Comment on above:Performed By: #### INFLUAB #### [facility] [address] [address] [address] Lissa SageProtein [Mass/Vol]7.4 g/dLNormal6.4-8.2The [facility] Comment on above:Performed By: #### INFLUAB #### [facility] [address] [address] [address] Lissa SageSodium [Moles/Vol]136 mmol/NKqjwer181-422Nqz [facility] Comment on above:Performed By: #### INFLUAB #### [facility] [address] [address] [address] Lissa SageUrea nitrogen [Mass/Vol]17.0 mg/dLNormal7.0-18.0The [facility] HospitalComment on above:Performed By: #### INFLUAB #### [facility] [address] [address] [address] Lissa Kelly nitrogen/Creatinine [Mass ratio]15.5 mg/mgNoGenesis HospitalComment on above:Performed By: #### INFLUAB #### [facility] [address] [address] [address] Lissa Rocha MICROSCOPIC ONLYon [id number]A SEEN [facility], BeachwoodComment on above:Performed By: #### LIPID, CMP, TSH #### [facility] [address] [address] [address] Lissa Jacinto identified Cx Nom (U)INDICATEDEast [place] Regional HospitalComment on above:Performed By: #### LIPID, CMP, TSH #### [facility] [address] [address] [address] Lissa Burns SEENBothwell Regional Health CenteralNONE SEENSelect [facility] Hospital, BeachwoodComment on above:Performed By: #### LIPID, CMP, TSH #### [facility] [address] [address] [address] Lissa Vigil LM Nom (Urine sed)NONE SEENNormalNONE SEENThe [facility] on above:Performed By: #### LIPID, CMP, TSH #### [facility] [address] [address] [address] Lissa Taylorthelial cells LM Ql (Urine sed)FEWAbnormalNONE SEEN /RAREThe [facility] HospitalComment on above:Performed By: #### LIPID, CMP, TSH #### [facility] [address] [address] [address] Lissa MirelesCOUSNONE SEENNormalNONE SEENThe [facility] HospitalComment on above:Performed By: #### LIPID, CMP, TSH #### [facility] [address] [address] [address] Lissa ParmarVwbprGGK5-02Jetawsnn3-5Owz [facility] Centerment on above:Performed By: #### LIPID, CMP, TSH #### [facility] [address] [address] [address] Lissa SageHuthoILX60-73VfwryivkIKQH SEENThe [facility] Medical Centerment on above: Performed By: #### LIPID, CMP, TSH #### [facility] [address] [address] [address] Lissa Mccarty AUTO DIFFon [id number] #0.0 103/ulNormal0.0-0.1The [facility] Medical Centerment on above:Performed By: #### LIPID, CMP, TSH #### [facility] [address] [address] [address] Lissa SageBasophils/100 WBC (Bld)0.3 %Normal0.2-2.0The [facility] Comment on above:Performed By: #### LIPID, CMP, TSH #### [facility] [address] [address] [address] #0.1 103/ulNormal0.0-0.7The [facility] HospitalComment on above: Performed By: #### LIPID, CMP, TSH #### [facility] [address] [place] [address] Dr. Lissa Palmaosinophils/100 WBC (Bld)1.1 %Normal0.9-7.0The [facility] Comment on above:Performed By: #### LIPID, CMP, TSH #### [facility] [address] [place] [address] Dr. Lissa Palmarythrocyte distribution width (RBC) [Ratio]13.4 %Wucfxc38.0-15.0 The [facility] Medical Centerment on above:Performed By: #### LIPID, CMP, TSH #### [facility] [address] [place] [address] Dr. Lissa SageHematocrit (Bld) [Volume fraction]44.9 %Wmildn73.0-54.0The [facility] Medical Centerment on above:Performed By: #### LIPID, CMP, TSH #### [facility] [address] [place] [address] Dr. Lissa SageHemoglobin (Bld) [Mass/Vol]14.2 g/eXLhfnje84.0-18.0The [facility] Centerment on above:Performed By: #### LIPID, CMP, TSH #### [facility] [address] [place] [address] Dr. Lissa Peterson #0.02 10e3/ulNormal0.00-0.03The [facility] Centerment on above:Performed By: #### LIPID, CMP, TSH #### [facility] [address] [place] [address] Dr. Lissa Peterson %0.3 %Normal0.0-0.5The [facility] Centerment on above: Performed By: #### LIPID, CMP, TSH #### [facility] [address] [place] [address] Dr. Lissa Haywood #2.8 103/ulNormal1.2-3.8The [facility] HospitalComment on above:Performed By: #### LIPID, CMP, TSH #### [facility] [address] [place] [address] Dr. Lissa Sampsonmphocytes/100 WBC (Bld)37.4 %Knzccy67.5-60.0The [facility] HospitalComment on above:Performed By: #### LIPID, CMP, TSH #### [facility] [address] [place] [address] Dr. Lissa Cuello DIFF REQNONormalThe [facility] HospitalComment on above: Performed By: #### LIPID, CMP, TSH #### [facility] [address] [place] [address] Dr. Lissa Noel (RBC) [Entitic mass]27.8 duDvtylt22.9-34.0The [facility] HospitalComment on above:Performed By: #### LIPID, CMP, TSH #### [facility] [address] [place] [address] Dr. Lissa Noel (RBC) [Mass/Vol]31.6 g/dLUaslum62.9-35.2The [facility] HospitalComment on above:Performed By: #### LIPID, CMP, TSH #### [facility] [address] [place] [address] Dr. Lissa Bridges (RBC) [Entitic vol]87.9 gYMewfdw66.0-94.0The [facility] HospitalComment on above:Performed By: #### LIPID, CMP, TSH #### [facility] [address] [place] [address] Dr. Lissa Moser #0.5 103/ulNormal0.3-0.8The [facility] Centerment on above:Performed By: #### LIPID, CMP, TSH #### [facility] [address] [place] [address] Dr. Lissa Pedersenocytes/100 WBC (Bld)6.6 %Normal1.7-12.0The [facility] Comment on above:Performed By: #### LIPID, CMP, TSH #### [facility] [address] [place] [address] Dr. Yilan ChangNEUT #4.1 103/ulNormal1.4-6.5The [facility] HospitalComment on above:Performed By: #### LIPID, CMP, TSH #### [facility] [address] [address] [address] Lissa Frankelutrophils/100 WBC (Bld)54.3 %Qzbdux73.0-75.0The [facility] HospitalComchelsea hospital on above:Performed By: #### LIPID, CMP, TSH #### [facility] [address] [address] [address] Lissa SagePlatelet mean volume (Bld) [Entitic vol]9.3 fLCritically low 9.5-13.5The [facility] HospitalComment on above:Performed By: #### LIPID, CMP, TSH #### [facility] [address] [address] [address] Lissa SagePLT286 103/beGifibt119-895Brs [facility] HospitalComchelsea hospital on above: Performed By: #### LIPID, CMP, TSH #### [facility] [address] [address] [address] Lissa SageRBC5.11 106/ulNormal4.70-6.10The [facility] HospitalComchelsea hospital on above:Performed By: #### LIPID, CMP, TSH #### [facility] [address] [address] [address] Lissa SageWBC7.5 103/ulNormal4.0-11.0The [facility] HospitalComchelsea hospital on above: Performed By: #### LIPID, CMP, TSH #### [facility] [address] [place] [address] Dr. Lissa SageGLYCOHEMOGLOBIN A1Con [id number] RECOMMENDATIONSEE BELOWKettering Health DaytonComchelsea hospital on above:Result Comment: ADA RECOMMENDED LIMIT 4.0 - 6.0 ADA THERAPEUTIC TARGET < 7.0 ACTION SUGGESTED > 7.0Performed By: #### A1C #### [facility] [address] [place] [address] Dr. Lissa SageGlucose [Mass/Vol]128 mg/dLNormalThTrumbull Memorial HospitalComment on above:Performed By: #### A1C #### [facility] [address] [address] [address] Lissa SageHbA1c (Bld) [Mass fraction]6.1 %Normal4.5-6.2The [facility] HospitalComment on above:Performed By: #### A1C #### [facility] [address] [address] [address] Lissa VillagranID PROFILEon [id number]-HDL RATIO NORMSEE [facility] MemorialComment on above:Result Comment: 3.3 - 4.4 LOW RISK 4.4 - 7.1 AVERAGE RISK 7.1 - 11.0 MODERATE RISK >11.0 HIGH RISKPerformed By: #### LIPID, CMP, TSH #### [facility] [address] [address] [address] Lissa Brooksesterol [Mass/Vol]137 mg/dLNormal<=200The [facility] Comment on above:Performed By: #### LIPID, CMP, TSH #### [facility] [address] [address] [address] Lissa Brooksesterol in HDL [Mass/Vol]41 mg/yYUkzgzl53-05Ctx [facility] HospitalComchelsea hospital on above:Performed By: #### LIPID, CMP, TSH #### [facility] [address] [address] [address] Lissa SaegCholesterol in LDL [Mass/Vol]70.4 mg/dLEast [place] Regional HospitalComment on above:Performed By: #### LIPID, CMP, TSH #### [facility] [address] [address] [address] Lissa Brooksesterevy.total/Cholesterol in HDL [Mass ratio]3.3 {ratio} NormalThe [facility] on above:Performed By: #### LIPID, CMP, TSH #### [facility] [address] [place] [address] Dr. Lissa SageHDL NORMAL> or = 60 mg/dl - LOW CARDIOVASCULAR RISK <40 mg/dl - HIGH CARDIOVASCULAR RISKNoGenesis HospitalComment on above:Performed By: #### LIPID, CMP, TSH #### [facility] [address] [address] [address] Lissa SageLDL CALC NORMALSEE BELOWEast [place] Regional HospitalComment on above:Result Comment: <100 mg/dl OPTIMAL 100 - 129 mg/dl NEAR OR ABOVE OPTIMAL 130 - 159 mg/dl BORDERLINE HIGH 160 - 189 mg/dl HIGH >190 mg/dl VERY HIGH Performed By: #### LIPID, CMP, TSH #### [facility] [address] [address] [address] Lissa SageTriglyceride [Mass/Vol]128 mg/dLNormal<=150The [facility] Comment on above:Performed By: #### LIPID, CMP, TSH #### [facility] [address] [address] [address] Lissa SageVLDL CALC25.6 mg/dLNoGenesis HospitalComment on above: Performed By: #### LIPID, CMP, TSH #### [facility] [address] [place] [address] Dr. Lissa SagePROF 14(COMP METB)on 26-09-1252Djzofnf [Mass/Vol]3.5 g/dLNormal 3.4-5.0The [facility] on above:Performed By: #### LIPID, CMP, TSH #### [facility] [address] [address] [address] Lissa SageAlbumin/Globulin [Mass ratio]0.9 {ratio}NormalThe [facility] HospitalComchelsea hospital on above:Performed By: #### LIPID, CMP, TSH #### [facility] [address] [address] [address] Lissa Hayden [Catalytic activity/Vol]79 U/CHiptmq66-853Bgu [facility] on above:Performed By: #### LIPID, CMP, TSH #### [facility] [address] [place] [address] Dr. Lissa Fox [Catalytic activity/Vol]28 U/KYctqrh63-95Alh [facility] HospitalComment on above:Performed By: #### LIPID, CMP, TSH #### [facility] [address] [address] [address] Lissa Page gap [Moles/Vol]10.5 mmol/LNormalThe [facility] Comment on above:Performed By: #### LIPID, CMP, TSH #### [facility] [address] [address] [address] Lissa SageAST [Catalytic activity/Vol]20 U/HBsnrgl66-06Mit [facility] HospitalComment on above:Performed By: #### LIPID, CMP, TSH #### [facility] [address] [address] [address] Lissa SageBilirubin [Mass/Vol]0.7 mg/dLNormal0.2-1.0The [facility] Comment on above:Performed By: #### LIPID, CMP, TSH #### [facility] [address] [place] [address] Dr. Lissa SageCalcium [Mass/Vol]8.6 mg/dLNormal8.5-10.1[facility] [place] Comment on above:Performed By: #### LIPID, CMP, TSH #### [facility] [address] [place] [address] Dr. Lissa SageChloride [Moles/Vol]101 mmol/DUpakvt02-418Ogf [facility] Comment on above:Performed By: #### LIPID, CMP, TSH #### [facility] [address] [place] [address] Dr. Lissa SageCO2 [Moles/Vol]28.6 mmol/EPmpsgf90.0-32.0The [facility] Comment on above:Performed By: #### LIPID, CMP, TSH #### [facility] [address] [place] [address] Dr. Lissa SageCreatinine [Mass/Vol]0.87 mg/dLNormal0.70-1.30The [facility] HospitalComment on above:Performed By: #### LIPID, CMP, TSH #### [facility] [address] [place] [address] Dr. Yilan ChangEGFR-AF DJIBOUTIAN>60Normal>=60The [facility] HospitalComment on above:Performed By: #### LIPID, CMP, TSH #### [facility] [address] [place] [address] Dr. Lissa PalmaGFR-NON AF DJIBOUTIAN>60Normal>=60The [facility] HospitalComment on above:Performed By: #### LIPID, CMP, TSH #### [facility] [address] [place] [address] Dr. Lissa SageGlobulin (S) [Mass/Vol]3.9 g/dLNormalThe [facility] HospitalComment on above:Performed By: #### LIPID, CMP, TSH #### [facility] [address] [place] [address] Dr. iLssa SageGlucose [Mass/Vol]115 mg/dLCritically rbxq96-369Ysa [facility] HospitalComment on above:Performed By: #### LIPID, CMP, TSH #### [facility] [address] [place] [address] Dr. Lissa SagePotassium [Moles/Vol]4.1 mmol/LNormal3.5-5.1The [facility] Comment on above:Performed By: #### LIPID, CMP, TSH #### [facility] [address] [place] [address] Dr. Lissa SageProtein [Mass/Vol]7.4 g/dLNormal6.4-8.2[facility] [place] Comment on above:Performed By: #### LIPID, CMP, TSH #### [facility] [address] [place] [address] Dr. Lissa SageSodium [Moles/Vol]136 mmol/YYpfcuh149-506Gtg [facility] Comment on above:Performed By: #### LIPID, CMP, TSH #### [facility] [address] [place] [address] Dr. Lissa SageUrea nitrogen [Mass/Vol]19.0 mg/dLCritically high7.0-18.0The [facility] HospitalComment on above:Performed By: #### LIPID, CMP, TSH #### [facility] [address] [address] [address] Lissa SageUrea nitrogen/Creatinine [Mass ratio]21.8 mg/mgNormalThe [facility] HospitalComment on above:Performed By: #### LIPID, CMP, TSH #### [facility] [address] [address] [address] Lissa SageTSHofredrick 13-24-0625SHW6.650 uIU/mLNormal0.358-3.740[facility], BeachwoodComment on above:Performed By: #### LIPID, CMP, TSH #### [facility] [address] [place], [place] [address] Dr. Lissa Sage Vital Signs Date TimeVital SignValuePerforming GvmyojnqhYecziosd25-84-0078 09:05-0400Body smidli470.42 [facility]06[facility]20[facility] 09:05-0400Body mass index (BMI) [Ratio]45.8 kg/x3DrxdoijuiWexner Medical Center06-09-2025 09:05-0400Body bydzel822.56 kgWexner Medical Center06-09-2025 09:05-0400Diastolic blood toibwgze17 mm[Hg][facility] 11-17-2024 09:05-0400Heart rate94 /[facility] 11-17-2024 09:05-0400Respiratory rate12 /[facility] 11-17-2024 09:05-0400Systolic blood pcvgiqjr095 mm[Hg][facility]01-10-2025 10:39-0500Body wjuteq544.42 cmW[facility] Center01-10-2025 10:39-0500Body mass index (BMI) [Ratio]44.7 kg/s7HrxnfxvmmWexner Medical Center01-10-2025 10:39-0500Body nmnqwi986.76 kgWexner Medical Center01-10-2025 10:39-0500Diastolic blood mm[Hg] [facility]01-10-2025 10:39-0500Heart rate76 /[facility]01-10-2025 10:39-0500Respiratory rate12 /minWexner Medical Center01-10-2025 10:39-0500Systolic blood zjojkfdp694 mm[Hg] [facility]12-05-2024 14:54-0500Blood Pressure Location DONNA RIVERA [facility]12-05-2024 14:54-0500Diastolic blood lnaigitp40 mm[Hg]DONNA RIVERA [facility]12-05-2024 14:54-0500Heart rate82 /minJEANIBAL RIVERA [facility]12-05-2024 14:54-0500Systolic blood ofzeosci592 mm[Hg]DONNA RIVERA [facility]12-05-2024 09:12-0500Body eqhmkq132.42 cmW[facility] Center12-05-2024 09:12-0500Body mass index (BMI) [Ratio]44.4 kg/v0VnsqivupiWexner Medical Center12-05-2024 09:12-0500Body wgerbl976.57 [facility]12-05-2024 09:12-0500Diastolic blood tjmkakru53 mm[Hg] [facility]12-05-2024 09:12-0500Heart wofd054 /min [facility]12-05-2024 09:12-0500Respiratory rate12 /min [facility]12-05-2024 09:12-0500Systolic blood nfozfbwd187 mm[Hg][facility]09-03-2024 14:31-0400Body mzldtu560.42 cmWexner Medical Center09-03-2024 14:31-0400Body mass index (BMI) [Ratio]42.7 kg/q3RcxxzkwhqWexner Medical Center09-03-2024 14:31-0400Body .07 kgWexner Medical Center09-03-2024 14:31-0400Diastolic blood snufktrf82 mm[Hg][facility]09-03-2024 14:31-0400 Heart rate93 /[facility]09-03-2024 14:31-0400 Respiratory rate12 /[facility]09-03-2024 14:31-0400 Systolic blood mm[Hg][facility]06-26-2024 12:55-0400Body ddygri727.5 Farhan Toussaint MD Work Phone: [facility]06-26-2024 12:55-0400Body mass index (BMI) [Ratio]38.75 kg/g8PqdtsAngélica Toussaint MD Work Phone: [facility]06-26-2024 12:55-0400Body xgwesc481.62 kgAngélica Toussaint MD Work Phone: [facility]05-22-2024 15:06-0400Body ngdjir159.42 cmW[facility]ner Medical Center05-22-2024 15:06-0400Body mass index (BMI) [Ratio]41.8 kg/l7YnedvutpbWexner Medical Center05-22-2024 15:06-0400Body nrflum424.78 kgWexner Medical Center05-22-2024 15:06-0400Diastolic blood etlzchcf14 mm[Hg][facility] 10-31-2023 15:06-0400Heart rate98 /[facility] 10-31-2023 15:06-0400Respiratory rate12 /[facility] 10-31-2023 15:06-0400Systolic blood tqaeinzq906 mm[Hg][facility]05-14-2024 11:23-0400Diastolic blood mm[Hg]DONNA RIVERA [facility]05-14-2024 11:23-0400Heart atkl521 /Taina RIVERA [facility]05-14-2024 11:23-0400Respiratory rate16 /minJENNIFER MARQUISE [facility]05-14-2024 11:23-0400Systolic blood mm[Hg]DONNA RIVERA [facility]03-27-2024 12:46-0400Body aqmgtv343.5 cmDavid Sell PA Work Phone: [facility]03-27-2024 12:46-0400Body mass index (BMI) [Ratio]38.25 kg/w8Gnmtl Sell PA Work Phone: [facility]03-27-2024 12:46-0400Body cwdaaw648.8 kgDavid Sell PA Work Phone: [facility]03-27-2024 12:46-0400Diastolic blood ydifsilz64 mm[Hg]Darrell Sell PA Work Phone: [facility]03-27-2024 12:46-0400Heart rate 93 /minDavid Sell PA Work Phone: [facility]03-27-2024 12:46-0400Systolic blood mm[Hg]Darrell Sell PA Work Phone: [facility]01-22-2024 15:00-0500Body pcjodj943.42 cmBenjamin Ball Other [facility]01-22-2024 15:00-0500 Body mass index (BMI) [Ratio]43.14 kg/z5Wsphlcme Ball Other [employer] Other 01-22-2024 15:00-0500Body .33 kgBenjamin Ball Other [employer] Other 01-22-2024 15:00-0500Body jujpiv408.32 kgDO Awais Garcia Work Phone: [facility]01-22-2024 15:00-0500 Diastolic blood buezgkxq62 mm[Hg]Awais Garcia Other [facility]01-22-2024 15:00-0500 Respiratory rate12 /minBenjamin Ball Other [place] [employer] Other 01-22-2024 15:00-0500Systolic blood cicrnkhe585 mm[Hg] Awais Garcia Other [facility]12-20-2023 14:10-0500 Body jihtgj583.5 cmMarc Waggoner MD Work Phone: [facility] [employer] Xluxib26-75-7718 14:10-0500Body mass index (BMI) [Ratio]39.53 kg/c4KlastrwyvMarc Waggoner MD Work Phone: [facility] [employer] Ssioof19-87-0234 14:10-0500Body qrfeae934.47 kgMarc Waggoner MD Work Phone: [facility] [employer] Nspche64-81-9686 14:10-0500Diastolic blood kgrhtabo78 mm[Hg]Marc Waggoner MD Work Phone: [facility] [employer] Prvmek66-15-3919 14:10-0500Heart rate 85 /minMarc Waggoner MD Work Phone: [facility] [phone] 14:10-0500Systolic blood ofrcztld506 mm[Hg]Marc Waggoner MD Work Phone: [facility] Xtszod96-70-6726 10:07-0400Blood Pressure LocationJEMAMIPARMJIT RIVERA [facility]09-12-2023 10:07-0400Diastolic blood hhjgevua61 mm[Hg]DONNA MARQUISE [facility]09-12-2023 10:07-0400Heart rate88 /minJENNIFER MARQUISE [facility]09-12-2023 10:07-0400Systolic blood vpjomuuk048 mm[Hg]DONNA RIVERA [facility]08-30-2023 13:45-0400Body qiclkm931.42 cmBenjamin Ball Other [employer] Other 08-30-2023 13:45-0400Body mass index (BMI) [Ratio] 37.81 kg/r6Ljfngnjd Ball Other [employer] Other 08-30-2023 13:45-0400Body eemgnu920 kgBenjamin Ball Other [employer] Other 08-30-2023 13:45-0400Diastolic blood ulzjpuve17 mm[Hg] Awais Ball Other [employer] Other 08-30-2023 13:45-0400Respiratory rate12 /minBenjamin Ball Other [employer] Other 08-30-2023 13:45-0400Systolic blood mm[Hg] Awais Ball Other [employer] Other 08-16-2023 18:56-0400Body onijafjgxaq62.8 [degF] PHYSICIAN NO [facility]08-16-2023 18:56-0400 Diastolic blood alwfgjlh49 mm[Hg]PHYSICIAN NO [facility]08-16-2023 18:56-0400Heart rate91 /minPHYSICIAN [facility]08-16-2023 18:56-0400Respiratory rate18 /minPHYSICIAN [facility]08-16-2023 18:56-0429QsE2% (BldA) [Mass fraction]96 %PHYSICIAN NO [facility]08-16-2023 18:56-0400Systolic blood haoobfge575 mm[Hg]PHYSICIAN NO [facility]08-15-2023 11:42-0400Body xgsnad080.5 cmPHYSICIAN [facility]08-13-2023 05:16-0400Body .2 kg PHYSICIAN NO [facility]08-01-2023 15:15-0400Body hhzrznijvof45.3 [degF]PHYSICIAN NO [facility] 01-09-2023 15:15-0400Diastolic blood sxbglipd38 mm[Hg]PHYSICIAN NO [facility]08-01-2023 15:15-0400Heart rate82 /minPHYSICIAN [facility]08-01-2023 15:15-0400Respiratory rate 16 /minPHYSICIAN [facility]08-01-2023 15:15-0400 SaO2% (BldA) [Mass fraction]96 %PHYSICIAN NO [facility]08-01-2023 15:15-0400Systolic blood oittaehp616 mm[Hg]PHYSICIAN NO [facility]08-01-2023 12:06-0400Body ygrbel623.5 cm PHYSICIAN NO [facility]08-01-2023 09:32-0400Body lydbcy182.5 cmPHYSICIAN [facility]08-01-2023 09:32-0400Body wgezuavkhms43.9 [degF]PHYSICIAN NO [facility]08-01-2023 09:32-0400Body aqfjnx121.95 kgPHYSICIAN [facility]08-01-2023 09:32-0400Diastolic blood ckerltgt94 mm[Hg]PHYSICIAN NO [facility]08-01-2023 09:32-0400 Heart rate90 /minPHYSICIAN NO [facility]08-01-2023 09:32-0400Respiratory rate22 /minPHYSICIAN NO [facility]08-01-2023 09:32-4356RbS1% (BldA) [Mass fraction]97 %PHYSICIAN [facility]08-01-2023 09:32-0400Systolic blood qtgifxyi227 mm[Hg]PHYSICIAN NO [facility]07-30-2023 05:10-0400 Body .4 kgPHYSICIAN NO [facility] 08-31-2022 09:30-0400Body arpjfn856.42 cmBenjamin Ball Other [employer] Other 03-23-2023 09:30-0400Body mass index (BMI) [Ratio]46.2 kg/x3Elfqbqce Ball Other [employer] Other 03-23-2023 09:30-0400Body .85 kgBenjamin Ball Other [employer] Other 03-23-2023 09:30-0400Diastolic blood nqmgnoig36 mm[Hg] Awais Ball Other [employer] Other 03-23-2023 09:30-0400Respiratory rate12 /minBenjamin Ball Other [employer] Other 03-23-2023 09:30-0400Systolic blood yhfkwhft362 mm[Hg] Awais Ball Other [employer] Other 996638-49-4329 13:44-0500Body .5 cmPacc 2 Work Phone: [facility]12-08-2022 13:44-0500Body temperature 97.5 [degF]Pacc 2 Work Phone: [phone]12-08-2022 13:44-0500Body .39 kgPacc 2 Work Phone: [facility]12-08-2022 13:44-0500Diastolic blood wjlbwaar32 mm[Hg]Pacc 2 Work Phone: [facility]12-08-2022 13:44-0500Heart jjfx386 /minPacc 2 Work Phone: [facility]12-08-2022 13:44-1011AwR1% (BldA) [Mass fraction]96 %Pacc 2 Work Phone: [facility]12-08-2022 13:44-0500Systolic blood asvbtosu609 mm[Hg]Pacc 2 Work Phone: [facility]11-29-2022 13:06-0500Body ybqqdm571.5 cmHarsh Coffey MD Work Phone: [place] [address]-29-2022 13:06-0500Body xkbfyf406.03 kgHarsh Coffey MD Work Phone: [facility]Xnhwao47-39-4561 13:06-0500Diastolic blood eouemzwe28 mm[Hg]Harsh Coffey MD Work Phone: [facility] HospitalRxlkca88-68-1080 13:06-0500Heart ggxh492 /minHarsh Coffey MD Work Phone: [place] [address]-29-2022 13:06-0500Systolic blood zvhdjtjo068 mm[Hg]Harsh Coffey MD Work Phone: [facility] HospitalVuygnl17-57-0165 13:14-0400Blood Pressure LocationKonrad LILLY [facility] [place] 349871-02-2022 13:14-0400Diastolic blood siscneko12 mm[Hg]Konrad LILLY [facility] [place] 349871-02-2022 13:14-0400Heart rate81 /minKonrad LILLY [facility] [place] 349871-02-2022 13:140400Respiratory rate16 /minKonrad LILLY [facility] [place] 349871-02-2022 13:14-0400Systolic blood tetgsukl566 mm[Hg]Konrad LILLY [facility] Encounters Encounter DateEncounter TypeCare ProviderFacilityStart: 03-19-2025 End: 50-07-8811awdpodvusdQhzbhqqr Ball DO Work Phone: [facility] Work Phone: Start: 03-19-2025 End: 91-31-6554Jdxbnjz encounter Keshawn Zayas MD-[facility] Work Phone: Start: 02-16-2025 End: 83-28-9094ppycifsxfhWkhyrzwv Ball DO Work Phone: [facility] Work Phone: Start: 02-16-2025 End: 01-00-6293Dbrrdsy encounter procedureBenjamin Ball DO-[facility] Work Phone: Start: 01-07-2025 End: 32-12-8964fvlhjecqdgVnhnkjiz Ball DO Work Phone: [facility] Work Phone: Start: 01-07-2025 End: 74-84-1960Estwwuy encounter procedureBenjamin Ball DO-[facility] Work Phone: Start: 12-31-2024 End: 60-72-8331vhcbxpqzrhCntytapu Ball DO Work Phone: [facility] Work Phone: Start: 12-31-2024 End: 20-86-3861Eondvcd encounter procedureBensalinas Garcia -[facility] Work Phone: Start: 12-22-2024 End: 11-47-7979vzrnbdwanbCamewcxq [place] DO Work Phone: [facility] Work Phone: Start: 12-22-2024 End: 43-64-2553Dwvogxo encounter procedureDonna Davila APRN, CNP-[facility] Work Phone: Start: 12-11-2024 End: 90-84-8938hxnmtcnrhcWsvdqmru Ball DO Work Phone: [facility] Work Phone: Start: 12-11-2024 End: 84-55-8829Rixeexq encounter procedureTova Zayas MD-[facility] Work Phone: Start: 27-52-9800Wcm-patient / Non-visitBenjamin Jose DO-[facility] Work Phone: Start: 70-76-5990Wxu-patient / Non-visitBenjamin Ball DO-[facility] Work Phone: Start: 11-17-2024 End: 17-12-0175siiekjnpfyGiimwtlocBarberton Citizens Hospital Work Phone: Start: 11-17-2024 End: 34-03-5418Qehyfrpgj for general adult medical examination without abnormal findingsMount St. Mary Hospitaltart: 11-17-2024 End: 08-82-6641Qtdxhor encounter procedureMaurilio Physician Group-[facility] Work Phone: Start: 11-17-2024 End: 30-56-8374Xtqcxsz encounter statusBefredrickGalion Hospitaltart: 06-20-2024 End: 44-79-1451jgkgdpwhwoMyvzenbavBarberton Citizens Hospital Work Phone: Start: 06-20-2024 End: 51-09-2461Zqzkylh encounter procedureFirvandivers Physician Group-[facility] Work Phone: Start: 05-15-2024 End: 36-11-7687Sfu Drop offDONNA RIVERA [facility] Start: 05-15-2024 End: 35-42-5713fvkotlmwaxDL-C DONNA Licha RIVERAFacility:FTMCStart: 05-15-2024 End: 99-35-5165Rlhqywg encounter procedureDONNA Hurt MARQUISE [facility] start: 05-15-2024 End: 39-45-6007Lwvmgfq encounter procedureF[facility]bath [facility] Work Phone: Start: 26-01-2344Tpc-patient / Non-visitFirbath community hospital [facility] Work Phone: Start: 02-12-2024 End: 42-06-6453gghthrxuvvPhnvrcwwbBarberton Citizens Hospital Work Phone: Start: 02-12-2024 End: 37-36-0981Rphreru encounter procedureFirbath community hospital Phys[facility] GroupPeoples [facility] Work Phone: Start: 12-11-2023 End: 04-63-2935Ksyimk outpatient visit 15 minutesEmily [facility] CORK CUTTER-[employer]ICATION PLANT OPERATOR Work Phone: [facility] NeurologyComment on above: Sequelae, post-stroke (Primary Dx); Essential hypertensionStart: 12-11-2023 End: 08-60-8802avrqfflsitCTJKXHealthAlliance [facility] Ambulatory PPGStart: 12-05-2023 End: 21-35-6595Xirdzw outpatient visit 15 minutesAngélica Toussaint MD Work Phone: [facility] NeuroSurgeryComment on above: Pseudomeningocele (Primary Dx); S/P CIRCULAR SAW OPERATOR shunt; CSF leakStart: 12-05-2023 End: 54-12-2116najttgmlocCQCDKSt. Alphonsus Medical Center Ambulatory PPGStart: 11-28-2023 End: 92-82-4640jyjavmryanRPZVETCDeckerville Community Hospitaltart: 20-51-8194putflrbripZCWGTEZSBoston Lying-In Hospital Ambulatory PPGStart: 11-16-2023 End: 75-22-8197Ygkcuzewp encounterPaige Ross [facility] Start: 11-07-2023 End: 93-59-2400ziclfcdvqtQSILCBZDeckerville Community Hospitaltart: 10-31-2023 End: 38-12-7837evyjdngtrtFexdjlkruNorwalk Memorial Hospital Work Phone: Start: 10-31-2023 End: 37-94-6584Fphigxd encounter procedureMaurilio Physician GroupPeoples Hospital Work Phone: Start: 10-24-2023 End: 26-94-5993xzqnacdqllEUGKSMKDeckerville Community Hospitaltart: 10-23-2023 End: 73-51-7942Vtkrhma encounter procedureDONNA RIVERA [facility] start: 30-39-8684Bfr-patient / Non-visitMaurilio Physician Group-[facility] Work Phone: Start: 09-05-2023 End: 35-89-5126apyvxknglxKYEJJXFUBoston Lying-In Hospital Ambulatory PPGStart: 09-05-2023 End: 64-94-2513Hjekdz outpatient visit 10 minutesDabridgett PHILIPPE Work Phone: [facility] NeuroSurgeryComment on above: Pseudomeningocele (Primary Dx); S/P CIRCULAR SAW OPERATOR shuntStart: 08-27-2023 End: 96-37-9418tqjhnskmzqDGSelect Specialty Hospital - [facility] Work Phone: [facility] Work Phone: Start: 08-27-2023 End: 39-09-1174Tirfzbs encounter procedureDO Awais Garcia Work Phone: [facility] Work Phone: Start: 81-24-7020Jhd-patient / Non-visitDO Awais Garcia Work Phone: [facility] Work Phone: Start: 07-20-2023 End: 57-26-2118loneqysvzwGcorluqd Ball Other [employer] Other Start: 79-08-2583Sziqhcafg encounterBensalinas FergusonG [facility] ClinicStart: 07-02-2023 End: 72-07-2356lhxupdiwsyZjdxweuy Ball Other [employer] Other Start: 73-57-4077Hhdldgcio for general adult medical examination without abnormal findingsBensalinas FergusonG [facility] ClinicStart: 67-82-9157Sblkryps preventive med est patient 40-64yrsBenjamin MartyG [facility] ClinicStart: 07-02-2023 End: 46-08-8648Rgtegqe encounter procedureDO Awais Garcia Work Phone: [facility]-Start: 06-21-2023 End: 89-97-7020yofmctteagWhmngxxn Ball Other [employer] Other Start: 46-97-0198Vgrpyfubv by computer linkBennetomin BallMANISHG [facility] Medical ClinicStart: 06-19-2023 End: 19-38-0793tmrvrpdreqLegfjygx Ball Other [employer] Other Start: 07-02-9699Qhsmolcex by computer linkTannnetomin MartyG [facility] ClinicStart: 65-12-4579Axbwpgfaf encounterBensalinas Garcia Medical ClinicStart: 41-88-9034Gfgktcthv encounterMegan Gill [facility] NeurologyStart: 06-16-2023 End: 08-38-3933xioywtsrouWpklwvrr Ball Other [employer] Other Start: 32-72-0716Jtpvarvam by computer linkAwais Garcia Medical ClinicStart: 06-15-2023 End: 96-02-1256Bvlvnbm encounter procedureDO Awais Garcia Work Phone: [facility] [address] Saucier RdStart: 06-15-2023 End: 57-12-9666iyfrovwkacPwpbi Tala[employer]iaLive[employer] Other Start: 05-55-1757Fdczmkmql by computer linkAwais Garcia Medical ClinicStart: 06-14-2023 End: 05-87-0452nnhbuducbmTrumtwag Ball Other [facility] [employer] Other Start: 57-66-8467Soubchone by computer linkAwais Garcia Medical ClinicStart: 06-08-2023 End: 76-18-0979mniulslqlgScxmhqrm Ball Other [facility] [employer] Other Start: 56-52-6932Rglhdimug encounterBensalinas Garcia Medical ClinicStart: 06-05-2023 End: 12-59-3751vrpeozymrdXglzspdp Ball Other [facility] [employer] Other Start: 20-58-5865Yotmxsgiy by computer linkAwais Garcia Medical ClinicStart: 05-30-2023 End: 03-16-1965sekpyuyxtmCSKGQLGD E BALLUniversity Of Vermont Medical CenterMedica [facility] Ambulatory PPGStart: 05-30-2023 End: 55-98-5337Hmcoxc outpatient visit 15 minutesMarc Waggoner MD Work Phone: [facility] NeurologyComment on above: Sequelae, post-stroke (Primary Dx)Start: 05-30-2023 End: 27-30-5436earrbaucrgAAOVGLZAMontefiore Medical Center Ambulatory PPGStart: 56-26-6610yjnyddlnhvTWRRTSAU [facility] Ambulatory PPGStart: 05-21-2023 End: 50-65-4069avqjdnjamgDozfzcvn Ball Other [employer] Other Start: 00-61-5968Ultwpajrc by computer linkBenjamin BallFPG [facility] ClinicStart: 05-15-2023 End: 77-56-4675pgogmtvvxdJcldpufy Ball Other [employer] Other Start: 24-08-9125Iytnbclhd by computer linkBenjamin BallFPG [facility] ClinicStart: 05-14-2023 End: 77-09-1910ztvopvemhlIksecvcb Ball Other [employer] Other Start: 93-73-8603Lzzdrhpoz by computer linkBenjamin BallFPG [facility] ClinicStart: 62-31-5747Utjpwbgbc encounterPaniurka Liedicfrank Physicians NeurologyStart: 05-07-2023 End: 77-30-9492dnucezlgqsLoudgarf Ball Other [employer] Other Start: 82-98-1164Aklaflxjj by computer linkBenjamin BallFPG [facility] ClinicStart: 04-09-2023 End: 42-40-5430abqyvxjookJfojbxbh Ball Other [employer] Other Start: 31-76-9423Varxcmtre by computer linkBenjamin BallFPG [facility] ClinicStart: 04-03-2023 End: 07-61-3904vageljokkwXczpqick Ball Other [employer] Other Start: 93-23-4620Ktdgzyhlu by computer linkBenjamin BallFPG [facility] ClinicStart: 03-29-2023 End: 93-33-2852tgkpndmzyoZfsbtnuy Ball Other [facility] [employer] Other Start: 00-88-4824Xafgtxsgj by computer linkBenjamin BallFPG [facility] ClinicStart: 03-28-2023 End: 03-44-6097zaznvbknjoQbzmkwlb Ball Other [facility] [employer] Other start: 93-56-7452Ezozcssee by computer linkBenjamin BallFPG [facility] ClinicStart: 03-26-2023 End: 26-67-2905unwjqozutjVeiyzijn Ball Other [facility] [employer] Other Start: 84-77-3138Hpatneliz by computer linkBenjamin BallFPG [facility] ClinicStart: 03-20-2023 End: 68-76-6272ypvkounlilUraqfusg Ball Other [facility] [employer] Other Start: 36-52-6188Tzacrlpui by computer linkBenjamin BallFPG [facility] ClinicStart: 03-02-2023 End: 49-40-9917egdveyhgvuLujenrai Ball Other [facility] [employer] Other start: 69-31-0633Sojlannwc by computer linkBenjamin BallFPG [facility] ClinicStart: 02-28-2023 End: 40-47-8998sxxdwcqkwuVqmvhxck Ball Other [facility] [employer] Other Start: 97-50-4545Hchqrmnix by computer linkBensalinas BallFPG [facility] ClinicStart: 02-23-2023 End: 10-53-3897pbbyhndxbkMfhljyra Ball Other [facility] [employer] Other Start: 31-00-4171Vyfznrflo encounterBenjamin BallFPG [facility] ClinicStart: 02-21-2023 End: 01-94-2687xtrhdkzowvDqhwobrg Ball Other [facility] [employer] Other Start: 76-21-7360Erecqojyb by computer linkBennetomin BallFPG [facility] ClinicStart: 02-20-2023 End: 47-45-1969Gmd Drop offJENNIFER E MARQUISE [facility] Start: 02-20-2023 End: 78-11-6564Fkuvram encounter procedureJENNIFER E MARQUISE [facility] start: 02-16-2023 End: 45-63-2493yrnwtvxhvyJpvrfgrc Ball Other [facility] [employer] Other Start: 00-37-1095Fdxqovcwg encounterBenjamin BallFPG [facility] ClinicStart: 02-15-2023 End: 45-60-2454tgqkklniybHxwpbgxa Ball Other [facility] [employer] Other Start: 30-45-7127Yqesyetuw by computer linkBennetomin BallFPG [facility] ClinicStart: 02-07-2023 End: 32-84-9403ruqjiivxqgZcdpanlc Ball Other [employer] Other Start: 58-06-0908Wmignu outpatient visit 25 minutes Awais BallFPG [facility] ClinicStart: 01-09-2023 End: 88-61-5751Tjvpibkxq department patient visitBensalinas GarciaFacility:[facility]tart: 01-09-2023 End: 09-70-5724Ahdjyuptw department patient visitPHYSICIAN NO [facility] Work Phone: Start: 01-03-2023 End: 23-38-3451Fvmgwqfvey and management of inpatientJoseph Harshad Facility:[facility]art: 01-03-2023 End: 90-94-1551Jscvvhhufa and management of inpatientPHYSICIAN [facility] Work Phone: Start: 12-14-2022 End: 53-91-3578ecnqqhfvtpLiygzrof Ball Other [employer]Customer[employer] Other Start: 75-66-8129Eftdxxoei encounterBenjamin BallFPG [facility] ClinicStart: 12-13-2022 End: 53-94-3688qmklzyhohrPysozxco Ball Other [employer] Other Start: 66-66-2623Mmjhvzynn encounterBenjamin BallFPG [facility] ClinicStart: 12-05-2022 End: 06-31-1124sifpxwrowiFlpeiqzy Ball Other [employer] Other Start: 14-85-1788Ebkfbeolo encounterBenjamin BallFPG [facility] ClinicStart: 12-01-2022 End: 18-28-7700kbuovdfntiXjwdaced Ball Other [employer]Customer[employer] Other Start: 72-40-0447Ktypnodyd encounterBenjamin BallFPG [facility] ClinicStart: 11-28-2022 End: 36-58-5501Puyuvyu encounter procedureGregory Robert LILLY [facility] Radha Start: 09-18-2022 End: 43-76-3147depkzgygajTegtcpwm Ball Other [employer] Other Start: 91-27-3723Jxwkgloqp encounterBensalinas Garcia Medical ClinicStart: 08-31-2022 End: 10-68-1954ahjtfuvqbyQhxglhbk Ball Other [facility] [employer] Other Start: 57-65-9863Qhvxwg outpatient visit 15 minutes Awais Ebenezer [facility] ClinicStart: 18-32-5481Ihsblwssp encounterBensalinas Garcia Medical ClinicStart: 08-07-2022 End: 98-39-8286dywumcykwhPX AWAIS BALLFacility:Y7Ildks: 07-21-2022 End: 23-73-4013ojeaykjnnqNFJGQNQU EBERLYFacility:B8Ngqzo: 07-19-2022 End: 28-67-2816Chy Drop offGregchristine LILLY [facility] Start: 07-19-2022 End: 21-14-9641Afnpakg encounter procedureGregory P SLADE [facility] Mallie Start: 05-31-2022 End: 72-58-8714Tgpfyhe encounter procedureGregory P SLADE [facility] Start: 05-25-2022 End: 66-99-9036Dftbmqk encounter procedureGregory P SLADE [facility] Radha Start: 05-24-2022 End: 82-57-0335ohkvdsmmxlSH WALT RICARDO .Facility:K7Rmtgr: 05-22-2022 End: 77-96-2749heqowdtropXQVZ NOBLEFacility:[facility]ertart: 59-34-1258Uyjjokvys for other preprocedural examinationBENJAMIN JOSEAccess Hospital DaytonStart: 05-18-2022 End: 71-65-0983nogxtkikywSCATJUGM E BALLFacility:[facility] Centertart: 05-18-2022 End: 07-12-7080fngiizjoqnPSDGHNSF E BALLFacility:[facility] Centertart: 05-18-2022 End: 68-49-4632Hxefeewuy to [facility] Main 2 Work Phone: [facility] MAINStart: 05-18-2022 End: 59-08-0895zggcgdhvzjWiyz Main 2 Work Phone: Pre AnesthesiaComment on above:Pre-op evaluation (Primary Dx); Essential hypertension; BMI 40.0-44.9, adult (HCC); Prediabetes; Ureteral stent presentStart: 05-18-2022 End: 13-54-7766Pgxismwndhygs examination [facility] Main 2 Work Phone: Pre AnesthesiaStart: 24-12-4840Aipkam Sandeep Coffey MD Work Phone: UrologyStart: 17-78-0153Blzwbupip encounterSkb Frederick RNUrologyComment on above:AppointmentStart: 05-09-2022 End: 13-11-2693agekdogjudLFIG NOBLEFacility:[facility] Centertart: 05-09-2022 End: 99-59-0748kzwvxmdzmmPWXKHPO P COOKFacility:[facility] Centertart: 05-09-2022 End: 26-43-0337Ftnqqhm encounter Mellisa Coffey MD Work Phone: UrologyComment on above:Nephrolithiasis (Primary Dx); Family history of nephrolithiasis; BMI 40.0-44.9, adult (HCC); History of gastric bypass; Essential hypertension; Prediabetes; Bladder spasms; Ureteral stent present; Abnormal urinalysisStart: 04-12-2022 End: 77-41-8405Fvdokok encounter procedureKonrad LILLY [facility] Start: 04-11-2022 End: 84-72-6534awkjdusfdqMQYITNL P COOKFacility:Z2Sosqp: 04-06-2022 End: 17-63-4885altowcmxodZW KULDIP ALEENA .Facility:X8Szaxv: 03-29-2022 End: 61-64-8939Typctfztfh and management of inpatientKONRAD LILLYFacility:H1 Start: 54-58-9701Adzdbdmlp for general adult medical examination without abnormal findingsDR AWAIS GARCIAPremier Health [facility] HospitalStart: 01-27-2022 End: 33-99-2852judjwkizplSL BENJAMIN BALLFacility:E4Vfppu: 01-27-2022 End: 18-76-7155Gggiofgwc for general adult medical examination without abnormal findingsDR AWAIS GARCIAFacility:W9Abzun: 01-25-2022 End: 97-40-7025cuszrpkmyfKW BENJAMIN BALLFacility:H1 Procedures DateProcedureProcedure DetailPerforming ClinicianStart: 17-53-6649Udpsfa-up visitFollow-upDAVID R SELLStart: 55-49-6208Fmzgs depression screening assessment Marc Waggoner MD Work Phone: Start: 49-19-3671Kuopzi scan of lower limb veins PHYSICIAN NO FAMILYStart: 26-59-8697Ivuli culturePHYSICIAN NO FAMILYStart: 25-20-2542UPL of headPHYSICIAN NO FAMILYStart: 72-70-8593JO pre/post mri xray PHYSICIAN NO FAMILYStart: 06-58-5209QG of head without contrastPHYSICIAN NO FAMILYStart: 00-38-5232Wjgadw scan of lower limb veinsPHYSICIAN NO FAMILYStart: 40-05-3651PI of head without contrastPHYSICIAN NO FAMILYStart: 08-60-5704NQ of head without contrastPHYSICIAN NO FAMILYStart: 22-80-4835Vdiszmue Sana Coffey MD Work Phone: start: 98-30-4241Ivpwsmqc screenBESHAZIA BALLComment on above:Order Comment: Specimen Type: BLOOD SPECIMENOrdering Facility: [facility] Address:[address] [place] [address] Performed By: #### [id number] ####CC [facility] BLOOD BANKCLIA [id number] [facility] [id number] [address] [facility] AMERICAStart: 03-29-2022 Insertion of Other Device into Genitourinary Tract, Via Natural or Artificial Opening EndoscopicKRISTINA EBERLYStart: 80-53-0478JFG screeningGLEN KNIGHT Comment on above:Performed By: #### INFLUAB #### [facility] [address] [place] [address] Dr. Lissa SageStart: 71-87-2576Wuowksyudav removal of ureteric stentKonrad Phlexglobal Start: 40-48-3360Afdcnusqgh, device (physical object) [employer] Esophagogastrostomy, antesternal or antethoracicDillonJiubang Digital Technology Co. Gastric rstcv w/byp w/sm int rcnstj limit absrpjDillonJiubang Digital Technology Co. Hernia repairDillonJiubang Digital Technology Co. Surgical fistula (morphologic abnormality)DONNA RIVERA TurbinectomyDillonJiubang Digital Technology Co. Plan of Treatment DateCare ActivityDetailAuthorStart: 30-14-4654FHaT,Tdap and Td Vaccines (2 - Td or Tdap)DTaP,Tdap and Td Vaccines (2 - Td or Tdap)[facility] FieldAware SystemStart: 30-92-3597MHBRLCKI SCREENDIABETES SCREENAdams County Regional Medical Centertart: 50-48-9998Zuhyt BMI ScreeningAdult BMI ScreeningProSouth [facility] Health SystemStart: 33-51-6539Igyejvt ScreeningTobacco ScreeningProSouth Baldwin Regional [facility] Health SystemStart: 39-53-8140pcqagshfkd AmbulatoryFacility:EU BellevueStart: 59-07-8171Qvgeu BMI ScreeningAdult BMI ScreeningProSouth Baldwin Regional [facility] Center Health SystemStart: 39-81-9810Iphosgy ScreeningTobacco ScreeningProSouth Baldwin Regional [facility] Health SystemStart: 23-14-8445Sarwu BMI ScreeningAdult BMI ScreeningProSouth Baldwin Regional [facility] Health SystemStart: 81-46-2515Haazzbwcvg ScreeningDepression ScreeningProMarietta Osteopathic Clinic SystemStart: 84-54-6200Mjbknrd ScreeningTobacco ScreeningMount Carmel Health System SystemStart: 95-25-6084Xgaukqodf vaccinationInfluenza VaccineProMarietta Osteopathic Clinic SystemStart: 12-11-2023 End: 32-68-5715Okswsxutmxzo consultation with urgatmn8512/11/2023 9:30 AM EDT Telemedicine [facility] [address] [place] [phone] Xuan Schuster, CORK CUTTER-REGASIFICATION PLANT OPERATOR [address] [facility] [address] [place], [place] [id number] [facility] NeurologyStart: 12-06-2023 End: 15-52-1031NI Head WO and W contrast IVCT brain with and without contrast Imaging Routine S/P CIRCULAR SAW OPERATOR shunt Expected: 12/06/2023 (Approximate),Expires: 12/05/2024[facility] Work Phone: Comment on above:Expected: 12/06/2023 (Approximate), Expires: 12/05/2024Start: 12-05-2023 End: 94-55-4092Nawfuzu encounter ejsnpnhzc27/26/2024 12:30 PM EDT Office Visit [facility] [address] [place] [phone] Angélica Toussaint MD [address], [facility] [address] [place], [place] [address] [facility] NeuroSurgeryStart: 08-29-2023 End: 69-79-2453Xgmvmdp encounter iwgnosezx91/20/2024 12:50 PM EDT Office Visit [facility] [address] [place] [phone] Angélica Toussaint MD [address], [address] [address] [facility] NeuroSurgeryStart: 49-86-3696MJVNM-19 Vaccine ()COVID-19 Vaccine ()[facility] SystemStart: 86-84-9411Avtigvasg vaccinationInfluenza VaccineMount Carmel Health System SystemStart: 34-23-2633ArzunucmoWexner Medical Center Start: 33-72-3746OavpjyjqhntjCziiqrwolMount St. Mary Hospitaltart: 01-14-[address] Mary Hospitaltart: 01-11-[address] Mary Hospitaltart: 01-03-[address] [facility]tart: 42-03-8963Dlyxbhzu admissionMount St. Mary Hospitaltart: 84-57-9165QiupzihdvMount St. Mary Hospitaltart: 45-95-0687Vyowwhyazunwdo of varicella zoster vaccineZoster (Shingles) Vaccine (1 of 2)[facility] SystemStart: 43-08-8680JSACX-19 VACCINE (5 - Booster for Moderna series)COVID-19 VACCINE (5 - Booster for Moderna series)[facility] Start: 05-18-2022 End: 42-95-0824Usfwiexqsj A1c in BloodPremier Health Atrium Medical Center Work Phone: Comment on above:Expected: 05/18/2022, Expires: 07/18/2022Start: 18-27-2462TTIMWZJBKH ASSESSMENTDEPRESSION ASSESSMENTAdams County Regional Medical Centertart: 91-42-0700LSBAFEYTW (FIT-DNA)COLOGUARD (FIT-DNA)[facility] Start: 09-73-3976RwszdpumngkFBYBUWOQENDVjbvthsqu ClinicStart: 2017 COLORECTAL CANCER SCREENINGCOLORECTAL CANCER SCREENINGAdams County Regional Medical Centertart: 06-84-0704FI COLONOGRAPHYCT COLONOGRAPHYAdams County Regional Medical Centertart: 40-25-4718CRRKP OCCULT BLOODFECAL OCCULT BLOODAdams County Regional Medical Centertart: 66-60-2707HDLNIUNOULYCZ SIGMOIDOSCOPYAdams County Regional Medical Centertart: 53-34-4829ZICJX SCREENLIPID SCREENAdams County Regional Medical Centertart: 20-94-7939NBrQ,Tdap and Td Vaccines (1 - Tdap)DTaP,Tdap and Td Vaccines (1 - Tdap)[facility] Durhamtart: 31-17-7134Tyfqj microalbumin profileDTAP,TDAP,TD (1 - Tdap)[facility] Centertart: 10-17-8359Sylfq BMI Follow Up PlanAdult BMI Follow Up PlanSelect Specialty Hospital - Durhamtart: 73-70-9008YROEBQ PCP TEAM CHRONIC DISEASE VISITANNUAL PCP TEAM CHRONIC DISEASE VISITAdams County Regional Medical Centertart: 41-31-2080TU CONTROLLED (<130/80)BP CONTROLLED (<130/80)[facility] Medical Centertart: 88-70-8423FXLZMNCEM C SCREENINGHEPATITIS C SCREENINGAdams County Regional Medical Centertart: 09-49-4448TBD SCREENINGHIV SCREENINGAdams County Regional Medical Centertart: 87-63-1015UMGFZVQQC B (1 of 3 - 3-dose series)HEPATITIS B (1 of 3 - 3-dose series)[facility] HospitalBacteria identified in Urine by CultureURINE CULTURE Microbiology Routine Abnormal urinalysis 05/09/2022 2:50 PM [facility] Work Phone: comprehensive metabolic 2000 panel - Serum or Plasma [facility] End: 21-61-4799Wtrlazrakz includes GFR, serumCreatinine includes GFR, serum Lab Routine S/P CIRCULAR SAW OPERATOR shunt 1 Occurrences starting 09/05/2023 until 09/04/2024[facility] HospitalComment on above:1 Occurrences starting 09/05/2023 until 09/04/2024ECG COMPLETEECG COMPLETE ECG Routine Pre-op evaluation 05/18/2022 2:39 PM [facility] Work Phone: IR NEPHROSTOMY TUBE PLACEIR NEPHROSTOMY TUBE PLACE Radiology Routine Nephrolithiasis Family history of nephrolithiasis BMI 40.0- 44.9, adult (HCC) History of gastric bypass Essential hypertension Prediabetes Bladder spasms Ureteral stent present Ordered: 2CTrumbull Memorial Hospital Work Phone: comment on above:Ordered: 2Patient Education [facility] Work Phone: Patient referralLancaster Municipal Hospital [facility] Work Phone: [facility] Immunizations Immunization DateImmunizationNotesCare FynczylkRxmnpxgw74-22-1898JGKU-SuR-5 (COVID-19) mRNA-1273 vaccineOceans Behavioral Hospital BiloxiJiubang Digital Technology Co. [facility] 349870-26-2022influenza virus vaccine, unspecified formulationOceans Behavioral Hospital BiloxiJiubang Digital Technology Co. [facility] 349870-27-2021SARS-CoV-2 (COVID-19) mRNA-1273 vaccineOceans Behavioral Hospital BiloxiShift Media [facility]01-27-2021SARS-CoV-2 (COVID-19) mRNA-1273 vaccineOceans Behavioral Hospital BiloxiShift Media [facility] [place] 349872-30-2020SARS-CoV-2 (COVID-19) mRNA-1273 vaccineOceans Behavioral Hospital BiloxiShift Media [facility] [place] 349870-01-2020tetanus and diphtheria toxoids, adsorbed, preservative free, for adult use (5 Lf of tetanus toxoid and 2 Lf of diphtheria toxoid)Awais Garcia Other [facility]10-01-2019influenza virus vaccine, live, attenuated, for intranasal useOceans Behavioral Hospital BiloxiShift Media [facility] DatePayer CategoryPayerPolicy [id number] [id number]8-02-1819 [id number] 2.0.1.620203.3.579.2.04506-13-8458Eqpuqwm7501841 2.0.1.645495.3.579.2.10257-86-8902Spfdxbv8963022 2..1.119637.3.579.2.42834-33-1579Sxkhotv8236104 2..1.297156.3.579.2.21780-34-1300Yneqofl0312493 2..1.623133.3.579.2.86196-51-8078Opqtiaa0376192 2..1.927699.3.579.2.04276-69-5616Vivukva2200764 2..1.966353.3.579.2.77198-83-5442Mrtryma05665619 2..1.968876.3.579.2.844466-08-6686Qnmcfzz86667255 2..1.130154.3.579.2.254273-25-1259Zolzgzn30392515 2..1.103863.3.579.2.502301-76-5944Fzdrcfs18401107 2.0.1.591716.3.579.2.295905-21-3201Tmydgxc78933096 2.0.1.571686.3.57[id number] 2.16.840.1.502481.3.579.2.138366-49-1811Gukvvik94360909 2.840.1.632321.3.579.2.273769-61-8766Zlqkozr9061747 2.16.840.1.589676.3.579.2.623022-30-0586Xbdovuu5596613 2.840.1.546426.3.579.2.252427-26-4525Ngfpblt61476554 2.840.1.646310.3.579.2.555181-84-1388Jlpcmig02535777 2.840.1.247171.3.579.2.74488-05-0089Ycciohl49667881 2.840.1.441416.3.579.2.50763-18-1740Bhdcpsm57455089 2.16840.1.593334.3.579.2.66996-90-4443Mqlb-udmJlihsau1759456 2.840.1.425408.3.579.2.091Ukpcmfh02545561 2.840.1.807094.3.579.2.531 Kyustbb52698770 2.840.1.900119.3.579.2.407Ewwbkel73101003 2.840.1.523085.3.579.2.531 Social History DateTypeDetailFacilityStart: 08-26-2019 End: 56-94-9862Mkceyfq smoking statusNever smoked tobacco (finding)[facility] Hospitaltart: 12-13-2022 End: 12-24-9229Yan Assigned At BirthMalDoctors Hospitaltart: 05-09-2022 End: 46-06-7442Gpiuayc use and exposureSmokeless tobacco non-userAdams County Regional Medical Centertart: 05-09-2022 End: 52-66-6576Okhmqit intakeCurrent drinker of alcohol (finding)[facility] Centertart: 05-09-2022 End: 45-24-5541Cqsnfge intakeAdams County Regional Medical Centertart: 24-92-9608Ynobbpm Comment rareAdams County Regional Medical Centertart: 52-16-1197Fpd Assigned At BirthNot on fileAdams County Regional Medical Centertart: 04-29-2022 End: 46-66-6261Liwsxarz to SARS-CoV-2 (event)Not surePomerene Hospital Work Phone: Start: 76-71-0113Qrveodz Commentmay have a drink every 6 monthsPomerene HospitalTobacco smoking statusNeverExecutive Urology of [facility] HospitalyStart: 46-66-5328Zhk Assigned At BirthDunlap Memorial Hospitaltart: 06-20-2024 End: 96-96-7729EksIxhb (finding)[facility]tart: 05-30-2023 End: 78-14-0806Tpjhzob intakeEx-drinker (finding)[facility] SystemHow often to you have a drink containing alcohol?2-4 times a monthProMedica Health SystemHow many standard drinks containing alcohol do you have on a typical day?1 or 2ProMednorth mississippi medical center Health SystemHow often do you have 6 or more drinks on 1 occasion?NeverProSouth Baldwin Regional Medical Center Health SystemStart: 31-30-6650Oonkhip Commentsocial [facility] Medical CenteredicM Health [facility] System Medical Equipment Procedure CodeEquipment CodeEquipment Original TextEquipment IdentifierDatesVP shunt- Certas Integra Life ScienceFDAStart: 15-28-2174ZK shunt- [employer] ScienceFDAStart: 37-67-1265LJ shunt- [employer] ScienceFDAStart: 50-41-9901OU shunt- [employer] ScienceFDAStart: 28-97-9240GA shunt- [employer] ScienceFDAStart: 22-77-0139JZ shunt- [employer] ScienceFDAStart: 35-78-4768Pcphe Dura 3x3in Thk3.5mm Crnmxf Drmtrx-[place] + Npor Rgnrt Rpl [id number] - [id number]_bowInejc: 50-25-8789Pzcgu Shnt Cdmn Certas + Sphgrd Inln [facility] - [id number]_enuWkesz: 40-41-1994CK shunt- Cert[employer] Life ScienceFDAStart: 17-28-0683BK shunt- [employer] ScienceFDAStart: 05-45-2025MU shunt- [employer] ScienceFDAStart: 72-46-7153SC shunt- [employer] ScienceFDAStart: 22-45-8471TF shunt- [employer] ScienceFDAStart: 05-78-9050CA shunt- [employer] ScienceFDAStart: 75-25-7603CW shunt- [employer] Life ScienceFDAStart: 12-30-2022 Goals DatePatient GoalDesired Activity/StatePersonal health goalComment on above: Evaluation of progress towards goal: Pt will have a safe DC. Functional Status MsjuCrsmtahbxpHyhccjYbdmzbsp59-99-4891Teeqruolsj StatusN/AExecutive Urology of [facility] Hospitalue05-14-2024Functional StatusN/AExec[facility] of [facility] Hospitalue09-12-2023Functional StatusN/A [facility] Hospitalue08-16-2023Functional statusPatient is Progressing Toward [facility] Work Phone: 1(776) 791-611207784292-11-6310Zyeueiozhv statusPatient is Progressing Toward [facility] Work Phone: 1(940) 885-948102637518-32-8671Vgjaifqewp StatusN/AExec[facility] of [facility] Hospitalk12-15-2022Functional StatusN/AExec[facility] Hospitaly11-02-2022Functional StatusN/A [facility] Mental Status XpasHxtlcaebgoXkhfkhRehtxpix41-98-7585Vnrljeowa functionCognitive Status Patient is Progressing Toward [facility] Work Phone: 1(617) 169-190907-916129-36-4252Sjqvhyujm functionCognitive Status Patient at [facility] Work Phone: Clinical Notes 03-29-2022 to 12-22-2024 Note Date & RoprJinuGevxxwyj68-09-9140 Evaluation note* Diagnosis Onset Date Resolution Status Admit Date Pernicious anemia acuteJuly 2024 4:06pm [facility] Work Phone: 1(774) 111-117207-03-2025 Evaluation note* Diagnosis Onset Date Resolution Status Admit Date Anemia acuteJuly 2024 3:36pmVitamin B12 deficiencynoneactiveJuly 2024 3:36pm Pernicious anemiaacuteJuly 2024 4:06pm [facility] Work Phone: 1(978) 988-959206-09-2025 Evaluation note* Diagnosis Onset Date Resolution Status Admit Date Cerebral atherosclerosis acuteJune 2024 8:54amElevated cholesterolacuteJune 2024 8:54am Essential hypertensionacuteJune 2024 8:54amIFG (impaired fasting glucose) acuteJune 2024 8:54amObesityacuteJune 2024 8:54amScreening for colon canceracuteJune 2024 8:54amScreening PSA (prostate specific antigen)acute November 17, 2024 8:54amSinus tachycardiaacuteJune 2024 8:54amWellness examinationacuteJune 2024 8:54am [facility] Work Phone: 1(314) 943-580906-09-2025 Evaluation note* Diagnosis Onset Date Resolution Status Admit Date Cerebral atherosclerosis acuteJune 2024 8:54amElevated cholesterolacuteJune 2024 8:54am Essential hypertensionacuteJune 2024 8:54amIFG (impaired fasting glucose) acuteJune 2024 8:54amObesityacuteJune 2024 8:54amScreening for colon canceracuteJune 2024 8:54amScreening PSA (prostate specific antigen)acute November 17, 2024 8:54amSinus tachycardiaacuteJune 2024 8:54amWellness examinationacuteAt[facility] Health [facility] Islande 2024 8:54amAnemiaacuteJuly 2024 3:36pmVitamin B12 deficiencynoneactiveDecember 11, 2024 3:36pm [facility] Work Phone: 1([phone] 762-843706-09-2025 Evaluation note* Diagnosis Onset Date Resolution Status Admit Date Cerebral atherosclerosis acuteNovember 17, 2024 8:54amElevated cholesterolacuteNovember 17, 2024 8:54am Essential hypertensionacuteNovember 17, 2024 8:54amIFG (impaired fasting glucose) acuteNovember 17, 2024 8:54amObesityacuteNovember 17, 2024 8:54amScreening for colon canceracuteNovember 17, 2024 8:54amScreening PSA (prostate specific antigen)acute November 17, 2024 8:54amSinus tachycardiaacuteJun2024 8:54amWellness examinationacuteAtrium Health Mountain Island2024 8:54amAnemiaacuteJuly 2024 3:36pmVitamin B12 deficiencynoneactiveJuly 2024 3:36pmPernicious anemiaacuteJuly 2024 4:06pm [facility] Work Phone: 1(877) 958-294412-05-2024 Hospital Discharge instructions Patient Education 05/15/2024 15:29:40 [...] Follow these instructions at home: Medicines Take vljn-emp-ybanwdb and prescription medicines only as told by [...] provider. Document Revised: 02/16/2021 Document Reviewed: 02/16/2021 [employer] Patient Education 2023 Ritani. 05/15/2024 15:29:36 Kidney Stones, Ajyi-df-Ibwd Kidney Stones Kidney stones are rock-like masses [...] Follow these instructions at home: Medicines Take kbnq-rdl-scxcvmi and prescription medicines only as told by [...] provider. Document Revised: 01/19/2023 Document Reviewed: 01/19/2023 [employer] Patient Education 2023 Ritani. Follow Up Care 10/23/2023 11:47:54 With:MARQUISE PAGE, DONNA Hurt, URL Address: [address] [place] [address] When: Unknown [facility] 12-05-2024 NotePatient Education Urology Acute Urinary [...] these instructions at home: Medicines ??? Take dtjt-seb-bupslcu and prescription medicines only as told by [...] provider. Document Revised: 02/16/2021 Document Reviewed: 02/16/2021 [employer] Patient Education ? 2023 Ritani. Kidney Stones Kidney stones are rock-like masses that form inside of the kidneys. Kidneys are organs that make pee (urine). A kidney (more content not included)...[facility]12-05-2024 Evaluation note* Diagnosis Onset Date Resolution Status Admit Date Cerebral atherosclerosis acuteDecember 2023 8:57amElevated cholesterolacuteDecember 2023 8:57am Essential hypertensionacuteDecember 2023 8:57amIFG (impaired fasting glucose)acuteDecember 2023 8:57amObesityacuteDecember 2023 8:57amSinus tachycardiaacuteDecember 2023 8:57amEssential hypertensionacuteJanuary 2024 10:08amIFG (impaired fasting glucose)acuteJanuary 2024 10:08am Acute sinusitisdeletedJanuary 2024 10:08am [facility] Work Phone: 1(197) 496-279407-02-2024 History of Present illness Narrative* Xuan Schuster, RADHA-REGASIFICATION PLANT OPERATOR - 12/11/2023 9:30 AM EDT Images from the original note were not included. [facility]roke [facility] Telestroke Clinic Visit Date of Visit: 12/11/2023 Patient Location: Home Patient Consent obtained: yes, Verbal Prior to beginning this clinical portion of this visit, the patient/family has verbally consented to the use of this telemedicine E-visit and initiated the contact. They have also consented to using [employer] as a communications platform, understanding the privacy limitations, and telehealth and HIPAA waivers as established in the CMS expansion of telehealth benefits under the 1135 waiver authority and the Coronavirus Preparedness and Response Supplemental Appropri ations Act Dated August and as summarized in August 26, 2019 [facility] FAQ on the Coronavirus (COVID-19) public health [...] laminectomy and EVD placement. He eventually required CIRCULAR SAW OPERATOR shunt placement. His recovery was complicated by [...] Hematuria Hypertension Kidney stones Nephrolithiasis Obesity Stroke ([facility]-HCC) Urethral stricture Urinary retention Past Surgical History: Procedure Laterality Date CYSTOSCOPY W/ URETERAL STENT PLACEMENT 08/26/2019 GASTRIC BYPASS GASTRIC RESTRICTION SURGERY with small bowel reconstruction HERNIA REPAIR RIGHT FRONTAL EVD -SUBOCCIPITAL DECOMPRESSIVE CRANIECTOMY Right 12/13/2022 Performed by Angélica Toussaint MD at [facility] STEALTH INSERTION SHUNT VENTICULOPERITONEAL AXIOM AND REMOVAL OF EVD N/A 12/30/2022 Performed by Angélica Toussaint MD at [facility] Medication List Accurate as of December 11, [...] Stroke Scale Person Administering Scale: Xuan Schuster, CORK CUTTER-REGASIFICATION PLANT OPERATOR 1a Level of consciousness: 0=alert; keenly responsive [...] 0=No abnormality NIHSS Total = 0 Modified [place] Score: 1 PHQ9: Not completed but denies [...] feel free to contact our office at [facility]. This is a telemedicine visit. Verbal [...] RANDOLPH Green 12/11/23 1329 documented in this encounterKettering Health SpringfieldBlueCat Networks [facility] Mus[facility] HospitalNgmapu04-44-6333 Instructions* Patient Instructions* RANDOLPH Green - 12/11/2023 [...] care. The instructions to gain access to [employer] are at the bottom of this summary. If you are not signed up for access to MY CHART and have not received notification of ANY test result within 7 days, please call [phone] to leave a request for your results. If you have not beencontacted about your test results, do not assume that your test results are normal. If you need to schedule a test such as a CT scan, Ultrasound, MRI or PET scan, please call [facility] Scheduling at [phone]. There are numerous area resources for [facility] stroke and brain aneurysm survivors. To learn more, ask about the FREE Monthly stroke support group or request a stroke support group calendar from the Stroke Clinic. You can also email Stroke Support Group moderator: Asha Goodman at [email or web address]. Stroke survivors, family members, caregivers and friends are ALL WELCOME! documented in this encounterMercy Health St. [facility]06-26-2024 History of Present illness Narrative* Angélica Toussaint MD - 12/05/2023 12:30 PM EDT Images from the original note were not included. [facility] [address] [place] [address], [address] [place] [address] * CHART NOTE ? 12/05/2023 Patient: Taras Hayward 1970 [id number] Physician: Angélica Toussaint MD, FAANS SUMMARY 11.5 months status post suboccipital decompressive craniectomy and C1 laminectomy with external ventricular drain insertion, performed on 12/13/22 for large ischemic cerebellar stroke; 11 months statuspost CIRCULAR SAW OPERATOR shunt insertion performed on 12/30/22; and 9 [...] large ischemia cerebella stroke; 11 months statuspost CIRCULAR SAW OPERATOR shunt insertion performed on 12/30/22. The patient [...] to the patient. He was working at [employer]. Patient denied VASQUEZ, blurry vision, double [...] record of the patient encounter. Inadvertent computerized typewriter mechanic errors related to syntax, spelling, homophones, and/or inaudibility may be present. Scribe Statement: Scribed for and in the presence of Dr. Angélica Toussaint MD, FAADORI by Roma Lindsay. Roma Lindsay 12/05/233 documented in this [facility]06-26-2024 Instructions* Patient Instructions* Roma Lindsay - 12/05/2023 12:30 PM EDT The patient is doing well with resolution of post-operative symptoms, so I will continue to follow-up with him as needed. documented in this encounterMercy Health St. [facility]06-07-2024 Miscellaneous Notes* Telephone Encounter - Davina Hawkins RN - 11/16/2023 11:11 AM EDT Per recall, patient needs routine follow up with ANASTASIYA. Please call to schedule patient. * Telephone Encounter - Ashely Galicia - 11/16/2023 11:11 AM EDT Spoke with patient and scheduled appt documented in this [facility]06-07-2024 Telephone encounter Note* Telephone Encounter - Davina Hawkins RN - 11/16/2023 11:11 AM EDT Per recall, patient needs routine follow up with ANASTASIYA. Please call to schedule patient. [facility]06-07-2024 Telephone encounter Note* Telephone Encounter - Ashely Galicia - 11/16/2023 11:11 AM EDT Spoke with patient and scheduled appt [facility]05-14-2024 Hospital Discharge instructions Patient Education 10/23/2023 11:37:27 [...] include: ?8 oz (237 mL) of milk, lbmrbsq-wsvlimaihncl-twhvj milk, and calcium- fortifiedfruit juice. Calcium-fortified means [...] ?Spinach (cooked), rhubarb, beets, sweet potatoes, and Taiwanese chard. ?Peanuts. ?Potato chips, fijian fries, and baked potatoes with skin on. ?Nuts and nut products. ?Chocolate. If you regularly take a diuretic medicine, make sure to eat at least 1 or 2 servings of fruits or vegetables that are high in potassium each day. These include: ?Avocado. ?Banana. ?Avery, prune, carrot, or tomato juice. ?Baked potato. [...] magnesium, fish oil, or vitamin B6. Take bbty-clm-fyglyha and prescription medicines only as told by [...] Casseroles. Pizza. Lasagna. Frozen meals. Potato chips. Omani fries. The items listed above may not [...] provider. Document Revised: 09/07/2022 Document Reviewed: 09/07/2022 [employer] Patient Education 2022 Ritani. Follow Up Care 07/03/2023 11:40:21 With:MARQUISE PAGE, DONNA Hurt, URL Address: [address] [place] [address] When: Unknown [facility] 03-27-2024 History of Present illness Narrative* JOSE MARTIN Monroy - 09/05/2023 11:50 AM EDT Images from the original note were not included. [facility] [facility] [address] [place] [address], [address] [place] [address] * CHART NOTE ? 02/21/2023 Patient: Taras Hayward 1970 [id number] Physician: Darrell Marin PA-C SUMMARY 8 months status post suboccipital decompressive craniectomy and C1 laminectomy with external ventricular drain insertion, performed on 12/13/22 for large ischemic cerebellar stroke; 8 months status post CIRCULAR SAW OPERATOR shunt insertion performed on 12/30/22; and 6 [...] ischemia cerebella stroke; 8 months status post CIRCULAR SAW OPERATOR shunt insertion performed on 12/30/22. The patient [...] to the patient. He is working at [employer]. Patient denies VASQUEZ, blurry vision, double vision, [...] record of the patient encounter. Inadvertent computerized typewriter mechanic errors related to syntax, spelling, homophones, and/or inaudibility may be present. JOSE MARTIN Monroy 09/05/23 1312 documented in this encounterMer[facility] Evaluation note* Encounter Date Diagnosis Assessment Notes [...] index [BMI] 40.0-44.9, adult (ICD-10 - Z68.41) [facility] 01-08-2024 Miscellaneous Notes* Telephone Encounter - Megan Ward CMA - 06/18/2023 8:58 AM EST Received driving eval report. Uploaded to media. Please advise * Telephone Encounter - Ashely Erickson - 06/18/2023 8:58 AM EST Received call today 06/18/23 2:30 from patient in regard to previous message. He is requesting a callback. Please call back and advise, callback#: [phone]. * Telephone Encounter - Gladis Perry PA-C - 06/18/2023 8:58 AM EST Called patient. 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 Told him to call back if he had any questions. documented in [facility] [id number] Telephone encounter Note* Telephone Encounter - Megan Ward CMA - 06/18/2023 8:58 AM EST Received driving eval report. Uploaded to media. Please advise [facility] Telephone encounter Note* Telephone Encounter - Ashely Erickson - 06/18/2023 8:58 AM EST Received call today 06/18/23 2:30 from patient in regard to previous message. He is requesting a callback. Please call back and advise, callback#: [phone]. [facility]01-08-2024 Telephone encounter Note* Telephone Encounter - Gladis Perry PA-C - 06/18/2023 8:58 AM EST Called patient. 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 Told him to call back if he had any questions. [employer]12-26-2023 Evaluation note* Encounter Date Diagnosis Assessment Notes Treatment Notes Treatment Clinical Notes May, IFG (impaired fasting glucose) ( ICD-10 - R73.01) [facility] Other [id number] History of Present illness Narrative* Marc Waggoner [...] laminectomy and EVD placement. He eventually required CIRCULAR SAW OPERATOR shunt placement.He has a pseudomeningocele which is [...] driving. He is going to get his electric screw driver operator's evaluation scheduled at [facility]. He denies dizziness, focal weakness, numbness/tingling, changes in vision. No difficulty swallowing. 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 [...] Hematuria Hypertension Kidney stones Nephrolithiasis Obesity Stroke ([facility]) Urethral stricture Urinary retention Past Surgical History Past Surgical History: Procedure Laterality Date CYSTOSCOPY W/ URETERAL STENT PLACEMENT 08/26/2019 GASTRIC BYPASS GASTRIC RESTRICTION SURGERY with small bowel reconstruction HERNIA REPAIR RIGHT FRONTAL EVD -SUBOCCIPITAL DECOMPRESSIVE CRANIECTOMY Right 12/13/2022 Performed by Angélica Toussaint MD at [facility] STEALTH INSERTION SHUNT VENTICULOPERITONEAL AXIOM AND REMOVAL OF EVD N/A 12/30/2022 Performed by Angélica Toussaint MD at [facility] Family History The patient has a [...] in the note above. documented in this encounterKettering Health SpringfieldBlueCat Networks [facility] [id number] Instructions* Patient Instructions* Gladis Perry PA-C - 05/30/2023 2:00 PM EST Follow up in clinic in 6 month in [facility] Continue to follow up with Dr. Toussaint Remain on 81 mg aspirin Stroke risk factors: HTN , systolic < 130, HLD LDL < 70 Follow up with electric screw driver operator's eval. Call our office once completed for us to review. documented in this encounterKettering Health SpringfieldBlueCat Networks [facility] [id number] Evaluation note* Encounter Date Diagnosis Assessment Notes Treatment Notes Treatment Clinical Notes May, Nausea (ICD-10 - R11.0) [facility] Other [id number] Miscellaneous Notes* Telephone Encounter - Davina Hawkins RN - 05/11/2023 11:[address] Waggoner, patient needs appt with Dr. Toussaint specifically (no PA or PIT STEWARD) to address meningoceletreatment as this is likely the reason for patients symptoms he is experiencing. Please call to schedule patient. documented in this encounterKettering Health SpringfieldMaker's Row [id number] Telephone encounter Note* Telephone Encounter - Davina Hawkins RN - 05/11/2023 11:[address] Waggoner, patient needs appt with Dr. Toussaint specifically (no PA or PIT STEWARD) to address meningoceletreatment as this is likely the reason for patients symptoms he is experiencing. Please call to schedule patient. [facility]09-12-2023 Hospital Discharge instructions Patient Education 02/20/2023 [...] include: ?8 oz (237 mL) of milk, bpuyzqn-bcvuajloocfp-hhdkk milk, and calcium- fortifiedfruit juice. Calcium-fortified means [...] ?Spinach (cooked), rhubarb, beets, sweet potatoes, and Taiwanese chard. ?Peanuts. ?Potato chips, fijian fries, and baked potatoes with skin on. ?Nuts and nut products. ?Chocolate. If you regularly take a diuretic medicine, make sure to eat at least 1 or 2 servings of fruits or vegetables that are high in potassium each day. These include: ?Avocado. ?Banana. ?Avery, prune, carrot, or tomato juice. ?Baked potato. [...] magnesium, fish oil, or vitamin B6. Take kzhk-iee-bohplwl and prescription medicines only as told by [...] Casseroles. Pizza. Lasagna. Frozen meals. Potato chips. Omani fries. The items listed above may not [...] provider. Document Revised: 02/06/2022 Document Reviewed: 02/06/2022 [employer] Patient Education 2022 Ritani. Follow Up Care 01/24/2023 14:46:51 With:MARQUISE PAGE, DONNA Hurt, URL Address: [address] [place] [address] When:Within 3 Month(s) Comments:w/[facility] [employer] 09-08-2023 Evaluation note* Encounter Date Diagnosis Assessment Notes Treatment Notes Treatment Clinical Notes Feb, Elevated cholesterol (ICD-10 - E 78.00) Feb,erebellar infarction with occlusion or stenosis of cerebellar artery (ICD-10 - I63.549) Feb,enign prostatic hyperplasia with lower urinary tract symptoms (ICD- 10 - N40.1) Feb,Essential hypertension (ICD-10 - I10) [facility] 08-30-2023 Evaluation note* Encounter Date Diagnosis [...] due to afternoon nausea Small, frequent meals [facility] 08-16-2023 Discharge summary Author Srinivas Patricia [facility] January 24, 2023 1:59pmNote Date/TimeAugust 2022 10:06[place] [id number] Discharge Summary Signed Patient: Taras Hayward MR#: [id number] : 1970 Acct:[id number] Age/Sex: 52 / M Adm Date: 3 Loc: Room: 3X6239-[address]: Srinivas Patricia MD Copies to: [...] to Neurosurgery Routine Discharge Diagnosis (1) S/P CIRCULAR SAW OPERATOR shunt: (2) Hydrocephalus: (3) Cerebellar infarct: (4) [...] nephrolithiasis, gastric bypass surgery. Patient presented to [place] emergency department via EMS with complaints of dizziness, nausea andvomiting, vertigo, and headache.? He stated the symptoms started suddenly when he was sitting in the chair after returning from work thatday.? CTA head and neck demonstrated [facility] in [place]. MRI of the brain showed late acute [...] demonstrating pseudocyst.? On 12/30/2022 patient underwent a CIRCULAR SAW OPERATOR shunt placement due to obstructive hydrocephalus and [...] generally healthy and worked full- time at [employer]. Rehabilitation Course: Course was complicated by [...] Plan Discharge Plan Patient Disposition: Home Health [facility] Activity: Ambulate as Tolerated Diet: Regular Additional [...] appointment details). Your Home Health agency is [facility] ( ). They will contact you 24-48 [...] to your appointment.. Instructions: Stroke (DC), Cyproheptadine, [facility]ramer Catheter Care at Home Prescriptions: New [...] Toussaint MD [Other] - 02/14/23 1:10 [facility] [Other] - 02/21/23 3:[address] angiogram head and carotid [Other] Konrad Lilly MD [Active Staff] - Awais Garcia DO [Referring] - 02/06/23 11:30 am (PCP) Srinivas Patricia MD [Active Staff] - (follow up with rehab physician as/if needed) Documented By: Srinivas Patricia MD 01/24/23 1006 Signed By: <Electronically signed by Srinivas Patricia MD> 01/24/23 5929 [facility] Work Phone: 1(400) 920-861208-15-2023 Progress note Author Srinivas Patricia [facility] January 23, 2023 10:27amNote Date/TimeAugust 2022 10:27[place] [address] Physiatry(Rehab) Progress Note Signed Patient: Taras Hayward MR#: [id number] : 1970 Acct:[id number] Age/Sex: 52 / M Adm Date: 3 Loc: Room: [address] [place] [address] Type: ADM IN Attending Dr: Srinivas Patricia MD Copies to: ~ Date of Service: 01/23/2023 Subjective Subjective Narrative: Mr. Hayward is a 52 year old male presenting to inpatient rehab unit with functional impairments secondary to left cerebellar CVA. His past medical history is notable for obesity, hypertension, nephrolithiasis, gastric bypass surgery. Patient presented to [place] emergency department via EMS with complaints of dizziness, nausea andvomiting, vertigo, and headache. He stated the symptoms started suddenly when he was sitting in thechair after returning from work thatday. CTA head and neck demonstrated left vertebral artery occlusion near originwhich prompted a transfer to [facility] in [place]. MRI of the brain showed late acute [...] demonstrating pseudocyst. On 12/30/2022 patient underwent a CIRCULAR SAW OPERATOR shunt placement due to obstructive hydrocephalus and [...] generally healthy and worked full- time at [employer]. Interval History: Still retaining urine, required [...] % (Auto) 65.2 Lymph % (Auto) 25.4 Winston % (Auto) 6.7 Eos % (Auto) 2.4 Baso % (Auto) 0.3 Nucleat RBC Rel Count 0.1 Neut # (Auto) 5.2 Lymph # (Auto) 2.0 Winston # (Auto) 0.5 Eos # (Auto) 0.2 Baso # (Auto) 0.0 PHA Creatinine Clear 131.71 Sodium 134 L Potassium 3.8 Chloride 98 Carbon Dioxide 29.2 Anion Gap 10.6 BUN 16 Creatinine 1.04 Est GFR (CKD-EPI) > 60.0 Glucose 147 H Calcium 9.3 Urine Color Avery A Urine Appearance Cloudy A Urine pH 5.5 Ur Specific [place] 1.024 Urine Protein 100 H Urine Glucose [...] mg 01/03/23 15:41 Bisacodyl 10 Mg Supp.Rect AR 01/03/24 15:40 DAILY PRN Constipation Carvedilol 12.5 [...] 15:41 Docusate Enema 283 Mg/5 Ml Enema AR 01/03/24 15:40 DAILY PRN Constipation Lactulose 30 [...] DAILY LEANNA Administration Assessment/Plan Assessment/Plan (1) S/P CIRCULAR SAW OPERATOR shunt: Code(s): Z98.2 - Presence of cerebrospinal [...] functional impairmentssecondary to left cerebellar CVA s/p CIRCULAR SAW OPERATOR shunt placement due to development of hydrocephalus. [...] equipment to enhance the patient's a functional sikhism Ensure adequate nutrition and hydration Sleep: No issues Pain: Continue current regimen Discharge planning:. Home 01/24. I spent greater than 25 minutes for services, including rxrc-kr-owlw encounter with the patient, discussion of the case, plan of care, and exam; and qtuxjfl-rg-ylux activities, such as reviewing pertinent product marketing consultant documentation,recent therapy notes, laboratory and radiology studies, and discussion of case with care team including physician, nursing, case aide, and therapists. More than 50 % of time was spent on patient/family counseling or coordination ofcare. Documented By: Srinivas Patricia MD 01/23/23 1024 Signed By: <Electronically signed by Srinivas Patricia MD> 01/23/23 1027 [facility] Work Phone: 1(475) 540-659408-14-2023 Progress note Author Srinivas Patricia [facility] January 22, 2023 2:08pmNote Date/TimeAugust 2022 9:41[place] [address] Physiatry(Rehab) Progress Note Signed Patient: Taras Hayward MR#: [id number] : 1970 Acct:[id number] Age/Sex: 52 / M Adm Date: 3 Loc: Room: 7Y5681-9 Type: ADM IN Attending Dr: Srinivas Patricia MD Copies to: ~ Date of Service: 01/22/2023 Subjective Subjective Narrative: Mr. Hayward is a 52 year old male presenting to inpatient rehab unit with functional impairments secondary to left cerebellar CVA. His past medical history is notable for obesity, hypertension, nephrolithiasis, gastric bypass surgery. Patient presented to [place] emergency department via EMS with complaints of dizziness, nausea andvomiting, vertigo, and headache. He stated the symptoms started suddenly when he was sitting in thechair after returning from work thatday. CTA head and neck demonstrated left vertebral artery occlusion near originwhich prompted a transfer to [facility] in [place]. MRI of the brain showed late acute [...] demonstrating pseudocyst. On 12/30/2022 patient underwent a CIRCULAR SAW OPERATOR shunt placement due to obstructive hydrocephalus and [...] generally healthy and worked full- time at [employer]. Interval History: He's doing well today. Mood is brighter. Ambulatory 235'. Improved with [facility]. Anxious for home discharge. Vitals stable on [...] mg 01/03/23 15:41 Bisacodyl 10 Mg Supp.Rect AR 01/03/24 15:40 DAILY PRN Constipation Carvedilol 12.5 [...] 15:41 Docusate Enema 283 Mg/5 Ml Enema AR 01/03/24 15:40 DAILY PRN Constipation Lactulose 30 [...] DAILY LEANNA Administration Assessment/Plan Assessment/Plan (1) S/P CIRCULAR SAW OPERATOR shunt: Code(s): Z98.2 - Presence of cerebrospinal [...] functional impairmentssecondary to left cerebellar CVA s/p CIRCULAR SAW OPERATOR shunt placement due to development of hydrocephalus. . He does complain of continued intermittent headaches, nausea/vomiting, dizziness/lightheadedness. * Improved today, ambulatory and working with PT/OT/[facility]. * Mood improved. * D/C kramer after [...] equipment to enhance the patient's a functional sikhism Ensure adequate nutrition and hydration Sleep: No issues Pain: Continue current regimen Discharge planning:. Home 01/24. I spent greater than 25 minutes for services, including gvma-pe-seit encounter with the patient, discussion of the case, plan of care, and exam; and tuhdygm-bk-zung activities, such as reviewing pertinent product marketing consultant documentation, recent therapy notes, laboratory and radiology studies, and discussion of case with care team including physician, nursing, case aide, and therapists. More than 50 % of time was spent on patient/family counseling or coordination ofcare. Documented By: Srinivas Patricia MD 01/22/23 5439 Signed By: <Electronically signed by Srinivas Patricia MD> 01/22/23 5602 [facility] Work Phone: 1(913) 776-329508-11-2023 Progress note Author Srinivas Patricia [facility] January 19, 2023 1:10pmNote Date/TimeAugust 2022 1:10pmK[place] [address] Physiatry(Rehab) Progress Note Signed Patient: Taras Hayward MR#: [id number] : 1970 Acct:[id number] Age/Sex: 52 / M Adm Date: 3 Loc: Room: [address] [place] [address] Type: ADM IN Attending Dr: Srinivas Patricia MD Copies to: ~ Date of Service: 01/19/2023 Subjective Subjective Narrative: Mr. Hayward is a 52 year old male presenting to inpatient rehab unit with functional impairments secondary to left cerebellar CVA. His past medical history is notable for obesity, hypertension, nephrolithiasis, gastric bypass surgery. Patient presented to [place] emergency department via EMS with complaints of dizziness, nausea andvomiting, vertigo, and headache. He stated the symptoms started suddenly when he was sitting in thechair after returning from work thatday. CTA head and neck demonstrated left vertebral artery occlusion near originwhich prompted a transfer to [facility] in [place]. MRI of the brain showed late acute [...] demonstrating pseudocyst. On 12/30/2022 patient underwent a CIRCULAR SAW OPERATOR shunt placement due to obstructive hydrocephalus and [...] generally healthy and worked full- time at [employer]. Interval History: In place for retention. [...] % (Auto) 53.7 Lymph % (Auto) 36.1 Winston % (Auto) 8.7 Eos % (Auto) 1.2 Baso % (Auto) 0.3 Nucleat RBC Rel Count 0.2 Neut # (Auto) 4.7 Lymph # (Auto) 3.2 Winston # (Auto) 0.8 Eos # (Auto) 0.1 [...] mg 01/03/23 15:41 Bisacodyl 10 Mg Supp.Rect AR 01/03/24 15:40 DAILY PRN Constipation Carvedilol 12.5 [...] 15:41 Docusate Enema 283 Mg/5 Ml Enema AR 01/03/24 15:40 DAILY PRN Constipation Lactulose 30 [...] DAILY LEANNA Administration Assessment/Plan Assessment/Plan (1) S/P CIRCULAR SAW OPERATOR shunt: Code(s): Z98.2 - Presence of cerebrospinal [...] functional impairmentssecondary to left cerebellar CVA s/p CIRCULAR SAW OPERATOR shunt placement due to development of hydrocephalus. [...] equipment to enhance the patient's a functional sikhism Ensure adequate nutrition and hydration Sleep: No issues Pain: Continue current regimen Discharge planning:. Home next week. I spent greater than 25 minutes for services, including zxqg-pt-hchb encounter with the patient, discussion of the case, plan of care, and exam; and lbldfdv-xs-exuh activities, such as reviewing pertinent product marketing consultant documentation, recent therapy notes, laboratory and radiology studies, and discussion of case with care team including physician, nursing, case aide, and therapists. More than 50 % of time was spent on patient/family counseling or coordination ofcare. Documented By: Srinivas Patricia MD 01/19/23 1308 Signed By: <Electronically signed by Srinivas Patricia MD> 01/19/23 1310 [facility] Work Phone: 1(822) 202-157508-11-2023 Progress note Author Srinivas Patricia [facility] January 19, 2023 12:14pmNote Date/TimeAugust 2022 1:17pm[place] [address] Physiatry(Rehab) Progress Note Signed Patient: Taras Hayward MR#: [id number] : 1970 Acct:[id number] Age/Sex: 52 / M Adm Date: 3 Loc: 5T Room: 0Z7308-5 Type: ADM IN Attending Dr: Srinivas Patricia MD Copies to: ~ <Tisha Cardona, CORK CUTTER - Last Filed: 01/18/23 13:51> Date of Service: 01/18/2023 Subjective <Tisha Cardona - Last Filed: 01/18/23 13:51> Subjective Narrative: Mr. Hayward is a 52 year old male presenting to inpatient rehab unit with functional impairments secondary to left cerebellar CVA. His past medical history is notable for obesity, hypertension, nephrolithiasis, gastric bypass surgery. Patient presented to [place] emergency department via EMS with complaints of dizziness, nausea andvomiting, vertigo, and headache. He stated the symptoms started suddenly when he was sitting in thechair after returning from work thatday. CTA head and neck demonstrated left vertebral artery occlusion near originwhich prompted a transfer to [facility] in [place]. MRI of the brain showed late acute [...] demonstrating pseudocyst. On 12/30/2022 patient underwent a CIRCULAR SAW OPERATOR shunt placement due to obstructive hydrocephalus and [...] generally healthy and worked full- time at [employer]. Interval History: Feeling somewhat better this [...] Insight: Good Judgment: Good Objective <Tisha Cardona, CORK CUTTER - Last Filed: 01/18/23 13:51> Labs 01/13/23 [...] mg 01/03/23 15:41 Bisacodyl 10 Mg Supp.Rect AR 01/03/24 15:40 DAILY PRN Constipation Carvedilol 12.5 [...] 15:41 Docusate Enema 283 Mg/5 Ml Enema AR 01/03/24 15:40 DAILY PRN Constipation Lactulose 30 [...] mg DAILY LEANNA Administration Assessment/Plan <Tisha Cardona, CORK CUTTER - Last Filed: 01/18/23 13:51> Assessment/Plan (1) S/P CIRCULAR SAW OPERATOR shunt: Code(s): Z98.2 - Presence of cerebrospinal [...] functional impairmentssecondary to left cerebellar CVA s/p CIRCULAR SAW OPERATOR shunt placement due to development of hydrocephalus. [...] equipment to enhance the patient's a functional sikhism Ensure adequate nutrition and hydration Sleep: No issues Pain: Continue current regimen Discharge planning:. Home 1-2 weeks. I spent greater than 20 minutes for services, including iqwc-te-kojt encounter with the patient, discussion of the case, plan of care, and exam; and ywfcbfi-xc-vexi activities, such as reviewing pertinent product marketing consultant documentation, recent therapy notes, laboratory and radiology studies, and discussion of case with care team including physician, nursing, case aide, and therapists. More than 50 % of time was spent on patient/family counseling or coordination ofcare. Plan: 3 <Irvin Sifuentes MD - Last Filed: 01/19/23 09:00> Assessment/Plan (1) S/P CIRCULAR SAW OPERATOR shunt: (2) Hydrocephalus: (3) Cerebellar infarct: (4) Hypertension: (5) Obesity (BMI 35.0-39.9 without comorbidity): (6) Tachycardia: (7) Impaired mobility and activities of daily living: (8) DVT, popliteal, acute: Plan: I reviewed the history and the relevant portions of the chart, including currentorders, allied health and product marketing consultant notes, labs/imaging and plan of care as above. I reviewed the history and the relevant portions of the chart, including currentorders, allied health and product marketing consultant notes, labs/imaging and plan of care as above. Documented By: Tisha Cardona APRN 01/18/23 1 315 Signed By: <Electronically signed by ARDHA Cardona> 01/18/23 1351 <Electronically signed by Srinivas Patricia MD> 01/19/23 1214 <Electronically signed by Irvin Sifuentes MD> 01/19/23 0900 [facility] Work Phone: 1(223) 317-867808-10-2023 Progress note Author Pilo Nieto [facility] January 18, 2023 5:10pmNote Date/TimeAugust 2022 5:10pmK[place] [address] Neurology Progress Note Signed Patient: Taras Hayward MR#: [id number] : 1970 Acct:[id number] Age/Sex: 52 / M Adm Date: 3 Loc: Room: [address] [place] [address] Type: ADM IN Attending Dr: Srinivas Patricia [...] signed by Pilo Nieto DO> 01/18/23 1710 [facility] Work Phone: 1(601) 129-521008-09-2023 Progress note Author Srinivas Patricia [facility] January 17, 2023 4:18pmNote Date/TimeAugust 2022 4:18pmK[place] [address] Physiatry(Rehab) Progress Note Signed Patient: Taras Hayward MR#: [id number] : 1970 Acct:[id number] Age/Sex: 52 / M Adm Date: 3 Loc: Room: [address] [place] [address] Type: ADM IN Attending Dr: Srinivas Patricia MD Copies to: ~ Date of Service: 01/17/2023 Subjective Subjective Narrative: Mr. Hayward is a 52 year old male presenting to inpatient rehab unit with functional impairments secondary to left cerebellar CVA. His past medical history is notable for obesity, hypertension, nephrolithiasis, gastric bypass surgery. Patient presented to [place] emergency department via EMS with complaints of dizziness, nausea andvomiting, vertigo, and headache. He stated the symptoms started suddenly when he was sitting in thechair after returning from work thatday. CTA head and neck demonstrated left vertebral artery occlusion near originwhich prompted a transfer to [facility] in [place]. MRI of the brain showed late acute [...] demonstrating pseudocyst. On 12/30/2022 patient underwent a CIRCULAR SAW OPERATOR shunt placement due to obstructive hydrocephalus and [...] generally healthy and worked full- time at [employer]. Interval History: NSGY able to interrogate [...] 05:00 01/17/23 07:30 Narrative: General: cooperative, comfortable [facility] Head: normal to inspection Eyes [...] mg 01/03/23 15:41 Bisacodyl 10 Mg Supp.Rect AR 01/03/24 15:40 DAILY PRN Constipation Carvedilol 12.5 [...] 15:41 Docusate Enema 283 Mg/5 Ml Enema AR 01/03/24 15:40 DAILY PRN Constipation Lactulose 30 [...] DAILY LEANNA Administration Assessment/Plan Assessment/Plan (1) S/P CIRCULAR SAW OPERATOR shunt: Code(s): Z98.2 - Presence of cerebrospinal [...] functional impairmentssecondary to left cerebellar CVA s/p CIRCULAR SAW OPERATOR shunt placement due to development of hydrocephalus. . He does complain of continued intermittent headaches, nausea/vomiting, dizziness/lightheadedness. Therapy limited by dizziness/nausea this afternoon. This morning worked well with [facility], minimal dysarthria, improved vocal quality. I reviewed [...] equipment to enhance the patient's a functional sikhism Ensure adequate nutrition and hydration Sleep: No issues Pain: Continue current regimen Discharge planning:. Home 1-2 weeks. I spent greater than 35 minutes for services, including rone-ld-levj encounter with the patient, discussion of the case, plan of care, and exam; and gngekrl-do-akpj activities, such as reviewing pertinent product marketing consultant documentation, recent therapy notes, laboratory and radiology studies, and discussion of case with care team including physician, nursing, case aide, and therapists. More than 50 % of time was spent on patient/family counseling or coordination ofcare. Plan: 3 Documented By: Srinivas Patricia MD 01/17/231611 Signed By: <Electronically signed by Srinivas Patricia MD> 01/17/231617 [facility] Work Phone: 1(153) 485-420608-08-2023 Progress note Author Pilo Nieto [facility] January 16, 2023 6:10pmNote Date/TimeAugust 2022 6:10pm[place] [address] Neurology Progress Note Signed Patient: Taras Hayward MR#: [id number] : 1970 Acct:[id number] Age/Sex: 52 / M Adm Date: 3 Loc: Room: [address] [place] [address] Type: ADM IN Attending Dr: Srinivas Patricia [...] <Electronically signed by Pilo Nieto DO> 01/16/231809 [facility] Work Phone: 1([phone]) 614-678008-08-2023 Progress note Author Srinivas Patricia [facility] January 16, 2023 2:58pmNote Date/TimeAugust 2022 2:59pm[place] [address] Physiatry(Rehab) Progress Note Signed Patient: Taras Hayward MR#: [id number] : 1970 Acct:[id number] Age/Sex: 52 / M Adm Date: 3 Loc: 5T Room: 5C5488-8 Type: ADM IN Attending Dr: Srinivas Patricia MD Copies to: ~ Date of Service: 01/16/2023 Subjective Subjective Narrative: Mr. Hayward is a 52 year old male presenting to inpatient rehab unit with functional impairments secondary to left cerebellar CVA. His past medical history is notable for obesity, hypertension, nephrolithiasis, gastric bypass surgery. Patient presented to [place] emergency department via EMS with complaints of dizziness, nausea andvomiting, vertigo, and headache. He stated the symptoms started suddenly when he was sitting in thechair after returning from work thatday. CTA head and neck demonstrated left vertebral artery occlusion near originwhich prompted a transfer to [facility] in [place]. MRI of the brain showed late acute [...] demonstrating pseudocyst. On 12/30/2022 patient underwent a CIRCULAR SAW OPERATOR shunt placement due to obstructive hydrocephalus and [...] generally healthy and worked full- time at [employer]. Interval History: Seen and examined at [...] mg 01/03/23 15:41 Bisacodyl 10 Mg Supp.Rect AR 01/03/24 15:40 DAILY PRN Constipation Carvedilol 12.5 [...] 15:41 Docusate Enema 283 Mg/5 Ml Enema AR 01/03/24 15:40 DAILY PRN Constipation Lactulose 30 [...] DAILY LEANNA Administration Assessment/Plan Assessment/Plan (1) S/P CIRCULAR SAW OPERATOR shunt: Code(s): Z98.2 - Presence of cerebrospinal [...] functional impairmentssecondary to left cerebellar CVA s/p CIRCULAR SAW OPERATOR shunt placement due to development of hydrocephalus. [...] one was scheduled for follow up from [place], one after a fall and one after [...] equipment to enhance the patient's a functional sikhism Ensure adequate nutrition and hydration Sleep: No issues Pain: Continue current regimen Discharge planning:. Recovery has been complicated by UTI and DVT. In a week or so, pending insurance recert. I spent greater than 25 minutes for services, including gryw-aj-dgrs encounter with the patient, discussion of the case, plan of care, and exam; and hchjarw-ex-auio activities, such as reviewing pertinent product marketing consultant documentation, recent therapy notes, laboratory and radiology studies, and discussion of case with care team including physician, nursing, case aide, and therapists. More than 50 % of time was spent on patient/family counseling or coordination ofcare. Documented By: Srinivas Patricia MD 01/16/231453 Signed By: <Electronically signed by Srinivas Patricia MD> 01/16/231457 [facility] Work Phone: 1(650) 855-259608-07-2023 Progress note Author Pilo Nieto [facility] January 15, 2023 5:03pmNote Date/TimeAugust 2022 8:05[place] [address] Neurology Progress Note Signed Patient: Taras Hayward MR#: [id number] : 1970 Acct:[id number] Age/Sex: 52 / M Adm Date: 3 Loc: Room: [address] [place] [address] Type: ADM IN Attending Dr: Srinivas Patricia [...] <Electronically signed by Pilo Nieto DO> 01/15/23 3232 [facility] Work Phone: 1([phone]) 478-849608-07-2023 Progress note Author Srinivas Patricia [facility] January 15, 2023 1:09pmNote Date/TimeAugust 2022 1:09pmKelly [place] [id number] Physiatry(Rehab) Progress Note Signed Patient: Taras Hayward MR#: [id number] : 1970 Acct:[id number] Age/Sex: 52 / M Adm Date: 3 Loc: Room: 9O0738-1 Type: ADM IN Attending Dr: Srinivas Patricia MD Copies to: ~ Date of Service: 01/15/2023 Subjective Subjective Narrative: Mr. Hayward is a 52 year old male presenting to inpatient rehab unit with functional impairments secondary to left cerebellar CVA. His past medical history is notable for obesity, hypertension, nephrolithiasis, gastric bypass surgery. Patient presented to [place] emergency department via EMS with complaints of dizziness, nausea andvomiting, vertigo, and headache. He stated the symptoms started suddenly when he was sitting in thechair after returning from work thatday. CTA head and neck demonstrated left vertebral artery occlusion near originwhich prompted a transfer to [facility] in [place]. MRI of the brain showed late acute [...] demonstrating pseudocyst. On 12/30/2022 patient underwent a CIRCULAR SAW OPERATOR shunt placement due to obstructive hydrocephalus and [...] generally healthy and worked full- time at [employer]. Interval History: Reports symptoms are improved [...] 08:44 01/15/23 08:44 Narrative: General: cooperative, comfortable [facility] Head: normal to inspection Eyes General: appearance [...] mg 01/03/23 15:41 Bisacodyl 10 Mg Supp.Rect AR 01/03/24 15:40 DAILY PRN Constipation Carvedilol 12.5 [...] 15:41 Docusate Enema 283 Mg/5 Ml Enema AR 01/03/24 15:40 DAILY PRN Constipation Lactulose 30 [...] DAILY LEANNA Administration Assessment/Plan Assessment/Plan (1) S/P CIRCULAR SAW OPERATOR shunt: Code(s): Z98.2 - Presence of cerebrospinal [...] functional impairmentssecondary to left cerebellar CVA s/p CIRCULAR SAW OPERATOR shunt placement due to development of hydrocephalus. [...] one was scheduled for follow up from [place], and one after starting anticoagulation.None demonstrate acute [...] equipment to enhance the patient's a functional sikhism Ensure adequate nutrition and hydration Sleep: No issues Pain: Continue current regimen Discharge planning:. Recovery has been complicated by UTI and DVT. In a week or so, pending insurance recert. I spent greater than 25 minutes for services, including artk-lv-qvcm encounter with the patient, discussion of the case, plan of care, and exam; and cbemzgp-io-cxbq activities, such as reviewing pertinent product marketing consultant documentation, recent therapy notes, laboratory and radiology studies, and discussion of case with care team including physician, nursing, case aide, and therapists. More than 50 % of time was spent on patient/family counseling or coordination ofcare. Documented By: Srinivas Patricia MD 01/15/23 1304 Signed By: <Electronically signed by Srinivas Patricia MD> 01/15/23 1309 [facility] Work Phone: 1(284) 140-482508-06-2023 Consult note Author Megha Lacy [facility] January 14, 2023 12:14pmNote Date/TimeAugust 2022 10:58[place] [address] Neurology Consult Note Signed Patient: Taras Hayward MR#: [id number] : 1970 Acct:[id number] Age/Sex: 52 / M Adm Date: 3 Loc: Room: [address] [place] [address] Type: ADM IN Attending Dr: Srinivas Patricia MD Copies to: Srinivas Patricia MD NO FAMILY PHYSICIAN Megha Lacy DO~ HPI Consult Date: 01/14/23 Day Care Home Mother: Megha Lacy DO Reason for consult: cerebellar infarct s/p CIRCULAR SAW OPERATOR shunt placement. Consult Narrative HPI: 52 year old male being seen in Neurology consultation at the request of Dr. Patricia. Patient is currently admitted to the inpatient rehab unit for intense rehab after a left cerebellar infarct resulting in significant edema that required decompressive surgery and later developed hydrocephalus requiring placement of CIRCULAR SAW OPERATOR shunt. He has a prior history of obesity, hypertension, nephrolithiasis, gastric bypass surgery. The patient initally presented to [place] emergency department via EMS with complaints of dizziness, nausea and vomiting, vertigo, and headache.? He stated the symptoms started suddenly when he was sitting in the chair after returning from work that day.? CTA head and neck demonstrated left vertebral artery occlusion near origin which prompted a transfer to [facility] in [place]. He was found to have an evolving [...] demonstrating pseudocyst.? On 12/30/2022 patient underwent a CIRCULAR SAW OPERATOR shunt placement due to obstructive hydrocephalus and malignant edema, EVD removed at that time. The pateint's treatment and work up was completed in [place]. The patient was then transferred [place] [facility] [place]. The patient has continued [...] Hydrocephalus Hypertension Obesity Tachycardia Surgical History S/P CIRCULAR SAW OPERATOR shunt Social History Smoking Status: Never smoker [...] Harsh Rodriguez M.D.01/08/2023 3:35 PM Dictation [facility] 01/09/23 09:06 IMPRESSION: No significant interval change. No acute intracranial pathology. Impression dictated by: Harsh Rodriguez M.D.01/09/2023 11:00 AM Dictation Location: [employer]-12 Venous Duplex 01/11/23 07:54 IMPRESSION: This examination [...] infarct for which she was seen at [place] roomand then transferred to [place]. Sudden onset of dizziness headache and dysmetria. He did have complications of edema with shift requiring decompressive surgery and then hydrocephalus requiring CIRCULAR SAW OPERATOR shunt placement. He is now at [facility] for [place]. He has had continued dizziness [...] - Hydrocephalus, unspecified Status: Acute (3) S/P CIRCULAR SAW OPERATOR shunt: Code(s): Z98.2 - Presence of cerebrospinal fluid drainage device Status: Acute (4) Dizziness: Code(s): R42 - Dizziness and giddiness Status: Acute (5) Nausea: Code(s): R11.0 - Nausea Status: Acute (6) DVT, popliteal, acute: Code(s): I82.439 - Acute embolism and thrombosis of unspecified popliteal vein Status: Acute Documented By: Megha Lacy DO 01/14/23 1051 Signed By: <Electronically signed by DO Megha Lacy> 01/14/23 [facility] Work Phone: 1([phone]) 669-938408-05-2023 Progress note Author Srinivas Patricia [facility] January 13, 2023 11:55amNote Date/TimeAugust 2022 10:05[place] [address] Physiatry(Rehab) Progress Note Signed Patient: Taras Hayward MR#: [id number] : 1970 Acct:[id number] Age/Sex: 52 / M Adm Date: 3 Loc: Room: 4T1785-3 Type: ADM IN Attending Dr: Srinivas Patricia MD Copies to: ~ Date of Service: 01/13/2023 Subjective Subjective Narrative: Mr. Hayward is a 52 year old male presenting to inpatient rehab unit with functional impairments secondary to left cerebellar CVA. His past medical history is notable for obesity, hypertension, nephrolithiasis, gastric bypass surgery. Patient presented to [place] emergency department via EMS with complaints of dizziness, nausea andvomiting, vertigo, and headache. He stated the symptoms started suddenly when he was sitting in thechair after returning from work thatday. CTA head and neck demonstrated left vertebral artery occlusion near originwhich prompted a transfer to [facility] in [place]. MRI of the brain showed late acute [...] demonstrating pseudocyst. On 12/30/2022 patient underwent a CIRCULAR SAW OPERATOR shunt placement due to obstructive hydrocephalus and [...] generally healthy and worked full- time at [employer]. Interval History: He was started on [...] mg 01/03/23 15:41 Bisacodyl 10 Mg Supp.Rect AR 01/03/24 15:40 DAILY PRN Constipation Carvedilol 12.5 mg 01/05/23 09:15 01/13/23 07:59 Carvedilol 12.5 Mg Tablet PO 01/05/24 09:14 12.5 mg Q12HR LEANNA Administration Docusate Sodium 100 mg 01/03/23 15:41 Docusate 100 Mg Capsule PO 01/03/24 15:40 BID PRN Constipation Docusate Sodium 283 mg 01/03/23 15:41 Docusate Enema 283 Mg/5 Ml Enema AR 01/03/24 15:40 DAILY PRN Constipation Lactulose 30 [...] DAILY LEANNA Administration Assessment/Plan Assessment/Plan (1) S/P CIRCULAR SAW OPERATOR shunt: Code(s): Z98.2 - Presence of cerebrospinal [...] functional impairmentssecondary to left cerebellar CVA s/p CIRCULAR SAW OPERATOR shunt placement due to development of hydrocephalus. [...] equipment to enhance the patient's a functional sikhism Ensure adequate nutrition and hydration Sleep: No issues Pain: Continue current regimen Discharge planning: Home with partner next week, pending insurance recertification. I spent greater than 25 minutes for services, including aycz-xo-huwm encounter with the patient, discussion of the case, plan of care, and exam; and ltbcgom-aj-lcsp activities, such as reviewing pertinent product marketing consultant documentation, recent therapy notes, laboratory and radiology studies, and discussion of case with care team including physician, nursing, case aide, andtherapists. More than 50 % of time was spent on patient/family counseling or coordination ofcare. Plan: \ Documented By: Srinivas Patricia MD 01/13/23 1005 Signed By: <Electronically signed by Srinivas Patricia MD> 01/13/23 8172 [facility] Work Phone: 1(300) 190-643608-04-2023 Progress note Author Srinivas Patricia [facility] January 12, 2023 8:34pmNote Date/TimeAugust 2022 2:16pmKelly [place] [id number] Physiatry(Rehab) Progress Note Signed Patient: Taras Hayward MR#: [id number] : 1970 Acct:[id number] Age/Sex: 52 / M Adm Date: 3 Loc: Room: 6K8613-5 Type: ADM IN Attending Dr: Srinivas Patricia [...] nephrolithiasis, gastric bypass surgery. Patient presented to [place] emergency department via EMS with complaints of dizziness, nausea andvomiting, vertigo, and headache. He stated the symptoms started suddenly when he was sitting in thechair after returning from work thatday. CTA head and neck demonstrated left vertebral artery occlusion near originwhich prompted a transfer to [facility] in [place]. MRI of the brain showed late acute [...] demonstrating pseudocyst. On 12/30/2022 patient underwent a CIRCULAR SAW OPERATOR shunt placement due to obstructive hydrocephalus and [...] generally healthy and worked full- time at [employer]. Interval History: Right leg venous ultrasound [...] Cloudy A Urine pH 6.0 Ur Specific [place] 1.019 Urine Protein Trace H Urine Glucose [...] mg 01/03/23 15:41 Bisacodyl 10 Mg Supp.Rect AR 01/03/24 15:40 DAILY PRN Constipation Carvedilol 12.5 mg 01/05/23 09:15 01/11/23 08:41 Carvedilol 12.5 Mg Tablet PO 01/05/24 09:14 12.5 mg Q12HR LEANNA Administration Docusate Sodium 100 mg 01/03/23 15:41 Docusate 100 Mg Capsule PO 01/03/24 15:40 BID PRN Constipation Docusate Sodium 283 mg 01/03/23 15:41 Docusate Enema 283 Mg/5 Ml Enema AR 01/03/24 15:40 DAILY PRN Constipation Lactulose 30 [...] mg DAILY LEANNA Administration Assessment/Plan <Tisha Cardona, CORK CUTTER - Last Filed: 01/11/23 14:16> Assessment/Plan (1) S/P CIRCULAR SAW OPERATOR shunt: Code(s): Z98.2 - Presence of cerebrospinal [...] functional impairmentssecondary to left cerebellar CVA s/p CIRCULAR SAW OPERATOR shunt placement due to development of hydrocephalus. [...] equipment to enhance the patient's a functional sikhism Ensure adequate nutrition and hydration Sleep: No issues Pain: Continue current regimen Discharge planning: Home with partner next week, pending insurance recertification. I spent greater than 15 minutes for services, including kknu-tj-ssoz encounter with the patient, discussion of the case, plan of care, and exam; and svdfsvu-kn-hbzk activities, such as reviewing pertinent product marketing consultant documentation, recent therapy notes, laboratory and radiology studies, and discussion of case with care team including physician, nursing, case aide, and therapists. More than 50 % of time was spent on patient/family counseling or coordination ofcare. <Srinivas Patricia MD - Last Filed: 01/12/23 20:34> Assessment/Plan (1) S/P CIRCULAR SAW OPERATOR shunt: (2) Hydrocephalus: (3) Cerebellar infarct: (4) Hypertension: (5) Obesity (BMI 35.0-39.9 without comorbidity): (6) Tachycardia: (7) Impaired mobility and activities of daily living: Plan: I reviewed the history and the relevant portions of the chart, including currentorders, allied health and product marketing consultant notes, labs/imaging and plan of care as above. Documented By: Tisha Cardona APRN 01/11/23 1 405 Signed By: <Electronically signed by RADHA Cardona> 01/11/23 1416 <Electronically signed by Srinivas Patricia MD> 01/12/232033 [facility] Work Phone: 1(224) 577-767908-04-2023 Consult note Author Gerardo Miranda [facility] January 12, 2023 11:49amNote Date/TimeAugust 2022 4:28pm[place] [address] Vascular Surgery Consult Note Signed Patient: Taras Hayward MR#: [id number] : 1970 Acct:[id number] Age/Sex: 52 / M Adm Date: 3 Loc: Room: [address] [place] [address] Type: ADM IN Attending Dr: Srinivas Patricia [...] for hydrocephalus patient had recent placement of CIRCULAR SAW OPERATOR shunt in [place]. He currently suffers from ongoing nausea and [...] Hydrocephalus Hypertension Obesity Tachycardia Surgical History S/P CIRCULAR SAW OPERATOR shunt Social History Smoking Status: Never smoker [...] Cloudy A Urine pH 6.0 Ur Specific [place] 1.019 Urine Protein Trace H Urine Glucose (UA) Normal Urine Ketones 1+ H Urine Occult Blood Trace H Urine Nitrite Negative Urine Bilirubin Negative Urine Urobilinogen Normal Ur Leukocyte Esterase 4+ H Urine RBC 10-19 H Urine WBC 50-100 H Ur Squamous Epith Cells None seen Urine Bacteria 4+ H Hyaline Casts 0-8 A&P - Vascular (1) S/P CIRCULAR SAW OPERATOR shunt: Code(s): Z98.2 - Presence of cerebrospinal [...] signed by MD Gerardo Miranda> 01/12/23 1144 [facility] Work Phone: 1(399) 898-965108-03-2023 Progress note Author Srinivas Patricia [facility] January 11, 2023 8:01amNote Date/TimeAugust 2022 3:05pm[place] [address] Physiatry(Rehab) Progress Note Signed Patient: Taras Hayward MR#: [id number] : 1970 Acct:[id number] Age/Sex: 52 / M Adm Date: 3 Loc: Room: [address] [place] [address] Type: ADM IN Attending Dr: Srinivas Patricia MD Copies to: ~ Date of Service: 01/10/2023 Subjective Subjective Narrative: Mr. Hayward is a 52 year old male presenting to inpatient rehab unit with functional impairments secondary to left cerebellar CVA. His past medical history is notable for obesity, hypertension, nephrolithiasis, gastric bypass surgery. Patient presented to [place] emergency department via EMS with complaints of dizziness, nausea andvomiting, vertigo, and headache. He stated the symptoms started suddenly when he was sitting in thechair after returning from work thatday. CTA head and neck demonstrated left vertebral artery occlusion near originwhich prompted a transfer to [facility] in [place]. MRI of the brain showed late acute [...] demonstrating pseudocyst. On 12/30/2022 patient underwent a CIRCULAR SAW OPERATOR shunt placement due to obstructive hydrocephalus and [...] generally healthy and worked full- time at [employer]. Interval History: Ambulatory 180' and able to do one flight of stairs with therapy. Vitals are stable, no new focal neurologic deficit. Partner at bedside, notes patient seems more fatigued and was a little confused this morning. CT head last two days largely unremarkable, results to NSGY in [place]. Family concerned about mood, wonders if patient [...] mg 01/03/23 15:41 Bisacodyl 10 Mg Supp.Rect AR 01/03/24 15:40 DAILY PRN Constipation Carvedilol 12.5 mg 01/05/23 09:15 01/10/23 08:42 Carvedilol 12.5 Mg Tablet PO 01/05/24 09:14 12.5 mg Q12HR LEANNA Administration Docusate Sodium 100 mg 01/03/23 15:41 Docusate 100 Mg Capsule PO 01/03/24 15:40 BID PRN Constipation Docusate Sodium 283 mg 01/03/23 15:41 Docusate Enema 283 Mg/5 Ml Enema AR 01/03/24 15:40 DAILY PRN Constipation Lactulose 30 [...] PRN PRN Flush Assessment/Plan Assessment/Plan (1) S/P CIRCULAR SAW OPERATOR shunt: Code(s): Z98.2 - Presence of cerebrospinal [...] functional impairmentssecondary to left cerebellar CVA s/p CIRCULAR SAW OPERATOR shunt placement due to development of hydrocephalus. [...] equipment to enhance the patient's a functional sikhism Ensure adequate nutrition and hydration Sleep: No issues Pain: Continue current regimen Discharge planning: Home with partner next week, pending insurance recertification. Plan: I completed a substantive portion of this encounter, the medical decision makingportion of this note in its entirety, including Allied health note review, nursing note review, product marketing consultant note review,discussion with nursing and case management, and more than 50% of my time was spent on counseling and coordination of care, time spent 25 minutes Patient was personally seen by me, Dr. Patricia, on the day of encounter, reviewed the history and therelevant portions of the chart, including current orders, allied health and product marketing consultant notes, labs/imaging and performed coronado elements of exam and I formulated the plan of care and facilitated the medical decision making. Documented By: Srinivas Patricia MD 01/10/23 1505 Signed By: <Electronically signed by Srinivas Patricia MD> 01/11/23 0801 [facility] Work Phone: 1(287) 635-320808-01-2023 Progress note Author Srinivas Patricia [facility] January 09, 2023 2:58pmNote Date/TimeAugust 2022 12:43pm[place] [address] Physiatry(Rehab) Progress Note Signed Patient: Taras Hayward MR#: [id number] : 1970 Acct:[id number] Age/Sex: 52 / M Adm Date: 3 Loc: Room: 6N4085-0 Type: ADM IN Attending Dr: Srinivas Patricia [...] nephrolithiasis, gastric bypass surgery. Patient presented to [place] emergency department via EMS with complaints of dizziness, nausea andvomiting, vertigo, and headache. He stated the symptoms started suddenly when he was sitting in thechair after returning from work thatday. CTA head and neck demonstrated left vertebral artery occlusion near originwhich prompted a transfer to [facility] in [place]. MRI of the brain showed late acute [...] demonstrating pseudocyst. On 12/30/2022 patient underwent a CIRCULAR SAW OPERATOR shunt placement due to obstructive hydrocephalus and [...] generally healthy and worked full- time at [employer]. Interval History: Yuniel sustained a fall [...] Chronic conditions stable. Review of Systems <Tisha aCrdona APRN - Last Filed: 01/09/23 13:29> Review [...] % (Auto) 54.8 Lymph % (Auto) 36.0 Winston % (Auto) 7.3 Eos % (Auto) 1.6 Baso % (Auto) 0.3 Nucleat RBC Rel Count 0.2 Neut # (Auto) 3.5 Lymph # (Auto) 2.3 Winston # (Auto) 0.5 Eos # (Auto) 0.1 [...] mg 01/03/23 15:41 Bisacodyl 10 Mg Supp.Rect AR 01/03/24 15:40 DAILY PRN Constipation Carvedilol 12.5 mg 01/05/23 09:15 01/09/23 11:13 Carvedilol 12.5 Mg Tablet PO 01/05/24 09:14 12.5 mg Q12HR LEANNA Administration Docusate Sodium 100 mg 01/03/23 15:41 Docusate 100 Mg Capsule PO 01/03/24 15:40 BID PRN Constipation Docusate Sodium 283 mg 01/03/23 15:41 Docusate Enema 283 Mg/5 Ml Enema AR 01/03/24 15:40 DAILY PRN Constipation Lactulose 30 [...] Last Filed: 01/09/23 13:29> Assessment/Plan (1) S/P CIRCULAR SAW OPERATOR shunt: Code(s): Z98.2 - Presence of cerebrospinal [...] functional impairmentssecondary to left cerebellar CVA s/p CIRCULAR SAW OPERATOR shunt placement due to development of hydrocephalus. [...] results were faxed to patient's neurosurgeon in [place]. * Left upper lip laceration will be [...] equipment to enhance the patient's a functional sikhism Ensure adequate nutrition and hydration Sleep: No issues Pain: Continue current regimen Discharge planning: Home with partner and 7 to 10 days. I spent greater than 15 minutes for services, including wfbz-ha-oscj encounter with the patient, discussion of the case, plan of care, and exam; and njdzpoq-sk-srde activities, such as reviewing pertinent product marketing consultant documentation, recent therapy notes, laboratory and radiology studies, and discussion of case with care team including physician, nursing, case aide, and therapists. More than 50 % of time was spent on patient/family counseling or coordination ofcare. <Srinivas Patricia MD - Last Filed: 01/09/23 14:58> Assessment/Plan (1) S/P CIRCULAR SAW OPERATOR shunt: (2) Hydrocephalus: (3) Cerebellar infarct: (4) Hypertension: (5) Obesity (BMI 35.0-39.9 without comorbidity): (6) Tachycardia: (7) Impaired mobility and activities of daily living: Plan: I completed a substantive portion of this encounter, the medical decision makingportion of this note in its entirety, including Allied health note review, nursing note review, product marketing consultant note review,discussion with nursing and case management, and more than 50% of my time was spent on counseling and coordination of care, time spent 25 minutes Patient was personally seen by me, Dr. Patricia, on the day of encounter, reviewed the history and therelevant portions of the chart, including current orders, allied health and product marketing consultant notes, labs/imaging and performed coronado elements [...] signed by Srinivas Patricia MD> 01/09/23 1458 [facility] Work Phone: [phone]) 751-475607-31-2023 Progress note Author Srinivas Patricia [facility] January 08, 2023 1:09pmNote Date/TimeJuly 2022 10:50[place] [address] Physiatry(Rehab) Progress Note Signed Patient: Taras Hayward MR#: [id number] : 1970 Acct:[id number] Age/Sex: 52 / M Adm Date: 3 Loc: Room: [address] [place] [address] Type: ADM IN Attending Dr: Srinivas Patricia [...] nephrolithiasis, gastric bypass surgery. Patient presented to [place] emergency department via EMS with complaints of dizziness, nausea andvomiting, vertigo, and headache. He stated the symptoms started suddenly when he was sitting in thechair after returning from work thatday. CTA head and neck demonstrated left vertebral artery occlusion near originwhich prompted a transfer to [facility] in [place]. MRI of the brain showed late acute [...] demonstrating pseudocyst. On 12/30/2022 patient underwent a CIRCULAR SAW OPERATOR shunt placement due to obstructive hydrocephalus and [...] generally healthy and worked full- time at [employer]. Interval History: Seen and examined in [...] Insight: Good Judgment: Good Objective <Tisha Cardona, CORK CUTTER - Last Filed: 01/08/23 10:54> Labs 01/04/23 [...] mg 01/03/23 15:41 Bisacodyl 10 Mg Supp.Rect AR 01/03/24 15:40 DAILY PRN Constipation Carvedilol 12.5 mg 01/05/23 09:15 01/08/23 09:35 Carvedilol 12.5 Mg Tablet PO 01/05/24 09:14 12.5 mg Q12HR LEANNA Administration Docusate Sodium 100 mg 01/03/23 15:41 Docusate 100 Mg Capsule PO 01/03/24 15:40 BID PRN Constipation Docusate Sodium 283 mg 01/03/23 15:41 Docusate Enema 283 Mg/5 Ml Enema AR 01/03/24 15:40 DAILY PRN Constipation Lactulose 30 [...] 15:40 PRN PRN Flush Assessment/Plan <Tisha Cardona, CORK CUTTER - Last Filed: 01/08/23 10:54> Assessment/Plan (1) S/P CIRCULAR SAW OPERATOR shunt: Code(s): Z98.2 - Presence of cerebrospinal [...] functional impairmentssecondary to left cerebellar CVA s/p CIRCULAR SAW OPERATOR shunt placement due to development of hydrocephalus. [...] equipment to enhance the patient's a functional sikhism Ensure adequate nutrition and hydration Sleep: No issues Pain: Continue current regimen Discharge planning: Home with partner and 7 to 10 days. I spent greater than 15 minutes for services, including sdud-ss-adet encounter with the patient, discussion of the case, plan of care, and exam; and hcgcuqb-yw-oskz activities, such as reviewing pertinent product marketing consultant documentation, recent therapy notes, laboratory and radiology studies, and discussion of case with care team including physician, nursing, case aide, and therapists. More than 50 % of time was spent on patient/family counseling or coordination ofcare. <Srinivas Patricia MD - Last Filed: 01/08/23 13:09> Assessment/Plan (1) S/P CIRCULAR SAW OPERATOR shunt: (2) Hydrocephalus: (3) Cerebellar infarct: (4) Hypertension: (5) Obesity (BMI 35.0-39.9 without comorbidity): (6) Tachycardia: (7) Impaired mobility and activities of daily living: Plan: I completed a substantive portion of this encounter, the medical decision makingportion of this note in its entirety, including Allied health note review, nursing note review, product marketing consultant note review,discussion with nursing and case management, and more than 50% of my time was spent on counseling and coordination of care, time spent 20 minutes Patient was personally seen by me, Dr. Patricia, on the day of encounter, reviewed the history and therelevant portions of the chart, including current orders, allied health and product marketing consultant notes, labs/imaging and performed coronado elements [...] <Electronically signed by Srinivas Patricia MD> 01/08/23 0072 [facility] Work Phone: [phone]) 881-557807-28-2023 Progress note Author Srinivas Patricia [facility] January 05, 2023 2:39pmNote Date/TimeJuly 2022 2:[place] [id number] Physiatry(Rehab) Progress Note Signed Patient: Taras Hayward MR#: [id number] : 1970 Acct:[id number] Age/Sex: 52 / M Adm Date: 3 Loc: 5T Room: 6V6957-4 Type: ADM IN Attending Dr: Srinivas Patricia MD Copies to: ~ Date of Service: 01/05/2023 Subjective Subjective Narrative: Mr. Hayward is a 52 year old male presenting to inpatient rehab unit with functional impairments secondary to left cerebellar CVA. His past medical history is notable for obesity, hypertension, nephrolithiasis, gastric bypass surgery. Patient presented to [place] emergency department via EMS with complaints of dizziness, nausea andvomiting, vertigo, and headache. He stated the symptoms started suddenly when he was sitting in thechair after returning from work thatday. CTA head and neck demonstrated [facility] in [place]. MRI of the brain showed late acute [...] demonstrating pseudocyst. On 12/30/2022 patient underwent a CIRCULAR SAW OPERATOR shunt placement due to obstructive hydrocephalus and [...] generally healthy and worked full- time at [employer]. Interval History: No events overnight, tolerating [...] mg 01/03/23 15:41 Bisacodyl 10 Mg Supp.Rect AR 01/03/24 15:40 DAILY PRN Constipation Carvedilol 12.5 mg 01/05/23 09:15 01/05/23 09:40 Carvedilol 12.5 Mg Tablet PO 01/05/24 09:14 12.5 mg Q12HR LEANNA Administration Docusate Sodium 100 mg 01/03/23 15:41 Docusate 100 Mg Capsule PO 01/03/24 15:40 BID PRN Constipation Docusate Sodium 283 mg 01/03/23 15:41 Docusate Enema 283 Mg/5 Ml Enema AR 01/03/24 15:40 DAILY PRN Constipation Lactulose 30 [...] PRN PRN Flush Assessment/Plan Assessment/Plan (1) S/P CIRCULAR SAW OPERATOR shunt: Code(s): Z98.2 - Presence of cerebrospinal [...] functional impairmentssecondary to left cerebellar CVA s/p CIRCULAR SAW OPERATOR shunt placement due to development of hydrocephalus. [...] equipment to enhance the patient's a functional sikhism Ensure adequate nutrition and hydration Sleep: No issues Pain: Continue current regimen Discharge planning: Home with partner and 7 to 10 days. Plan: I completed a substantive portion of this encounter, the medical decision makingportion of this note in its entirety, including Allied health note review, nursing note review, product marketing consultant note review,discussion with nursing and case management, and more than 50% of my time was spent on counseling and coordination of care, time spent 65 minutes Patient was personally seen by me, Dr. Patricia, on the day of encounter, reviewed the history and therelevant portions of the chart, including current orders, allied health and product marketing consultant notes, labs/imaging and performed coronado elements of exam and I formulated the plan of care and facilitated the medical decision making. Documented By: Srinivas Patricia MD 01/05/231437 Signed By: <Electronically signed by Srinivas Patricia MD> 01/05/239 [facility] Work Phone: [phone]) 943-148807-28-2023 History and physical note Author Srinivas Patricia [facility] January 05, 2023 10:29amNote Date/TimeJuly 2022 10:08[place] [address] Physiatry (Rehab) H&P Signed Patient: Taras Hayward MR#: [id number] : 1970 Acct:[id number] Age/Sex: 52 / M Adm Date: 3 Loc: Room: [address] [place] [address] Type: ADM IN Attending Dr: Srinivas Patricia [...] nephrolithiasis, gastric bypass surgery. Patient presented to [place] emergency department via EMS with complaints of dizziness, nausea andvomiting, vertigo, and headache. He stated the symptoms started suddenly when he was sitting in thechair after returning from work thatday. CTA head and neck demonstrated left vertebral artery occlusion near originwhich prompted a transfer to [facility] in [place]. MRI of the brain showed late acute [...] demonstrating pseudocyst. On 12/30/2022 patient underwent a CIRCULAR SAW OPERATOR shunt placement due to obstructive hydrocephalus and [...] generally healthy and worked full- time at [employer]. <Srinivas Patricia MD - Last Filed: 01/05/23 10:29> Etiologic Diagnosis/Impairment Group: Stroke Chief complaint: weakness and difficulty functioning History of Present Illness: Mr. Hayward is a 52 year old male presenting to inpatient rehab unit with functional impairments secondary to left cerebellar CVA. His past medical history is notable for obesity, hypertension, nephrolithiasis, gastric bypass surgery. Patient presented to [place] emergency department via EMS with complaints of dizziness, nausea andvomiting, vertigo, and headache. He stated the symptoms started suddenly when he was sitting in thechair after returning from work thatday. CTA head and neck demonstrated left vertebral artery occlusion near originwhich prompted a transfer to [facility] in [place]. MRI of the brain showed late acute [...] demonstrating pseudocyst. On 12/30/2022 patient underwent a CIRCULAR SAW OPERATOR shunt placement due to obstructive hydrocephalus and [...] generally healthy and worked full- time at [employer]. PMFSH <Tisha Cardona APRN - Last [...] 10 Mg Tablet) 10 mg PO QHS [facility] Stop: 01/03/24 21:59 Last Admin: 01/03/23 21:15 Dose: 10 mg Aspirin (Aspirin 81 Mg Tablet.Dr) [facility] [place]: 01/04/24 08:59 Last Admin: 01/04/23 08:15 Dose: 81 mg Atorvastatin Calcium (Atorvastatin 10 Mg Tablet) 10 mg PO QHS [facility] Stop: 01/03/24 21:59 Last Admin: 01/03/23 21:15 Dose: 10 mg Bisacodyl (Bisacodyl 10 Mg Supp.Rect) 10 mg AR DAILY PRN PRN Reason: Constipation Stop: 01/03/24 15:40 Carvedilol (Carvedilol 6.25 Mg Tablet) 6.25 mg PO Q12H [facility] Stop: 01/03/24 15:59 Last Admin: 01/04/23 05:25 Dose: 6.25 mg Docusate Sodium (Docusate 100 Mg Capsule) 100 mg PO BID PRN PRN Reason: Constipation Stop: 01/03/24 15:40 Docusate Sodium (Docusate Enema 283 Mg/5 Ml Enema) 283 mg AR DAILY PRN PRN Reason: Constipation Stop: 01/03/24 [...] 1 Tab Tablet) 2 tab PO BID [facility] Stop: 01/03/24 20:59 Last Admin: 01/04/23 [...] % (Auto) 55.0 Lymph % (Auto) 33.7 Winston % (Auto) 9.3 Eos % (Auto) 1.6 Baso % (Auto) 0.4 Nucleat RBC Rel Count 0.1 Neut # (Auto) 4.5 Lymph # (Auto) 2.8 Winston # (Auto) 0.8 Eos # (Auto) 0.1 [...] mobility Anticipated interventions: Physician management, PT, OT, CENTER MEDICAL SPECIALIST, , Dietitian, RehabNursing, Case management 2. Therapy Functional Outcome/Goal: Anticipate independent for transfers Anticipated interventions: Physician management, PT, OT, CENTER MEDICAL SPECIALIST, Case management, Dietitian, Rehab Nursing 3. Therapy Functional Outcome/Goal: Anticipate independent for ambulation Anticipated interventions: Physician management, PT, OT, CENTER MEDICAL SPECIALIST Case management, Dietitian, Rehab Nursing 4.Therapy Functional Outcome/Goal: Anticipate independent for self-care Anticipated interventions: Physician management, PT, OT, CENTER MEDICAL SPECIALIST, Case management, Dietitian, Rehab Nursing 5.Therapy Functional Outcome/Goal: Anticipate independent for functional cognition and swallowing Anticipated interventions: Physician management, PT, OT, CENTER MEDICAL SPECIALIST, Case management, Dietitian, Rehab Nursing Required Therapy [...] additional therapy on as needed basis. Comments: CENTER MEDICAL SPECIALIST to evaluate and treat patient?s cognition, language and communication skills, assess swallow function. Other: Dietitian, Rehab nursing, Wound, P&O, Neuropsychology as needed RATIONALE FOR IRF ADMISSION: Patient has both medical and functional complexities that require 24 hour daily monitoring and intervention from Call Center Recruiter as well as other consulting physicians including internal medicine as well as 24 hour daily implementation specialist payroll nursing - for medical safe / optimal manageme nt. Patient requires interdisciplinary therapy team rehabilitation care including OT, PT, CENTER MEDICAL SPECIALIST, SW, Psychology, Rehab Nursing, requires and can [...] - Last Filed: 01/04/23 11:34> (1) S/P CIRCULAR SAW OPERATOR shunt: Code(s): Z98.2 - Presence of cerebrospinal [...] functional impairmentssecondary to left cerebellar CVA s/p CIRCULAR SAW OPERATOR shunt placement due to development of hydrocephalus. [...] [facility]. Will monitor for now, [...] equipment to enhance the patient's a functional sikhism Ensure adequate nutrition and hydration Sleep: No issues Pain: Continue current regimen Discharge planning: Home with partner and 7 to 10 days. I spent greater than 45 minutes for services, including mxbr-eq-jxaw encounter with the patient, discussion of the case, plan of care, and exam; and isjsnzt-ip-hbbm activities, such as reviewing pertinent product marketing consultant documentation, recent therapy notes, laboratory and radiology studies, and discussion of case with care team including physician, nursing, case aide, and therapists. More than 50 % of time was spent on patient/family counseling or coordination ofcare. <Srinivas Patricia MD - Last Filed: 01/05/23 10:29> (1) S/P CIRCULAR SAW OPERATOR shunt: (2) Hydrocephalus: (3) Cerebellar infarct: (4) Hypertension: (5) Obesity (BMI 35.0-39.9 without comorbidity): (6) Tachycardia: (7) Impaired mobility and activities of daily living: Plan: I completed a substantive portion of this encounter, the medical decision makingportion of this note in its entirety, including Allied health note review, nursing note review, product marketing consultant note review,discussion with nursing and case management, and more than 50% of my time was spent on counseling and coordination of care, time spent 65 minutes Patient was personally seen by me, Dr. Patricia, on the day of encounter, reviewed the history and therelevant portions of the chart, including current orders, allied health and product marketing consultant notes, labs/imaging and performed coronado elements of exam and I formulated the plan of care and facilitated the medical decision making. Documented By: Tisha Cardona APRN 01/04/23 1 007 Signed By: <Electronically signed by RADHA Cardona> 01/04/23 1134 <Electronically signed by Srinivas Patricia MD> 01/05/23 1029 [facility] Work Phone: 1(970) [phone] Evaluation note* Encounter Date Diagnosis Assessment Notes Treatment Notes Treatment Clinical Notes Sep, Essential hypertension (ICD-10 - I10) [facility] 03-23-2023 Evaluation note* Encounter Date Diagnosis [...] surgery status (ICD-10 - Z98.84)Monitor vitamin levels. [facility] Other 02-27-2023 Evaluation note* Encounter Date Diagnosis Assessment Notes Treatment Notes Treatment Clinical Notes Jul, Heart palpitations (ICD-10 - R00 .2) [facility] Other 02-08-2023 Hospital Discharge instructions Patient Education 07/19/2022 15:38:46 Kidney Stones, Zdwk-ha-Zrrk Kidney Stones Kidney stones are rock-like masses [...] Follow these instructions at home: Medicines Take vnrr-bpp-cesrepw and prescription medicines only as told by [...] 11/13/2008 Document Revised: 10/14/2019 Document Reviewed: 10/14/2019 [employer] Patient Education 2019 Ritani. Follow Up Care 05/31/2022 14:29:12 With:SLADE ALCALA, SANDRA Mina Address: [address] [address] [address]- When: Unknown [facility] 12-21-2022 Hospital Discharge instructions Patient Education [...] Care 05/24/2022 15:04:09 With:Konrad LILLY Address: [address] [employer] [address] [place] [address]- Business (1) When:6 weeks Comments:Call for followup appointment. A bladder scan will be performed at that visit. Poonam Rahman [facility]12-15-2022 Hospital Discharge instructions Follow Up Care 05/25/2022 09:10:49 With:SLADE ALCALA, Konrad Jones, URL Address: [address] [place] [address] [place] [address]- When: Unknown [facility] Radha [id number] NoteHNO ID: [id number] Author: Brittany Sherman MD Service: Urology Author Type: Resident Type: Progress Notes Filed: 05/24/2022 6:56 AM Note Text: [facility] UROLOGY PROGRESS NOTE Name: Taras Hayward Bed: M081 012/M081-12 Date: 05/24/2022 After Hours [facility] Service Pager: [phone] ASSESSMENT AND PLAN Taras Hayward is a [...] Brittany Sherman MD Urology Resident PGY-3 Pager: [phone] For weekend or after hours issues [place] [phone] SUBJECTIVE As above Objective Vital Signs BP 133/79 Pulse 78 Temp 36.2 ?C (97.2 ?F) (Temporal) Resp 18 Ht 190.5 cm (6' 3 ) Wt (!) 160.4 kg (353 lb 9.9 oz) SpO2 97% BMI 44.20 kg/m? Body mass index is 44.2 kg/m?. Input and Output Date 05/23/22 07 - 05/24/22 0659 05/24/22 07 - 05/25/22 0659 Shift 3534-2523 5861-4675 4464-6463 24 Hour Total 6472-0225 1564-7112 5451-6027 24 Hour Total INTAKE PO 2250 6529 427 0084 PO 2250 6876 626 2830 IV 1276 1769 1345 4390 Volume (mL) [...] 0.97 1.02 GLUC 96 144* 143* [facility] [place] NoteHNO ID: [id number] Author: Harsh Coffey MD Service: Urology Author Type: Physician Type: Progress Notes Filed: 05/23/2022 6:06 PM Note Text: [facility] UROLOGY PROGRESS NOTE Name: Taras Hayward Bed: M081 012/M081-12 Date: 05/23/2022 After Hours [facility] Urology Service Pager: [phone] ASSESSMENT AND PLAN Taras Hayward is a [...] cont home tizanidine Jie Hurt MD Resident [facility] [place] [facility] Pager: [phone] For calls on nights and weekends, please page the Urology On-Call pager [phone] 7:48 AM, 05/23/2022 SUBJECTIVE - Feels well [...] site and no other issues. If urine sign maintenance tomorrow, then kramer out for voiding trial [...] Harsh Coffey MD Director, Surgical Stone Disease [facility] Pager [phone] 05/23/2022[facility]12-12-2022 NoteHNO ID: [id number] Author: Jie Hurt MD Service: Urology Author Type: Resident Type: Progress Notes Filed: 05/22/2022 11:09 PM Note Text: [facility] UROLOGY PROGRESS NOTE Name: Taras Hayward Bed: M081 012/M081-12 Date: 05/22/2022 After Hours [facility] Service Pager: [phone] ASSESSMENT AND PLAN Taras Hayward is a [...] cont home tizanidine Jie Hurt MD Resident [facility] [place] [facility] Pager: [phone] For calls on nights and weekends, please page the Urology On-Call pager [phone] 9:34 PM, 05/22/2022 SUBJECTIVE - Feels well [...] PA and lateral recommended when possible. No p[facility]othoraxAccess [facility] [place]12-12-2022 NoteHNO ID: [id number] Author: Francisca Mercado APRN.SHELVER Service: ? Author Type: Nurse Hydrocrane Operator Type: Anesthesia Procedure Notes Filed: 05/22/2022 2:47 PM Note Text: ANESTHESIOLOGY PROCEDURE NOTE PIV General Information Procedure Start Time/Medication Administration: 05/22/2022 1:50 PM Patient Location: OR Staffing SHELVER: Francisca Mercado APRN.SHELVER Performed by: WENCESLAO Preparation Sterility Preparation: hand [...] May 22, 2022 TIME: 2:46 PM CSN: [id number] [facility] [place]12-12-2022 NoteHNO ID: [id number] Author: Francisca Mercado APRN.CRNA Service: ? Author Type: Nurse Hydrocrane Operator Type: Anesthesia Procedure Notes Filed: 05/22/2022 3:05 PM Note Text: ANESTHESIOLOGY PROCEDURE NOTE Airway General Information Procedure Start Time/Medication Administration: 05/22/2022 1:40 PM Patient location during procedure: OR Timeout Performed Pre-procedure: timeout performed Consent Obtained: Yes Patient identity confirmed: arm band and patient Staffing SHELVER: Francisca Mercado APRN.SHELVER Performed by: WENCESLAO Indications and Patient Condition [...] ventilate after succinylcholine given. SIGNATURE: Francisca Mercado APRN.SHELVER PATIENT NAME: Taras Hayward DATE: May 22, 2022 TIME: 2:44 PM CSN: [id number] [facility] [place]12-08-2022 Instructions* Patient Instructions* Cynthia Blackwood APRN.REGASIFICATION PLANT OPERATOR - 05/18/2022 1:46 PM EST PATIENT PREOPERATIVE INSTRUCTIONS No ref. provider found has scheduled you for your procedure at this surgery center: [facility] OR Scheduling Office: [phone] --[address] [place] [address]. Please read below carefully for your personalized [...] Procedures: - YOU MUST HAVE A RESPONSIBLE FILLER SHAKER TAKE YOU HOME. A AIR SEALING TECHNICIAN OR FINGER WAVER CANNOT BE MADE A RESPONSIBLE FILLER SHAKER. - We recommend that a responsible person [...] call the Sunday before. Your surgeon s knitter operator will tell you what time to call the office. - If you have not reached the departmental knitter operator by 5 P.M., call [phone] after 5 P.M. the day before your surgery. Please be aware that emergency situations arise, which may delay or change your surgical time. If this happens, we will notify you as soon as possible and regret any inconvenience. If you already have an Advance Directive, please fax a copy to [phone] or email to for it to be [...] day. Cynthia Blackwood APRN.CNP documented in this encounterPome[facility] Hospital12-08-2022 History and physical note * Cynthia [...] fevers. Neurological: No history of TIA's, stroke, ACID WASHER OPERATOR tumor, impaired sensorium, hemiplegia, paraplegia orquadraplegia. No [...] CAD, chest pain, CHF, DVT/PE, hyperlipidemia, recent MA and murmur/valvular heart disease. GI: No history [...] afterwards, # 2 tab(s), Refills(s) 0, Pharmacy: [facility]/pharmacy #[id number] Start Date: 08/22/19 Status: Ordered [...] or any previous visit (from the past 20924 hour(s)). Assessment Essential hypertension Assessment: Managed with [...] years old or younger STOP-Bang Score: 3 [id number] Score: Age: <65 Sex: male Hypertension history: Yes Diabetes history: Yes [id number] Score: 2 ARISCAT Score: Age: <=50 ARISCAT [...] 1:08 PM PAGER/CONTACT #: [place] [address]-30-2022 Miscellaneous Notes* Telephone Encounter - Della Frederick [...] 10, 2022 11:27 AM documented in this encounterPomerene Hospital11-29-2022 NoteHNO ID: [id number] Author: Harsh Coffey MD Service: ? Author [...] based on size, location, hounsfield units and yjgv-mt-bchqs distance: 2% 3. Ureteroscopy - risks of [...] Harsh Coffey MD Director, Surgical Stone Disease [facility] [place], [facility] Pager [phone] 05/09/2022[facility]11-29-2022 NotePatient Outreach (UROJOSEPHN) TARAS HAYWARD ([id number]) 1970 M Date Time Provider Department 05/09/22 HARSH COFFEY During your visit today, we recorded the following information about you: Allergies As of Date: 05/09/2022 (No Known Allergies) Date Reviewed: 05/09/2022 Reviewed by: Aislinn Mendoza MA - Fully Assessed Visit Diagnosis:Screening for genitourinary condition [Z13.89] Order(s):URINALYSIS, REFLEX MICROSCOPIC [JCL6079] Order #: [id number]. #:[id number] Prescriptions as of 05/12/2022 - azithromycin (ZITHROMAX) [...] afterwards, # 2 tab(s), Refills(s) 0, Pharmacy: [facility]/pharmacy #[id number] Start Date: 08/22/19 Status: Ordered [...] 05/09/2022 Encounter Status:Closed by NONA, PRODUSER on 05/12/22[facility] 05-09-2022 History of Present illness Narrative* Harsh [...] based on size, location, hounsfield units and tmcv-hw-mmupk distance: 2% 3. Ureteroscopy - risks of [...] Harsh Coffey MD Director, Surgical Stone Disease [facility] [place] Pager [phone] 05/09/2022 documented in this encounterPomerene Hospital11-29-2022 Nurse Note* Aislinn Mendoza MA - 05/09/2022 1:02 PM EST LORRAINE Patient was assigned the Dr. Coffey patient instruction module from the [employer] platform. Patient was provided instructions on how to access [employer]. The patient was instructed to call the provider s officewith any questions. Patient states understanding and has the provider s office number/contact information via [employer]. Aislinn Mendoza MA documented in this encounterPomerene Hospital11-02-2022 Hospital Discharge instructions Patient Education 04/12/2022 13:40:41 Kidney Stones, Hbyg-jq-Itcn Kidney Stones Kidney stones are rock-like masses [...] Follow these instructions at home: Medicines Take zmwl-iix-maiawfr and prescription medicines only as told by [...] 11/13/2008 Document Revised: 10/14/2019 Document Reviewed: 10/14/2019 [employer] Patient Education 2020 Ritani. Follow Up Care 03/31/2022 13:35:57 With:SLADE ALCALA, Konrad Jones, URL Address: [facility] [employer] [facility] [address] [place] [address] When: Unknown [facility] 10-19-2022 NoteOPERATIVE NOTE OPERATION DATE: 03/29/2022 [...] placed per urethra and a well lubricated 22-Omani cystourethroscope with 30 degree lens then passed [...] I was then able to pass a 4.8-Omani, 22-30 cm Microvasive double-J stent into the [...] it well. [facility] [...] recommending referral to tertiary care center, either [facility] or [facility], for consideration of percutaneous nephroscopic access for this nearly 3 cm stone. Discussed all this with the patient's family postoperatively and they were in agreement with the plan.[facility] No data available for this section [facility] Evaluation + Plan note Future Appointments Appointment Date:05/26/2022 08:30:00 AM Scheduled Provider: Location:[facility] Appointment Type:Urology CALL PAT FT Appointment Date:05/31/2022 01:00:00 PM Scheduled Provider: Location:[facility] Appointment Type:Urology FT [facility] Evaluation + Plan note Future Appointments Appointment Date:07/19/2022 03:00:00 PM Scheduled Provider:Konrad LILLY MD Location:[facility] Future Appointments Appointment Date:11/28/2022 03:15:00 PM Scheduled Provider:K[facility]ILL[facility]O Office Visit [facility] Evaluation + Plan note Future Appointments Appointment Date:11/28/2022 03:15:00 PM Scheduled Provider:Konrad LILLY MD [facility] Type:URO Office Visit Diagnostic Tests Pending * Urine Culture [facility]19[facility]22 [facility] Future Appointments Appointment Date:05/16/2023 03:00:00 PM Scheduled Provider:[facility] Office Visit [facility] evaluation + Plan note Future Appointments Appointment Date:05/16/2023 03:00:00 PM Scheduled Provider:Konrad LILLY MD Location:[facility] Appointment Type:URO Office Visit Diagnostic Tests Pending * Urine Culture [facility] Future Appointments Appointment Date:01/08/2024 08:20:00 AM Scheduled Provider:DONNA RIVERA PA-C Location:[facility] Appointment Type:URO Office Visit [facility] evaluation + Plan note Future Appointments Appointment Date:11/14/2024 08:20:00 AM Scheduled Provider:DONNA RIVERA PA-C Location:[facility] Appointment Type:URO Office Visit Diagnostic Tests Pending * Urine Culture 05/15/24 [facility] Evaluation + Plan note Future Appointments Appointment Date:11/14/2024 08:20:00 AM Scheduled Provider:DONNA RIVERA PA-C Location:[facility] Appointment Type:URO Office Visit [facility] evaluation note* Diagnosis Nephrolithiasis- Primary Calculus [...] examination of urine documented in this encounter [facility] note* Diagnosis Pre-op evaluation- Primary Preoperative examination, unspecified Essential hypertension Unspecified essential hypertension BMI 40.0-44.9, adult (HCC) Body Mass Index 40.0-44.9, adult Prediabetes Other abnormal glucose Ureteral stent present Nephrolithiasis Calculus of kidney Nephrolithiasis Calculus of kidney documented in this encounter [facility] noteNowestern [facility] [employer] Other Evaluation noteNo InformationNowestern [facility] [employer] Other evaluation note* Diagnosis Onset Date Resolution Status Cerebellar infarct acuteHydrocephalusacuteHypertensionacuteImpaired mobility and activities of daily livingacuteObesity (BMI 35.0-39.9 without comorbidity)acuteS/P CIRCULAR SAW OPERATOR shunt acuteTachycardiaacute [facility] Work Phone: evaluation note* Diagnosis Onset Date Resolution Status Cerebellar infarct acuteDizzinessacuteDVT, popliteal, acuteacuteHydrocephalusacuteHypertensionacute Impaired mobility and activities of daily livingacuteNauseaacuteObesity (BMI 35.0-39.9 without comorbidity)acuteS/P CIRCULAR SAW OPERATOR shuntacuteTachycardiaacute [facility] Work Phone: evaluation noteNo assessment information available [facility] Work Phone: evaluation note* Diagnosis Onset Date Resolution Status Cerebellar infarction with occlusion or stenosis of cerebellar artery acuteCOVID-19acuteElevated cholesterolacute [facility] Work Phone: evaluation note* Diagnosis Onset Date Resolution Status Cerebellar infarction with occlusion or stenosis of cerebellar artery acuteCOVID-19acuteElevated cholesterolacuteCerebral atherosclerosisacuteElevated cholesterolacuteEssential hypertensionacuteIFG (impaired fasting glucose)acute [facility] Work Phone: evaluation note* Diagnosis Onset Date Resolution Status Cerebral atherosclerosis acuteElevated cholesterolacuteEssential hypertensionacuteIFG (impaired fasting glucose)acuteObesityacute [facility] Work Phone: evaluation note* Diagnosis Sequelae, post-stroke- Primary [facility]* Diagnosis Pseudomeningocele- Primary Disorders of meninges, not elsewhere classified S/P CIRCULAR SAW OPERATOR shunt Presence of cerebrospinal fluid drainage device CSF leak Other specified disorder of nervous system documented [facility]* Diagnosis Sequelae, post-stroke- Primary Essential hypertension Unspecified essential hypertension documented in this encounter [facility]* Diagnosis Pseudomeningocele- Primary Disorders of meninges, not elsewhere classified S/P CIRCULAR SAW OPERATOR shunt Presence of cerebrospinal fluid drainage device documented in this encounter [facility]* Diagnosis Onset Date Resolution Status Admit Date Cerebral atherosclerosis acuteJune 2024 8:54amElevated cholesterolacuteJune 2024 8:54am Essential hypertensionacuteJune 2024 8:54amIFG (impaired fasting glucose) [facility] 20[facility] 8:54amScreening for colon canceracuteAt[facility] 2024 8:54am Screening PSA (prostate specific antigen)[facility]20[facility] 8:54amSinus tachycardiaacute[facility] 2024 8:54amWellness examinationacuteAt[facility]2024 8:54am [facility] Work Phone: History general Narrative - Reported* [...] ureteroscopy with stent placement right03/30/2022urgical Historycystoscopy with dnewrwujgre00/2020Surgical Historycystoscopy with insertion of stent left 07/2019Surgical Historyright inguinal rqvzeb3008/03/2015Surgical Historysinus ileuxcx71/2011Surgical ZiykrhtWUK70/2010Surgical Historygastric imjmuq97/2016 Hospitalization HistorySEE SURGICAL HX [facility] [employer] Other History general Narrative - ReportedNortWilkes-Barre [facility] [employer] Other History general Narrative - Reported* Type [...] ureteroscopy with stent placement right2Surgical Historycystoscopy with nktubzpbdfk41/2020Surgical Historycystoscopy with insertion of stent left 07/2019Surgical Historyright inguinal hsuqfs2808/03/2015Surgical Historysinus ylumnrj83/2011Surgical AxzavbdIUM34/2011Surgical Historygastric vbmguf20/2016 Hospitalization HistorySEE SURGICAL [facility] [employer] Other History general Narrative - Reported* Type [...] ureteroscopy with stent placement right03/30/2022urgical Historycystoscopy with sxauiloahbw96/2020Surgical Historycystoscopy with insertion of stent left 07/2019Surgical Historyright inguinal qkkyfs0608/03/2015Surgical Historysinus qwabzgz65/2011Surgical ChnjpsgWRT86/2011Surgical Historygastric cetwuy81/2016 Surgical HistoryC1 Laminectomy12/2022Surgical HistorySuboccipital craniectomy 12/2022Surgical HistoryFrontal ventricular drain12/2022Hospitalization HistorySEE SURGICAL HX [place] Other History general Narrative - Reported* Type [...] ureteroscopy with stent placement right03/30/2022urgical Historycystoscopy with oapazqjylye47/2020Surgical Historycystoscopy with insertion of stent left 07/2019Surgical Historyright inguinal gqixpy5508/03/2015Surgical Historysinus hznsefp68/2011Surgical DxrzydvMSE18/2011Surgical Historygastric aqrfnr58/2016 Surgical HistoryC1 Laminectomy12/2022Surgical HistorySuboccipital craniectomy 12/2022Surgical HistoryFrontal ventricular drain12/2022Surgical HistoryVP shunt placement12/2022Hospitalization HistorySEE SURGICAL HX [place] Other Hospital Discharge instructions No data available for this section [facility] Additional Instructions Have sutures removed in 7 days. Apply bacitracin twice per day. Return for any redness, fever, vomiting, Headache, vision changes.[facility] Work Phone: InstructionsNot on filedocumented in this encounter [facility] SystemInstructionsNot on filedocumented in this encounter [facility] SystemInstructionsNot on filedocumented in this encounter [facility] SystemInstructionsNot on filedocumented in this encounter [facility] System[facility] note No data available for this section [facility] Reason for referral (narrative)* Outpatient Procedure (Routine) - ClosedSpecialtyDiagnoses / ProceduresReferred By ContactReferred To ContactPROMEDICA [facility] Diagnoses Pre-op evaluation Procedures ECG COMPLETE ECG ROUTINE ECG W/LEAST 12 LDS W/I&R Cynthia Blackwood APRN.REGASIFICATION PLANT OPERATOR [address] [place] [address] [facility] [place] [address] [place] [address] Referral IDStatusReasonStart DateExpiration DateVisits RequestedVisits [id number] Auto-Generated Referral [facility] for referral (narrative)No reason for referral information availableUk Healthcare Work Phone: Reason for Referral SpecialtyDiagnoses / ProceduresReferred By ContactReferred To ContactRadiology Diagnoses S/P CIRCULAR SAW OPERATOR shunt Procedures CT brain with and without contrast Darrell Marin PA [address] [address] Referral IDStatusReasonStart DateExpiration DateVisits RequestedVisits [id number] Review/[id number] / ProceduresReferred By ContactReferred To Contact Diagnoses Nephrolithiasis Family history of nephrolithiasis BMI 40.0-44.9, adult (HCC) History of gastric bypass Essential hypertension Prediabetes Bladder spasms Ureteral stent present Procedures REFER TO PACC - PRE ANESTHESIA CONSULTATION CLINIC OFFICE/OUTPATIENT [facility] MDM 60-74 MINUTES Harsh Coffey MD [address] [place] [address] Referral IDStatusReasonStart DateExpiration DateVisits RequestedVisits [id number] PCP Requested Referral / Summary Purpose Family [...] 03 9:07am TypeDate RecordedPatient RepresentativeExplanationDurable Power of Supervisor Car [employer]ations 01/05/2023 3:03 PMCode StatusDate ActivatedDate InactivatedCommentsFull Code [...] living Obesity (BMI 35.0-39.9 without comorbidity) S/P CIRCULAR SAW OPERATOR shunt Tachycardia Chief Complaint left cerebellar CVA s/p Suboccipital craniectomy/c fallReason for VisitCerebellar infarct Dizziness DVT, popliteal, acute Hydrocephalus Hypertension Impaired mobility and activities of daily living Nausea Obesity (BMI 35.0-39.9 without comorbidity) S/P CIRCULAR SAW OPERATOR shunt Tachycardia Chief Complaint Post stroke Chief Complaint Post stroke [facility]ness Amb Documentation [phone] COVID + SundayReason for VisitCerebellar infarction with occlusion or stenosis of cerebellar artery COVID-19 Elevated cholesterol Chief Complaint Amb Documentation [phone] COVID + Sunday 3 month follow upReason [...] 2024 End: December 22, 2024Donna Davila APRN PIT STEWARD-CAttending ProviderActive Start: December 22, 2024 End: December [...] 2024 End: December 22, 2024Donna Davila APRN PIT STEWARD-CAttending ProviderActive Start: December 22, 2024 End: December [...] Terry , APRNOther ProviderActiveBrandy S Gama , PIT STEWARD-COther Provider ActiveSaemma Wei , DIJA-NBZ-QBpeta ProviderActiveVianey Avilez , LPNOther ProviderActiveGerardo Miranda MDOther ProviderActiveJayee Pizano , PIT STEWARD-C Other ProviderActiveMohamed Maddie Argueta MDOther ProviderActiveTony Fuentes MDOther ProviderActiveKenkenny Rutledge , CSTFAOther ProviderActiveThom Zayas MDOther ProviderActiveJeneir Mckeon , PIT STEWARD-COther ProviderActiveLen Lopez MDOther ProviderActiveBhavya Ferrer MDOther ProviderActive Team Status: Inactive Member Role Status Dates Ashely Torres MD Emergency Provider Active Jeff Topete ProviderActiveTeam MemberRelationshipSpecialty Start DateEnd Date Awais Garcia, DO [address] [place] [address] PCP - GeneralInternal Vrcjwlxq12/2/22Team MemberRelationshipSpecialtyStart Date End Date Awais Garcia, DO [address] [place] [address] PCP - GeneralPhoenix Memorial Hospitalnal Oykvvoou10/2/22 Team Status: Active Member Role Status Dates PHYSICIAN NO FAMILY Primary Care Provider Active Rory Montero Provider, Attending ProviderActive Team Status: Inactive Member Role Status Dates wAais Garcia DO Primary Care Provider Active Kendal [...] MemberRelationshipSpecialtyStart DateEnd Date Awais Garcia DO [address] [place] [address] PCP - GeneralInternal Medicine12/13/22Team MemberRelationshipSpecialtyStart Date End Date Awais Garcia, DO [address] [place] [address] PCP - GeneralInternal Medicine12/13/22Team MemberRelationshipSpecialtyStart Date End Date Awais Garcia DO [address] [place] [address] PCP - GeneralInternal Medicine12/13/22Te MemberRelationshipSpecialtyStart Date End Date Awais Garcia DO [address] [place] [address] PCP - GeneralInternal Medicine12/13/22Te MemberRelationshipSpecialtyStart Date End Date Awais Garcia DO [address] [place] [address] PCP - GeneralPhoenix Memorial Hospitalnal Medicine12/13/22Te MemberRelationshipSpecialtyStart Date End Date Awais Garcia DO [address] [place] [address] PCP - GeneralInternal Medicine12/13/22 Team Status: Inactive [...] or prosecute any alcohol or drug abuse patient.[facility] HospitalIn the event this information is protected by the Federal Confidentiality of Alcohol and Drug Abuse Patient Records regulations: The Federal rules restrict any use of the information to criminally investigate or prosecute any alcohol or drug abuse patient.[facility] HospitalIn the event this information is protected by the Federal Confidentiality of Alcohol and Drug Abuse Patient Records regulations: The Federal rules restrict any use of the information to criminally investigate or prosecute any alcohol or drug abuse patient.[facility] HospitalIn the event this information is protected by the Federal Confidentiality of Alcohol and Drug Abuse Patient Records regulations: The Federal rules restrict any use of the information to criminally investigate or prosecute any alcohol or drug abuse patient.[facility] Reason for Visit (unrecogniz ed section and content) ReasonCommentsConsultReasonCommentsAppointmentReasonCommentsPre-Op VisitReason CommentsFollow-up3 Month-CIRCULAR SAW OPERATOR Shunt, Review CT Brain ResultsReasonComments Follow-up3 mth vp compliance shunt (unrecognized sect ion and content) No Status Records FoundNo Status Records FoundNo Status Records FoundNo Status Records FoundNo Status Records FoundNo Status Records FoundNo Status Records FoundNo Status Records Found INFORMATION SOURCE (unrecogn ized section and content) DATE CREATED AUTHOR 06/11/2022 [facility] DATE CREATED AUTHOR AUTHOR'S ORGANIZ ATION 08/12/2022 [facility] DATE CREATED AUTHOR AUTHOR'S ORGANIZ ATION 06/20/2023 [facility] DATE CREATED AUTHOR AUTHOR'S ORGANIZ ATION 11/30/2023 [facility] DATE CREATED AUTHOR AUTHOR'S ORGANIZ ATION 12/12/2023 [facility] DATE CREATED AUTHOR AUTHOR'S ORGANIZ ATION 05/21/2024 [facility] DATE CREATED AUTHOR AUTHOR'S ORGANIZ ATION 05/22/2024 [facility] DATE CREATED AUTHOR AUTHOR'S ORGANIZ ATION 11/08/2024 [facility] Goals (unrecognized section and content) Goals may [...] BE BASED ON THE PRIMARY CLINICAL RECORDS. [employer] [facility]. provides no warranty or guarantee of the accuracy or completeness of information in this document.
--- NOTE | 2025-05-12 13:12 | CT_ITS ---
The [address] [address] Patient Name: ELYSSA DAVIS MRN: [id number] date: 1970 Sex: M Assigned Patient [facility]: [facility] Current Patient Location: RAD Accession/Order Number: [id number] Exam Date: 05/12/2025 13:00 Report Date: 05/12/2025 15:43 At the request of: ARIE GARCIA DO Procedure: CT abdomen pelvis w con CT ABDOMEN AND PELVIS WITH INTRAVENOUS CONTRAST: CLINICAL HISTORY: Gross Hematuria, Right Lower Quadrant Abdominal Pain COMPARISON: KUB 10/19/2023 TECHNIQUE: Spiral images were obtained through the abdomen and pelvis following the administration of intravenous contrast. This CT exam was performed using one or more following dose reduction techniques: Automated exposure control, adjustment of the mA and/or kV according to patient size, or use of iterative reconstruction technique. FINDINGS: Lung Bases: [Minor hypoventilatory changes atelectasis greatest left lung base. Organs:Delayed excretion right kidney. Evidence of right sided lower pole calculi up to 9 mm in size. Minimal right perinephric fat stranding noted. No ureteral calculi. 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 Unremarkable left renal enhancement. No left-sided hydronephrosis or nephrolithiasis. Otherwise liver, spleen, gallbladder, adrenals, and pancreas are unremarkable. GI: Mild retained stool the colon. No bowel obstruction. Prior gastric surgery. Colonic diverticulosis.[No CT findings acute appendicitis Pelvis:[Trace gas within the bladder possibly related to recent instrumentation. Prostate unremarkable.] Peritoneum/Retroperitoneum:No suspicious mediastinal or hilar uptake. No free air or free fluid. Mild plaque involving the nonaneurysmal aorta and mesenteric vessels.[ Abd wall/Bones:Degenerative changes lower lumbar spine.[ CT/CT abdomen pelvis w con IMPRESSION: Delayed excretion right kidney with right lower pole calculi. 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 No ureteral calculi identified. Otherwise negative acute lung process or bowel obstruction. Impression dictated by: Odin Ortiz M.D. 05/12/2025 3:43 PM Dictation Location: [place] [address] Electronically authenticated by: [id number] Date: 05/12/2025 15:43
== END 2025-05-12 11:20 | disposition home or self-care (01) ==
LOC: RAD 11:23
PROVIDERS: PCP Internal Medicine; Visit Provider Internal Medicine
DX: R31.0 Gross hematuria (principal); R10.31 Right lower quadrant pain; Z87.442 Personal history of urinary calculi; N28.89 Other specified disorders of kidney and ureter
CPT/HCPCS: 74177; Q9967